=== PATIENT | male | born 1970 | race Caucasian/White ===

== ENCOUNTER 2020-03-12 16:21 | Inpatient (IN) | payer OTHER, SELFPAY ==
[2020-03-14 02:54] VITALS: BMI 10.1
--- NOTE | 2020-03-15 | US_ITS ---
EXAMINATION: NONINVASIVE ASSESSMENT OF THE ARTERIES OF BOTH LOWER EXTREMITIES WITH PVR EXAM AND BILATERAL LOWER EXTREMITY DUPLEX Nathan Byrd MD CLINICAL INFORMATION: Nonhealing ulcer TECHNIQUE: Ankle pulse volume recordings, ankle pressure measurements and ankle brachial indices were obtained of the lower extremity arterial system bilaterally in addition to duplex Doppler techniques with wave form analysis and measurement of velocities in the common femoral, profunda femoral, superficial femoral, popliteal and tibial arteries. The study was performed only at rest. COMPARISON: None FINDINGS: AT REST: Right Le. The right ankle-brachial index is: 0.98 * >0.97-1.25 = normal - no significant arterial disease * 0.75-0.96 = mild peripheral arterial disease * 0.5-0.74 = moderate peripheral arterial disease * <0.50 = severe peripheral arterial disease 2. Right ankle pressure: normal. 3. Right ankle PVR waveform: normal. 4. Right direct duplex Doppler findings: Velocities in cm/sec and phasicity as well as the presence of plaque are reported below. Minimal plaque is present. Normal triphasic flow noted throughout with the exception of the tibial vessels that demonstrate biphasic flow. Common Femoral: 90 Profunda Femoris: 68 Proximal SFA: 95 Mid SFA: 86 Distal SFA: 73 Popliteal: 119 Tibial: 20 Left Le. The left ankle-brachial index is: 1.10 * >0.97-1.25 = normal - no significant arterial disease * 0.75-0.96 = mild peripheral arterial disease * 0.5-0.74 = moderate peripheral arterial disease * <0.50 = severe peripheral arterial disease 2. Left ankle pressure: normal. 3. Left ankle PVR waveform: normal. 4. Left direct duplex Doppler findings: Velocities in cm/sec and phasicity as well as the presence of plaque are reported below. Minimal plaque is present. Normal triphasic flow noted throughout with the exception of the tibial vessels that demonstrate biphasic flow. Common Femoral: 119 Profunda Femoris: 72 Proximal SFA: 80 Mid SFA: 106 Distal SFA: 81 Popliteal: 65 Tibial: 30 IMPRESSION: There is no evidence of any hemodynamically significant lower extremity arterial disease by pressure, waveform or duplex Doppler criteria at rest.
[2020-03-15 04:00] VITALS: BP 140/76; PULSE 67; RESP 18; TEMP 36.7; O2SAT 98
[2020-03-15] MEDS: Heparin Sodium,Porcine 5,000 UNIT/ML VIAL 5000 UNIT SUBCUT (06:10)
[2020-03-15] MEDS: Doxycycline Hyclate 100 MG in 0.9 % Sodium Chloride 250 ML 250 MG IV ×2 (06:10→17:27)
[2020-03-15 07:35] LABS: Glucose, Whole Blood 85 mg/dL (60-115)
[2020-03-15 08:00] VITALS: BP 118/73; PULSE 81; RESP 18; TEMP 36.6; O2SAT 98
--- NOTE | 2020-03-15 09:15 | MHC.CM.PN ---
CM received call from Lauri at [facility] who is willing to accept patient. Manually faxed referral since they don't have full capability in [employer]. . CM will continue to follow patient for discharge needs.
--- NOTE | 2020-03-15 11:02 | P.CONNP_ITS ---
History of Present Illness Reason for Consult Consult date: 03/15/20 Reason for consult: CKD Chief Complaint Chief complaint: Osteomyelitis History of Present Illness Narrative: Raheem is 49/M had ESRD due to diabetic nephropathy. He received a LURD from in January 2017. He has done well with stable creat of 1.5 mg/dl. He has no arthralgias, rash or fevers. BP is well controlled on lisinopril 10mg QD and amlodipine 5mg QD. immunospuression , he is on MMF 180mg 3 tabs BID, and tacro 3-3. Admitted with foot ulcers Cr was 1.58 and has decreased to 1.2 with hydration Review of Systems Review of Systems Yes all other systems are reviewed and are negative Constitutional: Denies chills Reports Normal hearing present Cardiovascular: Denies chest pain at rest and Denies dyspnea Respiratory: Denies dyspnea Gastrointestinal: Denies nausea Reports Normal hearing present [facility] Social History Social History (Updated 03/15/20 @ 10:57 by Roverto Nowak MD) Smoking Status: Never smoker Currently Displaying Signs/Symptoms of Drug Intoxication Withdrawal: No Advance Directives: No Advance Directives Information Provided: No Do you have thoughts of harming others: None Do you have a plan to hurt others: No Plan Meds Allergies Allergy/AdvReac Type Severity Reaction Status Date / Time No Known Allergies* Allergy Uncoded 03/12/20 12:15 Home Medications Medication Instructions Recorded Confirmed Type amlodipine [Norvasc] 5 mg PO DAILY 03/14/20 03/14/20 History aspirin [Aspirin Low Dose] 81 mg PO DAILY 03/14/20 03/14/20 History calcifediol [Rayaldee] 30 mcg PO BEDTIME 03/14/20 03/14/20 History clotrimazole-betamethasone 1 applic TOPICAL BID 03/14/20 03/14/20 History insulin aspart U-100 [Novolog See Protocol SUBCUT TID 03/14/20 03/14/20 History Flexpen U-100 Insulin] insulin glargine [Lantus Solostar 5 unit SUBCUT DAILY@1200 03/14/20 03/14/20 History U-100 Insulin] insulin glargine [Lantus Solostar 28 unit SUBCUT DAILY@1800 03/14/20 03/14/20 History U-100 Insulin] lisinopril 20 mg PO DAILY 03/14/20 03/14/20 History mycophenolate sodium 540 mg PO BID 03/14/20 03/14/20 History tacrolimus [Prograf] 4 mg PO BID 03/14/20 03/14/20 History Physical Exam Vital Signs and I&O: Vital Signs Temp 97.9 F 03/15/20 08:00 Pulse 81 03/15/20 08:00 Resp 18 03/15/20 08:00 BP 118/73 03/15/20 08:00 Pulse Ox 98 03/15/20 08:00 Intake & Output 03/14/20 03/15/20 03/15/20 18:59 06:59 18:59 Intake Total 240 / 240 490 / 490 Balance 240 / 240 490 / 490 Intake: Intake, Oral Amount 240 / 240 240 / 240 Intake, IV Amount 250 / 250 Doxycycline Hyclate 100 mg In 0 250 / 250 .9 % Sodium Chloride 250 ml @ 250 mls/hr IV Q12H [facility] Rx#: [id number] Other: Breakfast % Eaten 100% Urine Bathroom Body Mass Index 10.1 Const General: cooperative Orientation/consciousness: oriented to person HENMT Head: Yes normal to inspection Chest Chest palpation & inspection: normal inspection of the chest Resp Effort & Inspection: normal respiratory effort Cardio Jugular venous distension: no JVD Heart sounds: no murmurs GI Inspection: Yes normal to inspection Auscultation: normal bowel sounds Neuro General: oriented to person Cranial nerves: Yes Normal hearing present Motor exam (neuro): no asterixis Results Lab Results Result Diagrams: 03/16/20 05:14 03/16/20 05:14 Lab results: Chemistry 03/12/20 03/13/20 03/14/20 13:19 05:29 05:28 Sodium 137 137 136 Potassium 4.7 4.3 4.2 BUN 20 H 18 H 21 H Creatinine 1.58 H 1.37 1.24 Calcium 8.4 8.8 Hematology 03/12/20 03/13/20 03/14/20 13:19 05:29 05:28 WBC 7.9 7.9 8.1 Hgb 13.3 L 13.5 L 13.7 L Plt Count 233 217 230 Urinalysis 03/12/20 22:58 Urine Color YELLOW Urine Appearance CLEAR Urine pH 6.0 Ur Specific [place] 1.025 Urine Protein TRACE Urine Glucose (UA) NEG Urine Ketones NEG Urine Blood NEG Urine Nitrite NEG Assessment and Plan (1) ESRD (end stage renal disease): Status: Inactive (2) Osteomyelitis: Status: Acute On antibiotics pe rID (3) Kidney transplant recipient: Problem details: Cr close to baseline Status: Chronic Tacro level ordered Avoid nephrotoxins (4) Diabetes 1.5, managed as type 2: Status: Acute (5) HTN (hypertension): Status: Acute BP acceptable No [facility]
[2020-03-15] MEDS: lisinopriL 20 MG TABLET PO (11:04)
[2020-03-15] MEDS: amLODIPine Besylate 5 MG TABLET PO (11:04)
[2020-03-15] MEDS: Tacrolimus 1 MG CAPSULE 4 MG PO ×2 (11:05→23:10)
[2020-03-15] MEDS: Aspirin Enteric Coated 81 MG TABLET.DR PO (11:05)
[2020-03-15] MEDS: 0.9 % Sodium Chloride Flush 3 ML SYRINGE 2 ML IVFLUSH ×3 (11:06→16:31)
[2020-03-15] MEDS: Mycophenolate Sodium 180 MG TABLET.DR 540 MG PO ×2 (11:13→23:00)
[2020-03-15 11:19] LABS: Glucose, Whole Blood 126 mg/dL (60-115)
[2020-03-15 12:00] VITALS: BP 105/70; PULSE 79; RESP 18; TEMP 36.6; O2SAT 98
[2020-03-15] MEDS: Insulin Glargine,Hum.rec.anlog 100 UNIT/ML 10 ML VIAL SUBCUT (12:24)
--- NOTE | 2020-03-15 13:56 | HO.PM.IMPN ---
Subjective Subjective Date of Service: 03/15/20 Interval History: patient admitted for bilateral toe ulceration patient noted worsening of left big toe swelling patient and family concern about continued use of antibiotic and awaiting for nephrology evaluation, patient denies foot pain denies any fever chills no decrease in says stations no other acute issues overnight. Review of Systems Review of systems General patient denies fever chills CVS no chest pain, no palpitation Gastrointestinal no abdominal pain, no nausea vomiting Physical Exam Vital Signs and I&O and Narrative: Vital Signs and I&O: Vital Signs Temp 97.8 F 03/15/20 12:00 Pulse 79 03/15/20 12:00 Resp 18 03/15/20 12:00 BP 105/70 03/15/20 12:00 Pulse Ox 98 03/15/20 12:00 Intake & Output 03/14/20 03/15/20 03/15/20 18:59 06:59 18:59 Intake Total 240 / 240 490 / 490 Balance 240 / 240 490 / 490 Intake: Intake, Oral Ray unt 240 / 240 240 / 240 Intake, IV Amoun t 250 / 250 Doxycycline Hy clate 100 mg In 0 250 / 250 .9 % Sodium Ch loride 250 ml @ 250 mls/hr IV Q12H [facility] Rx#: [id number] Other: Breakfast % Eate n 100% Lunch % Eaten 100% Urine Bathroom Body Mass Index 10.1 Constitutional Awake and Alert, No apparent distress Neck Normal inspection, Supple Cardiovascular RRR, S1 S2 Respiratory Lungs clear, Normal lung expansion Gastrointestinal Normal bowel sounds, Non tender Left extremities Left big toe swollen , no worsening swelling no fluctuation, no open ulcers, dry skin and scabs Skin Warm/Dry, No rash Neurological Alert & oriented x3, No focal deficit Objective Data Current Medications Generic Name Dose Route Start Last Admin Trade Name Freq PRN Reason Stop Dose Admin Acetaminophen 650 mg 03/15/20 00:00 Acetaminophen 325 Mg Tablet PO Q6H PRN FEVER/PAIN,MILD (SCALE 1-3) Amlodipine Besylate 5 mg 03/15/20 09:00 03/15/20 11:04 Amlodipine Besylate 5 Mg Tablet PO 5 mg DAILY VERNA Administration Protocol Aspirin 81 mg 03/15/20 09:00 03/15/20 11:05 Aspirin Enteric Coated 81 Mg Tablet. PO 81 mg DAILY VERNA Administration Heparin Sodium (Porcine) 5,000 unit 03/15/20 01:00 03/15/20 06:10 Heparin Sodium,Porcine 5,000 Unit/Ml Vial SUBCUT 5,000 unit Q12H [facility] Administration Doxycycline Hyclate 100 mg/ 250 mls @ 250 mls/hr 03/15/20 06:00 03/15/20 07:56 Sodium Chloride IV Infused Q12H [facility] Infusion Cefepime HCl 1 gm/ Sodium 50 mls @ 100 mls/hr 03/15/20 14:00 Chloride IV Q24H [facility] Insulin Glargine 5 unit 03/15/20 12:00 03/15/20 12:24 Insulin Glargine,Hum.Rec.Anlog 100 Unit/Ml 10 Ml Vial SUBCUT 5 unit DAILY@1200 [facility] Administration Insulin Glargine 28 unit 03/15/20 18:00 Insulin Glargine,Hum.Rec.Anlog 100 Unit/Ml 10 Ml Vial SUBCUT DAILY@1800 [facility] Insulin Human Lispro 0 unit 03/15/20 08:00 03/15/20 12:24 Insulin Lispro 100 Unit/Ml 3 Ml Vial SUBCUT Not Given QIDACHS [facility] Protocol Lisinopril 20 mg 03/15/20 09:00 03/15/20 11:04 Lisinopril 20 Mg Tablet PO 20 mg DAILY [facility] Administration Mycophenolate Sodium 540 mg 03/15/20 09:00 03/15/20 11:13 Mycophenolate Sodium 180 Mg Tablet. PO 540 mg BID [facility] Administration Patient Own 1 each 03/15/20 21:00 Medication ( PO Calcifediol 30 Mcg) BEDTIME [facility] Ondansetron HCl 4 mg 03/15/20 00:00 Ondansetron Hcl 4 Mg/2 Ml Vial IVPUSH Q8H PRN Nausea and Vomiting Senna 17.2 mg 03/15/20 00:00 Sennosides 8.6 Mg Tablet PO DAILY PRN Constipation Sodium Chloride 2 ml 03/15/20 00:00 03/15/20 11:06 0.9 % Sodium Chloride Flush 3 Ml Syringe IVFLUSH 2 ml QSHIFT [facility] Administration Tacrolimus 4 mg 03/15/20 09:00 03/15/20 11:05 Tacrolimus 1 Mg Capsule PO 4 mg BID [facility] Administration Labs CBC & Chem 7: 03/14/20 05:28 03/14/20 05:28 Labs: Laboratory Results - last 24 hr 03/12/20 03/12/20 03/12/20 13:19 13:19 14:00 MCV 90.6 MCH 29.8 MCHC 32.9 RDW Coeff of Gabriel 12.6 Plt Count 233 MPV 11.8 Immature Gran % (Auto) 3.2 H Neut % (Auto) 66.8 Lymph % (Auto) 14.7 L [place] % (Auto) 13.8 H Eos % (Auto) 1.1 Baso % (Auto) 0.4 Abs Immat Gran (auto) 0.25 H Absolute Lymphs (auto) 1.2 Absolute Monos (auto) 1.1 Absolute Eos (auto) 0.1 Absolute Basos (auto) 0.0 Absolute Nucleated RBC 0.000 Nucleated RBC % (auto) 0.0 Absolute Neutrophils 5.3 Bicarbonate 26 Anion Gap 11 L Estimated Creat Clear 65.0 Est GFR (Non-Af Amer) 47 POC Glucose Random Glucose 221 H Fasting Glucose Lactic Acid 0.9 Calcium Total Bilirubin 0.6 Direct Bilirubin 0.2 AST 12 ALT 13 Alkaline Phosphatase 107 Total Protein 7.3 Albumin 3.9 Lipase 49 Urine Color Urine Appearance Urine pH Ur Specific [place] Urine Protein Urine Glucose (UA) Urine Ketones Urine Blood Urine Nitrite Urine WBC (Auto) Nasal Screen MRSA (PCR) Nasal S. aureus Screen Nasal MRSA/S.aureus Interp Tacrolimus 03/12/20 03/12/20 03/12/20 17:37 20:57 21:17 MCV MCH MCHC RDW Coeff of Gabriel Plt Count MPV Immature Gran % (Auto) Neut % (Auto) Lymph % (Auto) Addison % (Auto) Eos % (Auto) Baso % (Auto) Abs Immat Gran (auto) Absolute Lymphs (auto) Absolute Monos (auto) Absolute Eos (auto) Absolute Basos (auto) Absolute Nucleated RBC Nucleated RBC % (auto) Absolute Neutrophils Bicarbonate Anion Gap Estimated Creat Clear Est GFR (Non-Af Amer) POC Glucose 150 H 171 H Random Glucose Fasting Glucose Lactic Acid Calcium Total Bilirubin Direct Bilirubin AST ALT Alkaline Phosphatase Total Protein Albumin Lipase Urine Color Urine Appearance Urine pH Ur Specific [place] Urine Protein Urine Glucose (UA) Urine Ketones Urine Blood Urine Nitrite Urine WBC (Auto) Nasal Screen MRSA (PCR) NEGATIVE Nasal S. aureus Screen POSITIVE Nasal MRSA/S.aureus Interp SEE NOTE Tacrolimus 03/12/20 03/13/20 03/13/20 22:58 05:29 05:29 MCV 90.3 MCH 29.2 MCHC 32.4 RDW Coeff of Gabriel 12.7 Plt Count 217 MPV 11.9 Immature Gran % (Auto) 2.5 H Neut % (Auto) 59.6 Lymph % (Auto) 19.5 L [place]ison % (Auto) 16.0 H Eos % (Auto) 2.0 Baso % (Auto) 0.4 Abs Immat Gran (auto) 0.20 H Absolute Lymphs (auto) 1.5 Absolute Monos (auto) 1.3 H Absolute Eos (auto) 0.2 Absolute Basos (auto) 0.0 Absolute Nucleated RBC 0.000 Nucleated RBC % (auto) 0.0 Absolute Neutrophils 4.7 Bicarbonate 24 Anion Gap 11 L Estimated Creat Clear 74.2 Est GFR (Non-Af Amer) 55 POC Glucose Random Glucose Fasting Glucose 127 H Lactic Acid Calcium 8.4 Total Bilirubin Direct Bilirubin AST ALT Alkaline Phosphatase Total Protein Albumin Lipase Urine Color YELLOW Urine Appearance CLEAR Urine pH 6.0 Ur Specific [place] 1.025 Urine Protein TRACE Urine Glucose (UA) NEG Urine Ketones NEG Urine Blood NEG Urine Nitrite NEG Urine WBC (Auto) NEG Nasal Screen MRSA (PCR) Nasal S. aureus Screen Nasal MRSA/S.aureus Interp Tacrolimus 03/13/20 03/13/20 03/13/20 07:57 11:37 16:47 MCV MCH MCHC RDW Coeff of Gabriel Plt Count MPV Immature Gran % (Auto) Neut % (Auto) Lymph % (Auto) [place] % (Auto) Eos % (Auto) Baso % (Auto) Abs Immat Gran (auto) Absolute Lymphs (auto) Absolute Monos (auto) Absolute Eos (auto) Absolute Basos (auto) Absolute Nucleated RBC Nucleated RBC % (auto) Absolute Neutrophils Bicarbonate Anion Gap Estimated Creat Clear Est GFR (Non-Af Amer) POC Glucose 114 133 H 133 H Random Glucose Fasting Glucose Lactic Acid Calcium Total Bilirubin Direct Bilirubin AST ALT Alkaline Phosphatase Total Protein Albumin Lipase Urine Color Urine Appearance Urine pH Ur Specific [place] Urine Protein Urine Glucose (UA) Urine Ketones Urine Blood Urine Nitrite Urine WBC (Auto) Nasal Screen MRSA (PCR) Nasal S. aureus Screen Nasal MRSA/S.aureus Interp Tacrolimus 03/13/20 03/14/20 03/14/20 21:32 05:28 05:28 MCV 89.5 MCH 29.3 MCHC 32.7 RDW Coeff of Gabriel 12.6 Plt Count 230 MPV 12.4 Immature Gran % (Auto) 2.7 H Neut % (Auto) 59.4 Lymph % (Auto) 21.2 [place] % (Auto) 14.3 H Eos % (Auto) 2.0 Baso % (Auto) 0.4 Abs Immat Gran (auto) 0.22 H Absolute Lymphs (auto) 1.7 Absolute Monos (auto) 1.2 Absolute Eos (auto) 0.2 Absolute Basos (auto) 0.0 Absolute Nucleated RBC 0.000 Nucleated RBC % (auto) 0.0 Absolute Neutrophils 4.8 Bicarbonate 23 Anion Gap 11 L Estimated Creat Clear 82.0 Est GFR (Non-Af Amer) > 60 POC Glucose 184 H Random Glucose 110 D Fasting Glucose Lactic Acid Calcium 8.8 Total Bilirubin Direct Bilirubin AST ALT Alkaline Phosphatase Total Protein Albumin Lipase Urine Color Urine Appearance Urine pH Ur Specific [place] Urine Protein Urine Glucose (UA) Urine Ketones Urine Blood Urine Nitrite Urine WBC (Auto) Nasal Screen MRSA (PCR) Nasal S. aureus Screen Nasal MRSA/S.aureus Interp Tacrolimus 03/14/20 03/14/20 03/14/20 07:15 11:17 16:29 MCV MCH MCHC RDW Coeff of Gabriel Plt Count MPV Immature Gran % (Auto) Neut % (Auto) Lymph % (Auto) [place] % (Auto) Eos % (Auto) Baso % (Auto) Abs Immat Gran (auto) Absolute Lymphs (auto) Absolute Monos (auto) Absolute Eos (auto) Absolute Basos (auto) Absolute Nucleated RBC Nucleated RBC % (auto) Absolute Neutrophils Bicarbonate Anion Gap Estimated Creat Clear Est GFR (Non-Af Amer) POC Glucose 118 H 161 H 146 H Random Glucose Fasting Glucose Lactic Acid Calcium Total Bilirubin Direct Bilirubin AST ALT Alkaline Phosphatase Total Protein Albumin Lipase Urine Color Urine Appearance Urine pH Ur Specific [place] Urine Protein Urine Glucose (UA) Urine Ketones Urine Blood Urine Nitrite Urine WBC (Auto) Nasal Screen MRSA (PCR) Nasal S. aureus Screen Nasal MRSA/S.aureus Interp Tacrolimus 03/14/20 03/15/20 03/15/20 21:20 06:00 07:32 MCV MCH MCHC RDW Coeff of Gabriel Plt Count MPV Immature Gran % (Auto) Neut % (Auto) Lymph % (Auto) [place] % (Auto) Eos % (Auto) Baso % (Auto) Abs Immat Gran (auto) Absolute Lymphs (auto) Absolute Monos (auto) Absolute Eos (auto) Absolute Basos (auto) Absolute Nucleated RBC Nucleated RBC % (auto) Absolute Neutrophils Bicarbonate Anion Gap Estimated Creat Clear Est GFR (Non-Af Amer) POC Glucose 127 H 85 Random Glucose Fasting Glucose Lactic Acid Calcium Total Bilirubin Direct Bilirubin AST ALT Alkaline Phosphatase Total Protein Albumin Lipase Urine Color Urine Appearance Urine pH Ur Specific [place] Urine Protein Urine Glucose (UA) Urine Ketones Urine Blood Urine Nitrite Urine WBC (Auto) Nasal Screen MRSA (PCR) Nasal S. aureus Screen Nasal MRSA/S.aureus Interp Tacrolimus Not Rcvd 03/15/20 11:16 MCV MCH MCHC RDW Coeff of Gabriel Plt Count MPV Immature Gran % (Auto) Neut % (Auto) Lymph % (Auto) [place] % (Auto) Eos % (Auto) Baso % (Auto) Abs Immat Gran (auto) Absolute Lymphs (auto) Absolute Monos (auto) Absolute Eos (auto) Absolute Basos (auto) Absolute Nucleated RBC Nucleated RBC % (auto) Absolute Neutrophils Bicarbonate Anion Gap Estimated Creat Clear Est GFR (Non-Af Amer) POC Glucose 126 H Random Glucose Fasting Glucose Lactic Acid Calcium Total Bilirubin Direct Bilirubin AST ALT Alkaline Phosphatase Total Protein Albumin Lipase Urine Color Urine Appearance Urine pH Ur Specific [place] Urine Protein Urine Glucose (UA) Urine Ketones Urine Blood Urine Nitrite Urine WBC (Auto) Nasal Screen MRSA (PCR) Nasal S. aureus Screen Nasal MRSA/S.aureus Interp Tacrolimus
--- NOTE | 2020-03-15 14:18 | PM.EVENT ---
Event Note Event Note: full consult dictated noninvasive arterial testing ordered
[2020-03-15] MEDS: cefEPime HCl 1 GM in 0.9 % Sodium Chloride 50 ML IV (15:31)
[2020-03-15 15:48] VITALS: BP 130/80; PULSE 78; RESP 18; TEMP 36.5; O2SAT 99
[2020-03-15 16:25] LABS: Glucose, Whole Blood 128 mg/dL (60-115)
[2020-03-15 18:51] VITALS: BP 131/83; PULSE 85; RESP 18; TEMP 36.9; O2SAT 100
[2020-03-15 20:07] LABS: Glucose, Whole Blood 100 mg/dL (60-115)
[2020-03-15 21:30] LABS: Glucose, Whole Blood 165 mg/dL (60-115)
[2020-03-16] VITALS (9 sets, daily range): BP systolic 105–157; BP diastolic 56–80; PULSE 72–102; RESP 16–20; TEMP 36.6–37.4; O2SAT 97–100
--- NOTE | 2020-03-16 | IR_ITS ---
PROCEDURE: FLUOROSCOPY AND ULTRASOUND-GUIDED LIRIANO PLACEMENT CLINICAL INFORMATION: Osteomyelitis of the foot. COMPARISON: None TECHNIQUE: Following explaining ultrasound fluoroscopy-guided tunneled right jugular access and placement procedure, benefits and risk a written consent was obtained from the patient. All elements of maximal sterile barrier technique followed including use of cap, mask, sterile gown, sterile gloves, a sterile full body drape and hand hygiene. Also followed skin preparation with 2% chlorhexidine for cutaneous antisepsis, and sterile ultrasound preparation with sterile gel and probe cover when applicable. 1% lidocaine was injected in the right neck where a marker was placed under preliminary ultrasound imaging. A single wall needle was advanced under sterile ultrasound guidance and right jugular vein was punctured. After obtaining venous return a thin guidewire was advanced through the needle under fluoroscopy and needle withdrawn. A 3-Burkinan dilator was placed over the guidewire and anchored to the drape. Approximately 1 gauze length from the right neck incision in the right anterior chest wall 1% lidocaine was injected. A tract from the right anterior chest wall to the right neck was anesthetized with 1% lidocaine. Through a small skin incision a tunneler connected to the catheter was inserted from anterior chest skin incision and advanced to the right neck incision. The tunneler and the catheter was pulled out through the neck incision. The small 0.125 wire was removed and a 0.315 J-wire was inserted under fluoroscopy passed the heart into the IVC and the 3-Burkinan dilator was removed. An 8.5 Burkinan dilator sheath was inserted and the dilator and the guidewire were withdrawn. The catheter was sized and inserted through the peel-away sheath. As the peel-away sheath was removed the catheter was advanced and held in place. The sheath was completely removed and the catheter position was confirmed with fluoroscopy in the SVC. 3-0 absorbable sutures were placed along the right neck and along the right chest wall around the catheter to achieve small bleeding. Sterile dressing applied at the right anterior chest wall and the right neck position. IV conscious sedation was given during exam. Patient tolerated the procedure extremely well. FINDINGS: Preliminary ultrasound imaging of the right jugular vein is patent. Successful ultrasound and fluoroscopy-guided placement of 24 cm long 5-Burkinan single lumen Liriano catheter. Under fluoroscopy the catheter tip is in mid SVC. The catheter is ready for use. IMPRESSION: Successful ultrasound and fluoroscopy-guided placement of 24 cm long 5-Burkinan Liriano catheter. The catheter is ready for use.
--- NOTE | 2020-03-16 | IR_ITS ---
PROCEDURE: FLUOROSCOPY AND ULTRASOUND-GUIDED LIRIANO PLACEMENT CLINICAL INFORMATION: Osteomyelitis of the foot. COMPARISON: None TECHNIQUE: Following explaining ultrasound fluoroscopy-guided tunneled right jugular access and placement procedure, benefits and risk a written consent was obtained from the patient. All elements of maximal sterile barrier technique followed including use of cap, mask, sterile gown, sterile gloves, a sterile full body drape and hand hygiene. Also followed skin preparation with 2% chlorhexidine for cutaneous antisepsis, and sterile ultrasound preparation with sterile gel and probe cover when applicable. 1% lidocaine was injected in the right neck where a marker was placed under preliminary ultrasound imaging. A single wall needle was advanced under sterile ultrasound guidance and right jugular vein was punctured. After obtaining venous return a thin guidewire was advanced through the needle under fluoroscopy and needle withdrawn. A 3-Mongolian dilator was placed over the guidewire and anchored to the drape. Approximately 1 gauze length from the right neck incision in the right anterior chest wall 1% lidocaine was injected. A tract from the right anterior chest wall to the right neck was anesthetized with 1% lidocaine. Through a small skin incision a tunneler connected to the catheter was inserted from anterior chest skin incision and advanced to the right neck incision. The tunneler and the catheter was pulled out through the neck incision. The small 0.125 wire was removed and a 0.315 J-wire was inserted under fluoroscopy passed the heart into the IVC and the 3-Mongolian dilator was removed. An 8.5 Mongolian dilator sheath was inserted and the dilator and the guidewire were withdrawn. The catheter was sized and inserted through the peel-away sheath. As the peel-away sheath was removed the catheter was advanced and held in place. The sheath was completely removed and the catheter position was confirmed with fluoroscopy in the SVC. 3-0 absorbable sutures were placed along the right neck and along the right chest wall around the catheter to achieve small bleeding. Sterile dressing applied at the right anterior chest wall and the right neck position. IV conscious sedation was given during exam. Patient tolerated the procedure extremely well. FINDINGS: Preliminary ultrasound imaging of the right jugular vein is patent. Successful ultrasound and fluoroscopy-guided placement of 24 cm long 5-Mongolian single lumen Liriano catheter. Under fluoroscopy the catheter tip is in mid SVC. The catheter is ready for use. IMPRESSION: Successful ultrasound and fluoroscopy-guided placement of 24 cm long 5-Mongolian Liriano catheter. The catheter is ready for use.
--- NOTE | 2020-03-16 01:17 | CONS_ITS ---
DATE OF SERVICE: 03/15/2020 REASON FOR CONSULTATION: Nonhealing left great toe ulceration. HISTORY OF PRESENT ILLNESS: This is a 50-year-old gentleman with a longstanding history of diabetes for nearly 15 years in addition to a kidney transplant. He has had this nonhealing left great toe ulcer for what he reports 3 to 4 weeks. He noted this while he was moving. He was seen by local radiology transporter and subsequently sent over for evaluation. He now presents to us for vascular evaluation. PAST MEDICAL HISTORY: Includes hypertension, hyperlipidemia, long-standing diabetes, chronic kidney disease, diabetic neuropathy, and heart failure. PAST SURGICAL HISTORY: Includes renal transplant from live donor which was his in addition to prior AV fistulas. MEDICATIONS: Medication list was reviewed per nursing MAR. ALLERGIES: HE HAS NO KNOWN DRUG ALLERGIES. SOCIAL HISTORY: Lives with his . Nonsmoker, nondrinker, but morbidly obese in the past. 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 FAMILY HISTORY: No history of advanced coronary artery disease or peripheral vascular disease. REVIEW OF SYSTEMS: A 13-point review was performed. At the current time, denies any headache, dizziness, nausea, vomiting, diarrhea, or shortness of breath. He denies any significant pain in that left lower extremity. Rest of 13-point review was essentially negative. PHYSICAL EXAMINATION: VITAL SIGNS: Afebrile. Vitals stable. HEAD AND NECK: Demonstrates no bruits. CHEST: Moving air bilaterally. CARDIAC: Positive S1, S2. ABDOMEN: Soft. EXTREMITIES: Upper extremities have good radial and ulnar pulses. Lower extremities, the right side has a palpable DP. Left side, it is a questionable faint left dorsalis pedis pulse. SKIN: Ulcer noted on the left great toe. On the medial aspect, there appears to be a dry eschar, more so on the plantar tip. There is an opening that penetrates all the way to bone. LABORATORY DATA: Last white count is 7.9. Plain film x-ray, dated 03/12/2020, consistent with osteomyelitis. IMPRESSION: Diabetic foot ulcer with underlying osteomyelitis. There is a concern of some peripheral vascular disease. At the current time, would recommend noninvasive arterial testing. It is a small ulcer on the great toe. I do believe that he would benefit from long-term IV antibiotics and conservative care as any intervention may harm the renal transplant. Would be cautious with that as well. We will follow up with noninvasive testing. Thank you for allowing us to assist in this patient's care. If there are questions or concerns, please do not hesitate to contact us. MD CHRIS Iqbal/ANITA / [phone]
[2020-03-16] MEDS: Doxycycline Hyclate 100 MG in 0.9 % Sodium Chloride 250 ML 250 MG IV ×2 (05:19→17:20)
[2020-03-16 06:32] LABS: MANUAL DIFF FLAG NO
[2020-03-16 06:58] LABS: Anion Gap 11 (12-20); Blood Urea Nitrogen 21 mg/dL (9-16); Calcium 8.7 mg/dL (8.4-10.2); Carbon Dioxide 23 mmol/L (22-29); Chloride 106 mmol/L (96-108); Estimated Glomerular Filt Rate 56; Glucose Random 100 mg/dL (60-115); Potassium 4.4 mmol/l (3.3-5.1); Sodium 136 mmol/L (135-145)
[2020-03-16 07:06] LABS: INTERNATIONAL NORM RATIO 1.2 (0.9-1.1)
[2020-03-16 07:09] LABS: Basophils Percent Auto 0.5 % (0-2); Eosinophils Absolute Auto 0.1 X10*3/uL (0.0-0.4); Eosinophils Percent Auto 1.6 % (0-4); Hematocrit 40.3 % (42-52); Hemoglobin 13.1 g/dl (14.0-18.0); Imm Gran Pct Auto 2.3 % (0.0-0.4); Lymphocytes Absolute Auto 1.6 X10*3/uL (1.2-4.9); Mean Corpuscular HGB Conc 32.5 g/dl (31.0-36.0); Mean Corpuscular Hemoglobin 29.2 pg (27.0-33.0); Mean Corpuscular Volume 89.8 fL (80-98); Mean Platelet Volume 12.2 fL (9.4-12.4); Monocytes Absolute Auto 1.3 X10*3/uL (0.1-1.2); Monocytes Percent Auto 14.5 % (2-11); Neutrophils Absolute Auto 5.4 X10*3/uL (2.0-8.3); Neutrophils Percent Auto 62.1 % (45-73); Platelet Count 261 X10*3/uL (160-400); Red Blood Count 4.49 X10*6/uL (4.60-5.80); Red Cell Distribution Width 12.4 % (11.0-16.0); White Blood Count 8.7 X10*3/uL (4.8-10.8)
[2020-03-16 07:33] LABS: Glucose, Whole Blood 118 mg/dL (60-115)
[2020-03-16] MEDS: 0.9 % Sodium Chloride Flush 3 ML SYRINGE 2 ML IVFLUSH ×3 (07:33→17:19)
[2020-03-16 08:02] LABS: Prothrombin Time 13.8 SEC (10.8-13.0)
[2020-03-16] MEDS: amLODIPine Besylate 5 MG TABLET PO (08:39)
[2020-03-16] MEDS: Mycophenolate Sodium 180 MG TABLET.DR 540 MG PO ×2 (08:39→21:20)
[2020-03-16] MEDS: lisinopriL 20 MG TABLET PO (08:40)
[2020-03-16] MEDS: Tacrolimus 1 MG CAPSULE 4 MG PO ×2 (08:40→21:18)
[2020-03-16 10:01] LABS: Tacrolimus Prograf 6.1 mcg/L
--- NOTE | 2020-03-16 10:51 | PM.PNNEP ---
Subjective Subjective Interval history: patient admitted for bilateral toe ulceration patient noted worsening of left big toe swelling patient and family concern about continued use of antibiotic and awaiting for nephrology evaluation, patient denies foot pain denies any fever chills no decrease in says stations no other acute issues overnight. Physical Exam Vital Signs and I&O and Narrative: Vital Signs and I&O: Vital Signs Temp 98.1 F 03/16/20 03:41 Pulse 73 03/16/20 08:40 Resp 16 03/16/20 03:41 BP 123/56 L 03/16/20 08:40 Pulse Ox 100 03/16/20 03:41 Intake & Output 03/15/20 03/16/20 03/16/20 18:59 06:59 18:59 Intake Total 1270 / 2000 730 / 2000 Output Total 900 / 900 Balance 1270 / 1100 -170 / 1100 Urine Output (Aver age ml/kg/hr) 2.42 2.42 Intake: Intake, Oral Ray unt 720 / 1200 480 / 1200 Intake, IV Amoun t 550 / 800 250 / 800 Doxycycline Hy clate 100 mg In 0 500 / 750 250 / 750 .9 % Sodium Ch loride 250 ml @ 250 mls/hr IV Q12H [facility] Rx#: [id number] cefEPime HCl 1 gm In 0.9 % 50 / 50 Sodium Chlorid e 50 ml @ 100 mls /hr IV Q24H [facility] Rx#:[id number] Output: Output, Urine Am ount 900 / 900 Other: NPO Yes Breakfast % Eate n 100% Lunch % Eaten 100% Dinner % Eaten 100% Urine Bathroom Bathroom Urine Color Yellow Body Mass Index 10.1 Constitutional Awake and Alert, No apparent distress Neck Normal inspection, Supple Cardiovascular RRR, S1 S2 Respiratory Lungs clear, Normal lung expansion Gastrointestinal Normal bowel sounds, Non tender Left extremities Left big toe swollen , no worsening swelling no fluctuation, no open ulcers, dry skin and scabs Skin Warm/Dry, No rash Neurological Alert & oriented x3, No focal deficit Assessment & Plan Assessment and plan (1) Osteomyelitis: Status: Acute Assessment and Plan: On IV Antibiiotics per ID (2) Diabetes 1.5, managed as type 2: Status: Acute Assessment and Plan: Goal A1C < 7% (3) HTN (hypertension): Status: Acute Assessment and Plan: BP acceptable. (4) Kidney transplant recipient: Problem details: Cr close to baseline Status: Chronic Assessment and Plan: Await [place] levels No changes today
[2020-03-16 11:39] LABS: Glucose, Whole Blood 107 mg/dL (60-115)
--- NOTE | 2020-03-16 11:50 | P.PNGS_ITS ---
Subjective Subjective Patient reports: no new complaints and feels better Interval history: patient seen and examined. No events overnight. Has undergone noninvasive arterial testing. Continues to have this nonhealing left great toe ulcer. Physical Exam Vital Signs and I&O and Narrative: Vital Signs and I&O: Vital Signs Temp 98 F 03/16/20 11:35 Pulse 86 03/16/20 11:35 Resp 18 03/16/20 11:35 BP 157/80 H 03/16/20 11:35 Pulse Ox 99 03/16/20 11:35 Intake & Output 03/15/20 03/16/20 03/16/20 18:59 06:59 18:59 Intake Total 1270 / 2000 730 / 2000 Output Total 900 / 900 Balance 1270 / 1100 -170 / 1100 Urine Output (Aver age ml/kg/hr) 2.42 2.42 Intake: Intake, Oral [place] unt 720 / 1200 480 / 1200 Intake, IV Amoun t 550 / 800 250 / 800 Doxycycline Hy clate 100 mg In 0 500 / 750 250 / 750 .9 % Sodium Ch loride 250 ml @ 250 mls/hr IV Q12H [facility] Rx#: [id number] cefEPime HCl 1 gm In 0.9 % 50 / 50 Sodium Chlorid e 50 ml @ 100 mls /hr IV Q24H [facility] Rx#:[id number] Output: Output, Urine Am ount 900 / 900 Other: NPO Yes Breakfast % Eate n 100% Lunch % Eaten 100% Dinner % Eaten 100% Urine Bathroom Bathroom Urine Color Yellow Body Mass Index 10.1 Const: General: cooperative, healthy appearing and comfortable Neck: Carotids: no bruits Chest: Chest palpation & inspection: normal inspection of the chest and normal palpation of entire chest wall Resp: Effort & Inspection: normal respiratory effort and able to speak in complete sentences Cardio: Rate: regular rate Heart sounds: S1 normal heart sound present and S2 normal heart sound present Skin: Wounds: wounds noted ( Left great toe penetrating to bone) Progress Note: A&P Assessment and plan (1) Osteomyelitis: Status: Acute Assessment and Plan: patient with nonhealing left great toe ulcer. Noninvasive testing demonstrates NOY on the right of 0.98 and on the left of 1.1. Patient will require long-term IV antibiotics for osteomyelitis. Patient will need to be referred to [facility] for hyperbaric oxygen therapy to assist in healing. Patient will be scheduled for visit with wound care center - Who I reached out to. He will follow up with us on an as-needed basis. Thank you for allowing us to assist in his care. Fall Risk Details Current Medications: Current Medications Generic Name Dose Route Start Last Admin Trade Name Freq PRN Reason Stop Dose Admin Acetaminophen 650 mg 03/15/20 00:00 Acetaminophen 325 Mg Tablet PO Q6H PRN FEVER/PAIN,MILD (SCALE 1-3) Amlodipine Besylate 5 mg 03/15/20 09:00 03/16/20 08:39 Amlodipine Besylate 5 Mg Tablet PO 5 mg DAILY [facility] Administration Protocol Doxycycline Hyclate 100 mg/ 250 mls @ 250 mls/hr 03/15/20 06:00 03/16/20 06:40 Sodium Chloride IV Infused Q12H [facility] Infusion Cefepime HCl 1 gm/ Sodium 50 mls @ 100 mls/hr 03/15/20 14:00 03/15/20 16:01 Chloride IV Infused Q24H [facility] Infusion Insulin Glargine 5 unit 03/15/20 12:00 03/15/20 12:24 Insulin Glargine,Hum.Rec.Anlog 100 Unit/Ml 10 Ml Vial SUBCUT 5 unit DAILY@1200 [facility] Administration Insulin Glargine 28 unit 03/15/20 18:00 03/15/20 17:31 Insulin Glargine,Hum.Rec.Anlog 100 Unit/Ml 10 Ml Vial SUBCUT Not Given DAILY@1800 [facility] Insulin Human Lispro 0 unit 03/15/20 08:00 03/16/20 07:36 Insulin Lispro 100 Unit/Ml 3 Ml Vial SUBCUT Not Given QIDACHS [facility] Protocol Lisinopril 20 mg 03/15/20 09:00 03/16/20 08:40 Lisinopril 20 Mg Tablet PO 20 mg DAILY [facility] Administration Mycophenolate Sodium 540 mg 03/15/20 09:00 03/16/20 08:39 Mycophenolate Sodium 180 Mg Tablet. PO 540 mg BID [facility] Administration Patient Own 1 each 03/15/20 21:00 Medication ( PO Calcifediol 30 Mcg) BEDTIME [facility] Ondansetron HCl 4 mg 03/15/20 00:00 Ondansetron Hcl 4 Mg/2 Ml Vial IVPUSH Q8H PRN Nausea and Vomiting Senna 17.2 mg 03/15/20 00:00 Sennosides 8.6 Mg Tablet PO DAILY PRN Constipation Sodium Chloride 2 ml 03/15/20 00:00 03/16/20 07:33 0.9 % Sodium Chloride Flush 3 Ml Syringe IVFLUSH 2 ml QSHIFT [facility] Administration Tacrolimus 4 mg 03/15/20 09:00 03/16/20 08:40 Tacrolimus 1 Mg Capsule PO 4 mg BID [facility] Administration Time Spent With Patient Time: Total time spent is greater than 50% in coordination of care (as documented) at patient's floor/unit and/or counseling patient: Time with patient: 15 - 24 minutes
[2020-03-16] MEDS: Insulin Glargine,Hum.rec.anlog 100 UNIT/ML 10 ML VIAL SUBCUT (12:37)
[2020-03-16] MEDS: cefEPime HCl 1 GM in 0.9 % Sodium Chloride 50 ML IV (14:17)
--- NOTE | 2020-03-16 15:10 | P.PNIM_ITS ---
Subjective Subjective Date of Service: 03/16/20 Interval History: patient admitted for bilateral to ulceration, patient denies any fever chills no toe discomfort today, no drainage from ulcer, no acute issues overnight. Review of Systems [employer]ACHINE [employer]PER[employer] no headache, no dizziness CVS no chest pain, no palpitation gastrointestinal no nausea, no vomiting, no diarrhea skin denies rash Physical Exam Vital Signs and I&O and Narrative: Vital Signs and I&O: Vital Signs Temp 98 F 03/16/20 11:35 Pulse 77 03/16/20 13:22 Resp 19 03/16/20 13:22 BP 107/59 L 03/16/20 13:22 Pulse Ox 97 03/16/20 13:22 Intake & Output 03/15/20 03/16/20 03/16/20 18:59 06:59 18:59 Intake Total 1270 / 2000 730 / 2000 530 / 530 Output Total 900 / 900 Balance 1270 / 1100 -170 / 1100 530 / 530 Urine Output (Aver age ml/kg/hr) 2.42 2.42 Intake: Intake, Oral Ray unt 720 / 1200 480 / 1200 480 / 480 Intake, IV Amoun t 550 / 800 250 / 800 50 / 50 Doxycycline Hy clate 100 mg In 0 500 / 750 250 / 750 .9 % Sodium Ch loride 250 ml @ 250 mls/hr IV Q12H [facility] Rx#: [id number] cefEPime HCl 1 gm In 0.9 % 50 / 50 50 / 50 Sodium Chlorid e 50 ml @ 100 mls /hr IV Q24H [facility] Rx#:[id number] Output: Output, Urine Am ount 900 / 900 Other: NPO Yes Breakfast % Eate n 100% Lunch % Eaten 100% 100% Dinner % Eaten 100% Urine Bathroom Bathroom Urine Color Yellow Body Mass Index 10.1 Constitutional Awake and Alert, No apparent distress Neck Normal inspection, Supple Cardiovascular RRR, S1 S2 Respiratory Lungs clear, Normal lung expansion Gastrointestinal Normal bowel sounds, Non tender Left extremities Left big toe swollen , no worsening swelling no fluctuation, no open ulcers, dry skin and scabs Skin Warm/Dry, No rash Neurological Alert & oriented x3, No focal deficit Objective Data Current Medications Generic Name Dose Route Start Last Admin Trade Name Freq PRN Reason Stop Dose Admin Acetaminophen 650 mg 03/15/20 00:00 Acetaminophen 325 Mg Tablet PO Q6H PRN FEVER/PAIN,MILD (SCALE 1-3) Amlodipine Besylate 5 mg 03/15/20 09:00 03/16/20 08:39 Amlodipine Besylate 5 Mg Tablet PO 5 mg DAILY [facility] Administration Protocol Doxycycline Hyclate 100 mg/ 250 mls @ 250 mls/hr 03/15/20 06:00 03/16/20 06:40 Sodium Chloride IV Infused Q12H [facility] Infusion Cefepime HCl 1 gm/ Sodium 50 mls @ 100 mls/hr 03/15/20 14:00 03/16/20 15:06 Chloride IV Infused Q24H [facility] Infusion Insulin Glargine 5 unit 03/15/20 12:00 03/16/20 12:37 Insulin Glargine,Hum.Rec.Anlog 100 Unit/Ml 10 Ml Vial SUBCUT 5 unit DAILY@1200 [facility] Administration Insulin Glargine 28 unit 03/15/20 18:00 03/15/20 17:31 Insulin Glargine,Hum.Rec.Anlog 100 Unit/Ml 10 Ml Vial SUBCUT Not Given DAILY@1800 [facility] Insulin Human Lispro 0 unit 03/15/20 08:00 03/16/20 12:32 Insulin Lispro 100 Unit/Ml 3 Ml Vial SUBCUT Not Given QIDACHS [facility] Protocol Lisinopril 20 mg 03/15/20 09:00 03/16/20 08:40 Lisinopril 20 Mg Tablet PO 20 mg DAILY [facility] Administration Mycophenolate Sodium 540 mg 03/15/20 09:00 03/16/20 08:39 Mycophenolate Sodium 180 Mg Tablet. PO 540 mg BID [facility] Administration Patient Own 1 each 03/15/20 21:00 Medication ( PO Calcifediol 30 Mcg) BEDTIME [facility] Ondansetron HCl 4 mg 03/15/20 00:00 Ondansetron Hcl 4 Mg/2 Ml Vial IVPUSH Q8H PRN Nausea and Vomiting Senna 17.2 mg 03/15/20 00:00 Sennosides 8.6 Mg Tablet PO DAILY PRN Constipation Sodium Chloride 2 ml 03/15/20 00:00 03/16/20 07:33 0.9 % Sodium Chloride Flush 3 Ml Syringe IVFLUSH 2 ml QSHIFT [facility] Administration Tacrolimus 4 mg 03/15/20 09:00 03/16/20 08:40 Tacrolimus 1 Mg Capsule PO 4 mg BID [facility] Administration Labs CBC & Chem 7: 03/16/20 05:14 03/16/20 05:14 Labs: Laboratory Results - last 24 hr 03/15/20 03/15/20 03/15/20 05:20 16:20 20:02 MCV MCH MCHC RDW Plt Count MPV Immature Gran % (Auto) Neut % (Auto) Lymph % (Auto) [place] % (Auto) Eos % (Auto) Baso % (Auto) Neut # (Auto) Lymph # (Auto) [place] # (Auto) Eos # (Auto) Baso # (Auto) Abs Immat Gran (auto) Absolute Nucleated RBC Nucleated RBC % (auto) PT INR Anion Gap Estim Creat Clear Calc Estimated GFR POC Glucose 128 H 100 Random Glucose Calcium Tacrolimus 6.1 03/15/20 03/16/20 03/16/20 21:06 05:14 05:14 MCV 89.8 MCH 29.2 MCHC 32.5 RDW 12.4 Plt Count 261 MPV 12.2 Immature Gran % (Auto) 2.3 H Neut % (Auto) 62.1 Lymph % (Auto) 19.0 L [place] % (Auto) 14.5 H Eos % (Auto) 1.6 Baso % (Auto) 0.5 Neut # (Auto) 5.4 Lymph # (Auto) 1.6 [place] # (Auto) 1.3 H Eos # (Auto) 0.1 Baso # (Auto) 0.0 Abs Immat Gran (auto) 0.20 H Absolute Nucleated RBC 0.000 Nucleated RBC % (auto) 0.0 PT 13.8 H INR 1.2 H Anion Gap Estim Creat Clear Calc Estimated GFR POC Glucose 165 H Random Glucose Calcium Tacrolimus 03/16/20 03/16/20 03/16/20 05:14 07:22 11:32 MCV MCH MCHC RDW Plt Count MPV Immature Gran % (Auto) Neut % (Auto) Lymph % (Auto) [place] % (Auto) Eos % (Auto) Baso % (Auto) Neut # (Auto) Lymph # (Auto) [place] # (Auto) Eos # (Auto) Baso # (Auto) Abs Immat Gran (auto) Absolute Nucleated RBC Nucleated RBC % (auto) PT INR Anion Gap 11 L Estim Creat Clear Calc 29.0 Estimated GFR 56 POC Glucose 118 H 107 Random Glucose 100 Calcium 8.7 Tacrolimus Assessment and Plan (1) Osteomyelitis: Status: Acute (2) Diabetes 1.5, managed as type 2: Status: Acute (3) HTN (hypertension): Status: Acute (4) Kidney transplant recipient: Problem details: Cr close to baseline Status: Chronic Assessment and Plan: 50 years old male with PMH of diabetes, HTN, kidney transplant among others who presented to the hospital complaining of left big toe pain, swelling and wound. Osteomyelitis of the left big toe No fever, chills , no change in patient's left big toe examination,patient Seen by Dr. Verde due to chronic minimal changes he did not recommend debridement or amputation he recommend to proceed with antibiotic, case discussed with Dr. Soto she recommend 6 weeks of IV ertapenem but due to renal transplant case discussed with Dr. Mock he recommend use antibiotics as per ID recommendation since kidney function has improved therefore placed Alston catheter, patient also evaluated by Dr. Marrero he obtain an ultrasound that shows good flow to foot therefore will discharge patient home on IV ertapenem to finish a total 6 weeks course of antibiotic arrangements are being made by social media executive for safe discharge tomorrow Will continue IV doxycycline and cefepime while in-house CKD/renal transplant Continue mycophenolate and tacrolimus Monitor BMP Avoid nephrotoxic medications Diabetes. Blood sugar stable, continue insulin Sliding scale,ADA diet Continue long acting insulin. Hypertension BP stable, Continue home medications. DVT prophylaxis Heparin
[2020-03-16 17:02] LABS: Glucose, Whole Blood 161 mg/dL (60-115)
[2020-03-16] MEDS: Insulin Glargine,Hum.rec.anlog 100 UNIT/ML 10 ML VIAL 28 UNIT SUBCUT (17:21)
[2020-03-16] MEDS: Insulin Lispro 100 UNIT/ML 3 ML VIAL SUBCUT ×2 (17:28→21:25)
[2020-03-16 20:22] LABS: Glucose, Whole Blood 161 mg/dL (60-115)
[2020-03-17 00:10] VITALS: BP 126/71; PULSE 83; RESP 16; TEMP 37.8; O2SAT 98
[2020-03-17 03:55] VITALS: BP 134/72; PULSE 76; RESP 16; TEMP 36.8; O2SAT 97
[2020-03-17] MEDS: Doxycycline Hyclate 100 MG in 0.9 % Sodium Chloride 250 ML 250 MG IV (05:55)
[2020-03-17 07:47] VITALS: BP 150/78; PULSE 68; RESP 16; TEMP 36.9; O2SAT 99
[2020-03-17] MEDS: 0.9 % Sodium Chloride Flush 3 ML SYRINGE 2 ML IVFLUSH ×2 (07:57)
[2020-03-17 07:58] VITALS: BP 150/78; PULSE 68
[2020-03-17] MEDS: amLODIPine Besylate 5 MG TABLET PO (07:58)
[2020-03-17] MEDS: Mycophenolate Sodium 180 MG TABLET.DR 540 MG PO (07:58)
[2020-03-17] MEDS: lisinopriL 20 MG TABLET PO (07:58)
[2020-03-17] MEDS: Tacrolimus 1 MG CAPSULE 4 MG PO (07:59)
[2020-03-17 08:13] LABS: Glucose, Whole Blood 95 mg/dL (60-115)
--- NOTE | 2020-03-17 09:16 | MHC.CM.PN ---
Arrangements initiated Thursday for pt to go home today on IV antibiotics. Per CM notes, pt was set up with [facility] and [facility]. This morning, CM attempted to contact [facility]. Call sent to and as of yet, not return call received. CM contacted [facility] and they have accepted referral and are able to initiate service tomorrow morning. CM currently awaiting response from [facility] to confirm delivery of meds today.
[2020-03-17] MEDS: Insulin Glargine,Hum.rec.anlog 100 UNIT/ML 10 ML VIAL SUBCUT (11:55)
--- NOTE | 2020-03-17 11:56 | PM.PNNEP ---
Subjective Subjective Interval history: seen and examined doing well no complaints denies nausea, vomiting, diarrhea Physical Exam Vital Signs and I&O and Narrative: Vital Signs and I&O: Vital Signs Temp 98.5 F 03/17/20 07:47 Pulse 68 03/17/20 07:58 Resp 16 03/17/20 07:47 BP 150/78 H 03/17/20 07:58 Pulse Ox 99 03/17/20 07:47 Intake & Output 03/16/20 03/17/20 03/17/20 18:59 06:59 18:59 Intake Total 780 / 1330 550 / 1330 Output Total 3 / 3 Balance 780 / 1327 547 / 1327 Urine Output (Aver age ml/kg/hr) 0.01 Intake: Intake, Oral [place] unt 480 / 780 300 / 780 Intake, IV Amoun t 300 / 550 250 / 550 Doxycycline Hy clate 100 mg In 0 250 / 500 250 / 500 .9 % Sodium Ch loride 250 ml @ 250 mls/hr IV Q12H [facility] Rx#: [id number] cefEPime HCl 1 gm In 0.9 % 50 / 50 Sodium Chlorid e 50 ml @ 100 mls /hr IV Q24H [facility] Rx#:[id number] Output: Output, Urine Am ount Other: NPO Yes Lunch % Eaten 100% Dinner % Eaten 75% Number of Unmeas ured Voids 2 Urine Bathroom Urine Color Yellow Body Mass Index 10.1 Const: General: comfortable and no acute distress Orientation/consciousness: oriented to person, oriented to place and oriented to time HENMT: Head: Yes normocephalic and Yes atraumatic Eyes: General: appearance normal, both eyes and all related structures Neck: Neck: Yes supple Resp: Auscultation: clear to auscultation bilaterally Cardio: Heart sounds: S1 normal heart sound present and S2 normal heart sound present Neuro: General: oriented to person, oriented to place and oriented to time Psych: Appearance: grossly normal Assessment & Plan Assessment and plan (1) CKD (chronic kidney disease) stage 3, GFR 30-59 ml/min: Status: Acute (2) Kidney transplant recipient: Problem details: Cr close to baseline Status: Chronic (3) HTN (hypertension): Status: Acute (4) Osteomyelitis: Status: Acute Assessment and Plan: stable kidney function known ESRD due to diabetic nephropathy LURD in January 2017 BP well controlled REC continue ACEi MMF 180mg 3 tabs BID tacrolimus 3 mg bid follow kidney function and electrolytes will arrange for follow up with transplant clinic Time Spent With Patient Time: Total time spent is greater than 50% in coordination of care (as documented) at patient's floor/unit and/or counseling patient:
[2020-03-17] MEDS: Ertapenem Sodium 1 GM in 0.9 % Sodium Chloride 50 ML IV (11:57)
[2020-03-17 12:00] VITALS: BP 133/70; PULSE 75; RESP 16; TEMP 36.9; O2SAT 99
--- NOTE | 2020-03-17 12:36 | CONS_ITS ---
DATE OF SERVICE: 03/15/2020 HISTORY OF PRESENT ILLNESS: I was called to see this patient to assist in the management of renal insufficiency. Raheem is well known to us. He is a 50-year-old man with a history of ESRD, status post living unrelated renal transplantation back in January 2017. He comes in because of foot ulcer. He is currently on antibiotics. At the time of admission, serum creatinine was 1.58, with hydration, creatinine has decreased to 1.2. His baseline creatinine is somewhere around 1.3 mg/dL. Raheem has history of ESRD due to diabetic nephropathy and he underwent renal transplantation in January 2017. 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 Currently, he is on immunosuppression with mycophenolate and tacrolimus. PAST MEDICAL HISTORY: Ongoing medical problems include history of ESRD on dialysis, diabetes mellitus, hypertension, secondary hyperparathyroidism, diabetic foot ulcer, history of hypocalcemia, and orthostatic hypotension. MEDICATIONS: At time of admission include aspirin, insulin, lisinopril 20 mg, metformin, mycophenolate 180 mg 3 tablets twice a day, calciferol once a day, tacrolimus 1 mg capsule 3 capsules twice a day. ALLERGIES: NO KNOWN DRUG ALLERGIES HAVE BEEN DOCUMENTED. REVIEW OF SYSTEMS: No headache, nausea, or vomiting. No abdominal pain, diarrhea, or constipation. He has foot ulcers. No fever. No rash. PHYSICAL EXAMINATION: GENERAL: Raheem is a middle-aged man who is comfortable, not in any distress. VITAL SIGNS: Blood pressure was reviewed. No hypotensive episodes. NECK: Supple. No JVD. Mucosa is moist. LUNGS: Air entry equal. No rales. HEART: S1 and S2 heard. No gallop or rub. ABDOMEN: Soft and nontender. EXTREMITIES: No dependent edema. No rash. No clubbing. LABORATORY DATA: All the labs were reviewed. IMPRESSION: Middle-aged man with diabetes mellitus and end-stage renal disease, status post living unrelated kidney transplant about 3 years ago. He has been admitted with diabetic foot ulcers. At the time of admission, Raheem had acute kidney injury superimposed on chronic kidney disease. Acute kidney injury was due to hypoperfusion, which seems to have resolved. At this point, renal function is at baseline. We will avoid nephrotoxic agents. We will continue to monitor renal function closely. I will check the tacrolimus levels and adjust the dose accordingly. As for the antibiotics, since his creatinine has dropped down to 1.2, we can keep him on ertapenem as per ID. I would avoid using PICC line in this patient. We would prefer a Alston catheter, if he needs long-term antibiotics. I have discussed with Dr. Arvizu and will be happy to follow the patient along with the team. Roverto Nowak MD BPA/MODL / [phone] MTDD
--- NOTE | 2020-03-17 13:15 | MHC.CM.PN ---
PT WILL DISCHARGE HOME TODAY. [facility] WILL DELIVER PTS MEDS AND SUPPLIES TODAY BETWEEN 1500 AND 1600 HOURS. PT CONFIRMS THE ADDRESS ON FILE FOR HIM IS INCORRECT AND HE NOW LIVES AT [address] [place] [address] DR SHELBY ESCOBAR. UPDATE PASSED ONTO [facility]. A VISITING NURSE FROM [facility] WILL SEE PT TOMORROW FOR HIS FIRST HOME DOSE OF IV ANTIBIOTICS. DISCHARGE PLAN REVIEWED WITH BOTH PT AND HIS WHO WAS AT BEDSIDE. BOTH REPORT UNDERSTANDING AND AGREEMENT
[2020-03-17 13:59] LABS: Glucose, Whole Blood 117 mg/dL (60-115)
--- NOTE | 2020-03-17 15:39 | PM.DS ---
DS: Providers Provider Date of admission: 03/12/20 16:21 Primary care physician: Lianne Manuel MD Consults: 03/14/20 03:04 Consult to Infectious Diseases Routine Consulting Provider: Rhiannon Soto Reason for consultation: Osteo left great toe, other wound to right great toe Has provider been notified: Yes 03/14/20 03:06 Consult to General Surgery Routine Consulting Provider: Jennifer Piper Reason for consultation: bilateral great toe wounds, may need debridement Has provider been notified: Yes 03/14/20 12:14 Consult to Nephrology Routine Consulting Provider: Roverto Nowak Reason for consultation: PROLONG ABX WITH RENAL TRANSPLANT HISTORY Has provider been notified: Yes 03/15/20 10:29 Consult to Vascular Surgery Routine Consulting Provider: Bart Marrero Reason for consultation: poor circulation left leg with toe osteo Has provider been notified: No DS: Diagnosis Discharge Diagnosis (1) CKD (chronic kidney disease) stage 3, GFR 30-59 ml/min: Status: Acute (2) Kidney transplant recipient: Status: Chronic Problem details: Cr close to baseline (3) HTN (hypertension): Status: Acute (4) Osteomyelitis: Status: Acute DS: Summary Hospital Course Hospital Course: 50-year-old gentleman with past medical history of chronic kidney disease stage 3 is status post renal transplant, history of hypertension, diabetes was brought into [facility] due to worsening left toe ulcer going on for several weeks being followed by retail marketing specialist who referred him to the emergency room patient recently finished a course of Augmentin patient had no fever chills nausea vomiting or wound drainage. patient was admitted to [facility] with a diagnosis of left great toe infection, and x-ray of the left foot was consistent with osteomyelitis of the distal phalangeal tuft there was a concern for secondary pathological Communited fracture of the distal phalanx patient was seen in consultation by infectious disease Dr. Kassandra agudelo she recommended 6 weeks of IV ertapenem patient was seen in consultation by Dr. Nowak from Nephrology he agreed for IV antibiotic and felt that patient kidney function is at baseline and he can not tolerate antibiotics therefore a Alston catheter has been placed patient was also evaluated by Dr. Marrero from vascular surgery and he felt that antibiotic would be a good choice for treatment at the present time , a duplex Doppler study of the left lower extremity showed no evidence of any hemodynamically significant lower extremity arterial disease, and he recommend to have outpatient follow-up with him, patient is now being discharged home on 6 weeks of IV antibiotic eye Alston has been placed patient has been recommended to apply dry gauze dressing to left foot and to use offloading boot left foot and to have outpatient follow-up at wound clinic for possible hyperbaric oxygen therapy. Time Spent with Patient Time attestation: Total time spent providing and/or coordinating discharge services: Physical Exam Vital Signs and I&O and Narrative: Vital Signs and I&O: Vital Signs Temp 98.4 F 03/17/20 12:00 Pulse 75 03/17/20 12:00 Resp 16 03/17/20 12:00 BP 133/70 03/17/20 12:00 Pulse Ox 99 03/17/20 12:00 Intake & Output 03/16/20 03/17/20 03/17/20 18:59 06:59 18:59 Intake Total 780 / 1330 550 / 1330 Output Total 3 / 3 Balance 780 / 1327 547 / 1327 Urine Output (Aver age ml/kg/hr) 0.01 0.01 Intake: Intake, Oral Ray unt 480 / 780 300 / 780 Intake, IV Amoun t 300 / 550 250 / 550 Doxycycline Hy clate 100 mg In 0 250 / 500 250 / 500 .9 % Sodium Ch loride 250 ml @ 250 mls/hr IV Q12H [facility] Rx#: [id number] cefEPime HCl 1 gm In 0.9 % 50 / 50 Sodium Chlorid e 50 ml @ 100 mls /hr IV Q24H [facility] Rx#:[id number] Output: Output, Urine Am ount 3 / Other: NPO Yes Lunch % Eaten 100% 100% Dinner % Eaten 75% Number of Incont inent Voids 1 Number of Unmeas ured Voids 2 Number of Incont inent Bowel 1 Movements Urine Bathroom incont Urine Color Yellow Yellow Stool incont Stool Color Brown Stool Consistenc y Semi Formed Body Mass Index 10.1 Constitutional Awake and Alert, No apparent distress Neck Normal inspection, Supple Cardiovascular RRR, S1 S2 Respiratory Lungs clear, Normal lung expansion Gastrointestinal Normal bowel sounds, Non tender Left extremities Left big toe swollen , no worsening swelling no fluctuation, Noted to have small opening and some bloody drainage at site of distal dry scab, dry skin Skin Warm/Dry, No rash Neurological Alert & oriented x3, No focal deficit DS: Data Data Completed and Pending Labs on day of discharge: Labs from last 24 hours 03/17/20 03/17/20 03/16/20 11:23 07:45 20:17 POC Glucose 117 H 95 161 H 03/16/20 16:44 POC Glucose 161 H Discharge Plan Discharge Patient Disposition: Home Health Service Referrals: [facility] [Other] (A NURSE WILL VISIT YOU ON 03/18 TO ADMINISTER YOUR FIRST HOME DOSE OF IV ANTIBIOTIC ) [facility] [Other] (YOUR MEDS AND SUPPLIES WILL BE DELIVERED TODAY BETWEEN 3 AND 4 PM ) Lianne Manuel MD [Primary Care Provider] - Discharge Medications: New ertapenem 1 gram recon soln 1 g IV DAILY Qty: 1 RF: 0 Continued lisinopril 20 mg Tablet 20 mg PO DAILY RF: 0 amlodipine [Norvasc] 5 mg Tablet 5 mg PO DAILY RF: 0 aspirin [Aspirin Low Dose] 81 mg Tablet,Delayed Release (Dr/Ec) 81 mg PO DAILY RF: 0 clotrimazole-betamethasone 1-0.05 % Cream 1 applic TOPICAL BID RF: 0 tacrolimus [Prograf] 1 mg Capsule 4 mg PO BID RF: 0 insulin aspart U-100 [Novolog Flexpen U-100 Insulin] 100 unit/mL (3 mL) Insulin Pen See Protocol unit SUBCUT TID RF: 0 mycophenolate sodium 180 mg Tablet,Delayed Release (Dr/Ec) 540 mg PO BID RF: 0 Lantus Solostar U-100 Insulin 100 unit/mL (3 mL) Insulin Pen 5 unit SUBCUT DAILY@1200 RF: 0 Lantus Solostar U-100 Insulin 100 unit/mL (3 mL) Insulin Pen 28 unit SUBCUT DAILY@1800 RF: 0 Rayaldee 30 mcg Capsule,Extended Release 24 Hr 30 mcg PO BEDTIME RF: 0 Discharge Orders: Discharge Order (Routine); Ordered 03/17/20 Ordered By: Oswaldo Arvizu Diet: diabetic diet Activity on Discharge: boot Discharge Date/Time: 03/17/20 14:00 Print Language: Luxembourger Visit Report Forms: Patient Portal Discharge page Care Plan Goals: As per dischargae plan Health Concerns: as per discharge plan Plan of Treatment: close outpatient follow-up with PCP continue antibiotic as prescribed through April 22 follow labs Q weekly and outpatient follow-up with primary care physician and wound clinic
--- NOTE | 2020-03-17 15:50 | P.F2F_ITS ---
Service Date Service Date: 03/17/20 Reasons for Services overseeing care: Oswaldo Arvizu MD Homebound: Leaving the home is medically contraindicated at this time without the asist of a device and/or another person due th the listed conditions above and below. Certification: Based on the above findings, I certify that this patient is confined to the home and needs intermittent nursing home care, physical therapy and/or speech therapy, or continues to need occupational therapy. The patient is under my care, and I have initiated the establishment of the plan of care. The patient will be followed by a physician who will periodically review the plan of care. 50-year-old gentleman with left big toe ulcer/osteomyelitis will need IV ertapenem home infusion and close monitoring of wound.
== END 2020-03-17 14:00 | disposition home health service (06) | DRG 638 ==
LOC: HO.IMC 03-15 06:04 → HO.S3 03-15 06:54 → HO.IMC 03-15 09:22
PROVIDERS: Internal Medicine Hypertension Specialist; Admitting Provider Student in an Organized Health Care Education/Training Program; Emergency Provider Nurse Practitioner Primary Care; PCP Internal Medicine; Visit Provider Hospitalist
DX: E11.69 Type 2 diabetes mellitus with other specified complication (principal); Z94.0 Kidney transplant status; M86.9 Osteomyelitis, unspecified; L97.526 Non-pressure chronic ulcer of other part of left foot with bone involvement without evidence of necrosis; E11.22 Type 2 diabetes mellitus with diabetic chronic kidney disease; E11.621 Type 2 diabetes mellitus with foot ulcer; L97.519 Non-pressure chronic ulcer of other part of right foot with unspecified severity; B95.1 Streptococcus, group B, as the cause of diseases classified elsewhere; E11.42 Type 2 diabetes mellitus with diabetic polyneuropathy; N18.30 Chronic kidney disease, stage 3 unspecified; I12.9 Hypertensive chronic kidney disease with stage 1 through stage 4 chronic kidney disease, or unspecified chronic kidney disease; Z79.4 Long term (current) use of insulin; Z79.82 Long term (current) use of aspirin; Z79.899 Other long term (current) drug therapy
CPT/HCPCS: 36415; 36558; 73660; 76942; 77001; 80048; 80051; 80076; 80197; 81003; 82565; 82947; 83605; 83690; 84520; 85025; 85610; 87040; 87070; 87205; 87640; 87641; 93923; 93925; 96365; 99285; J0692; J1335

== ENCOUNTER 2020-03-19 15:55 | Outpatient (REF) | payer OTHER, SELFPAY ==
[2020-03-19 15:59] LABS: MANUAL DIFF FLAG NO
[2020-03-19 16:05] LABS: Basophils Percent Auto 0.4 % (0-2); Eosinophils Absolute Auto 0.1 X10*3/uL (0.0-0.4); Eosinophils Percent Auto 1.1 % (0-4); Hematocrit 42.3 % (42-52); Hemoglobin 13.5 g/dl (14.0-18.0); Imm Gran Abs Auto 0.16 X10*3/uL (0.00-0.03); Lymphocytes Absolute Auto 1.8 X10*3/uL (1.2-4.9); Lymphocytes Percent Auto 21.6 % (20-40); Mean Corpuscular HGB Conc 31.9 g/dl (31.0-36.0); Mean Corpuscular Hemoglobin 28.8 pg (27.0-33.0); Mean Corpuscular Volume 90.4 fL (80-98); Monocytes Absolute Auto 1.1 X10*3/uL (0.1-1.2); Neutrophils Percent Auto 60.9 % (45-73); Platelet Count 275 X10*3/uL (160-400); Red Blood Count 4.68 X10*6/uL (4.60-5.80); Red Cell Distribution Width 12.7 % (11.0-16.0); White Blood Count 8.2 X10*3/uL (4.8-10.8)
[2020-03-19 16:36] LABS: Alanine Aminotransferase 31 U/L (0-40); Albumin Level 4.1 g/dL (3.5-5.0); Alkaline Phosphatase 108 U/L (39-117); Anion Gap 14 (12-20); Aspartate Amino Transferase 31 U/L (5-37); Bilirubin Direct 0.2 mg/dL (0.0-0.5); Bilirubin Total 0.5 mg/dL (0.0-1.0); Blood Urea Nitrogen 22 mg/dL (9-16); Calcium 9.1 mg/dL (8.4-10.2); Carbon Dioxide 24 mmol/L (22-29); Chloride 105 mmol/L (96-108); Estimated Glomerular Filt Rate 54; Glucose Random 83 mg/dL (60-115); Potassium 4.1 mmol/l (3.3-5.1); Sodium 139 mmol/L (135-145); Total Protein 7.9 g/dL (6.5-8.0)
== END 2020-03-19 15:56 | disposition home or self-care (01) ==
LOC: HO.LNP 15:55
PROVIDERS: Referring Provider Internal Medicine; Visit Provider Internal Medicine
DX: M86.9 Osteomyelitis, unspecified (principal); E08.52 Diabetes mellitus due to underlying condition with diabetic peripheral angiopathy with gangrene
CPT/HCPCS: 36415; 80048; 80076; 85025

== ENCOUNTER 2020-03-20 08:00 | Outpatient (RCR) | payer OTHER, SELFPAY | END 2020-04-12 12:04 | disposition home or self-care (01) | LOC: HO.WCC 08:00 | PROVIDERS: PCP Internal Medicine; Visit Provider Physician Assistant Surgical | DX: E11.621 Type 2 diabetes mellitus with foot ulcer (principal); E11.51 Type 2 diabetes mellitus with diabetic peripheral angiopathy without gangrene; L97.522 Non-pressure chronic ulcer of other part of left foot with fat layer exposed; E11.69 Type 2 diabetes mellitus with other specified complication; M86.172 Other acute osteomyelitis, left ankle and foot; E11.319 Type 2 diabetes mellitus with unspecified diabetic retinopathy without macular edema; H35.60 Retinal hemorrhage, unspecified eye; E11.40 Type 2 diabetes mellitus with diabetic neuropathy, unspecified; M25.511 Pain in right shoulder; I10 Essential (primary) hypertension; Z79.4 Long term (current) use of insulin; Z79.2 Long term (current) use of antibiotics | CPT/HCPCS: 11042; 11043; 99213 ==

== ENCOUNTER 2020-03-26 13:08 | Outpatient (REF) | payer OTHER, SELFPAY ==
[2020-03-26 13:12] LABS: MANUAL DIFF FLAG NO
[2020-03-26 13:20] LABS: Basophils Percent Auto 0.3 % (0-2); Eosinophils Absolute Auto 0.1 X10*3/uL (0.0-0.4); Eosinophils Percent Auto 1.3 % (0-4); Hematocrit 41.8 % (42-52); Hemoglobin 13.8 g/dl (14.0-18.0); Imm Gran Abs Auto 0.16 X10*3/uL (0.00-0.03); Imm Gran Pct Auto 1.7 % (0.0-0.4); Lymphocytes Absolute Auto 1.7 X10*3/uL (1.2-4.9); Lymphocytes Percent Auto 17.8 % (20-40); Mean Corpuscular Hemoglobin 29.5 pg (27.0-33.0); Mean Corpuscular Volume 89.3 fL (80-98); Mean Platelet Volume 11.6 fL (9.4-12.4); Monocytes Absolute Auto 1.1 X10*3/uL (0.1-1.2); Monocytes Percent Auto 11.2 % (2-11); Neutrophils Absolute Auto 6.5 X10*3/uL (2.0-8.3); Neutrophils Percent Auto 67.7 % (45-73); Platelet Count 297 X10*3/uL (160-400); Red Blood Count 4.68 X10*6/uL (4.60-5.80); Red Cell Distribution Width 12.5 % (11.0-16.0); White Blood Count 9.5 X10*3/uL (4.8-10.8)
[2020-03-26 13:39] LABS: Alanine Aminotransferase 19 U/L (0-40); Albumin Level 4.1 g/dL (3.5-5.0); Alkaline Phosphatase 126 U/L (39-117); Anion Gap 12 (12-20); Aspartate Amino Transferase 16 U/L (5-37); Bilirubin Direct 0.2 mg/dL (0.0-0.5); Bilirubin Total 0.7 mg/dL (0.0-1.0); Blood Urea Nitrogen 15 mg/dL (9-16); Calcium 8.7 mg/dL (8.4-10.2); Carbon Dioxide 24 mmol/L (22-29); Chloride 106 mmol/L (96-108); Estimated Glomerular Filt Rate 57; Glucose Random 120 mg/dL (60-115); Potassium 4.7 mmol/l (3.3-5.1); Sodium 137 mmol/L (135-145)
== END 2020-03-26 13:09 | disposition home or self-care (01) ==
LOC: HO.LNP 13:08
PROVIDERS: Referring Provider Internal Medicine; Visit Provider Internal Medicine Hypertension Specialist
DX: M86.9 Osteomyelitis, unspecified (principal)
CPT/HCPCS: 36415; 80048; 80076; 85025

== ENCOUNTER 2020-03-28 10:00 | Outpatient (REF) | payer OTHER, SELFPAY ==
--- NOTE | 2020-03-28 10:02 | XR_ITS ---
EXAMINATION: XR SHOULDER, RIGHT: 3 VIEWS CLINICAL INFORMATION: Pain COMPARISON: None FINDINGS: No acute fracture or dislocation. There is degenerative subchondral sclerosis along the glenoid and humeral head. Small marginal osteophytes along the inferior glenohumeral joint and acromioclavicular joint. Soft tissues unremarkable. IMPRESSION: No acute fracture or dislocation. Degenerative changes of the glenohumeral and acromioclavicular joints as described.
[2020-03-28 12:33] LABS: C Reactive Protein 7.43 mg/dL (< or = 0.50)
[2020-03-28 12:43] LABS: Estimated Average Glucose 183 mg/dL
[2020-03-28 13:07] LABS: Erythrocyte Sedimentation Rate 69 MM/HR (0-15)
== END 2020-03-28 10:01 | disposition home or self-care (01) ==
LOC: HO.XRAY 10:00
PROVIDERS: PCP Internal Medicine; Referring Provider Internal Medicine; Visit Provider Orthopaedic Surgery
DX: M25.511 Pain in right shoulder (principal); S46.001A Unspecified injury of muscle(s) and tendon(s) of the rotator cuff of right shoulder, initial encounter
CPT/HCPCS: 36415; 73030; 83036; 85652; 86140; 99204

== ENCOUNTER 2020-04-02 14:27 | Outpatient (REF) | payer OTHER, SELFPAY ==
[2020-04-02 14:34] LABS: MANUAL DIFF FLAG NO
[2020-04-02 14:38] LABS: Basophils Percent Auto 0.4 % (0-2); Eosinophils Absolute Auto 0.2 X10*3/uL (0.0-0.4); Eosinophils Percent Auto 2.1 % (0-4); Hematocrit 39.5 % (42-52); Hemoglobin 12.9 g/dl (14.0-18.0); Imm Gran Abs Auto 0.14 X10*3/uL (0.00-0.03); Imm Gran Pct Auto 1.8 % (0.0-0.4); Lymphocytes Absolute Auto 1.6 X10*3/uL (1.2-4.9); Lymphocytes Percent Auto 20.6 % (20-40); Mean Corpuscular HGB Conc 32.7 g/dl (31.0-36.0); Mean Corpuscular Hemoglobin 29.3 pg (27.0-33.0); Mean Corpuscular Volume 89.6 fL (80-98); Mean Platelet Volume 12.3 fL (9.4-12.4); Monocytes Percent Auto 13.3 % (2-11); Neutrophils Absolute Auto 4.8 X10*3/uL (2.0-8.3); Neutrophils Percent Auto 61.8 % (45-73); Platelet Count 317 X10*3/uL (160-400); Red Blood Count 4.41 X10*6/uL (4.60-5.80); Red Cell Distribution Width 12.3 % (11.0-16.0); White Blood Count 7.7 X10*3/uL (4.8-10.8)
[2020-04-02 15:29] LABS: Alanine Aminotransferase 9 U/L (0-40); Albumin Level 3.9 g/dL (3.5-5.0); Alkaline Phosphatase 123 U/L (39-117); Anion Gap 15 (12-20); Aspartate Amino Transferase 14 U/L (5-37); Bilirubin Direct 0.2 mg/dL (0.0-0.5); Bilirubin Total 0.4 mg/dL (0.0-1.0); Blood Urea Nitrogen 15 mg/dL (9-16); Calcium 8.9 mg/dL (8.4-10.2); Carbon Dioxide 24 mmol/L (22-29); Chloride 104 mmol/L (96-108); Estimated Glomerular Filt Rate 58; Glucose Random 107 mg/dL (60-115); Potassium 4.5 mmol/l (3.3-5.1); Sodium 138 mmol/L (135-145); Total Protein 7.9 g/dL (6.5-8.0)
== END 2020-04-02 14:28 | disposition home or self-care (01) ==
LOC: HO.LNP 14:27
PROVIDERS: PCP Internal Medicine; Referring Provider Internal Medicine Hypertension Specialist; Visit Provider Internal Medicine Nephrology
DX: M86.9 Osteomyelitis, unspecified (principal)
CPT/HCPCS: 36415; 80048; 80076; 85025

== ENCOUNTER 2020-04-09 14:34 | Outpatient (REF) | payer OTHER, SELFPAY ==
[2020-04-09 14:41] LABS: MANUAL DIFF FLAG NO
[2020-04-09 14:50] LABS: Basophils Percent Auto 0.3 % (0-2); Eosinophils Absolute Auto 0.2 X10*3/uL (0.0-0.4); Eosinophils Percent Auto 2.3 % (0-4); Hematocrit 40.3 % (42-52); Hemoglobin 12.9 g/dl (14.0-18.0); Imm Gran Abs Auto 0.21 X10*3/uL (0.00-0.03); Imm Gran Pct Auto 3.2 % (0.0-0.4); Lymphocytes Absolute Auto 1.3 X10*3/uL (1.2-4.9); Lymphocytes Percent Auto 19.1 % (20-40); Mean Corpuscular Hemoglobin 28.9 pg (27.0-33.0); Mean Corpuscular Volume 90.2 fL (80-98); Mean Platelet Volume 12.1 fL (9.4-12.4); Monocytes Absolute Auto 0.6 X10*3/uL (0.1-1.2); Monocytes Percent Auto 9.3 % (2-11); Neutrophils Absolute Auto 4.4 X10*3/uL (2.0-8.3); Neutrophils Percent Auto 65.8 % (45-73); Platelet Count 261 X10*3/uL (160-400); Red Blood Count 4.47 X10*6/uL (4.60-5.80); Red Cell Distribution Width 12.6 % (11.0-16.0); White Blood Count 6.7 X10*3/uL (4.8-10.8)
[2020-04-09 15:34] LABS: Alanine Aminotransferase 20 U/L (0-40); Albumin Level 3.9 g/dL (3.5-5.0); Alkaline Phosphatase 159 U/L (39-117); Anion Gap 14 (12-20); Aspartate Amino Transferase 16 U/L (5-37); Bilirubin Direct < 0.2 mg/dL (0.0-0.5); Bilirubin Total 0.4 mg/dL (0.0-1.0); Blood Urea Nitrogen 17 mg/dL (9-16); Calcium 8.2 mg/dL (8.4-10.2); Carbon Dioxide 22 mmol/L (22-29); Chloride 106 mmol/L (96-108); Estimated Glomerular Filt Rate 56; Glucose Random 245 mg/dL (60-115); Potassium 4.6 mmol/l (3.3-5.1); Sodium 137 mmol/L (135-145); Total Protein 7.7 g/dL (6.5-8.0)
== END 2020-04-09 14:35 | disposition home or self-care (01) ==
LOC: HO.LNP 14:34
PROVIDERS: PCP Internal Medicine; Referring Provider Internal Medicine Hypertension Specialist; Visit Provider Hospitalist
DX: I12.9 Hypertensive chronic kidney disease with stage 1 through stage 4 chronic kidney disease, or unspecified chronic kidney disease (principal); N18.30 Chronic kidney disease, stage 3 unspecified; M86.9 Osteomyelitis, unspecified; E13.9 Other specified diabetes mellitus without complications; Z94.0 Kidney transplant status
CPT/HCPCS: 36415; 80048; 80076; 85025

== ENCOUNTER → 2020-04-11 15:35 | Outpatient (BNVA) | payer OTHER, SELFPAY | PROVIDERS: Visit Provider Internal Medicine | DX: M86.9 Osteomyelitis, unspecified (principal); N18.30 Chronic kidney disease, stage 3 unspecified | CPT/HCPCS: 99212 ==

== ENCOUNTER 2020-04-25 13:41 | Outpatient (REF) | payer OTHER, SELFPAY | END 2020-04-25 13:42 | disposition home or self-care (01) | LOC: HO.RADIR 13:41 | PROVIDERS: PCP Internal Medicine; Visit Provider Internal Medicine | DX: M86.9 Osteomyelitis, unspecified (principal); Z53.8 Procedure and treatment not carried out for other reasons ==

== ENCOUNTER → 2020-05-09 09:57 | Outpatient (BNVA) | payer OTHER, SELFPAY | PROVIDERS: PCP Internal Medicine; Visit Provider Internal Medicine | DX: E11.621 Type 2 diabetes mellitus with foot ulcer (principal); E11.22 Type 2 diabetes mellitus with diabetic chronic kidney disease; E11.69 Type 2 diabetes mellitus with other specified complication; N18.6 End stage renal disease; M86.172 Other acute osteomyelitis, left ankle and foot; L97.429 Non-pressure chronic ulcer of left heel and midfoot with unspecified severity; Z99.2 Dependence on renal dialysis; Z79.4 Long term (current) use of insulin | CPT/HCPCS: 99212 ==

== ENCOUNTER 2020-05-18 09:17 | Outpatient (REF) | payer OTHER, SELFPAY ==
[2020-05-18 11:41] LABS: Cholesterol 175 mg/dL; HDL Cholesterol 25 mg/dL; LDL Cholesterol Calculated 118 mg/dl; Triglycerides 162 mg/dL
== END 2020-05-18 09:18 | disposition home or self-care (01) ==
LOC: HO.HMGCLDS 09:17
PROVIDERS: PCP Internal Medicine; Visit Provider Internal Medicine
DX: Z00.01 Encounter for general adult medical examination with abnormal findings (principal); I10 Essential (primary) hypertension; E78.2 Mixed hyperlipidemia; I73.9 Peripheral vascular disease, unspecified
CPT/HCPCS: 80061

== ENCOUNTER → 2020-06-05 11:37 | Outpatient (BNVA) | payer OTHER, SELFPAY | PROVIDERS: PCP Internal Medicine; Visit Provider Nurse Practitioner Gerontology | DX: Z13.89 Encounter for screening for other disorder (principal) | CPT/HCPCS: Q3014 ==

== ENCOUNTER 2020-10-05 02:32 | Emergency (ER) | payer OTHER, SELFPAY ==
[2020-10-05 02:43] VITALS: BP 81/46; PULSE 78; PULSE 81; RESP 15; TEMP 37; O2SAT 99; BMI 22.3
--- NOTE | 2020-10-05 03:20 | PC.NURSE ---
Bladder scan performed. Reading was >999 ml.
--- NOTE | 2020-10-05 03:21 | PC.NURSE ---
This nurse inserted 16 Fr merritt catheter.
--- NOTE | 2020-10-05 03:36 | ED.GENADULT ---
HPI - General Adult General Chief complaint: General Medical Stated complaint: pain on urination Time Seen by Provider: 10/05/20 02:44 Source: patient Mode of arrival: EMS History of Present Illness HPI narrative: 50-year-old male who presents via EMS with acute urinary retention this started last night. Patient denies that this is been associated with any fever, chills, nausea, vomiting, or diarrhea. Patient states that he recently finished chemotherapy on Thursday for testicular cancer. Related Data Home Medications Medication Instructions Recorded Confirmed Rayaldee 30 mcg PO BEDTIME 03/14/20 06/05/20 amlodipine [Norvasc] 5 mg PO DAILY 03/14/20 06/05/20 aspirin [Aspirin Low Dose] 81 mg PO DAILY 03/14/20 06/05/20 lisinopril 20 mg PO DAILY 03/14/20 06/05/20 tacrolimus [Prograf] 4 mg PO BID 03/14/20 06/05/20 mycophenolate sodium 180 mg 540 mg PO BID 05/18/20 06/05/20 tablet,delayed release pen needle, diabetic 31 gauge x #50 ea 06/05/20 06/05/2008/28 Previous Rx's Medication Instructions Recorded doxycycline hyclate 100 mg capsule 100 mg PO BID 30 Days #60 cap 04/11/20 pioglitazone 15 mg tablet 15 mg PO DAILY #90 tab 05/31/20 gabapentin 100 mg capsule 200 mg PO BID PRN 7 Days #28 cap 06/05/20 insulin aspart U-100 100 unit/mL 4 - 6 unit SUBCUT TID 30 Days #15 06/05/20 (3 mL) subcutaneous pen ml insulin glargine 100 unit/mL (3 30 unit SUBCUT DAILY #15 ml 06/05/20 mL) subcutaneous pen rosuvastatin 10 mg tablet 10 mg PO DAILY #30 tab 06/05/20 tizanidine 4 mg tablet 4 mg PO BEDTIME PRN #14 tab 06/06/20 Allergies Allergy/AdvReac Type Severity Reaction Status Date / Time No Known Allergies Allergy Verified 05/18/20 09:15 Review of Systems Review of Systems: Pertinent positives and negatives as stated in HPI 10 point review of systems is otherwise negative. 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 Sister No problems noted. Sister No problems noted. Social History Social History Alcohol intake: never Smoking Status: Never smoker Advance Directives: No Current occupational status: unemployed Current occupation: disability - kidney transplant. Left side dominant Physical Exam Vital Signs: Vital Signs: Last Vital Signs Temp 98.6 F 10/05/20 04:48 Pulse 72 10/05/20 04:48 Resp 15 10/05/20 04:48 BP 105/61 10/05/20 04:48 Pulse Ox 99 10/05/20 04:48 Body Mass Index 22.3 VITAL SIGNS: Reviewed. GENERAL: Cachectic, chronically ill, significant distress. HEAD: Normocephalic/atraumatic EYES: PERRLA, EOMI OROPHARYNX: no oral lesions noted, posterior pharynx clear NECK: Supple, no adenopathy LUNGS: Normal breath sounds. No adventitious sounds or accessory muscle use. SpO2<99> CARDIOVASCULAR: Regular rate and rhythm without noted murmurs ABDOMEN: Soft, significant tenderness to palpation over suprapubic area with noted firmness, non-distended with bowel sounds. NEUROLOGIC: Alert and oriented x 4. Course Course Course Narrative: This is a 50-year-old male with history and clinical presentation consistent with urinary retention. Bailey catheter was placed after bladder scan confirms greater than 999 mL with good return of clear yellow urine and on re-evaluation patient states feeling much better. Initial labs were obtained in on comparison with prior from [facility] they are grossly unchanged and patient states that he will be following up with his primary care provider/oncologist today. In addition, patient was provided with a referral to Urology for further evaluation of his acute urinary retention. Otherwise review of all investigations there are no acute findings from noted chronically stable. Medical Decision Making Lab Data Result diagrams: 10/05/20 03:48 10/05/20 03:48 Labs: Lab Results 10/05/20 10/05/20 10/05/20 Range/Units 03:48 03:48 03:48 WBC (4.8-10.8) X10*3/uL RBC 2.21 L D (4.60-5.80) X10*6/uL Hgb 6.6 L* D (14.0-18.0) g/dl Hct 20.2 L* D (42-52) % MCV 91.4 (80-98) fL MCH 29.9 (27.0-33.0) pg MCHC 32.7 (31.0-36.0) g/dl RDW 18.2 H (11.0-16.0) % Plt Count 101 L D (160-400) X10*3/uL MPV 11.0 (9.4-12.4) fL Immature Gran % (Auto) Cancelled Neut % (Auto) Cancelled Lymph % (Auto) Cancelled [place] % (Auto) Cancelled Eos % (Auto) Cancelled Baso % (Auto) Cancelled Lymph # (Auto) Cancelled [place] # (Auto) Cancelled Eos # (Auto) Cancelled Baso # (Auto) Cancelled Abs Immat Gran (auto) Cancelled Absolute Neuts (auto) Cancelled Absolute Nucleated RBC 0.000 (0.0-0.012) X10*3/uL Nucleated RBC % (auto) 0.0 (0.0-0.2) /100WBC Neutrophils % (Manual) 95 H (45-73) % Band Neutrophils % 3 (3-5) % Lymphocytes % (Manual) 2 L (20-40) % Abs Neuts (Manual) 27.5 H (2.2-7.9) X10*3/uL Lymphocytes # (Manual) 0.6 (0.6-4.8) X10*3/uL Hypersegmented Neuts PRESENT Toxic Vacuolation PRESENT Dohle Bodies PRESENT Platelet Estimate DECREASED (NORMAL) Plt Morphology Comment NORMAL RBC Morphology NOTED Hypochromasia 1+ (5-14) /OIF Acanthocytes (Spur) 1+ (0-2) /OIF Smear Path Review SEE NOTE VBG pH (7.32-7.43) VBG pCO2 mmHg VBG pO2 mmHg VBG HCO3 (22-26) mmol/L VBG O2 Saturation % VBG Base Excess mmol/L Sodium 135 (135-145) mmol/L Potassium 3.4 (3.3-5.1) mmol/L Chloride 102 (96-108) mmol/L Carbon Dioxide 23 (22-29) mmol/L Anion Gap 13 (12-20) BUN 11 (9-16) mg/dL Creatinine 0.94 (0.5-1.4) mg/dL Estim Creat Clear Calc 92.0 Estimated GFR > 60 Random Glucose 124 H D (60-115) mg/dL Lactic Acid 0.9 (0.5-2.0) mmol/L Calcium 7.5 L D (8.4-10.2) mg/dL Magnesium (1.6-2.6) mg/dL Total Bilirubin 0.4 (0.0-1.0) mg/dL AST 16 (5-37) U/L ALT 24 (0-40) U/L Alkaline Phosphatase 147 H (39-117) U/L Total Protein 5.3 L D (6.5-8.0) g/dL Albumin 3.1 L D (3.5-5.0) g/dL Lipase 40 (8-78) U/L Urine Color Urine Appearance Urine pH (5.0-8.0) Ur Specific Worth (1.005-1.025) Urine Protein (NEG-TRACE) MG/DL Urine Glucose (UA) (NEG) MG/DL Urine Ketones (NEG) MG/DL Urine Blood (NEG) Urine Nitrite (NEG) Ur Leukocyte Esterase (NEG) Acetone, Qual Negative (Negative) 10/05/20 10/05/20 10/05/20 Range/Units 03:48 03:51 04:56 WBC (4.8-10.8) X10*3/uL RBC (4.60-5.80) X10*6/uL Hgb (14.0-18.0) g/dl Hct (42-52) % MCV (80-98) fL MCH (27.0-33.0) pg MCHC (31.0-36.0) g/dl RDW (11.0-16.0) % Plt Count (160-400) X10*3/uL MPV (9.4-12.4) fL Immature Gran % (Auto) Neut % (Auto) Lymph % (Auto) [place] % (Auto) Eos % (Auto) Baso % (Auto) Lymph # (Auto) [place] # (Auto) Eos # (Auto) Baso # (Auto) Abs Immat Gran (auto) Absolute Neuts (auto) Absolute Nucleated RBC (0.0-0.012) X10*3/uL Nucleated RBC % (auto) (0.0-0.2) /100WBC Neutrophils % (Manual) (45-73) % Band Neutrophils % (3-5) % Lymphocytes % (Manual) (20-40) % Abs Neuts (Manual) (2.2-7.9) X10*3/uL Lymphocytes # (Manual) (0.6-4.8) X10*3/uL Hypersegmented Neuts Toxic Vacuolation Dohle Bodies Platelet Estimate (NORMAL) Plt Morphology Comment RBC Morphology Hypochromasia /OIF Acanthocytes (Spur) /OIF Smear Path Review VBG pH 7.47 H (7.32-7.43) VBG pCO2 34 mmHg VBG pO2 65 mmHg VBG HCO3 25 (22-26) mmol/L VBG O2 Saturation 93.0 % VBG Base Excess 1.8 mmol/L Sodium (135-145) mmol/L Potassium (3.3-5.1) mmol/L Chloride (96-108) mmol/L Carbon Dioxide (22-29) mmol/L Anion Gap (12-20) BUN (9-16) mg/dL Creatinine (0.5-1.4) mg/dL Estim Creat Clear Calc Estimated GFR Random Glucose (60-115) mg/dL Lactic Acid (0.5-2.0) mmol/L Calcium (8.4-10.2) mg/dL Magnesium 1.4 L* (1.6-2.6) mg/dL Total Bilirubin (0.0-1.0) mg/dL AST (5-37) U/L ALT (0-40) U/L Alkaline Phosphatase (39-117) U/L Total Protein (6.5-8.0) g/dL Albumin (3.5-5.0) g/dL Lipase (8-78) U/L Urine Color STRAW Urine Appearance CLEAR Urine pH 5.5 (5.0-8.0) Ur Specific Worth 1.015 (1.005-1.025) Urine Protein TRACE (NEG-TRACE) MG/DL Urine Glucose (UA) 100 H (NEG) MG/DL Urine Ketones NEG (NEG) MG/DL Urine Blood NEG (NEG) Urine Nitrite NEG (NEG) Ur Leukocyte Esterase NEG (NEG) Acetone, Qual (Negative) Discharge Plan Discharge Clinical Impression: Acute urinary retention Patient Disposition: Home, Self-Care Instructions: Bailey Catheter Placement and Care (ED) Additional Instructions: 1. Resume all home medications as prescribed. 2. You will need to leave this Bailey catheter in place until you are evaluated by urology. You have been provided with a referral as listed below. 3. You must follow-up with your oncologist this morning for re-evaluation and further assessment. You have acknowledged understanding of this plan. Do not hesitate to return to the emergency department should you experience any acute worsening of your symptoms. Prescriptions: No Action pioglitazone 15 mg tablet 15 mg PO DAILY Qty: 90 RF: 1 tizanidine 4 mg tablet 4 mg PO BEDTIME PRN (Reason: muscle spasticity) Qty: 14 RF: 0 lisinopril 20 mg Tablet 20 mg PO DAILY RF: 0 amlodipine [Norvasc] 5 mg Tablet 5 mg PO DAILY RF: 0 aspirin [Aspirin Low Dose] 81 mg Tablet,Delayed Release (Dr/Ec) 81 mg PO DAILY RF: 0 tacrolimus [Prograf] 1 mg Capsule 4 mg PO BID RF: 0 Rayaldee 30 mcg Capsule,Extended Release 24 Hr 30 mcg PO BEDTIME RF: 0 mycophenolate sodium 180 mg tablet,delayed release (DR/EC) 540 mg PO BID RF: 0 gabapentin 100 mg capsule 200 mg PO BID PRN (Reason: neuropathic pain) 7 Days Qty: 28 RF: 0 (DME) pen needle, diabetic 31 gauge x 3/16 needle See Rx Instructions ea subcut .MEDSUPPLY Qty: 50 RF: 0 rosuvastatin 10 mg tablet 10 mg PO DAILY Qty: 30 RF: 6 insulin aspart U-100 [Novolog Flexpen U-100 Insulin] 100 unit/mL (3 mL) insulin pen 4 - 6 unit subcut TID 30 Days Qty: 15 RF: 3 Lantus Solostar U-100 Insulin 100 unit/mL (3 mL) insulin pen 30 unit SUBCUT DAILY Qty: 15 RF: 3 doxycycline hyclate 100 mg capsule 100 mg PO BID 30 Days Qty: 60 RF: 1 Referrals: Christian Cast MD [Physician] - 2 days (Evaluation and further outpatient management of acute urinary tension in patient with history of testicular cancer being followed at [facility].) Lianne Manuel MD [Primary Care Provider] - 2 days Interventions: ED Discharge Assessment Last Done: 10/05/20 06:59 Discharge Date/Time: 10/05/20 07:12
[2020-10-05 03:55] LABS: PLT CLUMP 1
[2020-10-05 03:56] LABS: Mean Corpuscular HGB Conc 32.7 g/dl (31.0-36.0); Mean Corpuscular Hemoglobin 29.9 pg (27.0-33.0); Mean Corpuscular Volume 91.4 fL (80-98); Platelet Count 101 X10*3/uL (160-400); Red Blood Count 2.21 X10*6/uL (4.60-5.80); Red Cell Distribution Width 18.2 % (11.0-16.0)
[2020-10-05 03:59] LABS: Hematocrit 20.2 % (42-52); Hemoglobin 6.6 g/dl (14.0-18.0)
[2020-10-05 04:00] LABS: Venous Blood Gas Refer to POC result
[2020-10-05 04:02] LABS: VBG Base Excess 1.8 mmol/L; VBG HCO3 25 mmol/L (22-26); VBG pCO2 34 mmHg; VBG pH 7.47 (7.32-7.43); VBG pO2 65 mmHg
[2020-10-05 04:09] LABS: Lactic Acid 0.9 mmol/L (0.5-2.0)
[2020-10-05 04:14] LABS: Acetone, serum QL Negative (Negative)
[2020-10-05 04:23] LABS: Alanine Aminotransferase 24 U/L (0-40); Albumin Level 3.1 g/dL (3.5-5.0); Alkaline Phosphatase 147 U/L (39-117); Anion Gap 13 (12-20); Aspartate Amino Transferase 16 U/L (5-37); Bilirubin Total 0.4 mg/dL (0.0-1.0); Blood Urea Nitrogen 11 mg/dL (9-16); Calcium 7.5 mg/dL (8.4-10.2); Carbon Dioxide 23 mmol/L (22-29); Chloride 102 mmol/L (96-108); Estimated Glomerular Filt Rate > 60; Glucose Random 124 mg/dL (60-115); Lipase 40 U/L (8-78); Potassium 3.4 mmol/L (3.3-5.1); Sodium 135 mmol/L (135-145); Total Protein 5.3 g/dL (6.5-8.0)
[2020-10-05 04:27] LABS: Magnesium 1.4 mg/dL (1.6-2.6)
[2020-10-05 04:35] LABS: Band Neutrophils Percent 3 % (3-5); Dohle Bodies PRESENT; Hypersegmented Neutrophils PRESENT; Hypochromasia 1+ (5-14) /OIF; Lymphocytes Absolute Manual 0.6 X10*3/uL (0.6-4.8); Lymphocytes Percent Manual 2 % (20-40); Neutrophils Absolute Manual 27.5 X10*3/uL (2.2-7.9); Neutrophils Percent Manual 95 % (45-73); Toxic Vacuolation PRESENT
[2020-10-05 04:36] LABS: Acanthocytes 1+ (0-2) /OIF; Platelet Estimate DECREASED (NORMAL); Platelet Morphology Comment NORMAL; RBC Morphology NOTED
[2020-10-05 04:48] VITALS: BP 105/61; PULSE 72; RESP 15; TEMP 37; O2SAT 99
[2020-10-05 05:04] LABS: Glucose Urine UA 100 MG/DL (NEG); Leukocyte Esterase Urine NEG (NEG); Nitrite Urine NEG (NEG); PH 5.5 (5.0-8.0); Specific Gravity - Urine 1.015 (1.005-1.025); Urine Blood NEG (NEG); Urine Ketones NEG (NEG); Urine Protein TRACE MG/DL (NEG-TRACE)
[2020-10-05 05:08] LABS: Appearance Urine CLEAR; Color Urine STRAW
[2020-10-05] MEDS: Magnesium Sulfate/D5W 1 GM/100 ML PIGGYBACK IV (05:30)
--- NOTE | 2020-10-05 06:05 | PC.NURSE ---
PT was being considered for admission due to abnormal labs. PT adamant that he did not want to be admitted and he only came here to be catheterized. PT stated that his labs have been abnormal throughout his chemotherapy treatment which was completed on Thursday. Provider said they are good with letting him go home as long as he follows up with his PCP later today. PT agrees to make appointment with PCP later today. PT will be given referral to urologist upon discharge.
== END 2020-10-05 07:12 | disposition home or self-care (01) ==
PROVIDERS: Emergency Provider Student in an Organized Health Care Education/Training Program; PCP Internal Medicine
DX: R33.9 Retention of urine, unspecified (principal); C62.90 Malignant neoplasm of unspecified testis, unspecified whether descended or undescended; E11.22 Type 2 diabetes mellitus with diabetic chronic kidney disease; I12.0 Hypertensive chronic kidney disease with stage 5 chronic kidney disease or end stage renal disease; N18.6 End stage renal disease; Z99.2 Dependence on renal dialysis; E78.5 Hyperlipidemia, unspecified; Z79.82 Long term (current) use of aspirin; Z79.899 Other long term (current) drug therapy; Z79.02 Long term (current) use of antithrombotics/antiplatelets; Z79.4 Long term (current) use of insulin
CPT/HCPCS: 36415; 51702; 51798; 80053; 81003; 82009; 83605; 83690; 83735; 85007; 85027; 85060; 96365; 99284; J3475

== ENCOUNTER → 2020-10-12 08:16 | Outpatient (BNVA) | payer OTHER, SELFPAY | PROVIDERS: PCP Internal Medicine; Visit Provider Urology | DX: C62.90 Malignant neoplasm of unspecified testis, unspecified whether descended or undescended (principal); R33.9 Retention of urine, unspecified | CPT/HCPCS: 51700; 99202 ==

== ENCOUNTER → 2020-11-09 09:12 | Outpatient (BNVA) | payer OTHER, SELFPAY | PROVIDERS: PCP Internal Medicine; Visit Provider Urology | DX: R33.9 Retention of urine, unspecified (principal); C62.90 Malignant neoplasm of unspecified testis, unspecified whether descended or undescended | CPT/HCPCS: 51798; 99212 ==

== ENCOUNTER → 2020-12-13 14:05 | Outpatient (BNVA) | payer OTHER, SELFPAY | PROVIDERS: PCP Internal Medicine; Visit Provider Nurse Practitioner Gerontology | DX: E11.21 Type 2 diabetes mellitus with diabetic nephropathy (principal); E11.22 Type 2 diabetes mellitus with diabetic chronic kidney disease; N18.30 Chronic kidney disease, stage 3 unspecified; I15.0 Renovascular hypertension; E78.00 Pure hypercholesterolemia, unspecified; E04.2 Nontoxic multinodular goiter; Z79.4 Long term (current) use of insulin | CPT/HCPCS: Q3014 ==

== ENCOUNTER 2020-12-27 10:33 | Outpatient (REF) | payer OTHER, SELFPAY ==
--- NOTE | ~2020-12-27 | US_ITS ---
EXAMINATION: US SCROTUM CLINICAL INFORMATION: Hydrocele unspecified. COMPARISON: None. TECHNIQUE: A sonogram of the scrotum was performed assessing enrique-scale appearance and color Doppler flow. Spectral Doppler analysis of the arterial and venous flow were performed in the testes bilaterally. FINDINGS: RIGHT: Right testicle measures 2.7 x 1.7 x 2.3 cm, volume 5.5 mL. Within the midportion of the right testicle, there is a heterogeneous, ovoid lesion measuring 0.9 x 0.7 x 0.9 cm. Spectral Doppler analysis of the arterial and venous flow is normal in the right testis. Right epididymal head is normal in size. No right hydrocele is seen. Minimal right-sided varicocele. Right epididymal Doppler flow is normal. LEFT: Left testicle measures 3.4 x 1.9 x 2.6 cm, volume 8.8 mL. Within the lateral aspect of the left testicle, there is a heterogeneous soft tissue lesion measuring 0.4 x 0.4 x 0.5 cm. Spectral Doppler analysis of the arterial and venous flow is normal in the left testis. Left epididymal head is normal in size. Simple left epididymal head cyst measuring 0.7 cm. No left hydrocele is seen. Minimal left-sided varicocele. Left epididymal Doppler flow is normal. US/US scrotum IMPRESSION: 1. Right testicular parenchymal ovoid lesion measuring 0.9 cm. Left testicular parenchyma ovoid lesion measuring 0.5 cm. Comparison with prior imaging is recommended to help further evaluate. 2. Minimal right and left-sided varicocele. 3. Simple left epididymal head cysts.
== END 2020-12-27 10:34 | disposition home or self-care (01) ==
LOC: HO.HMGCX 10:33
PROVIDERS: PCP Internal Medicine; Visit Provider Urology
DX: C62.90 Malignant neoplasm of unspecified testis, unspecified whether descended or undescended (principal); N43.3 Hydrocele, unspecified
CPT/HCPCS: 76870

== ENCOUNTER → 2021-01-22 14:55 | Outpatient (BNVA) | payer OTHER, SELFPAY | PROVIDERS: PCP Internal Medicine; Visit Provider Urology | CPT/HCPCS: Q3014 ==

== ENCOUNTER → 2021-05-17 08:55 | Outpatient (BNVA) | payer OTHER, SELFPAY | PROVIDERS: PCP Internal Medicine; Visit Provider Urology | DX: C62.90 Malignant neoplasm of unspecified testis, unspecified whether descended or undescended (principal) | CPT/HCPCS: 51798; 99212 ==

== ENCOUNTER 2021-06-05 08:20 | Outpatient (REF) | payer OTHER, SELFPAY ==
--- NOTE | ~2021-06-05 | US_ITS ---
EXAMINATION: US SCROTUM CLINICAL INFORMATION: Testicular seminoma. COMPARISON: Scrotal ultrasound 12/27/2020 TECHNIQUE: A sonogram of the scrotum was performed assessing enrique-scale appearance and color Doppler flow. Spectral Doppler analysis of the arterial and venous flow were performed in the testes bilaterally. FINDINGS: RIGHT: Right testicle measures 2.93 x 1.22 x 1.97 cm, volume 3.68 mL. There is a hypoechoic area in the superior right testicle. This has irregular margins and question focal punctate calcifications. This measures 9 x 8 x 8 mm and does not appear appreciably changed from December 2020 exam. There are small calcifications suggestive of microlithiasis. Spectral Doppler analysis of the arterial and venous flow is normal in the right testis. Right epididymal head is normal in size. Right epididymal Doppler flow is normal. There is a small right hydrocele. There is a small right varicocele. LEFT: Left testicle measures 3.52 x 1.62 x 2.74 cm, volume 8.18 mL. There is a 6 x 3 x 6 mm hypoechoic lesion in the inferior left testicle. This is not appreciably changed from previous exam December 2020. There are small calcifications suggestive of microlithiasis. Spectral Doppler analysis of the arterial and venous flow is normal in the left testis. The left epididymis is normal in size. There is a 6 x 5 x 6 mm left epididymal head cyst. Left epididymal Doppler flow is normal. There is a small left air is seen. There is no left hydrocele. US/US scrotum IMPRESSION: Stable bilateral testicular lesions from December 2020 ultrasound again suspicious for neoplasm.
== END 2021-06-05 08:21 | disposition home or self-care (01) ==
LOC: HO.HMGCX 08:20
PROVIDERS: PCP Internal Medicine; Visit Provider Urology
DX: C62.90 Malignant neoplasm of unspecified testis, unspecified whether descended or undescended (principal)
CPT/HCPCS: 76870

== ENCOUNTER → 2021-06-12 08:54 | Outpatient (BNVA) | payer OTHER, SELFPAY | PROVIDERS: PCP Internal Medicine; Visit Provider Registered Nurse Diabetes Educator ==

== ENCOUNTER → 2021-06-17 11:21 | Outpatient (BNVA) | payer OTHER, SELFPAY | PROVIDERS: PCP Internal Medicine; Visit Provider Registered Nurse Diabetes Educator | CPT/HCPCS: Q3014 ==

== ENCOUNTER → 2021-06-26 08:35 | Outpatient (BNVA) | payer OTHER, SELFPAY | PROVIDERS: PCP Internal Medicine; Visit Provider Urology | DX: C62.92 Malignant neoplasm of left testis, unspecified whether descended or undescended (principal); C62.91 Malignant neoplasm of right testis, unspecified whether descended or undescended | CPT/HCPCS: Q3014 ==

== ENCOUNTER → 2021-07-17 08:38 | Outpatient (BNVA) | payer OTHER, SELFPAY | PROVIDERS: Visit Provider Nurse Practitioner Gerontology | DX: E11.21 Type 2 diabetes mellitus with diabetic nephropathy (principal); E11.22 Type 2 diabetes mellitus with diabetic chronic kidney disease; I15.0 Renovascular hypertension; N18.30 Chronic kidney disease, stage 3 unspecified; E78.00 Pure hypercholesterolemia, unspecified; Z79.4 Long term (current) use of insulin | CPT/HCPCS: 82947; 99212 ==

== ENCOUNTER 2021-09-17 08:51 | Outpatient (RCR) | payer OTHER, SELFPAY ==
--- NOTE | ~2021-09-17 | XR_ITS ---
EXAMINATION: XR FOOT, LEFT CLINICAL INFORMATION: Rule out osteomyelitis COMPARISON: Left toe x-rays 03/12/2020 TECHNIQUE: AP, lateral, and oblique views of the left foot. FINDINGS: Bones of the midfoot are well aligned. No tarsal, metatarsal or phalangeal fracture. Mild degenerative changes of scattered IP joints, most predominantly involving the first toe. Small posterior and plantar calcaneal enthesophytes. There is no focal soft tissue swelling of the foot. No radiopaque foreign body. No gross cortical abnormalities to suggest osteomyelitis. Vascular calcifications are noted. XR/XR foot LT 2V IMPRESSION: No radiographic evidence to suggest osteomyelitis.
--- NOTE | ~2021-09-17 | XR_ITS ---
EXAMINATION: XR TOES, LEFT CLINICAL INFORMATION: Nonhealing wound; history of osteomyelitis. COMPARISON: Radiographs dated 10/25/2021. TECHNIQUE: Frontal, lateral and oblique views of the left toes were obtained. FINDINGS: There are now comminuted fractures of pathologic bone involving the base of the great toe distal phalanx and the neck of the proximal phalanx. There is underlying bony erosive change again seen, consistent with the provided history of osteomyelitis. There is generalized soft tissue swelling. No soft tissue gas is seen. No foreign body is seen. XR/XR toe LT min 2V IMPRESSION: Findings are again consistent with osteomyelitis. There are now comminuted fractures involving the great toe distal phalanx and the neck of the proximal phalanx, consistent with fractures of pathologic (osteomyelitic) bone. No soft tissue gas or foreign body is seen.
[2021-09-30 14:04] LABS: MANUAL DIFF FLAG NO
[2021-09-30 14:08] LABS: Basophils Percent Auto 0.3 % (0-2); Eosinophils Absolute Auto 0.1 X10*3/uL (0.0-0.4); Eosinophils Percent Auto 1.2 % (0-4); Hematocrit 39.9 % (42.0-52.0); Hemoglobin 12.9 g/dl (14.0-18.0); Imm Gran Abs Auto 0.06 X10*3/uL (0.00-0.03); Lymphocytes Absolute Auto 1.4 X10*3/uL (1.2-4.9); Lymphocytes Percent Auto 23.3 % (20-40); Mean Corpuscular HGB Conc 32.3 g/dl (31.0-36.0); Mean Corpuscular Volume 86.6 fL (80.0-98.0); Mean Platelet Volume 11.2 fL (9.4-12.4); Monocytes Absolute Auto 0.7 X10*3/uL (0.1-1.2); Monocytes Percent Auto 12.2 % (2-11); Neutrophils Absolute Auto 3.8 x10*3/uL (2.0-8.3); Platelet Count 151 X10*3/uL (160-400); Red Blood Count 4.61 X10*6/uL (4.60-5.80); Red Cell Distribution Width 13.8 % (11.0-16.0); White Blood Count 6.1 X10*3/uL (4.8-10.8)
[2021-09-30 14:22] LABS: Estimated Average Glucose 194 mg/dL; Hemoglobin A1c % 8.4 %
[2021-09-30 14:36] LABS: Anion Gap 13 (12-20); Blood Urea Nitrogen 16 mg/dL (9-16); C Reactive Protein 1.29 mg/dL (< or = 0.50); Calcium 9.4 mg/dL (8.4-10.2); Carbon Dioxide 25 mmol/L (22-29); Chloride 105 mmol/L (96-108); Estimated Glomerular Filt Rate 41; Glucose Random 257 mg/dL (60-115); Potassium 4.1 mmol/L (3.3-5.1); Sodium 139 mmol/L (135-145)
[2021-09-30 14:50] LABS: Erythrocyte Sedimentation Rate 25 MM/HR (0-15)
== END 2022-02-07 08:53 | disposition home or self-care (01) ==
LOC: HO.WCC 08:51
PROVIDERS: Surgery; Visit Provider Physician Assistant
DX: E11.621 Type 2 diabetes mellitus with foot ulcer (principal); L97.526 Non-pressure chronic ulcer of other part of left foot with bone involvement without evidence of necrosis; E11.69 Type 2 diabetes mellitus with other specified complication; M86.072 Acute hematogenous osteomyelitis, left ankle and foot; E11.51 Type 2 diabetes mellitus with diabetic peripheral angiopathy without gangrene; Z94.0 Kidney transplant status; D84.81 Immunodeficiency due to conditions classified elsewhere; Z79.2 Long term (current) use of antibiotics
CPT/HCPCS: 11042; 11043; 15275; 36415; 73620; 73660; 80048; 83036; 84134; 85025; 85652; 86140; 99212; Q4101

== ENCOUNTER 2021-10-25 14:10 | Emergency (ER) | payer OTHER, SELFPAY ==
--- NOTE | ~2021-10-25 | XR_ITS ---
EXAMINATION: XR TOES, LEFT CLINICAL INFORMATION: Nonhealing wound in the first digit. COMPARISON: 09/30/2021 left foot radiographs. TECHNIQUE: 3 views of the left toes were obtained. FINDINGS: Erosive changes are seen along the margins of the distal phalanx of the first digit, most pronounced in the plantar aspect. Mild lucency is seen along the distal/lateral aspect of the proximal phalanx. The remainder the digits are intact. The tarsal bones are normally aligned. Mild soft tissue swelling in the first digit. Moderate to severe small vessel arteriosclerosis. XR/XR toe LT min 2V IMPRESSION: Significant erosive changes in the distal phalanx of the first digit as well as minimal erosive changes in the distal/lateral aspect of the adjacent proximal phalanx concerning for osteomyelitis
[2021-10-25 14:14] VITALS: BP 128/83; PULSE 110; RESP 18; TEMP 37.3; O2SAT 98; BMI 29.5
[2021-10-25 14:58] LABS: Basophils Percent Auto 0.4 % (0-2); Eosinophils Absolute Auto 0.1 X10*3/uL (0.0-0.4); Hematocrit 37.3 % (42.0-52.0); Hemoglobin 11.9 g/dl (14.0-18.0); Imm Gran Abs Auto 0.14 X10*3/uL (0.00-0.03); Imm Gran Pct Auto 1.4 % (0.0-0.4); Lymphocytes Absolute Auto 1.7 X10*3/uL (1.2-4.9); Lymphocytes Percent Auto 17.2 % (20-40); MANUAL DIFF FLAG NO; Mean Corpuscular HGB Conc 31.9 g/dl (31.0-36.0); Mean Corpuscular Volume 84.8 fL (80.0-98.0); Mean Platelet Volume 9.9 fL (9.4-12.4); Monocytes Absolute Auto 1.3 X10*3/uL (0.1-1.2); Monocytes Percent Auto 13.1 % (2-11); Neutrophils Absolute Auto 6.5 x10*3/uL (2.0-8.3); Neutrophils Percent Auto 66.9 % (45-73); Platelet Count 307 X10*3/uL (160-400); Red Cell Distribution Width 13.1 % (11.0-16.0); White Blood Count 9.7 X10*3/uL (4.8-10.8)
[2021-10-25 15:03] LABS: Anion Gap 14 (12-20); Blood Urea Nitrogen 15 mg/dL (9-16); Calcium 9.3 mg/dL (8.4-10.2); Carbon Dioxide 25 mmol/L (22-29); Chloride 104 mmol/L (96-108); Creatinine Clr Calc Pharmacy 52.8; Estimated Glomerular Filt Rate 39; Glucose Random 132 mg/dL (60-115); Potassium 4.1 mmol/L (3.3-5.1); Sodium 139 mmol/L (135-145)
[2021-10-25 15:04] LABS: INTERNATIONAL NORM RATIO 1.5 (0.9-1.1); Prothrombin Time 17.5 SEC (9.9-13.0)
[2021-10-25 15:07] LABS: Lactic Acid 1.6 mmol/L (0.5-2.0)
== END 2021-10-25 22:58 | disposition left against medical advice (07) ==
PROVIDERS: Emergency Provider Emergency Medicine; PCP Internal Medicine
DX: L08.9 Local infection of the skin and subcutaneous tissue, unspecified (principal); S91.102D Unspecified open wound of left great toe without damage to nail, subsequent encounter; X58.XXXD Exposure to other specified factors, subsequent encounter
CPT/HCPCS: 36415; 73660; 80048; 83605; 85025; 85610; 87040; 99283

== ENCOUNTER 2021-10-26 06:24 | Inpatient (IN) | payer OTHER, SELFPAY ==
--- NOTE | ~2021-10-26 | IR_ITS ---
PROCEDURE: IR INSERTION OF TUNNEL CATHETER CLINICAL INFORMATION: Osteomyelitis in need for outpatient antibiotic therapy. Patient is previous dialysis patient. COMPARISON: 03/16/2020 TECHNIQUE: Placement of 5-Turkish single lumen Pro-Line catheter from a left internal jugular vein approach. All elements of maximal sterile barrier technique followed including use of cap, mask, sterile gown, sterile gloves, a sterile full body drape and hand hygiene. Also followed skin preparation with 2% chlorhexidine for cutaneous antisepsis, and sterile ultrasound preparation with sterile gel and probe cover when applicable. FINDINGS: Informed consent was obtained from the patient prior to the procedure. During this process, the procedure and potential alternatives were explained, along with the intended outcome and benefits. The risks of the procedure, as well as the risk of not doing the procedure, were discussed. The patient was given the opportunity to ask questions regarding the procedure and appeared competent to make medical decisions. A signed consent form which documents this discussion was placed in the medical record. Ultrasound of the neck was performed which demonstrated occlusion of the right internal jugular vein with some venous collaterals seen centrally medial to the right carotid artery. The left internal jugular vein is seen to be patent. Using sterile technique and ultrasound guidance, the right internal jugular vein was punctured and a guidewire directed to the right atrium. A 5-Turkish sheath was then placed over the guidewire. Attention was then turned to creating a tunnel track about the anterior left chest wall. The 5-Turkish catheter was then pulled through the tunnel track and trimmed to 28.5 cm in length. Over the guidewire a 5-Turkish peel-away sheath was placed and through the peel-away sheath, the Pro-Line catheter was advanced with its tip lying at the cavoatrial junction. The catheter aspirated and flushed freely and was flushed with heparin lock solution. The internal jugular puncture site was closed with tissue adhesive. Antiseptic disc was placed at the catheter exit site. FLUOROSCOPY TIME: 2.4 minutes DAP: 333 cGy-cm2 IR/IR cvc insert central tunnel IMPRESSION: Placement of left internal jugular Pro-Line catheter as described. Right internal jugular vein occlusion.
[2021-10-26 06:32] VITALS: BP 123/72; PULSE 112; RESP 18; TEMP 37.2; O2SAT 96; BMI 29.5
--- NOTE | 2021-10-26 06:35 | PC.NURSE ---
Pt refused labs in triage, he would like to wait for his IV to be placed for labs to be drawn.
--- NOTE | 2021-10-26 07:32 | ED.GENADULT ---
HPI - General Adult General Chief complaint: Extremity Injury, Lower Stated complaint: Toe infected Time Seen by Provider: 10/26/21 07:27 Source: patient Mode of arrival: ambulatory Limitations: no limitations History of Present Illness HPI narrative: 51 years old male came in for evaluation of left great toe infection. Patient has an old injury to the left toe, followed by his transplant registered nurse, patient has been on antibiotic for the great toe, increase swelling and redness over the great toe patient was advised to come to the hospital for further evaluation, had x-ray of the toe done yesterday which is concerning acute osteomyelitis. patient was taking Keflex oral antibiotic course as an outpatient. Patient is diabetic, status post kidney transplant. Related Data Home Medications Medication Instructions Recorded Confirmed amlodipine 5 mg tablet (Norvasc) 5 mg PO DAILY 03/14/20 10/26/21 aspirin 81 mg tablet,delayed 81 mg PO DAILY 03/14/20 10/26/21 release (Aspirin Low Dose) calcifediol 30 mcg capsule,24 30 mcg PO BEDTIME 03/14/20 10/26/21 hr,extended release (Rayaldee) lisinopril 20 mg tablet 20 mg PO DAILY 03/14/20 10/26/21 mycophenolate sodium 180 mg 540 mg PO BID 05/18/20 10/26/21 tablet,delayed release pen needle, diabetic 31 gauge x #50 ea 06/05/20 12/13/2008/28 apixaban 5 mg tablet 5 mg PO BID 10/12/20 10/26/21 metoprolol succinate 25 mg 25 mg PO DAILY 01/22/21 10/26/21 tablet,extended release 24 hr lancets 28 gauge (FreeStyle #100 ea 06/26/21 Lancets) everolimus (immunosuppressive) 1.5 mg PO BEDTIME 10/26/21 10/26/21 0.75 mg tablet insulin aspart U-100 100 unit/mL See Rx Instructions .ROUTE .COMPLEX 10/26/21 10/26/21 (3 mL) subcutaneous pen (Novolog Flexpen U-100 Insulin aspart) insulin glargine 100 unit/mL (3 18 unit SUBCUT DAILY 10/26/21 10/26/21 mL) subcutaneous pen (Lantus Solostar U-100 Insulin) Previous Rx's Medication Instructions Recorded 16 inch grab bar #1 ea 10/15/20 bed assist handle #1 ea 10/15/20 transport wheelchair #1 ea 10/15/20 walker (Ultra-Light Rollator) #1 ea 10/15/20 rosuvastatin 10 mg tablet 10 mg PO DAILY #30 tab 12/13/20 Allergies Allergy/AdvReac Type Severity Reaction Status Date / Time No Known Allergies Allergy Verified 07/17/21 09:44 Review of Systems Review of Systems: All other systems are reviewed and are negative Constitutional: Reports as per HPI and Reports no additional constitutional complaints Eyes: Reports as per HPI and Reports no additional eye complaints Reports system reviewed and no additional complaints, except as documented Cardiovascular: Reports as per HPI and Reports no additional cardiovascular complaints Respiratory: Reports as per HPI and Reports no additional respiratory complaints Gastrointestinal: Reports as per HPI and Reports no additional gastrointestinal complaints Genitourinary: Reports no additional female genitourinary complaints Musculoskeletal: Reports no additional musculoskeletal complaints Skin/Breast: Reports system reviewed and no additional complaints, except as docu Psychiatric: Reports no additional psychiatric complaints Endocrine: Reports no additional endocrine complaints Hematologic/Lymphatic: Reports no additional hematologic/lymphatic complaints Allergic/Immunologic: Reports no additional allergic/immunologic complaints Reports system reviewed and no additional complaints, except as documented and Reports Abnormal speech present [facility] Past Medical History Medical History 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 chronic kidney disease Bleeding internal hemorrhoids Carpal tunnel syndrome on left Chronic right shoulder pain Diabetes mellitus with diabetic nephropathy, with long-term current use of insulin Diabetes mellitus with foot ulcer End-stage renal disease on hemodialysis Hyperlipidemia Mixed dyslipidemia Multinodular goiter Osteomyelitis of left foot Paresthesia and pain of extremity Peripheral vascular disease Refused pneumococcal vaccination Secondary hyperparathyroidism of renal origin Seminoma Testicular 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 Sister No problems noted. Sister No problems noted. Social History Social History Household Members: Spouse and Children Alcohol intake: never Patient Tobacco Use Status: Never used Tobacco Advance Directives: No Current occupational status: unemployed Current occupation: disability - kidney transplant. Left side dominant Physical Exam ED Vital Signs: Vital Signs - 24 hr 10/26/21 06:32 10/26/21 10:38 Temperature 98.9 F 99.4 F Pulse Rate 112 H 80 Respiratory Rate 18 18 Blood Pressure 123/72 111/59 L Pulse Oximetry 96 98 BMI result Body Mass Index 29.5 vital signs have been reviewed as appeared to be correct. Blood pressure normal. Heart rate normal. Respiration rate normal. Temperature normal. Oxygen saturation normal. Appearance: Alert. Oriented X3. No acute distress. Head: Normal external exam. Normocephalic. Atraumatic. No Teixeira signs noted. No raccoon eyes noted Eyes: PERRLA. EOMI. Conjunctiva and sclera normal. Eyelids normal. ENT: TM's Normal. Pharynx normal. Uvula midline. Moist mucous membranes. No trismus noted. No drooling noted. No muffled voice noted. Neck: Normal inspection. Neck supple. FROM. No adenopathy. Thyroid Normal. No meningeal signs. No neck mass noted. CVS: Normal heart rate and rhythm. Heart sound normal. No murmurs noted. Pulses normal throughout. Respiratory: No respiratory distress. Painless inspiration. Breath sounds normal. No wheezes/rales/rhonchi noted. Chest nontender. No accessory muscle usage noted or decreased air movement noted. Abdomen: Soft and nontender. Bowel sounds normal in all 4 quadrants. No distention noted. No organomegaly noted. No visible injury noted. Back: No CVA tenderness. Full range of motion noted. Skin: Skin warm and dry. Normal skin color. Normal skin turgor. No rashes/lesions/lacerations noted. Extremities: Left great toe exam: Swelling of the entire toe, redness, hotness, small ulcerative lesion at the sole of great toe, no fluctuation or discharge. Neuro: Oriented X 3. Cranial nerve exam: II-XII are grossly intact No motor deficit. No sensory deficit. Reflexes normal. Course Course Course Narrative: Assessment and plan. 51-year-old diabetic male came in with left great toe worsening infection x-ray is showing early osteomyelitis patient failed oral antibiotic. patient do not meet sepsis criteria, no septic shock, no severe sepsis. Admit for further IV antibiotic . Medical Decision Making Lab Data Lab results reviewed: Yes I reviewed the patient's lab results. Result diagrams: 10/26/21 08:23 10/26/21 09:04 Labs: Lab Results 10/26/21 10/26/21 10/26/21 Range/Units 08:23 08:23 09:04 WBC 9.4 (4.8-10.8) X10*3/uL RBC 4.10 L (4.60-5.80) X10*6/uL Hgb 11.1 L (14.0-18.0) g/dl Hct 34.4 L (42.0-52.0) % MCV 83.9 (80.0-98.0) fL MCH 27.1 (27.0-33.0) pg MCHC 32.3 (31.0-36.0) g/dl RDW 13.2 (11.0-16.0) % Plt Count 299 (160-400) X10*3/uL MPV 10.2 (9.4-12.4) fL Immature Gran % (Auto) 1.8 H (0.0-0.4) % Neut % (Auto) 70.5 (45-73) % Lymph % (Auto) 15.1 L (20-40) % Smyth % (Auto) 11.2 H (2-11) % Eos % (Auto) 1.1 (0-4) % Baso % (Auto) 0.3 (0-2) % Lymph # (Auto) 1.4 (1.2-4.9) X10*3/uL Smyth # (Auto) 1.1 (0.1-1.2) X10*3/uL Eos # (Auto) 0.1 (0.0-0.4) X10*3/uL Baso # (Auto) 0.0 (0.0-0.2) X10*3/uL Abs Immat Gran (auto) 0.17 H (0.00-0.03) X10*3/uL Absolute Neuts (auto) 6.6 (2.0-8.3) x10*3/uL Absolute Nucleated RBC 0.000 (0.0-0.012) X10*3/uL Nucleated RBC % (auto) 0.0 (0.0-0.2) /100WBC Sodium 140 (135-145) mmol/L Potassium 4.5 (3.3-5.1) mmol/L Chloride 106 (96-108) mmol/L Carbon Dioxide 25 (22-29) mmol/L Anion Gap 14 (12-20) BUN 16 (9-16) mg/dL Creatinine 1.82 H (0.5-1.4) mg/dL Estim Creat Clear Calc 54.0 Estimated GFR 40 Random Glucose 228 H D (60-115) mg/dL Lactic Acid 1.0 (0.5-2.0) mmol/L Calcium 8.8 (8.4-10.2) mg/dL Total Bilirubin 0.3 (0.0-1.0) mg/dL AST 23 D (5-37) U/L ALT 28 (0-40) U/L Alkaline Phosphatase 68 D (39-117) U/L Total Protein 6.6 D (6.5-8.0) g/dL Albumin 3.5 (3.5-5.0) g/dL COVID-19 (CARLIN) (Negative) COVID-19 Clin Com 10/26/21 Range/Units 11:56 WBC (4.8-10.8) X10*3/uL RBC (4.60-5.80) X10*6/uL Hgb (14.0-18.0) g/dl Hct (42.0-52.0) % MCV (80.0-98.0) fL MCH (27.0-33.0) pg MCHC (31.0-36.0) g/dl RDW (11.0-16.0) % Plt Count (160-400) X10*3/uL MPV (9.4-12.4) fL Immature Gran % (Auto) (0.0-0.4) % Neut % (Auto) (45-73) % Lymph % (Auto) (20-40) % Smyth % (Auto) (2-11) % Eos % (Auto) (0-4) % Baso % (Auto) (0-2) % Lymph # (Auto) (1.2-4.9) X10*3/uL Smyth # (Auto) (0.1-1.2) X10*3/uL Eos # (Auto) (0.0-0.4) X10*3/uL Baso # (Auto) (0.0-0.2) X10*3/uL Abs Immat Gran (auto) (0.00-0.03) X10*3/uL Absolute Neuts (auto) (2.0-8.3) x10*3/uL Absolute Nucleated RBC (0.0-0.012) X10*3/uL Nucleated RBC % (auto) (0.0-0.2) /100WBC Sodium (135-145) mmol/L Potassium (3.3-5.1) mmol/L Chloride (96-108) mmol/L Carbon Dioxide (22-29) mmol/L Anion Gap (12-20) BUN (9-16) mg/dL Creatinine (0.5-1.4) mg/dL Estim Creat Clear Calc Estimated GFR Random Glucose (60-115) mg/dL Lactic Acid (0.5-2.0) mmol/L Calcium (8.4-10.2) mg/dL Total Bilirubin (0.0-1.0) mg/dL AST (5-37) U/L ALT (0-40) U/L Alkaline Phosphatase (39-117) U/L Total Protein (6.5-8.0) g/dL Albumin (3.5-5.0) g/dL COVID-19 (CARLIN) Negative (Negative) COVID-19 Clin Com See Note Imaging Data Left foot x-ray: Attestation: I personally reviewed and interpreted this imaging study as follows: Radiologist's impression: Significant erosive changes in the distal phalanx of the first digit as well as minimal erosive changes in the distal/lateral aspect of the adjacent proximal phalanx concerning for osteomyelitis. Discharge Plan Discharge Clinical Impression: Osteomyelitis of great toe of left foot, Cellulitis of great toe, left Patient Disposition: Admitted As Inpatient
[2021-10-26 08:35] LABS: MANUAL DIFF FLAG NO
[2021-10-26 08:38] LABS: Basophils Percent Auto 0.3 % (0-2); Eosinophils Absolute Auto 0.1 X10*3/uL (0.0-0.4); Eosinophils Percent Auto 1.1 % (0-4); Hematocrit 34.4 % (42.0-52.0); Hemoglobin 11.1 g/dl (14.0-18.0); Imm Gran Abs Auto 0.17 X10*3/uL (0.00-0.03); Imm Gran Pct Auto 1.8 % (0.0-0.4); Lymphocytes Absolute Auto 1.4 X10*3/uL (1.2-4.9); Lymphocytes Percent Auto 15.1 % (20-40); Mean Corpuscular HGB Conc 32.3 g/dl (31.0-36.0); Mean Corpuscular Hemoglobin 27.1 pg (27.0-33.0); Mean Corpuscular Volume 83.9 fL (80.0-98.0); Mean Platelet Volume 10.2 fL (9.4-12.4); Monocytes Absolute Auto 1.1 X10*3/uL (0.1-1.2); Monocytes Percent Auto 11.2 % (2-11); Neutrophils Absolute Auto 6.6 x10*3/uL (2.0-8.3); Neutrophils Percent Auto 70.5 % (45-73); Platelet Count 299 X10*3/uL (160-400); Red Cell Distribution Width 13.2 % (11.0-16.0); White Blood Count 9.4 X10*3/uL (4.8-10.8)
[2021-10-26] MEDS: Piperacillin Sodium/Tazobactam 3.375 GM in 0.9 % Sodium Chloride 50 ML IV ×3 (09:09→22:29)
[2021-10-26] MEDS: 0.9 % Sodium Chloride 1,000 ML 999 ML IV (09:11)
[2021-10-26 09:37] LABS: Alanine Aminotransferase 28 U/L (0-40); Albumin Level 3.5 g/dL (3.5-5.0); Alkaline Phosphatase 68 U/L (39-117); Anion Gap 14 (12-20); Aspartate Amino Transferase 23 U/L (5-37); Bilirubin Total 0.3 mg/dL (0.0-1.0); Blood Urea Nitrogen 16 mg/dL (9-16); Calcium 8.8 mg/dL (8.4-10.2); Carbon Dioxide 25 mmol/L (22-29); Chloride 106 mmol/L (96-108); Estimated Glomerular Filt Rate 40; Glucose Random 228 mg/dL (60-115); Potassium 4.5 mmol/L (3.3-5.1); Sodium 140 mmol/L (135-145); Total Protein 6.6 g/dL (6.5-8.0)
[2021-10-26] MEDS: vancomycin HCL 1,000 MG in 0.9 % Sodium Chloride 250 ML 270 MG IV (09:52)
[2021-10-26 10:38] VITALS: BP 111/59; PULSE 80; RESP 18; TEMP 37.4; O2SAT 98
[2021-10-26 12:20] LABS: COVID-19 Test Negative (Negative); IDNOW Serial# 55D5AD1C
--- NOTE | 2021-10-26 12:50 | P.HPHOSP_ITS ---
History of Present Illness Date of Service: 10/26/21 Chief Complaint: Left big toe 51 year old male with multiple medica issues as listed belowincluding history of left big toe osteomyltis that has been treated IV antibitocs in the past and most recently has been on PO by a outpatient program coordinator but doesn't think it is getting better. Left AMA yesterday from ED after xray of the foot was done. 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 chronic kidney disease Bleeding internal hemorrhoids Carpal tunnel syndrome on left Chronic right shoulder pain Diabetes mellitus with diabetic nephropathy, with long-term current use of insulin Diabetes mellitus with foot ulcer End-stage renal disease on hemodialysis Hyperlipidemia Mixed dyslipidemia Multinodular goiter Osteomyelitis of left foot Paresthesia and pain of extremity Peripheral vascular disease Refused pneumococcal vaccination Secondary hyperparathyroidism of renal origin Seminoma Testicular cancer Type 2 diabetes mellitus with chronic kidney disease Type 2 diabetes mellitus with hyperglycemia, with long-term current use of insulin Vaccination refused by patient Family History Father Unknown family medical history Mother Diabetes mellitus HTN (hypertension) CVD (cardiovascular disease) History of CVA (cerebrovascular accident) Stroke Sister Diabetes mellitus Daughter No problems noted. Sister No problems noted. Sister No problems noted. Surgical History History of kidney transplant Social History Household Members: Spouse and Children Alcohol intake: never Patient Tobacco Use Status: Never used Tobacco Advance Directives: No Current occupational status: unemployed Current occupation: disability - kidney transplant. Left side dominant Meds Allergies Allergy/AdvReac Type Severity Reaction Status Date / Time No Known Allergies Allergy Verified 07/17/21 09:44 Active Medications: Current Medications Pharmacy Consult (Consult Rx Vancomycin Dosing) 1 each MISCELLANE DAILY PRN PRN Reason: Consult order Pharmacy Consult (Consult Rx Perform Med Rec) 1 each MISCELLANE ONCE PRN PRN Reason: Consult order Home Medications Medication Instructions Recorded Confirmed Last Taken Type amlodipine 5 mg tablet (Norvasc) 5 mg PO DAILY 03/14/20 10/26/21 10/26/21 History aspirin 81 mg tablet,delayed 81 mg PO DAILY 03/14/20 10/26/21 10/26/21 History release (Aspirin Low Dose) calcifediol 30 mcg capsule,24 30 mcg PO BEDTIME 03/14/20 10/26/21 10/26/21 History hr,extended release (Rayaldee) lisinopril 20 mg tablet 20 mg PO DAILY 03/14/20 10/26/21 10/26/21 History mycophenolate sodium 180 mg 540 mg PO BID 05/18/20 10/26/21 10/26/21 History tablet,delayed release pen needle, diabetic 31 gauge x #50 ea 06/05/20 12/13/20 Unknown History 3/16 apixaban 5 mg tablet 5 mg PO BID 10/12/20 10/26/21 10/26/21 History metoprolol succinate 25 mg 25 mg PO DAILY 01/22/21 10/26/21 10/26/21 History tablet,extended release 24 hr lancets 28 gauge (FreeStyle #100 ea 06/26/21 Unknown History Lancets) everolimus (immunosuppressive) 1.5 mg PO BEDTIME 10/26/21 10/26/21 10/26/21 History 0.75 mg tablet insulin aspart U-100 100 unit/mL See Rx Instructions .ROUTE .COMPLEX 10/26/21 10/26/21 10/26/21 History (3 mL) subcutaneous pen (Novolog Flexpen U-100 Insulin aspart) insulin glargine 100 unit/mL (3 18 unit SUBCUT DAILY 10/26/21 10/26/21 10/26/21 History mL) subcutaneous pen (Lantus Solostar U-100 Insulin) Physical Exam Vital Signs and Narrative: Vital Signs: Last Vital Signs Temp 99.4 F 10/26/21 10:38 Pulse 80 05/14/22 10:38 Resp 18 10/26/21 10:38 BP 111/59 L 10/26/21 10:38 Pulse Ox 98 10/26/21 10:38 BMI result Body Mass Index 29.5 Const: Other: Constitutional: Alert, in no distress Mental Status: Oriented to person, place and time. Eyes: Pupils are equal, round and reactive to light. Ear, Nose and Throat: Oropharynx clear, mucous membranes moist. Ears and nose without eformities. Trachea midline. Respiratory: Clear to auscultation. No wheezing, rales or rhonchi. Cardiovascular: S1 S2 regular. No murmurs, rubs or gallops. Gastrointestinal: Abdomen soft, non-tender, non-distended. Normal bowel sounds.? Neurologic: Cranial nerves II-XII grossly intact. No focal neurological deficits. Moves all extremities spontaneously.? Skin: No rashes or lesions.? Musculoskeletal: No cyanosis or clubbing. Psychiatric: Normal mood and affect? Results Labs CBC and Chem 7: 10/26/21 08:23 10/26/21 09:04 Labs: Laboratory Results - last 24 hr 10/26/21 10/26/21 10/26/21 08:23 08:23 09:04 MCV 83.9 MCH 27.1 MCHC 32.3 RDW 13.2 Plt Count 299 MPV 10.2 Immature Gran % (Auto) 1.8 H Neut % (Auto) 70.5 Lymph % (Auto) 15.1 L Cowley % (Auto) 11.2 H Eos % (Auto) 1.1 Baso % (Auto) 0.3 Lymph # (Auto) 1.4 Cowley # (Auto) 1.1 Eos # (Auto) 0.1 Baso # (Auto) 0.0 Abs Immat Gran (auto) 0.17 H Absolute Neuts (auto) 6.6 Absolute Nucleated RBC 0.000 Nucleated RBC % (auto) 0.0 Anion Gap 14 Estim Creat Clear Calc 54.0 Estimated GFR 40 Random Glucose 228 H D Lactic Acid 1.0 Calcium 8.8 Total Bilirubin 0.3 AST 23 D ALT 28 Alkaline Phosphatase 68 D Total Protein 6.6 D Albumin 3.5 COVID-19 (CARLIN) COVID-19 Clin Com 10/26/21 11:56 MCV MCH MCHC RDW Plt Count MPV Immature Gran % (Auto) Neut % (Auto) Lymph % (Auto) Cowley % (Auto) Eos % (Auto) Baso % (Auto) Lymph # (Auto) Cowley # (Auto) Eos # (Auto) Baso # (Auto) Abs Immat Gran (auto) Absolute Neuts (auto) Absolute Nucleated RBC Nucleated RBC % (auto) Anion Gap Estim Creat Clear Calc Estimated GFR Random Glucose Lactic Acid Calcium Total Bilirubin AST ALT Alkaline Phosphatase Total Protein Albumin COVID-19 (CARLIN) Negative COVID-19 Clin Com See Note Assessment and Plan (1) Osteomyelitis of great toe of left foot: Status: Acute Plan 51 years old male with PMH of diabetes, history of left big toe osteomylitis, HTN, kidney transplant among others who presented to the hospital complaining of left big toe pain, swelling and wound. Osteomyelitis of the left big toe, this recurrent. IV Zosyn, PO Doxy. ID consult, perhaps needs amputation, surgery consult CKD/renal transplant, Cr is slightly worse than past baseline Continue mycophenolate and tacrolimus Monitor BMP Avoid nephrotoxic medications renal consult Diabetes. Blood sugar? stable, continue insulin Sliding scale,ADA diet Continue long acting insulin. Hypertension BP stable, Continue home medications. DVT prophylaxis Heparin Quality Stroke Does the patient have a stroke diagnosis?: No VTE Prior VTE?: No VTE Risk Level:: Medical - moderate - high VTE Device Contraindication: Treatment Not Tolerated VTE Drug Contraindication: N/A - Med Ordered
--- NOTE | 2021-10-26 13:58 | PHA.MEDREC ---
Pharmacy Consult ? Medication Reconciliation Pharmacy has completed the medication reconciliation.
[2021-10-26 16:18] VITALS: BP 122/58; PULSE 68; RESP 16; TEMP 36.5; O2SAT 100
[2021-10-26] MEDS: Apixaban 5 MG TABLET PO (22:36)
[2021-10-27] MEDS: Piperacillin Sodium/Tazobactam 3.375 GM in 0.9 % Sodium Chloride 50 ML IV ×4 (03:55→20:35)
[2021-10-27 04:07] VITALS: BP 121/64; PULSE 84; RESP 18; TEMP 36.8; O2SAT 96
[2021-10-27 07:32] VITALS: BP 104/57; PULSE 83; RESP 15; TEMP 37.1; O2SAT 98
[2021-10-27] MEDS: Insulin Glargine,Hum.rec.anlog 100 UNIT/ML 10 ML VIAL 18 UNIT SUBCUT (08:59)
[2021-10-27] MEDS: amLODIPine Besylate 5 MG TABLET PO (09:00)
[2021-10-27] MEDS: Metoprolol Succinate ER 25 MG TAB.ER.24H PO (09:00)
[2021-10-27] MEDS: Atorvastatin Calcium 40 MG TABLET PO (09:00)
[2021-10-27] MEDS: Apixaban 5 MG TABLET PO ×2 (09:00→20:35)
[2021-10-27] MEDS: 0.9 % Sodium Chloride Flush 3 ML SYRINGE IVFLUSH (09:01)
[2021-10-27 09:05] VITALS: BP 110/65; PULSE 79
--- NOTE | 2021-10-27 10:42 | PC.NURSE ---
taking over care of patient at this time. pt is ambulatory independently with steady gait but reports pain in left toe/foot. aware of plan of care, denied having any questions at this time. aox4 resp even and unlabored, skin pwd aside from wound on left foot. wound at this time is wrapped.
[2021-10-27 10:45] VITALS: BP 116/60; PULSE 74; RESP 18; TEMP 36.6; O2SAT 99
--- NOTE | 2021-10-27 11:08 | P.PNIM_ITS ---
Subjective Subjective Date of Service: 10/28/21 Review of Systems Follow-up on osteomyelitis of the left big toe no fever or chills, no pain, Physical Exam Vital Signs: Vital Signs: Last Vital Signs Temp 97.9 F 10/27/21 10:45 Pulse 74 10/27/21 10:45 Resp 18 10/27/21 10:45 BP 116/60 10/27/21 10:45 Pulse Ox 99 10/27/21 10:45 BMI result Body Mass Index 29.5 Const: Other: General: AO X 3, no acute distress Resp: CTA bilateral CVS: S1,S2,RRR GI: +BS, NT, no distention Skin: No rash Neuro: motor grossly intact Psych: appropriate affect Objective Data Active Medications Acetaminophen (Acetaminophen 325 Mg Tablet) 650 mg PO Q6H PRN PRN Reason: Pain, Mild (Pain Scale 1-3) Amlodipine Besylate (Amlodipine Besylate 5 Mg Tablet) 5 mg PO DAILY [facility]; Protocol Last Admin: 10/27/21 09:00 Dose: 5 mg Documented by: MUKESH Apixaban (Apixaban 5 Mg Tablet) 5 mg PO BID [facility] Last Admin: 10/27/21 09:00 Dose: 5 mg Documented by: MUKESH Aspirin (Aspirin Enteric Coated 81 Mg Tablet.Dr) 81 mg PO DAILY [facility] Last Admin: 10/27/21 09:09 Dose: Not Given Documented by: MUKESH Non-Admin Reason: Patient no longer takes; OK to hold per Atorvastatin Calcium (Atorvastatin Calcium 40 Mg Tablet) 40 mg PO DAILY [facility] Last Admin: 10/27/21 09:00 Dose: 40 mg Documented by: MUKESH Piperacillin Sod/Tazobactam (Sod 3.375 gm/ Sodium Chloride) 50 mls @ 100 mls/hr IV Q6H [facility] Last Infusion: 10/27/21 09:51 Dose: 0 mls/hr Documented by: MUKESH Insulin Glargine (Insulin Glargine,Hum.Rec.Anlog 100 Unit/Ml 10 Ml Vial) 18 unit SUBCUT DAILY [facility] Last Admin: 10/27/21 08:59 Dose: 18 unit Documented by: MUKESH Lisinopril (Lisinopril 20 Mg Tablet) 20 mg PO DAILY [facility]; Protocol Last Admin: 10/27/21 09:09 Dose: Not Given Documented by: MUKESH Non-Admin Reason: Patient no longer takes; OK to hold per Melatonin (Melatonin 3 Mg Tablet) 6 mg PO BEDTIME PRN PRN Reason: Insomnia Metoprolol Succinate (Metoprolol Succinate Er 25 Mg Tab.Er.24h) 25 mg PO DAILY [facility]; Protocol Last Admin: 10/27/21 09:00 Dose: 25 mg Documented by: MUKESH Non-Formulary Medication (Calcifediol [Rayaldee]) 30 mcg PO BEDTIME [facility] Non-Formulary Medication (Everolimus (Immunosuppressive)) 1.5 mg PO BEDTIME [facility] Non-Formulary Medication (Mycophenolate Sodium) 540 mg PO BID [facility] Oxycodone HCl (Oxycodone Hcl Immed Release 5 Mg Tablet) 5 mg PO Q6H PRN PRN Reason: Pain, Severe (Pain Scale 7-10) Pharmacy Consult (Consult Rx Vancomycin Dosing) 1 each MISCELLANE DAILY PRN PRN Reason: Consult order Pharmacy Consult (Consult Rx Perform Med Rec) 1 each MISCELLANE ONCE PRN PRN Reason: Consult order Sodium Chloride (0.9 % Sodium Chloride Flush 3 Ml Syringe) 3 ml IVFLUSH QSHIFT [facility] Last Admin: 10/27/21 09:01 Dose: 3 ml Documented by: MUKESH Labs CBC & Chem 7: 10/26/21 08:23 10/26/21 09:04 Labs: Laboratory Results - last 24 hr 10/26/21 11:56 COVID-19 ([facility]) Negative COVID-19 Clin Com See Note Microbiology Microbiology Results: Microbiology 10/26/21 08:23 Blood Culture - Preliminary Blood - Venous No growth after 24 hours. 10/26/21 08:23 Blood Culture - Preliminary Blood - Venous No growth after 24 hours. Assessment and Plan (1) Osteomyelitis of great toe of left foot: Status: Acute Plan 51 years old male with PMH of diabetes, history of left big toe osteomylitis, HTN, kidney transplant among others who presented to the hospital complaining of left big toe pain, swelling and wound. Osteomyelitis of the left big toe, this recurrent. IV Zosyn, PO Doxy. ID consult, perhaps needs amputation, surgery consult CKD/renal transplant, Cr is slightly worse than past baseline Continue mycophenolate and tacrolimus Monitor BMP Avoid nephrotoxic medications renal consult Diabetes. Blood sugar? stable, continue insulin Sliding scale,ADA diet Continue long acting insulin. Hypertension BP stable, Continue home medications. DVT prophylaxis Heparin Need for inpatient: IV antibiotics for osteomyelitis, waiting for culture to determine outpatient antibiotics and evaluation by specialist for proper antibiotics. Quality Stroke Does the patient have a stroke diagnosis?: No VTE Prior VTE?: No VTE Risk Level:: Medical - moderate - high VTE Device Contraindication: Treatment Not Tolerated VTE Drug Contraindication: N/A - Med Ordered
--- NOTE | 2021-10-27 12:27 | P.CONNP_ITS ---
History of Present Illness Reason for Consult Consult date: 10/27/21 Reason for consult: Renal Transplant Chief Complaint Chief complaint: Osteomylitis of Big Toe History of Present Illness Narrative: The patient is a 51 yo male with past medical history of ESRD d/t diabetic nephropathy s/p renal trasnplant via [facility] from his in 2017 maintained now on everolimus, history of hypertension, AF, primary testicular seminoma, c. diff, and type 1 diabetes who presented to [facility] on 10/26 for evaluation of left great toe infection. 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 Patient h as been taking Keflex oral antibiotic course as an outpatient. Despite abx, he had increase swelling and redness over the great toe patient was advised to come to the hospital for further evaluation. Imaging performed was concerning for acute osteomyelitis. At time of presentation, his BUN/Cr noted to be 16/1.86 mg/dL. His BL S-Cr appears to be 1.6-1.8 mg/dL He denies hematuria/dysuria. No noted urinary retention. ROS otherwise negative. Review of Systems Review of Systems Yes all other systems are reviewed and are negative PMF Past Medical History Medical History 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 chronic kidney disease Bleeding internal hemorrhoids Carpal tunnel syndrome on left Chronic right shoulder pain Diabetes mellitus with diabetic nephropathy, with long-term current use of insulin Diabetes mellitus with foot ulcer End-stage renal disease on hemodialysis Hyperlipidemia Mixed dyslipidemia Multinodular goiter Osteomyelitis of left foot Paresthesia and pain of extremity Peripheral vascular disease Refused pneumococcal vaccination Secondary hyperparathyroidism of renal origin 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 Sister No problems noted. Sister No problems noted. Surgical History Surgical History History of kidney transplant Social History Social History Household Members: Spouse and Children Alcohol intake: never Patient Tobacco Use Status: Never used Tobacco Advance Directives: No Current occupational status: unemployed Current occupation: disability - kidney transplant. Left side dominant Meds Allergies Allergy/AdvReac Type Severity Reaction Status Date / Time No Known Allergies Allergy Verified 07/17/21 09:44 Active Medications: Current Medications Acetaminophen (Acetaminophen 325 Mg Tablet) 650 mg PO Q6H PRN PRN Reason: Pain, Mild (Pain Scale 1-3) Amlodipine Besylate (Amlodipine Besylate 5 Mg Tablet) 5 mg PO DAILY [facility]; Protocol Last Admin: 10/27/21 09:00 Dose: 5 mg Documented by: Apixaban (Apixaban 5 Mg Tablet) 5 mg PO BID [facility] Last Admin: 10/27/21 09:00 Dose: 5 mg Documented by: Aspirin (Aspirin Enteric Coated 81 Mg Tablet.) 81 mg PO DAILY [facility] Last Admin: 10/27/21 09:09 Dose: Not Given Documented by: Atorvastatin Calcium (Atorvastatin Calcium 40 Mg Tablet) 40 mg PO DAILY [facility] Last Admin: 10/27/21 09:00 Dose: 40 mg Documented by: Piperacillin Sod/Tazobactam (Sod 3.375 gm/ Sodium Chloride) 50 mls @ 100 mls/hr IV Q6H [facility] Last Infusion: 10/27/21 09:51 Dose: Infused Documented by: Insulin Glargine (Insulin Glargine,Hum.Rec.Anlog 100 Unit/Ml 10 Ml Vial) 18 uni t SUBCUT DAILY [facility] Last Admin: 10/27/21 08:59 Dose: 18 unit Documented by: Lisinopril (Lisinopril 20 Mg Tablet) 20 mg PO DAILY [facility]; Protocol Last Admin: 10/27/21 09:09 Dose: Not Given Documented by: Melatonin (Melatonin 3 Mg Tablet) 6 mg PO BEDTIME PRN PRN Reason: Insomnia Metoprolol Succinate (Metoprolol Succinate Er 25 Mg Tab.Er.24h) 25 mg PO DAILY [facility]; Protocol Last Admin: 10/27/21 09:00 Dose: 25 mg Documented by: Non-Formulary Medication (Calcifediol [Rayaldee]) 30 mcg PO BEDTIME [facility] Non-Formulary Medication (Everolimus (Immunosuppressive)) 1.5 mg PO BEDTIME [facility] Non-Formulary Medication (Mycophenolate Sodium) 540 mg PO BID [facility] Oxycodone HCl (Oxycodone Hcl Immed Release 5 Mg Tablet) 5 mg PO Q6H PRN PRN Reason: Pain, Severe (Pain Scale 7-10) Pharmacy Consult (Consult Rx Vancomycin Dosing) 1 each MISCELLANE DAILY PRN PRN Reason: Consult order Pharmacy Consult (Consult Rx Perform Med Rec) 1 each MISCELLANE ONCE PRN PRN Reason: Consult order Sodium Chloride (0.9 % Sodium Chloride Flush 3 Ml Syringe) 3 ml IVFLUSH QSHIFT [facility] Last Admin: 10/27/21 09:01 Dose: 3 ml Documented by: Home Medications Medication Instructions Recorded Confirmed Last Taken Type amlodipine 5 mg tablet (Norvasc) 5 mg PO DAILY 03/14/20 10/26/21 10/26/21 History aspirin 81 mg tablet,delayed 81 mg PO DAILY 03/14/20 10/26/21 10/26/21 History release (Aspirin Low Dose) calcifediol 30 mcg capsule,24 30 mcg PO BEDTIME 03/14/20 10/26/21 10/26/21 History hr,extended release (Rayaldee) lisinopril 20 mg tablet 20 mg PO DAILY 03/14/20 10/26/21 10/26/21 History mycophenolate sodium 180 mg 540 mg PO BID 05/18/20 10/26/21 10/26/21 History tablet,delayed release pen needle, diabetic 31 gauge x #50 ea 06/05/20 12/13/20 Unknown History 3/16 apixaban 5 mg tablet 5 mg PO BID 10/12/20 10/26/21 10/26/21 History metoprolol succinate 25 mg 25 mg PO DAILY 01/22/21 10/26/21 10/26/21 History tablet,extended release 24 hr lancets 28 gauge (FreeStyle #100 ea 06/26/21 Unknown History Lancets) everolimus (immunosuppressive) 1.5 mg PO BEDTIME 10/26/21 10/26/21 10/26/21 History 0.75 mg tablet insulin aspart U-100 100 unit/mL See Rx Instructions .ROUTE .COMPLEX 10/26/2110/26/21 History (3 mL) subcutaneous pen (Novolog Flexpen U-100 Insulin aspart) insulin glargine 100 unit/mL (3 18 unit SUBCUT DAILY 10/26/21 10/26/21 10/26/21 History mL) subcutaneous pen (Lantus Solostar U-100 Insulin) Physical Exam Vital Signs: Last Vital Signs Temp 97.9 F 10/27/21 10:45 Pulse 74 10/27/21 10:45 Resp 18 10/27/21 10:45 BP 116/60 10/27/21 10:45 Pulse Ox 99 10/27/21 10:45 BMI result Body Mass Index 29.5 Const General: cooperative and no acute distress Orientation/consciousness: patient oriented x3 HEENT Head: Yes normocephalic and Yes atraumatic Neck Neck: Yes no JVD Resp Auscultation: clear to auscultation bilaterally Cardio Jugular venous distension: no JVD Rate: regular rate Rhythm: regular rhythm Heart sounds: S1 normal heart sound present and S2 normal heart sound present GI Auscultation: normal bowel sounds Neuro General: patient oriented x3 Extrem General: Yes no clubbing, cyanosis or edema Results Lab Results Result Diagrams: 10/26/21 08:23 10/26/21 09:04 Lab results: Chemistry 10/26/21 09:04 Sodium 140 Potassium 4.5 Carbon Dioxide 25 BUN 16 Creatinine 1.82 H Calcium 8.8 Hematology 10/26/21 08:23 WBC 9.4 Hgb 11.1 L Plt Count 299 Assessment and Plan (1) Kidney transplant recipient: Status: Chronic The patient is a 51 yo male with past medical history of ESRD d/t diabetic nephropathy s/p renal trasnplant via [facility] from his in 2017 maintained now on everolimus, history of hypertension, AF, primary testicular seminoma, c. diff, and type 1 diabetes who presented to [facility] on 10/26 for evaluation of left great toe infection. 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 Patient has been taking Keflex oral antibiotic course as an outpatient. Despite abx, he had increase swelling and redness over the great toe patient was advised to come to the hospital for further evaluation. Imaging performed was concerning for acute osteomyelitis. At time of presentation, his BUN/Cr noted to be 16/1.86 mg/dL. His BL S-Cr appears to be 1.6-1.8 mg/dL He denies hematuria/dysuria. No noted urinary retention. ROS otherwise negative. Assessment and Plan: The patient is a 51 yo male with past medical history of ESRD d/t diabetic nephropathy s/p renal trasnplant via [facility] from his in 2016 maintained now o n everolimus, history of hypertension, AF, primary testicular seminoma, c. diff, and type 1 diabetes who presented to [facility] on 10/26 for evaluation of left great toe infection. His renal function appears to be stable at this time. If further worsening of S-Cr, please performed renal US of tx kidney. He is currently on Everolimus, and MMF. Please verify everolimus dose/frequency with patient/pharmacy. Everolimus level in the morning. ok to continue acei. Hold if S-Cr increases further. He has noted anemia for which we can add iron panel however HOLLI is not necessary follow kidney function and electrolytes will arrange for follow up with transplant clinic (2) HTN (hypertension): Qualifiers: Hypertension type: renovascular hypertension Qualified Code(s): I15.0 - Renovascular hypertension Status: Acute (3) Secondary hyperparathyroidism of renal origin: Status: Acute Procedures Date of Service Date of Service: 10/27/21
--- NOTE | 2021-10-27 13:00 | MHC.CM.PN ---
met with pt who lives with his and children pt is independent and does not expect to need servceis when dcd he i vax x 2 and has own ride home
[2021-10-28] VITALS (7 sets, daily range): BP systolic 89–140; BP diastolic 50–72; PULSE 75–88; RESP 17–18; TEMP 35.8–37.2; O2SAT 97–99
[2021-10-28] MEDS: 0.9 % Sodium Chloride Flush 3 ML SYRINGE IVFLUSH ×4 (00:06→23:45)
[2021-10-28] MEDS: Piperacillin Sodium/Tazobactam 3.375 GM in 0.9 % Sodium Chloride 50 ML IV ×4 (04:25→21:39)
--- NOTE | 2021-10-28 05:10 | PC.NURSE ---
Patient resting - no distress - receiving antibiotics. Denies pain. Dr Marrero consult put in for morning per MD order from days.
[2021-10-28] MEDS: amLODIPine Besylate 5 MG TABLET PO (09:09)
[2021-10-28] MEDS: Metoprolol Succinate ER 25 MG TAB.ER.24H PO (09:10)
[2021-10-28] MEDS: Mycophenolate Sodium 180 MG TABLET.DR 540 MG PO ×2 (09:10→21:39)
[2021-10-28] MEDS: Apixaban 5 MG TABLET PO ×2 (09:10→21:38)
[2021-10-28] MEDS: Aspirin Enteric Coated 81 MG TABLET.DR PO (09:10)
[2021-10-28] MEDS: Atorvastatin Calcium 40 MG TABLET PO (09:10)
[2021-10-28] MEDS: lisinopriL 20 MG TABLET PO (09:10)
[2021-10-28] MEDS: Insulin Glargine,Hum.rec.anlog 100 UNIT/ML 10 ML VIAL 18 UNIT SUBCUT (09:29)
--- NOTE | 2021-10-28 10:19 | PM.CNGS ---
History of Present Illness Consult details Consult date: 10/28/21 Reason for consult: wound care Narrative: Complex 51-year-old gentleman presents for evaluation regarding nonhealing left great toe ulcer. He reports that [facility] with their care. He subsequently went to a lieutenant firefighter and was then referred to an outpatient vascular center. He reports he underwent endovascular intervention. He had a follow-up with his lieutenant firefighter and subsequently requested that he come to the hospital for further care as he was concerned about the depth of this nonhealing left great toe ulcer. He now presents to us for vascular evaluation. Review of Systems Review of Systems: Yes all other systems are reviewed and are negative Constitutional: Constitutional: Reports no additional constitutional complaints ENT: Reports Normal hearing present Cardiovascular: Cardiovascular: Denies chest pain, Denies chest pain at rest, Denies chest pain with activity and Denies pedal edema Respiratory: Respiratory: Denies cough Gastrointestinal: Gastrointestinal: Denies abdominal pain Musculoskeletal: Musculoskeletal: Denies abnormal gait, Denies muscle cramps and Denies radiating pain into limb Integumentary/Breasts: Skin/Breast: Denies skin ulcer and Denies wounds Neurologic: Reports Normal hearing present and Denies abnormal gait Psychiatric: Psychiatric: Reports no additional psychiatric complaints PMFSH Past Medical History Medical History 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 chronic kidney disease Bleeding internal hemorrhoids Carpal tunnel syndrome on left Chronic right shoulder pain Diabetes mellitus with diabetic nephropathy, with long-term current use of insulin Diabetes mellitus with foot ulcer End-stage renal disease on hemodialysis Hyperlipidemia Mixed dyslipidemia Multinodular goiter Osteomyelitis of left foot Paresthesia and pain of extremity Peripheral vascular disease Refused pneumococcal vaccination Secondary hyperparathyroidism of renal origin 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 Sister No problems noted. Sister No problems noted. Surgical History Surgical History History of kidney transplant Social History Social History Household Members: Spouse and Children Alcohol intake: never Patient Tobacco Use Status: Never used Tobacco Advance Directives: No service: No Current occupational status: unemployed Current occupation: disability - kidney transplant. Left side dominant Meds Allergies Allergy/AdvReac Type Severity Reaction Status Date / Time No Known Allergies Allergy Verified 07/17/21 09:44 Active Medications: Current Medications Acetaminophen (Acetaminophen 325 Mg Tablet) 650 mg PO Q6H PRN PRN Reason: Pain, Mild (Pain Scale 1-3) Amlodipine Besylate (Amlodipine Besylate 5 Mg Tablet) 5 mg PO DAILY [facility]; Protocol Last Admin: 10/28/21 09:09 Dose: 5 mg Documented by: Apixaban (Apixaban 5 Mg Tablet) 5 mg PO BID [facility] Last Admin: 10/28/21 09:10 Dose: 5 mg Documented by: Aspirin (Aspirin Enteric Coated 81 Mg Tablet.) 81 mg PO DAILY [facility] Last Admin: 10/28/21 09:10 Dose: 81 mg Documented by: Atorvastatin Calcium (Atorvastatin Calcium 40 Mg Tablet) 40 mg PO DAILY [facility] Last Admin: 10/28/21 09:10 Dose: 40 mg Documented by: Piperacillin Sod/Tazobactam (Sod 3.375 gm/ Sodium Chloride) 50 mls @ 100 mls/hr IV Q6H [facility] Last Admin: 10/28/21 09:09 Dose: 100 mls/hr Documented by: Insulin Glargine (Insulin Glargine,Hum.Rec.Anlog 100 Unit/Ml 10 Ml Vial) 18 unit SUBCUT DAILY [facility] Last Admin: 10/28/21 09:29 Dose: 18 unit Documented by: Lisinopril (Lisinopril 20 Mg Tablet) 20 mg PO DAILY [facility]; Protocol Last Admin: 10/28/21 09:10 Dose: 20 mg Documented by: Melatonin (Melatonin 3 Mg Tablet) 6 mg PO BEDTIME PRN PRN Reason: Insomnia Metoprolol Succinate (Metoprolol Succinate Er 25 Mg Tab.Er.24h) 25 mg PO DAILY [facility]; Protocol Last Admin: 10/28/21 09:10 Dose: 25 mg Documented by: Mycophenolate Sodium (Mycophenolate Sodium 180 Mg Tablet.) 540 mg PO BID [facility] Last Admin: 10/28/21 09:10 Dose: 540 mg Documented by: Non-Formulary Medication (Calcifediol [Rayaldee]) 30 mcg PO BEDTIME [facility] Non-Formulary Medication (Everolimus (Immunosuppressive)) 1.5 mg PO BEDTIME [facility] Oxycodone HCl (Oxycodone Hcl Immed Release 5 Mg Tablet) 5 mg PO Q6H PRN PRN Reason: Pain, Severe (Pain Scale 7-10) Pharmacy Consult (Consult Rx Vancomycin Dosing) 1 each MISCELLANE DAILY PRN PRN Reason: Consult order Pharmacy Consult (Consult Rx Perform Med Rec) 1 each MISCELLANE ONCE PRN PRN Reason: Consult order Sodium Chloride (0.9 % Sodium Chloride Flush 3 Ml Syringe) 3 ml IVFLUSH QSHIFT [facility] Last Admin: 10/28/21 09:08 Dose: 3 ml Documented by: Home Medications Medication Instructions Recorded Confirmed Last Taken Type amlodipine 5 mg tablet (Norvasc) 5 mg PO DAILY 03/14/20 10/26/21 10/26/21 History aspirin 81 mg tablet,delayed 81 mg PO DAILY 03/14/20 10/26/21 10/26/21 History release (Aspirin Low Dose) calcifediol 30 mcg capsule,24 30 mcg PO BEDTIME 03/14/20 10/26/21 10/26/21 History hr,extended release (Rayaldee) lisinopril 20 mg tablet 20 mg PO DAILY 03/14/20 10/26/21 10/26/21 History mycophenolate sodium 180 mg 540 mg PO BID 05/18/20 10/26/21 10/26/21 History tablet,delayed release pen needle, diabetic 31 gauge x #50 ea 06/05/20 12/13/20 Unknown History 08/28 apixaban 5 mg tablet 5 mg PO BID 10/12/20 10/26/21 10/26/21 History metoprolol succinate 25 mg 25 mg PO DAILY 01/22/21 10/26/21 10/26/21 History tablet,extended release 24 hr lancets 28 gauge (FreeStyle #100 ea 06/26/21 Unknown History Lancets) everolimus (immunosuppressive) 1.5 mg PO BEDTIME 10/26/21 10/26/21 10/26/21 History 0.75 mg tablet insulin aspart U-100 100 unit/mL See Rx Instructions .ROUTE .COMPLEX 10/26/21 10/26/21 10/26/21 History (3 mL) subcutaneous pen (Novolog Flexpen U-100 Insulin aspart) insulin glargine 100 unit/mL (3 18 unit SUBCUT DAILY 10/26/21 10/26/21 10/26/21 History mL) subcutaneous pen (Lantus Solostar U-100 Insulin) Physical Exam Vital Signs: Vital Signs: Last Vital Signs Temp 96.4 F L 10/28/21 08:45 Pulse 78 10/28/21 08:45 Resp 18 10/28/21 00:00 BP 121/61 10/28/21 08:45 Pulse Ox 98 10/28/21 08:45 BMI result Body Mass Index 29.5 Const: General: cooperative, healthy appearing and comfortable Orientation/consciousness: oriented to person, oriented to place and oriented to time HEENT: Head: Yes normal to inspection Neck: Neck: Yes normal visual inspection Carotids: no bruits Chest: Chest palpation & inspection: normal inspection of the chest Resp: Effort & Inspection: normal respiratory effort and able to speak in complete sentences Auscultation: clear to auscultation bilaterally, no crackles, no rales, no rhonchi and no wheezes Cardio: Rate: regular rate Rhythm: regular rhythm Heart sounds: S1 normal heart sound present and S2 normal heart sound present Bruits: no carotid bruits Peripheral pulses: dorsalis pedis present (Bilateral DP signals) GI: Inspection: Yes normal to inspection Skin: Other: Left great toe deformity with ulcer unclear depth Wounds: wounds noted Hair: normal Neuro: General: oriented to person, oriented to place and oriented to time Cranial nerves: Yes CN's II-XII intact bilaterally and Yes Normal hearing present Cognition (Neuro): normal cognition Motor exam (neuro): 5/5 motor strength present throughout Extrem: Other: venous exam: No significant superficial varicosities or spider telangiectasias, minimal edema General: No clubbing, No cyanosis and No edema Psych: Appearance: grossly normal Mental Status: mental status grossly normal Speech and movement: Normal speech and movement present Results Labs Result diagrams: 10/26/21 08:23 10/26/21 09:04 Labs: All other labs normal. Assessment and Plan (1) PAD (peripheral artery disease): Status: Acute Plan In short this is a very complex 51-year-old gentleman with a nonhealing left great toe ulcer. At the current time it seems fairly small. 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 Would attempt conservative measures including antibiotics. He has already been set up for outpatient vascular care with an interventional radiologist who performed an intervention around 08/26 of this year, of which we have no procedural notes. will follow up with us on an as-needed basis. Thank you for allowing us to assist in his care. If there are any questions or concerns please do not hesitate to contact us. Procedures Date of Service Date of Service: 10/28/21
--- NOTE | 2021-10-28 10:51 | HO.PM.IMPN ---
Subjective Subjective Date of Service: 10/28/21 Review of Systems Follow-up on osteomyelitis of the left big toe no fever or chills, no pain, Physical Exam Vital Signs: Vital Signs: Last Vital Signs Temp 96.4 F L 10/28/21 08:45 Pulse 78 10/28/21 08:45 Resp 18 10/28/21 00:00 BP 121/61 10/28/21 08:45 Pulse Ox 98 10/28/21 08:45 BMI result Body Mass Index 29.5 Const: Other: General: AO X 3, no acute distress Resp: CTA bilateral CVS: S1,S2,RRR GI: +BS, NT, no distention Skin: No rash, toe finding unchaged Neuro: motor grossly intact Psych: appropriate affect Objective Data Active Medications Acetaminophen (Acetaminophen 325 Mg Tablet) 650 mg PO Q6H PRN PRN Reason: Pain, Mild (Pain Scale 1-3) Amlodipine Besylate (Amlodipine Besylate 5 Mg Tablet) 5 mg PO DAILY [facility]; Protocol Last Admin: 10/28/21 09:09 Dose: 5 mg Documented by: ALEIDA Apixaban (Apixaban 5 Mg Tablet) 5 mg PO BID [facility] Last Admin: 10/28/21 09:10 Dose: 5 mg Documented by: ALEIDA Aspirin (Aspirin Enteric Coated 81 Mg Tablet.) 81 mg PO DAILY [facility] Last Admin: 10/28/21 09:10 Dose: 81 mg Documented by: ALEIDA Atorvastatin Calcium (Atorvastatin Calcium 40 Mg Tablet) 40 mg PO DAILY [facility] Last Admin: 10/28/21 09:10 Dose: 40 mg Documented by: ALEIDA Piperacillin Sod/Tazobactam (Sod 3.375 gm/ Sodium Chloride) 50 mls @ 100 mls/hr IV Q6H [facility] Last Admin: 10/28/21 09:09 Dose: 100 mls/hr Documented by: ALEIDA Insulin Glargine (Insulin Glargine,Hum.Rec.Anlog 100 Unit/Ml 10 Ml Vial) 18 unit SUBCUT DAILY [facility] Last Admin: 10/28/21 09:29 Dose: 18 unit Documented by: ALEIDA Lisinopril (Lisinopril 20 Mg Tablet) 20 mg PO DAILY [facility]; Protocol Last Admin: 10/28/21 09:10 Dose: 20 mg Documented by: ALEIDA Melatonin (Melatonin 3 Mg Tablet) 6 mg PO BEDTIME PRN PRN Reason: Insomnia Metoprolol Succinate (Metoprolol Succinate Er 25 Mg Tab.Er.24h) 25 mg PO DAILY [facility]; Protocol Last Admin: 10/28/21 09:10 Dose: 25 mg Documented by: ALEIDA Mycophenolate Sodium (Mycophenolate Sodium 180 Mg Tablet.) 540 mg PO BID [facility] Last Admin: 10/28/21 09:10 Dose: 540 mg Documented by: ALEIDA Non-Formulary Medication (Calcifediol [Rayaldee]) 30 mcg PO BEDTIME [facility] Non-Formulary Medication (Everolimus (Immunosuppressive)) 1.5 mg PO BEDTIME [facility] Oxycodone HCl (Oxycodone Hcl Immed Release 5 Mg Tablet) 5 mg PO Q6H PRN PRN Reason: Pain, Severe (Pain Scale 7-10) Pharmacy Consult (Consult Rx Vancomycin Dosing) 1 each MISCELLANE DAILY PRN PRN Reason: Consult order Pharmacy Consult (Consult Rx Perform Med Rec) 1 each MISCELLANE ONCE PRN PRN Reason: Consult order Sodium Chloride (0.9 % Sodium Chloride Flush 3 Ml Syringe) 3 ml IVFLUSH QSHIFT [facility] Last Admin: 10/28/21 09:08 Dose: 3 ml Documented by: ALEIDA Labs CBC & Chem 7: 10/26/21 08:23 10/26/21 09:04 Microbiology Microbiology Results: Microbiology 10/26/21 08:23 Blood Culture - Preliminary Blood - Venous No growth after 48 hours. 10/26/21 08:23 Blood Culture - Preliminary Blood - Venous No growth after 48 hours. Assessment and Plan (1) Osteomyelitis of great toe of left foot: Status: Acute Plan 51 years old male with PMH of diabetes, history of left big toe osteomylitis, HTN, kidney transplant among others who presented to the hospital complaining of left big toe pain, swelling and wound. Osteomyelitis of the left big toe, this recurrent. IV Zosyn, PO Doxy. ID consult pending for choice of Abx for discharge. Seen by Dr. Marrero, he does not want surgery at this time. CKD/renal transplant, Cr is slightly worse than past baseline Continue mycophenolate and tacrolimus Monitor BMP Avoid nephrotoxic medications renal consult Diabetes. Blood sugar? stable, continue insulin Sliding scale,ADA diet Continue long acting insulin. Hypertension BP stable, Continue home medications. DVT prophylaxis Heparin Need for inpatient: IV antibiotics for osteomyelitis, waiting for culture to determine outpatient antibiotics and evaluation by specialist for proper antibiotics...Probably need PICC line and DC with IV Abx Quality Stroke Does the patient have a stroke diagnosis?: No VTE Prior VTE?: No VTE Risk Level:: Medical - moderate - high VTE Device Contraindication: Treatment Not Tolerated VTE Drug Contraindication: N/A - Med Ordered
--- NOTE | 2021-10-28 11:34 | PM.PNNEP ---
Subjective Subjective Date of Service: 10/28/21 Interval history: Events noted. All recent data reviewed. D/W Medicine Attending Physical Exam Vital Signs: Vital Signs: Last Vital Signs Temp 96.4 F L 10/28/21 08:45 Pulse 78 10/28/21 08:45 Resp 18 10/28/21 00:00 BP 121/61 10/28/21 08:45 Pulse Ox 98 10/28/21 08:45 BMI result Body Mass Index 29.5 Const: General: comfortable Orientation/consciousness: patient oriented x3 Eyes: EOM: EOMs intact bilaterally Neck: Neck: Yes supple Resp: Auscultation: diminished lung sounds Cardio: Rate: regular rate GI: Other: No tenderness of his transplant Neuro: General: patient oriented x3 and moves all extremities Objective Data Labs CBC & Chem 7: 10/26/21 08:23 10/26/21 09:04 Microbiology Microbiology Results: Microbiology 10/26/21 08:23 Blood - Venous Blood Culture - Preliminary No growth after 48 hours. 10/26/21 08:23 Blood - Venous Blood Culture - Preliminary No growth after 48 hours. Procedures Date of Service Date of Service: 10/28/21 Assessment & Plan Assessment and plan (1) Renal transplant recipient: Status: Acute Assessment and Plan: Serum creatinine close to baseline C/W current immunosuppression ( No change in dosage) Needs Alston catheter for antibiotics( NO PICC) C/W rest of current management Time Spent With Patient Time: Total time spent is greater than 50% in coordination of care (as documented) at patient's floor/unit and/or counseling patient: Progress Note: Quality Stroke Does the patient have a stroke diagnosis?: No
--- NOTE | 2021-10-28 16:13 | W.PM.IDCN ---
History of Present Illness Data of Consult Service Date: 10/28/21 Requesting physician: Johnny Ferreira Primary Care Provider: MD TALI Kramer Reason for consult: left great toe osteomyelitis He presents with worsening open areas with drainage from left great toe,plantar aspect. He has had wound about three months and has visited Wound Care. He has been on Keflex with no improvement and Podiatry told him to come in. Review of Systems Review of Systems: Yes all other systems are reviewed and are negative [facility] Past Medical History Medical History 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 chronic kidney disease Bleeding internal hemorrhoids Carpal tunnel syndrome on left Chronic right shoulder pain Diabetes mellitus with diabetic nephropathy, with long-term current use of insulin Diabetes mellitus with foot ulcer End-stage renal disease on hemodialysis Hyperlipidemia Mixed dyslipidemia Multinodular goiter Osteomyelitis of left foot Paresthesia and pain of extremity Peripheral vascular disease Refused pneumococcal vaccination Secondary hyperparathyroidism of renal origin 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 Sister No problems noted. Sister No problems noted. Family history: reviewed and not pertinent Surgical History Surgical History History of kidney transplant Social History Social History Household Members: Spouse Housing: House Do you presently have visiting nurse or other home services: No Alcohol intake: never Patient Tobacco Use Status: Never used Tobacco service: No Current occupational status: unemployed Current occupation: disability - kidney transplant. Left side dominant Meds Allergies Allergy/AdvReac Type Severity Reaction Status Date / Time No Known Allergies Allergy Verified 07/17/21 09:44 Active Medications: Current Medications Acetaminophen (Acetaminophen 325 Mg Tablet) 650 mg PO Q6H PRN PRN Reason: Pain, Mild (Pain Scale 1-3) Amlodipine Besylate (Amlodipine Besylate 5 Mg Tablet) 5 mg PO BEDTIME [facility]; Protocol Apixaban (Apixaban 5 Mg Tablet) 5 mg PO BID [facility] Last Admin: 10/28/21 09:10 Dose: 5 mg Documented by: Aspirin (Aspirin Enteric Coated 81 Mg Tablet.) 81 mg PO DAILY [facility] Last Admin: 10/28/21 09:10 Dose: 81 mg Documented by: Atorvastatin Calcium (Atorvastatin Calcium 40 Mg Tablet) 40 mg PO BEDTIME [facility] Piperacillin Sod/Tazobactam (Sod 3.375 gm/ Sodium Chloride) 50 mls @ 100 mls/hr IV Q6H [facility] Last Admin: 10/28/21 15:51 Dose: 100 mls/hr Documented by: Insulin Glargine (Insulin Glargine,Hum.Rec.Anlog 100 Unit/Ml 10 Ml Vial) 18 unit SUBCUT DAILY [facility] Last Admin: 10/28/21 09:29 Dose: 18 unit Documented by: Lisinopril (Lisinopril 20 Mg Tablet) 20 mg PO DAILY [facility]; Protocol Last Admin: 10/28/21 09:10 Dose: 20 mg Documented by: Melatonin (Melatonin 3 Mg Tablet) 6 mg PO BEDTIME PRN PRN Reason: Insomnia Metoprolol Succinate (Metoprolol Succinate Er 25 Mg Tab.Er.24h) 25 mg PO DAILY [facility]; Protocol Last Admin: 10/28/21 09:10 Dose: 25 mg Documented by: Mycophenolate Sodium (Mycophenolate Sodium 180 Mg Tablet.) 540 mg PO BID [facility] Last Admin: 10/28/21 09:10 Dose: 540 mg Documented by: Non-Formulary Medication (Calcifediol [Rayaldee]) 30 mcg PO BEDTIME [facility] Non-Formulary Medication (Everolimus (Immunosuppressive)) 1.5 mg PO BEDTIME [facility] Oxycodone HCl (Oxycodone Hcl Immed Release 5 Mg Tablet) 5 mg PO Q6H PRN PRN Reason: Pain, Severe (Pain Scale 7-10) Pharmacy Consult (Consult Rx Vancomycin Dosing) 1 each MISCELLANE DAILY PRN PRN Reason: Consult order Pharmacy Consult (Consult Rx Perform Med Rec) 1 each MISCELLANE ONCE PRN PRN Reason: Consult order Sodium Chloride (0.9 % Sodium Chloride Flush 3 Ml Syringe) 3 ml IVFLUSH QSHIFT [facility] Last Admin: 10/28/21 15:52 Dose: 3 ml Documented by: Home Medications Medication Instructions Recorded Confirmed Last Taken Type amlodipine 5 mg tablet (Norvasc) 5 mg PO DAILY 03/14/20 10/26/21 10/26/21 History aspirin 81 mg tablet,delayed 81 mg PO DAILY 03/14/20 10/26/21 10/26/21 History release (Aspirin Low Dose) calcifediol 30 mcg capsule,24 30 mcg PO BEDTIME 03/14/20 10/26/21 10/26/21 History hr,extended release (Rayaldee) lisinopril 20 mg tablet 20 mg PO DAILY 03/14/20 10/26/21 10/26/21 History mycophenolate sodium 180 mg 540 mg PO BID 05/18/20 10/26/21 10/26/21 History tablet,delayed release pen needle, diabetic 31 gauge x #50 ea 06/05/20 12/13/20 Unknown History 3/16 apixaban 5 mg tablet 5 mg PO BID 10/12/20 10/26/21 10/26/21 History metoprolol succinate 25 mg 25 mg PO DAILY 01/22/21 10/26/21 10/26/21 History tablet,extended release 24 hr lancets 28 gauge (FreeStyle #100 ea 06/26/21 Unknown History Lancets) everolimus (immunosuppressive) 1.5 mg PO BEDTIME 10/26/21 10/26/21 10/26/21 History 0.75 mg tablet insulin aspart U-100 100 unit/mL See Rx Instructions .ROUTE .COMPLEX 10/26/21 10/26/21 10/26/21 History (3 mL) subcutaneous pen (Novolog Flexpen U-100 Insulin aspart) insulin glargine 100 unit/mL (3 18 unit SUBCUT DAILY 10/26/21 10/26/21 10/26/21 History mL) subcutaneous pen (Lantus Solostar U-100 Insulin) Physical Exam Vital Signs: Vital Signs: Last Vital Signs Temp 99.0 F 10/28/21 16:00 Pulse 87 10/28/21 16:00 Resp 18 10/28/21 16:00 BP 93/50 L 10/28/21 16:00 Pulse Ox 97 10/28/21 16:00 BMI result Body Mass Index 29.5 Const: General: cooperative HEENT: Head: Yes normal to inspection Mouth: Normal oral and palatal mucosa present Resp: Effort & Inspection: normal respiratory effort Cardio: Rate: regular rate Rhythm: regular rhythm GI: Palpation (GI): Soft to palpation and nontender Skin: General skin exam: no rashes or lesions noted Neuro: Other: feet neuropathy Extrem: Other: two pinpoint holes plantar surface of great toe,left Results Labs CBC & Chem 7: 10/26/21 08:23 10/26/21 09:04 Microbiology Microbiology Results: Microbiology 10/26/21 08:23 Blood - Venous Blood Culture - Preliminary No growth after 48 hours. 10/26/21 08:23 Blood - Venous Blood Culture - Preliminary No growth after 48 hours. Assessment and Plan (1) Osteomyelitis of great toe of left foot: Status: Acute He has unknown organism so far in foot Osteomyelitis left great toe. Possible staph or strep or unusual organisms in renal transplant. (2) Renal transplant recipient: Status: Acute Plan Would continue Zosyn and consider Ertapenem and Daptomycin for six week outpatient.
--- NOTE | 2021-10-28 16:33 | PC.NURSE ---
P patient states he does not take Lisinopril and Metroprolol,does not take Aspirin also,no sliding scale ordered for patient ,Lantus patient takes at hs,dose was given this am,patient uses his own glucometer to check his sugar ,will not permit staff to use hospital equipment I dr. He notified of the above E will monitor
[2021-10-28] MEDS: Insulin Lispro 100 UNIT/ML 3 ML VIAL SUBCUT (21:39)
[2021-10-29] MEDS: Piperacillin Sodium/Tazobactam 3.375 GM in 0.9 % Sodium Chloride 50 ML IV ×4 (03:25→22:25)
[2021-10-29 05:18] LABS: Anion Gap 12 (12-20); Blood Urea Nitrogen 16 mg/dL (9-16); Calcium 8.9 mg/dL (8.4-10.2); Carbon Dioxide 26 mmol/L (22-29); Chloride 106 mmol/L (96-108); Creatinine Clr Calc Pharmacy 50.1; Estimated Glomerular Filt Rate 36; Glucose Random 128 mg/dL (60-115); Potassium 4.1 mmol/L (3.3-5.1); Sodium 140 mmol/L (135-145)
[2021-10-29 07:11] VITALS: BP 135/86; PULSE 80; RESP 18; TEMP 36.6; O2SAT 100
[2021-10-29] MEDS: Apixaban 5 MG TABLET PO (09:05)
[2021-10-29] MEDS: Mycophenolate Sodium 180 MG TABLET.DR 540 MG PO ×2 (09:05→22:17)
[2021-10-29] MEDS: 0.9 % Sodium Chloride Flush 3 ML SYRINGE IVFLUSH ×3 (09:06→22:28)
[2021-10-29] MEDS: Insulin Lispro 100 UNIT/ML 3 ML VIAL SUBCUT ×2 (09:06→17:58)
--- NOTE | 2021-10-29 10:55 | PM.PNNEP ---
Subjective Subjective Date of Service: 10/29/21 Interval history: Events noted. All recent data reviewed. D/W Medicine Attending Physical Exam Vital Signs: Vital Signs: Last Vital Signs Temp 97.8 F 10/29/21 07:11 Pulse 80 10/29/21 07:11 Resp 18 10/29/21 07:11 BP 135/86 10/29/21 07:11 Pulse Ox 100 10/29/21 07:11 BMI result Body Mass Index 29.5 Const: General: comfortable Orientation/consciousness: patient oriented x3 Eyes: EOM: EOMs intact bilaterally Resp: Auscultation: diminished lung sounds Cardio: Rate: regular rate GI: Palpation (GI): Soft to palpation Neuro: General: patient oriented x3 and moves all extremities Objective Data Labs CBC & Chem 7: 10/26/21 08:23 10/29/21 04:30 Labs: Laboratory Results - last 24 hr 10/29/21 04:30 Sodium 140 Potassium 4.1 Chloride 106 Carbon Dioxide 26 Anion Gap 12 BUN 16 Creatinine 1.96 H Estim Creat Clear Calc 50.1 Estimated GFR 36 Random Glucose 128 H D Calcium 8.9 Microbiology Microbiology Results: Microbiology 10/26/21 08:23 Blood - Venous Blood Culture - Preliminary No growth after 48 hours. 10/26/21 08:23 Blood - Venous Blood Culture - Preliminary No growth after 48 hours. Procedures Date of Service Date of Service: 10/29/21 Assessment & Plan Assessment and plan (1) Renal transplant recipient: Status: Acute Assessment and Plan: Serum creatinine close to baseline C/W current immunosuppression ( No change in dosage) Needs Alston catheter for antibiotics( NO PICC) C/W rest of current management Time Spent With Patient Time: Total time spent is greater than 50% in coordination of care (as documented) at patient's floor/unit and/or counseling patient: Progress Note: Quality Stroke Does the patient have a stroke diagnosis?: No
--- NOTE | 2021-10-29 13:53 | MHC.CM.PN ---
[facility] IN HOUSE AND WILL DO REFRESHER TEACH W/PT FOR IV ABX.
--- NOTE | 2021-10-29 15:35 | P.PNIM_ITS ---
Subjective Subjective Date of Service: 10/29/21 Interval History: Follow-up on osteomyelitis of the left big toe Review of Systems Denies any chest pain or shortness of breath or abdominal pain or fever chills. Physical Exam Vital Signs: Vital Signs: Last Vital Signs Temp 97.8 F 10/29/21 07:11 Pulse 80 10/29/21 07:11 Resp 18 10/29/21 07:11 BP 135/86 10/29/21 07:11 Pulse Ox 100 10/29/21 07:11 BMI result Body Mass Index 29.5 General: AO X 3, no acute distress Resp:? CTA bilateral CVS: S1,S2,RRR GI: +BS, NT, no distention Skin: No rash, toe finding unchaged Neuro:? motor grossly intact Psych: appropriate affect Objective Data Active Medications Acetaminophen (Acetaminophen 325 Mg Tablet) 650 mg PO Q6H PRN PRN Reason: Pain, Mild (Pain Scale 1-3) Amlodipine Besylate (Amlodipine Besylate 5 Mg Tablet) 5 mg PO BEDTIME [facility]; Protocol Apixaban (Apixaban 5 Mg Tablet) 5 mg PO BID [facility] Last Admin: 10/29/21 09:05 Dose: 5 mg Documented by: ABRAHAM Atorvastatin Calcium (Atorvastatin Calcium 40 Mg Tablet) 40 mg PO BEDTIME [facility] Piperacillin Sod/Tazobactam (Sod 3.375 gm/ Sodium Chloride) 50 mls @ 100 mls/hr IV Q6H [facility] Last Infusion: 10/29/21 09:40 Dose: 0 mls/hr Documented by: ABRAHAM Insulin Glargine (Insulin Glargine,Hum.Rec.Anlog 100 Unit/Ml 10 Ml Vial) 18 unit SUBCUT BEDTIME [facility] Insulin Human Lispro (Insulin Lispro 100 Unit/Ml 3 Ml Vial) 0 unit SUBCUT QIDACHS [facility]; Protocol Last Admin: 10/29/21 12:22 Dose: Not Given Documented by: ABRAHAM Non-Admin Reason: POC 113 PER PT Melatonin (Melatonin 3 Mg Tablet) 6 mg PO BEDTIME PRN PRN Reason: Insomnia Mycophenolate Sodium (Mycophenolate Sodium 180 Mg Tablet.) 540 mg PO BID [facility] Last Admin: 10/29/21 09:05 Dose: 540 mg Documented by: ABRAHAM Patient Own Medication (Rayaldee 30 Mcg) 1 each PO BEDTIME [facility] Last Admin: 10/28/21 22:49 Dose: 1 each Documented by: MAGNO Patient Own Medication ( Everolimus 0.75 Mg) 2 each PO BID [facility] Last Admin: 10/29/21 09:04 Dose: 2 each Documented by: ABRAHAM Oxycodone HCl (Oxycodone Hcl Immed Release 5 Mg Tablet) 5 mg PO Q6H PRN PRN Reason: Pain, Severe (Pain Scale 7-10) Pharmacy Consult (Consult Rx Vancomycin Dosing) 1 each MISCELLANE DAILY PRN PRN Reason: Consult order Pharmacy Consult (Consult Rx Perform Med Rec) 1 each MISCELLANE ONCE PRN PRN Reason: Consult order Sodium Chloride (0.9 % Sodium Chloride Flush 3 Ml Syringe) 3 ml IVFLUSH QSHIFT [facility] Last Admin: 10/29/21 09:06 Dose: 3 ml Documented by: ABRAHAM Labs CBC & Chem 7: 10/26/21 08:23 10/29/21 04:30 Labs: Laboratory Results - last 24 hr 10/29/21 04:30 Anion Gap 12 Estim Creat Clear Calc 50.1 Estimated GFR 36 Random Glucose 128 H D Calcium 8.9 Assessment and Plan (1) Osteomyelitis of great toe of left foot: Status: Acute Plan 51 years old male with PMH of diabetes, history of left big toe osteomylitis,? HTN, kidney transplant among others who presented to the hospital complaining of left big toe pain, swelling and wound. Osteomyelitis of the left big toe, this recurrent. IV Zosyn, PO Doxy. ID consult -recomended 6 weeks iv antibiotics Seen by Dr. Marrero, he does not want surgery at this time. blood culture neg @48 hr npo past midnight gentle hydration when npo. possible CKD3/renal transplant, Cr is slightly worse than past baseline Continue mycophenolate and tacrolimus Monitor BMP: renal function near baseline. Avoid nephrotoxic medications renal consult Diabetes.fs 160-200 Blood sugar? stable, continue insulin Sliding scale,ADA diet Continue long acting insulin. Hypertension BP stable, Continue home medications. DVT prophylaxis hold eliquis until leach catheter placed. Need for inpatient:? IV antibiotics for osteomyelitis, waiting for culture to determine outpatient antibiotics and evaluation by specialist for proper antibiotics...Probably need leach line .Abx above is d/w with patient and his family. Quality Stroke Does the patient have a stroke diagnosis?: No VTE Prior VTE?: No VTE Risk Level:: Medical - moderate - high VTE Device Contraindication: Treatment Not Tolerated VTE Drug Contraindication: N/A - Med Ordered
[2021-10-29 15:45] VITALS: BP 125/69; PULSE 64; RESP 18; TEMP 36.4; O2SAT 99
[2021-10-29 16:00] VITALS: BP 125/69; PULSE 70; RESP 18; TEMP 36.6
[2021-10-29] MEDS: Insulin Glargine,Hum.rec.anlog 100 UNIT/ML 10 ML VIAL 18 UNIT SUBCUT (22:16)
[2021-10-29] MEDS: Atorvastatin Calcium 40 MG TABLET PO (22:16)
[2021-10-29 23:10] VITALS: BP 130/64; PULSE 71; RESP 16; TEMP 36.9; O2SAT 99
[2021-10-30] MEDS: Piperacillin Sodium/Tazobactam 3.375 GM in 0.9 % Sodium Chloride 50 ML IV ×4 (03:37→21:23)
[2021-10-30 08:00] VITALS: BP 137/75; PULSE 77; RESP 18; TEMP 36.8; O2SAT 100
[2021-10-30] MEDS: Mycophenolate Sodium 180 MG TABLET.DR 540 MG PO ×2 (08:09→21:00)
--- NOTE | 2021-10-30 08:33 | HO.PM.IMPN ---
Subjective Subjective Date of Service: 10/30/21 Interval History: Follow-up on osteomyelitis of the left big toe Review of Systems Denies any new complaint, Denies any fever or chills or cough or phlegm Physical Exam Vital Signs: Vital Signs: Last Vital Signs Temp 98.2 F 10/30/21 08:00 Pulse 77 10/30/21 08:00 Resp 18 10/30/21 08:00 BP 137/75 10/30/21 08:00 Pulse Ox 100 10/30/21 08:00 BMI result Body Mass Index 29.5 General: AO X 3, no acute distress Resp:? CTA bilateral CVS: S1,S2,RRR GI: +BS, NT, no distention Skin: No rash, toe finding unchaged Neuro:? motor grossly intact Psych: appropriate affect Objective Data Active Medications Acetaminophen (Acetaminophen 325 Mg Tablet) 650 mg PO Q6H PRN PRN Reason: Pain, Mild (Pain Scale 1-3) Amlodipine Besylate (Amlodipine Besylate 5 Mg Tablet) 5 mg PO BEDTIME [facility]; Protocol Last Admin: 10/29/21 22:36 Dose: Not Given Documented by: BIMAL Non-Admin Reason: Patient Refused Apixaban (Apixaban 5 Mg Tablet) 5 mg PO BID [facility] Last Admin: 10/29/21 09:05 Dose: 5 mg Documented by: ABRAHAM Atorvastatin Calcium (Atorvastatin Calcium 40 Mg Tablet) 40 mg PO BEDTIME [facility] Last Admin: 10/29/21 22:16 Dose: 40 mg Documented by: BIMAL Piperacillin Sod/Tazobactam (Sod 3.375 gm/ Sodium Chloride) 50 mls @ 100 mls/hr IV Q6H [facility] Last Admin: 10/30/21 08:16 Dose: 100 mls/hr Documented by: HALEY Lactated Ringer's (Lr) 1,000 mls @ 80 mls/hr IVCONT .[id number] [facility] Stop: 10/30/21 08:59 Insulin Glargine (Insulin Glargine,Hum.Rec.Anlog 100 Unit/Ml 10 Ml Vial) 18 unit SUBCUT BEDTIME [facility] Last Admin: 10/29/21 22:16 Dose: 18 unit Documented by: BIMAL Insulin Human Lispro (Insulin Lispro 100 Unit/Ml 3 Ml Vial) 0 unit SUBCUT QIDACHS [facility]; Protocol Last Admin: 10/29/21 22:30 Dose: Not Given Documented by: BIMAL Non-Admin Reason: Patient Refused Melatonin (Melatonin 3 Mg Tablet) 6 mg PO BEDTIME PRN PRN Reason: Insomnia Mycophenolate Sodium (Mycophenolate Sodium 180 Mg Tablet.) 540 mg PO BID [facility] Last Admin: 10/30/21 08:09 Dose: 540 mg Documented by: HALEY Patient Own Medication (Rayaldee 30 Mcg) 1 each PO BEDTIME [facility] Last Admin: 10/29/21 22:18 Dose: 1 each Documented by: BIMAL Patient Own Medication ( Everolimus 0.75 Mg) 2 each PO BID [facility] Last Admin: 10/30/21 08:11 Dose: 2 each Documented by: HALEY Oxycodone HCl (Oxycodone Hcl Immed Release 5 Mg Tablet) 5 mg PO Q6H PRN PRN Reason: Pain, Severe (Pain Scale 7-10) Pharmacy Consult (Consult Rx Vancomycin Dosing) 1 each MISCELLANE DAILY PRN PRN Reason: Consult order Pharmacy Consult (Consult Rx Perform Med Rec) 1 each MISCELLANE ONCE PRN PRN Reason: Consult order Sodium Chloride (0.9 % Sodium Chloride Flush 3 Ml Syringe) 3 ml IVFLUSH QSHIFT [facility] Last Admin: 10/29/21 22:28 Dose: 3 ml Documented by: BIMAL Labs CBC & Chem 7: 10/26/21 08:23 10/29/21 04:30 Assessment and Plan (1) Osteomyelitis of great toe of left foot: Status: Acute Plan 51 years old male with PMH of diabetes, history of left big toe osteomylitis,? HTN, kidney transplant among others who presented to the hospital complaining of left big toe pain, swelling and wound. Osteomyelitis of the left big toe, this recurrent. IV Zosyn, PO Doxy. ID consult -recomended 6 weeks iv antibiotics Seen by Dr. Marrero, he does not want surgery at this time. blood culture neg @48 hr npo past midnight gentle hydration when npo. possible CKD3/renal transplant, Cr is slightly worse than past baseline Continue mycophenolate and tacrolimus Monitor BMP: renal function near baseline. Avoid nephrotoxic medications renal consult Diabetes.fs 120-200 Blood sugar? stable, continue insulin Sliding scale,ADA diet Continue long acting insulin. Hypertension BP stable, Continue home medications. DVT prophylaxis hold eliquis until leach catheter placed. Need for inpatient:? IV antibiotics for osteomyelitis, waiting for culture to determine outpatient antibiotics and evaluation by specialist for proper antibiotics...Probably need leach? line .Abx above is d/w with patient and his family. Quality Stroke Does the patient have a stroke diagnosis?: No VTE Prior VTE?: No VTE Risk Level:: Medical - moderate - high VTE Device Contraindication: Treatment Not Tolerated VTE Drug Contraindication: N/A - Med Ordered
--- NOTE | 2021-10-30 11:47 | PM.PNNEP ---
Subjective Subjective Date of Service: 10/30/21 Interval history: Events noted. All recent data reviewed Physical Exam Vital Signs: Vital Signs: Last Vital Signs Temp 98.2 F 10/30/21 08:00 Pulse 77 10/30/21 08:00 Resp 18 10/30/21 08:00 BP 137/75 10/30/21 08:00 Pulse Ox 100 10/30/21 08:00 BMI result Body Mass Index 29.5 Const: General: comfortable Orientation/consciousness: patient oriented x3 Eyes: EOM: EOMs intact bilaterally Neck: Neck: Yes supple Resp: Auscultation: diminished lung sounds Cardio: Rate: regular rate GI: Palpation (GI): Soft to palpation Neuro: General: patient oriented x3 and moves all extremities Objective Data Labs CBC & Chem 7: 10/26/21 08:23 10/29/21 04:30 Microbiology Microbiology Results: Microbiology 10/26/21 08:23 Blood - Venous Blood Culture - Preliminary No growth after 48 hours. 10/26/21 08:23 Blood - Venous Blood Culture - Preliminary No growth after 48 hours. Procedures Date of Service Date of Service: 10/30/21 Assessment & Plan Assessment and plan (1) Renal transplant recipient: Status: Acute Assessment and Plan: Serum creatinine close to baseline C/W current immunosuppression ( No change in dosage) Needs Alston catheter for antibiotics( NO PICC) C/W rest of current management Time Spent With Patient Time: Total time spent is greater than 50% in coordination of care (as documented) at patient's floor/unit and/or counseling patient: Progress Note: Quality Stroke Does the patient have a stroke diagnosis?: No
[2021-10-30] MEDS: Insulin Lispro 100 UNIT/ML 3 ML VIAL SUBCUT ×2 (12:37→16:45)
--- NOTE | 2021-10-30 12:41 | MHC.CM.PN ---
HOME THURSDAY PATIENT IS AWARE OF PLAN
--- NOTE | 2021-10-30 15:00 | PC.NURSE ---
Attempted to restart iv 2x in left arm with no success. PIV in left wrist is leaking and patient shouting in pain when flushed.
[2021-10-30 15:03] VITALS: BP 152/86; PULSE 98; RESP 18; TEMP 37.1; O2SAT 100
[2021-10-30] MEDS: 0.9 % Sodium Chloride Flush 3 ML SYRINGE IVFLUSH (16:37)
[2021-10-30] MEDS: Insulin Glargine,Hum.rec.anlog 100 UNIT/ML 10 ML VIAL 18 UNIT SUBCUT (20:57)
[2021-10-30] MEDS: amLODIPine Besylate 5 MG TABLET PO (20:59)
[2021-10-30] MEDS: Atorvastatin Calcium 40 MG TABLET PO (20:59)
[2021-10-30 23:41] VITALS: BP 140/57; PULSE 80; RESP 16; TEMP 36.8; O2SAT 99
[2021-10-31] MEDS: Piperacillin Sodium/Tazobactam 3.375 GM in 0.9 % Sodium Chloride 50 ML IV ×2 (02:23→09:15)
[2021-10-31] MEDS: 0.9 % Sodium Chloride Flush 3 ML SYRINGE IVFLUSH ×2 (02:23→09:14)
[2021-10-31 07:00] LABS: INTERNATIONAL NORM RATIO 1.3 (0.9-1.1); Prothrombin Time 14.5 SEC (9.9-13.0)
[2021-10-31 07:16] VITALS: BP 160/78; PULSE 75; RESP 18; TEMP 36.5; O2SAT 98
[2021-10-31 07:22] LABS: Anion Gap 9 (12-20); Blood Urea Nitrogen 13 mg/dL (9-16); Calcium 9.1 mg/dL (8.4-10.2); Carbon Dioxide 31 mmol/L (22-29); Chloride 106 mmol/L (96-108); Creatinine Clr Calc Pharmacy 56.2; Estimated Glomerular Filt Rate 41; Glucose Random 162 mg/dL (60-115); Potassium 4.3 mmol/L (3.3-5.1); Sodium 142 mmol/L (135-145)
[2021-10-31 08:44] LABS: Alanine Aminotransferase 28 U/L (0-40); Albumin Level 3.5 g/dL (3.5-5.0); Alkaline Phosphatase 65 U/L (39-117); Aspartate Amino Transferase 20 U/L (5-37); Bilirubin Direct 0.2 mg/dL (0.0-0.5); Bilirubin Total 0.3 mg/dL (0.0-1.0); Total Protein 6.5 g/dL (6.5-8.0)
[2021-10-31] MEDS: Mycophenolate Sodium 180 MG TABLET.DR 540 MG PO (09:14)
[2021-10-31] MEDS: Metoprolol Succinate ER 25 MG TAB.ER.24H PO (09:30)
--- NOTE | 2021-10-31 10:32 | PM.PNNEP ---
Subjective Subjective Date of Service: 10/31/21 Interval history: Events noted. All recent data reviewed Physical Exam Vital Signs: Vital Signs: Last Vital Signs Temp 97.7 F 10/31/21 07:16 Pulse 75 10/31/21 07:16 Resp 18 10/31/21 07:16 BP 160/78 H 10/31/21 07:16 Pulse Ox 98 10/31/21 07:16 BMI result Body Mass Index 29.5 Const: General: comfortable Orientation/consciousness: patient oriented x3 Eyes: EOM: EOMs intact bilaterally Neck: Neck: Yes supple Resp: Auscultation: diminished lung sounds Cardio: Rate: regular rate GI: Palpation (GI): Soft to palpation Neuro: General: patient oriented x3 and moves all extremities Objective Data Labs CBC & Chem 7: 10/26/21 08:23 10/31/21 06:03 Labs: Laboratory Results - last 24 hr 10/31/21 10/31/21 06:03 06:03 PT 14.5 H INR 1.3 H Sodium 142 Potassium 4.3 Chloride 106 Carbon Dioxide 31 H Anion Gap 9 L BUN 13 Creatinine 1.75 H Estim Creat Clear Calc 56.2 Estimated GFR 41 Random Glucose 162 H Calcium 9.1 Total Bilirubin 0.3 Direct Bilirubin 0.2 AST 20 ALT 28 Alkaline Phosphatase 65 Total Creatine Kinase 28 L Total Protein 6.5 Albumin 3.5 Microbiology Microbiology Results: Microbiology 10/26/21 08:23 Blood - Venous Blood Culture - Final No growth after 5 days. 10/26/21 08:23 Blood - Venous Blood Culture - Preliminary No growth after 48 hours. Procedures Date of Service Date of Service: 10/31/21 Assessment & Plan Assessment and plan (1) Renal transplant recipient: Status: Acute Assessment and Plan: Serum creatinine close to baseline C/W current immunosuppression ( No change in dosage) Needs Alston catheter for antibiotics( NO PICC) C/W rest of current management Time Spent With Patient Time: Total time spent is greater than 50% in coordination of care (as documented) at patient's floor/unit and/or counseling patient: Progress Note: Quality Stroke Does the patient have a stroke diagnosis?: No
--- NOTE | 2021-10-31 11:45 | W.MHC.F2F ---
Service Date Service Date: 10/31/21 Encounter Date of encounter: 10/31/21 Reasons for Services Signs and symptoms assessed: CKD, diabetes, osteomyelitis Reason for intermediate: diabetic teaching, medication management, medication treatment and teach disease management MD Overseeing Care: Lianne Manuel Homebound: Leaving the home is medically contraindicated at this time without the asist of a device and/or another person due th the listed conditions above and below. Reason homebound: weakness related to hospital stay Homebound supporting statement: Patient is generalized weak post hospitalization stay, also has multiple comorbidities including diabetes, CKD, osteomyelitis, needs help with lab draws as well as with appointments. Certification: Based on the above findings, I certify that this patient is confined to the home and needs intermittent intermediate care, physical therapy and/or speech therapy, or continues to need occupational therapy. The patient is under my care, and I have initiated the establishment of the plan of care. The patient will be followed by a physician who will periodically review the plan of care.
--- NOTE | 2021-10-31 11:47 | PM.DS ---
DS: Providers Provider Date of Service: 10/31/21 Date of admission: 10/26/21 13:29 Primary care physician: Lianne Manuel MD Consults: 10/26/21 14:02 Consult to Nephrology Routine Consulting Provider: Daryl Benavides Reason for consultation: anshu, ckd 10/26/21 22:39 Consult to Infectious Diseases Routine Consulting Provider: Rhiannon Soto Reason for consultation: osteo Has provider been notified: No 10/27/21 11:10 Consult to Vascular Surgery Routine Consulting Provider: Bart Marrero Reason for consultation: Recurrent osteomyelitis of the toe assess for amputation Has provider been notified: No DS: Diagnosis Discharge Diagnosis (1) Renal transplant recipient: Status: Acute DS: Summary Hospital Course Hospital Course: 51 year old male with multiple medica issues as listed belowincluding history of left big toe osteomyltis that has been treated IV antibitocs in the past? and most recently has been on PO? by a superintendent transportation but doesn't think it is getting better. Left AMA yesterday from ED after xray of the foot was done. Xray show bony destruction and c/w ostomyltis and is therefore been admitted for IV Abx, no fever, WBC normal Xray reportt from 10/25 Significant erosive changes in the distal phalanx of the first digit as well as minimal erosive changes in the distal/lateral aspect of the adjacent proximal phalanx concerning for osteomyelitis. Hospital course: Patient was admitted with osteomyelitis of left big toe-started on IV antibiotics, blood cultures negative. Seen by infectious disease and vascular Dr. Marrero: No surgical intervention at present, subsequently seen by infectious disease and recommended 6 week of IV daptomycin. Patient is to follow-up weekly CBC, BMP, LFT, ESR, CRP, CPK. hold statin until on iv antibiotics. Patient has chronic kidney disease : Follow-up BMP and nephrology recommended to hold off lisinopril due to fluctuating creatinine levels. Further use of lisinopril as per Nephro out patiently after repeating BMP. Nephro recommended Alston catheter for long-term antibiotics. Above management discussed with the patient in detail length-he understand in agreement with the plan. Further management outpatient as per PCP and Nephrology. Time Spent with Patient Time attestation: Total time spent providing and/or coordinating discharge services: Discharge coordination time: Greater than 30 minutes Quality: Safe Use of Opioids Does Pt have an Active Cancer Diagnosis on the Problem List?: No Quality: Stroke Does the patient have a stroke diagnosis?: No Physical Exam Vital Signs: Vital Signs: Last Vital Signs Temp 97.7 F 10/31/21 07:16 Pulse 75 10/31/21 07:16 Resp 18 10/31/21 07:16 BP 160/78 H 10/31/21 07:16 Pulse Ox 98 10/31/21 07:16 BMI result Body Mass Index 29.5 General: AO X 3, no acute distress Resp: fair air enetry, no rales or wheezing CVS: S1,S2,RRR GI: +BS, NT, no distention Skin: No rash, toe finding unchaged-no discharge or flacutation. Neuro:? motor grossly intact Psych: appropriate affect DS: Data Data Completed and Pending Completed studies during hospitalization [Text1]: Procedures Insertion of Infusion Device into Superior Vena Cava, Percutaneous Approach (03/12/20) Insertion of Tunneled Vascular Access Device into Chest Subcutaneous Tissue and Fascia, Percutaneous Approach (03/12/20) Ultrasonography of Superior Vena Cava, Guidance (03/12/20) Labs on day of discharge: Laboratory Results - last 24 hr 10/31/21 10/31/21 06:03 06:03 PT 14.5 H INR 1.3 H Sodium 142 Potassium 4.3 Chloride 106 Carbon Dioxide 31 H Anion Gap 9 L BUN 13 Creatinine 1.75 H Estim Creat Clear Calc 56.2 Estimated GFR 41 Random Glucose 162 H Calcium 9.1 Total Bilirubin 0.3 Direct Bilirubin 0.2 AST 20 ALT 28 Alkaline Phosphatase 65 Total Creatine Kinase 28 L Total Protein 6.5 Albumin 3.5 Additional Comments Additional comments: XR/XR toe LT min 2V IMPRESSION: Significant erosive changes in the distal phalanx of the first digit as well as minimal erosive changes in the distal/lateral aspect of the adjacent proximal phalanx concerning for osteomyelitis Discharge Plan Discharge Patient Disposition: Home Health Service Discharge Diagnosis: osteomylitis Referrals: Lianne Manuel MD [Primary Care Provider] - 1 Week Discharge Medications: New daptomycin 500 mg recon soln 544 mg IV Q24H Qty: 40 0RF Rx Instructions: administer over 30 mins Continued (DME) Ultra-Light Rollator Misc See Rx Instructions .ROUTE .MEDSUPPLY Qty: 1 0RF Rx Instructions: As directed (DME) 16 inch grab bar See Rx Instructions .Route .MEDSUPPLY Qty: 1 0RF Rx Instructions: As directed (DME) transport wheelchair See Rx Instructions .Route .MEDSUPPLY Qty: 1 0RF Rx Instructions: As directed (DME) bed assist handle See Rx Instructions .Route .MEDSUPPLY Qty: 1 0RF Rx Instructions: As directed amlodipine [Norvasc] 5 mg Tablet 5 mg PO DAILY 0RF aspirin [Aspirin Low Dose] 81 mg Tablet,Delayed Release (Dr/Ec) 81 mg PO DAILY 0RF Rayaldee 30 mcg Capsule,Extended Release 24 Hr 30 mcg PO BEDTIME 0RF mycophenolate sodium 180 mg tablet,delayed release (DR/EC) 540 mg PO BID 0RF everolimus (immunosuppressive) 0.75 mg tablet 1.5 mg PO BID 0RF insulin aspart U-100 [Novolog Flexpen U-100 Insulin] 100 unit/mL (3 mL) insulin pen See Rx Instructions .ROUTE .COMPLEX 0RF Rx Instructions: SLIDING SCLAE Lantus Solostar U-100 Insulin 100 unit/mL (3 mL) insulin pen 18 unit SUBCUT DAILY 0RF (DME) pen needle, diabetic 31 gauge x 3/16 needle See Rx Instructions ea subcut .MEDSUPPLY Qty: 50 0RF Rx Instructions: As directed metoprolol succinate 25 mg tablet extended release 24 hr 25 mg PO DAILY 0RF Eliquis 5 mg tablet 5 mg PO BID 0RF (DME) lancets [FreeStyle Lancets] 28 gauge misc See Rx Instructions ea topical TID Qty: 100 0RF Rx Instructions: As directed Held lisinopril 20 mg Tablet 20 mg PO DAILY 0RF Hold Instructions: Resume on 11/12/21. hold until seen by nephrology and repeat bmp. rosuvastatin 10 mg tablet 10 mg PO DAILY Qty: 30 6RF Hold Instructions: Resume on 12/10/21. Discharge Orders: Discharge Order (Routine); Ordered 10/31/21 Ordered By: Saud Del Cid Diet: advance to usual diet Activity on Discharge: As tolerated Stand Alone Forms: Patient Portal Discharge page Care Plan Goals: Patient was admitted with osteomyelitis of left big toe-started on IV antibiotics, blood cultures negative. Seen by infectious disease and vascular Dr. Marrero: No surgical intervention at present, subsequently seen by infectious disease and recommended 6 week of IV daptomycin( end date 12/10/21). Patient is to follow-up weekly CBC, BMP, LFT, ESR, CRP, CPK. Hold statin until patient is on daptomycin, follow lipid profile out patiently with PCP. Patient has chronic kidney disease : Follow-up BMP and nephrology recommended to hold off lisinopril due to fluctuating creatinine levels. Further use of lisinopril as per Nephro out patiently after repeating BMP. Nephro recommended Alston catheter for long-term antibiotics. Health Concerns: As above. Plan of Treatment: As above. Assessment: As above.
--- NOTE | 2021-10-31 12:00 | MHC.CM.PN ---
Addendum entered by Tete Hardwick RN 10/31/21 14:47: PER [facility] DELIVERY WILL BE BETWEEN 2-3PM AND THEY WILL COORDINATE W/[facility] FOR SOC TO BE AFTER MED IS DELIVERED, [facility] AND [facility] UPDATED ON NEW DAPTO DOSE OF 700MG Q24HRS W/END DATE OF 12/10/21. Original Note: PT TO BE MEDICALLY CLEARED FOR D/C ONE [facility] CATH PLACED AND FIRST DOSE OF DAPTO GIVEN, ABX ORDERS FAXED TO [facility] FAMILY FOR TRANSPORT. PT OFF UNIT FOR [facility] PLACEMENT AT THIS TIME.
[2021-10-31] MEDS: Lidocaine HCl 1 % MPF 5 ML VIAL SUBCUT (12:25)
[2021-10-31 12:45] VITALS: BP 144/82; PULSE 75; RESP 16; TEMP 36.9; O2SAT 99
[2021-10-31 12:59] VITALS: BP 138/73; PULSE 72; RESP 16; O2SAT 99
[2021-10-31] MEDS: DAPTOmycin 700 MG in 0.9 % Sodium Chloride 50 ML 105.11 MG IV (14:57)
== END 2021-10-31 15:53 | disposition home health service (06) | DRG 638 ==
LOC: HO.ED 08:51 → HO.EDOVER 13:52 → HO.S3 10-28 13:30
PROVIDERS: Radiology Diagnostic Radiology; Admitting Provider Internal Medicine; Emergency Provider Emergency Medicine; PCP Internal Medicine; Visit Provider Internal Medicine
PROC: 02HV33Z Insertion of Infusion Device into Superior Vena Cava, Percutaneous Approach (ICD-10-PCS; principal; 2021-10-31 10:30)
DX: E11.69 Type 2 diabetes mellitus with other specified complication (principal); M86.172 Other acute osteomyelitis, left ankle and foot; Z94.0 Kidney transplant status; D84.821 Immunodeficiency due to drugs; I12.9 Hypertensive chronic kidney disease with stage 1 through stage 4 chronic kidney disease, or unspecified chronic kidney disease; E11.51 Type 2 diabetes mellitus with diabetic peripheral angiopathy without gangrene; N18.4 Chronic kidney disease, stage 4 (severe); E11.40 Type 2 diabetes mellitus with diabetic neuropathy, unspecified; E11.22 Type 2 diabetes mellitus with diabetic chronic kidney disease; Z20.822 Contact with and (suspected) exposure to COVID-19; Z79.4 Long term (current) use of insulin; Z79.01 Long term (current) use of anticoagulants; Z79.82 Long term (current) use of aspirin; Z79.899 Other long term (current) drug therapy
CPT/HCPCS: 36415; 36558; 80048; 80053; 80076; 82550; 83605; 85025; 85610; 87040; 87635; 96365; 96375; 99152; 99153; 99285; C1751; C1769; J0878; J1642; J2543; J3370

== ENCOUNTER 2021-11-12 11:57 | Emergency (ER) | payer OTHER, SELFPAY ==
[2021-11-12 12:51] VITALS: BP 132/71; PULSE 80; RESP 18; TEMP 37; O2SAT 99; BMI 27.8
--- NOTE | 2021-11-12 16:23 | ED.GENADULT ---
HPI - General Adult General Chief complaint: General Medical <Courtney Linda NP - Last Filed: 11/12/21 18:19> Stated complaint: clogged pump chest <Courtney Linda NP - Last Filed: 11/12/21 18:19> Time Seen by Provider: 11/12/21 12:07 <Courtney Linda NP - Last Filed: 11/12/21 18:19> Source: patient <Courtney Linda NP - Last Filed: 11/12/21 18:19> Mode of arrival: ambulatory <Courtney Linda NP - Last Filed: 11/12/21 18:19> Limitations: no limitations <Courtney Linda NP - Last Filed: 11/12/21 18:19> History of Present Illness HPI narrative: 51yo male with history of left great toe osteomyelitis on IV antibiotics (daptomycin-last dose yesterday 10AM) here with clogged leach catheter. Of note, patient has extensive medical history including but not limited to renal transplant, DM, HLD, testicular cancer s/p chemotherapy. Patient gives himself antibiotics. Called [facility] today and they were unable to flush it so they sent him here. <Courtney Linda NP - Last Filed: 11/12/21 18:19> Related Data Home medications: Home Medications Medication Instructions Recorded Confirmed amlodipine 5 mg tablet (Norvasc) 5 mg PO DAILY 03/14/20 10/26/21 aspirin 81 mg tablet,delayed 81 mg PO DAILY 03/14/20 10/26/21 release (Aspirin Low Dose) calcifediol 30 mcg capsule,24 30 mcg PO BEDTIME 03/14/20 10/26/21 hr,extended release (Rayaldee) lisinopril 20 mg tablet 20 mg PO DAILY 03/14/20 10/26/21 mycophenolate sodium 180 mg 540 mg PO BID 05/18/20 10/26/21 tablet,delayed release pen needle, diabetic 31 gauge x #50 ea 06/05/20 12/13/20/ apixaban 5 mg tablet 5 mg PO BID 10/12/20 10/26/21 metoprolol succinate 25 mg 25 mg PO DAILY 01/22/21 10/26/21 tablet,extended release 24 hr lancets 28 gauge (FreeStyle #100 ea 06/26/21 Lancets) everolimus (immunosuppressive) 1.5 mg PO BID 10/26/21 10/28/21 0.75 mg tablet insulin aspart U-100 100 unit/mL See Rx Instructions .ROUTE .COMPLEX 10/26/21 10/26/21 (3 mL) subcutaneous pen (Novolog Flexpen U-100 Insulin aspart) insulin glargine 100 unit/mL (3 18 unit SUBCUT DAILY 10/26/21 10/26/21 mL) subcutaneous pen (Lantus Solostar U-100 Insulin) Previous Rx's Medication Instructions Recorded 16 inch grab bar #1 ea 10/15/20 bed assist handle #1 ea 10/15/20 transport wheelchair #1 ea 10/15/20 walker (Ultra-Light Rollator) #1 ea 10/15/20 rosuvastatin 10 mg tablet 10 mg PO DAILY #30 tab 12/13/20 daptomycin 500 mg intravenous 700 mg IV Q24H #40 ea 10/31/21 solution (Cubicin) <Courtney Linda NP - Last Filed: 11/12/21 18:19> Allergies/adverse reactions: Allergies Allergy/AdvReac Type Severity Reaction Status Date / Time No Known Allergies Allergy Verified 11/12/21 12:51 <Courtney Linda NP - Last Filed: 11/12/21 18:19> Review of Systems Constitutional: Constitutional: Denies fever(s) <Courtney Linda NP - Last Filed: 11/12/21 18:19> Eyes: Eyes: Denies eye discharge <Courtney Linda NP - Last Filed: 11/12/21 18:19> ENT: Denies nasal discharge and Denies sore throat <Courtney Linda NP - Last Filed: 11/12/21 18:19> Cardiovascular: Cardiovascular: Denies chest pain, Denies leg edema and Denies dyspnea <Courtney Linda NP - Last Filed: 11/12/21 18:19> Respiratory: Respiratory: Denies cough and Denies dyspnea <Courtney Linda NP - Last Filed: 11/12/21 18:19> Gastrointestinal: Gastrointestinal: Denies abdominal pain, Denies diarrhea and Denies vomiting <Courtney Linda NP - Last Filed: 11/12/21 18:19> Genitourinary: Genitourinary: Denies flank pain <Courtney Linda NP - Last Filed: 11/12/21 18:19> Musculoskeletal: Musculoskeletal: Denies arthralgias <Courtney Linda NP - Last Filed: 11/12/21 18:19> Integumentary/Breasts: Skin/Breast: Denies rash <Courtney Linda NP - Last Filed: 11/12/21 18:19> Neurologic: Denies behavioral changes <Courtney Linda NP - Last Filed: 11/12/21 18:19> Psychiatric: Psychiatric: Denies behavioral changes <Courtney Linda NP - Last Filed: 11/12/21 18:19> PMFSH Past Medical History Attestation statement: The following information was validated with the patient. <Courtney Linda NP - Last Filed: 11/12/21 18:19> Source: old records reviewed and nursing notes reviewed <Courtney Linda NP - Last Filed: 11/12/21 18:19> Medical History: Medical History 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 chronic kidney disease Bleeding internal hemorrhoids Carpal tunnel syndrome on left Chronic right shoulder pain Diabetes mellitus with diabetic nephropathy, with long-term current use of insulin Diabetes mellitus with foot ulcer End-stage renal disease on hemodialysis Hyperlipidemia Mixed dyslipidemia Multinodular goiter Osteomyelitis of left foot Paresthesia and pain of extremity Peripheral vascular disease Refused pneumococcal vaccination Secondary hyperparathyroidism of renal origin Seminoma Testicular cancer Type 2 diabetes mellitus with chronic kidney disease Type 2 diabetes mellitus with hyperglycemia, with long-term current use of insulin Vaccination refused by patient <Courtney Linda NP - Last Filed: 11/12/21 18:19> Surgical History: Surgical History History of kidney transplant <Courtney Linda NP - Last Filed: 11/12/21 18:19> Family History Family History: Family History Father Unknown family medical history Mother Diabetes mellitus HTN (hypertension) CVD (cardiovascular disease) History of CVA (cerebrovascular accident) Stroke Sister Diabetes mellitus Daughter No problems noted. Sister No problems noted. Sister No problems noted. <Courtney Linda NP - Last Filed: 11/12/21 18:19> Social History Social History: Social History Household Members: Spouse Housing: House Do you presently have visiting nurse or other home services: No Alcohol intake: never Patient Tobacco Use Status: Never used Tobacco Advance Directives: Yes Advance Directives Information Provided: No Advance Directives on File: No service: No Current occupational status: unemployed Current occupation: disability - kidney transplant. Left side dominant <Courtney Linda NP - Last Filed: 11/12/21 18:19> Physical Exam ED Vital Signs: Vital Signs - 24 hr 11/12/21 12:51 Temperature 98.6 F Pulse Rate 80 Respiratory Rate 18 Blood Pressure 132/71 Pulse Oximetry 99 BMI result Body Mass Index 27.8 <Courtney Linda NP - Last Filed: 11/12/21 18:19> Vital Signs - 24 hr 11/12/21 12:51 Temperature 98.6 F Pulse Rate 80 Respiratory Rate 18 Blood Pressure 132/71 Pulse Oximetry 99 BMI result Body Mass Index 27.8 <JAYLEN Johnson - Last Filed: 11/12/21 19:03> Const General: cooperative, healthy appearing, comfortable and no acute distress <Courtney Linda NP - Last Filed: 11/12/21 18:19> Orientation/consciousness: patient oriented x3 <Courtney Linda NP - Last Filed: 11/12/21 18:19> Limitations: no limitations <Courtney Linda NP - Last Filed: 11/12/21 18:19> HENMT Head: Yes normal to inspection <Courtney Linda NP - Last Filed: 11/12/21 18:19> Ears: hearing grossly normal bilaterally <Courtney Linda NP - Last Filed: 11/12/21 18:19> Eyes General: appearance normal, both eyes and all related structures <Courtney Linda NP - Last Filed: 11/12/21 18:19> Pupils: Equal, round and reactive pupils present <Courtney Linda NP - Last Filed: 11/12/21 18:19> Neck Neck: Yes normal visual inspection <Courtney Linda NP - Last Filed: 11/12/21 18:19> Chest Other: Leach left chest wall <Courtney Linda NP - Last Filed: 11/12/21 18:19> Resp Effort & Inspection: normal respiratory effort <Courtney Linda NP - Last Filed: 11/12/21 18:19> Skin General skin exam: no rashes or lesions noted <Courtney Linda NP - Last Filed: 11/12/21 18:19> Neuro General: patient oriented x3 and moves all extremities <Courtney Linda NP - Last Filed: 11/12/21 18:19> Cranial nerves: Yes Equal, round and reactive pupils present <Courtney Linda NP - Last Filed: 11/12/21 18:19> Cognition (Neuro): normal cognition <Courtney Linda NP - Last Filed: 11/12/21 18:19> Gait exam (Neuro): Normal gait present <Courtney Linda NP - Last Filed: 11/12/21 18:19> Course Course Course Narrative: 51yo male here with clogged leach catheter. Nursing to instill cath flow. <Courtney Linda NP - Last Filed: 11/12/21 18:19> Reevaluation(s) Reevaluation #1: Patient cath mildred instilled by nursing at 1800. Plan to attempt blood return in 30 minutes. In no success continue to instill for 90 min then re-assess. Sign out to [facility] pending disposition. Offered dose of daptomycin through peripheral IV while in ER as patient last dose was yesterday at 10am. Patient and family declined at this time. <Courtney Linda NP - Last Filed: 11/12/21 18:19> Time: 18:15 <Courtney Linda NP - Last Filed: 11/12/21 18:19> Reevaluation #2: 7 mL of blood successfully drawn back from line. Patient is still refusing dose of antibiotics in the emergency department, reports will give himself at home. Worrisome signs and symptoms and strict return precautions discussed <JAYLEN Johnson - Last Filed: 11/12/21 19:03> Time: 19:02 <JAYLEN Johnson - Last Filed: 11/12/21 19:03> Medical Decision Making Medical Records Medical records reviewed: Yes I reviewed the patient's medical records. <Courtney Linda NP - Last Filed: 11/12/21 18:19> Lab Data Lab results reviewed: Yes I reviewed the patient's lab results. <Courtney Linda NP - Last Filed: 11/12/21 18:19> Discharge Plan Discharge Clinical Impression: Complication, blocked central line <Courtney Linda NP - Last Filed: 11/12/21 18:19> Patient Disposition: Home, Self-Care <Courtney Linda NP - Last Filed: 11/12/21 18:19> Instructions: Implanted Venous Access Port (DC) <Courtney Linda NP - Last Filed: 11/12/21 18:19> Additional Instructions: Continue your antibiotics If line gets clogged again return to the emergency department <Courtney Linda NP - Last Filed: 11/12/21 18:19> Prescriptions: No Action (DME) Ultra-Light Rollator Misc See Rx Instructions .ROUTE .MEDSUPPLY Qty: 1 0RF Rx Instructions: As directed (DME) 16 inch grab bar See Rx Instructions .Route .MEDSUPPLY Qty: 1 0RF Rx Instructions: As directed (DME) transport wheelchair See Rx Instructions .Route .MEDSUPPLY Qty: 1 0RF Rx Instructions: As directed (DME) bed assist handle See Rx Instructions .Route .MEDSUPPLY Qty: 1 0RF Rx Instructions: As directed lisinopril 20 mg Tablet 20 mg PO DAILY 0RF Hold Instructions: Resume on 11/12/21. hold until seen by nephrology and repeat bmp. amlodipine [Norvasc] 5 mg Tablet 5 mg PO DAILY 0RF aspirin [Aspirin Low Dose] 81 mg Tablet,Delayed Release (Dr/Ec) 81 mg PO DAILY 0RF Rayaldee 30 mcg Capsule,Extended Release 24 Hr 30 mcg PO BEDTIME 0RF mycophenolate sodium 180 mg tablet,delayed release (DR/EC) 540 mg PO BID 0RF everolimus (immunosuppressive) 0.75 mg tablet 1.5 mg PO BID 0RF insulin aspart U-100 [Novolog Flexpen U-100 Insulin] 100 unit/mL (3 mL) insulin pen See Rx Instructions .ROUTE .COMPLEX 0RF Rx Instructions: SLIDING SCLAE Lantus Solostar U-100 Insulin 100 unit/mL (3 mL) insulin pen 18 unit SUBCUT DAILY 0RF daptomycin [Cubicin] 500 mg recon soln 700 mg IV Q24H Qty: 40 0RF Rx Instructions: administer over 30 mins (DME) pen needle, diabetic 31 gauge x 3/16 needle See Rx Instructions ea subcut .MEDSUPPLY Qty: 50 0RF Rx Instructions: As directed metoprolol succinate 25 mg tablet extended release 24 hr 25 mg PO DAILY 0RF apixaban 5 mg tablet 5 mg PO BID 0RF rosuvastatin 10 mg tablet 10 mg PO DAILY Qty: 30 6RF Hold Instructions: Resume on 12/10/21. (DME) lancets [FreeStyle Lancets] 28 gauge misc See Rx Instructions ea topical TID Qty: 100 0RF Rx Instructions: As directed <Courtney Linda NP - Last Filed: 11/12/21 18:19> Referrals: Rhiannon Soto MD [Physician] - Lianne Manuel MD [Primary Care Provider] - <Courtney Linda NP - Last Filed: 11/12/21 18:19>
[2021-11-12] MEDS: Alteplase Cath Clear 2 MG VIAL INTRACATH (18:01)
== END 2021-11-12 20:27 | disposition home or self-care (01) ==
PROVIDERS: Emergency Provider Emergency Medicine; PCP Internal Medicine
DX: T82.594A Other mechanical complication of infusion catheter, initial encounter (principal); Y80.1 Therapeutic (nonsurgical) and rehabilitative physical medicine devices associated with adverse incidents; Y92.9 Unspecified place or not applicable; E11.22 Type 2 diabetes mellitus with diabetic chronic kidney disease; I12.0 Hypertensive chronic kidney disease with stage 5 chronic kidney disease or end stage renal disease; N18.6 End stage renal disease; Z99.2 Dependence on renal dialysis; D63.1 Anemia in chronic kidney disease; Z79.2 Long term (current) use of antibiotics; Z79.01 Long term (current) use of anticoagulants; Z79.02 Long term (current) use of antithrombotics/antiplatelets; Z79.82 Long term (current) use of aspirin
CPT/HCPCS: 96374; 99284; J2997

== ENCOUNTER 2021-11-18 13:20 | Outpatient (REF) | payer OTHER, SELFPAY ==
[2021-11-18 13:27] LABS: MANUAL DIFF FLAG NO
[2021-11-18 13:33] LABS: Basophils Percent Auto 0.3 % (0-2); Eosinophils Absolute Auto 0.1 X10*3/uL (0.0-0.4); Eosinophils Percent Auto 1.3 % (0-4); Hematocrit 32.5 % (42.0-52.0); Hemoglobin 9.9 g/dl (14.0-18.0); Imm Gran Abs Auto 0.09 X10*3/uL (0.00-0.03); Imm Gran Pct Auto 1.3 % (0.0-0.4); Lymphocytes Absolute Auto 1.2 X10*3/uL (1.2-4.9); Lymphocytes Percent Auto 18.3 % (20-40); Mean Corpuscular HGB Conc 30.5 g/dl (31.0-36.0); Mean Corpuscular Hemoglobin 25.4 pg (27.0-33.0); Mean Corpuscular Volume 83.3 fL (80.0-98.0); Mean Platelet Volume 10.9 fL (9.4-12.4); Monocytes Absolute Auto 0.8 X10*3/uL (0.1-1.2); Monocytes Percent Auto 12.1 % (2-11); Neutrophils Absolute Auto 4.5 x10*3/uL (2.0-8.3); Neutrophils Percent Auto 66.7 % (45-73); Platelet Count 273 X10*3/uL (160-400); Red Cell Distribution Width 14.5 % (11.0-16.0); White Blood Count 6.7 X10*3/uL (4.8-10.8)
[2021-11-18 14:16] LABS: Erythrocyte Sedimentation Rate 97 MM/HR (0-15)
[2021-11-18 14:22] LABS: Alanine Aminotransferase 11 U/L (0-40); Albumin Level 3.7 g/dL (3.5-5.0); Alkaline Phosphatase 75 U/L (39-117); Anion Gap 16 (12-20); Aspartate Amino Transferase 15 U/L (5-37); Bilirubin Direct 0.2 mg/dL (0.0-0.5); Bilirubin Total 0.5 mg/dL (0.0-1.0); Blood Urea Nitrogen 15 mg/dL (9-16); C Reactive Protein 6.17 mg/dL (< or = 0.50); Calcium 8.8 mg/dL (8.4-10.2); Carbon Dioxide 25 mmol/L (22-29); Chloride 104 mmol/L (96-108); Estimated Glomerular Filt Rate 40; Glucose Random 147 mg/dL (60-115); Potassium 3.8 mmol/L (3.3-5.1); Sodium 141 mmol/L (135-145); Total Protein 6.8 g/dL (6.5-8.0)
== END 2021-11-18 13:21 | disposition home or self-care (01) ==
LOC: HO.LNP 13:20
PROVIDERS: Visit Provider Internal Medicine
DX: M86.9 Osteomyelitis, unspecified (principal)
CPT/HCPCS: 80048; 80076; 82550; 85025; 85652; 86140

== ENCOUNTER 2021-11-25 14:37 | Outpatient (REF) | payer OTHER, SELFPAY ==
[2021-11-25 14:43] LABS: MANUAL DIFF FLAG NO
[2021-11-25 14:54] LABS: Basophils Percent Auto 0.4 % (0-2); Eosinophils Absolute Auto 0.1 X10*3/uL (0.0-0.4); Eosinophils Percent Auto 1.2 % (0-4); Hematocrit 33.7 % (42.0-52.0); Hemoglobin 10.1 g/dl (14.0-18.0); Imm Gran Abs Auto 0.07 X10*3/uL (0.00-0.03); Imm Gran Pct Auto 1.2 % (0.0-0.4); Lymphocytes Absolute Auto 1.3 X10*3/uL (1.2-4.9); Lymphocytes Percent Auto 22.6 % (20-40); Mean Corpuscular Hemoglobin 24.9 pg (27.0-33.0); Mean Platelet Volume 10.6 fL (9.4-12.4); Monocytes Absolute Auto 0.6 X10*3/uL (0.1-1.2); Monocytes Percent Auto 9.8 % (2-11); Neutrophils Absolute Auto 3.7 x10*3/uL (2.0-8.3); Neutrophils Percent Auto 64.8 % (45-73); Platelet Count 288 X10*3/uL (160-400); Red Blood Count 4.06 X10*6/uL (4.60-5.80); Red Cell Distribution Width 14.8 % (11.0-16.0); White Blood Count 5.7 X10*3/uL (4.8-10.8)
[2021-11-25 15:42] LABS: Erythrocyte Sedimentation Rate 91 MM/HR (0-15)
[2021-11-25 15:44] LABS: Alanine Aminotransferase 12 U/L (0-40); Albumin Level 3.7 g/dL (3.5-5.0); Alkaline Phosphatase 80 U/L (39-117); Anion Gap 15 (12-20); Aspartate Amino Transferase 13 U/L (5-37); Bilirubin Direct < 0.2 mg/dL (0.0-0.5); Bilirubin Total 0.4 mg/dL (0.0-1.0); Blood Urea Nitrogen 16 mg/dL (9-16); C Reactive Protein 4.28 mg/dL (< or = 0.50); Calcium 8.8 mg/dL (8.4-10.2); Carbon Dioxide 24 mmol/L (22-29); Chloride 103 mmol/L (96-108); Estimated Glomerular Filt Rate 42; Glucose Random 271 mg/dL (60-115); Sodium 138 mmol/L (135-145); Total Protein 6.7 g/dL (6.5-8.0)
== END 2021-11-25 14:38 | disposition home or self-care (01) ==
LOC: HO.LNP 14:37
PROVIDERS: Visit Provider Internal Medicine
DX: M86.9 Osteomyelitis, unspecified (principal)
CPT/HCPCS: 80048; 80076; 82550; 85025; 85652; 86140

== ENCOUNTER → 2021-11-29 14:23 | Outpatient (BNVA) | payer OTHER, SELFPAY | PROVIDERS: PCP Internal Medicine; Visit Provider Urology | DX: C62.90 Malignant neoplasm of unspecified testis, unspecified whether descended or undescended (principal) | CPT/HCPCS: Q3014 ==

== ENCOUNTER → 2021-12-17 11:33 | Outpatient (BNVA) | payer OTHER, SELFPAY | PROVIDERS: PCP Internal Medicine; Visit Provider Internal Medicine | DX: M86.9 Osteomyelitis, unspecified (principal) | CPT/HCPCS: 99212 ==

== ENCOUNTER 2021-12-20 10:04 | Outpatient (REF) | payer OTHER, SELFPAY ==
--- NOTE | ~2021-12-20 | IR_ITS ---
EXAMINATION: REMOVAL OF PROLINE LIRIANO CATHETER CLINICAL INFORMATION: Antibiotic treatment is over and tunnel catheter is not needed. COMPARISON: None TECHNIQUE: Following explaining the procedure of removal of catheter the patient was placed supine on the IR table and area cleaned in a sterile fashion at the incision site of Liriano catheter. 1% lidocaine was injected for numbing the site. Using blunt tweezers and forceps were introduced through the skin incision subcutaneously and the cuff was from the underlying skin. Gently the catheter was pulled out. Complete hemostasis achieved at puncture site. 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 Patient tolerated procedure extremely well. Successful removal of tunneled Liriano catheter under 1% local lidocaine. The entire length of the catheter was measured postprocedure and matched the pre-insertion measurements.
== END 2021-12-20 10:05 | disposition home or self-care (01) ==
LOC: HO.RADIR 10:04
PROVIDERS: PCP Internal Medicine; Visit Provider Internal Medicine
DX: Z45.2 Encounter for adjustment and management of vascular access device (principal); M86.9 Osteomyelitis, unspecified
CPT/HCPCS: 36589

== ENCOUNTER 2022-02-24 10:59 | Outpatient (RCR) | payer OTHER, SELFPAY | END 2022-07-22 16:00 | disposition home or self-care (01) | LOC: HO.WCC 10:59 | PROVIDERS: Visit Provider Physician Assistant | DX: E11.621 Type 2 diabetes mellitus with foot ulcer (principal); L97.512 Non-pressure chronic ulcer of other part of right foot with fat layer exposed; E11.40 Type 2 diabetes mellitus with diabetic neuropathy, unspecified; I10 Essential (primary) hypertension; Z94.0 Kidney transplant status; Z92.3 Personal history of irradiation | CPT/HCPCS: 11042; 15275; 29445; 99212; Q4187 ==

== ENCOUNTER 2022-08-25 12:35 | Outpatient (RCR) | payer OTHER, SELFPAY ==
--- NOTE | ~2022-08-25 | XR_ITS ---
EXAMINATION: XR FOOT, RIGHT CLINICAL INFORMATION: Nonhealing wound. Osteomyelitis. COMPARISON: Right toe radiographs dated 03/12/2020. TECHNIQUE: AP, lateral, and oblique views of the right foot. FINDINGS: Soft tissue defect along the plantar aspect of the 1st metatarsophalangeal joint. No radiopaque foreign body. No adjacent osseous erosion or periosteal reaction. No abnormal soft tissue calcification. No acute fracture or dislocation. Chronic deformity at the base of the 3rd and 4th proximal phalanges, likely representing sequela of remote trauma. No concerning lytic or blastic osseous lesion. Plantar and dorsal calcaneal spurs. Circumferential subcutaneous edema. Dystrophic calcifications. XR/XR foot RT min 3V IMPRESSION: Soft tissue defect along the plantar aspect of the 1st metatarsophalangeal joint. No adjacent osseous abnormality to suggest acute osteomyelitis. Early osteomyelitis may be occult on plain radiographs and if there is clinical concern, bone scan or MRI without and with contrast could help further evaluate.
[2022-09-17 08:30] LABS: MANUAL DIFF FLAG NO
[2022-09-17 08:41] LABS: Basophils Absolute Auto 0.1 X10*3/uL (0.0-0.2); Basophils Percent Auto 0.7 % (0-2); Eosinophils Absolute Auto 0.1 X10*3/uL (0.0-0.4); Eosinophils Percent Auto 1.5 % (0-4); Hematocrit 43.1 % (42.0-52.0); Hemoglobin 13.7 g/dl (14.0-18.0); Imm Gran Abs Auto 0.16 X10*3/uL (0.00-0.03); Imm Gran Pct Auto 2.1 % (0.0-0.4); Lymphocytes Absolute Auto 1.5 X10*3/uL (1.2-4.9); Lymphocytes Percent Auto 19.3 % (20-40); Mean Corpuscular HGB Conc 31.8 g/dl (31.0-36.0); Mean Corpuscular Hemoglobin 28.1 pg (27.0-33.0); Mean Corpuscular Volume 88.5 fL (80.0-98.0); Mean Platelet Volume 10.8 fL (9.4-12.4); Monocytes Absolute Auto 0.9 X10*3/uL (0.1-1.2); Monocytes Percent Auto 12.2 % (2-11); Neutrophils Absolute Auto 4.9 x10*3/uL (2.0-8.3); Neutrophils Percent Auto 64.2 % (45-73); Platelet Count 185 X10*3/uL (160-400); Red Blood Count 4.87 X10*6/uL (4.60-5.80); Red Cell Distribution Width 16.6 % (11.0-16.0); White Blood Count 7.6 X10*3/uL (4.8-10.8)
[2022-09-17 08:57] LABS: Anion Gap 17 (12-20); Blood Urea Nitrogen 17 mg/dL (9-16); C Reactive Protein 1.15 mg/dL (< or = 0.50); Calcium 9.2 mg/dL (8.4-10.2); Carbon Dioxide 25 mmol/L (22-29); Chloride 104 mmol/L (96-108); Estimated Glomerular Filt Rate 37; Glucose Random 198 mg/dL (60-115); Potassium 4.6 mmol/L (3.3-5.1); Sodium 141 mmol/L (135-145)
[2022-09-17 09:01] LABS: Estimated Average Glucose 183 mg/dL
[2022-09-17 09:23] LABS: Erythrocyte Sedimentation Rate 23 MM/HR (0-15)
== END 2022-11-21 14:12 | disposition home or self-care (01) ==
LOC: HO.WCC 12:35
PROVIDERS: PCP Family Medicine; Visit Provider Physician Assistant
DX: E11.621 Type 2 diabetes mellitus with foot ulcer (principal); L97.512 Non-pressure chronic ulcer of other part of right foot with fat layer exposed; T81.31XD Disruption of external operation (surgical) wound, not elsewhere classified, subsequent encounter; E11.40 Type 2 diabetes mellitus with diabetic neuropathy, unspecified; Z94.0 Kidney transplant status; Z89.421 Acquired absence of other right toe(s); Z92.3 Personal history of irradiation; Z86.19 Personal history of other infectious and parasitic diseases
CPT/HCPCS: 11042; 36415; 73630; 80048; 83036; 84134; 85025; 85652; 86140; 87070; 87073; 87077; 87147; 87186; 87205; 99212

== ENCOUNTER 2022-09-26 11:24 | Outpatient (REF) | payer OTHER, SELFPAY ==
[2022-09-26 14:24] LABS: Appearance Urine Turbid; Color Urine Yellow; Glucose Urine UA >=1000 mg/dL (Negative); Leukocyte Esterase Urine Negative (Negative); Nitrite Urine Negative (Negative); PH 5.5 (5.0-9.0); Specific Gravity - Urine 1.025 (1.005-1.025); UMIC TRIGGER UA YES; Urine Blood Small (1+) (Negative); Urine Ketones Trace mg/dL (Negative); Urine Protein 300 (3+) mg/dL (Neg-Trace)
[2022-09-26 14:28] LABS: Alanine Aminotransferase 11 U/L (0-40); Alkaline Phosphatase 87 U/L (39-117); Anion Gap 15 (12-20); Aspartate Amino Transferase 12 U/L (5-37); Blood Urea Nitrogen 21 mg/dL (9-16); Carbon Dioxide 24 mmol/L (22-29); Chloride 99 mmol/L (96-108); Cholesterol 108 mg/dL; Estimated Glomerular Filt Rate 27; Glucose Fasting 304 mg/dL (60-99); HDL Cholesterol 23 mg/dL; LDL Cholesterol Calculated 67 mg/dl; Potassium 4.3 mmol/L (3.3-5.1); Sodium 134 mmol/L (135-145); Total Protein 6.9 g/dL (6.5-8.0); Triglycerides 94 mg/dL
[2022-09-26 14:47] LABS: TSH reflex Free T4 2.88 uIU/mL (0.32-4.0)
[2022-09-26 14:53] LABS: Bacteria Urine None Seen (None Seen); Granular Casts Urine Present; RBC Urine 0-2 /HPF (0-2); WBC Urine 0-5 /HPF (0-5)
[2022-09-26 15:47] LABS: Creatinine Urine 278.33 mg/dL; Microalbum/Creatinine Ratio Ur 92.3 ug/mg cr
== END 2022-09-26 11:25 | disposition home or self-care (01) ==
LOC: HO.WFDLDS 11:24
PROVIDERS: Visit Provider Family Medicine
DX: Z00.00 Encounter for general adult medical examination without abnormal findings (principal); Z12.5 Encounter for screening for malignant neoplasm of prostate; I10 Essential (primary) hypertension
CPT/HCPCS: 36415; 80053; 80061; 81001; 82043; 84153; 84443

== ENCOUNTER 2022-10-06 11:00 | Inpatient (IN) | payer OTHER, SELFPAY ==
--- NOTE | ~2022-10-06 | XR_ITS ---
EXAMINATION: XR FOOT, RIGHT CLINICAL INFORMATION: Rule out osteomyelitis. COMPARISON: Radiograph of the right foot for 11/01/2022. TECHNIQUE: AP, lateral, and oblique views of the right foot. FINDINGS: Redemonstration of soft tissue defect along the plantar surface of the forefoot, best seen on the lateral view. New erosions in the distal third metatarsal and base of the third proximal phalanx. Possible additional erosions in the medial surfaces of the distal fourth metatarsal and proximal fourth phalanx. Findings are suspicious for osteomyelitis. No acute fracture or subluxation. Calcaneal spurs. Scattered atherosclerotic disease. XR/XR foot RT min 3V IMPRESSION: New erosions in the distal third metatarsal and base of the third proximal phalanx with possible additional erosions in the medial surfaces of the distal fourth metatarsal and proximal fourth phalanx. Findings are suspicious for osteomyelitis.
--- NOTE | ~2022-10-06 | US_ITS ---
EXAMINATION: US LOWER EXTREMITY DUPLEX, BILATERAL CLINICAL INFORMATION: Dusky fourth toe TECHNIQUE: Real-time ultrasound and Doppler techniques (integrating B-mode 2-D vascular images, Doppler spectral analysis and color flow Doppler imaging) were utilized to interrogate the lower extremities. COMPARISON: Arterial duplex 03/15/2020 FINDINGS: RIGHT LEG: Common femoral artery: 122 cm/s, Triphasic Profunda femoris artery: 140 cm/s, Triphasic Superficial femoral artery (proximal): 93 cm/s, biphasic Superficial femoral artery (mid): 119 cm/s, biphasic Superficial femoral artery (distal): 82 cm/s, biphasic Popliteal artery: 144 cm/s, biphasic Posterior tibial artery: Occluded. Peroneal artery: 35 cm/s, monophasic US/US arterial duplex LE RT IMPRESSION: 1. Atherosclerotic disease of the SFA without hemodynamically significant stenosis. 2. Occluded posterior tibial artery.
--- NOTE | ~2022-10-06 | IR_ITS ---
PROCEDURE: IR INSERTION OF TUNNEL CATHETER CLINICAL INFORMATION: Foot infection. Long-term IV antibiotic requirement. Patient has history of renal transplant. COMPARISON: None available. TECHNIQUE: Procedure and risks and benefits including bleeding, infection and pneumothorax were discussed with the patient and informed consent was obtained. All elements of maximal sterile barrier technique followed including use of cap, mask, sterile gown, sterile gloves, a sterile full body drape and hand hygiene. Also followed skin preparation with 2% chlorhexidine for cutaneous antisepsis, and sterile ultrasound preparation with sterile gel and probe cover when applicable. Initially, the right neck was prepped and draped in the usual sterile fashion. The skin and soft tissues were anesthetized with 1% lidocaine plain. Ultrasound of the right neck demonstrated occluded right internal jugular vein. Using ultrasound guidance and a 5-Malagasy micropuncture system, access to a collateral vein in the right lateral neck was obtained. Using fluoroscopic guidance and an .018 wire, central venous access from this location could not be obtained. Subsequently, the left neck was prepped and draped in the usual sterile fashion. The skin and soft tissues were anesthetized with 1% lidocaine plain. The left internal jugular vein in the neck appeared to be patent. Using ultrasound guidance and a 5-Malagasy micropuncture system, left internal jugular vein access was obtained. Using an .018 wire, attempt at central mediastinal access was made but was unsuccessful. Wire coursed superficially over the neck to the right side of the neck. Central mediastinal venous access could not be obtained. Subsequently, again using a 5-Malagasy micropuncture system, access to a collateral vessel in the left lateral neck was obtained. Over an .018 wire, a 5-Malagasy dilator was exchanged for a 5-Malagasy Glidecath. Using an .035 Glidewire, central venous access to the right atrium was obtained. The left upper anterior chest was anesthetized with 1% lidocaine plain. A small incision was made. A subcutaneous tunnel from the chest to the neck incision was anesthetized with 1% lidocaine plain. Using a tunneler, a 5-Malagasy Proline catheter was tunneled from the chest to the neck incision. A 5-Malagasy Glidecath was exchanged for a 6-Malagasy peel-away sheath. Catheter was fed through the peel-away sheath. Catheter length is 20 cm. Catheter tip is in the distal left innominate vein/proximal SVC. It was difficult to aspirate blood from the catheter. The catheter flushed easily and was instilled with 5 mL heparin 100 unit per mL solution. Intravenous contrast venogram was not performed due to patient's history of renal transplant. Real-time ultrasound guidance was used to document vein patency and for needle entry. A formal ultrasound picture was recorded. Fluoroscopy time: 10.3 minutes. DAP: 1350 cGy-cm2. FINDINGS: The right internal jugular vein is occluded. Central mediastinal access from a collateral vessel in the right neck could not be obtained. The left internal jugular vein is patent in the neck, however, central mediastinal access could not be obtained. Wire across the neck to the right side in collateral vessels and could not be advanced centrally into the chest. Central mediastinal access was obtained from a collateral vessel in the left lateral neck that communicates with the left innominate vein. IV contrast was not administered due to patient's history of renal transplant and recent angiogram. IR/IR cvc insert central tunnel IMPRESSION: Left 5-Malagasy Proline catheter placement. The catheter is in a collateral vessel in the left lateral neck with tip of catheter in the distal left innominate vein/proximal SVC. Occluded right internal jugular vein. Central venous access from the left internal jugular vein could not be obtained.
[2022-10-06 12:07] VITALS: BP 102/65; PULSE 85; RESP 18; TEMP 36.3; O2SAT 100; BMI 29.5
--- NOTE | 2022-10-06 12:07 | ED_ITS ---
HPI - General Adult General Chief complaint: Extremity Injury, Lower Stated complaint: l foot infection Time Seen by Provider: 10/06/22 17:16 Related Data Home Medications Medication Instructions Recorded Confirmed calcifediol 30 mcg capsule,24 30 mcg PO BEDTIME 03/14/20 10/06/22 hr,extended release (Rayaldee) mycophenolate sodium 180 mg 540 mg PO BID 05/18/20 10/06/22 tablet,delayed release pen needle, diabetic 31 gauge x #50 ea 06/05/20 12/13/2008/28 apixaban 5 mg tablet 5 mg PO BID 10/12/20 10/06/22 lancets 28 gauge (FreeStyle #100 ea 06/26/21 Lancets) insulin aspart U-100 100 unit/mL 8 unit subcut TIDAC 10/26/21 10/06/22 (3 mL) subcutaneous pen (Novolog FlexPen U-100 Insulin aspart) insulin glargine 100 unit/mL (3 21 unit subcut BEDTIME 10/26/21 10/06/22 mL) subcutaneous pen (Lantus Solostar U-100 Insulin) mirtazapine 7.5 mg tablet 7.5 mg PO BEDTIME 09/26/22 10/06/22 cefuroxime axetil 250 mg tablet 250 mg PO DAILY 10/06/22 10/06/22 doxycycline monohydrate 100 mg 100 mg PO BID 10/06/22 10/06/22 capsule rosuvastatin 10 mg tablet 10 mg PO BEDTIME 10/06/22 10/06/22 tacrolimus 1 mg capsule, 4 mg PO BID 10/06/22 10/06/22 immediate-release Previous Rx's Medication Instructions Recorded 16 inch grab bar #1 ea 10/15/20 bed assist handle #1 ea 10/15/20 transport wheelchair #1 ea 10/15/20 walker (Ultra-Light Rollator misc) #1 ea 10/15/20 Allergies Allergy/AdvReac Type Severity Reaction Status Date / Time No Known Allergies Allergy Verified 10/06/22 12:11 [facility] Past Medical History Medical History 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 chronic kidney disease Bleeding internal hemorrhoids Carpal tunnel syndrome on left Chronic right shoulder pain Diabetes mellitus with diabetic nephropathy, with long-term current use of insulin Diabetes mellitus with foot ulcer End-stage renal disease on hemodialysis Hyperlipidemia Mixed dyslipidemia Multinodular goiter Osteomyelitis of left foot Paresthesia and pain of extremity Peripheral vascular disease Refused pneumococcal vaccination Secondary hyperparathyroidism of renal origin Seminoma Testicular 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 Sister No problems noted. Sister No problems noted. Social History Social History Household Members: Spouse Housing: House Do you presently have visiting nurse or other home services: No Alcohol intake: never Patient Tobacco Use Status: Never used Tobacco Smoked in Last 30 Days: No e-Cigarette/Vaping Use: Never Used Use of substances other than those prescribed or required for medical reasons: No Advance Directives: No Advance Directives Information Provided: No service: No Current occupational status: unemployed Current occupation: disability - kidney transplant. Left side dominant Physical Exam ED Vital Signs: Vital Signs - 24 hr 10/06/22 12:07 10/06/22 17:32 Temperature 97.3 F 98.3 F Pulse Rate 85 63 Respiratory Rate 18 16 Blood Pressure 102/65 131/68 Pulse Oximetry 100 98 Oxygen Delivery Method Room Air Room Air BMI result Body Mass Index 29.5 Course Course Course Narrative: RME: 52-year-old male with past medical history of diabetes, ESRD s/p kidney transplant, HLD, PVD, sent in by wound clinic for suspected osteo to right 4th toe x few days. Patient recently finished course of doxycycline and Ceftin without relief Right 4th toe purple with wound to medial aspect. No malodor. Pulses intact Labs, lactic/blood cultures, x-ray, IV vancomycin and Zosyn ordered Full HPI, ROS and PE to be performed by primary ED provider. Medications Administered Generic Name Dose Route Start Last Admin Trade Name Freq PRN Reason Stop Dose Admin Non-Formulary Medication 30 mcg 10/06/22 21:00 10/06/22 20:26 Calcifediol [Rayaldee] PO 30 mcg BEDTIME VERNA Administration Tacrolimus 4 mg 10/06/22 21:00 10/06/22 20:26 Tacrolimus 1 Mg Capsule PO 4 mg BID VERNA Administration Discontinued Medications Generic Name Dose Route Start Last Admin Trade Name Freq PRN Reason Stop Dose Admin Piperacillin Sod/Tazobactam 50 mls @ 100 mls/hr 10/06/22 12:12 10/06/22 18:51 Sod 3.375 gm/ Sodium Chloride IV 10/06/22 12:41 Infused ONCE ONE Infusion Medical Decision Making Lab Data 10/06/22 19:56 10/06/22 12:30 Labs: Lab Results 10/06/22 10/06/22 10/06/22 Range/Units 12:30 12:30 12:30 WBC 10.5 (4.8-10.8) X10*3/uL RBC 4.57 L (4.60-5.80) X10*6/uL Hgb 13.0 L (14.0-18.0) g/dl Hct 40.5 L (42.0-52.0) % MCV 88.6 (80.0-98.0) fL MCH 28.4 (27.0-33.0) pg MCHC 32.1 (31.0-36.0) g/dl RDW 15.4 (11.0-16.0) % Plt Count 338 D (160-400) X10*3/uL MPV 11.6 (9.4-12.4) fL Immature Gran % (Auto) Cancelled Neut % (Auto) Cancelled Lymph % (Auto) Cancelled [place] % (Auto) Cancelled Eos % (Auto) Cancelled Baso % (Auto) Cancelled Lymph # (Auto) Cancelled [place] # (Auto) Cancelled Eos # (Auto) Cancelled Baso # (Auto) Cancelled Abs Immat Gran (auto) Cancelled Absolute Neuts (auto) Cancelled Absolute Nucleated RBC 0.000 (0.0-0.012) X10*3/uL Nucleated RBC % (auto) 0.0 (0.0-0.2) /100WBC Neutrophils % (Manual) 62 (45-73) % Band Neutrophils % 2 L (3-5) % Lymphocytes % (Manual) 15 L (20-40) % Atypical Lymphs % (Man) 1 (0-6) % Monocytes % (Manual) 13 H (2-11) % Eosinophils % (Manual) 2 (0-4) % Metamyelocytes % 2 % Myelocytes % 3 % Abs Neuts (Manual) 6.7 (2.0-8.3) X10*3/uL Lymphocytes # (Manual) 1.6 (1.2-4.9) X10*3/uL Atyp Lymphs # (Manual) 0.1 x10*3/uL Monocytes # (Manual) 1.4 H (0.1-1.2) X10*3/uL Eosinophils # (Manual) 0.2 (0.0-0.4) X10*3/uL Metamyelocytes # 0.2 X10*3/uL Myelocytes # 0.3 X10*/uL Platelet Estimate NORMAL (NORMAL) Plt Morphology Comment NORMAL RBC Morphology NOTED Braxton Cells 1+ (0-2) /OIF PT 21.8 H (10.0-13.1) SEC INR 1.9 H (0.9-1.1) Sodium 141 (135-145) mmol/L Potassium 4.0 (3.3-5.1) mmol/L Chloride 104 (96-108) mmol/L Carbon Dioxide 26 (22-29) mmol/L Anion Gap 15 (12-20) BUN 17 H (9-16) mg/dL Creatinine 2.29 H (0.5-1.4) mg/dL Estim Creat Clear Calc 42.4 Estimated GFR 30 Random Glucose 212 H (60-115) mg/dL Lactic Acid (0.5-2.0) mmol/L Lactic Acid F/U @ 2Hr (0.5-2.0) mmol/L Calcium 9.4 (8.4-10.2) mg/dL Total Bilirubin 0.4 (0.0-1.0) mg/dL Direct Bilirubin 0.2 (0.0-0.5) mg/dL AST 18 (5-37) U/L ALT 26 (0-40) U/L Alkaline Phosphatase 73 (39-117) U/L B-Natriuretic Peptide (<100) pg/mL Total Protein 6.6 (6.5-8.0) g/dL Albumin 3.7 (3.5-5.0) g/dL 10/06/22 10/06/22 10/06/22 Range/Units 12:30 12:30 15:31 WBC (4.8-10.8) X10*3/uL RBC (4.60-5.80) X10*6/uL Hgb (14.0-18.0) g/dl Hct (42.0-52.0) % MCV (80.0-98.0) fL MCH (27.0-33.0) pg MCHC (31.0-36.0) g/dl RDW (11.0-16.0) % Plt Count (160-400) X10*3/uL MPV (9.4-12.4) fL Immature Gran % (Auto) Neut % (Auto) Lymph % (Auto) Florence % (Auto) Eos % (Auto) Baso % (Auto) Lymph # (Auto) [place] # (Auto) Eos # (Auto) Baso # (Auto) Abs Immat Gran (auto) Absolute Neuts (auto) Absolute Nucleated RBC (0.0-0.012) X10*3/uL Nucleated RBC % (auto) (0.0-0.2) /100WBC Neutrophils % (Manual) (45-73) % Band Neutrophils % (3-5) % Lymphocytes % (Manual) (20-40) % Atypical Lymphs % (Man) (0-6) % Monocytes % (Manual) (2-11) % Eosinophils % (Manual) (0-4) % Metamyelocytes % % Myelocytes % % Abs Neuts (Manual) (2.0-8.3) X10*3/uL Lymphocytes # (Manual) (1.2-4.9) X10*3/uL Atyp Lymphs # (Manual) x10*3/uL Monocytes # (Manual) (0.1-1.2) X10*3/uL Eosinophils # (Manual) (0.0-0.4) X10*3/uL Metamyelocytes # X10*3/uL Myelocytes # X10*/uL Platelet Estimate (NORMAL) Plt Morphology Comment RBC Morphology Braxton Cells /OIF PT (10.0-13.1) SEC INR (0.9-1.1) Sodium (135-145) mmol/L Potassium (3.3-5.1) mmol/L Chloride (96-108) mmol/L Carbon Dioxide (22-29) mmol/L Anion Gap (12-20) BUN (9-16) mg/dL Creatinine (0.5-1.4) mg/dL Estim Creat Clear Calc Estimated GFR Random Glucose (60-115) mg/dL Lactic Acid 2.3 H* (0.5-2.0) mmol/L Lactic Acid F/U @ 2Hr 1.3 (0.5-2.0) mmol/L Calcium (8.4-10.2) mg/dL Total Bilirubin (0.0-1.0) mg/dL Direct Bilirubin (0.0-0.5) mg/dL AST (5-37) U/L ALT (0-40) U/L Alkaline Phosphatase (39-117) U/L B-Natriuretic Peptide 43 (<100) pg/mL Total Protein (6.5-8.0) g/dL Albumin (3.5-5.0) g/dL Discharge Plan Discharge Clinical Impression: Osteomyelitis Patient Disposition: Admitted As Inpatient
[2022-10-06 12:44] LABS: Hematocrit 40.5 % (42.0-52.0); Mean Corpuscular HGB Conc 32.1 g/dl (31.0-36.0); Mean Corpuscular Hemoglobin 28.4 pg (27.0-33.0); Mean Corpuscular Volume 88.6 fL (80.0-98.0); Mean Platelet Volume 11.6 fL (9.4-12.4); Platelet Count 338 X10*3/uL (160-400); Red Blood Count 4.57 X10*6/uL (4.60-5.80); Red Cell Distribution Width 15.4 % (11.0-16.0); White Blood Count 10.5 X10*3/uL (4.8-10.8)
[2022-10-06 12:45] LABS: INTERNATIONAL NORM RATIO 1.9 (0.9-1.1); Prothrombin Time 21.8 SEC (10.0-13.1)
[2022-10-06 12:55] LABS: Alanine Aminotransferase 26 U/L (0-40); Albumin Level 3.7 g/dL (3.5-5.0); Alkaline Phosphatase 73 U/L (39-117); Anion Gap 15 (12-20); Aspartate Amino Transferase 18 U/L (5-37); Bilirubin Direct 0.2 mg/dL (0.0-0.5); Bilirubin Total 0.4 mg/dL (0.0-1.0); Blood Urea Nitrogen 17 mg/dL (9-16); Calcium 9.4 mg/dL (8.4-10.2); Carbon Dioxide 26 mmol/L (22-29); Chloride 104 mmol/L (96-108); Creatinine Clr Calc Pharmacy 42.4; Estimated Glomerular Filt Rate 30; Glucose Random 212 mg/dL (60-115); Sodium 141 mmol/L (135-145); Total Protein 6.6 g/dL (6.5-8.0)
[2022-10-06 12:58] LABS: Lactic Acid 2.3 mmol/L (0.5-2.0)
[2022-10-06 13:38] LABS: B Type Natriuretic Peptide 43 pg/mL (<100)
[2022-10-06 14:04] LABS: Atypical Lymph Absolute Manual 0.1 x10*3/uL; Atypical Lymphs Percent Manual 1 % (0-6); Band Neutrophils Percent 2 % (3-5); Eosinophils Absolute Manual 0.2 X10*3/uL (0.0-0.4); Eosinophils Percent Manual 2 % (0-4); Lymphocytes Absolute Manual 1.6 X10*3/uL (1.2-4.9); Lymphocytes Percent Manual 15 % (20-40); Metamyelocytes Absolute 0.2 X10*3/uL; Metamyelocytes Percent 2 %; Monocytes Absolute Manual 1.4 X10*3/uL (0.1-1.2); Monocytes Percent Manual 13 % (2-11); Myelocytes Absolute 0.3 X10*/uL; Myelocytes Percent 3 %; Neutrophils Absolute Manual 6.7 X10*3/uL (2.0-8.3); Neutrophils Percent Manual 62 % (45-73)
[2022-10-06 14:06] LABS: Burr Cells 1+ (0-2) /OIF; Platelet Estimate NORMAL (NORMAL); Platelet Morphology Comment NORMAL; RBC Morphology NOTED
[2022-10-06 14:35] LABS: Reflex Lactate? Lactic Acid Added
[2022-10-06 15:47] LABS: ~Lactic Acid-LAB USE ONLY 1.3 mmol/L (0.5-2.0)
[2022-10-06 17:32] VITALS: BP 131/68; PULSE 63; RESP 16; TEMP 36.8; O2SAT 98
--- NOTE | 2022-10-06 17:52 | PHA.MEDREC ---
Pharmacy Consult ? Medication Reconciliation Pharmacy has completed the medication reconciliation. Patient is off all HTN meds including valsartan, norvasc, and metoprolol. He is no longer on everolimus and back on tacrolimus plus cellcept for his s/p kidney transplant. Patient also takes Rayalee which his gave to me. He has 2 days of doxy and 5 days of cefuroxime left Siddharth
[2022-10-06] MEDS: Piperacillin Sodium/Tazobactam 3.375 GM in 0.9 % Sodium Chloride 50 ML IV (17:55)
--- NOTE | 2022-10-06 18:09 | ED.LOWEXIN ---
HPI - Extremity Injury (Lower) General Chief Complaint: Extremity Injury, Lower Stated Complaint: l foot infection Time Seen by Provider: 10/06/22 17:16 History of Present Illness HPI Narrative: Patient is a 52-year-old male with a long history of diabetes. Status post kidney transplant 4 years prior. On immunosuppressant therapy. Positive going to the wound clinic for an infection to the right distal foot. Was started on doxycycline and cefuroxime approximately 1 week ago. Patient claims compliance of medication. Was seen at wound care again. Seems like the wound has gotten worse. Sent in for further evaluation. No fever no chills no systemic complaints. Patient is from home. No cough no congestion upper respiratory symptoms. No diaphoresis. Related Data Home Medications Medication Instructions Recorded Confirmed calcifediol 30 mcg capsule,24 30 mcg PO BEDTIME 03/14/20 10/06/22 hr,extended release (Rayaldee) mycophenolate sodium 180 mg 540 mg PO BID 05/18/20 10/06/22 tablet,delayed release pen needle, diabetic 31 gauge x #50 ea 06/05/20 12/13/2008/28 apixaban 5 mg tablet 5 mg PO BID 10/12/20 10/06/22 lancets 28 gauge (FreeStyle #100 ea 06/26/21 Lancets) insulin aspart U-100 100 unit/mL 8 unit subcut TIDAC 10/26/21 10/06/22 (3 mL) subcutaneous pen (Novolog FlexPen U-100 Insulin aspart) insulin glargine 100 unit/mL (3 21 unit subcut BEDTIME 10/26/21 10/06/22 mL) subcutaneous pen (Lantus Solostar U-100 Insulin) mirtazapine 7.5 mg tablet 7.5 mg PO BEDTIME 09/26/22 10/06/22 cefuroxime axetil 250 mg tablet 250 mg PO DAILY 10/06/22 10/06/22 doxycycline monohydrate 100 mg 100 mg PO BID 10/06/22 10/06/22 capsule rosuvastatin 10 mg tablet 10 mg PO BEDTIME 10/06/22 10/06/22 tacrolimus 1 mg capsule, 4 mg PO BID 10/06/22 10/06/22 immediate-release Previous Rx's Medication Instructions Recorded 16 inch grab bar #1 ea 10/15/20 bed assist handle #1 ea 10/15/20 transport wheelchair #1 ea 10/15/20 walker (Ultra-Light Rollator misc) #1 ea 10/15/20 Allergies Allergy/AdvReac Type Severity Reaction Status Date / Time No Known Allergies Allergy Verified 10/06/22 12:11 Review of Systems Review of Systems: Positive pain and discharge from the right foot Yes all other systems are reviewed and are negative [facility] Past Medical History Attestation statement: The following information was validated with the patient. 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 Sister No problems noted. Sister No problems noted. Social History Social History Household Members: Spouse Housing: House Do you presently have visiting nurse or other home services: No Alcohol intake: never Patient Tobacco Use Status: Never used Tobacco Smoked in Last 30 Days: No e-Cigarette/Vaping Use: Never Used Use of substances other than those prescribed or required for medical reasons: No Advance Directives: No Advance Directives Information Provided: No service: No Current occupational status: unemployed Current occupation: disability - kidney transplant. Left side dominant Physical Exam Vital Signs: Vital Signs: Last Vital Signs Temp 98.3 F 10/06/22 17:32 Pulse 63 10/06/22 17:32 Resp 16 10/06/22 17:32 BP 131/68 10/06/22 17:32 Pulse Ox 98 10/06/22 17:32 O2 Del Method Room Air 10/06/22 17:32 BMI result Body Mass Index 29.5 Appearance: Alert. Oriented X3. No acute distress. Eyes: Pupils equal, round and reactive to light. ENT: Pharynx normal. Neck: Normal inspection. Neck supple. No lymph nodes noted. No crepitus CVS: Normal heart rate and rhythm. Pulses normal. Normal S1 and S2 Respiratory: No respiratory distress. Breath sounds normal. No Wheezing. No rales Abdomen: Soft and nontender. No rigidity. No distention. good BS x4 Skin: Skin warm and dry. Normal skin color. Normal skin turgor. Extremities: Examination of the left foot showed diminished pulses at dorsalis pedis. Warm to touch at the distal foot swollen. Sensation is off in the 3rd 4th and 5th toe. The 4th toe appeared black. There is positive discharge noted. For capillary refill noted. Neuro: Oriented X 3. No motor deficit. No sensory deficit. Moving all extermities. No slurred speech Medications Administered Discontinued Medications Generic Name Dose Route Start Last Admin Trade Name Freq PRN Reason Stop Dose Admin Piperacillin Sod/Tazobactam 50 mls @ 100 mls/hr 10/06/22 12:12 10/06/22 17:55 Sod 3.375 gm/ Sodium Chloride IV 10/06/22 12:41 100 mls/hr ONCE ONE Administration Medical Decision Making Medical Decision Making [facility] Narrative: Patient has no systemic fever failed outpatient treatment with oral antibiotics. Wound seems to be worse with Wound Center. Cultures were obtained. Patient will be started on vancomycin and cefepime. He has a history of being immunocompromised as he has a history of kidney transplant. His case is also complicated by long history of diabetes. Patient's lactate minimally elevated at 2.3. A sepsis alert was called. 30 cc/kilos of IV fluid being infused. Patient's creatinine is 2.29 today this is approximately baseline. He did not have any coughing congestion upper respiratory symptoms. No signs of upper respiratory symptoms. Patient's case discussed with hospitalist team. Patient's lactate initially was elevated repeat lactate was actually normal. No evidence for sepsis. Differential Diagnosis Differential Diagnoses: The differential diagnosis associated with the presentation includes Osteomyelitis, cellulitis, respiratory infection, UTI Admission/Observation Consideration of admission/observation: Escalation of care including admission/observation considered Consult Healthcare Provider Management of the patient was discussed with: Hospitalist Lab Data MDM Lab Attestation statement: I reviewed the patient's lab results. 10/06/22 12:30 10/06/22 12:30 Labs: Lab Results 10/06/22 10/06/22 10/06/22 Range/Units 12:30 12:30 12:30 WBC 10.5 (4.8-10.8) X10*3/uL RBC 4.57 L (4.60-5.80) X10*6/uL Hgb 13.0 L (14.0-18.0) g/dl Hct 40.5 L (42.0-52.0) % MCV 88.6 (80.0-98.0) fL MCH 28.4 (27.0-33.0) pg MCHC 32.1 (31.0-36.0) g/dl RDW 15.4 (11.0-16.0) % Plt Count 338 D (160-400) X10*3/uL MPV 11.6 (9.4-12.4) fL Immature Gran % (Auto) Cancelled Neut % (Auto) Cancelled Lymph % (Auto) Cancelled Sebastian % (Auto) Cancelled Eos % (Auto) Cancelled Baso % (Auto) Cancelled Lymph # (Auto) Cancelled Sebastian # (Auto) Cancelled Eos # (Auto) Cancelled Baso # (Auto) Cancelled Abs Immat Gran (auto) Cancelled Absolute Neuts (auto) Cancelled Absolute Nucleated RBC 0.000 (0.0-0.012) X10*3/uL Nucleated RBC % (auto) 0.0 (0.0-0.2) /100WBC Neutrophils % (Manual) 62 (45-73) % Band Neutrophils % 2 L (3-5) % Lymphocytes % (Manual) 15 L (20-40) % Atypical Lymphs % (Man) 1 (0-6) % Monocytes % (Manual) 13 H (2-11) % Eosinophils % (Manual) 2 (0-4) % Metamyelocytes % 2 % Myelocytes % 3 % Abs Neuts (Manual) 6.7 (2.0-8.3) X10*3/uL Lymphocytes # (Manual) 1.6 (1.2-4.9) X10*3/uL Atyp Lymphs # (Manual) 0.1 x10*3/uL Monocytes # (Manual) 1.4 H (0.1-1.2) X10*3/uL Eosinophils # (Manual) 0.2 (0.0-0.4) X10*3/uL Metamyelocytes # 0.2 X10*3/uL Myelocytes # 0.3 X10*/uL Platelet Estimate NORMAL (NORMAL) Plt Morphology Comment NORMAL RBC Morphology NOTED Whitsett Cells 1+ (0-2) /OIF PT 21.8 H (10.0-13.1) SEC INR 1.9 H (0.9-1.1) Sodium 141 (135-145) mmol/L Potassium 4.0 (3.3-5.1) mmol/L Chloride 104 (96-108) mmol/L Carbon Dioxide 26 (22-29) mmol/L Anion Gap 15 (12-20) BUN 17 H (9-16) mg/dL Creatinine 2.29 H (0.5-1.4) mg/dL Estim Creat Clear Calc 42.4 Estimated GFR 30 Random Glucose 212 H (60-115) mg/dL Lactic Acid (0.5-2.0) mmol/L Lactic Acid F/U @ 2Hr (0.5-2.0) mmol/L Calcium 9.4 (8.4-10.2) mg/dL Total Bilirubin 0.4 (0.0-1.0) mg/dL Direct Bilirubin 0.2 (0.0-0.5) mg/dL AST 18 (5-37) U/L ALT 26 (0-40) U/L Alkaline Phosphatase 73 (39-117) U/L B-Natriuretic Peptide (<100) pg/mL Total Protein 6.6 (6.5-8.0) g/dL Albumin 3.7 (3.5-5.0) g/dL 10/06/22 10/06/22 10/06/22 Range/Units 12:30 12:30 15:31 WBC (4.8-10.8) X10*3/uL RBC (4.60-5.80) X10*6/uL Hgb (14.0-18.0) g/dl Hct (42.0-52.0) % MCV (80.0-98.0) fL MCH (27.0-33.0) pg MCHC (31.0-36.0) g/dl RDW (11.0-16.0) % Plt Count (160-400) X10*3/uL MPV (9.4-12.4) fL Immature Gran % (Auto) Neut % (Auto) Lymph % (Auto) Sebastian % (Auto) Eos % (Auto) Baso % (Auto) Lymph # (Auto) Sebastian # (Auto) Eos # (Auto) Baso # (Auto) Abs Immat Gran (auto) Absolute Neuts (auto) Absolute Nucleated RBC (0.0-0.012) X10*3/uL Nucleated RBC % (auto) (0.0-0.2) /100WBC Neutrophils % (Manual) (45-73) % Band Neutrophils % (3-5) % Lymphocytes % (Manual) (20-40) % Atypical Lymphs % (Man) (0-6) % Monocytes % (Manual) (2-11) % Eosinophils % (Manual) (0-4) % Metamyelocytes % % Myelocytes % % Abs Neuts (Manual) (2.0-8.3) X10*3/uL Lymphocytes # (Manual) (1.2-4.9) X10*3/uL Atyp Lymphs # (Manual) x10*3/uL Monocytes # (Manual) (0.1-1.2) X10*3/uL Eosinophils # (Manual) (0.0-0.4) X10*3/uL Metamyelocytes # X10*3/uL Myelocytes # X10*/uL Platelet Estimate (NORMAL) Plt Morphology Comment RBC Morphology Whitsett Cells /OIF PT (10.0-13.1) SEC INR (0.9-1.1) Sodium (135-145) mmol/L Potassium (3.3-5.1) mmol/L Chloride (96-108) mmol/L Carbon Dioxide (22-29) mmol/L Anion Gap (12-20) BUN (9-16) mg/dL Creatinine (0.5-1.4) mg/dL Estim Creat Clear Calc Estimated GFR Random Glucose (60-115) mg/dL Lactic Acid 2.3 H* (0.5-2.0) mmol/L Lactic Acid F/U @ 2Hr 1.3 (0.5-2.0) mmol/L Calcium (8.4-10.2) mg/dL Total Bilirubin (0.0-1.0) mg/dL Direct Bilirubin (0.0-0.5) mg/dL AST (5-37) U/L ALT (0-40) U/L Alkaline Phosphatase (39-117) U/L B-Natriuretic Peptide 43 (<100) pg/mL Total Protein (6.5-8.0) g/dL Albumin (3.5-5.0) g/dL Radiology Impression Discussion of test interpretation with radiology: I have reviewed the radiologist's reading. Radiologist Impression: X-ray of the foot consistent with having osteomyelitis Independent Historian Clinical information obtained from an independent historian. History obtained from or confirmed by: Spouse Additional history was obtained from patient's spouse External Record Review External record reviewed: Inpatient record Chronic Conditions Patient?s care impacted by: Diabetes and Hypertension Peripheral vascular disease. Chronic wound Discharge Plan Discharge Clinical Impression: Osteomyelitis Patient Disposition: Admitted As Inpatient
--- NOTE | 2022-10-06 18:48 | P.HPHOSP_ITS ---
History of Present Illness Date of Service: 10/06/22 Attending physician on admission: Rodrigo Iraheta Chief Complaint: foot infection 52-year-old male with history of testicular cancer stage III completed chemo 10/2020, insulin-dependent type 1 diabetes, paroxysmal atrial fibrillation a nticoagulated with Eliquis, CKD stage 4 s/p left-sided renal transplant on immunosuppressive therapy, peripheral vascular disease, hyperlipidemia, history of osteomyelitis of the left foot, anemia of chronic disease, secondary hyperparathyroidism presents to the ED from wound care clinic where he has been following for chronic right foot ulcer. He reports he has had a wound on the plantar surface of the right foot for several months for which she has been following with wound care but about 3-4 days ago developed dusky discoloration with wound of the right 4th toe which is new. He was started on cefuroxime and doxycycline by the Wound Clinic but symptoms continued to worsen and he was advi sed to present to the ED for further evaluation. He denies any fevers, chills. On arrival, vital signs stable. No leukocytosis. Renal function baseline, electrolyte levels normal. Initial lactic acid 2.3, follow-up 1.3. X-ray of the right foot showing new bony erosions in the distal 3rd metatarsal and base of the 3rd proximal phalanx with possible additional erosions in the medial surfaces of the distal 4th metatarsal and proximal 4th phalanx concerning for osteomyelitis. While in the ED, treated with IV Zosyn. Review of Systems Review of Systems: General: No fevers, malaise, unintentional weight loss HEENT: No blurred vision, diplopia. No sore throat, nasal congestion, rhinorrhea, sinus pain, ear pain Cardiovascular: No chest pain, palpitations, or leg edema Respiratory: No shortness of breath, wheezing, cough GI: No abdominal pain, nausea, vomiting, diarrhea, constipation, melena, he matochezia : No dysuria, hematuria, increased urinary frequency, decreased urinary output MSK: No myalgia, back pain Neuro: No headaches, weakness, paresthesias Skin: No rashes or lesions. +wound plantar surface right foot, + wound right 4th toe PMFSH Medical History 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 chronic kidney disease Bleeding internal hemorrhoids Carpal tunnel syndrome on left Chronic right shoulder pain Diabetes mellitus with diabetic nephropathy, with long-term current use of insulin Diabetes mellitus with foot ulcer End-stage renal disease on hemodialysis Hyperlipidemia Mixed dyslipidemia Multinodular goiter Osteomyelitis of left foot Paresthesia and pain of extremity Peripheral vascular disease Refused pneumococcal vaccination Secondary hyperparathyroidism of renal origin Seminoma Testicular cancer Type 2 diabetes mellitus with chronic kidney disease Type 2 diabetes mellitus with hyperglycemia, with long-term current use of ins ulin Vaccination refused by patient Family History Father Unknown family medical history Mother Diabetes mellitus HTN (hypertension) CVD (cardiovascular disease) History of CVA (cerebrovascular accident) Stroke Sister Diabetes mellitus Daughter No problems noted. Sister No problems noted. Sister No problems noted. Surgical History History of kidney transplant Social History Household Members: Spouse, Family and Children Housing: House Do you presently have visiting nurse or other home services: No Alcohol intake: never Patient Tobacco Use Status: Never used Tobacco Smoked in Last 30 Days: No e-Cigarette/Vaping Use: Never Used Use of substances other than those prescribed or required for medical reasons: No Currently Displaying Signs/Symptoms of Drug Intoxication Withdrawal: No Any prior treatment program specific to substance use: No Have you been hit, kicked, punched, or otherwise hurt by someone within the past year? If so, by whom?: No Do you feel safe in your current relationship?: No Is there a partner from a previous relationship who is making you feel unsafe now?: No Are you made to feel afraid or neglected: No Spiritual Healthcare Practices: N/A [facility]: [facility] Cultural Healthcare Practices: N/A Advance Directives: No Advance Directives Information Provided: No Do you have thoughts of harming others: None Do you have a plan to hurt others: No Plan Recently lost weight without trying: No Eating poorly because of decreased appetite: No Nutrition Risks: No Nutritional Risk Poor oral hygiene: No service: No Current occupational status: disabled Current occupation: disability - kidney transplant. Left side dominant Meds Allergies Allergy/AdvReac Type Severity Reaction Status Date / Time No Known Allergies Allergy Verified 10/06/22 12:11 Active Medications: Current Medications Sodium Chloride (Ns) 2,721.54 mls @ 2,721.54 mls/hr 30 ml/kg infuse over 1 hr (2721.54 ml) IV .Q1H STA Stop: 10/06/22 19:07 Pharmacy Consult (Consult Rx Vancomycin Dosing) 1 each MISCELLANE DAILY PRN PRN Reason: Consult order Pharmacy Consult (Consult Rx Perform Med Rec) 1 each MISCELLANE ONCE PRN PRN Reason: Consult order Home Medications Medication Instructions Recorded Confirmed Last Taken Type calcifediol 30 mcg capsule,24 30 mcg PO BEDTIME 03/14/20 10/06/22 10/05/22 History hr,extended release (Rayaldee) mycophenolate sodium 180 mg 540 mg PO BID 05/18/20 10/06/22 10/06/22 History tablet,delayed release pen needle, diabetic 31 gauge x #50 ea 06/05/20 12/13/20 Unknown History 16 apixaban 5 mg tablet 5 mg PO BID 10/12/20 10/06/22 10/06/22 History lancets 28 gauge (FreeStyle #100 ea 06/26/21 Unknown History Lancets) insulin aspart U-100 100 unit/mL 8 unit subcut TIDAC 10/26/21 10/06/22 10/06/22 History (3 mL) subcutaneous pen (Novolog FlexPen U-100 Insulin aspart) insulin glargine 100 unit/mL (3 21 unit subcut BEDTIME 10/26/21 10/06/22 10/05/22 History mL) subcutaneous pen (Lantus Solostar U-100 Insulin) mirtazapine 7.5 mg tablet 7.5 mg PO BEDTIME 09/26/22 10/06/22 10/05/22 History cefuroxime axetil 250 mg tablet 250 mg PO DAILY 10/06/22 10/06/22 Unknown History doxycycline monohydrate 100 mg 100 mg PO BID 10/06/22 10/06/22 Unknown History capsule rosuvastatin 10 mg tablet 10 mg PO BEDTIME 10/06/22 10/06/22 10/05/22 History tacrolimus 1 mg capsule, 4 mg PO BID 10/06/22 10/06/22 10/06/22 History immediate-release Physical Exam Vital Signs and Narrative: Vital Signs: Last Vital Signs Temp 98.3 F 10/06/22 17:32 Pulse 63 10/06/22 17:32 Resp 16 10/06/22 17:32 BP 131/68 10/06/22 17:32 Pulse Ox 98 10/06/22 17:32 O2 Del Method Room Air 10/06/22 17:32 BMI result Body Mass Index 29.5 Constitutional - Awake and Alert, No apparent distress Eyes - PERRLA, EOMI Cardiovascular - S1S2, RRR, nonplapable right pedal pulse complicated by 1+ edema but foot is warm Respiratory - Normal lung expansion, Normal respiratory effort, No respiratory distress, CTA bilaterally Gastrointestinal - NT / ND; +BS; No rebound or guarding Extremities - no calf tenderness bilaterally Skin - Warm/Dry. 1.5cm x 1.5cm shallow ulceration plantar surface right foot at the head of the 3rd metatarsal. Dusky discoloration right 4th toe with superficial ulceration medial aspect 4th toe with scant purulent drainage Neurological - Alert & oriented x3, CN II-XII in tact, 5/5 strength BUE and BLE Psychological - Appropriate affect Results Labs 10/06/22 12:30 10/06/22 12:30 Labs: Laboratory Results - last 24 hr 10/06/22 10/06/22 10/06/22 12:30 12:30 12:30 MCV 88.6 MCH 28.4 MCHC 32.1 RDW 15.4 Plt Count 338 D MPV 11.6 Immature Gran % (Auto) Cancelled Neut % (Auto) Cancelled Lymph % (Auto) Cancelled Kimball % (Auto) Cancelled Eos % (Auto) Cancelled Baso % (Auto) Cancelled Lymph # (Auto) Cancelled Kimball # (Auto) Cancelled Eos # (Auto) Cancelled Baso # (Auto) Cancelled Abs Immat Gran (auto) Cancelled Absolute Neuts (auto) Cancelled Absolute Nucleated RBC 0.000 Nucleated RBC % (auto) 0.0 Neutrophils % (Manual) 62 Band Neutrophils % 2 L Lymphocytes % (Manual) 15 L Atypical Lymphs % (Man) 1 Monocytes % (Manual) 13 H Eosinophils % (Manual) 2 Metamyelocytes % 2 Myelocytes % 3 Abs Neuts (Manual) 6.7 Lymphocytes # (Manual) 1.6 Atyp Lymphs # (Manual) 0.1 Monocytes # (Manual) 1.4 H Eosinophils # (Manual) 0.2 Metamyelocytes # 0.2 Myelocytes # 0.3 Platelet Estimate NORMAL Plt Morphology Comment NORMAL RBC Morphology NOTED Braxton Cells 1+ (0-2) PT 21.8 H INR 1.9 H Anion Gap 15 Estim Creat Clear Calc 42.4 Estimated GFR 30 Random Glucose 212 H Lactic Acid Lactic Acid F/U @ 2Hr Calcium 9.4 Total Bilirubin 0.4 Direct Bilirubin 0.2 AST 18 ALT 26 Alkaline Phosphatase 73 B-Natriuretic Peptide Total Protein 6.6 Albumin 3.7 10/06/22 10/06/22 10/06/22 12:30 12:30 15:31 MCV MCH MCHC RDW Plt Count MPV Immature Gran % (Auto) Neut % (Auto) Lymph % (Auto) Kimball % (Auto) Eos % (Auto) Baso % (Auto) Lymph # (Auto) Kimball # (Auto) Eos # (Auto) Baso # (Auto) Abs Immat Gran (auto) Absolute Neuts (auto) Absolute Nucleated RBC Nucleated RBC % (auto) Neutrophils % (Manual) Band Neutrophils % Lymphocytes % (Manual) Atypical Lymphs % (Man) Monocytes % (Manual) Eosinophils % (Manual) Metamyelocytes % Myelocytes % Abs Neuts (Manual) Lymphocytes # (Manual) Atyp Lymphs # (Manual) Monocytes # (Manual) Eosinophils # (Manual) Metamyelocytes # Myelocytes # Platelet Estimate Plt Morphology Comment RBC Morphology Braxton Cells PT INR Anion Gap Estim Creat Clear Calc Estimated GFR Random Glucose Lactic Acid 2.3 H* Lactic Acid F/U @ 2Hr 1.3 Calcium Total Bilirubin Direct Bilirubin AST ALT Alkaline Phosphatase B-Natriuretic Peptide 43 Total Protein Albumin Imaging Radiologist's Impressions: Impressions Foot X-Ray 10/06/22 12:50 IMPRESSION: New erosions in the distal third metatarsal and base of the third proximal phalanx with possible additional erosions in the medial surfaces of the distal fourth metatarsal and proximal fourth phalanx. Findings are suspicious for osteomyelitis. Assessment and Plan (1) Osteomyelitis: Status: Acute (2) Wound of right foot: Status: Acute Plan 52-year-old male with history of testicular cancer stage III completed chemo 10/2020, insulin-dependent type 1 diabetes, paroxysmal atrial fibrillation anticoagulated with Eliquis, CKD stage 4 s/p left-sided renal transplant on immunosuppressive therapy, peripheral vascular disease, hyperlipidemia, history of osteomyelitis of the left foot, anemia of chronic disease, secondary hyperparathyroidism admitted for acute osteomyelitis of the right 3rd and 4th toes. #Acute osteomyelitis Right 3rd-4th toes -XRay showing new bony erosions 3rd proximal phalanx and medial surfaces of the distal 4th metatarsal and proximal 4th phalanx -No leukocytosis or SIRS criteria. No sepsis -IV cefepime and vanco -arterial duplex RLE -appreciate vascular surgery and Infectious Disease input -hold Eliquis in case of surgical procedure #PAD -dusky discoloration right 4th toe- arterial duplex ordered -appreciate vascular surgery input -hold Eliquis as above #acute stage I ulceration 4th right toe and chronic a stage II ulcer - related to uncontrolled type 2 diabetes and PAD -Follows with wound care center -Wound care consult # insulin-dependent type 1 diabetes with hyperglycemia -hemoglobin A1c pending -dose adjusted basal insulin -Humalog on sliding scale -diabetic diet -POC glucose # CKD stage 4 S/p left renal transplant -Continue mycophenolate and tacrolimus -appreciate renal input -renal function baseline # paroxysmal atrial fibrillation -hold Eliquis as above, resume as appropriate. Therapeutic Lovenox initiated -not on rate control medication # HLD -continue statin # secondary hyperparathyroidism -continue rayaldee # anemia of chronic disease -H/H baseline, above transfusion threshold DVT prophylaxis-therapeutic Lovenox Full code Patient requires inpatient stay of at least 2 midnights for management of acute osteomyelitis of the right foot requiring IV antibiotics and expert consultation with possible amputation Time Spent With Patient Time: Total time managing care of this patient today ____ minutes. Quality Stroke Does the patient have a stroke diagnosis?: No VTE Prior VTE?: No VTE Risk Level:: Medical - moderate - high VTE Device Contraindication: Treatment Not Indicated VTE Drug Contraindication: N/A - Med Ordered
[2022-10-06 20:04] VITALS: BP 141/69; PULSE 64; RESP 17; TEMP 36.3; O2SAT 96
[2022-10-06 20:07] LABS: Hematocrit 42.8 % (42.0-52.0); Hemoglobin 13.4 g/dl (14.0-18.0); Mean Corpuscular HGB Conc 31.3 g/dl (31.0-36.0); Mean Corpuscular Hemoglobin 27.7 pg (27.0-33.0); Mean Corpuscular Volume 88.6 fL (80.0-98.0); Mean Platelet Volume 11.6 fL (9.4-12.4); Platelet Count 265 X10*3/uL (160-400); Red Blood Count 4.83 X10*6/uL (4.60-5.80); Red Cell Distribution Width 15.5 % (11.0-16.0); White Blood Count 9.4 X10*3/uL (4.8-10.8)
[2022-10-06 20:13] LABS: INTERNATIONAL NORM RATIO 1.6 (0.9-1.1); Prothrombin Time 18.3 SEC (10.0-13.1)
[2022-10-06 20:16] LABS: Partial Thromboplastin Time 37.3 SEC (26.0-36.4)
--- NOTE | 2022-10-06 20:20 | MHC.EDTECH ---
pt used his own bloodsugar machine which gave a reading of 270
[2022-10-06] MEDS: Tacrolimus 1 MG CAPSULE 4 MG PO (20:26)
[2022-10-06] MEDS: 0.9 % Sodium Chloride 2,721.54 ML 2721.54 ML IV (20:33)
[2022-10-06] MEDS: Mirtazapine 7.5 MG TABLET PO (20:44)
[2022-10-06] MEDS: Enoxaparin Sodium 100 MG/ML SYRINGE 90 MG SUBCUT (20:44)
[2022-10-06] MEDS: Atorvastatin Calcium 40 MG TABLET PO (20:44)
[2022-10-06] MEDS: cefEPime HCl 1 GM in 0.9 % Sodium Chloride 50 ML IV (20:45)
[2022-10-06] MEDS: Insulin Glargine,Hum.rec.anlog 100 UNIT/ML 10 ML VIAL 17 UNIT SUBCUT (20:45)
[2022-10-06] MEDS: Insulin Lispro 100 UNIT/ML 3 ML VIAL SUBCUT (20:55)
[2022-10-06] MEDS: vancomycin/NS 2,000 MG/500 ML PLAST..BAG 250 MG IV (21:38)
--- NOTE | 2022-10-06 22:26 | PC.NURSE ---
pt assessed, tolerating iv fluids, denies any pain at this time
[2022-10-06] MEDS: 0.9 % Sodium Chloride Flush 3 ML SYRINGE IVFLUSH (23:49)
[2022-10-07] VITALS: BP 152/86; PULSE 80; RESP 20; TEMP 37.3; O2SAT 99
[2022-10-07 03:03] VITALS: BP 128/68; PULSE 60; RESP 20; TEMP 36.4; O2SAT 97
[2022-10-07 06:15] LABS: Hematocrit 35.7 % (42.0-52.0); Hemoglobin 11.3 g/dl (14.0-18.0); Mean Corpuscular HGB Conc 31.7 g/dl (31.0-36.0); Mean Corpuscular Hemoglobin 27.8 pg (27.0-33.0); Mean Corpuscular Volume 87.7 fL (80.0-98.0); Mean Platelet Volume 11.3 fL (9.4-12.4); Platelet Count 295 X10*3/uL (160-400); Red Blood Count 4.07 X10*6/uL (4.60-5.80); Red Cell Distribution Width 15.4 % (11.0-16.0); White Blood Count 7.6 X10*3/uL (4.8-10.8)
[2022-10-07 06:24] LABS: Anion Gap 13 (12-20); Blood Urea Nitrogen 15 mg/dL (9-16); Calcium 8.1 mg/dL (8.4-10.2); Carbon Dioxide 23 mmol/L (22-29); Chloride 110 mmol/L (96-108); Creatinine Clr Calc Pharmacy 49.8; Estimated Glomerular Filt Rate 36; Glucose Random 207 mg/dL (60-115); Potassium 3.8 mmol/L (3.3-5.1); Sodium 142 mmol/L (135-145)
[2022-10-07 07:22] LABS: Band Neutrophils Percent 4 % (3-5); Lymphocytes Absolute Manual 1.7 X10*3/uL (1.2-4.9); Lymphocytes Percent Manual 22 % (20-40); Metamyelocytes Absolute 0.3 X10*3/uL; Metamyelocytes Percent 4 %; Monocytes Absolute Manual 0.5 X10*3/uL (0.1-1.2); Monocytes Percent Manual 6 % (2-11); Myelocytes Absolute 0.1 X10*/uL; Myelocytes Percent 1 %; Neutrophils Absolute Manual 5.1 X10*3/uL (2.0-8.3); Neutrophils Percent Manual 63 % (45-73)
[2022-10-07 07:23] LABS: Large Platelet PRESENT; Platelet Estimate NORMAL (NORMAL); Platelet Morphology Comment NOTED
[2022-10-07 07:24] LABS: Burr Cells 2+ (3-5) /OIF; RBC Morphology NOTED
[2022-10-07 07:44] VITALS: BP 121/72; PULSE 72; RESP 18; TEMP 36.2; O2SAT 97
[2022-10-07] MEDS: Tacrolimus 1 MG CAPSULE 4 MG PO ×2 (08:23→20:35)
[2022-10-07] MEDS: Insulin Lispro 100 UNIT/ML 3 ML VIAL SUBCUT ×4 (08:23→22:24)
[2022-10-07] MEDS: Enoxaparin Sodium 100 MG/ML SYRINGE 90 MG SUBCUT (08:23)
[2022-10-07] MEDS: cefEPime HCl 1 GM in 0.9 % Sodium Chloride 50 ML IV ×2 (08:23→20:45)
--- NOTE | 2022-10-07 10:30 | MHC.CM.PN ---
CM met with Patient at bedside and addressed IMM with him, providing him with the original and a copy has been placed on the chart. Patient lives in a house with his /HCP and his 15 year old Daughter and he attends the [facility]. Per MD, in [place]OUN[place], Patient is likely to need LT IVABT and referrals have been made to [facility] and [facility]. CM has initiated and will follow for dc planning. Patient is a Renal transplant and has no HD. Patient has received Covid/Pfizer vax x4 and his PCP is Dr. Geovanni Pink.
[2022-10-07 11:12] VITALS: BP 110/64; PULSE 66; RESP 17; TEMP 36.7; O2SAT 98
--- NOTE | 2022-10-07 12:10 | P.CONNP_ITS ---
History of Present Illness Reason for Consult Consult date: 10/07/22 Chief Complaint Chief complaint: osteomyelitis, RIGHT LEG,PAD History of Present Illness Narrative: 52-year-old male with renal transplant presented to the ER from wound care clinic where he has been following for chronic right foot ulcer.? He reports he has had a wound on the plantar surface of the right foot for several months for which she has been following with wound care but about 3-4 days ago developed dusky discoloration with wound of the right 4th toe which is new.? He was started on cefuroxime and doxycycline by the Wound Clinic but symptoms continued to worsen and he was advised to present to the ED for further evaluation.? He denies any fevers, chills. X-ray of the right foot showing new bony erosions in the distal 3rd metatarsal and base of the 3rd proximal phalanx with possible additional erosions in the medial surfaces of the distal 4th metatarsal and proximal 4th phalanx concerning for osteomyelitis.? While in the ED, treated with IV Zosyn and was admitted for further management. Nephrology has been consulted to assist in his clinical care during his current hospital stay Review of Systems Review of Systems Yes all other systems are reviewed and are negative PMFSH Past Medical History Medical History 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 chronic kidney disease Bleeding internal hemorrhoids Carpal tunnel syndrome on left Chronic right shoulder pain Diabetes mellitus with diabetic nephropathy, with long-term current use of insulin Diabetes mellitus with foot ulcer End-stage renal disease on hemodialysis Hyperlipidemia Mixed dyslipidemia Multinodular goiter Osteomyelitis of left foot Paresthesia and pain of extremity Peripheral vascular disease Refused pneumococcal vaccination Secondary hyperparathyroidism of renal origin 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 Sister No problems noted. Sister No problems noted. Surgical History Surgical History History of kidney transplant Social History Social History Household Members: Spouse, Family and Children Housing: House Do you presently have visiting nurse or other home services: No Alcohol intake: never Patient Tobacco Use Status: Never used Tobacco Smoked in Last 30 Days: No e-Cigarette/Vaping Use: Never Used Use of substances other than those prescribed or required for medical reasons: No Currently Displaying Signs/Symptoms of Drug Intoxication Withdrawal: No Any prior treatment program specific to substance use: No Have you been hit, kicked, punched, or otherwise hurt by someone within the past year? If so, by whom?: No Do you feel safe in your current relationship?: No Is there a partner from a previous relationship who is making you feel unsafe now?: No Are you made to feel afraid or neglected: No Spiritual Healthcare Practices: N/A Judaism Healthcare Practices: Rastafari Cultural Healthcare Practices: N/A Advance Directives: No Advance Directives Information Provided: No Do you have thoughts of harming others: None Do you have a plan to hurt others: No Plan Recently lost weight without trying: No Eating poorly because of decreased appetite: No Nutrition Risks: No Nutritional Risk Poor oral hygiene: No service: No Current occupational status: disabled Current occupation: disability - kidney transplant. Left side dominant Meds Allergies Allergy/AdvReac Type Severity Reaction Status Date / Time No Known Allergies Allergy Verified 10/06/22 12:11 Active Medications: Current Medications Acetaminophen (Acetaminophen 325 Mg Tablet) 650 mg PO Q6H PRN PRN Reason: Pain, Mild (Pain Scale 1-3) Atorvastatin Calcium (Atorvastatin Calcium 40 Mg Tablet) 40 mg PO BEDTIME [facility] Last Admin: 10/06/22 20:44 Dose: 40 mg Docusate Sodium (Docusate Sodium 100 Mg Capsule) 100 mg PO DAILY PRN PRN Reason: Constipation Enoxaparin Sodium (Enoxaparin Sodium 100 Mg/Ml Syringe) 90 mg 1 mg/kg (90 mg) SUBCUT Q12H [facility] Last Admin: 10/07/22 08:23 Dose: 90 mg Glucose (Glucose Gel 15 Gm Gel..Gram.) 15 gm PO Q15M PRN; Protocol PRN Reason: per Hypoglycemia Standing Ord. Dextrose (D10) 250 mls @ 750 mls/hr IV Q15M PRN; Protocol PRN Reason: per Hypoglycemia Standing Ord. Cefepime HCl 1 gm/ Sodium (Chloride) 50 mls @ 100 mls/hr IV Q12H [facility] Last Infusion: 10/07/22 09:05 Dose: Infused Vancomycin HCl 1,000 mg/ (Sodium Chloride) 270 mls @ 270 mls/hr IV Q24H [facility] Insulin Glargine (Insulin Glargine,Hum.Rec.Anlog 100 Unit/Ml 10 Ml Vial) 17 unit SUBCUT BEDTIME [facility] Last Admin: 10/06/22 20:45 Dose: 17 unit Insulin Human Lispro (Insulin Lispro 100 Unit/Ml 3 Ml Vial) 0 unit SUBCUT QIDACHS [facility]; Protocol Last Admin: 10/07/22 11:57 Dose: 4 unit Mirtazapine (Mirtazapine 7.5 Mg Tablet) 7.5 mg PO BEDTIME [facility] Last Admin: 10/06/22 20:44 Dose: 7.5 mg Non-Formulary Medication (Calcifediol [Rayaldee]) 30 mcg PO BEDTIME [facility] Last Admin: 10/06/22 20:26 Dose: 30 mcg Patient Own ( Mycophenolate Sodium [address]) 540 mg PO BID [facility] Last Admin: 10/07/22 08:22 Dose: 540 mg Ondansetron HCl (Ondansetron Hcl 4 Mg/2 Ml Vial) 4 mg IVPUSH Q8H PRN PRN Reason: Nausea and Vomiting Pharmacy Consult (Consult Rx Vancomycin Dosing) 1 each MISCELLANE DAILY PRN PRN Reason: Consult order Pharmacy Consult (Consult Rx Perform Med Rec) 1 each MISCELLANE ONCE PRN PRN Reason: Consult order Pharmacy Consult (Consult Rx Vancomycin Dosing) 1 each MISCELLANE DAILY PRN PRN Reason: Consult order Sodium Chloride (0.9 % Sodium Chloride Flush 3 Ml Syringe) 3 ml IVFLUSH QSHIFT [facility] Last Admin: 10/07/22 07:32 Dose: Not Given Tacrolimus (Tacrolimus 1 Mg Capsule) 4 mg PO BID [facility] Last Admin: 10/07/22 08:23 Dose: 4 mg Home Medications Medication Instructions Recorded Confirmed Last Taken Type calcifediol 30 mcg capsule,24 30 mcg PO BEDTIME 03/14/20 10/06/22 10/05/22 History hr,extended release (Rayaldee) mycophenolate sodium 180 mg 540 mg PO BID 05/18/20 10/06/22 10/06/22 History tablet,delayed release pen needle, diabetic 31 gauge x #50 ea 06/05/20 12/13/20 Unknown History /16 apixaban 5 mg tablet 5 mg PO BID 10/12/20 10/06/22 10/06/22 History lancets 28 gauge (FreeStyle #100 ea 06/26/21 Unknown History Lancets) insulin aspart U-100 100 unit/mL 8 unit subcut TIDAC 10/26/21 10/06/22 10/06/22 History (3 mL) subcutaneous pen (Novolog FlexPen U-100 Insulin aspart) insulin glargine 100 unit/mL (3 21 unit subcut BEDTIME 10/26/21 10/06/22 10/05/22 History mL) subcutaneous pen (Lantus Solostar U-100 Insulin) mirtazapine 7.5 mg tablet 7.5 mg PO BEDTIME 09/26/22 10/06/22 10/05/22 History cefuroxime axetil 250 mg tablet 250 mg PO DAILY 10/06/22 10/06/22 Unknown History doxycycline monohydrate 100 mg 100 mg PO BID 10/06/22 10/06/22 Unknown History capsule rosuvastatin 10 mg tablet 10 mg PO BEDTIME 10/06/22 10/06/22 10/05/22 History tacrolimus 1 mg capsule, 4 mg PO BID 10/06/22 10/06/22 10/06/22 History immediate-release Physical Exam Vital Signs: Last Vital Signs Temp 98.0 F 10/07/22 11:12 Pulse 66 10/07/22 11:12 Resp 17 10/07/22 11:12 BP 110/64 10/07/22 11:12 Pulse Ox 98 10/07/22 11:12 O2 Del Method Room Air 10/07/22 11:12 BMI result Body Mass Index 29.5 Const General: no acute distress Orientation/consciousness: patient oriented x3 Eyes EOM: EOMs intact bilaterally Neck Neck: Yes supple Resp Auscultation: diminished lung sounds Cardio Rate: regular rate GI Other: No tenderness over renal transplant Palpation (GI): Soft to palpation Neuro General: patient oriented x3 and moves all extremities Results Lab Results 10/07/22 05:43 10/07/22 05:43 Lab results: Chemistry 10/06/22 10/07/22 12:30 05:43 Sodium 141 142 Potassium 4.0 3.8 Carbon Dioxide 26 23 BUN 17 H 15 Creatinine 2.29 H 1.95 H Calcium 9.4 8.1 L D Hematology 10/06/22 10/06/22 10/07/22 12:30 19:56 05:43 WBC 10.5 9.4 7.6 Hgb 13.0 L 13.4 L 11.3 L Plt Count 338 D 265 295 Assessment and Plan (1) Acute kidney injury superimposed on CKD: Status: Acute Time Spent With Patient Time: GIA on CKD in a renal transplant due to tubular injury Serum creatinine better; No NSAID's/ACEI/ARB Good hydration. C/W current dose of tacrolimus C/W rest of current supportive management Labs AM; Shall closely follow up Procedures Date of Service Date of Service: 10/07/22
--- NOTE | 2022-10-07 12:39 | P.PNIM_ITS ---
Subjective Subjective Date of Service: 10/07/22 Interval History: Seen and evaluated this morning feels comfortable overall Denies any fever or chills No overnight events reported Review of Systems Review of Systems: Yes all other systems are reviewed and are negative Physical Exam Vital Signs: Vital Signs: Last Vital Signs Temp 98.0 F 10/07/22 11:12 Pulse 66 10/07/22 11:12 Resp 17 10/07/22 11:12 BP 110/64 10/07/22 11:12 Pulse Ox 98 10/07/22 11:12 O2 Del Method Room Air 10/07/22 11:12 BMI result Body Mass Index 29.5 Const: Other: Constitutional : Awake, interactive, not in distress Neck : Normal inspection, Supple Cardiovascular : RRR, no JVP, no lower extremity edema Respiratory : good bilateral air entry, no crackles, wheezes or rhonchi Gastrointestinal: soft, lax, Normal bowel sounds, Non tender Skin : Warm, Dry, Rt foot moran ulcer at 4th metatarsal base covered with dressing with mild edema and no significant tenderness Neurological : Alert & oriented x3, No focal deficit Objective Data Active Medications Acetaminophen (Acetaminophen 325 Mg Tablet) 650 mg PO Q6H PRN PRN Reason: Pain, Mild (Pain Scale 1-3) Atorvastatin Calcium (Atorvastatin Calcium 40 Mg Tablet) 40 mg PO BEDTIME [facility] Last Admin: 10/06/22 20:44 Dose: 40 mg Documented By: MARA Docusate Sodium (Docusate Sodium 100 Mg Capsule) 100 mg PO DAILY PRN PRN Reason: Constipation Enoxaparin Sodium (Enoxaparin Sodium 100 Mg/Ml Syringe) 90 mg 1 mg/kg (90 mg) SUBCUT Q12H [facility] Last Admin: 10/07/22 08:23 Dose: 90 mg Documented By: FARIHA Glucose (Glucose Gel 15 Gm Gel..Gram.) 15 gm PO Q15M PRN; Protocol PRN Reason: per Hypoglycemia Standing Ord. Dextrose (D10) 250 mls @ 750 mls/hr IV Q15M PRN; Protocol PRN Reason: per Hypoglycemia Standing Ord. Cefepime HCl 1 gm/ Sodium (Chloride) 50 mls @ 100 mls/hr IV Q12H [facility] Last Infusion: 10/07/22 09:05 Dose: 0 mls/hr Documented By: HO.N-SOFFA Vancomycin HCl 1,000 mg/ (Sodium Chloride) 270 mls @ 270 mls/hr IV Q24H [facility] Insulin Glargine (Insulin Glargine,Hum.Rec.Anlog 100 Unit/Ml 10 Ml Vial) 17 unit SUBCUT BEDTIME [facility] Last Admin: 10/06/22 20:45 Dose: 17 unit Documented By: MARA Insulin Human Lispro (Insulin Lispro 100 Unit/Ml 3 Ml Vial) 0 unit SUBCUT QIDACHS [facility]; Protocol Last Admin: 10/07/22 11:57 Dose: 4 unit Documented By: FARIHA Mirtazapine (Mirtazapine 7.5 Mg Tablet) 7.5 mg PO BEDTIME [facility] Last Admin: 10/06/22 20:44 Dose: 7.5 mg Documented By: MARA Non-Formulary Medication (Calcifediol [Rayaldee]) 30 mcg PO BEDTIME [facility] Last Admin: 10/06/22 20:26 Dose: 30 mcg Documented By: MARA Patient Own ( Mycophenolate Sodium [address]) 540 mg PO BID [facility] Last Admin: 10/07/22 08:22 Dose: 540 mg Documented By: FARIHA Ondansetron HCl (Ondansetron Hcl 4 Mg/2 Ml Vial) 4 mg IVPUSH Q8H PRN PRN Reason: Nausea and Vomiting Pharmacy Consult (Consult Rx Vancomycin Dosing) 1 each MISCELLANE DAILY PRN PRN Reason: Consult order Pharmacy Consult (Consult Rx Perform Med Rec) 1 each MISCELLANE ONCE PRN PRN Reason: Consult order Pharmacy Consult (Consult Rx Vancomycin Dosing) 1 each MISCELLANE DAILY PRN PRN Reason: Consult order Sodium Chloride (0.9 % Sodium Chloride Flush 3 Ml Syringe) 3 ml IVFLUSH QSHIFT [facility] Last Admin: 10/07/22 07:32 Dose: Not Given Documented By: FARIHA Non-Admin Reason: See Note Tacrolimus (Tacrolimus 1 Mg Capsule) 4 mg PO BID [facility] Last Admin: 10/07/22 08:23 Dose: 4 mg Documented By: FARIHA Labs 10/07/22 05:43 10/07/22 05:43 Labs: Laboratory Results - last 24 hr 10/06/22 10/06/22 10/06/22 12:30 12:30 12:30 MCV 88.6 MCH 28.4 MCHC 32.1 RDW 15.4 Plt Count 338 D MPV 11.6 Immature Gran % (Auto) Cancelled Neut % (Auto) Cancelled Lymph % (Auto) Cancelled [place] % (Auto) Cancelled Eos % (Auto) Cancelled Baso % (Auto) Cancelled Lymph # (Auto) Cancelled [place] # (Auto) Cancelled Eos # (Auto) Cancelled Baso # (Auto) Cancelled Abs Immat Gran (auto) Cancelled Absolute Neuts (auto) Cancelled Absolute Nucleated RBC 0.000 Nucleated RBC % (auto) 0.0 Neutrophils % (Manual) 62 Band Neutrophils % 2 L Lymphocytes % (Manual) 15 L Atypical Lymphs % (Man) 1 Monocytes % (Manual) 13 H Eosinophils % (Manual) 2 Metamyelocytes % 2 Myelocytes % 3 Abs Neuts (Manual) 6.7 Lymphocytes # (Manual) 1.6 Atyp Lymphs # (Manual) 0.1 Monocytes # (Manual) 1.4 H Eosinophils # (Manual) 0.2 Metamyelocytes # 0.2 Myelocytes # 0.3 Platelet Estimate NORMAL Large Platelets Plt Morphology Comment NORMAL RBC Morphology NOTED [place] Cells 1+ (0-2) PT 21.8 H INR 1.9 H APTT Anion Gap 15 Estim Creat Clear Calc 42.4 Estimated GFR 30 Random Glucose 212 H Lactic Acid Lactic Acid F/U @ 2Hr Calcium 9.4 Total Bilirubin 0.4 Direct Bilirubin 0.2 AST 18 ALT 26 Alkaline Phosphatase 73 B-Natriuretic Peptide Total Protein 6.6 Albumin 3.7 10/06/22 10/06/22 10/06/22 12:30 12:30 15:31 MCV MCH MCHC RDW Plt Count MPV Immature Gran % (Auto) Neut % (Auto) Lymph % (Auto) [place] % (Auto) Eos % (Auto) Baso % (Auto) Lymph # (Auto) [place] # (Auto) Eos # (Auto) Baso # (Auto) Abs Immat Gran (auto) Absolute Neuts (auto) Absolute Nucleated RBC Nucleated RBC % (auto) Neutrophils % (Manual) Band Neutrophils % Lymphocytes % (Manual) Atypical Lymphs % (Man) Monocytes % (Manual) Eosinophils % (Manual) Metamyelocytes % Myelocytes % Abs Neuts (Manual) Lymphocytes # (Manual) Atyp Lymphs # (Manual) Monocytes # (Manual) Eosinophils # (Manual) Metamyelocytes # Myelocytes # Platelet Estimate Large Platelets Plt Morphology Comment RBC Morphology [place] Cells PT INR APTT Anion Gap Estim Creat Clear Calc Estimated GFR Random Glucose Lactic Acid 2.3 H* Lactic Acid F/U @ 2Hr 1.3 Calcium Total Bilirubin Direct Bilirubin AST ALT Alkaline Phosphatase B-Natriuretic Peptide 43 Total Protein Albumin 10/06/22 10/06/22 10/07/22 19:56 19:56 05:43 MCV 88.6 87.7 MCH 27.7 27.8 MCHC 31.3 31.7 RDW 15.5 15.4 Plt Count 265 295 MPV 11.6 11.3 Immature Gran % (Auto) Cancelled Neut % (Auto) Cancelled Lymph % (Auto) Cancelled [place] % (Auto) Cancelled Eos % (Auto) Cancelled Baso % (Auto) Cancelled Lymph # (Auto) Cancelled [place] # (Auto) Cancelled Eos # (Auto) Cancelled Baso # (Auto) Cancelled Abs Immat Gran (auto) Cancelled Absolute Neuts (auto) Cancelled Absolute Nucleated RBC 0.000 0.000 Nucleated RBC % (auto) 0.0 0.0 Neutrophils % (Manual) 63 Band Neutrophils % 4 Lymphocytes % (Manual) 22 Atypical Lymphs % (Man) Monocytes % (Manual) 6 Eosinophils % (Manual) Metamyelocytes % 4 Myelocytes % 1 Abs Neuts (Manual) 5.1 Lymphocytes # (Manual) 1.7 Atyp Lymphs # (Manual) Monocytes # (Manual) 0.5 Eosinophils # (Manual) Metamyelocytes # 0.3 Myelocytes # 0.1 Platelet Estimate NORMAL Large Platelets PRESENT Plt Morphology Comment NOTED RBC Morphology NOTED [place] Cells 2+ (3-5) PT 18.3 H INR 1.6 H APTT 37.3 H Anion Gap Estim Creat Clear Calc Estimated GFR Random Glucose Lactic Acid Lactic Acid F/U @ 2Hr Calcium Total Bilirubin Direct Bilirubin AST ALT Alkaline Phosphatase B-Natriuretic Peptide Total Protein Albumin 10/07/22 05:43 MCV MCH MCHC RDW Plt Count MPV Immature Gran % (Auto) Neut % (Auto) Lymph % (Auto) [place] % (Auto) Eos % (Auto) Baso % (Auto) Lymph # (Auto) [place] # (Auto) Eos # (Auto) Baso # (Auto) Abs Immat Gran (auto) Absolute Neuts (auto) Absolute Nucleated RBC Nucleated RBC % (auto) Neutrophils % (Manual) Band Neutrophils % Lymphocytes % (Manual) Atypical Lymphs % (Man) Monocytes % (Manual) Eosinophils % (Manual) Metamyelocytes % Myelocytes % Abs Neuts (Manual) Lymphocytes # (Manual) Atyp Lymphs # (Manual) Monocytes # (Manual) Eosinophils # (Manual) Metamyelocytes # Myelocytes # Platelet Estimate Large Platelets Plt Morphology Comment RBC Morphology [place] Cells PT INR APTT Anion Gap 13 Estim Creat Clear Calc 49.8 Estimated GFR 36 Random Glucose 207 H Lactic Acid Lactic Acid F/U @ 2Hr Calcium 8.1 L D Total Bilirubin Direct Bilirubin AST ALT Alkaline Phosphatase B-Natriuretic Peptide Total Protein Albumin Assessment and Plan (1) Osteomyelitis: Status: Acute (2) Wound of right foot: Status: Acute Plan 52-year-old male with history of testicular cancer stage III completed chemo 10/2020, insulin-dependent type 1 diabetes, paroxysmal atrial fibrillation anticoagulated with Eliquis, CKD stage 4 s/p left-sided renal transplant on immunosuppressive therapy, peripheral vascular disease, hyperlipidemia, history of osteomyelitis of the left foot, anemia of chronic disease, secondary hyperparathyroidism admitted for acute osteomyelitis of the right 3rd and 4th toes. #Acute osteomyelitis Right 3rd-4th toes XRay showing new bony erosions 3rd proximal phalanx and medial surfaces of the distal 4th metatarsal and proximal 4th phalanx Continue IV cefepime and vanco arterial duplex RLE, ?Atherosclerotic disease of the SFA without hemodynamically significant stenosis. Occluded posterior tibial artery. vascular surgery to do Angiogram tomorrow pending Infectious Disease hold Eliquis in case of surgical procedure, on Lovenox full dose #PAD dusky discoloration right 4th toe arterial duplex ordered vascular surgery following #acute stage I ulceration 4th right toe and chronic a stage II ulcer related to uncontrolled type 2 diabetes and PAD Follows with wound care center # insulin-dependent type 1 diabetes with hyperglycemia hemoglobin A1c pending dose adjusted basal insulin Humalog on sliding scale diabetic diet POC glucose # CKD stage 4 S/p left renal transplant Continue mycophenolate and tacrolimus appreciate renal input renal function baseline # paroxysmal atrial fibrillation hold Eliquis as above, resume as appropriate. Therapeutic Lovenox initiated not on rate control medication # HLD continue statin # secondary hyperparathyroidism continue rayaldee # anemia of chronic disease H/H baseline, above transfusion threshold DVT prophylaxis- Lovenox Full code Patient requires inpatient stay overnight for management of acute osteomyelitis of the right foot requiring IV antibiotics and expert consultation with possible surgical intervention Time Spent With Patient Time: Total time managing care of this patient today ____ minutes. Quality Stroke Does the patient have a stroke diagnosis?: No VTE Prior VTE?: No VTE Risk Level:: Medical - moderate - high VTE Device Contraindication: Treatment Not Indicated VTE Drug Contraindication: N/A - Med Ordered
[2022-10-07 13:12] LABS: Estimated Average Glucose 206 mg/dL; Hemoglobin A1c % 8.8 %
--- NOTE | 2022-10-07 14:04 | PM.CNGS ---
History of Present Illness Consult details Consult date: 10/07/22 Reason for consult: wound care Narrative: Very complex 52-year-old gentleman presents for a full evaluation regarding nonhealing ulcer of the right 4th toe. He actually had a plantar foot ulceration that had been progressing for some time. He has been [facility] by [facility] for the last several months. Of note he has had prior left lower extremity intervention by a interventional radiologist. Unfortunately there was no follow-up for this. He now presents for vascular evaluation regarding his right lower extremity. Of note he has been a diabetic at a young age since his 30s. Review of Systems Review of Systems: Yes all other systems are reviewed and are negative Constitutional: Constitutional: Reports no additional constitutional complaints ENT: Reports Normal hearing present Cardiovascular: Cardiovascular: Denies chest pain, Denies chest pain at rest, Denies chest pain with activity and Denies pedal edema Respiratory: Respiratory: Denies cough Gastrointestinal: Gastrointestinal: Denies abdominal pain Musculoskeletal: Musculoskeletal: Denies abnormal gait, Denies muscle cramps and Denies radiating pain into limb Integumentary/Breasts: Skin/Breast: Denies skin ulcer and Denies wounds Neurologic: Reports Normal hearing present and Denies abnormal gait Psychiatric: Psychiatric: Reports no additional psychiatric complaints PMFSH Past Medical History Medical History 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 chronic kidney disease Bleeding internal hemorrhoids Carpal tunnel syndrome on left Chronic right shoulder pain Diabetes mellitus with diabetic nephropathy, with long-term current use of insulin Diabetes mellitus with foot ulcer End-stage renal disease on hemodialysis Hyperlipidemia Mixed dyslipidemia Multinodular goiter Osteomyelitis of left foot Paresthesia and pain of extremity Peripheral vascular disease Refused pneumococcal vaccination Secondary hyperparathyroidism of renal origin 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 Sister No problems noted. Sister No problems noted. Surgical History Surgical History History of kidney transplant Social History Social History Household Members: Spouse, Family and Children Housing: House Do you presently have visiting nurse or other home services: No Alcohol intake: never Patient Tobacco Use Status: Never used Tobacco Smoked in Last 30 Days: No e-Cigarette/Vaping Use: Never Used Use of substances other than those prescribed or required for medical reasons: No Currently Displaying Signs/Symptoms of Drug Intoxication Withdrawal: No Any prior treatment program specific to substance use: No Have you been hit, kicked, punched, or otherwise hurt by someone within the past year? If so, by whom?: No Do you feel safe in your current relationship?: No Is there a partner from a previous relationship who is making you feel unsafe now?: No Are you made to feel afraid or neglected: No Spiritual Healthcare Practices: N/A Christian Healthcare Practices: Orthodoxy Cultural Healthcare Practices: N/A Advance Directives: No Advance Directives Information Provided: No Do you have thoughts of harming others: None Do you have a plan to hurt others: No Plan Recently lost weight without trying: No Eating poorly because of decreased appetite: No Nutrition Risks: No Nutritional Risk Poor oral hygiene: No service: No Current occupational status: disabled Current occupation: disability - kidney transplant. Left side dominant Meds Allergies Allergy/AdvReac Type Severity Reaction Status Date / Time No Known Allergies Allergy Verified 10/06/22 12:11 Active Medications: Current Medications Acetaminophen (Acetaminophen 325 Mg Tablet) 650 mg PO Q6H PRN PRN Reason: Pain, Mild (Pain Scale 1-3) Atorvastatin Calcium (Atorvastatin Calcium 40 Mg Tablet) 40 mg PO BEDTIME [facility] Last Admin: 10/06/22 20:44 Dose: 40 mg Docusate Sodium (Docusate Sodium 100 Mg Capsule) 100 mg PO DAILY PRN PRN Reason: Constipation Enoxaparin Sodium (Enoxaparin Sodium 100 Mg/Ml Syringe) 90 mg 1 mg/kg (90 mg) SUBCUT Q12H [facility] Last Admin: 10/07/22 08:23 Dose: 90 mg Glucose (Glucose Gel 15 Gm Gel..Gram.) 15 gm PO Q15M PRN; Protocol PRN Reason: per Hypoglycemia Standing Ord. Dextrose (D10) 250 mls @ 750 mls/hr IV Q15M PRN; Protocol PRN Reason: per Hypoglycemia Standing Ord. Cefepime HCl 1 gm/ Sodium (Chloride) 50 mls @ 100 mls/hr IV Q12H [facility] Last Infusion: 10/07/22 09:05 Dose: Infused Vancomycin HCl 1,000 mg/ (Sodium Chloride) 270 mls @ 270 mls/hr IV Q24H [facility] Insulin Glargine (Insulin Glargine,Hum.Rec.Anlog 100 Unit/Ml 10 Ml Vial) 17 unit SUBCUT BEDTIME [facility] Last Admin: 10/06/22 20:45 Dose: 17 unit Insulin Human Lispro (Insulin Lispro 100 Unit/Ml 3 Ml Vial) 0 unit SUBCUT QIDACHS [facility]; Protocol Last Admin: 10/07/22 11:57 Dose: 4 unit Mirtazapine (Mirtazapine 7.5 Mg Tablet) 7.5 mg PO BEDTIME [facility] Last Admin: 10/06/22 20:44 Dose: 7.5 mg Non-Formulary Medication (Calcifediol [Rayaldee]) 30 mcg PO BEDTIME [facility] Last Admin: 10/06/22 20:26 Dose: 30 mcg Patient Own ( Mycophenolate Sodium [address]) 540 mg PO BID [facility] Last Admin: 10/07/22 08:22 Dose: 540 mg Ondansetron HCl (Ondansetron Hcl 4 Mg/2 Ml Vial) 4 mg IVPUSH Q8H PRN PRN Reason: Nausea and Vomiting Pharmacy Consult (Consult Rx Vancomycin Dosing) 1 each MISCELLANE DAILY PRN PRN Reason: Consult order Pharmacy Consult (Consult Rx Perform Med Rec) 1 each MISCELLANE ONCE PRN PRN Reason: Consult order Pharmacy Consult (Consult Rx Vancomycin Dosing) 1 each MISCELLANE DAILY PRN PRN Reason: Consult order Sodium Chloride (0.9 % Sodium Chloride Flush 3 Ml Syringe) 3 ml IVFLUSH QSHIFT [facility] Last Admin: 10/07/22 07:32 Dose: Not Given Tacrolimus (Tacrolimus 1 Mg Capsule) 4 mg PO BID [facility] Last Admin: 10/07/22 08:23 Dose: 4 mg Home Medications Medication Instructions Recorded Confirmed Last Taken Type calcifediol 30 mcg capsule,24 30 mcg PO BEDTIME 03/14/20 10/06/22 10/05/22 History hr,extended release (Rayaldee) mycophenolate sodium 180 mg 540 mg PO BID 05/18/20 10/06/22 10/06/22 History tablet,delayed release pen needle, diabetic 31 gauge x #50 ea 06/05/20 12/13/20 Unknown History 3/16 apixaban 5 mg tablet 5 mg PO BID 10/12/20 10/06/22 10/06/22 History lancets 28 gauge (FreeStyle #100 ea 06/26/21 Unknown History Lancets) insulin aspart U-100 100 unit/mL 8 unit subcut TIDAC 10/26/21 10/06/22 10/06/22 History (3 mL) subcutaneous pen (Novolog FlexPen U-100 Insulin aspart) insulin glargine 100 unit/mL (3 21 unit subcut BEDTIME 10/26/21 10/06/22 10/05/22 History mL) subcutaneous pen (Lantus Solostar U-100 Insulin) mirtazapine 7.5 mg tablet 7.5 mg PO BEDTIME 09/26/22 10/06/22 10/05/22 History cefuroxime axetil 250 mg tablet 250 mg PO DAILY 10/06/22 10/06/22 Unknown History doxycycline monohydrate 100 mg 100 mg PO BID 10/06/22 10/06/22 Unknown History capsule rosuvastatin 10 mg tablet 10 mg PO BEDTIME 10/06/22 10/06/22 10/05/22 History tacrolimus 1 mg capsule, 4 mg PO BID 10/06/22 10/06/22 10/06/22 History immediate-release Physical Exam Vital Signs: Vital Signs: Last Vital Signs Temp 98.0 F 10/07/22 11:12 Pulse 66 10/07/22 11:12 Resp 17 10/07/22 11:12 BP 110/64 10/07/22 11:12 Pulse Ox 98 10/07/22 11:12 O2 Del Method Room Air 10/07/22 11:12 BMI result Body Mass Index 29.5 Const: General: cooperative, healthy appearing and comfortable Orientation/consciousness: oriented to person, oriented to place and oriented to time HEENT: Head: Yes normal to inspection Neck: Neck: Yes normal visual inspection Carotids: no bruits Chest: Chest palpation & inspection: normal inspection of the chest Resp: Effort & Inspection: normal respiratory effort and able to speak in complete sentences Auscultation: clear to auscultation bilaterally, no crackles, no rales, no rhonchi and no wheezes Cardio: Other: Bilateral DP signal Rate: regular rate Rhythm: regular rhythm Heart sounds: S1 normal heart sound present and S2 normal heart sound present Bruits: no carotid bruits GI: Inspection: Yes normal to inspection Skin: Other: Necrotic right 4th toe, ulcer on plantar aspect Wounds: no wounds Hair: normal Neuro: General: oriented to person, oriented to place and oriented to time Cranial nerves: Yes CN's II-XII intact bilaterally and Yes Normal hearing present Cognition (Neuro): normal cognition Motor exam (neuro): 5/5 motor strength present throughout Extrem: Other: venous exam: No significant superficial varicosities or spider telangiectasias, minimal edema General: No clubbing, No cyanosis and No edema Psych: Appearance: grossly normal Mental Status: mental status grossly normal Speech and movement: Normal speech and movement present Results Labs 10/07/22 05:43 10/07/22 05:43 Labs: Abnormal lab results 10/06/22 10/06/22 10/06/22 Range/Units 12:30 19:56 19:56 RBC (4.60-5.80) X10*6/uL Hgb 13.4 L (14.0-18.0) g/dl Hct (42.0-52.0) % Band Neutrophils % 2 L (3-5) % Lymphocytes % (Manual) 15 L (20-40) % Monocytes % (Manual) 13 H (2-11) % Monocytes # (Manual) 1.4 H (0.1-1.2) X10*3/uL PT 18.3 H (10.0-13.1) SEC INR 1.6 H (0.9-1.1) APTT 37.3 H (26.0-36.4) SEC Chloride (96-108) mmol/L Creatinine (0.5-1.4) mg/dL Random Glucose (60-115) mg/dL Calcium (8.4-10.2) mg/dL 10/07/22 10/07/22 Range/Units 05:43 05:43 RBC 4.07 L (4.60-5.80) X10*6/uL Hgb 11.3 L (14.0-18.0) g/dl Hct 35.7 L (42.0-52.0) % Band Neutrophils % (3-5) % Lymphocytes % (Manual) (20-40) % Monocytes % (Manual) (2-11) % Monocytes # (Manual) (0.1-1.2) X10*3/uL PT (10.0-13.1) SEC INR (0.9-1.1) APTT (26.0-36.4) SEC Chloride 110 H (96-108) mmol/L Creatinine 1.95 H (0.5-1.4) mg/dL Random Glucose 207 H (60-115) mg/dL Calcium 8.1 L D (8.4-10.2) mg/dL Short CBC 10/06/22 10/07/22 Range/Units 19:56 05:43 WBC 9.4 7.6 (4.8-10.8) X10*3/uL Hgb 13.4 L 11.3 L (14.0-18.0) g/dl Hct 42.8 35.7 L (42.0-52.0) % Plt Count 265 295 (160-400) X10*3/uL [facility] 10/07/22 05:43 Sodium 142 Potassium 3.8 Chloride 110 H Carbon Dioxide 23 BUN 15 Creatinine 1.95 H Calcium 8.1 L D All other labs normal. Assessment and Plan (1) PAD (peripheral artery disease): Status: Acute Plan Patient notes nonhealing right foot ulcer. I have discussed the pathophysiology of peripheral vascular disease with the patient. I have also discussed risk factor modification. I have reviewed the patient's arterial testing which reveals below knee disease on the right leg. the patient would benefit from a right leg endovascular peripheral angiogram with possible angioplasty, stent, and/or atherectomy. This has been discussed in detail with the patient along with risks, benefits, and complications. This includes but is not limited to bleeding, infection, heart attack, need for emergent surgical repair, limb ischemia, blood vessel damage, bleeding, puncture, kidney injury, bruising, allergic reaction, and skin reaction. The patient demonstrates a clear understanding. We will schedule for the next appropriate time. Thank you for allowing us to assist in this patient's care. Time Spent With Patient Time: Total time managing care of this patient today ____ minutes. Procedures Date of Service Date of Service: 10/07/22
[2022-10-07 14:18] VITALS: BP 146/74; PULSE 65; RESP 19; TEMP 36.8; O2SAT 61
--- NOTE | 2022-10-07 14:49 | P.CNID_ITS ---
History of Present Illness Data of Consult Service Date: 10/07/22 Requesting physician: Rodrigo Iraheta Primary Care Provider: Geovanni Pink MD HPI Reason for consult: diabetic foot infection He presents with purple right fourth toe. He also has right wound plantar aspect with drainage for last three to four months at least. He has PAD and diabetes. He has XR shows right fourth and fifth metatarsal erosive changes. He also has CKD stage 4 and is post transplant on immunosuppressives. [facility] and has deep culture on 09/29 serratia marcescans and Group B strep. I had seen him 10/2021 for left great toe infection. He received six weeks Daptomycin. Review of Systems Review of Systems: Yes all other systems are reviewed and are negative PMFSH Past Medical History Medical History 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 chronic kidney disease Bleeding internal hemorrhoids Carpal tunnel syndrome on left Chronic right shoulder pain Diabetes mellitus with diabetic nephropathy, with long-term current use of insulin Diabetes mellitus with foot ulcer End-stage renal disease on hemodialysis Hyperlipidemia Mixed dyslipidemia Multinodular goiter Osteomyelitis of left foot Paresthesia and pain of extremity Peripheral vascular disease Refused pneumococcal vaccination Secondary hyperparathyroidism of renal origin 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 Sister No problems noted. Sister No problems noted. Family history: reviewed and not pertinent Surgical History Surgical History History of kidney transplant Social History Social History Household Members: Spouse, Family and Children Housing: House Do you presently have visiting nurse or other home services: No Alcohol intake: never Patient Tobacco Use Status: Never used Tobacco Smoked in Last 30 Days: No e-Cigarette/Vaping Use: Never Used Use of substances other than those prescribed or required for medical reasons: No Currently Displaying Signs/Symptoms of Drug Intoxication Withdrawal: No Any prior treatment program specific to substance use: No Have you been hit, kicked, punched, or otherwise hurt by someone within the past year? If so, by whom?: No Do you feel safe in your current relationship?: No Is there a partner from a previous relationship who is making you feel unsafe now?: No Are you made to feel afraid or neglected: No Spiritual Healthcare Practices: N/A Taoism Healthcare Practices: Taoist Cultural Healthcare Practices: N/A Advance Directives: No Advance Directives Information Provided: No Do you have thoughts of harming others: None Do you have a plan to hurt others: No Plan Recently lost weight without trying: No Eating poorly because of decreased appetite: No Nutrition Risks: No Nutritional Risk Poor oral hygiene: No service: No Current occupational status: disabled Current occupation: disability - kidney transplant. Left side dominant Meds Allergies Allergy/AdvReac Type Severity Reaction Status Date / Time No Known Allergies Allergy Verified 10/06/22 12:11 Active Medications: Current Medications Acetaminophen (Acetaminophen 325 Mg Tablet) 650 mg PO Q6H PRN PRN Reason: Pain, Mild (Pain Scale 1-3) Atorvastatin Calcium (Atorvastatin Calcium 40 Mg Tablet) 40 mg PO BEDTIME [facility] Last Admin: 10/06/22 20:44 Dose: 40 mg Docusate Sodium (Docusate Sodium 100 Mg Capsule) 100 mg PO DAILY PRN PRN Reason: Constipation Enoxaparin Sodium (Enoxaparin Sodium 100 Mg/Ml Syringe) 90 mg 1 mg/kg (90 mg) SUBCUT Q12H [facility] Last Admin: 10/07/22 08:23 Dose: 90 mg Glucose (Glucose Gel 15 Gm Gel..Gram.) 15 gm PO Q15M PRN; Protocol PRN Reason: per Hypoglycemia Standing Ord. Dextrose (D10) 250 mls @ 750 mls/hr IV Q15M PRN; Protocol PRN Reason: per Hypoglycemia Standing Ord. Cefepime HCl 1 gm/ Sodium (Chloride) 50 mls @ 100 mls/hr IV Q12H [facility] Last Infusion: 10/07/22 09:05 Dose: Infused Vancomycin HCl 1,000 mg/ (Sodium Chloride) 270 mls @ 270 mls/hr IV Q24H [facility] Sodium Chloride (Ns) 1,000 mls @ 100 mls/hr IVCONT .Q10H [facility] Insulin Glargine (Insulin Glargine,Hum.Rec.Anlog 100 Unit/Ml 10 Ml Vial) 17 unit SUBCUT BEDTIME [facility] Last Admin: 10/06/22 20:45 Dose: 17 unit Insulin Human Lispro (Insulin Lispro 100 Unit/Ml 3 Ml Vial) 0 unit SUBCUT QIDACHS [facility]; Protocol Last Admin: 10/07/22 11:57 Dose: 4 unit Mirtazapine (Mirtazapine 7.5 Mg Tablet) 7.5 mg PO BEDTIME [facility] Last Admin: 10/06/22 20:44 Dose: 7.5 mg Non-Formulary Medication (Calcifediol [Rayaldee]) 30 mcg PO BEDTIME [facility] Last Admin: 10/06/22 20:26 Dose: 30 mcg Patient Own ( Mycophenolate Sodium [address]) 540 mg PO BID [facility] Last Admin: 10/07/22 08:22 Dose: 540 mg Ondansetron HCl (Ondansetron Hcl 4 Mg/2 Ml Vial) 4 mg IVPUSH Q8H PRN PRN Reason: Nausea and Vomiting Pharmacy Consult (Consult Rx Vancomycin Dosing) 1 each MISCELLANE DAILY PRN PRN Reason: Consult order Pharmacy Consult (Consult Rx Perform Med Rec) 1 each MISCELLANE ONCE PRN PRN Reason: Consult order Pharmacy Consult (Consult Rx Vancomycin Dosing) 1 each MISCELLANE DAILY PRN PRN Reason: Consult order Sodium Chloride (0.9 % Sodium Chloride Flush 3 Ml Syringe) 3 ml IVFLUSH QSHIFT [facility] Last Admin: 10/07/22 14:24 Dose: Not Given Tacrolimus (Tacrolimus 1 Mg Capsule) 4 mg PO BID [facility] Last Admin: 10/07/22 08:23 Dose: 4 mg Home Medications Medication Instructions Recorded Confirmed Last Taken Type calcifediol 30 mcg capsule,24 30 mcg PO BEDTIME 03/14/20 10/06/22 10/05/22 History hr,extended release (Rayaldee) mycophenolate sodium 180 mg 540 mg PO BID 05/18/20 10/06/22 10/06/22 History tablet,delayed release pen needle, diabetic 31 gauge x #50 ea 06/05/20 12/13/20 Unknown History 16 apixaban 5 mg tablet 5 mg PO BID 10/12/20 10/06/22 10/06/22 History lancets 28 gauge (FreeStyle #100 ea 06/26/21 Unknown History Lancets) insulin aspart U-100 100 unit/mL 8 unit subcut TIDAC 10/26/21 10/06/22 10/06/22 History (3 mL) subcutaneous pen (Novolog FlexPen U-100 Insulin aspart) insulin glargine 100 unit/mL (3 21 unit subcut BEDTIME 10/26/21 10/06/22 10/05/22 History mL) subcutaneous pen (Lantus Solostar U-100 Insulin) mirtazapine 7.5 mg tablet 7.5 mg PO BEDTIME 09/26/22 10/06/22 10/05/22 History cefuroxime axetil 250 mg tablet 250 mg PO DAILY 10/06/22 10/06/22 Unknown History doxycycline monohydrate 100 mg 100 mg PO BID 10/06/22 10/06/22 Unknown History capsule rosuvastatin 10 mg tablet 10 mg PO BEDTIME 10/06/22 10/06/22 10/05/22 History tacrolimus 1 mg capsule, 4 mg PO BID 10/06/22 10/06/22 10/06/22 History immediate-release Physical Exam Vital Signs: Vital Signs: Last Vital Signs Temp 98.0 F 10/07/22 11:12 Pulse 66 10/07/22 11:12 Resp 17 10/07/22 11:12 BP 110/64 10/07/22 11:12 Pulse Ox 98 10/07/22 11:12 O2 Del Method Room Air 10/07/22 11:12 BMI result Body Mass Index 29.5 Const: General: cooperative HEENT: Head: Yes normal to inspection Face and sinus: Yes normal facial exam Mouth: Normal oral and palatal mucosa present Teeth and gingiva: dentition normal Eyes: General: appearance normal, both eyes and all related structures Pupils: Equal, round and reactive pupils present Resp: Effort & Inspection: normal respiratory effort Cardio: Rate: regular rate Rhythm: regular rhythm GI: Palpation (GI): Soft to palpation and nontender : General: Yes no CVA tenderness Back/Spine/Pelvis: Back: no CVA tenderness Skin: General skin exam: no rashes or lesions noted Neuro: General: moves all extremities Cranial nerves: Yes Equal, round and reactive pupils present Extrem: Other: right fourth toe purple open area dorsum per picture Psych: Appearance: grossly normal Results Labs 10/07/22 05:43 10/07/22 05:43 Labs: Short CBC 10/06/22 10/07/22 Range/Units 19:56 05:43 WBC 9.4 7.6 (4.8-10.8) X10*3/uL Hgb 13.4 L 11.3 L (14.0-18.0) g/dl Hct 42.8 35.7 L (42.0-52.0) % Plt Count 265 295 (160-400) X10*3/uL BMP 10/07/22 05:43 Sodium 142 Potassium 3.8 Chloride 110 H Carbon Dioxide 23 BUN 15 Creatinine 1.95 H Calcium 8.1 L D Microbiology Microbiology Results: Microbiology 10/06/22 12:30 Blood - Venous Blood Culture - Preliminary No growth after 24 hours. Assessment and Plan (1) Osteomyelitis: Status: Acute (2) Wound of right foot: Status: Acute He has likely OM of right foot with serratia and Group B strep He has PAD and ischemia possible as well Plan Vascular eval and even if toe removed would need antibiotics for infection m etatarsals. Use Ertapenem cover Group B strep and Serratia. Can switch to Merem now and stop Vancomycin Time Spent With Patient Time: Total time managing care of this patient today ____ minutes.
[2022-10-07 19:05] VITALS: BP 138/73; PULSE 70; RESP 20; TEMP 36.7; O2SAT 97
[2022-10-07 19:46] LABS: Glucose, Whole Blood 217 mg/dL (60-115)
[2022-10-07 19:59] LABS: INTERNATIONAL NORM RATIO 1.5 (0.9-1.1); Prothrombin Time 17.6 SEC (10.0-13.1)
[2022-10-07] MEDS: Mirtazapine 7.5 MG TABLET PO (20:34)
[2022-10-07] MEDS: Atorvastatin Calcium 40 MG TABLET PO (20:34)
[2022-10-07] MEDS: 0.9 % Sodium Chloride Flush 3 ML SYRINGE IVFLUSH (20:41)
[2022-10-07] MEDS: Insulin Glargine,Hum.rec.anlog 100 UNIT/ML 10 ML VIAL 17 UNIT SUBCUT (22:20)
[2022-10-07 22:22] LABS: Glucose, Whole Blood 241 mg/dL (60-115)
[2022-10-08] VITALS (11 sets, daily range): BP systolic 131–152; BP diastolic 70–80; PULSE 53–64; RESP 16–18; TEMP 36.3–37.3; O2SAT 95–98
[2022-10-08] MEDS: 0.9 % Sodium Chloride 1,000 ML 100 ML IVCONT (05:14)
[2022-10-08 07:35] LABS: Glucose, Whole Blood 146 mg/dL (60-115)
--- NOTE | 2022-10-08 09:07 | P.OP_ITS ---
Operative Note Operative Note Date of Service: 10/08/22 Narrative: Angiogram report from [facility] Preoperative diagnosis: Atherosclerosis of right lower extremity with nonhealing ulcer Postoperative diagnosis: Same Procedure: 1. Ultrasound-guided left common femoral access 2. Aortogram with right lower extremity runoff Surgeon:Bart Marrero M.D., FACS, RPVI Clinical Education Manager:None Anesthesia: Local with moderate conscious sedation. Total intraservice moderate sedation time was 25 minutes. I monitored the patient's level of consciousness and physiologic status continuously throughout the procedure. Specimens:none Drains:none Estimated blood loss: Less than 10 ml Implant: None Indications: Complex 52-year-old diabetic gentleman with renal transplant presents with nonhealing right foot 4th toe ulcer. On noninvasive testing he was there was concern of below knee disease. He now presents for endovascular intervention. The patient has signed the informed consent after reviewing risks, complications, benefits, and alternatives previously discussed with the patient. The patient was given the opportunity to ask any additional questions or voice any concerns. All questions were answered to the patient's satisfaction. Procedure in detail: Patient was brought to the angiography suite prior to which a time-out was called for patient identification and site verification. Bilateral groins were prepped and draped in the standard surgical fashion. Under ultrasound guidance left common femoral was punctured with micro puncture needle and wire. Subsequently a precision 4 [place] sheath was then placed. Bentson wire was advanced to the level of the aorta. 4 [place] Flush catheter was brought up and parked at the level of the renal arteries. Aortogram was then undertaken. Catheter was brought down to the level of the iliac bifurcation. Iliacs were subsequently imaged. Catheter was then brought in up and over to the right side SFA. Runoff study was then undertaken. No intervention was indicated. Catheter wire sheath were removed. Direct pressure was held for 10 minutes. Patient tolerated the procedure well. Returned to recovery with stable vitals. Interpretation of films: 1. Ultrasound demonstrates appropriate femoral puncture. Image of which was saved. 2. Aortogram demonstrates appropriate caliber aorta. Minimal disease. Appropriate take-off of the renals. 3. Iliac images demonstrate no significant disease. Surgical clips noted near the right iliac. 4. Right Leg Common femoral artery: No significant disease Profundus Femoris: No significant disease Superficial femoral artery: No significant disease Popliteal artery (p1,p2,p3): Normal caliber no significant disease Anterior tibial artery: High takeoff behind the knee but supplies all the way down to the foot Peroneal artery: Dominant runoff all the way down to the foot Posterior tibial artery: Occludes but reconstitutes near the ankle Dorsalis pedis/plantar arch: Present diminutive nearly complete Conclusion: 1. Successful diagnostic angiogram no intervention indicated 2. Anticoagulation status: No change This note is constructed using voice recognition software. While every effort has been made to ensure accuracy, operations executive errors may have been included. Thank you for allowing me to participate in the care of your patient. Yours sincerely, Bart Marrero MD, FACS, R.P.V.I.
--- NOTE | 2022-10-08 12:15 | PM.PNNEP ---
Subjective Subjective Date of Service: 10/08/22 Interval history: Events noted. All recent data reviewed Physical Exam Vital Signs: Vital Signs: Last Vital Signs Temp 97.4 F 10/08/22 12:08 Pulse 64 10/08/22 12:08 Resp 18 10/08/22 12:08 BP 150/80 H 10/08/22 12:08 Pulse Ox 98 10/08/22 12:08 O2 Del Method Room Air 10/08/22 12:08 O2 Flow Rate 99 10/07/22 14:18 BMI result Body Mass Index 29.5 Const: General: no acute distress Orientation/consciousness: patient oriented x3 Eyes: EOM: EOMs intact bilaterally Neck: Neck: Yes supple Resp: Auscultation: diminished lung sounds Cardio: Rate: regular rate GI: Palpation (GI): Soft to palpation Neuro: General: patient oriented x3 and moves all extremities Objective Data Labs 10/07/22 05:43 10/07/22 05:43 Labs: Laboratory Results - last 24 hr 10/07/22 10/07/22 10/07/22 05:43 19:41 19:42 PT 17.6 H INR 1.5 H POC Glucose 217 H Estimat Average Glucose 206 Hemoglobin A1c % 8.8 10/07/22 10/08/22 22:18 07:30 PT INR POC Glucose 241 H 146 H Estimat Average Glucose Hemoglobin A1c % Microbiology Microbiology Results: Microbiology 10/06/22 15:31 Blood - Venous Blood Culture - Preliminary No growth after 24 hours. 10/06/22 12:30 Blood - Venous Blood Culture - Preliminary No growth after 24 hours. Procedures Date of Service Date of Service: 10/08/22 Assessment & Plan Assessment and plan (1) Acute kidney injury superimposed on CKD: Status: Acute Assessment and Plan: GIA on CKD in a renal transplant due to tubular injury Serum creatinine better; No labs yet today; No NSAID's/ACEI/ARB Good hydration. C/W current dose of tacrolimus C/W rest of current supportive management Labs AM; Shall closely follow up Progress Note: Quality Stroke Does the patient have a stroke diagnosis?: No
[2022-10-08] MEDS: 0.9 % Sodium Chloride Flush 3 ML SYRINGE IVFLUSH ×2 (13:01→20:46)
[2022-10-08] MEDS: cefEPime HCl 1 GM in 0.9 % Sodium Chloride 50 ML IV (13:01)
[2022-10-08] MEDS: Enoxaparin Sodium 100 MG/ML SYRINGE 90 MG SUBCUT ×2 (13:02→20:50)
[2022-10-08] MEDS: Tacrolimus 1 MG CAPSULE 4 MG PO ×2 (13:03→20:42)
[2022-10-08 13:07] LABS: Hematocrit 37.1 % (42.0-52.0); Hemoglobin 11.7 g/dl (14.0-18.0); Mean Corpuscular HGB Conc 31.5 g/dl (31.0-36.0); Mean Corpuscular Hemoglobin 28.2 pg (27.0-33.0); Mean Corpuscular Volume 89.4 fL (80.0-98.0); Mean Platelet Volume 10.7 fL (9.4-12.4); Platelet Count 299 X10*3/uL (160-400); Red Blood Count 4.15 X10*6/uL (4.60-5.80); Red Cell Distribution Width 15.5 % (11.0-16.0); White Blood Count 7.3 X10*3/uL (4.8-10.8)
[2022-10-08 13:31] LABS: Anion Gap 13 (12-20); Blood Urea Nitrogen 10 mg/dL (9-16); Calcium 8.2 mg/dL (8.4-10.2); Carbon Dioxide 26 mmol/L (22-29); Chloride 107 mmol/L (96-108); Creatinine Clr Calc Pharmacy 54.9; Estimated Glomerular Filt Rate 41; Glucose Random 188 mg/dL (60-115); Potassium 4.2 mmol/L (3.3-5.1); Sodium 142 mmol/L (135-145)
--- NOTE | 2022-10-08 14:29 | HO.PM.IMPN ---
Subjective Subjective Date of Service: 10/08/22 Interval History: no complaints Physical Exam Vital Signs: Vital Signs: Last Vital Signs Temp 97.4 F 10/08/22 12:08 Pulse 64 10/08/22 12:08 Resp 18 10/08/22 12:08 BP 150/80 H 10/08/22 12:08 Pulse Ox 98 10/08/22 12:08 O2 Del Method Room Air 10/08/22 12:08 O2 Flow Rate 99 10/07/22 14:18 BMI result Body Mass Index 29.5 Const: General: no acute distress Orientation/consciousness: patient oriented x3 Eyes: EOM: EOMs intact bilaterally Neck: Neck: Yes supple Resp: Auscultation: diminished lung sounds Cardio: Rate: regular rate GI: Palpation (GI): Soft to palpation Neuro: General: patient oriented x3 and moves all extremities Objective Data Active Medications Acetaminophen (Acetaminophen 325 Mg Tablet) 650 mg PO Q6H PRN PRN Reason: Pain, Mild (Pain Scale 1-3) Atorvastatin Calcium (Atorvastatin Calcium 40 Mg Tablet) 40 mg PO BEDTIME [facility] Last Admin: 10/07/22 20:34 Dose: 40 mg Documented By: EWA Docusate Sodium (Docusate Sodium 100 Mg Capsule) 100 mg PO DAILY PRN PRN Reason: Constipation Enoxaparin Sodium (Enoxaparin Sodium 100 Mg/Ml Syringe) 90 mg 1 mg/kg (90 mg) SUBCUT Q12H [facility] Last Admin: 10/08/22 13:02 Dose: 90 mg Documented By: JANA Glucose (Glucose Gel 15 Gm Gel..Gram.) 15 gm PO Q15M PRN; Protocol PRN Reason: per Hypoglycemia Standing Ord. Dextrose (D10) 250 mls @ 750 mls/hr IV Q15M PRN; Protocol PRN Reason: per Hypoglycemia Standing Ord. Cefepime HCl 1 gm/ Sodium (Chloride) 50 mls @ 100 mls/hr IV Q12H [facility] Last Infusion: 10/08/22 13:53 Dose: 0 mls/hr Documented By: JANA Sodium Chloride (Ns) 1,000 mls @ 100 mls/hr IVCONT .Q10H [facility] Last Infusion: 10/08/22 13:04 Dose: 100 mls/hr Documented By: JANA Insulin Glargine (Insulin Glargine,Hum.Rec.Anlog 100 Unit/Ml 10 Ml Vial) 17 unit SUBCUT BEDTIME [facility] Last Admin: 10/07/22 22:20 Dose: 17 unit Documented By: EWA Insulin Human Lispro (Insulin Lispro 100 Unit/Ml 3 Ml Vial) 0 unit SUBCUT QIDACHS [facility]; Protocol Last Admin: 10/08/22 12:46 Dose: Not Given Documented By: JANA Non-Admin Reason: No Insulin Coverage Mirtazapine (Mirtazapine 7.5 Mg Tablet) 7.5 mg PO BEDTIME [facility] Last Admin: 10/07/22 20:34 Dose: 7.5 mg Documented By: EWA Morphine Sulfate (Morphine Sulfate 4 Mg/Ml Cartridge) 4 mg IVPUSH Q2H PRN; Protocol PRN Reason: Pain, Severe (Pain Scale 7-10) Non-Formulary Medication (Calcifediol [Rayaldee]) 30 mcg PO BEDTIME [facility] Last Admin: 10/07/22 22:26 Dose: 30 mcg Documented By: EWA Patient Own ( Mycophenolate Sodium [address]) 540 mg PO BID [facility] Last Admin: 10/08/22 13:03 Dose: 540 mg Documented By: JANA Comments: pt was in the OR Ondansetron HCl (Ondansetron Hcl 4 Mg/2 Ml Vial) 4 mg IVPUSH Q8H PRN PRN Reason: Nausea and Vomiting Oxycodone HCl (Oxycodone Hcl Immed Release 5 Mg Tablet) 5 mg PO Q4H PRN PRN Reason: Pain, Moderate (Pain Scale 4-6 Pharmacy Consult (Consult Rx Vancomycin Dosing) 1 each MISCELLANE DAILY PRN PRN Reason: Consult order Pharmacy Consult (Consult Rx Perform Med Rec) 1 each MISCELLANE ONCE PRN PRN Reason: Consult order Pharmacy Consult (Consult Rx Vancomycin Dosing) 1 each MISCELLANE DAILY PRN PRN Reason: Consult order Sodium Chloride (0.9 % Sodium Chloride Flush 3 Ml Syringe) 3 ml IVFLUSH QSHIFT [facility] Last Admin: 10/08/22 13:01 Dose: 3 ml Documented By: JANA Tacrolimus (Tacrolimus 1 Mg Capsule) 4 mg PO BID [facility] Last Admin: 10/08/22 13:03 Dose: 4 mg Documented By: JANA Comments: pt was in the OR Labs 10/08/22 13:01 10/08/22 13:01 Labs: Laboratory Results - last 24 hr 10/07/22 10/07/22 10/07/22 19:41 19:42 22:18 MCV MCH MCHC RDW Plt Count MPV Absolute Nucleated RBC Nucleated RBC % (auto) PT 17.6 H INR 1.5 H Anion Gap Estim Creat Clear Calc Estimated GFR POC Glucose 217 H 241 H Random Glucose Calcium 10/08/22 10/08/22 10/08/22 07:30 13:01 13:01 MCV 89.4 MCH 28.2 MCHC 31.5 RDW 15.5 Plt Count 299 MPV 10.7 Absolute Nucleated RBC 0.000 Nucleated RBC % (auto) 0.0 PT INR Anion Gap 13 Estim Creat Clear Calc 54.9 Estimated GFR 41 POC Glucose 146 H Random Glucose 188 H Calcium 8.2 L Microbiology Microbiology Results: Microbiology 10/06/22 15:31 Blood Culture - Preliminary Blood - Venous No growth after 24 hours. 10/06/22 12:30 Blood Culture - Preliminary Blood - Venous No growth after 24 hours. Assessment and Plan (1) Osteomyelitis: Status: Acute (2) Wound of right foot: Status: Acute Plan 52-year-old male with history of testicular cancer stage III completed chemo 10/2020, insulin-dependent type 1 diabetes, paroxysmal atrial fibrillation anticoagulated with Eliquis, CKD stage 4 s/p left-sided renal transplant on immunosuppressive therapy, peripheral vascular disease, hyperlipidemia, history of osteomyelitis of the left foot, anemia of chronic disease, secondary hyperparathyroidism admitted for acute osteomyelitis of the right 3rd and 4th toes. acute osteomyelitis Right 3rd-4th toes XRay showing new bony erosions 3rd proximal phalanx and medial surfaces of the distal 4th metatarsal and proximal 4th phalanx Continue IV cefepime and vanco arterial duplex RLE, ?Atherosclerotic disease of the SFA without hemodynamically significant stenosis. Occluded posterior tibial artery. s/p angio 10/08/22 - PVD with right posterior tibial artery occulusion but with reconstitution, no intervention hold Eliquis in case of surgical procedure, on Lovenox full dose acute stage I ulceration 4th right toe and chronic a stage II ulcer related to uncontrolled type 2 diabetes and PAD Follows with wound care center insulin-dependent type 1 diabetes with hyperglycemia hemoglobin A1c pending dose adjusted basal insulin Humalog on sliding scale diabetic diet POC glucose CKD stage 4 S/p left renal transplant Continue mycophenolate and tacrolimus appreciate renal input renal function baseline monitor closely post angio paroxysmal atrial fibrillation hold Eliquis as above, resume as appropriate. Therapeutic Lovenox initiated not on rate control medication HLD continue statin secondary hyperparathyroidism continue rayaldee anemia of chronic disease H/H baseline, above transfusion threshold DVT prophylaxis- Lovenox Full code reason for continued hospitalization:iv abx, close monitoring renal function post contrast Time Spent With Patient Time: Total time managing care of this patient today ____ minutes. Quality Stroke Does the patient have a stroke diagnosis?: No VTE Prior VTE?: No VTE Risk Level:: Medical - moderate - high VTE Device Contraindication: Treatment Not Indicated VTE Drug Contraindication: N/A - Med Ordered
[2022-10-08] MEDS: Atorvastatin Calcium 40 MG TABLET PO (20:42)
[2022-10-08] MEDS: Mirtazapine 7.5 MG TABLET PO (20:42)
[2022-10-08 20:44] LABS: Vancomycin Trough 6.1 mcg/mL (10.0-20.0)
[2022-10-08] MEDS: Mycophenolate Sodium 180 MG TABLET.DR 540 MG PO (20:48)
[2022-10-08] MEDS: Insulin Lispro 100 UNIT/ML 3 ML VIAL SUBCUT (20:49)
[2022-10-08] MEDS: Insulin Glargine,Hum.rec.anlog 100 UNIT/ML 10 ML VIAL 17 UNIT SUBCUT (20:49)
[2022-10-09] MEDS: 0.9 % Sodium Chloride 1,000 ML 100 ML IVCONT ×2 (03:47→14:20)
[2022-10-09 06:56] LABS: Hematocrit 38.3 % (42.0-52.0); Hemoglobin 12.2 g/dl (14.0-18.0); Mean Corpuscular HGB Conc 31.9 g/dl (31.0-36.0); Mean Corpuscular Hemoglobin 28.2 pg (27.0-33.0); Mean Corpuscular Volume 88.7 fL (80.0-98.0); Platelet Count 291 X10*3/uL (160-400); Red Blood Count 4.32 X10*6/uL (4.60-5.80); Red Cell Distribution Width 15.6 % (11.0-16.0); White Blood Count 7.2 X10*3/uL (4.8-10.8)
[2022-10-09 07:15] LABS: Anion Gap 12 (12-20); Blood Urea Nitrogen 11 mg/dL (9-16); Calcium 8.3 mg/dL (8.4-10.2); Carbon Dioxide 25 mmol/L (22-29); Chloride 108 mmol/L (96-108); Creatinine Clr Calc Pharmacy 62.7; Estimated Glomerular Filt Rate 48; Glucose Fasting 123 mg/dL (60-99); Sodium 141 mmol/L (135-145)
[2022-10-09 07:30] VITALS: BP 133/72; PULSE 64; RESP 18; TEMP 36.9; O2SAT 96
[2022-10-09] MEDS: Enoxaparin Sodium 100 MG/ML SYRINGE 90 MG SUBCUT ×2 (09:49→20:27)
[2022-10-09] MEDS: Mycophenolate Sodium 180 MG TABLET.DR 540 MG PO ×2 (09:49→20:26)
[2022-10-09] MEDS: 0.9 % Sodium Chloride Flush 3 ML SYRINGE IVFLUSH ×2 (09:50→16:16)
[2022-10-09] MEDS: Tacrolimus 1 MG CAPSULE 4 MG PO ×2 (09:58→20:28)
--- NOTE | 2022-10-09 10:23 | HO.PM.IMPN ---
Subjective Subjective Date of Service: 10/09/22 Interval History: no complaints Physical Exam Vital Signs: Vital Signs: Last Vital Signs Temp 98.4 F 10/09/22 07:30 Pulse 64 10/09/22 07:30 Resp 18 10/09/22 07:30 BP 133/72 10/09/22 07:30 Pulse Ox 96 10/09/22 07:30 O2 Del Method Room Air 10/09/22 07:30 O2 Flow Rate 99 10/07/22 14:18 BMI result Body Mass Index 29.5 Const: General: no acute distress Orientation/consciousness: patient oriented x3 Eyes: EOM: EOMs intact bilaterally Neck: Neck: Yes supple Resp: Auscultation: diminished lung sounds Cardio: Rate: regular rate GI: Palpation (GI): Soft to palpation Neuro: General: patient oriented x3 and moves all extremities Objective Data Active Medications Acetaminophen (Acetaminophen 325 Mg Tablet) 650 mg PO Q6H PRN PRN Reason: Pain, Mild (Pain Scale 1-3) Atorvastatin Calcium (Atorvastatin Calcium 40 Mg Tablet) 40 mg PO BEDTIME [facility] Last Admin: 10/08/22 20:42 Dose: 40 mg Documented By: EWA Docusate Sodium (Docusate Sodium 100 Mg Capsule) 100 mg PO DAILY PRN PRN Reason: Constipation Enoxaparin Sodium (Enoxaparin Sodium 100 Mg/Ml Syringe) 90 mg 1 mg/kg (90 mg) SUBCUT Q12H [facility] Last Admin: 10/09/22 09:49 Dose: 90 mg Documented By: SARA Glucose (Glucose Gel 15 Gm Gel..Gram.) 15 gm PO Q15M PRN; Protocol PRN Reason: per Hypoglycemia Standing Ord. Dextrose (D10) 250 mls @ 750 mls/hr IV Q15M PRN; Protocol PRN Reason: per Hypoglycemia Standing Ord. Sodium Chloride (Ns) 1,000 mls @ 100 mls/hr IVCONT .Q10H [facility] Last Admin: 10/09/22 03:47 Dose: 100 mls/hr Documented By: EWA Meropenem 500 mg/ Sodium (Chloride) 50 mls @ 100 mls/hr IV Q8H [facility] Last Infusion: 10/09/22 10:03 Dose: 0 mls/hr Documented By: SARA Insulin Glargine (Insulin Glargine,Hum.Rec.Anlog 100 Unit/Ml 10 Ml Vial) 17 unit SUBCUT BEDTIME [facility] Last Admin: 10/08/22 20:49 Dose: 17 unit Documented By: EWA Insulin Human Lispro (Insulin Lispro 100 Unit/Ml 3 Ml Vial) 0 unit SUBCUT QIDACHS [facility]; Protocol Last Admin: 10/09/22 09:39 Dose: Not Given Documented By: SARA Non-Admin Reason: No Insulin Coverage Mirtazapine (Mirtazapine 7.5 Mg Tablet) 7.5 mg PO BEDTIME [facility] Last Admin: 10/08/22 20:42 Dose: 7.5 mg Documented By: EWA Morphine Sulfate (Morphine Sulfate 4 Mg/Ml Cartridge) 4 mg IVPUSH Q2H PRN; Protocol PRN Reason: Pain, Severe (Pain Scale 7-10) Mycophenolate Sodium (Mycophenolate Sodium 180 Mg Tablet.Dr) 540 mg PO BID [facility] Last Admin: 10/09/22 09:49 Dose: 540 mg Documented By: SARA Non-Formulary Medication (Calcifediol [Rayaldee]) 30 mcg PO BEDTIME [facility] Last Admin: 10/08/22 20:45 Dose: 30 mcg Documented By: EWA Ondansetron HCl (Ondansetron Hcl 4 Mg/2 Ml Vial) 4 mg IVPUSH Q8H PRN PRN Reason: Nausea and Vomiting Oxycodone HCl (Oxycodone Hcl Immed Release 5 Mg Tablet) 5 mg PO Q4H PRN PRN Reason: Pain, Moderate (Pain Scale 4-6 Pharmacy Consult (Consult Rx Perform Med Rec) 1 each MISCELLANE ONCE PRN PRN Reason: Consult order Sodium Chloride (0.9 % Sodium Chloride Flush 3 Ml Syringe) 3 ml IVFLUSH QSHIFT [facility] Last Admin: 10/09/22 09:50 Dose: 3 ml Documented By: SARA Tacrolimus (Tacrolimus 1 Mg Capsule) 4 mg PO BID [facility] Last Admin: 10/09/22 09:58 Dose: 4 mg Documented By: SARA Labs 10/09/22 06:29 10/09/22 06:29 Labs: Laboratory Results - last 24 hr 10/08/22 10/08/22 10/08/22 13:01 13:01 20:08 MCV 89.4 MCH 28.2 MCHC 31.5 RDW 15.5 Plt Count 299 MPV 10.7 Absolute Nucleated RBC 0.000 Nucleated RBC % (auto) 0.0 Anion Gap 13 Estim Creat Clear Calc 54.9 Estimated GFR 41 Random Glucose 188 H Fasting Glucose Calcium 8.2 L Vancomycin Trough 6.1 L 10/09/22 10/09/22 06:29 06:29 MCV 88.7 MCH 28.2 MCHC 31.9 RDW 15.6 Plt Count 291 MPV 11.0 Absolute Nucleated RBC 0.000 Nucleated RBC % (auto) 0.0 Anion Gap 12 Estim Creat Clear Calc 62.7 Estimated GFR 48 Random Glucose Fasting Glucose 123 H Calcium 8.3 L Vancomycin Trough Microbiology Microbiology Results: Microbiology 10/06/22 15:31 Blood Culture - Preliminary Blood - Venous No growth after 48 hours. 10/06/22 12:30 Blood Culture - Preliminary Blood - Venous No growth after 48 hours. Assessment and Plan (1) Osteomyelitis: Status: Acute (2) Wound of right foot: Status: Acute Plan 52-year-old male with history of testicular cancer stage III completed chemo 10/2020, insulin-dependent type 1 diabetes, paroxysmal atrial fibrillation anticoagulated with Eliquis, CKD stage 4 s/p left-sided renal transplant on immunosuppressive therapy, peripheral vascular disease, hyperlipidemia, history of osteomyelitis of the left foot, anemia of chronic disease, secondary hyperparathyroidism admitted for acute osteomyelitis of the right 3rd and 4th toes. acute osteomyelitis Right 3rd-4th toes XRay showing new bony erosions 3rd proximal phalanx and medial surfaces of the distal 4th metatarsal and proximal 4th phalanx Continue IV cefepime and vanco arterial duplex RLE, ?Atherosclerotic disease of the SFA without hemodynamically significant stenosis. Occluded posterior tibial artery. s/p angio 10/08/22 - PVD with right posterior tibial artery occulusion but with reconstitution, no intervention hold Eliquis in case of surgical procedure, on Lovenox full dose ?eventual amp acute stage I ulceration 4th right toe and chronic a stage II ulcer related to uncontrolled type 2 diabetes and PAD Follows with wound care center insulin-dependent type 1 diabetes with hyperglycemia hemoglobin A1c pending dose adjusted basal insulin Humalog on sliding scale diabetic diet POC glucose CKD stage 4 S/p left renal transplant Continue mycophenolate and tacrolimus appreciate renal input renal function baseline monitor closely post angio paroxysmal atrial fibrillation hold Eliquis as above, resume as appropriate. Therapeutic Lovenox initiated not on rate control medication HLD continue statin secondary hyperparathyroidism continue rayaldee anemia of chronic disease H/H baseline, above transfusion threshold DVT prophylaxis- Lovenox Full code reason for continued hospitalization:iv abx, close monitoring renal function post contrast Time Spent With Patient Time: Total time managing care of this patient today ____ minutes. Quality Stroke Does the patient have a stroke diagnosis?: No VTE Prior VTE?: No VTE Risk Level:: Medical - moderate - high VTE Device Contraindication: Treatment Not Indicated VTE Drug Contraindication: N/A - Med Ordered
--- NOTE | 2022-10-09 10:43 | PM.PNNEP ---
Subjective Subjective Date of Service: 10/09/22 Interval history: Denies any new complaints; All recent data reviewed Physical Exam Vital Signs: Vital Signs: Last Vital Signs Temp 98.4 F 10/09/22 07:30 Pulse 64 10/09/22 07:30 Resp 18 10/09/22 07:30 BP 133/72 10/09/22 07:30 Pulse Ox 96 10/09/22 07:30 O2 Del Method Room Air 10/09/22 07:30 O2 Flow Rate 99 10/07/22 14:18 BMI result Body Mass Index 29.5 Const: General: comfortable Orientation/consciousness: patient oriented x3 Eyes: EOM: EOMs intact bilaterally Neck: Neck: Yes supple Resp: Auscultation: diminished lung sounds Cardio: Rate: regular rate GI: Palpation (GI): Soft to palpation Skin: General skin exam: no rashes or lesions noted Neuro: General: patient oriented x3 and moves all extremities Objective Data Labs 10/09/22 06:29 10/09/22 06:29 Labs: Laboratory Results - last 24 hr 10/08/22 10/08/22 10/08/22 13:01 13:01 20:08 WBC 7.3 RBC 4.15 L Hgb 11.7 L Hct 37.1 L MCV 89.4 MCH 28.2 MCHC 31.5 RDW 15.5 Plt Count 299 MPV 10.7 Absolute Nucleated RBC 0.000 Nucleated RBC % (auto) 0.0 Sodium 142 Potassium 4.2 Chloride 107 Carbon Dioxide 26 Anion Gap 13 BUN 10 Creatinine 1.77 H Estim Creat Clear Calc 54.9 Estimated GFR 41 Random Glucose 188 H Fasting Glucose Calcium 8.2 L Vancomycin Trough 6.1 L 10/09/22 10/09/22 06:29 06:29 WBC 7.2 RBC 4.32 L Hgb 12.2 L Hct 38.3 L MCV 88.7 MCH 28.2 MCHC 31.9 RDW 15.6 Plt Count 291 MPV 11.0 Absolute Nucleated RBC 0.000 Nucleated RBC % (auto) 0.0 Sodium 141 Potassium 4.0 Chloride 108 Carbon Dioxide 25 Anion Gap 12 BUN 11 Creatinine 1.55 H Estim Creat Clear Calc 62.7 Estimated GFR 48 Random Glucose Fasting Glucose 123 H Calcium 8.3 L Vancomycin Trough Microbiology Microbiology Results: Microbiology 10/06/22 15:31 Blood - Venous Blood Culture - Preliminary No growth after 48 hours. 10/06/22 12:30 Blood - Venous Blood Culture - Preliminary No growth after 48 hours. Procedures Date of Service Date of Service: 10/09/22 Assessment & Plan Assessment and plan (1) Acute kidney injury superimposed on CKD: Status: Acute Assessment and Plan: GIA on CKD in a renal transplant due to tubular injury Serum creatinine better & close to baseline now No NSAID's/ACEI/ARB Good hydration. C/W current dose of tacrolimus C/W rest of current supportive management Labs AM; Shall closely follow up Progress Note: Quality Stroke Does the patient have a stroke diagnosis?: No
--- NOTE | 2022-10-09 14:01 | HO.VASCPN ---
Subjective Subjective Date of Service: 10/09/22 Patient reports: no new complaints and feels better Interval history: Pleasant 52-year-old gentleman postop day 1 status post diagnostic angiogram. Appears to be doing relatively well. No interval issues since angiogram. Has nonhealing right great 4th toe ulcer. Now for routine follow-up. Physical Exam Vital Signs: Vital Signs: Last Vital Signs Temp 98.4 F 10/09/22 07:30 Pulse 64 10/09/22 07:30 Resp 18 10/09/22 07:30 BP 133/72 10/09/22 07:30 Pulse Ox 96 10/09/22 07:30 O2 Del Method Room Air 10/09/22 07:30 O2 Flow Rate 99 10/07/22 14:18 BMI result Body Mass Index 29.5 Const: General: cooperative, healthy appearing and comfortable Orientation/consciousness: oriented to person, oriented to place and oriented to time HEENT: Head: Yes normal to inspection Neck: Neck: Yes normal visual inspection Carotids: no bruits Chest: Chest palpation & inspection: normal inspection of the chest Resp: Effort & Inspection: normal respiratory effort and able to speak in complete sentences Auscultation: clear to auscultation bilaterally, no crackles, no rales, no rhonchi and no wheezes Cardio: Rate: regular rate Rhythm: regular rhythm Heart sounds: S1 normal heart sound present and S2 normal heart sound present Bruits: no carotid bruits Peripheral pulses: Peripheral pulses 2+ throughout GI: Inspection: Yes normal to inspection Skin: Other: Right 4th toe ulcer Wounds: no wounds Hair: normal Neuro: General: oriented to person, oriented to place and oriented to time Cranial nerves: Yes CN's II-XII intact bilaterally and Yes Normal hearing present Cognition (Neuro): normal cognition Motor exam (neuro): 5/5 motor strength present throughout Extrem: Other: venous exam: No significant superficial varicosities or spider telangiectasias, minimal edema General: No clubbing, No cyanosis and No edema Psych: Appearance: grossly normal Mental Status: mental status grossly normal Speech and movement: Normal speech and movement present Progress Note: A&P Assessment and plan (1) Wound of right foot: Status: Acute Assessment and Plan: In short patient has nonhealing right 4th toe ulcer. Arterial supply appears to be within normal limits. This appears to be more diabetic in origin. Will reassess the wound tomorrow. Should it be nonhealing will plan for amputation on Thursday. Thank you for allowing us to assist in his care. If there are any questions or concerns please do not hesitate to contact us. Time Spent With Patient Time: Total time managing care of this patient today ____ minutes. Procedures Date of Service Date of Service: 10/09/22 Quality Stroke Does the patient have a stroke diagnosis?: No VTE Prior VTE?: No VTE Risk Level:: Medical - moderate - high VTE Device Contraindication: Treatment Not Indicated VTE Drug Contraindication: N/A - Med Ordered
[2022-10-09 15:10] VITALS: BP 155/76; PULSE 65; RESP 20; TEMP 37.2; O2SAT 98
[2022-10-09 19:50] VITALS: BP 123/70; PULSE 73; RESP 18; TEMP 37.1; O2SAT 98
[2022-10-09] MEDS: Mirtazapine 7.5 MG TABLET PO (20:26)
[2022-10-09] MEDS: Atorvastatin Calcium 40 MG TABLET PO (20:27)
[2022-10-09] MEDS: Insulin Lispro 100 UNIT/ML 3 ML VIAL SUBCUT (20:28)
[2022-10-09] MEDS: Insulin Glargine,Hum.rec.anlog 100 UNIT/ML 10 ML VIAL 17 UNIT SUBCUT (20:29)
[2022-10-10 04:00] VITALS: BP 141/80; PULSE 71; RESP 18; TEMP 36.7; O2SAT 96
[2022-10-10 05:12] LABS: Hematocrit 38.8 % (42.0-52.0); Hemoglobin 12.3 g/dl (14.0-18.0); Mean Corpuscular HGB Conc 31.7 g/dl (31.0-36.0); Mean Corpuscular Hemoglobin 28.3 pg (27.0-33.0); Mean Corpuscular Volume 89.2 fL (80.0-98.0); Platelet Count 279 X10*3/uL (160-400); Red Blood Count 4.35 X10*6/uL (4.60-5.80); Red Cell Distribution Width 15.5 % (11.0-16.0); White Blood Count 7.3 X10*3/uL (4.8-10.8)
[2022-10-10 05:29] LABS: Anion Gap 10 (12-20); Blood Urea Nitrogen 12 mg/dL (9-16); Calcium 8.3 mg/dL (8.4-10.2); Carbon Dioxide 26 mmol/L (22-29); Chloride 108 mmol/L (96-108); Creatinine Clr Calc Pharmacy 60.4; Estimated Glomerular Filt Rate 45; Glucose Fasting 121 mg/dL (60-99); Potassium 3.8 mmol/L (3.3-5.1); Sodium 140 mmol/L (135-145)
[2022-10-10] MEDS: 0.9 % Sodium Chloride 1,000 ML 100 ML IVCONT (05:43)
[2022-10-10 08:00] VITALS: BP 118/76; PULSE 78; RESP 20; TEMP 36.3; O2SAT 98
[2022-10-10] MEDS: Enoxaparin Sodium 100 MG/ML SYRINGE 90 MG SUBCUT ×2 (08:54→20:46)
[2022-10-10] MEDS: Mycophenolate Sodium 180 MG TABLET.DR 540 MG PO ×2 (08:55→20:45)
[2022-10-10] MEDS: Tacrolimus 1 MG CAPSULE 4 MG PO ×2 (08:55→20:45)
[2022-10-10] MEDS: 0.9 % Sodium Chloride Flush 3 ML SYRINGE IVFLUSH ×2 (08:56→16:04)
--- NOTE | 2022-10-10 09:09 | PM.PNNEP ---
Subjective Subjective Date of Service: 10/11/22 Interval history: Denies any new complaints; All recent data reviewed Physical Exam Vital Signs: Vital Signs: Last Vital Signs Temp 97.3 F 10/10/22 08:00 Pulse 78 10/10/22 08:00 Resp 20 10/10/22 08:00 BP 118/76 10/10/22 08:00 Pulse Ox 98 10/10/22 08:00 O2 Del Method Room Air 10/10/22 08:00 O2 Flow Rate 99 10/07/22 14:18 BMI result Body Mass Index 29.5 Const: Other: Constitutional : Awake, interactive, not in distress Neck : Normal inspection, Supple Cardiovascular : RRR, no JVP, no lower extremity edema Respiratory : good bilateral air entry, no crackles, wheezes or rhonchi Gastrointestinal: soft, lax, Normal bowel sounds, Non tender Skin : Warm, Dry, Rt foot moran ulcer at 4th metatarsal base covered with dressing with mild edema and no significant tenderness Neurological : Alert & oriented x3, No focal deficit Objective Data Labs 10/10/22 04:49 10/10/22 04:49 Labs: Laboratory Results - last 24 hr 10/10/22 10/10/22 04:49 04:49 WBC 7.3 RBC 4.35 L Hgb 12.3 L Hct 38.8 L MCV 89.2 MCH 28.3 MCHC 31.7 RDW 15.5 Plt Count 279 MPV 11.0 Absolute Nucleated RBC 0.000 Nucleated RBC % (auto) 0.0 Sodium 140 Potassium 3.8 Chloride 108 Carbon Dioxide 26 Anion Gap 10 L BUN 12 Creatinine 1.61 H Estim Creat Clear Calc 60.4 Estimated GFR 45 Fasting Glucose 121 H Calcium 8.3 L Microbiology Microbiology Results: Microbiology 10/06/22 15:31 Blood - Venous Blood Culture - Preliminary No growth after 48 hours. 10/06/22 12:30 Blood - Venous Blood Culture - Preliminary No growth after 48 hours. Procedures Date of Service Date of Service: 10/10/22 Assessment & Plan Assessment and plan (1) Acute kidney injury superimposed on CKD: Status: Acute Assessment and Plan: GIA on CKD in a renal transplant due to tubular injury Serum creatinine better & close to baseline now No NSAID's/ACEI/ARB Good hydration. C/W current dose of tacrolimus C/W rest of current supportive management Shall closely follow up Time Spent With Patient Time: Total time managing care of this patient today ____ minutes. Progress Note: Quality Stroke Does the patient have a stroke diagnosis?: No
--- NOTE | 2022-10-10 09:26 | P.PNIM_ITS ---
Subjective Subjective Date of Service: 10/10/22 Interval History: no complaints Physical Exam Vital Signs: Vital Signs: Last Vital Signs Temp 97.3 F 10/10/22 08:00 Pulse 78 10/10/22 08:00 Resp 20 10/10/22 08:00 BP 118/76 10/10/22 08:00 Pulse Ox 98 10/10/22 08:00 O2 Del Method Room Air 10/10/22 08:00 O2 Flow Rate 99 10/07/22 14:18 BMI result Body Mass Index 29.5 Objective Data Active Medications Acetaminophen (Acetaminophen 325 Mg Tablet) 650 mg PO Q6H PRN PRN Reason: Pain, Mild (Pain Scale 1-3) Atorvastatin Calcium (Atorvastatin Calcium 40 Mg Tablet) 40 mg PO BEDTIME [facility] Last Admin: 10/09/22 20:27 Dose: 40 mg Documented By: MARGARET Docusate Sodium (Docusate Sodium 100 Mg Capsule) 100 mg PO DAILY PRN PRN Reason: Constipation Enoxaparin Sodium (Enoxaparin Sodium 100 Mg/Ml Syringe) 90 mg 1 mg/kg (90 mg) SUBCUT Q12H [facility] Last Admin: 10/10/22 08:54 Dose: 90 mg Documented By: SARA Glucose (Glucose Gel 15 Gm Gel..Gram.) 15 gm PO Q15M PRN; Protocol PRN Reason: per Hypoglycemia Standing Ord. Dextrose (D10) 250 mls @ 750 mls/hr IV Q15M PRN; Protocol PRN Reason: per Hypoglycemia Standing Ord. Meropenem 500 mg/ Sodium (Chloride) 50 mls @ 100 mls/hr IV Q8H [facility] Last Infusion: 10/10/22 06:18 Dose: 0 mls/hr Documented By: MARGARET Insulin Glargine (Insulin Glargine,Hum.Rec.Anlog 100 Unit/Ml 10 Ml Vial) 17 unit SUBCUT BEDTIME [facility] Last Admin: 10/09/22 20:29 Dose: 17 unit Documented By: MARGARET Insulin Human Lispro (Insulin Lispro 100 Unit/Ml 3 Ml Vial) 0 unit SUBCUT QIDACHS [facility]; Protocol Last Admin: 10/10/22 08:54 Dose: Not Given Documented By: SARA Non-Admin Reason: No Insulin Coverage Mirtazapine (Mirtazapine 7.5 Mg Tablet) 7.5 mg PO BEDTIME [facility] Last Admin: 10/09/22 20:26 Dose: 7.5 mg Documented By: MARGARET Morphine Sulfate (Morphine Sulfate 4 Mg/Ml Cartridge) 4 mg IVPUSH Q2H PRN; Protocol PRN Reason: Pain, Severe (Pain Scale 7-10) Mycophenolate Sodium (Mycophenolate Sodium 180 Mg Tablet.) 540 mg PO BID [facility] Last Admin: 10/10/22 08:55 Dose: 540 mg Documented By: SARA Non-Formulary Medication (Calcifediol [Rayaldee]) 30 mcg PO BEDTIME [facility] Last Admin: 10/09/22 20:27 Dose: 30 mcg Documented By: MARGARET Ondansetron HCl (Ondansetron Hcl 4 Mg/2 Ml Vial) 4 mg IVPUSH Q8H PRN PRN Reason: Nausea and Vomiting Oxycodone HCl (Oxycodone Hcl Immed Release 5 Mg Tablet) 5 mg PO Q4H PRN PRN Reason: Pain, Moderate (Pain Scale 4-6 Pharmacy Consult (Consult Rx Perform Med Rec) 1 each MISCELLANE ONCE PRN PRN Reason: Consult order Sodium Chloride (0.9 % Sodium Chloride Flush 3 Ml Syringe) 3 ml IVFLUSH QSHIFT [facility] Last Admin: 10/10/22 08:56 Dose: 3 ml Documented By: SARA Tacrolimus (Tacrolimus 1 Mg Capsule) 4 mg PO BID [facility] Last Admin: 10/10/22 08:55 Dose: 4 mg Documented By: SARA Labs 10/10/22 04:49 10/10/22 04:49 Labs: Laboratory Results - last 24 hr 10/10/22 10/10/22 04:49 04:49 MCV 89.2 MCH 28.3 MCHC 31.7 RDW 15.5 Plt Count 279 MPV 11.0 Absolute Nucleated RBC 0.000 Nucleated RBC % (auto) 0.0 Anion Gap 10 L Estim Creat Clear Calc 60.4 Estimated GFR 45 Fasting Glucose 121 H Calcium 8.3 L Assessment and Plan (1) Osteomyelitis: Status: Acute (2) Wound of right foot: Status: Acute Plan 52-year-old male with history of testicular cancer stage III completed chemo 10/2020, insulin-dependent type 1 diabetes, paroxysmal atrial fibrillation anticoagulated with Eliquis, CKD stage 4 s/p left-sided renal transplant on immu nosuppressive therapy, peripheral vascular disease, hyperlipidemia, history of osteomyelitis of the left foot, anemia of chronic disease, secondary hyperparathyroidism admitted for acute osteomyelitis of the right 3rd and 4th toes. acute osteomyelitis Right 3rd-4th toes XRay showing new bony erosions 3rd proximal phalanx and medial surfaces of the distal 4th metatarsal and proximal 4th phalanx Continue IV cefepime and vanco arterial duplex RLE, ?Atherosclerotic disease of the SFA without hemodynamically significant stenosis. Occluded posterior tibial artery. s/p angio 10/08/22 - PVD with right posterior tibial artery occulusion but with reconstitution, no intervention hold Eliquis in case of surgical procedure, on Lovenox full dose plan for amp on 10/13/22 acute stage I ulceration 4th right toe and chronic a stage II ulcer related to uncontrolled type 2 diabetes and PAD Follows with wound care center insulin-dependent type 1 diabetes with hyperglycemia hemoglobin A1c pending dose adjusted basal insulin Humalog on sliding scale diabetic diet POC glucose CKD stage 4 S/p left renal transplant Continue mycophenolate and tacrolimus appreciate renal input renal function baseline monitor closely post angio paroxysmal atrial fibrillation hold Eliquis as above, resume as appropriate. Therapeutic Lovenox initiated not on rate control medication HLD continue statin secondary hyperparathyroidism continue rayaldee anemia of chronic disease H/H baseline, above transfusion threshold DVT prophylaxis- Lovenox Full code reason for continued hospitalization:iv abx, close monitoring renal function post contrast Time Spent With Patient Time: Total time managing care of this patient today ____ minutes. Quality Stroke Does the patient have a stroke diagnosis?: No VTE Prior VTE?: No VTE Risk Level:: Medical - moderate - high VTE Device Contraindication: Treatment Not Indicated VTE Drug Contraindication: N/A - Med Ordered
--- NOTE | 2022-10-10 10:26 | MHC.CM.PN ---
Per ROUNDS discussion, Patient will have an amputation on Thursday and will likely still require LT IVABT at home on dc. CM will continue to follow.
--- NOTE | 2022-10-10 10:31 | P.PNVS_ITS ---
Subjective Subjective Date of Service: 10/10/22 Patient reports: no new complaints and feels better Interval history: Very pleasant 52-year-old gentleman with nonhealing right 4th toe ulcer. Has had no interval events overnight. Resting comfortably. Now for routine follow- up and wound check. Physical Exam Vital Signs: Vital Signs: Last Vital Signs Temp 97.3 F 10/10/22 08:00 Pulse 78 10/10/22 08:00 Resp 20 10/10/22 08:00 BP 118/76 10/10/22 08:00 Pulse Ox 98 10/10/22 08:00 O2 Del Method Room Air 10/10/22 08:00 O2 Flow Rate 99 10/07/22 14:18 BMI result Body Mass Index 29.5 Const: General: cooperative, healthy appearing and no acute distress [place] ation/consciousness: oriented to person, oriented to place and oriented to time HEENT: Head: Yes normal to inspection Neck: Carotids: no bruits Chest: Chest palpation & inspection: normal inspection of the chest Resp: Effort & Inspection: normal respiratory effort and able to speak in complete sentences Auscultation: clear to auscultation bilaterally Cardio: Rate: regular rate Heart sounds: S1 normal heart sound present and S2 normal heart sound present GI: Inspection: Yes normal to inspection Skin: Other: Right 4th toe necrotic dry gangrene General skin exam: no rashes or lesions noted Wounds: no wounds Neuro: General: oriented to person, oriented to place, oriented to time and CN's II-XI intact bilaterally Extrem: General: Yes normal to inspection, Yes full ROM and Yes no clubbing, cyanosis or edema Psych: Appearance: grossly normal and well kempt Speech and movement: Symone l speech and movement present Affect: normal affect Progress Note: A&P Assessment and plan (1) Diabetic ulcer of right foot: Status: Acute Assessment and Plan: In short patient has a nonhealing right 4th toe ulcer. Angiogram demonstrated reasonable blood flow. The patient will require right 4th toe amputation. Risks benefits complications were discussed in detail with the patient. He demonstrated a clear understanding and would like to proceed. We will schedule for Thursday. Thank you for allowing us to assist in his care. If there are any questions or concerns please do not hesitate to contact us Time Spent With Patient Time: Total time managing care of this patient today ____ minutes. Procedures Date of Service Date of Service: 10/10/22 Quality Stroke Does the patient have a stroke diagnosis?: No VTE Prior VTE?: No VTE Risk Level:: Medical - moderate - high VTE Device Contraindication: Treatment Not Indicated VTE Drug Contraindication: N/A - Med Ordered
[2022-10-10 15:28] VITALS: BP 141/76; PULSE 73; RESP 17; TEMP 36.4; O2SAT 100
[2022-10-10] MEDS: Insulin Lispro 100 UNIT/ML 3 ML VIAL SUBCUT (16:22)
[2022-10-10 19:31] VITALS: BP 149/82; PULSE 78; RESP 18; TEMP 36.9; O2SAT 100
[2022-10-10] MEDS: Insulin Glargine,Hum.rec.anlog 100 UNIT/ML 10 ML VIAL 17 UNIT SUBCUT (20:45)
[2022-10-10] MEDS: Mirtazapine 7.5 MG TABLET PO (20:45)
[2022-10-10] MEDS: Atorvastatin Calcium 40 MG TABLET PO (20:46)
[2022-10-11] MEDS: 0.9 % Sodium Chloride Flush 3 ML SYRINGE IVFLUSH ×4 (01:03→21:06)
[2022-10-11 03:36] VITALS: BP 120/64; PULSE 71; RESP 20; TEMP 36.2; O2SAT 96
[2022-10-11 07:45] VITALS: BP 140/77; PULSE 69; RESP 20; TEMP 36.2; O2SAT 95
--- NOTE | 2022-10-11 08:24 | PC.NURSE ---
pt manages his own insulin pump. pt reported his blood sugar at 0730 is 125. per [facility], no coverage needed.
[2022-10-11] MEDS: Enoxaparin Sodium 100 MG/ML SYRINGE 90 MG SUBCUT (09:09)
[2022-10-11] MEDS: Mycophenolate Sodium 180 MG TABLET.DR 540 MG PO ×2 (09:10→20:57)
--- NOTE | 2022-10-11 09:26 | P.PNIM_ITS ---
Subjective Subjective Date of Service: 10/11/22 Interval History: no complaints Physical Exam Vital Signs: Vital Signs: Last Vital Signs Temp 97.2 F 10/11/22 07:45 Pulse 69 10/11/22 07:45 Resp 20 10/11/22 07:45 BP 140/77 H 10/11/22 07:45 Pulse Ox 95 10/11/22 07:45 O2 Del Method Room Air 10/11/22 07:45 O2 Flow Rate 99 10/07/22 14:18 BMI result Body Mass Index 29.5 Const: General: cooperative, healthy appearing and no acute distress Orientation/consciousness: oriented to person, oriented to place and oriented to time HEENT: Head: Yes normal to inspection Neck: Carotids: no bruits Chest: Chest palpation & inspection: normal inspection of the chest Resp: Effort & Inspection: normal respiratory effort and able to speak in complete sentences Auscultation: clear to auscultation bilaterally Cardio: Rate: regular rate Heart sounds: S1 normal heart sound present and S2 normal heart sound present GI: Inspection: Yes normal to inspection Skin: Other: Right 4th toe necrotic dry gangrene General skin exam: no rashes or lesions noted Wounds: no wounds Neuro: General: oriented to person, oriented to place, oriented to time and CN's II-XI intact bilaterally Extrem: General: Yes normal to inspection, Yes full ROM and Yes no clubbing, cyanosis or edema Psych: Appearance: grossly normal and well kempt Speech and movement: Normal speech and movement present Affect: normal affect Objective Data Active Medications Acetaminophen (Acetaminophen 325 Mg Tablet) 650 mg PO Q6H PRN PRN Reason: Pain, Mild (Pain Scale 1-3) Atorvastatin Calcium (Atorvastatin Calcium 40 Mg Tablet) 40 mg PO BEDTIME COUNT [facility]CLUDES [facility] Last Admin: 10/10/22 20:46 Dose: 40 mg Documented By: SARA Docusate Sodium (Docusate Sodium 100 Mg Capsule) 100 mg PO DAILY PRN PRN Reason: Constipation Enoxaparin Sodium (Enoxaparin Sodium 100 Mg/Ml Syringe) 90 mg 1 mg/kg (90 mg) SUBCUT Q12H COUNT [facility]CLUDES [facility] Last Admin: 10/11/22 09:09 Dose: 90 mg Documented By: LASHAWN Glucose (Glucose Gel 15 Gm Gel..Gram.) 15 gm PO Q15M PRN; Protocol PRN Reason: per Hypoglycemia Standing Ord. Dextrose (D10) 250 mls @ 750 mls/hr IV Q15M PRN; Protocol PRN Reason: per Hypoglycemia Standing Ord. Meropenem 500 mg/ Sodium (Chloride) 50 mls @ 100 mls/hr IV Q8H COUNT [facility]CLUDES [facility] Last Infusion: 10/11/22 06:33 Dose: 0 mls/hr Documented By: LINUS Insulin Glargine (Insulin Glargine,Hum.Rec.Anlog 100 Unit/Ml 10 Ml Vial) 17 unit SUBCUT BEDTIME COUNT [facility]CLUDES [facility] Last Admin: 10/10/22 20:45 Dose: 17 unit Documented By: SARA Insulin Human Lispro (Insulin Lispro 100 Unit/Ml 3 Ml Vial) 0 unit SUBCUT QIDACHS COUNT INCLUDES [facility]; Protocol Last Admin: 10/11/22 08:25 Dose: Not Given Documented By: LASHAWN Non-Admin Reason: No Insulin Coverage Comments: pt reported POC 125 Mirtazapine (Mirtazapine 7.5 Mg Tablet) 7.5 mg PO BEDTIME COUNT [facility]CLUDES [facility] Last Admin: 10/10/22 20:45 Dose: 7.5 mg Documented By: SARA Morphine Sulfate (Morphine Sulfate 4 Mg/Ml Cartridge) 4 mg IVPUSH Q2H PRN; Protocol PRN Reason: Pain, Severe (Pain Scale 7-10) Mycophenolate Sodium (Mycophenolate Sodium 180 Mg Tablet.Dr) 540 mg PO BID COUNT [facility]CLUDES [facility] Last Admin: 10/11/22 09:10 Dose: 540 mg Documented By: LASHAWN Non-Formulary Medication (Calcifediol [Rayaldee]) 30 mcg PO BEDTIME COUNT [facility]CLUDES [facility] Last Admin: 10/10/22 20:45 Dose: 30 mcg Documented By: SARA Ondansetron HCl (Ondansetron Hcl 4 Mg/2 Ml Vial) 4 mg IVPUSH Q8H PRN PRN Reason: Nausea and Vomiting Oxycodone HCl (Oxycodone Hcl Immed Release 5 Mg Tablet) 5 mg PO Q4H PRN PRN Reason: Pain, Moderate (Pain Scale 4-6 Pharmacy Consult (Consult Rx Perform Med Rec) 1 each MISCELLANE ONCE PRN PRN Reason: Consult order Sodium Chloride (0.9 % Sodium Chloride Flush 3 Ml Syringe) 3 ml IVFLUSH QSHIFT COUNT INCLUDES [facility] Last Admin: 10/11/22 09:08 Dose: 3 ml Documented By: LASHAWN Tacrolimus (Tacrolimus 1 Mg Capsule) 3 mg PO BID COUNT INCLUDES [facility] Labs 10/10/22 04:49 10/10/22 04:49 Assessment and Plan (1) Osteomyelitis: Status: Acute (2) Wound of right foot: Status: Acute Plan 52-year-old male with history of testicular cancer stage III completed chemo 10/2020, insulin-dependent type 1 diabetes, paroxysmal atrial fibrillation anticoagulated with Eliquis, CKD stage 4 s/p left-sided renal transplant on immunosuppressive therapy, peripheral vascular disease, hyperlipidemia, history of osteomyelitis of the left foot, anemia of chronic disease, secondary hyperparathyroidism admitted for acute osteomyelitis of the right 3rd and 4th toes. acute osteomyelitis Right 3rd-4th toes XRay showing new bony erosions 3rd proximal phalanx and medial surfaces of the distal 4th metatarsal and proximal 4th phalanx Continue IV cefepime and vanco arterial duplex RLE, ?Atherosclerotic disease of the SFA without hemodynamically significant stenosis. Occluded posterior tibial artery. s/p angio 10/08/22 - PVD with right posterior tibial artery occulusion but with reconstitution, no intervention hold Eliquis in case of surgical procedure, on Lovenox full dose plan for amp on 10/13/22 acute stage I ulceration 4th right toe and chronic a stage II ulcer related to uncontrolled type 2 diabetes and PAD Follows with wound care center insulin-dependent type 1 diabetes with hyperglycemia hemoglobin A1c pending dose adjusted basal insulin Humalog on sliding scale diabetic diet POC glucose CKD stage 4 S/p left renal transplant Continue mycophenolate and tacrolimus appreciate renal input renal function baseline monitor closely post angio paroxysmal atrial fibrillation hold Eliquis as above, resume as appropriate. Therapeutic Lovenox initiated not on rate control medication HLD continue statin secondary hyperparathyroidism continue rayaldee anemia of chronic disease H/H baseline, above transfusion threshold DVT prophylaxis- Lovenox Full code reason for continued hospitalization:iv abx, close monitoring renal function post contrast Time Spent With Patient Time: Total time managing care of this patient today ____ minutes. Quality Stroke Does the patient have a stroke diagnosis?: No VTE Prior VTE?: No VTE Risk Level:: Medical - moderate - high VTE Device Contraindication: Treatment Not Indicated VTE Drug Contraindication: N/A - Med Ordered
[2022-10-11] MEDS: Tacrolimus 1 MG CAPSULE 3 MG PO ×2 (11:38→20:52)
[2022-10-11] MEDS: Insulin Lispro 100 UNIT/ML 3 ML VIAL SUBCUT ×2 (12:22→21:04)
--- NOTE | 2022-10-11 13:17 | PM.PNNEP ---
Subjective Subjective Date of Service: 10/11/22 Interval history: no complaints Physical Exam Vital Signs: Vital Signs: Last Vital Signs Temp 97.2 F 10/11/22 07:45 Pulse 69 10/11/22 07:45 Resp 20 10/11/22 07:45 BP 140/77 H 10/11/22 07:45 Pulse Ox 95 10/11/22 07:45 O2 Del Method Room Air 10/11/22 07:45 O2 Flow Rate 99 10/07/22 14:18 BMI result Body Mass Index 29.5 Const: Other: Constitutional : Awake, interactive, not in distress Neck : Normal inspection, Supple Cardiovascular : RRR, no JVP, no lower extremity edema Respiratory : good bilateral air entry, no crackles, wheezes or rhonchi Gastrointestinal: soft, lax, Normal bowel sounds, Non tender Skin : Warm, Dry, Rt foot moran ulcer at 4th metatarsal base covered with dressing with mild edema and no significant tenderness Neurological : Alert & oriented x3, No focal deficit Objective Data Labs 10/10/22 04:49 10/10/22 04:49 Microbiology Microbiology Results: Microbiology 10/06/22 15:31 Blood - Venous Blood Culture - Preliminary No growth after 48 hours. 10/06/22 12:30 Blood - Venous Blood Culture - Preliminary No growth after 48 hours. Procedures Date of Service Date of Service: 10/11/22 Assessment & Plan Assessment and plan (1) Acute kidney injury superimposed on CKD: Status: Acute Assessment and Plan: GIA on CKD in a renal transplant due to tubular injury Serum creatinine better & close to baseline now No NSAID's/ACEI/ARB Good hydration. C/W current dose of tacrolimus C/W rest of current supportive management Shall closely follow up Time Spent With Patient Time: Total time managing care of this patient today ____ minutes. Progress Note: Quality Stroke Does the patient have a stroke diagnosis?: No
[2022-10-11 15:23] VITALS: BP 135/70; PULSE 67; RESP 17; TEMP 37.5; O2SAT 98
[2022-10-11 19:27] VITALS: BP 149/79; PULSE 77; RESP 17; TEMP 36.7; O2SAT 99
[2022-10-11] MEDS: Mirtazapine 7.5 MG TABLET PO (20:55)
[2022-10-11] MEDS: Atorvastatin Calcium 40 MG TABLET PO (20:57)
[2022-10-11] MEDS: Insulin Glargine,Hum.rec.anlog 100 UNIT/ML 10 ML VIAL 17 UNIT SUBCUT (21:03)
[2022-10-12 00:44] VITALS: PULSE 77; RESP 16; TEMP 36.6; O2SAT 96
[2022-10-12 04:00] VITALS: BP 120/75; PULSE 65; RESP 16; TEMP 36.4; O2SAT 94
[2022-10-12 08:00] VITALS: BP 112/55; PULSE 62; RESP 18; TEMP 36.7; O2SAT 96
--- NOTE | 2022-10-12 08:53 | HO.PM.IMPN ---
Subjective Subjective Date of Service: 10/12/22 Physical Exam Vital Signs: Vital Signs: Last Vital Signs Temp 98.1 F 10/12/22 08:00 Pulse 62 10/12/22 08:00 Resp 18 10/12/22 08:00 BP 112/55 L 10/12/22 08:00 Pulse Ox 96 10/12/22 08:00 O2 Del Method Room Air 10/12/22 08:00 O2 Flow Rate 99 10/07/22 14:18 BMI result Body Mass Index 29.5 Objective Data Active Medications Acetaminophen (Acetaminophen 325 Mg Tablet) 650 mg PO Q6H PRN PRN Reason: Pain, Mild (Pain Scale 1-3) Atorvastatin Calcium (Atorvastatin Calcium 40 Mg Tablet) 40 mg PO BEDTIME [facility] Last Admin: 10/11/22 20:57 Dose: 40 mg Documented By: SELENA Docusate Sodium (Docusate Sodium 100 Mg Capsule) 100 mg PO DAILY PRN PRN Reason: Constipation Enoxaparin Sodium (Enoxaparin Sodium 100 Mg/Ml Syringe) 90 mg 1 mg/kg (90 mg) SUBCUT Q12H [facility] Last Admin: 10/11/22 21:03 Dose: Not Given Documented By: SELENA Non-Admin Reason: held Glucose (Glucose Gel 15 Gm Gel..Gram.) 15 gm PO Q15M PRN; Protocol PRN Reason: per Hypoglycemia Standing Ord. Dextrose (D10) 250 mls @ 750 mls/hr IV Q15M PRN; Protocol PRN Reason: per Hypoglycemia Standing Ord. Meropenem 500 mg/ Sodium (Chloride) 50 mls @ 100 mls/hr IV Q8H [facility] Last Infusion: 10/12/22 06:29 Dose: 0 mls/hr Documented By: SELENA Insulin Glargine (Insulin Glargine,Hum.Rec.Anlog 100 Unit/Ml 10 Ml Vial) 17 unit SUBCUT BEDTIME [facility] Last Admin: 10/11/22 21:03 Dose: 17 unit Documented By: SELENA Insulin Human Lispro (Insulin Lispro 100 Unit/Ml 3 Ml Vial) 0 unit SUBCUT QIDACHS [facility]; Protocol Last Admin: 10/12/22 08:32 Dose: Not Given Documented By: LASHAWN Non-Admin Reason: No Insulin Coverage Comments: pt own machine-93 Mirtazapine (Mirtazapine 7.5 Mg Tablet) 7.5 mg PO BEDTIME [facility] Last Admin: 10/11/22 20:55 Dose: 7.5 mg Documented By: SELENA Morphine Sulfate (Morphine Sulfate 4 Mg/Ml Cartridge) 4 mg IVPUSH Q2H PRN; Protocol PRN Reason: Pain, Severe (Pain Scale 7-10) Mycophenolate Sodium (Mycophenolate Sodium 180 Mg Tablet.Dr) 540 mg PO BID [facility] Last Admin: 10/11/22 20:57 Dose: 540 mg Documented By: SELENA Non-Formulary Medication (Calcifediol [Rayaldee]) 30 mcg PO BEDTIME [facility] Last Admin: 10/11/22 21:02 Dose: 30 mcg Documented By: SELENA Ondansetron HCl (Ondansetron Hcl 4 Mg/2 Ml Vial) 4 mg IVPUSH Q8H PRN PRN Reason: Nausea and Vomiting Oxycodone HCl (Oxycodone Hcl Immed Release 5 Mg Tablet) 5 mg PO Q4H PRN PRN Reason: Pain, Moderate (Pain Scale 4-6 Pharmacy Consult (Consult Rx Perform Med Rec) 1 each MISCELLANE ONCE PRN PRN Reason: Consult order Sodium Chloride (0.9 % Sodium Chloride Flush 3 Ml Syringe) 3 ml IVFLUSH QSHIFT [facility] Last Admin: 10/11/22 21:06 Dose: 3 ml Documented By: SELENA Tacrolimus (Tacrolimus 1 Mg Capsule) 3 mg PO BID [facility] Last Admin: 10/11/22 20:52 Dose: 3 mg Documented By: SELENA Labs 10/10/22 04:49 10/10/22 04:49 Microbiology Microbiology Results: Microbiology 10/06/22 15:31 Blood Culture - Final Blood - Venous No growth after 5 days. 10/06/22 12:30 Blood Culture - Final Blood - Venous No growth after 5 days. Assessment and Plan Time Spent With Patient Time: Total time managing care of this patient today ____ minutes. Quality Stroke Does the patient have a stroke diagnosis?: No VTE Prior VTE?: No VTE Risk Level:: Medical - moderate - high VTE Device Contraindication: Treatment Not Indicated VTE Drug Contraindication: N/A - Med Ordered
[2022-10-12] MEDS: Tacrolimus 1 MG CAPSULE 3 MG PO ×2 (09:13→20:45)
[2022-10-12] MEDS: Mycophenolate Sodium 180 MG TABLET.DR 540 MG PO ×2 (09:13→20:45)
[2022-10-12] MEDS: Enoxaparin Sodium 100 MG/ML SYRINGE 90 MG SUBCUT (09:13)
[2022-10-12] MEDS: 0.9 % Sodium Chloride Flush 3 ML SYRINGE IVFLUSH ×2 (09:14→14:40)
--- NOTE | 2022-10-12 13:08 | PM.PNNEP ---
Subjective Subjective Date of Service: 10/12/22 Interval history: Events noted no complaints Physical Exam Vital Signs: Vital Signs: Last Vital Signs Temp 98.1 F 10/12/22 08:00 Pulse 62 10/12/22 08:00 Resp 18 10/12/22 08:00 BP 112/55 L 10/12/22 08:00 Pulse Ox 96 10/12/22 08:00 O2 Del Method Room Air 10/12/22 08:00 O2 Flow Rate 99 10/07/22 14:18 BMI result Body Mass Index 29.5 Const: Other: Constitutional : Awake, interactive, not in distress Neck : Normal inspection, Supple Cardiovascular : RRR, no JVP, no lower extremity edema Respiratory : good bilateral air entry, no crackles, wheezes or rhonchi Gastrointestinal: soft, lax, Normal bowel sounds, Non tender Skin : Warm, Dry, Rt foot moran ulcer at 4th metatarsal base covered with dressing with mild edema and no significant tenderness Neurological : Alert & oriented x3, No focal deficit General: comfortable and no acute distress Orientation/consciousness: patient oriented x3 Eyes: EOM: EOMs intact bilaterally Neck: Neck: Yes supple Resp: Auscultation: diminished lung sounds Cardio: Rate: regular rate GI: Other: No tenderness over renal transplant Palpation (GI): Soft to palpation Skin: General skin exam: no rashes or lesions noted Neuro: General: patient oriented x3 Objective Data Labs 10/10/22 04:49 10/10/22 04:49 Microbiology Microbiology Results: Microbiology 10/06/22 15:31 Blood - Venous Blood Culture - Final No growth after 5 days. 10/06/22 12:30 Blood - Venous Blood Culture - Final No growth after 5 days. Procedures Date of Service Date of Service: 10/12/22 Assessment & Plan Assessment and plan (1) Acute kidney injury superimposed on CKD: Status: Acute Assessment and Plan: GIA on CKD in a renal transplant due to tubular injury Serum creatinine better & close to baseline now No NSAID's/ACEI/ARB Good hydration. C/W current dose of tacrolimus C/W rest of current supportive management Shall closely follow up Time Spent With Patient Time: Total time managing care of this patient today ____ minutes. Progress Note: Quality Stroke Does the patient have a stroke diagnosis?: No
[2022-10-12 15:16] VITALS: BP 135/85; PULSE 70; RESP 18; TEMP 36.7; O2SAT 100
[2022-10-12 19:20] VITALS: BP 137/77; PULSE 100; RESP 17; TEMP 36.8; O2SAT 97
[2022-10-12] MEDS: Insulin Lispro 100 UNIT/ML 3 ML VIAL SUBCUT (20:41)
[2022-10-12] MEDS: Insulin Glargine,Hum.rec.anlog 100 UNIT/ML 10 ML VIAL 17 UNIT SUBCUT (20:42)
[2022-10-12] MEDS: Atorvastatin Calcium 40 MG TABLET PO (20:45)
[2022-10-12] MEDS: Mirtazapine 7.5 MG TABLET PO (20:45)
[2022-10-13] VITALS (7 sets, daily range): BP systolic 105–149; BP diastolic 60–82; PULSE 65–75; RESP 14–20; TEMP 35.9–37.2; O2SAT 94–100
[2022-10-13] MEDS: 0.9 % Sodium Chloride Flush 3 ML SYRINGE IVFLUSH ×4 (01:20→22:58)
[2022-10-13 07:10] LABS: Hematocrit 39.8 % (42.0-52.0); Hemoglobin 12.8 g/dl (14.0-18.0); Mean Corpuscular HGB Conc 32.2 g/dl (31.0-36.0); Mean Corpuscular Hemoglobin 28.6 pg (27.0-33.0); Mean Platelet Volume 10.8 fL (9.4-12.4); Platelet Count 242 X10*3/uL (160-400); Red Blood Count 4.47 X10*6/uL (4.60-5.80); Red Cell Distribution Width 15.8 % (11.0-16.0); White Blood Count 8.8 X10*3/uL (4.8-10.8)
[2022-10-13 07:12] LABS: Anion Gap 12 (12-20); Blood Urea Nitrogen 16 mg/dL (9-16); Calcium 8.6 mg/dL (8.4-10.2); Carbon Dioxide 24 mmol/L (22-29); Chloride 106 mmol/L (96-108); Creatinine Clr Calc Pharmacy 65.2; Estimated Glomerular Filt Rate 50; Glucose Fasting 115 mg/dL (60-99); Sodium 138 mmol/L (135-145)
[2022-10-13] MEDS: Mycophenolate Sodium 180 MG TABLET.DR 540 MG PO ×2 (09:20→19:55)
[2022-10-13] MEDS: Tacrolimus 1 MG CAPSULE 3 MG PO ×2 (09:21→20:01)
--- NOTE | 2022-10-13 09:43 | HO.PM.IMPN ---
Subjective Subjective Date of Service: 10/13/22 Physical Exam Vital Signs: Vital Signs: Last Vital Signs Temp 97.1 F 10/13/22 07:24 Pulse 74 10/13/22 07:24 Resp 20 10/13/22 07:24 BP 134/78 10/13/22 07:24 Pulse Ox 95 10/13/22 07:24 O2 Del Method Room Air 10/13/22 07:24 O2 Flow Rate 99 10/07/22 14:18 BMI result Body Mass Index 29.5 Const: Other: Constitutional : Awake, interactive, not in distress Neck : Normal inspection, Supple Cardiovascular : RRR, no JVP, no lower extremity edema Respiratory : good bilateral air entry, no crackles, wheezes or rhonchi Gastrointestinal: soft, lax, Normal bowel sounds, Non tender Skin : Warm, Dry, Rt foot moran ulcer at 4th metatarsal base covered with dressing with mild edema and no significant tenderness Neurological : Alert & oriented x3, No focal deficit General: comfortable and no acute distress Orientation/consciousness: patient oriented x3 Eyes: EOM: EOMs intact bilaterally Neck: Neck: Yes supple Resp: Auscultation: diminished lung sounds Cardio: Rate: regular rate GI: Other: No tenderness over renal transplant Palpation (GI): Soft to palpation Skin: General skin exam: no rashes or lesions noted Neuro: General: patient oriented x3 Objective Data Active Medications Acetaminophen (Acetaminophen 325 Mg Tablet) 650 mg PO Q6H PRN PRN Reason: Pain, Mild (Pain Scale 1-3) Atorvastatin Calcium (Atorvastatin Calcium 40 Mg Tablet) 40 mg PO BEDTIME [facility] Last Admin: 10/12/22 20:45 Dose: 40 mg Documented By: ANIL Docusate Sodium (Docusate Sodium 100 Mg Capsule) 100 mg PO DAILY PRN PRN Reason: Constipation Enoxaparin Sodium (Enoxaparin Sodium 100 Mg/Ml Syringe) 90 mg 1 mg/kg (90 mg) SUBCUT Q12H [facility] Last Admin: 10/12/22 09:13 Dose: 90 mg Documented By: LASHAWN Glucose (Glucose Gel 15 Gm Gel..Gram.) 15 gm PO Q15M PRN; Protocol PRN Reason: per Hypoglycemia Standing Ord. Dextrose (D10) 250 mls @ 750 mls/hr IV Q15M PRN; Protocol PRN Reason: per Hypoglycemia Standing Ord. Meropenem 500 mg/ Sodium (Chloride) 50 mls @ 100 mls/hr IV Q8H [facility] Last Infusion: 10/13/22 07:14 Dose: 0 mls/hr Documented By: BOBBY Dextrose/Sodium Chloride (D51/2ns) 1,000 mls @ 80 mls/hr IVCONT .[id number] [facility] Insulin Glargine (Insulin Glargine,Hum.Rec.Anlog 100 Unit/Ml 10 Ml Vial) 17 unit SUBCUT BEDTIME [facility] Last Admin: 10/12/22 20:42 Dose: 17 unit Documented By: ANIL Insulin Human Lispro (Insulin Lispro 100 Unit/Ml 3 Ml Vial) 0 unit SUBCUT QIDACHS [facility]; Protocol Last Admin: 10/12/22 20:41 Dose: 1 unit Documented By: ANIL Mirtazapine (Mirtazapine 7.5 Mg Tablet) 7.5 mg PO BEDTIME [facility] Last Admin: 10/12/22 20:45 Dose: 7.5 mg Documented By: ANIL Morphine Sulfate (Morphine Sulfate 4 Mg/Ml Cartridge) 4 mg IVPUSH Q2H PRN; Protocol PRN Reason: Pain, Severe (Pain Scale 7-10) Mycophenolate Sodium (Mycophenolate Sodium 180 Mg Tablet.) 540 mg PO BID [facility] Last Admin: 10/13/22 09:20 Dose: 540 mg Documented By: CHRIS Non-Formulary Medication (Calcifediol [Rayaldee]) 30 mcg PO BEDTIME [facility] Last Admin: 10/12/22 20:43 Dose: 30 mcg Documented By: ANIL Ondansetron HCl (Ondansetron Hcl 4 Mg/2 Ml Vial) 4 mg IVPUSH Q8H PRN PRN Reason: Nausea and Vomiting Oxycodone HCl (Oxycodone Hcl Immed Release 5 Mg Tablet) 5 mg PO Q4H PRN PRN Reason: Pain, Moderate (Pain Scale 4-6 Pharmacy Consult (Consult Rx Perform Med Rec) 1 each MISCELLANE ONCE PRN PRN Reason: Consult order Sodium Chloride (0.9 % Sodium Chloride Flush 3 Ml Syringe) 3 ml IVFLUSH QSHIFT [facility] Last Admin: 10/13/22 09:29 Dose: 3 ml Documented By: CHRIS Tacrolimus (Tacrolimus 1 Mg Capsule) 3 mg PO BID [facility] Last Admin: 10/13/22 09:21 Dose: 3 mg Documented By: CHRIS Labs 10/13/22 06:34 10/13/22 06:34 Labs: Laboratory Results - last 24 hr 10/13/22 10/13/22 06:34 06:34 MCV 89.0 MCH 28.6 MCHC 32.2 RDW 15.8 Plt Count 242 MPV 10.8 Absolute Nucleated RBC 0.000 Nucleated RBC % (auto) 0.0 Anion Gap 12 Estim Creat Clear Calc 65.2 Estimated GFR 50 Fasting Glucose 115 H Calcium 8.6 Assessment and Plan (1) Osteomyelitis: Status: Acute (2) Wound of right foot: Status: Acute Plan 52-year-old male with history of testicular cancer stage III completed chemo 10/2020, insulin-dependent type 1 diabetes, paroxysmal atrial fibrillation anticoagulated with Eliquis, CKD stage 4 s/p left-sided renal transplant on immunosuppressive therapy, peripheral vascular disease, hyperlipidemia, history of osteomyelitis of the left foot, anemia of chronic disease, secondary hyperparathyroidism admitted for acute osteomyelitis of the right 3rd and 4th toes. acute osteomyelitis Right 3rd-4th toes XRay showing new bony erosions 3rd proximal phalanx and medial surfaces of the distal 4th metatarsal and proximal 4th phalanx Continue IV cefepime and vanco arterial duplex RLE, ?Atherosclerotic disease of the SFA without hemodynamically significant stenosis. Occluded posterior tibial artery. s/p angio 10/08/22 - PVD with right posterior tibial artery occulusion but with reconstitution, no intervention hold Eliquis in case of surgical procedure, on Lovenox full dose plan for amp today on 10/13/22 acute stage I ulceration 4th right toe and chronic a stage II ulcer related to uncontrolled type 2 diabetes and PAD Follows with wound care center insulin-dependent type 1 diabetes with hyperglycemia hemoglobin A1c pending dose adjusted basal insulin Humalog on sliding scale diabetic diet POC glucose CKD stage 4 S/p left renal transplant Continue mycophenolate and tacrolimus appreciate renal input renal function baseline monitor closely post angio paroxysmal atrial fibrillation hold Eliquis as above, resume as appropriate. Therapeutic Lovenox initiated not on rate control medication HLD continue statin secondary hyperparathyroidism continue rayaldee anemia of chronic disease H/H baseline, above transfusion threshold DVT prophylaxis- Lovenox Full code reason for continued hospitalization:iv abx, close monitoring renal function post contrast Time Spent With Patient Time: Total time managing care of this patient today ____ minutes. Quality Stroke Does the patient have a stroke diagnosis?: No VTE Prior VTE?: No VTE Risk Level:: Medical - moderate - high VTE Device Contraindication: Treatment Not Indicated VTE Drug Contraindication: N/A - Med Ordered
[2022-10-13] MEDS: Dextrose 5 % and 0.45 % NaCl 1,000 ML 80 ML IVCONT (09:52)
--- NOTE | 2022-10-13 10:21 | MHC.CM.PN ---
Per ROUNDS discussion, Patient is having surgery today and is not yet medically cleared for dc. Home with VNA & HI for LT IVABT remains the goal and CM will continue to follow.
--- NOTE | 2022-10-13 10:38 | PM.PNNEP ---
Subjective Subjective Date of Service: 10/14/22 <Roverto Nowak MD - Last Filed: 10/14/22 10:56> 10/13/22 <Maribel Doty MD - Last Filed: 10/13/22 13:18> Interval history: Events noted no complaints <Roverto Nowak MD - Last Filed: 10/14/22 10:56> Physical Exam Vital Signs: Vital Signs: Last Vital Signs Temp 97.1 F 10/13/22 07:24 Pulse 74 10/13/22 07:24 Resp 20 10/13/22 07:24 BP 134/78 10/13/22 07:24 Pulse Ox 95 10/13/22 07:24 O2 Del Method Room Air 10/13/22 07:24 O2 Flow Rate 99 10/07/22 14:18 BMI result Body Mass Index 29.5 <Roverto Nowak MD - Last Filed: 10/14/22 10:56> Const: Other: Constitutional : Awake, interactive, not in distress Neck : Normal inspection, Supple Cardiovascular : RRR, no JVP, no lower extremity edema Respiratory : good bilateral air entry, no crackles, wheezes or rhonchi Gastrointestinal: soft, lax, Normal bowel sounds, Non tender Skin : Warm, Dry, Rt foot moran ulcer at 4th metatarsal base covered with dressing with mild edema and no significant tenderness Neurological : Alert & oriented x3, No focal deficit <Roverto Nowak MD - Last Filed: 10/14/22 10:56> Objective Data Labs CBC & Chem 7: 10/13/22 06:34 10/13/22 06:34 <Roverto Nowak MD - Last Filed: 10/14/22 10:56> Labs: Laboratory Results - last 24 hr 10/13/22 10/13/22 06:34 06:34 WBC 8.8 RBC 4.47 L Hgb 12.8 L Hct 39.8 L MCV 89.0 MCH 28.6 MCHC 32.2 RDW 15.8 Plt Count 242 MPV 10.8 Absolute Nucleated RBC 0.000 Nucleated RBC % (auto) 0.0 Sodium 138 Potassium 4.0 Chloride 106 Carbon Dioxide 24 Anion Gap 12 BUN 16 Creatinine 1.49 H Estim Creat Clear Calc 65.2 Estimated GFR 50 Fasting Glucose 115 H Calcium 8.6 <Roverto Nowak MD - Last Filed: 10/14/22 10:56> Microbiology Microbiology Results: Microbiology 10/06/22 15:31 Blood - Venous Blood Culture - Final No growth after 5 days. 10/06/22 12:30 Blood - Venous Blood Culture - Final No growth after 5 days. <Roverto Nowak MD - Last Filed: 10/14/22 10:56> Procedures Date of Service Date of Service: 10/13/22 <Roverto Nowak MD - Last Filed: 10/14/22 10:56> Assessment & Plan Assessment and plan (1) Acute kidney injury superimposed on CKD: Status: Acute <Roverto Nowak MD - Last Filed: 10/14/22 10:56> Assessment and Plan: GIA on CKD in a renal transplant due to tubular injury Serum creatinine better & close to baseline now No NSAID's/ACEI/ARB Keep I > O . C/W current dose of tacrolimus Levels ordered for tomorrow. C/W rest of current supportive management To OR today Shall closely follow up <Roverto Nowak MD - Last Filed: 10/14/22 10:56> Time Spent With Patient Time: Total time managing care of this patient today ____ minutes. <Roverto Nowak MD - Last Filed: 10/14/22 10:56> Progress Note: Quality Stroke Does the patient have a stroke diagnosis?: No <Roverto Nowak MD - Last Filed: 10/14/22 10:56>
[2022-10-13 12:25] LABS: Glucose, Whole Blood 134 mg/dL (60-115)
--- NOTE | 2022-10-13 12:46 | MHC.SHP ---
Pre-Procedural Eval Section A Date of Service: 10/13/22 The patient is an INPATIENT: Yes Changes since office visit: Yes Patient answered all questions The History & Physical has been completed within 30 days and I have reviewed it.: Yes Section B Chief Complaint: osteomyelitis, RIGHT LEG,PAD Allergies: Allergies Allergy/AdvReac Type Severity Reaction Status Date / Time No Known Allergies Allergy Verified 10/06/22 12:11 Plan I have reviewed the history and physical and performed a pertinent physical examination on my patient. No changes have occurred unless specified. Time Spent With Patient Time: Total time managing care of this patient today ____ minutes.
--- NOTE | 2022-10-13 13:18 | P.CONAN_ITS ---
[facility] Active Problems Active Problems: All Active Problems (Updated 10/10/22 @ 10:33 by Bart Marrero MD) Diabetic ulcer of right foot (Acute) Acute kidney injury superimposed on CKD (Acute) Osteomyelitis (Acute) Wound of right foot (Acute) Groin pain (Acute) Laboratory exam ordered as part of routine general medical examination (Acute) Osteomyelitis of great toe of left foot (Acute) Renal transplant recipient (Acute) PAD (peripheral artery disease) (Acute) Cellulitis of great toe, left (Acute) Chronic right shoulder pain (Acute) Multinodular goiter (Acute) Urinary retention with incomplete bladder emptying (Acute) Testicular cancer (Acute) Bleeding internal hemorrhoids (Acute) Seminoma (Acute) Paresthesia and pain of extremity (Acute) Shingles rash (Acute) Tenosynovitis of right wrist (Acute) Type 2 diabetes mellitus with hyperglycemia, with long-term current use of insulin (Acute) Type 2 diabetes mellitus with chronic kidney disease (Acute) HTN (hypertension) (Acute) Hyperlipidemia (Acute) Vaccination refused by patient (Acute) Refused pneumococcal vaccination (Acute) Anemia in stage 4 chronic kidney disease (Acute) Annual visit for general adult medical examination with abnormal findings (Acute) Secondary hyperparathyroidism of renal origin (Acute) Mixed dyslipidemia (Acute) Peripheral vascular disease (Acute) Diabetes mellitus with diabetic nephropathy, with long-term current use of insulin (Acute) Osteomyelitis of left foot (Acute) Diabetes mellitus with foot ulcer (Acute) End-stage renal disease on hemodialysis (Acute) Injury of tendon of right rotator cuff (Acute) Kidney transplant recipient (Chronic) Past Medical History Medical History 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 chronic kidney disease Bleeding internal hemorrhoids Carpal tunnel syndrome on left Chronic right shoulder pain Diabetes mellitus with diabetic nephropathy, with long-term current use of insulin Diabetes mellitus with foot ulcer End-stage renal disease on hemodialysis Hyperlipidemia Mixed dyslipidemia Multinodular goiter Osteomyelitis of left foot Paresthesia and pain of extremity Peripheral vascular disease Refused pneumococcal vaccination Secondary hyperparathyroidism of renal origin 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 Sister No problems noted. Sister No problems noted. Family history of problems with anesthesia: No Surgical History Surgical History History of kidney transplant History of Problems with Anesthesia: No Social History Social History Household Members: Spouse, Family and Children Housing: House Do you presently have visiting nurse or other home services: No Alcohol intake: never Patient Tobacco Use Status: Never used Tobacco Smoked in Last 30 Days: No e-Cigarette/Vaping Use: Never Used Use of substances other than those prescribed or required for medical reasons: No Currently Displaying Signs/Symptoms of Drug Intoxication Withdrawal: No Any prior treatment program specific to substance use: No Have you been hit, kicked, punched, or otherwise hurt by someone within the past year? If so, by whom?: No Do you feel safe in your current relationship?: No Is there a partner from a previous relationship who is making you feel unsafe now?: No Are you made to feel afraid or neglected: No Spiritual Healthcare Practices: N/A Confucianism Healthcare Practices: Zoroastrian Cultural Healthcare Practices: N/A Are you DNR?: No Advance Directives: No Advance Directives Information Provided: No Do you have thoughts of harming others: None Do you have a plan to hurt others: No Plan Recently lost weight without trying: No Eating poorly because of decreased appetite: No Nutrition Risks: No Nutritional Risk Poor oral hygiene: No service: No Current occupational status: disabled Current occupation: disability - kidney transplant. Left side dominant Meds Allergies Allergy/AdvReac Type Severity Reaction Status Date / Time No Known Allergies Allergy Verified 10/06/22 12:11 Active Medications: Current Medications Acetaminophen (Acetaminophen 325 Mg Tablet) 650 mg PO Q6H PRN PRN Reason: Pain, Mild (Pain Scale 1-3) Atorvastatin Calcium (Atorvastatin Calcium 40 Mg Tablet) 40 mg PO BEDTIME VERNA Last Admin: 10/12/22 20:45 Dose: 40 mg Docusate Sodium (Docusate Sodium 100 Mg Capsule) 100 mg PO DAILY PRN PRN Reason: Constipation Enoxaparin Sodium (Enoxaparin Sodium 100 Mg/Ml Syringe) 90 mg 1 mg/kg (90 mg) SUBCUT Q12H [facility] Last Admin: 10/12/22 09:13 Dose: 90 mg Glucose (Glucose Gel 15 Gm Gel..Gram.) 15 gm PO Q15M PRN; Protocol PRN Reason: per Hypoglycemia Standing Ord. Dextrose (D10) 250 mls @ 750 mls/hr IV Q15M PRN; Protocol PRN Reason: per Hypoglycemia Standing Ord. Meropenem 500 mg/ Sodium (Chloride) 50 mls @ 100 mls/hr IV Q8H [facility] Last Infusion: 10/13/22 07:14 Dose: Infused Dextrose/Sodium Chloride (D51/2ns) 1,000 mls @ 80 mls/hr IVCONT .[id number] [facility] Last Admin: 10/13/22 09:52 Dose: 80 mls/hr Insulin Glargine (Insulin Glargine,Hum.Rec.Anlog 100 Unit/Ml 10 Ml Vial) 17 unit SUBCUT BEDTIME [facility] Last Admin: 10/12/22 20:42 Dose: 17 unit Insulin Human Lispro (Insulin Lispro 100 Unit/Ml 3 Ml Vial) 0 unit SUBCUT QI DACHS [facility]; Protocol Last Admin: 10/13/22 12:01 Dose: Not Given Mirtazapine (Mirtazapine 7.5 Mg Tablet) 7.5 mg PO BEDTIME [facility] Last Admin: 10/12/22 20:45 Dose: 7.5 mg Morphine Sulfate (Morphine Sulfate 4 Mg/Ml Cartridge) 4 mg IVPUSH Q2H PRN; Protocol PRN Reason: Pain, Severe (Pain Scale 7-10) Mycophenolate Sodium (Mycophenolate Sodium 180 Mg Tablet.Dr) 540 mg PO BID [facility] Last Admin: 10/13/22 09:20 Dose: 540 mg Non-Formulary Medication (Calcifediol [Rayaldee]) 30 mcg PO BEDTIME [facility] Last Admin: 10/12/22 20:43 Dose: 30 mcg Ondansetron HCl (Ondansetron Hcl 4 Mg/2 Ml Vial) 4 mg IVPUSH Q8H PRN PRN Reason: Nausea and Vomiting Oxycodone HCl (Oxycodone Hcl Immed Release 5 Mg Tablet) 5 mg PO Q4H PRN PRN Reason: Pain, Moderate (Pain Scale 4-6 Pharmacy Consult (Consult Rx Perform Med Rec) 1 each MISCELLANE ONCE PRN PRN Reason: Consult order Sodium Chloride (0.9 % Sodium Chloride Flush 3 Ml Syringe) 3 ml IVFLUSH QSHIFT [facility] Last Admin: 10/13/22 09:29 Dose: 3 ml Tacrolimus (Tacrolimus 1 Mg Capsule) 3 mg PO BID [facility] Last Admin: 10/13/22 09:21 Dose: 3 mg Home Medications Medication Instructions Recorded Confirmed Last Taken Type calcifediol 30 mcg capsule,24 30 mcg PO BEDTIME 03/14/20 10/06/22 10/05/22 History hr,extended release (Rayaldee) mycophenolate sodium 180 mg 540 mg PO BID 05/18/20 10/06/22 10/06/22 History tablet,delayed release pen needle, diabetic 31 gauge x #50 ea 06/05/20 12/13/20 Unknown History 3/16 apixaban 5 mg tablet 5 mg PO BID 10/12/20 10/06/22 10/06/22 History lancets 28 gauge (FreeStyle #100 ea 06/26/21 Unknown History Lancets) insulin aspart U-100 100 unit/mL 8 unit subcut TIDAC 10/26/21 10/06/22 10/06/22 History (3 mL) subcutaneous pen (Novolog FlexPen U-100 Insulin aspart) insulin glargine 100 unit/mL (3 21 unit subcut BEDTIME 10/26/21 10/06/22 10/05/22 History mL) subcutaneous pen (Lantus Solostar U-100 Insulin) mirtazapine 7.5 mg tablet 7.5 mg PO BEDTIME 09/26/22 10/06/22 10/05/22 History cefuroxime axetil 250 mg tablet 250 mg PO DAILY 10/06/22 10/06/22 Unknown History doxycycline monohydrate 100 mg 100 mg PO BID 10/06/22 10/06/22 Unknown History capsule rosuvastatin 10 mg tablet 10 mg PO BEDTIME 10/06/22 10/06/22 10/05/22 History tacrolimus 1 mg capsule, 4 mg PO BID 10/06/22 10/06/22 10/06/22 History immediate-release Exam Exam Date and Time: October 13, 2022 1318 Height,Weight and Vital Signs: Height 5 ft 9 in Weight 90.718 kg Last Vital Signs Temp 97.3 F 10/13/22 12:23 Pulse 73 10/13/22 12:23 Resp 20 10/13/22 12:23 BP 133/82 10/13/22 12:23 Pulse Ox 99 10/13/22 12:23 O2 Del Method Room Air 10/13/22 12:23 O2 Flow Rate 99 10/07/22 14:18 Pertinent Lab Results Pertinent Lab Results: Laboratory Tests 10/06/22 10/06/22 10/06/22 12:30 12:30 12:30 WBC 10.5 RBC 4.57 L Hgb 13.0 L Hct 40.5 L MCV 88.6 MCH 28.4 MCHC 32.1 RDW 15.4 Plt Count 338 D MPV 11.6 Immature Gran % (Auto) Cancelled Neut % (Auto) Cancelled Lymph % (Auto) Cancelled [place] % (Auto) Cancelled Eos % (Auto) Cancelled Baso % (Auto) Cancelled Lymph # (Auto) Cancelled [place] # (Auto) Cancelled Eos # (Auto) Cancelled Baso # (Auto) Cancelled Abs Immat Gran (auto) Cancelled Absolute Neuts (auto) Cancelled Absolute Nucleated RBC 0.000 Nucleated RBC % (auto) 0.0 Neutrophils % (Manual) 62 Band Neutrophils % 2 L Lymphocytes % (Manual) 15 L Atypical Lymphs % (Man) 1 Monocytes % (Manual) 13 H Eosinophils % (Manual) 2 Metamyelocytes % 2 Myelocytes % 3 Abs Neuts (Manual) 6.7 Lymphocytes # (Manual) 1.6 Atyp Lymphs # (Manual) 0.1 Monocytes # (Manual) 1.4 H Eosinophils # (Manual) 0.2 Metamyelocytes # 0.2 Myelocytes # 0.3 Platelet Estimate NORMAL Large Platelets Plt Morphology Comment NORMAL RBC Morphology NOTED Braxton Cells 1+ (0-2) PT 21.8 H INR 1.9 H APTT Sodium 141 Potassium 4.0 Chloride 104 Carbon Dioxide 26 Anion Gap 15 BUN 17 H Creatinine 2.29 H Estim Creat Clear Calc 42.4 Estimated GFR 30 POC Glucose Random Glucose 212 H Fasting Glucose Estimat Average Glucose Hemoglobin A1c % Lactic Acid Lactic Acid F/U @ 2Hr Calcium 9.4 Total Bilirubin 0.4 Direct Bilirubin 0.2 AST 18 ALT 26 Alkaline Phosphatase 73 B-Natriuretic Peptide Total Protein 6.6 Albumin 3.7 Vancomycin Trough 10/06/22 10/06/22 10/06/22 12:30 12:30 15:31 WBC RBC Hgb Hct MCV MCH MCHC RDW Plt Count MPV Immature Gran % (Auto) Neut % (Auto) Lymph % (Auto) [place] % (Auto) Eos % (Auto) Baso % (Auto) Lymph # (Auto) [place] # (Auto) Eos # (Auto) Baso # (Auto) Abs Immat Gran (auto) Absolute Neuts (auto) Absolute Nucleated RBC Nucleated RBC % (auto) Neutrophils % (Manual) Band Neutrophils % Lymphocytes % (Manual) Atypical Lymphs % (Man) Monocytes % (Manual) Eosinophils % (Manual) Metamyelocytes % Myelocytes % Abs Neuts (Manual) Lymphocytes # (Manual) Atyp Lymphs # (Manual) Monocytes # (Manual) Eosinophils # (Manual) Metamyelocytes # Myelocytes # Platelet Estimate Large Platelets Plt Morphology Comment RBC Morphology Bee Cells PT INR APTT Sodium Potassium Chloride Carbon Dioxide Anion Gap BUN Creatinine Estim Creat Clear Calc Estimated GFR POC Glucose Random Glucose Fasting Glucose Estimat Average Glucose Hemoglobin A1c % Lactic Acid 2.3 H* Lactic Acid F/U @ 2Hr 1.3 Calcium Total Bilirubin Direct Bilirubin AST ALT Alkaline Phosphatase B-Natriuretic Peptide 43 Total Protein Albumin Vancomycin Trough 10/06/22 10/06/22 10/07/22 19:56 19:56 05:43 WBC 9.4 7.6 RBC 4.83 4.07 L Hgb 13.4 L 11.3 L Hct 42.8 35.7 L MCV 88.6 87.7 MCH 27.7 27.8 MCHC 31.3 31.7 RDW 15.5 15.4 Plt Count 265 295 MPV 11.6 11.3 Immature Gran % (Auto) Cancelled Neut % (Auto) Cancelled Lymph % (Auto) Cancelled Hettinger % (Auto) Cancelled Eos % (Auto) Cancelled Baso % (Auto) Cancelled Lymph # (Auto) Cancelled [place]ting[place] # (Auto) Cancelled Eos # (Auto) Cancelled Baso # (Auto) Cancelled Abs Immat Gran (auto) Cancelled Absolute Neuts (auto) Cancelled Absolute Nucleated RBC 0.000 0.000 Nucleated RBC % (auto) 0.0 0.0 Neutrophils % (Manual) 63 Band Neutrophils % 4 Lymphocytes % (Manual) 22 Atypical Lymphs % (Man) Monocytes % (Manual) 6 Eosinophils % (Manual) Metamyelocytes % 4 Myelocytes % 1 Abs Neuts (Manual) 5.1 Lymphocytes # (Manual) 1.7 Atyp Lymphs # (Manual) Monocytes # (Manual) 0.5 Eosinophils # (Manual) Metamyelocytes # 0.3 Myelocytes # 0.1 Platelet Estimate NORMAL Large Platelets PRESENT Plt Morphology Comment NOTED RBC Morphology NOTED Bee Cells 2+ (3-5) PT 18.3 H INR 1.6 H APTT 37.3 H Sodium Potassium Chloride Carbon Dioxide Anion Gap BUN Creatinine Estim Creat Clear Calc Estimated GFR POC Glucose Random Glucose Fasting Glucose Estimat Average Glucose Hemoglobin A1c % Lactic Acid Lactic Acid F/U @ 2Hr Calcium Total Bilirubin Direct Bilirubin AST ALT Alkaline Phosphatase B-Natriuretic Peptide Total Protein Albumin Vancomycin Trough 10/07/22 10/07/22 10/07/22 05:43 05:43 19:41 WBC RBC Hgb Hct MCV MCH MCHC RDW Plt Count MPV Immature Gran % (Auto) Neut % (Auto) Lymph % (Auto) [place] % (Auto) Eos % (Auto) Baso % (Auto) Lymph # (Auto) [place] # (Auto) Eos # (Auto) Baso # (Auto) Abs Immat Gran (auto) Absolute Neuts (auto) Absolute Nucleated RBC Nucleated RBC % (auto) Neutrophils % (Manual) Band Neutrophils % Lymphocytes % (Manual) Atypical Lymphs % (Man) Monocytes % (Manual) Eosinophils % (Manual) Metamyelocytes % Myelocytes % Abs Neuts (Manual) Lymphocytes # (Manual) Atyp Lymphs # (Manual) Monocytes # (Manual) Eosinophils # (Manual) Metamyelocytes # Myelocytes # Platelet Estimate Large Platelets Plt Morphology Comment RBC Morphology Braxton Cells PT 17.6 H INR 1.5 H APTT Sodium 142 Potassium 3.8 Chloride 110 H Carbon Dioxide 23 Anion Gap 13 BUN 15 Creatinine 1.95 H Estim Creat Clear Calc 49.8 Estimated GFR 36 POC Glucose Random Glucose 207 H Fasting Glucose Estimat Average Glucose 206 Hemoglobin A1c % 8.8 Lactic Acid Lactic Acid F/U @ 2Hr Calcium 8.1 L D Total Bilirubin Direct Bilirubin AST ALT Alkaline Phosphatase B-Natriuretic Peptide Total Protein Albumin Vancomycin Trough 10/07/22 10/07/22 10/08/22 19:42 22:18 07:30 WBC RBC Hgb Hct MCV MCH MCHC RDW Plt Count MPV Immature Gran % (Auto) Neut % (Auto) Lymph % (Auto) [place]er % (Auto) Eos % (Auto) Baso % (Auto) Lymph # (Auto) [place]er # (Auto) Eos # (Auto) Baso # (Auto) Abs Immat Gran (auto) Absolute Neuts (auto) Absolute Nucleated RBC Nucleated RBC % (auto) Neutrophils % (Manual) Band Neutrophils % Lymphocytes % (Manual) Atypical Lymphs % (Man) Monocytes % (Manual) Eosinophils % (Manual) Metamyelocytes % Myelocytes % Abs Neuts (Manual) Lymphocytes # (Manual) Atyp Lymphs # (Manual) Monocytes # (Manual) Eosinophils # (Manual) Metamyelocytes # Myelocytes # Platelet Estimate Large Platelets Plt Morphology Comment RBC Morphology Braxton Cells PT INR APTT Sodium Potassium Chloride Carbon Dioxide Anion Gap BUN Creatinine Estim Creat Clear Calc Estimated GFR POC Glucose 217 H 241 H 146 H Random Glucose Fasting Glucose Estimat Average Glucose Hemoglobin A1c % Lactic Acid Lactic Acid F/U @ 2Hr Calcium Total Bilirubin Direct Bilirubin AST ALT Alkaline Phosphatase B-Natriuretic Peptide Total Protein Albumin Vancomycin Trough 10/08/22 10/08/22 10/08/22 13:01 13:01 20:08 WBC 7.3 RBC 4.15 L Hgb 11.7 L Hct 37.1 L MCV 89.4 MCH 28.2 MCHC 31.5 RDW 15.5 Plt Count 299 MPV 10.7 Immature Gran % (Auto) Neut % (Auto) Lymph % (Auto) [place]er % (Auto) Eos % (Auto) Baso % (Auto) Lymph # (Auto) [place]tinger # (Auto) Eos # (Auto) Baso # (Auto) Abs Immat Gran (auto) Absolute Neuts (auto) Absolute Nucleated RBC 0.000 Nucleated RBC % (auto) 0.0 Neutrophils % (Manual) Band Neutrophils % Lymphocytes % (Manual) Atypical Lymphs % (Man) Monocytes % (Manual) Eosinophils % (Manual) Metamyelocytes % Myelocytes % Abs Neuts (Manual) Lymphocytes # (Manual) Atyp Lymphs # (Manual) Monocytes # (Manual) Eosinophils # (Manual) Metamyelocytes # Myelocytes # Platelet Estimate Large Platelets Plt Morphology Comment RBC Morphology Bee Cells PT INR APTT Sodium 142 Potassium 4.2 Chloride 107 Carbon Dioxide 26 Anion Gap 13 BUN 10 Creatinine 1.77 H Estim Creat Clear Calc 54.9 Estimated GFR 41 POC Glucose Random Glucose 188 H Fasting Glucose Estimat Average Glucose Hemoglobin A1c % Lactic Acid Lactic Acid F/U @ 2Hr Calcium 8.2 L Total Bilirubin Direct Bilirubin AST ALT Alkaline Phosphatase B-Natriuretic Peptide Total Protein Albumin Vancomycin Trough 6.1 L 10/09/22 10/09/22 10/10/22 06:29 06:29 04:49 WBC 7.2 7.3 RBC 4.32 L 4.35 L Hgb 12.2 L 12.3 L Hct 38.3 L 38.8 L MCV 88.7 89.2 MCH 28.2 28.3 MCHC 31.9 31.7 RDW 15.6 15.5 Plt Count 291 279 MPV 11.0 11.0 Immature Gran % (Auto) Neut % (Auto) Lymph % (Auto) [place]er % (Auto) Eos % (Auto) Baso % (Auto) Lymph # (Auto) [place]tinger # (Auto) Eos # (Auto) Baso # (Auto) Abs Immat Gran (auto) Absolute Neuts (auto) Absolute Nucleated RBC 0.000 0.000 Nucleated RBC % (auto) 0.0 0.0 Neutrophils % (Manual) Band Neutrophils % Lymphocytes % (Manual) Atypical Lymphs % (Man) Monocytes % (Manual) Eosinophils % (Manual) Metamyelocytes % Myelocytes % Abs Neuts (Manual) Lymphocytes # (Manual) Atyp Lymphs # (Manual) Monocytes # (Manual) Eosinophils # (Manual) Metamyelocytes # Myelocytes # Platelet Estimate Large Platelets Plt Morphology Comment RBC Morphology Braxton Cells PT INR APTT Sodium 141 Potassium 4.0 Chloride 108 Carbon Dioxide 25 Anion Gap 12 BUN 11 Creatinine 1.55 H Estim Creat Clear Calc 62.7 Estimated GFR 48 POC Glucose Random Glucose Fasting Glucose 123 H Estimat Average Glucose Hemoglobin A1c % Lactic Acid Lactic Acid F/U @ 2Hr Calcium 8.3 L Total Bilirubin Direct Bilirubin AST ALT Alkaline Phosphatase B-Natriuretic Peptide Total Protein Albumin Vancomycin Trough 10/10/22 10/13/22 05 04:49 06:34 06:34 WBC 8.8 RBC 4.47 L Hgb 12.8 L Hct 39.8 L MCV 89.0 MCH 28.6 MCHC 32.2 RDW 15.8 Plt Count 242 MPV 10.8 Immature Gran % (Auto) Neut % (Auto) Lymph % (Auto) [place] % (Auto) Eos % (Auto) Baso % (Auto) Lymph # (Auto) [place]tinger # (Auto) Eos # (Auto) Baso # (Auto) Abs Immat Gran (auto) Absolute Neuts (auto) Absolute Nucleated RBC 0.000 Nucleated RBC % (auto) 0.0 Neutrophils % (Manual) Band Neutrophils % Lymphocytes % (Manual) Atypical Lymphs % (Man) Monocytes % (Manual) Eosinophils % (Manual) Metamyelocytes % Myelocytes % Abs Neuts (Manual) Lymphocytes # (Manual) Atyp Lymphs # (Manual) Monocytes # (Manual) Eosinophils # (Manual) Metamyelocytes # Myelocytes # Platelet Estimate Large Platelets Plt Morphology Comment RBC Morphology Bee Cells PT INR APTT Sodium 140 138 Potassium 3.8 4.0 Chloride 108 106 Carbon Dioxide 26 24 Anion Gap 10 L 12 BUN 12 16 Creatinine 1.61 H 1.49 H Estim Creat Clear Calc 60.4 65.2 Estimated GFR 45 50 POC Glucose Random Glucose Fasting Glucose 121 H 115 H Estimat Average Glucose Hemoglobin A1c % Lactic Acid Lactic Acid F/U @ 2Hr Calcium 8.3 L 8.6 Total Bilirubin Direct Bilirubin AST ALT Alkaline Phosphatase B-Natriuretic Peptide Total Protein Albumin Vancomycin Trough 10/13/22 12:22 WBC RBC Hgb Hct MCV MCH MCHC RDW Plt Count MPV Immature Gran % (Auto) Neut % (Auto) Lymph % (Auto) Hettinger % (Auto) Eos % (Auto) Baso % (Auto) Lymph # (Auto) [place]tinger # (Auto) Eos # (Auto) Baso # (Auto) Abs Immat Gran (auto) Absolute Neuts (auto) Absolute Nucleated RBC Nucleated RBC % (auto) Neutrophils % (Manual) Band Neutrophils % Lymphocytes % (Manual) Atypical Lymphs % (Man) Monocytes % (Manual) Eosinophils % (Manual) Metamyelocytes % Myelocytes % Abs Neuts (Manual) Lymphocytes # (Manual) Atyp Lymphs # (Manual) Monocytes # (Manual) Eosinophils # (Manual) Metamyelocytes # Myelocytes # Platelet Estimate Large Platelets Plt Morphology Comment RBC Morphology Bee Cells PT INR APTT Sodium Potassium Chloride Carbon Dioxide Anion Gap BUN Creatinine Estim Creat Clear Calc Estimated GFR POC Glucose 134 H Random Glucose Fasting Glucose Estimat Average Glucose Hemoglobin A1c % Lactic Acid Lactic Acid F/U @ 2Hr Calcium Total Bilirubin Direct Bilirubin AST ALT Alkaline Phosphatase B-Natriuretic Peptide Total Protein Albumin Vancomycin Trough Airway Mallampati Class: II TM Dist: >3cm Neck ROM: Full Heart: rrr Lungs: cta Assessment and Plan Assessment Anesthesia Assessment: Anesthesia Plan Discussed and Chart Reviewed Final Anesthetic Review Family History of Problems with Anesthesia: No History of Problems with Anesthesia: No NPO: Yes ASA Class: III Final Preanesthetic Review: No Changes in Pt Med Stat, Meds/Allgs Chart Reviewed and Consent Obtained/Reviewed Patient Risk: Intermediate Procedure Risk: Intermediate Anesthetic Plan Anesthetic Plan: MAC: Disposition: Standard PACU
--- NOTE | 2022-10-13 14:24 | W.PM.OPN ---
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 Dental Ceramist Assistant: None Anesthesia: General Specimens: 1 Drains: None Estimated blood loss: Minimal Indications: 52-year-old gentleman with history of diabetes nonhealing 4th toe ulcer presents for amputation. Now presents for amputation. The case was discussed with the patient's as well before proceeding. The patient has signed the informed consent after reviewing risks, complications, benefits, and alternatives previously discussed with the patient. The patient was given the opportunity to ask any additional questions or voice any concerns. All questions were answered to the patient's satisfaction. Procedure in detail: Patient was brought to the operating room prior to which a time-out was called for patient identification site verification. Right foot was prepped and draped in standard surgical fashion. [place] incision over the 4th toe on the right side was undertaken. This was brought all the way down to the metatarsal head. The toe was removed in its entirety. Once this was undertaken the distal portion of bone was sent off as specimen. We then thoroughly irrigated out the wound bed. Electrocautery was used for hemostasis. Deep layer was reapproximated using 2 0 poly Sorb. Superficial layer with a 2 0 nylon in a mattress fashion. Xeroform and a sterile dressing were applied. At the end the case sponge instrument counts were correct. Patient tolerated the procedure well. Returned to recovery with stable vitals. This note is constructed using voice recognition software. While every effort has been made to ensure accuracy, workforce development assistant errors may have been included. Thank you for allowing me to participate in the care of your patient. Yours sincerely, Bart Marrero MD, FACS, R.P.V.I.
[2022-10-13 15:57] LABS: Glucose, Whole Blood 155 mg/dL (60-115)
[2022-10-13] MEDS: Insulin Lispro 100 UNIT/ML 3 ML VIAL SUBCUT ×2 (16:16→19:56)
[2022-10-13] MEDS: Atorvastatin Calcium 40 MG TABLET PO (19:54)
[2022-10-13] MEDS: Mirtazapine 7.5 MG TABLET PO (19:54)
[2022-10-13] MEDS: Enoxaparin Sodium 100 MG/ML SYRINGE 90 MG SUBCUT (19:54)
[2022-10-13] MEDS: Insulin Glargine,Hum.rec.anlog 100 UNIT/ML 10 ML VIAL 17 UNIT SUBCUT (19:56)
--- NOTE | 2022-10-13 20:25 | PC.NURSE ---
Pt manages his insulin pump, reported BS 193, 2 units of insulin lispro admin.
[2022-10-14] VITALS (7 sets, daily range): BP systolic 115–141; BP diastolic 63–74; PULSE 77–92; RESP 16–20; TEMP 36.4–37.7; O2SAT 94–98
[2022-10-14] MEDS: Insulin Lispro 100 UNIT/ML 3 ML VIAL SUBCUT ×4 (08:14→21:23)
[2022-10-14] MEDS: Enoxaparin Sodium 100 MG/ML SYRINGE 90 MG SUBCUT (08:18)
[2022-10-14] MEDS: 0.9 % Sodium Chloride Flush 3 ML SYRINGE IVFLUSH ×3 (08:20→23:12)
[2022-10-14 08:33] LABS: Hematocrit 44.6 % (42.0-52.0); Hemoglobin 13.8 g/dl (14.0-18.0); Mean Corpuscular HGB Conc 30.9 g/dl (31.0-36.0); Mean Corpuscular Hemoglobin 27.9 pg (27.0-33.0); Mean Corpuscular Volume 90.1 fL (80.0-98.0); Mean Platelet Volume 10.7 fL (9.4-12.4); Platelet Count 244 X10*3/uL (160-400); Red Blood Count 4.95 X10*6/uL (4.60-5.80)
[2022-10-14 08:50] LABS: Blood Urea Nitrogen 14 mg/dL (9-16); Creatinine Clr Calc Pharmacy 61.9; Estimated Glomerular Filt Rate 47; Glucose Fasting 127 mg/dL (60-99)
[2022-10-14 09:07] LABS: Anion Gap 13 (12-20); Carbon Dioxide 27 mmol/L (22-29); Chloride 104 mmol/L (96-108); Sodium 139 mmol/L (135-145)
--- NOTE | 2022-10-14 09:12 | P.PNIM_ITS ---
Subjective Subjective Date of Service: 10/14/22 Interval History: nausea Physical Exam Vital Signs: Vital Signs: Last Vital Signs Temp 97.8 F 10/14/22 07:22 Pulse 83 10/14/22 07:22 Resp 20 10/14/22 07:22 BP 141/72 H 10/14/22 07:22 Pulse Ox 96 10/14/22 07:22 O2 Del Method Room Air 10/14/22 07:22 O2 Flow Rate 99 10/07/22 14:18 BMI result Body Mass Index 29.5 General: AO X 3, no acute distress Resp: CTA bilateral, no accessory muscles used CVS: S1,S2,RRR GI: soft, non tender, non distended Neuro: motor grossly intact, alert Psych: appropriate affect, appropriate insight Objective Data Active Medications Acetaminophen (Acetaminophen 325 Mg Tablet) 650 mg PO Q6H PRN PRN Reason: Pain, Mild (Pain Scale 1-3) Atorvastatin Calcium (Atorvastatin Calcium 40 Mg Tablet) 40 mg PO BEDTIME [facility] Last Admin: 10/13/22 19:54 Dose: 40 mg Documented By: LAKEISHA Docusate Sodium (Docusate Sodium 100 Mg Capsule) 100 mg PO DAILY PRN PRN Reason: Constipation Enoxaparin Sodium (Enoxaparin Sodium 100 Mg/Ml Syringe) 90 mg 1 mg/kg (90 mg) SUBCUT Q12H [facility] Last Admin: 10/14/22 08:18 Dose: 90 mg Documented By: BOY Glucose (Glucose Gel 15 Gm Gel..Gram.) 15 gm PO Q15M PRN; Protocol PRN Reason: per Hypoglycemia Standing Ord. Dextrose (D10) 250 mls @ 750 mls/hr IV Q15M PRN; Protocol PRN Reason: per Hypoglycemia Standing Ord. Meropenem 500 mg/ Sodium (Chloride) 50 mls @ 100 mls/hr IV Q8H [facility] Last Infusion: 10/14/22 07:11 Dose: 0 mls/hr Documented By: LAKEISHA Insulin Glargine (Insulin Glargine,Hum.Rec.Anlog 100 Unit/Ml 10 Ml Vial) 17 unit SUBCUT BEDTIME [facility] Last Admin: 10/13/22 19:56 Dose: 17 unit Documented By: LAKEISHA Insulin Human Lispro (Insulin Lispro 100 Unit/Ml 3 Ml Vial) 0 unit SUBCUT QIDACHS [facility]; Protocol Last Admin: 10/14/22 08:14 Dose: 2 unit Documented By: BOY Comments: blood sugar 159 per pt's meter Mirtazapine (Mirtazapine 7.5 Mg Tablet) 7.5 mg PO BEDTIME [facility] Last Admin: 10/13/22 19:54 Dose: 7.5 mg Documented By: LAKEISHA Morphine Sulfate (Morphine Sulfate 4 Mg/Ml Cartridge) 4 mg IVPUSH Q2H PRN; Protocol PRN Reason: Pain, Severe (Pain Scale 7-10) Mycophenolate Sodium (Mycophenolate Sodium 180 Mg Tablet.) 540 mg PO BID [facility] Last Admin: 10/13/22 19:55 Dose: 540 mg Documented By: LAKEISHA Non-Formulary Medication (Calcifediol [Rayaldee]) 30 mcg PO BEDTIME [facility] Last Admin: 10/13/22 19:58 Dose: 30 mcg Documented By: LAKEISHA Ondansetron HCl (Ondansetron Hcl 4 Mg/2 Ml Vial) 4 mg IVPUSH Q8H PRN PRN Reason: Nausea and Vomiting Oxycodone HCl (Oxycodone Hcl Immed Release 5 Mg Tablet) 5 mg PO Q4H PRN PRN Reason: Pain, Moderate (Pain Scale 4-6 Pharmacy Consult (Consult Rx Perform Med Rec) 1 each MISCELLANE ONCE PRN PRN Reason: Consult order Sodium Chloride (0.9 % Sodium Chloride Flush 3 Ml Syringe) 3 ml IVFLUSH QSHIFT [facility] Last Admin: 10/14/22 08:20 Dose: 3 ml Documented By: BOY Tacrolimus (Tacrolimus 1 Mg Capsule) 3 mg PO BID [facility] Last Admin: 10/13/22 20:01 Dose: 3 mg Documented By: LAKEISHA Labs 10/14/22 08:05 10/14/22 08:05 Labs: Laboratory Results - last 24 hr 10/13/22 10/13/22 10/14/22 12:22 15:48 08:05 MCV 90.1 MCH 27.9 MCHC 30.9 L RDW 16.0 Plt Count 244 MPV 10.7 Absolute Nucleated RBC 0.000 Nucleated RBC % (auto) 0.0 Anion Gap Estim Creat Clear Calc Estimated GFR POC Glucose 134 H 155 H Fasting Glucose Calcium 10/14/22 08:05 MCV MCH MCHC RDW Plt Count MPV Absolute Nucleated RBC Nucleated RBC % (auto) Anion Gap 13 Estim Creat Clear Calc 61.9 Estimated GFR 47 POC Glucose Fasting Glucose 127 H Calcium 9.0 Microbiology Microbiology Results: Microbiology 10/13/22 Unknown Gram Stain - Final Bone Assessment and Plan (1) Osteomyelitis: Status: Acute (2) Wound of right foot: Status: Acute Plan 52-year-old male with history of testicular cancer stage III completed chemo 10/2020, insulin-dependent type 1 diabetes, paroxysmal atrial fibrillation anticoagulated with Eliquis, CKD stage 4 s/p left-sided renal transplant on immunosuppressive therapy, peripheral vascular disease, hyperlipidemia, history of osteomyelitis of the left foot, anemia of chronic disease, secondary hyperparathyroidism admitted for acute osteomyelitis of the right 3rd and 4th toes. acute osteomyelitis Right 3rd-4th toes XRay showing new bony erosions 3rd proximal phalanx and medial surfaces of the distal 4th metatarsal and proximal 4th phalanx Continue IV merem arterial duplex RLE, ?Atherosclerotic disease of the SFA without hemodynamically significant stenosis. Occluded posterior tibial artery. s/p angio 10/08/22 - PVD with right posterior tibial artery occulusion but with reconstitution, no intervention on Lovenox full dose s/p Right 4th toe amputation 10/13/22 still with residual OM, plan for leach 10/14/22 and 6 weeks iv ertapenem (end november 16, 2022), plans to do abx at home acute stage I ulceration 4th right toe and chronic a stage II ulcer related to uncontrolled type 2 diabetes and PAD Follows with wound care center insulin-dependent type 1 diabetes with hyperglycemia hemoglobin A1c 8.8 dose adjusted basal insulin Humalog on sliding scale diabetic diet POC glucose CKD stage 4 S/p left renal transplant Continue mycophenolate and tacrolimus appreciate renal input renal function baseline paroxysmal atrial fibrillation resume eliquis after leach not on rate control medication HLD continue statin secondary hyperparathyroidism continue rayaldee anemia of chronic disease H/H baseline, above transfusion threshold DVT prophylaxis- Lovenox (on hold for leach) Full code reason for continued hospitalization:iv abx, setting up for home abx Time Spent With Patient Time: Total time managing care of this patient today ____ minutes. Quality Stroke Does the patient have a stroke diagnosis?: No VTE Prior VTE?: No VTE Risk Level:: Medical - moderate - high VTE Device Contraindication: Treatment Not Indicated VTE Drug Contraindication: N/A - Med Ordered
[2022-10-14] MEDS: Tacrolimus 1 MG CAPSULE 3 MG PO ×2 (09:23→21:22)
[2022-10-14] MEDS: Mycophenolate Sodium 180 MG TABLET.DR 540 MG PO ×2 (09:23→21:22)
--- NOTE | 2022-10-14 10:56 | PM.PNNEP ---
Subjective Subjective Date of Service: 10/15/22 Interval history: nausea Physical Exam Vital Signs: Vital Signs: Last Vital Signs Temp 98.7 F 10/14/22 10:49 Pulse 78 10/14/22 10:49 Resp 20 10/14/22 10:49 BP 126/69 10/14/22 10:49 Pulse Ox 94 10/14/22 10:49 O2 Del Method Room Air 10/14/22 10:49 O2 Flow Rate 99 10/07/22 14:18 BMI result Body Mass Index 29.5 Const: Other: Constitutional : Awake, interactive, not in distress Neck : Normal inspection, Supple Cardiovascular : RRR, no JVP, no lower extremity edema Respiratory : good bilateral air entry, no crackles, wheezes or rhonchi Gastrointestinal: soft, lax, Normal bowel sounds, Non tender Skin : Warm, Dry, Rt foot moran ulcer at 4th metatarsal base covered with dressing with mild edema and no significant tenderness Neurological : Alert & oriented x3, No focal deficit Objective Data Labs 10/14/22 08:05 10/14/22 08:05 Labs: Laboratory Results - last 24 hr 10/13/22 10/13/22 10/14/22 12:22 15:48 08:05 WBC 11.0 H RBC 4.95 Hgb 13.8 L Hct 44.6 MCV 90.1 MCH 27.9 MCHC 30.9 L RDW 16.0 Plt Count 244 MPV 10.7 Absolute Nucleated RBC 0.000 Nucleated RBC % (auto) 0.0 Sodium Potassium Chloride Carbon Dioxide Anion Gap BUN Creatinine Estim Creat Clear Calc Estimated GFR POC Glucose 134 H 155 H Fasting Glucose Calcium 10/14/22 08:05 WBC RBC Hgb Hct MCV MCH MCHC RDW Plt Count MPV Absolute Nucleated RBC Nucleated RBC % (auto) Sodium 139 Potassium 5.0 D Chloride 104 Carbon Dioxide 27 Anion Gap 13 BUN 14 Creatinine 1.57 H Estim Creat Clear Calc 61.9 Estimated GFR 47 POC Glucose Fasting Glucose 127 H Calcium 9.0 Microbiology Microbiology Results: Microbiology 10/13/22 Unknown Bone Gram Stain - Final 10/13/22 Unknown Bone Routine Culture - Preliminary Culture in progress. 10/13/22 Unknown Bone Anaerobic Culture - Preliminary Culture in progress. 10/06/22 15:31 Blood - Venous Blood Culture - Final No growth after 5 days. 10/06/22 12:30 Blood - Venous Blood Culture - Final No growth after 5 days. Procedures Date of Service Date of Service: 10/14/22 Assessment & Plan Assessment and plan (1) Acute kidney injury superimposed on CKD: Status: Acute Assessment and Plan: GIA on CKD in a renal transplant due to tubular injury Serum creatinine better & close to baseline now No NSAID's/ACEI/ARB Keep I > O . C/W current dose of tacrolimus K is 5.0 Keep on low K diet C/W rest of current supportive management Await Gamaliel Shall closely follow up Time Spent With Patient Time: Total time managing care of this patient today ____ minutes. Progress Note: Quality Stroke Does the patient have a stroke diagnosis?: No
--- NOTE | 2022-10-14 11:43 | MHC.CLN ---
DIET CHANGED TO REGULAR PER MD AND NURSE NOTED RENAL RECOMMENDATIONS FOR LOW K+ DIET LIBERALIZED DIET APPROVED PER MD
--- NOTE | 2022-10-14 13:44 | HO.VASCPN ---
Subjective Subjective Date of Service: 10/14/22 Patient reports: no new complaints and feels better Interval history: Patient doing extremely well status post right 4th toe amp. Denies any significant pain. Reports he is feeling much better. Patient's family is at bedside no events overnight. Now for follow-up. Physical Exam Vital Signs: Vital Signs: Last Vital Signs Temp 98.7 F 10/14/22 10:49 Pulse 78 10/14/22 10:49 Resp 20 10/14/22 10:49 BP 126/69 10/14/22 10:49 Pulse Ox 94 10/14/22 10:49 O2 Del Method Room Air 10/14/22 10:49 O2 Flow Rate 99 10/07/22 14:18 BMI result Body Mass Index 29.5 Const: General: cooperative, healthy appearing and no acute distress Orientation/consciousness: oriented to person, oriented to place and oriented to time HEENT: Head: Yes normal to inspection Neck: Carotids: no bruits Chest: Chest palpation & inspection: normal inspection of the chest Resp: Effort & Inspection: normal respiratory effort and able to speak in complete sentences Auscultation: clear to auscultation bilaterally Cardio: Rate: regular rate Heart sounds: S1 normal heart sound present and S2 normal heart sound present GI: Inspection: Yes normal to inspection Skin: Other: Right foot dressing clean dry and intact General skin exam: no rashes or lesions noted Wounds: amputation site Neuro: General: oriented to person, oriented to place, oriented to time and CN's II-XI intact bilaterally Extrem: General: Yes normal to inspection, Yes full ROM and Yes no clubbing, cyanosis or edema Psych: Appearance: grossly normal and well kempt Speech and movement: Normal speech and movement present Affect: normal affect Progress Note: A&P Assessment and plan (1) Diabetic ulcer of right foot: Status: Acute Plan Doing well status post amputation. Will plan for dressing change tomorrow. Bone culture was taken. Patient is scheduled for Alston catheter for tomorrow. Will follow up with patient tomorrow. Thank you for allowing us to assist in his care. Time Spent With Patient Time: Total time managing care of this patient today ____ minutes. Procedures Date of Service Date of Service: 10/14/22 Quality Stroke Does the patient have a stroke diagnosis?: No VTE Prior VTE?: No VTE Risk Level:: Medical - moderate - high VTE Device Contraindication: Treatment Not Indicated VTE Drug Contraindication: N/A - Med Ordered
--- NOTE | 2022-10-14 13:59 | HO.POSTANES ---
Post Anesthesia Evaluation Post Anesthesia Evaluation Vital Signs: Vital Signs Temp Pulse Resp BP Pulse Ox O2 Del Method 10/14/22 10:49 98.7 F 78 20 126/69 94 Room Air 10/14/22 07:22 97.8 F 83 20 141/72 H 96 Room Air 10/14/22 04:00 99.8 F 79 16 131/63 95 Room Air Anesthesia: Monitored Mental Status: Awake Pain Control: Satisfactory Nausea/Vomiting: None Hydration: Adequate Anesthesia-Related Issues: No Anes. Related Issues
--- NOTE | 2022-10-14 15:16 | PC.NURSE ---
Pt has been repeatedly educated on the process of npo after midnight for a procedure that may not take place until the afternoon the following day. It was explained that the hospitalist have no control over OR scheduling. Also explained that what he sees in the pt portal may not be in real time. Pt remains upset at the length of time he can not eat.
[2022-10-14] MEDS: Lidocaine HCl 1%/Epi 1:100,000 10 ML VIAL INFILTRATI (18:12)
[2022-10-14] MEDS: Lidocaine HCl 1 % MPF 30 ML VIAL 20 ML SUBCUT (18:17)
[2022-10-14] MEDS: Mirtazapine 7.5 MG TABLET PO (21:22)
[2022-10-14] MEDS: Atorvastatin Calcium 40 MG TABLET PO (21:22)
[2022-10-14] MEDS: Insulin Glargine,Hum.rec.anlog 100 UNIT/ML 10 ML VIAL 17 UNIT SUBCUT (21:23)
[2022-10-15 03:30] VITALS: BP 120/57; PULSE 76; RESP 20; TEMP 36.8; O2SAT 95
[2022-10-15 07:40] VITALS: BP 160/86; PULSE 73; RESP 20; TEMP 36.4; O2SAT 95
[2022-10-15] MEDS: Mycophenolate Sodium 180 MG TABLET.DR 540 MG PO (08:33)
[2022-10-15] MEDS: Tacrolimus 1 MG CAPSULE 3 MG PO (08:33)
[2022-10-15] MEDS: 0.9 % Sodium Chloride Flush 3 ML SYRINGE IVFLUSH (08:36)
--- NOTE | 2022-10-15 09:00 | MHC.CM.PN ---
EMR REVIEWED, PLAN FOR TUNNEL CATH PLACEMENT THIS AFTERNOON, ANTIC PT WILL D/C BY TOMORROW W/NEW [facility] AND [facility] FOR 6WKS OF IV ERTAPENEM, CM WILL CONT TO FOLLOW D/C NEEDS.
[2022-10-15 09:39] LABS: Tacrolimus Prograf 7.1 NG/ML ((5-20))
--- NOTE | 2022-10-15 10:14 | P.PNNP_ITS ---
Subjective Subjective Date of Service: 10/25/22 Interval history: nausea Physical Exam Vital Signs: Vital Signs: Last Vital Signs Temp 97.5 F 10/15/22 07:40 Pulse 73 10/15/22 07:40 Resp 20 10/15/22 07:40 BP 160/86 H 10/15/22 07:40 Pulse Ox 95 10/15/22 07:40 O2 Del Method Room Air 10/15/22 07:40 O2 Flow Rate 99 10/07/22 14:18 BMI result Body Mass Index 29.5 Const: Other: Constitutional : Awake, interactive, not in distress Neck : Normal inspection, Supple Cardiovascular : RRR, no JVP, no lower extremity edema Respiratory : good bilateral air entry, no crackles, wheezes or rhonchi Gastrointestinal: soft, lax, Normal bowel sounds, Non tender Skin : Warm, Dry, Rt foot moran ulcer at 4th metatarsal base covered with dressing with mild edema and no significant tenderness Neurological : Alert & oriented x3, No focal deficit General: comfortable and no acute distress Orientation/consciousness: patient oriented x3 Limitations: No language barrier HEENT: Head: Yes normal to inspection Face and sinus: Yes normal facial exam Mouth: Normal oral and palatal mucosa present Teeth and gingiva: dentition normal Eyes: General: appearance normal, both eyes and all related structures P upils: Equal, round and reactive pupils present EOM: EOMs intact bilaterally Neck: Neck: Yes supple Carotids: no bruits Chest: Chest palpation & inspection: normal inspection of the chest Resp: Effort & Inspection: normal respiratory effort and able to speak in complete sentences Auscultation: diminished lung sounds Cardio: Other: Bilateral DP signal Rate: regular rate Rhythm: regular rhythm Heart sounds: S1 normal heart sound present and S2 normal heart sound present Bruits: no carotid bruits Peripheral pulses: Peripheral pulses 2+ throughout GI: Other: No tenderness over renal transplant Inspection: Yes normal to inspection Palpation (GI): Soft to palpation : General: Yes no CVA tenderness Back/Spine/Pelvis: Back: no CVA tenderness Skin: Other: Right foot dressing clean dry and intact General skin exam: no rashes or lesions noted Wounds: no wounds and amputation site Hair: normal Neuro: General: patient oriented x3 Cranial nerves: Yes CN's II-XII intact bilaterally, Yes Equal, round and reactive pupils present and Yes Normal hearing present Cognition (Neuro): normal cognition Motor exam (neuro): 5/5 motor strength present throughout Extrem: Other: venous exam: No significant superficial varicosities or spider telangiectasias, minimal edema General: Yes normal to inspection, Yes full ROM, Yes no clubbing, cyanosis or edema, No clubbing, No cyanosis and No edema Objective Data Labs 10/14/22 08:05 10/14/22 08:05 Labs: Laboratory Results - last 24 hr 10/14/22 08:05 Tacrolimus 7.1 Microbiology Microbiology Results: Microbiology 10/13/22 Unknown Bone Gram Stain - Final 10/13/22 Unknown Bone Routine Culture - Preliminary Culture in progress. 10/13/22 Unknown Bone Anaerobic Culture - Preliminary Culture in progress. 10/06/22 15:31 Blood - Venous Blood Culture - Final No growth after 5 days. 10/06/22 12:30 Blood - Venous Blood Culture - Final No growth after 5 days. Procedures Date of Service Date of Service: 10/15/22 Assessment & Plan Assessment and plan (1) Acute kidney injury superimposed on CKD: Status: Resolved Assessment and Plan: GIA on CKD in a renal transplant due to tubular injury Serum creatinine better & close to baseline now No NSAID's/ACEI/ARB Keep I > O . C/W current dose of tacrolimus K is 5.0 Keep on low K diet tacro level 7.1 C/W rest of current supportive management s/p Alston Significant vascular disease per ( probably from previous catheter insertions) Shall closely follow up Time Spent With Patient Time: Total time managing care of this patient today ____ minutes. Progress Note: Quality Stroke Does the patient have a stroke diagnosis?: No
--- NOTE | 2022-10-15 11:04 | HO.VASCPN ---
Subjective Subjective Date of Service: 10/15/22 Patient reports: no new complaints and feels better Interval history: Patient doing well status post right 4th toe amputation. No events overnight. Pain well controlled. Now for postoperative follow-up and dressing change. Physical Exam Vital Signs: Vital Signs: Last Vital Signs Temp 97.5 F 10/15/22 07:40 Pulse 73 10/15/22 07:40 Resp 20 10/15/22 07:40 BP 160/86 H 10/15/22 07:40 Pulse Ox 95 10/15/22 07:40 O2 Del Method Room Air 10/15/22 07:40 O2 Flow Rate 99 10/07/22 14:18 BMI result Body Mass Index 29.5 Const: General: cooperative, healthy appearing and no acute distress Orientation/consciousness: oriented to person, oriented to place and oriented to time HEENT: Head: Yes normal to inspection Neck: Carotids: no bruits Chest: Chest palpation & inspection: normal inspection of the chest Resp: Effort & Inspection: normal respiratory effort and able to speak in complete sentences Auscultation: clear to auscultation bilaterally Cardio: Rate: regular rate Heart sounds: S1 normal heart sound present and S2 normal heart sound present GI: Inspection: Yes normal to inspection Skin: Other: Amputation incision site closed and healing well. Flap well take. He does have this plantar ulceration which is approximately 2 cm in diameter excellent granulation base. Overall wound appears clean. General skin exam: no rashes or lesions noted Wounds: no wounds Neuro: General: oriented to person, oriented to place, oriented to time and CN's II-XI intact bilaterally Extrem: General: Yes normal to inspection, Yes full ROM and Yes no clubbing, cyanosis or edema Psych: Appearance: grossly normal and well kempt Speech and movement: Normal speech and movement present Affect: normal affect Progress Note: A&P Assessment and plan (1) Diabetic ulcer of right foot: Status: Acute Assessment and Plan: In short patient is doing extremely well status post toe amputation. Awaiting bone culture. Would treat as osteomyelitis and will require long-term IV antibiotics. Wound care instructions written. Stable from my perspective for discharge. He can see me as an outpatient in approximately 2 weeks time for suture and staple removal. Thank you for allowing me to participate in his care. If there are any questions or concerns please do not hesitate to contact us. Time Spent With Patient Time: Total time managing care of this patient today ____ minutes. Procedures Date of Service Date of Service: 10/15/22 Quality Stroke Does the patient have a stroke diagnosis?: No VTE Prior VTE?: No VTE Risk Level:: Medical - moderate - high VTE Device Contraindication: Treatment Not Indicated VTE Drug Contraindication: N/A - Med Ordered
[2022-10-15 11:16] VITALS: BP 118/64; PULSE 84; RESP 20; TEMP 36.7; O2SAT 96
[2022-10-15] MEDS: Ertapenem Sodium 1 GM in 0.9 % Sodium Chloride 50 ML IV (11:57)
[2022-10-15] MEDS: Insulin Lispro 100 UNIT/ML 3 ML VIAL SUBCUT (11:58)
--- NOTE | 2022-10-15 11:59 | P.F2F_ITS ---
Service Date Service Date: 10/15/22 Encounter Date of encounter: 10/15/22 Reasons for Services Signs and symptoms assessed: Osteomyelitis post amputation Reason for custodial: wound care (xeroform to amputation, alginate to plantar foot opening, 4x4 and Kerlix wrap to be 3 times a week. ) and medication management Homebound: Leaving the home is medically contraindicated at this time without the asist of a device and/or another person due th the listed conditions above and below. Reason homebound: weakness related to hospital stay Homebound supporting statement: Needs Certification: Based on the above findings, I certify that this patient is confined to the home and needs intermittent custodial care, physical therapy and/or speech therapy, or continues to need occupational therapy. The patient is under my care, and I have initiated the establishment of the plan of care. The patient will be followed by a physician who will periodically review the plan of care. Time Spent With Patient Time: Total time managing care of this patient today ____ minutes.
--- NOTE | 2022-10-15 12:01 | P.DS_ITS ---
DS: Providers Provider Date of Service: 10/15/22 Date of admission: 10/06/22 19:37 Primary care physician: Geovanni Pink MD Consults: 10/06/22 19:37 Consult to Infectious Diseases Routine Consulting Provider: [facility] Infectious Disease Reason for consultation: osteomyelitis Consult to Nephrology Routine Consulting Provider: Paulo Tellez Reason for consultation: CKD stage 4, s/p left renal transplant Consult to Vascular Surgery Routine Consulting Provider: [facility] Vascular Services Reason for consultation: PAD, osteomyelitis DS: Diagnosis Discharge Diagnosis (1) Diabetic ulcer of right foot: Status: Acute (2) Acute kidney injury superimposed on CKD: Status: Acute (3) Osteomyelitis: Status: Acute DS: Summary Hospital Course Hospital Course: Admission note HPI 52-year-old male with history of testicular cancer stage III completed chemo 10/2020, insulin-dependent type 1 diabetes, paroxysmal atrial fibrillation anticoagulated with Eliquis, CKD stage 4 s/p left-sided renal transplant on immunosuppressive therapy, peripheral vascular disease, hyperlipidemia, history of osteomyelitis of the left foot, anemia of chronic disease, secondary hyperparathyroidism presents to the ED from wound care clinic where he has been following for chronic right foot ulcer.? He reports he has had a wound on the plantar surface of the right foot for several months for which she has been following with wound care but about 3-4 days ago developed dusky discoloration with wound of the right 4th toe which is new.? He was started on cefuroxime and doxycycline by the Wound Clinic but symptoms continued to worsen and he was advised to present to the ED for further evaluation.? He denies any fevers, chills. On arrival, vital signs stable.? No leukocytosis.? Renal function baseline, electrolyte levels normal.? Initial lactic acid 2.3, follow-up 1.3.? X-ray of the right foot showing new bony erosions in the distal 3rd metatarsal and base of the 3rd proximal phalanx with possible additional erosions in the medial surfaces of the distal 4th metatarsal and proximal 4th phalanx concerning for osteomyelitis.? While in the ED, treated with IV Zosyn. Hospital course The patient was admitted for treatment of acute osteomyelitis Right 3rd-4th metatarsals as XRay showing new bony erosions 3rd proximal phalanx and medial surfaces of the distal 4th metatarsal and proximal 4th phalanx. Started on broad spectrum antibitoics. changed to Meropenem based on ID recommendations with a plan for 6 weeks of IV Ertapenem. Arterial duplex RLE, ?Atherosclerotic disease of the SFA without hemodynamically significant stenosis. Occluded posterior tibial artery. s/p angio 10/08/22 - PVD with right posterior tibial artery occulusion but with reconstitution, no intervention done inpatient as he was followed by vascular surgeon who did s/p Right 4th toe amputation 10/13/22 with residual OM, leach placed 10/14/22 and 6 weeks iv ertapenem (end november 16, 2022), plans to do abx at home with [facility] following. acute stage I ulceration 4th right toe and chronic a stage II ulcer related to uncontrolled type 2 diabetes and PAD. Follows with wound care center noted to have GIA on top of?CKD stage 4 S/p left renal transplant which improved back to baseline Cr of 1.6 during hospital stay. followed by nephrology team who recommended to continue mycophenolate and tacrolimus. To follow with dr Marrero in 2 weeks for wound check IV Ertapenem for 6 weeks total Time Spent with Patient Time attestation: Total time managing care of this patient today ____ minutes. Discharge coordination time: Greater than 30 minutes Quality: Safe Use of Opioids Does Pt have an Active Cancer Diagnosis on the Problem List?: No Quality: Stroke Does the patient have a stroke diagnosis?: No Physical Exam Vital Signs: Vital Signs: Last Vital Signs Temp 98.0 F 10/15/22 11:16 Pulse 84 10/15/22 11:16 Resp 20 10/15/22 11:16 BP 118/64 10/15/22 11:16 Pulse Ox 96 10/15/22 11:16 O2 Del Method Room Air 10/15/22 11:16 O2 Flow Rate 99 10/07/22 14:18 BMI result Body Mass Index 29.5 Const: Other: Constitutional : Awake, interactive, not in distress Neck : Normal inspection, Supple Cardiovascular : RRR, no JVP, no lower extremity edema Respiratory : good bilateral air entry, no crackles, wheezes or rhonchi Gastrointestinal: soft, lax, Normal bowel sounds, Non tender Skin : Warm, Dry, Rt foot surgery area covered with dressing with no surrounding erythema or drainage Neurological : Alert & oriented x3, No focal deficit DS: Data Data Completed and Pending Completed studies during hospitalization [Text1]: Procedures Insertion of Infusion Device into Superior Vena Cava, Percutaneous Approach (10/26/21) Insertion of Tunneled Vascular Access Device into Chest Subcutaneous Tissue and Fascia, Percutaneous Approach (03/12/20) Ultrasonography of Superior Vena Cava, Guidance (10/26/21) Pending studies at discharge: Pending at discharge 10/13/22 14:06 Surgical [PTH] Routine Labs on day of discharge: Laboratory Results - last 24 hr 10/14/22 08:05 Tacrolimus 7.1 Preliminary micro results at discharge 10/13/22 Unknown Routine Culture - Preliminary Bone Culture in progress. Anaerobic Culture - Preliminary Culture in progress. Imaging XR : Radiologist's impression: ITS Impressions Foot X-Ray 10/06/22 12:50 IMPRESSION: New erosions in the distal third metatarsal and base of the third proximal phalanx with possible additional erosions in the medial surfaces of the distal fourth metatarsal and proximal fourth phalanx. Findings are suspicious for osteomyelitis. Duplex Scan Lower Extremity Artery 10/06/22 20:20 IMPRESSION: 1. Atherosclerotic disease of the SFA without hemodynamically significant stenosis. 2. Occluded posterior tibial artery. Discharge Plan Discharge Anticipated Discharge Date/Time: 10/15/22 11:49 Patient Disposition: Home Health Service Discharge Diagnosis: Osteomyelitis right foot [facility]errals: [facility] [Other] - 1 Day ([facility] WILL DELIVER YOUR IV ANTIBIOTICS, THEY ALSO PROVIDE OVER THE PHONE NURSING SUPPORT IF NEEDED. ) [facility] [Outside] - 1 Day (long term for wound care and IV antibiotics, a nurse will call to set up first visit. ) Geovanni Pink MD [Primary Care Provider] - 1 Week Discharge Medications: Continued (DME) Ultra-Light Rollator Misc See Rx Instructions .ROUTE .MEDSUPPLY Qty: 1 0RF Rx Instructions: As directed (DME) 16 inch grab bar See Rx Instructions .Route .MEDSUPPLY Qty: 1 0RF Rx Instructions: As directed (DME) transport wheelchair See Rx Instructions .Route .MEDSUPPLY Qty: 1 0RF Rx Instructions: As directed (DME) bed assist handle See Rx Instructions .Route .MEDSUPPLY Qty: 1 0RF Rx Instructions: As directed Rayaldee 30 mcg Capsule,Extended Release 24 Hr 30 mcg PO BEDTIME mycophenolate sodium 180 mg tablet,delayed release (DR/EC) 540 mg PO BID insulin aspart U-100 [Novolog FlexPen U-100 Insulin] 100 unit/mL (3 mL) insulin pen 8 unit subcut TIDAC insulin glargine [Lantus Solostar U-100 Insulin] 100 unit/mL (3 mL) insulin pen 21 unit SUBCUT BEDTIME tacrolimus 1 mg capsule 4 mg PO BID rosuvastatin 10 mg tablet 10 mg PO BEDTIME mirtazapine 7.5 mg tablet 7.5 mg PO BEDTIME (DME) pen needle, diabetic 31 gauge x 3/16 needle See Rx Instructions subcut .MEDSUPPLY Qty: 50 Rx Instructions: As directed apixaban 5 mg tablet 5 mg PO BID (DME) lancets [FreeStyle Lancets] 28 gauge misc See Rx Instructions topical TID Qty: 100 Rx Instructions: As directed Discontinued cefuroxime axetil 250 mg tablet 250 mg PO DAILY doxycycline monohydrate 100 mg capsule 100 mg PO BID Discharge Orders: Discharge Order (Routine); Ordered 10/15/22 Ordered By: Rodrigo Iraheta Diet: Advance to usual diet Activity on Discharge: As tolerated Stand Alone Forms: Patient Portal Discharge page Activity Restrictions/Additional Instructions: Wound care upon discharge: xeroform to amputation, alginate to plantar foot opening, 4x4 and Kerlix wrap to be 3 times a week. Please call Dr. Marrero at [phone] for 2 week follow up for suture and staple removal Care Plan Goals: Read below Health Concerns: Read below Plan of Treatment: Read below Assessment: You were admitted for treatment of right foot ulcer and bone infection evaluated by vascular surgeon who did amputation of 4th infected metatarsal bone. seen by infectious disease specialist who recommended IV antibiotics for total of 6 weeks. Follow up with dr Marrero in 2 weeks for wound check monitor blood sugars at home Continue antibiotics as prescribed Discharge Date/Time: 10/15/22 14:36
== END 2022-10-15 14:36 | disposition home health service (06) | DRG 255 ==
LOC: HO.ED 18:17 → HO.EDOVER 20:04 → HO.IMC 20:19
PROVIDERS: Internal Medicine; Internal Medicine Hypertension Specialist; Physician Assistant; Radiology Diagnostic Radiology; Surgery Vascular Surgery; Admitting Provider Physician Assistant; Emergency Provider Emergency Medicine Emergency Medical Services; PCP Family Medicine; Visit Provider Student in an Organized Health Care Education/Training Program
PROC: B41DZZZ Fluoroscopy of Aorta and Bilateral Lower Extremity Arteries (ICD-10-PCS; principal; 2022-10-08 07:30)
PROC: 0Y6V0Z0 Detachment at Right 4th Toe, Complete, Open Approach (ICD-10-PCS; principal; 2022-10-13 12:10)
DX: E10.52 Type 1 diabetes mellitus with diabetic peripheral angiopathy with gangrene (principal); N17.0 Acute kidney failure with tubular necrosis; I70.261 Atherosclerosis of native arteries of extremities with gangrene, right leg; T86.12 Kidney transplant failure; D84.821 Immunodeficiency due to drugs; M86.171 Other acute osteomyelitis, right ankle and foot; N25.81 Secondary hyperparathyroidism of renal origin; L97.519 Non-pressure chronic ulcer of other part of right foot with unspecified severity; E10.65 Type 1 diabetes mellitus with hyperglycemia; D63.1 Anemia in chronic kidney disease; E78.2 Mixed hyperlipidemia; Z85.47 Personal history of malignant neoplasm of testis; E10.69 Type 1 diabetes mellitus with other specified complication; Z92.21 Personal history of antineoplastic chemotherapy; Z79.01 Long term (current) use of anticoagulants; Z79.621 Long term (current) use of calcineurin inhibitor; Z79.899 Other long term (current) drug therapy
CPT/HCPCS: 36415; 36558; 73630; 75630; 76937; 80048; 80076; 80197; 80202; 82947; 83036; 83605; 83880; 85007; 85025; 85027; 85610; 85730; 87040; 87070; 87073; 87077; 87186; 87205; 88305; 88311; 93926; 99152; 99153; 99285; C1751; C1769; C1887; J0692; J1335; J1642; J1650; J2185; J2543; J2795; J3010; J3370

== ENCOUNTER → 2022-10-20 11:14 | Outpatient (BNVA) | payer OTHER, SELFPAY | PROVIDERS: PCP Family Medicine; Visit Provider Internal Medicine | DX: M86.9 Osteomyelitis, unspecified (principal) | CPT/HCPCS: 99212 ==

== ENCOUNTER 2022-10-22 15:26 | Outpatient (REF) | payer OTHER, SELFPAY ==
[2022-10-22 15:33] LABS: MANUAL DIFF FLAG NO
[2022-10-22 15:42] LABS: Basophils Percent Auto 0.7 % (0-2); Eosinophils Absolute Auto 0.1 X10*3/uL (0.0-0.4); Eosinophils Percent Auto 2.3 % (0-4); Hematocrit 41.1 % (42.0-52.0); Hemoglobin 12.8 g/dl (14.0-18.0); Imm Gran Abs Auto 0.22 X10*3/uL (0.00-0.03); Imm Gran Pct Auto 3.6 % (0.0-0.4); Lymphocytes Absolute Auto 1.3 X10*3/uL (1.2-4.9); Lymphocytes Percent Auto 20.6 % (20-40); Mean Corpuscular HGB Conc 31.1 g/dl (31.0-36.0); Mean Corpuscular Hemoglobin 28.6 pg (27.0-33.0); Mean Corpuscular Volume 91.9 fL (80.0-98.0); Mean Platelet Volume 11.5 fL (9.4-12.4); Monocytes Absolute Auto 0.7 X10*3/uL (0.1-1.2); Monocytes Percent Auto 11.8 % (2-11); Neutrophils Absolute Auto 3.7 x10*3/uL (2.0-8.3); Platelet Count 188 X10*3/uL (160-400); Red Blood Count 4.47 X10*6/uL (4.60-5.80); Red Cell Distribution Width 16.8 % (11.0-16.0); White Blood Count 6.1 X10*3/uL (4.8-10.8)
[2022-10-22 16:52] LABS: Blood Urea Nitrogen 17 mg/dL (9-16); Estimated Glomerular Filt Rate 42
== END 2022-10-22 15:27 | disposition home or self-care (01) ==
LOC: HO.HVNA 15:26
PROVIDERS: Visit Provider Internal Medicine
DX: E11.621 Type 2 diabetes mellitus with foot ulcer (principal)
CPT/HCPCS: 36415; 82565; 84520; 85025

== ENCOUNTER → 2022-10-28 08:47 | Outpatient (BNVA) | payer OTHER, SELFPAY | PROVIDERS: PCP Family Medicine; Visit Provider Surgery Vascular Surgery | DX: I73.9 Peripheral vascular disease, unspecified (principal) | CPT/HCPCS: 99212 ==

== ENCOUNTER 2022-10-29 10:44 | Outpatient (REF) | payer OTHER, SELFPAY ==
[2022-10-29 10:46] LABS: MANUAL DIFF FLAG NO
[2022-10-29 10:53] LABS: Basophils Percent Auto 0.5 % (0-2); Eosinophils Absolute Auto 0.2 X10*3/uL (0.0-0.4); Eosinophils Percent Auto 2.9 % (0-4); Hematocrit 41.8 % (42.0-52.0); Hemoglobin 13.5 g/dl (14.0-18.0); Imm Gran Abs Auto 0.11 X10*3/uL (0.00-0.03); Lymphocytes Absolute Auto 1.5 X10*3/uL (1.2-4.9); Lymphocytes Percent Auto 26.6 % (20-40); Mean Corpuscular HGB Conc 32.3 g/dl (31.0-36.0); Mean Corpuscular Hemoglobin 29.3 pg (27.0-33.0); Mean Corpuscular Volume 90.9 fL (80.0-98.0); Mean Platelet Volume 11.6 fL (9.4-12.4); Monocytes Absolute Auto 0.7 X10*3/uL (0.1-1.2); Monocytes Percent Auto 13.1 % (2-11); Neutrophils Percent Auto 54.9 % (45-73); Platelet Count 201 X10*3/uL (160-400); Red Cell Distribution Width 16.4 % (11.0-16.0); White Blood Count 5.5 X10*3/uL (4.8-10.8)
[2022-10-29 11:59] LABS: Blood Urea Nitrogen 18 mg/dL (9-16); Estimated Glomerular Filt Rate 41
== END 2022-10-29 10:45 | disposition home or self-care (01) ==
LOC: HO.HVNA 10:44
PROVIDERS: Visit Provider Internal Medicine
DX: E11.621 Type 2 diabetes mellitus with foot ulcer (principal); L97.518 Non-pressure chronic ulcer of other part of right foot with other specified severity
CPT/HCPCS: 36415; 82565; 84520; 85025

== ENCOUNTER 2022-11-05 11:42 | Outpatient (REF) | payer OTHER, SELFPAY ==
[2022-11-05 11:55] LABS: MANUAL DIFF FLAG NO
[2022-11-05 11:58] LABS: Basophils Percent Auto 0.7 % (0-2); Eosinophils Absolute Auto 0.2 X10*3/uL (0.0-0.4); Eosinophils Percent Auto 2.5 % (0-4); Hematocrit 45.3 % (42.0-52.0); Hemoglobin 14.2 g/dl (14.0-18.0); Imm Gran Pct Auto 3.3 % (0.0-0.4); Lymphocytes Absolute Auto 1.4 X10*3/uL (1.2-4.9); Mean Corpuscular HGB Conc 31.3 g/dl (31.0-36.0); Mean Corpuscular Hemoglobin 28.5 pg (27.0-33.0); Mean Platelet Volume 11.5 fL (9.4-12.4); Monocytes Absolute Auto 0.7 X10*3/uL (0.1-1.2); Neutrophils Absolute Auto 3.6 x10*3/uL (2.0-8.3); Neutrophils Percent Auto 58.5 % (45-73); Platelet Count 184 X10*3/uL (160-400); Red Blood Count 4.98 X10*6/uL (4.60-5.80); Red Cell Distribution Width 16.3 % (11.0-16.0); White Blood Count 6.1 X10*3/uL (4.8-10.8)
[2022-11-05 13:36] LABS: Blood Urea Nitrogen 20 mg/dL (9-16); Estimated Glomerular Filt Rate 44
== END 2022-11-05 11:43 | disposition home or self-care (01) ==
LOC: HO.HVNA 11:42
PROVIDERS: Visit Provider Internal Medicine
DX: E11.621 Type 2 diabetes mellitus with foot ulcer (principal); M86.171 Other acute osteomyelitis, right ankle and foot
CPT/HCPCS: 36415; 82565; 84520; 85025

== ENCOUNTER → 2022-11-07 11:26 | Outpatient (BNVA) | payer OTHER, SELFPAY | PROVIDERS: PCP Family Medicine; Visit Provider Internal Medicine | DX: M86.9 Osteomyelitis, unspecified (principal) | CPT/HCPCS: 99212 ==

== ENCOUNTER → 2022-11-11 09:51 | Outpatient (BNVA) | payer OTHER, SELFPAY | PROVIDERS: PCP Family Medicine; Visit Provider Surgery Vascular Surgery | DX: Z47.81 Encounter for orthopedic aftercare following surgical amputation (principal); Z89.421 Acquired absence of other right toe(s) | CPT/HCPCS: 99212 ==

== ENCOUNTER 2022-11-12 11:16 | Outpatient (REF) | payer OTHER, SELFPAY ==
[2022-11-12 11:20] LABS: MANUAL DIFF FLAG NO
[2022-11-12 11:38] LABS: Basophils Percent Auto 0.6 % (0-2); Eosinophils Absolute Auto 0.1 X10*3/uL (0.0-0.4); Eosinophils Percent Auto 1.9 % (0-4); Hematocrit 43.6 % (42.0-52.0); Imm Gran Abs Auto 0.07 X10*3/uL (0.00-0.03); Imm Gran Pct Auto 1.5 % (0.0-0.4); Lymphocytes Absolute Auto 1.2 X10*3/uL (1.2-4.9); Lymphocytes Percent Auto 24.9 % (20-40); Mean Corpuscular HGB Conc 32.1 g/dl (31.0-36.0); Mean Corpuscular Hemoglobin 29.8 pg (27.0-33.0); Mean Corpuscular Volume 92.8 fL (80.0-98.0); Mean Platelet Volume 11.8 fL (9.4-12.4); Monocytes Absolute Auto 0.6 X10*3/uL (0.1-1.2); Monocytes Percent Auto 12.4 % (2-11); Neutrophils Absolute Auto 2.8 x10*3/uL (2.0-8.3); Neutrophils Percent Auto 58.7 % (45-73); Platelet Count 166 X10*3/uL (160-400); Red Cell Distribution Width 15.4 % (11.0-16.0); White Blood Count 4.8 X10*3/uL (4.8-10.8)
[2022-11-12 12:01] LABS: Blood Urea Nitrogen 17 mg/dL (9-16); Estimated Glomerular Filt Rate 43
== END 2022-11-12 11:17 | disposition home or self-care (01) ==
LOC: HO.HVNA 11:16
PROVIDERS: Visit Provider Internal Medicine
DX: M86.171 Other acute osteomyelitis, right ankle and foot (principal); E11.621 Type 2 diabetes mellitus with foot ulcer
CPT/HCPCS: 36415; 82565; 84520; 85025

== ENCOUNTER 2022-11-25 10:25 | Outpatient (REF) | payer OTHER, SELFPAY ==
--- NOTE | ~2022-11-25 | IR_ITS ---
EXAMINATION: Removal of Tunnelled catheter CLINICAL INFORMATION: Osteomyelitis with long-term IV antibiotic requirement. No longer needed. COMPARISON: Placement exam 10/14/2022 TECHNIQUE/FINDINGS: The existing left neck 5 Kinyarwanda tunneled proline catheter was removed. Manual pressure was applied to achieve hemostasis. Catheter tip was not sent for culture. IR/IR cvc remove any age IMPRESSION: Left neck 5 Kinyarwanda proline catheter removal
== END 2022-11-25 10:26 | disposition home or self-care (01) ==
LOC: HO.RADIR 10:25
PROVIDERS: Visit Provider Internal Medicine
DX: Z13.89 Encounter for screening for other disorder (principal)

== ENCOUNTER 2022-12-04 16:09 | Outpatient (REF) | payer OTHER, SELFPAY | END 2022-12-04 16:10 | disposition home or self-care (01) | LOC: HO.LNP 16:09 | PROVIDERS: Visit Provider Podiatrist | DX: L97.522 Non-pressure chronic ulcer of other part of left foot with fat layer exposed (principal) | CPT/HCPCS: 87070; 87205 ==

== ENCOUNTER 2022-12-09 | Outpatient (RCR) | payer OTHER, SELFPAY | END 2023-01-19 16:00 | disposition home or self-care (01) | LOC: HO.WCC | PROVIDERS: PCP Family Medicine; Visit Provider Physician Assistant | DX: E11.621 Type 2 diabetes mellitus with foot ulcer (principal); E11.51 Type 2 diabetes mellitus with diabetic peripheral angiopathy without gangrene; L97.522 Non-pressure chronic ulcer of other part of left foot with fat layer exposed; S90.811D Abrasion, right foot, subsequent encounter; E11.610 Type 2 diabetes mellitus with diabetic neuropathic arthropathy; E11.40 Type 2 diabetes mellitus with diabetic neuropathy, unspecified; I12.9 Hypertensive chronic kidney disease with stage 1 through stage 4 chronic kidney disease, or unspecified chronic kidney disease; I25.2 Old myocardial infarction; N18.9 Chronic kidney disease, unspecified; Z94.0 Kidney transplant status; Z92.3 Personal history of irradiation; Z92.21 Personal history of antineoplastic chemotherapy | CPT/HCPCS: 11042 ==

== ENCOUNTER 2022-12-17 08:19 | Outpatient (REF) | payer OTHER, SELFPAY | END 2022-12-17 08:20 | disposition home or self-care (01) | LOC: HO.US 08:19 | PROVIDERS: PCP Family Medicine; Visit Provider Surgery Vascular Surgery | DX: I73.9 Peripheral vascular disease, unspecified (principal) | CPT/HCPCS: 93923; 93925 ==

== ENCOUNTER 2023-01-13 15:00 | Outpatient (AMB) | payer OTHER, SELFPAY ==
--- NOTE | 2023-01-13 15:07 | A.OFFVIS_ITS ---
Intake Intake Visit Reasons: follow up s/p arterial US 12/17/22 Intake Note: Patient is here for a follow up s/p arterial US 12/17/22, patient is still going to wound care every 2 weeks for left toe ulcer. [employer] Consultant Required: Yes [employer] Consultant Name: Pao Singleton VANESAJose Manuel Allergies No Known Allergies Allergy (Verified 01/13/23 15:10) HPI follow up s/p arterial US 12/17/22 HPI Details Very pleasant 52-year-old gentleman presents for lower extremity arterial follow-up. He has done well with his prior right 4th toe amputation. He [facility] to follow [facility]. He had some nonhealing ulcers on the dorsum of the foot secondary to poorly fitting shoes. He is being seen by a adrián rossi regarding this. He now presents for routine follow-up. [facility] Medical History 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 chronic kidney disease Bleeding internal hemorrhoids Carpal tunnel syndrome on left Chronic right shoulder pain Diabetes mellitus with diabetic nephropathy, with long-term current use of insulin Diabetes mellitus with foot ulcer Diabetic ulcer of right foot End-stage renal disease on hemodialysis Hyperlipidemia Mixed dyslipidemia Multinodular goiter Osteomyelitis Osteomyelitis of left foot PAD (peripheral artery disease) Paresthesia and pain of extremity Peripheral vascular disease Refused pneumococcal vaccination S/P angiogram of extremity (10/08/22) Secondary hyperparathyroidism of renal origin Seminoma Testicular cancer Type 2 diabetes mellitus with chronic kidney disease Type 2 diabetes mellitus with hyperglycemia, with long-term current use of insulin Vaccination refused by patient Wound of right foot Surgical History Amputated toe of right foot (10/13/22) History of kidney transplant Family History Father Unknown family medical history Mother Diabetes mellitus HTN (hypertension) CVD (cardiovascular disease) History of CVA (cerebrovascular accident) Stroke Sister Diabetes mellitus Daughter No problems noted. Sister No problems noted. Sister No problems noted. Social History Household Members: Spouse, Family and Children Housing: House Do you presently have visiting nurse or other home services: No Alcohol intake: never Patient Tobacco Use Status: Never used Tobacco e-Cigarette/Vaping Use: Never Used service: No Current occupational status: disabled Current occupation: disability - kidney transplant. Left side dominant Review of Systems Const All systems reviewed & are unremarkable except as noted in HPI and below Reports no additional complaints ENT Reports Normal hearing present Card Denies chest pain, Denies chest pain at rest, Denies chest pain with activity and Denies pedal edema Resp Denies cough GI Denies abdominal pain Musc Denies abnormal gait, Denies muscle cramps and Denies radiating pain into limb Skin/Breast Denies skin ulcer and Denies wounds Neuro Reports Normal hearing present and Denies abnormal gait Psych Reports no additional complaints Physical Exam Const General: cooperative, healthy appearing and comfortable Orientation/consciousness: oriented to person, oriented to place and oriented to time HEENT Head: Yes normal to inspection Neck Neck: Yes normal visual inspection Carotids: no bruits Chest Chest palpation & inspection: normal inspection of the chest Resp Effort & Inspection: normal respiratory effort and able to speak in complete sentences Auscultation: clear to auscultation bilaterally, no crackles, no rales, no rhonchi and no wheezes Cardio Other: Bilateral DP signals Rate: regular rate Rhythm: regular rhythm Heart sounds: S1 normal heart sound present and S2 normal heart sound present Bruits: no carotid bruits GI Inspection: Yes normal to inspection Skin Other: Bilateral dorsum of the feet small punctate ulcers Wounds: no wounds Hair: normal Neuro General: oriented to person, oriented to place and oriented to time Cranial nerves: Yes CN's II-XII intact bilaterally and Yes Normal hearing present Cognition (Neuro): normal cognition Motor exam (neuro): 5/5 motor strength present throughout Extrem Other: venous exam: No significant superficial varicosities or spider telangiectasias, minimal edema General: No clubbing, No cyanosis and No edema Psych Appearance: grossly normal Mental Status: mental status grossly normal Speech and movement: Normal speech and movement present Results Reviewed Results Reviewed: Noninvasive arterial testing dated 12/17/2022 demonstrates NOY on the right of 1.24 and on the left of 1.3 on direct ultrasound no significant stenosis noted. Written report and images were reviewed. Assessment & Plan Assessment & Plan (1) Peripheral vascular disease: Comment: 10/08/2022 - diagnostic angiogram 10/13/2022 - right 4th toe amputation Code(s): I73.9 - Peripheral vascular disease, unspecified Plan: In short patient has stable claudication. Amputation and wounds appear to be healing well I did review the pathophysiology of peripheral vascular disease with the patient. In addition we did discuss routine conservative measures including a healthy diet and the importance of exercise and ambulation. We did discuss risk factor modification. The patient will continue to to follow-up with surveillance follow-up in approximately 6 months. Thank you for allowing us to participate in this patient's care. If there are any questions or concerns please do not hesitate to contact us. 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
== END 2023-01-13 15:34 | disposition home or self-care (01) ==
PROVIDERS: PCP Family Medicine; Visit Provider Surgery Vascular Surgery
DX: I73.9 Peripheral vascular disease, unspecified (principal); Z89.421 Acquired absence of other right toe(s)
CPT/HCPCS: 99213

== ENCOUNTER → 2023-01-13 15:00 | Outpatient (BNVA) | payer OTHER, SELFPAY | PROVIDERS: PCP Family Medicine; Visit Provider Surgery Vascular Surgery ==

== ENCOUNTER 2023-01-15 22:17 | Inpatient (IN) | payer OTHER, SELFPAY ==
--- NOTE | ~2023-01-15 | CT_ITS ---
EXAMINATION: CT foot LT wo IV con CLINICAL INFORMATION: Reason for Exam ?osteomyelitis COMPARISON: Radiographs dated 09/01/2022 TECHNIQUE: Multidetector CT imaging of the left foot was performed without the use of intravenous contrast. Coronal and sagittal reformats created on an independent workstation were reviewed. This CT examination was performed using dose optimization techniques as appropriate, variously including the following: *Automated exposure control *Adjustment of mA and/or kV according to patient size (this includes techniques or standardized protocols for targeted exams where dose is matched to indication/reason for exam; i.e. extremities or head) *Use of iterative reconstruction technique DLP: 163 mGy-cm FINDINGS: As seen on prior x-rays, soft tissue swelling about the third phalanx with erosive changes involving the third distal phalanx with cortical destruction. No significant intramedullary lucency, however. Chronic fragmentation of the distal aspect of the first proximal phalanx with well-corticated ossific densities represented sequela of previous osteomyelitis. No acute fracture or dislocation. CT/CT foot LT wo IV con IMPRESSION: * Cortical erosion/destructive change involving the third distal phalanx without intramedullary lucency. These findings represent sequela of osteomyelitis, activity which is unknown on the basis of CT. Recommend MRI foot without with contrast for further evaluation. * Chronic fragmentation of the distal aspect of the first proximal phalanx with well-corticated ossific densities represent sequela of previous osteomyelitis. * No acute fracture or dislocation.
--- NOTE | ~2023-01-15 | XR_ITS ---
EXAMINATION: XR FOOT, LEFT CLINICAL INFORMATION: Sections COMPARISON: 01/17/2022 TECHNIQUE: AP, lateral, and oblique views of the left foot. FINDINGS: Chronic destructive changes and associated remodeling of the great toe phalanges in keeping with sequela of prior osteomyelitis is seen in January 2022. There is soft tissue swelling about the third phalanx. There is subtle lucency of the third distal phalangeal tuft, which could represent osteomyelitis. Vascular calcifications. XR/XR foot LT min 3V IMPRESSION: * Subtle lucency of the third distal phalangeal tuft could represent osteomyelitis. MRI without and with contrast could confirm. * Chronic destructive changes and associated remodeling of the great toe phalanges in keeping with sequela of prior osteomyelitis.
--- NOTE | ~2023-01-15 | IR_ITS ---
PROCEDURE: IR INSERTION OF PICC CLINICAL INFORMATION: Bacteremia COMPARISON: None available. TECHNIQUE: Procedure and risks and benefits including bleeding, infection and blood clot were discussed with the patient and informed consent was obtained. All elements of maximal sterile barrier technique followed including use of cap, mask, sterile gown, sterile gloves, a sterile full body drape and hand hygiene. Also followed skin preparation with 2% chlorhexidine for cutaneous antisepsis, and sterile ultrasound preparation with sterile gel and probe cover when applicable. The right arm was prepped and draped in the usual sterile fashion. The skin and soft tissues were anesthetized with 1% lidocaine plain. Using ultrasound guidance, right basilic vein access was obtained. Over an 018 wire and through a peel-away sheath, a 4 [place] single lumen PICC line was positioned. Catheter tip is in the SVC. Catheter length is 31 cm. Real-time ultrasound guidance was used to document vein patency and for needle entry. A formal ultrasound picture was recorded. Fluoroscopy time 0.2 minutes. DAP 30 CG Y per centimeter squared. 1 saved fluoroscopic image. FINDINGS: There is a right upper extremity 4 [place] single-lumen PICC line with tip projecting over the SVC. IR/IR cvc insert peripheral IMPRESSION: Right upper extremity PICC line placement.
--- NOTE | ~2023-01-15 | MR_ITS ---
EXAMINATION: MRI FOOT WITHOUT AND WITH CONTRAST, LEFT CLINICAL INFORMATION: Evaluate for osteomyelitis. COMPARISON: Same-day CT TECHNIQUE: MRI without and with intravenous administration of 9 mL of Gadavist is performed on the left forefoot. FINDINGS: There is a soft tissue ulceration at the distal aspect of the 3rd toe with edema and enhancement of the surrounding subcutaneous fat extending to the base of the talus compatible with cellulitis. No abscess. As demonstrated on the CT, there is erosion at the tuft of the 3rd distal phalanx is diffusely low in T1 signal intensity with mild edema and enhancement compatible with osteomyelitis. There is a chronic deformity of the distal aspect of the 1st proximal phalanx. Diffuse edema and mild fatty atrophy of the intrinsic muscles of the foot. The flexor hallucis longus tendon is likely torn distally and retracted, thickened along the plantar aspect of the foot, with the great toe held in dorsiflexion. MR/MR foot LT wo/w con IMPRESSION: Soft tissue ulceration at the distal aspect of the 3rd toe with underlying osteomyelitis of the 3rd distal phalanx. No abscess.
--- NOTE | ~2023-01-15 | IR_ITS ---
PROCEDURE: IR INSERTION OF PICC CLINICAL INFORMATION: Bacteremia COMPARISON: None available. TECHNIQUE: Procedure and risks and benefits including bleeding, infection and blood clot were discussed with the patient and informed consent was obtained. All elements of maximal sterile barrier technique followed including use of cap, mask, sterile gown, sterile gloves, a sterile full body drape and hand hygiene. Also followed skin preparation with 2% chlorhexidine for cutaneous antisepsis, and sterile ultrasound preparation with sterile gel and probe cover when applicable. The right arm was prepped and draped in the usual sterile fashion. The skin and soft tissues were anesthetized with 1% lidocaine plain. Using ultrasound guidance, right basilic vein access was obtained. Over an 018 wire and through a peel-away sheath, a 4 [place]er single lumen PICC line was positioned. Catheter tip is in the SVC. Catheter length is 31 cm. Real-time ultrasound guidance was used to document vein patency and for needle entry. A formal ultrasound picture was recorded. Fluoroscopy time 0.2 minutes. DAP 30 CG Y per centimeter squared. 1 saved fluoroscopic image. FINDINGS: There is a right upper extremity 4 [place]er single-lumen PICC line with tip projecting over the SVC. IR/IR us guide venous access IMPRESSION: Right upper extremity PICC line placement.
[2023-01-15 22:41] VITALS: BP 137/79; PULSE 91; RESP 18; TEMP 37.8; O2SAT 97; BMI 29.2
[2023-01-15 23:15] LABS: MANUAL DIFF FLAG NO
[2023-01-15 23:17] LABS: Basophils Percent Auto 0.2 % (0-2); Eosinophils Absolute Auto 0.1 X10*3/uL (0.0-0.4); Eosinophils Percent Auto 1.4 % (0-4); Hematocrit 44.4 % (42.0-52.0); Hemoglobin 14.5 g/dl (14.0-18.0); Imm Gran Abs Auto 0.09 X10*3/uL (0.00-0.03); Lymphocytes Absolute Auto 1.7 X10*3/uL (1.2-4.9); Lymphocytes Percent Auto 17.9 % (20-40); Mean Corpuscular HGB Conc 32.7 g/dl (31.0-36.0); Mean Corpuscular Hemoglobin 29.6 pg (27.0-33.0); Mean Corpuscular Volume 90.6 fL (80.0-98.0); Mean Platelet Volume 11.4 fL (9.4-12.4); Monocytes Absolute Auto 1.3 X10*3/uL (0.1-1.2); Monocytes Percent Auto 13.9 % (2-11); Neutrophils Absolute Auto 6.1 x10*3/uL (2.0-8.3); Neutrophils Percent Auto 65.6 % (45-73); Platelet Count 168 X10*3/uL (160-400); Red Cell Distribution Width 13.3 % (11.0-16.0); White Blood Count 9.3 X10*3/uL (4.8-10.8)
[2023-01-15 23:31] LABS: Alanine Aminotransferase 8 U/L (0-40); Albumin Level 4.3 g/dL (3.5-5.0); Alkaline Phosphatase 91 U/L (39-117); Anion Gap 17 (12-20); Aspartate Amino Transferase 10 U/L (5-37); Bilirubin Total 0.4 mg/dL (0.0-1.0); Blood Urea Nitrogen 20 mg/dL (9-16); Calcium 9.7 mg/dL (8.4-10.2); Carbon Dioxide 22 mmol/L (22-29); Chloride 103 mmol/L (96-108); Creatinine Clr Calc Pharmacy 56.3; Estimated Glomerular Filt Rate 42; Glucose Random 178 mg/dL (60-115); Sodium 138 mmol/L (135-145); Total Protein 7.8 g/dL (6.5-8.0)
[2023-01-15 23:34] LABS: Lactic Acid 1.1 mmol/L (0.5-2.0)
[2023-01-16] VITALS (8 sets, daily range): BP systolic 104–146; BP diastolic 59–74; PULSE 65–98; RESP 16–18; TEMP 36–37.7; O2SAT 96–99
--- NOTE | 2023-01-16 01:51 | MHC.EDTECH ---
Hourly rounds completed,vitals were done by RN,Patient is resting comfortably at this time and call melgar within reach.
--- NOTE | 2023-01-16 02:05 | ED.GENADULT ---
HPI - General Adult General Chief complaint: Wound/Laceration Stated complaint: Left foot toe infection?feels hot Time Seen by Provider: 01/16/23 02:03 Source: patient and family Mode of arrival: ambulatory Limitations: no limitations History of Present Illness HPI narrative: A 52-year-old male history of diabetes and peripheral neuropathy, s/p right 4th toe amputation by Dr. Marrero patient presented today with left 3rd toe unhealing ulcer and infection, patient feels subjective fever no chills, drainage from the toe. Related Data Home Medications Medication Instructions Recorded Confirmed calcifediol 30 mcg capsule,24 30 mcg PO BEDTIME 03/14/20 11/26/22 hr,extended release (Rayaldee) mycophenolate sodium 180 mg 540 mg PO BID 05/18/20 11/26/22 tablet,delayed release pen needle, diabetic 31 gauge x #50 ea 06/05/20 11/26/2208/28 apixaban 5 mg tablet 5 mg PO BID 10/12/20 11/26/22 lancets 28 gauge (FreeStyle #100 ea 06/26/21 11/26/22 Lancets) insulin aspart U-100 100 unit/mL 8 unit subcut TIDAC 10/26/21 11/26/22 (3 mL) subcutaneous pen (Novolog FlexPen U-100 Insulin aspart) insulin glargine 100 unit/mL (3 21 unit subcut BEDTIME 10/26/21 11/26/22 mL) subcutaneous pen (Lantus Solostar U-100 Insulin) mirtazapine 7.5 mg tablet 7.5 mg PO BEDTIME 09/26/22 11/26/22 rosuvastatin 10 mg tablet 10 mg PO BEDTIME 10/06/22 11/26/22 tacrolimus 1 mg capsule, 4 mg PO BID 10/06/22 11/26/22 immediate-release ertapenem 1 gram intravenous 1 g IV DAILY 10/20/22 11/26/22 solution amlodipine 5 mg tablet 5 mg PO DAILY 10/28/22 11/26/22 everolimus (immunosuppressive) 0 mg PO 10/28/22 11/26/22 0.75 mg tablet valsartan 40 mg tablet 40 mg PO DAILY 10/28/22 11/26/22 Previous Rx's Medication Instructions Recorded 16 inch grab bar #1 ea 10/15/20 bed assist handle #1 ea 10/15/20 transport wheelchair #1 ea 10/15/20 walker (Ultra-Light Rollator misc) #1 ea 10/15/20 Allergies Allergy/AdvReac Type Severity Reaction Status Date / Time No Known Allergies Allergy Verified 01/15/23 22:40 Review of Systems Review of Systems: All other systems are reviewed and are negative Constitutional: Reports as per HPI and Reports no additional constitutional complaints Eyes: Reports as per HPI and Reports no additional eye complaints Reports system reviewed and no additional complaints, except as documented Cardiovascular: Reports as per HPI and Reports no additional cardiovascular complaints Respiratory: Reports as per HPI and Reports no additional respiratory complaints Gastrointestinal: Reports as per HPI and Reports no additional gastrointestinal complaints Genitourinary: Reports no additional female genitourinary complaints Musculoskeletal: Reports no additional musculoskeletal complaints Skin/Breast: Reports system reviewed and no additional complaints, except as docu Psychiatric: Reports no additional psychiatric complaints Endocrine: Reports no additional endocrine complaints Hematologic/Lymphatic: Reports no additional hematologic/lymphatic complaints Allergic/Immunologic: Reports no additional allergic/immunologic complaints Reports system reviewed and no additional complaints, except as documented and Reports Abnormal speech present [facility] Past Medical History Medical History 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 chronic kidney disease Bleeding internal hemorrhoids Carpal tunnel syndrome on left Chronic right shoulder pain Diabetes mellitus with diabetic nephropathy, with long-term current use of insulin Diabetes mellitus with foot ulcer Diabetic ulcer of right foot End-stage renal disease on hemodialysis Hyperlipidemia Mixed dyslipidemia Multinodular goiter Osteomyelitis Osteomyelitis of left foot PAD (peripheral artery disease) Paresthesia and pain of extremity Peripheral vascular disease Refused pneumococcal vaccination S/P angiogram of extremity (10/08/22) Secondary hyperparathyroidism of renal origin [place]inoma Testicular cancer Type 2 diabetes mellitus with chronic kidney disease Type 2 diabetes mellitus with hyperglycemia, with long-term current use of insulin Vaccination refused by patient Wound of right foot Surgical History Amputated toe of right foot (10/13/22) History of kidney transplant Family History Family History Father Unknown family medical history Mother Diabetes mellitus HTN (hypertension) CVD (cardiovascular disease) History of CVA (cerebrovascular accident) Stroke Sister Diabetes mellitus Daughter No problems noted. Sister No problems noted. Sister No problems noted. Social History Social History Household Members: Spouse, Family and Children Housing: House Do you presently have visiting nurse or other home services: No Alcohol intake: never Patient Tobacco Use Status: Never used Tobacco e-Cigarette/Vaping Use: Never Used Advance Directives: No Advance Directives Information Provided: Yes service: No Current occupational status: disabled Current occupation: disability - kidney transplant. Left side dominant Physical Exam ED Vital Signs: Vital Signs - 24 hr 01/15/23 22:41 01/16/23 01:12 Temperature 100.1 F 99.9 F Pulse Rate 91 98 Respiratory Rate 18 17 Blood Pressure 137/79 146/74 H Pulse Oximetry 97 97 Oxygen Delivery Method Room Air Room Air BMI result Body Mass Index 29.2 Vital signs have been reviewed as appeared to be correct. Blood pressure normal. Heart rate normal. Respiration rate normal. Temperature normal. Oxygen saturation normal. Appearance: Alert. Oriented X3. No acute distress. Head: Normal external exam. Normocephalic. Atraumatic. No Teixeira signs noted. No raccoon eyes noted Eyes: PERRLA. EOMI. Conjunctiva and sclera normal. Eyelids normal. ENT: TM's Normal. Pharynx normal. Uvula midline. Moist mucous membranes. No trismus noted. No drooling noted. No muffled voice noted. Neck: Normal inspection. Neck supple. FROM. No adenopathy. Thyroid Normal. No meningeal signs. No neck mass noted. CVS: Normal heart rate and rhythm. Heart sound normal. No murmurs noted. Pulses normal throughout. Respiratory: No respiratory distress. Painless inspiration. Breath sounds normal. No wheezes/rales/rhonchi noted. Chest nontender. No accessory muscle usage noted or decreased air movement noted. Abdomen: Soft and nontender. Bowel sounds normal in all 4 quadrants. No distention noted. No organomegaly noted. No visible injury noted. Back: No CVA tenderness. Full range of motion noted. Skin: Skin warm and dry. Normal skin color. Normal skin turgor. No rashes/lesions/lacerations noted. Extremities: Left foot: Left 3rd toe with dorsal ulcerative lesion, redness, no discharge. Neuro: Oriented X 3. Cranial nerve exam: II-XII are grossly intact No motor deficit. No sensory deficit. Reflexes normal. Course Course Course Narrative: 52-year-old diabetic came in with diabetic foot and osteomyelitis of the left 3rd toe will start the patient on IV antibiotics. Medical Decision Making Differential Diagnosis Differential Diagnoses: The differential diagnosis associated with the presentation includes (Osteomyelitis of the left 3rd toe, sepsis, electrolyte abnormality, severe anemia.) Admission/Observation Consideration of admission/observation: Escalation of care including admission/observation considered Consult Healthcare Provider Management of the patient was discussed with: Hospitalist (Dr. Young) Lab Data MDM Lab Attestation statement: I reviewed the patient's lab results. 01/15/23 23:10 01/15/23 23:09 Labs: Lab Results 01/15/23 01/15/23 01/15/23 Range/Units 23:08 23:09 23:10 WBC 9.3 (4.8-10.8) X10*3/uL RBC 4.90 (4.60-5.80) X10*6/uL Hgb 14.5 (14.0-18.0) g/dl Hct 44.4 (42.0-52.0) % MCV 90.6 (80.0-98.0) fL MCH 29.6 (27.0-33.0) pg MCHC 32.7 (31.0-36.0) g/dl RDW 13.3 (11.0-16.0) % Plt Count 168 (160-400) X10*3/uL MPV 11.4 (9.4-12.4) fL Immature Gran % (Auto) 1.0 H (0.0-0.4) % Neut % (Auto) 65.6 (45-73) % Lymph % (Auto) 17.9 L (20-40) % [place] % (Auto) 13.9 H (2-11) % Eos % (Auto) 1.4 (0-4) % Baso % (Auto) 0.2 (0-2) % Lymph # (Auto) 1.7 (1.2-4.9) X10*3/uL [place] # (Auto) 1.3 H (0.1-1.2) X10*3/uL Eos # (Auto) 0.1 (0.0-0.4) X10*3/uL Baso # (Auto) 0.0 (0.0-0.2) X10*3/uL Abs Immat Gran (auto) 0.09 H (0.00-0.03) X10*3/uL Absolute Neuts (auto) 6.1 (2.0-8.3) x10*3/uL Absolute Nucleated RBC 0.000 (0.0-0.012) X10*3/uL Nucleated RBC % (auto) 0.0 (0.0-0.2) /100WBC Sodium 138 (135-145) mmol/L Potassium 4.0 (3.3-5.1) mmol/L Chloride 103 (96-108) mmol/L Carbon Dioxide 22 (22-29) mmol/L Anion Gap 17 (12-20) BUN 20 H (9-16) mg/dL Creatinine 1.72 H (0.5-1.4) mg/dL Estim Creat Clear Calc 56.3 Estimated GFR 42 Random Glucose 178 H (60-115) mg/dL Lactic Acid 1.1 (0.5-2.0) mmol/L Calcium 9.7 D (8.4-10.2) mg/dL Total Bilirubin 0.4 (0.0-1.0) mg/dL AST 10 (5-37) U/L ALT 8 (0-40) U/L Alkaline Phosphatase 91 (39-117) U/L Total Protein 7.8 (6.5-8.0) g/dL Albumin 4.3 (3.5-5.0) g/dL Independent Interpretation I performed an independent interpretation of an: Plain X-Ray (Left foot x-ray: Questionable bone 3rd distal phalangeal tuft osteomyelitis) Radiology Impression Discussion of test interpretation with radiology: I have reviewed the radiologist's reading. Chronic Conditions Patient?s care impacted by: Diabetes Discharge Plan Discharge Clinical Impression: Osteomyelitis of left foot Patient Disposition: Admitted As Inpatient
--- NOTE | 2023-01-16 02:21 | PM.IMHP ---
History of Present Illness Date of Service: 01/16/23 Chief Complaint: Toe infection This is a 52-year-old male with pertinent history of peripheral arterial disease status post right foot toe amputation, essential hypertension, mixed hyperlipidemia, chronic kidney disease status post renal transplant on immunosuppressive therapy, insulin-dependent type 1 diabetes mellitus, history of testicular cancer stage III who presents to the emergency department for evaluation of toe infection. Patient states he has had nonhealing wound of the left toe that has been ongoing for a while. Presents today as he has been having fevers and purulent drainage from the toe. He denies nausea, vomiting. No chest discomfort, palpitations, shortness of breath, abdominal pain, changes in urinary or bowel habits In the emergency department, imaging concerning for osteomyelitis. Review of Systems Constitutional: Constitutional: Reports fever(s) Cardiovascular: Cardiovascular: Reports no additional cardiovascular complaints Respiratory: Respiratory: Reports no additional respiratory complaints Gastrointestinal: Gastrointestinal: Reports no additional gastrointestinal complaints Genitourinary: Genitourinary: Reports no additional male genitourinary complaints [facility] Medical History 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 chronic kidney disease Bleeding internal hemorrhoids Carpal tunnel syndrome on left Chronic right shoulder pain Diabetes mellitus with diabetic nephropathy, with long-term current use of insulin Diabetes mellitus with foot ulcer Diabetic ulcer of right foot End-stage renal disease on hemodialysis Hyperlipidemia Mixed dyslipidemia Multinodular goiter Osteomyelitis Osteomyelitis of left foot PAD (peripheral artery disease) Paresthesia and pain of extremity Peripheral vascular disease Refused pneumococcal vaccination S/P angiogram of extremity (10/08/22) Secondary hyperparathyroidism of renal origin [place] Testicular cancer Type 2 diabetes mellitus with chronic kidney disease Type 2 diabetes mellitus with hyperglycemia, with long-term current use of insulin Vaccination refused by patient Wound of right foot Family History Father Unknown family medical history Mother Diabetes mellitus HTN (hypertension) CVD (cardiovascular disease) History of CVA (cerebrovascular accident) Stroke Sister Diabetes mellitus Daughter No problems noted. Sister No problems noted. Sister No problems noted. Surgical History Amputated toe of right foot (10/13/22) History of kidney transplant Social History Household Members: Spouse, Family and Children Housing: House Do you presently have visiting nurse or other home services: No Alcohol intake: never Patient Tobacco Use Status: Never used Tobacco e-Cigarette/Vaping Use: Never Used Advance Directives: No Advance Directives Information Provided: Yes service: No Current occupational status: disabled Current occupation: disability - kidney transplant. Left side dominant Meds Allergies Allergy/AdvReac Type Severity Reaction Status Date / Time No Known Allergies Allergy Verified 01/15/23 22:40 Active Medications: Current Medications Piperacillin Sod/Tazobactam (Sod 3.375 gm/ Sodium Chloride) 50 mls @ 100 mls/hr IV ONCE ONE Stop: 01/16/23 02:32 Home Medications Medication Instructions Recorded Confirmed Last Taken Type calcifediol 30 mcg capsule,24 30 mcg PO BEDTIME 03/14/20 01/16/23 10/05/22 History hr,extended release (Rayaldee) mycophenolate sodium 180 mg 540 mg PO BID 05/18/20 01/16/23 10/06/22 History tablet,delayed release pen needle, diabetic 31 gauge x #50 ea 06/05/20 11/26/22 Unknown History 3/16 apixaban 5 mg tablet 5 mg PO BID 10/12/20 01/16/23 10/06/22 History lancets 28 gauge (FreeStyle #100 ea 06/26/21 11/26/22 Unknown History Lancets) insulin aspart U-100 100 unit/mL 8 unit subcut TIDAC 10/26/21 01/16/23 10/06/22 History (3 mL) subcutaneous pen (Novolog FlexPen U-100 Insulin aspart) insulin glargine 100 unit/mL (3 21 unit subcut BEDTIME 10/26/21 01/16/23 10/05/22 History mL) subcutaneous pen (Lantus Solostar U-100 Insulin) mirtazapine 7.5 mg tablet 7.5 mg PO BEDTIME 09/26/22 01/16/23 10/05/22 History rosuvastatin 10 mg tablet 10 mg PO BEDTIME 10/06/22 01/16/23 10/05/22 History tacrolimus 1 mg capsule, 4 mg PO BID 10/06/22 01/16/23 10/06/22 History immediate-release amlodipine 5 mg tablet 5 mg PO DAILY 10/28/22 01/16/23 Unknown History everolimus (immunosuppressive) 0.75 mg PO BID 10/28/22 01/16/23 Unknown History 0.75 mg tablet valsartan 40 mg tablet 40 mg PO DAILY 10/28/22 01/16/23 Unknown History Physical Exam Vital Signs and Narrative: Vital Signs: Last Vital Signs Temp 99.9 F 01/16/23 01:12 Pulse 98 01/16/23 01:12 Resp 17 01/16/23 01:12 BP 146/74 H 01/16/23 01:12 Pulse Ox 97 01/16/23 01:12 O2 Del Method Room Air 01/16/23 01:12 BMI result Body Mass Index 29.2 Middle-aged male lying in bed in no distress Neck supple, no JVD Irregularly irregular, S1-S2 heard Regular breath sounds bilaterally, no wheezing or crackles appreciated Abdomen soft nontender, no guarding, no rigidity Patient is awake, alert and oriented to self, place, time and person ; no focal motor deficit Extremity: Right toe amputation seen, left 3rd toe with nonhealing wound draining serosanguineous fluid Psych: Normal mood Results Labs 01/15/23 23:10 01/15/23 23:09 Labs: Laboratory Results - last 24 hr 01/15/23 01/15/23 01/15/23 23:08 23:09 23:10 MCV 90.6 MCH 29.6 MCHC 32.7 RDW 13.3 Plt Count 168 MPV 11.4 Immature Gran % (Auto) 1.0 H Neut % (Auto) 65.6 Lymph % (Auto) 17.9 L [place] % (Auto) 13.9 H Eos % (Auto) 1.4 Baso % (Auto) 0.2 Lymph # (Auto) 1.7 [place] # (Auto) 1.3 H Eos # (Auto) 0.1 Baso # (Auto) 0.0 Abs Immat Gran (auto) 0.09 H Absolute Neuts (auto) 6.1 Absolute Nucleated RBC 0.000 Nucleated RBC % (auto) 0.0 Anion Gap 17 Estim Creat Clear Calc 56.3 Estimated GFR 42 Random Glucose 178 H Lactic Acid 1.1 Calcium 9.7 D Total Bilirubin 0.4 AST 10 ALT 8 Alkaline Phosphatase 91 Total Protein 7.8 Albumin 4.3 Imaging Radiologist's Impressions: Impressions Foot X-Ray 01/15/23 23:03 IMPRESSION: * Subtle lucency of the third distal phalangeal tuft could represent osteomyelitis. MRI without and with contrast could confirm. * Chronic destructive changes and associated remodeling of the great toe phalanges in keeping with sequela of prior osteomyelitis. Assessment and Plan (1) Cellulitis: Status: Acute Plan This is a 52-year-old male with pertinent history of peripheral arterial disease status post right foot toe amputation, essential hypertension, mixed hyperlipidemia, chronic kidney disease status post renal transplant on immunosuppressive therapy, insulin-dependent type 1 diabetes mellitus, history of testicular cancer stage III who presents to the emergency department for evaluation of toe infection #. Nonhealing diabetic wound of left 3rd toe with cellulitis. Imaging concerning for osteomyelitis. Will admit patient and initiate empiric IV antibiotics. Obtaining CT scan. Consulted Infectious Disease and General surgery, appreciate assistance. #. CKD stage 4 status post left renal transplant. Continue mycophenolate and everolimus. Creatinine at baseline. Appreciate Nephrology input #. Paroxysmal atrial fibrillation. On Eliquis. Rate controlled in the ER #. Mixed hyperlipidemia. On statin #. Secondary hyperparathyroidism due to kidney disease. Continue calcifediol #. Insulin-dependent diabetes mellitus type 1. Continue home basal regimen. Initiating Accu-Cheks sliding scale insulin Med rec pending DVT prophylaxis: Eliquis Full code Admit as inpatient and will require two night minimum hospital stay for IV antibiotics Time Spent With Patient Time: Total time managing care of this patient today ____ minutes. Quality Stroke Does the patient have a stroke diagnosis?: No VTE Prior VTE?: No VTE Risk Level:: Medical - moderate - high VTE Device Contraindication: Treatment Not Indicated VTE Drug Contraindication: N/A - Med Ordered
[2023-01-16] MEDS: Piperacillin Sodium/Tazobactam 3.375 GM in 0.9 % Sodium Chloride 50 ML IV (02:31)
--- NOTE | 2023-01-16 02:46 | MHC.EDTECH ---
Belongings list completed and placed in chart.
[2023-01-16 03:00] LABS: MANUAL DIFF FLAG NO
[2023-01-16 03:06] LABS: Basophils Percent Auto 0.3 % (0-2); Eosinophils Absolute Auto 0.1 X10*3/uL (0.0-0.4); Eosinophils Percent Auto 0.7 % (0-4); Hematocrit 45.2 % (42.0-52.0); Hemoglobin 14.8 g/dl (14.0-18.0); Imm Gran Pct Auto 0.9 % (0.0-0.4); Lymphocytes Absolute Auto 1.5 X10*3/uL (1.2-4.9); Lymphocytes Percent Auto 13.4 % (20-40); Mean Corpuscular HGB Conc 32.7 g/dl (31.0-36.0); Mean Corpuscular Hemoglobin 29.2 pg (27.0-33.0); Mean Corpuscular Volume 89.3 fL (80.0-98.0); Mean Platelet Volume 11.6 fL (9.4-12.4); Monocytes Absolute Auto 1.4 X10*3/uL (0.1-1.2); Monocytes Percent Auto 12.5 % (2-11); Neutrophils Absolute Auto 7.9 x10*3/uL (2.0-8.3); Neutrophils Percent Auto 72.2 % (45-73); Platelet Count 173 X10*3/uL (160-400); Red Blood Count 5.06 X10*6/uL (4.60-5.80); Red Cell Distribution Width 13.3 % (11.0-16.0); White Blood Count 10.9 X10*3/uL (4.8-10.8)
[2023-01-16 03:12] LABS: Anion Gap 16 (12-20); Blood Urea Nitrogen 20 mg/dL (9-16); Calcium 9.8 mg/dL (8.4-10.2); Carbon Dioxide 22 mmol/L (22-29); Chloride 104 mmol/L (96-108); Creatinine Clr Calc Pharmacy 55.6; Estimated Glomerular Filt Rate 42; Glucose Random 156 mg/dL (60-115); Sodium 138 mmol/L (135-145)
[2023-01-16] MEDS: vancomycin/NS 2,000 MG/500 ML PLAST..BAG 250 MG IV (03:23)
[2023-01-16] MEDS: cefEPime HCl 2 GM in 0.9 % Sodium Chloride 50 ML IV ×2 (06:04→17:52)
--- NOTE | 2023-01-16 06:37 | MHC.EDTECH ---
Hourly rounds completed,patient was placed on the telesales advisor and vitals were taken. Patient is resting comfortably at this time and call melgar within reach
[2023-01-16 07:22] LABS: Glucose, Whole Blood 181 mg/dL (60-115)
--- NOTE | 2023-01-16 07:46 | P.CONGS_ITS ---
History of Present Illness Consult details Consult date: 01/16/23 Requesting physician: Shine Young Narrative: 52-year-old male patient with history of diabetes, renal failure status post kidney transplant peripheral vascular disease status post right 4th toe amputation presenting with a persistent infection involving the tip of the left Third toe. He reports that the ulcer has been present for approximately 3 weeks. Had previous infections at this location and was [facility]. Skin was initially healed over the wound but then subsequently reopened. He reports feeling chills but denies a fever. He is admitted for IV antibiotics. Foot x-ray revealed subtle lucency of the 3rd distal phalanx which could represent osteomyelitis. Chronic changes were noted in the left great toe as well consistent with prior episodes of osteomyelitis. CT of the left foot revealed cortical erosion/ destructive change involving the 3rd distal phalanx without intramedullary lucency. These findings represent sequela of osteomyelitis activity. Chronic fragmentation of the distal aspect of the 1st proximal phalanx with well corticated ossific densities representing sequela of previous osteomyelitis. No acute fracture or dislocation. Review of Systems Review of Systems: Yes all other systems are reviewed and are negative Constitutional: Constitutional: Reports chills, Denies fever(s), Denies he adache(s), Denies poor appetite and Denies weakness ENT: Denies headache(s) Cardiovascular: Cardiovascular: Denies chest pain, Denies irregular heart rhythm, Denies palpitations and Denies dyspnea Respiratory: Respiratory: Denies cough, Denies excessive phlegm production and Denies dyspnea Gastrointestinal: Gastrointestinal: Denies abdominal pain, Denies bloating, Denies change in bowel habits, Denies constipation, Denies heartburn, Denies diarrhea, Denies nausea and Denies vomiting Genitourinary: Genitourinary: Denies difficulty urinating and Denies urinary frequency Musculoskeletal: Musculoskeletal: Reports as per HPI, Denies back pain and Denies muscle weakness Integumentary/Breasts: Skin/Breast: Denies changing lesions and Denies unusual bruising Neurologic: Denies headache(s), Denies paresthesias and Denies weakness Psychiatric: Psychiatric: Denies anxiety and Denies depression Endocrine: Endocrine: Denies palpitations Hematologic/Lymphatic: Hematologic/Lymphatic: Denies lymphadenopathy PMFSH Past Medical History Medical History 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 chronic kidney disease Bleeding internal hemorrhoids Carpal tunnel syndrome on left Chronic right shoulder pain Diabetes mellitus with diabetic nephropathy, with long-term current use of insulin Diabetes mellitus with foot ulcer Diabetic ulcer of right foot End-stage renal disease on hemodialysis Hyperlipidemia Mixed dyslipidemia Multinodular goiter Osteomyelitis Osteomyelitis of left foot PAD (peripheral artery disease) Paresthesia and pain of extremity Peripheral vascular disease Refused pneumococcal vaccination S/P angiogram of extremity (10/08/22) Secondary hyperparathyroidism of renal origin Seminoma Testicular cancer Type 2 diabetes mellitus with chronic kidney disease Type 2 diabetes mellitus with hyperglycemia, with long-term current use of insulin Vaccination refused by patient Wound of right foot Family History Family History Father Unknown family medical history Mother Diabetes mellitus HTN (hypertension) CVD (cardiovascular disease) History of CVA (cerebrovascular accident) Stroke Sister Diabetes mellitus Daughter No problems noted. Sister No problems noted. Sister No problems noted. Surgical History Surgical History Amputated toe of right foot (10/13/22) History of kidney transplant Social History Social History Household Members: Spouse, Family and Children Housing: House Do you presently have visiting nurse or other home services: No Alcohol intake: never Patient Tobacco Use Status: Never used Tobacco e-Cigarette/Vaping Use: Never Used Advance Directives: No Advance Directives Information Provided: Yes service: No Current occupational status: disabled Current occupation: disability - kidney transplant. Left side dominant Meds Allergies Allergy/AdvReac Type Severity Reaction Status Date / Time No Known Allergies Allergy Verified 01/15/23 22:40 Active Medications: Current Medications Acetaminophen (Acetaminophen 325 Mg Tablet) 650 mg PO Q6H PRN PRN Reason: Pain, Mild (Pain Scale 1-3) Dextrose (Dextrose 50 % 25 Gm/50 Ml Syringe) 25 gm IVPUSH Q15M PRN; Protocol PRN Reason: per Hypoglycemia Standing Ord. Glucose (Glucose Gel 15 Gm Gel..Gram.) 15 gm PO Q15M PRN; Protocol PRN Reason: per Hypoglycemia Standing Ord. Cefepime HCl 2 gm/ Sodium (Chloride) 50 mls @ 100 mls/hr IV Q12H [facility] Last Admin: 01/16/23 06:04 Dose: 100 mls/hr Vancomycin HCl 1,500 mg/ (Sodium Chloride) 500 mls @ 333.333 mls/hr IV Q24H [facility] Insulin Human Lispro (Insulin Lispro 100 Unit/Ml 3 Ml Vial) 0 unit SUBCUT QIDACHS [facility]; Protocol Melatonin (Melatonin 3 Mg Tablet) 6 mg PO BEDTIME PRN PRN Reason: Insomnia Ondansetron HCl (Ondansetron Hcl 4 Mg/2 Ml Vial) 4 mg IVPUSH Q8H PRN PRN Reason: Nausea and Vomiting Pharmacy Consult (Consult Rx Vancomycin Dosing) 1 each MISCELLANE DAILY PRN PRN Reason: Consult order Pharmacy Consult (Consult Rx Perform Med Rec) 1 each MISCELLANE ONCE PRN PRN Reason: Consult order Sodium Chloride (0.9 % Sodium Chloride Flush 3 Ml Syringe) 3 ml IVFLUSH QSHIFT [facility] Home Medications Medication Instructions Recorded Confirmed Last Taken Type calcifediol 30 mcg capsule,24 30 mcg PO BEDTIME 03/14/20 01/16/23 10/05/22 History hr,extended release (Rayaldee) mycophenolate sodium 180 mg 540 mg PO BID 05/18/20 01/16/23 10/06/22 History tablet,delayed release pen needle, diabetic 31 gauge x #50 ea 06/05/20 11/26/22 Unknown History / apixaban 5 mg tablet 5 mg PO BID 10/12/20 01/16/23 10/06/22 History lancets 28 gauge (FreeStyle #100 ea 06/26/21 11/26/22 Unknown History Lancets) insulin aspart U-100 100 unit/mL 8 unit subcut TIDAC 10/26/21 01/16/23 10/06/22 History (3 mL) subcutaneous pen (Novolog FlexPen U-100 Insulin aspart) insulin glargine 100 unit/mL (3 21 unit subcut BEDTIME 10/26/21 01/16/23 10/05/22 History mL) subcutaneous pen (Lantus Solostar U-100 Insulin) mirtazapine 7.5 mg tablet 7.5 mg PO BEDTIME 09/26/22 01/16/23 10/05/22 History rosuvastatin 10 mg tablet 10 mg PO BEDTIME 10/06/22 01/16/23 10/05/22 History tacrolimus 1 mg capsule, 4 mg PO BID 10/06/22 01/16/23 10/06/22 History immediate-release amlodipine 5 mg tablet 5 mg PO DAILY 10/28/22 01/16/23 Unknown History everolimus (immunosuppressive) 0.75 mg PO BID 10/28/22 01/16/23 Unknown History 0.75 mg tablet valsartan 40 mg tablet 40 mg PO DAILY 10/28/22 01/16/23 Unknown History Physical Exam Vital Signs: Vital Signs: Last Vital Signs Temp 98.5 F 01/16/23 07:16 Pulse 78 01/16/23 07:16 Resp 18 01/16/23 07:16 BP 126/69 01/16/23 07:16 Pulse Ox 96 01/16/23 07:16 O2 Del Method Room Air 01/16/23 07:16 BMI result Body Mass Index 29.2 Const: General: cooperative and no acute distress Nutritional Appearance: well nourished Orientation/consciousness: patient oriented x3 Limitations: no limitations HEENT: Head: Yes normocephalic and Yes atraumatic Ears: hearing grossly normal bilaterally Resp: Effort & Inspection: normal respiratory effort, no audible wheezes, no cough and no respiratory distress Cardio: Jugular venous distension: no JVD GI: Inspection: Yes normal to inspection Skin: Other: Warm, dry, no rash Neuro: General: patient oriented x3 Extrem: Other: Right foot status post 4th toe amputation, wound well healed without evidence of ulceration or erythema. Callus noted on the plantar surface below the 4th metatarsal. No open wound is identified. Left foot with an open wound on the distal tip of the 3rd toe. Ulcer measured approximately 1 cm in diameter and 0.5 cm deep. There is minimal granulation noted at the base. Wounds were covered with silver alginate. Minimal tenderness is elicited with palpation of the ventral distal 3rd metatarsal head. No fluctuance or erythema appreciated. Chronic Charcot deformity identified bilaterally. General: Yes no clubbing, cyanosis or edema Results Labs 01/16/23 02:54 01/16/23 02:54 Labs: Abnormal lab results 01/15/23 01/15/23 01/16/23 Range/Units 23:09 23:10 02:54 WBC 10.9 H (4.8-10.8) X10*3/uL Immature Gran % (Auto) 1.0 H 0.9 H (0.0-0.4) % Lymph % (Auto) 17.9 L 13.4 L (20-40) % [place] % (Auto) 13.9 H 12.5 H (2-11) % [place] # (Auto) 1.3 H 1.4 H (0.1-1.2) X10*3/uL Abs Immat Gran (auto) 0.09 H 0.10 H (0.00-0.03) X10*3/uL BUN 20 H (9-16) mg/dL Creatinine 1.72 H (0.5-1.4) mg/dL POC Glucose (60-115) mg/dL Random Glucose 178 H (60-115) mg/dL 01/16/23 01/16/23 Range/Units 02:54 07:15 WBC (4.8-10.8) X10*3/uL Immature Gran % (Auto) (0.0-0.4) % Lymph % (Auto) (20-40) % [place] % (Auto) (2-11) % [place] # (Auto) (0.1-1.2) X10*3/uL Abs Immat Gran (auto) (0.00-0.03) X10*3/uL BUN 20 H (9-16) mg/dL Creatinine 1.74 H (0.5-1.4) mg/dL POC Glucose 181 H (60-115) mg/dL Random Glucose 156 H (60-115) mg/dL Short CBC 01/15/23 01/16/23 Range/Units 23:10 02:54 WBC 9.3 10.9 H (4.8-10.8) X10*3/uL Hgb 14.5 14.8 (14.0-18.0) g/dl Hct 44.4 45.2 (42.0-52.0) % Plt Count 168 173 (160-400) X10*3/uL BMP 01/15/23 01/16/23 23:09 02:54 Sodium 138 138 Potassium 4.0 4.0 Chloride 103 104 Carbon Dioxide 22 22 BUN 20 H 20 H Creatinine 1.72 H 1.74 H Calcium 9.7 D 9.8 Liver Function 08/03/23 Range/Units 23:09 Total Bilirubin 0.4 (0.0-1.0) mg/dL AST 10 (5-37) U/L ALT 8 (0-40) U/L Alkaline Phosphatase 91 (39-117) U/L Albumin 4.3 (3.5-5.0) g/dL All other labs normal. Assessment and Plan (1) Osteomyelitis of left foot: Status: Acute (2) Diabetes mellitus with foot ulcer: Qualifiers: Diabetes mellitus type: type 2 Diabetes mellitus [employer] insulin use: with chcf use Qualified Code(s): E11.621 - Type 2 diabetes mellitus with foot ulcer; L97.509 - Non-pressure chronic ulcer of other part of unspecified foot with unspecified severity; Z79.4 - penitentiary (current) use of insulin Status: Acute Plan Left foot 3rd toe osteomyelitis at the distal phalanx with an open wound. This may be a minimal to IV antibiotics and local wound care. If this is not successful, amputation of the 3rd toe may be necessary. I will follow along during his hospitalization. Time Spent With Patient Time: Total time managing care of this patient today ____ minutes. Procedures Date of Service Date of Service: 01/16/23
--- NOTE | 2023-01-16 08:30 | PC.NURSE ---
pt axox4, vss, respirations even and unlabored, skin wpd. am poc 181; no insulin coverage d/t pt refusing bfast. pt sleeping in stretcher; gen surgery to bedside. mri form completed and faxed. awaiting mri; denies questions/concerns at this time. call melgar within reach.
[2023-01-16 09:10] LABS: C Reactive Protein 5.17 mg/dL (< or = 0.50)
--- NOTE | 2023-01-16 09:24 | PHA.MEDREC ---
Pharmacy Consult ? Medication Reconciliation Pharmacy has completed the medication reconciliation. Confirmed with patient that he is on tacrolimus instead of everolimus. Updated med rec done by nursing.
--- NOTE | 2023-01-16 09:58 | PC.NURSE ---
called pharmacy about pt unverified meds.
[2023-01-16] MEDS: 0.9 % Sodium Chloride Flush 3 ML SYRINGE IVFLUSH ×2 (10:52→16:30)
[2023-01-16] MEDS: amLODIPine Besylate 5 MG TABLET PO (10:52)
[2023-01-16] MEDS: Apixaban 5 MG TABLET PO ×2 (10:52→20:50)
[2023-01-16] MEDS: Valsartan 40 MG TABLET PO (11:20)
[2023-01-16] MEDS: Tacrolimus 1 MG CAPSULE 4 MG PO ×2 (11:21→20:50)
[2023-01-16 12:37] LABS: Glucose, Whole Blood 126 mg/dL (60-115)
--- NOTE | 2023-01-16 12:57 | PC.NURSE ---
Pt disconnected from monitor to be brought to MRI, Glucose sensor removed and placed into personal belonging bag. all belongings sent with pt to MRI as he is going to be returning to overflow post MRI
--- NOTE | 2023-01-16 13:38 | P.EN_ITS ---
Event Note Date of Service: 01/16/23 Event Note: Day hospitalist update S fever resolving drainage from tip of L 3rd toe O Temp Pulse Resp BP Pulse Ox O2 Del Method 98.5 F 78 18 116/66 96 Room Air 01/16/23 07:16 01/16/23 07:16 01/16/23 07:16 01/16/23 10:54 01/16/23 07:16 01/16/23 07:16 Gen: in no acute distress HEENT: sclera anicteric, moist mucus membranes Neck: supple Lungs: clear to auscultation bilaterally Heart: regular rate and rhythm, no murmurs Abd: soft, non-tender, non-distended Ext: no edema. R foot s/p 4th toe amputation. L foot with ulcer on tip of 3rd toe with some clear drainage Skin: warm/well-perfused Neuro: alert and oriented x3, no focal findings Psych: appropriate affect Impressions Foot X-Ray 01/15/23 23:03 IMPRESSION: * Subtle lucency of the third distal phalangeal tuft could represent osteomyelitis. MRI without and with contrast could confirm. * Chronic destructive changes and associated remodeling of the great toe phalanges in keeping with sequela of prior osteomyelitis. Foot CT 01/16/23 05:35 IMPRESSION: * Cortical erosion/destructive change involving the third distal phalanx without intramedullary lucency. These findings represent sequela of osteomyelitis, activity which is unknown on the basis of CT. Recommend MRI foot without with contrast for further evaluation. * Chronic fragmentation of the distal aspect of the first proximal phalanx with well-corticated ossific densities represent sequela of previous osteomyelitis. * No acute fracture or dislocation. A/P d1 52yo M with PAD s/p R 4th toe amputation, CKD4 s/p renal transplant, DM1, hx stage 3 testicular CA, HTN, HLD admitted for infection of L 3rd toe with concern of osteomyelitis nonhealing DM ulcer of L 3rd toe with possible osteomyelitis - vanco + cefepime d1, follow BCx, MRI + ID consult pending, Gen Surg following CKD4 renal transplant - continue MMF + tacrolimus - SCr at baseline - continue calcifediol HTN - continue amlodipine + valsartan paroxysmal AF - continue apixaban HLD - continue statin mood disorder - continue mirtazapine DM1 -A1c 7, 11/26/22 - basal-bolus insulin VTE ppx - apixaban dispo - TBD In my clinical judgment, the patient requires continued inpatient h ospitalization for the following reasons: IV ABX, possible amputation Time Spent With Patient Time: Total time managing care of this patient today ____ minutes.
--- NOTE | 2023-01-16 14:07 | PC.NURSE ---
Patient transferred from ED to overflow. Alert and oriented. Denies pain or discomfort. Left 3rd toe red, swollen, and warm. No drainage to open area on back of toe. States hx of infections in toes. No BP`s/ IV`s on right side. Resting comfortably at this time.
--- NOTE | 2023-01-16 15:24 | PC.NURSE ---
report called to accepting unit, transport notified
--- NOTE | 2023-01-16 16:01 | P.CNID_ITS ---
History of Present Illness Data of Consult Service Date: 01/16/23 Requesting physician: Noel Castro Primary Care Provider: MD TALI Zavala Reason for consult: recurrent toe infection He is here for left third toe infection concern. There is OM of distal part of toe on MRI. He has just finished in November six weeks IV Ertapenem for infection around area of right fourth toe. Infection was Group B strep and serratia. He has had right fourth toe removal 10/2022. Review of Systems Review of Systems: Yes all other systems are reviewed and are negative [facility] [place] Past Medical History Medical History (Updated 01/16/23 @ 16:07 by Rhiannon Soto MD) 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 chronic kidney disease Bleeding internal hemorrhoids Carpal tunnel syndrome on left Chronic right shoulder pain Diabetes mellitus with diabetic nephropathy, with long-term current use of insulin Diabetes mellitus with foot ulcer Diabetic ulcer of right foot End-stage renal disease on hemodialysis Hyperlipidemia Mixed dyslipidemia Multinodular goiter Osteomyelitis Osteomyelitis of left foot Osteomyelitis of third toe of left foot PAD (peripheral artery disease) Paresthesia and pain of extremity Peripheral vascular disease Refused pneumococcal vaccination S/P angiogram of extremity (10/08/22) Secondary hyperparathyroidism of renal origin Seminoma Testicular cancer Type 2 diabetes mellitus with chronic kidney disease Type 2 diabetes mellitus with hyperglycemia, with long-term current use of insulin Vaccination refused by patient Wound of right foot Family History Family History Father Unknown family medical history Mother Diabetes mellitus HTN (hypertension) CVD (cardiovascular disease) History of CVA (cerebrovascular accident) Stroke Sister Diabetes mellitus Daughter No problems noted. Sister No problems noted. Sister No problems noted. Family history: reviewed and not pertinent Surgical History Surgical History Amputated toe of right foot (10/13/22) History of kidney transplant Social History Social History Household Members: Spouse and Children Housing: House Do you presently have visiting nurse or other home services: No Alcohol intake: never Patient Tobacco Use Status: Never used Tobacco e-Cigarette/Vaping Use: Never Used Advance Directives Date on File: 01/16/23 service: No Current occupational status: disabled Current occupation: disability - kidney transplant. Left side dominant Meds Allergies Allergy/AdvReac Type Severity Reaction Status Date / Time No Known Allergies Allergy Verified 01/15/23 22:40 Active Medications: Current Medications Acetaminophen (Acetaminophen 325 Mg Tablet) 650 mg PO Q6H PRN PRN Reason: Pain, Mild (Pain Scale 1-3) Amlodipine Besylate (Amlodipine Besylate 5 Mg Tablet) 5 mg PO DAILY [facility]; Protocol Last Admin: 01/16/23 10:52 Dose: 5 mg Apixaban (Apixaban 5 Mg Tablet) 5 mg PO BID [facility] Last Admin: 01/16/23 10:52 Dose: 5 mg Atorvastatin Calcium (Atorvastatin Calcium 40 Mg Tablet) 40 mg PO BEDTIME [facility] Dextrose (Dextrose 50 % 25 Gm/50 Ml Syringe) 25 gm IVPUSH Q15M PRN; Protocol PRN Reason: per Hypoglycemia Standing Ord. Glucose (Glucose Gel 15 Gm Gel..Gram.) 15 gm PO Q15M PRN; Protocol PRN Reason: per Hypoglycemia Standing Ord. Cefepime HCl 2 gm/ Sodium (Chloride) 50 mls @ 100 mls/hr IV Q12H [facility] Last Infusion: 01/16/23 07:59 Dose: Infused Vancomycin HCl 1,500 mg/ (Sodium Chloride) 500 mls @ 333.333 mls/hr IV Q24H [facility] Insulin Glargine (Insulin Glargine,Hum.Rec.Anlog 100 Unit/Ml 10 Ml Vial) 21 unit SUBCUT BEDTIME [facility] Insulin Human Lispro (Insulin Lispro 100 Unit/Ml 3 Ml Vial) 0 unit SUBCUT QIDACHS [facility]; Protocol Last Admin: 01/16/23 13:14 Dose: Not Given Melatonin (Melatonin 3 Mg Tablet) 6 mg PO BEDTIME PRN PRN Reason: Insomnia Mirtazapine (Mirtazapine 7.5 Mg Tablet) 7.5 mg PO BEDTIME [facility] Mycophenolate Sodium (Mycophenolate Sodium 180 Mg Tablet.) 540 mg PO BID [facility] Non-Formulary Medication (Calcifediol [Rayaldee]) 30 mcg PO BEDTIME [facility] Ondansetron HCl (Ondansetron Hcl 4 Mg/2 Ml Vial) 4 mg IVPUSH Q8H PRN PRN Reason: Nausea and Vomiting Pharmacy Consult (Consult Rx Vancomycin Dosing) 1 each MISCELLANE DAILY PRN PRN Reason: Consult order Pharmacy Consult (Consult Rx Perform Med Rec) 1 each MISCELLANE ONCE PRN PRN Reason: Consult order Sodium Chloride (0.9 % Sodium Chloride Flush 3 Ml Syringe) 3 ml IVFLUSH QSHIFT [facility] Last Admin: 01/16/23 10:52 Dose: 3 ml Tacrolimus (Tacrolimus 1 Mg Capsule) 4 mg PO BID [facility] Last Admin: 01/16/23 11:21 Dose: 4 mg Valsartan (Valsartan 40 Mg Tablet) 40 mg PO DAILY [facility]; Protocol Last Admin: 01/16/23 11:20 Dose: 40 mg Home Medications Medication Instructions Recorded Confirmed Last Taken Type calcifediol 30 mcg capsule,24 30 mcg PO BEDTIME 03/14/20 01/16/23 10/05/22 History hr,extended release (Rayaldee) mycophenolate sodium 180 mg 540 mg PO BID 05/18/20 01/16/23 10/06/22 History tablet,delayed release pen needle, diabetic 31 gauge x #50 ea 06/05/20 11/26/22 Unknown History 08/28 apixaban 5 mg tablet 5 mg PO BID 10/12/20 01/16/23 10/06/22 History lancets 28 gauge (FreeStyle #100 ea 06/26/21 11/26/22 Unknown History Lancets) insulin aspart U-100 100 unit/mL 8 unit subcut TIDAC 10/26/21 01/16/23 10/06/22 History (3 mL) subcutaneous pen (Novolog FlexPen U-100 Insulin aspart) insulin glargine 100 unit/mL (3 21 unit subcut BEDTIME 10/26/21 01/16/23 10/05/22 History mL) subcutaneous pen (Lantus Solostar U-100 Insulin) mirtazapine 7.5 mg tablet 7.5 mg PO BEDTIME 09/26/22 01/16/23 10/05/22 History rosuvastatin 10 mg tablet 10 mg PO BEDTIME 10/06/22 01/16/23 10/05/22 History tacrolimus 1 mg capsule, 4 mg PO BID 10/06/22 01/16/23 10/06/22 History immediate-release amlodipine 5 mg tablet 5 mg PO DAILY 10/28/22 01/16/23 Unknown History valsartan 40 mg tablet 40 mg PO DAILY 10/28/22 01/16/23 Unknown History Physical Exam Vital Signs: Vital Signs: Last Vital Signs Temp 98.6 F 01/16/23 15:44 Pulse 76 01/16/23 15:44 Resp 16 01/16/23 15:44 BP 126/68 01/16/23 15:44 Pulse Ox 98 01/16/23 15:44 O2 Del Method Room Air 01/16/23 15:44 BMI result Body Mass Index 29.2 Extrem: Other: neuropathy and swelling left third toe Results Labs 01/16/23 02:54 01/16/23 02:54 Labs: Short CBC 01/15/23 01/16/23 Range/Units 23:10 02:54 WBC 9.3 10.9 H (4.8-10.8) X10*3/uL Hgb 14.5 14.8 (14.0-18.0) g/dl Hct 44.4 45.2 (42.0-52.0) % Plt Count 168 173 (160-400) X10*3/uL BMP 01/15/23 01/16/23 23:09 02:54 Sodium 138 138 Potassium 4.0 4.0 Chloride 103 104 Carbon Dioxide 22 22 BUN 20 H 20 H Creatinine 1.72 H 1.74 H Calcium 9.7 D 9.8 Liver Function 01/15/23 Range/Units 23:09 Total Bilirubin 0.4 (0.0-1.0) mg/dL AST 10 (5-37) U/L ALT 8 (0-40) U/L Alkaline Phosphatase 91 (39-117) U/L Albumin 4.3 (3.5-5.0) g/dL Assessment and Plan (1) Osteomyelitis of third toe of left foot: Status: Acute He has ongoing OM of feet. He just finished six weeks of IV antibiotics weeks ago. Plan IV antibiotics while here and no residential IV antibiotics at this episode since he just finished them. Removal per Vascular of affected bone. Time Spent With Patient Time: Total time managing care of this patient today ____ minutes.
--- NOTE | 2023-01-16 16:09 | PM.CNNEP ---
History of Present Illness Reason for Consult Consult date: 01/16/23 Chief Complaint Chief complaint: Toe infection History of Present Illness Narrative: Mr. Raheem Castro is a 52-year-old gentleman with past medical history of ESRD s/p DDKT 10/22/2016 with bL Cr 1.6-1.7mg/dL who presents for left third toe infection with OM on MRI. He has just finished in November six weeks IV Ertapenem for infection around area of right fourth toe. He has had right fourth toe removal 10/2022. Review of Systems Review of Systems All other systems are reviewed and are negative Constitutional: Reports as per HPI and Reports no additional constitutional complaints Eyes: Reports as per HPI and Reports no additional eye complaints Reports system reviewed and no additional complaints, except as documented Cardiovascular: Reports as per HPI and Reports no additional cardiovascular complaints Respiratory: Reports as per HPI and Reports no additional respiratory complaints Gastrointestinal: Reports as per HPI and Reports no additional gastrointestinal complaints Genitourinary: Reports no additional female genitourinary complaints Musculoskeletal: Reports no additional musculoskeletal complaints Skin/Breast: Reports system reviewed and no additional complaints, except as docu Psychiatric: Reports no additional psychiatric complaints Endocrine: Reports no additional endocrine complaints Hematologic/Lymphatic: Reports no additional hematologic/lymphatic complaints Allergic/Immunologic: Reports no additional allergic/immunologic complaints Reports system reviewed and no additional complaints, except as documented and Reports Abnormal speech present [facility] Past Medical History Medical History (Updated 01/16/23 @ 16:07 by Rhiannon Soto MD) 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 chronic kidney disease Bleeding internal hemorrhoids Carpal tunnel syndrome on left Chronic right shoulder pain Diabetes mellitus with diabetic nephropathy, with long-term current use of insulin Diabetes mellitus with foot ulcer Diabetic ulcer of right foot End-stage renal disease on hemodialysis Hyperlipidemia Mixed dyslipidemia Multinodular goiter Osteomyelitis Osteomyelitis of left foot Osteomyelitis of third toe of left foot PAD (peripheral artery disease) Paresthesia and pain of extremity Peripheral vascular disease Refused pneumococcal vaccination S/P angiogram of extremity (10/08/22) Secondary hyperparathyroidism of renal origin Seminoma Testicular cancer Type 2 diabetes mellitus with chronic kidney disease Type 2 diabetes mellitus with hyperglycemia, with long-term current use of insulin Vaccination refused by patient Wound of right foot Family History Family History Father Unknown family medical history Mother Diabetes mellitus HTN (hypertension) CVD (cardiovascular disease) History of CVA (cerebrovascular accident) Stroke Sister Diabetes mellitus Daughter No problems noted. Sister No problems noted. Sister No problems noted. Family history: reviewed and not pertinent Surgical History Surgical History Amputated toe of right foot (10/13/22) History of kidney transplant Social History Social History Household Members: Spouse and Children Housing: House Do you presently have visiting nurse or other home services: No Alcohol intake: never Patient Tobacco Use Status: Never used Tobacco e-Cigarette/Vaping Use: Never Used Advance Directives Date on File: 01/16/23 service: No Current occupational status: disabled Current occupation: disability - kidney transplant. Left side dominant Meds Allergies Allergy/AdvReac Type Severity Reaction Status Date / Time No Known Allergies Allergy Verified 01/15/23 22:40 Active Medications: Current Medications Acetaminophen (Acetaminophen 325 Mg Tablet) 650 mg PO Q6H PRN PRN Reason: Pain, Mild (Pain Scale 1-3) Amlodipine Besylate (Amlodipine Besylate 5 Mg Tablet) 5 mg PO DAILY [facility]; Protocol Last Admin: 01/16/23 10:52 Dose: 5 mg Apixaban (Apixaban 5 Mg Tablet) 5 mg PO BID [facility] Last Admin: 01/16/23 10:52 Dose: 5 mg Atorvastatin Calcium (Atorvastatin Calcium 40 Mg Tablet) 40 mg PO BEDTIME [facility] Dextrose (Dextrose 50 % 25 Gm/50 Ml Syringe) 25 gm IVPUSH Q15M PRN; Protocol PRN Reason: per Hypoglycemia Standing Ord. Glucose (Glucose Gel 15 Gm Gel..Gram.) 15 gm PO Q15M PRN; Protocol PRN Reason: per Hypoglycemia Standing Ord. Cefepime HCl 2 gm/ Sodium (Chloride) 50 mls @ 100 mls/hr IV Q12H [facility] Last Infusion: 01/16/23 07:59 Dose: Infused Vancomycin HCl 1,500 mg/ (Sodium Chloride) 500 mls @ 333.333 mls/hr IV Q24H [facility] Insulin Glargine (Insulin Glargine,Hum.Rec.Anlog 100 Unit/Ml 10 Ml Vial) 21 unit SUBCUT BEDTIME [facility] Insulin Human Lispro (Insulin Lispro 100 Unit/Ml 3 Ml Vial) 0 unit SUBCUT QIDACHS [facility]; Protocol Last Admin: 01/16/23 13:14 Dose: Not Given Melatonin (Melatonin 3 Mg Tablet) 6 mg PO BEDTIME PRN PRN Reason: Insomnia Mirtazapine (Mirtazapine 7.5 Mg Tablet) 7.5 mg PO BEDTIME [facility] Mycophenolate Sodium (Mycophenolate Sodium 180 Mg Tablet.) 540 mg PO BID [facility] Non-Formulary Medication (Calcifediol [Rayaldee]) 30 mcg PO BEDTIME [facility] Ondansetron HCl (Ondansetron Hcl 4 Mg/2 Ml Vial) 4 mg IVPUSH Q8H PRN PRN Reason: Nausea and Vomiting Pharmacy Consult (Consult Rx Vancomycin Dosing) 1 each MISCELLANE DAILY PRN PRN Reason: Consult order Pharmacy Consult (Consult Rx Perform Med Rec) 1 each MISCELLANE ONCE PRN PRN Reason: Consult order Sodium Chloride (0.9 % Sodium Chloride Flush 3 Ml Syringe) 3 ml IVFLUSH QSHIFT [facility] Last Admin: 01/16/23 10:52 Dose: 3 ml Tacrolimus (Tacrolimus 1 Mg Capsule) 4 mg PO BID [facility] Last Admin: 01/16/23 11:21 Dose: 4 mg Valsartan (Valsartan 40 Mg Tablet) 40 mg PO DAILY [facility]; Protocol Last Admin: 01/16/23 11:20 Dose: 40 mg Home Medications Medication Instructions Recorded Confirmed Last Taken Type calcifediol 30 mcg capsule,24 30 mcg PO BEDTIME 03/14/20 01/16/23 10/05/22 History hr,extended release (Rayaldee) mycophenolate sodium 180 mg 540 mg PO BID 05/18/20 01/16/23 10/06/22 History tablet,delayed release pen needle, diabetic 31 gauge x #50 ea 06/05/20 11/26/22 Unknown History 16 apixaban 5 mg tablet 5 mg PO BID 10/12/20 01/16/23 10/06/22 History lancets 28 gauge (FreeStyle #100 ea 06/26/21 11/26/22 Unknown History Lancets) insulin aspart U-100 100 unit/mL 8 unit subcut TIDAC 10/26/21 01/16/23 10/06/22 History (3 mL) subcutaneous pen (Novolog FlexPen U-100 Insulin aspart) insulin glargine 100 unit/mL (3 21 unit subcut BEDTIME 10/26/21 01/16/23 10/05/22 History mL) subcutaneous pen (Lantus Solostar U-100 Insulin) mirtazapine 7.5 mg tablet 7.5 mg PO BEDTIME 09/26/22 01/16/23 10/05/22 History rosuvastatin 10 mg tablet 10 mg PO BEDTIME 10/06/22 01/16/23 10/05/22 History tacrolimus 1 mg capsule, 4 mg PO BID 10/06/22 01/16/23 10/06/22 History immediate-release amlodipine 5 mg tablet 5 mg PO DAILY 10/28/22 01/16/23 Unknown History valsartan 40 mg tablet 40 mg PO DAILY 10/28/22 01/16/23 Unknown History Physical Exam Vital Signs: Last Vital Signs Temp 98.6 F 01/16/23 15:44 Pulse 76 01/16/23 15:44 Resp 16 01/16/23 15:44 BP 126/68 01/16/23 15:44 Pulse Ox 98 01/16/23 15:44 O2 Del Method Room Air 01/16/23 15:44 BMI result Body Mass Index 29.2 Const Orientation/consciousness: patient oriented x3 Resp Effort & Inspection: normal respiratory effort, no audible wheezes, no cough and no respiratory distress Cardio Jugular venous distension: no JVD Neuro General: patient oriented x3 Extrem General: Yes no clubbing, cyanosis or edema Results Lab Results 01/16/23 02:54 01/16/23 02:54 Lab results: Chemistry 01/15/23 01/16/23 23:09 02:54 Sodium 138 138 Potassium 4.0 4.0 Carbon Dioxide 22 22 BUN 20 H 20 H Creatinine 1.72 H 1.74 H Calcium 9.7 D 9.8 Hematology 01/15/23 01/16/23 23:10 02:54 WBC 9.3 10.9 H Hgb 14.5 14.8 Plt Count 168 173 Assessment and Plan (1) Osteomyelitis of third toe of left foot: Status: Acute He has ongoing OM of feet. He just finished six weeks of IV antibiotics weeks ago. (2) Renal transplant recipient: Status: Acute Plan Mr. Raheem Castro is a 52-year-old gentleman with past medical history of ESRD s/p DDKT 10/22/2016 with bL Cr 1.6-1.7mg/dL who presents for left third toe infection with OM on MRI. He has just finished in November six weeks IV Ertapenem for infection around area of right fourth toe. He has had right fourth toe removal 10/2022. 1. ESRD s/p DDKT CKD of allograft with BL Cr 1.6-1.7mg/dL immunosuppressed with Tac 4mg BID and Myfortic 540 BID PLan: - c/w Tac 4mg dosed 7aM and 7PM - check Tac trough at 7AM before AM dose - c/w Myfortic 540mg BID - Abx per ID - Surgical management of OM likely needed Time Spent With Patient Time: Total time managing care of this patient today ____ minutes. Procedures Date of Service Date of Service: 01/16/23
[2023-01-16 16:18] LABS: Glucose, Whole Blood 135 mg/dL (60-115)
[2023-01-16 20:04] LABS: Glucose, Whole Blood 241 mg/dL (60-115)
[2023-01-16] MEDS: Atorvastatin Calcium 40 MG TABLET PO (20:50)
[2023-01-16] MEDS: Mirtazapine 7.5 MG TABLET PO (20:50)
[2023-01-16] MEDS: Mycophenolate Sodium 180 MG TABLET.DR 540 MG PO (20:50)
[2023-01-16] MEDS: Insulin Lispro 100 UNIT/ML 3 ML VIAL SUBCUT (20:51)
[2023-01-16] MEDS: Insulin Glargine,Hum.rec.anlog 100 UNIT/ML 10 ML VIAL 21 UNIT SUBCUT (20:52)
[2023-01-17] MEDS: vancomycin HCL 1,500 MG in 0.9 % Sodium Chloride 500 ML 333.33 MG IV (03:11)
[2023-01-17 03:29] VITALS: BP 121/64; PULSE 79; RESP 16; TEMP 37.2; O2SAT 94
[2023-01-17] MEDS: cefEPime HCl 2 GM in 0.9 % Sodium Chloride 50 ML IV ×2 (05:57→17:12)
[2023-01-17 07:53] VITALS: BP 133/77; PULSE 80; RESP 15; TEMP 36.8; O2SAT 96
[2023-01-17] MEDS: Insulin Lispro 100 UNIT/ML 3 ML VIAL SUBCUT ×3 (08:15→21:46)
[2023-01-17] MEDS: Mycophenolate Sodium 180 MG TABLET.DR 540 MG PO ×2 (08:16→21:45)
[2023-01-17] MEDS: Apixaban 5 MG TABLET PO (08:16)
[2023-01-17] MEDS: Tacrolimus 1 MG CAPSULE 4 MG PO ×2 (08:16→21:45)
[2023-01-17] MEDS: amLODIPine Besylate 5 MG TABLET PO (08:16)
[2023-01-17] MEDS: Valsartan 40 MG TABLET PO (08:16)
[2023-01-17] MEDS: 0.9 % Sodium Chloride Flush 3 ML SYRINGE IVFLUSH ×2 (08:19→15:12)
[2023-01-17 08:56] LABS: Hematocrit 45.3 % (42.0-52.0); Hemoglobin 14.7 g/dl (14.0-18.0); Mean Corpuscular HGB Conc 32.5 g/dl (31.0-36.0); Mean Corpuscular Hemoglobin 29.6 pg (27.0-33.0); Mean Corpuscular Volume 91.3 fL (80.0-98.0); Mean Platelet Volume 11.1 fL (9.4-12.4); Platelet Count 162 X10*3/uL (160-400); Red Blood Count 4.96 X10*6/uL (4.60-5.80); Red Cell Distribution Width 13.5 % (11.0-16.0); White Blood Count 8.5 X10*3/uL (4.8-10.8)
[2023-01-17 09:13] LABS: Anion Gap 14 (12-20); Blood Urea Nitrogen 19 mg/dL (9-16); Calcium 9.5 mg/dL (8.4-10.2); Carbon Dioxide 22 mmol/L (22-29); Chloride 107 mmol/L (96-108); Creatinine Clr Calc Pharmacy 53.8; Estimated Glomerular Filt Rate 40; Glucose Random 147 mg/dL (60-115); Potassium 4.1 mmol/L (3.3-5.1); Sodium 139 mmol/L (135-145)
[2023-01-17 09:48] LABS: Erythrocyte Sedimentation Rate 38 MM/HR (0-15)
--- NOTE | 2023-01-17 09:53 | HO.PM.IMPN ---
Subjective Subjective Date of Service: 01/17/23 Interval History: no fever wishes to proceed with amputation Review of Systems Review of Systems: Yes all other systems are reviewed and are negative Physical Exam Vital Signs: Vital Signs: Last Vital Signs Temp 98.3 F 01/17/23 07:53 Pulse 80 01/17/23 07:53 Resp 15 01/17/23 07:53 BP 133/77 01/17/23 07:53 Pulse Ox 96 01/17/23 07:53 O2 Del Method Room Air 01/17/23 07:53 BMI result Body Mass Index 29.2 Gen: in no acute distress HEENT: sclera anicteric, moist mucus membranes Neck: supple Lungs: clear to auscultation bilaterally Heart: regular rate and rhythm, no murmurs Abd: soft, non-tender, non-distended Ext: no edema.? R foot s/p 4th toe amputation.? L foot with ulcer on tip of darkened and swollen 3rd toe with some clear drainage Skin: warm/well-perfused Neuro: alert and oriented x3, no focal findings Psych: appropriate affect Objective Data Active Medications Acetaminophen (Acetaminophen 325 Mg Tablet) 650 mg PO Q6H PRN PRN Reason: Pain, Mild (Pain Scale 1-3) Amlodipine Besylate (Amlodipine Besylate 5 Mg Tablet) 5 mg PO DAILY [facility]; Protocol Last Admin: 01/17/23 08:16 Dose: 5 mg Documented By: CUATE Apixaban (Apixaban 5 Mg Tablet) 5 mg PO BID [facility] Last Admin: 01/17/23 08:16 Dose: 5 mg Documented By: CUATE Atorvastatin Calcium (Atorvastatin Calcium 40 Mg Tablet) 40 mg PO BEDTIME [facility] Last Admin: 01/16/23 20:50 Dose: 40 mg Documented By: MOOSE Dextrose (Dextrose 50 % 25 Gm/50 Ml Syringe) 25 gm IVPUSH Q15M PRN; Protocol PRN Reason: per Hypoglycemia Standing Ord. Glucose (Glucose Gel 15 Gm Gel..Gram.) 15 gm PO Q15M PRN; Protocol PRN Reason: per Hypoglycemia Standing Ord. Cefepime HCl 2 gm/ Sodium (Chloride) 50 mls @ 100 mls/hr IV Q12H [facility] Last Infusion: 01/17/23 06:23 Dose: 0 mls/hr Documented By: HO.MATTHEP Vancomycin HCl 1,500 mg/ (Sodium Chloride) 500 mls @ 333.333 mls/hr IV Q24H [facility] Last Infusion: 01/17/23 04:48 Dose: 0 mls/hr Documented By: MOOSE Insulin Glargine (Insulin Glargine,Hum.Rec.Anlog 100 Unit/Ml 10 Ml Vial) 21 unit SUBCUT BEDTIME [facility] Last Admin: 01/16/23 20:52 Dose: 21 unit Documented By: MOOSE Insulin Human Lispro (Insulin Lispro 100 Unit/Ml 3 Ml Vial) 0 unit SUBCUT QIDACHS [facility]; Protocol Last Admin: 01/17/23 08:15 Dose: 2 unit Documented By: CUATE Melatonin (Melatonin 3 Mg Tablet) 6 mg PO BEDTIME PRN PRN Reason: Insomnia Mirtazapine (Mirtazapine 7.5 Mg Tablet) 7.5 mg PO BEDTIME [facility] Last Admin: 01/16/23 20:50 Dose: 7.5 mg Documented By: MOOSE Mycophenolate Sodium (Mycophenolate Sodium 180 Mg Tablet.) 540 mg PO BID [facility] Last Admin: 01/17/23 08:16 Dose: 540 mg Documented By: CUATE Non-Formulary Medication (Calcifediol [Rayaldee]) 30 mcg PO BEDTIME [facility] Ondansetron HCl (Ondansetron Hcl 4 Mg/2 Ml Vial) 4 mg IVPUSH Q8H PRN PRN Reason: Nausea and Vomiting Pharmacy Consult (Consult Rx Vancomycin Dosing) 1 each MISCELLANE DAILY PRN PRN Reason: Consult order Pharmacy Consult (Consult Rx Perform Med Rec) 1 each MISCELLANE ONCE PRN PRN Reason: Consult order Sodium Chloride (0.9 % Sodium Chloride Flush 3 Ml Syringe) 3 ml IVFLUSH QSHIFT [facility] Last Admin: 01/17/23 08:19 Dose: 3 ml Documented By: CUATE Tacrolimus (Tacrolimus 1 Mg Capsule) 4 mg PO BID [facility] Last Admin: 01/17/23 08:16 Dose: 4 mg Documented By: CUATE Valsartan (Valsartan 40 Mg Tablet) 40 mg PO DAILY [facility]; Protocol Last Admin: 01/17/23 08:16 Dose: 40 mg Documented By: CUATE Labs 01/17/23 08:35 01/17/23 08:35 Labs: Laboratory Results - last 24 hr 01/16/23 01/16/23 01/16/23 12:33 16:14 20:00 MCV MCH MCHC RDW Plt Count MPV Absolute Nucleated RBC Nucleated RBC % (auto) ESR Anion Gap Estim Creat Clear Calc Estimated GFR POC Glucose 126 H 135 H 241 H Random Glucose Calcium 01/17/23 01/17/23 01/17/23 08:35 08:35 08:35 MCV 91.3 MCH 29.6 MCHC 32.5 RDW 13.5 Plt Count 162 MPV 11.1 Absolute Nucleated RBC 0.000 Nucleated RBC % (auto) 0.0 ESR 38 H Anion Gap 14 Estim Creat Clear Calc 53.8 Estimated GFR 40 POC Glucose Random Glucose 147 H Calcium 9.5 ITS Impressions Foot X-Ray 01/15/23 23:03 IMPRESSION: * Subtle lucency of the third distal phalangeal tuft could represent osteomyelitis. MRI without and with contrast could confirm. * Chronic destructive changes and associated remodeling of the great toe phalanges in keeping with sequela of prior osteomyelitis. Foot CT 01/16/23 05:35 IMPRESSION: * Cortical erosion/destructive change involving the third distal phalanx without intramedullary lucency. These findings represent sequela of osteomyelitis, activity which is unknown on the basis of CT. Recommend MRI foot without with contrast for further evaluation. * Chronic fragmentation of the distal aspect of the first proximal phalanx with well-corticated ossific densities represent sequela of previous osteomyelitis. * No acute fracture or dislocation. Foot MRI 01/16/23 13:49 IMPRESSION: Soft tissue ulceration at the distal aspect of the 3rd toe with underlying osteomyelitis of the 3rd distal phalanx. No abscess. Microbiology Microbiology Results: Microbiology 01/16/23 02:54 Blood Culture - Preliminary Blood - Venous No growth after 24 hours. 01/15/23 23:09 Blood Culture - Preliminary Blood - Venous Prelim: GPC Gram Stain only Assessment and Plan (1) Osteomyelitis: Status: Inactive (2) Wound of right foot: Status: Inactive Plan d1 52yo M with PAD s/p R 4th toe amputation, CKD4 s/p renal transplant, DM1, hx stage 3 testicular CA, HTN, HLD admitted for infection of L 3rd toe and found to have osteomyelitis nonhealing DM ulcer of L 3rd toe with osteomyelitis GPC bacteremia - vanco + cefepime d2, follow BCx - ID consulted, recommend against long-term IV ABX to cure toe as he just had a 6-week course though if truly bactermic may require another course - Gen Surg consulted, plan amputation of toe on 01/19/23 CKD4 renal transplant - continue MMF + tacrolimus, level pending - SCr at baseline - continue calcifediol HTN - continue amlodipine + valsartan paroxysmal AF - continue apixaban HLD - continue statin mood disorder - continue mirtazapine DM1 - A1c 7, 11/26/22 - basal-bolus insulin VTE ppx - apixaban dispo - anticipate eventual home with VNA In my clinical judgment, the patient requires continued inpatient hospitalization for the following reasons: IV ABX, bacteremia, amputation Time Spent With Patient Time: Total time managing care of this patient today __45__ minutes. Quality Stroke Does the patient have a stroke diagnosis?: No VTE Prior VTE?: No VTE Risk Level:: Medical - moderate - high VTE Device Contraindication: Treatment Not Indicated VTE Drug Contraindication: N/A - Med Ordered
--- NOTE | 2023-01-17 10:21 | P.PNGS_ITS ---
Subjective Subjective Date of Service: 01/17/23 Interval history: reports some pain in his left foot, denies any new symptoms. He reports today he would like to undergo amputation of the tip of the left 3rd toe. Physical Exam Vital Signs: Vital Signs: Last Vital Signs Temp 98.3 F 01/17/23 07:53 Pulse 80 01/17/23 07:53 Resp 15 01/17/23 07:53 BP 133/77 01/17/23 07:53 Pulse Ox 96 01/17/23 07:53 O2 Del Method Room Air 01/17/23 07:53 BMI result Body Mass Index 29.2 Const: General: no acute distress Nutritional Appearance: well nourished Orientation/consciousness: patient oriented x3 Limitations: no limitations Resp: Effort & Inspection: normal respiratory effort, no audible wheezes, no cough and no respiratory distress Skin: General skin exam: no rashes or lesions noted Neuro: General: patient oriented x3 Extrem: Other: Dressings changed to left foot. Callus noted over tip of left 3rd toe and small amount of purulence discharge from the D IP medial surface; clean dressings applied. Objective Data Active Medications Acetaminophen (Acetaminophen 325 Mg Tablet) 650 mg PO Q6H PRN PRN Reason: Pain, Mild (Pain Scale 1-3) Amlodipine Besylate (Amlodipine Besylate 5 Mg Tablet) 5 mg PO DAILY [facility]; Protocol Last Admin: 01/17/23 08:16 Dose: 5 mg Documented By: CUATE Apixaban (Apixaban 5 Mg Tablet) 5 mg PO BID [facility] Last Admin: 01/17/23 08:16 Dose: 5 mg Documented By: CUATE Atorvastatin Calcium (Atorvastatin Calcium 40 Mg Tablet) 40 mg PO BEDTIME [facility] Last Admin: 01/16/23 20:50 Dose: 40 mg Documented By: MOOSE Dextrose (Dextrose 50 % 25 Gm/50 Ml Syringe) 25 gm IVPUSH Q15M PRN; Protocol PRN Reason: per Hypoglycemia Standing Ord. Glucose (Glucose Gel 15 Gm Gel..Gram.) 15 gm PO Q15M PRN; Protocol PRN Reason: per Hypoglycemia Standing Ord. Cefepime HCl 2 gm/ Sodium (Chloride) 50 mls @ 100 mls/hr IV Q12H [facility] Last Infusion: 01/17/23 06:23 Dose: 0 mls/hr Documented By: MOOSE Vancomycin HCl 1,500 mg/ (Sodium Chloride) 500 mls @ 333.333 mls/hr IV Q24H [facility] Last Infusion: 01/17/23 04:48 Dose: 0 mls/hr Documented By: MOOSE Insulin Glargine (Insulin Glargine,Hum.Rec.Anlog 100 Unit/Ml 10 Ml Vial) 21 unit SUBCUT BEDTIME [facility] Last Admin: 01/16/23 20:52 Dose: 21 unit Documented By: MOOSE Insulin Human Lispro (Insulin Lispro 100 Unit/Ml 3 Ml Vial) 0 unit SUBCUT QIDACHS [facility]; Protocol Last Admin: 01/17/23 08:15 Dose: 2 unit Documented By: CUTAE Melatonin (Melatonin 3 Mg Tablet) 6 mg PO BEDTIME PRN PRN Reason: Insomnia Mirtazapine (Mirtazapine 7.5 Mg Tablet) 7.5 mg PO BEDTIME [facility] Last Admin: 01/16/23 20:50 Dose: 7.5 mg Documented By: MOOSE Mycophenolate Sodium (Mycophenolate Sodium 180 Mg Tablet.Dr) 540 mg PO BID [facility] Last Admin: 01/17/23 08:16 Dose: 540 mg Documented By: CUATE Non-Formulary Medication (Calcifediol [Rayaldee]) 30 mcg PO BEDTIME [facility] Ondansetron HCl (Ondansetron Hcl 4 Mg/2 Ml Vial) 4 mg IVPUSH Q8H PRN PRN Reason: Nausea and Vomiting Pharmacy Consult (Consult Rx Vancomycin Dosing) 1 each MISCELLANE DAILY PRN PRN Reason: Consult order Pharmacy Consult (Consult Rx Perform Med Rec) 1 each MISCELLANE ONCE PRN PRN Reason: Consult order Sodium Chloride (0.9 % Sodium Chloride Flush 3 Ml Syringe) 3 ml IVFLUSH QSHIFT [facility] Last Admin: 01/17/23 08:19 Dose: 3 ml Documented By: CUATE Tacrolimus (Tacrolimus 1 Mg Capsule) 4 mg PO BID [facility] Last Admin: 01/17/23 08:16 Dose: 4 mg Documented By: UCATE Valsartan (Valsartan 40 Mg Tablet) 40 mg PO DAILY [facility]; Protocol Last Admin: 01/17/23 08:16 Dose: 40 mg Documented By: CUATE Labs 01/17/23 08:35 01/17/23 08:35 Labs: Laboratory Results - last 24 hr 01/16/23 01/16/23 01/16/23 12:33 16:14 20:00 MCV MCH MCHC RDW Plt Count MPV Absolute Nucleated RBC Nucleated RBC % (auto) ESR Anion Gap Estim Creat Clear Calc Estimated GFR POC Glucose 126 H 135 H 241 H Random Glucose Calcium 01/17/23 01/17/23 01/17/23 08:35 08:35 08:35 MCV 91.3 MCH 29.6 MCHC 32.5 RDW 13.5 Plt Count 162 MPV 11.1 Absolute Nucleated RBC 0.000 Nucleated RBC % (auto) 0.0 ESR 38 H Anion Gap 14 Estim Creat Clear Calc 53.8 Estimated GFR 40 POC Glucose Random Glucose 147 H Calcium 9.5 Microbiology Microbiology Results: Microbiology 01/16/23 02:54 Blood Culture - Preliminary Blood - Venous No growth after 24 hours. 01/15/23 23:09 Blood Culture - Preliminary Blood - Venous Prelim: GPC Gram Stain only Procedures Date of Service Date of Service: 01/17/23 Progress Note: A&P Assessment and plan (1) Osteomyelitis of third toe of left foot: Status: Acute Plan 52-year-old male patient presenting with osteomyelitis of the left 3rd toe distal phalanx. Patient has requested amputation which should expedite healing. After discussion of the procedure, risks, and alternatives, he consents to the amputation of the left 3rd toe distal phalanx. He will be added onto the operative schedule for Thursday. Time Spent With Patient Time: Total time managing care of this patient today ____ minutes. Quality Stroke Does the patient have a stroke diagnosis?: No VTE Prior VTE?: No VTE Risk Level:: Medical - moderate - high VTE Device Contraindication: Treatment Not Indicated VTE Drug Contraindication: N/A - Med Ordered
--- NOTE | 2023-01-17 14:49 | PM.PNNEP ---
Subjective Subjective Date of Service: 01/17/23 Interval history: awaiting amputaiton Tac level pending Physical Exam Vital Signs: Vital Signs: Last Vital Signs Temp 98.3 F 01/17/23 07:53 Pulse 80 01/17/23 07:53 Resp 15 01/17/23 07:53 BP 133/77 01/17/23 07:53 Pulse Ox 96 01/17/23 07:53 O2 Del Method Room Air 01/17/23 07:53 BMI result Body Mass Index 29.2 Const: Orientation/consciousness: patient oriented x3 Resp: Effort & Inspection: normal respiratory effort, no audible wheezes, no cough and no respiratory distress Cardio: Jugular venous distension: no JVD Neuro: General: patient oriented x3 Extrem: General: Yes no clubbing, cyanosis or edema Objective Data Labs 01/17/23 08:35 01/17/23 08:35 Labs: Laboratory Results - last 24 hr 01/16/23 01/16/23 01/17/23 16:14 20:00 08:35 WBC RBC Hgb Hct MCV MCH MCHC RDW Plt Count MPV Absolute Nucleated RBC Nucleated RBC % (auto) ESR Sodium 139 Potassium 4.1 Chloride 107 Carbon Dioxide 22 Anion Gap 14 BUN 19 H Creatinine 1.80 H Estim Creat Clear Calc 53.8 Estimated GFR 40 POC Glucose 135 H 241 H Random Glucose 147 H Calcium 9.5 01/17/23 01/17/23 08:35 08:35 WBC 8.5 RBC 4.96 Hgb 14.7 Hct 45.3 MCV 91.3 MCH 29.6 MCHC 32.5 RDW 13.5 Plt Count 162 MPV 11.1 Absolute Nucleated RBC 0.000 Nucleated RBC % (auto) 0.0 ESR 38 H Sodium Potassium Chloride Carbon Dioxide Anion Gap BUN Creatinine Estim Creat Clear Calc Estimated GFR POC Glucose Random Glucose Calcium Microbiology Microbiology Results: Microbiology 01/15/23 23:09 Blood - Venous Blood Culture - Preliminary Staphylococcus aureus 01/16/23 02:54 Blood - Venous Blood Culture - Preliminary No growth after 24 hours. Procedures Date of Service Date of Service: 01/17/23 Assessment & Plan Assessment and plan (1) Osteomyelitis of third toe of left foot: Status: Acute (2) Renal transplant recipient: Status: Acute Plan Mr. Raheem Castro is a 52-year-old gentleman with past medical history of ESRD s/p DDKT 10/22/2016 with bL Cr 1.6-1.7mg/dL who presents for left third toe infection with OM on MRI. He has just finished in November six weeks IV Ertapenem for infection around area of right fourth toe. He has had right fourth toe removal 10/2022. 1. ESRD s/p DDKT CKD of allograft with BL Cr 1.6-1.7mg/dL immunosuppressed with Tac 4mg BID and Myfortic 540 BID PLan: - c/w Tac 4mg dosed 7aM and 7PM - check Tac trough at 7AM before AM dose (Goal 6-8) - c/w Myfortic 540mg BID - Abx per ID. Monitor vanco trough. - IVF today especially if NPO Time Spent With Patient Time: Total time managing care of this patient today ____ minutes. Progress Note: Quality Stroke Does the patient have a stroke diagnosis?: No
[2023-01-17] MEDS: Lactated Ringers 1,000 ML 125 ML IVCONT (15:06)
[2023-01-17 15:53] VITALS: BP 117/72; PULSE 72; RESP 20; TEMP 36.1; O2SAT 98
--- NOTE | 2023-01-17 16:02 | MHC.CM.PN ---
PT REPORTS HE LIVES AT HOME WITH HIS AND DAUGHTER HE SAYS HE IS INDEPENDENT WITH CARE HE HAS A CANE HE USES PRN HE IS ACTIVE WITH [facility] HE HAS A HCP ON FILE PCP: [facility] IMM DELIVERED DCP TBD: HOME VS HOME WITH SERVICES VIA FAMILY TRANSPORT
[2023-01-17 19:50] VITALS: BP 133/65; PULSE 57; RESP 20; TEMP 36; O2SAT 97
[2023-01-17] MEDS: Atorvastatin Calcium 40 MG TABLET PO (21:45)
[2023-01-17] MEDS: Mirtazapine 7.5 MG TABLET PO (21:46)
[2023-01-17] MEDS: Insulin Glargine,Hum.rec.anlog 100 UNIT/ML 10 ML VIAL 21 UNIT SUBCUT (21:46)
[2023-01-18 01:18] LABS: Vancomycin Random 14.8 mcg/mL (15-20)
[2023-01-18 01:56] VITALS: BP 110/63; PULSE 68; RESP 18; TEMP 36.8; O2SAT 95
[2023-01-18] MEDS: vancomycin HCL 1,500 MG in 0.9 % Sodium Chloride 500 ML 333.33 MG IV (03:16)
[2023-01-18 05:54] LABS: Creatinine Clr Calc Pharmacy 57.9; Estimated Glomerular Filt Rate 44
[2023-01-18] MEDS: cefEPime HCl 2 GM in 0.9 % Sodium Chloride 50 ML IV (05:59)
--- NOTE | 2023-01-18 06:16 | HE.PHANOTE ---
re ashish continue current dose. SCR tending down. Suspected auc 550, trough 16.4. Next level due 01/20 @0100 Siddharth
[2023-01-18 07:48] VITALS: BP 119/70; PULSE 76; RESP 18; TEMP 36.2; O2SAT 93
[2023-01-18] MEDS: Mycophenolate Sodium 180 MG TABLET.DR 540 MG PO ×2 (07:57→20:21)
[2023-01-18] MEDS: Valsartan 40 MG TABLET PO (07:57)
[2023-01-18] MEDS: amLODIPine Besylate 5 MG TABLET PO (07:57)
[2023-01-18] MEDS: Tacrolimus 1 MG CAPSULE 4 MG PO ×2 (07:58→20:21)
[2023-01-18] MEDS: 0.9 % Sodium Chloride Flush 3 ML SYRINGE IVFLUSH (08:00)
--- NOTE | 2023-01-18 11:02 | HO.PM.IMPN ---
Subjective Subjective Date of Service: 01/18/23 Interval History: BCx from 01/15 positive for MSSA, BCx from 01/16 also growing GPCs in clusters No fever Awaiting amputation of toe tomorrow Pain controlled Review of Systems Review of Systems: Yes all other systems are reviewed and are negative Physical Exam Vital Signs: Vital Signs: Last Vital Signs Temp 97.1 F 01/18/23 07:48 Pulse 76 01/18/23 07:48 Resp 18 01/18/23 07:48 BP 119/70 01/18/23 07:48 Pulse Ox 93 01/18/23 07:48 O2 Del Method Room Air 01/18/23 07:48 BMI result Body Mass Index 29.2 Gen: in no acute distress HEENT: sclera anicteric, moist mucus membranes Neck: supple Lungs: clear to auscultation bilaterally Heart: regular rate and rhythm, no murmurs Abd: soft, non-tender, non-distended Ext: no edema.? R foot s/p 4th toe amputation.? L foot with ulcer on tip of darkened and swollen 3rd toe with some clear drainage Skin: warm/well-perfused Neuro: alert and oriented x3, no focal findings Psych: appropriate affect Objective Data Active Medications Acetaminophen (Acetaminophen 325 Mg Tablet) 650 mg PO Q6H PRN PRN Reason: Pain, Mild (Pain Scale 1-3) Amlodipine Besylate (Amlodipine Besylate 5 Mg Tablet) 5 mg PO DAILY [facility]; Protocol Last Admin: 01/18/23 07:57 Dose: 5 mg Documented By: CUATE Apixaban (Apixaban 5 Mg Tablet) 5 mg PO BID [facility] Last Admin: 01/17/23 22:30 Dose: Not Given Documented By: MOOSE Non-Admin Reason: Physician Held Med Atorvastatin Calcium (Atorvastatin Calcium 40 Mg Tablet) 40 mg PO BEDTIME [facility] Last Admin: 01/17/23 21:45 Dose: 40 mg Documented By: MOOSE Dextrose (Dextrose 50 % 25 Gm/50 Ml Syringe) 25 gm IVPUSH Q15M PRN; Protocol PRN Reason: per Hypoglycemia Standing Ord. Glucose (Glucose Gel 15 Gm Gel..Gram.) 15 gm PO Q15M PRN; Protocol PRN Reason: per Hypoglycemia Standing Ord. Cefepime HCl 2 gm/ Sodium (Chloride) 50 mls @ 100 mls/hr IV Q12H [facility] Last Infusion: 01/18/23 06:36 Dose: 0 mls/hr Documented By: MOOSE Vancomycin HCl 1,500 mg/ (Sodium Chloride) 500 mls @ 333.333 mls/hr IV Q24H [facility] Last Infusion: 01/18/23 04:57 Dose: 0 mls/hr Documented By: MOOSE Insulin Glargine (Insulin Glargine,Hum.Rec.Anlog 100 Unit/Ml 10 Ml Vial) 21 unit SUBCUT BEDTIME [facility] Last Admin: 01/17/23 21:46 Dose: 21 unit Documented By: MOOSE Insulin Human Lispro (Insulin Lispro 100 Unit/Ml 3 Ml Vial) 0 unit SUBCUT QIDACHS [facility]; Protocol Last Admin: 01/18/23 07:53 Dose: Not Given Documented By: CUATE Non-Admin Reason: No Insulin Coverage Melatonin (Melatonin 3 Mg Tablet) 6 mg PO BEDTIME PRN PRN Reason: Insomnia Mirtazapine (Mirtazapine 7.5 Mg Tablet) 7.5 mg PO BEDTIME [facility] Last Admin: 01/17/23 21:46 Dose: 7.5 mg Documented By: MOOSE Mycophenolate Sodium (Mycophenolate Sodium 180 Mg Tablet.) 540 mg PO BID [facility] Last Admin: 01/18/23 07:57 Dose: 540 mg Documented By: CUATE Non-Formulary Medication (Calcifediol [Rayaldee]) 30 mcg PO BEDTIME [facility] Ondansetron HCl (Ondansetron Hcl 4 Mg/2 Ml Vial) 4 mg IVPUSH Q8H PRN PRN Reason: Nausea and Vomiting Pharmacy Consult (Consult Rx Vancomycin Dosing) 1 each MISCELLANE DAILY PRN PRN Reason: Consult order Pharmacy Consult (Consult Rx Perform Med Rec) 1 each MISCELLANE ONCE PRN PRN Reason: Consult order Sodium Chloride (0.9 % Sodium Chloride Flush 3 Ml Syringe) 3 ml IVFLUSH QSHIFT [facility] Last Admin: 01/18/23 08:00 Dose: 3 ml Documented By: CUATE Tacrolimus (Tacrolimus 1 Mg Capsule) 4 mg PO BID [facility] Last Admin: 01/18/23 07:58 Dose: 4 mg Documented By: CUATE Valsartan (Valsartan 40 Mg Tablet) 40 mg PO DAILY [facility]; Protocol Last Admin: 01/18/23 07:57 Dose: 40 mg Documented By: CUATE Labs 01/17/23 08:35 01/18/23 05:10 Labs: Laboratory Results - last 24 hr 01/18/23 01/18/23 00:47 05:10 Estim Creat Clear Calc 57.9 Estimated GFR 44 Random Vancomycin 14.8 L Microbiology Microbiology Results: Microbiology 01/16/23 02:54 Blood Culture - Preliminary Blood - Venous Prelim: GPC Gram Stain only 01/15/23 23:09 Blood Culture - Final Blood - Venous Staphylococcus aureus Assessment and Plan (1) Osteomyelitis: Status: Inactive (2) Wound of right foot: Status: Inactive Plan d3 52yo M with PAD s/p R 4th toe amputation, CKD4 s/p renal transplant, DM1, hx stage 3 testicular CA, HTN, HLD admitted for infection of L 3rd toe and found to have osteomyelitis nonhealing DM ulcer of L 3rd toe with osteomyelitis MSSA bacteremia - vanco + cefepime d3 - draw surveillance BCx 01/[address]ICC 01/21 - check TTE then discuss ABX duration with ID - Gen Surg consulted, plan amputation of toe on 01/19/23 CKD4 renal transplant - continue MMF + tacrolimus, level pending - SCr at baseline - continue calcifediol HTN - continue amlodipine + valsartan paroxysmal AF - hold apixaban until postop HLD - continue statin mood disorder - continue mirtazapine DM1 - A1c 7, 11/26/22 - basal-bolus insulin VTE ppx - apixaban [held for surgery], SCDs dispo - anticipate eventual home with VNA In my clinical judgment, the patient requires continued inpatient hospitalization for the following reasons: IV ABX, bacteremia, amputation Time Spent With Patient Time: Total time managing care of this patient today ___45 minutes. Quality Stroke Does the patient have a stroke diagnosis?: No VTE Prior VTE?: No VTE Risk Level:: Medical - moderate - high VTE Device Contraindication: Treatment Not Indicated VTE Drug Contraindication: N/A - Med Ordered
[2023-01-18] MEDS: Insulin Lispro 100 UNIT/ML 3 ML VIAL SUBCUT ×3 (11:46→20:28)
--- NOTE | 2023-01-18 12:06 | PM.PNNEP ---
Subjective Subjective Date of Service: 01/18/23 Interval history: BCx from 01/15 positive for MSSA, BCx from 01/16 also growing GPCs in clusters No fever Awaiting amputation of toe tomorrow Pain controlled Physical Exam Vital Signs: Vital Signs: Last Vital Signs Temp 97.1 F 01/18/23 07:48 Pulse 76 01/18/23 07:48 Resp 18 01/18/23 07:48 BP 119/70 01/18/23 07:48 Pulse Ox 93 01/18/23 07:48 O2 Del Method Room Air 01/18/23 07:48 BMI result Body Mass Index 29.2 Const: Orientation/consciousness: patient oriented x3 Resp: Effort & Inspection: normal respiratory effort, no audible wheezes, no cough and no respiratory distress Cardio: Jugular venous distension: no JVD Neuro: General: patient oriented x3 Extrem: General: Yes no clubbing, cyanosis or edema Objective Data Labs 01/17/23 08:35 01/18/23 05:10 Labs: Laboratory Results - last 24 hr 01/18/23 01/18/23 00:47 05:10 Creatinine 1.67 H Estim Creat Clear Calc 57.9 Estimated GFR 44 Random Vancomycin 14.8 L Microbiology Microbiology Results: Microbiology 01/16/23 02:54 Blood - Venous Blood Culture - Preliminary Prelim: GPC Gram Stain only 01/15/23 23:09 Blood - Venous Blood Culture - Final Staphylococcus aureus Procedures Date of Service Date of Service: 01/18/23 Assessment & Plan Assessment and plan (1) Osteomyelitis of third toe of left foot: Status: Acute (2) Renal transplant recipient: Status: Acute Plan Mr. Raheem Castro is a 52-year-old gentleman with past medical history of ESRD s/p DDKT 10/22/2016 with bL Cr 1.6-1.7mg/dL who presents for left third toe infection with OM on MRI. He has just finished in November six weeks IV Ertapenem for infection around area of right fourth toe. He has had right fourth toe removal 10/2022. 1. ESRD s/p DDKT CKD of allograft with BL Cr 1.6-1.7mg/dL immunosuppressed with Tac 4mg BID and Myfortic 540 BID Cr better to 1.6mg/dL with IVF support PLan: - c/w Tac 4mg dosed 7aM and 7PM - check Tac trough at 7AM before AM dose (Goal 6-8) - c/w Myfortic 540mg BID - Abx per ID. Monitor vanco trough. - IVF today especially if NPO Time Spent With Patient Time: Total time managing care of this patient today ____ minutes. Progress Note: Quality Stroke Does the patient have a stroke diagnosis?: No
[2023-01-18 12:44] LABS: Tacrolimus Prograf 8.7 NG/ML ((5-20))
[2023-01-18] MEDS: ceFAZolin Sodium/Dextrose,Iso 2 GM/50 ML PIGGYBACK IV ×2 (13:30→20:19)
[2023-01-18 13:52] LABS: Tacrolimus Prograf 8.3 NG/ML ((5-20))
[2023-01-18] MEDS: Lactated Ringers 1,000 ML 125 ML IVCONT ×2 (14:04→21:29)
[2023-01-18 16:00] VITALS: BP 117/67; PULSE 67; RESP 17; TEMP 36.1; O2SAT 96
[2023-01-18 20:00] VITALS: BP 145/72; PULSE 79; RESP 18; TEMP 36.3; O2SAT 96
[2023-01-18] MEDS: Atorvastatin Calcium 40 MG TABLET PO (20:21)
[2023-01-18] MEDS: Mirtazapine 7.5 MG TABLET PO (20:21)
[2023-01-19] VITALS (12 sets, daily range): BP systolic 85–144; BP diastolic 35–79; PULSE 65–88; RESP 16–20; TEMP 36–37.2; O2SAT 93–98
[2023-01-19] MEDS: ceFAZolin Sodium/Dextrose,Iso 2 GM/50 ML PIGGYBACK IV ×3 (03:22→20:01)
[2023-01-19] MEDS: Lactated Ringers 1,000 ML 125 ML IVCONT (05:37)
[2023-01-19 06:13] LABS: Anion Gap 15 (12-20); Blood Urea Nitrogen 12 mg/dL (9-16); Calcium 8.8 mg/dL (8.4-10.2); Carbon Dioxide 20 mmol/L (22-29); Chloride 107 mmol/L (96-108); Creatinine Clr Calc Pharmacy 71.7; Estimated Glomerular Filt Rate 56; Glucose Random 108 mg/dL (60-115); Sodium 138 mmol/L (135-145)
--- NOTE | 2023-01-19 07:00 | CA_ITS ---
Transthoracic Echocardiogram Patient (Last, First, Middle): Raheem Castro, Gender: Male Date of : 1970 Age: 52 Procedure Date: 01/19/2023 Procedure Type: Transthoracic Echocardiogram Location: S3E Height: 175.26 cm Weight: 89.81 kg BSA: 2.06 m2 Heart Rate: bpm BP: 129 / 75 mmHg Dental Receptionist: ZAIDA Referring MD: Noel Castro MD Symptoms: MSSA bacteraemia, r/o IE Study Quality: Adequate with contrast Conclusions: - Normal left ventricular size and systolic function. There is mildly increased left ventricular wall thickness. The visually estimated ejection fraction is between 60-65%. - E/E prime ratio is between 8 and 15 consistent with indeterminate filling pressures. - Normal right ventricular cavity size and systolic function. - There is mild calcification of the aortic valve. - There is mild dilatation of the ascending aorta measuring 3.60 cm. Findings Procedure Information Contrast agent, definity, is being given per protocol without apparent complications. Left Ventricle Normal left ventricular size and systolic function. There is mildly increased left ventricular wall thickness. The visually estimated ejection fraction is between 60-65%. There is no evidence of regional wall motion abnormalities. Abnormal diastolic function is noted. Spectral Doppler is indicative of an impaired relaxation filling pattern. E/E prime ratio is between 8 and 15 consistent with indeterminate filling pressures. Right Ventricle Normal right ventricular cavity size and systolic function. Atria The left atrium is normal in size. The right atrium is normal in size. Aortic Valve There is a normal trileaflet aortic valve. There is mild calcification of the aortic valve. There is no aortic valve stenosis. There is mild aortic valve regurgitation. Mitral Valve Normal mitral valve structure and function. There is trace mitral valve regurgitation. There is no mitral valve stenosis. Pulmonic Valve The pulmonic valve is likely normal. Tricuspid Valve Normal tricuspid valve structure. Normal right atrial pressure. There is no evidence of pulmonary hypertension. Great Vessels There is mild dilatation of the ascending aorta measuring 3.60 cm. The visualized portions of the pulmonary artery and branches are normal. Venous The inferior vena cava is normal in size and collapses greater than 50% with inspiration. Pericardium/Pleural There is no evidence of pericardial effusion. Prior Study Comparison No prior study available for comparison. Measurements 2D Linear Measurements IVSd: 1.29 0.6-0.9/0.6-1.0 cm LVIDd: 4.38 3.9-5.3/4.2-5.9 cm LVIDd Index: 2.13 2.4-3.2/2.2-3.1 cm/m2 LVIDs: 2.87 2.0-3.6 cm LVPWd: 1.29 0.7-1.1 cm LA Diam: 3.70 2.7-3.8/3.0-4.0 cm LAIDs Index: 1.80 1.5-2.3 cm/m2 LV Mass: 263.25 67-162/88-224 g LV Mass Index: 127.79 43-95/49-115 g/m2 LVOT Diam: 2.20 3.0+(-)1.3 cm 2D Systolic Function EF 4C: 66.90 >55% EF 2C: 56.80 >55% EF BiP: 61.80 >55% Mitral Valve MV Pk E: 0.99 MV PK A: 1.12 MV Decel Time: 225.00 E/A: 0.90 E'Lateral: 6.85 E'Medial: 7.18 E/E' Med: 13.80 E/E' Lat: 14.50 PHT: 66.00 MVA PHT: 3.33 Decel Dod[place]idge: 4.42 Aortic Valve AoV Pk Noah: 1.27 AoV Mn Noah: 0.93 AoV VTI: 0.27 AoV Pk Grad: 6.00 Aov Mn Grad: 4.00 MADELINE Cont.VTI: 3.55 LVOT LVOT Pk Noah: 0.88 LVOT Mn Noah: 0.65 LVOT VTI: 0.25 LVOT Pk Grad: 3.00 LVOT Mn Grad: 2.00 LVOT Diam: 2.20 LVOT Area: 3.80 Diastolic Function MV Pk E: 0.99 MV Pk A: 1.12 E/A: 0.90 E'Medial: 7.18 E/E' Med: 13.80 E' Laterial: 6.85 E/E' Lat: 14.50 Right Ventricle TAPSE (mm): 23.10 TVS' Noah: 13.50 Tricuspid Valve TR Pk Noah: 2.17 TR Pk Grad: 19.00 RA Press: 3.00 RVSP: 22.00 Great Vessels Aorta Sinus of Valsalva: 3.60 2.0-3.5 cm Ao Asc: 3.60 2.1-3.4 cm Pulmonary Valve PV Pk Noah: 0.71 Peak PV Grad: 2.00 Updated in Other Vendor System with Status of Final Phi Valladares MD electronically signed on 01/19/2023 9:08:56 PM with status of Final
--- NOTE | 2023-01-19 08:20 | PC.NURSE ---
MD Matthew Russell use of personal glucometer. Pt refuses finger sticks.
--- NOTE | 2023-01-19 09:20 | HO.ANESPROP2 ---
HPI - Anesthesia Eval Consult details Narrative: Toe amp PMFSH Active Problems Active Problems: All Active Problems (Updated 10/28/22 @ 09:14 by EFREN Olsen) Osteomyelitis of third toe of left foot (Acute) Cellulitis (Acute) Low HDL (under 40) (Acute) Screening for prostate cancer (Acute) Screening for colon cancer (Acute) Adult general medical exam (Acute) Groin pain (Acute) Laboratory exam ordered as part of routine general medical examination (Acute) Osteomyelitis of great toe of left foot (Acute) Renal transplant recipient (Acute) Cellulitis of great toe, left (Acute) Chronic right shoulder pain (Acute) Multinodular goiter (Acute) Urinary retention with incomplete bladder emptying (Acute) Testicular cancer (Acute) Bleeding internal hemorrhoids (Acute) Seminoma (Acute) Paresthesia and pain of extremity (Acute) Shingles rash (Acute) Tenosynovitis of right wrist (Acute) Type 2 diabetes mellitus with hyperglycemia, with long-term current use of insulin (Acute) Type 2 diabetes mellitus with chronic kidney disease (Acute) HTN (hypertension) (Acute) Hyperlipidemia (Acute) Vaccination refused by patient (Acute) Refused pneumococcal vaccination (Acute) Anemia in stage 4 chronic kidney disease (Acute) Annual visit for general adult medical examination with abnormal findings (Acute) Secondary hyperparathyroidism of renal origin (Acute) Mixed dyslipidemia (Acute) Peripheral vascular disease (Acute) Diabetes mellitus with diabetic nephropathy, with long-term current use of insulin (Acute) Osteomyelitis of left foot (Acute) Diabetes mellitus with foot ulcer (Acute) End-stage renal disease on hemodialysis (Acute) Injury of tendon of right rotator cuff (Acute) Kidney transplant recipient (Chronic) Past Medical History Medical History (Updated 01/16/23 @ 16:07 by Rhiannon Soto MD) 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 chronic kidney disease Bleeding internal hemorrhoids Carpal tunnel syndrome on left Chronic right shoulder pain Diabetes mellitus with diabetic nephropathy, with long-term current use of insulin Diabetes mellitus with foot ulcer Diabetic ulcer of right foot End-stage renal disease on hemodialysis Hyperlipidemia Mixed dyslipidemia Multinodular goiter Osteomyelitis Osteomyelitis of left foot Osteomyelitis of third toe of left foot PAD (peripheral artery disease) Paresthesia and pain of extremity Peripheral vascular disease Refused pneumococcal vaccination S/P angiogram of extremity (10/08/22) Secondary hyperparathyroidism of renal origin Seminoma Testicular cancer Type 2 diabetes mellitus with chronic kidney disease Type 2 diabetes mellitus with hyperglycemia, with long-term current use of insulin Vaccination refused by patient Wound of right foot Family History Family History Father Unknown family medical history Mother Diabetes mellitus HTN (hypertension) CVD (cardiovascular disease) History of CVA (cerebrovascular accident) Stroke Sister Diabetes mellitus Daughter No problems noted. Sister No problems noted. Sister No problems noted. Family history of problems with anesthesia: No Surgical History Surgical History Amputated toe of right foot (10/13/22) History of kidney transplant History of Problems with Anesthesia: No Social History Social History Household Members: Spouse and Children Housing: House Do you presently have visiting nurse or other home services: No Alcohol intake: never Patient Tobacco Use Status: Never used Tobacco e-Cigarette/Vaping Use: Never Used Advance Directives Date on File: 01/16/23 service: No Current occupational status: disabled Current occupation: disability - kidney transplant. Left side dominant Meds Allergies Allergy/AdvReac Type Severity Reaction Status Date / Time No Known Allergies Allergy Verified 01/15/23 22:40 Active Medications: Current Medications Acetaminophen (Acetaminophen 325 Mg Tablet) 650 mg PO Q6H PRN PRN Reason: Pain, Mild (Pain Scale 1-3) Amlodipine Besylate (Amlodipine Besylate 5 Mg Tablet) 5 mg PO DAILY [facility]; Protocol Last Admin: 01/18/23 07:57 Dose: 5 mg Apixaban (Apixaban 5 Mg Tablet) 5 mg PO BID [facility] Last Admin: 01/17/23 22:30 Dose: Not Given Atorvastatin Calcium (Atorvastatin Calcium 40 Mg Tablet) 40 mg PO BEDTIME [facility] Last Admin: 01/18/23 20:21 Dose: 40 mg Dextrose (Dextrose 50 % 25 Gm/50 Ml Syringe) 25 gm IVPUSH Q15M PRN; Protocol PRN Reason: per Hypoglycemia Standing Ord. Glucose (Glucose Gel 15 Gm Gel..Gram.) 15 gm PO Q15M PRN; Protocol PRN Reason: per Hypoglycemia Standing Ord. Cefazolin Sodium/Dextrose (Ancef) 2 gm in 50 mls @ 100 mls/hr IV Q8H [facility] Last Infusion: 01/19/23 03:57 Dose: Infused Lactated Ringer's (Lr) 1,000 mls @ 125 mls/hr IVCONT .Q8H [facility] Last Admin: 01/19/23 05:37 Dose: 125 mls/hr Insulin Glargine (Insulin Glargine,Hum.Rec.Anlog 100 Unit/Ml 10 Ml Vial) 21 unit SUBCUT BEDTIME [facility] Last Admin: 01/18/23 20:30 Dose: Not Given Insulin Human Lispro (Insulin Lispro 100 Unit/Ml 3 Ml Vial) 0 unit SUBCUT QIDACHS [facility]; Protocol Last Admin: 01/19/23 08:28 Dose: Not Given Melatonin (Melatonin 3 Mg Tablet) 6 mg PO BEDTIME PRN PRN Reason: Insomnia Mirtazapine (Mirtazapine 7.5 Mg Tablet) 7.5 mg PO BEDTIME [facility] Last Admin: 01/18/23 20:21 Dose: 7.5 mg Mycophenolate Sodium (Mycophenolate Sodium 180 Mg Tablet.) 540 mg PO BID [facility] Last Admin: 01/18/23 20:21 Dose: 540 mg Non-Formulary Medication (Calcifediol [Rayaldee]) 30 mcg PO BEDTIME [facility] Ondansetron HCl (Ondansetron Hcl 4 Mg/2 Ml Vial) 4 mg IVPUSH Q8H PRN PRN Reason: Nausea and Vomiting Pharmacy Consult (Consult Rx Perform Med Rec) 1 each MISCELLANE ONCE PRN PRN Reason: Consult order Sodium Chloride (0.9 % Sodium Chloride Flush 3 Ml Syringe) 3 ml IVFLUSH QSHIFT [facility] Last Admin: 01/19/23 08:28 Dose: Not Given Tacrolimus (Tacrolimus 1 Mg Capsule) 4 mg PO BID [facility] Last Admin: 01/18/23 20:21 Dose: 4 mg Valsartan (Valsartan 40 Mg Tablet) 40 mg PO DAILY [facility]; Protocol Last Admin: 01/18/23 07:57 Dose: 40 mg Home Medications Medication Instructions Recorded Confirmed Last Taken Type calcifediol 30 mcg capsule,24 30 mcg PO BEDTIME 03/14/20 01/16/23 10/05/22 History hr,extended release (Rayaldee) mycophenolate sodium 180 mg 540 mg PO BID 05/18/20 01/16/23 10/06/22 History tablet,delayed release pen needle, diabetic 31 gauge x #50 ea 06/05/20 11/26/22 Unknown History 08/28 apixaban 5 mg tablet 5 mg PO BID 10/12/20 01/16/23 10/06/22 History lancets 28 gauge (FreeStyle #100 ea 06/26/21 11/26/22 Unknown History Lancets) insulin aspart U-100 100 unit/mL 8 unit subcut TIDAC 10/26/21 01/16/23 10/06/22 History (3 mL) subcutaneous pen (Novolog FlexPen U-100 Insulin aspart) insulin glargine 100 unit/mL (3 21 unit subcut BEDTIME 10/26/21 01/16/23 10/05/22 History mL) subcutaneous pen (Lantus Solostar U-100 Insulin) mirtazapine 7.5 mg tablet 7.5 mg PO BEDTIME 09/26/22 01/16/23 10/05/22 History rosuvastatin 10 mg tablet 10 mg PO BEDTIME 10/06/22 01/16/23 10/05/22 History tacrolimus 1 mg capsule, 4 mg PO BID 10/06/22 01/16/23 10/06/22 History immediate-release amlodipine 5 mg tablet 5 mg PO DAILY 10/28/22 01/16/23 Unknown History valsartan 40 mg tablet 40 mg PO DAILY 10/28/22 01/16/23 Unknown History Exam Exam Date and Time: January 19, 2023 0920 Height,Weight and Vital Signs: Height 5 ft 9 in Weight 89.811 kg Last Vital Signs Temp 97.4 F 01/19/23 08:50 Pulse 81 01/19/23 08:50 Resp 16 01/19/23 08:50 BP 119/71 01/19/23 08:50 Pulse Ox 98 01/19/23 08:50 O2 Del Method Room Air 01/19/23 08:50 Pertinent Lab Results Pertinent Lab Results: Laboratory Tests 01/15/23 01/15/23 01/15/23 23:08 23:09 23:10 WBC 9.3 RBC 4.90 Hgb 14.5 Hct 44.4 MCV 90.6 MCH 29.6 MCHC 32.7 RDW 13.3 Plt Count 168 MPV 11.4 Immature Gran % (Auto) 1.0 H Neut % (Auto) 65.6 Lymph % (Auto) 17.9 L Elliott % (Auto) 13.9 H Eos % (Auto) 1.4 Baso % (Auto) 0.2 Lymph # (Auto) 1.7 Elliott # (Auto) 1.3 H Eos # (Auto) 0.1 Baso # (Auto) 0.0 Abs Immat Gran (auto) 0.09 H Absolute Neuts (auto) 6.1 Absolute Nucleated RBC 0.000 Nucleated RBC % (auto) 0.0 ESR Sodium 138 Potassium 4.0 Chloride 103 Carbon Dioxide 22 Anion Gap 17 BUN 20 H Creatinine 1.72 H Estim Creat Clear Calc 56.3 Estimated GFR 42 POC Glucose Random Glucose 178 H Lactic Acid 1.1 Calcium 9.7 D Total Bilirubin 0.4 AST 10 ALT 8 Alkaline Phosphatase 91 C-Reactive Protein Total Protein 7.8 Albumin 4.3 Random Vancomycin Tacrolimus 01/16/23 01/16/23 01/16/23 02:54 02:54 07:15 WBC 10.9 H RBC 5.06 Hgb 14.8 Hct 45.2 MCV 89.3 MCH 29.2 MCHC 32.7 RDW 13.3 Plt Count 173 MPV 11.6 Immature Gran % (Auto) 0.9 H Neut % (Auto) 72.2 Lymph % (Auto) 13.4 L Elliott % (Auto) 12.5 H Eos % (Auto) 0.7 Baso % (Auto) 0.3 Lymph # (Auto) 1.5 Elliott # (Auto) 1.4 H Eos # (Auto) 0.1 Baso # (Auto) 0.0 Abs Immat Gran (auto) 0.10 H Absolute Neuts (auto) 7.9 Absolute Nucleated RBC 0.000 Nucleated RBC % (auto) 0.0 ESR Sodium 138 Potassium 4.0 Chloride 104 Carbon Dioxide 22 Anion Gap 16 BUN 20 H Creatinine 1.74 H Estim Creat Clear Calc 55.6 Estimated GFR 42 POC Glucose 181 H Random Glucose 156 H Lactic Acid Calcium 9.8 Total Bilirubin AST ALT Alkaline Phosphatase C-Reactive Protein 5.17 H Total Protein Albumin Random Vancomycin Tacrolimus 01/16/23 01/16/23 01/16/23 12:33 16:14 20:00 WBC RBC Hgb Hct MCV MCH MCHC RDW Plt Count MPV Immature Gran % (Auto) Neut % (Auto) Lymph % (Auto) Elliott % (Auto) Eos % (Auto) Baso % (Auto) Lymph # (Auto) Elliott # (Auto) Eos # (Auto) Baso # (Auto) Abs Immat Gran (auto) Absolute Neuts (auto) Absolute Nucleated RBC Nucleated RBC % (auto) ESR Sodium Potassium Chloride Carbon Dioxide Anion Gap BUN Creatinine Estim Creat Clear Calc Estimated GFR POC Glucose 126 H 135 H 241 H Random Glucose Lactic Acid Calcium Total Bilirubin AST ALT Alkaline Phosphatase C-Reactive Protein Total Protein Albumin Random Vancomycin Tacrolimus 01/17/23 01/17/23 01/17/23 08:35 08:35 08:35 WBC 8.5 RBC 4.96 Hgb 14.7 Hct 45.3 MCV 91.3 MCH 29.6 MCHC 32.5 RDW 13.5 Plt Count 162 MPV 11.1 Immature Gran % (Auto) Neut % (Auto) Lymph % (Auto) Elliott % (Auto) Eos % (Auto) Baso % (Auto) Lymph # (Auto) Elliott # (Auto) Eos # (Auto) Baso # (Auto) Abs Immat Gran (auto) Absolute Neuts (auto) Absolute Nucleated RBC 0.000 Nucleated RBC % (auto) 0.0 ESR 38 H Sodium 139 Potassium 4.1 Chloride 107 Carbon Dioxide 22 Anion Gap 14 BUN 19 H Creatinine 1.80 H Estim Creat Clear Calc 53.8 Estimated GFR 40 POC Glucose Random Glucose 147 H Lactic Acid Calcium 9.5 Total Bilirubin AST ALT Alkaline Phosphatase C-Reactive Protein Total Protein Albumin Random Vancomycin Tacrolimus 01/17/23 01/18/23 01/18/23 08:35 00:47 05:10 WBC RBC Hgb Hct MCV MCH MCHC RDW Plt Count MPV Immature Gran % (Auto) Neut % (Auto) Lymph % (Auto) Elliott % (Auto) Eos % (Auto) Baso % (Auto) Lymph # (Auto) Elliott # (Auto) Eos # (Auto) Baso # (Auto) Abs Immat Gran (auto) Absolute Neuts (auto) Absolute Nucleated RBC Nucleated RBC % (auto) ESR Sodium Potassium Chloride Carbon Dioxide Anion Gap BUN Creatinine 1.67 H Estim Creat Clear Calc 57.9 Estimated GFR 44 POC Glucose Random Glucose Lactic Acid Calcium Total Bilirubin AST ALT Alkaline Phosphatase C-Reactive Protein Total Protein Albumin Random Vancomycin 14.8 L Tacrolimus 8.7 01/18/23 01/19/23 05:10 05:34 WBC RBC Hgb Hct MCV MCH MCHC RDW Plt Count MPV Immature Gran % (Auto) Neut % (Auto) Lymph % (Auto) Elliott % (Auto) Eos % (Auto) Baso % (Auto) Lymph # (Auto) Elliott # (Auto) Eos # (Auto) Baso # (Auto) Abs Immat Gran (auto) Absolute Neuts (auto) Absolute Nucleated RBC Nucleated RBC % (auto) ESR Sodium 138 Potassium 4.0 Chloride 107 Carbon Dioxide 20 L Anion Gap 15 BUN 12 Creatinine 1.35 Estim Creat Clear Calc 71.7 Estimated GFR 56 POC Glucose Random Glucose 108 Lactic Acid Calcium 8.8 D Total Bilirubin AST ALT Alkaline Phosphatase C-Reactive Protein Total Protein Albumin Random Vancomycin Tacrolimus 8.3 Airway Mallampati Class: II TM Dist: >3cm Neck ROM: Limited Heart: rrr Lungs: cta Assessment and Plan Assessment Anesthesia Assessment: Anesthesia Plan Discussed and Chart Reviewed Final Anesthetic Review Family History of Problems with Anesthesia: No History of Problems with Anesthesia: No NPO: Yes ASA Class: IV Final Preanesthetic Review: No Changes in Pt Med Stat, Meds/Allgs Chart Reviewed, Consent Obtained/Reviewed and Anes Risks/Benef Reviewed Patient Risk: High Procedure Risk: Low Anesthetic Plan Anesthetic Plan: MAC: and Agree w/ Assess. and Plan Disposition: Standard PACU
--- NOTE | 2023-01-19 10:30 | P.OP_ITS ---
Operative Note Operative Note Date of Service: 01/19/23 Narrative: Preoperative diagnosis:Osteomyelitis, left third toe Postoperative diagnosis: same Procedure: Amputation left 3rd Toe Surgeon: Joseph Verde MD [employer] Operator: Vonda Neely PA-C Anesthesia: MAC plus local Indications for procedure: 52-year-old male patient with history of diabetes and prior history of toe amputations now presenting with osteomyelitis involving the left 3rd toe tip. He presents today for amputation of the tip of theleft 3rd toe Operative findings: evidence of osteomyelitis involving the left 3rd toe Specimen: left 3rd toe Estimated blood loss: less than 2 mL Complications: none Procedure details: patient was brought to the OR placed in a supine position. After administering light sedation the patient's left foot was prepped with Betadine and draped in a sterile fashion. A surgical time-out was called and consent confirmed. Patient has been receiving around the clock antibiotics. Venodyne boots were placed on the right foot. incision was then made in a fishmouth type fashion around the 3rd toe preserving the proximal phalanx but removing the distal and middle phalanx. Incision was carried out through subcutaneous tissue down to bone. Dissection was continued up to the mid 2nd phalanx. A bone cutter was then used to divide the bone at this level. Hemostasis was assured using electrocautery. Wounds were then irrigated with saline solution. Skin edges were then reapproximated using interrupted 3-0 Polysorb sutures. Skin was then closed using interrupted 3-0 nylon sutures. Sterile dressings including fluff gauze and Kerlix were then applied. The patient tolerated the procedure well. Sponge, instrument, and needle counts reported as correct. The patient was transferred to PACU in stable condition.
[2023-01-19] MEDS: Mycophenolate Sodium 180 MG TABLET.DR 540 MG PO ×2 (11:25→21:11)
[2023-01-19] MEDS: Valsartan 40 MG TABLET PO (11:25)
[2023-01-19] MEDS: amLODIPine Besylate 5 MG TABLET PO (11:25)
[2023-01-19] MEDS: Tacrolimus 1 MG CAPSULE 4 MG PO ×2 (11:26→21:21)
[2023-01-19] MEDS: Insulin Lispro 100 UNIT/ML 3 ML VIAL SUBCUT ×3 (12:06→21:09)
--- NOTE | 2023-01-19 13:44 | HO.PM.IMPN ---
Subjective Subjective Date of Service: 01/19/23 Interval History: patient underwent left 3rd toe amputation this morning return from OR resting comfortably offers no acute complaints of nausea, no vomiting, no abdominal pain, no fevers, no chills. Review of Systems All other system reviewed and negative. Physical Exam Vital Signs: Vital Signs: Last Vital Signs Temp 96.8 F 01/19/23 11:24 Pulse 88 01/19/23 11:24 Resp 16 01/19/23 11:24 BP 135/73 01/19/23 11:24 Pulse Ox 97 01/19/23 11:24 O2 Del Method Room Air 01/19/23 11:24 BMI result Body Mass Index 29.2 Const: Other: Gen: in no acute distress HEENT: sclera anicteric, moist mucus membranes Neck: supple Lungs: clear to auscultation bilaterally Heart: regular rate and rhythm, no murmurs Abd: soft, non-tender, non-distended Ext: no edema.? R foot s/p 4th toe amputation.? L foot dressing in place after 3rd toe amputation. Skin: warm/well-perfused Neuro: alert and oriented x3, no focal findings. Psych: appropriate affect Objective Data Active Medications Acetaminophen (Acetaminophen 325 Mg Tablet) 650 mg PO Q6H PRN PRN Reason: Pain, Mild (Pain Scale 1-3) Amlodipine Besylate (Amlodipine Besylate 5 Mg Tablet) 5 mg PO DAILY [facility]; Protocol Last Admin: 01/19/23 11:25 Dose: 5 mg Documented By: CUATE Apixaban (Apixaban 5 Mg Tablet) 5 mg PO BID [facility] Last Admin: 01/17/23 22:30 Dose: Not Given Documented By: MOOSE Non-Admin Reason: Physician Held Med Atorvastatin Calcium (Atorvastatin Calcium 40 Mg Tablet) 40 mg PO BEDTIME [facility] Last Admin: 01/18/23 20:21 Dose: 40 mg Documented By: AUSTIN Dextrose (Dextrose 50 % 25 Gm/50 Ml Syringe) 25 gm IVPUSH Q15M PRN; Protocol PRN Reason: per Hypoglycemia Standing Ord. Glucose (Glucose Gel 15 Gm Gel..Gram.) 15 gm PO Q15M PRN; Protocol PRN Reason: per Hypoglycemia Standing Ord. Hydromorphone HCl (Hydromorphone Hcl 0.5 Mg/0.5 Ml Syringe) 0.5 mg IVPUSH Q3H PRN; Protocol PRN Reason: Pain, Severe (Pain Scale 7-10) Cefazolin Sodium/Dextrose (Ancef) 2 gm in 50 mls @ 100 mls/hr IV Q8H [facility] Last Infusion: 01/19/23 12:10 Dose: 0 mls/hr Documented By: CUATE Lactated Ringer's (Lr) 1,000 mls @ 125 mls/hr IVCONT .Q8H [facility] Last Admin: 01/19/23 05:37 Dose: 125 mls/hr Documented By: MELECIO Insulin Glargine (Insulin Glargine,Hum.Rec.Anlog 100 Unit/Ml 10 Ml Vial) 21 unit SUBCUT BEDTIME [facility] Last Admin: 01/18/23 20:30 Dose: Not Given Documented By: [place]IN Non-Admin Reason: pt will be NPO at midnight. Insulin Human Lispro (Insulin Lispro 100 Unit/Ml 3 Ml Vial) 0 unit SUBCUT QIDACHS [facility]; Protocol Last Admin: 01/19/23 12:06 Dose: 2 unit Documented By: CUATE Comments: POC 195 per Pt home glucometer Melatonin (Melatonin 3 Mg Tablet) 6 mg PO BEDTIME PRN PRN Reason: Insomnia Mirtazapine (Mirtazapine 7.5 Mg Tablet) 7.5 mg PO BEDTIME [facility] Last Admin: 01/18/23 20:21 Dose: 7.5 mg Documented By: A[place] Mycophenolate Sodium (Mycophenolate Sodium 180 Mg Tablet.) 540 mg PO BID [facility] Last Admin: 01/19/23 11:25 Dose: 540 mg Documented By: CUATE Non-Formulary Medication (Calcifediol [Rayaldee]) 30 mcg PO BEDTIME [facility] Ondansetron HCl (Ondansetron Hcl 4 Mg/2 Ml Vial) 4 mg IVPUSH Q8H PRN PRN Reason: Nausea and Vomiting Oxycodone HCl (Oxycodone Hcl Immed Release 5 Mg Tablet) 5 mg PO Q6H PRN PRN Reason: Pain, Moderate(Pain Scale 4-6) Pharmacy Consult (Consult Rx Perform Med Rec) 1 each MISCELLANE ONCE PRN PRN Reason: Consult order Sodium Chloride (0.9 % Sodium Chloride Flush 3 Ml Syringe) 3 ml IVFLUSH QSHIFT [facility] Last Admin: 01/19/23 08:28 Dose: Not Given Documented By: CUATE Non-Admin Reason: IV Running Tacrolimus (Tacrolimus 1 Mg Capsule) 4 mg PO BID [facility] Last Admin: 01/19/23 11:26 Dose: 4 mg Documented By: CUATE Valsartan (Valsartan 40 Mg Tablet) 40 mg PO DAILY [facility]; Protocol Last Admin: 01/19/23 11:25 Dose: 40 mg Documented By: CUATE Labs 01/17/23 08:35 01/19/23 05:34 Labs: Laboratory Results - last 24 hr 01/18/23 01/19/23 05:10 05:34 Anion Gap 15 Estim Creat Clear Calc 71.7 Estimated GFR 56 Random Glucose 108 Calcium 8.8 D Tacrolimus 8.3 Microbiology Microbiology Results: Microbiology 01/16/23 02:54 Blood Culture - Final Blood - Venous Staphylococcus aureus 01/15/23 23:09 Blood Culture - Final Blood - Venous Staphylococcus aureus Assessment and Plan (1) Osteomyelitis: Status: Inactive (2) Wound of right foot: Status: Inactive Plan 52yo M with PAD s/p R 4th toe amputation, CKD4 s/p renal transplant, DM1, hx stage 3 testicular CA, HTN, HLD, admitted for infection of L 3rd toe and found to have osteomyelitis nonhealing DM ulcer of L 3rd toe with osteomyelitis MSSA bacteremia - on IV cefazolin d2, status post vanco + cefepime x 3d - will follow BCx 01/[address] PICC 01/21 - TTE ordered, id recommend 4 weeks of IV cefazolin after 1st negative blood culture - underwent left 3rd toe amputation this morning by Dr. Allen, continue dressing changes as per General surgery CKD4 renal transplant - continue MMF + tacrolimus, level pending - SCr at baseline, DC IV fluids - continue calcifediol HTN - continue amlodipine + valsartan paroxysmal AF - hold apixaban until postop HLD - continue statin mood disorder - continue mirtazapine DM1 - A1c 7, 11/26/22, stable blood sugars 108 - continue basal-bolus insulin VTE ppx - apixaban [held for surgery], SCDs, will resume apixaban as per surgery recommendation. dispo - anticipate eventual home with [facility]NA In my clinical judgment, the patient requires continued inpatient hospitalization for the following reasons: IV ABX, bacteremia. Time Spent With Patient Time: Total time managing care of this patient today ____ minutes. Quality Stroke Does the patient have a stroke diagnosis?: No VTE Prior VTE?: No VTE Risk Level:: Medical - moderate - high VTE Device Contraindication: Treatment Not Indicated VTE Drug Contraindication: N/A - Med Ordered
--- NOTE | 2023-01-19 15:15 | MHC.CM.PN ---
[facility] REVIEWED AND PER MD ROUNDS WILL HAVE LEFT [address] RD TOE AMP TODAY. MAY NEED LT IV ABT, CM WILL CONTINUE TO FOLLOW FOR PLAN. REFERRAL PLACED TO [facility] FOR [facility].
[2023-01-19] MEDS: 0.9 % Sodium Chloride Flush 3 ML SYRINGE IVFLUSH (20:02)
[2023-01-19] MEDS: Mirtazapine 7.5 MG TABLET PO (21:11)
[2023-01-19] MEDS: Atorvastatin Calcium 40 MG TABLET PO (21:12)
[2023-01-20] MEDS: ceFAZolin Sodium/Dextrose,Iso 2 GM/50 ML PIGGYBACK IV ×3 (03:09→19:27)
[2023-01-20 03:37] VITALS: BP 117/68; PULSE 73; RESP 18; TEMP 36.6; O2SAT 96
[2023-01-20 06:18] LABS: Anion Gap 13 (12-20); Blood Urea Nitrogen 13 mg/dL (9-16); Carbon Dioxide 24 mmol/L (22-29); Chloride 107 mmol/L (96-108); Creatinine Clr Calc Pharmacy 61.6; Estimated Glomerular Filt Rate 47; Glucose Random 121 mg/dL (60-115); Potassium 3.8 mmol/L (3.3-5.1); Sodium 140 mmol/L (135-145)
[2023-01-20 07:17] VITALS: BP 112/62; PULSE 72; RESP 16; TEMP 36.3; O2SAT 94
--- NOTE | 2023-01-20 08:37 | PM.PNGS ---
Subjective Subjective Date of Service: 01/20/23 Interval history: patient denies any foot pain at this time. No new concerns. Physical Exam Vital Signs: Vital Signs: Last Vital Signs Temp 97.4 F 01/20/23 07:17 Pulse 72 01/20/23 07:17 Resp 16 01/20/23 07:17 BP 112/62 01/20/23 07:17 Pulse Ox 94 01/20/23 07:17 O2 Del Method Room Air 01/20/23 07:17 BMI result Body Mass Index 29.2 Const: General: no acute distress Nutritional Appearance: well nourished Orientation/consciousness: patient oriented x3 Limitations: no limitations Resp: Effort & Inspection: normal respiratory effort Skin: General skin exam: no rashes or lesions noted Neuro: General: patient oriented x3 Extrem: Other: Dressings changed to the left foot. Third toe incision is clean, dry, and intact. And intact. Wounds dressed with fluff gauze followed by Kerlix. Patient tolerated dressing change well. Objective Data Active Medications Acetaminophen (Acetaminophen 325 Mg Tablet) 650 mg PO Q6H PRN PRN Reason: Pain, Mild (Pain Scale 1-3) Amlodipine Besylate (Amlodipine Besylate 5 Mg Tablet) 5 mg PO DAILY [facility]; Protocol Last Admin: 01/19/23 11:25 Dose: 5 mg Documented By: CUATE Apixaban (Apixaban 5 Mg Tablet) 5 mg PO BID [facility] Last Admin: 01/17/23 22:30 Dose: Not Given Documented By: MOOSE Non-Admin Reason: Physician Held Med Atorvastatin Calcium (Atorvastatin Calcium 40 Mg Tablet) 40 mg PO BEDTIME [facility] Last Admin: 01/19/23 21:12 Dose: 40 mg Documented By: MARKELL Dextrose (Dextrose 50 % 25 Gm/50 Ml Syringe) 25 gm IVPUSH Q15M PRN; Protocol PRN Reason: per Hypoglycemia Standing Ord. Glucose (Glucose Gel 15 Gm Gel..Gram.) 15 gm PO Q15M PRN; Protocol PRN Reason: per Hypoglycemia Standing Ord. Hydromorphone HCl (Hydromorphone Hcl 0.5 Mg/0.5 Ml Syringe) 0.5 mg IVPUSH Q3H PRN; Protocol PRN Reason: Pain, Severe (Pain Scale 7-10) Cefazolin Sodium/Dextrose (Ancef) 2 gm in 50 mls @ 100 mls/hr IV Q8H [facility] Last Infusion: 01/20/23 03:43 Dose: 0 mls/hr Documented By: MARKELL Insulin Glargine (Insulin Glargine,Hum.Rec.Anlog 100 Unit/Ml 10 Ml Vial) 21 unit SUBCUT BEDTIME [facility] Last Admin: 01/19/23 21:20 Dose: Not Given Documented By: MARKELL Non-Admin Reason: Patient Refused Insulin Human Lispro (Insulin Lispro 100 Unit/Ml 3 Ml Vial) 0 unit SUBCUT QIDACHS [facility]; Protocol Last Admin: 01/20/23 07:06 Dose: Not Given Documented By: QUIQUE Non-Admin Reason: No Insulin Coverage Comments: self tested blood glucose was 142 Melatonin (Melatonin 3 Mg Tablet) 6 mg PO BEDTIME PRN PRN Reason: Insomnia Mirtazapine (Mirtazapine 7.5 Mg Tablet) 7.5 mg PO BEDTIME [facility] Last Admin: 01/19/23 21:11 Dose: 7.5 mg Documented By: MARKELL Mycophenolate Sodium (Mycophenolate Sodium 180 Mg Tablet.) 540 mg PO BID [facility] Last Admin: 01/19/23 21:11 Dose: 540 mg Documented By: MARKELL Non-Formulary Medication (Calcifediol [Rayaldee]) 30 mcg PO BEDTIME [facility] Ondansetron HCl (Ondansetron Hcl 4 Mg/2 Ml Vial) 4 mg IVPUSH Q8H PRN PRN Reason: Nausea and Vomiting Oxycodone HCl (Oxycodone Hcl Immed Release 5 Mg Tablet) 5 mg PO Q6H PRN PRN Reason: Pain, Moderate(Pain Scale 4-6) Pharmacy Consult (Consult Rx Perform Med Rec) 1 each MISCELLANE ONCE PRN PRN Reason: Consult order Sodium Chloride (0.9 % Sodium Chloride Flush 3 Ml Syringe) 3 ml IVFLUSH QSHIFT [facility] Last Admin: 01/19/23 20:02 Dose: 3 ml Documented By: MARKELL Tacrolimus (Tacrolimus 1 Mg Capsule) 4 mg PO BID [facility] Last Admin: 01/19/23 21:21 Dose: 4 mg Documented By: MARKELL Valsartan (Valsartan 40 Mg Tablet) 40 mg PO DAILY [facility]; Protocol Last Admin: 01/19/23 11:25 Dose: 40 mg Documented By: CUATE Labs 01/17/23 08:35 01/20/23 05:35 Labs: Laboratory Results - last 24 hr 01/20/23 05:35 Anion Gap 13 Estim Creat Clear Calc 61.6 Estimated GFR 47 Random Glucose 121 H Calcium 9.0 Microbiology Microbiology Results: Microbiology 01/19/23 05:33 Blood Culture - Preliminary Blood - Venous No growth after 24 hours. 01/19/23 05:34 Blood Culture - Preliminary Blood - Venous No growth after 24 hours. 01/16/23 02:54 Blood Culture - Final Blood - Venous Staphylococcus aureus 01/15/23 23:09 Blood Culture - Final Blood - Venous Staphylococcus aureus Procedures Date of Service Date of Service: 01/20/23 Progress Note: A&P Assessment and plan (1) Osteomyelitis of third toe of left foot: Status: Acute Plan Pod 1 following amputation of the left 3rd toe. He tolerated procedure well the wounds are healing nicely. He should continue with daily dressing changes to the left foot including fluffed gauze, and Kerlix. He should avoid ambulation as much as possible. Recommended keeping his legs elevated as much as possible as well. He should follow up in the office in 1 week for wound examination if discharged. Time Spent With Patient Time: Total time managing care of this patient today ____ minutes. Quality Stroke Does the patient have a stroke diagnosis?: No VTE Prior VTE?: No VTE Risk Level:: Medical - moderate - high VTE Device Contraindication: Treatment Not Indicated VTE Drug Contraindication: N/A - Med Ordered
--- NOTE | 2023-01-20 09:17 | HO.POSTANES ---
Post Anesthesia Evaluation Post Anesthesia Evaluation Date of Service: 01/20/23 Vital Signs: Vital Signs Temp Pulse Resp BP Pulse Ox O2 Del Method 01/20/23 07:17 97.4 F 72 16 112/62 94 Room Air 01/20/23 03:37 97.9 F 73 18 117/68 96 Room Air 01/19/23 23:18 98 F 76 18 144/79 H 98 Room Air Anesthesia: Monitored Mental Status: Awake Pain Control: Satisfactory Nausea/Vomiting: None Hydration: Adequate Anesthesia-Related Issues: No Anes. Related Issues
[2023-01-20] MEDS: Apixaban 5 MG TABLET PO ×2 (09:20→21:08)
[2023-01-20] MEDS: Tacrolimus 1 MG CAPSULE 4 MG PO ×2 (09:20→21:08)
[2023-01-20] MEDS: Valsartan 40 MG TABLET PO (09:21)
[2023-01-20] MEDS: amLODIPine Besylate 5 MG TABLET PO (09:21)
[2023-01-20] MEDS: Mycophenolate Sodium 180 MG TABLET.DR 540 MG PO ×2 (09:21→21:08)
[2023-01-20] MEDS: 0.9 % Sodium Chloride Flush 3 ML SYRINGE IVFLUSH ×2 (09:21→19:26)
--- NOTE | 2023-01-20 10:19 | PM.PNNEP ---
Subjective Subjective Date of Service: 01/21/23 Interval history: patient underwent left 3rd toe amputation Physical Exam Vital Signs: Vital Signs: Last Vital Signs Temp 97.4 F 01/20/23 07:17 Pulse 72 01/20/23 07:17 Resp 16 01/20/23 07:17 BP 112/62 01/20/23 07:17 Pulse Ox 94 01/20/23 07:17 O2 Del Method Room Air 01/20/23 07:17 BMI result Body Mass Index 29.2 Const: Orientation/consciousness: patient oriented x3 Resp: Effort & Inspection: normal respiratory effort, no audible wheezes, no cough and no respiratory distress Cardio: Jugular venous distension: no JVD Neuro: General: patient oriented x3 Extrem: General: Yes no clubbing, cyanosis or edema Objective Data Labs 01/17/23 08:35 01/20/23 05:35 Labs: Laboratory Results - last 24 hr 01/20/23 05:35 Sodium 140 Potassium 3.8 Chloride 107 Carbon Dioxide 24 Anion Gap 13 BUN 13 Creatinine 1.57 H Estim Creat Clear Calc 61.6 Estimated GFR 47 Random Glucose 121 H Calcium 9.0 Microbiology Microbiology Results: Microbiology 01/19/23 05:33 Blood - Venous Blood Culture - Preliminary No growth after 24 hours. 01/19/23 05:34 Blood - Venous Blood Culture - Preliminary No growth after 24 hours. 01/16/23 02:54 Blood - Venous Blood Culture - Final Staphylococcus aureus 01/15/23 23:09 Blood - Venous Blood Culture - Final Staphylococcus aureus Procedures Date of Service Date of Service: 01/21/23 Assessment & Plan Assessment and plan (1) Osteomyelitis of third toe of left foot: Status: Acute (2) Renal transplant recipient: Status: Acute Plan 52-year-old man with ESRD s/p DDKT 10/22/2016 with bL Cr 1.6-1.7mg/dL who presents for left third toe infection with OM on MRI. He has just finished in November six weeks IV Ertapenem for infection around area of right fourth toe. He has had right fourth toe removal 10/2022. 1. ESRD s/p DDKT CKD of allograft with BL Cr 1.6-1.7mg/dL immunosuppressed with Tac 4mg BID and Myfortic 540 BID Cr better to 1.6mg/dL with IVF support PLan: - c/w Tac 4mg dosed 7aM and 7PM - check Tac as needed (Goal 6-8) - c/w Myfortic 540mg BID - Abx per ID. Monitor vanco trough. -Keep I > O Time Spent With Patient Time: Total time managing care of this patient today ____ minutes. Progress Note: Quality Stroke Does the patient have a stroke diagnosis?: No
[2023-01-20 12:08] LABS: Tacrolimus Prograf 8.9 NG/ML ((5-20))
[2023-01-20] MEDS: Insulin Lispro 100 UNIT/ML 3 ML VIAL SUBCUT ×2 (12:15→16:56)
--- NOTE | 2023-01-20 13:26 | P.PNIM_ITS ---
Subjective Subjective Date of Service: 01/20/23 Interval History: being followed for MSSA bacteremia, status post amputation left 3rd toe, denies pain, no fevers, no chills, dressing change by General surgery this morning, no acute issues overnight tolerating diet with no nausea no vomiting, no abdominal pain. Review of Systems All other system reviewed and negative. Physical Exam Vital Signs: Vital Signs: Last Vital Signs Temp 97.4 F 01/20/23 07:17 Pulse 72 01/20/23 07:17 Resp 16 01/20/23 07:17 BP 112/62 01/20/23 07:17 Pulse Ox 94 01/20/23 07:17 O2 Del Method Room Air 01/20/23 07:17 BMI result Body Mass Index 29.2 Const: Other: Gen: in no acute distress HEENT: sclera anicteric, moist mucus membranes Neck: supple Lungs: clear to auscultation bilaterally Heart: regular rate and rhythm, no murmurs Abd: soft, non-tender, non-distended Ext: no edema.? R foot s/p 4th toe amputation.? L foot? dressing in place after 3rd toe amputation. Skin: warm/well-perfused Neuro: alert and oriented x3, no focal findings. Psych: appropriate affect Objective Data Active Medications Acetaminophen (Acetaminophen 325 Mg Tablet) 650 mg PO Q6H PRN PRN Reason: Pain, Mild (Pain Scale 1-3) Amlodipine Besylate (Amlodipine Besylate 5 Mg Tablet) 5 mg PO DAILY [facility]; Protocol Last Admin: 01/20/23 09:21 Dose: 5 mg Documented By: QUIQUE Apixaban (Apixaban 5 Mg Tablet) 5 mg PO BID [facility] Last Admin: 01/20/23 09:20 Dose: 5 mg Documented By: QUIQUE Atorvastatin Calcium (Atorvastatin Calcium 40 Mg Tablet) 40 mg PO BEDTIME [facility] Last Admin: 01/19/23 21:12 Dose: 40 mg Documented By: MARKELL Dextrose (Dextrose 50 % 25 Gm/50 Ml Syringe) 25 gm IVPUSH Q15M PRN; Protocol PRN Reason: per Hypoglycemia Standing Ord. Glucose (Glucose Gel 15 Gm Gel..Gram.) 15 gm PO Q15M PRN; Protocol PRN Reason: per Hypoglycemia Standing Ord. Hydromorphone HCl (Hydromorphone Hcl 0.5 Mg/0.5 Ml Syringe) 0.5 mg IVPUSH Q3H PRN; Protocol PRN Reason: Pain, Severe (Pain Scale 7-10) Cefazolin Sodium/Dextrose (Ancef) 2 gm in 50 mls @ 100 mls/hr IV Q8H [facility] Last Infusion: 01/20/23 12:50 Dose: 0 mls/hr Documented By: QUIQUE Insulin Glargine (Insulin Glargine,Hum.Rec.Anlog 100 Unit/Ml 10 Ml Vial) 21 unit SUBCUT BEDTIME [facility] Last Admin: 01/19/23 21:20 Dose: Not Given Documented By: MARKELL Non-Admin Reason: Patient Refused Insulin Human Lispro (Insulin Lispro 100 Unit/Ml 3 Ml Vial) 0 unit SUBCUT QIDACHS [facility]; Protocol Last Admin: 01/20/23 12:15 Dose: 2 unit Documented By: QUIQUE Comments: 191 Melatonin (Melatonin 3 Mg Tablet) 6 mg PO BEDTIME PRN PRN Reason: Insomnia Mirtazapine (Mirtazapine 7.5 Mg Tablet) 7.5 mg PO BEDTIME [facility] Last Admin: 01/19/23 21:11 Dose: 7.5 mg Documented By: MARKELL Mycophenolate Sodium (Mycophenolate Sodium 180 Mg Tablet.) 540 mg PO BID [facility] Last Admin: 01/20/23 09:21 Dose: 540 mg Documented By: QUIQUE Non-Formulary Medication (Calcifediol [Rayaldee]) 30 mcg PO BEDTIME [facility] Ondansetron HCl (Ondansetron Hcl 4 Mg/2 Ml Vial) 4 mg IVPUSH Q8H PRN PRN Reason: Nausea and Vomiting Oxycodone HCl (Oxycodone Hcl Immed Release 5 Mg Tablet) 5 mg PO Q6H PRN PRN Reason: Pain, Moderate(Pain Scale 4-6) Pharmacy Consult (Consult Rx Perform Med Rec) 1 each MISCELLANE ONCE PRN PRN Reason: Consult order Sodium Chloride (0.9 % Sodium Chloride Flush 3 Ml Syringe) 3 ml IVFLUSH QSHIFT [facility] Last Admin: 01/20/23 09:21 Dose: 3 ml Documented By: QUIQUE Tacrolimus (Tacrolimus 1 Mg Capsule) 4 mg PO BID [facility] Last Admin: 01/20/23 09:20 Dose: 4 mg Documented By: QUIQUE Valsartan (Valsartan 40 Mg Tablet) 40 mg PO DAILY [facility]; Protocol Last Admin: 01/20/23 09:21 Dose: 40 mg Documented By: QUIQUE Labs 01/17/23 08:35 01/20/23 05:35 Labs: Laboratory Results - last 24 hr 01/19/23 01/20/23 05:34 05:35 Anion Gap 13 Estim Creat Clear Calc 61.6 Estimated GFR 47 Random Glucose 121 H Calcium 9.0 Tacrolimus 8.9 Microbiology Microbiology Results: Microbiology 01/19/23 05:33 Blood Culture - Preliminary Blood - Venous No growth after 24 hours. 01/19/23 05:34 Blood Culture - Preliminary Blood - Venous No growth after 24 hours. 01/16/23 02:54 Blood Culture - Final Blood - Venous Staphylococcus aureus Assessment and Plan (1) Osteomyelitis: Status: Inactive (2) Wound of right foot: Status: Inactive Plan 52yo M with PAD s/p R 4th toe amputation, CKD4 s/p renal transplant, DM1, hx stage 3 testicular CA, HTN, HLD, admitted for infection of L 3rd toe and found to have osteomyelitis nonhealing DM ulcer of L 3rd toe with osteomyelitis MSSA bacteremia - on IV cefazolin d3, status post vanco + cefepime x 3d - will follow BCx 01/[address] alston 01/21 - TTE showed no regional wall motion abnormalities, abnormal diastolic function, EF 60-65% no valvular disease, id recommend 4 weeks of IV cefazolin after 1st negative blood culture - underwent left 3rd toe amputation 01/[address] Allen, continue dressing changes as per General surgery CKD4 renal transplant - continue MMF + tacrolimus,level 8.9 within therapeutic range - SCr at baseline - continue calcifediol HTN - stable BP, continue amlodipine + valsartan paroxysmal AF - resume Eliquis HLD - continue statin mood disorder - continue mirtazapine DM1 - A1c 7, 11/26/22, stable blood sugars 108 - continue basal-bolus insulin VTE ppx - apixaban dispo - anticipate eventual home with VNA In my clinical judgment, the patient requires continued inpatient hospitalization for the following reasons: IV ABX, bacteremia, waiting for repeat blood culture report and Alston catheter placement. Time Spent With Patient Time: Total time managing care of this patient today ____ minutes. Quality Stroke Does the patient have a stroke diagnosis?: No VTE Prior VTE?: No VTE Risk Level:: Medical - moderate - high VTE Device Contraindication: Treatment Not Indicated VTE Drug Contraindication: N/A - Med Ordered
[2023-01-20 15:35] VITALS: BP 112/68; PULSE 74; RESP 18; TEMP 36.2; O2SAT 93
[2023-01-20 19:19] VITALS: BP 130/64; PULSE 82; RESP 18; TEMP 36.5; O2SAT 97
[2023-01-20] MEDS: Insulin Glargine,Hum.rec.anlog 100 UNIT/ML 10 ML VIAL 21 UNIT SUBCUT (21:07)
[2023-01-20] MEDS: Mirtazapine 7.5 MG TABLET PO (21:08)
[2023-01-20] MEDS: Atorvastatin Calcium 40 MG TABLET PO (21:08)
[2023-01-21] MEDS: ceFAZolin Sodium/Dextrose,Iso 2 GM/50 ML PIGGYBACK IV ×3 (03:09→19:17)
[2023-01-21 03:51] VITALS: BP 125/69; PULSE 71; RESP 18; TEMP 36.4; O2SAT 98
--- NOTE | 2023-01-21 07:22 | P.CDIM_ITS ---
PROVIDER RESPONSE TEXT: To clarify, the appropriate diagnosis supported by the clinical indicators: Acute on chronic QUERY TEXT: PHYSICIAN'S DOCUMENTATION REQUEST Date of Query: 01/20/2023 10:02 AM EDT Patient Name: Raheem Castro Admit Date: 01/16/2023 Dear Oswaldo Arvizu, A review of the medical record indicates additional documentation may be needed. Please review below and update the documentation accordingly. Clinical Indicators: Per Hospitalist Progress Note 01/19/23: nonhealing DM ulcer of L 3rd toe with osteomyelitis Clarify which of the following accurately represents the acuity of the Osteomyelitis. Possible options might include: Acute Acute on chronic Compensated Chronic stable condition Remission Other (explain)Clinically unable to determine (explain)Thank you, Chiara Roman RN Use of terms such as suspected, likely, concern for, or probable (associated with a specific diagnosi s that is being evaluated, monitored, or treated as if it exists) are acceptable and can be coded in the inpatient se tting, when documented at the time of discharge. Please use your independent medical judgment in providing your response. THIS QUERY IS PART OF THE PERMANENT MEDICAL RECORD
[2023-01-21] MEDS: Insulin Lispro 100 UNIT/ML 3 ML VIAL SUBCUT ×4 (08:04→20:17)
[2023-01-21] MEDS: 0.9 % Sodium Chloride Flush 3 ML SYRINGE IVFLUSH ×2 (08:04→20:23)
[2023-01-21] MEDS: Mycophenolate Sodium 180 MG TABLET.DR 540 MG PO ×2 (08:04→20:16)
[2023-01-21] MEDS: Tacrolimus 1 MG CAPSULE 4 MG PO ×2 (08:04→20:16)
[2023-01-21] MEDS: Apixaban 5 MG TABLET PO (08:05)
[2023-01-21] MEDS: amLODIPine Besylate 5 MG TABLET PO (08:05)
[2023-01-21] MEDS: Valsartan 40 MG TABLET PO (08:05)
--- NOTE | 2023-01-21 10:26 | PM.PNNEP ---
Subjective Subjective Date of Service: 01/22/23 Interval history: Events noted PO intake is adequate Physical Exam Vital Signs: Vital Signs: Last Vital Signs Temp 97.6 F 01/21/23 03:51 Pulse 71 01/21/23 03:51 Resp 18 01/21/23 03:51 BP 125/69 01/21/23 03:51 Pulse Ox 98 01/21/23 03:51 O2 Del Method Room Air 01/21/23 03:51 BMI result Body Mass Index 29.2 Const: Orientation/consciousness: patient oriented x3 Resp: Effort & Inspection: normal respiratory effort, no audible wheezes, no cough and no respiratory distress Cardio: Jugular venous distension: no JVD Neuro: General: patient oriented x3 Extrem: General: Yes no clubbing, cyanosis or edema Objective Data Labs 01/17/23 08:35 01/20/23 05:35 Labs: Laboratory Results - last 24 hr 01/19/23 05:34 Tacrolimus 8.9 Microbiology Microbiology Results: Microbiology 01/19/23 05:33 Blood - Venous Blood Culture - Preliminary No growth after 48 hours. 01/19/23 05:34 Blood - Venous Blood Culture - Preliminary No growth after 48 hours. 01/16/23 02:54 Blood - Venous Blood Culture - Final Staphylococcus aureus 01/15/23 23:09 Blood - Venous Blood Culture - Final Staphylococcus aureus Procedures Date of Service Date of Service: 01/22/23 Assessment & Plan Assessment and plan (1) Osteomyelitis of third toe of left foot: Status: Acute (2) Renal transplant recipient: Status: Acute Plan 52-year-old man with ESRD s/p DDKT 10/22/2016 with bL Cr 1.6-1.7mg/dL who presents for left third toe infection with OM on MRI. He has just finished in November six weeks IV Ertapenem for infection around area of right fourth toe. He has had right fourth toe removal 10/2022. 1. ESRD s/p DDKT CKD of allograft with BL Cr 1.6-1.7mg/dL immunosuppressed with Tac 4mg BID and Myfortic 540 BID Cr better REchceck tomorrow PLan: - c/w Tac 4mg dosed 7aM and 7PM - check Tac as needed (Goal 6-8) - c/w Myfortic 540mg BID - Abx per ID. Monitor vanco trough. -Keep I > O Time Spent With Patient Time: Total time managing care of this patient today ____ minutes. Progress Note: Quality Stroke Does the patient have a stroke diagnosis?: No
--- NOTE | 2023-01-21 10:57 | P.PNIM_ITS ---
Subjective Subjective Date of Service: 01/21/23 Interval History: Being followed for left 3rd toe osteomyelitis status post amputation and MSSA bacteremia. Denies pain, no nausea, no vomiting, no abdominal pain, no fevers, no chills being followed by General surgery for dressing change. Review of Systems All other system reviewed and negative Physical Exam Vital Signs: Vital Signs: Last Vital Signs Temp 97.6 F 01/21/23 03:51 Pulse 71 01/21/23 03:51 Resp 18 01/21/23 03:51 BP 125/69 01/21/23 03:51 Pulse Ox 98 01/21/23 03:51 O2 Del Method Room Air 01/21/23 03:51 BMI result Body Mass Index 29.2 Const: Other: Gen: Awake alert, resting comfortably, in no acute distress HEENT: sclera anicteric, moist mucus membranes Neck: supple Lungs: clear to auscultation bilaterally Heart: regular rate and rhythm, no murmurs Abd: soft, non-tender, non-distended Ext: no edema.? R foot s/p 4th toe amputation.? L foot? dressing in place after 3rd toe amputation. Skin: warm/well-perfused Neuro: alert and oriented x3, no focal findings. Psych: appropriate affect Objective Data Active Medications Acetaminophen (Acetaminophen 325 Mg Tablet) 650 mg PO Q6H PRN PRN Reason: Pain, Mild (Pain Scale 1-3) Amlodipine Besylate (Amlodipine Besylate 5 Mg Tablet) 5 mg PO DAILY [facility]; Protocol Last Admin: 01/21/23 08:05 Dose: 5 mg Documented By: QUIQUE Apixaban (Apixaban 5 Mg Tablet) 5 mg PO BID [facility] Last Admin: 01/21/23 08:05 Dose: 5 mg Documented By: QUIQUE Atorvastatin Calcium (Atorvastatin Calcium 40 Mg Tablet) 40 mg PO BEDTIME [facility] Last Admin: 01/20/23 21:08 Dose: 40 mg Documented By: MARKELL Dextrose (Dextrose 50 % 25 Gm/50 Ml Syringe) 25 gm IVPUSH Q15M PRN; Protocol PRN Reason: per Hypoglycemia Standing Ord. Glucose (Glucose Gel 15 Gm Gel..Gram.) 15 gm PO Q15M PRN; Protocol PRN Reason: per Hypoglycemia Standing Ord. Hydromorphone HCl (Hydromorphone Hcl 0.5 Mg/0.5 Ml Syringe) 0.5 mg IVPUSH Q3H PRN; Protocol PRN Reason: Pain, Severe (Pain Scale 7-10) Cefazolin Sodium/Dextrose (Ancef) 2 gm in 50 mls @ 100 mls/hr IV Q8H [facility] Last Infusion: 01/21/23 03:48 Dose: 0 mls/hr Documented By: CASTILJose Manuel Insulin Glargine (Insulin Glargine,Hum.Rec.Anlog 100 Unit/Ml 10 Ml Vial) 21 unit SUBCUT BEDTIME [facility] Last Admin: 01/20/23 21:07 Dose: 21 unit Documented By: MARKELL Insulin Human Lispro (Insulin Lispro 100 Unit/Ml 3 Ml Vial) 0 unit SUBCUT QIDACHS [facility]; Protocol Last Admin: 01/21/23 08:04 Dose: 2 unit Documented By: QUIQUE Comments: poc 169 Melatonin (Melatonin 3 Mg Tablet) 6 mg PO BEDTIME PRN PRN Reason: Insomnia Mirtazapine (Mirtazapine 7.5 Mg Tablet) 7.5 mg PO BEDTIME [facility] Last Admin: 01/20/23 21:08 Dose: 7.5 mg Documented By: MARKELL Mycophenolate Sodium (Mycophenolate Sodium 180 Mg Tablet.) 540 mg PO BID [facility] Last Admin: 01/21/23 08:04 Dose: 540 mg Documented By: QUIQUE Non-Formulary Medication (Calcifediol [Rayaldee]) 30 mcg PO BEDTIME [facility] Ondansetron HCl (Ondansetron Hcl 4 Mg/2 Ml Vial) 4 mg IVPUSH Q8H PRN PRN Reason: Nausea and Vomiting Oxycodone HCl (Oxycodone Hcl Immed Release 5 Mg Tablet) 5 mg PO Q6H PRN PRN Reason: Pain, Moderate(Pain Scale 4-6) Pharmacy Consult (Consult Rx Perform Med Rec) 1 each MISCELLANE ONCE PRN PRN Reason: Consult order Sodium Chloride (0.9 % Sodium Chloride Flush 3 Ml Syringe) 3 ml IVFLUSH QSHIFT [facility] Last Admin: 01/21/23 08:04 Dose: 3 ml Documented By: QUIQUE Tacrolimus (Tacrolimus 1 Mg Capsule) 4 mg PO BID [facility] Last Admin: 01/21/23 08:04 Dose: 4 mg Documented By: QUIQUE Valsartan (Valsartan 40 Mg Tablet) 40 mg PO DAILY [facility]; Protocol Last Admin: 01/21/23 08:05 Dose: 40 mg Documented By: QUIQUE Labs 01/17/23 08:35 01/20/23 05:35 Labs: Laboratory Results - last 24 hr 01/19/23 05:34 Tacrolimus 8.9 Microbiology Microbiology Results: Microbiology 01/19/23 05:33 Blood Culture - Preliminary Blood - Venous No growth after 48 hours. 01/19/23 05:34 Blood Culture - Preliminary Blood - Venous No growth after 48 hours. Assessment and Plan (1) Osteomyelitis: Status: Inactive (2) Wound of right foot: Status: Inactive Plan 52yo M with PAD s/p R 4th toe amputation, CKD4 s/p renal transplant, DM1, hx stage 3 testicular CA, HTN, HLD, admitted for infection of L 3rd toe and found to have osteomyelitis nonhealing DM ulcer of L 3rd toe with osteomyelitis MSSA bacteremia - on IV cefazolin d4, status post vanco + cefepime x 3d - BCx 01/19 negative times 48 hours, alston cath ordered but since patient on Eliquis procedure will be done on Thursday - TTE showed no regional wall motion abnormalities, abnormal diastolic funct ion, EF 60-65% no valvular disease, id recommend 4 weeks of IV cefazolin after 1st negative blood culture - good pain control DC IV Dilaudid continue as needed oxycodone - underwent left 3rd toe amputation 01/[address] Allen, continue dressing changes as per General surgery CKD4 renal transplant - continue MMF + tacrolimus,level 8.9 within therapeutic range - SCr at baseline, continue calcifediol -being followed by Nephrology 2 HTN - stable BP, continue amlodipine + valsartan paroxysmal AF - hold Eliquis for Alston catheter placement HLD - continue statin mood disorder - continue mirtazapine DM1 - A1c 7, 11/26/22, stable blood sugars 108 - continue basal-and bolus insulin VTE ppx - apixaban on hold will place on compression boots dispo - anticipate eventual home with VNA In my clinical judgment, the patient requires continued inpatient hospitalization for the following reasons: IV ABX, bacteremia, waiting for repeat blood culture report and Alston catheter placement. Time Spent With Patient Time: Total time managing care of this patient today ____ minutes. Quality Stroke Does the patient have a stroke diagnosis?: No VTE Prior VTE?: No VTE Risk Level:: Medical - moderate - high VTE Device Contraindication: Treatment Not Indicated VTE Drug Contraindication: N/A - Med Ordered
[2023-01-21 15:05] VITALS: BP 118/58; PULSE 82; RESP 18; TEMP 36.3; O2SAT 97
--- NOTE | 2023-01-21 15:09 | MHC.CM.PN ---
Per MD rounds Alston insertion is planned for Thursday. Khai is on hold for the procedure. DP Home with IV ABX. Family will transport home.
[2023-01-21 19:24] VITALS: BP 136/70; PULSE 74; RESP 16; TEMP 36.8; O2SAT 98
[2023-01-21] MEDS: Atorvastatin Calcium 40 MG TABLET PO (20:15)
[2023-01-21] MEDS: Mirtazapine 7.5 MG TABLET PO (20:16)
[2023-01-21 22:51] VITALS: BP 112/57; RESP 16; TEMP 35.6
--- NOTE | 2023-01-21 23:36 | P.PNID_ITS ---
Subjective Subjective Date of Service: 01/21/23 Critical Care Time (minutes): 15 Comment: he has MSSA bacteremia Objective Data Labs 01/17/23 08:35 01/20/23 05:35 Microbiology Microbiology Results: Microbiology 01/19/23 05:33 Blood - Venous Blood Culture - Preliminary No growth after 48 hours. 01/19/23 05:34 Blood - Venous Blood Culture - Preliminary No growth after 48 hours. 01/16/23 02:54 Blood - Venous Blood Culture - Final Staphylococcus aureus 01/15/23 23:09 Blood - Venous Blood Culture - Final Staphylococcus aureus Physical Exam Vital Signs: Vital Signs: Last Vital Signs Temp 98.3 F 01/21/23 19:24 Pulse 74 01/21/23 19:24 Resp 16 01/21/23 19:24 BP 136/70 01/21/23 19:24 Pulse Ox 98 01/21/23 19:24 O2 Del Method Room Air 01/21/23 19:24 BMI result Body Mass Index 29.2 Const: General: cooperative Resp: Effort & Inspection: normal respiratory effort Cardio: Rate: regular rate Rhythm: regular rhythm GI: Inspection: Yes normal to inspection Extrem: Other: wound foot no change Assessment and Plan Assessment and plan (1) MSSA bacteremia: Problem details: MSSA bacteremia Affected bone removed foot [facility] Follow up echo. Done Kefzol 03/02 six weeks in case residual osteomyelitis. Status: Acute Time Spent With Patient Time: Total time managing care of this patient today ____ minutes.
[2023-01-22 01:41] VITALS: BP 112/57; PULSE 83; RESP 18; TEMP 36.2; O2SAT 96
[2023-01-22] MEDS: ceFAZolin Sodium/Dextrose,Iso 2 GM/50 ML PIGGYBACK IV ×3 (02:47→18:16)
[2023-01-22 03:52] VITALS: BP 122/64; PULSE 69; RESP 19; TEMP 36.2; O2SAT 94
[2023-01-22] MEDS: 0.9 % Sodium Chloride Flush 3 ML SYRINGE IVFLUSH ×3 (07:21→21:55)
[2023-01-22] MEDS: Insulin Lispro 100 UNIT/ML 3 ML VIAL SUBCUT ×4 (07:21→22:07)
[2023-01-22 07:28] VITALS: BP 109/70; PULSE 71; RESP 18; TEMP 36.7; O2SAT 95
[2023-01-22] MEDS: Tacrolimus 1 MG CAPSULE 4 MG PO ×2 (08:02→21:54)
[2023-01-22] MEDS: amLODIPine Besylate 5 MG TABLET PO (08:02)
[2023-01-22] MEDS: Mycophenolate Sodium 180 MG TABLET.DR 540 MG PO ×2 (08:02→21:54)
[2023-01-22] MEDS: Valsartan 40 MG TABLET PO (08:02)
--- NOTE | 2023-01-22 09:02 | P.PNGS_ITS ---
Subjective Subjective Date of Service: 01/22/23 Interval history: No new complaints, awaiting PICC line placement Physical Exam Vital Signs: Vital Signs: Last Vital Signs Temp 98.0 F 01/22/23 07:28 Pulse 71 01/22/23 07:28 Resp 18 01/22/23 07:28 BP 109/70 01/22/23 07:28 Pulse Ox 95 01/22/23 07:28 O2 Del Method Room Air 01/22/23 07:28 BMI result Body Mass Index 29.2 Const: General: cooperative Resp: Effort & Inspection: normal respiratory effort Cardio: Rate: regular rate Rhythm: regular rhythm GI: Inspection: Yes normal to inspection Extrem: Other: dressings changed to left foot. Incisions are clean and intact, no erythema discharge noted. Healing nicely. Objective Data Active Medications Acetaminophen (Acetaminophen 325 Mg Tablet) 650 mg PO Q6H PRN PRN Reason: Pain, Mild (Pain Scale 1-3) Amlodipine Besylate (Amlodipine Besylate 5 Mg Tablet) 5 mg PO DAILY [facility]; Protocol Last Admin: 01/22/23 08:02 Dose: 5 mg Documented By: JOSH Atorvastatin Calcium (Atorvastatin Calcium 40 Mg Tablet) 40 mg PO BEDTIME [facility] Last Admin: 01/21/23 20:15 Dose: 40 mg Documented By: GASTON Dextrose (Dextrose 50 % 25 Gm/50 Ml Syringe) 25 gm IVPUSH Q15M PRN; Protocol PRN Reason: per Hypoglycemia Standing Ord. Glucose (Glucose Gel 15 Gm Gel..Gram.) 15 gm PO Q15M PRN; Protocol PRN Reason: per Hypoglycemia Standing Ord. Cefazolin Sodium/Dextrose (Ancef) 2 gm in 50 mls @ 100 mls/hr IV Q8H [facility] Last Infusion: 01/22/23 03:30 Dose: 0 mls/hr Documented By: GASTON Insulin Glargine (Insulin Glargine,Hum.Rec.Anlog 100 Unit/Ml 10 Ml Vial) 21 unit SUBCUT BEDTIME [facility] Last Admin: 01/21/23 20:23 Dose: Not Given Documented By: GASTON Non-Admin Reason: Patient Refused Insulin Human Lispro (Insulin Lispro 100 Unit/Ml 3 Ml Vial) 0 unit SUBCUT QIDACHS [facility]; Protocol Last Admin: 01/22/23 07:21 Dose: 2 unit Documented By: JOSH Melatonin (Melatonin 3 Mg Tablet) 6 mg PO BEDTIME PRN PRN Reason: Insomnia Mirtazapine (Mirtazapine 7.5 Mg Tablet) 7.5 mg PO BEDTIME [facility] Last Admin: 01/21/23 20:16 Dose: 7.5 mg Documented By: GASTON Mycophenolate Sodium (Mycophenolate Sodium 180 Mg Tablet.) 540 mg PO BID [facility] Last Admin: 01/22/23 08:02 Dose: 540 mg Documented By: JOSH Non-Formulary Medication (Calcifediol [Rayaldee]) 30 mcg PO BEDTIME [facility] Ondansetron HCl (Ondansetron Hcl 4 Mg/2 Ml Vial) 4 mg IVPUSH Q8H PRN PRN Reason: Nausea and Vomiting Oxycodone HCl (Oxycodone Hcl Immed Release 5 Mg Tablet) 5 mg PO Q6H PRN PRN Reason: Pain, Moderate(Pain Scale 4-6) Pharmacy Consult (Consult Rx Perform Med Rec) 1 each MISCELLANE ONCE PRN PRN Reason: Consult order Sodium Chloride (0.9 % Sodium Chloride Flush 3 Ml Syringe) 3 ml IVFLUSH QSHIFT [facility] Last Admin: 01/22/23 07:21 Dose: 3 ml Documented By: JOSH Tacrolimus (Tacrolimus 1 Mg Capsule) 4 mg PO BID [facility] Last Admin: 01/22/23 08:02 Dose: 4 mg Documented By: JOSH Valsartan (Valsartan 40 Mg Tablet) 40 mg PO DAILY [facility]; Protocol Last Admin: 01/22/23 08:02 Dose: 40 mg Documented By: JOSH Labs 01/17/23 08:35 01/20/23 05:35 Microbiology Microbiology Results: Microbiology 01/19/23 05:33 Blood Culture - Preliminary Blood - Venous No growth after 48 hours. 01/19/23 05:34 Blood Culture - Preliminary Blood - Venous No growth after 48 hours. Procedures Date of Service Date of Service: 01/22/23 Progress Note: A&P Assessment and plan (1) Osteomyelitis of third toe of left foot: Status: Acute Plan S/p amputation of the left 3rd toe. He tolerated procedure well the wounds are healing nicely. Continue daily dressing changes with dry sterile dressings. He should avoid ambulation as much as possible. Recommended keeping his legs elevated as much as possible as well. He should follow up in the office in 1 week for wound examination if discharged. Time Spent With Patient Time: Total time managing care of this patient today ____ minutes. Quality Stroke Does the patient have a stroke diagnosis?: No VTE Prior VTE?: No VTE Risk Level:: Medical - moderate - high VTE Device Contraindication: Treatment Not Indicated VTE Drug Contraindication: N/A - Med Ordered
--- NOTE | 2023-01-22 10:48 | PM.PNNEP ---
Subjective Subjective Date of Service: 01/22/23 Interval history: Events noted. Doing well from a renal standpoint Physical Exam Vital Signs: Vital Signs: Last Vital Signs Temp 98.0 F 01/22/23 07:28 Pulse 71 01/22/23 07:28 Resp 18 01/22/23 07:28 BP 109/70 01/22/23 07:28 Pulse Ox 95 01/22/23 07:28 O2 Del Method Room Air 01/22/23 07:28 BMI result Body Mass Index 29.2 Const: Orientation/consciousness: patient oriented x3 Resp: Effort & Inspection: normal respiratory effort, no audible wheezes, no cough and no respiratory distress Cardio: Jugular venous distension: no JVD Neuro: General: patient oriented x3 Extrem: General: Yes no clubbing, cyanosis or edema Objective Data Labs 01/17/23 08:35 01/20/23 05:35 Microbiology Microbiology Results: Microbiology 01/19/23 05:33 Blood - Venous Blood Culture - Preliminary No growth after 48 hours. 01/19/23 05:34 Blood - Venous Blood Culture - Preliminary No growth after 48 hours. 01/16/23 02:54 Blood - Venous Blood Culture - Final Staphylococcus aureus 01/15/23 23:09 Blood - Venous Blood Culture - Final Staphylococcus aureus Procedures Date of Service Date of Service: 01/22/23 Assessment & Plan Assessment and plan (1) Osteomyelitis of third toe of left foot: Status: Acute (2) Renal transplant recipient: Status: Acute Plan 52-year-old man with ESRD s/p DDKT 10/22/2016 with bL Cr 1.6-1.7mg/dL who presents for left third toe infection with OM on MRI. He has just finished in November six weeks IV Ertapenem for infection around area of right fourth toe. He has had right fourth toe removal 10/2022. 1. ESRD s/p DDKT CKD of allograft with BL Cr 1.6-1.7mg/dL immunosuppressed with Tac 4mg BID and Myfortic 540 BID Cr better REchceck tomorrow PLan: - c/w Tac 4mg dosed 7aM and 7PM - check Tac as needed (Goal 6-8) - c/w Myfortic 540mg BID - Abx per ID. Monitor vanco trough. -Keep I > O Time Spent With Patient Time: Total time managing care of this patient today ____ minutes. Progress Note: Quality Stroke Does the patient have a stroke diagnosis?: No
[2023-01-22 11:00] VITALS: BP 131/65; PULSE 61; RESP 15; TEMP 36.4; O2SAT 95
--- NOTE | 2023-01-22 12:07 | P.PNIM_ITS ---
Subjective Subjective Date of Service: 01/22/23 Interval History: Being followed for left 3rd toe osteomyelitis status post amputation and MSSA bacteremia, denies fever, no chills, no headache, no lightheadedness or dizziness, good pain control no other acute issues overnight tolerating diet no nausea no vomiting no abdominal pain. Review of Systems All other system reviewed and negative. Physical Exam Vital Signs: Vital Signs: Last Vital Signs Temp 97.5 F 01/22/23 11:00 Pulse 61 01/22/23 11:00 Resp 15 01/22/23 11:00 BP 131/65 01/22/23 11:00 Pulse Ox 95 01/22/23 11:00 O2 Del Method Room Air 01/22/23 11:00 BMI result Body Mass Index 29.2 Const: Other: Gen:? Awake alert, resting comfortably, in no acute distress HEENT: sclera anicteric, moist mucus membranes Neck: supple Lungs: clear to auscultation bilaterally Heart: regular rate and rhythm, no murmurs Abd: soft, non-tender, non-distended Ext: no edema.? R foot s/p 4th toe amputation.? L foot? dressing in place after 3rd toe amputation, no drainage. Skin: warm/well-perfused Neuro: alert and oriented x3, no focal findings. Psych: appropriate affect Objective Data Active Medications Acetaminophen (Acetaminophen 325 Mg Tablet) 650 mg PO Q6H PRN PRN Reason: Pain, Mild (Pain Scale 1-3) Amlodipine Besylate (Amlodipine Besylate 5 Mg Tablet) 5 mg PO DAILY [facility]; Protocol Last Admin: 01/22/23 08:02 Dose: 5 mg Documented By: JOSH Atorvastatin Calcium (Atorvastatin Calcium 40 Mg Tablet) 40 mg PO BEDTIME [facility] Last Admin: 01/21/23 20:15 Dose: 40 mg Documented By: GASTON Dextrose (Dextrose 50 % 25 Gm/50 Ml Syringe) 25 gm IVPUSH Q15M PRN; Protocol PRN Reason: per Hypoglycemia Standing Ord. Glucose (Glucose Gel 15 Gm Gel..Gram.) 15 gm PO Q15M PRN; Protocol PRN Reason: per Hypoglycemia Standing Ord. Cefazolin Sodium/Dextrose (Ancef) 2 gm in 50 mls @ 100 mls/hr IV Q8H [facility] Last Infusion: 01/22/23 11:13 Dose: 0 mls/hr Documented By: JOSH Insulin Glargine (Insulin Glargine,Hum.Rec.Anlog 100 Unit/Ml 10 Ml Vial) 21 unit SUBCUT BEDTIME [facility] Last Admin: 01/21/23 20:23 Dose: Not Given Documented By: GASTON Non-Admin Reason: Patient Refused Insulin Human Lispro (Insulin Lispro 100 Unit/Ml 3 Ml Vial) 0 unit SUBCUT QIDACHS [facility]; Protocol Last Admin: 01/22/23 11:20 Dose: 4 unit Documented By: JOSH Melatonin (Melatonin 3 Mg Tablet) 6 mg PO BEDTIME PRN PRN Reason: Insomnia Mirtazapine (Mirtazapine 7.5 Mg Tablet) 7.5 mg PO BEDTIME [facility] Last Admin: 01/21/23 20:16 Dose: 7.5 mg Documented By: GASTON Mycophenolate Sodium (Mycophenolate Sodium 180 Mg Tablet.Dr) 540 mg PO BID [facility] Last Admin: 01/22/23 08:02 Dose: 540 mg Documented By: JOSH Non-Formulary Medication (Calcifediol [Rayaldee]) 30 mcg PO BEDTIME [facility] Ondansetron HCl (Ondansetron Hcl 4 Mg/2 Ml Vial) 4 mg IVPUSH Q8H PRN PRN Reason: Nausea and Vomiting Oxycodone HCl (Oxycodone Hcl Immed Release 5 Mg Tablet) 5 mg PO Q6H PRN PRN Reason: Pain, Moderate(Pain Scale 4-6) Pharmacy Consult (Consult Rx Perform Med Rec) 1 each MISCELLANE ONCE PRN PRN Reason: Consult order Sodium Chloride (0.9 % Sodium Chloride Flush 3 Ml Syringe) 3 ml IVFLUSH QSHIFT [facility] Last Admin: 01/22/23 07:21 Dose: 3 ml Documented By: JOSH Tacrolimus (Tacrolimus 1 Mg Capsule) 4 mg PO BID [facility] Last Admin: 01/22/23 08:02 Dose: 4 mg Documented By: JOSH Valsartan (Valsartan 40 Mg Tablet) 40 mg PO DAILY [facility]; Protocol Last Admin: 01/22/23 08:02 Dose: 40 mg Documented By: JOSH Labs 01/17/23 08:35 01/20/23 05:35 Assessment and Plan (1) Osteomyelitis: Status: Inactive (2) Wound of right foot: Status: Inactive Plan 52yo M with PAD s/p R 4th toe amputation, CKD4 s/p renal transplant, DM1, hx stage 3 testicular CA, HTN, HLD, admitted for infection of L 3rd toe and found to have osteomyelitis nonhealing DM ulcer of L 3rd toe with osteomyelitis and MSSA bacteremia - on IV cefazolin , status post vanco + cefepime x 3d - BCx 01/19 negative times 48 hours, alston cath will be placed at a.m. Eliquis held for 48 hours 12/19 , NPO after midnight - TTE showed no regional wall motion abnormalities, abnormal diastolic function, EF 60-65% no valvular disease, id recommend 4 weeks of IV cefazolin after 1st negative blood culture 01/21 end date 02/18 - good pain control DC IV Dilaudid continue as needed oxycodone - underwent left 3rd toe amputation 01/[address] Allen, continue dressing changes as per General surgery CKD4 renal transplant - continue MMF + tacrolimus,level 8.9 within therapeutic range - SCr at baseline, continue calcifediol -being followed by Nephrology , check labs at a.m. HTN - stable BP, continue amlodipine + valsartan paroxysmal AF - hold Eliquis for Alston catheter placement, resume after procedure HLD - continue statin mood disorder - continue mirtazapine DM1 - A1c 7, 11/26/22, stable blood sugars 108 - continue basal-and bolus insulin VTE ppx - apixaban on hold, on compression boots dispo - anticipate eventual home with [facility]NA In my clinical judgment, the patient requires continued inpatient hospitalization for the following reasons: IV ABX, bacteremia, waiting for Alston catheter placement. Time Spent With Patient Time: Total time managing care of this patient today ____ minutes. Quality Stroke Does the patient have a stroke diagnosis?: No VTE Prior VTE?: No VTE Risk Level:: Medical - moderate - high VTE Device Contraindication: Treatment Not Indicated VTE Drug Contraindication: N/A - Med Ordered
[2023-01-22 15:00] VITALS: BP 138/68; PULSE 90; RESP 20; TEMP 36.8; O2SAT 97
[2023-01-22 19:48] VITALS: BP 136/85; PULSE 91; RESP 20; TEMP 36.1; O2SAT 99
[2023-01-22] MEDS: Mirtazapine 7.5 MG TABLET PO (21:54)
[2023-01-22] MEDS: Atorvastatin Calcium 40 MG TABLET PO (21:54)
[2023-01-22] MEDS: Insulin Glargine,Hum.rec.anlog 100 UNIT/ML 10 ML VIAL 21 UNIT SUBCUT (22:07)
[2023-01-23] MEDS: ceFAZolin Sodium/Dextrose,Iso 2 GM/50 ML PIGGYBACK IV ×3 (02:25→23:41)
[2023-01-23 03:39] VITALS: BP 120/63; PULSE 69; RESP 17; TEMP 36.5; O2SAT 96
[2023-01-23 07:57] VITALS: BP 130/72; PULSE 68; RESP 15; TEMP 36.9; O2SAT 94
[2023-01-23] MEDS: 0.9 % Sodium Chloride Flush 3 ML SYRINGE IVFLUSH ×3 (08:01→19:56)
[2023-01-23] MEDS: Mycophenolate Sodium 180 MG TABLET.DR 540 MG PO ×2 (08:01→20:00)
[2023-01-23] MEDS: Tacrolimus 1 MG CAPSULE 4 MG PO ×2 (08:02→19:59)
[2023-01-23] MEDS: Valsartan 40 MG TABLET PO (08:02)
[2023-01-23] MEDS: amLODIPine Besylate 5 MG TABLET PO (08:02)
[2023-01-23 12:24] LABS: INTERNATIONAL NORM RATIO 1.3 (0.9-1.1); Prothrombin Time 15.5 SEC (11.1-13.3)
[2023-01-23 12:27] LABS: Partial Thromboplastin Time 36.7 SEC (26.0-36.4)
--- NOTE | 2023-01-23 12:51 | MHC.CM.PN ---
Addendum entered by Kiarra Billingsley 01/23/23 16:37: Procedure to insert Alston was not successful. The plan is PICC line Thursday. [facility] and [facility] have been notified of the delay in discharge. DP Thursday home for infusion patient will arrange transportation. Original Note: Patient with MSSA Bacteremia and Osteo is receiving his Alston now. [facility] and [facility] have been notified of possible discharge today. Flush orders have been sent to [facility]. Kefzol 2GM Q8H is ordered, 6 weeks duration. End date will be 03/02/23. Transport home will be arranged by the patient.
--- NOTE | 2023-01-23 13:18 | PC.NURSE ---
Addendum entered by Elena Dietz RN 01/23/23 13:31: dexcom reader brought to [facility], POC 158. Dr. Collins and Dr. Haney aware. Original Note: patient in preop waiting for leach placement. procedure delayed waiting for PT INR lab results. patient becoming frustrated and angry of delay, stating he is diabetic and wants to eat and not wait any longer. IR RN contacted. patient also states has headache and knows his sugar is low, refusing new POC to be done. [employer] to Sunny Razo RN on unit and informed patient has dexcom reader. Dr. Haney also notified. Dr. Collins and Celeste Clark RN at bedside with patient. Juilenne Medina, applied research director aware of situation.
[2023-01-23 14:42] VITALS: BP 141/78; PULSE 80; RESP 18; TEMP 36.1; O2SAT 98
--- NOTE | 2023-01-23 17:22 | PM.PNNEP ---
Subjective Subjective Date of Service: 01/23/23 Interval history: Immunosuppressed pt with renal allograft now s/p toe amputation for osteo and associated MSSA bacteremia. Will need 4-6 week antibiotics per ID. Creat up slightly. On tacro and MMf Physical Exam Vital Signs: Vital Signs: Last Vital Signs Temp 96.9 F 01/23/23 14:42 Pulse 80 01/23/23 14:42 Resp 18 01/23/23 14:42 BP 141/78 H 01/23/23 14:42 Pulse Ox 98 01/23/23 14:42 O2 Del Method Room Air 01/23/23 14:42 BMI result Body Mass Index 29.2 Const: Other: Gen:? Awake alert, resting comfortably, in no acute distress HEENT: sclera anicteric, moist mucus membranes Neck: supple Lungs: clear to auscultation bilaterally Heart: regular rate and rhythm, no murmurs Abd: soft, non-tender, non-distended Ext: no edema.? R foot s/p 4th toe amputation.? L foot? dressing in place after 3rd toe amputation, no drainage. Skin: warm/well-perfused Neuro: alert and oriented x3, no focal findings. Psych: appropriate affect General: cooperative and no acute distress Nutritional Appearance: well nourished Orientation/consciousness: patient oriented x3 Limitations: no limitations HEENT: Head: Yes normocephalic and Yes atraumatic Ears: hearing grossly normal bilaterally Resp: Effort & Inspection: normal respiratory effort, no audible wheezes, no cough and no respiratory distress Cardio: Jugular venous distension: no JVD Rate: regular rate Rhythm: regular rhythm GI: Inspection: Yes normal to inspection Skin: Other: Warm, dry, no rash General skin exam: no rashes or lesions noted Neuro: General: patient oriented x3 Extrem: Other: dressings changed to left foot. Incisions are clean and intact, no erythema discharge noted. Healing nicely. General: Yes no clubbing, cyanosis or edema Objective Data Labs 01/17/23 08:35 01/20/23 05:35 Labs: Laboratory Results - last 24 hr 01/23/23 01/23/23 12:13 12:13 PT 15.5 H INR 1.3 H APTT 36.7 H Microbiology Microbiology Results: Microbiology 01/19/23 05:33 Blood - Venous Blood Culture - Preliminary No growth after 48 hours. 01/19/23 05:34 Blood - Venous Blood Culture - Preliminary No growth after 48 hours. 01/16/23 02:54 Blood - Venous Blood Culture - Final Staphylococcus aureus 01/15/23 23:09 Blood - Venous Blood Culture - Final Staphylococcus aureus Procedures Date of Service Date of Service: 01/23/23 Assessment & Plan Assessment and plan (1) Acute kidney injury: Status: Acute Assessment and Plan: Could be due to mild septic ATN, nonoliguric Would recheck tacro level in am to ensure not too high check bladder scan to rule out any outflow issues, urinary retention given prior hx of same (2) MSSA bacteremia: Status: Acute Assessment and Plan: n this setting, we could consider holding MMf a week or so; i will review his PRA and prior history first (3) Urinary retention with incomplete bladder emptying: Status: Acute (4) Type 2 diabetes mellitus with hyperglycemia, with long-term current use of insulin: Status: Acute (5) Kidney transplant recipient: Status: Chronic Plan Check tacrolimus level trough in am Bladder scan Time Spent With Patient Time: Total time managing care of this patient today ____ minutes. Progress Note: Quality Stroke Does the patient have a stroke diagnosis?: No
--- NOTE | 2023-01-23 17:31 | HO.PM.IMPN ---
Subjective Subjective Date of Service: 01/23/23 Interval History: No acute issues overnight. IR attempted Alston however due to past instrumentation could not done secondary to blockages Review of Systems Denies chest pain Denies shortness of breath Denies nausea vomiting diarrhea Denies fever chills Physical Exam Vital Signs: Vital Signs: Last Vital Signs Temp 96.9 F 01/23/23 14:42 Pulse 80 01/23/23 14:42 Resp 18 01/23/23 14:42 BP 141/78 H 01/23/23 14:42 Pulse Ox 98 01/23/23 14:42 O2 Del Method Room Air 01/23/23 14:42 BMI result Body Mass Index 29.2 Const: Other: Awake alert no acute distress Resp: Other: Clear to auscultation bilaterally no rales rhonchi or wheezes Cardio: Other: No S4; positive S1-S2; no S3 murmurs rubs or gallops GI: Other: Soft nontender nondistended normoactive bowel sounds Extrem: Other: No edema bilaterally Objective Data Active Medications Acetaminophen (Acetaminophen 325 Mg Tablet) 650 mg PO Q6H PRN PRN Reason: Pain, Mild (Pain Scale 1-3) Amlodipine Besylate (Amlodipine Besylate 5 Mg Tablet) 5 mg PO DAILY [facility]; Protocol Last Admin: 01/23/23 08:02 Dose: 5 mg Documented By: JOSH Atorvastatin Calcium (Atorvastatin Calcium 40 Mg Tablet) 40 mg PO BEDTIME [facility] Last Admin: 01/22/23 21:54 Dose: 40 mg Documented By: A[place]IN Dextrose (Dextrose 50 % 25 Gm/50 Ml Syringe) 25 gm IVPUSH Q15M PRN; Protocol PRN Reason: per Hypoglycemia Standing Ord. Glucose (Glucose Gel 15 Gm Gel..Gram.) 15 gm PO Q15M PRN; Protocol PRN Reason: per Hypoglycemia Standing Ord. Cefazolin Sodium/Dextrose (Ancef) 2 gm in 50 mls @ 100 mls/hr IV Q8H [facility] Last Infusion: 01/23/23 16:03 Dose: 0 mls/hr Documented By: JOSH Insulin Glargine (Insulin Glargine,Hum.Rec.Anlog 100 Unit/Ml 10 Ml Vial) 21 unit SUBCUT BEDTIME [facility] Last Admin: 01/22/23 22:07 Dose: 21 unit Documented By: A[place]IN Comments: pt's blood sugar is 229 Insulin Human Lispro (Insulin Lispro 100 Unit/Ml 3 Ml Vial) 0 unit SUBCUT QIDACHS [facility]; Protocol Last Admin: 01/23/23 16:01 Dose: Not Given Documented By: JOSH Non-Admin Reason: No Insulin Coverage Melatonin (Melatonin 3 Mg Tablet) 6 mg PO BEDTIME PRN PRN Reason: Insomnia Mirtazapine (Mirtazapine 7.5 Mg Tablet) 7.5 mg PO BEDTIME [facility] Last Admin: 01/22/23 21:54 Dose: 7.5 mg Documented By: [place] Mycophenolate Sodium (Mycophenolate Sodium 180 Mg Tablet.) 540 mg PO BID [facility] Last Admin: 01/23/23 08:01 Dose: 540 mg Documented By: JOSH Non-Formulary Medication (Calcifediol [Rayaldee]) 30 mcg PO BEDTIME [facility] Ondansetron HCl (Ondansetron Hcl 4 Mg/2 Ml Vial) 4 mg IVPUSH Q8H PRN PRN Reason: Nausea and Vomiting Oxycodone HCl (Oxycodone Hcl Immed Release 5 Mg Tablet) 5 mg PO Q6H PRN PRN Reason: Pain, Moderate(Pain Scale 4-6) Pharmacy Consult (Consult Rx Perform Med Rec) 1 each MISCELLANE ONCE PRN PRN Reason: Consult order Sodium Chloride (0.9 % Sodium Chloride Flush 3 Ml Syringe) 3 ml IVFLUSH QSHIFT [facility] Last Admin: 01/23/23 16:01 Dose: 3 ml Documented By: JOSH Tacrolimus (Tacrolimus 1 Mg Capsule) 4 mg PO BID [facility] Last Admin: 01/23/23 08:02 Dose: 4 mg Documented By: JOSH Valsartan (Valsartan 40 Mg Tablet) 40 mg PO DAILY [facility]; Protocol Last Admin: 01/23/23 08:02 Dose: 40 mg Documented By: JOSH Labs 01/17/23 08:35 01/20/23 05:35 Labs: Laboratory Results - last 24 hr 01/23/23 01/23/23 12:13 12:13 PT 15.5 H INR 1.3 H APTT 36.7 H Assessment and Plan (1) MSSA bacteremia: Status: Acute (2) Type 2 diabetes mellitus with hyperglycemia, with long-term current use of insulin: Status: Acute (3) Renal transplant recipient: Status: Acute Plan 52yo M with PAD s/p R 4th toe amputation, CKD4 s/p renal transplant, DM1, hx stage 3 testicular CA, HTN, HLD, admitted for infection of L 3rd toe and found to have osteomyelitis; blood cultures ultimately grew out MSSA 1.MSSA bacteremia -IR attempted Alston; unable to proceed secondary to blockages -discussed with Renal; okay to use right upper extremity for PICC line -discussed with IR; will place 01/26 -will need 4 weeks of Ancef -for vanco/cefepime (3); Ancef (2) 2.DM ulcer of L 3rd toe with osteomyelitis -underwent 3rd toe amputation 8 7 without issue -antibiotics as above 3.CKD4 -creatinine at baseline -appreciate renal recommendations -follow renals/divalents 4.HTN -acceptable control on current therapies -adjust as indicated 5.Paroxysmal AF - hold Eliquis for PICC on 01/26 -resume when complete 6.DM1 - acceptable control on current therapies -lispro correctional scale -okay for regular diet (patient adamant that will not stay if he continues diabetic diet. . . Needs PICC therefore will titrate therapies to regular diet) Full code Boots dispo - anticipate eventual home with [facility]NA In my clinical judgment, the patient requires continued inpatient hospitalization for the following reasons: IV ABX, bacteremia, awaiting PICC Time Spent With Patient Time: Total time managing care of this patient today ____ minutes. Quality Stroke Does the patient have a stroke diagnosis?: No VTE Prior VTE?: No VTE Risk Level:: Medical - moderate - high VTE Device Contraindication: Treatment Not Indicated VTE Drug Contraindication: N/A - Med Ordered
[2023-01-23] MEDS: Atorvastatin Calcium 40 MG TABLET PO (19:59)
[2023-01-23] MEDS: Mirtazapine 7.5 MG TABLET PO (19:59)
[2023-01-23 20:00] VITALS: BP 136/72; PULSE 68; RESP 18; TEMP 36.3; O2SAT 98
[2023-01-23] MEDS: Insulin Lispro 100 UNIT/ML 3 ML VIAL SUBCUT (21:21)
[2023-01-23] MEDS: Insulin Glargine,Hum.rec.anlog 100 UNIT/ML 10 ML VIAL 21 UNIT SUBCUT (21:22)
[2023-01-24 03:23] VITALS: BP 127/65; PULSE 71; RESP 18; TEMP 35.9; O2SAT 97
[2023-01-24 05:31] LABS: MANUAL DIFF FLAG NO
[2023-01-24 05:37] LABS: Basophils Absolute Auto 0.1 X10*3/uL (0.0-0.2); Basophils Percent Auto 0.6 % (0-2); Eosinophils Absolute Auto 0.2 X10*3/uL (0.0-0.4); Eosinophils Percent Auto 2.3 % (0-4); Hematocrit 46.5 % (42.0-52.0); Hemoglobin 15.1 g/dl (14.0-18.0); Imm Gran Abs Auto 0.23 X10*3/uL (0.00-0.03); Imm Gran Pct Auto 2.8 % (0.0-0.4); Lymphocytes Absolute Auto 1.6 X10*3/uL (1.2-4.9); Lymphocytes Percent Auto 19.3 % (20-40); Mean Corpuscular HGB Conc 32.5 g/dl (31.0-36.0); Mean Corpuscular Hemoglobin 29.7 pg (27.0-33.0); Mean Corpuscular Volume 91.4 fL (80.0-98.0); Monocytes Percent Auto 11.9 % (2-11); Neutrophils Absolute Auto 5.2 x10*3/uL (2.0-8.3); Neutrophils Percent Auto 63.1 % (45-73); Platelet Count 228 X10*3/uL (160-400); Red Blood Count 5.09 X10*6/uL (4.60-5.80); Red Cell Distribution Width 12.9 % (11.0-16.0); White Blood Count 8.2 X10*3/uL (4.8-10.8)
[2023-01-24 05:53] LABS: Alanine Aminotransferase < 5 U/L (0-40); Albumin Level 3.9 g/dL (3.5-5.0); Alkaline Phosphatase 88 U/L (39-117); Anion Gap 13 (12-20); Aspartate Amino Transferase 10 U/L (5-37); Bilirubin Total 0.3 mg/dL (0.0-1.0); Blood Urea Nitrogen 19 mg/dL (9-16); Calcium 9.5 mg/dL (8.4-10.2); Carbon Dioxide 23 mmol/L (22-29); Chloride 107 mmol/L (96-108); Creatinine Clr Calc Pharmacy 68.1; Estimated Glomerular Filt Rate 53; Glucose Fasting 127 mg/dL (60-99); Potassium 4.2 mmol/L (3.3-5.1); Sodium 139 mmol/L (135-145); Total Protein 7.3 g/dL (6.5-8.0)
[2023-01-24 07:55] VITALS: BP 130/75; PULSE 74; RESP 18; TEMP 36.3; O2SAT 97
[2023-01-24] MEDS: 0.9 % Sodium Chloride Flush 3 ML SYRINGE IVFLUSH ×3 (07:57→20:51)
[2023-01-24] MEDS: Insulin Lispro 100 UNIT/ML 3 ML VIAL SUBCUT ×3 (07:57→20:51)
[2023-01-24] MEDS: Mycophenolate Sodium 180 MG TABLET.DR 540 MG PO ×2 (07:58→20:50)
[2023-01-24] MEDS: ceFAZolin Sodium/Dextrose,Iso 2 GM/50 ML PIGGYBACK IV ×3 (07:58→23:39)
[2023-01-24] MEDS: Valsartan 40 MG TABLET PO (07:58)
[2023-01-24] MEDS: oxyCODONE HCl Immed Release 5 MG TABLET PO ×3 (07:59→20:50)
[2023-01-24] MEDS: Tacrolimus 1 MG CAPSULE 4 MG PO ×2 (07:59→20:49)
[2023-01-24] MEDS: amLODIPine Besylate 5 MG TABLET PO (07:59)
--- NOTE | 2023-01-24 14:06 | P.PNIM_ITS ---
Subjective Subjective Date of Service: 01/24/23 Interval History: Doing well postoperatively. Pain control adequate Review of Systems Denies chest pain Denies shortness of breath Denies nausea vomiting diarrhea Denies fever chills Physical Exam Vital Signs: Vital Signs: Last Vital Signs Temp 97.3 F 01/24/23 07:55 Pulse 74 01/24/23 07:55 Resp 18 01/24/23 07:55 BP 130/75 01/24/23 07:55 Pulse Ox 97 01/24/23 07:55 O2 Del Method Room Air 01/24/23 07:55 BMI result Body Mass Index 29.2 Const: Other: Awake alert no acute distress Resp: Other: Clear to auscultation bilaterally no rales rhonchi or wheezes Cardio: Other: No S4; positive S1-S2; no S3 murmurs rubs or gallops GI: Other: Soft nontender nondistended normoactive bowel sounds Extrem: Other: No edema bilaterally Objective Data Active Medications Acetaminophen (Acetaminophen 325 Mg Tablet) 650 mg PO Q6H PRN PRN Reason: Pain, Mild (Pain Scale 1-3) Amlodipine Besylate (Amlodipine Besylate 5 Mg Tablet) 5 mg PO DAILY VERNA; Protocol Last Admin: 01/24/23 07:59 Dose: 5 mg Documented By: CAMPOS Atorvastatin Calcium (Atorvastatin Calcium 40 Mg Tablet) 40 mg PO BEDTIME [facility]NA Last Admin: 01/23/23 19:59 Dose: 40 mg Documented By: KAL Dextrose (Dextrose 50 % 25 Gm/50 Ml Syringe) 25 gm IVPUSH Q15M PRN; Protocol PRN Reason: per Hypoglycemia Standing Ord. Glucose (Glucose Gel 15 Gm Gel..Gram.) 15 gm PO Q15M PRN; Protocol PRN Reason: per Hypoglycemia Standing Ord. Cefazolin Sodium/Dextrose (Ancef) 2 gm in 50 mls @ 100 mls/hr IV Q8H [facility] Last Infusion: 01/24/23 08:43 Dose: 0 mls/hr Documented By: CAMPOS Insulin Glargine (Insulin Glargine,Hum.Rec.Anlog 100 Unit/Ml 10 Ml Vial) 21 unit SUBCUT BEDTIME [facility] Last Admin: 01/23/23 21:22 Dose: 21 unit Documented By: KAL Insulin Human Lispro (Insulin Lispro 100 Unit/Ml 3 Ml Vial) 0 unit SUBCUT QIDACHS [facility]; Protocol Last Admin: 01/24/23 11:57 Dose: 2 unit Documented By: CAMPOS Comments: MD Haney Ok'd to use patients own glucometer Melatonin (Melatonin 3 Mg Tablet) 6 mg PO BEDTIME PRN PRN Reason: Insomnia Mirtazapine (Mirtazapine 7.5 Mg Tablet) 7.5 mg PO BEDTIME [facility] Last Admin: 01/23/23 19:59 Dose: 7.5 mg Documented By: KAL Mycophenolate Sodium (Mycophenolate Sodium 180 Mg Tablet.) 540 mg PO BID [facility] Last Admin: 01/24/23 07:58 Dose: 540 mg Documented By: CAMPOS Non-Formulary Medication (Calcifediol [Rayaldee]) 30 mcg PO BEDTIME [facility] Ondansetron HCl (Ondansetron Hcl 4 Mg/2 Ml Vial) 4 mg IVPUSH Q8H PRN PRN Reason: Nausea and Vomiting Pharmacy Consult (Consult Rx Perform Med Rec) 1 each MISCELLANE ONCE PRN PRN Reason: Consult order Sodium Chloride (0.9 % Sodium Chloride Flush 3 Ml Syringe) 3 ml IVFLUSH QSHIFT [facility] Last Admin: 01/24/23 07:57 Dose: 3 ml Documented By: CAMPOS Tacrolimus (Tacrolimus 1 Mg Capsule) 4 mg PO BID [facility] Last Admin: 01/24/23 07:59 Dose: 4 mg Documented By: CAMPOS Valsartan (Valsartan 40 Mg Tablet) 40 mg PO DAILY [facility]; Protocol Last Admin: 01/24/23 07:58 Dose: 40 mg Documented By: CAMPOS Labs 01/24/23 05:25 01/24/23 05:25 Labs: Laboratory Results - last 24 hr 01/24/23 01/24/23 01/24/23 05:25 05:25 05:25 MCV 91.4 MCH 29.7 MCHC 32.5 RDW 12.9 Plt Count 228 D MPV 11.0 Immature Gran % (Auto) 2.8 H Neut % (Auto) 63.1 Lymph % (Auto) 19.3 L [place] % (Auto) 11.9 H Eos % (Auto) 2.3 Baso % (Auto) 0.6 Lymph # (Auto) 1.6 [place] # (Auto) 1.0 Eos # (Auto) 0.2 Baso # (Auto) 0.1 Abs Immat Gran (auto) 0.23 H Absolute Neuts (auto) 5.2 Absolute Nucleated RBC 0.000 Nucleated RBC % (auto) 0.0 Anion Gap 13 Estim Creat Clear Calc 68.1 Estimated GFR 53 Fasting Glucose 127 H Calcium 9.5 Total Bilirubin 0.3 AST 10 ALT < 5 Alkaline Phosphatase 88 Total Protein 7.3 Albumin 3.9 Tacrolimus 11.0 Microbiology Microbiology Results: Microbiology 01/19/23 05:33 Blood Culture - Final Blood - Venous No growth after 5 days. 01/19/23 05:34 Blood Culture - Final Blood - Venous No growth after 5 days. Assessment and Plan (1) MSSA bacteremia: Status: Acute (2) Type 2 diabetes mellitus with hyperglycemia, with long-term current use of insulin: Status: Acute (3) Renal transplant recipient: Status: Acute Plan 52yo M with PAD s/p R 4th toe amputation, CKD4 s/p renal transplant, DM1, hx stage 3 testicular CA, HTN, HLD, admitted for infection of L 3rd toe and found to have osteomyelitis; blood cultures ultimately grew out MSSA 1.MSSA bacteremia -discussed with IR; PICC will be placed 01/26 -will need 4 weeks of Ancef -for vanco/cefepime (3); Ancef (3) 2.DM ulcer of L 3rd toe with osteomyelitis -underwent 3rd toe amputation 8 7 without issue -antibiotics as above 3.CKD4 -creatinine at baseline -appreciate renal recommendations -follow renals/divalents 4.HTN -acceptable control on current therapies -adjust as indicated 5.Paroxysmal AF - hold Eliquis for PICC on 01/26 -resume when complete 6.DM1 - acceptable control on current therapies (on regular diet) -lispro correctional scale -okay for regular diet (patient adamant that will not stay if he continues diabetic diet. . . Needs PICC therefore will titrate therapies to regular diet) Full code Boots dispo - anticipate eventual home with VNA In my clinical judgment, the patient requires continued inpatient hospitalization for the following reasons: IV ABX, bacteremia, awaiting PICC Time Spent With Patient Time: Total time managing care of this patient today ____ minutes. Quality Stroke Does the patient have a stroke diagnosis?: No VTE Prior VTE?: No VTE Risk Level:: Medical - moderate - high VTE Device Contraindication: Treatment Not Indicated VTE Drug Contraindication: N/A - Med Ordered
--- NOTE | 2023-01-24 14:19 | PC.NURSE ---
MD Haney aware pt is refusing POC glucose finger stick checks from staff and instead using own glucometer sensor from home. Pt states the finger sticks cause his neuropathy to worsen. Spoke with about adding a MD to RN order for ok to use pts own blood sugar sensor .
--- NOTE | 2023-01-24 15:01 | P.PNNP_ITS ---
Subjective Subjective Date of Service: 01/24/23 Interval history: Doing well Creat down today [place] 11 which is a bit high For PICC on Thursday Physical Exam Vital Signs: Vital Signs: Last Vital Signs Temp 97.3 F 01/24/23 07:55 Pulse 74 01/24/23 07:55 Resp 18 01/24/23 07:55 BP 130/75 01/24/23 07:55 Pulse Ox 97 01/24/23 07:55 O2 Del Method Room Air 01/24/23 07:55 BMI result Body Mass Index 29.2 Const: Other: Awake alert no acute distress General: cooperative and no acute distress Nutritional Appearance: well nourished Orientation/consciousness: patient oriented x3 Limitations: no limitations HEENT: Head: Yes normocephalic and Yes atraumatic Ears: hearing grossly normal bilaterally Resp: Other: Clear to auscultation bilaterally no rales rhonchi or wheezes Effort & Inspection: normal respiratory effort, no audible wheezes, no cough and no respiratory distress Cardio: Other: No S4; positive S1-S2; no S3 murmurs rubs or gallops Jugular venous distension: no JVD Rate: regular rate Rhythm: regular rhythm GI: Other: Soft nontender nondistended normoactive bowel sounds Inspection: Yes normal to inspection Skin: Other: Warm, dry, no rash General skin exam: no rashes or lesions noted Neuro: General: patient oriented x3 Extrem: Other: No edema bilaterally General: Yes no clubbing, cyanosis or edema Objective Data Labs 01/24/23 05:25 01/24/23 05:25 Labs: Laboratory Results - last 24 hr 01/24/23 01/24/23 01/24/23 05:25 05:25 05:25 WBC 8.2 RBC 5.09 Hgb 15.1 Hct 46.5 MCV 91.4 MCH 29.7 MCHC 32.5 RDW 12.9 Plt Count 228 D MPV 11.0 Immature Gran % (Auto) 2.8 H Neut % (Auto) 63.1 Lymph % (Auto) 19.3 L [place] % (Auto) 11.9 H Eos % (Auto) 2.3 Baso % (Auto) 0.6 Lymph # (Auto) 1.6 [place] # (Auto) 1.0 Eos # (Auto) 0.2 Baso # (Auto) 0.1 Abs Immat Gran (auto) 0.23 H Absolute Neuts (auto) 5.2 Absolute Nucleated RBC 0.000 Nucleated RBC % (auto) 0.0 Sodium 139 Potassium 4.2 Chloride 107 Carbon Dioxide 23 Anion Gap 13 BUN 19 H Creatinine 1.42 H Estim Creat Clear Calc 68.1 Estimated GFR 53 Fasting Glucose 127 H Calcium 9.5 Total Bilirubin 0.3 AST 10 ALT < 5 Alkaline Phosphatase 88 Total Protein 7.3 Albumin 3.9 Tacrolimus 11.0 Microbiology Microbiology Results: Microbiology 01/19/23 05:33 Blood - Venous Blood Culture - Final No growth after 5 days. 01/19/23 05:34 Blood - Venous Blood Culture - Final No growth after 5 days. 01/16/23 02:54 Blood - Venous Blood Culture - Final Staphylococcus aureus 01/15/23 23:09 Blood - Venous Blood Culture - Final Staphylococcus aureus Procedures Date of Service Date of Service: 01/24/23 Assessment & Plan Assessment and plan (1) Acute kidney injury: Status: Acute Assessment and Plan: tac level a bit high: let's reduce dose to 3 mg bid check bladder scans (2) Kidney transplant recipient: Status: Chronic Assessment and Plan: On dual antirejection therapy now with osteomyelitis and high tacro level: r educe tacro dose to 3 mg bid (3) Osteomyelitis of great toe of left foot: Status: Acute Assessment and Plan: Needs PICC due to clotted central veins and unable to place port or leach Time Spent With Patient Time: Total time managing care of this patient today ____ minutes. Progress Note: Quality Stroke Does the patient have a stroke diagnosis?: No
[2023-01-24 16:00] VITALS: BP 134/65; PULSE 80; RESP 18; TEMP 35.8; O2SAT 100
[2023-01-24 19:48] VITALS: BP 123/66; PULSE 80; RESP 18; TEMP 36.4; O2SAT 97
[2023-01-24] MEDS: Atorvastatin Calcium 40 MG TABLET PO (20:50)
[2023-01-24] MEDS: Mirtazapine 7.5 MG TABLET PO (20:50)
[2023-01-24] MEDS: Insulin Glargine,Hum.rec.anlog 100 UNIT/ML 10 ML VIAL 21 UNIT SUBCUT (20:52)
[2023-01-24 21:58] VITALS: RESP 18
[2023-01-25 04:00] VITALS: BP 116/62; PULSE 73; RESP 18; TEMP 36.3; O2SAT 96
[2023-01-25 08:00] VITALS: BP 121/69; PULSE 75; RESP 18; TEMP 36.4; O2SAT 96
[2023-01-25] MEDS: Mycophenolate Sodium 180 MG TABLET.DR 540 MG PO ×2 (08:40→20:21)
[2023-01-25] MEDS: amLODIPine Besylate 5 MG TABLET PO (08:40)
[2023-01-25] MEDS: Valsartan 40 MG TABLET PO (08:40)
[2023-01-25] MEDS: ceFAZolin Sodium/Dextrose,Iso 2 GM/50 ML PIGGYBACK IV ×3 (08:41→23:22)
[2023-01-25] MEDS: oxyCODONE HCl Immed Release 5 MG TABLET PO ×2 (08:48→16:40)
[2023-01-25] MEDS: Tacrolimus 1 MG CAPSULE 4 MG PO ×2 (09:31→20:23)
[2023-01-25] MEDS: Insulin Lispro 100 UNIT/ML 3 ML VIAL SUBCUT ×3 (11:57→20:23)
--- NOTE | 2023-01-25 13:40 | HO.PM.IMPN ---
Subjective Subjective Date of Service: 01/25/23 Interval History: Doing well overall. No acute issues. Waiting for PICC line Review of Systems Denies chest pain Denies shortness of breath Denies nausea vomiting diarrhea Denies fever chills Physical Exam Vital Signs: Vital Signs: Last Vital Signs Temp 97.6 F 01/25/23 08:00 Pulse 75 01/25/23 08:00 Resp 18 01/25/23 08:00 BP 121/69 01/25/23 08:00 Pulse Ox 96 01/25/23 08:00 O2 Del Method Room Air 01/25/23 08:00 BMI result Body Mass Index 29.2 Const: Other: Awake alert no acute distress Resp: Other: Clear to auscultation bilaterally no rales rhonchi or wheezes Cardio: Other: No S4; positive S1-S2; no S3 murmurs rubs or gallops GI: Other: Soft nontender nondistended normoactive bowel sounds Extrem: Other: No edema bilaterally Objective Data Active Medications Acetaminophen (Acetaminophen 325 Mg Tablet) 650 mg PO Q6H PRN PRN Reason: Pain, Mild (Pain Scale 1-3) Amlodipine Besylate (Amlodipine Besylate 5 Mg Tablet) 5 mg PO DAILY [facility]; Protocol Last Admin: 01/25/23 08:40 Dose: 5 mg Documented By: CAMPOS Atorvastatin Calcium (Atorvastatin Calcium 40 Mg Tablet) 40 mg PO BEDTIME [facility] Last Admin: 01/24/23 20:50 Dose: 40 mg Documented By: KAL Dextrose (Dextrose 50 % 25 Gm/50 Ml Syringe) 25 gm IVPUSH Q15M PRN; Protocol PRN Reason: per Hypoglycemia Standing Ord. Glucose (Glucose Gel 15 Gm Gel..Gram.) 15 gm PO Q15M PRN; Protocol PRN Reason: per Hypoglycemia Standing Ord. Cefazolin Sodium/Dextrose (Ancef) 2 gm in 50 mls @ 100 mls/hr IV Q8H [facility] Last Infusion: 01/25/23 09:38 Dose: 0 mls/hr Documented By: CAMPOS Insulin Glargine (Insulin Glargine,Hum.Rec.Anlog 100 Unit/Ml 10 Ml Vial) 21 unit SUBCUT BEDTIME [facility] Last Admin: 01/24/23 20:52 Dose: 21 unit Documented By: KAL Insulin Human Lispro (Insulin Lispro 100 Unit/Ml 3 Ml Vial) 0 unit SUBCUT QIDACHS [facility]; Protocol Last Admin: 01/25/23 11:57 Dose: 2 unit Documented By: CAMPOS Melatonin (Melatonin 3 Mg Tablet) 6 mg PO BEDTIME PRN PRN Reason: Insomnia Mirtazapine (Mirtazapine 7.5 Mg Tablet) 7.5 mg PO BEDTIME [facility] Last Admin: 01/24/23 20:50 Dose: 7.5 mg Documented By: KAL Mycophenolate Sodium (Mycophenolate Sodium 180 Mg Tablet.) 540 mg PO BID [facility] Last Admin: 01/25/23 08:40 Dose: 540 mg Documented By: CAMPOS Pt Own (Calcifediol [Rayaldee] 30 Mcg Capsule,Extended Release 24 Hr) 30 mcg PO BEDTIME [facility] Last Admin: 01/24/23 22:38 Dose: 30 mcg Documented By: KAL Ondansetron HCl (Ondansetron Hcl 4 Mg/2 Ml Vial) 4 mg IVPUSH Q8H PRN PRN Reason: Nausea and Vomiting Oxycodone HCl (Oxycodone Hcl Immed Release 5 Mg Tablet) 5 mg PO Q4H PRN PRN Reason: Pain, Moderate(Pain Scale 4-6) Last Admin: 01/25/23 08:48 Dose: 5 mg Documented By: CAMPOS Pharmacy Consult (Consult Rx Perform Med Rec) 1 each MISCELLANE ONCE PRN PRN Reason: Consult order Sodium Chloride (0.9 % Sodium Chloride Flush 3 Ml Syringe) 3 ml IVFLUSH QSHIFT [facility] Last Admin: 01/25/23 08:50 Dose: Not Given Documented By: CAMPOS Non-Admin Reason: IV Running Tacrolimus (Tacrolimus 1 Mg Capsule) 4 mg PO BID [facility] Last Admin: 01/25/23 09:31 Dose: 4 mg Documented By: CAMPOS Valsartan (Valsartan 40 Mg Tablet) 40 mg PO DAILY [facility]; Protocol Last Admin: 01/25/23 08:40 Dose: 40 mg Documented By: CAMPOS Labs 01/24/23 05:25 01/24/23 05:25 Labs: Laboratory Results - last 24 hr 01/24/23 05:25 Tacrolimus 11.0 Assessment and Plan (1) MSSA bacteremia: Status: Acute (2) Type 2 diabetes mellitus with hyperglycemia, with long-term current use of insulin: Status: Acute Plan 52yo M with PAD s/p R 4th toe amputation, CKD4 s/p renal transplant, DM1, hx stage 3 testicular CA, HTN, HLD, admitted for infection of L 3rd toe and found to have osteomyelitis; blood cultures ultimately grew out MSSA 1.MSSA bacteremia -discussed with IR; PICC will be placed 01/26 -will need 4 weeks of Ancef -for vanco/cefepime (3); Ancef (4) 2.DM ulcer of L 3rd toe with osteomyelitis -underwent 3rd toe amputation 8 7 without issue -antibiotics as above 3.CKD4 -creatinine at baseline -appreciate renal recommendations -follow renals/divalents 4.HTN -acceptable control on current therapies -adjust as indicated 5.Paroxysmal AF - hold Eliquis for PICC on 01/26 -resume when complete 6.DM1 - acceptable control on current therapies (on regular diet) -lispro correctional scale Full code Boots dispo - anticipate eventual home with VNA In my clinical judgment, the patient requires continued inpatient hospitalization for the following reasons: IV ABX, bacteremia, awaiting PICC Time Spent With Patient Time: Total time managing care of this patient today ____ minutes. Quality Stroke Does the patient have a stroke diagnosis?: No VTE Prior VTE?: No VTE Risk Level:: Medical - moderate - high VTE Device Contraindication: Treatment Not Indicated VTE Drug Contraindication: N/A - Med Ordered
[2023-01-25 15:42] VITALS: BP 119/66; PULSE 75; RESP 20; TEMP 36.6; O2SAT 95
[2023-01-25 16:05] LABS: Basophils Percent Auto 0.5 % (0-2); Eosinophils Absolute Auto 0.2 X10*3/uL (0.0-0.4); Eosinophils Percent Auto 1.9 % (0-4); Hematocrit 47.4 % (42.0-52.0); Hemoglobin 15.1 g/dl (14.0-18.0); Imm Gran Abs Auto 0.21 X10*3/uL (0.00-0.03); Imm Gran Pct Auto 2.6 % (0.0-0.4); Lymphocytes Absolute Auto 1.9 X10*3/uL (1.2-4.9); Lymphocytes Percent Auto 23.1 % (20-40); MANUAL DIFF FLAG NO; Mean Corpuscular HGB Conc 31.9 g/dl (31.0-36.0); Mean Corpuscular Hemoglobin 29.6 pg (27.0-33.0); Mean Corpuscular Volume 92.9 fL (80.0-98.0); Mean Platelet Volume 11.2 fL (9.4-12.4); Monocytes Percent Auto 12.1 % (2-11); Neutrophils Absolute Auto 4.9 x10*3/uL (2.0-8.3); Neutrophils Percent Auto 59.8 % (45-73); Platelet Count 240 X10*3/uL (160-400); White Blood Count 8.1 X10*3/uL (4.8-10.8)
[2023-01-25] MEDS: 0.9 % Sodium Chloride Flush 3 ML SYRINGE IVFLUSH ×2 (16:39→20:01)
[2023-01-25 16:41] LABS: Alanine Aminotransferase < 5 U/L (0-40); Alkaline Phosphatase 100 U/L (39-117); Anion Gap 14 (12-20); Aspartate Amino Transferase 10 U/L (5-37); Bilirubin Total 0.3 mg/dL (0.0-1.0); Blood Urea Nitrogen 25 mg/dL (9-16); Calcium 9.6 mg/dL (8.4-10.2); Carbon Dioxide 25 mmol/L (22-29); Chloride 105 mmol/L (96-108); Creatinine Clr Calc Pharmacy 54.7; Estimated Glomerular Filt Rate 41; Glucose Fasting 183 mg/dL (60-99); Potassium 4.5 mmol/L (3.3-5.1); Sodium 139 mmol/L (135-145); Total Protein 7.6 g/dL (6.5-8.0)
[2023-01-25 19:38] VITALS: BP 120/66; PULSE 73; RESP 18; TEMP 36.2; O2SAT 96
[2023-01-25] MEDS: Atorvastatin Calcium 40 MG TABLET PO (20:22)
[2023-01-25] MEDS: Insulin Glargine,Hum.rec.anlog 100 UNIT/ML 10 ML VIAL 21 UNIT SUBCUT (20:23)
[2023-01-25] MEDS: Mirtazapine 7.5 MG TABLET PO (20:23)
[2023-01-26 00:57] VITALS: BP 118/71; PULSE 77; RESP 18; TEMP 36.9; O2SAT 95
[2023-01-26 07:17] VITALS: BP 119/73; PULSE 78; RESP 16; TEMP 36.7; O2SAT 93
[2023-01-26 08:01] LABS: MANUAL DIFF FLAG NO
[2023-01-26] MEDS: Mycophenolate Sodium 180 MG TABLET.DR 540 MG PO ×2 (08:01→21:57)
[2023-01-26] MEDS: 0.9 % Sodium Chloride Flush 3 ML SYRINGE IVFLUSH ×3 (08:01→22:00)
[2023-01-26] MEDS: amLODIPine Besylate 5 MG TABLET PO (08:01)
[2023-01-26] MEDS: Valsartan 40 MG TABLET PO (08:01)
[2023-01-26 08:12] LABS: Basophils Percent Auto 0.5 % (0-2); Eosinophils Absolute Auto 0.1 X10*3/uL (0.0-0.4); Eosinophils Percent Auto 1.6 % (0-4); Hematocrit 45.3 % (42.0-52.0); Hemoglobin 14.8 g/dl (14.0-18.0); Imm Gran Abs Auto 0.21 X10*3/uL (0.00-0.03); Imm Gran Pct Auto 2.4 % (0.0-0.4); Lymphocytes Absolute Auto 1.7 X10*3/uL (1.2-4.9); Mean Corpuscular HGB Conc 32.7 g/dl (31.0-36.0); Mean Corpuscular Hemoglobin 29.6 pg (27.0-33.0); Mean Corpuscular Volume 90.6 fL (80.0-98.0); Mean Platelet Volume 11.3 fL (9.4-12.4); Monocytes Percent Auto 11.8 % (2-11); Neutrophils Absolute Auto 5.5 x10*3/uL (2.0-8.3); Neutrophils Percent Auto 63.7 % (45-73); Platelet Count 230 X10*3/uL (160-400); White Blood Count 8.7 X10*3/uL (4.8-10.8)
[2023-01-26] MEDS: ceFAZolin Sodium/Dextrose,Iso 2 GM/50 ML PIGGYBACK IV ×3 (08:20→23:56)
--- NOTE | 2023-01-26 09:15 | PC.NURSE ---
per phlebotomy, pt refusing all blood draws, Dr. Haney made aware
--- NOTE | 2023-01-26 09:36 | P.PNNP_ITS ---
Subjective Subjective Date of Service: 01/26/23 Interval history: Doing well overall. No acute issues. Waiting for PICC line Physical Exam Vital Signs: Vital Signs: Last Vital Signs Temp 98.1 F 01/26/23 07:17 Pulse 78 01/26/23 07:17 Resp 16 01/26/23 07:17 BP 119/73 01/26/23 07:17 Pulse Ox 93 01/26/23 07:17 O2 Del Method Room Air 01/26/23 07:17 BMI result Body Mass Index 29.2 Const: General: no acute distress Orientation/consciousness: patient oriented x3 Eyes: EOM: EOMs intact bilaterally Neck: Neck: Yes supple Resp: Auscultation: diminished lung sounds Cardio: Rate: regular rate GI: Palpation (GI): Soft to palpation Neuro: General: patient oriented x3 and moves all extremities Objective Data Labs 01/26/23 07:42 01/25/23 15:32 Labs: Laboratory Results - last 24 hr 01/25/23 01/25/23 01/26/23 15:32 15:32 07:42 WBC 8.1 8.7 RBC 5.10 5.00 Hgb 15.1 14.8 Hct 47.4 45.3 MCV 92.9 90.6 MCH 29.6 29.6 MCHC 31.9 32.7 RDW 13.0 13.0 Plt Count 240 230 MPV 11.2 11.3 Immature Gran % (Auto) 2.6 H 2.4 H Neut % (Auto) 59.8 63.7 Lymph % (Auto) 23.1 20.0 [place] % (Auto) 12.1 H 11.8 H Eos % (Auto) 1.9 1.6 Baso % (Auto) 0.5 0.5 Lymph # (Auto) 1.9 1.7 [place] # (Auto) 1.0 1.0 Eos # (Auto) 0.2 0.1 Baso # (Auto) 0.0 0.0 Abs Immat Gran (auto) 0.21 H 0.21 H Absolute Neuts (auto) 4.9 5.5 Absolute Nucleated RBC 0.000 0.000 Nucleated RBC % (auto) 0.0 0.0 Sodium 139 Potassium 4.5 Chloride 105 Carbon Dioxide 25 Anion Gap 14 BUN 25 H Creatinine 1.77 H Estim Creat Clear Calc 54.7 Estimated GFR 41 Fasting Glucose 183 H Calcium 9.6 Total Bilirubin 0.3 AST 10 ALT < 5 Alkaline Phosphatase 100 Total Protein 7.6 Albumin 4.0 Microbiology Microbiology Results: Microbiology 01/19/23 05:33 Blood - Venous Blood Culture - Final No growth after 5 days. 01/19/23 05:34 Blood - Venous Blood Culture - Final No growth after 5 days. 01/16/23 02:54 Blood - Venous Blood Culture - Final Staphylococcus aureus 01/15/23 23:09 Blood - Venous Blood Culture - Final Staphylococcus aureus Procedures Date of Service Date of Service: 01/26/23 Assessment & Plan Assessment and plan (1) Acute kidney injury: Status: Acute Assessment and Plan: Had GIA in a renal transplant Labs from AM awaited Tacrolimus levels had been a bit high Needs to reduce Tacrolimus dose to 3 mg bid OK to have PICC line; C/W rest of current management Progress Note: Quality Stroke Does the patient have a stroke diagnosis?: No
[2023-01-26 10:02] LABS: Alanine Aminotransferase < 5 U/L (0-40); Albumin Level 3.9 g/dL (3.5-5.0); Alkaline Phosphatase 90 U/L (39-117); Anion Gap 13 (12-20); Aspartate Amino Transferase 12 U/L (5-37); Bilirubin Total 0.4 mg/dL (0.0-1.0); Blood Urea Nitrogen 23 mg/dL (9-16); Calcium 9.7 mg/dL (8.4-10.2); Carbon Dioxide 23 mmol/L (22-29); Chloride 106 mmol/L (96-108); Creatinine Clr Calc Pharmacy 54.7; Estimated Glomerular Filt Rate 41; Glucose Fasting 129 mg/dL (60-99); Potassium 4.2 mmol/L (3.3-5.1); Sodium 138 mmol/L (135-145); Total Protein 7.3 g/dL (6.5-8.0)
[2023-01-26] MEDS: Tacrolimus 1 MG CAPSULE 4 MG PO ×2 (11:50→21:59)
--- NOTE | 2023-01-26 11:50 | PC.NURSE ---
01/26/2023 1100 Midline attempted on right basilic vein, unable to wire. There are no other options. Dr. Haney informed.
[2023-01-26] MEDS: Insulin Lispro 100 UNIT/ML 3 ML VIAL SUBCUT ×2 (12:02→22:00)
--- NOTE | 2023-01-26 12:25 | P.PNIM_ITS ---
Subjective Subjective Date of Service: 01/26/23 Interval History: No acute issues overnight. Remains tolerant of antibiotic therapy. Midline attempted however not achieved. Discussed with Dr. Mensah. Will attempt PICC line today Review of Systems Denies chest pain Denies shortness of breath Denies nausea vomiting diarrhea Denies fever chills Physical Exam Vital Signs: Vital Signs: Last Vital Signs Temp 98.1 F 01/26/23 07:17 Pulse 78 01/26/23 07:17 Resp 16 01/26/23 07:17 BP 119/73 01/26/23 07:17 Pulse Ox 93 01/26/23 07:17 O2 Del Method Room Air 01/26/23 07:17 BMI result Body Mass Index 29.2 Const: Other: Awake alert no acute distress Resp: Other: Clear to auscultation bilaterally no rales rhonchi or wheezes Cardio: Other: No S4; positive S1-S2; no S3 murmurs rubs or gallops GI: Other: Soft nontender nondistended normoactive bowel sounds Extrem: Other: No edema bilaterally Objective Data Active Medications Acetaminophen (Acetaminophen 325 Mg Tablet) 650 mg PO Q6H PRN PRN Reason: Pain, Mild (Pain Scale 1-3) Amlodipine Besylate (Amlodipine Besylate 5 Mg Tablet) 5 mg PO DAILY [facility]; Protocol Last Admin: 01/26/23 08:01 Dose: 5 mg Documented By: JESUS Atorvastatin Calcium (Atorvastatin Calcium 40 Mg Tablet) 40 mg PO BEDTIME [facility] Last Admin: 01/25/23 20:22 Dose: 40 mg Documented By: KIRSTIN Dextrose (Dextrose 50 % 25 Gm/50 Ml Syringe) 25 gm IVPUSH Q15M PRN; Protocol PRN Reason: per Hypoglycemia Standing Ord. Glucose (Glucose Gel 15 Gm Gel..Gram.) 15 gm PO Q15M PRN; Protocol PRN Reason: per Hypoglycemia Standing Ord. Cefazolin Sodium/Dextrose (Ancef) 2 gm in 50 mls @ 100 mls/hr IV Q8H [facility] Last Infusion: 01/26/23 08:54 Dose: 0 mls/hr Documented By: JESUS Insulin Glargine (Insulin Glargine,Hum.Rec.Anlog 100 Unit/Ml 10 Ml Vial) 21 unit SUBCUT BEDTIME [facility] Last Admin: 01/25/23 20:23 Dose: 21 unit Documented By: KIRSTIN Insulin Human Lispro (Insulin Lispro 100 Unit/Ml 3 Ml Vial) 0 unit SUBCUT QIDACHS [facility]; Protocol Last Admin: 01/26/23 12:02 Dose: 1 unit Documented By: JESUS Melatonin (Melatonin 3 Mg Tablet) 6 mg PO BEDTIME PRN PRN Reason: Insomnia Mirtazapine (Mirtazapine 7.5 Mg Tablet) 7.5 mg PO BEDTIME [facility] Last Admin: 01/25/23 20:23 Dose: 7.5 mg Documented By: KIRSTIN Mycophenolate Sodium (Mycophenolate Sodium 180 Mg Tablet.) 540 mg PO BID [facility] Last Admin: 01/26/23 08:01 Dose: 540 mg Documented By: JESUS Pt Own (Calcifediol [Rayaldee] 30 Mcg Capsule,Extended Release 24 Hr) 30 mcg PO BEDTIME [facility] Last Admin: 01/25/23 23:22 Dose: 30 mcg Documented By: KIRSTIN Ondansetron HCl (Ondansetron Hcl 4 Mg/2 Ml Vial) 4 mg IVPUSH Q8H PRN PRN Reason: Nausea and Vomiting Oxycodone HCl (Oxycodone Hcl Immed Release 5 Mg Tablet) 5 mg PO Q4H PRN PRN Reason: Pain, Moderate(Pain Scale 4-6) Last Admin: 01/25/23 08:48 Dose: 5 mg Documented By: CAMPOS Pharmacy Consult (Consult Rx Perform Med Rec) 1 each MISCELLANE ONCE PRN PRN Reason: Consult order Sodium Chloride (0.9 % Sodium Chloride Flush 3 Ml Syringe) 3 ml IVFLUSH QSHIFT [facility] Last Admin: 01/26/23 08:01 Dose: 3 ml Documented By: JESUS Tacrolimus (Tacrolimus 1 Mg Capsule) 4 mg PO BID [facility] Last Admin: 01/26/23 11:50 Dose: 4 mg Documented By: JESUS Valsartan (Valsartan 40 Mg Tablet) 40 mg PO DAILY [facility]; Protocol Last Admin: 01/26/23 08:01 Dose: 40 mg Documented By: JESUS Labs 01/26/23 07:42 01/26/23 07:42 Labs: Laboratory Results - last 24 hr 01/25/23 01/25/23 01/26/23 15:32 15:32 07:42 MCV 92.9 90.6 MCH 29.6 29.6 MCHC 31.9 32.7 RDW 13.0 13.0 Plt Count 240 230 MPV 11.2 11.3 Immature Gran % (Auto) 2.6 H 2.4 H Neut % (Auto) 59.8 63.7 Lymph % (Auto) 23.1 20.0 [place] % (Auto) 12.1 H 11.8 H Eos % (Auto) 1.9 1.6 Baso % (Auto) 0.5 0.5 Lymph # (Auto) 1.9 1.7 [place] # (Auto) 1.0 1.0 Eos # (Auto) 0.2 0.1 Baso # (Auto) 0.0 0.0 Abs Immat Gran (auto) 0.21 H 0.21 H Absolute Neuts (auto) 4.9 5.5 Absolute Nucleated RBC 0.000 0.000 Nucleated RBC % (auto) 0.0 0.0 Anion Gap 14 Estim Creat Clear Calc 54.7 Estimated GFR 41 Fasting Glucose 183 H Calcium 9.6 Total Bilirubin 0.3 AST 10 ALT < 5 Alkaline Phosphatase 100 Total Protein 7.6 Albumin 4.0 01/26/23 07:42 MCV MCH MCHC RDW Plt Count MPV Immature Gran % (Auto) Neut % (Auto) Lymph % (Auto) [place] % (Auto) Eos % (Auto) Baso % (Auto) Lymph # (Auto) [place] # (Auto) Eos # (Auto) Baso # (Auto) Abs Immat Gran (auto) Absolute Neuts (auto) Absolute Nucleated RBC Nucleated RBC % (auto) Anion Gap 13 Estim Creat Clear Calc 54.7 Estimated GFR 41 Fasting Glucose 129 H Calcium 9.7 Total Bilirubin 0.4 AST 12 ALT < 5 Alkaline Phosphatase 90 Total Protein 7.3 Albumin 3.9 Assessment and Plan (1) MSSA bacteremia: Status: Acute (2) Acute kidney injury: Status: Acute Plan 52yo M with PAD s/p R 4th toe amputation, CKD4 s/p renal transplant, DM1, hx stage 3 testicular CA, HTN, HLD, admitted for infection of L 3rd toe and found to have osteomyelitis; blood cultures ultimately grew out MSSA 1.MSSA bacteremia -discussed with IR; PICC will be placed 01/26 -will need 4 weeks of Ancef -for vanco/cefepime (3); Ancef (5) 2.DM ulcer of L 3rd toe with osteomyelitis -underwent 3rd toe amputation 8 7 without issue -antibiotics as above 3.CKD4 -creatinine at baseline -appreciate renal recommendations -follow renals/divalents 4.HTN -acceptable control on current therapies -adjust as indicated 5.Paroxysmal AF - hold Eliquis for PICC on 01/26 -resume when complete 6.DM1 - acceptable control on current therapies (on regular diet) -lispro correctional scale Full code Boots dispo - anticipate eventual home with VNA In my clinical judgment, the patient requires continued inpatient hospitalization for the following reasons: IV ABX, bacteremia, awaiting PICC Time Spent With Patient Time: Total time managing care of this patient today ____ minutes. Quality Stroke Does the patient have a stroke diagnosis?: No VTE Prior VTE?: No VTE Risk Level:: Medical - moderate - high VTE Device Contraindication: Treatment Not Indicated VTE Drug Contraindication: N/A - Med Ordered
--- NOTE | 2023-01-26 16:00 | MHC.CM.PN ---
per rounds picc not placed yet
[2023-01-26 17:14] VITALS: BP 134/85; PULSE 82; RESP 18; TEMP 36.8; O2SAT 98
[2023-01-26 20:00] VITALS: BP 142/71; PULSE 93; RESP 16; TEMP 36.5; O2SAT 98
[2023-01-26] MEDS: Atorvastatin Calcium 40 MG TABLET PO (21:58)
[2023-01-26] MEDS: Insulin Glargine,Hum.rec.anlog 100 UNIT/ML 10 ML VIAL 21 UNIT SUBCUT (21:59)
[2023-01-27 04:00] VITALS: BP 141/75; PULSE 83; RESP 16; TEMP 36.5; O2SAT 95
[2023-01-27 07:39] VITALS: BP 129/75; PULSE 73; RESP 15; TEMP 36.2; O2SAT 94
[2023-01-27] MEDS: Valsartan 40 MG TABLET PO (09:10)
[2023-01-27] MEDS: amLODIPine Besylate 5 MG TABLET PO (09:11)
[2023-01-27] MEDS: Tacrolimus 1 MG CAPSULE 4 MG PO (09:11)
[2023-01-27] MEDS: 0.9 % Sodium Chloride Flush 3 ML SYRINGE IVFLUSH (09:11)
[2023-01-27] MEDS: Mycophenolate Sodium 180 MG TABLET.DR 540 MG PO (09:11)
--- NOTE | 2023-01-27 09:11 | P.PNIM_ITS ---
Subjective Subjective Date of Service: 01/27/23 Interval History: No new issues, had PICC yesterday Physical Exam Vital Signs: Vital Signs: Last Vital Signs Temp 97.2 F 01/27/23 07:39 Pulse 73 01/27/23 07:39 Resp 15 01/27/23 07:39 BP 129/75 01/27/23 07:39 Pulse Ox 94 01/27/23 07:39 O2 Del Method Room Air 01/27/23 07:39 BMI result Body Mass Index 29.2 Const: Other: General: AO X 3, no acute distress Resp: CTA bilateral CVS: S1,S2,RRR, chronic venous stasis changes of both lower legs GI: +BS, NT, no distention Skin: No rash Neuro: motor grossly intact Psych: appropriate affect Objective Data Active Medications Acetaminophen (Acetaminophen 325 Mg Tablet) 650 mg PO Q6H PRN PRN Reason: Pain, Mild (Pain Scale 1-3) Amlodipine Besylate (Amlodipine Besylate 5 Mg Tablet) 5 mg PO DAILY [facility]; Protocol Last Admin: 01/26/23 08:01 Dose: 5 mg Documented By: JESUS Atorvastatin Calcium (Atorvastatin Calcium 40 Mg Tablet) 40 mg PO BEDTIME [facility] Last Admin: 01/26/23 21:58 Dose: 40 mg Documented By: KADI Dextrose (Dextrose 50 % 25 Gm/50 Ml Syringe) 25 gm IVPUSH Q15M PRN; Protocol PRN Reason: per Hypoglycemia Standing Ord. Glucose (Glucose Gel 15 Gm Gel..Gram.) 15 gm PO Q15M PRN; Protocol PRN Reason: per Hypoglycemia Standing Ord. Cefazolin Sodium/Dextrose (Ancef) 2 gm in 50 mls @ 100 mls/hr IV Q8H [facility] Last Infusion: 01/27/23 00:30 Dose: 0 mls/hr Documented By: KADI Insulin Glargine (Insulin Glargine,Hum.Rec.Anlog 100 Unit/Ml 10 Ml Vial) 21 unit SUBCUT BEDTIME [facility] Last Admin: 01/26/23 21:59 Dose: 21 unit Documented By: KADI Insulin Human Lispro (Insulin Lispro 100 Unit/Ml 3 Ml Vial) 0 unit SUBCUT [facility]; Protocol Last Admin: 01/27/23 08:31 Dose: Not Given Documented By: JESUS Non-Admin Reason: No Insulin Coverage Melatonin (Melatonin 3 Mg Tablet) 6 mg PO BEDTIME PRN PRN Reason: Insomnia Mirtazapine (Mirtazapine 7.5 Mg Tablet) 7.5 mg PO BEDTIME [facility] Last Admin: 01/26/23 22:06 Dose: Not Given Documented By: KADI Non-Admin Reason: pt refused doesn't take this medication Mycophenolate Sodium (Mycophenolate Sodium 180 Mg Tablet.) 540 mg PO BID [facility] Last Admin: 01/26/23 21:57 Dose: 540 mg Documented By: KADI Pt Own (Calcifediol [Rayaldee] 30 Mcg Capsule,Extended Release 24 Hr) 30 mcg PO BEDTIME [facility] Last Admin: 01/26/23 21:56 Dose: 30 mcg Documented By: KADI Ondansetron HCl (Ondansetron Hcl 4 Mg/2 Ml Vial) 4 mg IVPUSH Q8H PRN PRN Reason: Nausea and Vomiting Oxycodone HCl (Oxycodone Hcl Immed Release 5 Mg Tablet) 5 mg PO Q4H PRN PRN Reason: Pain, Moderate(Pain Scale 4-6) Last Admin: 01/25/23 08:48 Dose: 5 mg Documented By: CAMPOS Pharmacy Consult (Consult Rx Perform Med Rec) 1 each MISCELLANE ONCE PRN PRN Reason: Consult order Sodium Chloride (0.9 % Sodium Chloride Flush 3 Ml Syringe) 3 ml IVFLUSH QSHIFT [facility] Last Admin: 01/26/23 22:00 Dose: 3 ml Documented By: KADI Tacrolimus (Tacrolimus 1 Mg Capsule) 4 mg PO BID [facility] Last Admin: 01/26/23 21:59 Dose: 4 mg Documented By: KADI Valsartan (Valsartan 40 Mg Tablet) 40 mg PO DAILY [facility]; Protocol Last Admin: 01/26/23 08:01 Dose: 40 mg Documented By: JESUS Labs 01/26/23 07:42 01/26/23 07:42 Labs: Laboratory Results - last 24 hr 01/26/23 07:42 Anion Gap 13 Estim Creat Clear Calc 54.7 Estimated GFR 41 Fasting Glucose 129 H Calcium 9.7 Total Bilirubin 0.4 AST 12 ALT < 5 Alkaline Phosphatase 90 Total Protein 7.3 Albumin 3.9 Assessment and Plan (1) MSSA bacteremia: Status: Acute (2) Acute kidney injury: Status: Acute (3) Osteomyelitis of third toe of left foot: Status: Acute Plan 52yo M with PAD s/p R 4th toe amputation, CKD4 s/p renal transplant, DM1, hx stage 3 testicular CA, HTN, HLD, admitted for infection of L 3rd toe and found to have osteomyelitis; blood cultures ultimately grew out MSSA 1.MSSA bacteremia, to complete 4 weeks of Ancef (D6), PICC done 01/26 -discussed with IR; PICC will be placed 01/26 -completed Vanco x 3 days 2.DM ulcer of L 3rd toe with osteomyelitis -underwent 3rd toe amputation 01/19 without issue -antibiotics as above 3.CKD4 -creatinine at baseline -appreciate renal recommendations 4.HTN--controlled on present meds 5.Paroxysmal AF, rate controlled, restart eliquis today 6.DM1 - acceptable control on current therapies (on regular diet) -lispro correctional scale Full code Boots dispo - anticipate eventual home with VNA today if able to be arranged In my clinical judgment, the patient requires continued inpatient hospitalization for the following reasons: IV ABX, bacteremia, awaiting PICC Time Spent With Patient Time: Total time managing care of this patient today ____ minutes. Quality Stroke Does the patient have a stroke diagnosis?: No VTE Prior VTE?: No VTE Risk Level:: Medical - moderate - high VTE Device Contraindication: Treatment Not Indicated VTE Drug Contraindication: N/A - Med Ordered
[2023-01-27] MEDS: ceFAZolin Sodium/Dextrose,Iso 2 GM/50 ML PIGGYBACK IV (09:25)
[2023-01-27] MEDS: Apixaban 5 MG TABLET PO (09:25)
--- NOTE | 2023-01-27 11:55 | MHC.CM.PN ---
IMM 01/27/23 Patient is discharged to home with [facility] and [facility]. He ming be home to infuse his 4pm dose. [facility] delivery 2pm. [facility] will start services tomorrow. The patient is competent to manage home infusion until [facility]NA SOC. Pts will provide transport home.
--- NOTE | 2023-01-27 12:17 | PM.PNNEP ---
Subjective Subjective Date of Service: 01/27/23 Interval history: No new issues, had PICC yesterday Physical Exam Vital Signs: Vital Signs: Last Vital Signs Temp 97.2 F 01/27/23 07:39 Pulse 73 01/27/23 07:39 Resp 15 01/27/23 07:39 BP 129/75 01/27/23 07:39 Pulse Ox 94 01/27/23 07:39 O2 Del Method Room Air 01/27/23 07:39 BMI result Body Mass Index 29.2 Const: General: no acute distress Orientation/consciousness: patient oriented x3 Eyes: EOM: EOMs intact bilaterally Resp: Auscultation: diminished lung sounds Cardio: Rate: regular rate GI: Palpation (GI): Soft to palpation Neuro: General: patient oriented x3 Objective Data Labs 01/26/23 07:42 01/26/23 07:42 Microbiology Microbiology Results: Microbiology 01/19/23 05:33 Blood - Venous Blood Culture - Final No growth after 5 days. 01/19/23 05:34 Blood - Venous Blood Culture - Final No growth after 5 days. 01/16/23 02:54 Blood - Venous Blood Culture - Final Staphylococcus aureus 01/15/23 23:09 Blood - Venous Blood Culture - Final Staphylococcus aureus Procedures Date of Service Date of Service: 01/27/23 Assessment & Plan Assessment and plan (1) Acute kidney injury: Status: Acute Assessment and Plan: Had GIA in a renal transplant Tacrolimus levels had been a bit high Needs to reduce Tacrolimus dose to 3 mg bid Had PICC line; C/W rest of current management Progress Note: Quality Stroke Does the patient have a stroke diagnosis?: No
--- NOTE | 2023-01-27 12:24 | P.DS_ITS ---
DS: Providers Provider Date of Service: 01/27/23 Date of admission: 01/16/23 02:19 Primary care physician: Geovanni Pink MD Consults: 01/16/23 05:25 Consult to General Surgery Routine Consulting Provider: [facility] [facility] Reason for consultation: non healing toe wound Consult to Infectious Diseases Routine Consulting Provider: [facility] [place] Infectious Disease Reason for consultation: ?osteomyelitis 01/16/23 05:30 Consult to Nephrology Routine Consulting Provider: Melvin Nicole Reason for consultation: kidney transplant DS: Diagnosis Discharge Diagnosis (1) Acute kidney injury: Status: Resolved DS: Summary Hospital Course Hospital Course: Date of Service: 01/16/23 Chief Complaint: Toe infection This is a 52-year-old male with pertinent history of peripheral arterial disease status post right foot toe amputation, essential hypertension, mixed hyperlipidemia, chronic kidney disease status post renal transplant on immunosuppressive therapy, insulin-dependent type 1 diabetes mellitus, history of testicular cancer stage III who presents to the emergency department for evaluation of toe infection.? Patient states he has had nonhealing wound of the left toe that has been ongoing for a while.? Presents today as he has been having fevers and purulent drainage from the toe.? He denies nausea, vomiting.? No chest discomfort, palpitations, shortness of breath, abdominal pain, changes in urinary or bowel habits In the emergency department, imaging concerning for osteomyelitis. [facility]: He presented with an infected as detailed above and found to have osteomylitis Left 3rd toe and had amputation left 3rd Toe on 01/[address] Verde. He was further found to have MSSA bacteremia, he has been seen by infectious disease Dr. Soto and recommended for IV Abx for total of 6 weeks with Cefazolin and will complete therapy on 02/18 via a PICC line inserted on 01/26. Echocardiogram showed no vegetations. other issues: 3.CKD4 s/p renal transplant -creatinine at baseline -appreciate renal recommendations - Tacrolimus level is high and therefore dose is being reduced to 3 4.HTN--controlled on present meds 5.Paroxysmal AF, rate controlled, to continue Eliquis 6.DM--to resume prior regimen Time Spent with Patient Time attestation: Total time managing care of this patient today ____ minutes. Discharge coordination time: Greater than 30 minutes Quality: Safe Use of Opioids Does Pt have an Active Cancer Diagnosis on the Problem List?: No Quality: Stroke Does the patient have a stroke diagnosis?: No Physical Exam Vital Signs: Vital Signs: Last Vital Signs Temp 97.2 F 01/27/23 07:39 Pulse 73 01/27/23 07:39 Resp 15 01/27/23 07:39 BP 129/75 01/27/23 07:39 Pulse Ox 94 01/27/23 07:39 O2 Del Method Room Air 01/27/23 07:39 BMI result Body Mass Index 29.2 DS: Data Data Completed and Pending Completed studies during hospitalization [Text1]: Pending at discharge 01/19/23 10:13 Surgical [PTH] Routine Procedures Detachment at Right 4th Toe, Complete, Open Approach (10/06/22) Fluoroscopy of Aorta and Bilateral Lower Extremity Arteries (10/06/22) Insertion of Infusion Device into Superior Vena Cava, Percutaneous Approach (10/06/22) Insertion of Tunneled Vascular Access Device into Chest Subcutaneous Tissue and Fascia, Percutaneous Approach (10/06/22) Ultrasonography of Superior Vena Cava, Guidance (10/06/22) Discharge Plan Discharge Anticipated Discharge Date/Time: 01/27/23 12:07 Patient Disposition: Home Health Service Discharge Diagnosis: MSSA bacteremia, Osteomylitis Referrals: Geovanni Pink MD [Primary Care Provider] - 1 Week Discharge Medications: New cefazolin in 0.9% sod chloride 2 gram/100 mL solution 100 ml IV Q8H 22 Days Qty: 6600 0RF Continued (DME) Ultra-Light Rollator Misc See Rx Instructions .ROUTE .MEDSUPPLY Qty: 1 0RF Rx Instructions: As directed (DME) 16 inch grab bar See Rx Instructions .Route .MEDSUPPLY Qty: 1 0RF Rx Instructions: As directed (DME) transport wheelchair See Rx Instructions .Route .MEDSUPPLY Qty: 1 0RF Rx Instructions: As directed (DME) bed assist handle See Rx Instructions .Route .MEDSUPPLY Qty: 1 0RF Rx Instructions: As directed Rayaldee 30 mcg Capsule,Extended Release 24 Hr 30 mcg PO BEDTIME mycophenolate sodium 180 mg tablet,delayed release (DR/EC) 540 mg PO BID insulin aspart U-100 [Novolog FlexPen U-100 Insulin] 100 unit/mL (3 mL) insulin pen 8 unit subcut TIDAC insulin glargine [Lantus Solostar U-100 Insulin] 100 unit/mL (3 mL) insulin pen 21 unit SUBCUT BEDTIME rosuvastatin 10 mg tablet 10 mg PO BEDTIME mirtazapine 7.5 mg tablet 7.5 mg PO BEDTIME (DME) pen needle, diabetic 31 gauge x 3/16 needle See Rx Instructions subcut .MEDSUPPLY Qty: 50 Rx Instructions: As directed apixaban 5 mg tablet 5 mg PO BID (DME) lancets [FreeStyle Lancets] 28 gauge misc See Rx Instructions topical TID Qty: 100 Rx Instructions: As directed amlodipine 5 mg tablet 5 mg PO DAILY valsartan 40 mg tablet 40 mg PO DAILY Changed tacrolimus 1 mg capsule 3 mg PO BID Qty: 60 0RF Discharge Orders: Discharge Order (Routine); Ordered 01/27/23 Ordered By: Johnny He Diet: Diabetic diet Activity on Discharge: As tolerated Stand Alone Forms: Patient Portal Discharge page Care Plan Goals: recocvery from bacteremia and osteomylitis Health Concerns: End-stage renal disease status post transplant continue home medication Plan of Treatment: MSSA bacteremia take cefazolin 2gm q 8H end date 02/18/23 Status post amputation of left 3rd toe keep leg elevated as much as possible Continue daily dry sterile dressing Follow-up with Dr. Verde in 1 week Tacrolimus level has been reduced to 3 mg twice daily from 4 mg twice daily Outpatient follow-up with primary care physician Outpatient follow-up with Dr. Verde in 1 week Outpatient follow-up with Nephrology as previously planned Assessment: As above Discharge Date/Time: 01/27/23 13:11
== END 2023-01-27 13:11 | disposition home health service (06) | DRG 617 ==
LOC: HO.ED 01-16 02:16 → HO.EDOVER 01-16 02:31 → HO.S3 01-16 15:04
PROVIDERS: Family Medicine; Hospitalist; Internal Medicine Nephrology; Radiology Diagnostic Radiology; Surgery; Admitting Provider Student in an Organized Health Care Education/Training Program; Emergency Provider Emergency Medicine; PCP Family Medicine; Visit Provider Internal Medicine
PROC: 0Y6U0Z2 Detachment at Left 3rd Toe, Mid, Open Approach (ICD-10-PCS; principal; 2023-01-19 10:20)
DX: E10.69 Type 1 diabetes mellitus with other specified complication (principal); D84.821 Immunodeficiency due to drugs; T86.12 Kidney transplant failure; M86.172 Other acute osteomyelitis, left ankle and foot; M86.672 Other chronic osteomyelitis, left ankle and foot; R33.9 Retention of urine, unspecified; E10.42 Type 1 diabetes mellitus with diabetic polyneuropathy; E78.2 Mixed hyperlipidemia; I48.0 Paroxysmal atrial fibrillation; I12.9 Hypertensive chronic kidney disease with stage 1 through stage 4 chronic kidney disease, or unspecified chronic kidney disease; N17.9 Acute kidney failure, unspecified; E10.610 Type 1 diabetes mellitus with diabetic neuropathic arthropathy; E10.621 Type 1 diabetes mellitus with foot ulcer; L97.529 Non-pressure chronic ulcer of other part of left foot with unspecified severity; N25.81 Secondary hyperparathyroidism of renal origin; N18.4 Chronic kidney disease, stage 4 (severe); E10.22 Type 1 diabetes mellitus with diabetic chronic kidney disease; Z85.47 Personal history of malignant neoplasm of testis; Z79.01 Long term (current) use of anticoagulants; Z79.621 Long term (current) use of calcineurin inhibitor; Z79.899 Other long term (current) drug therapy
CPT/HCPCS: 36415; 36573; 73630; 73700; 73720; 76937; 80048; 80053; 80197; 80202; 82565; 82947; 83605; 85025; 85027; 85610; 85652; 85730; 86140; 87040; 87077; 87147; 87186; 87205; 88305; 88311; 93306; 99285; A9585; C1751; J0690; J0692; J2543; J3370; J3371; Q9957

== ENCOUNTER 2023-01-16 02:19 | Outpatient (BNV) | payer OTHER, SELFPAY | END 2023-01-19 07:00 | PROVIDERS: Admitting Provider Student in an Organized Health Care Education/Training Program; Emergency Provider Emergency Medicine; PCP Family Medicine; Visit Provider Internal Medicine Cardiovascular Disease | DX: I71.21 Aneurysm of the ascending aorta, without rupture (principal) | CPT/HCPCS: 93306 ==

== ENCOUNTER 2023-01-16 02:19 | Outpatient (BNV) | payer OTHER, SELFPAY | END 2023-01-26 15:30 | PROVIDERS: Admitting Provider Student in an Organized Health Care Education/Training Program; Emergency Provider Emergency Medicine; PCP Family Medicine; Visit Provider Radiology Diagnostic Radiology | DX: R78.81 Bacteremia (principal) | CPT/HCPCS: 36573 ==

== ENCOUNTER → 2023-01-16 02:19 | Outpatient (BNV) | payer OTHER, SELFPAY | PROVIDERS: Admitting Provider Student in an Organized Health Care Education/Training Program; Emergency Provider Emergency Medicine; PCP Family Medicine; Visit Provider Student in an Organized Health Care Education/Training Program | DX: N17.9 Acute kidney failure, unspecified (principal) | CPT/HCPCS: 99222; 99232; 99233; 99239; 99499 ==

== ENCOUNTER → 2023-01-16 02:19 | Outpatient (BNV) | payer OTHER, SELFPAY | PROVIDERS: Admitting Provider Student in an Organized Health Care Education/Training Program; Emergency Provider Emergency Medicine; PCP Family Medicine; Visit Provider Internal Medicine | DX: M86.9 Osteomyelitis, unspecified (principal) | CPT/HCPCS: 99222; 99232 ==

== ENCOUNTER → 2023-01-16 02:19 | Outpatient (BNV) | payer OTHER, SELFPAY | PROVIDERS: Admitting Provider Student in an Organized Health Care Education/Training Program; Emergency Provider Emergency Medicine; PCP Family Medicine; Visit Provider Surgery | DX: M86.8X7 Other osteomyelitis, ankle and foot (principal); Z89.422 Acquired absence of other left toe(s) | CPT/HCPCS: 28825; 99223; 99232 ==

== ENCOUNTER 2023-02-03 10:29 | Outpatient (AMB) | payer OTHER, SELFPAY ==
--- NOTE | 2023-02-03 10:28 | A.OFFVIS_ITS ---
Intake Vital Signs 02/03/23 10:39 Height 5 ft 9 in Weight 199 lb 6 oz BMI 29.4 BP 152/78 H Blood Pressure Location Lt brachial Position Sitting Pulse 81 Intake Visit Reasons: S/P 3rd toe amputation Intake Note: Patient is seen in office for post op assessment post 3rd toe amputation. Patient c/o: has [facility]NA nurse coming in weekly to check the dressing, currently wound is clear for draining per pt Criminal Court Judge Required: No Accompanied by: Self / Same As Patient Allergies No Known Allergies Allergy (Verified 02/03/23 10:39) Medication List - Last Reconciled 02/03/23 by Joseph Verde MD [16 inch grab bar As directed] amlodipine 5 mg PO DAILY apixaban 5 mg PO BID [bed assist handle As directed] calcifediol ER (Rayaldee) 30 mcg PO BEDTIME cefazolin in 0.9% sod chloride 2 gram/100 mL 100 mL IV Q8H 22 days insulin aspart U-100 (Novolog FlexPen U-100 Insulin aspart) 8 units subcut TIDAC insulin glargine (Lantus Solostar U-100 Insulin) 21 units subcut BEDTIME lancets (FreeStyle Lancets) As directed mirtazapine 7.5 mg PO BEDTIME mycophenolate sodium 540 mg PO BID pen needle, diabetic As directed rosuvastatin 10 mg PO BEDTIME tacrolimus 3 mg (3 x 1 mg) PO BID [transport wheelchair As directed] valsartan 40 mg PO DAILY walker (Ultra-Light Rollator misc) As directed HPI HPI Comments History of Present Illness Details 52-year-old male patient returning following recent hospitalization for osteomyelitis of the left 3rd toe. He is now status post partial amputation of the left 3rd toe 01/19/2023. He tolerated the procedure well is currently undergoing IV antibiotic treatments on a daily basis via PICC line. He noted some black discoloration of the toe is concerned about the need for a further amputation. He returns today for wound check. [facility] Medical History (Updated 01/23/23 @ 17:24 by Kathleen Peck MD) 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 chronic kidney disease Bleeding internal hemorrhoids Carpal tunnel syndrome on left Chronic right shoulder pain Diabetes mellitus with diabetic nephropathy, with long-term current use of insulin Diabetes mellitus with foot ulcer Diabetic ulcer of right foot End-stage renal disease on hemodialysis Hyperlipidemia Mixed dyslipidemia MSSA bacteremia Multinodular goiter Osteomyelitis Osteomyelitis of left foot Osteomyelitis of third toe of left foot PAD (peripheral artery disease) Paresthesia and pain of extremity Peripheral vascular disease Refused pneumococcal vaccination S/P angiogram of extremity (10/08/22) Secondary hyperparathyroidism of renal origin Seminoma Testicular cancer Type 2 diabetes mellitus with chronic kidney disease Type 2 diabetes mellitus with hyperglycemia, with long-term current use of insulin Vaccination refused by patient Wound of right foot Surgical History (Updated 02/02/23 @ 10:24 by EFREN Khan) Amputated toe of right foot (10/13/22) History of amputation (01/19/23) History of kidney transplant Family History Father Unknown family medical history Mother Diabetes mellitus HTN (hypertension) CVD (cardiovascular disease) History of CVA (cerebrovascular accident) Stroke Sister Diabetes mellitus Daughter No problems noted. Sister No problems noted. Sister No problems noted. Social History Household Members: Spouse and Children Housing: House Do you presently have visiting nurse or other home services: No Alcohol intake: never Patient Tobacco Use Status: Never used Tobacco e-Cigarette/Vaping Use: Never Used Advance Directives Date on File: 01/16/23 service: No Current occupational status: disabled Current occupation: disability - kidney transplant. Left side dominant Physical Exam Const General: no acute distress Nutritional Appearance: well nourished Orientation/consciousness: patient oriented x3 Limitations: no limitations Neuro General: patient oriented x3 Extrem Other: Left 3rd toe with crust surrounding the sutures. Sutures removed in the incision found to be well healed. The exudate was able to be removed along with the sutures. No evidence of underlying infection appreciated. Dry sterile dressings were applied. Assessment & Plan Assessment & Plan (1) Osteomyelitis of third toe of left foot: Code(s): M86.9 - Osteomyelitis, unspecified Plan 52-year-old male patient status post amputation of the left 3rd toe. His wounds are healing nicely. Sutures removed dry sterile dressings applied. He should continue to apply a protective dressing and return approximately 1 month for wound check. Medications: Discontinued rosuvastatin 10 mg PO DAILY 30 tabs 6RF E11.65 - Type 2 diabetes mellitus with hyperglycemia, Z79.4 - penitentiary (current) use of insulin Coding Level of Care Code Global (66449) Diagnoses Osteomyelitis of third toe of left foot M86.9
[2023-02-03 10:39] VITALS: BP 152/78; PULSE 81; BMI 29.4
== END 2023-02-03 10:51 | disposition home or self-care (01) ==
LOC: HO.HGS 10:29
PROVIDERS: PCP Family Medicine; Visit Provider Surgery
DX: M86.9 Osteomyelitis, unspecified (principal)
CPT/HCPCS: 99024

== ENCOUNTER → 2023-02-03 10:29 | Outpatient (BNVA) | payer OTHER, SELFPAY | PROVIDERS: PCP Family Medicine; Visit Provider Surgery ==

== ENCOUNTER 2023-02-03 14:44 | Outpatient (REF) | payer OTHER, SELFPAY ==
[2023-02-03 14:49] LABS: MANUAL DIFF FLAG NO
[2023-02-03 14:55] LABS: Basophils Percent Auto 0.6 % (0-2); Eosinophils Absolute Auto 0.2 X10*3/uL (0.0-0.4); Eosinophils Percent Auto 2.2 % (0-4); Hematocrit 41.8 % (42.0-52.0); Hemoglobin 13.5 g/dl (14.0-18.0); Imm Gran Abs Auto 0.18 X10*3/uL (0.00-0.03); Imm Gran Pct Auto 2.7 % (0.0-0.4); Lymphocytes Absolute Auto 1.6 X10*3/uL (1.2-4.9); Lymphocytes Percent Auto 23.5 % (20-40); Mean Corpuscular HGB Conc 32.3 g/dl (31.0-36.0); Mean Corpuscular Hemoglobin 29.8 pg (27.0-33.0); Mean Corpuscular Volume 92.3 fL (80.0-98.0); Mean Platelet Volume 11.7 fL (9.4-12.4); Monocytes Absolute Auto 0.8 X10*3/uL (0.1-1.2); Monocytes Percent Auto 11.4 % (2-11); Neutrophils Percent Auto 59.6 % (45-73); Platelet Count 198 X10*3/uL (160-400); Red Blood Count 4.53 X10*6/uL (4.60-5.80); Red Cell Distribution Width 13.2 % (11.0-16.0); White Blood Count 6.7 X10*3/uL (4.8-10.8)
[2023-02-03 16:00] LABS: Blood Urea Nitrogen 17 mg/dL (9-16); Estimated Glomerular Filt Rate 49
== END 2023-02-03 14:45 | disposition home or self-care (01) ==
LOC: HO.HVNA 14:44
PROVIDERS: Visit Provider Internal Medicine
DX: M86.9 Osteomyelitis, unspecified (principal)
CPT/HCPCS: 36415; 82565; 84520; 85025

== ENCOUNTER 2023-02-10 10:48 | Outpatient (REF) | payer OTHER, SELFPAY ==
[2023-02-10 10:53] LABS: MANUAL DIFF FLAG NO
[2023-02-10 10:59] LABS: Basophils Absolute Auto 0.1 X10*3/uL (0.0-0.2); Basophils Percent Auto 0.7 % (0-2); Eosinophils Absolute Auto 0.2 X10*3/uL (0.0-0.4); Eosinophils Percent Auto 2.3 % (0-4); Hematocrit 46.4 % (42.0-52.0); Hemoglobin 14.6 g/dl (14.0-18.0); Imm Gran Abs Auto 0.08 X10*3/uL (0.00-0.03); Imm Gran Pct Auto 1.2 % (0.0-0.4); Lymphocytes Absolute Auto 1.7 X10*3/uL (1.2-4.9); Mean Corpuscular HGB Conc 31.5 g/dl (31.0-36.0); Mean Corpuscular Volume 92.2 fL (80.0-98.0); Mean Platelet Volume 12.2 fL (9.4-12.4); Monocytes Absolute Auto 0.9 X10*3/uL (0.1-1.2); Monocytes Percent Auto 12.7 % (2-11); Neutrophils Absolute Auto 4.1 x10*3/uL (2.0-8.3); Neutrophils Percent Auto 59.1 % (45-73); Platelet Count 155 X10*3/uL (160-400); Red Blood Count 5.03 X10*6/uL (4.60-5.80); Red Cell Distribution Width 13.4 % (11.0-16.0); White Blood Count 6.9 X10*3/uL (4.8-10.8)
[2023-02-10 11:33] LABS: Blood Urea Nitrogen 19 mg/dL (9-16); Estimated Glomerular Filt Rate 41
== END 2023-02-10 10:49 | disposition home or self-care (01) ==
LOC: HO.HVNA 10:48
PROVIDERS: Visit Provider Internal Medicine
DX: M86.172 Other acute osteomyelitis, left ankle and foot (principal)
CPT/HCPCS: 36415; 82565; 84520; 85025

== ENCOUNTER 2023-02-11 15:18 | Outpatient (AMB) | payer OTHER, SELFPAY ==
[2023-02-11 15:31] VITALS: BP 122/80; PULSE 76; O2SAT 99; BMI 29.6
--- NOTE | 2023-02-11 15:31 | MHC.PC.OV ---
Vital Signs 02/11/23 15:31 Height 5 ft 9 in Weight 200 lb 4 oz BMI 29.6 BP 122/80 Blood Pressure Location Lt brachial Position Sitting Pulse 76 Pulse Source Pulse Oximeter Pulse Oximetry (%) 99 Oxygen Delivery Method Room Air Intake Visit Reasons: [facility] [place] - cellulitis and osteomyelitis Intake Note: Patient is here for HDF at [facility] for cellulitis and osteomylelitis. Patient would like to discuss colonoscopy. Patient is also requesting cream for his foot Olivamine cream. Accompanied by: Daughter Allergies No Known Allergies Allergy (Verified 02/11/23 15:33) Tobacco use date assessed: 02/11/23 Dental Screening Dental Screen Date: 02/11/23 Did you have a dental visit in the last 12 months?: Yes Did you have a dental problem in the last 6 months where you did not have access to dental care?: No Was dental information given to patient?: Patient has dentist HPI [facility] 01/27/23 - cellulitis and osteomyelitis HPI Details 52 y/o male presents to f/u [facility] 01/27/23 visit for cellulitis and osteomyelitis. He had presented with fevers and purulent drainage from the toe. Imaging concerning for osteomyelitis. Also had MSSA bacteremia and prescribed cefazolin end date 02/18/23. Recomennded to keep leg elevated as much as possible and f/u with Dr. Verde in a week. [facility] Medical History (Updated 02/11/23 @ 15:59 by Shukri Robertson) 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 chronic kidney disease Bleeding internal hemorrhoids Carpal tunnel syndrome on left Chronic right shoulder pain Diabetes mellitus with diabetic nephropathy, with long-term current use of insulin Diabetes mellitus with foot ulcer Diabetic ulcer of right foot End-stage renal disease on hemodialysis Hyperlipidemia Mixed dyslipidemia MSSA bacteremia Multinodular goiter Osteomyelitis Osteomyelitis of left foot Osteomyelitis of third toe of left foot PAD (peripheral artery disease) Paresthesia and pain of extremity Peripheral vascular disease Refused pneumococcal vaccination S/P angiogram of extremity (10/08/22) Secondary hyperparathyroidism of renal origin Seminoma Testicular cancer Type 2 diabetes mellitus with chronic kidney disease Type 2 diabetes mellitus with hyperglycemia, with long-term current use of insulin Vaccination refused by patient Wound of right foot Surgical History Amputated toe of right foot (10/13/22) History of amputation (01/19/23) History of kidney transplant Kidney transplant recipient Family History Father Unknown family medical history Mother Diabetes mellitus HTN (hypertension) CVD (cardiovascular disease) History of CVA (cerebrovascular accident) Stroke Sister Diabetes mellitus Daughter No problems noted. Sister No problems noted. Sister No problems noted. Social History Household Members: Spouse and Children Housing: House Do you presently have visiting nurse or other home services: No Alcohol intake: never Patient Tobacco Use Status: Never used Tobacco e-Cigarette/Vaping Use: Never Used Advance Directives Date on File: 01/16/23 service: No Current occupational status: disabled Current occupation: disability - kidney transplant. Left side dominant Cognitive needs: No Hearing needs: No Vision needs: No Questionnaire Thrive Questionnaire Date Thrive assessed: 01/17/23 Review of Systems Const Denies chills, Denies fatigue, Denies fever(s), Denies headache(s) and Denies weakness ENT Denies dizziness and Denies headache(s) Card Denies dyspnea Resp Denies cough, Denies dyspnea, Denies wheezing and Denies other (shortness of breath) Musc Denies numbness and Denies tingling Neuro Denies dizziness, Denies headache(s), Denies numbness, Denies tingling and Denies weakness Psych Denies anxiety and Denies depression Endo Denies fatigue Aller/Immun Denies wheezing Physical exam (Primary Care) Vital Signs: Last Vital Signs Pulse 76 02/11/23 15:31 BP 122/80 02/11/23 15:31 Pulse Ox 99 02/11/23 15:31 Oxygen Delivery Method Room Air 02/11/23 15:31 BMI result Body Mass Index 29.6 Tobacco/Smoking Status: Tobacco use Status Tobacco use date assessed 02/11/23 02/11/23 15:42 Patient Tobacco Use Status Never used Tobacco 02/11/23 15:42 e-Cigarette/Vaping Use Never Used 02/11/23 15:42 Thrive Assessment: Date of Thrive Assessment Date Thrive assessed 01/17/23 02/11/23 15:42 Const General: well developed; No acute distress Nutritional Appearance: well nourished Orientation/consciousness: patient oriented x3 HENMT Head: Yes normocephalic and Yes atraumatic Eyes General: appearance normal, both eyes and all related structures Pupils: Equal, round and reactive pupils present EOM: EOMs intact bilaterally Resp Effort & Inspection: normal respiratory effort Neuro General: patient oriented x3 and gait normal Cranial nerves: Yes Equal, round and reactive pupils present Psych Affect: normal affect Assessment and Plan Assessment & Plan (1) MSSA bacteremia: Comment: MSSA bacteremia Affected bone removed foot [facility] Follow up echo. Done Kefzol 03/02 six weeks in case residual osteomyelitis. Code(s): R78.81 - Bacteremia; B95.61 - Methicillin susceptible Staphylococcus aureus infection as the cause of diseases classified elsewhere Plan: Continue cefazolin through 02/18/2023 and follow-up with Infectious Disease as recommended (2) Osteomyelitis: Code(s): M86.9 - Osteomyelitis, unspecified Plan: As above (3) Dry skin: Code(s): L85.3 - Xerosis cutis Plan: Dry and cracking skin which may have been an initial causative factor in cellulitis/osteomyelitis. He can use Lubriderm or Eucerin Hydrate well Use humidified air Avoid feet and directly on his feet While he is sleeping (4) Screening for colon cancer: Code(s): Z12.11 - Encounter for screening for malignant neoplasm of colon Plan: Cologuard test her Orders: Referrals Cologuard Test Z12.11 - Encounter for screening for malignant neoplasm of colon, Z12.12 - Encounter for screening for malignant neoplasm of rectum Medications: New emollient combination no.71 (Lubriderm Advanced Therapy lotion) 1 ea topical BID-QID 473 mL 2RF 30 days Discontinued rosuvastatin 10 mg PO DAILY 30 tabs 6RF E11.65 - Type 2 diabetes mellitus with hyperglycemia, Z79.4 - alf (current) use of insulin Coding Level of Care Code Est Pt Level 3 (03746) Diagnoses MSSA bacteremia R78.81; B95.61 Osteomyelitis M86.9 Dry skin L85.3 Screening for colon cancer Z12.11
== END 2023-02-11 16:09 | disposition home or self-care (01) ==
PROVIDERS: PCP Family Medicine; Visit Provider Family Medicine
DX: R78.81 Bacteremia (principal); B95.61 Methicillin susceptible Staphylococcus aureus infection as the cause of diseases classified elsewhere; M86.9 Osteomyelitis, unspecified; L85.3 Xerosis cutis; Z12.11 Encounter for screening for malignant neoplasm of colon
CPT/HCPCS: 99213

== ENCOUNTER 2023-02-17 10:16 | Outpatient (REF) | payer OTHER, SELFPAY ==
[2023-02-17 10:27] LABS: MANUAL DIFF FLAG NO
[2023-02-17 10:30] LABS: Basophils Percent Auto 0.4 % (0-2); Eosinophils Absolute Auto 0.1 X10*3/uL (0.0-0.4); Hematocrit 45.5 % (42.0-52.0); Hemoglobin 14.5 g/dl (14.0-18.0); Imm Gran Abs Auto 0.08 X10*3/uL (0.00-0.03); Imm Gran Pct Auto 1.2 % (0.0-0.4); Lymphocytes Absolute Auto 1.6 X10*3/uL (1.2-4.9); Lymphocytes Percent Auto 23.1 % (20-40); Mean Corpuscular HGB Conc 31.9 g/dl (31.0-36.0); Mean Platelet Volume 12.7 fL (9.4-12.4); Monocytes Absolute Auto 0.8 X10*3/uL (0.1-1.2); Monocytes Percent Auto 10.9 % (2-11); Neutrophils Absolute Auto 4.3 x10*3/uL (2.0-8.3); Neutrophils Percent Auto 62.4 % (45-73); Platelet Count 128 X10*3/uL (160-400); Red Blood Count 4.84 X10*6/uL (4.60-5.80); Red Cell Distribution Width 13.7 % (11.0-16.0); White Blood Count 6.9 X10*3/uL (4.8-10.8)
[2023-02-17 11:24] LABS: Blood Urea Nitrogen 22 mg/dL (9-16); Estimated Glomerular Filt Rate 44
== END 2023-02-17 10:17 | disposition home or self-care (01) ==
LOC: HO.HVNA 10:16
PROVIDERS: Visit Provider Internal Medicine
DX: M86.172 Other acute osteomyelitis, left ankle and foot (principal)
CPT/HCPCS: 36415; 82565; 84520; 85025

== ENCOUNTER 2023-02-20 08:07 | Outpatient (AMB) | payer OTHER, SELFPAY ==
[2023-02-20 08:14] VITALS: BP 102/62; PULSE 89; RESP 14; TEMP 37.2; O2SAT 98; BMI 29.2
--- NOTE | 2023-02-20 08:14 | A.OFFPC_ITS ---
Vital Signs 02/20/23 08:14 Height 5 ft 9 in Weight 198 lb BMI 29.2 BP 102/62 Blood Pressure Location Lt brachial Position Sitting Respiration 14 Pulse 89 Pulse Source Pulse Oximeter Temp 98.9 F Temp Source Oral Pulse Oximetry (%) 98 Oxygen Delivery Method Room Air Intake Visit Reasons: f/u diabetes Intake Note: Patient is here to follow up with his diabetic care. Patient reports he has no questions or concerns at this time. Development Scientist Required: No Development Scientist Name: Patient declined night time nanny Accompanied by: Self / Same As Patient Allergies No Known Allergies Allergy (Verified 02/20/23 08:20) Tobacco use date assessed: 02/11/23 Dental Screening Dental Screen Date: 02/20/23 Did you have a dental visit in the last 12 months?: Yes Did you have a dental problem in the last 6 months where you did not have access to dental care?: No Was dental information given to patient?: Patient has dentist HPI f/u diabetes HPI Details 52 y/o male presents to f/u diabetes. A1c today 02/20/2023 7.2%. He is on insulin aspart 8 units, insulin glargine 26 units. Pt had a recent infection. He reports the lowest blood sugar he has gotten is 80. Pt notes he does not have an police magistrate. [facility] Medical History MSSA bacteremia Osteomyelitis of third toe of left foot S/P angiogram of extremity (10/08/22) Diabetic ulcer of right foot Osteomyelitis Wound of right foot PAD (peripheral artery disease) Chronic right shoulder pain Multinodular goiter Testicular cancer Bleeding internal hemorrhoids Seminoma Paresthesia and pain of extremity Type 2 diabetes mellitus with hyperglycemia, with long-term current use of insulin Type 2 diabetes mellitus with chronic kidney disease Hyperlipidemia Vaccination refused by patient Refused pneumococcal vaccination Anemia in stage 4 chronic kidney disease Acute proliferative glomerulonephritis Secondary hyperparathyroidism of renal origin Mixed dyslipidemia Peripheral vascular disease Carpal tunnel syndrome on left Diabetes mellitus with diabetic nephropathy, with long-term current use of insulin Osteomyelitis of left foot Diabetes mellitus with foot ulcer End-stage renal disease on hemodialysis Surgical History History of amputation (01/19/23) Amputated toe of right foot (10/13/22) History of kidney transplant Kidney transplant recipient Family History Father Unknown family medical history Mother Diabetes mellitus HTN (hypertension) CVD (cardiovascular disease) History of CVA (cerebrovascular accident) Stroke Sister Diabetes mellitus Daughter No problems noted. Sister No problems noted. Sister No problems noted. Social History Household Members: Spouse and Children Housing: House Do you presently have visiting nurse or other home services: No Alcohol intake: never Patient Tobacco Use Status: Never used Tobacco e-Cigarette/Vaping Use: Never Used Advance Directives Date on File: 01/16/23 service: No Current occupational status: disabled Current occupation: disability - kidney transplant. Left side dominant Cognitive needs: No Hearing needs: No Vision needs: No Questionnaire Thrive Questionnaire Date Thrive assessed: 01/17/23 Review of Systems Const Denies chills, Denies fatigue, Denies fever(s), Denies headache(s) and Denies weakness ENT Denies dizziness and Denies headache(s) Card Denies chest pain, Denies lightheadedness, Denies dyspnea and Denies other (Palpitations) Resp Denies cough, Denies dyspnea, Denies wheezing and Denies other ( shortness of breath) Musc Denies numbness and Denies tingling Neuro Denies dizziness, Denies headache(s), Denies numbness, Denies tingling, Denies paresthesias and Denies weakness Psych Denies anxiety and Denies depression Endo Denies fatigue Aller/Immun Denies wheezing Physical exam (Primary Care) Vital Signs: Last Vital Signs Temp 98.9 F 02/20/23 08:14 Pulse 89 02/20/23 08:14 Resp 14 02/20/23 08:14 BP 102/62 02/20/23 08:14 Pulse Ox 98 02/20/23 08:14 Oxygen Delivery Method Room Air 02/20/23 08:14 BMI result Body Mass Index 29.2 Tobacco/Smoking Status: Tobacco use Status Tobacco use date assessed 02/11/23 02/20/23 08:22 Patient Tobacco Use Status Never used Tobacco 02/20/23 08:22 e-Cigarette/Vaping Use Never Used 02/20/23 08:22 Thrive Assessment: Date of Thrive Assessment Date Thrive assessed 01/17/23 02/20/23 08:22 Const General: no acute distress and well developed Nutritional Appearance: well nourished Orientation/consciousness: patient oriented x3 HENOK Head: Yes normocephalic and Yes atraumatic Eyes General: appearance normal, both eyes and all related structures Pupils: Equal, round and reactive pupils present EOM: EOMs intact bilaterally Resp Effort & Inspection: normal respiratory effort Auscultation: clear to auscultation bilaterally Cardio Rate: regular rate Rhythm: regular rhythm Heart sounds: S1 normal heart sound present, S2 normal heart sound present, no gallops, no murmurs and no rubs Neuro General: patient oriented x3 and gait normal Cranial nerves: Yes Equal, round and reactive pupils present Psych Affect: normal affect Results AMB Hemoglobin A1c AMB Hemoglobin A1c 7.2 % Last Edit by Alix Lees on 02/20/23 08:2 3 Results Reviewed Results Reviewed: Laboratory Last Values Hgb A1c (Clinic) 7.2 % (4.0-6.0) H 02/20/23 08:23 Assessment and Plan Assessment & Plan (1) Type 2 diabetes mellitus with chronic kidney disease: Code(s): E11.22 - Type 2 diabetes mellitus with diabetic chronic kidney disease Qualifiers: Chronic kidney disease stage: stage 3 (moderate) Chronic kidney disease stage 3 subtype: unspecified whether 3a or 3b Diabetes mellitus termite control service representative insulin use: with jail use Qualified Code(s): E11.22 - Type 2 diabetes mellitus with diabetic chronic kidney disease; N18.30 - Chronic kidney disease, stage 3 unspecified; Z79.4 - prison (current) use of insulin Plan: A1c has risen to 7.2% from 7.0%. Goal is less than 7.0%. Patient had recent infection; osteomyelitis and hospital stay. No changes to current regimen though I recommended he take his basal insulin in the evenings Will follow-up again in 3 months. If A1c is the same or higher, will increase insulin regimen. Medications: New alcohol swabs (Alcohol Prep Pads) 1 pad topical QID 400 ea 3RF 90 days E11.21 - Type 2 diabetes mellitus with diabetic nephropathy, Z79.4 - buttermilk drier operator (current) use of insulin Coding Level of Care Code Est Pt Level 3 (03580) Diagnoses Type 2 diabetes mellitus with stage 3 chronic kidney disease, with long-term current use of insulin, unspecified whether stage 3a or 3b CKD E11.22; N18.30; Z79.4 Chronic kidney disease stage: stage 3 (moderate) Chronic kidney disease stage 3 subtype: unspecified whether 3a or 3b Diabetes mellitus termite control service representative insulin use: with termite control service representative use
== END 2023-02-20 08:49 | disposition home or self-care (01) ==
PROVIDERS: PCP Family Medicine; Visit Provider Family Medicine
DX: E11.22 Type 2 diabetes mellitus with diabetic chronic kidney disease (principal); N18.30 Chronic kidney disease, stage 3 unspecified; Z79.4 Long term (current) use of insulin
CPT/HCPCS: 99213

== ENCOUNTER 2023-02-24 11:27 | Outpatient (REF) | payer OTHER, SELFPAY ==
[2023-02-24 12:02] LABS: MANUAL DIFF FLAG NO
[2023-02-24 12:30] LABS: Basophils Percent Auto 0.5 % (0-2); Eosinophils Absolute Auto 0.1 X10*3/uL (0.0-0.4); Eosinophils Percent Auto 1.8 % (0-4); Hematocrit 46.5 % (42.0-52.0); Hemoglobin 14.9 g/dl (14.0-18.0); Imm Gran Abs Auto 0.08 X10*3/uL (0.00-0.03); Imm Gran Pct Auto 1.3 % (0.0-0.4); Lymphocytes Absolute Auto 1.5 X10*3/uL (1.2-4.9); Lymphocytes Percent Auto 24.2 % (20-40); Mean Corpuscular Hemoglobin 29.8 pg (27.0-33.0); Mean Platelet Volume 12.5 fL (9.4-12.4); Monocytes Absolute Auto 0.7 X10*3/uL (0.1-1.2); Monocytes Percent Auto 11.7 % (2-11); Neutrophils Absolute Auto 3.6 x10*3/uL (2.0-8.3); Neutrophils Percent Auto 60.5 % (45-73); Platelet Count 142 X10*3/uL (160-400); Red Cell Distribution Width 13.9 % (11.0-16.0)
[2023-02-24 13:23] LABS: Blood Urea Nitrogen 14 mg/dL (9-16); Estimated Glomerular Filt Rate 51
== END 2023-02-24 11:28 | disposition home or self-care (01) ==
LOC: HO.HVNA 11:27
PROVIDERS: Visit Provider Internal Medicine
DX: M86.172 Other acute osteomyelitis, left ankle and foot (principal)
CPT/HCPCS: 36415; 82565; 84520; 85025

== ENCOUNTER 2023-02-27 14:17 | Outpatient (AMB) | payer OTHER, SELFPAY ==
[2023-02-27 14:37] VITALS: BP 124/84; PULSE 89; O2SAT 99; BMI 29.7
--- NOTE | 2023-02-27 14:37 | A.OFFVIS_ITS ---
Intake Vital Signs 02/27/23 14:37 Height 5 ft 9 in Weight 201 lb BMI 29.7 BP 124/84 Blood Pressure Location Lt brachial Position Sitting Pulse 89 Pulse Source Pulse Oximeter Pulse Oximetry (%) 99 Intake Visit Reasons: F/U,Hospital Visit,Cefazolin 2 gm. end date 03/02 Allergies No Known Allergies Allergy (Verified 03/06/23 09:04) HPI F/U,Hospital Visit,Cefazolin 2 gm. end date 03/02 HPI Details He says he is feeling improved. He had six weeks treatment given. [facility] Medical History MSSA bacteremia Osteomyelitis of third toe of left foot S/P angiogram of extremity (10/08/22) Diabetic ulcer of right foot Osteomyelitis Wound of right foot PAD (peripheral artery disease) Chronic right shoulder pain Multinodular goiter Testicular cancer Bleeding internal hemorrhoids Seminoma Paresthesia and pain of extremity Type 2 diabetes mellitus with hyperglycemia, with long-term current use of insulin Type 2 diabetes mellitus with chronic kidney disease Hyperlipidemia Vaccination refused by patient Refused pneumococcal vaccination Anemia in stage 4 chronic kidney disease Acute proliferative glomerulonephritis Secondary hyperparathyroidism of renal origin Mixed dyslipidemia Peripheral vascular disease Carpal tunnel syndrome on left Diabetes mellitus with diabetic nephropathy, with long-term current use of insulin Osteomyelitis of left foot Diabetes mellitus with foot ulcer End-stage renal disease on hemodialysis Surgical History History of amputation (01/19/23) Amputated toe of right foot (10/13/22) History of kidney transplant Kidney transplant recipient Family History Father Unknown family medical history Mother Diabetes mellitus HTN (hypertension) CVD (cardiovascular disease) History of CVA (cerebrovascular accident) Stroke Sister Diabetes mellitus Daughter No problems noted. Sister No problems noted. Sister No problems noted. Social History Household Members: Spouse and Children Housing: House Do you presently have visiting nurse or other home services: No Alcohol intake: never Patient Tobacco Use Status: Never used Tobacco e-Cigarette/Vaping Use: Never Used Advance Directives Date on File: 01/16/23 service: No Current occupational status: disabled Current occupation: disability - kidney transplant. Left side dominant Cognitive needs: No Hearing needs: No Vision needs: No Review of Systems Const All systems reviewed & are unremarkable except as noted in HPI and below Physical Exam Vital Signs: Last Vital Signs Pulse 89 02/27/23 14:37 BP 124/84 02/27/23 14:37 Pulse Ox 99 02/27/23 14:37 BMI result Body Mass Index 29.7 Const General: cooperative Orientation/consciousness: patient oriented x3 HEENT Head: Yes normal to inspection Mouth: Normal oral and palatal mucosa present Eyes General: appearance normal, both eyes and all related structures Pupils: Equal, round and reactive pupils present Resp Effort & Inspection: normal respiratory effort Cardio Rate: regular rate Rhythm: regular rhythm GI Palpation (GI): Soft to palpation and nontender General: Yes no CVA tenderness Back/Spine/Pelvis Back: no CVA tenderness Skin General skin exam: no rashes or lesions noted Neuro General: patient oriented x3 Cranial nerves: Yes CN's II-XII intact bilaterally and Yes Equal, round and reactive pupils present Extrem Other: some improvement foot General: Yes normal to inspection Psych Appearance: grossly normal Assessment & Plan Assessment & Plan (1) Osteomyelitis: Comment: He has finished six weeks therapy. Code(s): M86.9 - Osteomyelitis, unspecified Plan: Pull PICC line. Followup as needed. (2) MSSA bacteremia: Comment: MSSA bacteremia Affected bone removed foot sourc Follow up echo. Done Kefzol 03/02 six weeks in case residual osteomyelitis. Code(s): R78.81 - Bacteremia; B95.61 - Methicillin susceptible Staphylococcus aureus infection as the cause of diseases classified elsewhere Orders: Orders IR cvc remove any age 0903/03/23 M86.9 - Osteomyelitis, unspecified Coding Level of Care Code Est Pt Level 3 (60940) Diagnoses Osteomyelitis M86.9 MSSA bacteremia R78.81; B95.61
== END 2023-02-27 16:01 | disposition home or self-care (01) ==
LOC: HO.HID 14:17
PROVIDERS: PCP Family Medicine; Visit Provider Internal Medicine
DX: M86.9 Osteomyelitis, unspecified (principal); R78.81 Bacteremia; B95.61 Methicillin susceptible Staphylococcus aureus infection as the cause of diseases classified elsewhere
CPT/HCPCS: 99213

== ENCOUNTER → 2023-02-27 14:17 | Outpatient (BNVA) | payer OTHER, SELFPAY | PROVIDERS: PCP Family Medicine; Visit Provider Internal Medicine | DX: M86.9 Osteomyelitis, unspecified (principal); R78.81 Bacteremia; B95.61 Methicillin susceptible Staphylococcus aureus infection as the cause of diseases classified elsewhere | CPT/HCPCS: 99212 ==

== ENCOUNTER 2023-03-06 08:32 | Outpatient (AMB) | payer OTHER, SELFPAY ==
--- NOTE | 2023-03-06 09:01 | A.OFFVIS_ITS ---
Intake Vital Signs 03/06/23 09:04 Height 5 ft 9 in Weight 200 lb 2.876 oz BMI 29.6 BP 122/82 Blood Pressure Location Lt brachial Position Sitting Intake Visit Reasons: 1 mth follow up 3rd toe amputation Intake Note: Patient is seen in office for one month follow up visit, post 3rd toe amputation. 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: No Accompanied by: Self / Same As Patient Allergies No Known Allergies Allergy (Verified 03/06/23 09:04) Medication List - Last Reconciled 03/06/23 by Joseph Verde MD [16 inch grab bar As directed] alcohol swabs (Alcohol Prep Pads) 1 pad topical QID 90 days amlodipine 5 mg PO DAILY apixaban 5 mg PO BID [bed assist handle As directed] calcifediol ER (Rayaldee) 30 mcg PO BEDTIME cefazolin in 0.9% sod chloride 2 gram/100 mL 100 mL IV Q8H 22 days emollient combination no.71 (Lubriderm Advanced Therapy lotion) 1 ea topical BID-QID 30 days insulin aspart U-100 (Novolog FlexPen U-100 Insulin aspart) 8 units subcut TIDAC insulin glargine (Lantus Solostar U-100 Insulin) 26 units subcut BEDTIME lancets (FreeStyle Lancets) As directed mirtazapine 7.5 mg PO BEDTIME mycophenolate sodium 540 mg PO BID pen needle, diabetic As directed rosuvastatin 10 mg PO BEDTIME tacrolimus 3 mg (3 x 1 mg) PO BID [transport wheelchair As directed] valsartan 40 mg PO DAILY walker (Ultra-Light Rollator misc) As directed HPI HPI Comments History of Present Illness Details 52-year-old male patient returning [facility] recent hospitalization for osteomyelitis of the left 3rd toe. He is status post partial amputation of the left 3rd toe 01/19/2023. He tolerated the procedure well and underwent IV antibiotic treatments on a daily basis via PICC line which he has now completed. He feels well and denies any foot symptoms. He is awaiting surgery on the great toe for bunion. He denies any new foot problems. [facility] Medical History MSSA bacteremia Osteomyelitis of third toe of left foot S/P angiogram of extremity (10/08/22) Diabetic ulcer of right foot Osteomyelitis Wound of right foot PAD (peripheral artery disease) Chronic right shoulder pain Multinodular goiter Testicular cancer Bleeding internal hemorrhoids Seminoma Paresthesia and pain of extremity Type 2 diabetes mellitus with hyperglycemia, with long-term current use of insulin Type 2 diabetes mellitus with chronic kidney disease Hyperlipidemia Vaccination refused by patient Refused pneumococcal vaccination Anemia in stage 4 chronic kidney disease Acute proliferative glomerulonephritis Secondary hyperparathyroidism of renal origin Mixed dyslipidemia Peripheral vascular disease Carpal tunnel syndrome on left Diabetes mellitus with diabetic nephropathy, with long-term current use of insulin Osteomyelitis of left foot Diabetes mellitus with foot ulcer End-stage renal disease on hemodialysis Surgical History History of amputation (01/19/23) Amputated toe of right foot (10/13/22) History of kidney transplant Kidney transplant recipient Family History Father Unknown family medical history Mother Diabetes mellitus HTN (hypertension) CVD (cardiovascular disease) History of CVA (cerebrovascular accident) Stroke Sister Diabetes mellitus Daughter No problems noted. Sister No problems noted. Sister No problems noted. Social History Household Members: Spouse and Children Housing: House Do you presently have visiting nurse or other home services: No Alcohol intake: never Patient Tobacco Use Status: Never used Tobacco e-Cigarette/Vaping Use: Never Used Advance Directives Date on File: 01/16/23 service: No Current occupational status: disabled Current occupation: disability - kidney transplant. Left side dominant Cognitive needs: No Hearing needs: No Vision needs: No Physical Exam Const General: no acute distress Nutritional Appearance: well nourished Orientation/consciousness: patient oriented x3 Limitations: no limitations Neuro General: patient oriented x3 Extrem Other: Left 3rd toe wounds are completely healed with no evidence of wound separation or erythema. No new foot wounds are identified. Assessment & Plan Assessment & Plan (1) Osteomyelitis: Code(s): M86.9 - Osteomyelitis, unspecified Plan 52-year-old male patient with a nonhealing wound of the left 3rd toe due to osteomyelitis status post partial amputation approximately 1 month ago (01/19/2023). He tolerated the procedure well and his wounds are now well healed. He should follow up as needed. He will continue follow-up with his substance addiction coordinator for nail care. Coding Level of Care Code Global (17605) Diagnoses Osteomyelitis M86.9
[2023-03-06 09:04] VITALS: BP 122/82; BMI 29.6
== END 2023-03-06 09:04 | disposition home or self-care (01) ==
PROVIDERS: PCP Family Medicine; Visit Provider Surgery
DX: M86.9 Osteomyelitis, unspecified (principal)
CPT/HCPCS: 99024

== ENCOUNTER → 2023-03-06 08:32 | Outpatient (BNVA) | payer OTHER, SELFPAY | PROVIDERS: PCP Family Medicine; Visit Provider Surgery ==

== ENCOUNTER 2023-04-20 | Outpatient (RCR) | payer OTHER, SELFPAY | END 2023-09-21 11:50 | disposition home or self-care (01) | LOC: HO.WCC | PROVIDERS: PCP Family Medicine; Visit Provider Physician Assistant | DX: E11.621 Type 2 diabetes mellitus with foot ulcer (principal); L97.512 Non-pressure chronic ulcer of other part of right foot with fat layer exposed; E11.40 Type 2 diabetes mellitus with diabetic neuropathy, unspecified; I25.2 Old myocardial infarction; Z94.0 Kidney transplant status; Z86.73 Personal history of transient ischemic attack (TIA), and cerebral infarction without residual deficits; Z92.3 Personal history of irradiation; Z92.21 Personal history of antineoplastic chemotherapy | CPT/HCPCS: 11042; 97597; 99212 ==

== ENCOUNTER 2023-04-30 12:50 | Outpatient (AMB) | payer OTHER, SELFPAY ==
[2023-04-30 13:01] VITALS: BP 118/70; PULSE 77; RESP 13; TEMP 36.8; O2SAT 99; BMI 31.0
--- NOTE | 2023-04-30 13:01 | A.OFFPC_ITS ---
Vital Signs 04/30/23 13:01 Height 5 ft 9 in Weight 210 lb 2 oz BMI 31.0 BP 118/70 Blood Pressure Location Rt brachial Position Sitting Respiration 13 Pulse 77 Pulse Source Pulse Oximeter Temp 98.2 F Temp Source Temporal Artery Scan Pulse Oximetry (%) 99 Oxygen Delivery Method Room Air Intake Visit Reasons: 05/06 Right Foot Ulceration Surgery Intake Note: Patient states that he needs an order put in for diabetic shoe sent over Ajay blanchard. 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 Procedure: R foot ulceration surgery Date: 05/06/23 Surgeon: CLARENCE Surgeon Anesthesia: General Cardiac Hx: None Pulmonary Hx: None Prior Surgical complications: None Prior Anesthesia Complications: None Coag Issues: None Functional Reading: Able to walk 3 city blocks. Can do flight of stairs without getting winded. [facility] Medical History MSSA bacteremia Osteomyelitis of third toe of left foot S/P angiogram of extremity (10/08/22) Diabetic ulcer of right foot Osteomyelitis Wound of right foot PAD (peripheral artery disease) Chronic right shoulder pain Multinodular goiter Testicular cancer Bleeding internal hemorrhoids [place]in[place] Paresthesia and pain of extremity Type 2 diabetes mellitus with hyperglycemia, with long-term current use of insulin Type 2 diabetes mellitus with chronic kidney disease Hyperlipidemia Vaccination refused by patient Refused pneumococcal vaccination Anemia in stage 4 chronic kidney disease Acute proliferative glomerulonephritis Secondary hyperparathyroidism of renal origin Mixed dyslipidemia Peripheral vascular disease Carpal tunnel syndrome on left Diabetes mellitus with diabetic nephropathy, with long-term current use of insulin Osteomyelitis of left foot Diabetes mellitus with foot ulcer End-stage renal disease on hemodialysis Surgical History History of amputation (01/19/23) Amputated toe of right foot (10/13/22) History of kidney transplant Kidney transplant recipient Family History Father Unknown family medical history Mother Diabetes mellitus HTN (hypertension) CVD (cardiovascular disease) History of CVA (cerebrovascular accident) Stroke Sister Diabetes mellitus Daughter No problems noted. Sister No problems noted. Sister No problems noted. Social History Household Members: Spouse and Children Housing: House Do you presently have visiting nurse or other home services: No Alcohol intake: never Patient Tobacco Use Status: Never used Tobacco e-Cigarette/Vaping Use: Never Used Advance Directives Date on File: 01/16/23 service: No Current occupational status: disabled Current occupation: disability - kidney transplant. Left side dominant Cognitive needs: No Hearing needs: No Vision needs: No Questionnaire Thrive Questionnaire Date Thrive assessed: 01/17/23 Review of Systems Const Denies chills, Denies fatigue, Denies fever(s), Denies headache(s) and Denies weakness ENT Denies dizziness and Denies headache(s) Card Denies chest pain, Denies lightheadedness, Denies dyspnea and Denies other (Palpitations) Resp Denies cough, Denies dyspnea, Denies wheezing and Denies other ( shortness of breath) Musc Denies numbness and Denies tingling Neuro Denies dizziness, Denies headache(s), Denies numbness, Denies tingling, Denies paresthesias and Denies weakness Psych Denies anxiety and Denies depression Endo Denies fatigue Aller/Immun Denies wheezing Physical exam (Primary Care) Vital Signs: Last Vital Signs Temp 98.2 F 04/30/23 13:01 Pulse 77 04/30/23 13:01 Resp 13 04/30/23 13:01 BP 118/70 04/30/23 13:01 Pulse Ox 99 04/30/23 13:01 Oxygen Delivery Method Room Air 04/30/23 13:01 BMI result Body Mass Index 31.0 Tobacco/Smoking Status: Tobacco use Status Tobacco use date assessed 02/11/23 04/30/23 13:03 Patient Tobacco Use Status Never used Tobacco 04/30/23 13:03 e-Cigarette/Vaping Use Never Used 04/30/23 13:03 Thrive Assessment: Date of Thrive Assessment Date Thrive assessed 01/17/23 04/30/23 13:03 Const General: no acute distress and well developed Nutritional Appearance: well nourished Orientation/consciousness: patient oriented x3 [facility] Head: Yes normocephalic and Yes atraumatic Eyes General: appearance normal, both eyes and all related structures Pupils: Equal, round and reactive pupils present EOM: EOMs intact bilaterally Resp Effort & Inspection: normal respiratory effort Auscultation: clear to auscultation bilaterally Cardio Rate: regular rate Rhythm: regular rhythm Heart sounds: S1 normal heart sound present, S2 normal heart sound present, no gallops, no murmurs and no rubs Neuro General: patient oriented x3 and gait normal Cranial nerves: Yes Equal, round and reactive pupils present Psych Affect: normal affect Assessment and Plan Assessment & Plan (1) Pre-operative clearance: Code(s): Z01.818 - Encounter for other preprocedural examination Plan: 53-year-old?patient?with?a?history?of?diabetes?with?diabetic?nephropathy?and?sta ge?4?chronic?kidney ?disease?as?well?as?renal?transplant?and?peripheral?vascular?disease?with?right? foot?osteomyelitis, presents?for?preoperative?clearance?prior?to?right?foot?surgery?for?vascular?ulc ers?and?osteomyelitis. No?history?of?coronary?artery?disease?though?patient?does?have?some?significant? risk?factors. Cardiac?exam?today?was?within?normal?limits EKG: ?Normal?sinus?rhythm?with?mild?left?axis?deviation.?? No?hypertrophy,?no?ST-T-wave?changes No?history?of?pulmonary?disease?and?pulmonary?exam?is?normal?today. No?history?of?surgical?or?anesthesia?complications. No?bleeding/clotting?disorders Good?functional?reserve Intermediate?risk?patient?for?low?intermediate?risk?procedure. Currently optimized. no?contraindications?to?proceeding?with?proposed?procedure He?will?hold?apixaban?prior?to?surgery Orders: Orders AMB EKG-In Office 04/30/23 Z01.818 - Encounter for other preprocedural exam ination Complete Blood Count Auto Diff Today M86.9 - Osteomyelitis, unspecified, Z00.00 - Encounter for general adult medical examination without abnormal findings Basic Metabolic Panel Today M86.9 - Osteomyelitis, unspecified, Z00.00 - Encounter for general adult medical examination without abnormal findings Coding Level of Care Code Est Pt Level 3 (32964) Diagnoses Pre-operative clearance Z01.818
== END 2023-04-30 14:20 | disposition home or self-care (01) ==
PROVIDERS: PCP Family Medicine; Visit Provider Family Medicine
DX: Z01.818 Encounter for other preprocedural examination (principal)
CPT/HCPCS: 99213

== ENCOUNTER 2023-05-01 09:27 | Outpatient (REF) | payer OTHER, SELFPAY ==
[2023-05-01 11:24] LABS: MANUAL DIFF FLAG NO
[2023-05-01 11:25] LABS: Basophils Percent Auto 0.4 % (0-2); Eosinophils Absolute Auto 0.1 X10*3/uL (0.0-0.4); Eosinophils Percent Auto 1.1 % (0-4); Hematocrit 44.5 % (42.0-52.0); Hemoglobin 14.4 g/dl (14.0-18.0); Imm Gran Abs Auto 0.13 X10*3/uL (0.00-0.03); Imm Gran Pct Auto 1.4 % (0.0-0.4); Lymphocytes Absolute Auto 1.7 X10*3/uL (1.2-4.9); Lymphocytes Percent Auto 18.2 % (20-40); Mean Corpuscular HGB Conc 32.4 g/dl (31.0-36.0); Mean Corpuscular Hemoglobin 29.6 pg (27.0-33.0); Mean Corpuscular Volume 91.4 fL (80.0-98.0); Mean Platelet Volume 11.7 fL (9.4-12.4); Monocytes Absolute Auto 1.1 X10*3/uL (0.1-1.2); Monocytes Percent Auto 12.4 % (2-11); Neutrophils Absolute Auto 6.1 x10*3/uL (2.0-8.3); Neutrophils Percent Auto 66.5 % (45-73); Platelet Count 193 X10*3/uL (160-400); Red Blood Count 4.87 X10*6/uL (4.60-5.80); Red Cell Distribution Width 12.9 % (11.0-16.0); White Blood Count 9.1 X10*3/uL (4.8-10.8)
[2023-05-01 11:58] LABS: Anion Gap 10 (12-20); Blood Urea Nitrogen 15 mg/dL (9-16); Calcium 9.1 mg/dL (8.4-10.2); Carbon Dioxide 29 mmol/L (22-29); Chloride 103 mmol/L (96-108); Estimated Glomerular Filt Rate 50; Glucose Random 195 mg/dL (60-115); Potassium 3.8 mmol/L (3.3-5.1); Sodium 138 mmol/L (135-145)
== END 2023-05-01 09:28 | disposition home or self-care (01) ==
LOC: HO.WFDLDS 09:27
PROVIDERS: Visit Provider Family Medicine
DX: Z00.00 Encounter for general adult medical examination without abnormal findings (principal); M86.9 Osteomyelitis, unspecified
CPT/HCPCS: 36415; 80048; 85025

== ENCOUNTER 2023-07-13 07:46 | Outpatient (REF) | payer OTHER, SELFPAY ==
--- NOTE | ~2023-07-13 | US_ITS ---
EXAMINATION: Noninvasive assessment of the bilateral lower extremities with ARTERIAL DUPLEX and ANKLE BRACHIAL INDICES (ABIs). CLINICAL INFORMATION: Peripheral vascular disease TECHNIQUE: Duplex Doppler techniques with waveform analysis and measurement of velocities in the bilateral common femoral, profunda femoris, superficial femoral, popliteal and tibial arteries were performed. Additionally, ankle pulse volume recordings, ankle pressure measurements and ankle brachial indices were obtained of the lower extremity arterial system bilaterally. The study was performed only at rest. COMPARISON: 12/17/2022 FINDINGS: DIRECT DUPLEX DOPPLER FINDINGS: RIGHT LEG: Common femoral artery: 117 cm/s, phasicity: Triphasic Profunda femoris artery: 142 cm/s, phasicity: Triphasic Superficial femoral artery (proximal): 107 cm/s, phasicity: Triphasic Superficial femoral artery (mid): 116 cm/s, phasicity: Triphasic Superficial femoral artery (distal): 86.4 cm/s, phasicity: Biphasic Popliteal artery: 117 cm/s, phasicity: Triphasic Posterior tibial artery: 30.9 cm/s, phasicity: Monophasic Peroneal artery: Not visualized Anterior tibial artery: 66.8 cm/s, phasicity: Monophasic Dorsalis pedis artery: 40.5 cm/s, phasicity:Monophasic LEFT LEG: Common femoral artery: 120 cm/s, phasicity: Triphasic Profunda femoris artery: 113 cm/s, phasicity: Triphasic Superficial femoral artery (proximal): 110 cm/s, phasicity: Triphasic Superficial femoral artery (mid): 116 cm/s, phasicity: Triphasic Superficial femoral artery (distal): 99.8 cm/s, phasicity: Triphasic. Mild calcified plaque Popliteal artery: 77.8 cm/s, phasicity: Triphasic Posterior tibial artery: 29.5 cm/s, phasicity: Monophasic Peroneal artery: 84.4 cm/s, phasicity: Monophasic Anterior tibial artery: 90.3 cm/s, phasicity: Monophasic Dorsalis pedis artery: 24.8 cm/s, phasicity: Monophasic ANKLE-BRACHIAL INDEX: Right: 1.22?, previously 1.24 Left: 1.31, previously 1.3 ANKLE PRESSURES: Right: PT 113, DP 153 Left: PT?133, DP?164 ANKLE PVR WAVEFORMS: Right: Abnormal Left: Abnormal US/US arterial duplex LE BI IMPRESSION: Right leg: Normal ankle brachial index however there are dampened monophasic waveforms throughout the below-knee runoff vessels consistent with small vessel disease likely related to diabetes mellitus. Ankle-brachial index may be falsely elevated due to noncompressible vessels Left leg:Normal ankle brachial index however there are dampened monophasic waveforms throughout the below-knee runoff vessels consistent with small vessel disease likely related to diabetes mellitus. Ankle-brachial index may be falsely elevated due to noncompressible vessels NOY Reference: - >1.4 = calcified vessels - 0.9 - 1.4 = normal - no significant arterial disease - 0.7 - 0.89 = mild peripheral arterial disease - 0.51 - 0.69 = moderate peripheral arterial disease - ? 0.50 = severe peripheral arterial disease - < .30 = critical arterial disease
== END 2023-07-13 07:47 | disposition home or self-care (01) ==
LOC: HO.US 07:46
PROVIDERS: PCP Family Medicine; Visit Provider Surgery Vascular Surgery
DX: I73.9 Peripheral vascular disease, unspecified (principal)
CPT/HCPCS: 93923; 93925

== ENCOUNTER 2023-08-04 22:57 | Inpatient (IN) | payer OTHER, SELFPAY ==
--- NOTE | ~2023-08-04 | IR_ITS ---
CLINICAL HISTORY: IV antibiotics. End-stage renal disease status post transplant. Occluded neck veins bilaterally. PROCEDURES: 1. Real-time ultrasound guided access into the right subclavian vein after documentation of selective vessel patency, and permanent imaging storing in the patient records. 2. Placement of a 5 Fr, 28 cm tunneled, single power injectable Alston CLINICIAN: Geoff Lucas PA-C MEDICATIONS: -Lidocaine 1% 10 ml, SQ. -Additional details, please see nursing flowsheet. Complications: None. Estimated blood loss: <5 ml Specimens: None. Contrast: None. Fluoroscopy time: 1.6 min PROCEDURE NOTE: The procedure, risks, benefits, and alternatives were carefully explained to the patient and written informed consent was obtained. The patient was placed supine on the fluoroscopy table. A timeout was performed. Preliminary ultrasound imaging demonstrated no usable cervical veins. The right chest was prepped and draped in usual sterile fashion. Local anesthesia was administered to the right chest access site with lidocaine. Under ultrasound guidance, the right subclavian vein was accessed with a 5 fr micropuncture set. A permanent ultrasound picture was saved. A peel-away sheath was advanced over the wire. The catheter was measured and cut to length. Next, subcutaneous lidocaine was administered to the chest. Using blunt dissection, a subcutaneous tunnel was created that connects from the upper chest to the venotomy site. The catheter was pulled through the tunnel. The catheter was advanced through the sheath, which was subsequent peeled away. The catheter was tested, flushed, and sutured to the skin with its tip in the cavoatrial junction. The venotomy site was closed with surgical glue. A dry sterile dressing was applied to the chest and the venotomy site. A permanent chest fluoroscopic image was saved demonstrating the catheter tip in the cavoatrial junction. The patient was stable after the procedure was transferred back to the floor. IR/IR cvc insert central tunnel IMPRESSION: Placement of a tunneled single lumen Alston catheter PLAN: -The catheter may be used immediately. This procedure was performed by Geoff Lucas PA-C, and supervised by Dr. Lord
--- NOTE | ~2023-08-04 | XR_ITS ---
EXAMINATION: XR FOOT, RIGHT CLINICAL INFORMATION: Open wound big toe, fever. COMPARISON: Radiograph right foot 10/06/2022. TECHNIQUE: AP, lateral, and oblique views of the right foot. FINDINGS: Redemonstration of erosive changes in the distal third metatarsal and base of the third proximal phalanx, decreased compared to 10/06/2022. New erosive changes and cortical disruption along the tuft of the distal phalanx of the first toe with surrounding soft tissue swelling and ulceration. Postsurgical changes from amputation at the level of the fourth MTP joint. Moderate calcaneal spurring. Diffuse soft tissue swelling. Scattered vascular calcifications. XR/XR foot RT min 3V IMPRESSION: 1. New erosive changes and cortical disruption along the tuft of the distal phalanx of the first toe with surrounding soft tissue swelling and ulceration. Findings are most consistent with osteomyelitis. 2. Decreased erosive changes in the distal third metatarsal and base of the third proximal phalanx.
[2023-08-04 23:32] VITALS: BP 143/89; PULSE 89; RESP 18; TEMP 37.3; O2SAT 100; BMI 32.1
[2023-08-04 23:45] LABS: Basophils Percent Auto 0.3 % (0-2); Eosinophils Absolute Auto 0.1 X10*3/uL (0.0-0.4); Hematocrit 45.1 % (42.0-52.0); Hemoglobin 14.8 g/dl (14.0-18.0); Imm Gran Abs Auto 0.07 X10*3/uL (0.00-0.03); Imm Gran Pct Auto 0.7 % (0.0-0.4); Lymphocytes Absolute Auto 2.3 X10*3/uL (1.2-4.9); Lymphocytes Percent Auto 23.9 % (20-40); MANUAL DIFF FLAG NO; Mean Corpuscular HGB Conc 32.8 g/dl (31.0-36.0); Mean Corpuscular Volume 88.3 fL (80.0-98.0); Monocytes Absolute Auto 1.1 X10*3/uL (0.1-1.2); Monocytes Percent Auto 11.6 % (2-11); Neutrophils Absolute Auto 6.1 x10*3/uL (2.0-8.3); Neutrophils Percent Auto 62.5 % (45-73); Platelet Count 214 X10*3/uL (160-400); Red Blood Count 5.11 X10*6/uL (4.60-5.80); Red Cell Distribution Width 12.6 % (11.0-16.0); White Blood Count 9.8 X10*3/uL (4.8-10.8)
[2023-08-05] LABS: Alanine Aminotransferase 10 U/L (0-40); Alkaline Phosphatase 128 U/L (39-117); Anion Gap 16 (12-20); Aspartate Amino Transferase 18 U/L (5-37); Bilirubin Total 0.3 mg/dL (0.0-1.0); Blood Urea Nitrogen 19 mg/dL (9-16); Carbon Dioxide 18 mmol/L (22-29); Chloride 108 mmol/L (96-108); Creatinine Clr Calc Pharmacy 57.4; Estimated Glomerular Filt Rate 41; Glucose Random 95 mg/dL (60-115); Potassium 3.7 mmol/L (3.3-5.1); Sodium 138 mmol/L (135-145)
--- NOTE | 2023-08-05 01:52 | ED_ITS ---
HPI - Skin/Abscess/Foreign Bdy General Chief complaint: Skin/Abscess/Foreign Body Stated complaint: rt big toe ulcer Time Seen by Provider: 08/05/23 00:50 Source: patient Mode of arrival: ambulatory Limitations: no limitations History of Present Illness HPI narrative: Patient comes to the emergency room complaining of an ulceration to his great toe on the right foot. Patient states that he has been having a chronic wound for several months, used to go to the wound clinic. However, over the last few days he noticed that there was an ulcer on the tip of his great toe. Patient states that today he had a fever 100.6 at home, his made him come to the emergency room. Patient states that he has had osteomyelitis in the past and has had toe amputations on the left foot. Related Data Home Medications ?Medication ?Instructions ?Recorded ?Confirmed calcifediol 30 mcg capsule,24 30 mcg PO BEDTIME 03/14/20 11/04/23 hr,extended release (Rayaldee) pen needle, diabetic 31 gauge x #50 ea 06/05/20 11/04/2308/28 apixaban 5 mg tablet 5 mg PO BID 10/12/20 11/04/23 lancets 28 gauge (FreeStyle #100 ea 06/26/21 11/04/23 Lancets) everolimus (immunosuppressive) 1 2 mg PO BID 08/05/23 11/04/23 mg tablet mycophenolate sodium 180 mg 540 mg PO BID 08/05/23 11/04/23 tablet,delayed release rosuvastatin 10 mg tablet 10 mg PO BEDTIME 08/05/23 11/04/23 Previous Rx's ?Medication ?Instructions ?Recorded mirtazapine 7.5 mg tablet 7.5 mg PO BEDTIME #30 tabs 09/23/23 diabetic supplies, miscellan. #1 ea 09/25/23 insulin glargine 100 unit/mL (3 20 unit (0.2 mL) subcut BEDTIME 30 10/09/23 mL) subcutaneous pen (Lantus days #6 mL Solostar U-100 Insulin) dapagliflozin propanediol 5 mg 5 mg PO QAM 90 days #90 tabs 11/13/23 tablet (Farxiga) insulin aspart U-100 100 unit/mL 5 unit (0.05 mL) subcut TIDAC 30 06/27/24 (3 mL) subcutaneous pen (Novolog days #6 mL FlexPen U-100 Insulin aspart) cephalexin 500 mg capsule 500 mg PO Q8H #15 caps 12/28/23 Allergies Allergy/AdvReac Type Severity Reaction Status Date / Time No Known Allergies Allergy Verified 12/28/23 09:00 Review of Systems 2 Review of Systems: Constitutional : No Weight loss, No Fever, No Chills, No Night Sweats, No Fatigue, No Malaise ENT/Mouth : No Hearing loss, No Ear Pain, No Nasal Congestion, No Sinus Pain, No Hoarseness, No sore throat, No Rhinorrhea, No Swallowing Difficulty Eyes: No Eye Pain, No Swelling, No Redness, No Foreign Body, No Discharge, No Vision Changes Cardiovascular : No Chest Pain, No SOB, No Dyspnea on Exertion, No Orthopnea, No Edema, No Palpitations Respiratory : No Cough, No Sputum, No Wheezing, No Smoke Exposure, No Dyspnea Gastrointestinal : No Nausea, No Vomiting, No Diarrhea, No Constipation, No abdominal Pain, No Hematochezia, No Melena Genitourinary : no irregular bleeding, No Dysuria, No Urinary Frequency, No Hematuria, No Urinary Incontinence, No Urgency, No Flank Pain, No Urinary Flow Changes, No Hesitancy Musculoskeletal : No joint pain, No Myalgias, No Joint Swelling Skin : You foot ulcer right great toe Neuro : No Weakness, No Numbness, No Paresthesias, No Loss of Consciousness, No Dizziness, No Headache Psych : No Anxiety/Panic, No Depression, No SI/HI/AH/VH, No Social Issues, Heme/Lymph: No Bruising, No Bleeding,No Lymphadenopathy Endocrine : No Polyuria, No Polydipsia, No Temperature Intolerance [facility] Past Medical History Medical History (Updated 12/28/23 @ 09:25 by Meaghan Lara PA-C) HTN (hypertension) PAD (peripheral artery disease) CKD (chronic kidney disease) stage 3, GFR 30-59 ml/min MSSA bacteremia Osteomyelitis of third toe of left foot S/P angiogram of extremity (10/08/22) Diabetic ulcer of right foot Osteomyelitis Wound of right foot Chronic right shoulder pain Multinodular goiter Testicular cancer Bleeding internal hemorrhoids Seminoma Paresthesia and pain of extremity Type 2 diabetes mellitus with hyperglycemia, with long-term current use of insulin Type 2 diabetes mellitus with chronic kidney disease Hyperlipidemia Vaccination refused by patient Refused pneumococcal vaccination Anemia in stage 4 chronic kidney disease Acute proliferative glomerulonephritis Secondary hyperparathyroidism of renal origin Mixed dyslipidemia Peripheral vascular disease Carpal tunnel syndrome on left Diabetes mellitus with diabetic nephropathy, with long-term current use of insulin Osteomyelitis of left foot Diabetes mellitus with foot ulcer End-stage renal disease on hemodialysis Surgical History Renal transplant recipient History of amputation (01/19/23) Amputated toe of right foot (10/13/22) History of kidney transplant Kidney transplant recipient Family History Family History Father Unknown family medical history Mother Diabetes mellitus HTN (hypertension) CVD (cardiovascular disease) History of CVA (cerebrovascular accident) Stroke Sister Diabetes mellitus Daughter No problems noted. Sister No problems noted. Sister No problems noted. Social History Social History Household Members: Family Housing: House Do you presently have visiting nurse or other home services: No Alcohol intake: never Patient Tobacco Use Status: Never used Tobacco e-Cigarette/Vaping Use: Never Used Advance Directives Date on File: 01/16/23 service: No Current occupational status: disabled Current occupation: disability - kidney transplant. Left side dominant Cognitive needs: No Hearing needs: No Vision needs: No Physical Exam 2 Vital Signs: Vital Signs: Last Vital Signs Temp 97.1 F 08/11/23 07:28 Pulse 62 08/11/23 07:28 Resp 18 08/11/23 07:28 BP 148/67 H 08/11/23 07:28 Pulse Ox 100 08/11/23 07:28 O2 Del Method Room Air 08/11/23 07:28 BMI result Body Mass Index 32.1 Const: Other: Appearance: Alert. Oriented X3. No acute distress. Eyes: Pupils equal, round and reactive to light. ENT: Pharynx normal. Neck: Normal inspection. Neck supple. No lymph nodes noted. No crepitus CVS: Normal heart rate and rhythm. Pulses normal. Normal S1 and S2 Respiratory: No respiratory distress. Breath sounds normal. No Wheezing. No rales Abdomen: Soft and nontender. No rigidity. No distention. Skin: Skin warm and dry. Normal skin color. Normal skin turgor. Patient has an ulcer with a 2 mm x 2 mm foramen at the tip of the toe. Extremities: No lower extremity edema. No Lacerations. No Rash Neuro: Oriented X 3. No motor deficit. No sensory deficit. Moving all extremities. No slurred speech. CN 2 through 12 grossly intact Psych: calm, cooperative, normal affect Medications Administered Discontinued Medications Generic Name Dose Route Start Last Admin Trade Name Freq PRN Reason Stop Dose Admin Amlodipine Besylate 5 mg 08/05/23 09:00 08/11/23 08:34 Amlodipine Besylate 5 Mg Tablet PO 5 mg DAILY VERNA Administration Protocol Apixaban 5 mg 08/05/23 09:00 08/09/23 10:41 Apixaban 5 Mg Tablet PO Not Given BID VERNA Apixaban 5 mg 08/11/23 09:00 08/11/23 08:38 Apixaban 5 Mg Tablet PO Not Given BID VERNA Atorvastatin Calcium 40 mg 08/05/23 21:00 08/10/23 19:47 Atorvastatin Calcium 40 Mg Tablet PO 40 mg BEDTIME VERNA Administration Sodium Chloride 1,000 mls @ 999 mls/hr 08/05/23 01:50 08/05/23 04:26 Ns IVCONT 08/05/23 02:50 Infused .Q1H1M ONE Infusion Vancomycin HCl 2,000 mg in 500 mls @ 250 mls/hr 08/05/23 01:50 08/05/23 04:41 Vancomycin/Ns IV 08/05/23 03:49 Infused ONCE ONE Infusion Piperacillin Sod/Tazobactam 50 mls @ 100 mls/hr 08/05/23 06:30 08/05/23 13:38 Sod 2.25 gm/ Sodium Chloride IV Not Given Q6H VERNA Piperacillin Sod/Tazobactam 50 mls @ 100 mls/hr 08/05/23 06:45 08/11/23 13:00 Sod 3.375 gm/ Sodium Chloride IV Infused Q6H VERNA Infusion Vancomycin HCl 1,500 mg/ 500 mls @ 333.333 mls/hr 08/06/23 07:00 08/09/23 06:32 Sodium Chloride IV Infused Q24H VERNA Infusion Vancomycin HCl 1,250 mg/ 250 mls @ 166.667 mls/hr 08/09/23 08:00 08/10/23 09:20 Sodium Chloride IV Not Given Q24H VERNA Vancomycin HCl 750 mg/ Sodium 265 mls @ 265 mls/hr 08/10/23 09:30 08/11/23 09:45 Chloride IV Infused Q12H VERNA Infusion Daptomycin 650 mg/ Sodium 63 mls @ 100 mls/hr 08/11/23 12:30 08/11/23 15:11 Chloride IV 08/11/23 13:07 Infused ONCE ONE Infusion Insulin Glargine 8 unit 08/05/23 21:00 08/10/23 19:51 Insulin Glargine,Hum.Rec.Anlog 100 Unit/Ml 10 Ml Vial SUBCUT 8 unit BEDTIME VERNA Administration Insulin Human Lispro 4 unit 08/05/23 07:30 08/11/23 10:40 Insulin Lispro 100 Unit/Ml 3 Ml Vial SUBCUT Not Given TIDAC [facility] Insulin Human Lispro 0 unit 08/05/23 07:30 08/11/23 10:40 Insulin Lispro 100 Unit/Ml 3 Ml Vial SUBCUT Not Given QIDACHS [facility] Protocol Loperamide HCl 2 mg 08/07/23 14:56 08/09/23 23:19 Loperamide Hcl 2 Mg Capsule PO 2 mg Q6H PRN Administration Diarrhea Pt Own (Everolimus 1 2 mg 08/05/23 09:00 08/11/23 08:34 Mg Tablet) PO 2 mg BID VERNA Administration Pt Own ( 540 mg 08/05/23 09:00 08/11/23 08:34 Mycophenolate Sodium PO 540 mg 180 Mg Tablet, BID VERNA Administration Delayed Release (Dr/ Ec)) Sodium Chloride 3 ml 08/05/23 08:00 08/11/23 08:34 0.9 % Sodium Chloride Flush 3 Ml Syringe IVFLUSH 3 ml QSHIFT VERNA Administration Medical Decision Making Medical Decision Making MDM Narrative: -my interpretation of x-ray: Likely osteomyelitis on the tip of the 5th toe -patient started on IV antibiotics, vancomycin and Zosyn -my interpretation of labs: White blood cell count normal. Chemistry: Creatinine 1.74 at baseline -lactic acid and blood cultures are pending. Patient's vitals are normal, no fever. Sepsis is not suspecte -I discussed the patient with our hospitalist Dr. Ness, patient being admitted Differential Diagnosis Differential Diagnoses: The differential diagnosis associated with the presentation includes (Tinnitus, abscess, osteomyelitis) Admission/Observation Consideration of admission/observation: Escalation of care including admission/observation considered Consult Healthcare Provider Management of the patient was discussed with: Hospitalist Lab Data MDM Lab Attestation statement: I reviewed the patient's lab results. 08/10/23 08:24 08/11/23 05:55 Labs: Lab Results 08/04/23 08/05/23 Range/Units 23:40 02:20 WBC 9.8 (4.8-10.8) X10*3/uL RBC 5.11 (4.60-5.80) X10*6/uL Hgb 14.8 (14.0-18.0) g/dl Hct 45.1 (42.0-52.0) % MCV 88.3 (80.0-98.0) fL MCH 29.0 (27.0-33.0) pg MCHC 32.8 (31.0-36.0) g/dl RDW 12.6 (11.0-16.0) % Plt Count 214 (160-400) X10*3/uL MPV 11.0 (9.4-12.4) fL Immature Gran % (Auto) 0.7 H (0.0-0.4) % Neut % (Auto) 62.5 (45-73) % Lymph % (Auto) 23.9 (20-40) % [place] % (Auto) 11.6 H (2-11) % Eos % (Auto) 1.0 (0-4) % Baso % (Auto) 0.3 (0-2) % Lymph # (Auto) 2.3 (1.2-4.9) X10*3/uL [place] # (Auto) 1.1 (0.1-1.2) X10*3/uL Eos # (Auto) 0.1 (0.0-0.4) X10*3/uL Baso # (Auto) 0.0 (0.0-0.2) X10*3/uL Abs Immat Gran (auto) 0.07 H (0.00-0.03) X10*3/uL Absolute Neuts (auto) 6.1 (2.0-8.3) x10*3/uL Absolute Nucleated RBC 0.000 (0.0-0.012) X10*3/uL Nucleated RBC % (auto) 0.0 (0.0-0.2) /100WBC Sodium 138 (135-145) mmol/L Potassium 3.7 (3.3-5.1) mmol/L Chloride 108 (96-108) mmol/L Carbon Dioxide 18 L (22-29) mmol/L Anion Gap 16 (12-20) BUN 19 H (9-16) mg/dL Creatinine 1.74 H (0.5-1.4) mg/dL Estim Creat Clear Calc 57.4 Estimated GFR 41 Random Glucose 95 (60-115) mg/dL Lactic Acid 0.8 (0.5-2.0) mmol/L Calcium 9.0 (8.4-10.2) mg/dL Total Bilirubin 0.3 (0.0-1.0) mg/dL AST 18 (5-37) U/L ALT 10 (0-40) U/L Alkaline Phosphatase 128 H (39-117) U/L C-Reactive Protein 2.37 H (< or = 0.50) mg/dL Total Protein 8.0 (6.5-8.0) g/dL Albumin 4.0 (3.5-5.0) g/dL Independent Interpretation I performed an independent interpretation of an: Plain X-Ray Radiology Impression Discussion of test interpretation with radiology: I have reviewed the radiologist's reading. Radiologist Impression: FINDINGS: Redemonstration of erosive changes in the distal third metatarsal and base of the third proximal phalanx, decreased compared to 10/06/2022. New erosive changes and cortical disruption along the tuft of the distal phalanx of the first toe with surrounding soft tissue swelling and ulceration. Postsurgical changes from amputation at the level of the fourth MTP joint. Moderate calcaneal spurring. Diffuse soft tissue swelling. Scattered vascular calcifications. XR/XR foot RT min 3V IMPRESSION: 1. New erosive changes and cortical disruption along the tuft of the distal phalanx of the first toe with surrounding soft tissue swelling and ulceration. Findings are most consistent with osteomyelitis. 2. Decreased erosive changes in the distal third metatarsal and base of the third proximal phalanx. Critical Care Time Critical Care Time Critical Care Time: Yes Total Critical Care Time: 60 Attestation: I have personally provided critical care time. Time includes review of lab data, radiology results, discussion with consultants, and monitoring for potential decompensation. Intervention performed as documented. Discharge Plan Discharge Clinical Impression: Osteomyelitis Qualifiers: Osteomyelitis type: other acute Osteomyelitis location: foot Laterality: right Qualified Code(s): M86.171 - Other acute osteomyelitis, right ankle and foot Patient Disposition: Admitted As Inpatient Interventions: Admission Worksheet (ED) Last Done: 08/05/23 08:05 Discharge Date/Time: 08/05/23 09:08
[2023-08-05 02:25] VITALS: BP 124/75; PULSE 71; RESP 18; TEMP 37.3; O2SAT 97
[2023-08-05] MEDS: 0.9 % Sodium Chloride 1,000 ML 999 ML IVCONT (02:28)
[2023-08-05] MEDS: vancomycin/NS 2,000 MG/500 ML PLAST..BAG 250 MG IV (02:29)
--- NOTE | 2023-08-05 02:36 | PC.NURSE ---
Dressing placed on great toe per request
[2023-08-05 02:38] LABS: Lactic Acid 0.8 mmol/L (0.5-2.0)
[2023-08-05 03:35] LABS: C Reactive Protein 2.37 mg/dL (< or = 0.50)
[2023-08-05 03:36] VITALS: BP 148/73; PULSE 80; RESP 18; O2SAT 99
--- NOTE | 2023-08-05 05:47 | PC.NURSE ---
[place] out to hospitalist. While RN reviewing the chart, it doesn't appear that the pt received the zosyn abx as intended. Per the MAR and Orders pt has only received vanco. Hospitalist made aware and RN pending new orders or advice on forward motion management
--- NOTE | 2023-08-05 06:09 | P.HPHOSP_ITS ---
History of Present Illness Date of Service: 08/05/23 Attending physician on admission: Emily Duarte Chief Complaint: Right first toe wound Raheem Castro years old man with past medical history significant for type 2 diabetes mellitus on insulin, chronic kidney disease s/p renal transplant on antirejection medications, essential hypertension and hyperlipidemia presents to the emergency department complaining of right 1st toe chronic wound that has been getting worse. He has not noted discharges from the 1. He reported fever of 100.6 at home. He has been getting care at wound clinic. He denied any chills, nausea, vomiting, dizziness or palpitations. He denied any cardiopulmonary, gastrointestinal or genitourinary symptoms. In the ED, he was found to have normal vital signs. Blood workup showed no leukocytosis. Renal function is around baseline. There are no significant electrolyte imbalances. CRP is elevated. Right foot x-ray showed new erosive changes and cortical disruption along the tuft of the distal phalanx of the 1st toe with surrounding soft tissue swelling and ulcerations -consistent with osteomyelitis. ED tx: NS 1 L bolus, vancomycin 2 g IV. Review of Systems 2 Review of Systems: All 12 systems were reviewed and normal except as noted in HPI. [facility] Medical History MSSA bacteremia Osteomyelitis of third toe of left foot S/P angiogram of extremity (10/08/22) Diabetic ulcer of right foot Osteomyelitis Wound of right foot PAD (peripheral artery disease) Chronic right shoulder pain Multinodular goiter Testicular cancer Bleeding internal hemorrhoids Seminoma Paresthesia and pain of extremity Type 2 diabetes mellitus with hyperglycemia, with long-term current use of insulin Type 2 diabetes mellitus with chronic kidney disease Hyperlipidemia Vaccination refused by patient Refused pneumococcal vaccination Anemia in stage 4 chronic kidney disease Acute proliferative glomerulonephritis Secondary hyperparathyroidism of renal origin Mixed dyslipidemia Peripheral vascular disease Carpal tunnel syndrome on left Diabetes mellitus with diabetic nephropathy, with long-term current use of insulin Osteomyelitis of left foot Diabetes mellitus with foot ulcer End-stage renal disease on hemodialysis Family History Father Unknown family medical history Mother Diabetes mellitus HTN (hypertension) CVD (cardiovascular disease) History of CVA (cerebrovascular accident) Stroke Sister Diabetes mellitus Daughter No problems noted. Sister No problems noted. Sister No problems noted. Surgical History History of amputation (01/19/23) Amputated toe of right foot (10/13/22) History of kidney transplant Kidney transplant recipient Social History Household Members: Spouse and Children Housing: House Do you presently have visiting nurse or other home services: No Alcohol intake: never Patient Tobacco Use Status: Never used Tobacco e-Cigarette/Vaping Use: Never Used Advance Directives: Yes Advance Directives on File: Yes Advance Directives Date on File: 01/16/23 service: No Current occupational status: disabled Current occupation: disability - kidney transplant. Left side dominant Cognitive needs: No Hearing needs: No Vision needs: No Meds Allergies Allergy/AdvReac Type Severity Reaction Status Date / Time No Known Allergies Allergy Verified 04/30/23 13:10 Active Medications: Current Medications Acetaminophen (Acetaminophen 325 Mg Tablet) 650 mg PO Q6H PRN PRN Reason: Pain, Mild (Pain Scale 1-3) Amlodipine Besylate (Amlodipine Besylate 5 Mg Tablet) 5 mg PO DAILY [facility]; Protocol Apixaban (Apixaban 5 Mg Tablet) 5 mg PO BID [facility] Atorvastatin Calcium (Atorvastatin Calcium 40 Mg Tablet) 40 mg PO BEDTIME [facility] Insulin Glargine (Insulin Glargine,Hum.Rec.Anlog 100 Unit/Ml 10 Ml Vial) 8 unit SUBCUT BEDTIME [facility] Insulin Human Lispro (Insulin Lispro 100 Unit/Ml 3 Ml Vial) 4 unit SUBCUT TIDAC [facility] Non-Formulary Medication (Everolimus (Immunosuppressive)) 1 mg PO BID [facility] Non-Formulary Medication (Mycophenolate Sodium) 540 mg PO BID [facility] Pharmacy Consult (Consult Rx Vancomycin Dosing) 1 each MISCELLANE DAILY PRN PRN Reason: Consult order Pharmacy Consult (Consult Rx Vancomycin Dosing) 1 each MISCELLANE DAILY PRN PRN Reason: Consult order Sodium Chloride (0.9 % Sodium Chloride Flush 3 Ml Syringe) 3 ml IVFLUSH QSHIFT [facility] Home Medications Medication Instructions Recorded Confirmed Last Taken Type calcifediol 30 mcg capsule,24 30 mcg PO BEDTIME 03/14/20 03/06/23 10/05/22 History hr,extended release (Rayaldee) mycophenolate sodium 180 mg 540 mg PO BID 1203/06/23 10/06/22 History tablet,delayed release pen needle, diabetic 31 gauge x #50 ea 06/05/20 03/06/23 Unknown History 3/16 apixaban 5 mg tablet 5 mg PO BID 10/12/20 08/05/23 10/06/22 History lancets 28 gauge (FreeStyle #100 ea 06/26/21 03/06/23 Unknown History Lancets) insulin aspart U-100 100 unit/mL 4 unit subcut TIDAC 10/26/21 08/05/23 10/06/22 History (3 mL) subcutaneous pen (Novolog FlexPen U-100 Insulin aspart) mirtazapine 7.5 mg tablet 7.5 mg PO BEDTIME 09/26/22 03/06/23 10/05/22 History rosuvastatin 10 mg tablet 10 mg PO BEDTIME 10/06/22 03/06/23 10/05/22 History amlodipine 5 mg tablet 5 mg PO DAILY 10/28/22 08/05/23 Unknown History valsartan 40 mg tablet 40 mg PO DAILY 10/28/22 03/06/23 Unknown History insulin glargine 100 unit/mL (3 8 unit subcut BEDTIME 02/20/23 08/05/23 1 Day Ago History mL) subcutaneous pen (Lantus ~08/04/23 Solostar U-100 Insulin) everolimus (immunosuppressive) 1 1 mg PO BID 08/05/23 08/05/23 Unknown History mg tablet mycophenolate sodium 180 mg 540 mg PO BID 08/05/23 08/05/23 Unknown History tablet,delayed release rosuvastatin 10 mg tablet 10 mg PO BEDTIME 08/05/23 08/05/23 Unknown History Physical Exam 2 Vital Signs and Narrative: Vital Signs: Last Vital Signs Temp 99.2 F 08/05/23 02:25 Pulse 80 08/05/23 03:36 Resp 18 08/05/23 03:36 BP 148/73 H 08/05/23 03:36 Pulse Ox 99 08/05/23 03:36 O2 Del Method Room Air 08/05/23 03:36 BMI result Body Mass Index 32.1 Constitutional - Awake and Alert, No apparent distress Eyes - PERRLA, EOMI Cardiovascular - S1S2, RRR, No edema Respiratory - Normal lung expansion, Normal respiratory effort, No respiratory distress, CTA bilaterally Gastrointestinal - NT / ND; +BS; No rebound or guarding Extremities - no calf tenderness bilaterally. Right 1st toe: Ulcer (tip) with no necrotic tissue or significant discharges. Musculoskeletal - Normal inspection, normal ROM Skin - Warm/Dry Neurological - Alert & oriented x3. Normal speech. Normal behavior. Psychological - Appropriate affect Results Labs 08/04/23 23:40 08/04/23 23:40 Labs: Laboratory Results - last 24 hr 08/04/23 08/05/23 23:40 02:20 MCV 88.3 MCH 29.0 MCHC 32.8 RDW 12.6 Plt Count 214 MPV 11.0 Immature Gran % (Auto) 0.7 H Neut % (Auto) 62.5 Lymph % (Auto) 23.9 [place] % (Auto) 11.6 H Eos % (Auto) 1.0 Baso % (Auto) 0.3 Lymph # (Auto) 2.3 [place] # (Auto) 1.1 Eos # (Auto) 0.1 Baso # (Auto) 0.0 Abs Immat Gran (auto) 0.07 H Absolute Neuts (auto) 6.1 Absolute Nucleated RBC 0.000 Nucleated RBC % (auto) 0.0 Anion Gap 16 Estim Creat Clear Calc 57.4 Estimated GFR 41 Random Glucose 95 Lactic Acid 0.8 Calcium 9.0 Total Bilirubin 0.3 AST 18 ALT 10 Alkaline Phosphatase 128 H C-Reactive Protein 2.37 H Total Protein 8.0 Albumin 4.0 Imaging Radiologist's Impressions: Impressions Foot X-Ray 08/04/23 23:44 IMPRESSION: 1. New erosive changes and cortical disruption along the tuft of the distal phalanx of the first toe with surrounding soft tissue swelling and ulceration. Findings are most consistent with osteomyelitis. 2. Decreased erosive changes in the distal third metatarsal and base of the third proximal phalanx. Assessment and Plan (1) Osteomyelitis: Qualifiers: Osteomyelitis type: other acute Osteomyelitis location: foot L aterality: right Qualified Code(s): M86.171 - Other acute osteomyelitis, right ankle and foot Status: Acute (2) HTN (hypertension): Qualifiers: Hypertension type: renovascular hypertension Qualified Code(s): I15.0 - Renovascular hypertension Status: Acute (3) Hyperlipidemia: Qualifiers: Hyperlipidemia type: pure hypercholesterolemia Qualified Code(s): E 78.00 - Pure hypercholesterolemia, unspecified Status: Acute (4) CKD (chronic kidney disease) stage 3, GFR 30-59 ml/min: Qualifiers: Chronic kidney disease stage 3 subtype: stage 3b (GFR 30-44) Qualified Code(s): N18.32 - Chronic kidney disease, stage 3b Status: Acute Plan Raheem Zamoraez years old man admitted with: * Right 1st distal phalax osteomyelitis associated with cellulitis. Admit to hospitalist service. Continue empiric IV antibiotic therapy with vancomycin and Zosyn. Blood cultures obtained -will follow results. Wound care. * Chronic kidney disease, stage 3B s/p renal transplant. Renal function stable. Continue everolimus and mycophenolate. * Type 2 diabetes mellitus. Continue treatment with Lantus, insulin lispro with meals and insulin sliding scale. Diabetic diet. * Essential hypertension. Continue amlodipine. * Atrial fibrillation. Continue Eliquis. * Hyperlipidemia. Continue statin. DVT prophylaxis: On Eliquis Code status: Full Patient will need hospitalization for at least 2 midnights for osteomyelitis treatment with IV antibiotics and wound care evaluation. Quality Stroke Does the patient have a stroke diagnosis?: No VTE Prior VTE?: No VTE Risk Level:: Medical - moderate - high VTE Device Contraindication: Treatment Not Indicated VTE Drug Contraindication: Treatment Not Indicated
[2023-08-05 08:10] LABS: Creatinine Clr Calc Pharmacy 59.5; Estimated Glomerular Filt Rate 43
[2023-08-05] MEDS: Piperacillin Sodium/Tazobactam 3.375 GM in 0.9 % Sodium Chloride 50 ML IV ×3 (08:13→18:17)
--- NOTE | 2023-08-05 08:44 | PHA.PROG ---
Admission Date/Time: August 05, 2023 03:17 Indication: Weight in k.5 kg Adjusted body weight in K.82 Serum Creatinine - Last 168 Hours 08/04/23 08/05/23 23:40 07:37 Creatinine 1.74 H 1.68 H Estimated CrCl and GFR - Last 168 Hours 08/04/23 08/05/23 23:40 07:37 Estim Creat Clear Calc 57.4 59.5 Estimated GFR 41 43 Vancomycin Loading Dose: 2,000 mg Current Vancomycin Dosing Regimen: 1,500mg Q24H Vancomycin Monitoring using AUC goal of 400 - 600 range with trough as surrogate marker: 499 Date and Time for next Vancomycin Level to be drawn: 08/07 at 05:00 Pharmacist Comments on Vancomycin Plan: Vancomycin dosing will take advantage of [employer] as a clinical decision support tool that uses Bayesian modeling to calculate individual patient's pharmacokinetic parameters and forecast the patient's drug concentration time course with the target goal AUC 24 range of 400 - 600 mg/L/hr.
[2023-08-05] MEDS: Apixaban 5 MG TABLET PO ×2 (09:14→20:46)
[2023-08-05] MEDS: amLODIPine Besylate 5 MG TABLET PO (09:14)
--- NOTE | 2023-08-05 09:24 | PHA.MEDREC ---
Pharmacy Consult ? Medication Reconciliation Pharmacy has completed the medication reconciliation. Spoke to patient and confirmed medication list. Patient no longer takes tacrolimus (replaced by everolimus), and injects 20 units of lantus at bedtime.
[2023-08-05 10:14] VITALS: BP 144/79; PULSE 79; RESP 17; TEMP 37.1; O2SAT 97
[2023-08-05] MEDS: Insulin Lispro 100 UNIT/ML 3 ML VIAL SUBCUT ×5 (11:33→20:48)
--- NOTE | 2023-08-05 11:35 | MHC.CM.PN ---
IMM delivered. Patient is from home w/ and 17 year old dtr. Independent at baseline, uses cane PRN. PCP: Geovanni Pink MD HCP: Roxana - on file and verified Current patient of wound clinic. Last admitted 02/04 for toe amp. DC'd home w/ [facility] and [facility] for IV abx. Now admitted w/ osteo, pending vascular consult. DP: Goal is home self care, can transport. Dispo TBD by hospital course/vascular consult. CM will continue to follow.
--- NOTE | 2023-08-05 12:07 | P.CONGS_ITS ---
History of Present Illness Consult details Consult date: 08/05/23 Reason for consult: wound care Narrative: Pleasant 53-year-old gentleman well known to me for prior history of peripheral vascular disease and nonhealing ulcer. Has had prior left-sided toe amp and now his right great toe has a nonhealing ulcer. Has been present for some time it had become increasingly painful and large. Now presents for vascular evaluation Review of Systems 2 Review of Systems: Yes all other systems are reviewed and are negative Constitutional: Constitutional: Reports no additional constitutional complaints ENT: Reports Normal hearing present Cardiovascular: Cardiovascular: Denies chest pain, Denies chest pain at rest, Denies chest pain with activity and Denies pedal edema Respiratory: Respiratory: Denies cough Gastrointestinal: Gastrointestinal: Denies abdominal pain Musculoskeletal: Musculoskeletal: Denies abnormal gait, Denies muscle cramps and Denies radiating pain into limb Integumentary/Breasts: Skin/Breast: Denies skin ulcer and Denies wounds Neurologic: Reports Normal hearing present and Denies abnormal gait Psychiatric: Psychiatric: Reports no additional psychiatric complaints PMFSH Past Medical History Medical History MSSA bacteremia Osteomyelitis of third toe of left foot S/P angiogram of extremity (10/08/22) Diabetic ulcer of right foot Osteomyelitis Wound of right foot PAD (peripheral artery disease) Chronic right shoulder pain Multinodular goiter Testicular cancer Bleeding internal hemorrhoids Seminoma Paresthesia and pain of extremity Type 2 diabetes mellitus with hyperglycemia, with long-term current use of insulin Type 2 diabetes mellitus with chronic kidney disease Hyperlipidemia Vaccination refused by patient Refused pneumococcal vaccination Anemia in stage 4 chronic kidney disease Acute proliferative glomerulonephritis Secondary hyperparathyroidism of renal origin Mixed dyslipidemia Peripheral vascular disease Carpal tunnel syndrome on left Diabetes mellitus with diabetic nephropathy, with long-term current use of insulin Osteomyelitis of left foot Diabetes mellitus with foot ulcer End-stage renal disease on hemodialysis Family History Family History Father Unknown family medical history Mother Diabetes mellitus HTN (hypertension) CVD (cardiovascular disease) History of CVA (cerebrovascular accident) Stroke Sister Diabetes mellitus Daughter No problems noted. Sister No problems noted. Sister No problems noted. Surgical History Surgical History History of amputation (01/19/23) Amputated toe of right foot (10/13/22) History of kidney transplant Kidney transplant recipient Social History Social History Household Members: Family Housing: House Do you presently have visiting nurse or other home services: No Alcohol intake: never Patient Tobacco Use Status: Never used Tobacco e-Cigarette/Vaping Use: Never Used Advance Directives Date on File: 01/16/23 service: No Current occupational status: disabled Current occupation: disability - kidney transplant. Left side dominant Cognitive needs: No Hearing needs: No Vision needs: No Meds Allergies Allergy/AdvReac Type Severity Reaction Status Date / Time No Known Allergies Allergy Verified 04/30/23 13:10 Active Medications: Current Medications Acetaminophen (Acetaminophen 325 Mg Tablet) 650 mg PO Q6H PRN PRN Reason: Pain, Mild (Pain Scale 1-3) Amlodipine Besylate (Amlodipine Besylate 5 Mg Tablet) 5 mg PO DAILY [facility]; Protocol Last Admin: 08/05/23 09:14 Dose: 5 mg Apixaban (Apixaban 5 Mg Tablet) 5 mg PO BID [facility] Last Admin: 08/05/23 09:14 Dose: 5 mg Atorvastatin Calcium (Atorvastatin Calcium 40 Mg Tablet) 40 mg PO BEDTIME [facility] Dextrose (Dextrose 50 % 25 Gm/50 Ml Syringe) 25 gm IVPUSH Q15M PRN; Protocol PRN Reason: per Hypoglycemia Standing Ord. Glucose (Glucose Gel 15 Gm Gel..Gram.) 15 gm PO Q15M PRN; Protocol PRN Reason: per Hypoglycemia Standing Ord. Piperacillin Sod/Tazobactam (Sod 3.375 gm/ Sodium Chloride) 50 mls @ 100 mls/hr IV Q6H [facility] Last Infusion: 08/05/23 08:56 Dose: Infused Vancomycin HCl 1,500 mg/ (Sodium Chloride) 500 mls @ 333.333 mls/hr IV Q24H [facility] Insulin Glargine (Insulin Glargine,Hum.Rec.Anlog 100 Unit/Ml 10 Ml Vial) 8 unit SUBCUT BEDTIME [facility] Insulin Human Lispro (Insulin Lispro 100 Unit/Ml 3 Ml Vial) 4 unit SUBCUT TIDAC [facility] Last Admin: 08/05/23 11:33 Dose: 4 unit Insulin Human Lispro (Insulin Lispro 100 Unit/Ml 3 Ml Vial) 0 unit SUBCUT QIDACHS [facility]; Protocol Last Admin: 08/05/23 11:33 Dose: 8 unit Pt Own (Everolimus 1 (Mg Tablet)) 2 mg PO BID [facility] Last Admin: 08/05/23 10:57 Dose: Not Given Pt Own ( Mycophenolate Sodium 180 Mg Tablet, Delayed Release (Dr/Ec)) 540 mg PO BID [facility] Pharmacy Consult (Consult Rx Vancomycin Dosing) 1 each MISCELLANE DAILY PRN PRN Reason: Consult order Sodium Chloride (0.9 % Sodium Chloride Flush 3 Ml Syringe) 3 ml IVFLUSH QSHIFT [facility] Last Admin: 08/05/23 09:06 Dose: Not Given Home Medications Medication Instructions Recorded Confirmed Last Taken Type calcifediol 30 mcg capsule,24 30 mcg PO BEDTIME 03/14/20 08/05/23 08/04/23 History hr,extended release (Rayaldee) pen needle, diabetic 31 gauge x #50 ea 06/05/20 03/06/23 Unknown History 08/28 apixaban 5 mg tablet 5 mg PO BID 10/12/20 08/05/23 08/04/23 History lancets 28 gauge (FreeStyle #100 ea 06/26/21 03/06/23 Unknown History Lancets) insulin aspart U-100 100 unit/mL 4 unit subcut TIDAC 10/26/21 08/05/23 08/04/23 History (3 mL) subcutaneous pen (Novolog FlexPen U-100 Insulin aspart) amlodipine 5 mg tablet 5 mg PO DAILY 10/28/22 08/05/23 08/04/23 History valsartan 40 mg tablet 40 mg PO DAILY 10/28/22 08/05/23 08/04/23 History insulin glargine 100 unit/mL (3 20 unit subcut BEDTIME 02/20/23 08/05/23 08/04/23 History mL) subcutaneous pen (Lantus Solostar U-100 Insulin) everolimus (immunosuppressive) 1 2 mg PO BID 08/05/23 08/05/23 08/04/23 History mg tablet mycophenolate sodium 180 mg 540 mg PO BID 08/05/23 08/05/23 08/04/23 History tablet,delayed release rosuvastatin 10 mg tablet 10 mg PO BEDTIME 08/05/23 08/05/23 08/04/23 History Physical Exam 2 Vital Signs: Vital Signs: Last Vital Signs Temp 98.8 F 08/05/23 10:14 Pulse 79 08/05/23 10:14 Resp 17 08/05/23 10:14 BP 144/79 H 08/05/23 10:14 Pulse Ox 97 08/05/23 10:14 O2 Del Method Room Air 08/05/23 10:14 BMI result Body Mass Index 32.1 Const: General: cooperative, healthy appearing and comfortable O rientation/consciousness: oriented to person, oriented to place and oriented to time HEENT: Head: Yes normal to inspection Neck: Neck: Yes normal visual inspection Carotids: no bruits Chest: Chest palpation & inspection: normal inspection of the chest Resp: Effort & Inspection: normal respiratory effort and able to speak in complete sentences Auscultation: clear to auscultation bilaterally, no crackles, no rales, no rhonchi and no wheezes Cardio: Rate: regular rate Rhythm: regular rhythm Heart sounds: S1 normal heart sound present and S2 normal heart sound present Bruits: no carotid bruits Peripheral pulses: Peripheral pulses 2+ throughout GI: Inspection: Yes normal to inspection Skin: Other: Right great toe ulcer with appearance of bone exposure. Wounds: no wounds Hair: normal Neuro: General: oriented to person, oriented to place and oriented to time Cranial nerves: Yes CN's II-XII intact bilaterally and Yes Normal hearing present Cognition (Neuro): normal cognition Motor exam (neuro): 5/5 motor strength present throughout Extrem: Other: venous exam: No significant superficial varicosities or spider telangiectasias, minimal edema General: No clubbing, No cyanosis and No edema Psych: Appearance: grossly normal Mental Status: mental status grossly normal Speech and movement: Normal speech and movement present Results Labs 08/04/23 23:40 08/05/23 07:37 Labs: Abnormal lab results 08/04/23 08/05/23 Range/Units 23:40 07:37 Immature Gran % (Auto) 0.7 H (0.0-0.4) % [place] % (Auto) 11.6 H (2-11) % Abs Immat Gran (auto) 0.07 H (0.00-0.03) X10*3/uL Carbon Dioxide 18 L (22-29) mmol/L BUN 19 H (9-16) mg/dL Creatinine 1.74 H 1.68 H (0.5-1.4) mg/dL Alkaline Phosphatase 128 H (39-117) U/L C-Reactive Protein 2.37 H (< or = 0.50) mg/dL Short CBC 08/04/23 Range/Units 23:40 WBC 9.8 (4.8-10.8) X10*3/uL Hgb 14.8 (14.0-18.0) g/dl Hct 45.1 (42.0-52.0) % Plt Count 214 (160-400) X10*3/uL BMP 08/04/23 08/05/23 23:40 07:37 Sodium 138 Potassium 3.7 Chloride 108 Carbon Dioxide 18 L BUN 19 H Creatinine 1.74 H 1.68 H Calcium 9.0 Liver Function 08/04/23 Range/Units 23:40 Total Bilirubin 0.3 (0.0-1.0) mg/dL AST 18 (5-37) U/L ALT 10 (0-40) U/L Alkaline Phosphatase 128 H (39-117) U/L Albumin 4.0 (3.5-5.0) g/dL All other labs normal. Assessment and Plan (1) Osteomyelitis: Qualifiers: Laterality: right Osteomyelitis location: foot Osteomyelitis type: o ther acute Qualified Code(s): M86.171 - Other acute osteomyelitis, right ankle and foot Status: Acute Plan In short patient has nonhealing right great toe ulcer. Concern here is underlying osteomyelitis. I did review his previous arterial testing which does appear to be within normal limits. I will take a closer look at the wound tomorrow. At the current time would continue antibiotics. We will follow with you. Thank you for allowing us to assist in his care. Procedures Date of Service Date of Service: 08/05/23
--- NOTE | 2023-08-05 13:22 | PM.EVENT ---
Event Note Date of Service: 08/05/23 Event Note: Chart reviewed patient examined. Agree with history and physical and plan as outlined. Discussed with vascular surgery; patient well known to them. We will continue IV antibiotics and vascular were workup from a flow. standpoint. X-ray quite definitive for osteomyelitis; no need for MRI at this time. Blood cultures pending. Time Spent With Patient Time: Total time managing care of this patient today ____ minutes.
[2023-08-05 15:38] VITALS: BP 155/80; PULSE 83; RESP 18; TEMP 36.4; O2SAT 99
[2023-08-05 16:25] VITALS: BP 154/80
[2023-08-05] MEDS: 0.9 % Sodium Chloride Flush 3 ML SYRINGE IVFLUSH ×2 (16:37→20:51)
[2023-08-05 19:48] VITALS: BP 140/71; PULSE 79; RESP 18; TEMP 36.7; O2SAT 98
[2023-08-05] MEDS: Atorvastatin Calcium 40 MG TABLET PO (20:46)
[2023-08-05] MEDS: Insulin Glargine,Hum.rec.anlog 100 UNIT/ML 10 ML VIAL 8 UNIT SUBCUT (20:47)
--- NOTE | 2023-08-06 | ECG_ITS ---
Test Reason : chest burning Blood Pressure : / mmHG Vent. Rate : 085 BPM Atrial Rate : 085 BPM P-R Int : 132 ms QRS Dur : 076 ms QT Int : 378 ms P-R-T Axes : 036 -32 009 degrees QTc Int : 449 ms Sinus rhythm with Premature atrial complexes Left axis deviation Abnormal ECG No previous ECGs available Referred By: Francis Haney Electronically Signed By:MARGARET LAFLEUR MD
[2023-08-06] MEDS: Piperacillin Sodium/Tazobactam 3.375 GM in 0.9 % Sodium Chloride 50 ML IV ×4 (01:25→18:52)
[2023-08-06 03:28] VITALS: BP 120/69; PULSE 80; RESP 18; TEMP 36.2; O2SAT 100
[2023-08-06 06:49] LABS: MANUAL DIFF FLAG NO
[2023-08-06] MEDS: vancomycin HCL 1,500 MG in 0.9 % Sodium Chloride 500 ML 333.33 MG IV (06:50)
--- NOTE | 2023-08-06 07:00 | CA_ITS ---
Transthoracic Echocardiogram Patient (Last, First, Middle): Raheem Castro, Gender: Male Date of : 1970 Age: 53 Procedure Date: 08/06/2023 Procedure Type: Transthoracic Echocardiogram Location: S3E Height: 175. cm Weight: 98.43 kg BSA: 2.14 m2 Heart Rate: 72 bpm BP: 149 / 72 mmHg Heat Regulator: ZAIDA Referring MD: Francis Haney DO Egg Breaking Machine Operator: Juanjo Mackey MD Symptoms: vasculopath w/chest pain Study Quality: Adequate/w Contrast ECG Rhythm: Sinus rhythm with Premature atrial complexes Conclusions: - 1. Normal LV ejection fraction of 60 65% with mild LVH with impaired relaxation filling pattern 2. Trace aortic regurgitation 3. Mildly dilated ascending aorta at 3.8 cm 4. No gross pericardial effusion Findings Procedure Information Contrast agent, definity, is being given per protocol without apparent complications. Left Ventricle Normal left ventricular size and systolic function. There is mildly increased left ventricular wall thickness. The visually estimated ejection fraction is between 60-65%. Spectral Doppler is indicative of an impaired relaxation filling pattern. E/E prime ratio is between 8 and 15 consistent with indeterminate filling pressures. Right Ventricle Normal right ventricular cavity size and systolic function. Atria The left atrium is likely dilated. Interatrial shunt cannot be excluded. The right atrium is normal in size. Aortic Valve There is mild calcification of the aortic valve. There is no aortic valve stenosis. There is trace (trivial) aortic valve regurgitation. Mitral Valve Normal mitral valve structure and function. There is trace mitral valve regurgitation. There is no mitral valve stenosis. Pulmonic Valve The pulmonic valve was not well visualized. Tricuspid Valve Likely normal tricuspid valve structure and function. Tricuspid regurgitation envelope is inadequate for calculation of right ventricular systolic pressure. Normal right atrial pressure. Great Vessels The pulmonary artery was not well visualized. There is mild dilatation of the ascending aorta measuring 3.80 cm. Venous The inferior vena cava is normal in size and collapses greater than 50% with inspiration. Pericardium/Pleural There is no evidence of pericardial effusion. Prior Study Comparison No significant change compared to prior study dated: 01/19/2023. Measurements 2D Linear Measurements IVSd: 1.35 0.6-0.9/0.6-1.0 cm LVIDd: 3.80 3.9-5.3/4.2-5.9 cm LVIDd Index: 1.78 2.4-3.2/2.2-3.1 cm/m2 LVIDs: 2.70 2.0-3.6 cm LVPWd: 1.37 0.7-1.1 cm LA Diam: 3.90 2.7-3.8/3.0-4.0 cm LAIDs Index: 1.82 1.5-2.3 cm/m2 LV Mass: 231.19 67-162/88-224 g LV Mass Index: 108.03 43-95/49-115 g/m2 LVOT Diam: 2.30 3.0+(-)1.3 cm 2D Systolic Function EF 4C: 68.50 >55% EF 2C: 55.20 >55% EF BiP: 62.50 >55% Mitral Valve MV Pk E: 0.81 MV PK A: 1.01 MV Decel Time: 349.00 E/A: 0.80 E'Lateral: 7.72 E'Medial: 5.66 E/E' Med: 14.30 E/E' Lat: 10.50 PHT: 102.00 MVA PHT: 2.16 Decel [place]: 2.32 Aortic Valve AoV Pk Noha: 1.44 AoV Mn Noah: 1.00 AoV VTI: 0.31 AoV Pk Grad: 8.00 Aov Mn Grad: 5.00 MADELINE Cont.VTI: 3.39 LVOT LVOT Pk Noah: 1.07 LVOT Mn Noah: 0.76 LVOT VTI: 0.25 LVOT Pk Grad: 5.00 LVOT Mn Grad: 3.00 LVOT Diam: 2.30 LVOT Area: 4.15 Diastolic Function MV Pk E: 0.81 MV Pk A: 1.01 E/A: 0.80 E'Medial: 5.66 E/E' Med: 14.30 E' Laterial: 7.72 E/E' Lat: 10.50 Right Ventricle TAPSE (mm): 27.00 TVS' Noah: 14.80 Tricuspid Valve TR Pk Noah: 2.21 TR Pk Grad: 20.00 Great Vessels Aorta Sinus of Valsalva: 3.70 2.0-3.5 cm Ao Asc: 3.80 2.1-3.4 cm Pulmonary Valve PV Pk Noah: 0.80 Peak PV Grad: 3.00 Updated in Other Vendor System with Status of Final Juanjo Mackey MD electronically signed on 08/06/2023 3:35:50 PM with status of Final
[2023-08-06 07:06] LABS: Basophils Percent Auto 0.6 % (0-2); Eosinophils Absolute Auto 0.1 X10*3/uL (0.0-0.4); Eosinophils Percent Auto 1.4 % (0-4); Hematocrit 43.7 % (42.0-52.0); Hemoglobin 14.3 g/dl (14.0-18.0); Imm Gran Abs Auto 0.09 X10*3/uL (0.00-0.03); Imm Gran Pct Auto 1.4 % (0.0-0.4); Lymphocytes Absolute Auto 1.8 X10*3/uL (1.2-4.9); Lymphocytes Percent Auto 29.2 % (20-40); Mean Corpuscular HGB Conc 32.7 g/dl (31.0-36.0); Mean Corpuscular Hemoglobin 29.2 pg (27.0-33.0); Mean Corpuscular Volume 89.2 fL (80.0-98.0); Mean Platelet Volume 11.8 fL (9.4-12.4); Monocytes Absolute Auto 0.8 X10*3/uL (0.1-1.2); Monocytes Percent Auto 12.7 % (2-11); Neutrophils Absolute Auto 3.4 x10*3/uL (2.0-8.3); Neutrophils Percent Auto 54.7 % (45-73); Platelet Count 170 X10*3/uL (160-400); Red Cell Distribution Width 12.9 % (11.0-16.0); White Blood Count 6.3 X10*3/uL (4.8-10.8)
[2023-08-06 07:22] VITALS: BP 149/72; PULSE 76; RESP 18; TEMP 36.3; O2SAT 99
[2023-08-06 07:39] LABS: Alanine Aminotransferase 8 U/L (0-40); Albumin Level 3.8 g/dL (3.5-5.0); Alkaline Phosphatase 110 U/L (39-117); Anion Gap 13 (12-20); Aspartate Amino Transferase 12 U/L (5-37); Bilirubin Total 0.5 mg/dL (0.0-1.0); Blood Urea Nitrogen 14 mg/dL (9-16); Calcium 8.8 mg/dL (8.4-10.2); Carbon Dioxide 23 mmol/L (22-29); Chloride 109 mmol/L (96-108); Creatinine Clr Calc Pharmacy 64.5; Estimated Glomerular Filt Rate 47; Glucose Fasting 146 mg/dL (60-99); Potassium 3.6 mmol/L (3.3-5.1); Sodium 141 mmol/L (135-145); Total Protein 7.4 g/dL (6.5-8.0)
[2023-08-06] MEDS: Insulin Lispro 100 UNIT/ML 3 ML VIAL SUBCUT ×7 (08:14→21:57)
[2023-08-06] MEDS: Apixaban 5 MG TABLET PO ×2 (08:15→19:47)
[2023-08-06] MEDS: amLODIPine Besylate 5 MG TABLET PO (08:16)
[2023-08-06] MEDS: 0.9 % Sodium Chloride Flush 3 ML SYRINGE IVFLUSH ×2 (08:28→16:51)
--- NOTE | 2023-08-06 15:14 | HO.PM.IMPN ---
Subjective Subjective Date of Service: 08/06/23 Interval History: No acute issues overnight. Complains about diet Review of Systems Denies recurrent chest pain Denies shortness of breath Denies fever chills Denies nausea vomiting diarrhea Physical Exam Vital Signs: Vital Signs: Last Vital Signs Temp 97.3 F 08/06/23 07:22 Pulse 76 08/06/23 07:22 Resp 18 08/06/23 07:22 BP 149/72 H 08/06/23 07:22 Pulse Ox 99 08/06/23 07:22 O2 Del Method Room Air 08/06/23 07:22 BMI result Body Mass Index 32.1 Const: Other: Awake alert no acute distress Resp: Other: Clear to auscultation bilaterally no rales rhonchi or wheezes Cardio: Other: No S4; positive S1-S2; no S3 murmurs rubs or gallops GI: Other: Soft nontender nondistended normoactive bowel sounds Extrem: Other: No edema bilaterally Objective Data Active Medications Acetaminophen (Acetaminophen 325 Mg Tablet) 650 mg PO Q6H PRN PRN Reason: Pain, Mild (Pain Scale 1-3) Amlodipine Besylate (Amlodipine Besylate 5 Mg Tablet) 5 mg PO DAILY [facility]; Protocol Last Admin: 08/06/23 08:16 Dose: 5 mg Documented By: MINERVA Apixaban (Apixaban 5 Mg Tablet) 5 mg PO BID [facility] Last Admin: 08/06/23 08:15 Dose: 5 mg Documented By: MINERVA Atorvastatin Calcium (Atorvastatin Calcium 40 Mg Tablet) 40 mg PO BEDTIME [facility] Last Admin: 08/05/23 20:46 Dose: 40 mg Documented By: GASTON Dextrose (Dextrose 50 % 25 Gm/50 Ml Syringe) 25 gm IVPUSH Q15M PRN; Protocol PRN Reason: per Hypoglycemia Standing Ord. Glucose (Glucose Gel 15 Gm Gel..Gram.) 15 gm PO Q15M PRN; Protocol PRN Reason: per Hypoglycemia Standing Ord. Piperacillin Sod/Tazobactam (Sod 3.375 gm/ Sodium Chloride) 50 mls @ 100 mls/hr IV Q6H [facility] Last Infusion: 08/06/23 12:49 Dose: Infused Documented By: MINERVA Vancomycin HCl 1,500 mg/ (Sodium Chloride) 500 mls @ 333.333 mls/hr IV Q24H [facility] Last Infusion: 08/06/23 08:30 Dose: Infused Documented By: MINREVA Insulin Glargine (Insulin Glargine,Hum.Rec.Anlog 100 Unit/Ml 10 Ml Vial) 8 unit SUBCUT BEDTIME [facility] Last Admin: 08/05/23 20:47 Dose: 8 unit Documented By: GASTON Insulin Human Lispro (Insulin Lispro 100 Unit/Ml 3 Ml Vial) 4 unit SUBCUT TIDAC [facility] Last Admin: 08/06/23 12:07 Dose: 4 unit Documented By: MINERVA Insulin Human Lispro (Insulin Lispro 100 Unit/Ml 3 Ml Vial) 0 unit SUBCUT QIDACHS [facility]; Protocol Last Admin: 08/06/23 12:07 Dose: 4 unit Documented By: MINERVA Comments: pt. check own sugar, POC 212 Pt Own (Everolimus 1 (Mg Tablet)) 2 mg PO BID [facility] Last Admin: 08/06/23 08:17 Dose: 2 mg Documented By: MINERVA Pt Own ( Mycophenolate Sodium 180 Mg Tablet, Delayed Release (Dr/Ec)) 540 mg PO BID [facility] Last Admin: 08/06/23 08:17 Dose: 540 mg Documented By: MINERVA Pharmacy Consult (Consult Rx Vancomycin Dosing) 1 each MISCELLANE DAILY PRN PRN Reason: Consult order Sodium Chloride (0.9 % Sodium Chloride Flush 3 Ml Syringe) 3 ml IVFLUSH QSHIFT [facility] Last Admin: 08/06/23 08:28 Dose: 3 ml Documented By: MINERVA Labs 08/06/23 05:43 08/06/23 05:43 Labs: Laboratory Results - last 24 hr 08/06/23 05:43 MCV 89.2 MCH 29.2 MCHC 32.7 RDW 12.9 Plt Count 170 MPV 11.8 Immature Gran % (Auto) 1.4 H Neut % (Auto) 54.7 Lymph % (Auto) 29.2 [place] % (Auto) 12.7 H Eos % (Auto) 1.4 Baso % (Auto) 0.6 Lymph # (Auto) 1.8 [place] # (Auto) 0.8 Eos # (Auto) 0.1 Baso # (Auto) 0.0 Abs Immat Gran (auto) 0.09 H Absolute Neuts (auto) 3.4 Absolute Nucleated RBC 0.000 Nucleated RBC % (auto) 0.0 Anion Gap 13 Estim Creat Clear Calc 64.5 Estimated GFR 47 Fasting Glucose 146 H Calcium 8.8 Total Bilirubin 0.5 AST 12 ALT 8 Alkaline Phosphatase 110 Total Protein 7.4 Albumin 3.8 Microbiology Microbiology Results: Microbiology 08/05/23 02:20 Blood Culture - Preliminary Blood - Venous No growth after 24 hours. 08/05/23 02:01 Blood Culture - Preliminary Blood - Venous No growth after 24 hours. Assessment and Plan (1) Osteomyelitis: Status: Acute (2) CKD (chronic kidney disease) stage 3, GFR 30-59 ml/min: Status: Acute Plan 53-year-old male known vasculopath falls outpatient with vascular surgery comes in with chronic right 1st distal phalanx wound that is not improving. Has had outpatient workup. X-ray consistent with osteomyelitis 1. Osteomyelitis right 1st toe distal aspect -vancomycin/Zosyn (2) -blood cultures negative x 24h -vascular to review outpatient workup and decide treatment plan 2.CKD S/P renal transplant -everolimus/mycophenolate. -follow renals/divalents 3.DM II -acceptable control on current therapies -lispro correctional scale -adjust as indicated 4.Chronic atrial fibrillation -rate control acceptable -continue Deloresis Khai Full code Patient will require ongoing hospitalization for IV antibiotics to treat osteomyelitis as well as specialty treatment from vascular surgery Quality Stroke Does the patient have a stroke diagnosis?: No VTE Prior VTE?: No VTE Risk Level:: Medical - moderate - high VTE Device Contraindication: Treatment Not Indicated VTE Drug Contraindication: Treatment Not Indicated
[2023-08-06 15:26] VITALS: BP 145/76; PULSE 78; RESP 18; TEMP 36.5; O2SAT 98
--- NOTE | 2023-08-06 17:09 | HO.VASCPN ---
Subjective Subjective Date of Service: 08/06/23 Patient reports: no new complaints and feels better Interval history: Patient seen and examined. No significant events overnight. Reports that he has nonhealing great toe ulcer. Has had noninvasive testing just a few weeks prior. Now for follow-up. Physical Exam Vital Signs: Vital Signs: Last Vital Signs Temp 97.7 F 08/06/23 15:26 Pulse 78 08/06/23 15:26 Resp 18 08/06/23 15:26 BP 145/76 H 08/06/23 15:26 Pulse Ox 98 08/06/23 15:26 O2 Del Method Room Air 08/06/23 15:26 BMI result Body Mass Index 32.1 Const: General: cooperative, healthy appearing and no acute distress Orientation/consciousness: oriented to person, oriented to place and oriented to time HEENT: Head: Yes normal to inspection Neck: Carotids: no bruits Chest: Chest palpation & inspection: normal inspection of the chest Resp: Effort & Inspection: normal respiratory effort and able to speak in complete sentences Auscultation: clear to auscultation bilaterally Cardio: Rate: regular rate Heart sounds: S1 normal heart sound present and S2 normal heart sound present GI: Inspection: Yes normal to inspection Skin: Other: Right great toe ulcer General skin exam: no rashes or lesions noted Wounds: no wounds Neuro: General: oriented to person, oriented to place, oriented to time and CN's II-XI intact bilaterally Extrem: General: Yes normal to inspection, Yes full ROM and Yes no clubbing, cyanosis or edema Psych: Appearance: grossly normal and well kempt Speech and movement: Normal speech and movement present Affect: normal affect Progress Note: A&P Assessment and plan (1) Peripheral vascular disease: Status: Acute Assessment and Plan: In short patient has nonhealing right great toe. Will require angiogram. Will discuss with patient tomorrow. Will possibly schedule for Thursday. Thank you for allowing us to assist in his care. If there are any questions or concerns please do not hesitate to contact us. Time Spent With Patient Time: Total time managing care of this patient today ____ minutes. Procedures Date of Service Date of Service: 08/06/23 Quality Stroke Does the patient have a stroke diagnosis?: No VTE Prior VTE?: No VTE Risk Level:: Medical - moderate - high VTE Device Contraindication: Treatment Not Indicated VTE Drug Contraindication: Treatment Not Indicated
[2023-08-06 19:12] VITALS: BP 129/74; PULSE 72; RESP 18; TEMP 36.8; O2SAT 97
[2023-08-06] MEDS: Atorvastatin Calcium 40 MG TABLET PO (19:47)
[2023-08-06] MEDS: Insulin Glargine,Hum.rec.anlog 100 UNIT/ML 10 ML VIAL 8 UNIT SUBCUT (21:58)
[2023-08-07] MEDS: Piperacillin Sodium/Tazobactam 3.375 GM in 0.9 % Sodium Chloride 50 ML IV ×4 (00:34→18:21)
[2023-08-07 03:32] VITALS: BP 137/74; PULSE 83; RESP 18; TEMP 36.1; O2SAT 97
[2023-08-07 06:02] LABS: MANUAL DIFF FLAG NO
[2023-08-07 06:07] LABS: Basophils Percent Auto 0.5 % (0-2); Eosinophils Absolute Auto 0.1 X10*3/uL (0.0-0.4); Hemoglobin 14.8 g/dl (14.0-18.0); Imm Gran Abs Auto 0.06 X10*3/uL (0.00-0.03); Lymphocytes Percent Auto 32.6 % (20-40); Mean Corpuscular HGB Conc 32.9 g/dl (31.0-36.0); Mean Corpuscular Hemoglobin 29.1 pg (27.0-33.0); Mean Corpuscular Volume 88.6 fL (80.0-98.0); Mean Platelet Volume 11.6 fL (9.4-12.4); Monocytes Absolute Auto 0.7 X10*3/uL (0.1-1.2); Monocytes Percent Auto 12.2 % (2-11); Neutrophils Absolute Auto 3.1 x10*3/uL (2.0-8.3); Neutrophils Percent Auto 51.7 % (45-73); Platelet Count 184 X10*3/uL (160-400); Red Blood Count 5.08 X10*6/uL (4.60-5.80); Red Cell Distribution Width 12.8 % (11.0-16.0)
[2023-08-07 06:16] LABS: Vancomycin Random 11.1 mcg/mL (15-20)
[2023-08-07 06:19] LABS: Alanine Aminotransferase 8 U/L (0-40); Albumin Level 3.8 g/dL (3.5-5.0); Alkaline Phosphatase 104 U/L (39-117); Anion Gap 13 (12-20); Aspartate Amino Transferase 12 U/L (5-37); Bilirubin Total 0.3 mg/dL (0.0-1.0); Blood Urea Nitrogen 14 mg/dL (9-16); Calcium 9.3 mg/dL (8.4-10.2); Carbon Dioxide 23 mmol/L (22-29); Chloride 109 mmol/L (96-108); Creatinine Clr Calc Pharmacy 58.1; Estimated Glomerular Filt Rate 42; Glucose Fasting 126 mg/dL (60-99); Potassium 3.4 mmol/L (3.3-5.1); Sodium 142 mmol/L (135-145); Total Protein 7.4 g/dL (6.5-8.0)
--- NOTE | 2023-08-07 06:48 | HE.PHANOTE ---
RE: VANCO DOSING Random came back as 11.1 mg/L but dose is kept at 1500 mg q24h due to patient's renal worsening (1.72 vs 1.55 yesterday) and trough came back higher than expected (11.1 vs predicted 10.4). Next random is scheduled for 08/08/22 @0500.
[2023-08-07] MEDS: vancomycin HCL 1,500 MG in 0.9 % Sodium Chloride 500 ML 333.3 MG IV (07:15)
[2023-08-07] MEDS: 0.9 % Sodium Chloride Flush 3 ML SYRINGE IVFLUSH ×2 (07:17→18:23)
[2023-08-07 07:19] VITALS: BP 137/76; PULSE 78; RESP 18; TEMP 36.2; O2SAT 97
[2023-08-07] MEDS: amLODIPine Besylate 5 MG TABLET PO (07:23)
[2023-08-07] MEDS: Insulin Lispro 100 UNIT/ML 3 ML VIAL SUBCUT ×7 (07:23→20:44)
[2023-08-07] MEDS: Apixaban 5 MG TABLET PO ×2 (07:23→20:45)
--- NOTE | 2023-08-07 09:50 | HO.VASCPN ---
Subjective Subjective Date of Service: 08/07/23 Patient reports: no new complaints and feels better Interval history: Very pleasant 53-year-old gentleman presents for follow-up regarding nonhealing great toe ulcer. Reports that he is doing fairly well. Overall pain discomfort have improved since his visit. He now presents for follow-up. Of note he has had prior endovascular intervention by Dr. Soliman Physical Exam Vital Signs: Vital Signs: Last Vital Signs Temp 97.2 F 08/07/23 07:19 Pulse 78 08/07/23 07:19 Resp 18 08/07/23 07:19 BP 137/76 08/07/23 07:19 Pulse Ox 97 08/07/23 07:19 O2 Del Method Room Air 08/07/23 07:19 BMI result Body Mass Index 32.1 Const: General: cooperative, healthy appearing and no acute distress Orientation/consciousness: oriented to person, oriented to place and oriented to time HEENT: Head: Yes normal to inspection Neck: Carotids: no bruits Chest: Chest palpation & inspection: normal inspection of the chest Resp: Effort & Inspection: normal respiratory effort and able to speak in complete sentences Auscultation: clear to auscultation bilaterally Cardio: Rate: regular rate Heart sounds: S1 normal heart sound present and S2 normal heart sound present GI: Inspection: Yes normal to inspection Skin: Other: Right great toe nonhealing ulcer General skin exam: no rashes or lesions noted Wounds: no wounds Neuro: General: oriented to person, oriented to place, oriented to time and CN's II-XI intact bilaterally Extrem: General: Yes normal to inspection, Yes full ROM and Yes no clubbing, cyanosis or edema Psych: Appearance: grossly normal and well kempt Speech and movement: Normal speech and movement present Affect: normal affect Progress Note: A&P Assessment and plan (1) Peripheral vascular disease: Status: Acute Assessment and Plan: In short patient has nonhealing right great toe ulcer. I did review his arterial testing from 07/13/2023 where the below-knee vessels become monophasic. I have discussed the pathophysiology of peripheral vascular disease with the patient. I have also discussed risk factor modification. the patient would benefit from a right leg endovascular peripheral angiogram with possible angioplasty, stent, and/or atherectomy. This has been discussed in detail with the patient along with risks, benefits, and complications. This includes but is not limited to bleeding, infection, heart attack, need for emergent surgical repair, limb ischemia, blood vessel damage, bleeding, puncture, kidney injury, bruising, allergic reaction, and skin reaction. The patient demonstrates a clear understanding. We will schedule for the next appropriate time. Thank you for allowing us to assist in this patient's care. Time Spent With Patient Time: Total time managing care of this patient today ____ minutes. Procedures Date of Service Date of Service: 08/07/23 Quality Stroke Does the patient have a stroke diagnosis?: No VTE Prior VTE?: No VTE Risk Level:: Medical - moderate - high VTE Device Contraindication: Treatment Not Indicated VTE Drug Contraindication: Treatment Not Indicated
[2023-08-07 09:53] VITALS: BP 125/67; PULSE 77; RESP 18; TEMP 36.6; O2SAT 95
--- NOTE | 2023-08-07 13:51 | MHC.CM.PN ---
Per MD rounds no discharge today. Patient is scheduled for an Angio Thursday08/10/23. DP Home, if LT IV ABX Patient has used [facility] and [facility] for home infusion in the past.
--- NOTE | 2023-08-07 14:12 | HO.PM.IMPN ---
Subjective Subjective Date of Service: 08/07/23 Interval History: No acute issues overnight. Pain control adequate Review of Systems Denies recurrent chest pain Denies shortness of breath Denies fever chills Denies nausea vomiting diarrhea Physical Exam Vital Signs: Vital Signs: Last Vital Signs Temp 97.8 F 08/07/23 09:53 Pulse 77 08/07/23 09:53 Resp 18 08/07/23 09:53 BP 125/67 08/07/23 09:53 Pulse Ox 95 08/07/23 09:53 O2 Del Method Room Air 08/07/23 09:53 BMI result Body Mass Index 32.1 Const: Other: Awake alert no acute distress Resp: Other: Clear to auscultation bilaterally no rales rhonchi or wheezes Cardio: Other: No S4; positive S1-S2; no S3 murmurs rubs or gallops GI: Other: Soft nontender nondistended normoactive bowel sounds Extrem: Other: No edema bilaterally Objective Data Active Medications Acetaminophen (Acetaminophen 325 Mg Tablet) 650 mg PO Q6H PRN PRN Reason: Pain, Mild (Pain Scale 1-3) Amlodipine Besylate (Amlodipine Besylate 5 Mg Tablet) 5 mg PO DAILY [facility]; Protocol Last Admin: 08/07/23 07:23 Dose: 5 mg Documented By: KYLEIGH Apixaban (Apixaban 5 Mg Tablet) 5 mg PO BID [facility] Last Admin: 08/07/23 07:23 Dose: 5 mg Documented By: KYLEIGH Atorvastatin Calcium (Atorvastatin Calcium 40 Mg Tablet) 40 mg PO BEDTIME [facility] Last Admin: 08/06/23 19:47 Dose: 40 mg Documented By: MINERVA Dextrose (Dextrose 50 % 25 Gm/50 Ml Syringe) 25 gm IVPUSH Q15M PRN; Protocol PRN Reason: per Hypoglycemia Standing Ord. Glucose (Glucose Gel 15 Gm Gel..Gram.) 15 gm PO Q15M PRN; Protocol PRN Reason: per Hypoglycemia Standing Ord. Piperacillin Sod/Tazobactam (Sod 3.375 gm/ Sodium Chloride) 50 mls @ 100 mls/hr IV Q6H [facility] Last Infusion: 08/07/23 12:43 Dose: Infused Documented By: KYLEIGH Vancomycin HCl 1,500 mg/ (Sodium Chloride) 500 mls @ 333.333 mls/hr IV Q24H [facility] Last Infusion: 08/07/23 08:56 Dose: Infused Documented By: KYLEIGH Insulin Glargine (Insulin Glargine,Hum.Rec.Anlog 100 Unit/Ml 10 Ml Vial) 8 unit SUBCUT BEDTIME [facility] Last Admin: 08/06/23 21:58 Dose: 8 unit Documented By: MINERVA Insulin Human Lispro (Insulin Lispro 100 Unit/Ml 3 Ml Vial) 4 unit SUBCUT TIDAC [facility] Last Admin: 08/07/23 11:54 Dose: 4 unit Documented By: KYLEIGH Insulin Human Lispro (Insulin Lispro 100 Unit/Ml 3 Ml Vial) 0 unit SUBCUT QIDACHS [facility]; Protocol Last Admin: 08/07/23 11:54 Dose: 2 unit Documented By: KYLEIGH Pt Own (Everolimus 1 (Mg Tablet)) 2 mg PO BID [facility] Last Admin: 08/07/23 07:24 Dose: 2 mg Documented By: KYLEIGH Pt Own ( Mycophenolate Sodium 180 Mg Tablet, Delayed Release (Dr/Ec)) 540 mg PO BID [facility] Last Admin: 08/07/23 07:24 Dose: 540 mg Documented By: KYLEIGH Pharmacy Consult (Consult Rx Vancomycin Dosing) 1 each MISCELLANE DAILY PRN PRN Reason: Consult order Sodium Chloride (0.9 % Sodium Chloride Flush 3 Ml Syringe) 3 ml IVFLUSH QSHIFT [facility] Last Admin: 08/07/23 07:17 Dose: 3 ml Documented By: KYLEIGH Labs 08/07/23 05:31 08/07/23 06:00 Labs: Laboratory Results - last 24 hr 08/07/23 08/07/23 05:31 06:00 MCV 88.6 MCH 29.1 MCHC 32.9 RDW 12.8 Plt Count 184 MPV 11.6 Immature Gran % (Auto) 1.0 H Neut % (Auto) 51.7 Lymph % (Auto) 32.6 [place] % (Auto) 12.2 H Eos % (Auto) 2.0 Baso % (Auto) 0.5 Lymph # (Auto) 2.0 [place] # (Auto) 0.7 Eos # (Auto) 0.1 Baso # (Auto) 0.0 Abs Immat Gran (auto) 0.06 H Absolute Neuts (auto) 3.1 Absolute Nucleated RBC 0.000 Nucleated RBC % (auto) 0.0 Anion Gap 13 Estim Creat Clear Calc 58.1 Estimated GFR 42 Fasting Glucose 126 H Calcium 9.3 Total Bilirubin 0.3 AST 12 ALT 8 Alkaline Phosphatase 104 Total Protein 7.4 Albumin 3.8 Random Vancomycin 11.1 L Microbiology Microbiology Results: Microbiology 08/05/23 02:20 Blood Culture - Preliminary Blood - Venous No growth after 48 hours. 08/05/23 02:01 Blood Culture - Preliminary Blood - Venous No growth after 48 hours. Assessment and Plan (1) Osteomyelitis: Status: Acute (2) CKD (chronic kidney disease) stage 3, GFR 30-59 ml/min: Status: Acute Plan 53-year-old male known vasculopath falls outpatient with vascular surgery comes in with chronic right 1st distal phalanx wound that is not improving. Has had outpatient workup. X-ray consistent with osteomyelitis 1. Osteomyelitis right 1st toe distal aspect -vancomycin/Zosyn (3) -blood cultures negative x 48h -vascular to book imaging study 226 2.CKD S/P renal transplant -everolimus/mycophenolate. -hold ARB morning of procedure -appreciate nephrology input -follow renals/divalents 3.DM II -acceptable control on current therapies -lispro correctional scale -adjust as indicated 4.Chronic atrial fibrillation -rate control acceptable -continue Khai Ridley Full code Patient will require ongoing hospitalization for IV antibiotics to treat osteomyelitis as well as specialty treatment from vascular surgery Quality Stroke Does the patient have a stroke diagnosis?: No VTE Prior VTE?: No VTE Risk Level:: Medical - moderate - high VTE Device Contraindication: Treatment Not Indicated VTE Drug Contraindication: Treatment Not Indicated
[2023-08-07 15:02] VITALS: BP 119/68; PULSE 91; RESP 18; TEMP 36.3; O2SAT 97
[2023-08-07 19:29] VITALS: BP 130/65; PULSE 78; RESP 20; TEMP 36.9; O2SAT 96
--- NOTE | 2023-08-07 19:48 | PM.CNNEP ---
History of Present Illness Reason for Consult Consult date: 08/07/23 Reason for consult: Patient & requesting transfer of his renal care to [facility] Chief Complaint Chief complaint: Right First Toe Osteomyelitis History of Present Illness Narrative: Patient & requesting transfer of his renal care to [facility], [facility] Raheem Zamoraez years old man with type 2 diabetes mellitus on insulin, chronic kidney disease s/p living donor renal transplant from presented to the emergency department complaining of right 1st toe chronic wound that has been getting worse with subjective fever of 100.6 at home. He had been getting care at wound clinic. He denied any chills, nausea, vomiting, dizziness or palpitations. He denied any cardiopulmonary, gastrointestinal or genitourinary symptoms. In the ED, he was found to have normal vital signs. Blood workup showed no leukocytosis. Renal function is around baseline. There are no significant electrolyte imbalances. CRP is elevated. Right foot x-ray showed new erosive changes and cortical disruption along the tuft of the distal phalanx of the 1st toe with surrounding soft tissue swelling and ulcerations -consistent with osteomyelitis. He was admitted for further management. He is going to undergo angiogram on Thursday. Nephrology has been consulted to assist in his clinical care during his current hospital stay Review of Systems Review of Systems Yes all other systems are reviewed and are negative PMFSH Past Medical History Medical History MSSA bacteremia Osteomyelitis of third toe of left foot S/P angiogram of extremity (10/08/22) Diabetic ulcer of right foot Osteomyelitis Wound of right foot PAD (peripheral artery disease) Chronic right shoulder pain Multinodular goiter Testicular cancer Bleeding internal hemorrhoids Seminoma Paresthesia and pain of extremity Type 2 diabetes mellitus with hyperglycemia, with long-term current use of insulin Type 2 diabetes mellitus with chronic kidney disease Hyperlipidemia Vaccination refused by patient Refused pneumococcal vaccination Anemia in stage 4 chronic kidney disease Acute proliferative glomerulonephritis Secondary hyperparathyroidism of renal origin Mixed dyslipidemia Peripheral vascular disease Carpal tunnel syndrome on left Diabetes mellitus with diabetic nephropathy, with long-term current use of insulin Osteomyelitis of left foot Diabetes mellitus with foot ulcer End-stage renal disease on hemodialysis Family History Family History Father Unknown family medical history Mother Diabetes mellitus HTN (hypertension) CVD (cardiovascular disease) History of CVA (cerebrovascular accident) Stroke Sister Diabetes mellitus Daughter No problems noted. Sister No problems noted. Sister No problems noted. Surgical History Surgical History History of amputation (01/19/23) Amputated toe of right foot (10/13/22) History of kidney transplant Kidney transplant recipient Social History Social History Household Members: Family Housing: House Do you presently have visiting nurse or other home services: No Alcohol intake: never Patient Tobacco Use Status: Never used Tobacco e-Cigarette/Vaping Use: Never Used Advance Directives Date on File: 01/16/23 service: No Current occupational status: disabled Current occupation: disability - kidney transplant. Left side dominant Cognitive needs: No Hearing needs: No Vision needs: No Meds Allergies Allergy/AdvReac Type Severity Reaction Status Date / Time No Known Allergies Allergy Verified 04/30/23 13:10 Active Medications: Current Medications Acetaminophen (Acetaminophen 325 Mg Tablet) 650 mg PO Q6H PRN PRN Reason: Pain, Mild (Pain Scale 1-3) Amlodipine Besylate (Amlodipine Besylate 5 Mg Tablet) 5 mg PO DAILY [facility]; Protocol Last Admin: 08/07/23 07:23 Dose: 5 mg Apixaban (Apixaban 5 Mg Tablet) 5 mg PO BID [facility] Last Admin: 08/07/23 07:23 Dose: 5 mg Atorvastatin Calcium (Atorvastatin Calcium 40 Mg Tablet) 40 mg PO BEDTIME [facility] Last Admin: 08/06/23 19:47 Dose: 40 mg Dextrose (Dextrose 50 % 25 Gm/50 Ml Syringe) 25 gm IVPUSH Q15M PRN; Protocol PRN Reason: per Hypoglycemia Standing Ord. Glucose (Glucose Gel 15 Gm Gel..Gram.) 15 gm PO Q15M PRN; Protocol PRN Reason: per Hypoglycemia Standing Ord. Piperacillin Sod/Tazobactam (Sod 3.375 gm/ Sodium Chloride) 50 mls @ 100 mls/hr IV Q6H [facility] Last Admin: 08/07/23 18:21 Dose: 100 mls/hr Vancomycin HCl 1,500 mg/ (Sodium Chloride) 500 mls @ 333.333 mls/hr IV Q24H [facility] Last Infusion: 02/23/24 08:56 Dose: Infused Insulin Glargine (Insulin Glargine,Hum.Rec.Anlog 100 Unit/Ml 10 Ml Vial) 8 unit SUBCUT BEDTIME [facility] Last Admin: 08/06/23 21:58 Dose: 8 unit Insulin Human Lispro (Insulin Lispro 100 Unit/Ml 3 Ml Vial) 4 unit SUBCUT TIDAC [facility] Last Admin: 08/07/23 18:21 Dose: 4 unit Insulin Human Lispro (Insulin Lispro 100 Unit/Ml 3 Ml Vial) 0 unit SUBCUT QIDACHS [facility]; Protocol Last Admin: 08/07/23 18:22 Dose: 8 unit Loperamide HCl (Loperamide Hcl 2 Mg Capsule) 2 mg PO Q6H PRN PRN Reason: Diarrhea Pt Own (Everolimus 1 (Mg Tablet)) 2 mg PO BID [facility] Last Admin: 08/07/23 07:24 Dose: 2 mg Pt Own ( Mycophenolate Sodium 180 Mg Tablet, Delayed Release (Dr/Ec)) 540 mg PO BID [facility] Last Admin: 08/07/23 07:24 Dose: 540 mg Pharmacy Consult (Consult Rx Vancomycin Dosing) 1 each MISCELLANE DAILY PRN PRN Reason: Consult order Sodium Chloride (0.9 % Sodium Chloride Flush 3 Ml Syringe) 3 ml IVFLUSH QSHIFT [facility] Last Admin: 08/07/23 18:23 Dose: 3 ml Home Medications Medication Instructions Recorded Confirmed Last Taken Type calcifediol 30 mcg capsule,24 30 mcg PO BEDTIME 03/14/20 08/05/23 08/04/23 History hr,extended release (Rayaldee) pen needle, diabetic 31 gauge x #50 ea 06/05/20 03/06/23 Unknown History 08/28 apixaban 5 mg tablet 5 mg PO BID 10/12/20 08/05/23 08/04/23 History lancets 28 gauge (FreeStyle #100 ea 06/26/21 03/06/23 Unknown History Lancets) insulin aspart U-100 100 unit/mL 4 unit subcut TIDAC 10/26/21 08/05/23 08/04/23 History (3 mL) subcutaneous pen (Novolog FlexPen U-100 Insulin aspart) amlodipine 5 mg tablet 5 mg PO DAILY 10/28/22 08/05/23 08/04/23 History valsartan 40 mg tablet 40 mg PO DAILY 10/28/22 08/05/23 08/04/23 History insulin glargine 100 unit/mL (3 20 unit subcut BEDTIME 02/20/23 08/05/23 08/04/23 History mL) subcutaneous pen (Lantus Solostar U-100 Insulin) everolimus (immunosuppressive) 1 2 mg PO BID 08/05/23 08/05/23 08/04/23 History mg tablet mycophenolate sodium 180 mg 540 mg PO BID 08/05/23 08/05/23 08/04/23 History tablet,delayed release rosuvastatin 10 mg tablet 10 mg PO BEDTIME 08/05/23 08/05/23 08/04/23 History Physical Exam Vital Signs: Last Vital Signs Temp 98.4 F 08/07/23 19:29 Pulse 78 08/07/23 19:29 Resp 20 08/07/23 19:29 BP 130/65 08/07/23 19:29 Pulse Ox 96 08/07/23 19:29 O2 Del Method Room Air 08/07/23 19:29 BMI result Body Mass Index 32.1 Const General: comfortable and no acute distress Orientation/consciousness: patient oriented x3 HEENT Head: Yes normocephalic Mouth: Normal oral and palatal mucosa present Eyes EOM: EOMs intact bilaterally Neck Neck: Yes supple Resp Auscultation: clear to auscultation bilaterally Cardio Jugular venous distension: no JVD Rate: regular rate GI Palpation (GI): Soft to palpation Auscultation: normal bowel sounds General: Yes no CVA tenderness Back/Spine/Pelvis Back: no CVA tenderness Skin General skin exam: no rashes or lesions noted Neuro General: patient oriented x3 and moves all extremities Results Lab Results 08/07/23 05:31 08/07/23 06:00 Lab results: Chemistry 08/04/23 08/05/23 08/06/23 23:40 07:37 05:43 Sodium 138 141 Potassium 3.7 3.6 Carbon Dioxide 18 L 23 BUN 19 H 14 Creatinine 1.74 H 1.68 H 1.55 H Calcium 9.0 8.8 08/07/23 06:00 Sodium 142 Potassium 3.4 Carbon Dioxide 23 BUN 14 Creatinine 1.72 H Calcium 9.3 Hematology 08/04/23 08/06/23 08/07/23 23:40 05:43 05:31 WBC 9.8 6.3 6.0 Hgb 14.8 14.3 14.8 Plt Count 214 170 184 Assessment and Plan (1) CKD (chronic kidney disease) stage 3, GFR 30-59 ml/min: Qualifiers: Chronic kidney disease stage 3 subtype: stage 3b (GFR 30-44) Qualified Code(s): N18.32 - Chronic kidney disease, stage 3b Status: Acute (2) Renal transplant recipient: Status: Acute Plan Transplant renal function at baseline Monitor Vancomycin levels C/W current dose of Everolimus & MMF C/W IV hydration; Needs better BS control @ home No ACEI/ARB/Diuretics on the day of angiogram Pre & post angiogram IV fluids C/W rest of current management (Patient & requesting transfer of his renal care to [facility]) Procedures Date of Service Date of Service: 08/07/23
[2023-08-07] MEDS: Insulin Glargine,Hum.rec.anlog 100 UNIT/ML 10 ML VIAL 8 UNIT SUBCUT (20:45)
[2023-08-07] MEDS: Atorvastatin Calcium 40 MG TABLET PO (20:45)
--- NOTE | 2023-08-07 22:36 | PC.NURSE ---
Patient has glucose monitor - per device glucose at 2100 was 270 - insulin administered per MD's order
[2023-08-08] MEDS: Piperacillin Sodium/Tazobactam 3.375 GM in 0.9 % Sodium Chloride 50 ML IV ×5 (00:54→23:45)
[2023-08-08] MEDS: 0.9 % Sodium Chloride Flush 3 ML SYRINGE IVFLUSH ×4 (00:57→20:27)
[2023-08-08 04:00] VITALS: BP 128/67; PULSE 64; RESP 16; TEMP 36.7; O2SAT 95
[2023-08-08 06:24] LABS: MANUAL DIFF FLAG NO
[2023-08-08 06:29] LABS: Basophils Percent Auto 0.3 % (0-2); Eosinophils Absolute Auto 0.1 X10*3/uL (0.0-0.4); Hemoglobin 14.4 g/dl (14.0-18.0); Imm Gran Abs Auto 0.06 X10*3/uL (0.00-0.03); Lymphocytes Absolute Auto 2.3 X10*3/uL (1.2-4.9); Lymphocytes Percent Auto 36.7 % (20-40); Mean Corpuscular HGB Conc 32.7 g/dl (31.0-36.0); Mean Corpuscular Hemoglobin 28.9 pg (27.0-33.0); Mean Corpuscular Volume 88.4 fL (80.0-98.0); Mean Platelet Volume 11.3 fL (9.4-12.4); Monocytes Absolute Auto 0.8 X10*3/uL (0.1-1.2); Monocytes Percent Auto 13.7 % (2-11); Neutrophils Absolute Auto 2.8 x10*3/uL (2.0-8.3); Neutrophils Percent Auto 46.3 % (45-73); Platelet Count 192 X10*3/uL (160-400); Red Blood Count 4.98 X10*6/uL (4.60-5.80); Red Cell Distribution Width 12.8 % (11.0-16.0); White Blood Count 6.1 X10*3/uL (4.8-10.8)
[2023-08-08 06:44] LABS: Vancomycin Random 13.5 mcg/mL (15-20)
[2023-08-08 06:48] LABS: Alanine Aminotransferase 8 U/L (0-40); Albumin Level 3.7 g/dL (3.5-5.0); Alkaline Phosphatase 107 U/L (39-117); Anion Gap 14 (12-20); Aspartate Amino Transferase 14 U/L (5-37); Bilirubin Total 0.2 mg/dL (0.0-1.0); Blood Urea Nitrogen 15 mg/dL (9-16); Calcium 9.1 mg/dL (8.4-10.2); Carbon Dioxide 26 mmol/L (22-29); Chloride 106 mmol/L (96-108); Creatinine Clr Calc Pharmacy 54.3; Estimated Glomerular Filt Rate 39; Glucose Fasting 154 mg/dL (60-99); Potassium 3.5 mmol/L (3.3-5.1); Sodium 142 mmol/L (135-145); Total Protein 7.1 g/dL (6.5-8.0)
[2023-08-08 07:26] VITALS: BP 118/70; PULSE 64; RESP 16; TEMP 36.1; O2SAT 95
[2023-08-08] MEDS: Insulin Lispro 100 UNIT/ML 3 ML VIAL SUBCUT ×7 (07:50→20:26)
[2023-08-08] MEDS: vancomycin HCL 1,500 MG in 0.9 % Sodium Chloride 500 ML 333 MG IV (07:52)
[2023-08-08] MEDS: Apixaban 5 MG TABLET PO ×2 (09:48→20:25)
[2023-08-08] MEDS: amLODIPine Besylate 5 MG TABLET PO (09:48)
[2023-08-08] MEDS: Loperamide HCl 2 MG CAPSULE PO ×2 (11:21→18:27)
[2023-08-08 11:45] VITALS: BP 122/75; PULSE 76; RESP 18; TEMP 36.5; O2SAT 97
--- NOTE | 2023-08-08 13:36 | P.PNIM_ITS ---
Subjective Subjective Date of Service: 08/08/23 Interval History: No acute issues overnight. Voices no complaints related to osteomyelitis Review of Systems Denies recurrent chest pain Denies shortness of breath Denies fever chills Denies nausea vomiting diarrhea Physical Exam 2 Vital Signs: Vital Signs: Last Vital Signs Temp 97.7 F 08/08/23 11:45 Pulse 76 08/08/23 11:45 Resp 18 08/08/23 11:45 BP 122/75 08/08/23 11:45 Pulse Ox 97 08/08/23 11:45 O2 Del Method Room Air 08/08/23 11:45 BMI result Body Mass Index 32.1 Const: Other: Awake alert no acute distress Resp: Other: Clear to auscultation bilaterally no rales rhonchi or wheezes Cardio: Other: No S4; positive S1-S2; no S3 murmurs rubs or gallops GI: Other: Soft nontender nondistended normoactive bowel sounds Extrem: Other: No edema bilaterally Objective Data Active Medications Acetaminophen (Acetaminophen 325 Mg Tablet) 650 mg PO Q6H PRN PRN Reason: Pain, Mild (Pain Scale 1-3) Amlodipine Besylate (Amlodipine Besylate 5 Mg Tablet) 5 mg PO DAILY [facility]; Protocol Last Admin: 08/08/23 09:48 Dose: 5 mg Documented By: DEVIKA Apixaban (Apixaban 5 Mg Tablet) 5 mg PO BID [facility] Last Admin: 08/08/23 09:48 Dose: 5 mg Documented By: DEVIKA Atorvastatin Calcium (Atorvastatin Calcium 40 Mg Tablet) 40 mg PO BEDTIME [facility] Last Admin: 08/07/23 20:45 Dose: 40 mg Documented By: HANH Dextrose (Dextrose 50 % 25 Gm/50 Ml Syringe) 25 gm IVPUSH Q15M PRN; Protocol PRN Reason: per Hypoglycemia Standing Ord. Glucose (Glucose Gel 15 Gm Gel..Gram.) 15 gm PO Q15M PRN; Protocol PRN Reason: per Hypoglycemia Standing Ord. Piperacillin Sod/Tazobactam (Sod 3.375 gm/ Sodium Chloride) 50 mls @ 100 mls/hr IV Q6H [facility] Last Admin: 08/08/23 12:47 Dose: 100 mls/hr Documented By: DEVIKA Vancomycin HCl 1,500 mg/ (Sodium Chloride) 500 mls @ 333.333 mls/hr IV Q24H [facility] Last Infusion: 08/08/23 09:53 Dose: Infused Documented By: DEVIKA Insulin Glargine (Insulin Glargine,Hum.Rec.Anlog 100 Unit/Ml 10 Ml Vial) 8 unit SUBCUT BEDTIME [facility] Last Admin: 08/07/23 20:45 Dose: 8 unit Documented By: HANH Insulin Human Lispro (Insulin Lispro 100 Unit/Ml 3 Ml Vial) 4 unit SUBCUT TIDAC [facility] Last Admin: 08/08/23 11:57 Dose: 4 unit Documented By: DEVIKA Insulin Human Lispro (Insulin Lispro 100 Unit/Ml 3 Ml Vial) 0 unit SUBCUT QIDACHS [facility]; Protocol Last Admin: 08/08/23 11:58 Dose: 2 unit Documented By: DEVIKA Loperamide HCl (Loperamide Hcl 2 Mg Capsule) 2 mg PO Q6H PRN PRN Reason: Diarrhea Last Admin: 08/08/23 11:21 Dose: 2 mg Documented By: DEVIKA Pt Own (Everolimus 1 (Mg Tablet)) 2 mg PO BID [facility] Last Admin: 08/08/23 09:49 Dose: 2 mg Documented By: DEVIKA Pt Own ( Mycophenolate Sodium 180 Mg Tablet, Delayed Release (Dr/Ec)) 540 mg PO BID [facility] Last Admin: 08/08/23 09:48 Dose: 540 mg Documented By: DEVIKA Pharmacy Consult (Consult Rx Vancomycin Dosing) 1 each MISCELLANE DAILY PRN PRN Reason: Consult order Sodium Chloride (0.9 % Sodium Chloride Flush 3 Ml Syringe) 3 ml IVFLUSH QSHIFT [facility] Last Admin: 08/08/23 09:48 Dose: 3 ml Documented By: DEVIKA Labs 08/08/23 05:44 08/08/23 05:44 Labs: Laboratory Results - last 24 hr 08/08/23 05:44 MCV 88.4 MCH 28.9 MCHC 32.7 RDW 12.8 Plt Count 192 MPV 11.3 Immature Gran % (Auto) 1.0 H Neut % (Auto) 46.3 Lymph % (Auto) 36.7 [place] % (Auto) 13.7 H Eos % (Auto) 2.0 Baso % (Auto) 0.3 Lymph # (Auto) 2.3 [place] # (Auto) 0.8 Eos # (Auto) 0.1 Baso # (Auto) 0.0 Abs Immat Gran (auto) 0.06 H Absolute Neuts (auto) 2.8 Absolute Nucleated RBC 0.000 Nucleated RBC % (auto) 0.0 Anion Gap 14 Estim Creat Clear Calc 54.3 Estimated GFR 39 Fasting Glucose 154 H Calcium 9.1 Total Bilirubin 0.2 AST 14 ALT 8 Alkaline Phosphatase 107 Total Protein 7.1 Albumin 3.7 Random Vancomycin 13.5 L Assessment and Plan (1) Osteomyelitis: Status: Acute (2) CKD (chronic kidney disease) stage 3, GFR 30-59 ml/min: Status: Acute Plan 53-year-old male known vasculopath falls outpatient with vascular surgery comes in with chronic right 1st distal phalanx wound that is not improving. Has had outpatient workup. X-ray consistent with osteomyelitis 1. Osteomyelitis right 1st toe distal aspect -vancomycin/Zosyn (4) -blood cultures negative x 48h -vascular to book imaging study 08/10 -further treatments based on forthcoming data 2.CKD S/P renal transplant -everolimus/mycophenolate. -hold ARB morning of procedure -appreciate nephrology input -follow renals/divalents 3.DM II -acceptable control on current therapies -lispro correctional scale -adjust as indicated 4.Chronic atrial fibrillation -rate control acceptable -continue Khai Ridley Full code Patient will require ongoing hospitalization for IV antibiotics to treat osteomyelitis as well as specialty treatment from vascular surgery Quality Stroke Does the patient have a stroke diagnosis?: No VTE Prior VTE?: No VTE Risk Level:: Medical - moderate - high VTE Device Contraindication: Treatment Not Indicated VTE Drug Contraindication: Treatment Not Indicated
[2023-08-08 15:13] VITALS: BP 146/69; PULSE 79; RESP 18; TEMP 36.7; O2SAT 96
[2023-08-08 20:00] VITALS: BP 131/61; PULSE 75; RESP 16; TEMP 36.1; O2SAT 99
[2023-08-08] MEDS: Atorvastatin Calcium 40 MG TABLET PO (20:25)
[2023-08-08] MEDS: Insulin Glargine,Hum.rec.anlog 100 UNIT/ML 10 ML VIAL 8 UNIT SUBCUT (20:27)
--- NOTE | 2023-08-08 20:31 | PC.NURSE ---
pt's blood sugar was 271 on his device, 6 units of lispro given and 8 units of lantus given.
[2023-08-09 03:35] VITALS: BP 137/69; PULSE 71; RESP 16; TEMP 36.6; O2SAT 96
[2023-08-09] MEDS: Piperacillin Sodium/Tazobactam 3.375 GM in 0.9 % Sodium Chloride 50 ML IV ×4 (05:46→23:55)
[2023-08-09 05:56] LABS: Vancomycin Random 16.6 mcg/mL (15-20)
[2023-08-09 05:57] LABS: Creatinine Clr Calc Pharmacy 55.5; Estimated Glomerular Filt Rate 40
[2023-08-09] MEDS: vancomycin HCL 1,500 MG in 0.9 % Sodium Chloride 500 ML 333 MG IV (06:24)
[2023-08-09 07:36] VITALS: BP 154/83; PULSE 68; RESP 16; TEMP 36.6; O2SAT 96
[2023-08-09] MEDS: vancomycin HCL 1,250 MG in 0.9 % Sodium Chloride 250 ML 166.67 MG IV (07:52)
[2023-08-09] MEDS: Insulin Lispro 100 UNIT/ML 3 ML VIAL SUBCUT ×5 (07:52→20:11)
[2023-08-09] MEDS: amLODIPine Besylate 5 MG TABLET PO (08:24)
[2023-08-09] MEDS: 0.9 % Sodium Chloride Flush 3 ML SYRINGE IVFLUSH ×2 (08:26→17:15)
--- NOTE | 2023-08-09 09:58 | HE.PHANOTE ---
RE: Vanco Trough 08/09 - 16.6, changed dose to 1250 Q24H predicted AUC 529, predicted trough 15.3. Nurse hung 1500mg bag of 1500mg on 08/09 for 2-3 minutes before dose was changed, stopped and replaced with 1250mg bag. next trough 08/10 0600.
--- NOTE | 2023-08-09 11:30 | PC.NURSE ---
Addendum entered by Jud Bustamante RN 08/09/23 17:39: 4 units of lispro given with dinner per orders. Pt tolerated well. Addendum entered by Jud Bustamante RN 08/09/23 16:32: 1632 pt reports blood sugar to be 146 (per Pts device). Addendum entered by Jud Bustamante RN 08/09/23 13:34: Noon blood sugar (per pts device) 217. 8 units of lispro given total, per orders + sliding scale coverage. Original Note: Pt has order for blood sugar via personal device, AM sugar 136, 4units lispro given per orders.
--- NOTE | 2023-08-09 12:52 | HO.PM.IMPN ---
Subjective Subjective Date of Service: 08/09/23 Interval History: Remains tolerant of therapies. For vascular intervention in a.m. Review of Systems Denies recurrent chest pain Denies shortness of breath Denies fever chills Denies nausea vomiting diarrhea Physical Exam Vital Signs: Vital Signs: Last Vital Signs Temp 97.8 F 08/09/23 07:36 Pulse 68 08/09/23 07:36 Resp 16 08/09/23 07:36 BP 154/83 H 08/09/23 07:36 Pulse Ox 96 08/09/23 07:36 O2 Del Method Room Air 08/09/23 07:36 BMI result Body Mass Index 32.1 Const: Other: Awake alert no acute distress Resp: Other: Clear to auscultation bilaterally no rales rhonchi or wheezes Cardio: Other: No S4; positive S1-S2; no S3 murmurs rubs or gallops GI: Other: Soft nontender nondistended normoactive bowel sounds Extrem: Other: No edema bilaterally Objective Data Active Medications Acetaminophen (Acetaminophen 325 Mg Tablet) 650 mg PO Q6H PRN PRN Reason: Pain, Mild (Pain Scale 1-3) Amlodipine Besylate (Amlodipine Besylate 5 Mg Tablet) 5 mg PO DAILY [facility]; Protocol Last Admin: 08/09/23 08:24 Dose: 5 mg Documented By: CAMPOS Apixaban (Apixaban 5 Mg Tablet) 5 mg PO BID [facility] Last Admin: 08/09/23 10:41 Dose: Not Given Documented By: CAMPOS Non-Admin Reason: Patient Refused Atorvastatin Calcium (Atorvastatin Calcium 40 Mg Tablet) 40 mg PO BEDTIME [facility] Last Admin: 08/08/23 20:25 Dose: 40 mg Documented By: AUSTIN Dextrose (Dextrose 50 % 25 Gm/50 Ml Syringe) 25 gm IVPUSH Q15M PRN; Protocol PRN Reason: per Hypoglycemia Standing Ord. Glucose (Glucose Gel 15 Gm Gel..Gram.) 15 gm PO Q15M PRN; Protocol PRN Reason: per Hypoglycemia Standing Ord. Piperacillin Sod/Tazobactam (Sod 3.375 gm/ Sodium Chloride) 50 mls @ 100 mls/hr IV Q6H [facility] Last Admin: 08/09/23 12:20 Dose: 100 mls/hr Documented By: CAMPOS Vancomycin HCl 1,250 mg/ (Sodium Chloride) 250 mls @ 166.667 mls/hr IV Q24H [facility] Last Infusion: 08/09/23 09:22 Dose: Infused Documented By: CAMPOS Insulin Glargine (Insulin Glargine,Hum.Rec.Anlog 100 Unit/Ml 10 Ml Vial) 8 unit SUBCUT BEDTIME [facility] Last Admin: 08/08/23 20:27 Dose: 8 unit Documented By: AUSTIN Insulin Human Lispro (Insulin Lispro 100 Unit/Ml 3 Ml Vial) 4 unit SUBCUT TIDAC [facility] Last Admin: 08/09/23 12:15 Dose: 4 unit Documented By: CAMPOS Insulin Human Lispro (Insulin Lispro 100 Unit/Ml 3 Ml Vial) 0 unit SUBCUT QIDACHS [facility]; Protocol Last Admin: 08/09/23 12:15 Dose: 4 unit Documented By: CAMPOS Loperamide HCl (Loperamide Hcl 2 Mg Capsule) 2 mg PO Q6H PRN PRN Reason: Diarrhea Last Admin: 08/08/23 18:27 Dose: 2 mg Documented By: DEVIKA Pt Own (Everolimus 1 (Mg Tablet)) 2 mg PO BID [facility] Last Admin: 08/09/23 08:24 Dose: 2 mg Documented By: CAMPOS Pt Own ( Mycophenolate Sodium 180 Mg Tablet, Delayed Release (Dr/Ec)) 540 mg PO BID [facility] Last Admin: 08/09/23 08:25 Dose: 540 mg Documented By: CAMPOS Pharmacy Consult (Consult Rx Vancomycin Dosing) 1 each MISCELLANE DAILY PRN PRN Reason: Consult order Sodium Chloride (0.9 % Sodium Chloride Flush 3 Ml Syringe) 3 ml IVFLUSH QSHIFT [facility] Last Admin: 08/09/23 08:26 Dose: 3 ml Documented By: CAMPOS Labs 08/08/23 05:44 08/09/23 05:07 Labs: Laboratory Results - last 24 hr 08/09/23 05:07 Hold Purple Top SEE NOTE Estim Creat Clear Calc 55.5 Estimated GFR 40 Random Vancomycin 16.6 Assessment and Plan (1) Osteomyelitis: Status: Acute (2) CKD (chronic kidney disease) stage 3, GFR 30-59 ml/min: Status: Acute Plan 53-year-old male known vasculopath falls outpatient with vascular surgery comes in with chronic right 1st distal phalanx wound that is not improving. Has had outpatient workup. X-ray consistent with osteomyelitis 1. Osteomyelitis right 1st toe distal aspect -vancomycin/Zosyn (5) -blood cultures negative x 48h... PICC line in a.m. -vascular intervention in a.m. -Eliquis held/NPO 2.CKD S/P renal transplant -everolimus/mycophenolate. -hold ARB morning of procedure -appreciate nephrology input -follow renals/divalents 3.DM II -acceptable control on current therapies -lispro correctional scale -adjust as indicated 4.Chronic atrial fibrillation -rate control acceptable -continue Eliquis Eliquis Full code Patient will require ongoing hospitalization for IV antibiotics to treat osteomyelitis as well as specialty treatment from vascular surgery Quality Stroke Does the patient have a stroke diagnosis?: No VTE Prior VTE?: No VTE Risk Level:: Medical - moderate - high VTE Device Contraindication: Treatment Not Indicated VTE Drug Contraindication: Treatment Not Indicated
[2023-08-09 15:16] VITALS: BP 172/83; PULSE 65; RESP 16; TEMP 36.5; O2SAT 94
--- NOTE | 2023-08-09 17:40 | HO.SKINPHOTO ---
Location: Right Great toe Category: DM ulcer Wound cleansed with NS, pat dried, alginate applied, then gauze wrap. Pt tolerated well denies pain.
[2023-08-09 18:00] VITALS: BP 137/65
[2023-08-09 19:52] VITALS: BP 161/77; PULSE 66; RESP 18; TEMP 36.4; O2SAT 97
[2023-08-09] MEDS: Atorvastatin Calcium 40 MG TABLET PO (20:10)
[2023-08-09] MEDS: Insulin Glargine,Hum.rec.anlog 100 UNIT/ML 10 ML VIAL 8 UNIT SUBCUT (20:11)
--- NOTE | 2023-08-09 22:42 | PC.NURSE ---
At 20:00, pt's sugar was 272 on pt's own device. 6 units of Humalog was given based on sliding scale and 8 units of Lantus per MAR.
[2023-08-09] MEDS: Loperamide HCl 2 MG CAPSULE PO (23:19)
[2023-08-10] VITALS (9 sets, daily range): BP systolic 129–160; BP diastolic 61–78; PULSE 60–80; RESP 16–18; TEMP 36.3–37.3; O2SAT 94–97
[2023-08-10] MEDS: Piperacillin Sodium/Tazobactam 3.375 GM in 0.9 % Sodium Chloride 50 ML IV ×3 (06:03→17:46)
[2023-08-10 08:41] LABS: MANUAL DIFF FLAG NO
--- NOTE | 2023-08-10 08:45 | P.PNIM_ITS ---
Subjective Subjective Date of Service: 08/10/23 Review of Systems Follow up osteomyelitis doing well, no pain ambulating in room Physical Exam 2 Vital Signs: Vital Signs: Last Vital Signs Temp 97.6 F 08/10/23 07:38 Pulse 80 08/10/23 07:38 Resp 18 08/10/23 07:38 BP 147/70 H 08/10/23 07:38 Pulse Ox 96 08/10/23 07:38 O2 Del Method Room Air 08/10/23 07:38 BMI result Body Mass Index 32.1 Appearing in no acute distress lung sounds are clear to auscultation heart regular rate rhythm, clear S1, S2 positive bowel sounds, abdomen is soft, nontender neuro patient is alert x3, no focal deficits Objective Data Active Medications Acetaminophen (Acetaminophen 325 Mg Tablet) 650 mg PO Q6H PRN PRN Reason: Pain, Mild (Pain Scale 1-3) Amlodipine Besylate (Amlodipine Besylate 5 Mg Tablet) 5 mg PO DAILY [facility]; Protocol Last Admin: 08/09/23 08:24 Dose: 5 mg Documented By: CAMPOS Atorvastatin Calcium (Atorvastatin Calcium 40 Mg Tablet) 40 mg PO BEDTIME [facility] Last Admin: 08/09/23 20:10 Dose: 40 mg Documented By: KADI Dextrose (Dextrose 50 % 25 Gm/50 Ml Syringe) 25 gm IVPUSH Q15M PRN; Protocol PRN Reason: per Hypoglycemia Standing Ord. Glucose (Glucose Gel 15 Gm Gel..Gram.) 15 gm PO Q15M PRN; Protocol PRN Reason: per Hypoglycemia Standing Ord. Piperacillin Sod/Tazobactam (Sod 3.375 gm/ Sodium Chloride) 50 mls @ 100 mls/hr IV Q6H [facility] Last Infusion: 08/10/23 06:34 Dose: Infused Documented By: KADI Vancomycin HCl 1,250 mg/ (Sodium Chloride) 250 mls @ 166.667 mls/hr IV Q24H [facility] Last Infusion: 08/09/23 09:22 Dose: Infused Documented By: CAMPOS Insulin Glargine (Insulin Glargine,Hum.Rec.Anlog 100 Unit/Ml 10 Ml Vial) 8 unit SUBCUT BEDTIME [facility] Last Admin: 08/09/23 20:11 Dose: 8 unit Documented By: KADI Insulin Human Lispro (Insulin Lispro 100 Unit/Ml 3 Ml Vial) 4 unit SUBCUT TIDAC [facility] Last Admin: 08/10/23 07:39 Dose: Not Given Documented By: CUATE Non-Admin Reason: NPO Insulin Human Lispro (Insulin Lispro 100 Unit/Ml 3 Ml Vial) 0 unit SUBCUT QIDACHS [facility]; Protocol Last Admin: 08/10/23 07:39 Dose: Not Given Documented By: CUATE Non-Admin Reason: NPO Loperamide HCl (Loperamide Hcl 2 Mg Capsule) 2 mg PO Q6H PRN PRN Reason: Diarrhea Last Admin: 08/09/23 23:19 Dose: 2 mg Documented By: KADI Pt Own (Everolimus 1 (Mg Tablet)) 2 mg PO BID [facility] Last Admin: 08/09/23 20:09 Dose: 2 mg Documented By: KADI Pt Own ( Mycophenolate Sodium 180 Mg Tablet, Delayed Release (Dr/Ec)) 540 mg PO BID [facility] Last Admin: 08/09/23 20:08 Dose: 540 mg Documented By: KADI Pharmacy Consult (Consult Rx Vancomycin Dosing) 1 each MISCELLANE DAILY PRN PRN Reason: Consult order Sodium Chloride (0.9 % Sodium Chloride Flush 3 Ml Syringe) 3 ml IVFLUSH QSHIFT [facility] Last Admin: 08/10/23 00:00 Dose: Not Given Documented By: KADI Non-Admin Reason: Previously Administered Labs 08/10/23 08:24 08/10/23 08:24 Microbiology Microbiology Results: Microbiology 08/05/23 02:20 Blood Culture - Final Blood - Venous No growth after 5 days. 08/05/23 02:01 Blood Culture - Final Blood - Venous No growth after 5 days. Assessment and Plan (1) Osteomyelitis: Status: Acute (2) CKD (chronic kidney disease) stage 3, GFR 30-59 ml/min: Status: Acute Plan 53-year-old male known vasculopath falls outpatient with vascular surgery comes in with chronic right 1st distal phalanx wound that is not improving. Has had outpatient workup. X-ray consistent with osteomyelitis Osteomyelitis right 1st toe distal aspect continue vancomycin/Zosyn blood cultures negative x 48h Alston catheter ordered vascular intervention in a.m. as per Dr. Elida hill/ROMEOO ID following >6 weeks abx CKD 4 S/P renal transplant everolimus/mycophenolate. hold ARB morning of procedure nephrology following DM II acceptable control on current therapies lispro correctional scale adjust as indicated Chronic atrial fibrillation rate control acceptable continue Eliquis DVT prophylaxis with Eliquis, on hold for vascular procedure Attending Dr. Corcoran Full code Patient will require ongoing hospitalization for IV antibiotics to treat osteomyelitis as well as specialty treatment from vascular surgery Quality Stroke Does the patient have a stroke diagnosis?: No VTE Prior VTE?: No VTE Risk Level:: Medical - moderate - high VTE Device Contraindication: Treatment Not Indicated VTE Drug Contraindication: Treatment Not Indicated
[2023-08-10 08:48] LABS: Basophils Percent Auto 0.2 % (0-2); Eosinophils Absolute Auto 0.1 X10*3/uL (0.0-0.4); Eosinophils Percent Auto 2.2 % (0-4); Hemoglobin 14.7 g/dl (14.0-18.0); Imm Gran Abs Auto 0.03 X10*3/uL (0.00-0.03); Imm Gran Pct Auto 0.5 % (0.0-0.4); Lymphocytes Absolute Auto 1.6 X10*3/uL (1.2-4.9); Lymphocytes Percent Auto 26.1 % (20-40); Mean Corpuscular Hemoglobin 28.2 pg (27.0-33.0); Mean Corpuscular Volume 88.1 fL (80.0-98.0); Monocytes Absolute Auto 0.6 X10*3/uL (0.1-1.2); Monocytes Percent Auto 10.7 % (2-11); Neutrophils Absolute Auto 3.6 x10*3/uL (2.0-8.3); Neutrophils Percent Auto 60.3 % (45-73); Platelet Count 183 X10*3/uL (160-400); Red Blood Count 5.22 X10*6/uL (4.60-5.80); Red Cell Distribution Width 12.9 % (11.0-16.0)
[2023-08-10 09:01] LABS: Vancomycin Random 7.2 mcg/mL (15-20)
[2023-08-10 09:03] LABS: Alanine Aminotransferase 7 U/L (0-40); Albumin Level 3.9 g/dL (3.5-5.0); Alkaline Phosphatase 99 U/L (39-117); Anion Gap 10 (12-20); Aspartate Amino Transferase 12 U/L (5-37); Bilirubin Total 0.3 mg/dL (0.0-1.0); Blood Urea Nitrogen 15 mg/dL (9-16); Calcium 9.1 mg/dL (8.4-10.2); Carbon Dioxide 26 mmol/L (22-29); Chloride 109 mmol/L (96-108); Creatinine Clr Calc Pharmacy 52.9; Estimated Glomerular Filt Rate 38; Glucose Fasting 130 mg/dL (60-99); Potassium 3.6 mmol/L (3.3-5.1); Sodium 141 mmol/L (135-145); Total Protein 7.4 g/dL (6.5-8.0)
--- NOTE | 2023-08-10 09:23 | HE.PHANOTE ---
RE: VANCO DOSING Patient refused labs (due at 0600) at first so lab wasn't draw until around 0900. Random came back as 7.2, can't figure out the reason for it being so low. Dose is change to 750 mg q12h (q12h so we can monitor more closely). Next random is scheduled for 08/10/23 @1900 so we can see if level is actually going up or not.
[2023-08-10] MEDS: amLODIPine Besylate 5 MG TABLET PO (09:27)
[2023-08-10] MEDS: vancomycin HCL 750 MG in 0.9 % Sodium Chloride 250 ML 265 MG IV ×2 (09:28→21:32)
--- NOTE | 2023-08-10 14:20 | MHC.CM.PN ---
per rounds not dc ready at this time plan remains home
--- NOTE | 2023-08-10 15:40 | P.OP_ITS ---
Operative Note Operative Note Date of Service: 08/10/23 Narrative: Angiogram report from [facility] Preoperative diagnosis: Atherosclerosis of right lower extremity with nonhealing ulcer Postoperative diagnosis: Same Procedure: 1. Ultrasound-guided left common femoral access 2. Aortogram with right lower extremity runoff Surgeon:Bart Marrero M.D., FACS, RPVI Software Implementation Specialist:None Anesthesia: Local with moderate conscious sedation. Total intraservice moderate sedation time was 25 minutes. I monitored the patient's level of consciousness and physiologic status continuously throughout the procedure. Specimens:none Drains:none Estimated blood loss: Less than 10 ml Implant: None Indications: Very pleasant 53-year-old gentleman has a nonhealing right great toe ulcer. He had noninvasive testing dated 07/13/2023 which demonstrated right below-knee vessel disease where it became monophasic. Now presents for endovascular intervention The patient has signed the informed consent after reviewing risks, complications, benefits, and alternatives previously discussed with the patient. The patient was given the opportunity to ask any additional questions or voice any concerns. All questions were answered to the patient's satisfaction. Procedure in detail: Patient was brought to the angiography suite prior to which a time-out was called for patient identification and site verification. Bilateral groins were prepped and draped in the standard surgical fashion. Under ultrasound guidance left common femoral was punctured with micro puncture needle and wire. Subsequently a precision 4 Chilean sheath was then placed. Bentson wire was advanced to the level of the aorta. 4 [place]an Flush catheter was brought up and parked at the level of the renal arteries. Aortogram was then undertaken. Catheter was brought down to the level of the iliac bifurc ation. Iliacs were subsequently imaged. Catheter was then brought in up and over to the right side SFA. Runoff study was then undertaken. There was no intervention indicated. Catheter wire sheath was removed. 10 minutes direct pressure was held. Patient tolerated the procedure well. Interpretation of films: 1. Ultrasound demonstrates appropriate femoral puncture. Image of which was saved. 2. Aortogram demonstrates appropriate caliber aorta. Minimal disease. Appropriate take-off of the renals. 3. Iliac images demonstrate no significant disease 4. Right Leg Common femoral artery: No significant disease Profundus Femoris: No significant disease Superficial femoral artery: No significant disease Popliteal artery (p1,p2,p3): No significant disease Anterior tibial artery: Good runoff to the foot Peroneal artery: Good runoff to the Posterior tibial artery: Multiple stenotic areas but does reconstitute towards the ankle Dorsalis pedis/plantar arch: Incomplete but present and does have enough flow to supply the great toe Conclusion: 1. Successful diagnostic angiogram. No intervention indicated. 2. Anticoagulation status: No change This note is constructed using voice recognition software. While every effort has been made to ensure accuracy, technical communicator errors may have been included. Thank you for allowing me to participate in the care of your patient. Yours sincerely, Bart Marrero MD, FACS, R.P.V.I.
[2023-08-10 19:39] LABS: Vancomycin Random 9.6 mcg/mL (15-20)
[2023-08-10] MEDS: Atorvastatin Calcium 40 MG TABLET PO (19:47)
[2023-08-10] MEDS: Insulin Glargine,Hum.rec.anlog 100 UNIT/ML 10 ML VIAL 8 UNIT SUBCUT (19:51)
[2023-08-10] MEDS: Insulin Lispro 100 UNIT/ML 3 ML VIAL SUBCUT (19:52)
[2023-08-10] MEDS: 0.9 % Sodium Chloride Flush 3 ML SYRINGE IVFLUSH (23:49)
[2023-08-11] MEDS: Piperacillin Sodium/Tazobactam 3.375 GM in 0.9 % Sodium Chloride 50 ML IV ×3 (00:34→12:28)
[2023-08-11 04:00] VITALS: BP 143/73; PULSE 68; RESP 16; TEMP 36; O2SAT 96
[2023-08-11 06:29] LABS: Creatinine Clr Calc Pharmacy 57.8; Estimated Glomerular Filt Rate 42
[2023-08-11 07:28] VITALS: BP 148/67; PULSE 62; RESP 18; TEMP 36.2; O2SAT 100
[2023-08-11] MEDS: 0.9 % Sodium Chloride Flush 3 ML SYRINGE IVFLUSH (08:34)
[2023-08-11] MEDS: amLODIPine Besylate 5 MG TABLET PO (08:34)
[2023-08-11] MEDS: vancomycin HCL 750 MG in 0.9 % Sodium Chloride 250 ML 265 MG IV (08:40)
--- NOTE | 2023-08-11 10:42 | PC.NURSE ---
Pt upset that he can't eat. Attempting to educate patient about NPO and surgeries, unable to comprehend and continues to talk over this newswriter. Unable to educate patient at this time. customer service specialist GSR in to take patients lunch order. Pt continues to swear and curse at staff.
--- NOTE | 2023-08-11 10:53 | P.DS_ITS ---
DS: Providers Provider Date of Service: 08/11/23 Date of admission: 08/05/23 03:17 Primary care physician: Geovanni Pink MD Consults: 08/05/23 06:28 Consult to Wound Care Routine Reason for consultation: right first toe ulcer Has provider been notified: Yes 08/05/23 09:49 Consult to Vascular Surgery [place]ine [place] [facility] [place] [facility] Reason for consultation[place] Osteo Has provider been notified: Yes 08/09/23 12:55 Consult to Infectious Diseases Routine [place]ing [place] [facility] [place] Reason for consultation: Osteomyelitis Has provider been notified: Yes DS: Diagnosis Discharge Diagnosis (1) Osteomyelitis: Status: Acute (2) CKD (chronic kidney disease) stage 3, GFR 30-59 ml/min: Status: Acute DS: Summary Hospital Course Hospital Course: History and physical as per admitting provider. Raheem Castro years old man with past medical history significant for type 2 diabetes mellitus on insulin, chronic kidney disease s/p renal transplant on antirejection medications, essential hypertension and hyperlipidemia presents to the emergency department complaining of right 1st toe chronic wound that has been getting worse. He has not noted discharges from the 1. He reported fever of 100.6 at home. He has been getting care at wound clinic. He denied any chills, nausea, vomiting, dizziness or palpitations. He denied any cardiopulmonary, gastrointestinal or genitourinary symptoms. In the ED, he was found to have normal vital signs. Blood workup showed no leukocytosis. Renal function is around baseline. There are no significant electrolyte imbalances. CRP is elevated. Right foot x-ray showed new erosive changes and cortical disruption along the tuft of the distal phalanx of the 1st toe with surrounding soft tissue swelling and ulcerations - consistent with osteomyelitis. ED tx: NS 1 L bolus, vancomycin 2 g IV. 53-year-old man admitted with osteomyelitis of right 1st toe. Started on IV vancomycin and Zosyn. Blood cultures negative after 48 hours. Alston catheter placed due to history of renal transplantation and CKD. Eliquis was held for this and vascular intervention. Had angiogram of the right lower extremity due to nonhealing ulcer on 08/10/2023 with findings of successful diagnostic angiogram with no intervention indicated. Plan is for patient to be discharged home with 6 weeks of IV Daptomycin. Patient reported that he has a history of osteomyelitis in the past and has had IV antibiotics at home and will likely require minimal teaching but will be able to administer it himself. CKD stage 4 with renal transplantation. Continue home medications Diabetes mellitus type 2. Continue insulin and Lantus Chronic atrial fibrillation Continue Eliquis Hypertension. Continue amlodipine, valsartan Time Attestation Discharge coordination time: Greater than 30 minutes Quality: Safe Use of Opioids Does Pt have an Active Cancer Diagnosis on the Problem List?: No Quality: Stroke Does the patient have a stroke diagnosis?: No Physical Exam Vital Signs: Vital Signs: Last Vital Signs Temp 97.1 F 08/11/23 07:28 Pulse 62 08/11/23 07:28 Resp 18 08/11/23 07:28 BP 148/67 H 08/11/23 07:28 Pulse Ox 100 08/11/23 07:28 O2 Del Method Room Air 08/11/23 07:28 BMI result Body Mass Index 32.1 Appearing in no acute distress head is normocephalic atraumatic eyes pupils are PERRLA sclera is anicteric mouth throat mucous membranes are intact and moist neck is supple no lymphadenopathy, no JVD noted lung sounds are clear to auscultation heart regular rate rhythm, clear S1, S2 positive bowel sounds, abdomen is soft, nontender neuro patient is alert x3, no focal deficits DS: Data Data Completed and Pending Completed studies during hospitalization [Text1]: Procedures Detachment at Left 3rd Toe, Mid, Open Approach (01/16/23) Detachment at Right 4th Toe, Complete, Open Approach (10/06/22) Fluoroscopy of Aorta and Bilateral Lower Extremity Arteries (10/06/22) Insertion of Infusion Device into Superior Vena Cava, Percutaneous Approach (01/16/23) Insertion of Tunneled Vascular Access Device into Chest Subcutaneous Tissue and Fascia, Percutaneous Approach (10/06/22) Ultrasonography of Superior Vena Cava, Guidance (01/16/23) Labs on day of discharge: Laboratory Results - last 24 hr 08/10/23 08/11/23 19:16 05:55 Hold Purple Top SEE NOTE Creatinine 1.73 H Estim Creat Clear Calc 57.8 Estimated GFR 42 Random Vancomycin 9.6 L Discharge Plan Discharge Anticipated Discharge Date/Time: 08/11/23 07:34 Patient Disposition: Home Health Service Discharge Diagnosis: Osteomyelitis Referrals: Geovanni Pink MD [Primary Care Provider] - 1 Week Discharge Medications: New daptomycin 500 mg recon soln 788 mg IV Q24H 42 Days Rx Instructions: administer over 30 mins Continued (DME) Ultra-Light Rollator Misc See Rx Instructions .ROUTE .MEDSUPPLY Qty: 1 0RF Rx Instructions: As directed (DME) 16 inch grab bar See Rx Instructions .Route .MEDSUPPLY Qty: 1 0RF Rx Instructions: As directed (DME) transport wheelchair See Rx Instructions .Route .MEDSUPPLY Qty: 1 0RF Rx Instructions: As directed (DME) bed assist handle See Rx Instructions .Route .MEDSUPPLY Qty: 1 0RF Rx Instructions: As directed Rayaldee 30 mcg Capsule,Extended Release 24 Hr 30 mcg PO BEDTIME insulin aspart U-100 [Novolog FlexPen U-100 Insulin] 100 unit/mL (3 mL) insulin pen 4 unit subcut TIDAC everolimus (immunosuppressive) 1 mg tablet 2 mg PO BID mycophenolate sodium 180 mg tablet,delayed release (DR/EC) 540 mg PO BID rosuvastatin 10 mg tablet 10 mg PO BEDTIME insulin glargine [Lantus Solostar U-100 Insulin] 100 unit/mL (3 mL) insulin pen 20 unit SUBCUT BEDTIME (DME) pen needle, diabetic 31 gauge x 3/16 needle See Rx Instructions subcut .MEDSUPPLY Qty: 50 Rx Instructions: As directed apixaban 5 mg tablet 5 mg PO BID (DME) lancets [FreeStyle Lancets] 28 gauge misc See Rx Instructions topical TID Qty: 100 Rx Instructions: As directed amlodipine 5 mg tablet 5 mg PO DAILY valsartan 40 mg tablet 40 mg PO DAILY Discharge Orders: Discharge Order (Routine); Ordered 08/11/23 Ordered By: Sasha Chahal Diet: Advance to usual diet Activity on Discharge: As tolerated Stand Alone Forms: Patient Portal Discharge page Other Ambulatory Orders: Basic Metabolic Panel (Routine) Timeframe: 3 Days Facility: [facility] - Location: Laboratory Ordered By: Sasha Chahal Complete Blood Count no Diff (Routine) Timeframe: 3 Days Facility: [facility] - Location: Laboratory Ordered By: Sasha Chahal Care Plan Goals: IV Daptomycin for 6 weeks via Alston catheter, last dose 09/01/2023 Health Concerns: Osteomyelitis Plan of Treatment: Follow-up with primary care provider as needed Take all medications as prescribed Assessment: See discharge summary
--- NOTE | 2023-08-11 12:21 | PM.EVENT ---
Event Note Date of Service: 08/11/23 Event Note: Procedure Note Right subclavian Alston catheter Indications: ESRD s/p transplant, iv antibiotics. Occluded neck veins Right subclavian 28 cm single lumen Alston placed. Tip at cavoatrial junction. Ok for use. Geoff [place] Interventional Radiology Time Spent With Patient Time: Total time managing care of this patient today ____ minutes.
--- NOTE | 2023-08-11 12:23 | MHC.CM.PN ---
Addendum entered by Kecia Bonilla RN 08/11/23 14:35: Patient has own ride home. [facility] and [facility] aware of dc. IMM was delivered. Original Note: EMR reviewed. Patient is medically cleared for dc home w/ [facility] and [facility] to complete IV abx. Patient will have leach cath in place and receive one dose of dapto prior to dc. [facility] will provide teach prior to dc. RN aware.
--- NOTE | 2023-08-11 12:35 | W.MHC.F2F ---
Service Date Service Date: 08/11/23 Encounter Date of encounter: 08/11/23 Reasons for Services Signs and symptoms assessed: Osteomyelitis Reason for [facility]: CV/CP assess and/or care, administration of IV, SQ, or IM injection and other (Lab monitoring) Homebound: Leaving the home is medically contraindicated at this time without the asist of a device and/or another person due th the listed conditions above and below. Reason homebound: weakness related to hospital stay Certification: Based on the above findings, I certify that this patient is confined to the home and needs intermittent [facility] care, physical therapy and/or speech therapy, or continues to need occupational therapy. The patient is under my care, and I have initiated the establishment of the plan of care. The patient will be followed by a physician who will periodically review the plan of care. Time Spent With Patient Time: Total time managing care of this patient today ____ minutes.
--- NOTE | 2023-08-11 13:11 | P.PNNP_ITS ---
Subjective Subjective Date of Service: 08/11/23 Interval history: Seen this AM. S/P angiogram yesterday. No new complaints Physical Exam 2 Vital Signs: Vital Signs: Last Vital Signs Temp 97.1 F 08/11/23 07:28 Pulse 62 08/11/23 07:28 Resp 18 08/11/23 07:28 BP 148/67 H 08/11/23 07:28 Pulse Ox 100 08/11/23 07:28 O2 Del Method Room Air 08/11/23 07:28 BMI result Body Mass Index 32.1 Const: General: comfortable and no acute distress O rientation/consciousness: patient oriented x3 HEENT: Head: Yes normocephalic Mouth: Normal oral and palatal mucosa present Eyes: EOM: EOMs intact bilaterally Neck: Neck: Yes supple Resp: Auscultation: clear to auscultation bilaterally Cardio: Jugular venous distension: no JVD Rate: regular rate GI: Palpation (GI): Soft to palpation Auscultation: normal bowel sounds : General: Yes no CVA tenderness Back/Spine/Pelvis: Back: no CVA tenderness Skin: General skin exam: no rashes or lesions noted Neuro: General: patient oriented x3 and moves all extremities Extrem: General: Yes no pedal edema Objective Data Labs 08/10/23 08:24 08/11/23 05:55 Labs: Laboratory Results - last 24 hr 08/10/23 08/11/23 19:16 05:55 Hold Purple Top SEE NOTE Creatinine 1.73 H Estim Creat Clear Calc 57.8 Estimated GFR 42 Random Vancomycin 9.6 L Microbiology Microbiology Results: Microbiology 08/05/23 02:20 Blood - Venous Blood Culture - Final No growth after 5 days. 08/05/23 02:01 Blood - Venous Blood Culture - Final No growth after 5 days. Procedures Date of Service Date of Service: 08/11/23 Assessment & Plan Assessment and plan (1) CKD (chronic kidney disease) stage 3, GFR 30-59 ml/min: Status: Acute (2) Renal transplant recipient: Status: Acute Plan Transplant renal function at baseline C/W current dose of Everolimus & MMF Needs better BS control @ home C/W rest of current management Shall arrange outpt F/U with me in 1 month when D/Kei Progress Note: Quality Stroke Does the patient have a stroke diagnosis?: No
--- NOTE | 2023-08-11 14:00 | HO.WOUND ---
Wound Consult: Initial 53yr old M? admitted to [facility] [place] on 08/05/23 - See progress notes and H&P for detailed history.? Wound consult placed for Right Chronic Great Toe Wound. ? Patient agreeable to assessment and photo documentation.? Patient follows with out patient wound clinic and is aware he should return to the clinic for follow up and care. Missed last fridays appointment due to inpatient admission - he reports he understands he should call for next available appointment. Right Great Toe Right Great Toe Etiology: ?Diabetic Wound?Present on Admission Measurements: 1cm x 0.8cm x 0.2cm Wound Bed: Full thickness tissue loss - moist yellow adherent slough Drainage / Odor: Serosang drainage Edges: ?Callused and dry Deanne wound: ?Thick dry calloused tissue - thickened nail noted - No Induration, Fluctuance or Warmth noted Pain: Denies reports neuropathy Goals of Treatment: ? Continue follow up with Outpt wound Clinic and Dr. Marrero - Topical treatment consider Iodosorb due to chronic nature of wound - product not available inpatient. Will treat with Betadine and Hydrofiber AG. Recommendations: 1. Right Great Toe - Cleanse with Betadine allow to dry. Cover wound bed with cut to size Hydrofiber cover with dry gauze / wrap. Change every other day.
[2023-08-11] MEDS: DAPTOmycin 650 MG in 0.9 % Sodium Chloride 50 ML 100 MG IV (14:19)
--- NOTE | 2023-08-11 14:54 | P.CNID_ITS ---
History of Present Illness Data of Consult Service Date: 08/11/23 Requesting physician: Sasha Chahal Primary Care Provider: Geovanni Pink MD HPI Reason for consult: right great infection He presents with nonheaing wound right great toe on 08/05. He has seen wound clinic and has ulcer tip osteomyelitis, There is no organism. I had seen him earlier and had MSSA bacteremia in 2022. He has temperature 100.6 and ESR 92 on admission. Review of Systems 2 Review of Systems: Yes all other systems are reviewed and are negative [facility] Past Medical History Medical History MSSA bacteremia Osteomyelitis of third toe of left foot S/P angiogram of extremity (10/08/22) Diabetic ulcer of right foot Osteomyelitis Wound of right foot PAD (peripheral artery disease) Chronic right shoulder pain Multinodular goiter Testicular cancer Bleeding internal hemorrhoids Seminoma Paresthesia and pain of extremity Type 2 diabetes mellitus with hyperglycemia, with long-term current use of insulin Type 2 diabetes mellitus with chronic kidney disease Hyperlipidemia Vaccination refused by patient Refused pneumococcal vaccination Anemia in stage 4 chronic kidney disease Acute proliferative glomerulonephritis Secondary hyperparathyroidism of renal origin Mixed dyslipidemia Peripheral vascular disease Carpal tunnel syndrome on left Diabetes mellitus with diabetic nephropathy, with long-term current use of insulin Osteomyelitis of left foot Diabetes mellitus with foot ulcer End-stage renal disease on hemodialysis Family History Family History Father Unknown family medical history Mother Diabetes mellitus HTN (hypertension) CVD (cardiovascular disease) History of CVA (cerebrovascular accident) Stroke Sister Diabetes mellitus Daughter No problems noted. Sister No problems noted. Sister No problems noted. Surgical History Surgical History History of amputation (01/19/23) Amputated toe of right foot (10/13/22) History of kidney transplant Kidney transplant recipient Social History Social History Household Members: Family Housing: House Do you presently have visiting nurse or other home services: No Alcohol intake: never Patient Tobacco Use Status: Never used Tobacco e-Cigarette/Vaping Use: Never Used Advance Directives Date on File: 01/16/23 service: No Current occupational status: disabled Current occupation: disability - kidney transplant. Left side dominant Cognitive needs: No Hearing needs: No Vision needs: No Meds Allergies Allergy/AdvReac Type Severity Reaction Status Date / Time No Known Allergies Allergy Verified 04/30/23 13:10 Active Medications: Current Medications Acetaminophen (Acetaminophen 325 Mg Tablet) 650 mg PO Q6H PRN PRN Reason: Pain, Mild (Pain Scale 1-3) Amlodipine Besylate (Amlodipine Besylate 5 Mg Tablet) 5 mg PO DAILY [facility]; Protocol Last Admin: 08/11/23 08:34 Dose: 5 mg Apixaban (Apixaban 5 Mg Tablet) 5 mg PO BID [facility] Last Admin: 08/11/23 08:38 Dose: Not Given Atorvastatin Calcium (Atorvastatin Calcium 40 Mg Tablet) 40 mg PO BEDTIME [facility] Last Admin: 08/10/23 19:47 Dose: 40 mg Dextrose (Dextrose 50 % 25 Gm/50 Ml Syringe) 25 gm IVPUSH Q15M PRN; Protocol PRN Reason: per Hypoglycemia Standing Ord. Glucose (Glucose Gel 15 Gm Gel..Gram.) 15 gm PO Q15M PRN; Protocol PRN Reason: per Hypoglycemia Standing Ord. Piperacillin Sod/Tazobactam (Sod 3.375 gm/ Sodium Chloride) 50 mls @ 100 mls/hr IV Q6H [facility] Last Infusion: 08/11/23 13:00 Dose: Infused Insulin Glargine (Insulin Glargine,Hum.Rec.Anlog 100 Unit/Ml 10 Ml Vial) 8 unit SUBCUT BEDTIME [facility] Last Admin: 08/10/23 19:51 Dose: 8 unit Insulin Human Lispro (Insulin Lispro 100 Unit/Ml 3 Ml Vial) 4 unit SUBCUT TIDAC [facility] Last Admin: 08/11/23 10:40 Dose: Not Given Insulin Human Lispro (Insulin Lispro 100 Unit/Ml 3 Ml Vial) 0 unit SUBCUT QIDACHS [facility]; Protocol Last Admin: 08/11/23 10:40 Dose: Not Given Loperamide HCl (Loperamide Hcl 2 Mg Capsule) 2 mg PO Q6H PRN PRN Reason: Diarrhea Last Admin: 08/09/23 23:19 Dose: 2 mg Pt Own (Everolimus 1 (Mg Tablet)) 2 mg PO BID [facility] Last Admin: 08/11/23 08:34 Dose: 2 mg Pt Own ( Mycophenolate Sodium 180 Mg Tablet, Delayed Release (Dr/Ec)) 540 mg PO BID [facility] Last Admin: 08/11/23 08:34 Dose: 540 mg Pharmacy Consult (Consult Rx Vancomycin Dosing) 1 each MISCELLANE DAILY PRN PRN Reason: Consult order Sodium Chloride (0.9 % Sodium Chloride Flush 3 Ml Syringe) 3 ml IVFLUSH QSHIFT [facility] Last Admin: 08/11/23 08:34 Dose: 3 ml Home Medications Medication Instructions Recorded Confirmed Last Taken Type calcifediol 30 mcg capsule,24 30 mcg PO BEDTIME 03/14/20 08/05/23 08/04/23 History hr,extended release (Rayaldee) pen needle, diabetic 31 gauge x #50 ea 06/05/20 03/06/23 Unknown History 08/28 apixaban 5 mg tablet 5 mg PO BID 10/12/20 08/05/23 08/04/23 History lancets 28 gauge (FreeStyle #100 ea 06/26/21 03/06/23 Unknown History Lancets) insulin aspart U-100 100 unit/mL 4 unit subcut TIDAC 10/26/21 08/05/23 08/04/23 History (3 mL) subcutaneous pen (Novolog FlexPen U-100 Insulin aspart) amlodipine 5 mg tablet 5 mg PO DAILY 10/28/22 08/05/23 08/04/23 History valsartan 40 mg tablet 40 mg PO DAILY 10/28/22 08/05/23 08/04/23 History insulin glargine 100 unit/mL (3 20 unit subcut BEDTIME 02/20/23 08/05/23 08/04/23 History mL) subcutaneous pen (Lantus Solostar U-100 Insulin) everolimus (immunosuppressive) 1 2 mg PO BID 08/05/23 08/05/23 08/04/23 History mg tablet mycophenolate sodium 180 mg 540 mg PO BID 08/05/23 08/05/23 08/04/23 History tablet,delayed release rosuvastatin 10 mg tablet 10 mg PO BEDTIME 08/05/23 08/05/23 08/04/23 History Physical Exam 2 Vital Signs: Vital Signs: Last Vital Signs Temp 97.1 F 08/11/23 07:28 Pulse 62 08/11/23 07:28 Resp 18 08/11/23 07:28 BP 148/67 H 08/11/23 07:28 Pulse Ox 100 08/11/23 07:28 O2 Del Method Room Air 08/11/23 07:28 BMI result Body Mass Index 32.1 Const: General: cooperative HEENT: Head: Yes normal to inspection Face and sinus: Yes normal facial exam Mouth: Normal oral and palatal mucosa present Teeth and gingiva: d entition normal Eyes: General: appearance normal, both eyes and all related structures P upils: Equal, round and reactive pupils present Resp: Effort & Inspection: normal respiratory effort Cardio: Rate: regular rate Rhythm: regular rhythm GI: Palpation (GI): Soft to palpation and nontender : General: Yes no CVA tenderness Back/Spine/Pelvis: Back: no CVA tenderness Skin: General skin exam: no rashes or lesions noted Neuro: General: moves all extremities Cranial nerves: Yes Equal, round and reactive pupils present Extrem: Other: tip right foot nonhealing ulcer Psych: Appearance: grossly normal Results Labs 08/10/23 08:24 08/11/23 05:55 Labs: BMP 08/11/23 05:55 Creatinine 1.73 H Microbiology Microbiology Results: Microbiology 08/05/23 02:20 Blood - Venous Blood Culture - Final No growth after 5 days. 08/05/23 02:01 Blood - Venous Blood Culture - Final No growth after 5 days. Assessment and Plan (1) Osteomyelitis: Qualifiers: Laterality: right Osteomyelitis location: foot Osteomyelitis type: o ther acute Qualified Code(s): M86.171 - Other acute osteomyelitis, right ankle and foot Status: Acute OM right great toe Six weeks IV Daptomycin with weekly Ck and creatinine. See in office.
== END 2023-08-11 15:15 | disposition home health service (06) | DRG 300 ==
LOC: HO.ED 08-05 01:57 → HO.EDOVER 08-05 03:22 → HO.S3 08-05 07:41
PROVIDERS: Hospitalist; Physician Assistant Surgical; Surgery Vascular Surgery; Admitting Provider Internal Medicine; Emergency Provider Emergency Medicine; PCP Family Medicine; Visit Provider Nurse Practitioner Acute Care
PROC: B40D1ZZ Plain Radiography of Aorta and Bilateral Lower Extremity Arteries using Low Osmolar Contrast (ICD-10-PCS; principal; 2023-08-10 12:30)
DX: E11.51 Type 2 diabetes mellitus with diabetic peripheral angiopathy without gangrene (principal); I48.20 Chronic atrial fibrillation, unspecified; M86.171 Other acute osteomyelitis, right ankle and foot; Z94.0 Kidney transplant status; E11.69 Type 2 diabetes mellitus with other specified complication; I12.9 Hypertensive chronic kidney disease with stage 1 through stage 4 chronic kidney disease, or unspecified chronic kidney disease; L03.031 Cellulitis of right toe; I70.235 Atherosclerosis of native arteries of right leg with ulceration of other part of foot; L97.519 Non-pressure chronic ulcer of other part of right foot with unspecified severity; N18.32 Chronic kidney disease, stage 3b; E11.22 Type 2 diabetes mellitus with diabetic chronic kidney disease; Z79.4 Long term (current) use of insulin; Z79.01 Long term (current) use of anticoagulants; Z79.69 Long term (current) use of other immunomodulators and immunosuppressants; Z79.899 Other long term (current) drug therapy
CPT/HCPCS: 36247; 36415; 36558; 73630; 75630; 76937; 80053; 80202; 82565; 83605; 85025; 86140; 87040; 93005; 93306; 99152; 99153; 99285; A4364; C1725; C1751; C1769; C1887; J0878; J2543; J3370; J3371; Q9957

== ENCOUNTER 2023-08-05 03:17 | Outpatient (BNV) | payer OTHER, SELFPAY | END 2023-08-06 07:00 | PROVIDERS: Admitting Provider Internal Medicine; Emergency Provider Emergency Medicine; PCP Family Medicine; Visit Provider Internal Medicine Cardiovascular Disease | DX: R07.9 Chest pain, unspecified (principal); R94.31 Abnormal electrocardiogram [ECG] [EKG] | CPT/HCPCS: 93010; 93306 ==

== ENCOUNTER 2023-08-05 03:17 | Outpatient (BNV) | payer OTHER, SELFPAY | END 2023-08-11 11:00 | PROVIDERS: Admitting Provider Internal Medicine; Emergency Provider Emergency Medicine; PCP Family Medicine; Visit Provider Physician Assistant Surgical | DX: N18.9 Chronic kidney disease, unspecified (principal) | CPT/HCPCS: 36558; 76937; 77001 ==

== ENCOUNTER → 2023-08-05 03:17 | Outpatient (BNV) | payer OTHER, SELFPAY | PROVIDERS: Admitting Provider Internal Medicine; Emergency Provider Emergency Medicine; PCP Family Medicine; Visit Provider Internal Medicine | DX: M86.171 Other acute osteomyelitis, right ankle and foot (principal); E11.22 Type 2 diabetes mellitus with diabetic chronic kidney disease; N18.32 Chronic kidney disease, stage 3b; Z94.0 Kidney transplant status | CPT/HCPCS: 99223; 99232; 99233; 99238; 99499; G0180 ==

== ENCOUNTER → 2023-08-05 03:17 | Outpatient (BNV) | payer OTHER, SELFPAY | PROVIDERS: Admitting Provider Internal Medicine; Emergency Provider Emergency Medicine; PCP Family Medicine; Visit Provider Surgery Vascular Surgery | DX: I70.238 Atherosclerosis of native arteries of right leg with ulceration of other part of lower leg (principal) | CPT/HCPCS: 36247; 75625; 75710; 76937; 99152; 99222; 99232 ==

== ENCOUNTER → 2023-08-05 03:17 | Outpatient (BNV) | payer OTHER, SELFPAY | PROVIDERS: Admitting Provider Internal Medicine; Emergency Provider Emergency Medicine; PCP Family Medicine; Visit Provider Internal Medicine | DX: M86.171 Other acute osteomyelitis, right ankle and foot (principal) | CPT/HCPCS: 99222 ==

== ENCOUNTER → 2023-08-05 03:17 | Outpatient (BNV) | payer OTHER, SELFPAY | PROVIDERS: Admitting Provider Internal Medicine; Emergency Provider Emergency Medicine; PCP Family Medicine; Visit Provider Internal Medicine Nephrology | DX: E11.22 Type 2 diabetes mellitus with diabetic chronic kidney disease (principal); N18.32 Chronic kidney disease, stage 3b; Z94.0 Kidney transplant status | CPT/HCPCS: 99223; 99232 ==

== ENCOUNTER 2023-08-18 11:51 | Outpatient (REF) | payer OTHER, SELFPAY ==
[2023-08-18 11:55] LABS: MANUAL DIFF FLAG NO
[2023-08-18 12:02] LABS: Basophils Percent Auto 0.5 % (0-2); Eosinophils Absolute Auto 0.1 X10*3/uL (0.0-0.4); Eosinophils Percent Auto 1.7 % (0-4); Hematocrit 43.3 % (42.0-52.0); Hemoglobin 14.1 g/dl (14.0-18.0); Imm Gran Abs Auto 0.06 X10*3/uL (0.00-0.03); Imm Gran Pct Auto 0.9 % (0.0-0.4); Lymphocytes Absolute Auto 1.9 X10*3/uL (1.2-4.9); Lymphocytes Percent Auto 29.7 % (20-40); Mean Corpuscular HGB Conc 32.6 g/dl (31.0-36.0); Mean Corpuscular Hemoglobin 28.5 pg (27.0-33.0); Mean Corpuscular Volume 87.5 fL (80.0-98.0); Mean Platelet Volume 12.1 fL (9.4-12.4); Monocytes Absolute Auto 0.7 X10*3/uL (0.1-1.2); Monocytes Percent Auto 11.2 % (2-11); Neutrophils Absolute Auto 3.6 x10*3/uL (2.0-8.3); Platelet Count 152 X10*3/uL (160-400); Red Blood Count 4.95 X10*6/uL (4.60-5.80); White Blood Count 6.5 X10*3/uL (4.8-10.8)
[2023-08-18 12:37] LABS: Alanine Aminotransferase 16 U/L (0-40); Alkaline Phosphatase 123 U/L (39-117); Anion Gap 12 (12-20); Aspartate Amino Transferase 24 U/L (5-37); Bilirubin Total 0.4 mg/dL (0.0-1.0); Blood Urea Nitrogen 14 mg/dL (9-16); Calcium 9.1 mg/dL (8.4-10.2); Carbon Dioxide 25 mmol/L (22-29); Chloride 105 mmol/L (96-108); Estimated Glomerular Filt Rate 38; Glucose Random 236 mg/dL (60-115); Potassium 3.4 mmol/L (3.3-5.1); Sodium 139 mmol/L (135-145); Total Protein 7.6 g/dL (6.5-8.0)
== END 2023-08-18 11:52 | disposition home or self-care (01) ==
LOC: HO.HVNA 11:51
PROVIDERS: Visit Provider Family Medicine
DX: M86.171 Other acute osteomyelitis, right ankle and foot (principal)
CPT/HCPCS: 36415; 80053; 85025

== ENCOUNTER 2023-08-25 11:48 | Outpatient (REF) | payer OTHER, SELFPAY ==
[2023-08-25 11:52] LABS: MANUAL DIFF FLAG NO
[2023-08-25 11:56] LABS: Basophils Percent Auto 0.4 % (0-2); Eosinophils Absolute Auto 0.1 X10*3/uL (0.0-0.4); Eosinophils Percent Auto 1.9 % (0-4); Hemoglobin 14.6 g/dl (14.0-18.0); Imm Gran Abs Auto 0.07 X10*3/uL (0.00-0.03); Imm Gran Pct Auto 1.2 % (0.0-0.4); Lymphocytes Absolute Auto 1.5 X10*3/uL (1.2-4.9); Lymphocytes Percent Auto 26.9 % (20-40); Mean Corpuscular HGB Conc 32.4 g/dl (31.0-36.0); Mean Corpuscular Hemoglobin 28.1 pg (27.0-33.0); Mean Corpuscular Volume 86.7 fL (80.0-98.0); Mean Platelet Volume 11.7 fL (9.4-12.4); Monocytes Absolute Auto 0.7 X10*3/uL (0.1-1.2); Monocytes Percent Auto 12.4 % (2-11); Neutrophils Absolute Auto 3.2 x10*3/uL (2.0-8.3); Neutrophils Percent Auto 57.2 % (45-73); Platelet Count 190 X10*3/uL (160-400); Red Blood Count 5.19 X10*6/uL (4.60-5.80); Red Cell Distribution Width 13.1 % (11.0-16.0); White Blood Count 5.7 X10*3/uL (4.8-10.8)
[2023-08-25 12:44] LABS: Alanine Aminotransferase 16 U/L (0-40); Albumin Level 4.1 g/dL (3.5-5.0); Alkaline Phosphatase 134 U/L (39-117); Anion Gap 11 (12-20); Aspartate Amino Transferase 20 U/L (5-37); Bilirubin Total 0.4 mg/dL (0.0-1.0); Blood Urea Nitrogen 15 mg/dL (9-16); Calcium 9.5 mg/dL (8.4-10.2); Carbon Dioxide 27 mmol/L (22-29); Chloride 106 mmol/L (96-108); Estimated Glomerular Filt Rate 40; Glucose Random 242 mg/dL (60-115); Potassium 3.6 mmol/L (3.3-5.1); Sodium 140 mmol/L (135-145)
== END 2023-08-25 11:49 | disposition home or self-care (01) ==
LOC: HO.HVNA 11:48
PROVIDERS: Visit Provider Family Medicine
DX: B99.9 Unspecified infectious disease (principal)
CPT/HCPCS: 36415; 80053; 85025

== ENCOUNTER 2023-08-31 13:02 | Outpatient (AMB) | payer OTHER, SELFPAY ==
--- NOTE | 2023-08-31 13:03 | A.OFFVIS_ITS ---
Intake Vital Signs 3 08/31/23 13:18 Weight 159 lb Pulse 80 Pulse Source Pulse Oximeter Temp 98.5 F Temp Source Oral Pulse Oximetry (%) 100 Intake Visit Reasons: hospital f/u daptomycin picc Allergies No Known Allergies Allergy (Verified 09/03/23 10:04) HPI hospital f/u daptomycin picc 2 HPI0 Details I has seen him in hospital. He finished IV antibiotics on 08/31. He is doing well but has amputation appointment on 09/15. [facility] Medical History PAD (peripheral artery disease) CKD (chronic kidney disease) stage 3, GFR 30-59 ml/min HTN (hypertension) MSSA bacteremia Osteomyelitis of third toe of left foot S/P angiogram of extremity (10/08/22) Diabetic ulcer of right foot Osteomyelitis Wound of right foot Chronic right shoulder pain Multinodular goiter Testicular cancer Bleeding internal hemorrhoids Seminoma Paresthesia and pain of extremity Type 2 diabetes mellitus with hyperglycemia, with long-term current use of insulin Type 2 diabetes mellitus with chronic kidney disease Hyperlipidemia Vaccination refused by patient Refused pneumococcal vaccination Anemia in stage 4 chronic kidney disease Acute proliferative glomerulonephritis Secondary hyperparathyroidism of renal origin Mixed dyslipidemia Peripheral vascular disease Carpal tunnel syndrome on left Diabetes mellitus with diabetic nephropathy, with long-term current use of insulin Osteomyelitis of left foot Diabetes mellitus with foot ulcer End-stage renal disease on hemodialysis Surgical History Renal transplant recipient History of amputation (01/19/23) Amputated toe of right foot (10/13/22) History of kidney transplant Kidney transplant recipient Family History Father Unknown family medical history Mother Diabetes mellitus HTN (hypertension) CVD (cardiovascular disease) History of CVA (cerebrovascular accident) Stroke Sister Diabetes mellitus Daughter No problems noted. Sister No problems noted. Sister No problems noted. Social History Household Members: Family Housing: House Do you presently have visiting nurse or other home services: No Alcohol intake: never Patient Tobacco Use Status: Never used Tobacco e-Cigarette/Vaping Use: Never Used Advance Directives Date on File: 01/16/23 service: No Current occupational status: disabled Current occupation: disability - kidney transplant. Left side dominant Cognitive needs: No Hearing needs: No Vision needs: No Review of Systems Const All systems reviewed & are unremarkable except as noted in HPI and below Physical Exam Vital Signs: Last Vital Signs Temp 98.5 F 08/31/23 13:18 Pulse 80 08/31/23 13:18 Pulse Ox 100 08/31/23 13:18 Const Other: General: cooperative Orientation/consciousness: patient oriented x3 HEENT Head: Yes normal to inspection Mouth: Normal oral and palatal mucosa present Eyes General: appearance normal, both eyes and all related structures Pupils: Equal, round and reactive pupils present Resp Effort & Inspection: normal respiratory effort Cardio Rate: regular rate Rhythm: regular rhythm GI Palpation (GI): Soft to palpation and nontender General: Yes no CVA tenderness Back/Spine/Pelvis Back: no CVA tenderness Skin General skin exam: no rashes or lesions noted Neuro General: patient oriented x3 Cranial nerves: Yes CN's II-XII intact bilaterally and Yes Equal, round and reactive pupils present Extrem Other: still ulcerated area per picture Psych Appearance: grossly normal Assessment & Plan Assessment & Plan (1) Osteomyelitis: Comment: He has finished antibiotics Code(s): M86.9 - Osteomyelitis, unspecified Qualifiers: Laterality: right Osteomyelitis location: foot Osteomyelitis type: o ther acute Qualified Code(s): M86.171 - Other acute osteomyelitis, right ankle and foot Plan: See if needed. No further medication or visit as getting definitive amputation. Coding Level of Care Code Est Pt Level 3 (41216) Diagnoses Other acute osteomyelitis of right foot M86.171 Laterality: right Osteomyelitis location: foot Osteomyelitis type: other acute
[2023-08-31 13:18] VITALS: PULSE 80; TEMP 36.9; O2SAT 100
== END 2023-08-31 13:49 | disposition home or self-care (01) ==
LOC: HO.HID 13:02
PROVIDERS: PCP Family Medicine; Visit Provider Internal Medicine
DX: M86.171 Other acute osteomyelitis, right ankle and foot (principal)
CPT/HCPCS: 99213

== ENCOUNTER → 2023-08-31 13:02 | Outpatient (BNVA) | payer OTHER, SELFPAY | PROVIDERS: PCP Family Medicine; Visit Provider Internal Medicine | DX: M86.171 Other acute osteomyelitis, right ankle and foot (principal) | CPT/HCPCS: 99212 ==

== ENCOUNTER 2023-09-01 12:37 | Outpatient (REF) | payer OTHER, SELFPAY ==
[2023-09-01 12:41] LABS: MANUAL DIFF FLAG NO
[2023-09-01 12:53] LABS: Basophils Percent Auto 0.5 % (0-2); Eosinophils Absolute Auto 0.1 X10*3/uL (0.0-0.4); Eosinophils Percent Auto 2.1 % (0-4); Hematocrit 41.9 % (42.0-52.0); Hemoglobin 13.6 g/dl (14.0-18.0); Imm Gran Abs Auto 0.06 X10*3/uL (0.00-0.03); Imm Gran Pct Auto 1.4 % (0.0-0.4); Lymphocytes Absolute Auto 1.4 X10*3/uL (1.2-4.9); Lymphocytes Percent Auto 32.2 % (20-40); Mean Corpuscular HGB Conc 32.5 g/dl (31.0-36.0); Mean Corpuscular Hemoglobin 27.9 pg (27.0-33.0); Mean Corpuscular Volume 85.9 fL (80.0-98.0); Mean Platelet Volume 11.6 fL (9.4-12.4); Monocytes Absolute Auto 0.5 X10*3/uL (0.1-1.2); Monocytes Percent Auto 11.7 % (2-11); Neutrophils Absolute Auto 2.3 x10*3/uL (2.0-8.3); Neutrophils Percent Auto 52.1 % (45-73); Platelet Count 218 X10*3/uL (160-400); Red Blood Count 4.88 X10*6/uL (4.60-5.80); Red Cell Distribution Width 13.3 % (11.0-16.0); White Blood Count 4.4 X10*3/uL (4.8-10.8)
[2023-09-01 14:18] LABS: Alanine Aminotransferase 19 U/L (0-40); Albumin Level 3.9 g/dL (3.5-5.0); Alkaline Phosphatase 120 U/L (39-117); Anion Gap 15 (12-20); Aspartate Amino Transferase 23 U/L (5-37); Bilirubin Total 0.2 mg/dL (0.0-1.0); Blood Urea Nitrogen 15 mg/dL (9-16); Calcium 9.2 mg/dL (8.4-10.2); Carbon Dioxide 23 mmol/L (22-29); Chloride 106 mmol/L (96-108); Estimated Glomerular Filt Rate 45; Glucose Random 200 mg/dL (60-115); Potassium 3.2 mmol/L (3.3-5.1); Sodium 141 mmol/L (135-145); Total Protein 7.6 g/dL (6.5-8.0)
== END 2023-09-01 12:38 | disposition home or self-care (01) ==
LOC: HO.HVNA 12:37
PROVIDERS: Visit Provider Family Medicine
DX: M86.171 Other acute osteomyelitis, right ankle and foot (principal)
CPT/HCPCS: 36415; 80053; 82550; 85025

== ENCOUNTER 2023-09-03 09:58 | Outpatient (AMB) | payer OTHER, SELFPAY ==
--- NOTE | 2023-09-03 10:01 | MHC.OFFVIS ---
Intake Intake Visit Reasons: follow up Right Angio 08/10/2023 Intake Note: Patient presents for follow up s/p 08/10 angio. Patient does not have any pain , swelling or redness. Accompanied by: Self / Same As Patient Allergies No Known Allergies Allergy (Verified 09/03/23 10:04) HPI follow up Right Angio 08/10/2023 HPI Details Very pleasant 53-year-old gentleman presents for follow-up regarding nonhealing right great toe ulcer. He would undergone diagnostic angiogram which demonstrated appropriate runoff. He now presents for routine follow-up. He actually has scheduled orthopedic surgery the beginning of next month. [facility] Medical History (Updated 09/03/23 @ 10:26 by Bart Marrero MD) PAD (peripheral artery disease) CKD (chronic kidney disease) stage 3, GFR 30-59 ml/min HTN (hypertension) MSSA bacteremia Osteomyelitis of third toe of left foot S/P angiogram of extremity (10/08/22) Diabetic ulcer of right foot Osteomyelitis Wound of right foot Chronic right shoulder pain Multinodular goiter Testicular cancer Bleeding internal hemorrhoids Seminoma Paresthesia and pain of extremity Type 2 diabetes mellitus with hyperglycemia, with long-term current use of insulin Type 2 diabetes mellitus with chronic kidney disease Hyperlipidemia Vaccination refused by patient Refused pneumococcal vaccination Anemia in stage 4 chronic kidney disease Acute proliferative glomerulonephritis Secondary hyperparathyroidism of renal origin Mixed dyslipidemia Peripheral vascular disease Carpal tunnel syndrome on left Diabetes mellitus with diabetic nephropathy, with long-term current use of insulin Osteomyelitis of left foot Diabetes mellitus with foot ulcer End-stage renal disease on hemodialysis Surgical History Renal transplant recipient History of amputation (01/19/23) Amputated toe of right foot (10/13/22) History of kidney transplant Kidney transplant recipient Family History Father Unknown family medical history Mother Diabetes mellitus HTN (hypertension) CVD (cardiovascular disease) History of CVA (cerebrovascular accident) Stroke Sister Diabetes mellitus Daughter No problems noted. Sister No problems noted. Sister No problems noted. Social History Household Members: Family Housing: House Do you presently have visiting nurse or other home services: No Alcohol intake: never Patient Tobacco Use Status: Never used Tobacco e-Cigarette/Vaping Use: Never Used Advance Directives Date on File: 01/16/23 service: No Current occupational status: disabled Current occupation: disability - kidney transplant. Left side dominant Cognitive needs: No Hearing needs: No Vision needs: No Review of Systems Const All systems reviewed & are unremarkable except as noted in HPI and below Reports no additional complaints ENT Reports Normal hearing present Card Denies chest pain, Denies chest pain at rest, Denies chest pain with activity and Denies pedal edema Resp Denies cough GI Denies abdominal pain Musc Denies abnormal gait, Denies muscle cramps and Denies radiating pain into limb Skin/Breast Denies skin ulcer and Denies wounds Neuro Reports Normal hearing present and Denies abnormal gait Psych Reports no additional complaints Physical Exam Const General: cooperative, healthy appearing and comfortable Orientation/consciousness: oriented to person, oriented to place and oriented to time HEENT Head: Yes normal to inspection Neck Neck: Yes normal visual inspection Carotids: no bruits Chest Chest palpation & inspection: normal inspection of the chest Resp Effort & Inspection: normal respiratory effort and able to speak in complete sentences Auscultation: clear to auscultation bilaterally, no crackles, no rales, no rhonchi and no wheezes Cardio Rate: regular rate Rhythm: regular rhythm Heart sounds: S1 normal heart sound present and S2 normal heart sound present Bruits: no carotid bruits Peripheral pulses: Peripheral pulses 2+ throughout GI Inspection: Yes normal to inspection Skin Other: Right great toe nonhealing ulcer Wounds: no wounds Hair: normal Neuro General: oriented to person, oriented to place and oriented to time Cranial nerves: Yes CN's II-XII intact bilaterally and Yes Normal hearing present Cognition (Neuro): normal cognition Motor exam (neuro): 5/5 motor strength present throughout Extrem Other: venous exam: No significant superficial varicosities or spider telangiectasias, minimal edema General: No clubbing, No cyanosis and No edema Psych Appearance: grossly normal Mental Status: mental status grossly normal Speech and movement: Normal speech and movement present Assessment & Plan Assessment & Plan (1) PAD (peripheral artery disease): Comment: 08/10/2023 - diagnostic angiogram Code(s): I73.9 - Peripheral vascular disease, unspecified Plan: In short patient has nonhealing great toe ulcer. He is stable from a vascular standpoint to undergo amputation. I do think it will heal well. He will follow up with us in approximately 3 months time with noninvasive arterial testing. Thank you for allowing us to assist in his care. If there are any questions or concerns please do not hesitate to contact us. Orders: Orders US arterial duplex LE BI 3 Months I73.9 - Peripheral vascular disease, unspecified Coding Level of Care Code Est Pt Level 4 (26106) Diagnoses PAD (peripheral artery disease) I73.9
== END 2023-09-03 10:29 | disposition home or self-care (01) ==
PROVIDERS: PCP Family Medicine; Visit Provider Surgery Vascular Surgery
DX: I73.9 Peripheral vascular disease, unspecified (principal)
CPT/HCPCS: 99213

== ENCOUNTER → 2023-09-03 09:58 | Outpatient (BNVA) | payer OTHER, SELFPAY | PROVIDERS: PCP Family Medicine; Visit Provider Surgery Vascular Surgery | DX: I73.9 Peripheral vascular disease, unspecified (principal); L97.519 Non-pressure chronic ulcer of other part of right foot with unspecified severity | CPT/HCPCS: 99212 ==

== ENCOUNTER 2023-09-08 11:27 | Outpatient (REF) | payer OTHER, SELFPAY ==
[2023-09-08 11:31] LABS: MANUAL DIFF FLAG NO
[2023-09-08 11:48] LABS: Basophils Percent Auto 0.4 % (0-2); Eosinophils Absolute Auto 0.1 X10*3/uL (0.0-0.4); Eosinophils Percent Auto 1.6 % (0-4); Hematocrit 41.8 % (42.0-52.0); Imm Gran Pct Auto 1.8 % (0.0-0.4); Lymphocytes Absolute Auto 1.4 X10*3/uL (1.2-4.9); Lymphocytes Percent Auto 24.4 % (20-40); Mean Corpuscular HGB Conc 31.1 g/dl (31.0-36.0); Mean Corpuscular Hemoglobin 27.3 pg (27.0-33.0); Mean Corpuscular Volume 87.6 fL (80.0-98.0); Mean Platelet Volume 11.6 fL (9.4-12.4); Monocytes Absolute Auto 0.6 X10*3/uL (0.1-1.2); Monocytes Percent Auto 10.4 % (2-11); Neutrophils Absolute Auto 3.4 x10*3/uL (2.0-8.3); Neutrophils Percent Auto 61.4 % (45-73); Platelet Count 209 X10*3/uL (160-400); Red Blood Count 4.77 X10*6/uL (4.60-5.80); Red Cell Distribution Width 13.5 % (11.0-16.0); White Blood Count 5.6 X10*3/uL (4.8-10.8)
[2023-09-08 13:22] LABS: Alanine Aminotransferase 24 U/L (0-40); Albumin Level 3.9 g/dL (3.5-5.0); Alkaline Phosphatase 125 U/L (39-117); Anion Gap 16 (12-20); Aspartate Amino Transferase 28 U/L (5-37); Blood Urea Nitrogen 13 mg/dL (9-16); Calcium 8.5 mg/dL (8.4-10.2); Carbon Dioxide 23 mmol/L (22-29); Chloride 105 mmol/L (96-108); Estimated Glomerular Filt Rate 44; Glucose Random 245 mg/dL (60-115); Potassium 3.2 mmol/L (3.3-5.1); Sodium 141 mmol/L (135-145); Total Protein 7.4 g/dL (6.5-8.0)
[2023-09-08 13:35] LABS: Bilirubin Total 0.4 mg/dL (0.0-1.0)
== END 2023-09-08 11:28 | disposition home or self-care (01) ==
LOC: HO.HVNA 11:27
PROVIDERS: Visit Provider Family Medicine
DX: M86.171 Other acute osteomyelitis, right ankle and foot (principal)
CPT/HCPCS: 36415; 80053; 82550; 85025

== ENCOUNTER 2023-09-11 09:46 | Outpatient (AMB) | payer OTHER, SELFPAY ==
--- NOTE | 2023-09-11 10:18 | HO.NEPHOV ---
Vital Signs 09/11/23 10:19 Height 5 ft 9 in Weight 216 lb 4 oz BMI 31.9 BP 130/70 Blood Pressure Location Lt brachial Position Sitting Pulse 63 Pulse Source Pulse Oximeter Pulse Oximetry (%) 99 Oxygen Delivery Method Room Air Intake Visit Reasons: Continuing care from [facility]/ Confirmed Real Estate Inspector Required: No Accompanied by: Self / Same As Patient Allergies No Known Allergies Allergy (Verified 09/25/23 09:28) HPI Comments Details: Raheem Castro is 53 years with type 2 diabetes mellitus on insulin, chronic kidney disease s/p living donor renal transplant from who also has H/O treated seminoma post transplant. He had been getting wound issues and was getting care at wound clinic and with vascular surgery. He denied any chills, nausea, vomiting, dizziness or palpitations. He denied any cardiopulmonary, gastrointestinal or genitourinary symptoms. Renal function is around baseline. Recently his right foot x-ray showed new erosive changes and cortical disruption along the tuft of the distal phalanx of the 1st toe with surrounding soft tissue swelling and ulcerations -consistent with osteomyelitis and is on Daptomycin. His blood sugar is improving. He feels well. There were no new other active complaints at the time of this office visit. ON LICENSE OF [facility] Medical History (Updated 09/09/23 @ 16:45 by Rhiannon Soto MD) PAD (peripheral artery disease) CKD (chronic kidney disease) stage 3, GFR 30-59 ml/min HTN (hypertension) MSSA bacteremia Osteomyelitis of third toe of left foot S/P angiogram of extremity (10/08/22) Diabetic ulcer of right foot Osteomyelitis Wound of right foot Chronic right shoulder pain Multinodular goiter Testicular cancer Bleeding internal hemorrhoids Seminoma Paresthesia and pain of extremity Type 2 diabetes mellitus with hyperglycemia, with long-term current use of insulin Type 2 diabetes mellitus with chronic kidney disease Hyperlipidemia Vaccination refused by patient Refused pneumococcal vaccination Anemia in stage 4 chronic kidney disease Acute proliferative glomerulonephritis Secondary hyperparathyroidism of renal origin Mixed dyslipidemia Peripheral vascular disease Carpal tunnel syndrome on left Diabetes mellitus with diabetic nephropathy, with long-term current use of insulin Osteomyelitis of left foot Diabetes mellitus with foot ulcer End-stage renal disease on hemodialysis Surgical History (Updated 09/11/23 @ 10:32 by Paulo Tellez MD) Renal transplant recipient History of amputation (01/19/23) Amputated toe of right foot (10/13/22) History of kidney transplant Kidney transplant recipient Family History Father Unknown family medical history Mother Diabetes mellitus HTN (hypertension) CVD (cardiovascular disease) History of CVA (cerebrovascular accident) Stroke Sister Diabetes mellitus Daughter No problems noted. Sister No problems noted. Sister No problems noted. Social History Household Members: Family Housing: House Do you presently have visiting nurse or other home services: No Alcohol intake: never Patient Tobacco Use Status: Never used Tobacco e-Cigarette/Vaping Use: Never Used Advance Directives Date on File: 01/16/23 service: No Current occupational status: disabled Current occupation: disability - kidney transplant. Left side dominant Cognitive needs: No Hearing needs: No Vision needs: No Physical Exam Vital Signs: Last Vital Signs Pulse 63 09/11/23 10:19 BP 130/70 09/11/23 10:19 Pulse Ox 99 09/11/23 10:19 Oxygen Delivery Method Room Air 09/11/23 10:19 BMI result Body Mass Index 31.9 Const General: comfortable and no acute distress Orientation/consciousness: patient oriented x3 HEENT Head: Yes normocephalic Mouth: Normal oral and palatal mucosa present Eyes EOM: EOMs intact bilaterally Neck Neck: Yes supple Resp Auscultation: clear to auscultation bilaterally Cardio Jugular venous distension: no JVD Rate: regular rate GI Palpation (GI): Soft to palpation Auscultation: normal bowel sounds General: Yes no CVA tenderness Back/Spine/Pelvis Back: no CVA tenderness Skin General skin exam: no rashes or lesions noted Neuro General: patient oriented x3 and moves all extremities Results Reviewed Nephrology Results: Hgb 12.7 g/dl (14.0-18.0) L 09/15/23 WBC 5.7 X10*3/uL (4.8-10.8) 09/15/23 Plt Count 185 X10*3/uL (160-400) 09/15/23 Sodium 139 mmol/L (135-145) 09/15/23 Potassium 3.2 mmol/L (3.3-5.1) L 09/15/23 Chloride 105 mmol/L (96-108) 09/15/23 Carbon Dioxide 24 mmol/L (22-29) 09/15/23 BUN 14 mg/dL (9-16) 09/15/23 Creatinine 1.78 mg/dL (0.5-1.4) H 09/15/23 Calcium 8.9 mg/dL (8.4-10.2) 09/15/23 Assessment & Plan Assessment & Plan (1) Renal transplant recipient: Code(s): Z94.0 - Kidney transplant status Category: Surgical Plan Transplant renal function at baseline C/W current dose of Everolimus & MMF Needs better BS control @ home No NSAID's and good hydration Needs to continue with Oncology follow up Will be a candidate for ACEI/ SGLT 2 i C/W rest of current management for now Needs annual dermatology visit Will do a 24 hour urine collection in the subsequent visits All questions answered; F/U given Orders: Orders Creatinine 09/11/23 Z94.0 - Kidney transplant status Blood Urea Nitrogen 09/11/23 Z94.0 - Kidney transplant status Calcium 09/11/23 Z94.0 - Kidney transplant status Aspartate Amino Transferase 09/11/23 Z94.0 - Kidney transplant status Parathyroid Hormone Intact 09/11/23 Z94.0 - Kidney transplant status Vitamin D 25-OH Total 09/11/23 Z94.0 - Kidney transplant status Complete Blood Count Auto Diff 09/11/23 Z94.0 - Kidney transplant status Electrolytes 09/11/23 Z94.0 - Kidney transplant status Phosphorus 09/11/23 Z94.0 - Kidney transplant status Alanine Aminotransferase 09/11/23 Z94.0 - Kidney transplant status Other Ref Test - Misc 09/11/23 Z94.0 - Kidney transplant status
[2023-09-11 10:19] VITALS: BP 130/70; PULSE 63; O2SAT 99; BMI 31.9
== END 2023-09-11 10:38 | disposition home or self-care (01) ==
PROVIDERS: PCP Family Medicine; Visit Provider Internal Medicine Nephrology
DX: Z94.0 Kidney transplant status (principal)
CPT/HCPCS: 99214

== ENCOUNTER → 2023-09-11 09:46 | Outpatient (BNVA) | payer OTHER, SELFPAY | PROVIDERS: PCP Family Medicine; Visit Provider Internal Medicine Nephrology | DX: Z94.0 Kidney transplant status (principal) | CPT/HCPCS: 99212 ==

== ENCOUNTER 2023-09-15 12:01 | Outpatient (REF) | payer OTHER, SELFPAY ==
[2023-09-15 12:06] LABS: MANUAL DIFF FLAG NO
[2023-09-15 12:15] LABS: Basophils Percent Auto 0.4 % (0-2); Eosinophils Absolute Auto 0.1 X10*3/uL (0.0-0.4); Eosinophils Percent Auto 1.4 % (0-4); Hemoglobin 12.7 g/dl (14.0-18.0); Imm Gran Abs Auto 0.06 X10*3/uL (0.00-0.03); Imm Gran Pct Auto 1.1 % (0.0-0.4); Lymphocytes Absolute Auto 1.5 X10*3/uL (1.2-4.9); Lymphocytes Percent Auto 25.8 % (20-40); Mean Corpuscular HGB Conc 31.8 g/dl (31.0-36.0); Mean Corpuscular Hemoglobin 27.4 pg (27.0-33.0); Mean Corpuscular Volume 86.2 fL (80.0-98.0); Mean Platelet Volume 11.9 fL (9.4-12.4); Monocytes Absolute Auto 0.5 X10*3/uL (0.1-1.2); Monocytes Percent Auto 9.5 % (2-11); Neutrophils Absolute Auto 3.5 x10*3/uL (2.0-8.3); Neutrophils Percent Auto 61.8 % (45-73); Platelet Count 185 X10*3/uL (160-400); Red Blood Count 4.64 X10*6/uL (4.60-5.80); White Blood Count 5.7 X10*3/uL (4.8-10.8)
[2023-09-15 12:56] LABS: Alanine Aminotransferase 17 U/L (0-40); Albumin Level 3.9 g/dL (3.5-5.0); Alkaline Phosphatase 133 U/L (39-117); Anion Gap 13 (12-20); Aspartate Amino Transferase 19 U/L (5-37); Bilirubin Total 0.4 mg/dL (0.0-1.0); Blood Urea Nitrogen 14 mg/dL (9-16); Calcium 8.9 mg/dL (8.4-10.2); Carbon Dioxide 24 mmol/L (22-29); Chloride 105 mmol/L (96-108); Estimated Glomerular Filt Rate 40; Glucose Random 298 mg/dL (60-115); Potassium 3.2 mmol/L (3.3-5.1); Sodium 139 mmol/L (135-145); Total Protein 7.7 g/dL (6.5-8.0)
== END 2023-09-15 12:02 | disposition home or self-care (01) ==
LOC: HO.HVNA 12:01
PROVIDERS: Visit Provider Internal Medicine
DX: M86.9 Osteomyelitis, unspecified (principal)
CPT/HCPCS: 36415; 80053; 82550; 85025

== ENCOUNTER 2023-09-16 13:27 | Outpatient (REF) | payer OTHER, SELFPAY | END 2023-09-16 13:28 | disposition home or self-care (01) | LOC: HO.RADIR 13:27 | PROVIDERS: PCP Family Medicine; Visit Provider Internal Medicine | DX: Z13.89 Encounter for screening for other disorder (principal) ==

== ENCOUNTER 2023-09-25 08:39 | Outpatient (AMB) | payer OTHER, SELFPAY ==
--- NOTE | 2023-09-25 08:54 | A.OFFPC_ITS ---
Vital Signs 09/25/23 09:02 Height 5 ft 9 in Weight 217 lb 4 oz BMI 32.1 BP 126/80 Blood Pressure Location Lt brachial Position Sitting Respiration 14 Pulse 76 Pulse Source Pulse Oximeter Temp 98 F Temp Source Oral Pulse Oximetry (%) 96 Oxygen Delivery Method Room Air Intake Visit Reasons: partial toe amputation, Dr. Diaz Intake Note: Clearance for toe amputation 10/14/23. Had cardiology clearance at [facility] yesterday. Also [facility] Telemarketing Sales Representative Required: No Allergies No Known Allergies Allergy (Verified 09/25/23 09:28) Medication List - Last Reconciled 09/25/23 by Breanna Sheriff, [facility]- apixaban 5 mg PO BID calcifediol ER (Rayaldee) 30 mcg PO BEDTIME everolimus (immunosuppressive) 2 mg PO BID insulin aspart U-100 (Novolog FlexPen U-100 Insulin aspart) 4 units subcut TIDAC insulin glargine (Lantus Solostar U-100 Insulin) 20 units subcut BEDTIME lancets (FreeStyle Lancets) As directed mirtazapine 7.5 mg PO BEDTIME mycophenolate sodium 540 mg PO BID pen needle, diabetic As directed rosuvastatin 10 mg PO BEDTIME Tobacco use date assessed: 02/11/23 Dental Screening Dental Screen Date: 09/25/23 Did you have a dental visit in the last 12 months?: No Did you have a dental problem in the last 6 months where you did not have access to dental care?: No Was dental information given to patient?: Patient has dentist HPI HPI Comments History of Present Illness Details 53-year-old male diabetes, peripheral ne uropathy proliferative glomerular nephritis, CKD 5, secondary hyperparathyroidism of renal origin anemia of chronic disease, hyperlipidemia, peripheral arterial disease, testicular cancer (2020) 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 Marrero S/P angiogram of extremity (10/08/22) Kidney transplant 2017 Status post fistulotomy 2020 Special[facility] Cardiology Endocrinology Nephrology Hematology and Oncology Vascular Urology Here today for preoperative clearance. Surgery Type: Right great toe amputation Anesthesia Type: General Surgeon: Dr Diaz Date: 10/14/2023 Any past surgical procedures: several see above Any complications from anesthesia or in post-op period:none; post op infections ASA or NSAID Use: Denies Current smoker: Denies Alcohol use:Denies Drug use: Denies METs: > 4 climb flight of stairs, golf, walk, yardwork Medical history: Asthma Denies COPD Denies Obesity BMI 32.1 Diabetes Yes, unsure last A1c, reports good, managed by Endo Labs done 09/15/23. Cleared by [facility] yesterday. Nicky castro completed today New RX for DM shoes printed for him today to fill at [facility] in [place], [place] Education Aspirin and NSAIDS should be discontinued one week before surgery to prevent excessive bleeding. If you are a smoker, there is increase risk of post surgical complications. Cessation is encouraged. Follow up with surgeon and all recommendations pre and post operatively. [facility] Medical History (Updated 09/09/23 @ 16:45 by Rhiannon Soto MD) PAD (peripheral artery disease) CKD (chronic kidney disease) stage 3, GFR 30-59 ml/min HTN (hypertension) MSSA bacteremia Osteomyelitis of third toe of left foot S/P angiogram of extremity (10/08/22) Diabetic ulcer of right foot Osteomyelitis Wound of right foot Chronic right shoulder pain Multinodular goiter Testicular cancer Bleeding internal hemorrhoids Seminoma Paresthesia and pain of extremity Type 2 diabetes mellitus with hyperglycemia, with long-term current use of insulin Type 2 diabetes mellitus with chronic kidney disease Hyperlipidemia Vaccination refused by patient Refused pneumococcal vaccination Anemia in stage 4 chronic kidney disease Acute proliferative glomerulonephritis Secondary hyperparathyroidism of renal origin Mixed dyslipidemia Peripheral vascular disease Carpal tunnel syndrome on left Diabetes mellitus with diabetic nephropathy, with long-term current use of insulin Osteomyelitis of left foot Diabetes mellitus with foot ulcer End-stage renal disease on hemodialysis Surgical History (Updated 09/11/23 @ 10:32 by Paulo Tellez MD) Renal transplant recipient History of amputation (01/19/23) Amputated toe of right foot (10/13/22) History of kidney transplant Kidney transplant recipient Family History Father Unknown family medical history Mother Diabetes mellitus HTN (hypertension) CVD (cardiovascular disease) History of CVA (cerebrovascular accident) Stroke Sister Diabetes mellitus Daughter No problems noted. Sister No problems noted. Sister No problems noted. Social History Household Members: Family Housing: House Do you presently have visiting nurse or other home services: No Alcohol intake: never Patient Tobacco Use Status: Never used Tobacco e-Cigarette/Vaping Use: Never Used Advance Directives Date on File: 01/16/23 service: No Current occupational status: disabled Current occupation: disability - kidney transplant. Left side dominant Cognitive needs: No Hearing needs: No Vision needs: No Questionnaire Thrive Questionnaire Date Thrive assessed: 08/05/23 AUDIT C Alcohol Use Questionnaire (AUDIT-C) 1. How often do you have a drink containing alcohol?: Never 3. How often do you have six or more drinks on one occasion?: Never Total Score: 0 Review of Systems Const All systems reviewed & are unremarkable except as noted in HPI and below Physical exam (Primary Care) Vital Signs: Last Vital Signs Temp 98 F 09/25/23 09:02 Pulse 76 09/25/23 09:02 Resp 14 09/25/23 09:02 BP 126/80 09/25/23 09:02 Pulse Ox 96 09/25/23 09:02 Oxygen Delivery Method Room Air 09/25/23 09:02 BMI result Body Mass Index 32.1 Tobacco/Smoking Status: Tobacco use Status Tobacco use date assessed 02/11/23 09/25/23 09:02 Patient Tobacco Use Status Never used Tobacco 09/25/23 09:02 e-Cigarette/Vaping Use Never Used 09/25/23 09:02 Thrive Assessment: Date of Thrive Assessment Date Thrive assessed 08/05/23 09/25/23 09:02 Const Other: awake alert oriented PERRLA 1/6 systolic murmur, RRR LS CTAB Assessment and Plan Assessment & Plan (1) Pre-operative clearance: Code(s): Z01.818 - Encounter for other preprocedural examination (2) Diabetes mellitus with diabetic nephropathy, with long-term current use of insulin: Code(s): E11.21 - Type 2 diabetes mellitus with diabetic nephropathy; Z79.4 - direct support specialist (current) use of insulin Qualifiers: Diabetes mellitus type: type 2 Qualified Code(s): E11.21 - Type 2 diabetes mellitus with diabetic nephropathy; Z79.4 - prison (current) use of insulin Plan Total time spent caring for the patient today was Total time spent caring for the patient today was 45 minutes. This includes time spent before the visit reviewing the chart, time spent during the visit, and time spent after the visit on documentation minutes. This includes time spent before the visit reviewing the chart, time spent during the visit, and time spent after the visit on documentation This note is constructed using voice recognition software. While every effort has been made to ensure accuracy in director employee communications, still errors may have been included Sometimes, these errors may affect the content or meaning of the given sentence . Medically Cleared for surgery 10/14/[address] Diaz. See Cards consult 09/24/23 for Cards clearance. Medications: New diabetic supplies, miscellan. DIABETIC SHOES 1 ea 1RF E11.21 - Type 2 diabetes mellitus with diabetic nephropathy, Z79.4 - prison (current) use of insulin Patient Instructions: FU with PCP after surgery, sooner PRN Coding Level of Care Code Est Pt Level 5 (34734) Diagnoses Pre-operative clearance Z01.818 Type 2 diabetes mellitus with diabetic nephropathy, with long-term current use of insulin E11.21; Z79.4 Diabetes mellitus type: type 2
[2023-09-25 09:02] VITALS: BP 126/80; PULSE 76; RESP 14; TEMP 36.6; O2SAT 96; BMI 32.1
== END 2023-09-25 09:46 | disposition home or self-care (01) ==
PROVIDERS: PCP Family Medicine; Visit Provider Nurse Practitioner Family
DX: Z01.818 Encounter for other preprocedural examination (principal); E11.21 Type 2 diabetes mellitus with diabetic nephropathy; Z79.4 Long term (current) use of insulin
CPT/HCPCS: 99215

== ENCOUNTER 2023-10-30 19:34 | Emergency (ER) | payer OTHER, SELFPAY ==
--- NOTE | ~2023-10-30 | XR_ITS ---
EXAMINATION: XR ANKLE, LEFT CLINICAL INFORMATION: Pain swelling COMPARISON: None available. TECHNIQUE: AP, lateral, and mortise views of the left ankle. FINDINGS: Oblique radiolucent line suggesting probably incomplete nondisplaced hairline fracture through the distal fibula. There is soft tissue swelling around medial malleolus. There is soft tissue swelling anterior to the ankle. There is posterior and inferior calcaneal spurs. There are vascular calcification. Soft tissue calcification posterior to the ankle also observed uncertain etiology. XR/XR ankle LT min 3V IMPRESSION: 1. Probably incomplete nondisplaced hairline fracture through the distal fibula. 2. Soft tissue swelling medial and anterior to the ankle. 3. Soft tissue calcification posterior to the ankle also observed uncertain etiology. 4. Posterior and inferior calcaneal spurs.
[2023-10-30 19:36] VITALS: BP 150/75; PULSE 104; RESP 18; TEMP 36.1; O2SAT 98; BMI 35.4
--- NOTE | 2023-10-30 19:41 | ED.GENADULT ---
HPI - General Adult General Chief complaint: Extremity Injury, Lower Stated complaint: L ankle swollen/ burning sensation Time Seen by Provider: 10/30/23 23:37 Source: patient, RN notes reviewed and old records reviewed Mode of arrival: ambulatory Limitations: no limitations History of Present Illness HPI narrative: 53-year-old male past medical history significant for insulin-dependent diabetes, chronic kidney disease status post renal transplant recipient, testicular cancer, peripheral artery disease presents for evaluation of left ankle pain. Patient reports that for last 2 days he has had swelling in the left ankle. He reports redness and warmth to the touch. He states this started after he was working in the car He denies any falls or twisting injury His pain is 7/10 Patient reports a significant history of infection to the area as he has limited sensation Related Data Home Medications ?Medication ?Instructions ?Recorded ?Confirmed calcifediol 30 mcg capsule,24 30 mcg PO BEDTIME 03/14/20 09/25/23 hr,extended release (Rayaldee) pen needle, diabetic 31 gauge x #50 ea 06/05/20 09/25/23/ apixaban 5 mg tablet 5 mg PO BID 10/12/20 09/25/23 lancets 28 gauge (FreeStyle #100 ea 06/26/21 09/25/23 Lancets) everolimus (immunosuppressive) 1 2 mg PO BID 08/05/23 09/25/23 mg tablet mycophenolate sodium 180 mg 540 mg PO BID 08/05/23 09/25/23 tablet,delayed release rosuvastatin 10 mg tablet 10 mg PO BEDTIME 08/05/23 09/25/23 Previous Rx's ?Medication ?Instructions ?Recorded mirtazapine 7.5 mg tablet 7.5 mg PO BEDTIME #30 tabs 09/23/23 diabetic supplies, miscellan. #1 ea 09/25/23 insulin aspart U-100 100 unit/mL 4 unit (0.04 mL) subcut TIDAC 30 10/09/23 (3 mL) subcutaneous pen (Novolog days #6 mL FlexPen U-100 Insulin aspart) insulin glargine 100 unit/mL (3 20 unit (0.2 mL) subcut BEDTIME 30 10/09/23 mL) subcutaneous pen (Lantus days #6 mL Solostar U-100 Insulin) cefuroxime axetil 500 mg tablet 500 mg PO Q12H #13 tabs 10/31/23 Allergies Allergy/AdvReac Type Severity Reaction Status Date / Time No Known Allergies Allergy Verified 10/30/23 19:39 Review of Systems Constitutional: Constitutional: Denies body ache(s), Denies chills and Denies fever(s) Eyes: Eyes: Denies blurry vision ENT: Denies sore throat Cardiovascular: Cardiovascular: Denies chest pain and Denies dyspnea Respiratory: Respiratory: Denies cough and Denies dyspnea Gastrointestinal: Gastrointestinal: Denies abdominal pain Musculoskeletal: Musculoskeletal: Reports arthralgias, Reports joint swelling and Reports limited range of motion Integumentary/Breasts: Skin/Breast: Reports erythema and Reports skin pain PMFSH Past Medical History Medical History (Updated 10/31/23 @ 00:02 by Geoff Santillan) PAD (peripheral artery disease) CKD (chronic kidney disease) stage 3, GFR 30-59 ml/min HTN (hypertension) MSSA bacteremia Osteomyelitis of third toe of left foot S/P angiogram of extremity (10/08/22) Diabetic ulcer of right foot Osteomyelitis Wound of right foot Chronic right shoulder pain Multinodular goiter Testicular cancer Bleeding internal hemorrhoids Seminoma Paresthesia and pain of extremity Type 2 diabetes mellitus with hyperglycemia, with long-term current use of insulin Type 2 diabetes mellitus with chronic kidney disease Hyperlipidemia Vaccination refused by patient Refused pneumococcal vaccination Anemia in stage 4 chronic kidney disease Acute proliferative glomerulonephritis Secondary hyperparathyroidism of renal origin Mixed dyslipidemia Peripheral vascular disease Carpal tunnel syndrome on left Diabetes mellitus with diabetic nephropathy, with long-term current use of insulin Osteomyelitis of left foot Diabetes mellitus with foot ulcer End-stage renal disease on hemodialysis Surgical History (Updated 09/11/23 @ 10:32 by Paulo Tellez MD) Renal transplant recipient History of amputation (01/19/23) Amputated toe of right foot (10/13/22) History of kidney transplant Kidney transplant recipient Family History Family History Father Unknown family medical history Mother Diabetes mellitus HTN (hypertension) CVD (cardiovascular disease) History of CVA (cerebrovascular accident) Stroke Sister Diabetes mellitus Daughter No problems noted. Sister No problems noted. Sister No problems noted. Social History Social History Household Members: Family Housing: House Do you presently have visiting nurse or other home services: No Alcohol intake: never Patient Tobacco Use Status: Never used Tobacco e-Cigarette/Vaping Use: Never Used Advance Directives: Yes Advance Directives on File: Yes Advance Directives Date on File: 01/16/23 Do you have a plan to hurt others: No Plan service: No Current occupational status: disabled Current occupation: disability - kidney transplant. Left side dominant Cognitive needs: No Hearing needs: No Vision needs: No Physical Exam ED Vital Signs: Vital Signs - 24 hr 10/30/23 19:36 10/31/23 00:40 Temperature 97 F 97 F Pulse Rate 104 H 104 H Respiratory Rate 18 18 Blood Pressure 150/75 H 150/75 H Pulse Oximetry 98 98 Oxygen Delivery Method Room Air Room Air BMI result Body Mass Index 35.4 Const General: healthy appearing, comfortable, no acute distress, alert and awake Nutritional Appearance: well nourished Orientation/consciousness: patient oriented x3 HENMT Head: Yes normocephalic and Yes atraumatic Eyes Eyelids: Yes eyelids normal Conjunctivae: conjunctivae normal Sclerae: sclerae normal Corneas: corneas normal Pupils: Equal, round and reactive pupils present EOM: EOMs intact bilaterally Neck Neck: Yes full ROM Resp Effort & Inspection: normal respiratory effort, able to speak in complete sentences and not labored Cardio Rate: regular rate Rhythm: regular rhythm Skin General skin exam: elasticity normal Neuro General: patient oriented x3 Cranial nerves: Yes Equal, round and reactive pupils present and Yes Bilaterally intact EOM present Cognition (Neuro): normal cognition Extrem Other: Amputation of the left 2nd toe and partial amputation of the left 3rd toe. Patient has edema to the left ankle over the anterior surface. He is more tender over the anterior tibia with faint erythema. No open wounds. There is no significant tenderness over the left lateral malleolus or distal fibula Course Course Course Narrative: This is an RME done by JAYLEN Mahmood: Additional HPI, ROS, PE not included below will be deferred to primary provider. 53 year old m hx of no vaccinations, pad, renal transplant, osteo, dm, hld, htn presents w/ 2 days of atraumatic L ankle pain area is red hot swollen and it hurts when he moves his l ankle. No fevers or chills. Appearance: Alert.? Oriented X3.? No acute cardiopulmonary distress distress.? Head: Normocephalic, atraumatic, no step-offs or deformities ENT: Pharynx normal.??External ears normal, TMs normal bilaterally and EAC's normal. No pain with manipulation of external ears bilaterally. No mastoid tenderness. Neck: Normal inspection.? Neck supple.? Respiratory: No respiratory distress.? Abdomen: Soft and nontender.? Skin: ? Normal skin color. Extremities: 5/5 strength to bilateral upper and lower extremities + 2 pitting edema b/l. Painful rom to L ankle normal rom to r ankle. slight errythema to l ankle region and warmth. Neuro: Oriented X 3.? No motor deficit.? No sensory deficit. Medications Administered Discontinued Medications Generic Name Dose Route Start Last Admin Trade Name Freq PRN Reason Stop Dose Admin Cefuroxime Axetil 500 mg 10/30/23 23:47 10/31/23 00:40 Cefuroxime Axetil 500 Mg Tablet PO 10/30/23 23:48 500 mg ONCE ONE Administration Medical Decision Making Medical Decision Making [facility] Narrative: Given the patient's significant medical history of osteomyelitis, cellulitis, peripheral artery disease and diabetes as well as his exam findings of tenderness over the distal tibia with faint erythema and edema, the atraumatic nature of his pain I feel that cellulitis is a possible cause of the pain. X-ray shows a possible distal fibula fracture however he has no tenderness over this area. We will place the patient in a stirrup splint and he will follow up with Orthopedics. However given that the area will be covered and splinted I think it is important to treat the patient with antibiotics any ways given his significant history of infections and the fact that he will not be able to evaluate for worsening redness or swelling Differential Diagnosis Differential Diagnoses: The differential diagnosis associated with the presentation includes Cellulitis Gout Ankle fracture Ankle sprain Contusion Lab Data [facility] Lab Attestation statement: I reviewed the patient's lab results. No leukocytosis. The patient does have a mild anemia with a hemoglobin 12.8 and hematocrit of 40.1. This is normocytic. He is consistent with his recent labs from August of this year. Platelet count of 142 1000. No significant electrolyte abnormalities. The patient does have chronic kidney disease with a renal transplant. His BUN of 17 and creatinine of 1.91 is just above his baseline 10/30/23 20:27 10/30/23 20:27 Labs: Lab Results 10/30/23 Range/Units 20:27 WBC 7.2 (4.8-10.8) X10*3/uL RBC 4.71 (4.60-5.80) X10*6/uL Hgb 12.8 L (14.0-18.0) g/dl Hct 40.1 L (42.0-52.0) % MCV 85.1 (80.0-98.0) fL MCH 27.2 (27.0-33.0) pg MCHC 31.9 (31.0-36.0) g/dl RDW 16.1 H (11.0-16.0) % Plt Count 142 L (160-400) X10*3/uL MPV 11.9 (9.4-12.4) fL Immature Gran % (Auto) 0.6 H (0.0-0.4) % Neut % (Auto) 71.5 (45-73) % Lymph % (Auto) 15.2 L (20-40) % Vigo % (Auto) 12.0 H (2-11) % Eos % (Auto) 0.6 (0-4) % Baso % (Auto) 0.1 (0-2) % Lymph # (Auto) 1.1 L (1.2-4.9) X10*3/uL Vigo # (Auto) 0.9 (0.1-1.2) X10*3/uL Eos # (Auto) 0.0 (0.0-0.4) X10*3/uL Baso # (Auto) 0.0 (0.0-0.2) X10*3/uL Abs Immat Gran (auto) 0.04 H (0.00-0.03) X10*3/uL Absolute Neuts (auto) 5.1 (2.0-8.3) x10*3/uL Absolute Nucleated RBC 0.000 (0.0-0.012) X10*3/uL Nucleated RBC % (auto) 0.0 (0.0-0.2) /100WBC ESR 40 H (0-15) MM/HR PT 13.6 H (11.1-13.3) SEC INR 1.1 (0.9-1.1) Sodium 142 (135-145) mmol/L Potassium 3.9 D (3.3-5.1) mmol/L Chloride 104 (96-108) mmol/L Carbon Dioxide 26 (22-29) mmol/L Anion Gap 16 (12-20) BUN 17 H (9-16) mg/dL Creatinine 1.91 H (0.5-1.4) mg/dL Estim Creat Clear Calc 49.9 Estimated GFR 37 Random Glucose 176 H (60-115) mg/dL Calcium 9.0 (8.4-10.2) mg/dL Magnesium 2.1 (1.6-2.6) mg/dL Total Bilirubin 0.4 (0.0-1.0) mg/dL AST 19 (5-37) U/L ALT 14 (0-40) U/L Alkaline Phosphatase 104 (39-117) U/L C-Reactive Protein 2.92 H (< or = 0.50) mg/dL Total Protein 7.8 (6.5-8.0) g/dL Albumin 4.1 (3.5-5.0) g/dL Independent Interpretation I performed an independent interpretation of an: Plain X-Ray (No obvious displaced fracture of the left ankle) Radiology Impression Discussion of test interpretation with radiology: I have reviewed the radiologist's reading. Radiologist Impression: XR/XR ankle LT min 3V IMPRESSION: 1. Probably incomplete nondisplaced hairline fracture through the distal fibula. 2. Soft tissue swelling medial and anterior to the ankle. 3. Soft tissue calcification posterior to the ankle also observed uncertain etiology. 4. Posterior and inferior calcaneal spurs. Discharge Plan Discharge Clinical Impression: Acute left ankle pain Patient Disposition: Home, Self-Care Instructions: Ankle Fracture (ED) Additional Instructions: Your x-ray shows a possible nondisplaced fracture of the distal fibula which is the outside of your ankle. Keep the splint in place until you follow-up with orthopedics Call tomorrow to make an appointment Use crutches for ambulation so that you do not walk on the foot/ankle Take the antibiotics as directed Follow-up with your primary doctor Prescriptions: New cefuroxime axetil 500 mg tablet 500 mg PO Q12H Qty: 13 0RF No Action mirtazapine 7.5 mg tablet 7.5 mg PO BEDTIME Qty: 30 6RF insulin aspart U-100 [Novolog FlexPen U-100 Insulin] 100 unit/mL (3 mL) insulin pen 4 unit subcut TIDAC 30 Days Qty: 6 4RF insulin glargine [Lantus Solostar U-100 Insulin] 100 unit/mL (3 mL) insulin pen 20 unit SUBCUT BEDTIME 30 Days Qty: 6 4RF Rayaldee 30 mcg Capsule,Extended Release 24 Hr 30 mcg PO BEDTIME everolimus (immunosuppressive) 1 mg tablet 2 mg PO BID mycophenolate sodium 180 mg tablet,delayed release (DR/EC) 540 mg PO BID rosuvastatin 10 mg tablet 10 mg PO BEDTIME (DME) diabetic supplies, miscellan. Misc See Rx Instructions .Route Qty: 1 1RF Rx Instructions: DIABETIC SHOES (DME) pen needle, diabetic 31 gauge x 3/16 needle See Rx Instructions subcut .MEDSUPPLY Qty: 50 Rx Instructions: As directed apixaban 5 mg tablet 5 mg PO BID (DME) lancets [FreeStyle Lancets] 28 gauge misc See Rx Instructions topical TID Qty: 100 Rx Instructions: As directed Referrals: Ramy Hernandez MD [Physician] - (left fibula fracture) Interventions: ED Discharge Assessment Last Done: 10/31/23 00:40 Print Language: Maltese
[2023-10-30 20:33] LABS: MANUAL DIFF FLAG NO
[2023-10-30 20:34] LABS: Basophils Percent Auto 0.1 % (0-2); Eosinophils Percent Auto 0.6 % (0-4); Hematocrit 40.1 % (42.0-52.0); Hemoglobin 12.8 g/dl (14.0-18.0); Imm Gran Abs Auto 0.04 X10*3/uL (0.00-0.03); Imm Gran Pct Auto 0.6 % (0.0-0.4); Lymphocytes Absolute Auto 1.1 X10*3/uL (1.2-4.9); Lymphocytes Percent Auto 15.2 % (20-40); Mean Corpuscular HGB Conc 31.9 g/dl (31.0-36.0); Mean Corpuscular Hemoglobin 27.2 pg (27.0-33.0); Mean Corpuscular Volume 85.1 fL (80.0-98.0); Mean Platelet Volume 11.9 fL (9.4-12.4); Monocytes Absolute Auto 0.9 X10*3/uL (0.1-1.2); Neutrophils Absolute Auto 5.1 x10*3/uL (2.0-8.3); Neutrophils Percent Auto 71.5 % (45-73); Platelet Count 142 X10*3/uL (160-400); Red Blood Count 4.71 X10*6/uL (4.60-5.80); Red Cell Distribution Width 16.1 % (11.0-16.0); White Blood Count 7.2 X10*3/uL (4.8-10.8)
[2023-10-30 20:40] LABS: INTERNATIONAL NORM RATIO 1.1 (0.9-1.1); Prothrombin Time 13.6 SEC (11.1-13.3)
[2023-10-30 21:09] LABS: Alanine Aminotransferase 14 U/L (0-40); Albumin Level 4.1 g/dL (3.5-5.0); Alkaline Phosphatase 104 U/L (39-117); Anion Gap 16 (12-20); Aspartate Amino Transferase 19 U/L (5-37); Bilirubin Total 0.4 mg/dL (0.0-1.0); Blood Urea Nitrogen 17 mg/dL (9-16); C Reactive Protein 2.92 mg/dL (< or = 0.50); Carbon Dioxide 26 mmol/L (22-29); Chloride 104 mmol/L (96-108); Creatinine Clr Calc Pharmacy 49.9; Estimated Glomerular Filt Rate 37; Glucose Random 176 mg/dL (60-115); Magnesium 2.1 mg/dL (1.6-2.6); Potassium 3.9 mmol/L (3.3-5.1); Sodium 142 mmol/L (135-145); Total Protein 7.8 g/dL (6.5-8.0)
[2023-10-30 21:24] LABS: Erythrocyte Sedimentation Rate 40 MM/HR (0-15)
[2023-10-31 00:40] VITALS: BP 150/75; PULSE 104; RESP 18; TEMP 36.1; O2SAT 98
[2023-10-31] MEDS: cefuroxime axetiL 500 MG TABLET PO (00:40)
== END 2023-10-31 01:06 | disposition home or self-care (01) ==
PROVIDERS: Physician Assistant; Emergency Provider Internal Medicine; PCP Family Medicine
DX: M25.572 Pain in left ankle and joints of left foot (principal); E11.22 Type 2 diabetes mellitus with diabetic chronic kidney disease; N18.9 Chronic kidney disease, unspecified; Z94.0 Kidney transplant status; Z79.4 Long term (current) use of insulin
CPT/HCPCS: 36415; 73610; 80053; 83735; 85025; 85610; 85652; 86140; 99282; 99283

== ENCOUNTER 2023-11-04 11:30 | Outpatient (AMB) | payer OTHER, SELFPAY ==
--- NOTE | 2023-11-04 11:56 | MHC.PC.OV ---
Vital Signs 11/04/23 11:57 Height 5 ft 6 in Weight 118 lb 2 oz BMI 19.1 BP 118/70 Blood Pressure Location Lt brachial Position Sitting Pulse 80 Pulse Source Pulse Oximeter Pulse Oximetry (%) 98 Intake Visit Reasons: Diabetes F/U Intake Note: Patient is here to follow up on diabetes, also for a week, he has been complaining of left foot swelling, and feeling of hotness. Allergies No Known Allergies Allergy (Verified 11/04/23 11:59) Medication List - Last Reconciled 11/04/23 by Geovanni Pink MD apixaban 5 mg PO BID calcifediol ER (Rayaldee) 30 mcg PO BEDTIME cefuroxime axetil 500 mg PO Q12H diabetic supplies, [employer]. DIABETIC SHOES everolimus (immunosuppressive) 2 mg PO BID insulin aspart U-100 (Novolog FlexPen U-100 Insulin aspart) 4 units (0.04 mL) subcut TIDAC 30 days insulin glargine (Lantus Solostar U-100 Insulin) 20 units (0.2 mL) subcut BEDTIME 30 days lancets (FreeStyle Lancets) As directed mirtazapine 7.5 mg PO BEDTIME mycophenolate sodium 540 mg PO BID pen needle, diabetic As directed rosuvastatin 10 mg PO BEDTIME Tobacco use date assessed: 11/04/23 Dental Screening Dental Screen Date: 09/25/23 HPI Diabetes F/U HPI Details 53 y/o male presents to f/u diabetes. A1c today 11/04/23 7.4%. He is on Novolog 4 units, Lantus 20 units. Pt reports morning blood sugars in the 140s. Pt has complaints of L foot swelling and pain. [facility] Medical History (Updated 11/04/23 @ 12:32 by Shukri Robertson) PAD (peripheral artery disease) CKD (chronic kidney disease) stage 3, GFR 30-59 ml/min HTN (hypertension) MSSA bacteremia Osteomyelitis of third toe of left foot S/P angiogram of extremity (10/08/22) Diabetic ulcer of right foot Osteomyelitis Wound of right foot Chronic right shoulder pain Multinodular goiter Testicular cancer Bleeding internal hemorrhoids Seminoma Paresthesia and pain of extremity Type 2 diabetes mellitus with hyperglycemia, with long-term current use of insulin Type 2 diabetes mellitus with chronic kidney disease Hyperlipidemia Vaccination refused by patient Refused pneumococcal vaccination Anemia in stage 4 chronic kidney disease Acute proliferative glomerulonephritis Secondary hyperparathyroidism of renal origin Mixed dyslipidemia Peripheral vascular disease Carpal tunnel syndrome on left Diabetes mellitus with diabetic nephropathy, with long-term current use of insulin Osteomyelitis of left foot Diabetes mellitus with foot ulcer End-stage renal disease on hemodialysis Surgical History (Updated 09/11/23 @ 10:32 by Paulo Tellez MD) Renal transplant recipient History of amputation (01/19/23) Amputated toe of right foot (10/13/22) History of kidney transplant Kidney transplant recipient Family History Father Unknown family medical history Mother Diabetes mellitus HTN (hypertension) CVD (cardiovascular disease) History of CVA (cerebrovascular accident) Stroke Sister Diabetes mellitus Daughter No problems noted. Sister No problems noted. Sister No problems noted. Social History Household Members: Family Housing: House Do you presently have visiting nurse or other home services: No Alcohol intake: never Patient Tobacco Use Status: Never used Tobacco e-Cigarette/Vaping Use: Never Used Advance Directives Date on File: 01/16/23 service: No Current occupational status: disabled Current occupation: disability - kidney transplant. Left side dominant Cognitive needs: No Hearing needs: No Vision needs: No Questionnaire Thrive Questionnaire Date Thrive assessed: 08/05/23 Review of Systems Const Denies chills, Denies fatigue, Denies fever(s), Denies headache(s) and Denies weakness ENT Denies dizziness and Denies headache(s) Card Denies dyspnea Resp Denies cough, Denies dyspnea, Denies wheezing and Denies other (shortness of breath) Musc Details: L foot pain/swelling Denies numbness and Denies tingling Neuro Denies dizziness, Denies headache(s), Denies numbness, Denies tingling and Denies weakness Psych Denies anxiety and Denies depression Endo Denies fatigue Aller/Immun Denies wheezing Physical exam (Primary Care) Vital Signs: Last Vital Signs Pulse 80 11/04/23 11:57 BP 118/70 11/04/23 11:57 Pulse Ox 98 11/04/23 11:57 BMI result Body Mass Index 19.1 Tobacco/Smoking Status: Tobacco use Status Tobacco use date assessed 11/04/23 11/04/23 12:00 Patient Tobacco Use Status Never used Tobacco 11/04/23 12:00 e-Cigarette/Vaping Use Never Used 11/04/23 12:00 Thrive Assessment: Date of Thrive Assessment Date Thrive assessed 08/05/23 11/04/23 12:00 Const General: well developed; No acute distress Nutritional Appearance: well nourished Orientation/consciousness: patient oriented x3 HENMT Head: Yes normocephalic and Yes atraumatic Eyes General: appearance normal, both eyes and all related structures Pupils: Equal, round and reactive pupils present EOM: EOMs intact bilaterally Resp Effort & Inspection: normal respiratory effort Neuro General: patient oriented x3 and gait normal Cranial nerves: Yes Equal, round and reactive pupils present Psych Affect: normal affect Assessment and Plan Assessment & Plan (1) Diabetes mellitus with diabetic nephropathy, with long-term current use of insulin: Code(s): E11.21 - Type 2 diabetes mellitus with diabetic nephropathy; Z79.4 - skilled nursing (current) use of insulin Qualifiers: Diabetes mellitus type: type 2 Qualified Code(s): E11.21 - Type 2 diabetes mellitus with diabetic nephropathy; Z79.4 - predatory animal exterminator (current) use of insulin Plan: A1c?7.4%.??Goal?is?less?than?7.0% He?has?morning?blood?sugars?around?140.??He?says?his?daytime?blood?sugars?climb?higher?when?he?takes?his?medications?and?foods. He?will?increase?his?prandial?insulins?slightly; 5?units?prior?to?each?meal.??Continue?basal?insulin?as?prescribed We?discussed?starting?Farxiga?which?would?help?control?his?blood?sugars?and?also?be?renal?protective. He?would?like?to?think?about?this.??He?will?research?this?and?let?me?know.??We?will?follow-up?in?1?month?to?discuss?again.?? (2) Left foot pain: Code(s): M79.672 - Pain in left foot Plan: FYI?that?patient?has?left?ankle?pain?and?saw?Podiatry.??He?has?an?upcoming?appointment?and?I?recommended?he?follow-up?with?the?turret punch operator. He?will?finish?antibiotic?which?was?prescribed I?advised?he?elevate?his?foot?and?follow?the?turret punch operator?recommendations. Coding Level of Care Code Est Pt Level 3 (22867) Diagnoses Type 2 diabetes mellitus with diabetic nephropathy, with long-term current use of insulin E11.21; Z79.4 Diabetes mellitus type: type 2 Left foot pain M79.672
[2023-11-04 11:57] VITALS: BP 118/70; PULSE 80; O2SAT 98; BMI 19.1
== END 2023-11-04 16:52 | disposition home or self-care (01) ==
PROVIDERS: PCP Family Medicine; Visit Provider Family Medicine
DX: E11.21 Type 2 diabetes mellitus with diabetic nephropathy (principal); Z79.4 Long term (current) use of insulin; M79.672 Pain in left foot
CPT/HCPCS: 99213

== ENCOUNTER 2023-11-30 07:29 | Outpatient (REF) | payer OTHER, SELFPAY ==
[2023-11-30 07:51] LABS: MANUAL DIFF FLAG NO
[2023-11-30 08:05] LABS: Basophils Percent Auto 0.3 % (0-2); Eosinophils Absolute Auto 0.1 X10*3/uL (0.0-0.4); Eosinophils Percent Auto 1.7 % (0-4); Hematocrit 42.1 % (42.0-52.0); Hemoglobin 13.2 g/dl (14.0-18.0); Imm Gran Abs Auto 0.07 X10*3/uL (0.00-0.03); Imm Gran Pct Auto 1.2 % (0.0-0.4); Lymphocytes Absolute Auto 1.6 X10*3/uL (1.2-4.9); Lymphocytes Percent Auto 27.5 % (20-40); Mean Corpuscular HGB Conc 31.4 g/dl (31.0-36.0); Mean Corpuscular Hemoglobin 26.3 pg (27.0-33.0); Mean Corpuscular Volume 83.9 fL (80.0-98.0); Mean Platelet Volume 12.2 fL (9.4-12.4); Monocytes Absolute Auto 0.8 X10*3/uL (0.1-1.2); Monocytes Percent Auto 13.8 % (2-11); Neutrophils Absolute Auto 3.2 x10*3/uL (2.0-8.3); Neutrophils Percent Auto 55.5 % (45-73); Platelet Count 164 X10*3/uL (160-400); Red Blood Count 5.02 X10*6/uL (4.60-5.80); Red Cell Distribution Width 16.5 % (11.0-16.0); White Blood Count 5.8 X10*3/uL (4.8-10.8)
[2023-11-30 08:35] LABS: Alanine Aminotransferase 14 U/L (0-40); Anion Gap 14 (12-20); Aspartate Amino Transferase 18 U/L (5-37); Blood Urea Nitrogen 19 mg/dL (9-16); Calcium 9.1 mg/dL (8.4-10.2); Carbon Dioxide 24 mmol/L (22-29); Chloride 110 mmol/L (96-108); Estimated Glomerular Filt Rate 36; Phosphorus 2.8 mg/dL (2.7-4.5); Potassium 3.9 mmol/L (3.3-5.1); Sodium 144 mmol/L (135-145)
[2023-11-30 08:37] LABS: Parathyroid Hormone Intact 248.4 pg/mL (8.7-77.1)
[2023-11-30 08:51] LABS: Vitamin D 25-OH Total 57.1 ng/mL (>30)
== END 2023-11-30 07:30 | disposition home or self-care (01) ==
LOC: HO.LAB 07:29
PROVIDERS: PCP Family Medicine; Visit Provider Internal Medicine Nephrology
DX: Z94.0 Kidney transplant status (principal)
CPT/HCPCS: 36415; 80051; 80169; 82306; 82310; 82565; 83970; 84100; 84450; 84460; 84520; 85025

== ENCOUNTER 2023-12-07 07:38 | Outpatient (REF) | payer OTHER, SELFPAY ==
--- NOTE | ~2023-12-07 | US_ITS ---
EXAMINATION: NONINVASIVE ASSESSMENT OF THE ARTERIES OF BOTH LOWER EXTREMITIES INCLUDING PVR EXAM AND BILATERAL LOWER EXTREMITY DUPLEX CLINICAL INFORMATION: peripheral vascular disease COMPARISON: Arterial duplex and ABIs July 13, 2023 TECHNIQUE: Ankle pulse volume recordings, ankle pressure measurements and ankle brachial indices were obtained of the lower extremity arterial system bilaterally in addition to duplex Doppler techniques with wave form analysis and measurement of velocities in the common femoral, profunda femoral, superficial femoral, popliteal, tibial and peroneal arteries. The study was performed only at rest. FINDINGS: RIGHT LEG 1. Right Ankle-Brachial Index: 0.96 (higher of the DP/PT) >0.97-1.25 = normal - no significant arterial disease 0.75-0.96 = mild peripheral arterial disease 0.5-0.74 = moderate peripheral arterial disease <0.50 = severe peripheral arterial disease <0.30 = critical arterial disease 2. Segmental Pressures (mmHg): Brachial: 118 Ankle: PT 113, DP 93 3. PVR Waveforms: Ankle: Normal 4. Direct Duplex: Common femoral artery: 117 cm/s, Multiphasic Profunda femoris artery: 127.8 cm/s, Multiphasic Superficial femoral artery (proximal): 77.5 cm/s, Multiphasic Superficial femoral artery (mid): 77.5 cm/s, Multiphasic Superficial femoral artery (distal): 69.6 cm/s, Multiphasic Popliteal artery: 101.4 cm/s, Multiphasic Posterior tibial artery: 40.8 cm/s, Multiphasic LEFT LE. Left Ankle-Brachial Index: 1.14 (higher of the DP/PT) >0.97-1.25 = normal - no significant arterial disease 0.75-0.96 = mild peripheral arterial disease 0.5-0.74 = moderate peripheral arterial disease <0.50 = severe peripheral arterial disease <0.30 = critical arterial disease 2. Segmental Pressures: Brachial: 112 Ankle: PT 90, DP 135 3. PVR Waveforms: Ankle: Normal 4. Direct Duplex: Common femoral artery: 126 cm/s, Multiphasic Profunda femoris artery: 119 cm/s, Multiphasic Superficial femoral artery (proximal): 89.8 cm/s, Multiphasic Superficial femoral artery (mid): 148.7 cm/s, Multiphasic Superficial femoral artery (distal): 97.1 cm/s, Multiphasic Popliteal artery: 82.4 cm/s, Multiphasic Posterior tibial artery: 41.4 cm/s, Multiphasic US/US arterial duplex LE BI IMPRESSION: 1. Right ankle brachial index of 0.96, consistent with mild peripheral vascular disease. 2. Atherosclerotic plaque in the left mid SFA resulting in elevated velocity of 148.7 cm/s, consistent with a mild stenosis. 3. Normal left ankle-brachial index of 1.14.
== END 2023-12-07 07:39 | disposition home or self-care (01) ==
LOC: HO.US 07:38
PROVIDERS: PCP Family Medicine; Visit Provider Surgery Vascular Surgery
DX: I73.9 Peripheral vascular disease, unspecified (principal)
CPT/HCPCS: 93923; 93925

== ENCOUNTER 2023-12-09 09:49 | Outpatient (AMB) | payer OTHER, SELFPAY ==
--- NOTE | 2023-12-09 09:46 | HO.NEPHOV ---
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 He had been getting wound issues and was getting care at wound clinic and with vascular surgery & had right big toe removed . He denied any chills, nausea, vomiting, dizziness or palpitations. He denied any cardiopulmonary, gastrointestinal or genitourinary symptoms. Renal function is around baseline. His blood sugar is improving. He feels well. There were no new other active complaints at the time of this office visit. [facility] Medical History (Updated 12/09/23 @ 09:48 by Paulo Tellez MD) HTN (hypertension) PAD (peripheral artery disease) CKD (chronic kidney disease) stage 3, GFR 30-59 ml/min MSSA bacteremia Osteomyelitis of third toe of left foot S/P angiogram of extremity (10/08/22) Diabetic ulcer of right foot Osteomyelitis Wound of right foot Chronic right shoulder pain Multinodular goiter Testicular cancer Bleeding internal hemorrhoids Seminoma Paresthesia and pain of extremity Type 2 diabetes mellitus with hyperglycemia, with long-term current use of insulin Type 2 diabetes mellitus with chronic kidney disease Hyperlipidemia Vaccination refused by patient Refused pneumococcal vaccination Anemia in stage 4 chronic kidney disease Acute proliferative glomerulonephritis Secondary hyperparathyroidism of renal origin Mixed dyslipidemia Peripheral vascular disease Carpal tunnel syndrome on left Diabetes mellitus with diabetic nephropathy, with long-term current use of insulin Osteomyelitis of left foot Diabetes mellitus with foot ulcer End-stage renal disease on hemodialysis Surgical History (Updated 09/11/23 @ 10:32 by Paulo Tellez MD) Renal transplant recipient History of amputation (01/19/23) Amputated toe of right foot (10/13/22) History of kidney transplant Kidney transplant recipient Family History Father Unknown family medical history Mother Diabetes mellitus HTN (hypertension) CVD (cardiovascular disease) History of CVA (cerebrovascular accident) Stroke Sister Diabetes mellitus Daughter No problems noted. Sister No problems noted. Sister No problems noted. Social History Household Members: Family Housing: House Do you presently have visiting nurse or other home services: No Alcohol intake: never Patient Tobacco Use Status: Never used Tobacco e-Cigarette/Vaping Use: Never Used Advance Directives Date on File: 01/16/23 service: No Current occupational status: disabled Current occupation: disability - kidney transplant. Left side dominant Cognitive needs: No Hearing needs: No Vision needs: No Physical Exam Const General: comfortable and no acute distress Orientation/consciousness: patient oriented x3 HEENT Head: Yes normocephalic Mouth: Normal oral and palatal mucosa present Eyes EOM: EOMs intact bilaterally Neck Neck: Yes supple Resp Auscultation: clear to auscultation bilaterally Cardio Jugular venous distension: no JVD Rate: regular rate GI Palpation (GI): Soft to palpation Auscultation: normal bowel sounds General: Yes no CVA tenderness Back/Spine/Pelvis Back: no CVA tenderness Skin General skin exam: no rashes or lesions noted Neuro General: patient oriented x3 and moves all extremities Results Reviewed Nephrology Results: Hgb 13.2 g/dl (14.0-18.0) L 11/30/23 WBC 5.8 X10*3/uL (4.8-10.8) 11/30/23 Plt Count 164 X10*3/uL (160-400) 11/30/23 Sodium 144 mmol/L (135-145) 11/30/23 Potassium 3.9 mmol/L (3.3-5.1) 11/30/23 Chloride 110 mmol/L (96-108) H 11/30/23 Carbon Dioxide 24 mmol/L (22-29) 11/30/23 BUN 19 mg/dL (9-16) H 11/30/23 Creatinine 1.95 mg/dL (0.5-1.4) H 11/30/23 Calcium 9.1 mg/dL (8.4-10.2) 11/30/23 Phosphorus 2.8 mg/dL (2.7-4.5) 11/30/23 PTH Intact 248.4 pg/mL (8.7-77.1) H 11/30/23 Assessment & Plan Assessment & Plan (1) Secondary hyperparathyroidism of renal origin: Code(s): N25.81 - Secondary hyperparathyroidism of renal origin Category: Medical (2) Renal transplant recipient: Code(s): Z94.0 - Kidney transplant status Category: Surgical (3) HTN (hypertension): Code(s): I10 - Essential (primary) hypertension Category: Medical Qualifiers: Hypertension type: renovascular hypertension Qualified Code(s): I15.0 - Renovascular hypertension Plan Transplant renal function at baseline C/W current dose of MMF Reduced her Everolimus to 2 mg AM and 1 mg PM Needs better BS control @ home No NSAID's and good hydration Needs to continue with Oncology follow up Already on SGLT 2 i; Will need sensipar @ next visit C/W rest of current management for now Needs annual dermatology visit Will do a 24 hour urine collection in the subsequent visits All questions answered; F/U given Orders: Orders Creatinine Today Z94.0 - Kidney transplant status Blood Urea Nitrogen Today Z94.0 - Kidney transplant status Electrolytes Today Z94.0 - Kidney transplant status Other Ref Test - Misc Today Z94.0 - Kidney transplant status Complete Blood Count Auto Diff Today Z94.0 - Kidney transplant status Coding Level of Care Code Est Pt Level 4 (40461) Diagnoses Secondary hyperparathyroidism of renal origin N25.81 Renal transplant recipient Z94.0 Renovascular hypertension I15.0 Hypertension type: renovascular hypertension
[2023-12-09 10:17] VITALS: BP 114/70; PULSE 76; O2SAT 97; BMI 34.9
== END 2023-12-09 10:51 | disposition home or self-care (01) ==
PROVIDERS: PCP Family Medicine; Visit Provider Internal Medicine Nephrology
DX: N25.81 Secondary hyperparathyroidism of renal origin (principal); Z94.0 Kidney transplant status; I15.0 Renovascular hypertension
CPT/HCPCS: 99214

== ENCOUNTER → 2023-12-09 09:49 | Outpatient (BNVA) | payer OTHER, SELFPAY | PROVIDERS: PCP Family Medicine; Visit Provider Internal Medicine Nephrology | DX: I15.0 Renovascular hypertension (principal); N25.81 Secondary hyperparathyroidism of renal origin; Z94.0 Kidney transplant status | CPT/HCPCS: 99212 ==

== ENCOUNTER 2023-12-28 08:33 | Outpatient (AMB) | payer OTHER, SELFPAY ==
[2023-12-28 08:47] VITALS: BP 136/78; PULSE 85; O2SAT 99; BMI 34.3
--- NOTE | 2023-12-28 08:47 | AM.OFFWIN_ITS ---
Intake Vital Signs 12/28/23 08:47 Height 5 ft 6 in Weight 212 lb 6 oz BMI 34.3 BP 136/78 Blood Pressure Location Lt brachial Position Sitting Pulse 85 Pulse Source Pulse Oximeter Pulse Oximetry (%) 99 Oxygen Delivery Method Room Air Intake Visit Reasons: EP Fever/?infection Intake Note: Pt is here today for possible infection . Pt states he had a fever Thursday. 2M ago pt states he had cellulites in Lt leg and thinks its come back. Patient Tobacco Use Status: Never used Tobacco Allergies No Known Allergies Allergy (Verified 12/28/23 09:00) Do you need a note to return to daycare/school/sports/work: No HPI HPI Comments History of Present Illness Details Patient is a 53-year-old male with significant past medical history complaining of left lower leg rash pain and swelling. He states he has had cellulitis in the past and this is exactly how it felt. He also states he had a fever last Thursday of 103 degrees F but it resolved on its own. He states he has swelling in his left groin as well. And the last time he had a cellulitis, he notes that he had swelling in his left groin. He also notes that his left great toe was rubbing on his shoe yesterday so he wrapped it with gauze and is here today in postop shoes (on both feet). He states he has had several toe amputations on the left side. And he states he had surgery on the left great toe but does not want to take the bandage off at this time. [facility] Medical History (Updated 12/28/23 @ 09:25 by Meaghan Lara PA-C) HTN (hypertension) PAD (peripheral artery disease) CKD (chronic kidney disease) stage 3, GFR 30-59 ml/min MSSA bacteremia Osteomyelitis of third toe of left foot S/P angiogram of extremity (10/08/22) Diabetic ulcer of right foot Osteomyelitis Wound of right foot Chronic right shoulder pain Multinodular goiter Testicular cancer Bleeding internal hemorrhoids Seminoma Paresthesia and pain of extremity Type 2 diabetes mellitus with hyperglycemia, with long-term current use of insulin Type 2 diabetes mellitus with chronic kidney disease Hyperlipidemia Vaccination refused by patient Refused pneumococcal vaccination Anemia in stage 4 chronic kidney disease Acute proliferative glomerulonephritis Secondary hyperparathyroidism of renal origin Mixed dyslipidemia Peripheral vascular disease Carpal tunnel syndrome on left Diabetes mellitus with diabetic nephropathy, with long-term current use of insulin Osteomyelitis of left foot Diabetes mellitus with foot ulcer End-stage renal disease on hemodialysis Surgical History Renal transplant recipient History of amputation (01/19/23) Amputated toe of right foot (10/13/22) History of kidney transplant Kidney transplant recipient Family History Father Unknown family medical history Mother Diabetes mellitus HTN (hypertension) CVD (cardiovascular disease) History of CVA (cerebrovascular accident) Stroke Sister Diabetes mellitus Daughter No problems noted. Sister No problems noted. Sister No problems noted. Social History Household Members: Family Housing: House Do you presently have visiting nurse or other home services: No Alcohol intake: never Patient Tobacco Use Status: Never used Tobacco e-Cigarette/Vaping Use: Never Used Advance Directives Date on File: 01/16/23 service: No Current occupational status: disabled Current occupation: disability - kidney transplant. Left side dominant Cognitive needs: No Hearing needs: No Vision needs: No Review of Systems Const All systems reviewed & are unremarkable except as noted in HPI and below Physical Exam Vital Signs: Last Vital Signs Pulse 85 12/28/23 08:47 BP 136/78 12/28/23 08:47 Pulse Ox 99 12/28/23 08:47 Oxygen Delivery Method Room Air 12/28/23 08:47 BMI result Body Mass Index 34.3 Const General: cooperative, healthy appearing, comfortable, no acute distress and well developed Orientation/consciousness: patient oriented x3 Limitations: no limitations HEENT Head: Yes normal to inspection Eyes General: appearance normal, both eyes and all related structures Neck Neck: Yes normal visual inspection and Yes full ROM Resp Effort & Inspection: normal respiratory effort and able to speak in complete sentences Skin Other: Left anterior ankle, skin is darkened with slight induration, slight swelling, warmth noted, no ecchymosis, no petechiae. Neuro General: patient oriented x3 Extrem General: Yes normal to inspection Assessment & Plan Assessment & Plan (1) Cellulitis: Code(s): L03.90 - Cellulitis, unspecified Qualifiers: Site of cellulitis of extremity: lower extremity Laterality: left Site of cellulitis: extremity Qualified Code(s): L03.116 - Cellulitis of left lower limb Plan: Sent dose adjusted Keflex to pharmacy. Educated patient on the swelling in his left groin likely being lymph node swelling from the infection, educated him on following up with his primary care doctor if the swelling does not resolve after the infection is cleared. Also educated patient on proper wound care for his great toe. If no resolution in symptoms of the ankle, he should follow up with his primary care doctor. Plan see above Medications: New cephalexin 500 mg PO Q8H 15 caps 0RF Coding Level of Care Code Est Pt Level 3 (97793) Diagnoses Cellulitis of left lower extremity L03.116 Site of cellulitis of extremity: lower extremity Laterality: left Site of cellulitis: extremity
== END 2023-12-28 09:27 | disposition home or self-care (01) ==
PROVIDERS: PCP Family Medicine; Visit Provider Physician Assistant
DX: L03.116 Cellulitis of left lower limb (principal)
CPT/HCPCS: 99213

== ENCOUNTER 2024-01-14 09:13 | Outpatient (AMB) | payer OTHER, SELFPAY ==
--- NOTE | 2024-01-14 09:17 | MHC.OFFVIS ---
Intake Visit Reasons: 3m follow up s/p Arterial US 12/07/23 Intake Note: Patient presents for arterial US follow up. He states his left leg falls asleep anytime he tries to get out of bed or when he is sitting. No pain , random leg cramping. Allergies No Known Allergies Allergy (Verified 01/14/24 09:18) HPI HPI 3m follow up s/p Arterial US 12/07/23: Details: Very pleasant 53-year-old gentleman presents for follow-up regarding peripheral vascular status. He has been a diabetic since the age of 34. He had undergone noninvasive testing by us. Of note he has undergone left great toe amputation and right great toe surgery as well by foot and ankle surgery. He reports he is doing extremely well. He now presents for routine follow-up. [facility] Medical History HTN (hypertension) PAD (peripheral artery disease) CKD (chronic kidney disease) stage 3, GFR 30-59 ml/min MSSA bacteremia Osteomyelitis of third toe of left foot S/P angiogram of extremity (10/08/22) Diabetic ulcer of right foot Osteomyelitis Wound of right foot Chronic right shoulder pain Multinodular goiter Testicular cancer Bleeding internal hemorrhoids Seminoma Paresthesia and pain of extremity Type 2 diabetes mellitus with hyperglycemia, with long-term current use of insulin Type 2 diabetes mellitus with chronic kidney disease Hyperlipidemia Vaccination refused by patient Refused pneumococcal vaccination Anemia in stage 4 chronic kidney disease Acute proliferative glomerulonephritis Secondary hyperparathyroidism of renal origin Mixed dyslipidemia Peripheral vascular disease Carpal tunnel syndrome on left Diabetes mellitus with diabetic nephropathy, with long-term current use of insulin Osteomyelitis of left foot Diabetes mellitus with foot ulcer End-stage renal disease on hemodialysis Surgical History Renal transplant recipient History of amputation (01/19/23) Amputated toe of right foot (10/13/22) History of kidney transplant Kidney transplant recipient Family History Father Unknown family medical history Mother Diabetes mellitus HTN (hypertension) CVD (cardiovascular disease) History of CVA (cerebrovascular accident) Stroke Sister Diabetes mellitus Daughter No problems noted. Sister No problems noted. Sister No problems noted. Social History Household Members: Family Housing: House Do you presently have visiting nurse or other home services: No Alcohol intake: never Patient Tobacco Use Status: Never used Tobacco e-Cigarette/Vaping Use: Never Used Advance Directives Date on File: 01/16/23 service: No Current occupational status: disabled Current occupation: disability - kidney transplant. Left side dominant Cognitive needs: No Hearing needs: No Vision needs: No Review of Systems Const All systems reviewed & are unremarkable except as noted in HPI and below Reports no additional complaints ENT Reports Normal hearing present Card Denies chest pain, Denies chest pain at rest, Denies chest pain with activity and Denies pedal edema Resp Denies cough GI Denies abdominal pain Musc Denies abnormal gait, Denies muscle cramps and Denies radiating pain into limb Skin/Breast Denies skin ulcer and Denies wounds Neuro Reports Normal hearing present and Denies abnormal gait Psych Reports no additional complaints Physical Exam Const General: cooperative, healthy appearing and comfortable Orientation/consciousness: oriented to person, oriented to place and oriented to time HEENT Head: Yes normal to inspection Neck Neck: Yes normal visual inspection Carotids: no bruits Chest Chest palpation & inspection: normal inspection of the chest Resp Effort & Inspection: normal respiratory effort and able to speak in complete sentences Auscultation: clear to auscultation bilaterally, no crackles, no rales, no rhonchi and no wheezes Cardio Rate: regular rate Rhythm: regular rhythm Heart sounds: S1 normal heart sound present and S2 normal heart sound present Bruits: no carotid bruits Peripheral pulses: Peripheral pulses 2+ throughout GI Inspection: Yes normal to inspection Skin Other: Amp site healed Wounds: amputation site Hair: normal Neuro General: oriented to person, oriented to place and oriented to time Cranial nerves: Yes CN's II-XII intact bilaterally and Yes Normal hearing present Cognition (Neuro): normal cognition Motor exam (neuro): 5/5 motor strength present throughout Extrem Other: venous exam: No significant superficial varicosities or spider telangiectasias, minimal edema General: No clubbing, No cyanosis and No edema Psych Appearance: grossly normal Mental Status: mental status grossly normal Speech and movement: Normal speech and movement present Results Reviewed Results Reviewed: Noninvasive arterial testing demonstrates NOY on the right of 0.96 and on the left of 1.14 with good waveforms. Written report and images were reviewed of testing dated 12/07/2023 Assessment & Plan Assessment & Plan (1) PAD (peripheral artery disease): Comment: 08/10/2023 - diagnostic angiogram Code(s): I73.9 - Peripheral vascular disease, unspecified Category: Medical Plan: In short patient has stable peripheral vascular disease. His amputation site has gone on to heal and he is doing well with all other foot surgery. We did discuss routine risk factor modification and the importance of diabetes control. We will schedule him for annual vascular surveillance follow-up. Thank you for allowing us to assist in his care. If there are any questions or concerns please do not hesitate to contact us. Orders: Orders US arterial duplex LE BI 1 Year I73.9 - Peripheral vascular disease, unspecified Coding Level of Care Code Est Pt Level 4 (54550) Diagnoses PAD (peripheral artery disease) I73.9
== END 2024-01-14 09:42 | disposition home or self-care (01) ==
PROVIDERS: PCP Family Medicine; Visit Provider Surgery Vascular Surgery
DX: I73.9 Peripheral vascular disease, unspecified (principal)
CPT/HCPCS: 99214

== ENCOUNTER → 2024-01-14 09:13 | Outpatient (BNVA) | payer OTHER, SELFPAY | PROVIDERS: PCP Family Medicine; Visit Provider Surgery Vascular Surgery | DX: I73.9 Peripheral vascular disease, unspecified (principal) | CPT/HCPCS: 99212 ==

== ENCOUNTER 2024-01-30 07:40 | Outpatient (REF) | payer OTHER, SELFPAY ==
[2024-01-30 08:01] LABS: MANUAL DIFF FLAG NO
[2024-01-30 08:11] LABS: Basophils Percent Auto 0.4 % (0-2); Eosinophils Absolute Auto 0.1 X10*3/uL (0.0-0.4); Eosinophils Percent Auto 1.6 % (0-4); Hematocrit 43.6 % (42.0-52.0); Hemoglobin 13.8 g/dl (14.0-18.0); Imm Gran Abs Auto 0.07 X10*3/uL (0.00-0.03); Lymphocytes Absolute Auto 1.9 X10*3/uL (1.2-4.9); Lymphocytes Percent Auto 25.5 % (20-40); Mean Corpuscular HGB Conc 31.7 g/dl (31.0-36.0); Mean Corpuscular Hemoglobin 26.6 pg (27.0-33.0); Mean Corpuscular Volume 84.2 fL (80.0-98.0); Mean Platelet Volume 11.6 fL (9.4-12.4); Monocytes Absolute Auto 0.8 X10*3/uL (0.1-1.2); Monocytes Percent Auto 10.6 % (2-11); Neutrophils Absolute Auto 4.5 x10*3/uL (2.0-8.3); Neutrophils Percent Auto 60.9 % (45-73); Platelet Count 160 X10*3/uL (160-400); Red Blood Count 5.18 X10*6/uL (4.60-5.80); Red Cell Distribution Width 16.4 % (11.0-16.0); White Blood Count 7.3 X10*3/uL (4.8-10.8)
[2024-01-30 08:45] LABS: Anion Gap 17 (12-20); Blood Urea Nitrogen 14 mg/dL (9-16); Carbon Dioxide 20 mmol/L (22-29); Chloride 109 mmol/L (96-108); Estimated Glomerular Filt Rate 40; Potassium 3.2 mmol/L (3.3-5.1); Sodium 143 mmol/L (135-145)
== END 2024-01-30 07:41 | disposition home or self-care (01) ==
LOC: HO.LAB 07:40
PROVIDERS: PCP Family Medicine; Visit Provider Internal Medicine Nephrology
DX: Z94.0 Kidney transplant status (principal)
CPT/HCPCS: 80051; 80169; 82565; 84520; 85025

== ENCOUNTER 2024-02-01 14:22 | Outpatient (AMB) | payer OTHER, SELFPAY ==
[2024-02-01 14:30] VITALS: BP 104/60; PULSE 87; O2SAT 96; BMI 34.0
--- NOTE | 2024-02-01 14:30 | HO.NEPHOV_ITS ---
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 He had wound issues and was getting care at wound clinic and with vascular surgery & had right big toe removed . He is going to have hammer toe fixed on Sep by Dr Aydee Diaz in [facility]. He denied any chills, nausea, vomiting, dizziness or palpitations. He denied any cardiopulmonary, gastrointestinal or genitourinary symptoms. Renal function is around baseline. His blood sugar is improving. There were no new other active complaints at the time of this office visit. [facility] Medical History HTN (hypertension) PAD (peripheral artery disease) CKD (chronic kidney disease) stage 3, GFR 30-59 ml/min MSSA bacteremia Osteomyelitis of third toe of left foot S/P angiogram of extremity (10/08/22) Diabetic ulcer of right foot Osteomyelitis Wound of right foot Chronic right shoulder pain Multinodular goiter Testicular cancer Bleeding internal hemorrhoids Seminoma Paresthesia and pain of extremity Type 2 diabetes mellitus with hyperglycemia, with long-term current use of insulin Type 2 diabetes mellitus with chronic kidney disease Hyperlipidemia Vaccination refused by patient Refused pneumococcal vaccination Anemia in stage 4 chronic kidney disease Acute proliferative glomerulonephritis Secondary hyperparathyroidism of renal origin Mixed dyslipidemia Peripheral vascular disease Carpal tunnel syndrome on left Diabetes mellitus with diabetic nephropathy, with long-term current use of insulin Osteomyelitis of left foot Diabetes mellitus with foot ulcer End-stage renal disease on hemodialysis Surgical History Renal transplant recipient History of amputation (01/19/23) Amputated toe of right foot (10/13/22) History of kidney transplant Kidney transplant recipient Family History Father Unknown family medical history Mother Diabetes mellitus HTN (hypertension) CVD (cardiovascular disease) History of CVA (cerebrovascular accident) Stroke Sister Diabetes mellitus Daughter No problems noted. Sister No problems noted. Sister No problems noted. Social History Household Members: Family Housing: House Do you presently have visiting nurse or other home services: No Alcohol intake: never Patient Tobacco Use Status: Never used Tobacco e-Cigarette/Vaping Use: Never Used Advance Directives Date on File: 01/16/23 service: No Current occupational status: disabled Current occupation: disability - kidney transplant. Left side dominant Cognitive needs: No Hearing needs: No Vision needs: No Physical Exam Vital Signs: Last Vital Signs Pulse 87 02/01/24 14:30 BP 104/60 02/01/24 14:30 Pulse Ox 96 02/01/24 14:30 Oxygen Delivery Method Room Air 02/01/24 14:30 BMI result Body Mass Index 34.0 Const General: comfortable and no acute distress Orientation/consciousness: patient oriented x3 HEENT Head: Yes normocephalic Mouth: Normal oral and palatal mucosa present Eyes EOM: EOMs intact bilaterally Neck Neck: Yes supple Resp Auscultation: clear to auscultation bilaterally Cardio Jugular venous distension: no JVD Rate: regular rate GI Palpation (GI): Soft to palpation Auscultation: normal bowel sounds General: Yes no CVA tenderness Back/Spine/Pelvis Back: no CVA tenderness Skin General skin exam: no rashes or lesions noted Neuro General: patient oriented x3 and moves all extremities Results Reviewed Nephrology Results: Hgb 13.8 g/dl (14.0-18.0) L 01/30/24 WBC 7.3 X10*3/uL (4.8-10.8) 01/30/24 Plt Count 160 X10*3/uL (160-400) 01/30/24 Sodium 143 mmol/L (135-145) 01/30/24 Potassium 3.2 mmol/L (3.3-5.1) L 01/30/24 Chloride 109 mmol/L (96-108) H 01/30/24 Carbon Dioxide 20 mmol/L (22-29) L 01/30/24 BUN 14 mg/dL (9-16) 01/30/24 Creatinine 1.78 mg/dL (0.5-1.4) H 01/30/24 Calcium 9.1 mg/dL (8.4-10.2) 11/30/23 Phosphorus 2.8 mg/dL (2.7-4.5) 11/30/23 PTH Intact 248.4 pg/mL (8.7-77.1) H 11/30/23 Assessment & Plan Assessment & Plan (1) Renal transplant recipient: Code(s): Z94.0 - Kidney transplant status Category: Surgical (2) HTN (hypertension): Code(s): I10 - Essential (primary) hypertension Category: Medical Qualifiers: Hypertension type: renovascular hypertension Qualified Code(s): I15.0 - Renovascular hypertension Plan Transplant renal function at baseline C/W current dose of MMF Reduced her Everolimus to 2 mg AM and 1 mg PM Needs better BS control @ home No NSAID's and good hydration Needs to continue with Oncology follow up Already on SGLT 2 i; May need to increase Rayaldee @ next visit C/W rest of current management for now Needs annual dermatology visit No renal reservations to have Hammer toe surgery All questions answered; F/U given Orders: Orders Other Ref Test - Misc 2 Months I15.0 - Renovascular hypertension, Z94.0 - Kidney transplant status Creatinine 2 Months I15.0 - Renovascular hypertension, Z94.0 - Kidney transplant status Blood Urea Nitrogen 2 Months I15.0 - Renovascular hypertension, Z94.0 - Kidney transplant status Electrolytes 2 Months I15.0 - Renovascular hypertension, Z94.0 - Kidney transplant status Calcium 2 Months I15.0 - Renovascular hypertension, Z94.0 - Kidney transplant status Complete Blood Count Auto Diff 2 Months I15.0 - Renovascular hypertension, Z94.0 - Kidney transplant status Alanine Aminotransferase 2 Months I15.0 - Renovascular hypertension, Z94.0 - Kidney transplant status Aspartate Amino Transferase 2 Months I15.0 - Renovascular hypertension, Z94.0 - Kidney transplant status Medications: Refilled apixaban 5 mg PO BID 90 days 180 tabs 4RF calcifediol ER (Rayaldee) 30 mcg PO BEDTIME 90 days 90 caps 4RF mycophenolate sodium 540 mg (3 x 180 mg) PO BID 90 days 540 tabs 4RF Coding Level of Care Code Est Pt Level 4 (21987) Diagnoses Renal transplant recipient Z94.0 Renovascular hypertension I15.0 Hypertension type: renovascular hypertension
== END 2024-02-01 14:54 | disposition home or self-care (01) ==
LOC: HO.HKA 14:22
PROVIDERS: PCP Family Medicine; Visit Provider Internal Medicine Nephrology
DX: E11.29 Type 2 diabetes mellitus with other diabetic kidney complication (principal); I15.0 Renovascular hypertension; N18.9 Chronic kidney disease, unspecified; Z94.0 Kidney transplant status
CPT/HCPCS: 99214

== ENCOUNTER → 2024-02-01 14:22 | Outpatient (BNVA) | payer OTHER, SELFPAY | PROVIDERS: PCP Family Medicine; Visit Provider Internal Medicine Nephrology | DX: E11.22 Type 2 diabetes mellitus with diabetic chronic kidney disease (principal); N18.9 Chronic kidney disease, unspecified; I15.0 Renovascular hypertension; Z94.0 Kidney transplant status; Z79.4 Long term (current) use of insulin | CPT/HCPCS: 99212 ==

== ENCOUNTER 2024-03-23 10:02 | Outpatient (REF) | payer OTHER, SELFPAY ==
[2024-03-23 10:37] LABS: MANUAL DIFF FLAG NO
[2024-03-23 11:22] LABS: Basophils Percent Auto 0.4 % (0-2); Eosinophils Absolute Auto 0.1 X10*3/uL (0.0-0.4); Eosinophils Percent Auto 1.3 % (0-4); Hematocrit 48.1 % (42.0-52.0); Hemoglobin 14.9 g/dl (14.0-18.0); Imm Gran Abs Auto 0.09 X10*3/uL (0.00-0.03); Imm Gran Pct Auto 1.2 % (0.0-0.4); Mean Corpuscular Hemoglobin 26.6 pg (27.0-33.0); Mean Corpuscular Volume 85.9 fL (80.0-98.0); Mean Platelet Volume 11.5 fL (9.4-12.4); Monocytes Absolute Auto 0.9 X10*3/uL (0.1-1.2); Monocytes Percent Auto 12.2 % (2-11); Neutrophils Absolute Auto 4.4 x10*3/uL (2.0-8.3); Neutrophils Percent Auto 57.9 % (45-73); Platelet Count 171 X10*3/uL (160-400); White Blood Count 7.5 X10*3/uL (4.8-10.8)
[2024-03-23 11:33] LABS: Alanine Aminotransferase 18 U/L (0-40); Anion Gap 11 (12-20); Aspartate Amino Transferase 18 U/L (5-37); Blood Urea Nitrogen 19 mg/dL (9-16); Calcium 9.4 mg/dL (8.4-10.2); Carbon Dioxide 28 mmol/L (22-29); Chloride 109 mmol/L (96-108); Estimated Glomerular Filt Rate 46; Potassium 3.6 mmol/L (3.3-5.1); Sodium 144 mmol/L (135-145)
== END 2024-03-23 10:03 | disposition home or self-care (01) ==
LOC: HO.LAB 10:02
PROVIDERS: PCP Family Medicine; Visit Provider Internal Medicine Nephrology
DX: Z94.0 Kidney transplant status (principal); I15.0 Renovascular hypertension
CPT/HCPCS: 36415; 80051; 80169; 82310; 82565; 84450; 84460; 84520; 85025

== ENCOUNTER 2024-04-01 11:14 | Outpatient (AMB) | payer OTHER, SELFPAY ==
[2024-04-01 11:41] VITALS: BP 102/60; PULSE 92; O2SAT 97; BMI 34.0
--- NOTE | 2024-04-01 11:41 | HO.NEPHOV ---
Vital Signs 04/01/24 11:41 Height 5 ft 6 in Weight 210 lb 6 oz BMI 34.0 BP 102/60 Blood Pressure Location Rt brachial Position Sitting Pulse 92 Pulse Source Pulse Oximeter Pulse Oximetry (%) 97 Oxygen Delivery Method Room Air Intake Visit Reasons: Hypertension- Conf Payroll Administrative Assistant Required: No Accompanied by: Sister Allergies No Known Allergies Allergy (Verified 04/01/24 11:44) HPI Comments Details: Raheem Castro is 53 years with type 2 diabetes mellitus on insulin, chronic kidney disease s/p living donor renal transplant from who also has H/O treated seminoma post transplant. He had his hammer toe fixed on Sep by Dr Aydee Diaz in [facility]. He denied any chills, nausea, vomiting, dizziness or palpitations. He denied any cardiopulmonary, gastrointestinal or genitourinary symptoms. Renal function is around baseline. His blood sugar is stable. There were no new other active complaints at the time of this office visit [facility] Medical History HTN (hypertension) PAD (peripheral artery disease) CKD (chronic kidney disease) stage 3, GFR 30-59 ml/min MSSA bacteremia Osteomyelitis of third toe of left foot S/P angiogram of extremity (10/08/22) Diabetic ulcer of right foot Osteomyelitis Wound of right foot Chronic right shoulder pain Multinodular goiter Testicular cancer Bleeding internal hemorrhoids Seminoma Paresthesia and pain of extremity Type 2 diabetes mellitus with hyperglycemia, with long-term current use of insulin Type 2 diabetes mellitus with chronic kidney disease Hyperlipidemia Vaccination refused by patient Refused pneumococcal vaccination Anemia in stage 4 chronic kidney disease Acute proliferative glomerulonephritis Secondary hyperparathyroidism of renal origin Mixed dyslipidemia Peripheral vascular disease Carpal tunnel syndrome on left Diabetes mellitus with diabetic nephropathy, with long-term current use of insulin Osteomyelitis of left foot Diabetes mellitus with foot ulcer End-stage renal disease on hemodialysis Surgical History Renal transplant recipient History of amputation (01/19/23) Amputated toe of right foot (10/13/22) History of kidney transplant Kidney transplant recipient Family History Father Unknown family medical history Mother Diabetes mellitus HTN (hypertension) CVD (cardiovascular disease) History of CVA (cerebrovascular accident) Stroke Sister Diabetes mellitus Daughter No problems noted. Sister No problems noted. Sister No problems noted. Social History Household Members: Family Housing: House Do you presently have visiting nurse or other home services: No Alcohol intake: never Patient Tobacco Use Status: Never used Tobacco e-Cigarette/Vaping Use: Never Used Advance Directives Date on File: 01/16/23 service: No Current occupational status: disabled Current occupation: disability - kidney transplant. Left side dominant Cognitive needs: No Hearing needs: No Vision needs: No Review of Systems Const All systems reviewed & are unremarkable except as noted in HPI and below Physical Exam Vital Signs: Last Vital Signs Pulse 92 04/01/24 11:41 BP 102/60 04/01/24 11:41 Pulse Ox 97 04/01/24 11:41 Oxygen Delivery Method Room Air 04/01/24 11:41 BMI result Body Mass Index 34.0 Const General: comfortable and no acute distress Orientation/consciousness: patient oriented x3 HEENT Head: Yes normocephalic Mouth: Normal oral and palatal mucosa present Eyes EOM: EOMs intact bilaterally Neck Neck: Yes supple Resp Auscultation: clear to auscultation bilaterally Cardio Jugular venous distension: no JVD Rate: regular rate GI Palpation (GI): Soft to palpation Auscultation: normal bowel sounds General: Yes no CVA tenderness Back/Spine/Pelvis Back: no CVA tenderness Skin General skin exam: no rashes or lesions noted Neuro General: patient oriented x3 and moves all extremities Results Reviewed Nephrology Results: Hgb 14.9 g/dl (14.0-18.0) 03/23/24 WBC 7.5 X10*3/uL (4.8-10.8) 03/23/24 Plt Count 171 X10*3/uL (160-400) 03/23/24 Sodium 144 mmol/L (135-145) 03/23/24 Potassium 3.6 mmol/L (3.3-5.1) 03/23/24 Chloride 109 mmol/L (96-108) H 03/23/24 Carbon Dioxide 28 mmol/L (22-29) 03/23/24 BUN 19 mg/dL (9-16) H 03/23/24 Creatinine 1.59 mg/dL (0.5-1.4) H 03/23/24 Calcium 9.4 mg/dL (8.4-10.2) 03/23/24 Phosphorus 2.8 mg/dL (2.7-4.5) 11/30/23 PTH Intact 248.4 pg/mL (8.7-77.1) H 11/30/23 Assessment & Plan Assessment & Plan (1) HTN (hypertension): Code(s): I10 - Essential (primary) hypertension Category: Medical Qualifiers: Hypertension type: renovascular hypertension Qualified Code(s): I15.0 - Renovascular hypertension (2) Secondary hyperparathyroidism of renal origin: Code(s): N25.81 - Secondary hyperparathyroidism of renal origin Category: Medical (3) Type 2 diabetes mellitus with chronic kidney disease: Code(s): E11.22 - Type 2 diabetes mellitus with diabetic chronic kidney disease Category: Medical Qualifiers: Diabetes mellitus terminal supervisor insulin use: with terminal supervisor use Chronic kidney disease stage: stage 3 (moderate) Chronic kidney disease stage 3 subtype: unspecified whether 3a or 3b Qualified Code(s): E11. - Type 2 diabetes mellitus with diabetic chronic kidney disease; N18.30 - Chronic kidney disease, stage 3 unspecified; Z79.4 - truck terminal manager (current) use of insulin (4) Renal transplant recipient: Code(s): Z94.0 - Kidney transplant status Category: Surgical Plan Transplant renal function at baseline C/W current dose of MMF Reduced Everolimus to 2 mg AM and 1 mg PM Needs better BS control @ home No NSAID's and good hydration Already on SGLT 2 i; May need to increase Rayaldee @ next visit C/W rest of current management for now Needs annual dermatology visit All questions answered; F/U given Orders: Orders Complete Blood Count Auto Diff 3 Months E11. - Type 2 diabetes mellitus with diabetic chronic kidney disease, I15.0 - Renovascular hypertension, N18.30 - Chronic kidney disease, stage 3 unspecified, Z79.4 - intermediate (current) use of insulin, Z94.0 - Kidney transplant status Creatinine 3 Months E11.22 - Type 2 diabetes mellitus with diabetic chronic kidney disease, I15.0 - Renovascular hypertension, N18.30 - Chronic kidney disease, stage 3 unspecified, Z79.4 - intermediate (current) use of insulin, Z94.0 - Kidney transplant status Blood Urea Nitrogen 3 Months E11.22 - Type 2 diabetes mellitus with diabetic chronic kidney disease, I15.0 - Renovascular hypertension, N18.30 - Chronic kidney disease, stage 3 unspecified, Z79.4 - intermediate (current) use of insulin, Z94.0 - Kidney transplant status Other Ref Test - Misc 3 Months E11.22 - Type 2 diabetes mellitus with diabetic chronic kidney disease, I15.0 - Renovascular hypertension, N18.30 - Chronic kidney disease, stage 3 unspecified, Z79.4 - truck terminal manager (current) use of insulin, Z94.0 - Kidney transplant status Electrolytes 3 Months E11.22 - Type 2 diabetes mellitus with diabetic chronic kidney disease, I15.0 - Renovascular hypertension, N18.30 - Chronic kidney disease, stage 3 unspecified, Z79.4 - truck terminal manager (current) use of insulin, Z94.0 - Kidney transplant status Calcium 3 Months E11.22 - Type 2 diabetes mellitus with diabetic chronic kidney disease, I15.0 - Renovascular hypertension, N18.30 - Chronic kidney disease, stage 3 unspecified, Z79.4 - intermediate (current) use of insulin, Z94.0 - Kidney transplant status Phosphorus 3 Months E11. - Type 2 diabetes mellitus with diabetic chronic kidney disease, I15.0 - Renovascular hypertension, N18.30 - Chronic kidney disease, stage 3 unspecified, Z79.4 - truck terminal manager (current) use of insulin, Z94.0 - Kidney transplant status Magnesium 3 Months E11.22 - Type 2 diabetes mellitus with diabetic chronic kidney disease, I15.0 - Renovascular hypertension, N18.30 - Chronic kidney disease, stage 3 unspecified, Z79.4 - truck terminal manager (current) use of insulin, Z94.0 - Kidney transplant status Coding Level of Care Code Est Pt Level 4 (62969) Diagnoses Renovascular hypertension I15.0 Hypertension type: renovascular hypertension Secondary hyperparathyroidism of renal origin N25.81 Type 2 diabetes mellitus with stage 3 chronic kidney disease, with long-term current use of insulin, unspecified whether stage 3a or 3b CKD E11.22; N18.30; Z79.4 Diabetes mellitus fpc insulin use: with fpc use Chronic kidney disease stage: stage 3 (moderate) Chronic kidney disease stage 3 subtype: unspecified whether 3a or 3b Renal transplant recipient Z94.0
== END 2024-04-01 11:59 | disposition home or self-care (01) ==
PROVIDERS: PCP Family Medicine; Visit Provider Internal Medicine Nephrology
DX: I15.0 Renovascular hypertension (principal); N25.81 Secondary hyperparathyroidism of renal origin; E11.22 Type 2 diabetes mellitus with diabetic chronic kidney disease; N18.30 Chronic kidney disease, stage 3 unspecified; Z79.4 Long term (current) use of insulin; Z94.0 Kidney transplant status
CPT/HCPCS: 99214

== ENCOUNTER → 2024-04-01 11:14 | Outpatient (BNVA) | payer OTHER, SELFPAY | PROVIDERS: PCP Family Medicine; Visit Provider Internal Medicine Nephrology | DX: E11.22 Type 2 diabetes mellitus with diabetic chronic kidney disease (principal); N25.81 Secondary hyperparathyroidism of renal origin; I15.0 Renovascular hypertension; N18.30 Chronic kidney disease, stage 3 unspecified; Z79.4 Long term (current) use of insulin; Z94.0 Kidney transplant status | CPT/HCPCS: 99212 ==

== ENCOUNTER 2024-06-24 08:09 | Outpatient (AMB) | payer OTHER, SELFPAY ==
--- OUTSIDE RECORDS SUMMARY | 2024-06-24 08:11 | XMS_ITS ---
Author Organization [facility] Garfield Carmichaelley Address [address] [facility] [place] [address] Care Team Providers Care Pellet Machine Operator Name Role Phone Geovanni Pink MD Primary Care Provider Mary Canela Unavailable [phone] Allergies No Known Allergies REASON FOR VISIT Last PCP visit 08/2023, At Risk Footcare, Possible Infection Medications Medication SIG (Take, Route, Frequency, Duration) Notes Start Date End Date Status Cephalexin 500 MG 1 capsule Orally Twi ce a day for 7 days 04/17/2023 Not-Taking Amoxicillin-Pot Clavulanate 875 875-125 MG one tab Orally every 12 hrs for 10 day(s) 12/04/2022 Not-Taking Mycophenolic Acid 3 tabs Twice day Not-Taking Doxycycline Monohydrate 100 MG 1 capsule Orally Twice a day for 14 days 14 adys Not-Taking Cipro 500 MG 1 tablet Orally ever y 12 hrs for 7 days 04/16/2023 Not-Taking Extra Depth Orthopedic Shoes (1 Pair) with Customized Heat Molded Multidensity Innersoles (3 Pair) as directed Dx: IDDM/Polyneuropathy (E10.42), Hammertoe Foot Deformity (M20.41,M20.42), Preulcerative Skin Lesion(s) (L85.1) Not-Taking Extra Depth Diabetic Shoes with 3 Pair Custom heat-molded multi-density innersoles for 1 year Dx: Not-Taking Aspir-81 once a day Active Extra Depth Orthopedic Shoes (1 Pair) with Customized Heat Molded Multidensity Innersoles (3 Pair) as directed Dx: NIDDM/Polyneuropathy (E11.42), Hammertoe Foot Deformity (M20.41,M20.42), Preulcerative Skin Lesion(s) (L85.1 12/15/2023 Active Antibiotic Chest Not-Takin g amLODIPine Besylate Once a day Active Lantus Active Losartan Potassium 28 untis Once a day Active Rayaldee 30 MCG 1 capsule at bedtime Orally Once a day for 30 day(s) Active Tacrolimus 4tabs Twice a day A ctive metFORMIN HCl Active Social History Tobacco Use: Social History Observation Description Date Details (start date - stop date) Never Smoker NA - NA Tobacco Use/Smoking Question Answer Notes Are you a: nonsmoker Additional Findings: Tobacco Non-User Aggressive non-smoker Alcohol Screen Question Answer Notes Did you have a drink containing alcohol in the p ast year? No Points 0 Interpretation Negative Tobacco use other than smoking: Question Answer Notes Are you an other tobacco user? No Vital Signs Height 5ft 9in in 04/14/2024 Weight 210 lbs 04/14/2024 BMI 31.01 kg/m2 04/14/2024 Encounters Encounter Location Date Provider Diagnosis [facility] [address] 04/14/2024 Mary Rea Type 2 diabetes mellitus with diabetic polyneuropathy E11.42 ; Contracture of toe of left foot M20.5X2 ; Tinea unguium B35.1 and Abscess of toe, left L02.612 Assessments Encounter Date Diagnosis (ICD Code) Assessment Notes Treatment Notes Treatment Clinical Notes Section Notes 04/14/2024 Type 2 diabetes mellitus with diabetic polyneuropathy (ICD-10 - E11.42) 04/14/2024 Contracture of toe of left foot (ICD-10 - M20.5X2) 04/14/2024 Tinea unguium (ICD-10 - B35.1) 04/14/2024 Abscess of toe, left (ICD-10 - L02.612) Patient Educated with: WOUND CARE INSTRUCTIONS. pdf (WOUND CARE INSTRUCTIONS. pdf) Plan Of Treatment Treatment Notes Assessment Notes Abscess of toe, left Patient Educated wi th: WOUND CARE INSTRUCTIONS.pdf (WOUND CARE INSTRUCTIONS.pdf) Next Appt Details Follow Up: 3 Weeks, Reason: Provider Name:Mary vaughan, 07/15/2024 09:00:00 AM, [address] [place], [address], Procedure Notes * Category Sub-Category Detail Notes I&D nail abscess Location TA Procedure Performed incision a nd drainage of Single Abscess with use of sterile nail nipper/316 blade. Approximately ( 0.5 ) cc purulent fluid material was drained. The infected devitalized soft tissue was curettaged to healthy bleeding bed. Any affected nail portion was removed to the eponychium . Any evidence of granuloma was also removed at this time. No underlying bone was visualized. There was minimal bleeding as hemostasis was achieved through the temporary use of either a digital tournaquet or the aforementioned local with epinephrine. An application of sterile Bacitracin dressing was performed. Local wound care instructions were discussed and dispensed. Recommended Tylenol or Motrin for pain/discomfort (83770) , DIABETES: Pt was advised as to the risk of delayed or nonhealing due to diabetes. Pt is to call the office with any questions, concerns, or complications Type Single, Abscess Anesthesia was deferred - NEURO ALAN: patient has medically documented neuropathic condition affecting sensation Keratoma Treatment Parring or Cutting o f Benign Hyperkeratotic Lesion(s) (-57) More than 4 Lesions - The Benign hyperkeratotic lesions, as described above were pared, and/or cut utilizing a sterile 15 blade, tissue nippers, and/or dremel - 28806 Debride Nails 1-5 Procedure: Performance of this nail treatment by a nonprofessional would put this patients foot and overall health at risk. Therefore, nail debridement was performed extensively to reduce/remove overall nail length, girth, thickness, subungual debris, and necrotic tissue, by manual and/or electrical means through the use of a nail nipper and/or dremel-type stand grinder, to a more viable healthy nail plate or bed tissue 1-5. Silver nitrate used for any petechial bleeding as necessary. Definitive antifungal treatment options have been reviewed and discussed with the patient. The patient chooses, no pharmaceutical tx - 69086 Progress Notes * Raheem CASTRODOB:1970 ( 54 yo M)Acc No.[id number]:04/14/2024 Progress Note Patient:?Raheem Castro Provider:?Mary Rea DPM :1970???Age:54 Y???Sex:Male Romeo e:04/14/2024 Address: [address], [id number] Pcp:Geovanni Pink MD Subjective: * Chief Complaints: * ???Last PCP visit t R isk FootcarePossible Infection * HPI: ???At Risk footcare:?Pt States Last PCP Visit:?Date?08/25/2023 ? Pt had right foot hammertoe surgery by [facility] about 2 weeks ago. ???Toe pain:?Nature:?contracture.?Location:?Great toe , Left foot.?Duration:?several months.?Onset/Cause:?gradual; after surgery for infected bone left foot from [facility].? * ROS:?General/Constitutional:?Nausea?denies.?Vomiting?denies.?Hunger Thirst?denies.?Loss appetite?denies.?Chills?denies.?Fatigue?denies.?Fever?denies.?Night Sweats?denies.?Unexplained weight loss?denies.?Unexplained weight gain?denies.?HEENTM:?Dentures?denies.?Dizziness?denies.?Glasses/contacts?admits.?Retinopathy?de nies.?Blurred/double vision?denies.?TMJ?denies.?Discharge/drainage?denies.?Implants?denies.?Sore throat?denies.?Dental implants?denies.?Hard of hearing ?denies.?Difficulty chewing/swallowing/speaking?denies.?Nose bleeds?denies.?Sore mouth?denies.?Respiratory:?On Oxygen?denies.?Pneumonia/pleurisy?denies.?Bronchitis?denies.?Emphysema?denies.?C oughing?denies.?Cough blood?denies.?Shortness of breath?denies.?Wheezing?denies.?Cardiovascular:?Pacemaker?denies.?MVP?denies.?WPW?denies.?CHF?denies.?Heart attack?denies.?Septal defect?denies.?Rapid beat?denies.?Chest pain ?denies.?Atrial Fib.?denies.?Murmur/Palpitations?denies.?Gastrointestinal:?Hemorrhoids?denies.?Stomach/Abdominal pain?denies.?Dark blood stool?denies.?Irritable bowel ?denies.?Constipation?denies.?Diarrhea?denies.?Hematology:?Swelling?denies.?Clots?denies.?Varicose Veins?denies.?Bruising?denies.?Bleeding problem?denies.?Genitourinary:?Blood urine?denies.?Frequent/Painfu/urination/bladder control?denies.?Kidney stones?denies.?Infection (UTI)?denies.?Nephropathy?denies.?sex trans dis (STD)?denies.?Prostate?denies.?Musculoskeletal:?Hammertoes?admits.?Bunions?denies.?Back Pain?denies.?Muscle Cramps/ Resting?denies.?Muscle cramps / walking?denies.?Generalized aches and pains?denies.?Weakness?denies.?Integ.:?Montelongo?denies.?Scars?denies.?Corns/calluses?denies.?Ingrown nails?denies.?Painful nails?denies.?Open Sores?admits.?Rashes?denies.?Neurologic:?Difficulty sleeping?denies.?Brain disorder?denies.?Numbness?denies.?Balance trouble?denies.?Confusion?denies.?Fainting/blackouts?denies.?Tingling?denies.?Tr emors?denies.? * Medical History:? * Surgical History:?kidney tra nsplant 10/2016L leg surgery 09/09/21amputation, toe mputation , toe 04/2023Toe amputation 10/14/23ammertoe, right foot 02/2024 * Hospitalization/Major Diagno stic Procedure:?[facility] - Cut of piece of toe [facility]- Cut of piece of toe 04/2023[facility]- fever- Infection in bone of toe 08/08 * Family History:?Mother: dece ased, diagnosed with Diabetic - NIDDM.?Father: .? * Social History:?Tobacco Use:?Tobacco Use/Smoking?Are you a:?nonsmoker ?Additional Findings: Tobacco Non-User?Aggressive non-smoker ?Tobacco use other than smoking?Are you an other tobacco user??No ???Drugs/Alcohol:?Drugs?Have you used drugs other than those for medical reasons in the past 12 months??No ?Alcohol Screen?Did you have a drink containing alcohol in the past year??No ?Points?0 ?Interpretation?Negative ???Miscellaneous:?Caffeine: yes, frequency: Very Occassionally soda. ?Children: yes, 1. ?Exercise: yes, occasional, walking. ?Marital status: . 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 * Medications:?TakingmetFORMIN HCl amLODIPine Besylate Once a dayLantus Losartan Potassium 28 untis Once a dayRayaldee 30 MCG Capsule Extended Release 1 capsule at bedtime Orally Once a dayTacrolimus 4tabs Twice a dayAspir-81 once a dayExtra Depth Orthopedic Shoes (1 Pair) with Customized Heat Molded Multidensity Innersoles (3 Pair) as directed Dx: NIDDM/Polyneuropathy (E11.42), Hammertoe Foot Deformity (M20.41,M20.42), Preulcerative Skin Lesion(s) (L85.1Taking metFORMIN HCl Taking amLODIPine Besylate Once a dayTaking Lantus Taking Losartan Potassium 28 untis Once a dayTaking Rayaldee 30 MCG Capsule Extended Release 1 capsule at bedtime Orally Once a dayTaking Tacrolimus 4tabs Twice a dayTaking Aspir-81 once a dayTaking Extra Depth Orthopedic Shoes (1 Pair) with Customized Heat Molded Multidensity Innersoles (3 Pair) as directed Dx: NIDDM/Polyneuropathy (E11.42), Hammertoe Foot Deformity (M20.41,M20.42), Preulcerative Skin Lesion(s) (L85.1Not-Taking/PRNAntibiotic , Notes: ChestExtra Depth Orthopedic Shoes (1 Pair) with Customized Heat Molded Multidensity Innersoles (3 Pair) as directed Dx: IDDM/Polyneuropathy (E10.42), Hammertoe Foot Deformity (M20.41,M20.42), Preulcerative Skin Lesion(s) (L85.1)Extra Depth Diabetic Shoes with 3 Pair Custom heat-molded multi-density innersoles for 1 year Dx:Cipro 500 MG Tablet 1 tablet Orally every 12 hrsCephalexin 500 MG Capsule 1 capsule Orally Twice a dayAmoxicillin-Pot Clavulanate 875 875-125 MG Tablet one tab Orally every 12 hrsMycophenolic Acid 3 tabs Twice dayDoxycycline Monohydrate 100 MG Capsule 1 capsule Orally Twice a day, Notes: 14 adysMedication List reviewed and reconciled with the patientNot-Taking/PRN Antibiotic , Notes: ChestNot-Taking/PRN Extra Depth Orthopedic Shoes (1 Pair) with Customized Heat Molded Multidensity Innersoles (3 Pair) as directed Dx: IDDM/Polyneuropathy (E10.42), Hammertoe Foot Deformity (M20.41,M20.42), Preulcerative Skin Lesion(s) (L85.1)Not-Taking/PRN Extra Depth Diabetic Shoes with 3 Pair Custom heat-molded multi-density innersoles for 1 year Dx:Not-Taking/PRN Cipro 500 MG Tablet 1 tablet Orally every 12 hrsNot-Taking/PRN Cephalexin 500 MG Capsule 1 capsule Orally Twice a dayNot-Taking/PRN Amoxicillin-Pot Clavulanate 875 875-125 MG Tablet one tab Orally every 12 hrsNot-Taking/PRN Mycophenolic Acid 3 tabs Twice dayNot-Taking/PRN Doxycycline Monohydrate 100 MG Capsule 1 capsule Orally Twice a day, Notes: 14 adysMedication List reviewed and reconciled with the patient * Allergies:?N.K.D.A.yes[Aller gies Verified] Objective: * Vitals:?Ht: 5ft 9in, Wt:210, BMI:31.01, Shoe size: 11, BS: 143, Ht-cm: 175.26 cm, Wt-k.25 kg. * ???Past Orders: ???Lab:HEMOGLOBIN A1C (GLYCO HEMOGLOBIN) (Order Date - 09/01/2023) (Collection Date - 09/01/2023) ? Value Reference Range ?TOTAL HEMOGLOBIN (HGBA1C) 7.3 * Examination: ???Ophthalmology Referral: ?DIABETES EYE EXAM?Neurological: ?SENSORY:?Neurological exam demonstrates, reduced light touch sensation, reduced sharp/dull discrimination , reduced vibration sensation, in a stocking fashion, B/L, 5.07 monofilament test performed at plantar aspects of 5 varied sites per foot shows sensation, reduced, B/L.?Nails: ?NAILS are:?Elongated, overgrown, dystrophic, lytic, greater than 3mm thick, discolored and friable with crumbly malodorous subungual debris , with dull to no pain on palpation due to neuropathy , TA , T3 , T4.?Dermatologic: ?SKIN FINDINGS:?Skin exam reveals Keratotic lesion(s) located at , TA , T3 , T4; surgical bandage right foot.?Orthopedic: ?MUSCLE STRENGTH:?5/5 all groups in a symmetrical fashion, B/L.?BUNION:?dorsal contraction 1st MPJ left incompletely reducible.?General Examination: ?GENERAL APPEARANCE:?Reveals a pleasant, alert, well nourished, well- developed, well hydrated individual, who demonstrates proper attention to hygiene/body habitus, and is in no acute distress, Pt serves as own historian for office visit today , Denies fever, chills, malaise, lymphadenopathy.?ORIENTED:?person, place, and time.?Abscess/infected nail: ?INSPECTION?Reveals inflammation, malodor, localized cellulitis, and purulent abscess with pre-operative size of approximately ( 4) mm square without exposed bone distal nail fold TA.? Assessment: * Assessment: 1.?Type 2 diabetes mellitus with diabetic polyneuropathy - E11.42?2.?Contracture of toe of left foot - M20.5X2 (Primary)?3.?Tinea unguium - B35.1?4.?Abscess of toe, left - L02.612? Plan: * Treatment: * Procedures:?Debride Nails 1-5:?Procedure:?Performance of this nail treatment by a nonprofessional would put this patients foot and overall health at risk. Therefore, nail debridement was performed extensively to reduce/remove overall nail length, girth, thickness, subungual debris, and necrotic tissue, by manual and/or electrical means through the use of a nail nipper and/or dremel-type stand grinder, to a more viable healthy nail plate or bed tissue 1-5. Silver nitrate used for any petechial bleeding as necessary. Definitive antifungal treatment options have been reviewed and discussed with the patient. The patient chooses, no pharmaceutical tx - 39086.?I&D nail abscess:?Type?Single, Abscess.?Anesthesia?was deferred - NEUROPATHY: patient has medically documented neuropathic condition affecting sensation.?Location?TA.?Procedure?Performed incision and drainage of Single Abscess with use of sterile nail nipper/316 blade. Approximately ( 0.5 ) cc purulent fluid material was drained. The infected devitalized soft tissue was curettaged to healthy bleeding bed. Any affected nail portion was removed to the eponychium . Any evidence of granuloma was also removed at this time. No underlying bone was visualized. There was minimal bleeding as hemostasis was achieved through the temporary use of either a digital tournaquet or the aforementioned local with epinephrine. An application of sterile Bacitracin dressing was performed. Local wound care instructions were discussed and dispensed. Recommended Tylenol or Motrin for pain/discomfort (94138) , DIABETES: Pt was advised as to the risk of delayed or nonhealing due to diabetes. Pt is to call the office with any questions, concerns, or complications.?Keratoma Treatment:?Parring or Cutting of Benign Hyperkeratotic Lesion(s)?(-57) More than 4 Lesions - The Benign hyperkeratotic lesions, as described above were pared, and/or cut utilizing a sterile 15 blade, tissue nippers, and/or dremel - 90384.? * Procedure Codes:?44863 DRAIN AGE OF SKIN ABSCESS, Modifiers: XS 77610 DEBRIDE NAIL, 1-5, Modifiers: XS 11492 TRIM SKIN LESIONS, OVER 4, Modifiers: XS * Preventive Medicine:? ??Counseling:?Discussion:?-14: Office or other outpatient visit for the evaluation and management of an established patient, which required a medically appropriate history and/or examination and MODERATE level of DECISION MAKING for: 1 OR MORE CHRONIC PROBLEM(S) THATS WORSENING, 2 STABLE CHRONIC PROBLEMS, A NEWLY DIAGNOSED PROBLEM WITH UNCERTAIN PROGNOSIS, AN ACUTE COMPLICATED INJURY WITH MULTIPLE TREATMENT OPTIONS, OR AN ACUTE PROBLEM WITH ACCOMPANYING SYSTEMIC SYMPTOMS, THAT POSE(S) A MODERATE RISK OF MORBIDITY. THIS CONDITION MAY ALSO INCLUDE RX DRUG MANAGEMENT, OR A DECISON FOR MINOR SURGERY. The visit on the day of the encounter encompassed interpreting the data and educating the patient as to the nature of their condition, treatment options available according to their individual PMH, meds, allergies, and overall health/living conditions, as well as any potential risks or complications that may occur from a failure to adhere to, and participate in, the recommended course of therapy. The discussion included a complete verbal, and/or written explanation of the examination results, any x-rays taken, the proposed diagnosis, and outline of the treatment plan. A schedule for future care needs was also explained. The patient verbalized an understanding of the instructions at this time and agreed to be an active participant in their treatment. If the patient should think of any questions or concerns after the visit, I have encouraged the patient to call the office.?Consult:?The patient was counseled on the diagnosis, treatment options, and the need for a, Orthopedic Consult for discussion of contracture left 1st MPJ.?Shoe Gear Counseling:?The patient and I reviewed the types of shoes they should be wearing. My recommendation included obtaining a well-fitted shoe with a good supportive, non-foldable nor twistable sole, plenty of toe/room for the forefoot, and proper arch support. Based on todays examination, I recommended the patient look for new shoes, by having their feet professionally measured. We discussed that generally the best time of the day for a shoe fitting is the afternoon. Different shoes types and brands to best match the patients occupation and vocation were discussed. Specific brand selection will be up to the patient, their individual foot condition/deformities, and fit. The patient and I reviewed the standard new shoe break in period by wearing them for a few hours a day while checking for redness or sores as wear time is increased. The patient verbally confirmed to understanding the information discussed.? * Follow Up:?3 Weeks * Images: * Sign off status: Completed true * Provider:?Mary Rea DPM Date:? Generated for Deedee huerta/Mike/Mirianitting on:?06/24/2024 08:11 AM EST History and Physical Notes * HPI (History of Present Illness) Category Sub-Category Detail Notes Category Not es Toe pain Nature: contracture Location: Great toe , Left alice t Duration: several months Onset/Cause: gradual; after surge ry for infected bone left foot from [facility] At Risk footcare Pt States Last PCP Visit: Date: 08/25/2023 Pt had right foot hammertoe surgery by [facility] about 2 weeks ago Examination Category Sub-Category Detail Notes Category Not es Neurological SENSORY: Neurological exa m demonstrates, reduced light touch sensation, reduced sharp/dull discrimination , reduced vibration sensation, in a stocking fashion, B/L, 5.07 monofilament test performed at plantar aspects of 5 varied sites per foot shows sensation, reduced, B/L Dermatologic SKIN FINDINGS: Skin exam reveal s Keratotic lesion(s) located at , TA , T3 , T4; surgical bandage right foot Orthopedic BUNION: dorsal contracti on 1st MPJ left incompletely reducible MUSCLE STRENGTH: 5/5 all groups in a symmetrical fashion, B/L General Examination GENERAL APPEARANCE: Reveals a pleasant, alert, well nourished, well-developed, well hydrated individual, who demonstrates proper attention to hygiene/body habitus, and is in no acute distress, Pt serves as own historian for office visit today , Denies fever, chills, malaise, lymphadenopathy ORIENTED: person, place, and t jose enrique Ophthalmology Referral DIABETES EYE EXAM Procedure Perform ed:: Yes Diabetic Retinopathy Screening:: Yes Findings of Diabetic Eye Exam:: retinopa thy Nails NAILS are: Elongated, overg rown, dystrophic, lytic, greater than 3mm thick, discolored and friable with crumbly malodorous subungual debris , with dull to no pain on palpation due to neuropathy , TA , T3 , T4 Abscess/infected nail INSPECTION Reveals in flammation, malodor, localized cellulitis, and purulent abscess with pre-operative size of approximately ( 4) mm square without exposed bone distal nail fold TA
--- OUTSIDE RECORDS SUMMARY | 2024-06-24 08:11 | XMS_ITS ---
Author Organization [facility] Address [address] [place] [address] Care Team Providers Care Incubator Machine Operator Name Role Phone Geovanni Pink MD Primary Care Provider Mary Canela [phone] Encounters Encounter Location Date Provider Diagnosis [address] [address] 03/08/2024 Mary Rea Plan Of Treatment Next Appt Details Provider Name:Mary vaughan, 07/15/2024 09:00:00 AM, [address] [place], [address], Progress Notes * Raheem CASTRODOB:1970 ( 54 yo M)Acc No.[id number]:03/08/2024 Progress Note Patient:?GRZEGORZ Raheem Provider:?Mary Rea DPM :1970???Age:53 Y???Sex:Male Romeo e:03/08/2024 Address:[address] [place] [address], [id number] Pcp:Geovanni Pink MD Subjective: * Chief Complaints: * ??? * Medical History:? Objective: * Vitals:? Assessment: Plan: * Treatment: * Images: * The named appointment provid er may or may not be the originator of this progress note, and it is not deemed complete until electronically signed by the appointment provider. Sign off status: Pending * Provider:?Mary Rea DPM Date:? Generated for Deedee huerta/Mike/Ric on:?06/24/2024 08:11 AM EST
--- OUTSIDE RECORDS SUMMARY | 2024-06-24 08:12 | XMS_ITS | Patient Health Record ---
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 Name Role Phone Geovanni Pink MD Primary Care Provider Mary Canela Unavailable [phone] Rajesh Oreilly Unavailable [phone] Allergies No Known Allergies Results Component Value Reference Range Notes HEMOGLOBIN A1C (GLYCOHEMOGLO BIN) Reviewed date:09/15/2023 09:16:35 AM Interpretation: Performing Lab: Notes/Report: TOTAL HEMOGLOBIN (HGBA1C) 7.3 Reason For Referral No Information Medications Medication SIG (Take, Route, Frequency, Duration) Notes Start Date End Date Status Rayaldee 30 MCG 1 capsule at bedtime Orally Once a day for 30 day(s) Active Doxycycline Monohydrate 100 MG 1 capsule Orally Twice a day for 14 days 14 adys Not-Taking Losartan Potassium 28 untis Once a day Active Mycophenolic Acid 3 tabs Twice day Not-Taking Aspir-81 once a day Active Tacrolimus 4tabs Twice a day A ctive metFORMIN HCl Active Cipro 500 MG 1 tablet Orally ever y 12 hrs for 7 days 04/16/2023 Not-Taking Extra Depth Diabetic Shoes with 3 Pair Custom heat-molded multi-density innersoles for 1 year Dx: Not-Taking Lantus Active Amoxicillin-Pot Clavulanate 875 875-125 MG one tab Orally every 12 hrs for 10 day(s) 12/04/2022 Not-Taking amLODIPine Besylate Once a day Active Cephalexin 500 MG 1 capsule Orally Twi ce a day for 7 days 04/17/2023 Not-Taking Extra Depth Orthopedic Shoes (1 Pair) with Customized Heat Molded Multidensity Innersoles (3 Pair) as directed Dx: IDDM/Polyneuropathy (E10.42), Hammertoe Foot Deformity (M20.41,M20.42), Preulcerative Skin Lesion(s) (L85.1) Not-Taking Antibiotic Chest Not-Takin g Extra Depth Orthopedic Shoes (1 Pair) with Customized Heat Molded Multidensity Innersoles (3 Pair) as directed Dx: NIDDM/Polyneuropathy (E11.42), Hammertoe Foot Deformity (M20.41,M20.42), Preulcerative Skin Lesion(s) (L85.1 12/15/2023 Active Immunizations Vaccine Route Administration Date Status Comme nts Influenza Unknown 2020 Refused Influenza Unknown 09/15/2023 Refused Social History Tobacco Use: Social History Observation [...] Are you an other tobacco user? No Problems Problem Type SNOMED Code ICD Code Onset Dates Problem Status W/U Status Risk Notes Problem Acquired hammer toe of right foot (7767513662245750) Other hammer toe(s) (acquired), right foot (M20.41) Active confirmed Problem Acquired hammer toe of left foot (6088022218594022) Other hammer toe(s) (acquired), left foot (M20.42) Active confirmed Problem Non-pressure chronic ulcer of other part of right foot with fat layer exposed (L97.512) Active confirmed Problem Chronic ulcer of foot (642791282) Non-pressure chronic ulcer of other part of left foot with fat layer exposed (L97.522) Active confirmed Problem Acquired hammer toe of right foot (3383916919016234) Other hammer toe(s) (acquired), right foot (M20.41) Active confirmed Problem Acquired hammer toe of left foot (5140169806703706) Other hammer toe(s) (acquired), left foot (M20.42) Active confirmed Problem Polyneuropathy due to type 2 diabetes mellitus (924135063) Type 2 diabetes mellitus with diabetic polyneuropathy (E11.42) Active confirmed Problem Polyneuropathy due to diabetes mellitus type I (442091086) Type 1 diabetes mellitus with diabetic polyneuropathy (E10.42) Active confirmed Problem 939055510 Hammer toe of right foot (M20.41) Active confirmed Problem 363007118 Hammer toe of left foot (M20.42) Active confirmed Problem 5963683760007575 Osteomyelitis o f foot, left, acute (M86.172) Active confirmed Problem 12928717 Non-pressure ulcer of left lower extremity with fat layer exposed (L97.922) Active confirmed Problem 64083160690492078 Atherosclerosi s of artery of both lower extremities (I70.203) Active confirmed Problem Neuropathic ulce r of right foot with fat layer exposed (L97.512) Active confirmed Response to treatment Problem 5896270789823215 Acute hematogenous osteomyelitis of left foot (M86.072) Active confirmed Problem Skin ulcer of to e of left foot with fat layer exposed (L97.522) Active confirmed Response to treatment, Nonapplica ble Problem 15405463108960270 Neuropathic ul cer of left foot, limited to breakdown of skin (L97.521) Active confirmed Vital Signs Blood pressure diastolic 63 mm Hg 05/04/2024 Height 5ft9in in 05/04/2024 Blood pressure systolic 163 mm Hg 05/04/2024 Weight 210 lbs 05/04/2024 BMI 31.01 kg/m2 05/04/2024 Procedures Procedure Date Ordered Date Performed Result Body Sit e 02156-UZIXIVL SKIN/TISSUE 02/11/2024 N/A Encounters Encounter Location Date Provider Diagnosis [facility] [address] 07/08/2023 Mary Rea Neuropathic ulcer of right foot with fat layer exposed L97.512 ; Other hammer toe(s) (acquired), right foot M20.41 ; Type 1 diabetes mellitus with diabetic polyneuropathy E10.42 ; Tinea unguium B35.1 and Atherosclerosis of artery of both lower extremities I70.203 [facility] [address] 09/15/2023 Mary Rea Other hammer toe(s) (acquired), right foot M20.41 ; Acute osteomyelitis of toe, right M86.171 ; Neuropathic ulcer of right foot with fat layer exposed L97.512 ; Type 1 diabetes mellitus with diabetic polyneuropathy E10.42 ; Tinea unguium B35.1 and Atherosclerosis of artery of both lower extremities I70.[address] [address] 12/15/2023 Mary Rea Type 1 diabetes mellitus with diabetic polyneuropathy E10.42 ; Other hammer toe(s) (acquired), right foot M20.41 ; Tinea unguium B35.1 ; Atherosclerosis of artery of both lower extremities I70.203 ; Other hammer toe(s) (acquired), left foot M20.42 and Ingrown nail L60.[address] [address] 02/11/2024 Rajesh Oreilly Skin ulcer of toe of left foot with fat layer exposed L97.522 and Type 1 diabetes mellitus with diabetic polyneuropathy E10.[address] [address] 04/14/2024 Mary Rea Type 2 diabetes mellitus with diabetic polyneuropathy E11.42 ; Contracture of toe of left foot M20.5X2 ; Tinea unguium B35.1 and Abscess of toe, left L02.[address] [address] 05/04/2024 Mary Rea Type 2 diabetes mellitus with diabetic polyneuropathy E11.42 ; Contracture of toe of left foot M20.5X2 ; Tinea unguium B35.1 and Neuropathic ulcer of left foot, limited to breakdown of skin L97.[address] [address] 11/24/2023 Mary Rea [address] [address] 11/27/2023 Mary Rea [address] [address] 02/11/2024 [facility] [address] [place] [address] 03/07/2024 Mary Rea Assessments Encounter Date Diagnosis (ICD Code) Assessment Notes Treatment Notes Treatment Clinical Notes Section Notes 07/08/2023 Other hammer toe(s) (acquired), right foot (ICD-10 - M20.41) 07/08/2023 Neuropathic ulcer of right foot with fat layer exposed (ICD-10 - L97.512) Response to treatment Patient Educated with: WOUND CARE INSTRUCTIONS. pdf (WOUND CARE INSTRUCTIONS. pdf) 09/15/2023 Other hammer toe(s) (acquired), right foot (ICD-10 - M20.41) 09/15/2023 Acute osteomyelitis of toe, right (ICD-10 - M86.171) 12/15/2023 Other hammer toe(s) (acquired), right foot (ICD-10 - M20.41) Patient Educated with: DIABETIC FOOT CARE INSTRUCTIONS. pdf (DIABETIC FOOT CARE INSTRUCTIONS. pdf) 12/15/2023 Type 1 diabetes mellitus with diabetic polyneuropathy (ICD-10 - E10.42) 02/11/2024 Type 1 diabetes mellitus with diabetic polyneuropathy (ICD-10 - E10.42) 02/11/2024 Skin ulcer of toe of left foot with fat layer exposed (ICD-10 - L97.522) Response to treatment,Clementine pplicable Patient Educated with: WOUND CARE INSTRUCTIONS. pdf (WOUND CARE INSTRUCTIONS. pdf) 04/14/2024 Type 2 diabetes mellitus with diabetic polyneuropathy (ICD-10 - E11.42) 04/14/2024 Contracture of toe of left foot (ICD-10 - M20.5X2) 05/04/2024 Type 2 diabetes mellitus with diabetic polyneuropathy (ICD-10 - E11.42) 05/04/2024 Contracture of toe of left foot (ICD-10 - M20.5X2) 05/04/2024 Tinea unguium (ICD-10 - B35.1) 04/14/2024 Tinea unguium (ICD-10 - B35.1) 09/15/2023 Neuropathic ulcer of right foot with fat layer exposed (ICD-10 - L97.512) Response to treatment Patient Educated with: WOUND CARE INSTRUCTIONS. pdf (WOUND CARE INSTRUCTIONS. pdf) 12/15/2023 Tinea unguium (ICD-10 - B35.1) 07/08/2023 Type 1 diabetes mellitus with diabetic polyneuropathy (ICD-10 - E10.42) 09/15/2023 Type 1 diabetes mellitus with diabetic polyneuropathy (ICD-10 - E10.42) 07/08/2023 Tinea unguium (ICD-10 - B35.1) 04/14/2024 Abscess of toe, left (ICD-10 - L02.612) Patient Educated with: WOUND CARE INSTRUCTIONS. pdf (WOUND CARE INSTRUCTIONS. pdf) 05/04/2024 Neuropathic ulcer of left foot, limited to breakdown of skin (ICD-10 - L97.521) 12/15/2023 Atherosclerosis of artery of both lower extremities (ICD-10 - I70.203) 09/15/2023 Tinea unguium (ICD-10 - B35.1) 12/15/2023 Other hammer toe(s) (acquired), left foot (ICD-10 - M20.42) 07/08/2023 Atherosclerosis of artery of both lower extremities (ICD-10 - I70.203) 09/15/2023 Atherosclerosis of artery of both lower extremities (ICD-10 - I70.203) 12/15/2023 Ingrown nail (ICD-10 - L60.0) 12/15/2023 Other 02/11/2024 Other 05/04/2024 Other Plan Of Treatment Pending Test Test Name Order Date X ray : Foot, left 3V 2020 X ray : Foot, left 3V 08/16/2021 X ray : Foot, left 3V 12/11/2022 X ray : Foot, left 3V 02/11/2024 18095-UQBMUNX NAIL, 6 OR MORE 09/16/2021 32346-VXSAZOS SKIN/TISSUE 10/25/2021 98585-QCEMXWG SKIN/TISSUE 12/04/2022 44090-WQTRCCA SKIN/TISSUE 12/11/2022 27646-OBEULOR SKIN/TISSUE 09/16/2021 92540-BBTXEMY SKIN/TISSUE 2020 08836-RDFILGS SKIN/TISSUE 02/11/2024 10223-CWJJ SKIN LESIONS, OVER 4 11/28/19 42028-LFHB SKIN LESIONS, OVER 4 09/17/19 22 35185-VMEPQIZF OF HEMATOMA/FLUID 023 Next Appt Details Provider Name:Mary Vaughan Chauncey vaughan, 07/15/2024 09:00:00 AM, [address] [place], [address], Insurance Providers Payer Name Payer Address Payer Phone Subscriber Number Group Number Insured Name Patient Relationship to Insured Coverage Start Date Coverage End Date [facility] [employer] Claims [address] [place] [id number] Raheem Castro Self - patient is the insured Medical (General) History Medical History History ICD Code Kidney disease type II diabetes Surgical History Surgery Date(Month/Year) kidney transplant 10/2016 L leg surgery 09/09/21 amputation, toe 01/2023 amputation , toe 04/2023 Toe amputation 10/14/23 hammertoe, right foot 02/2024 Hospital[place] History Reason Date(Month/[place] [facility] [place]- [place] bone of toe [facility]- [place] piece of toe [place]2023 [facility] [place]23
--- NOTE | 2024-06-24 08:29 | MHC.PC.OV ---
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 Prior A1c 11/04/23 7.4%. A1c today 06/24/24 is 7.3%. Nephrology had recommended farxiga and pt notes he continues to take this. Continues to f/u with nephrology for secondary hyperparathyroidism of renal origin. Eye exam 03/31/24. R eye show proliferative diabetic retinopathy R eye, no pathology L eye. Blood pressure today 142/79, 67p. He is on amlodipine 5mg daily. HPI Comments History of Present Illness Details Documentation assistance for Geovanni Pink MD, was provided by Shukri Robertson,? Compliance Representative Dealer on 06/24/2024 at 8:58 AM EST. I, Dr. Pink, have read, observed, and verified documentation. ?? [facility] Medical History HTN (hypertension) PAD (peripheral artery disease) CKD (chronic kidney disease) stage 3, GFR 30-59 ml/min MSSA bacteremia Osteomyelitis of third toe of left foot S/P angiogram of extremity (10/08/22) Diabetic ulcer of right foot Osteomyelitis Wound of right foot Chronic right shoulder pain Multinodular goiter Testicular cancer Bleeding internal hemorrhoids Seminoma Paresthesia and pain of extremity Type 2 diabetes mellitus with hyperglycemia, with long-term current use of insulin Type 2 diabetes mellitus with chronic kidney disease Hyperlipidemia Vaccination refused by patient Refused pneumococcal vaccination Anemia in stage 4 chronic kidney disease Acute proliferative glomerulonephritis Secondary hyperparathyroidism of renal origin Mixed dyslipidemia Peripheral vascular disease Carpal tunnel syndrome on left Diabetes mellitus with diabetic nephropathy, with long-term current use of insulin Osteomyelitis of left foot Diabetes mellitus with foot ulcer End-stage renal disease on hemodialysis Surgical History Renal transplant recipient History of amputation (01/19/23) Amputated toe of right foot (10/13/22) History of kidney transplant Kidney transplant recipient Family History Father Unknown family medical history Mother Diabetes mellitus HTN (hypertension) CVD (cardiovascular disease) History of CVA (cerebrovascular accident) Stroke Sister Diabetes mellitus Daughter No problems noted. Sister No problems noted. Sister No problems noted. Social History Household Members: Family Housing: House Do you presently have visiting nurse or other home services: No Alcohol intake: never Patient Tobacco Use Status: Never used Tobacco e-Cigarette/Vaping Use: Never Used Advance Directives Date on File: 01/16/23 service: No Current occupational status: disabled Current occupation: disability - kidney transplant. Left side dominant Cognitive needs: No Hearing needs: No Vision needs: No Questionnaire PHQ-9 Over the last 2 weeks, how often have you been bothered by any of the following problems? 1. Little interest or pleasure in doing things: not at all 2. Feeling down, depressed, or hopeless: not at all 3. Trouble falling or staying asleep, or sleeping too much: not at all 4. Feeling tired or having little energy: not at all 5. Poor appetite or overeating: not at all 6. Feeling bad about yourself - or that you are a failure or have let yourself or your family down: not at all 7. Trouble concentrating on things, such as reading the newspaper or watching television: not at all 8. Moving or speaking so slowly that other people could have noticed. Or the opposite - being so fidgety or restless that you have been moving around a lot more than usual: not at all 9. Thoughts that you would be better off or of hurting yourself in some way: not at all Total score: 0 43034 - PHQ-9 Billing: Yes Source: Developed by Drs. Joey Day, Martine Olea, Felipe Robles and colleagues, with an educational marium from [employer]. Thrive Questionnaire Date Thrive assessed: 06/24/24 I am a: Patient What is your living situation today?: I have a steady place to live Within the past 12 months, did the food you bought not last and you didn't have the money to get more?: I choose not to answer this question Within the past 12 months, did you worry whether your food would run out before you got money to buy more?: I choose not to answer this question Do you have trouble paying for medicines?: No Do you have trouble getting transportation to medical appointments?: No Do you have trouble paying your heating and electricity bill?: No Do you have trouble taking care of your child, family member or friend?: No Do you have trouble with day-to-day activities such as bathing, preparing meals, shopping, managing finances, etc.?: No Are you currently unemployed and looking for a job?: Yes Are you interested in more education?: No Please select the resources that you would like help with: None Currently or been in a relationship where the following occur: No concerns reported THRIVE Score: 0 AUDIT C Alcohol Use Questionnaire (AUDIT-C) 1. How often do you have a drink containing alcohol?: Never Total Score: 0 BRIANNA-7 AMB Questionnaire BRIANNA-7 Date BRIANNA - 7 assessed: 06/24/24 Feeling nervous, anxious, or on edge: 0 = Not at all Not being able to stop or control worryin = Not at all Worrying too much about different things: 0 = Not at all Trouble relaxin = Not at all Being so restless that it is hard to sit still: 0 = Not at all Becoming easily annoyed or irritable: 0 = Not at all Feeling afraid as if something awful might happen: 0 = Not at all Total BRIANNA-7 score (0-4 normal; 5-9 mild; 10-14 moderate; 15-21 severe): 0 Source: Developed by Drs. Joey Day, Martine Olea, Felipe Robles and colleagues, with an educational marium from [employer]. BRIANNA-7 Assessment Billing BRIANNA-7 Assessment Tool: BRIANNA-7 Assessment 35596 Review of Systems Const Denies chills, Denies fatigue, Denies fever(s), Denies headache(s) and Denies weakness ENT Denies dizziness and Denies headache(s) Card Denies dyspnea Resp Denies cough, Denies dyspnea, Denies wheezing and Denies other (shortness of breath) Musc Denies numbness and Denies tingling Neuro Denies dizziness, Denies headache(s), Denies numbness, Denies tingling and Denies weakness Psych Denies anxiety and Denies depression Endo Denies fatigue Aller/Immun Denies wheezing Physical exam (Primary Care) Vital Signs: Last Vital Signs Temp 97.8 F 06/24/24 08:31 Pulse 67 06/24/24 08:31 Resp 14 06/24/24 08:31 BP 142/79 H 06/24/24 08:31 Pulse Ox 100 06/24/24 08:31 Oxygen Delivery Method Room Air 06/24/24 08:31 BMI result Body Mass Index 34.7 Tobacco/Smoking Status: Tobacco use Status Tobacco use date assessed 11/04/23 06/24/24 08:34 Patient Tobacco Use Status Never used Tobacco 06/24/24 08:34 e-Cigarette/Vaping Use Never Used 06/24/24 08:34 PHQ-9: PHQ-9 Score PHQ-9: Total score 0 06/24/24 08:57 Thrive Assessment: Date of Thrive Assessment Date Thrive assessed 06/24/24 06/24/24 08:34 Currently or been in a relationship where the following occur: No concerns reported Const General: well developed; No acute distress Nutritional Appearance: well nourished Orientation/consciousness: patient oriented x3 HENMT Head: Yes normocephalic and Yes atraumatic Eyes General: appearance normal, both eyes and all related structures Pupils: Equal, round and reactive pupils present EOM: EOMs intact bilaterally Resp Effort & Inspection: normal respiratory effort Neuro General: patient oriented x3 and gait normal Cranial nerves: Yes Equal, round and reactive pupils present Psych Affect: normal affect Results AMB Hemoglobin A1c AMB Hemoglobin A1c 7.3 % Last Edit by Donell Crocker CMA on 06/24/24 09:02 Coding Level of Care Code Est Pt Level 3 (37076) Diagnoses Renovascular hypertension I15.0 Hypertension type: renovascular hypertension Type 2 diabetes mellitus with diabetic nephropathy, with long-term current use of insulin E11.21; Z79.4 Diabetes mellitus type: type 2 Additional Codes BRIANNA-7 Assessment Billing - BRIANNA-7 Assessment Tool: BRIANNA-7 Assessment 24757 ([id number]) PHQ-9 - 61865 - PHQ-9 Billing: Yes ([id number]) Assessment & Plan Assessment & Plan (1) HTN (hypertension): Code(s): I10 - Essential (primary) hypertension Category: Medical Qualifiers: Hypertension type: renovascular hypertension Qualified Code(s): I15.0 - Renovascular hypertension Plan: Blood?pressure?is?high?today.??Goal?is?less?than?140/90 Blood?pressures?are?generally?well?controlled?lately. Will?have?him?return?next?week?for?a?nurse?visit?to?recheck?blood?pressure.??If?still?elevated,?we?can?increase?his?amlodipine. For?now,?medication?for?blood?pressure (2) Diabetes mellitus with diabetic nephropathy, with long-term current use of insulin: Code(s): E11.21 - Type 2 diabetes mellitus with diabetic nephropathy; Z79.4 - [facility] (current) use of insulin Category: Medical Qualifiers: Diabetes mellitus type: type 2 Qualified Code(s): E11.21 - Type 2 diabetes mellitus with diabetic nephropathy; Z79.4 - intermediate designer (current) use of insulin Plan: A1c?7.3%,?down?from?7.4%?at?my?last?visit. ?Goal?is?less?than?7.0%. He?is?taking?basal?and?prandial?insulins?as?prescribed.??His?NovoLog?was?increased?slightly?at?last?visit. 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 I?am?increasing?Farxiga?from?5?mg?daily?to?10?mg?daily?today Recent?eye?exam?shows?proliferative?diabetic?retinopathy?in?left?eye.??No?diabetic?retinopathy?right?eye Discussed?tight?blood?sugar?control. Orders: Orders AMB Hemoglobin A1c Today Z13.9 - Encounter for screening, unspecified Medications: New alcohol swabs (Alcohol Prep Pads) 1 pad topical .4 times a day 90 days 400 ea 2RF E11.21 - Type 2 diabetes mellitus with diabetic nephropathy, Z79.4 - [facility] (current) use of insulin Changed From dapagliflozin propanediol (Farxiga) 5 mg PO QAM 90 days 90 tabs 2RF To dapagliflozin propanediol 10 mg PO QAM 90 days 90 tabs 2RF Refilled insulin aspart U-100 (Novolog FlexPen U-100 Insulin aspart) 5 units (0.05 mL) subcut TIDAC 30 days 6 mL 4RF
[2024-06-24 08:31] VITALS: BP 142/79; PULSE 67; RESP 14; TEMP 36.6; O2SAT 100; BMI 34.7
== END 2024-06-24 09:13 | disposition home or self-care (01) ==
PROVIDERS: PCP Family Medicine; Visit Provider Family Medicine
DX: I10 Essential (primary) hypertension (principal); E11.21 Type 2 diabetes mellitus with diabetic nephropathy; Z79.4 Long term (current) use of insulin

== ENCOUNTER → 2024-06-24 08:09 | Outpatient (BNVA) | payer OTHER, SELFPAY | PROVIDERS: PCP Family Medicine; Visit Provider Family Medicine | DX: I15.0 Renovascular hypertension (principal); E11.21 Type 2 diabetes mellitus with diabetic nephropathy; Z79.4 Long term (current) use of insulin | CPT/HCPCS: 83036; 96127; 99212 ==

== ENCOUNTER 2024-07-14 07:22 | Outpatient (REF) | payer OTHER, SELFPAY ==
[2024-07-14 07:41] LABS: MANUAL DIFF FLAG NO
[2024-07-14 07:52] LABS: Basophils Percent Auto 0.4 % (0-2); Eosinophils Absolute Auto 0.1 X10*3/uL (0.0-0.4); Eosinophils Percent Auto 1.4 % (0-4); Hematocrit 49.4 % (42.0-52.0); Hemoglobin 15.8 g/dl (14.0-18.0); Imm Gran Abs Auto 0.09 X10*3/uL (0.00-0.03); Imm Gran Pct Auto 1.2 % (0.0-0.4); Lymphocytes Absolute Auto 2.2 X10*3/uL (1.2-4.9); Lymphocytes Percent Auto 28.7 % (20-40); Mean Corpuscular Hemoglobin 27.7 pg (27.0-33.0); Mean Corpuscular Volume 86.7 fL (80.0-98.0); Mean Platelet Volume 11.2 fL (9.4-12.4); Monocytes Absolute Auto 0.8 X10*3/uL (0.1-1.2); Monocytes Percent Auto 10.5 % (2-11); Neutrophils Absolute Auto 4.4 x10*3/uL (2.0-8.3); Neutrophils Percent Auto 57.8 % (45-73); Platelet Count 189 X10*3/uL (160-400); Red Cell Distribution Width 15.2 % (11.0-16.0); White Blood Count 7.7 X10*3/uL (4.8-10.8)
[2024-07-14 08:06] LABS: Anion Gap 12 (12-20); Blood Urea Nitrogen 14 mg/dL (9-16); Calcium 9.2 mg/dL (8.4-10.2); Carbon Dioxide 23 mmol/L (22-29); Chloride 110 mmol/L (96-108); Estimated Glomerular Filt Rate 45; Magnesium 2.2 mg/dL (1.6-2.6); Phosphorus 2.7 mg/dL (2.7-4.5); Potassium 3.5 mmol/L (3.3-5.1); Sodium 141 mmol/L (135-145)
--- OUTSIDE RECORDS SUMMARY | 2024-07-14 10:32 | XMS_ITS | Patient Health Record ---
Author Organization [facility] Address [address] [facility] [place] [address] Care Team Providers Care Utility Repairer Name Role Phone Geovanni Pink MD Primary Care Provider Mary Canela Unavailable [phone] Rajesh Oreilly Unavailable [phone] Allergies No Known Allergies Results Component Value [...] Problem Acquired hammer toe of right foot (8776845559989870) Other hammer toe(s) (acquired), right foot (M20.41) Active confirmed Problem Acquired hammer toe of left foot (9626087553498728) Other hammer toe(s) (acquired), left foot (M20.42) Active confirmed Problem Non-pressure chronic ulcer of other part of right foot with fat layer exposed (L97.512) Active confirmed Problem Chronic ulcer of foot (201135162) Non-pressure chronic ulcer of other part of left foot with fat layer exposed (L97.522) Active confirmed Problem Acquired hammer toe of right foot (2665248404911276) Other hammer toe(s) (acquired), right foot (M20.41) Active confirmed Problem Acquired hammer toe of left foot (7121035021801606) Other hammer toe(s) (acquired), left foot (M20.42) Active confirmed Problem Polyneuropathy due to type 2 diabetes mellitus (784885690) Type 2 diabetes mellitus with diabetic polyneuropathy (E11.42) Active confirmed Problem Polyneuropathy due to diabetes mellitus type I (850173983) Type 1 diabetes mellitus with diabetic polyneuropathy (E10.42) Active confirmed Problem 963202821 Hammer toe of right foot (M20.41) Active confirmed Problem 037409217 Hammer toe of left foot (M20.42) Active confirmed Problem 1584143069483358 Osteomyelitis o f foot, left, acute (M86.172) Active confirmed Problem 84449257 Non-pressure ulcer of left lower extremity with fat layer exposed (L97.922) Active confirmed Problem 31077990653067285 Atherosclerosi s of artery of both lower extremities (I70.203) Active confirmed Problem Neuropathic ulce r of right foot with fat layer exposed (L97.512) Active confirmed Response to treatment Problem 5806714518920952 Acute hematogenous osteomyelitis of left foot (M86.072) Active confirmed Problem Skin ulcer of to e of left foot with fat layer exposed (L97.522) Active confirmed Response to treatment, Nonapplica ble Problem 60955833669230146 Neuropathic ul cer of left foot, limited to breakdown of skin (L97.521) Active confirmed Vital Signs Blood pressure diastolic 63 mm Hg 05/04/2024 Height 5ft9in in 05/04/2024 Blood pressure systolic 163 mm Hg 05/04/2024 Weight 210 lbs 05/04/2024 BMI 31.01 kg/m2 05/04/2024 Procedures Procedure Date Ordered Date Performed Result Body Sit e 43858-XAZBUHO SKIN/TISSUE 02/11/2024 N/A Encounters Encounter Location Date Provider Diagnosis [facility] [address] 09/15/2023 Mary Rea Other hammer toe(s) (acquired), right foot M20.41 ; Acute osteomyelitis of toe, right M86.171 ; Neuropathic ulcer of right foot with fat layer exposed L97.512 ; Type 1 diabetes mellitus with diabetic polyneuropathy E10.42 ; Tinea unguium B35.1 and Atherosclerosis of artery of both lower extremities I70.203 [facility] [address] [address] 12/15/2023 Mary Rea Type 1 diabetes mellitus with diabetic polyneuropathy E10.42 ; Other hammer toe(s) (acquired), right foot M20.41 ; Tinea unguium B35.1 ; Atherosclerosis of artery of both lower extremities I70.203 ; Other hammer toe(s) (acquired), left foot M20.42 and Ingrown nail L60.0 [place] [address] [address] 02/11/2024 Rajesh Oreilly Skin ulcer of toe of left foot with fat layer exposed L97.522 and Type 1 diabetes mellitus with diabetic polyneuropathy E10.[address] [address] 04/14/2024 Mary Rea Type 2 diabetes mellitus with diabetic polyneuropathy E11.42 ; Contracture of toe of left foot M20.5X2 ; Tinea unguium B35.1 and Abscess of toe, left L02.[address] [address] 05/04/2024 Mary Rea Type 2 diabetes mellitus with diabetic polyneuropathy E11.42 ; Contracture of toe of left foot M20.5X2 ; Tinea unguium B35.1 and Neuropathic ulcer of left foot, limited to breakdown of skin L97.[address] [address] 11/24/2023 Mary Rea [address] [address] 11/27/2023 Mary Rea [address] [address] 02/11/2024 Mary Rea [address] [address] 03/07/2024 Mary Rea Assessments Encounter Date Diagnosis (ICD Code) Assessment Notes Treatment Notes Treatment Clinical Notes Section Notes 09/15/2023 Other hammer toe(s) (acquired), right foot [...] pdf) 12/15/2023 Tinea unguium (ICD-10 - B35.1) 09/15/2023 Type 1 diabetes mellitus with diabetic polyneuropathy (ICD-10 - E10.42) 04/14/2024 Abscess of toe, left (ICD-10 - L02.612) Patient Educated with: WOUND CARE INSTRUCTIONS. pdf (WOUND CARE INSTRUCTIONS. pdf) 05/04/2024 Neuropathic ulcer of left foot, limited to breakdown of skin (ICD-10 - L97.521) 12/15/2023 Atherosclerosis of artery of both lower extremities (ICD-10 - I70.203) 09/15/2023 Tinea unguium (ICD-10 - B35.1) 12/15/2023 Other hammer toe(s) (acquired), left foot (ICD-10 - M20.42) 09/15/2023 Atherosclerosis of artery of both lower extremities (ICD-10 - I70.203) 12/15/2023 Ingrown nail (ICD-10 - L60.0) 12/15/2023 Other 02/11/2024 Other 05/04/2024 Other Plan Of Treatment Pending Test Test Name Order Date X ray : Foot, left 3V 2020 X ray : Foot, left 3V 08/16/2021 X ray : Foot, left 3V 12/11/2022 X ray : Foot, left 3V 02/11/2024 76184-TOKZJHQ NAIL, 6 OR MORE 09/16/2021 73751-PHGNGBH SKIN/TISSUE 10/25/2021 98165-TESZVMC SKIN/TISSUE 12/04/2022 70856-TGCEWFR SKIN/TISSUE 12/11/2022 12427-PNTMRVN SKIN/TISSUE 09/16/2021 37983-OFIHBKK SKIN/TISSUE 2020 14567-TYLUGST SKIN/TISSUE 02/11/2024 93601-KADU SKIN LESIONS, OVER 4 11/28/19 23 97192-PLDR SKIN LESIONS, OVER 4 09/17/19 22 17923-NVLETJOH OF HEMATOMA/FLUID 023 Next Appt Details Provider Name:Mary vaughan, 07/15/2024 09:00:00 AM, [address] [place] [address], [phone], Insurance Providers Payer Name Payer Address Payer Phone Subscriber Number Group Number Insured Name Patient Relationship to Insured Coverage Start Date Coverage End Date [facility] [employer] Claims [address] [place] [id number] Raheem Castro Self - patient is the insured Medical (General) History Medical History History ICD Code Kidney disease type II diabetes Surgical History Surgery Date(Month/Year) kidney transplant 10/2016 L leg surgery 09/09/21 amputation, toe 01/2023 amputation , toe 04/2023 Toe amputation 10/14/23 hammertoe, right foot 02/2024 Hospitalization History Reason Date(Month/Year) C- fever- Infection in bone of toe [facility]- Cut of piece of toe 04/2023 [facility] - Cut of piece of toe 01/2023
--- OUTSIDE RECORDS SUMMARY | 2024-07-14 10:32 | XMS_ITS | Clinical Summary ---
Author Organization Patient Business Ser [facility] Address [address] [place] [address] Care Team Providers Care Analytics Developer Name Role Phone Lianne Manuel MD Primary Care Provider Social History Tobacco Use Types Packs/Day Years Used Date Smoking Tobacco: Never Assessed Sex and Gender Information Value Date Recorded Sex Assigned at Not on file Gender Identity Not on file Sexual Orientation Not on file Last Filed Vital Signs Vital Sign Reading Time Taken Comments Blood Pressure - - Pulse - - Temperature - - Respiratory Rate - - Oxygen Saturation - - Inhaled Oxygen Concentration - - Weight 88.5 kg (195 lb) 02/10/2022 4:16 PM EDT Height 175.3 cm (5' 9 ) 02/10/2022 4:16 PM EDT Body Mass Index 28.8 02/10/2022 4:16 PM EDT Plan of Treatment Health Maintenance Due Date Last Done Comments COVID-19 Vaccine (#1) 1976 Pneumococcal Vaccine: Pediat rics (0 to 5 Years) and At-Risk Patients (6 to 64 Years) (1 of 2 - PCV) 1977 DTaP,Tdap,and Td Vaccines (1 - Tdap) 1990 Hepatitis B Vaccines (1 of 3 - 19+ 3-dose series) 1990 Zoster Vaccines (1 of 2) 1990 Cholesterol Screening (Lipid Panel) 02/26/2022 Colorectal Cancer Screening: Colonoscopy 02/26/2022 Depression Screening 02/26/2022 HIV Screening 02/26/2022 Hepatitis C Screening 02/26/2022 Social Influencers of Health Screening 02/26/2022 Influenza Vaccine (#1) 2024 HIB Vaccines Aged Out No longer eligi ble based on patient's age to complete this topic HPV Vaccines Aged Out No longer eligi ble based on patient's age to complete this topic Hepatitis A Vaccines Aged Out No long er eligible based on patient's age to complete this topic IPV Vaccines Aged Out No longer eligi ble based on patient's age to complete this topic MMR Vaccines Aged Out No longer eligi ble based on patient's age to complete this topic Meningococcal ACWY Vaccine Aged Out N o longer eligible based on patient's age to complete this topic RSV Immunization Patients Un tammi 20 months Aged Out No longer eligible b ased on patient's age to complete this topic Varicella Vaccines Aged Out No longer eligible based on patient's age to complete this topic Care Teams Analytics Developer Relationship Specialty Start Date End Date Lianne Manuel MD [address] [place] [address] PCP - General Internal Medicine 01/30/22
--- OUTSIDE RECORDS SUMMARY | 2024-07-14 10:32 | XMS_ITS | Clinical Summary ---
Author Organization [facility] Address [address] [facility] [address] [place] [address] Phone Care Team Providers Care Bronze Chaser Name Role Phone Geovanni Pink MD Primary Care Provider [phone] Allergies No known active allergies Medications amLODIPine (NORVASC) 5 MG tablet Take 5 mg by mouth 1 (one) time each day Active Dapagliflozin Propanediol (Farxiga) 10 MG tablet Take 1 tablet by mouth 1 (one) time each day 90 tablet 11 2 Active mirtazapine (REMERON) 7.5 MG tablet Take 1 tablet (7.5 mg total) by mouth every night 90 tablet 3 3 Active Additional Information Patient not taking.Reported on 05/25/2023 LORazepam (ATIVAN) 0.5 MG tablet Take 0.5 mg by mouth every 6 (six) hours if needed for anxiety Active NovoLOG FLEXPEN 100 UNIT/ML injectionIndicat ions:Type 2 diabetes mellitus with diabetic chronic kidney disease (HCC) Inject 6-8 Units under the skin in the morning and 6-8 Units at noon and 6-8 Units in the evening. Inject before meals. 7.2 mL 5 3 Active mycophenolate (MYFORTIC) 180 MG EC tabletIndication s:Kidney replaced by transplant TAKE 3 TABLETS (540 MG TOTAL) BY MOUTH IN THE MORNING AND 3 TABLETS (540 MG TOTAL) IN THE EVENING 360 tablet 11 3 Active Rayaldee 30 MCG capsule controlled-relea se TAKE ONE CAPSULE BY MOUTH ONCE DAILY 90 capsule 11 3 Active Eliquis 5 MG tabletIndication s:Other penitentiary current drug therapy Take 1 tablet (5 mg total) by mouth in the morning and 1 tablet (5 mg total) in the evening. 180 tablet 3 3 Active cephalexin (KEFLEX) 500 MG capsule 3 Active ciprofloxacin (CIPRO) 500 MG tablet TAKE 1 TABLET BY MOUTH EVERY 12 HOURS FOR 7 DAYS 3 Active doxycycline (VIBRA-TABS) 100 MG tablet Take 100 mg by mouth in the morning and 100 mg in the evening. 3 Active Everolimus 1 MG tabletIndication s:Kidney transplant status Take 2 mg by mouth in the morning and 2 mg in the evening. Swallow whole with a glass of water. Do not take any tablet that is broken or crushed.. 360 tablet 3 4 08/03/19 25 Active Everolimus 1 MG tabletIndication s:Kidney transplant status Take 2 mg by mouth in the morning and 2 mg in the evening. Swallow whole with a glass of water. Do not take any tablet that is broken or crushed.. 120 tablet 4 07/28/19 25 Active B-D UF III MINI PEN NEEDLES 31G X 5 MM miscIndications: Type 2 diabetes mellitus with diabetic chronic kidney disease (HCC) USE ONE FOUR TIMES A DAY 120 each 4 Active Lantus 100 UNIT/ML injectionIndicat ions:Type 2 diabetes mellitus with diabetic chronic kidney disease (HCC) Inject 26 Units under the skin every night 7.8 mL 11 4 09/01/19 25 Active rosuvastatin (CRESTOR) 10 MG tabletIndication s:Hyperlipidemia , not otherwise specified Take 1 tablet (10 mg total) by mouth 1 (one) time each day 90 tablet 3 4 09/14/19 25 Active Active Problems Problem Noted Date Diagnosed Date Osteoporosis 05/25/2023 Open wounds involving multiple regions of lower limb(s) 10/19/2022 Type 2 diabetes mellitus wit h diabetic chronic kidney disease 12/18/2021 Polyneuropathy due to type 2 diabetes mellitus 0 11/20/2021 Acute nontraumatic kidney injury 10/30/2020 Essential hypertension 10/30/2020 Hyperkalemia 10/30/2020 Kidney replaced by transplant 10/30/2020 Orthostatic hypotension 10/30/2020 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 Immunosuppressed 10/30/2020 Proteinuria 10/30/2020 Resolved Problems Problem Noted Date Diagnosed Date Resolved Date Acquired hammer toe of left foot 11/20/2021 12/11/2021 Acute osteomyelitis of ankle and/or foot 11/20/2021 12/11/2021 Atherosclerosis of chinik ar teries of the extremities 11/20/2021 12/11/2021 Non-pressure chronic ulcer o f left lower leg with fat layer exposed 11/20/2021 12/11/2021 Type 1 diabetes mellitus 06/13/202101/2023 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 2 Paresthesia 06/13/2021 12/11/2021 Leukocytosis 06/13/2021 12/11/2021 Herpes zoster 06/13/2021 12/11/2021 Asthenia 06/13/2021 12/11/2021 Chronic kidney disease due to hypertension 10/30/2020 09/24/2022 Active immunization 10/30/2020 12/12/19 Acute proliferative glomerulonephritis 10/30/2020 12/11/2021 Dependence on renal dialysis 10/30/2020 07/11/2022 Edema 10/30/2020 12/11/2021 End stage renal failure on dialysis 10/30/2020 07/11/2022 Hemorrhage due to any device , implant AND/OR graft 10/30/2020 12/11/2021 History of immunosuppressive therapy 10/30/2020 12/11/2021 Hyperparathyroidism due to r enal insufficiency 10/30/2020 12/11/2021 Hypertensive heart and renal disease with (congestive) heart failure 10/30/2020 12/11/2021 Hypocalcemia 10/30/2020 12/11/2021 Kidney transplant rejection 10/30/2020 08/20/2022 Long-term (current) use of other medications 08/20/2022 Nephrotic syndrome 10/30/2020 Transplant follow-up 10/30/2020 023 Renal disorder due to type 1 diabetes mellitus 10/30/2020 08/20/2022 Immunizations Name Administration Dates Next Due Hepatitis B 11/15/2018, 8,03/25/2018,2016,04/15/2016,03/13/2016 Influenza Split High Dose Preservative Free IM 04/03/2016 Influenza, Unspecified 02/29/2016 Pfizer SARS-COV-2 09/20/2020,08/25/2020 Family History Medical History Relation Comments Diabetes Father Diabetes Mother Heart disease Mother Hypertension Mother Stroke Mother Relation Status Comments Father Mother Social History Tobacco Use Types Packs/Day Years Used Date Smoking Tobacco: Never Smokeless Tobacco: Never Tobacco Cessation:Counseling Given: No Alcohol Use Standard Drinks/Week Comments No 0 (1 standard drink = 0.6 oz pur e alcohol) Sex and Gender Information Value Date Recorded Sex Assigned at Not on file Legal Sex Male 4:43 PM EST Gender Identity Not on file Sexual Orientation Not on file Last Filed Vital Signs Vital Sign Reading Time Taken Comments Blood Pressure 120/70 07/07/2023 11:35 AM EST Pulse 78 07/07/2023 11:35 AM EST Temperature - - Respiratory Rate 22 10/01/2022 2:03 PM EDT Oxygen Saturation 99% 07/07/2023 11:35 AM EST Inhaled Oxygen Concentration - - Weight 96.6 kg (213 lb) 07/07/2023 11:35 AM EST Height 175.3 cm (5' 9 ) 02/04/2023 11:38 AM EDT Body Mass Index 31.45 02/04/2023 11:38 AM EDT Plan of Treatment Health Maintenance Due Date Last Done Comments Pneumococcal Vaccine: Pediat rics (0 to 5 Years) and At-Risk Patients (6 to 64 Years) (1 of 2 - PCV) 1977 Hepatitis B Vaccine (1 of 3 - 19+ 3-dose series) 1990 11/15/2018, 04/22/2018, 03/25/2018, Additional history exists Diabetes: Ophthalmology Exam 07/15/2020 Diabetes: Pedal Pulse Checked 07/15/2020 Diabetes: Sensory Foot Exam 07/15/2020 Diabetes: Visual Foot Exam 07/15/2020 Colonoscopy (Post-Transplant Patient) 08/08/2020 Diabetes: Hemoglobin A1C 12/21/2023 024, 07/21/2023, 08/18/2022, Additional history exists Influenza Vaccine (#1) 2024 04/03/2016, 2015 Procedures Procedure Name Priority Date/Time Associated Diagnosis Comments HEMOGLOBIN A1C Routine 09/21/2023 1:00 PM EDT from Last 3 Months or Most Recently Relevant to Health Maintenance Results * (ABNORMAL) Hemoglobin A1c (09/21/2023 1:00 PM EDT) Hemoglobin A1C 8.7(H) 4.8 - 5.6 % [facility] Comment: ? Prediabetes: 5.7 - 6.4 ? Diabetes: >6.4 ? Glycemic control for adults with diabetes: <7.0 09/21/2023 1:00 PM EDT 09/21/2023 Narrative [facility] - 09/24/2023 5:06 PM EDT Performed at: ??01 - [facility] [address] ??[id number] Chiller Operator: Debora Brian MD, Phone: ??[phone] us Skyler Banda MD LAB BLOOD ORDERABLES Final Resu lt [facility] from Last 3 Months or Most Recently Relevant to Health Maintenance [place] [address] [address] ([id number]) [place] [id number] [facility] [place] [id number] Care Teams Bronze Chaser Relationship Specialty Start Date End Date Geovanni Pink MD [address] [place] [id number] PCP - General Family Medicine 04/23/23
--- OUTSIDE RECORDS SUMMARY | 2024-07-14 10:33 | XMS_ITS ---
Author Organization [facility] Address [address] [facility] [place] [address] Care Team Providers Care Charge Weigher Name Role Phone Geovanni Pink MD Primary Care Provider Mary Canela Unavailable [phone] Allergies No Known Allergies REASON FOR VISIT At Risk Footcare, Possible Infection Medications Medication SIG (Take, Route, Frequency, Duration) Notes Start Date End Date Status Doxycycline Monohydrate 100 MG 1 capsule Orally Twice a day for 14 days 14 adys Not-Taking Mycophenolic Acid 3 tabs Twice day Not-Taking Cipro 500 MG 1 tablet Orally ever y 12 hrs for 7 days 04/16/2023 Not-Taking Amoxicillin-Pot Clavulanate 875 875-125 MG one tab Orally every 12 hrs for 10 day(s) 12/04/2022 Not-Taking Cephalexin 500 MG 1 capsule Orally Twi ce a day for 7 days 04/17/2023 Not-Taking Aspir-81 once a day Active Extra Depth Diabetic Shoes with 3 Pair Custom heat-molded multi-density innersoles for 1 year Dx: Not-Taking Extra Depth Orthopedic Shoes (1 Pair) with Customized Heat Molded Multidensity Innersoles (3 Pair) as directed Dx: IDDM/Polyneuropathy (E10.42), Hammertoe Foot Deformity (M20.41,M20.42), Preulcerative Skin Lesion(s) (L85.1) Not-Taking Antibiotic Chest Not-Takin g Extra Depth Orthopedic Shoes (1 Pair) with Customized Heat Molded Multidensity Innersoles (3 Pair) as directed Dx: NIDDM/Polyneuropathy (E11.42), Hammertoe Foot Deformity (M20.41,M20.42), Preulcerative Skin Lesion(s) (L85.1 12/15/2023 Active Rayaldee 30 MCG 1 capsule at bedtime Orally Once a day for 30 day(s) Active Losartan Potassium 28 untis Once a day Active Tacrolimus 4tabs Twice a day A ctive Lantus Active amLODIPine Besylate Once a day Active metFORMIN HCl Active Social History Tobacco Use: Social History Observation Description Date Details (start date - stop date) Never Smoker NA - NA Tobacco Use/Smoking Question Answer Notes Are you a: nonsmoker Additional Findings: Tobacco Non-User Aggressive non-smoker Tobacco use other than smoking: Question Answer Notes Are you an other tobacco user? No Problems Problem Type SNOMED Code ICD Code Onset Dates Problem Status W/U Status Risk Notes Problem [id number] Neuropathic ulcer of left foot, limited to breakdown of skin (L97.521) Active confirmed Vital Signs Height 5ft9in in 05/04/2024 Weight 210 lbs 05/04/2024 BMI 31.01 kg/m2 05/04/2024 Blood pressure systolic 163 mm Hg 05/04/20 24 Blood pressure diastolic 63 mm Hg 024 Encounters Encounter Location Date Provider Diagnosis [facility] [address] [address] 05/04/2024 Mary Rea Type 2 diabetes mellitus with diabetic polyneuropathy E11.42 ; Contracture of toe of left foot M20.5X2 ; Tinea unguium B35.1 and Neuropathic ulcer of left foot, limited to breakdown of skin L97.521 Assessments Encounter Date Diagnosis (ICD Code) Assessment Notes Treatment Notes Treatment Clinical Notes Section Notes 05/04/2024 Type 2 diabetes mellitus with diabetic polyneuropathy (ICD-10 - E11.42) 05/04/2024 Contracture of toe of left foot (ICD-10 - M20.5X2) 05/04/2024 Tinea unguium (ICD-10 - B35.1) 05/04/2024 Neuropathic ulcer of left foot, limited to breakdown of skin (ICD-10 - L97.521) 05/04/2024 Other Plan Of Treatment Next Appt Details Follow Up: 2 Months, Reason: Provider Name:Mary vaughan, 07/15/2024 09:00:00 AM, [address] [place], [address], Progress Notes * Raheem CASTRODOB:1970 ( 54 yo M)Acc No.[id number]:05/04/2024 Progress Notes Patient:?Raheem CASTRO Provider:?Mary Rea DPJose Manuel :1970???Age:54 Y???Sex:Male Romeo e:05/04/2024 Address:[address] [place] [address], [facility] Pcp:Geovanni Pink MD Subjective: * Chief Complaints: * ???At Risk FootcarePossible Infection * HPI: ???At Risk footcare:?Pt States Last PCP Visit:?Date?08/25/2023 ?Pt had right foot hammertoe surgery by FREDRICK. ???Toe pain:?Nature:?contracture.?Location:?Great toe , Left foot.?Duration:?several months.?Onset/Cause:?gradual; after surgery for infected bone left foot from FREDRICK.?Course:?improved.?Treatments:?medication ( abx oint ?).? * ROS:?General/Constitutional:?Nausea?denies.?Vomiting?denies.?Hunger Thirst?denies.?Loss appetite?denies.?Chills?denies.?Fatigue?denies.?Fever?denies.?Night Sweats?denies.?Unexplained weight loss?denies.?Unexplained [...] toe [facility]- Cut of piece [facility] toe [facility]- fever- Infection in bone of toe 08/08 * Family History:?Mother: dece ased, diagnosed with Diabetic - NIDDM.?Father: .? * Social History:?Tobacco Use:?Tobacco Use/Smoking?Are you a:?nonsmoker ?Additional Findings: Tobacco Non-User?Aggressive non-smoker ?Tobacco use other than smoking?Are you an other tobacco user??No * Medications:?TakingmetFORMIN HCl amLODIPine Besylate Once a day Lantus Losartan Potassium 28 untis Once a day Rayaldee 30 MCG Capsule Extended Release 1 capsule at bedtime Orally Once a day Tacrolimus 4tabs Twice a day Aspir-81 once a day Extra Depth Orthopedic Shoes (1 Pair) with Customized Heat Molded Multidensity Innersoles (3 Pair) as directed Dx: NIDDM/Polyneuropathy (E11.42), Hammertoe Foot Deformity (M20.41,M20.42), Preulcerative Skin Lesion(s) (L85.1 Taking metFORMIN HCl Taking amLODIPine Besylate Once a day Taking Lantus Taking Losartan Potassium 28 untis Once a day Taking Rayaldee 30 MCG Capsule Extended Release 1 capsule at bedtime Orally Once a day Taking Tacrolimus 4tabs Twice a day Taking Aspir-81 once a day Taking Extra Depth Orthopedic Shoes (1 Pair) with Customized Heat Molded Multidensity Innersoles (3 Pair) as directed Dx: NIDDM/Polyneuropathy (E11.42), Hammertoe Foot Deformity (M20.41,M20.42), Preulcerative Skin Lesion(s) (L85.1 Not-Taking/PRNAntibiotic , Notes to Pharmacist: ChestExtra Depth Orthopedic Shoes (1 Pair) with Customized Heat Molded Multidensity Innersoles (3 Pair) as directed Dx: IDDM/Polyneuropathy (E10.42), Hammertoe Foot Deformity (M20.41,M20.42), Preulcerative Skin Lesion(s) (L85.1) Extra Depth Diabetic Shoes with 3 Pair Custom heat-molded multi-density innersoles for 1 year Dx: Cipro 500 MG Tablet 1 tablet Orally every 12 hrs Cephalexin 500 MG Capsule 1 capsule Orally Twice a day Amoxicillin-Pot Clavulanate 875 875-125 MG Tablet one tab Orally every 12 hrs Mycophenolic Acid 3 tabs Twice day Doxycycline Monohydrate 100 MG Capsule 1 capsule Orally Twice a day , Notes to Pharmacist: 14 adysMedication List reviewed and reconciled with the patientNot-Taking/PRN Antibiotic , Notes to Pharmacist: ChestNot-Taking/PRN Extra Depth Orthopedic Shoes (1 Pair) with Customized Heat Molded Multidensity Innersoles (3 Pair) as directed Dx: IDDM/Polyneuropathy (E10.42), Hammertoe Foot Deformity (M20.41,M20.42), Preulcerative Skin Lesion(s) (L85.1) Not-Taking/PRN Extra Depth Diabetic Shoes with 3 Pair Custom heat-molded multi-density innersoles for 1 year Dx: Not-Taking/PRN Cipro 500 MG Tablet 1 tablet Orally every 12 hrs Not-Taking/PRN Cephalexin 500 MG Capsule 1 capsule Orally Twice a day Not-Taking/PRN Amoxicillin-Pot Clavulanate 875 875-125 MG Tablet one tab Orally every 12 hrs Not-Taking/PRN Mycophenolic Acid 3 tabs Twice day Not-Taking/PRN Doxycycline Monohydrate 100 MG Capsule 1 capsule Orally Twice a day , Notes to Pharmacist: 14 adysMedication List reviewed and reconciled with the patient * Allergies:?N.K.D.A.yes[Aller gies Verified] Objective: * Vitals:?Ht: 5ft9in, Wt:210, BMI:31.01, Shoe size: 11, BP:163/63mm Hg, BS: 140, Ht-cm: 175.26 cm, Wt-k.25 kg. * ???Past Orders: ???Lab:HEMOGLOBIN A1C (GLYCO HEMOGLOBIN) (Order Date - 09/01/2023) (Collection Date & Time - 09/01/2023) ? Value Reference Range ?TOTAL [...] pain on palpation due to neuropathy , , T8, T9.?Dermatologic: ?SKIN FINDINGS:?Skin exam reveals Keratotic lesion(s) located at , TA , T3 , T4, T6, SUB MTH (s), 2, Right; dry stable eschar distal TA, no drainage, no signs of infection.?Orthopedic: ?MUSCLE STRENGTH:?5/5 all groups in a symmetrical fashion, B/L.?BUNION:?dorsal contraction 1st MPJ left incompletely reducible.?General Examination: ?GENERAL APPEARANCE:?Reveals a pleasant, alert, well nourished, well- developed, well hydrated individual, who demonstrates proper attention to hygiene/body habitus, and is in no acute distress, Pt serves as own historian for office visit today , Denies fever, chills, malaise, lymphadenopathy.?ORIENTED:?person, place, and time.? Assessment: * Assessment: 1.?Type 2 diabetes mellitus with diabetic polyneuropathy - E11.42???2.?Contracture of toe of left foot - M20.5X2 (Primary)???3.?Tinea unguium - B35.1???4.?Neuropathic ulcer of left foot, limited to breakdown of skin - L97.521??? Plan: * Treatment: * Procedure Codes:? * Preventive Medicine:? ??Counseling:?Discussion:?-13: Office or other outpatient visit for the evaluation and management of an established patient, which required a medically appropriate history and/or examination and LOW level of DECISION MAKING for: 1 STABLE ACUTE UNCOMPLICATED PROBLEM, 2 OR MORE MINOR PROBLEMS, OR 1 STABLE CHRONIC PROBLEM, THAT POSE(S) A LOW RISK FOR MORBIDITY/MORTALITY. The visit on the day of the [...] Consult for discussion of contracture left 1st MPJ-pt states he is going to follow up with Ortho.?Shoe Gear Counseling:?The patient and I reviewed the [...] patient verbally confirmed to understanding the information discussed.?Ulcer:?A detailed plan of care was reviewed with the patient. We emphasized the fact that the patient takes on an active participating role in the treatment process and emphasized to them that they are an included, valued, and important member of the wound healing team in order to reach an expedient successful outcome. The patient agreed to follow their medically recommended diet while increasing their protein intake if safely able to do so, maintain proper bodily hydaration, abide by weight-bearing restrictions at all times, quit all current smoking habits if any, and diligently follow any/all dressing change instructions. It was clearly made known to the patient that if they fail to do their part, they will likely extend their course of treatment as well as possibly increase their risk of adverse events including amputation. The patient was instructed on importance of proper wound care consisting of pressure reduction, and proper maintainance of a moist wound environment. The patient is to cleanse the wound with warm soapy water/peroxide/saline, or betadine BID based on product availability. The patient is to apply ( Neosporin, Polysporin, or Triple, ) Antibiotic to the wound and cover with a DSD as directed. The patient was instructed to change dressings according to orders, or PRN saturation, leaks. The patient was instructed to monitor and report any signs or symptoms of infection or any untoward reactions. Precautions Taken: Offloading/Pressure reduction via rest/ limited activity to essential to daily life only, cane/ crutches/ walker/ knee scooter/ wheel chair, shoe modification, accommodative padding, sharp debridement, and take/apply medication as directed. THE GOALS of wound debridement to remove devitilized tissue, decrease risk for infection, promote wound healing and prevent further complication were discussed/reviewed. Debridement frequency as indicated.? * Follow Up:?2 Months * Images: * Sign off status: Completed true * Provider:?Mary Rea DPM Date:? Generated for Deedee huerta/Mike/Ric on:?07/14/2024 10:32 AM EST History and Physical Notes * HPI (History of Present Illness) Category Sub-Category Detail Notes Category Not es Toe pain Nature: contracture Location: Great toe , Left alice t Duration: several months Onset/Cause: gradual; after surge ry for infected bone left foot from FREDRICK Course: improved Treatments: medication ( abx oin t ) At Risk footcare Pt States Last PCP Visit: Date: 08/25/2023 Pt had right foot hammertoe surgery by FREDRICK Examination Category Sub-Category Detail Notes Category Not es Neurological SENSORY: Neurological exa m demonstrates, reduced light touch sensation, reduced sharp/dull discrimination , reduced vibration sensation, in a stocking fashion, B/L, 5.07 monofilament test performed at plantar aspects of 5 varied sites per foot shows sensation, reduced, B/L Dermatologic SKIN FINDINGS: Skin exam reveal s Keratotic lesion(s) located at , TA , T3 , T4, T6, SUB MTH (s), 2, Right; dry stable eschar distal TA, no drainage, no signs of infection Orthopedic BUNION: dorsal contracti on 1st MPJ [...] pain on palpation due to neuropathy , , T8, T9
--- OUTSIDE RECORDS SUMMARY | 2024-07-14 10:33 | XMS_ITS ---
Author Name [facility] Organization Unknown Problems Problem Status Onset Date Problem Type Date of Resoluti on Source Complication of transplanted kidney, unspecified complication active [facility]
--- OUTSIDE RECORDS SUMMARY | 2024-07-14 10:33 | XMS_ITS ---
Author Organization [facility] Address [address] [facility] [place] [address] Care Team Providers Care Clinic Business Manager Name Role Phone Geovanni Pink MD Primary Care Provider Mary Canela Unavailable [phone] Allergies No Known Allergies REASON FOR VISIT [...] 04/14/2024 Encounters Encounter Location Date Provider Diagnosis [facility] [address] 04/14/2024 Mary Rea Type 2 diabetes mellitus [...] Provider Name:Mary vaughan, 07/15/2024 09:00:00 AM, [address] [place], [address], Procedure Notes * Category Sub-Category Detail Notes [...] dispensed. Recommended Tylenol or Motrin for pain/discomfort (74829) , DIABETES: Pt was advised as to [...] 15 blade, tissue nippers, and/or dremel - 77436 Debride Nails 1-5 Procedure: Performance of this nail treatment by a nonprofessional would put this patients foot and overall health at risk. Therefore, nail debridement was performed extensively to reduce/remove overall nail length, girth, thickness, subungual debris, and necrotic tissue, by manual and/or electrical means through the use of a nail nipper and/or dremel-type tankage grinder, to a more viable healthy nail plate or bed tissue 1-5. Silver nitrate used for any petechial bleeding as necessary. Definitive antifungal treatment options have been reviewed and discussed with the patient. The patient chooses, no pharmaceutical tx - [address] Progress Notes * Raheem CASTRODOB:1970 ( 54 yo M)Acc No.[id number]:04/14/2024 Progress Note Patient:?Raheem Castro Provider:?Mary Rea DPM :1970???Age:54 Y???Sex:Male Romeo e:04/14/2024 Address: [address], [place] Pcp:Geovanni Pink MD Subjective: * Chief Complaints: [...] yes, occasional, walking. ?Marital status: . 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 * Medications:?TakingmetFORMIN HCl amLODIPine Besylate [...] use of a nail nipper and/or dremel-type tankage grinder, to a more viable healthy nail plate or bed tissue 1-5. Silver nitrate used for any petechial bleeding as necessary. Definitive antifungal treatment options have been reviewed and discussed with the patient. The patient chooses, no pharmaceutical tx - 51393.?I&D nail abscess:?Type?Single, Abscess.?Anesthesia?was deferred - NEUROPATHY: patient [...] dispensed. Recommended Tylenol or Motrin for pain/discomfort (67731) , DIABETES: Pt was advised as to the risk of delayed or nonhealing due to diabetes. Pt is to call the office with any questions, concerns, or complications.?Keratoma Treatment:?Parring or Cutting of Benign Hyperkeratotic Lesion(s)?(-57) More than 4 Lesions - The Benign hyperkeratotic lesions, as described above were pared, and/or cut utilizing a sterile 15 blade, tissue nippers, and/or dremel - 31655.? * Procedure Codes:?12163 DRAIN AGE OF SKIN ABSCESS, Modifiers: XS 61489 DEBRIDE NAIL, 1-5, Modifiers: XS 27644 TRIM SKIN LESIONS, OVER 4, Modifiers: XS [...] Rea DPM Date:? Generated for Deedee huerta/Mike/Mirianitting on:?07/14/2024 10:32 AM EST History and Physical [...]
--- OUTSIDE RECORDS SUMMARY | 2024-07-14 10:33 | XMS_ITS ---
Author Organization [facility] Address [address] [place] [address] Care Team Providers Care Lining Cementer Name Role Phone Geovanni Pink MD Primary Care Provider Mary Canela [phone] Encounters Encounter Location Date Provider Diagnosis [address] [address] 03/08/2024 Mary Rea Plan Of Treatment Next Appt Details Provider Name:Mary vaughan, 07/15/2024 09:00:00 AM, [address] [place], [address], Progress Notes * Raheem CASTRODOB:1970 ( 54 yo M)Acc No.[id number]:03/08/2024 Progress Note Patient:?GRZEGORZ Raheem Provider:?Mary Rea DPM :1970???Age:53 Y???Sex:Male Romeo e:03/08/2024 Address:[address] [place] [address], [place] Pcp:Geovanni Pink MD Subjective: * Chief Complaints: [...]
--- OUTSIDE RECORDS SUMMARY | 2024-07-14 10:33 | XMS_ITS | Clinical Summary ---
Author Organization [facility] Address [address] [place] [address] Care Team Providers Care Gang Hemstitching Machine Operator Name Role Phone Lianne Manuel MD Primary Care Provider Social History Tobacco Use Types Packs/Day Years Used Date Smoking Tobacco: Never Assessed Sex and Gender Information Value Date Recorded Sex Assigned at Not on file Gender Identity Not on file Sexual Orientation Not on file Plan of Treatment Health Maintenance Due Date Last Done Comments Hepatitis C Virus Screening 1970 Pneumococcal Vaccine: Pediat manan (0-5 Years) and At-Risk Patients (6 to 49 Years) (1 of 2 - PCV) 1977 HIV Screening 1984 DTaP/Tdap/Td Vaccines (1 - Tdap) 1990 Pneumococcal Vaccines 50+ (1 of 2 - PCV) 1990 Hepatitis B Vaccines (1 of 3 - Risk Dialysis 4-dose series) 1991 Colonoscopy 2016 Zoster (Shingles) Vaccine (1 of 2) 2021 Influenza Vaccine 01/14/2024 02/29/2016, 02/29/2016 COVID-19 Vaccine ( season) 02/14/202401/2021, 08/25/2020 Care Teams Gang Hemstitching Machine Operator Relationship Specialty Start Date End Date Lianne Manuel MD [address] [place], [place] [id number] PCP - General Internal Medicine 07/10/22
[2024-07-17 05:34] LABS: Everolimus 5.8 ng/mL (see note)
== END 2024-07-14 07:23 | disposition home or self-care (01) ==
LOC: HO.LAB 07:22
PROVIDERS: PCP Family Medicine; Visit Provider Internal Medicine Nephrology
DX: I15.0 Renovascular hypertension (principal); Z94.0 Kidney transplant status; E11.22 Type 2 diabetes mellitus with diabetic chronic kidney disease; N18.30 Chronic kidney disease, stage 3 unspecified; Z79.4 Long term (current) use of insulin
CPT/HCPCS: 36415; 80051; 80169; 82310; 82565; 83735; 84100; 84520; 85025

== ENCOUNTER 2024-07-20 09:36 | Outpatient (AMB) | payer OTHER, SELFPAY ==
--- NOTE | 2024-07-20 10:07 | HO.NEPHOV_ITS ---
Vital Signs 07/20/24 10:09 Height 5 ft 6 in Weight 216 lb 6 oz BMI 34.9 BP 150/74 H Blood Pressure Location Lt brachial Position Sitting Pulse 54 Pulse Source Pulse Oximeter Pulse Oximetry (%) 98 Oxygen Delivery Method Room Air Intake Visit Reasons: 3mon follow up-Conf Director Cardiology Required: No Accompanied by: Self / Same As Patient Allergies No Known Allergies Allergy (Verified 07/20/24 10:08) HPI Comments Details: Raheem Castro is 54 years with type 2 diabetes mellitus on insulin, chronic kidney disease s/p living donor renal transplant from who also has H/O treated seminoma post transplant. He had his hammer toe fixed on Sep by Dr Aydee Diaz in [facility]. He denied any chills, nausea, vomiting, dizziness or palpitations. He denied any cardiopulmonary, gastrointestinal or genitourinary symptoms. Renal function is around baseline. His blood sugar is stable. There were no new other active complaints at the time of this office visit [facility] Medical History HTN (hypertension) PAD (peripheral artery disease) CKD (chronic kidney disease) stage 3, GFR 30-59 ml/min MSSA bacteremia Osteomyelitis of third toe of left foot S/P angiogram of extremity (10/08/22) Diabetic ulcer of right foot Osteomyelitis Wound of right foot Chronic right shoulder pain Multinodular goiter Testicular cancer Bleeding internal hemorrhoids Seminoma Paresthesia and pain of extremity Type 2 diabetes mellitus with hyperglycemia, with long-term current use of insulin Type 2 diabetes mellitus with chronic kidney disease Hyperlipidemia Vaccination refused by patient Refused pneumococcal vaccination Anemia in stage 4 chronic kidney disease Acute proliferative glomerulonephritis Secondary hyperparathyroidism of renal origin Mixed dyslipidemia Peripheral vascular disease Carpal tunnel syndrome on left Diabetes mellitus with diabetic nephropathy, with long-term current use of insulin Osteomyelitis of left foot Diabetes mellitus with foot ulcer End-stage renal disease on hemodialysis Surgical History Renal transplant recipient History of amputation (01/19/23) Amputated toe of right foot (10/13/22) History of kidney transplant Kidney transplant recipient Family History Father Unknown family medical history Mother Diabetes mellitus HTN (hypertension) CVD (cardiovascular disease) History of CVA (cerebrovascular accident) Stroke Sister Diabetes mellitus Daughter No problems noted. Sister No problems noted. Sister No problems noted. Social History Household Members: Family Housing: House Do you presently have visiting nurse or other home services: No Alcohol intake: never Patient Tobacco Use Status: Never used Tobacco e-Cigarette/Vaping Use: Never Used Advance Directives Date on File: 01/16/23 service: No Current occupational status: disabled Current occupation: disability - kidney transplant. Left side dominant Cognitive needs: No Hearing needs: No Vision needs: No Review of Systems Const All systems reviewed & are unremarkable except as noted in HPI and below Physical Exam Vital Signs: Last Vital Signs Pulse 54 07/20/24 10:09 BP 150/74 H 07/20/24 10:09 Pulse Ox 98 07/20/24 10:09 Oxygen Delivery Method Room Air 07/20/24 10:09 BMI result Body Mass Index 34.9 Const General: comfortable and no acute distress Orientation/consciousness: patient oriented x3 HEENT Head: Yes normocephalic Mouth: Normal oral and palatal mucosa present Eyes EOM: EOMs intact bilaterally Neck Neck: Yes supple Resp Auscultation: clear to auscultation bilaterally Cardio Jugular venous distension: no JVD Rate: regular rate GI Palpation (GI): Soft to palpation Auscultation: normal bowel sounds General: Yes no CVA tenderness Back/Spine/Pelvis Back: no CVA tenderness Skin General skin exam: no rashes or lesions noted Neuro General: patient oriented x3 and moves all extremities Extrem General: Yes no pedal edema Results Reviewed Nephrology Results: Hgb 15.8 g/dl (14.0-18.0) 07/14/24 WBC 7.7 X10*3/uL (4.8-10.8) 07/14/24 Plt Count 189 X10*3/uL (160-400) 07/14/24 Sodium 141 mmol/L (135-145) 07/14/24 Potassium 3.5 mmol/L (3.3-5.1) 07/14/24 Chloride 110 mmol/L (96-108) H 07/14/24 Carbon Dioxide 23 mmol/L (22-29) 07/14/24 BUN 14 mg/dL (9-16) 07/14/24 Creatinine 1.62 mg/dL (0.5-1.4) H 07/14/24 Calcium 9.2 mg/dL (8.4-10.2) 07/14/24 Phosphorus 2.7 mg/dL (2.7-4.5) 07/14/24 Assessment & Plan Assessment & Plan (1) HTN (hypertension): Code(s): I10 - Essential (primary) hypertension Category: Medical Qualifiers: Hypertension type: renovascular hypertension Qualified Code(s): I15.0 - Renovascular hypertension (2) Renal transplant recipient: Code(s): Z94.0 - Kidney transplant status Category: Surgical Plan Transplant renal function at baseline C/W current dose of MMF C/W Everolimus to 1 mg AM and 2 mg PM Needs better BS control @ home No NSAID's and good hydration Already on SGLT 2 i; May need to increase Rayaldee @ next visit C/W rest of current management for now Needs annual dermatology visit All questions answered; F/U given Orders: Orders Other Ref Test - Misc 3 Months Z94.0 - Kidney transplant status Aspartate Amino Transferase 3 Months Z94.0 - Kidney transplant status Alanine Aminotransferase 3 Months Z94.0 - Kidney transplant status Protein Creatinine Ratio, Ur 3 Months Z94.0 - Kidney transplant status Creatinine 3 Months Z94.0 - Kidney transplant status Blood Urea Nitrogen 3 Months Z94.0 - Kidney transplant status Electrolytes 3 Months Z94.0 - Kidney transplant status Calcium 3 Months Z94.0 - Kidney transplant status Phosphorus 3 Months Z94.0 - Kidney transplant status Magnesium 3 Months Z94.0 - Kidney transplant status Complete Blood Count Auto Diff 3 Months Z94.0 - Kidney transplant status Vitamin D 25-OH Total 3 Months Z94.0 - Kidney transplant status Parathyroid Hormone Intact 3 Months Z94.0 - Kidney transplant status Coding Level of Care Code Est Pt Level 4 (70833) Diagnoses Renovascular hypertension I15.0 Hypertension type: renovascular hypertension Renal transplant recipient Z94.0
[2024-07-20 10:09] VITALS: BP 150/74; PULSE 54; O2SAT 98; BMI 34.9
--- OUTSIDE RECORDS SUMMARY | 2024-07-20 10:09 | XMS_ITS | Clinical Summary ---
Author Organization [facility] Address [address] [facility] [address] [place] [address] Phone Care Team Providers Care Hand Driller Name Role Phone Geovanni Pink MD Primary Care Provider [phone]- [phone] Allergies No known active allergies Medications amLODIPine [...] 3 Active Eliquis 5 MG tabletIndication s:Other residential current drug therapy Take 1 tablet (5 [...] ankle and/or foot 11/20/2021 12/11/2021 Atherosclerosis of [place] ter[place] of the extremities 11/20/2021 12/11/2021 [...] PM EDT Performed at: ??01 - [facility] [address] ??[id number] Lending Manager: Debora Brian MD, Phone: ??[phone] us Skyler Banda MD LAB BLOOD ORDERABLES Final Resu lt [facility] from Last 3 Months or Most Recently Relevant to Health Maintenance [place] [address] [address] [place] [address] ([id number]) J[place] FARIA [id number] [facility] [place] F[place] [id number] Care Teams Hand Driller Relationship Specialty Start Date End Date Geovanni Pink MD [address] [place] [id number] PCP - General Family Medicine 04/23/23
--- OUTSIDE RECORDS SUMMARY | 2024-07-20 10:09 | XMS_ITS | Clinical Summary ---
Author Organization [facility] Address [address] [place] [address] Care Team Providers Care Electrical Continuity Tester Name Role Phone Lianne Manuel MD Primary [...] Vaccine ( season) 02/14/202401/2021, 08/25/2020 Care Teams Electrical Continuity Tester Relationship Specialty Start Date End Date Lianne Manuel MD [address] [place], [place] [id number] PCP - General Internal Medicine 07/10/22
--- OUTSIDE RECORDS SUMMARY | 2024-07-20 10:09 | XMS_ITS | Clinical Summary ---
Author Organization Patient Business Ser [facility] Address [address] [place] [address] Care Team Providers Care Bellman Name Role Phone Lianne Manuel MD Primary [...] age to complete this topic Care Teams Bellman Relationship Specialty Start Date End Date Lianne Maunel MD [address] [place] [address] PCP - General Internal Medicine 01/30/22
== END 2024-07-20 10:27 | disposition home or self-care (01) ==
PROVIDERS: PCP Family Medicine; Visit Provider Internal Medicine Nephrology
DX: I15.0 Renovascular hypertension (principal); Z94.0 Kidney transplant status
CPT/HCPCS: 99214

== ENCOUNTER → 2024-07-20 09:36 | Outpatient (BNVA) | payer OTHER, SELFPAY | PROVIDERS: PCP Family Medicine; Visit Provider Internal Medicine Nephrology | DX: I15.0 Renovascular hypertension (principal); Z94.0 Kidney transplant status | CPT/HCPCS: 99212; 99395 ==

== ENCOUNTER 2024-09-27 08:25 | Outpatient (AMB) | payer OTHER, SELFPAY ==
--- OUTSIDE RECORDS SUMMARY | 2024-09-27 08:32 | XMS_ITS | Clinical Summary ---
Author Organization Patient Business Ser [facility] Address [address] [place] [address] Care Team Providers Care Mud Mixer Operator Name Role Phone Lianne Manuel MD Primary Care Provider Social History Tobacco Use Types Packs/Day Years Used Date Smoking Tobacco: Never Assessed Sex and Gender Information Value Date Recorded Sex Assigned at Not on file Legal Sex Male 11:08 AM EDT Gender Identity Not on file Sexual Orientation [...] Last Done Comments COVID-19 Vaccine (#1) 1976 DTaP,Tdap,and Td Vaccines (1 - Tdap) 1990 Hepatitis B Vaccines (1 of 3 - 19+ 3-dose series) 1990 Pneumococcal Vaccine: 50+ Ye ars (1 of 2 - PCV) 1990 Pneumococcal Vaccine: Pediat rics (0 to 5 Years) and At-Risk Patients (6 to 64 Years) (1 of 2 - PCV) 1990 Zoster Vaccines (1 of 2) 1990 Cholesterol Screening (Lipid Panel) 02/26/2022 Colorectal Cancer Screening: Colonoscopy 02/26/2022 Depression Screening 02/26/2022 HIV Screening 02/26/2022 Hepatitis C Screening 02/26/2022 Social Influencers of Health Screening 02/26/2022 Influenza Vaccine (Season Ended) 2025 HIB Vaccines Aged Out No longer eligi [...] patient's age to complete this topic Meningococcal B Vaccine Aged Out No l onger eligible based on patient's age to complete this topic RSV Immunization Patients Un tammi 20 months Aged Out No longer eligible b ased on patient's age to complete this topic Varicella Vaccines Aged Out No longer eligible based on patient's age to complete this topic Care Teams Mud Mixer Operator Relationship Specialty Start Date End Date Lianne Maneul MD [address] [place] [address] PCP - General Internal Medicine 01/30/22
--- OUTSIDE RECORDS SUMMARY | 2024-09-27 08:32 | XMS_ITS | Clinical Summary ---
Author Organization [facility] Address [address] [facility] [address] [place] [address] Phone Care Team Providers Care Checkman Name Role Phone Geovanni Pink MD Primary Care Provider [phone]- [phone] Allergies No known active allergies Medications amLODIPine [...] 3 Active Eliquis 5 MG tabletIndication s:Other snf current drug therapy Take 1 tablet (5 [...] 100 mg in the evening. 3 Active B-D UF III MINI PEN NEEDLES 31G X 5 MM miscIndications: Type 2 diabetes mellitus with diabetic chronic kidney disease (HCC) USE ONE FOUR TIMES A DAY 120 each 11 4 Active Lantus 100 UNIT/ML injectionIndicat ions:Type 2 diabetes mellitus with diabetic chronic kidney disease (HCC) Inject 26 Units under the skin every night 7.8 mL 11 4 Active rosuvastatin (CRESTOR) 10 MG tabletIndication s:Hyperlipidemia , not otherwise specified Take 1 tablet (10 mg total) by mouth 1 (one) time each day 90 tablet 3 4 Active Active Problems Problem Noted Date Diagnosed [...] ankle and/or foot 11/20/2021 12/11/2021 Atherosclerosis of [place] ar teries of the extremities 11/20/2021 12/11/2021 Non-pressure chronic ulcer o f left lower leg with fat layer exposed 11/20/2021 12/11/2021 Type 1 diabetes mellitus 06/13/202101/2023 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 2 Paresthesia 06/13/2021 12/11/2021 Leukocytosis 06/13/2021 12/11/2021 Herpes zoster 06/13/2021 12/11/2021 Asthenia 06/13/2021 12/11/2021 Chronic kidney disease due to hypertension 10/30/2020 09/24/2022 Active immunization 10/30/2020 12/12/19 22 Acute proliferative glomerulonephritis 10/30/2020 12/11/2021 Dependence on [...] type 1 diabetes mellitus 10/30/2020 08/20/2022 Immunizations Immunization Administration Dates Next Due Hepatitis B 11/15/2018, [...] Maintenance Due Date Last Done Comments Hepatitis B Vaccine (1 of 3 - 19+ 3-dose series) 1990 11/15/2018, 04/22/2018, 03/25/2018, Additional history exists Pneumococcal Vaccine: 50+ Ye ars (1 of 2 - PCV) 1990 Diabetes: Ophthalmology Exam 07/15/2020 Diabetes: Pedal Pulse Checked 07/15/2020 Diabetes: Sensory Foot Exam 07/15/2020 Diabetes: Visual Foot Exam 07/15/2020 Colonoscopy (Post-Transplant Patient) 08/08/2020 Diabetes: Hemoglobin A1C 12/21/2023 024, 07/21/2023, 08/18/2022, Additional history exists Influenza Vaccine (Season Ended) 2025 04/03/20 16, 02/29/2016 Procedures Procedure Name Priority Date/Time Associated Diagnosis [...] PM EDT Performed at: ??01 - [facility] [address] ??[id number] Mechanical Specialist: Debora Brian MD, Phone: ??[phone] us Skyler Banda MD LAB BLOOD ORDERABLES Final Resu lt [facility] from Last 3 Months or Most Recently Relevant to Health Maintenance Insurance [facility] ([id number]) [facility] Care Teams Checkman Relationship Specialty Start Date End Date Geovanni Pink MD [address] [place] [id number] PCP - General Family Medicine 04/23/23
--- OUTSIDE RECORDS SUMMARY | 2024-09-27 08:32 | XMS_ITS | Patient Health Record ---
Author Organization [facility] Address [address] [facility] [place] [address] Care Team Providers Care Hand Candy Molder Name Role Phone Geovanni Pink MD Primary Care Provider Mary Canela Unavailable [phone] Rajesh Oreilly Unavailable [phone] Allergies No Known Allergies Results Component Value Reference Range Notes HEMOGLOBIN A1C (GLYCOHEMOGLO BIN) Reviewed date:07/15/2024 08:54:03 AM Interpretation: Performing Lab: Notes/Report: HEMOGLOBIN A1C % (HH) 7.3 Reason For Referral No Information Medications Medication SIG (Take, Route, Frequency, Duration) Notes Start Date End Date Status Extra Depth Orthopedic Shoes (1 Pair) with Customized Heat Molded Multidensity Innersoles (3 Pair) as directed Dx: NIDDM/Polyneuropathy (E11.42), Hammertoe Foot Deformity (M20.41,M20.42), Preulcerative Skin Lesion(s) (L85.1 12/15/2023 Active Ammonium Lactate 12 % 1 application Externally to affected areas of dry skin to feet except for between the toes Twice a day for 30 days Active Tacrolimus 4tabs Twice a day A ctive Aspir-81 once a day Active Losartan Potassium 28 untis Once a day Active Mycophenolic Acid 3 tabs Twice day Not-Taking Rayaldee 30 MCG 1 capsule at bedtime Orally Once a day for 30 day(s) Active Doxycycline Monohydrate 100 MG 1 capsule Orally Twice a day for 14 days 14 adys Not-Taking amLODIPine Besylate Once a day Active Cephalexin 500 MG 1 capsule Orally Twi ce a day for 7 days 04/17/2023 Not-Taking Lantus Active Amoxicillin-Pot Clavulanate 875 875-125 MG one tab Orally every 12 hrs for 10 day(s) 12/04/2022 Not-Taking Extra Depth Diabetic Shoes with 3 Pair Custom heat-molded multi-density innersoles for 1 year Dx: Not-Taking metFORMIN HCl Active Cipro 500 MG 1 tablet Orally ever y 12 hrs for 7 days 04/16/2023 Not-Taking Antibiotic Chest Not-Takin g Extra Depth Orthopedic Shoes (1 Pair) with Customized Heat Molded Multidensity Innersoles (3 Pair) as directed Dx: IDDM/Polyneuropathy (E10.42), Hammertoe Foot Deformity (M20.41,M20.42), Preulcerative Skin Lesion(s) (L85.1) Not-Taking Immunizations Vaccine Route Administration Date Status Comme [...] Problem Acquired hammer toe of right foot (4071772798721283) Other hammer toe(s) (acquired), right foot (M20.41) Active confirmed Problem Acquired hammer toe of left foot (6853547081231803) Other hammer toe(s) (acquired), left foot (M20.42) Active confirmed Problem Non-pressure chronic ulcer of other part of right foot with fat layer exposed (L97.512) Active confirmed Problem Chronic ulcer of foot (256257032) Non-pressure chronic ulcer of other part of left foot with fat layer exposed (L97.522) Active confirmed Problem Acquired hammer toe of right foot (9648496404701102) Other hammer toe(s) (acquired), right foot (M20.41) Active confirmed Problem Acquired hammer toe of left foot (3016996616083676) Other hammer toe(s) (acquired), left foot (M20.42) Active confirmed Problem Polyneuropathy due to type 2 diabetes mellitus (091409510) Type 2 diabetes mellitus with diabetic polyneuropathy (E11.42) Active confirmed Problem Polyneuropathy due to diabetes mellitus type I (063581518) Type 1 diabetes mellitus with diabetic polyneuropathy (E10.42) Active confirmed Problem 660244460 Hammer toe of right foot (M20.41) Active confirmed Problem 794012331 Hammer toe of left foot (M20.42) Active confirmed Problem 0143389119125435 Osteomyelitis o f foot, left, acute (M86.172) Active confirmed Problem 31871317 Non-pressure ulcer of left lower extremity with fat layer exposed (L97.922) Active confirmed Problem 79067834032005077 Atherosclerosi s of artery of both lower extremities (I70.203) Active confirmed Problem Neuropathic ulce r of right foot with fat layer exposed (L97.512) Active confirmed Response to treatment Problem 2231405435086207 Acute hematogenous osteomyelitis of left foot (M86.072) Active confirmed Problem Skin ulcer of to e of left foot with fat layer exposed (L97.522) Active confirmed Response to treatment, Nonapplica ble Problem 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) Active confirmed Response to treatment Problem 37348562690295300 Neuropathic ul cer of left foot, limited to breakdown of skin (L97.521) Active confirmed Vital Signs Blood pressure diastolic 62 mm Hg 08/26/2024 Height 5ft9in in 08/26/2024 Blood pressure systolic 135 mm Hg 08/26/2024 Weight 215 lbs 08/26/2024 BMI 31.75 kg/m2 08/26/2024 Procedures Procedure Date Ordered Date Performed Result Body Sit e 68167-VIQAALG SKIN/TISSUE 02/11/2024 N/A Encounters Encounter Location Date Provider Diagnosis [facility] [address] [place] [address] 12/15/2023 Mary Rea Type 1 diabetes mellitus with diabetic polyneuropathy E10.42 ; Other hammer toe(s) (acquired), right foot M20.41 ; Tinea unguium B35.1 ; Atherosclerosis of artery of both lower extremities I70.203 ; Other hammer toe(s) (acquired), left foot M20.42 and Ingrown nail L60.0 [facility] [address] [address] 02/11/2024 Rajesh Randolphunier Skin ulcer of toe of left foot with fat layer exposed L97.522 and Type 1 diabetes mellitus with diabetic polyneuropathy E10.[address] [address] 04/14/2024 Mary Rea Type 2 diabetes mellitus with diabetic polyneuropathy E11.42 ; Contracture of toe of left foot M20.5X2 ; Tinea unguium B35.1 and Abscess of toe, left L02.[address] [address] 05/04/2024 Mary Rea Type 2 diabetes mellitus with diabetic polyneuropathy E11.42 ; Contracture of toe of left foot M20.5X2 ; Tinea unguium B35.1 and Neuropathic ulcer of left foot, limited to breakdown of skin L97.[address] [address] 07/15/2024 Mary Rea Type 2 diabetes mellitus with diabetic polyneuropathy E11.42 ; Contracture of toe of left foot M20.5X2 and Tinea unguium B35.[address] [address] 08/26/2024 Mary Rea Neurotrophic ulcer o f left foot limited to breakdown of skin L97.521 ; Xerosis of skin L85.3 and Type 2 diabetes mellitus with diabetic polyneuropathy E11.[address] [address] 11/24/2023 Mary Rea [address] [address] 11/27/2023 Mary Rea [address] [address] 02/11/2024 Mary Rea [address] [address] 03/07/2024 Mary Rea Assessments Encounter Date Diagnosis (ICD Code) Assessment Notes Treatment Notes Treatment Clinical Notes Section Notes 12/15/2023 Other hammer toe(s) (acquired), right foot [...] toe of left foot (ICD-10 - M20.5X2) 07/15/2024 Type 2 diabetes mellitus with diabetic polyneuropathy (ICD-10 - E11.42) 07/15/2024 Contracture of toe of left foot (ICD-10 - M20.5X2) 08/26/2024 Neurotrophic ulcer of left foot limited to breakdown of skin (ICD-10 - L97.521) Response to treatment Patient Educated with: WOUND CARE INSTRUCTIONS. pdf (WOUND CARE INSTRUCTIONS. pdf) 08/26/2024 Xerosis of skin (ICD-10 - L85.3) 07/15/2024 Tinea unguium (ICD-10 - B35.1) 05/04/2024 Tinea unguium (ICD-10 - B35.1) 04/14/2024 Tinea unguium (ICD-10 - B35.1) 12/15/2023 Tinea unguium (ICD-10 - B35.1) 04/14/2024 Abscess of toe, left (ICD-10 - L02.612) Patient Educated with: WOUND CARE INSTRUCTIONS. pdf (WOUND CARE INSTRUCTIONS. pdf) 05/04/2024 Neuropathic ulcer of left foot, limited to breakdown of skin (ICD-10 - L97.521) 12/15/2023 Atherosclerosis of artery of both lower extremities (ICD-10 - I70.203) 08/26/2024 Type 2 diabetes mellitus with diabetic polyneuropathy (ICD-10 - E11.42) 12/15/2023 Other hammer toe(s) (acquired), left foot (ICD-10 - M20.42) 12/15/2023 Ingrown nail (ICD-10 - L60.0) 12/15/2023 Other 02/11/2024 Other 05/04/2024 Other Plan Of Treatment Pending Test Test Name Order Date X ray : Foot, left 3V 2020 X ray : Foot, left 3V 08/16/2021 X ray : Foot, left 3V 12/11/2022 X ray : Foot, left 3V 02/11/2024 01556-JBEKYZA NAIL, 6 OR MORE 09/16/2021 12336-TOTMLWM SKIN/TISSUE 10/25/2021 12405-GHWIEOU SKIN/TISSUE 12/04/2022 83508-MRUSCKA SKIN/TISSUE 12/11/2022 20429-NJFXJGM SKIN/TISSUE 09/16/2021 55490-JGIKFOU SKIN/TISSUE 2020 95979-AYTIIFX SKIN/TISSUE 02/11/2024 02609-TSDC SKIN LESIONS, OVER 4 11/28/19 23 69088-OQRW SKIN LESIONS, OVER 4 09/17/19 22 69482-DWPJLLJS OF HEMATOMA/FLUID 023 Next Appt Details Provider Name:Mary vauhgan, 10/12/2024 09:15:00 AM, [address] [facility], [place], [address], Insurance Providers Payer Name Payer Address Payer Phone Subscriber Number Group Number Insured Name Patient Relationship to Insured Coverage Start Date Coverage End Date [facility] [employer] Claims [address] [place] [id number] Raheem Castro Self - patient is the insured Medical (General) History Medical History History ICD Code Kidney disease type II diabetes Surgical History Surgery Date(Month/Year) kidney transplant 10/2016 L leg surgery 09/09/21 amputation, toe 01/2023 amputation , toe 04/2023 Toe amputation 10/14/23 hammertoe, right foot 02/2024 Hospitalization History Reason Date(Month/Year) [facility]- fever- Infection in bone of toe [facility]- Cut of piece of toe 04/2023 [facility] - Cut of piece of toe 01/2023
--- OUTSIDE RECORDS SUMMARY | 2024-09-27 08:32 | XMS_ITS ---
[facility] Address [address] [place] [address] Care Team Providers Care Gis Consultant Name Role Phone Geovanni Pink MD Primary Care Provider Mary Canela Unavailable [phone] Allergies No Known Allergies REASON FOR VISIT Open sore, Skin problem(s) Medications Medication SIG (Take, Route, Frequency, Duration) Notes Start Date End Date Status Tacrolimus 4tabs Twice a day A ctive Losartan Potassium 28 untis Once a day Active Rayaldee 30 MCG 1 capsule at bedtime Orally Once a day for 30 day(s) Active amLODIPine Besylate Once a day Active Lantus Active Ammonium Lactate 12 % 1 application Externally to affected areas of dry skin to feet except for between the toes Twice a day for 30 days Active Mycophenolic Acid 3 tabs Twice day Not-Taking Doxycycline Monohydrate 100 MG 1 capsule Orally Twice a day for 14 days 14 adys Not-Taking Amoxicillin-Pot Clavulanate 875 875-125 MG one tab Orally every 12 hrs for 10 day(s) 12/04/2022 Not-Taking metFORMIN HCl Active Cephalexin 500 MG 1 capsule Orally Twi ce a day for 7 days 04/17/2023 Not-Taking Extra Depth Diabetic Shoes with 3 Pair Custom heat-molded multi-density innersoles for 1 year Dx: Not-Taking Cipro 500 MG 1 tablet Orally ever y 12 hrs for 7 days 04/16/2023 Not-Taking Antibiotic Chest Not-Takin g Extra Depth Orthopedic Shoes (1 Pair) with Customized Heat Molded Multidensity Innersoles (3 Pair) as directed Dx: IDDM/Polyneuropathy (E10.42), Hammertoe Foot Deformity (M20.41,M20.42), Preulcerative Skin Lesion(s) (L85.1) Not-Taking Extra Depth Orthopedic Shoes (1 Pair) with Customized Heat Molded Multidensity Innersoles (3 Pair) as directed Dx: NIDDM/Polyneuropathy (E11.42), Hammertoe Foot Deformity (M20.41,M20.42), Preulcerative Skin Lesion(s) (L85.1 12/15/2023 Active Aspir-81 once a day Active Social History Tobacco Use: Social History [...] Problem Status W/U Status Risk Notes Problem 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) Active confirmed Response to treatment Vital Signs Height 5ft9in in 08/26/2024 Weight 215 lbs 08/26/2024 BMI 31.75 kg/m2 08/26/2024 Blood pressure systolic 135 mm Hg 08/27/19 25 Blood pressure diastolic 62 mm Hg 025 Encounters Encounter Location Date Provider Diagnosis [facility] [address] [place] [address] 08/26/2024 Mary Chaunceyclement Neurotrophic ulcer o f left foot limited to breakdown of skin L97.521 ; Xerosis of skin L85.3 and Type 2 diabetes mellitus with diabetic polyneuropathy E11.42 Assessments Encounter Date Diagnosis (ICD Code) Assessment Notes Treatment Notes Treatment Clinical Notes Section Notes 08/26/2024 Neurotrophic ulcer of left foot limited to breakdown of skin (ICD-10 - L97.521) Response to treatment Patient Educated with: WOUND CARE INSTRUCTIONS. pdf (WOUND CARE INSTRUCTIONS. pdf) 08/26/2024 Xerosis of skin (ICD-10 - L85.3) 08/26/2024 Type 2 diabetes mellitus with diabetic polyneuropathy (ICD-10 - E11.42) Plan Of Treatment Medication Medication Name Sig Start Date Stop Date Notes Ammonium Lactate 12 % 1 application Exte rnally to affected areas of dry skin to feet except for between the toes Twice a day for 30 days Treatment Notes Assessment Notes Neurotrophic ulcer of left f oot limited to breakdown of skin Patient Educated with: WOUND CARE INSTRUCTIONS.pdf (WOUND CARE INSTRUCTIONS.pdf) Next Appt Details Follow Up: 3 Weeks, Reason: Provider Name:Mary vaughan, 10/12/2024 09:15:00 AM, [address] [place] [address], [id number], Procedure Notes * Category Sub-Category Detail Notes Debride skin< 25 sq cm Open wound NEUROPATH Y: Physician of record performed open wound selective debridement of first 25 sq cm or less, of devitilized necrotic/nonviable soft tissue, fibrin, and exudate extending from the epidermis through the dermis, utilizing sharp dissection with sterile 15 blade, and/or tissue nippers. Hemostasis was controlled through direct pressure. Sterile antibiotic dressing applied, ANESTHESIA was not required due to presence of NEUROPATHY. Post debridement measurements: 5mm x 2mm x 2mm. Character of the wound post debridement is stable (52499), The patient was instructed on importance of proper wound care consisting of pressure reduction, maintainance of moist wound environment, and regular debridement of devitilized tissue, The patient is to cleanse the wound with warm soapy water/peroxide/saline or betadine BID based on product availability, The patient is to apply Medihoney to the wound and cover with a DSD, The patient was instructed to change dressings according to orders or PRN saturation, leaks, The patient was instructed to monitor and report any signs or symptoms of infection or any untoward reactions, The patient is to cont the local wound care as directed Progress Notes * Raheem CASTRODOB:1970 ( 54 yo M)Acc No.[id number]:08/26/2024 Progress Note Patient:?Raheem CASTRO Provider:?Mary Rea DPM :1970???Age:54 Y???Sex:Male Romeo e:08/26/2024 Address:[address] [place] [address], [facility] Pcp:Geovanni Pink MD Subjective: * Chief Complaints: * ???Open soreSkin problem(s) * HPI: ???Skin problems:?Nature:?dryness , scaling.?Location:?B/L .?Duration:?several days.?Course:?worse.? * ROS:?General/Constitutional:?Nausea?denies.?Vomiting?denies.?Hunger Thirst?denies.?Loss appetite?denies.?Chills?denies.?Fatigue?denies.?Fever?denies.?Night Sweats?denies.?Unexplained weight loss?denies.?Unexplained weight gain?denies.?HEENTM:?Dentures?denies.?Dizziness?denies.?Glasses/contacts?admits.?Retinopathy?den ies.?Blurred/double vision?denies.?TMJ?denies.?Discharge/drainage?denies.?Implants?denies.?Sore throat?denies.?Dental implants?denies.?Hard of hearing ?denies.?Difficulty chewing/swallowing/speaking?denies.?Nose bleeds?denies.?Sore mouth?denies.?Respiratory:?On O xygen?denies.?Pneumonia/pleurisy?denies.?Bronchitis?denies.?Emphysema?denies.?Co ughing?denies.?Cough blood?denies.?Shortness of breath?denies.?Wheezing?denies.?Cardiovascular:?Pacemaker?denies.?MVP?denies.?WPW?denies.?CHF?denies.?Heart attack?denies.?Septal defect?denies.?Rapid beat?denies.?Chest pain ?denies.?Atrial Fib.?denies.?Murmur/Palpitations?denies.?Gastrointestinal:?Hemorrhoids?denies.?Stomach/Abdominal pain?denies.?Dark blood stool?denies.?Irritable bowel ?denies.?Constipation?denies.?Diarrhea?denies.?Hematology:?Swelling?denies.?Clots?denies.?Varicose Veins?denies.?Bruising?denies.?Bleeding problem?denies.?Genitourinary:?Blood urine?denies.?Frequent/Painfu/urination/bladder control?denies.?Kidney stones?denies.?Infection (UTI)?denies.?Nephropathy?denies.?sex trans dis (STD)?denies.?Prostate?denies.?Musculoskeletal:?Hammertoes?admits.?Bunions?denies.?Back Pain?denies.?Muscle Cramps/ Resting?denies.?Muscle cramps / walking?denies.?Generalized aches and pains?denies.?Weakness?denies.?Integ.:?Montelongo?denies.?Scars?denies.?Corns/calluses?denies.?Ingrown nails?denies.?Painful nails?denies.?Open Sores?admits.?Rashes?denies.?Neurologic:?Difficulty sleeping?denies.?Brain disorder?denies.?Numbness?denies.?Balance t rouble?denies.?Confusion?denies.?Fainting/blackouts?denies.?Tingling?denies.?Silvino mors?denies.? * Medical History:? * Surgical History:?kidney tra [...] than smoking?Are you an other tobacco user??No ???Miscellaneous:?Caffeine: yes, frequency: Very Occassionally soda. ?Children: yes, 1. ?Exercise: yes, occasional, walking. ?Marital status: . 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 * Medications:?TakingmetFORMIN HCl amLODIPine Besylate [...] Allergies:?N.K.D.A.yes[Aller gies Verified] Objective: * Vitals:?Ht: 5ft9in, Wt:215, BMI:31.75, Shoe size: 11, BP:135/62mm Hg, BS: 143, Ht-cm: 175.26 cm, Wt-k.52 kg. * ???Past Orders: ???Lab:HEMOGLOBIN A1C (GLYCO HEMOGLOBIN) (Order Date - 04/15/2024) (Collection Date & Time - 04/15/2024 08:53 AM) ? Value Reference Range ?HEMOGLOBIN A1C % (HH) 7.3 * Examination: ???Ophthalmology Referral: ?DIABETES EYE EXAM?Procedure Performed:?Yes ?Date of Exam Performed?02/14/2024 ?Findings of Diabetic Eye Exam:?retinopathy?Dermatologic: ?SKIN FINDINGS:?Skin shows sign(s) of, dryness, scaling, in a stocking fashion,? B/L with fissure(s) present, left forefoot.?ULCER:?LOCATION, plantar 1st interspace?LEFT, SIZE, 5mm X 2mm X 2mm, BASE, granular, RIM, hyperkeratotic, UNDERMINING, absent, TRACKING, Full thickness breakdown of skin, DRAINAGE, serosanguineous, mild, NECROTIC TISSUE, loosely-adherent, yellow slough, MALODOR, absent, CALOR, absent, ERYTHEMA, absent.?Neurological: ?SENSORY:?Neurological exam demonstrates, reduced light touch sensation, reduced sharp/dull discrimination , reduced vibration sensation, in a stocking fashion, B/L, 5.07 monofilament test performed at plantar aspects of 5 varied sites per foot shows sensation, reduced, B/L.?Orthopedic: ?MUSCLE STRENGTH:?5/5 all groups in a symmetrical fashion, B/L.?BUNION:?dorsal contraction 1st MPJ left incompletely reducible to push up.?General Examination: ?GENERAL APPEARANCE:?Reveals a pleasant, alert, well nourished, well- developed, well hydrated individual, who demonstrates proper attention to hygiene/body habitus, and is in no acute distress, Pt serves as own historian for office visit today.?ORIENTED:?person, place, and time.?FOOT EXAM:?Lower Extremity Neurological Exam performed:?Yes ?Visual exam of foot performed:?Yes ?Date?08/26/2024??? Assessment: * Assessment: 1.?Neurotrophic ulcer of lef t foot limited to breakdown of skin - L97.521 (Primary)???Notes :Response to treatment???2.?Xerosis of skin - L85.3???Specify :Acute problem, Uncomplicated (3),Rx Management (4)???3.?Type 2 diabetes mellitus with diabetic polyneuropathy - E11.42??? Plan: * Treatment: 2.?Xerosis of skin? Start Ammonium Lactate Cream, 12 %, 1 application, Externally to affected areas of dry skin to feet except for between the toes, Twice a day, 30 days, 280, Refills 3.?? * Procedures:?Debride skin< 25 sq cm:?Open wound?NEUROPATHY: Physician of record performed open wound selective debridement of first 25 sq cm or less, of devitilized necrotic/nonviable soft tissue, fibrin, and exudate extending from the epidermis through the dermis, utilizing sharp dissection with sterile 15 blade, and/or tissue nippers. Hemostasis was controlled through direct pressure. Sterile antibiotic dressing applied, ANESTHESIA was not required due to presence of NEUROPATHY. Post debridement measurements: 5mm x 2mm x 2mm. Character of the wound post debridement is stable (41618), The patient was instructed on importance of proper wound care consisting of pressure reduction, maintainance of moist wound environment, and regular debridement of devitilized tissue, The patient is to cleanse the wound with warm soapy water/peroxide/saline or betadine BID based on product availability, The patient is to apply Medihoney to the wound and cover with a DSD, The patient was instructed to change dressings according to orders or PRN saturation, leaks, The patient was instructed to monitor and report any signs or symptoms of infection or any untoward reactions, The patient is to cont the local wound care as directed.? * Procedure Codes:?29586 ACTIV E WOUND CARE/20 CM OR <, Modifiers: XS * Preventive Medicine:? ??Counseling:?Discussion:?-13: Office or other [...] have encouraged the patient to call the office.?Ulcer:?A detailed plan of care was reviewed with [...] availability. The patient is to apply ( ____ ) Antibiotic to the wound and cover [...] further complication were discussed/reviewed. Debridement frequency as indicated.?Xerosis:?The patient was counseled on the diagnosis, potential etiologies, and treatment options for their skin condition. We discussed the risks and benefits of each option from performing no treatment, to utilizing OTC topical skin creams/ointments, to utilizing prescription topical creams/ointments, to utilizing customized compounded topical medications and use of nocturnal occlusion with any/all previously detailed therapies. We discussed the advantages and disadvantages of each possible treatment and importance for adherence to all the recommended therapies for optimum success and avoid potential complications such as open sore/infection/possible hospitalization. We discussed the potential effectiveness of each topical preparation as well as each ones possible side effects and/or patient medication interactions. Patient questions re: use, dosage, successful outcomes, and application consistency were reviewed and the patient verbalized that all answers were clearly understood. The patient has decided to apply Rx skin creams to their feet save the interspaces while paying special attention to the heels. Such was sent to their pharmacy at the time of visit.? ??Screening/Special Tests:?Fall Risk?Screening:?No falls in the past year ?FALLS: Screening for Future Fall Risk?Have you had any falls with injury in the past year??No * Follow Up:?3 Weeks * Images: * Sign off status: Completed true * Provider:?Mary Rea DPM Date:? Generated for Deedee huerta/Mike/Ric on:?09/27/2024 08:32 AM EDT History and Physical Notes * HPI (History of Present Illness) Category Sub-Category Detail Notes Category Not es Skin problems Nature: dryness , scaling Location: B/L Duration: several days Course: worse Examination Category Sub-Category Detail Notes Category Not es Neurological SENSORY: Neurological exa m demonstrates, reduced light touch sensation, reduced sharp/dull discrimination , reduced vibration sensation, in a stocking fashion, B/L, 5.07 monofilament test performed at plantar aspects of 5 varied sites per foot shows sensation, reduced, B/L Dermatologic SKIN FINDINGS: Skin shows sign( s) of, dryness, scaling, in a stocking fashion, B/L with fissure(s) present, left forefoot ULCER: LOCATION, plantar 1s t interspace LEFT, SIZE, 5mm X 2mm X 2mm, BASE, granular, RIM, hyperkeratotic, UNDERMINING, absent, TRACKING, Full thickness breakdown of skin, DRAINAGE, serosanguineous, mild, NECROTIC TISSUE, loosely-adherent, yellow slough, MALODOR, absent, CALOR, absent, ERYTHEMA, absent Orthopedic BUNION: dorsal contracti on 1st MPJ left incompletely reducible to push up MUSCLE STRENGTH: 5/5 all groups in a symmetrical fashion, B/L General Examination GENERAL APPEARANCE: Reveals a pleasant, alert, well nourished, well-developed, well hydrated individual, who demonstrates proper attention to hygiene/body habitus, and is in no acute distress, Pt serves as own historian for office visit today FOOT EXAM: Lower Extremity Neurological Exa m performed:: Yes Visual exam of foot performed:: Yes Date: 08/26/2024 ORIENTED: person, place, and t jose enrique Ophthalmology Referral DIABETES EYE EXAM Procedure Perform ed:: Yes ?Date of Exam Performed: 02/14/2024 Findings of Diabetic Eye Exam:: retinopa thy
--- OUTSIDE RECORDS SUMMARY | 2024-09-27 08:32 | XMS_ITS ---
Author Organization [facility] Address [address] [facility] [place] [address] Care Team Providers Care Bag Checker Name Role Phone Geovanni Pink MD Primary Care Provider Mary Canela Unavailable [phone] Allergies No Known Allergies REASON FOR VISIT [...] Problem Status W/U Status Risk Notes Problem [id number] Neuropathic ulcer of left foot, limited to breakdown of skin (L97.521) Active confirmed Vital Signs Height 5ft9in in 05/04/2024 Weight 210 lbs 05/04/2024 BMI 31.01 kg/m2 05/04/2024 Blood pressure systolic 163 mm Hg 05/04/20 24 Blood pressure diastolic 63 mm Hg 024 Encounters Encounter Location Date Provider Diagnosis [facility] [address] [address] 05/04/2024 Mary Rea Type 2 diabetes mellitus [...] Up: 2 Months, Reason: Provider Name:Mary vaughan, 10/12/2024 09:15:00 AM, [address] [place], [address], Progress Notes * Raheem CASTRODOB:1970 ( 54 yo M)Acc No.[id number]:05/04/2024 Progress Notes Patient:?Raheem CASTRO Provider:?Mary Rea DPJose Manuel :1970???Age:54 Y???Sex:Male Romeo e:05/04/2024 Address:[address] [place] [address], [facility] Pcp:Geovanni Pink MD Subjective: * Chief Complaints: [...] toe [facility]- Cut of piece [facility]- fever- Infection in bone of toe 08/08 [...] Tablet 1 tablet Orally every 12 hrs Not- Taking/PRN Cephalexin 500 MG Capsule 1 capsule Orally [...] Examination: ???Ophthalmology Referral: ?DIABETES EYE EXAM?Procedure Performed:?Yes ?Diabetic Retinopathy Screening:?Yes ?Findings of Diabetic Eye Exam:?retinopathy?Neurological: ?SENSORY:?Neurological exam demonstrates, reduced light touch sensation, [...]
--- OUTSIDE RECORDS SUMMARY | 2024-09-27 08:32 | XMS_ITS | Clinical Summary ---
Author Organization [facility] Address [address] [place] [address] Care Team Providers Care Castings Drafter Name Role Phone Lianne Manuel MD Primary [...] Vaccine ( season) 02/14/202401/2021, 08/25/2020 Care Teams Castings Drafter Relationship Specialty Start Date End Date Lianne Manuel MD [address] [place], [place] [id number] PCP - General Internal Medicine 07/10/22
--- OUTSIDE RECORDS SUMMARY | 2024-09-27 08:32 | XMS_ITS ---
Author Organization [facility] Address [address] [place] [address] Care Team Providers Care Dry Wall Applicator Name Role Phone Geovanni Pink MD Primary Care Provider Mary Canela Unavailable [phone] Allergies No Known Allergies REASON FOR VISIT At Risk Footcare, Toe Issue Medications Medication SIG (Take, Route, Frequency, Duration) Notes Start Date End Date Status Antibiotic Chest Not-Takin g Extra Depth Orthopedic Shoes (1 Pair) with Customized Heat Molded Multidensity Innersoles (3 Pair) as directed Dx: NIDDM/Polyneuropathy (E11.42), Hammertoe Foot Deformity (M20.41,M20.42), Preulcerative Skin Lesion(s) (L85.1 12/15/2023 Active Cipro 500 MG 1 tablet Orally ever y 12 hrs for 7 days 04/16/2023 Not-Taking Extra Depth Diabetic Shoes with 3 Pair Custom heat-molded multi-density innersoles for 1 year Dx: Not-Taking Extra Depth Orthopedic Shoes (1 Pair) with Customized Heat Molded Multidensity Innersoles (3 Pair) as directed Dx: IDDM/Polyneuropathy (E10.42), Hammertoe Foot Deformity (M20.41,M20.42), Preulcerative Skin Lesion(s) (L85.1) Not-Taking Aspir-81 once a day Active Tacrolimus 4tabs Twice a day A ctive Rayaldee 30 MCG 1 capsule at bedtime Orally Once a day for 30 day(s) Active Losartan Potassium 28 untis Once a day Active Lantus Active Doxycycline Monohydrate 100 MG 1 capsule Orally Twice a day for 14 days 14 adys Not-Taking Mycophenolic Acid 3 tabs Twice day Not-Taking Amoxicillin-Pot Clavulanate 875 875-125 MG one tab Orally every 12 hrs for 10 day(s) 12/04/2022 Not-Taking amLODIPine Besylate Once a day Active metFORMIN HCl Active Cephalexin 500 MG 1 capsule Orally Twi ce a day for 7 days 04/17/2023 Not-Taking Social History Tobacco Use: Social History Observation Description Date Details (start date - stop date) Never Smoker NA - NA Tobacco Use/Smoking Question Answer Notes Are you a: nonsmoker Additional Findings: Tobacco Non-User Aggressive non-smoker Tobacco use other than smoking: Question Answer Notes Are you an other tobacco user? No Vital Signs Height 5ft9in in 07/15/2024 Weight 208 lbs 07/15/2024 BMI 30.71 kg/m2 07/15/2024 Blood pressure systolic 135 mm Hg 07/15/19 25 Blood pressure diastolic 60 mm Hg 025 Encounters Encounter Location Date Provider Diagnosis [facility] [address] [address] 07/15/2024 Mary Rea Type 2 diabetes mellitus with diabetic polyneuropathy E11.42 ; Contracture of toe of left foot M20.5X2 and Tinea unguium B35.1 Assessments Encounter Date Diagnosis (ICD Code) Assessment Notes Treatment Notes Treatment Clinical Notes Section Notes 07/15/2024 Type 2 diabetes mellitus with diabetic polyneuropathy (ICD-10 - E11.42) 07/15/2024 Contracture of toe of left foot (ICD-10 - M20.5X2) 07/15/2024 Tinea unguium (ICD-10 - B35.1) Plan Of Treatment Next Appt Details Follow Up: 2 Months, Reason: Provider Name:Mary vaughan, 10/12/2024 09:15:00 AM, [address] [place] [address], [phone], Procedure Notes * Category Sub-Category Detail Notes Debride Nail 6-10 Nail debridement Due to the cl inical pathology outlined in the exam findings, performance of this nail treatment is medically necessary as its management by an unskilled/untrained nonprofessional would put this patients foot and overall health at risk. Therefore, debridement to affected nail(s), as described in exam ( TA, T2, T3, T4, T8, T9 ), was performed exclusively by the physician of record to reduce/remove overall nail length, girth, thickness, subungual debris, and necrotic tissue, by manual and/or electrical means through the use of a nail nipper and/or dremel-type metal grinder, to a more viable healthy nail plate or bed tissue 6-10 nails in total. Silver nitrate was used for any petechial bleeding as necessary. Definitive antifungal treatment options, both pharmaceutical and surgical, have been reviewed and discussed with the patient. The patient solely prefers the use of intermittent/as needed professional debridement services for their nail condition and understands the need for additional periodic treatments to maintain effectiveness in symptomatic relief - 59021 Keratoma Treatment Parring or Cutting o f Benign Hyperkeratotic Lesion(s) (-57) More than 4 Lesions - Due to the at risk nature of the patients medical condition as documented in the exam findings, performance of this keratoderma treatment is medically necessary as its management by an unskilled/untrained nonprofessional would put this patients foot and overall health at risk. Therefore, the benign hyperkeratotic lesions, ( 8 ) in total, locations as stated and described in the exam ( TA , T3 , T4, T6, SUB MTH (s), 1, 2, B/L ), were pared, and/or cut utilizing a sterile 15 blade, tissue nippers, and/or power dremel instrumentation by the physician of record - 95299 Progress Notes * Raheem CASTRODOB:1970 ( 54 yo M)Acc No.[id number]:07/15/2024 Progress Note Patient:?CASTRO Raheem Provider:?Mary Rea DPM :1970???Age:54 Y???Sex:Male Romeo e:07/15/2024 Address:[address] [place], [place] [id number] Pcp:Geovanni Pink MD Subjective: * Chief Complaints: * ???At Risk FootcareToe Issue * HPI: ???At Risk footcare:?Pt States Last PCP Visit:?Date?08/25/2023 ?Pt had right foot hammertoe surgery by NEOPt had right foot hammertoe surgery by [facility]. ???Toe pain:?Nature:?contracture.?Location:?Great toe , Left foot.?Duration:?several months.?Onset/Cause:?gradual; after surgery for infected bone left foot from [facility].?Course:?improved.?Treatments:?medication ( abx oint ?), surgical shoe, awaiting DM shoes.? * ROS:?General/Constitutional:?Nausea?denies.?Vomiting?denies.?Hunger Thirst?denies.?Loss appetite?denies.?Chills?denies.?Fatigue?denies.?Fever?denies.?Night Sweats?denies.?Unexplained weight loss?denies.?Unexplained [...] toe [facility]- Cut of piece of toe 04/2023[facility] [place] fever- Infection in bone of toe 08/08 * Family History:?Mother: dece ased, diagnosed with Diabetic - NIDDM.?Father: .? * Social History:?Tobacco Use:?Tobacco Use/Smoking?Are you a:?nonsmoker ?Additional Findings: Tobacco Non-User?Aggressive non-smoker ?Tobacco use other than smoking?Are you an other tobacco user??No ???Miscellaneous:?Caffeine: yes, frequency: Very Occassionally soda. ?Children: yes, 1. ?Exercise: yes, occasional, walking. ?Marital status: . 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 * Medications:?TakingmetFORMIN HCl amLODIPine Besylate [...] Allergies:?N.K.D.A.yes[Aller gies Verified] Objective: * Vitals:?Ht: 5ft9in, Wt:208, BMI:30.71, Shoe size: 11, BP:135/60mm Hg, BS: 145, Ht-cm: 175.26 cm, Wt-k.35 kg. * ???Past Orders: ???Lab:HEMOGLOBIN A1C (GLYCO HEMOGLOBIN) (Order Date - 04/15/2024) (Collection Date & Time - 04/15/2024 08:53 AM) ? Value Reference Range ?HEMOGLOBIN A1C % (HH) 7.3 * Examination: ???Ophthalmology Referral: ?DIABETES EYE EXAM?Procedure Performed:?Yes ?Date of Exam Performed?05/15/2024 ?Findings of Diabetic Eye Exam:?retinopathy?Neurological: ?SENSORY:?Neurological exam [...] pain on palpation due to neuropathy , TA, T2, T3, T4, T8, T9.?Dermatologic: ?SKIN FINDINGS:?Skin exam reveals Keratotic lesion(s) located at , TA , T3 , T4, T6, SUB MTH (s), 1,?2, B/L ; no signs of infection TA.?Orthopedic: ?MUSCLE STRENGTH:?5/5 all groups in a symmetrical fashion, B/L.?BUNION:?dorsal contraction 1st MPJ left incompletely reducible to push up.?General Examination: ?GENERAL APPEARANCE:?Reveals a pleasant, alert, well nourished, well- developed, well hydrated individual, who demonstrates proper attention to hygiene/body habitus, and is in no acute distress, Pt serves as own historian for office visit today , Denies fever, chills, malaise, lymphadenopathy.?ORIENTED:?person, place, and time.?FOOT EXAM:?Lower Extremity Neurological Exam performed:?Yes ?Visual exam of foot performed:?Yes ?Date?07/15/2024??? Assessment: * Assessment: 1.?Type 2 diabetes mellitus with diabetic polyneuropathy - E11.42???2.?Contracture of toe of left foot - M20.5X2 (Primary)???Specify :Acute problem, Complicated w/ Multiple Tx Options(4)???3.?Tinea unguium - B35.1??? Plan: * Treatment: * Procedures:?Debride Nail 6-10:?Nail debridement?Due to the clinical pathology outlined in the exam findings, performance of this nail treatment is medically necessary as its management by an unskilled/untrained nonprofessional would put this patients foot and overall health at risk. Therefore, debridement to affected nail(s), as described in exam (?TA,?T2,?T3,?T4,?T8,?T9?), was performed exclusively by the physician of record to reduce/remove overall nail length, girth, thickness, subungual debris, and necrotic tissue, by manual and/or electrical means through the use of a nail nipper and/or dremel-type metal grinder, to a more viable healthy nail plate or bed tissue 6-10 nails in total. Silver nitrate was used for any petechial bleeding as necessary. Definitive antifungal treatment options, both pharmaceutical and surgical, have been reviewed and discussed with the patient. The patient solely prefers the use of intermittent/as needed professional debridement services for their nail condition and understands the need for additional periodic treatments to maintain effectiveness in symptomatic relief - 01025.?Keratoma Treatment:?Parring or Cutting of Benign Hyperkeratotic Lesion(s)?(-57) More than 4 Lesions - Due to the at risk nature of the patients medical condition as documented in the exam findings, performance of this keratoderma treatment is medically necessary as its management by an unskilled/untrained nonprofessional would put this patients foot and overall health at risk. Therefore, the benign hyperkeratotic lesions, ( 8 ) in total, locations as stated and described in the exam (?TA?,?T3?,?T4,?T6,?SUB MTH (s), 1,?2,?B/L?), were pared, and/or cut utilizing a sterile 15 blade, tissue nippers, and/or power dremel instrumentation by the physician of record - 76947.? * Procedure Codes:?19589 TRIM SKIN LESIONS, OVER 4, Modifiers: XS 63709 DEBRIDE NAIL, 6 OR MORE, Modifiers: XS * Preventive Medicine:? ??Counseling:?Discussion:?-14: Office [...] have encouraged the patient to call the office.?Digital Surgery:?EXTENSOR: Digital surgery to relocate the subluxed/dislocated MPJ with release/relocation of soft tissue was discussed with the patient. Because the deformity was flexible enough in nature, I recommended an EXTENSOR TENOTOMY AND CAPSULOTOMY FOR T A : Minimal Incision digital procedure consisting of Extensor Tendon/Joint Release was discussed with the patient, including the risks of the procedure (described below) vs not having the procedure (persistent pain, deformity, risk for skin ulceration/infection, loss of toe). We discussed the potential procedure complications including, but not limited to: pain, swelling, bleeding, scarring, numbness, infection, delayed/non healing, floppy/unstable/shorthened toe, recurrence, failure of the procedure, overcorrection leading to plantarflexed/downward positioned toe, recurrence, need for further surgery, as well as the possibility for loss of the toe itself. We discussed the use of local anesthesia, and the usual post-op course for healing. No guarentees were given. The patient verbally indicated a full understanding of the above conversation, and any other of their questions were answered to their satisfaction. The patient would like to think about surgery. Informed pt about possiblility of over correction leading to hammertoe and then risk of ulcer or amputation.?Shoe Gear Counseling:?Patient to obtain shoes hopefully soon, pt to monitor toe when be begins wearing his DMshoes for ulceration or bilstering.? * Follow Up:?2 Months * Images: * Sign off status: Completed true * Provider:?Mary Rea DPM Date:? Generated for Deedee huerta/Mike/Mirianitting on:?09/27/2024 08:32 AM EDT History and Physical Notes * HPI (History of Present Illness) Category Sub-Category Detail Notes Category Not es Toe pain Nature: contracture Location: Great toe , Left alice t Duration: several months Onset/Cause: gradual; after surge ry for infected bone left foot from [facility] Course: improved Treatments: medication ( abx oin t ), surgical shoe, awaiting DM shoes At Risk footcare Pt States Last PCP Visit: Date: 08/25/2023 Pt had right foot hammertoe surgery by FRED[facility]ICK Pt had right foot hammertoe surgery by [...] T3 , T4, T6, SUB MTH (s), 1, 2, B/L ; no signs of infection TA Orthopedic BUNION: dorsal contracti on 1st MPJ [...] today , Denies fever, chills, malaise, lymphadenopathy FOOT EXAM: Lower Extremity Neurological Exa m performed:: Yes Visual exam of foot performed:: Yes Date: 07/15/2024 ORIENTED: person, place, and t jose enrique Ophthalmology Referral DIABETES EYE EXAM Procedure Perform ed:: Yes ?Date of Exam Performed: 05/15/2024 Findings of Diabetic Eye Exam:: retinopa thy Nails NAILS are: Elongated, overg rown, dystrophic, lytic, greater than 3mm thick, discolored and friable with crumbly malodorous subungual debris , with dull to no pain on palpation due to neuropathy , TA, T2, T3, T4, T8, T9
--- NOTE | 2024-09-27 08:51 | A.OFFPC_ITS ---
Vital Signs 09/27/24 08:54 Height 5 ft 6 in Weight 216 lb 4 oz BMI 34.9 BP 130/70 Blood Pressure Location Lt brachial Position Sitting Respiration 12 Pulse 78 Pulse Source Pulse Oximeter Temp 98.4 F Temp Source Oral Pulse Oximetry (%) 96 Oxygen Delivery Method Room Air Intake Visit Reasons: f/u diabetes, HTN Intake Note: patient is scheduled for htn and dm follow up Aviation Ordnance Officer Required: No Allergies No Known Allergies Allergy (Verified 09/27/24 08:51) Medication List - Last Reconciled 09/27/24 by Geovanni Pink MD alcohol swabs (Alcohol Prep Pads) 1 pad topical .4 times a day 90 days amlodipine 5 mg PO DAILY apixaban 5 mg PO BID 90 days calcifediol ER (Rayaldee) 30 mcg PO BEDTIME 90 days dapagliflozin propanediol 10 mg PO QAM 90 days diabetic supplies, miscellan. DIABETIC SHOES everolimus (immunosuppressive) 2 mg (2 x 1 mg) PO BID 90 days insulin aspart U-100 (Novolog FlexPen U-100 Insulin aspart) 5 units (0.05 mL) subcut TIDAC 30 days insulin glargine (Lantus Solostar U-100 Insulin) 20 units (0.2 mL) subcut BEDTIME 30 days lancets (FreeStyle Lancets) As directed mirtazapine 7.5 mg PO BEDTIME mycophenolate sodium 540 mg (3 x 180 mg) PO BID 90 days pen needle, diabetic USE ONE FOUR TIMES A DAY NS rosuvastatin 10 mg PO BEDTIME Tobacco use date assessed: 11/04/23 Dental Screening Dental Screen Date: 09/25/23 HPI f/u diabetes, HTN HPI Details 54 y/o male presents to f/u diabetes, HT N. Blood pressure today 130/70, 78p. He is on amlodipine 5mg. A1c today 6.5%, improved from prior. [facility] Medical History HTN (hypertension) PAD (peripheral artery disease) CKD (chronic kidney disease) stage 3, GFR 30-59 ml/min MSSA bacteremia Osteomyelitis of third toe of left foot S/P angiogram of extremity (10/08/22) Diabetic ulcer of right foot Osteomyelitis Wound of right foot Chronic right shoulder pain Multinodular goiter Testicular cancer Bleeding internal hemorrhoids Seminoma Paresthesia and pain of extremity Type 2 diabetes mellitus with hyperglycemia, with long-term current use of insulin Type 2 diabetes mellitus with chronic kidney disease Hyperlipidemia Vaccination refused by patient Refused pneumococcal vaccination Anemia in stage 4 chronic kidney disease Acute proliferative glomerulonephritis Secondary hyperparathyroidism of renal origin Mixed dyslipidemia Peripheral vascular disease Carpal tunnel syndrome on left Diabetes mellitus with diabetic nephropathy, with long-term current use of insulin Osteomyelitis of left foot Diabetes mellitus with foot ulcer End-stage renal disease on hemodialysis Surgical History Renal transplant recipient History of amputation (01/19/23) Amputated toe of right foot (10/13/22) History of kidney transplant Kidney transplant recipient Family History Father Unknown family medical history Mother Diabetes mellitus HTN (hypertension) CVD (cardiovascular disease) History of CVA (cerebrovascular accident) Stroke Sister Diabetes mellitus Daughter No problems noted. Sister No problems noted. Sister No problems noted. Social History Household Members: Family Housing: House Do you presently have visiting nurse or other home services: No Alcohol intake: never Patient Tobacco Use Status: Never used Tobacco e-Cigarette/Vaping Use: Never Used Advance Directives Date on File: 01/16/23 service: No Current occupational status: disabled Current occupation: disability - kidney transplant. Left side dominant Cognitive needs: No Hearing needs: No Vision needs: No Questionnaire Thrive Questionnaire Date Thrive assessed: 06/24/24 BRIANNA-7 AMB Questionnaire BRIANNA-7 Date BRIANNA - 7 assessed: 06/24/24 Source: Developed by Drs. Joey Day, Martine Olea, Felipe Robles and colleagues, with an educational marium from [employer]. Review of Systems Const Denies chills, Denies fatigue, Denies fever(s), Denies headache(s) and Denies weakness ENT Denies dizziness and Denies headache(s) Card Denies dyspnea Resp Denies cough, Denies dyspnea, Denies wheezing and Denies other (shortness of breath) Musc Denies numbness and Denies tingling Neuro Denies dizziness, Denies headache(s), Denies numbness, Denies tingling and Denies weakness Psych Denies anxiety and Denies depression Endo Denies fatigue Aller/Immun Denies wheezing Physical exam (Primary Care) Vital Signs: Last Vital Signs Temp 98.4 F 09/27/24 08:54 Pulse 78 09/27/24 08:54 Resp 12 09/27/24 08:54 BP 130/70 09/27/24 08:54 Pulse Ox 96 09/27/24 08:54 Oxygen Delivery Method Room Air 09/27/24 08:54 BMI result Body Mass Index 34.9 Tobacco/Smoking Status: Tobacco use Status Tobacco use date assessed 11/04/23 09/27/24 08:55 Patient Tobacco Use Status Never used Tobacco 09/27/24 08:55 e-Cigarette/Vaping Use Never Used 09/27/24 08:55 Thrive Assessment: Date of Thrive Assessment Date Thrive assessed 06/24/24 09/27/24 08:55 Const General: well developed; No acute distress Nutritional Appearance: well nourished Orientation/consciousness: patient oriented x3 HENMT Head: Yes normocephalic and Yes atraumatic Eyes General: appearance normal, both eyes and all related structures Pupils: Equal, round and reactive pupils present EOM: EOMs intact bilaterally Resp Effort & Inspection: normal respiratory effort Neuro General: patient oriented x3 and gait normal Cranial nerves: Yes Equal, round and reactive pupils present Psych Affect: normal affect Coding Level of Care Code Est Pt Level 3 (20223) Diagnoses Type 2 diabetes mellitus with diabetic nephropathy, with long-term current use of insulin E11.21; Z79.4 Diabetes mellitus type: type 2 Renovascular hypertension I15.0 Hypertension type: renovascular hypertension Assessment & Plan Assessment & Plan (1) Diabetes mellitus with diabetic nephropathy, with long-term current use of insulin: Code(s): E11.21 - Type 2 diabetes mellitus with diabetic nephropathy; Z79.4 - intermediate (current) use of insulin Category: Medical Qualifiers: Diabetes mellitus type: type 2 Qualified Code(s): E11.21 - Type 2 diabetes mellitus with diabetic nephropathy; Z79.4 - intermediate school teacher (current) use of insulin Plan: A1c?6.5%?down?from?7.3%?after?increasing?Farxiga. Goal?is?less?than?7.0% We?also?discussed a?titer?blood?sugar?control?with?goal?around?6.5%?due?to?diabetic?retinopathy. Continue?current?medication?regimen Continue?diabetic?diet (2) HTN (hypertension): Code(s): I10 - Essential (primary) hypertension Category: Medical Qualifiers: Hypertension type: renovascular hypertension Qualified Code(s): I15.0 - Renovascular hypertension Plan: Blood?pressure?has?been?running?too?high. Will?increase?amlodipine from?5?mg?daily?to?10?mg?daily Medications: New qnjexzvlnjn-zuxp-R-C-E-aloe 3-30 % (Gold Carey Ultimate Diabetics' Foot) 1 appl topical BID 30 days 96 grams 3RF Changed From amlodipine 5 mg PO DAILY 90 tabs 4RF To amlodipine 10 mg PO DAILY 90 days 90 tabs 4RF
[2024-09-27 08:54] VITALS: BP 130/70; PULSE 78; RESP 12; TEMP 36.9; O2SAT 96; BMI 34.9
== END 2024-09-27 09:17 | disposition home or self-care (01) ==
LOC: HO.HMCFM 08:25
PROVIDERS: PCP Family Medicine; Visit Provider Family Medicine
DX: E11.21 Type 2 diabetes mellitus with diabetic nephropathy (principal); Z79.4 Long term (current) use of insulin; I15.0 Renovascular hypertension

== ENCOUNTER → 2024-09-27 08:25 | Outpatient (BNVA) | payer OTHER, SELFPAY | PROVIDERS: PCP Family Medicine; Visit Provider Family Medicine | DX: E11.21 Type 2 diabetes mellitus with diabetic nephropathy (principal); I15.0 Renovascular hypertension; Z79.4 Long term (current) use of insulin | CPT/HCPCS: 83036; 99212 ==

== ENCOUNTER 2024-10-13 07:17 | Outpatient (REF) | payer OTHER, SELFPAY ==
--- OUTSIDE RECORDS SUMMARY | 2024-10-13 07:20 | XMS_ITS | Clinical Summary ---
Author Organization Patient Business Ser [facility] Address [address] [place] [address] Care Team Providers Care Jewel Staker Name Role Phone Lianne Manuel MD Primary [...] age to complete this topic Care Teams Jewel Staker Relationship Specialty Start Date End Date Lianne Manuel MD [address] [place] [address] PCP - General Internal Medicine 01/30/22
--- OUTSIDE RECORDS SUMMARY | 2024-10-13 07:20 | XMS_ITS | Clinical Summary ---
Author Organization [facility] Address [address] [place] [address] Phone Care Team Providers Care Waste Water Operator Name Role Phone Geovanni Pink MD Primary Care Provider [phone] Allergies No known active allergies Medications amLODIPine [...] ankle and/or foot 11/20/2021 12/11/2021 Atherosclerosis of sitka ar teries of the extremities 11/20/2021 12/11/2021 [...] PM EDT Performed at: ??01 - [facility] [address] ??[id number] Facility Maintenance Worker: Debora Brian MD, Phone: ??[phone] us Skyler Banda MD LAB BLOOD ORDERABLES Final Resu lt [facility] from Last 3 Months or Most Recently Relevant to Health Maintenance Insurance [facility] ([id number]) [facility] Care Teams Waste Water Operator Relationship Specialty Start Date End Date Geovanni Pink MD [address] [place] [id number] PCP - General Family Medicine 04/23/23
--- OUTSIDE RECORDS SUMMARY | 2024-10-13 07:20 | XMS_ITS | Patient Health Record ---
Author Organization [facility] Address [address] [place] [address] Care Team Providers Care Emergency Management Coordinator Name Role Phone Geovanni Pink MD Primary Care Provider Mary Canela Unavailable [phone] Rajesh Oreilly Unavailable [phone] Allergies No Known Allergies Results Component Value Reference Range Notes HEMOGLOBIN A1C (GLYCOHEMOGLO BIN) Reviewed date:10/12/2024 09:18:31 AM Interpretation: Performing Lab: Notes/Report: HEMOGLOBIN A1C % (HH) 6.3 HEMOGLOBIN A1C (GLYCOHEMOGLO BIN) Reviewed date:07/15/2024 08:54:03 AM Interpretation: Performing Lab: Notes/Report: HEMOGLOBIN A1C % (HH) 7.3 Reason For Referral No Information Medications Medication SIG (Take, Route, Frequency, Duration) Notes Start Date End Date Status metFORMIN HCl Active Extra Depth Diabetic Shoes with 3 Pair Custom heat-molded multi-density innersoles for 1 year Dx: Not-Taking Extra Depth Orthopedic Shoes (1 Pair) with Customized Heat Molded Multidensity Innersoles (3 Pair) as directed Dx: IDDM/Polyneuropathy (E10.42), Hammertoe Foot Deformity (M20.41,M20.42), Preulcerative Skin Lesion(s) (L85.1) Not-Taking Rayaldee 30 MCG 1 capsule at bedtime Orally Once a day for 30 day(s) Active Mycophenolic Acid 3 tabs Twice day Not-Taking Losartan Potassium 28 untis Once a day Active Amoxicillin-Pot Clavulanate 875 875-125 MG one tab Orally every 12 hrs for 10 day(s) 12/04/2022 Not-Taking Lantus Active Cephalexin 500 MG 1 capsule Orally Twi ce a day for 7 days 04/17/2023 Not-Taking amLODIPine Besylate Once a day Active Cipro 500 MG 1 tablet Orally ever y 12 hrs for 7 days 04/16/2023 Not-Taking Ammonium Lactate 12 % 1 application Externally to affected areas of dry skin to feet except for between the toes Twice a day for 30 days Active Extra Depth Orthopedic Shoes (1 Pair) with Customized Heat Molded Multidensity Innersoles (3 Pair) as directed Dx: NIDDM/Polyneuropathy (E11.42), Hammertoe Foot Deformity (M20.41,M20.42), Preulcerative Skin Lesion(s) (L85.1 12/15/2023 Active Aspir-81 once a day Active Tacrolimus 4tabs Twice a day A ctive Doxycycline Monohydrate 100 MG 1 capsule Orally Twice a day for 14 days 14 adys Not-Taking Antibiotic Chest Not-Takin g Immunizations Vaccine Route Administration Date Status Comme [...] Problem Acquired hammer toe of right foot (0966815051658716) Other hammer toe(s) (acquired), right foot (M20.41) Active confirmed Problem Acquired hammer toe of left foot (3668668169330786) Other hammer toe(s) (acquired), left foot (M20.42) Active confirmed Problem Non-pressure chronic ulcer of other part of right foot with fat layer exposed (L97.512) Active confirmed Problem Chronic ulcer of foot (566040314) Non-pressure chronic ulcer of other part of left foot with fat layer exposed (L97.522) Active confirmed Problem Acquired hammer toe of right foot (5917649207870027) Other hammer toe(s) (acquired), right foot (M20.41) Active confirmed Problem Acquired hammer toe of left foot (9978881894233268) Other hammer toe(s) (acquired), left foot (M20.42) Active confirmed Problem Polyneuropathy due to type 2 diabetes mellitus (388470895) Type 2 diabetes mellitus with diabetic polyneuropathy (E11.42) Active confirmed Problem Polyneuropathy due to diabetes mellitus type I (121429311) Type 1 diabetes mellitus with diabetic polyneuropathy (E10.42) Active confirmed Problem 699942150 Hammer toe of right foot (M20.41) Active confirmed Problem 274768939 Hammer toe of left foot (M20.42) Active confirmed Problem 3514025342428909 Osteomyelitis o f foot, left, acute (M86.172) Active confirmed Problem 41168031 Non-pressure ulcer of left lower extremity with fat layer exposed (L97.922) Active confirmed Problem 31080427426076156 Atherosclerosi s of artery of both lower extremities (I70.203) Active confirmed Problem Neuropathic ulce r of right foot with fat layer exposed (L97.512) Active confirmed Response to treatment Problem 3793544355062579 Acute hematogenous osteomyelitis of left foot (M86.072) Active confirmed Problem Skin ulcer of to e of left foot with fat layer exposed (L97.522) Active confirmed Response to treatment, Nonapplica ble Problem 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) Active confirmed Response to treatment Problem 61453367707297581 Neuropathic ul cer of left foot, limited to breakdown of skin (L97.521) Active confirmed Vital Signs Blood pressure diastolic 60 mm Hg 10/12/2024 Height 5ft9in in 10/12/2024 Blood pressure systolic 135 mm Hg 10/12/2024 Weight 210 lbs 10/12/2024 BMI 31.01 kg/m2 10/12/2024 Procedures Procedure Date Ordered Date Performed Result Body Sit e 66129-PVPFOQE SKIN/TISSUE 02/11/2024 N/A Encounters Encounter Location Date Provider Diagnosis [facility] [address] [place] [address] 12/15/2023 Mary Rea Type 1 diabetes mellitus with diabetic polyneuropathy E10.42 ; Other hammer toe(s) (acquired), right foot M20.41 ; Tinea unguium B35.1 ; Atherosclerosis of artery of both lower extremities I70.203 ; Other hammer toe(s) (acquired), left foot M20.42 and Ingrown nail L60.0 [facility] [address] [place] [address] 02/11/2024 Rajesh Oreilly Skin ulcer of toe of left foot with fat layer exposed L97.522 and Type 1 diabetes mellitus with diabetic polyneuropathy E10.[address] [address] 04/14/2024 Mary Rea Type 2 diabetes mellitus with diabetic polyneuropathy E11.42 ; Contracture of toe of left foot M20.5X2 ; Tinea unguium B35.1 and Abscess of toe, left L02.[address] [address] 05/04/2024 Mary Rea Type 2 diabetes mellitus with diabetic polyneuropathy E11.42 ; Contracture of toe of left foot M20.5X2 ; Tinea unguium B35.1 and Neuropathic ulcer of left foot, limited to breakdown of skin L97.[address] [address] 07/15/2024 Mary Rea Type 2 diabetes mellitus with diabetic polyneuropathy E11.42 ; Contracture of toe of left foot M20.5X2 and Tinea unguium B35.[address] [address] 08/26/2024 Mary Rea Neurotrophic ulcer o f left foot limited to breakdown of skin L97.521 ; Xerosis of skin L85.3 and Type 2 diabetes mellitus with diabetic polyneuropathy E11.[address] [address] 10/12/2024 Mary Rea Type 1 diabetes mellitus with diabetic polyneuropathy E10.42 ; Atherosclerosis of artery of both lower extremities I70.203 ; Tinea unguium B35.1 and Neurotrophic ulcer of left foot limited to breakdown of skin L97.521 [facility] [address] [place] [address] 11/24/2023 Mary Rea [facility] [place] [address] [place] [address] 11/27/2023 Mary Rea [facility] [address] [place] [address] 02/11/2024 Mary Rea [facility] [address] [place] [address] 03/07/2024 Mary Rea Assessments Encounter Date Diagnosis [...] CARE INSTRUCTIONS. pdf (WOUND CARE INSTRUCTIONS. pdf) 10/12/2024 Type 1 diabetes mellitus with diabetic polyneuropathy (ICD-10 - E10.42) 10/12/2024 Atherosclerosis of artery of both lower extremities (ICD-10 - I70.203) 10/12/2024 Tinea unguium (ICD-10 - B35.1) 08/26/2024 Xerosis of skin (ICD-10 - L85.3) [...] mellitus with diabetic polyneuropathy (ICD-10 - E11.42) 10/12/2024 Neurotrophic ulcer of left foot limited to breakdown of skin (ICD-10 - L97.521) 12/15/2023 Other hammer toe(s) (acquired), left foot (ICD-10 - M20.42) 12/15/2023 Ingrown nail (ICD-10 - L60.0) 12/15/2023 Other 02/11/2024 Other 05/04/2024 Other Plan Of Treatment Pending Test Test Name Order Date X ray : Foot, left 3V 2020 X ray : Foot, left 3V 08/16/2021 X ray : Foot, left 3V 12/11/2022 X ray : Foot, left 3V 02/11/2024 00333-BFQLVIQ NAIL, 6 OR MORE 09/16/2021 28594-KQBZBAV SKIN/TISSUE 10/25/2021 75372-VKKWKSU SKIN/TISSUE 12/04/2022 94348-AZOLBWE SKIN/TISSUE 12/11/2022 41180-LZQKBUN SKIN/TISSUE 09/16/2021 84326-UCSZXSB SKIN/TISSUE 2020 85208-VBFQZOE SKIN/TISSUE 02/11/2024 21894-BDNH SKIN LESIONS, OVER 4 11/28/19 76281-XDPH SKIN LESIONS, OVER 4 09/17/19 22 42461-OOQGMRBM OF HEMATOMA/FLUID 023 Next Appt Details Provider Name:Mary vaughan, 12/30/2024 09:00:00 AM, [address] [place], [address], Insurance Providers Payer Name Payer Address Payer Phone Subscriber Number Group Number Insured Name Patient Relationship to Insured Coverage Start Date Coverage End Date [facility] Claims [address] [place] [id number] Raheem Castro Self - patient is the insured Medical (General) History Medical History History ICD Code Kidney disease type II diabetes Surgical History Surgery Date(Month/Year) kidney transplant 10/2016 L leg surgery 09/09/21 amputation, toe 01/2023 amputation , toe 04/2023 Toe amputation 10/14/23 hammertoe, right foot 02/2024 Hospitalization History Reason Date(Month/Year) [facility]- fever- Infection in bone of toe [facility]- Cut of piece of toe 04/2023 [facility] [place] - Cut of piece of toe 01/2023
--- OUTSIDE RECORDS SUMMARY | 2024-10-13 07:20 | XMS_ITS ---
Author Organization [facility] Address [address] [facility] [place] [facility] [place] [address] Care Team Providers Care Physician Office Assistant Name Role Phone Geovanni Pink MD Primary Care Provider Mary Canela Unavailable [phone] Allergies No Known Allergies REASON FOR VISIT [...] 025 Encounters Encounter Location Date Provider Diagnosis [facility] [place] [address] [place] [address] 08/26/2024 Mary Chaunceyclement Neurotrophic ulcer o f [...] Up: 3 Weeks, Reason: Provider Name:Mary vaughan, 12/30/2024 09:00:00 AM, [address] [place] [address], [address], Procedure Notes * Category Sub-Category Detail Notes [...] of the wound post debridement is stable (33000), The patient was instructed on importance of [...] * Raheem CASTRODOB:1970 ( 54 yo M)Acc No.[id number]:08/26/2024 Progress Note Patient:?Raheem CASTRO Provider:?Mary Rea DPM :1970???Age:54 Y???Sex:Male Romeo e:08/26/2024 Address:[address] [place] [address], [facility] Pcp:Geovanni Pink MD Subjective: * Chief Complaints: [...] yes, occasional, walking. ?Marital status: . 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 * Medications:?TakingmetFORMIN HCl amLODIPine Besylate [...] of the wound post debridement is stable (22470), The patient was instructed on importance of [...] local wound care as directed.? * Procedure Codes:?31582 ACTIV E WOUND CARE/20 CM OR <, [...] Rea DPM Date:? Generated for Deedee huerta/Mike/Ric on:?10/13/2024 07:20 AM EDT History and Physical Notes * [...]
--- OUTSIDE RECORDS SUMMARY | 2024-10-13 07:20 | XMS_ITS | Clinical Summary ---
Author Organization [facility] Address [address] [place] [address] Care Team Providers Care Powder Carrier Name Role Phone Lianne Manuel MD Primary Care Provider Social History Tobacco Use Types Packs/Day Years Used Date Smoking Tobacco: Never Assessed Sex and Gender Information Value Date Recorded Sex Assigned at Not on file Legal Sex Male 3:02 PM EDT Gender Identity Not on file Sexual Orientation Not on file Plan of Treatment Health Maintenance Due Date Last Done Comments Hepatitis C Virus Screening 1970 HIV Screening 1984 DTaP/Tdap/Td Vaccines (1 - Tdap) 1990 Pneumococcal Vaccines 50+ (1 of 2 - PCV) 1990 Hepatitis B Vaccines (1 of 3 - Risk Dialysis 4-dose series) 1991 Colonoscopy 2016 Zoster (Shingles) Vaccine (1 of 2) 2021 Influenza Vaccine 01/14/2024 02/29/2016, 02/29/2016 COVID-19 Vaccine ( season) 02/14/202401/2021, 08/25/2020 Insurance MISC MGD MEDICARE OUT OF NETWORK [place] [id number] * Guarantor: [employer] DE[employer] Account Type Relation to Patient Date of Phone Billing Address Client/Submitter Employer Care Teams Powder Carrier Relationship Specialty Start Date End Date Lianne Manuel MD [address] [place] [address] PCP - General Internal Medicine 07/10/22
--- OUTSIDE RECORDS SUMMARY | 2024-10-13 07:20 | XMS_ITS ---
Author Organization [facility] Address [address] [place] [address] Care Team Providers Care Child Protection Specialist Name Role Phone Geovanni Pink MD Primary Care Provider Mary Canela Unavailable [phone] Allergies No Known Allergies REASON FOR VISIT [...] 025 Encounters Encounter Location Date Provider Diagnosis [facility] [address] [address] 07/15/2024 Mary Rea Type 2 diabetes mellitus [...] Up: 2 Months, Reason: Provider Name:Mary vaughan, 12/30/2024 09:00:00 AM, [address] [place] [address], [phone], Procedure Notes * Category Sub-Category Detail Notes [...] use of a nail nipper and/or dremel-type level vial inside grinder, to a more viable healthy nail [...] to maintain effectiveness in symptomatic relief - 75739 Keratoma Treatment Parring or Cutting o f [...] instrumentation by the physician of record - 49679 Progress Notes * Raheem CASTRODOB:1970 ( 54 yo M)Acc No.[id number]:07/15/2024 Progress Note Patient:?CASTRO Raheem Provider:?Mary Rea DPM :1970???Age:54 Y???Sex:Male Romeo e:07/15/2024 Address:[address] [place], [place] [id number] Pcp:Geovanni Pink MD Subjective: * Chief Complaints: [...] toe [facility]- [facility] fever- Infection in bone of toe 08/08 * Family History:?Mother: dece ased, diagnosed with Diabetic - NIDDM.?Father: .? * Social History:?Tobacco Use:?Tobacco Use/Smoking?Are you a:?nonsmoker ?Additional Findings: Tobacco Non-User?Aggressive non-smoker ?Tobacco use other than smoking?Are you an other tobacco user??No ???Miscellaneous:?Caffeine: yes, frequency: Very Occassionally soda. ?Children: yes, 1. ?Exercise: yes, occasional, walking. ?Marital status: . 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 * Medications:?TakingmetFORMIN HCl amLODIPine Besylate [...] use of a nail nipper and/or dremel-type level vial inside grinder, to a more viable healthy nail [...] to maintain effectiveness in symptomatic relief - 45613.?Keratoma Treatment:?Parring or Cutting of Benign Hyperkeratotic Lesion(s)?(-57) [...] instrumentation by the physician of record - 84079.? * Procedure Codes:?07215 TRIM SKIN LESIONS, OVER 4, Modifiers: XS 43593 DEBRIDE NAIL, 6 OR MORE, Modifiers: XS [...] Rea DPM Date:? Generated for Deedee huerta/Mike/Mirianitting on:?10/13/2024 07:20 AM EDT History and Physical [...]
--- OUTSIDE RECORDS SUMMARY | 2024-10-13 07:21 | XMS_ITS ---
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 Name Role Phone Geovanni Pink MD Primary Care Provider Mary Canela Unavailable [phone] Allergies No Known Allergies REASON FOR VISIT At Risk Footcare, Open sore Medications Medication SIG (Take, Route, Frequency, Duration) Notes Start Date End Date Status Rayaldee 30 MCG 1 capsule at bedtime Orally Once a day for 30 day(s) Active Losartan Potassium 28 untis Once a day Active Extra Depth Orthopedic Shoes (1 Pair) with Customized Heat Molded Multidensity Innersoles (3 Pair) as directed Dx: NIDDM/Polyneuropathy (E11.42), Hammertoe Foot Deformity (M20.41,M20.42), Preulcerative Skin Lesion(s) (L85.1 12/15/2023 Active Aspir-81 once a day Active Tacrolimus 4tabs Twice a day A ctive metFORMIN HCl Active Mycophenolic Acid 3 tabs Twice day Not-Taking Lantus Active amLODIPine Besylate Once a day Active Doxycycline Monohydrate 100 MG 1 capsule Orally Twice a day for 14 days 14 adys Not-Taking Extra Depth Diabetic Shoes with 3 Pair Custom heat-molded multi-density innersoles for 1 year Dx: Not-Taking Extra Depth Orthopedic Shoes (1 Pair) with Customized Heat Molded Multidensity Innersoles (3 Pair) as directed Dx: IDDM/Polyneuropathy (E10.42), Hammertoe Foot Deformity (M20.41,M20.42), Preulcerative Skin Lesion(s) (L85.1) Not-Taking Amoxicillin-Pot Clavulanate 875 875-125 MG one tab Orally every 12 hrs for 10 day(s) 12/04/2022 Not-Taking Cephalexin 500 MG 1 capsule Orally Twi ce a day for 7 days 04/17/2023 Not-Taking Cipro 500 MG 1 tablet Orally ever y 12 hrs for 7 days 04/16/2023 Not-Taking Ammonium Lactate 12 % 1 application Externally to affected areas of dry skin to feet except for between the toes Twice a day for 30 days Active Antibiotic Chest Not-Takgiselle patton Social History Tobacco Use: Social History Observation Description Date Details (start date - stop date) Never Smoker NA - NA Tobacco Use/Smoking Question Answer Notes Are you a: nonsmoker Additional Findings: Tobacco Non-User Aggressive non-smoker Tobacco use other than smoking: Question Answer Notes Are you an other tobacco user? 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 L97.521 Assessments Encounter Date Diagnosis (ICD Code) Assessment Notes Treatment Notes Treatment Clinical Notes Section Notes 10/12/2024 Type 1 diabetes mellitus with diabetic polyneuropathy (ICD-10 - E10.42) 10/12/2024 Atherosclerosis of artery of both lower extremities (ICD-10 - I70.203) 10/12/2024 Tinea unguium (ICD-10 - B35.1) 10/12/2024 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 Post debridement measurements: 2 mm x 3 mm x 2 mm. Character of the wound post debridement is stable (23981), The patient is to cleanse the wound with warm soapy water/peroxide/saline or betadine BID based on product availability, The patient is to apply Antibiotic Oint. to the wound and cover with a DSD, The patient was instructed to change dressings according to orders or PRN saturation, leaks, The patient was instructed to monitor and report any signs or symptoms of infection or any untoward reactions, The patient is to cont the local wound care as directed till condition is completely healed Keratoma Treatment Parring or Cutting o f Benign Hyperkeratotic Lesion(s) (-57) More than 4 Lesions - Due to the at risk nature of the patients medical condition as documented in the exam findings, performance of this keratoderma treatment is medically necessary as its management by an unskilled/untrained nonprofessional would put this patients foot and overall health at risk. Therefore, the benign hyperkeratotic lesions, (5) in total, locations as stated and described in the exam ( SUB MTH (s), 1, 2, 5, Left, SUB MTH (s), 1, 5, Right ), were pared, and/or cut utilizing a sterile 15 blade, tissue nippers, and/or power dremel instrumentation by the physician of record - 16784 Progress Notes * CASTRO, RaheemDOB:1970 ( 54 yo M)Acc No.[id number]:10/12/2024 Progress Note Patient:?Raheem CASTRO Provider:?Mary Rea DPM :1970???Age:54 Y???Sex:Male Romeo e:10/12/2024 Address:[address] [place], [place] [id number] Pcp:Geovanni Pink MD Subjective: * Chief Complaints: * ???At Risk FootcareOpen sore * HPI: ???At Risk footcare:?Pt States Last PCP Visit:?Date?08/25/2023 * ROS:?General/Constitutional:?Nausea?denies.?Vomiting?denies.?Hunger Thirst?denies.?Loss appetite?denies.?Chills?denies.?Fatigue?denies.?Fever?denies.?Night Sweats?denies.?Unexplained weight loss?denies.?Unexplained [...] yes, occasional, walking. ?Marital status: . 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 * Medications:?TakingmetFORMIN HCl amLODIPine Besylate [...] Foot Deformity (M20.41,M20.42), Preulcerative Skin Lesion(s) (L85.1 Ammonium Lactate 12 % Cream 1 application Externally to affected areas of dry skin to feet except for between the toes Twice a day Taking metFORMIN HCl Taking amLODIPine Besylate Once [...] Deformity (M20.41,M20.42), Preulcerative Skin Lesion(s) (L85.1 Taking Ammonium Lactate 12 % Cream 1 application Externally to affected areas of dry skin to feet except for between the toes Twice a day Not-Taking/PRNAntibiotic , Notes to Pharmacist: ChestExtra Depth [...] Vitals:?Ht: 5ft9in, Wt:210, BMI:31.01, Shoe size: 11, BP:135/60mm Hg, BS: 145, Ht-cm: 175.26 cm, Wt-k.26 kg. * ???Past Orders: ???Lab:HEMOGLOBIN A1C (GLYCO HEMOGLOBIN) (Order Date - 09/13/2024) (Collection Date & Time - 09/13/2024 09:17 AM) ? Value Reference Range ?HEMOGLOBIN A1C % (HH) 6.3 * Examination: ???Ophthalmology Referral: ?DIABETES EYE EXAM?Procedure Performed:?Yes ?Date of Exam Performed?06/15/2024 ?Findings of Diabetic Eye Exam:?retinopathy?Dermatologic: ?SKIN FINDINGS:?Skin exam reveals Keratotic lesion(s) located at, SUB MTH (s), 1, 2, 5, Left, SUB MTH (s), 1, 5, Right.?ULCER:?LOCATION, plantar 1st met head??LEFT, SIZE, 2mm X 2mm X 2mm, BASE, granular, RIM, [...] varied sites per foot shows sensation, reduced, B/L.?General Examination: ?GENERAL APPEARANCE:?Reveals a pleasant, alert, well nourished, well- developed, well hydrated individual, who demonstrates proper attention to hygiene/body habitus, and is in no acute distress, Pt serves as own historian for office visit today.?ORIENTED:?person, place, and time.?FOOT EXAM:?Lower Extremity Neurological Exam performed:?Yes ?Visual exam of foot performed:?Yes ?Date?10/12/2024 ?Footwear Evaluation?Footwear Evaluation performed:?Yes?Nails: ?NAILS are:?Elongated, overgrown, dystrophic, lytic, greater than 3mm thick, discolored and friable with crumbly malodorous subungual debris , with dull to no pain on palpation due to neuropathy , TA, T2, T3, T4, T8, T9.?Orthopedic: ?MUSCLE STRENGTH:?5/5 all groups in a symmetrical fashion, B/L.?FOOTWEAR EVALUATION:?fair condition.? 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 Plan: * Treatment: * Procedures:?Debride Nail 6-10:?Nail [...] use of a nail nipper and/or dremel-type universal grinder set up operator, to a more viable healthy nail plate [...] to maintain effectiveness in symptomatic relief - 52469.?Debride skin< 25 sq cm:?Open wound?NEUROPATHY: Physician of [...] to presence of NEUROPATHY. Post debridement measurements: 2 mm x 3 mm x 2 mm. Character of the wound post debridement is stable (53086), The patient is to cleanse the wound with warm soapy water/peroxide/saline or betadine BID based on product availability, The patient is to apply Antibiotic Oint. to the wound and cover with a DSD, The patient was instructed to change dressings according to orders or PRN saturation, leaks, The patient was instructed to monitor and report any signs or symptoms of infection or any untoward reactions, The patient is to cont the local wound care as directed till condition is completely healed.?Keratoma Treatment:?Parring or Cutting of Benign Hyperkeratotic Lesion(s)?(-57) More than 4 Lesions - Due to the at risk nature of the patients medical condition as documented in the exam findings, performance of this keratoderma treatment is medically necessary as its management by an unskilled/untrained nonprofessional would put this patients foot and overall health at risk. Therefore, the benign hyperkeratotic lesions, (5) in total, locations as stated and described in the exam (?SUB MTH (s),?1,?2,?5,?Left,?SUB MTH (s),?1,?5,?Right?), were pared, and/or cut utilizing a sterile 15 blade, tissue nippers, and/or power dremel instrumentation by the physician of record - 77160.? * Procedure Codes:?37085 DEBRI DE NAIL, 6 OR MORE, Modifiers: XS 08559 TRIM SKIN LESIONS, OVER 4, Modifiers: XS 21020 ACTIVE WOUND CARE/20 CM OR <, Modifiers: XS * Preventive Medicine:? ??Screening/Special Tests:?Fall Risk?Screening:?No falls in the past year ?FALLS: Screening for Future Fall Risk?Have you had two or more falls in the past year??No ?Have you had any falls with injury in the past year??No * Follow Up:?2 Months * Images: * Sign off status: Completed true * Provider:?Mary Rea DPM Date:? Generated for Deedee huerta/Mike/Ric on:?10/13/2024 07:20 AM EDT History and Physical Notes * HPI (History of Present Illness) Category Sub-Category Detail Notes Category Not es At Risk footcare Pt States Last PCP Visit: Date: 4 Examination Category Sub-Category Detail Notes Category Not es Neurological SENSORY: Neurological exa m demonstrates, reduced light touch sensation, reduced sharp/dull discrimination , reduced vibration sensation, in a stocking fashion, B/L, 5.07 monofilament test performed at plantar aspects of 5 varied sites per foot shows sensation, reduced, B/L Dermatologic SKIN FINDINGS: Skin exam reveal s Keratotic lesion(s) located at, SUB MTH (s), 1, 2, 5, Left, SUB MTH (s), 1, 5, Right ULCER: LOCATION, plantar 1s t met head LEFT, SIZE, 2mm X 2mm X 2mm, BASE, granular, RIM, hyperkeratotic, UNDERMINING, absent, TRACKING, Full thickness breakdown of skin, DRAINAGE, serosanguineous, mild, NECROTIC TISSUE, loosely-adherent, yellow slough, MALODOR, absent, CALOR, absent, ERYTHEMA, absent Orthopedic FOOTWEAR EVALUATION: fair condition MUSCLE STRENGTH: 5/5 all groups in a symmetrical fashion, B/L General Examination GENERAL APPEARANCE: Reveals a pleasant, alert, well nourished, well-developed, well hydrated individual, who demonstrates proper attention to hygiene/body habitus, and is in no acute distress, Pt serves as own historian for office visit today FOOT EXAM: Lower Extremity Neurological Exa m performed:: Yes Visual exam of foot performed:: Yes Date: 10/12/2024 ORIENTED: person, place, and t jose enrique Footwear Evaluation Footwear Evaluation performe d:: Yes Ophthalmology Referral DIABETES EYE EXAM Procedure Perform ed:: Yes ?Date of Exam Performed: 06/15/2024 Findings of Diabetic Eye Exam:: retinopa thy Nails NAILS are: Elongated, overg rown, dystrophic, lytic, greater than 3mm thick, discolored and friable with crumbly malodorous subungual debris , with dull to no pain on palpation due to neuropathy , TA, T2, T3, T4, T8, T9
[2024-10-13 07:42] LABS: MANUAL DIFF FLAG NO
[2024-10-13 08:08] LABS: Basophils Percent Auto 0.2 % (0-2); Eosinophils Absolute Auto 0.1 X10*3/uL (0.0-0.4); Hematocrit 47.4 % (42.0-52.0); Hemoglobin 15.6 g/dl (14.0-18.0); Imm Gran Abs Auto 0.07 X10*3/uL (0.00-0.03); Imm Gran Pct Auto 0.9 % (0.0-0.4); Lymphocytes Absolute Auto 1.9 X10*3/uL (1.2-4.9); Lymphocytes Percent Auto 23.2 % (20-40); Mean Corpuscular HGB Conc 32.9 g/dl (31.0-36.0); Mean Corpuscular Hemoglobin 28.6 pg (27.0-33.0); Mean Corpuscular Volume 86.8 fL (80.0-98.0); Mean Platelet Volume 11.1 fL (9.4-12.4); Monocytes Absolute Auto 0.9 X10*3/uL (0.1-1.2); Monocytes Percent Auto 11.3 % (2-11); Neutrophils Absolute Auto 5.1 x10*3/uL (2.0-8.3); Neutrophils Percent Auto 63.4 % (45-73); Platelet Count 182 X10*3/uL (160-400); Red Blood Count 5.46 X10*6/uL (4.60-5.80); Red Cell Distribution Width 14.5 % (11.0-16.0); White Blood Count 8.1 X10*3/uL (4.8-10.8)
[2024-10-13 08:39] LABS: Parathyroid Hormone Intact 167.1 pg/mL (8.7-77.1)
[2024-10-13 08:47] LABS: Alanine Aminotransferase 15 U/L (0-40); Anion Gap 13 (12-20); Aspartate Amino Transferase 22 U/L (5-37); Blood Urea Nitrogen 18 mg/dL (9-16); Calcium 9.3 mg/dL (8.4-10.2); Carbon Dioxide 25 mmol/L (22-29); Chloride 107 mmol/L (96-108); Estimated Glomerular Filt Rate 40; Magnesium 2.2 mg/dL (1.6-2.6); Phosphorus 2.9 mg/dL (2.7-4.5); Potassium 3.4 mmol/L (3.3-5.1); Sodium 142 mmol/L (135-145)
[2024-10-13 08:57] LABS: Creatinine Urine 96.29 mg/dL; Protein/Creatinine Ratio, Ur 0.49 (<0.2); Total Protein Urine Random 47 mg/dL (<12)
[2024-10-13 09:04] LABS: Vitamin D 25-OH Total 46.5 ng/mL (>30)
[2024-10-16 10:44] LABS: Everolimus 6.1 ng/mL (see note)
== END 2024-10-13 07:18 | disposition home or self-care (01) ==
LOC: HO.LAB 07:17
PROVIDERS: PCP Family Medicine; Visit Provider Internal Medicine Nephrology
DX: Z94.0 Kidney transplant status (principal)
CPT/HCPCS: 36415; 80051; 80169; 82306; 82310; 82565; 82570; 83735; 83970; 84100; 84156; 84450; 84460; 84520; 85025

== ENCOUNTER 2024-10-14 09:25 | Outpatient (AMB) | payer OTHER, SELFPAY ==
[2024-10-14 09:28] VITALS: BP 124/70; PULSE 68; O2SAT 99; BMI 35.1
--- NOTE | 2024-10-14 09:28 | HO.NEPHOV ---
Vital Signs 10/14/24 09:28 Height 5 ft 6 in Weight 217 lb 8 oz BMI 35.1 BP 124/70 Blood Pressure Location Lt brachial Position Sitting Pulse 68 Pulse Source Pulse Oximeter Pulse Oximetry (%) 99 Oxygen Delivery Method Room Air Intake Visit Reasons: Hypertension-Conf Director Talent Management Required: No Accompanied by: Self / Same As Patient Allergies No Known Allergies Allergy (Verified 10/14/24 09:30) Do you need a note to return to daycare/school/sports/work: No HPI Comments Details: Raheem Castro is 54 years with type 2 diabetes mellitus on insulin, chronic kidney disease s/p living donor renal transplant from who also has H/O treated seminoma post transplant. He had his hammer toe fixed on Sep by Dr Aydee Diaz in [facility]. He denied any chills, nausea, vomiting, dizziness or palpitations. He denied any cardiopulmonary, gastrointestinal or genitourinary symptoms. Renal function is around baseline. His blood sugar is fair. There were no new other active complaints at the time of this office visit [facility] Medical History HTN (hypertension) PAD (peripheral artery disease) CKD (chronic kidney disease) stage 3, GFR 30-59 ml/min MSSA bacteremia Osteomyelitis of third toe of left foot S/P angiogram of extremity (10/08/22) Diabetic ulcer of right foot Osteomyelitis Wound of right foot Chronic right shoulder pain Multinodular goiter Testicular cancer Bleeding internal hemorrhoids Seminoma Paresthesia and pain of extremity Type 2 diabetes mellitus with hyperglycemia, with long-term current use of insulin Type 2 diabetes mellitus with chronic kidney disease Hyperlipidemia Vaccination refused by patient Refused pneumococcal vaccination Anemia in stage 4 chronic kidney disease Acute proliferative glomerulonephritis Secondary hyperparathyroidism of renal origin Mixed dyslipidemia Peripheral vascular disease Carpal tunnel syndrome on left Diabetes mellitus with diabetic nephropathy, with long-term current use of insulin Osteomyelitis of left foot Diabetes mellitus with foot ulcer End-stage renal disease on hemodialysis Surgical History Renal transplant recipient History of amputation (01/19/23) Amputated toe of right foot (10/13/22) History of kidney transplant Kidney transplant recipient Family History Father Unknown family medical history Mother Diabetes mellitus HTN (hypertension) CVD (cardiovascular disease) History of CVA (cerebrovascular accident) Stroke Sister Diabetes mellitus Daughter No problems noted. Sister No problems noted. Sister No problems noted. Social History Household Members: Family Housing: House Do you presently have visiting nurse or other home services: No Alcohol intake: never Patient Tobacco Use Status: Never used Tobacco e-Cigarette/Vaping Use: Never Used Advance Directives Date on File: 01/16/23 service: No Current occupational status: disabled Current occupation: disability - kidney transplant. Left side dominant Cognitive needs: No Hearing needs: No Vision needs: No Review of Systems Const All systems reviewed & are unremarkable except as noted in HPI and below Physical Exam Vital Signs: Last Vital Signs Pulse 68 10/14/24 09:28 BP 124/70 10/14/24 09:28 Pulse Ox 99 10/14/24 09:28 Oxygen Delivery Method Room Air 10/14/24 09:28 BMI result Body Mass Index 35.1 Const General: comfortable and no acute distress Orientation/consciousness: patient oriented x3 HEENT Head: Yes normocephalic Mouth: Normal oral and palatal mucosa present Eyes EOM: EOMs intact bilaterally Neck Neck: Yes supple Resp Auscultation: clear to auscultation bilaterally Cardio Jugular venous distension: no JVD Rate: regular rate GI Palpation (GI): Soft to palpation Auscultation: normal bowel sounds General: Yes no CVA tenderness Back/Spine/Pelvis Back: no CVA tenderness Skin General skin exam: no rashes or lesions noted Neuro General: patient oriented x3 and moves all extremities Results Reviewed Nephrology Results: Hgb 15.6 g/dl (14.0-18.0) 10/13/24 WBC 8.1 X10*3/uL (4.8-10.8) 10/13/24 Plt Count 182 X10*3/uL (160-400) 10/13/24 Sodium 142 mmol/L (135-145) 10/13/24 Potassium 3.4 mmol/L (3.3-5.1) 10/13/24 Chloride 107 mmol/L (96-108) 10/13/24 Carbon Dioxide 25 mmol/L (22-29) 10/13/24 BUN 18 mg/dL (9-16) H 10/13/24 Creatinine 1.77 mg/dL (0.5-1.4) H 10/13/24 Calcium 9.3 mg/dL (8.4-10.2) 10/13/24 Phosphorus 2.9 mg/dL (2.7-4.5) 10/13/24 PTH Intact 167.1 pg/mL (8.7-77.1) H 10/13/24 Urine Creatinine 96.29 mg/dL 10/13/24 Protein/Creatinin Ratio 0.49 (<0.2) H 10/13/24 Assessment & Plan Assessment & Plan (1) HTN (hypertension): Code(s): I10 - Essential (primary) hypertension Category: Medical Qualifiers: Hypertension type: renovascular hypertension Qualified Code(s): I15.0 - Renovascular hypertension (2) Renal transplant recipient: Code(s): Z94.0 - Kidney transplant status Category: Surgical Plan Transplant renal function at baseline C/W current dose of MMF C/W Everolimus to 1 mg AM and 2 mg PM Needs better BS control @ home No NSAID's and good hydration Already on SGLT 2 i; May need to increase Rayaldee @ next visit C/W rest of current management for now Needs annual dermatology visit All questions answered; F/U given Orders: Orders Complete Blood Count Auto Diff 2 Months I15.0 - Renovascular hypertension, Z94.0 - Kidney transplant status Electrolytes Today I15.0 - Renovascular hypertension, Z94.0 - Kidney transplant status Calcium Today I15.0 - Renovascular hypertension, Z94.0 - Kidney transplant status Phosphorus Today I15.0 - Renovascular hypertension, Z94.0 - Kidney transplant status Vitamin D 25-OH Total Today I15.0 - Renovascular hypertension, Z94.0 - Kidney transplant status Other Ref Test - Misc Today I15.0 - Renovascular hypertension, Z94.0 - Kidney transplant status Creatinine Today I15.0 - Renovascular hypertension, Z94.0 - Kidney transplant status Blood Urea Nitrogen Today I15.0 - Renovascular hypertension, Z94.0 - Kidney transplant status Magnesium Today I15.0 - Renovascular hypertension, Z94.0 - Kidney transplant status Coding Level of Care Code Est Pt Level 4 (08998) Diagnoses Renovascular hypertension I15.0 Hypertension type: renovascular hypertension Renal transplant recipient Z94.0
--- OUTSIDE RECORDS SUMMARY | 2024-10-14 10:12 | XMS_ITS | Patient Health Record ---
Author Organization [facility] Address [address] [facility] [place] [address] Care Team Providers Care Catalyst Manufacturing Operator Name Role Phone Geovanni Pink MD Primary Care Provider Mary Canela Unavailable [phone] Rajesh Oreilly Unavailable [phone] Allergies No Known Allergies Results Component Value Reference Range Notes HEMOGLOBIN A1C (GLYCOHEMOGLO BIN) Reviewed date:07/15/2024 08:54:03 AM Interpretation: Performing Lab: Notes/Report: HEMOGLOBIN A1C % (HH) 7.3 HEMOGLOBIN A1C (GLYCOHEMOGLO BIN) Reviewed date:10/12/2024 09:18:31 AM Interpretation: Performing Lab: Notes/Report: HEMOGLOBIN A1C % (HH) 6.3 Reason For Referral No Information Medications Medication [...] Problem Acquired hammer toe of right foot (4324721833535073) Other hammer toe(s) (acquired), right foot (M20.41) Active confirmed Problem Acquired hammer toe of left foot (8871924515745860) Other hammer toe(s) (acquired), left foot (M20.42) Active confirmed Problem Non-pressure chronic ulcer of other part of right foot with fat layer exposed (L97.512) Active confirmed Problem Chronic ulcer of foot (229086237) Non-pressure chronic ulcer of other part of left foot with fat layer exposed (L97.522) Active confirmed Problem Acquired hammer toe of right foot (7497468289736535) Other hammer toe(s) (acquired), right foot (M20.41) Active confirmed Problem Acquired hammer toe of left foot (4274483548195103) Other hammer toe(s) (acquired), left foot (M20.42) Active confirmed Problem Polyneuropathy due to type 2 diabetes mellitus (505759132) Type 2 diabetes mellitus with diabetic polyneuropathy (E11.42) Active confirmed Problem Polyneuropathy due to diabetes mellitus type I (771993099) Type 1 diabetes mellitus with diabetic polyneuropathy (E10.42) Active confirmed Problem 792129515 Hammer toe of right foot (M20.41) Active confirmed Problem 209688047 Hammer toe of left foot (M20.42) Active confirmed Problem 5478248933652320 Osteomyelitis o f foot, left, acute (M86.172) Active confirmed Problem 23330818 Non-pressure ulcer of left lower extremity with fat layer exposed (L97.922) Active confirmed Problem 80703070602667922 Atherosclerosi s of artery of both lower extremities (I70.203) Active confirmed Problem Neuropathic ulce r of right foot with fat layer exposed (L97.512) Active confirmed Response to treatment Problem 4802621407531848 Acute hematogenous osteomyelitis of left foot (M86.072) Active confirmed Problem Skin ulcer of to e of left foot with fat layer exposed (L97.522) Active confirmed Response to treatment, Nonapplica ble Problem 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) Active confirmed Response to treatment Problem 23957259048500756 Neuropathic ul cer of left foot, limited to breakdown of skin (L97.521) Active confirmed Vital Signs Blood pressure diastolic 60 mm Hg 10/12/2024 Height 5ft9in in 10/12/2024 Blood pressure systolic 135 mm Hg 10/12/2024 Weight 210 lbs 10/12/2024 BMI 31.01 kg/m2 10/12/2024 Procedures Procedure Date Ordered Date Performed Result Body Sit e 07510-VXTROXF SKIN/TISSUE 02/11/2024 N/A Encounters Encounter Location Date Provider Diagnosis [facility] [place] [address] [place] [address] 12/15/2023 Mary Rea Type 1 diabetes mellitus with diabetic polyneuropathy E10.42 ; Other hammer toe(s) (acquired), right foot M20.41 ; Tinea unguium B35.1 ; Atherosclerosis of artery of both lower extremities I70.203 ; Other hammer toe(s) (acquired), left foot M20.42 and Ingrown nail L60.0 [facility] [address] [facility] [address] [place] [address] 02/11/2024 Rajesh Oreilly Skin ulcer of toe of left foot with fat layer exposed L97.522 and Type 1 diabetes mellitus with diabetic polyneuropathy E10.[address] [address] 04/14/2024 Mary Rea Type 2 diabetes mellitus with diabetic polyneuropathy E11.42 ; Contracture of toe of left foot M20.5X2 ; Tinea unguium B35.1 and Abscess of toe, left L02.[address] [address] 05/04/2024 Mary Rea Type 2 diabetes mellitus with diabetic polyneuropathy E11.42 ; Contracture of toe of left foot M20.5X2 ; Tinea unguium B35.1 and Neuropathic ulcer of left foot, limited to breakdown of skin L97.[address] [address] 07/15/2024 Mary Rea Type 2 diabetes mellitus with diabetic polyneuropathy E11.42 ; Contracture of toe of left foot M20.5X2 and Tinea unguium B35.[address] [address] 08/26/2024 Mary Rea Neurotrophic ulcer o f left foot limited to breakdown of skin L97.521 ; Xerosis of skin L85.3 and Type 2 diabetes mellitus with diabetic polyneuropathy E11.[address] [address] 10/12/2024 Mary Rea Type 1 diabetes mellitus with diabetic polyneuropathy E10.42 ; Atherosclerosis of artery of both lower extremities I70.203 ; Tinea unguium B35.1 and Neurotrophic ulcer of left foot limited to breakdown of skin L97.521 [facility] [place] [address] [place] [address] 11/24/2023 Mary Rea [facility] [place] [address] [facility] [address] [place] [address] 11/27/2023 Mary Rea [facility] [place] [address] [place] [address] 02/11/2024 Mary Rea [facility] [place] [address] [place] [address] 03/07/2024 Mary Rea Assessments Encounter Date Diagnosis [...] X ray : Foot, left 3V 02/11/2024 50669-CQFQOJT NAIL, 6 OR MORE 09/16/2021 71043-DQMGERO SKIN/TISSUE 10/25/2021 21172-CJDZVUM SKIN/TISSUE 12/04/2022 57442-KHGQDLQ SKIN/TISSUE 12/11/2022 59305-UJFKKZD SKIN/TISSUE 09/16/2021 57415-OKTFNKO SKIN/TISSUE 2020 40013-WCRCHCF SKIN/TISSUE 02/11/2024 72364-VHCF SKIN LESIONS, OVER 4 11/28/19 39258-VEUW SKIN LESIONS, OVER 4 09/17/19 22 61544-LUJPVDGS OF HEMATOMA/FLUID 023 Next Appt Details Provider Name:Mary vaughan, 12/30/2024 09:00:00 AM, [address] [place], [address], Insurance Providers Payer Name Payer Address Payer Phone Subscriber Number Group Number Insured Name Patient Relationship to Insured Coverage Start Date Coverage End Date [facility] [employer] Claims [address] [place] [id number] Raheem Castro Self - patient is the insured Medical (General) History Medical History History ICD Code Kidney disease type II diabetes Surgical History Surgery Date(Month/Year) kidney transplant 10/2016 L leg surgery 09/09/21 amputation, toe 01/2023 amputation , toe 04/2023 Toe amputation 10/14/23 hammertoe, right foot 02/2024 [place] History Reason [place] [facility] [place]- [place] [facility] [facility] [place] [facility] [place]23
--- OUTSIDE RECORDS SUMMARY | 2024-10-14 10:12 | XMS_ITS | Clinical Summary ---
Author Organization Patient Business Ser [facility] Address [address] [place] [address] Care Team Providers Care Liquid Waste Treatment Plant Operator Name Role Phone Lianne Manuel MD [...] age to complete this topic Care Teams Liquid Waste Treatment Plant Operator Relationship Specialty Start Date End Date Lianne Manuel MD [address] [place] [address] PCP - General Internal Medicine 01/30/22
--- OUTSIDE RECORDS SUMMARY | 2024-10-14 10:12 | XMS_ITS | Clinical Summary ---
Author Organization [facility] Address [address] [facility] [address] [place] [address] Phone Care Team Providers Care Stock Car Driver Name Role Phone Geovanni Pink MD Primary Care Provider [phone] Allergies No known active allergies Medications amLODIPine [...] ankle and/or foot 11/20/2021 12/11/2021 Atherosclerosis of [place] ar teries of the extremities 11/20/2021 12/11/2021 [...] PM EDT Performed at: ??01 - [facility] [address] ??[id number] Banquet Cook: Debora Brian MD, Phone: ??[phone] us Skyler Banda MD LAB BLOOD ORDERABLES Final Resu lt [facility] from Last 3 Months or Most Recently Relevant to Health Maintenance Insurance [facility] ([id number]) [facility] Care Teams Stock Car Driver Relationship Specialty Start Date End Date Geovanni Pink MD [address] [place] [address] PCP - General Family Medicine 04/23/23
--- OUTSIDE RECORDS SUMMARY | 2024-10-14 10:12 | XMS_ITS ---
Author Organization [facility] [place] Address [address] [place] [address] Care Team Providers Care Senior Consulting Manager Name Role Phone Geovanni Pink MD Primary Care Provider Mary Canela Unavailable [phone] Allergies No Known Allergies REASON FOR VISIT [...] 025 Encounters Encounter Location Date Provider Diagnosis [facility] [place] [address] [place] [address] 08/26/2024 Mary Chaunceyclement Neurotrophic ulcer o f [...] Reason: Provider Name:Mary vaughan, 12/30/2024 09:00:00 AM, [address] [place] [address], [address], Procedure Notes * Category Sub-Category Detail Notes [...] of the wound post debridement is stable (67663), The patient was instructed on importance of [...] * Raheem CASTRODOB:1970 ( 54 yo M)Acc No.[id number]:08/26/2024 Progress Note Patient:?Raheem CASTRO Provider:?Mray Rea DPM :1970???Age:54 Y???Sex:Male Romeo e:08/26/2024 Address:[address] [place] [address], [facility] Pcp:Geovanni Pink MD Subjective: * Chief Complaints: [...] yes, occasional, walking. ?Marital status: . 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 * Medications:?TakingmetFORMIN HCl amLODIPine [...] of the wound post debridement is stable (28087), The patient was instructed on importance of [...] local wound care as directed.? * Procedure Codes:?32679 ACTIV E WOUND CARE/20 CM OR <, [...] Rea DPM Date:? Generated for Deedee huerta/Mike/Ric on:?10/14/2024 10:12 AM EDT History and Physical Notes * [...]
--- OUTSIDE RECORDS SUMMARY | 2024-10-14 10:13 | XMS_ITS | Clinical Summary ---
Author Organization [facility] Address [address] [place] [address] Care Team Providers Care Vice President Of Manufacturing Name Role Phone Lianne Manuel MD Primary Care Provider [phone] Social History Tobacco Use Types Packs/Day Years [...] MGD MEDICARE OUT OF NETWORK [place] FARIA [id number] * Guarantor: FRAUD W[employer]E ABUSE DEPT Account Type Relation to Patient Date of Phone Billing Address Client/Submitter Employer Care Teams Vice President Of Manufacturing Relationship Specialty Start Date End Date Lianne Manuel MD [address] [place] [address] PCP - General Internal Medicine 07/10/22
--- OUTSIDE RECORDS SUMMARY | 2024-10-14 10:13 | XMS_ITS ---
Author Organization [facility] [place] Address [address] [place] [address] Care Team Providers Care Life Scientist Name Role Phone Geovanni Pink MD Primary Care Provider Mary Canela Unavailable [phone] Allergies No Known Allergies REASON FOR VISIT [...] 025 Encounters Encounter Location Date Provider Diagnosis [facility] [place] [address] [place] [address] 10/12/2024 Mary Rea Type 1 diabetes mellitus [...] Provider Name:Mary vaughan, 12/30/2024 09:00:00 AM, [address] [place], [address], Procedure Notes * Category Sub-Category Detail Notes [...] use of a nail nipper and/or dremel-type tap grinder, to a more viable healthy nail [...] to maintain effectiveness in symptomatic relief - 97372 Debride skin< 25 sq cm Open wound [...] of the wound post debridement is stable (91081), The patient is to cleanse the wound [...] instrumentation by the physician of record - 22298 Progress Notes * CASTRO, RaheemDOB:1970 ( 54 yo M)Acc No.[id number]:10/12/2024 Progress Note Patient:?Raheem CASTRO Provider:?Mary Rea DPM :1970???Age:54 Y???Sex:Male Romeo e:10/12/2024 Address:[address] [place], [place] [address] Pcp:Geovanni Pink MD Subjective: * Chief Complaints: [...] yes, occasional, walking. ?Marital status: . 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 * Medications:?TakingmetFORMIN HCl amLODIPine Besylate [...] use of a nail nipper and/or dremel-type tap grinder, to a more viable healthy nail [...] to maintain effectiveness in symptomatic relief - 98848.?Debride skin< 25 sq cm:?Open wound?NEUROPATHY: Physician of [...] of the wound post debridement is stable (94844), The patient is to cleanse the wound [...] instrumentation by the physician of record - 47273.? * Procedure Codes:?01638 DEBRI DE NAIL, 6 OR MORE, Modifiers: XS 65049 TRIM SKIN LESIONS, OVER 4, Modifiers: XS 06807 ACTIVE WOUND CARE/20 CM OR <, Modifiers: [...]
--- OUTSIDE RECORDS SUMMARY | 2024-10-14 10:13 | XMS_ITS ---
Author Organization [facility] Address [address] [place] [address] Care Team Providers Care Brazing Machine Setter Name Role Phone Geovanni Pink MD Primary Care Provider Mary Canela Unavailable [phone] Allergies No Known Allergies REASON FOR VISIT [...] 025 Encounters Encounter Location Date Provider Diagnosis [facility] [address] [address] 07/15/2024 Mary Rea Type 2 diabetes mellitus [...] Provider Name:Mary vaughan, 12/30/2024 09:00:00 AM, [address] [place] [address], [address], Procedure Notes * Category Sub-Category Detail Notes [...] use of a nail nipper and/or dremel-type plate grinder, to a more viable healthy nail [...] to maintain effectiveness in symptomatic relief - 64437 Keratoma Treatment Parring or Cutting o f [...] instrumentation by the physician of record - 52394 Progress Notes * Raheem CASTRODOB:1970 ( 54 yo M)Acc No.[id number]:07/15/2024 Progress Note Patient:?CASTRO Raehem Provider:?Mary Rea DPM :1970???Age:54 Y???Sex:Male Romeo e:07/15/2024 Address:[address] [place], [place] [address] Pcp:Geovanni Pink MD Subjective: * Chief Complaints: [...] toe [facility] [place] * Family History:?Mother: dece ased, diagnosed with Diabetic - NIDDM.?Father: .? * Social History:?Tobacco Use:?Tobacco Use/Smoking?Are you a:?nonsmoker ?Additional Findings: Tobacco Non-User?Aggressive non-smoker ?Tobacco use other than smoking?Are you an other tobacco user??No ???Miscellaneous:?Caffeine: yes, frequency: Very Occassionally soda. ?Children: yes, 1. ?Exercise: yes, occasional, walking. ?Marital status: . 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 * Medications:?TakingmetFORMIN HCl amLODIPine Besylate [...] use of a nail nipper and/or dremel-type plate grinder, to a more viable healthy nail [...] to maintain effectiveness in symptomatic relief - 63213.?Keratoma Treatment:?Parring or Cutting of Benign Hyperkeratotic Lesion(s)?(-57) [...] instrumentation by the physician of record - 85483.? * Procedure Codes:?96232 TRIM SKIN LESIONS, OVER 4, Modifiers: XS 47013 DEBRIDE NAIL, 6 OR MORE, Modifiers: XS [...] Rea DPM Date:? Generated for Deedee huerta/Mike/Mirianitting on:?10/14/2024 10:12 AM EDT History and Physical [...]
== END 2024-10-14 09:46 | disposition home or self-care (01) ==
LOC: HO.HKA 09:26
PROVIDERS: PCP Family Medicine; Visit Provider Internal Medicine Nephrology
DX: I15.0 Renovascular hypertension (principal); Z94.0 Kidney transplant status
CPT/HCPCS: 99214

== ENCOUNTER → 2024-10-14 09:25 | Outpatient (BNVA) | payer OTHER, SELFPAY | PROVIDERS: PCP Family Medicine; Visit Provider Internal Medicine Nephrology | DX: I15.0 Renovascular hypertension (principal); E11.9 Type 2 diabetes mellitus without complications; Z94.0 Kidney transplant status; Z79.4 Long term (current) use of insulin | CPT/HCPCS: 99212 ==

== ENCOUNTER 2024-12-19 08:59 | Outpatient (REF) | payer OTHER, SELFPAY ==
--- OUTSIDE RECORDS SUMMARY | 2024-12-19 09:20 | XMS_ITS | Clinical Summary ---
Author Organization Patient Business Ser [facility] Address [address] [place] [address] Care Team Providers Care Director Of Preclinical Research Name Role Phone Lianne Manuel MD Primary Care Provider [phone] Social History Tobacco Use Types Packs/Day Years [...] of Health Screening 02/26/2022 Influenza Vaccine (#1) 2025 HIB Vaccines Aged Out No longer [...] age to complete this topic Care Teams Director Of Preclinical Research Relationship Specialty Start Date End Date Lianne Manuel MD [address] [place] [address] PCP - General Internal Medicine 01/30/22
--- OUTSIDE RECORDS SUMMARY | 2024-12-19 09:20 | XMS_ITS | Clinical Summary ---
Author Organization [facility] Address [address] [facility] [address] [place] [address] Phone Care Team Providers Care Assistance Specialist Name Role Phone Geovanni Pink MD Primary Care Provider [phone] Allergies No known active allergies Medications amLODIPine [...] 3 Active Eliquis 5 MG tabletIndication s:Other supervisor intermediates current drug therapy Take 1 tablet (5 [...] ankle and/or foot 11/20/2021 12/11/2021 Atherosclerosis of [place] ar teries of the extremities 11/20/2021 12/11/2021 [...] 08/18/2022, Additional history exists Influenza Vaccine (#1) 2025 04/03/2016, 2015 Procedures Procedure Name Priority Date/Time Associated Diagnosis Comments HEMOGLOBIN A1C Routine 09/21/2023 1:00 PM EDT from Last 3 Months or Most Recently Relevant to Health Maintenance Results * (ABNORMAL) Hemoglobin A1c (09/21/2023 1:00 PM EDT) Hemoglobin A1C 8.7(H) 4.8 - 5.6 % [facility] Comment: Prediabetes: 5.7 - 6.4 Diabetes: >6.4 Glycemic control for adults with diabetes: <7.0 09/21/2023 1:00 PM EDT 09/21/2023 Narrative [facility] - 09/24/2023 5:06 PM EDT Performed at: 01 - [facility] [address] [id number] Molding Line Assistant: Debora Brian MD, Phone: [phone] Skyler Banda MD LAB BLOOD ORDERABLES Final Resu lt [facility] from Last 3 Months or Most Recently Relevant to Health Maintenance Insurance [facility] ([id number]) [place] [address] Care Teams Assistance Specialist Relationship Specialty Start Date End Date Geovanni Pink MD [address] [place] [address] PCP - General Family Medicine 04/23/23
--- OUTSIDE RECORDS SUMMARY | 2024-12-19 09:21 | XMS_ITS | Clinical Summary ---
Author Organization [facility] Address [address] [place] [address] Care Team Providers Care Stonework Supervisor Name Role Phone Lianne Manuel MD Primary [...] Zoster (Shingles) Vaccine (1 of 2) 2021 COVID-19 Vaccine (3 - season) 02/14/202401/2021, 08/25/2020 Influenza Vaccine 01/13/2025 02/29/2016, 02/29/2016 Insurance MISC MGD MEDICARE OUT OF NETWORK [place]AR[place] [id number] * Guarantor: FRAUD WASTE ABUSE DEPT Account Type Relation to Patient Date of Phone Billing Address Client/Submitter Employer Care Teams Stonework Supervisor Relationship Specialty Start Date End Date Lianne Manuel MD [address] [place] [address] PCP - General Internal Medicine 07/10/22
--- OUTSIDE RECORDS SUMMARY | 2024-12-19 09:21 | XMS_ITS | Patient Health Record ---
Author Organization [facility] Address [address] [facility] [place] [address] Care Team Providers Care Bander Operator Name Role Phone Geovanni Pink MD Primary Care Provider Mary Canela Unavailable [phone] Rajesh Oreilly Unavailable [phone] Allergies No Known Allergies Results Component Value Reference Range Notes HEMOGLOBIN A1C (GLYCOHEMOGLO BIN) Reviewed date:07/15/2024 08:54:03 AM Interpretation: Performing Lab: Notes/Report: HEMOGLOBIN A1C % (HH) 7.3 HEMOGLOBIN A1C (GLYCOHEMOGLO BIN) Reviewed date:10/12/2024 09:18:31 AM Interpretation: Performing Lab: Notes/Report: HEMOGLOBIN A1C % (HH) 6.3 Reason For Referral No Information Medications Medication SIG (Take, Route, Frequency, Duration) Notes Start Date End Date Status amLODIPine Besylate Once a day Active Farxiga 10 MG Oral; Duration: 90 Days Not-Taking Doxycycline Monohydrate 100 MG 1 capsule Orally Twice a day; Duration: 14 days 14 adys Not-Taking Farxiga 5 MG 1 tablet Orally Once a day Not-Taking Amoxicillin-Pot Clavulanate 875 875-125 MG one tab Orally every 12 hrs; Duration: 10 day(s) 12/04/2022 Not-Taking Rayaldee 30 MCG 1 capsule at bedtime Orally Once a day; Duration: 30 day(s) Active Losartan Potassium 28 untis Once a day Not-Taking Lantus Active metFORMIN HCl Not-Ta [place] Ammonium Lactate 12 % 1 application Externally to affected areas of dry skin to feet except for between the toes Twice a day; Duration: 30 days Active Aspir-81 once a day Not-Takin g Extra Depth Orthopedic Shoes (1 Pair) with Customized Heat Molded Multidensity Innersoles (3 Pair) as directed Dx: NIDDM/Polyneuropathy (E11.42), Hammertoe Foot Deformity (M20.41,M20.42), Preulcerative Skin Lesion(s) (L85.1 12/15/2023 Active Tacrolimus 4tabs Twice a day N ot-Taking Rosuvastatin Calcium 10 MG Oral; Duration: 90 Days Acti ve Mycophenolic Acid 3 tabs Twice day Active Antibiotic Chest Not-Takin g Farxiga 10 MG TAKE 1 TABLET BY JONATHON TH EVERY DAY IN THE MORNING FOR 90 DAYS Oral; Duration: 90 Days Active Extra Depth Diabetic Shoes with 3 Pair Custom heat-molded multi-density innersoles for 1 year Dx: Not-Taking Extra Depth Orthopedic Shoes (1 Pair) with Customized Heat Molded Multidensity Innersoles (3 Pair) as directed Dx: IDDM/Polyneuropathy (E10.42), Hammertoe Foot Deformity (M20.41,M20.42), Preulcerative Skin Lesion(s) (L85.1) Not-Taking Mupirocin 2 % 1 application to ope n wound Externally Twice a day; Duration: 30 days 12/06/2024 Active Cephalexin 500 MG 1 capsule Orally Twi ce a day; Duration: 7 days 04/17/2023 Not-Taki ng Bactrim DS 800-160 MG 1 tablet Orally ev rad 12 hrs; Duration: 10 day(s) 12/06/2024 Active Cipro 500 MG 1 tablet Orally ever y 12 hrs; Duration: 7 days 04/16/2023 Not-Taking Immunizations Vaccine Route Administration Date Status [...] Problem Status W/U Status Risk Notes Problem Polyneuropathy due to type 2 diabetes mellitus (956807410) Type 2 diabetes mellitus with diabetic polyneuropathy (E11.42) Active confirmed Problem Acquired hammer toe of right foot (7190739759709842) Hammer toe of right foot (M20.41) Active confirmed Problem Acquired hammer toe of left foot (1747220999110558) Hammer toe of left foot (M20.42) Active confirmed Problem Bilateral atherosclerosis of arteries of lower limbs (disorder) (49765159934082409 ) Atherosclerosis of artery of both lower extremities (I70.203) Active confirmed Vital Signs Blood pressure diastolic 60 mm Hg 12/13/2024 Height 5ft9in in 12/13/2024 Blood pressure systolic 130 mm Hg 12/13/2024 Weight 210 lbs 12/13/2024 BMI 31.01 kg/m2 12/13/2024 Procedures Procedure Date Ordered Date Performed Result Body Sit e 59873-JASXXWI SKIN/TISSUE 02/11/2024 N/A Encounters Encounter Location Date [facility] [address] [address] 02/11/2024 Rajesh Murphyier Skin ulcer of toe of left foot with fat layer exposed L97.522 and Type 1 diabetes mellitus with diabetic polyneuropathy E10.42 [facility] [address] 04/14/2024 Mary Rea Type 2 diabetes mellitus with diabetic polyneuropathy E11.42 ; Contracture of toe of left foot M20.5X2 ; Tinea unguium B35.1 and Abscess of toe, left L02.[address] [address] 05/04/2024 Mary Rea Type 2 diabetes mellitus with diabetic polyneuropathy E11.42 ; Contracture of toe of left foot M20.5X2 ; Tinea unguium B35.1 and Neuropathic ulcer of left foot, limited to breakdown of skin L97.[address] [address] 07/15/2024 Mary Rea Type 2 diabetes mellitus with diabetic polyneuropathy E11.42 ; Contracture of toe of left foot M20.5X2 and Tinea unguium B35.[address] [address] 08/26/2024 Mary Rea Neurotrophic ulcer o f left foot limited to breakdown of skin L97.521 ; Xerosis of skin L85.3 and Type 2 diabetes mellitus with diabetic polyneuropathy E11.[address] [address] 10/12/2024 Mary Rea Type 1 diabetes mellitus with diabetic polyneuropathy E10.42 ; Atherosclerosis of artery of both lower extremities I70.203 ; Tinea unguium B35.1 and Neurotrophic ulcer of left foot limited to breakdown of skin L97.[address] [address] 12/06/2024 Mary Rea Neuropathic ulcer of left foot with fat layer exposed L97.522 ; Cellulitis of toe of right foot L03.031 ; Type 2 diabetes mellitus with diabetic polyneuropathy E11.42 ; Abscess of right foot L02.611 and Other hammer toe(s) (acquired), right foot M20.[address] [address] 12/13/2024 Mary Rea Type 2 diabetes mellitus with diabetic polyneuropathy E11.42 ; Cellulitis of toe of right foot L03.031 and Neuropathic ulcer of right foot with fat layer exposed L97.[address] [address] 02/11/2024 Mary Rea [address] [address] 03/07/2024 Mary Rea [address] [address] 12/05/2024 Mary Rea [address] [address] 12/06/2024 Mary Rea Assessments Encounter Date Diagnosis (ICD Code) Assessment Notes Treatment Notes Treatment Clinical Notes Section Notes 02/11/2024 Type 1 diabetes mellitus with diabetic [...] toe of left foot (ICD-10 - M20.5X2) 10/12/2024 Type 1 diabetes mellitus with diabetic polyneuropathy (ICD-10 - E10.42) 10/12/2024 Atherosclerosis of artery of both lower extremities (ICD-10 - I70.203) 08/26/2024 Neurotrophic ulcer of left foot limited to breakdown of skin (ICD-10 - L97.521) Response to treatment Patient Educated with: WOUND CARE INSTRUCTIONS. pdf (WOUND CARE INSTRUCTIONS. pdf) 12/06/2024 Neuropathic ulcer of left foot with fat layer exposed (ICD-10 - L97.522) Response to treatment 12/13/2024 Type 2 diabetes mellitus with diabetic polyneuropathy (ICD-10 - E11.42) 12/13/2024 Cellulitis of toe of right foot (ICD-10 - L03.031) 12/13/2024 Neuropathic ulcer of right foot with fat layer exposed (ICD-10 - L97.512) 12/06/2024 Cellulitis of toe of right foot (ICD-10 - L03.031) 10/12/2024 Tinea unguium (ICD-10 - B35.1) 08/26/2024 Xerosis of skin (ICD-10 - L85.3) 07/15/2024 Tinea unguium (ICD-10 - B35.1) 05/04/2024 Tinea unguium (ICD-10 - B35.1) 04/14/2024 Tinea unguium (ICD-10 - B35.1) 04/14/2024 Abscess of toe, left (ICD-10 - L02.612) Patient Educated with: WOUND CARE INSTRUCTIONS. pdf (WOUND CARE INSTRUCTIONS. pdf) 05/04/2024 Neuropathic ulcer of left foot, limited to breakdown of skin (ICD-10 - L97.521) 08/26/2024 Type 2 diabetes mellitus with diabetic polyneuropathy (ICD-10 - E11.42) 12/06/2024 Type 2 diabetes mellitus with diabetic polyneuropathy (ICD-10 - E11.42) 10/12/2024 Neurotrophic ulcer of left foot limited to breakdown of skin (ICD-10 - L97.521) 12/06/2024 Other hammer toe(s) (acquired), right foot (ICD-10 - M20.41) 12/06/2024 Abscess of right foot (ICD-10 - L02.611) Patient Educated with: WOUND CARE INSTRUCTIONS. pdf (WOUND CARE INSTRUCTIONS. pdf) 02/11/2024 Other 05/04/2024 Other 12/06/2024 Other Plan Of Treatment Pending Test Test Name Order Date X ray : Foot, left 3V 2020 X ray : Foot, left 3V 08/16/2021 X ray : Foot, left 3V 12/11/2022 X ray : Foot, left 3V 02/11/2024 60643-YYCDDTA NAIL, 6 OR MORE 09/16/2021 05216-BSYMEXR SKIN/TISSUE 10/25/2021 63194-VSFQZED SKIN/TISSUE 12/04/2022 70627-TLOLUWN SKIN/TISSUE 12/11/2022 56479-XRRZKFF SKIN/TISSUE 09/16/2021 34006-PYZTJKB SKIN/TISSUE 2020 68225-CPHFIIV SKIN/TISSUE 02/11/2024 45900-OJFH SKIN LESIONS, OVER 4 11/28/19 23 06825-XJKU SKIN LESIONS, OVER 4 09/17/19 22 00404-XDVRKGWI OF HEMATOMA/FLUID 023 Next Appt Details Provider Name:Mary vaughan, 01/20/2025 10:15:00 AM, [address] [place], [address], Insurance Providers Payer Name Payer Address Payer Phone Subscriber Number Group Number Insured Name Patient Relationship to Insured Coverage Start Date Coverage End Date [facility] SCO Claims [address] [place] [address] [id number] Raheem Castro Self - patient is the insured Medical (General) History Medical History History ICD Code Kidney disease type II diabetes Surgical History Surgery Date(Month/Year) kidney transplant 10/2016 L leg surgery 09/09/21 amputation, toe 01/2023 amputation , toe 04/2023 Toe amputation 10/14/23 hammertoe, right foot 02/2024 Hospitalization History Reason Date(Month/Year) [facility]20[place] [facility] [place] [facility]fection in bone of toe [facility] 04/2023
--- OUTSIDE RECORDS SUMMARY | 2024-12-19 09:21 | XMS_ITS ---
Author Name [facility] Organization Unknown Problems Problem Status Onset Date Problem Type Date of Resoluti on Source Complication of transplanted kidney, unspecified complication active [facility]Diagnosis[facility] Encounters Encounter Type Encounter Reason Primary Diagnosis Location Date Ambulatory Unspecified complication of kidney transplant Unspecified complication of kidney transplant [facility] 08/05/2023 Ambulatory Kidney transplan t status [facility] 08/07/2022 Ambulatory Kidney transplan t status [facility] 03/27/2022 Ambulatory Unspecified complication of kidney transplant [facility] 06/10/2021 Care Team Organization Name Specialty Phone Email Start Date End Da te [facility] JJ CARNES Primary Care 07/22/2023 [facility] PCP,No Primary Care 03/27/2022 08/31/2024 [facility] NO PCP Primary Care 04/15/2021 03/17/2022
[2024-12-19 09:59] LABS: MANUAL DIFF FLAG NO
[2024-12-19 10:00] LABS: Hematocrit 46.6 % (42.0-52.0); Hemoglobin 14.9 g/dl (14.0-18.0); Imm Gran Abs Auto 0.16 X10*3/uL (0.00-0.03); Imm Gran Pct Auto 2.4 % (0.0-0.4); Lymphocytes Absolute Auto 1.7 X10*3/uL (1.2-4.9); Mean Corpuscular HGB Conc 32.0 g/dl (31.0-36.0); Mean Corpuscular Hemoglobin 28.0 pg (27.0-33.0); Mean Corpuscular Volume 87.4 fL (80.0-98.0); NRBC Abs Auto 0.000 X10*3/uL (0.0-0.012); NRBC Pct Auto 0.0 /100WBC (0.0-0.2); Platelet Count 169 X10*3/uL (160-400); Red Blood Count 5.33 X10*6/uL (4.60-5.80); White Blood Count 6.6 X10*3/uL (4.8-10.8)
== END 2024-12-19 09:00 | disposition home or self-care (01) ==
LOC: HO.LAB 08:59
PROVIDERS: PCP Family Medicine; Visit Provider Internal Medicine Nephrology
DX: Z94.0 Kidney transplant status (principal); I15.0 Renovascular hypertension
CPT/HCPCS: 36415; 85025

== ENCOUNTER 2024-12-21 15:17 | Outpatient (AMB) | payer OTHER, SELFPAY ==
[2024-12-21 15:19] VITALS: BP 142/70; PULSE 70; O2SAT 97; BMI 35.8
--- NOTE | 2024-12-21 15:19 | HO.NEPHOV_ITS ---
Vital Signs 12/21/24 15:19 Height 5 ft 6 in Weight 222 lb BMI 35.8 BP 142/70 H Blood Pressure Location Lt brachial Position Sitting Pulse 70 Pulse Source Pulse Oximeter Pulse Oximetry (%) 97 Oxygen Delivery Method Room Air Intake Visit Reasons: FU Recreation Aide Required: No Accompanied by: Spouse Allergies No Known Allergies Allergy (Verified 12/21/24 15:21) HPI Comments Details: Raheem Castro is 54 years with type 2 diabetes mellitus on insulin, chronic kidney disease s/p living donor renal transplant from who also has H/O treated seminoma post transplant. He had his hammer toe fixed on Sep by Dr Aydee Diaz in [facility]. He denied any chills, nausea, vomiting, dizziness or palpitations. He denied any cardiopulmonary, gastrointestinal or genitourinary symptoms. Renal function is around baseline. His blood sugar is fair. He had a blister on his foot and was put on antiobiotcs and was seen by wound care. His serum creatinine has gone up marginally on Bactrim. There were no new other active complaints at the time of this office visit [facility] Medical History HTN (hypertension) PAD (peripheral artery disease) CKD (chronic kidney disease) stage 3, GFR 30-59 ml/min MSSA bacteremia Osteomyelitis of third toe of left foot S/P angiogram of extremity (10/08/22) Diabetic ulcer of right foot Osteomyelitis Wound of right foot Chronic right shoulder pain Multinodular goiter Testicular cancer Bleeding internal hemorrhoids Seminoma Paresthesia and pain of extremity Type 2 diabetes mellitus with hyperglycemia, with long-term current use of insulin Type 2 diabetes mellitus with chronic kidney disease Hyperlipidemia Vaccination refused by patient Refused pneumococcal vaccination Anemia in stage 4 chronic kidney disease Acute proliferative glomerulonephritis Secondary hyperparathyroidism of renal origin Mixed dyslipidemia Peripheral vascular disease Carpal tunnel syndrome on left Diabetes mellitus with diabetic nephropathy, with long-term current use of insulin Osteomyelitis of left foot Diabetes mellitus with foot ulcer End-stage renal disease on hemodialysis Surgical History Renal transplant recipient History of amputation (01/19/23) Amputated toe of right foot (10/13/22) History of kidney transplant Kidney transplant recipient Family History Father Unknown family medical history Mother Diabetes mellitus HTN (hypertension) CVD (cardiovascular disease) History of CVA (cerebrovascular accident) Stroke Sister Diabetes mellitus Daughter No problems noted. Sister No problems noted. Sister No problems noted. Social History Household Members: Family Housing: House Do you presently have visiting nurse or other home services: No Alcohol intake: never Patient Tobacco Use Status: Never used Tobacco e-Cigarette/Vaping Use: Never Used Advance Directives Date on File: 01/16/23 service: No Current occupational status: disabled Current occupation: disability - kidney transplant. Left side dominant Cognitive needs: No Hearing needs: No Vision needs: No Review of Systems Const All systems reviewed & are unremarkable except as noted in HPI and below Physical Exam Vital Signs: Last Vital Signs Pulse 70 12/21/24 15:19 BP 142/70 H 12/21/24 15:19 Pulse Ox 97 12/21/24 15:19 Oxygen Delivery Method Room Air 12/21/24 15:19 BMI result Body Mass Index 35.8 Const General: comfortable and no acute distress Orientation/consciousness: patient oriented x3 HEENT Head: Yes normocephalic Mouth: Normal oral and palatal mucosa present Eyes EOM: EOMs intact bilaterally Neck Neck: Yes supple Resp Auscultation: clear to auscultation bilaterally Cardio Jugular venous distension: no JVD Rate: regular rate GI Palpation (GI): Soft to palpation Auscultation: normal bowel sounds General: Yes no CVA tenderness Back/Spine/Pelvis Back: no CVA tenderness Skin General skin exam: no rashes or lesions noted Neuro General: patient oriented x3 and moves all extremities Extrem General: Yes no pedal edema Results Reviewed Nephrology Results: Hgb, (14.0-18.0) 14.9 g/dl 12/19/24 WBC, (4.8-10.8) 6.6 X10*3/uL 12/19/24 Plt Count, (160-400) 169 X10*3/uL 12/19/24 Sodium, (135-145) 142 mmol/L 10/13/24 Potassium, (3.3-5.1) 3.4 mmol/L 10/13/24 Chloride, (96-108) 107 mmol/L 10/13/24 Carbon Dioxide, (22-29) 25 mmol/L 10/13/24 BUN, (9-16) 18 mg/dL H 10/13/24 Creatinine, (0.5-1.4) 1.77 mg/dL H 10/13/24 Calcium, (8.4-10.2) 9.3 mg/dL 10/13/24 Phosphorus, (2.7-4.5) 2.9 mg/dL 10/13/24 PTH Intact, (8.7-77.1) 167.1 pg/mL H 10/13/24 Urine Creatinine 96.29 mg/dL 10/13/24 Protein/Creatinin Ratio, (<0.2) 0.49 H 10/13/24 Assessment & Plan Assessment & Plan (1) Renal transplant recipient: Code(s): Z94.0 - Kidney transplant status Category: Surgical Plan Transplant renal function had been at baseline Serum creatinine marginally up on Bactrim C/W current dose of MMF C/W Everolimus to 1 mg AM and 2 mg PM Needs better BS control @ home No NSAID's and good hydration Already on SGLT 2 i; May need to increase Rayaldee soon C/W rest of current management for now Needs annual dermatology visit All questions answered Labs ordered; F/U given Orders: Orders Creatinine 2 Weeks Z.0 - Kidney transplant status Blood Urea Nitrogen 2 Weeks Z94.0 - Kidney transplant status Electrolytes 2 Weeks Z.0 - Kidney transplant status Other Ref Test - Misc 6 Weeks Z.0 - Kidney transplant status Aspartate Amino Transferase 6 Weeks Z94.0 - Kidney transplant status Alanine Aminotransferase 6 Weeks Z94.0 - Kidney transplant status Phosphorus 6 Weeks Z94.0 - Kidney transplant status Electrolytes 6 Weeks Z94.0 - Kidney transplant status Blood Urea Nitrogen 6 Weeks Z94.0 - Kidney transplant status Creatinine 6 Weeks Z94.0 - Kidney transplant status Complete Blood Count Auto Diff 6 Weeks Z94.0 - Kidney transplant status Magnesium 6 Weeks Z94.0 - Kidney transplant status Coding Level of Care Code Est Pt Level 4 (64262) Diagnoses Renal transplant recipient Z94.0
--- OUTSIDE RECORDS SUMMARY | 2024-12-21 15:30 | XMS_ITS | Patient Health Record ---
Author [facility] Address [address] [facility] [place] [address] Care Team Providers Care Funeral Arrangement Director Name Role Phone Geovanni Pink MD Primary Care Provider Mary Canela Unavailable [phone] Rajesh Oreilly Unavailable [phone] Allergies No Known Allergies Results Component Value [...] Polyneuropathy due to type 2 diabetes mellitus (697214311) Type 2 diabetes mellitus with diabetic polyneuropathy (E11.42) Active confirmed Problem Acquired hammer toe of right foot (1715727970354338) Hammer toe of right foot (M20.41) Active confirmed Problem Acquired hammer toe of left foot (8752335668343057) Hammer toe of left foot (M20.42) Active confirmed Problem Bilateral atherosclerosis of arteries of lower limbs (disorder) (64640626594538810 ) Atherosclerosis of artery of both lower extremities (I70.203) Active confirmed Vital Signs Blood pressure diastolic 60 mm Hg 12/13/2024 Height 5ft9in in 12/13/2024 Blood pressure systolic 130 mm Hg 12/13/2024 Weight 210 lbs 12/13/2024 BMI 31.01 kg/m2 12/13/2024 Procedures Procedure Date Ordered Date Performed Result Body Sit e 72437-XBJQZBK SKIN/TISSUE 02/11/2024 N/A Encounters Encounter Location Date [facility] [address] [address] 02/11/2024 Rajesh Murphyier Skin ulcer of toe of left foot with fat layer exposed L97.522 and Type 1 diabetes mellitus with diabetic polyneuropathy E10.[address] [facility] [address] 04/14/2024 Mary Rea Type 2 diabetes mellitus with diabetic polyneuropathy E11.42 ; Contracture of toe of left foot M20.5X2 ; Tinea unguium B35.1 and Abscess of toe, left L02.[address] [address] 05/04/2024 Mary Rea Type 2 diabetes mellitus with diabetic polyneuropathy E11.42 ; Contracture of toe of left foot M20.5X2 ; Tinea unguium B35.1 and Neuropathic ulcer of left foot, limited to breakdown of skin L97.[address] [address] 07/15/2024 Mary Rea Type 2 diabetes mellitus with diabetic polyneuropathy E11.42 ; Contracture of toe of left foot M20.5X2 and Tinea unguium B35.[address] [address] 08/26/2024 Mary Rea Neurotrophic ulcer o f left foot limited to breakdown of skin L97.521 ; Xerosis of skin L85.3 and Type 2 diabetes mellitus with diabetic polyneuropathy E11.[address] [address] 10/12/2024 Mary Rea Type 1 diabetes mellitus with diabetic polyneuropathy E10.42 ; Atherosclerosis of artery of both lower extremities I70.203 ; Tinea unguium B35.1 and Neurotrophic ulcer of left foot limited to breakdown of skin L97.[address] [address] 12/06/2024 Mary Rea Neuropathic ulcer of left foot with fat layer exposed L97.522 ; Cellulitis of toe of right foot L03.031 ; Type 2 diabetes mellitus with diabetic polyneuropathy E11.42 ; Abscess of right foot L02.611 and Other hammer toe(s) (acquired), right foot M20.[address] [address] 12/13/2024 Mary Rea Type 2 diabetes mellitus with diabetic polyneuropathy E11.42 ; Cellulitis of toe of right foot L03.031 and Neuropathic ulcer of right foot with fat layer exposed L97.[address] [address] 02/11/2024 Mary Rea [address] [address] 03/07/2024 Mary Rea [address] [address] 12/05/2024 Mary Rea [address] [address] 12/06/2024 Mary Rea Assessments Encounter Date Diagnosis [...] X ray : Foot, left 3V 02/11/2024 14274-HKIEDKN NAIL, 6 OR MORE 09/16/2021 84233-ITPINGH SKIN/TISSUE 10/25/2021 60558-ESDKSQY SKIN/TISSUE 12/04/2022 30802-EZFCKOA SKIN/TISSUE 12/11/2022 07082-ULSBBXM SKIN/TISSUE 09/16/2021 92375-TBKTSQY SKIN/TISSUE 2020 93516-MDJAUJQ SKIN/TISSUE 02/11/2024 21612-BMMM SKIN LESIONS, OVER 4 11/28/19 23 99014-OITL SKIN LESIONS, OVER 4 09/17/19 22 85047-USFZFRDT OF HEMATOMA/FLUID 023 Next Appt Details Provider Name:Mary vaughan, 01/20/2025 10:15:00 AM, [address] [place], [address], Insurance Providers Payer Name Payer Address Payer Phone Subscriber Number Group Number Insured Name Patient Relationship to Insured Coverage Start Date Coverage End Date [facility] SCO Claims [address] [place] [address] [id number] Raheem Castro Self - patient is the insured Medical (General) History Medical History History ICD Code Kidney disease type II diabetes Surgical History Surgery Date(Month/Year) kidney transplant 10/2016 L leg surgery 09/09/21 amputation, toe 01/2023 amputation , toe 04/2023 Toe amputation 10/14/23 hammertoe, right foot 02/2024 Hospitalization History Reason Date(Month/Year) [facility]/2023 [facility] [place]- Infection in bone of toe [facility] 04/2023
--- OUTSIDE RECORDS SUMMARY | 2024-12-21 15:30 | XMS_ITS | Clinical Summary ---
Author Organization Patient Business Ser [facility] Address [address] [place] [address] Care Team Providers Care Mortgage Professional Name Role Phone Lianne Manuel MD Primary [...] 5 Years) and At-Risk Patients (6 to 49 Years) (1 of 2 - PCV) 1990 [...] age to complete this topic Care Teams Mortgage Professional Relationship Specialty Start Date End Date Lianne Manuel MD [address] [place] [address] PCP - General Internal Medicine 01/30/22
--- OUTSIDE RECORDS SUMMARY | 2024-12-21 15:30 | XMS_ITS | Clinical Summary ---
Author Organization [facility] Address [address] [facility] [address] [place] [address] Phone Care Team Providers Care Career Representative Name Role Phone Geovanni Pink MD Primary Care Provider [phone] Allergies No known active allergies Medications amLODIPine [...] 3 Active Eliquis 5 MG tabletIndication s:Other roasterman current drug therapy Take 1 tablet (5 [...] ankle and/or foot 11/20/2021 12/11/2021 Atherosclerosis of [place] of the extremities 11/20/2021 12/11/2021 [...] PM EDT Performed at: 01 - [facility] [address] [id number] Mellowing Machine Operator: Debora Brian MD, Phone: [phone] Skyler Banda MD LAB BLOOD ORDERABLES Final Resu lt [facility] from Last 3 Months or Most Recently Relevant to Health Maintenance Insurance [facility] ([id number]) [place] [address] Care Teams Career Representative Relationship Specialty Start Date End Date Geovanni Pink MD [address] [place] [id number] PCP - General Family Medicine 04/23/23
--- OUTSIDE RECORDS SUMMARY | 2024-12-21 15:31 | XMS_ITS | Clinical Summary ---
Author Organization [facility] Address [address] [place] [address] Care Team Providers Care Business Manager Name Role Phone Lianne Manuel MD Primary Care Provider [phone] Social History Tobacco Use Types Packs/Day Years [...] MGD MEDICARE OUT OF NETWORK [place] [id number] * Guarantor: [employer] Account Type Relation to Patient Date of Phone Billing Address Client/Submitter Employer Care Teams Business Manager Relationship Specialty Start Date End Date Lianne Manuel MD [address] [place] [id number] PCP - General Internal Medicine 07/10/22
== END 2024-12-21 16:08 | disposition home or self-care (01) ==
LOC: HO.HKA 15:18
PROVIDERS: PCP Family Medicine; Visit Provider Internal Medicine Nephrology
DX: Z94.0 Kidney transplant status (principal)
CPT/HCPCS: 99214

== ENCOUNTER → 2024-12-21 15:17 | Outpatient (BNVA) | payer OTHER, SELFPAY | PROVIDERS: PCP Family Medicine; Visit Provider Internal Medicine Nephrology | DX: E11.22 Type 2 diabetes mellitus with diabetic chronic kidney disease (principal); Z94.0 Kidney transplant status | CPT/HCPCS: 99212 ==

== ENCOUNTER 2024-12-30 08:16 | Outpatient (AMB) | payer OTHER, SELFPAY ==
--- OUTSIDE RECORDS SUMMARY | 2024-12-30 08:19 | XMS_ITS | Clinical Summary ---
Author Organization Patient Business Ser [facility] Address [address] [place] [address] Care Team Providers Care Milled Rubber Tender Name Role Phone Lianne Manuel MD Primary Care Provider [phone] Social History Tobacco Use Types Packs/Day Years [...] ars (1 of 2 - PCV) 1990 Zoster [...] age to complete this topic Care Teams Milled Rubber Tender Relationship Specialty Start Date End Date Lianne Manuel MD [address] [place] [address] PCP - General Internal Medicine 01/30/22
--- OUTSIDE RECORDS SUMMARY | 2024-12-30 08:19 | XMS_ITS | Clinical Summary ---
Author Organization [facility] Address [address] [facility] [address] [place] [address] Phone Care Team Providers Care Beauty Shop Manager Name Role Phone Geovanni Pink MD Primary Care Provider Allergies No known active allergies Medications cefuroxime (CEFTIN) 500 MG tablet 4 Active amLODIPine (NORVASC) 5 MG tablet Take 5 mg by mouth. Active ELIQUIS 5 mg tablet Take 5 mg by mouth. 3 Active RAYALDEE 30 mcg Cs24 Take 1 capsule by mouth daily. 3 Active everolimus, immunosuppress will, (ZORTRESS) 1 mg Take 2 mg by mouth. 4 Active NOVOLOG FLEXPEN U-100 INSULIN 100 unit/mL (3 mL) flexpen INJECT 4 UNIT (0.04 ML) SUBCUTANEOUSLY 3 TIMES A DAY BEFORE MEALS Active LANTUS U-100 INSULIN 100 unit/mL injection vial Inject 26 Units under the skin. 4 Active mycophenolate sodium (MYFORTIC) [address] tablet Take 540 mg by mouth. 3 Active BD ULTRA-FINE MINI PEN NEEDLE 31 gauge x 3/16 Ndle 4 Active rosuvastatin (CRESTOR) 10 MG tablet Take 10 mg by mouth. 4 Active Active Problems No known active problems Social History Tobacco Use Types Packs/Day Years Used Date Smoking Tobacco: Never Assessed Education Answer Date Recorded Are you interested in more education? Not on florinda e 11/02/2023 Are you concerned about learning? Not on file 11/02/2023 No 11/02/2023 No 11/02/2023 Digital Access Answer Date Recorded No 11/02/2023 No 11/02/2023 Reliable internet access at home? Not on file 11/02/2023 Device with a working camera? Not on file Sex and Gender Information Value Date Recorded Sex Assigned at Not on file Legal Sex Male 9:33 PM EDT Gender Identity Not on file Sexual Orientation Not on file Plan of Treatment Health Maintenance Due Date Last Done Comments DEPRESSION SCREENING 1983 SMOKING Hx and SMOKELESS TOBACCO SCREENING 1984 HEPATITIS C SCREENING 1989 HIV ONE-TIME SCREENING (18-65 YEARS) 1989 ZOSTER VACCINES (1 of 2) 1990 COLOGUARD 2016 COLONOSCOPY 2016 COLORECTAL CANCER SCREENING 2016 FIT TEST 2016 FOBT 2016 SIGMOIDOSCOPY 2016 VIRTUAL COLONOSCOPY 2016 PNEUMOCOCCAL VACCINES (50+ years) (2 of 2 - PCV) 03/19/2017 03/19/2016 COVID-19 VACCINE ( season) 2024 03/02/2021, 02/09/2021, 09/20/2020, Additional history exists Adult Td,Tdap Booster 01/22/2027 01/22/2017 LIPID PANEL 09/20/2028 09/21/2023 HEPATITIS A VACCINES Aged Out No long er eligible based on patient's age to complete this topic HIB VACCINES Aged Out No longer eligi ble based on patient's age to complete this topic MENINGOCOCCAL VACCINES (ACWY) Aged Out No longer eligible based on patient's age to complete this topic MENINGOCOCCAL VACCINES (B) Aged Out N o longer eligible based on patient's age to complete this topic Medical Devices Not on file Insurance [facility] ONE CARE MEDICARE REPLACEMENT [facility] MEDIC[facility] REPLACEMENT [facility] MEDIC[facility] REPLACEMENT [facility] MEDICARE [facility]PLACEMENT [facility] ONE CARE MEDICARE REPLACEMENT [facility] CARE MEDICARE REPLACEMENT Care Teams Beauty Shop Manager Relationship Specialty Start Date End Date Geovanni Pink MD [address] [place] [address] PCP - General Family Medicine 11/02/23 Additional Source Comments The information contained in this document represents components of the legal health record. It is not the complete legal health record.[facility]
--- OUTSIDE RECORDS SUMMARY | 2024-12-30 08:19 | XMS_ITS | Clinical Summary ---
Author Organization [facility] Address [address] [facility] [address] [place] [address] Phone Care Team Providers Care Repair Coil Winder Name Role Phone Geovanni Pink MD Primary Care Provider [phone] Allergies No known active allergies Medications amLODIPine [...] 3 Active Eliquis 5 MG tabletIndication s:Other retirement current drug therapy Take 1 tablet (5 [...] ankle and/or foot 11/20/2021 12/11/2021 Atherosclerosis of [place] ar teries of the extremities 11/20/2021 12/11/2021 [...] PM EDT Performed at: 01 - [facility] [address] [id number] Ap Processor: Debora Brian MD, Phone: [phone] Skyler Banda MD LAB BLOOD ORDERABLES Final Resu lt [facility] from Last 3 Months or Most Recently Relevant to Health Maintenance Insurance [facility] ([id number]) [place] [address] Care Teams Repair Coil Winder Relationship Specialty Start Date End Date Geovanni Pink MD [address] [place] [address] PCP - General Family Medicine 04/23/23
--- OUTSIDE RECORDS SUMMARY | 2024-12-30 08:19 | XMS_ITS | Clinical Summary ---
Author Organization [facility] Address [address] [place] [address] Care Team Providers Care Oil Pipeline Dispatcher Name Role Phone Lianne Manuel MD Primary [...] MGD MEDICARE OUT OF NETWORK [place] [id number] * Guarantor: [employer] Account Type Relation to Patient Date of Phone Billing Address Client/Submitter Employer Care Teams Oil Pipeline Dispatcher Relationship Specialty Start Date End Date Lianne Manuel MD [address] [place] [address] PCP - General Internal Medicine 07/10/22
--- OUTSIDE RECORDS SUMMARY | 2024-12-30 08:19 | XMS_ITS | Patient Health Record ---
[facility] Organization [facility] Address [address] [facility] [place] [address] Care Team Providers Care Solution Design Engineer Name Role Phone Geovanni Pink MD Primary Care Provider Mary Canela Unavailable [phone] Rajesh Oreilly Unavailable [phone] Allergies No Known Allergies Results Component Value [...] Polyneuropathy due to type 2 diabetes mellitus (297911601) Type 2 diabetes mellitus with diabetic polyneuropathy (E11.42) Active confirmed Problem Acquired hammer toe of right foot (7472121172561690) Hammer toe of right foot (M20.41) Active confirmed Problem Acquired hammer toe of left foot (2733752593923323) Hammer toe of left foot (M20.42) Active confirmed Problem Bilateral atherosclerosis of arteries of lower limbs (disorder) (03583129975509855 ) Atherosclerosis of artery of both lower extremities (I70.203) Active confirmed Vital Signs Blood pressure diastolic 60 mm Hg 12/13/2024 Height 5ft9in in 12/13/2024 Blood pressure systolic 130 mm Hg 12/13/2024 Weight 210 lbs 12/13/2024 BMI 31.01 kg/m2 12/13/2024 Procedures Procedure Date Ordered Date Performed Result Body Sit e 17006-NLEVCUN SKIN/TISSUE 02/11/2024 N/A Encounters Encounter Location Date Provider [facility] [address] [address] 02/11/2024 Rajesh Murphyier Skin ulcer of toe of left foot with fat layer exposed L97.522 and Type 1 diabetes mellitus with diabetic polyneuropathy E10.[address] [facility] [address] 04/14/2024 Mary Rea Type 2 diabetes mellitus with diabetic polyneuropathy E11.42 ; Contracture of toe of left foot M20.5X2 ; Tinea unguium B35.1 and Abscess of toe, left L02.[address] [address] 05/04/2024 Mary Rea Type 2 diabetes mellitus with diabetic polyneuropathy E11.42 ; Contracture of toe of left foot M20.5X2 ; Tinea unguium B35.1 and Neuropathic ulcer of left foot, limited to breakdown of skin L97.[address] [address] 07/15/2024 Mary Rea Type 2 diabetes mellitus with diabetic polyneuropathy E11.42 ; Contracture of toe of left foot M20.5X2 and Tinea unguium B35.[address] [address] 08/26/2024 Mary Rea Neurotrophic ulcer o f left foot limited to breakdown of skin L97.521 ; Xerosis of skin L85.3 and Type 2 diabetes mellitus with diabetic polyneuropathy E11.[address] [address] 10/12/2024 Mary Rea Type 1 diabetes mellitus with diabetic polyneuropathy E10.42 ; Atherosclerosis of artery of both lower extremities I70.203 ; Tinea unguium B35.1 and Neurotrophic ulcer of left foot limited to breakdown of skin L97.[address] [address] 12/06/2024 Mary Rea Neuropathic ulcer of left foot with fat layer exposed L97.522 ; Cellulitis of toe of right foot L03.031 ; Type 2 diabetes mellitus with diabetic polyneuropathy E11.42 ; Abscess of right foot L02.611 and Other hammer toe(s) (acquired), right foot M20.[address] [address] 12/13/2024 Mary Rea Type 2 diabetes mellitus with diabetic polyneuropathy E11.42 ; Cellulitis of toe of right foot L03.031 and Neuropathic ulcer of right foot with fat layer exposed L97.[address] [address] 02/11/2024 Mary Rea [address] [address] 03/07/2024 Mary Rea [address] [address] 12/05/2024 Mary Rea [address] [address] 12/06/2024 Mary Rea Assessments Encounter Date Diagnosis [...] X ray : Foot, left 3V 02/11/2024 10496-TLWNVFA NAIL, 6 OR MORE 09/16/2021 14489-LLKIWDO SKIN/TISSUE 10/25/2021 57075-PWBXQHU SKIN/TISSUE 12/04/2022 59303-HDEXQQE SKIN/TISSUE 12/11/2022 17927-DIVKYBQ SKIN/TISSUE 09/16/2021 60114-IZTEQMD SKIN/TISSUE 2020 14699-GMSIKDJ SKIN/TISSUE 02/11/2024 85039-IFLK SKIN LESIONS, OVER 4 11/28/19 23 54234-IAEO SKIN LESIONS, OVER 4 09/17/19 22 96124-FCCIECMD OF HEMATOMA/FLUID 023 Next Appt Details Provider Name:Mary vaughan, 01/20/2025 10:15:00 AM, [address] [place], [address], Insurance Providers Payer Name Payer Address Payer Phone Subscriber Number Group Number Insured Name Patient Relationship to Insured Coverage Start Date Coverage End Date [facility] [employer] Claims [address] [place] [id number] Raheem Castro Self - patient is the insured Medical (General) History Medical History History ICD Code Kidney disease type II diabetes Surgical History Surgery Date(Month/Year) kidney transplant 10/2016 L leg surgery 09/09/21 amputation, toe 01/2023 amputation , toe 04/2023 Toe amputation 10/14/23 hammertoe, right foot 02/2024 Hospitalization History Reason Date(Month/Year) [facility] - Cut [facility] 01/2023 [facility]- fever- Infection in bone of toe [facility]- Cut of piece of toe 04/2023
--- NOTE | 2024-12-30 08:38 | MHC.PC.OV ---
Vital Signs 12/30/24 08:42 12/30/24 08:45 Height 5 ft 6 in Weight 217 lb 8 oz BMI 35.1 BP 140/64 H 100/60 Blood Pressure Location Lt brachial Lt brachial Position Sitting Sitting Respiration 14 Pulse 78 Pulse Source Pulse Oximeter Temp 97.9 F Temp Source Oral Pulse Oximetry (%) 97 Oxygen Delivery Method Room Air Intake Visit Reasons: F/U Hypertension and Diabetes Intake Note: patient is scheduled for htn and dm Brazing Machine Operator Helper Required: No Allergies No Known Allergies Allergy (Verified 12/30/24 08:40) Medication List - Last Reconciled 12/30/24 by Geovanni Pink MD alcohol swabs (Alcohol Prep Pads) 1 pad topical .4 times a day 90 days amlodipine 10 mg PO DAILY 90 days apixaban 5 mg PO BID 90 days calcifediol ER (Rayaldee) 30 mcg PO BEDTIME 90 days dapagliflozin propanediol 10 mg PO QAM 90 days diabetic supplies, [employer]. DIABETIC SHOES ycecjprybmj-zfqe-X-C-E-aloe 3-30 % (Gold Carey Ultimate Diabetics' Foot) 1 appl topical BID 30 days everolimus (immunosuppressive) 2 mg (2 x 1 mg) PO BID 90 days insulin aspart U-100 (Novolog FlexPen U-100 Insulin aspart) 5 units (0.05 mL) subcut TIDAC 30 days insulin glargine (Lantus Solostar U-100 Insulin) 20 units (0.2 mL) subcut BEDTIME 30 days lancets (FreeStyle Lancets) As directed mirtazapine 7.5 mg PO BEDTIME mycophenolate sodium 540 mg (3 x 180 mg) PO BID 90 days pen needle, diabetic USE ONE FOUR TIMES A DAY NS rosuvastatin 10 mg PO BEDTIME Tobacco use date assessed: 11/04/23 Dental Screening Dental Screen Date: 09/25/23 HPI F/U Hypertension and Diabetes HPI Details 54 y/o male presents to f/u hypertension, diabetes. BP today 100/60 - improved on relaxation. He is on amlodipine 10mg. Had increased Farxiga at last visit due to report of left eye diabetic retinopathy and need for tighter blood sugar control. A1c today climbed from 6.5% to 6.9%. Reports morning blood sugars in the 160s - notes lowest he has recorded was in the 60s when he wakes up though he notes this is rare. [facility] Medical History HTN (hypertension) PAD (peripheral artery disease) CKD (chronic kidney disease) stage 3, GFR 30-59 ml/min MSSA bacteremia Osteomyelitis of third toe of left foot S/P angiogram of extremity (10/08/22) Diabetic ulcer of right foot Osteomyelitis Wound of right foot Chronic right shoulder pain Multinodular goiter Testicular cancer Bleeding internal hemorrhoids Seminoma Paresthesia and pain of extremity Type 2 diabetes mellitus with hyperglycemia, with long-term current use of insulin Type 2 diabetes mellitus with chronic kidney disease Hyperlipidemia Vaccination refused by patient Refused pneumococcal vaccination Anemia in stage 4 chronic kidney disease Acute proliferative glomerulonephritis Secondary hyperparathyroidism of renal origin Mixed dyslipidemia Peripheral vascular disease Carpal tunnel syndrome on left Diabetes mellitus with diabetic nephropathy, with long-term current use of insulin Osteomyelitis of left foot Diabetes mellitus with foot ulcer End-stage renal disease on hemodialysis Surgical History Renal transplant recipient History of amputation (01/19/23) Amputated toe of right foot (10/13/22) History of kidney transplant Kidney transplant recipient Family History Father Unknown family medical history Mother Diabetes mellitus HTN (hypertension) CVD (cardiovascular disease) History of CVA (cerebrovascular accident) Stroke Sister Diabetes mellitus Daughter No problems noted. Sister No problems noted. Sister No problems noted. Social History Household Members: Family Housing: House Do you presently have visiting nurse or other home services: No Alcohol intake: never Patient Tobacco Use Status: Never used Tobacco e-Cigarette/Vaping Use: Never Used Advance Directives Date on File: 01/16/23 service: No Current occupational status: disabled Current occupation: disability - kidney transplant. Left side dominant Cognitive needs: No Hearing needs: No Vision needs: No Questionnaire Thrive Questionnaire Date Thrive assessed: 06/24/24 I am a: Patient What is your living situation today?: I have a steady place to live Within the past 12 months, did the food you bought not last and you didn't have the money to get more?: I choose not to answer this question Within the past 12 months, did you worry whether your food would run out before you got money to buy more?: I choose not to answer this question Do you have trouble paying for medicines?: No Do you have trouble getting transportation to medical appointments?: No Do you have trouble paying your heating and electricity bill?: No Do you have trouble taking care of your child, family member or friend?: No Do you have trouble with day-to-day activities such as bathing, preparing meals, shopping, managing finances, etc.?: No Are you currently unemployed and looking for a job?: Yes Are you interested in more education?: No Please select the resources that you would like help with: None Currently or been in a relationship where the following occur: No concerns reported THRIVE Score: 0 BRIANNA-7 AMB Questionnaire BRIANNA-7 Date BRIANNA - 7 assessed: 06/24/24 Source: Developed by Drs. Joey Day, Martine Olea, Felipe Robles and colleagues, with an educational marium from [employer]. Review of Systems Const Denies chills, Denies fatigue, Denies fever(s), Denies headache(s) and Denies weakness ENT Denies dizziness and Denies headache(s) Card Denies dyspnea Resp Denies cough, Denies dyspnea, Denies wheezing and Denies other (shortness of breath) Musc Denies numbness and Denies tingling Neuro Denies dizziness, Denies headache(s), Denies numbness, Denies tingling and Denies weakness Psych Denies anxiety and Denies depression Endo Denies fatigue Aller/Immun Denies wheezing Physical exam (Primary Care) Vital Signs: Last Vital Signs Temp 97.9 F 12/30/24 08:42 Pulse 78 12/30/24 08:42 Resp 14 12/30/24 08:42 BP 100/60 12/30/24 08:45 Pulse Ox 97 12/30/24 08:42 Oxygen Delivery Method Room Air 12/30/24 08:42 BMI result Body Mass Index 35.1 Tobacco/Smoking Status: Tobacco use Status Tobacco use date assessed 11/04/23 12/30/24 08:38 Patient Tobacco Use Status Never used Tobacco 12/30/24 08:38 e-Cigarette/Vaping Use Never Used 12/30/24 08:38 Thrive Assessment: Date of Thrive Assessment Date Thrive assessed 06/24/24 12/30/24 08:38 Currently or been in a relationship where the following occur: No concerns reported Const General: well developed; No acute distress Nutritional Appearance: well nourished Orientation/consciousness: patient oriented x3 HENOK Head: Yes normocephalic and Yes atraumatic Eyes General: appearance normal, both eyes and all related structures Pupils: Equal, round and reactive pupils present EOM: EOMs intact bilaterally Resp Effort & Inspection: normal respiratory effort Auscultation: clear to auscultation bilaterally Cardio Rate: regular rate Rhythm: regular rhythm Heart sounds: S1 normal heart sound present, S2 normal heart sound present, no gallops, no murmurs and no rubs Neuro General: patient oriented x3 and gait normal Cranial nerves: Yes Equal, round and reactive pupils present Psych Affect: normal affect Coding Level of Care Code Est Pt Level 4 (64080) Diagnoses Renovascular hypertension I15.0 Hypertension type: renovascular hypertension Type 2 diabetes mellitus with diabetic nephropathy, with long-term current use of insulin E11.21; Z79.4 Diabetes mellitus type: type 2 Screening for tuberculosis Z11.1 Assessment & Plan Assessment & Plan (1) HTN (hypertension): Code(s): I10 - Essential (primary) hypertension Category: Medical Qualifiers: Hypertension type: renovascular hypertension Qualified Code(s): I15.0 - Renovascular hypertension (2) Diabetes mellitus with diabetic nephropathy, with long-term current use of insulin: Code(s): E11.21 - Type 2 diabetes mellitus with diabetic nephropathy; Z79.4 - long term care pharmacist (current) use of insulin Category: Medical Qualifiers: Diabetes mellitus type: type 2 Qualified Code(s): E11.21 - Type 2 diabetes mellitus with diabetic nephropathy; Z79.4 - correction (current) use of insulin (3) Screening for tuberculosis: Code(s): Z11.1 - Encounter for screening for respiratory tuberculosis Category: Medical Plan: Patient needs screening for tuberculosis for work Ordered Plan Blood pressure improves with relaxation. Had increased Farxiga at last visit due to report of left eye diabetic retinopathy and need for tighter blood sugar control. Recommending goal of 6.5% for tight blood sugar control. A1c has climbed however 6.5% to 6.9%. He notes blood sugars in the mornings are frequently from 100-140 and sometimes 160. Rarely gets low blood sugars and has been cookies to deal with this. Encouraged him to try a snack with more complex carbohydrate Given A1c has climbed has rare low blood sugars which he knows how to deal with, will have increase his Lantus from 20U daily to 22U daily. Orders: Orders AMB Hemoglobin A1c Today E11.21 - Type 2 diabetes mellitus with diabetic nephropathy, Z79.4 - long term care pharmacist (current) use of insulin Comprehensive [place]. Panel Fast Today Z00.00 - Encounter for general adult medical examination without abnormal findings Complete Blood Count Auto Diff Today Z00.00 - Encounter for general adult medical examination without abnormal findings Lipid Panel Today Z00.00 - Encounter for general adult medical examination without abnormal findings TSH reflex Free T4 Today Z00.00 - Encounter for general adult medical examination without abnormal findings T Spot TB Today Z11.1 - Encounter for screening for respiratory tuberculosis Microalbumin, Random (w Creat) Today I10 - Essential (primary) hypertension Prostate Specific Antigen Scr Today Z12.5 - Encounter for screening for malignant neoplasm of prostate UA CC w/rflx Micro + Cult Today Z00.00 - Encounter for general adult medical examination without abnormal findings Medications: Changed From insulin glargine (Lantus Solostar U-100 Insulin) 20 units (0.2 mL) subcut BEDTIME 30 days 6 mL 4RF To insulin glargine (Lantus Solostar U-100 Insulin) 22 units (0.22 mL) subcut BEDTIME 9 mL 4RF 30 days
[2024-12-30 08:42] VITALS: BP 140/64; PULSE 78; RESP 14; TEMP 36.6; O2SAT 97; BMI 35.1
[2024-12-30 08:45] VITALS: BP 100/60
== END 2024-12-30 09:11 | disposition home or self-care (01) ==
LOC: HO.HMCFM 08:16
PROVIDERS: PCP Family Medicine; Visit Provider Family Medicine
DX: I15.0 Renovascular hypertension (principal); E11.21 Type 2 diabetes mellitus with diabetic nephropathy; Z79.4 Long term (current) use of insulin; Z11.1 Encounter for screening for respiratory tuberculosis

== ENCOUNTER → 2024-12-30 08:16 | Outpatient (BNVA) | payer OTHER, SELFPAY | PROVIDERS: PCP Family Medicine; Visit Provider Family Medicine | DX: I15.0 Renovascular hypertension (principal); E11.319 Type 2 diabetes mellitus with unspecified diabetic retinopathy without macular edema | CPT/HCPCS: 99212 ==

== ENCOUNTER 2024-12-30 09:36 | Outpatient (REF) | payer OTHER, SELFPAY ==
[2024-12-30 11:14] LABS: MANUAL DIFF FLAG NO
[2024-12-30 11:33] LABS: Hematocrit 50.6 % (42.0-52.0); Hemoglobin 16.0 g/dl (14.0-18.0); Imm Gran Abs Auto 0.04 X10*3/uL (0.00-0.03); Imm Gran Pct Auto 0.6 % (0.0-0.4); Lymphocytes Absolute Auto 1.8 X10*3/uL (1.2-4.9); Mean Corpuscular HGB Conc 31.6 g/dl (31.0-36.0); Mean Corpuscular Hemoglobin 28.1 pg (27.0-33.0); Mean Corpuscular Volume 88.9 fL (80.0-98.0); NRBC Abs Auto 0.000 X10*3/uL (0.0-0.012); NRBC Pct Auto 0.0 /100WBC (0.0-0.2); Platelet Count 183 X10*3/uL (160-400); Red Blood Count 5.69 X10*6/uL (4.60-5.80); White Blood Count 6.9 X10*3/uL (4.8-10.8)
[2024-12-30 11:41] LABS: Appearance Urine Clear; Glucose Urine UA >=1000 mg/dL (Negative); PH 6.0 (5.0-9.0); Specific Gravity - Urine 1.025 (1.005-1.025); UMIC TRIGGER UACC YES
[2024-12-30 12:01] LABS: Protein/Creatinine Ratio, Ur 0.51 (<0.2); Total Protein Urine Random 67 mg/dL (<12)
[2024-12-30 12:02] LABS: Microalbum/Creatinine Ratio Ur 137.9 ug/mg cr (<30)
[2024-12-30 12:04] LABS: Alanine Aminotransferase 16 U/L (0-40); Albumin Level 4.7 g/dL (3.5-5.0); Alkaline Phosphatase 140 U/L (39-117); Anion Gap 12 (12-20); Aspartate Amino Transferase 23 U/L (5-37); Blood Urea Nitrogen 24 mg/dL (9-16); Calcium 9.1 mg/dL (8.4-10.2); Carbon Dioxide 26 mmol/L (22-29); Chloride 108 mmol/L (96-108); Cholesterol 159 mg/dL (<200); Estimated Glomerular Filt Rate 37; HDL Cholesterol 32 mg/dL (>40); Magnesium 2.4 mg/dL (1.6-2.6); Potassium 3.6 mmol/L (3.3-5.1); Sodium 142 mmol/L (135-145); Total Protein 8.1 g/dL (6.5-8.0); Triglycerides 115 mg/dL (<150)
[2024-12-30 12:32] LABS: Parathyroid Hormone Intact 187.4 pg/mL (8.7-77.1)
[2025-01-02 16:49] LABS: TS Negative Control Passed; TS Panel A 1; TS Panel B 1; TS Positive Control Passed; TSpotTB Negative (Negative)
== END 2024-12-30 09:37 | disposition home or self-care (01) ==
LOC: HO.WFDLDS 09:36
PROVIDERS: Referring Provider Internal Medicine Nephrology; Visit Provider Family Medicine
DX: Z00.00 Encounter for general adult medical examination without abnormal findings (principal); I15.0 Renovascular hypertension; E11.21 Type 2 diabetes mellitus with diabetic nephropathy; Z11.1 Encounter for screening for respiratory tuberculosis; Z79.4 Long term (current) use of insulin; Z12.5 Encounter for screening for malignant neoplasm of prostate; Z94.0 Kidney transplant status
CPT/HCPCS: 36415; 80053; 80061; 80169; 81001; 81003; 82043; 82306; 82570; 83735; 83970; 84100; 84153; 84156; 84443; 85025; 86481

== ENCOUNTER 2025-01-10 08:06 | Outpatient (REF) | payer OTHER, SELFPAY ==
--- OUTSIDE RECORDS SUMMARY | 2024-12-30 05:00 | XMS_ITS ---
Author Organization [facility] Address [address] [place] [address] Care Team Providers Care Sericulturist Name Role Phone Geovanni Pink MD Primary Care Provider Mary Canela [phone] Encounters Encounter Location Date Provider Diagnosis [address] [address] 12/30/2024 Mary Rea Plan Of Treatment Next Appt Details Provider Name:Mary vaughan, 01/20/2025 10:15:00 AM, [address] [place] [address], [address], Progress Notes * Raheem CASTRODOB:1970 ( 54 yo M)Acc No.[id number]:12/30/2024 Progress Note Patient: Raheem HUITRON Provider: Aquilino Rea DPM :1970 A ge:54 Y S ex:Male Date:12/30/2024 Address:[address] [place] [address], [facility] [place] Pcp:Geovanni Pink MD Subjective: * Chief Complaints: [...] 0 12/30/2024 Generated for Deedee huerta/Mike/Ric on: 01/10/2025 08:09 AM EDT
--- NOTE | ~2025-01-10 | US_ITS ---
CLINICAL HISTORY: I73.9 - Peripheral vascular disease, unspecified Ankle-brachial index Comparison: US/MA/SR - US LOWER EXTREMITY ARTERIES BILATERAL - 12/07/23 08:27 EDT US/MA/SR - US LOWER EXTREMITY ARTERIES BILATERAL - 07/13/23 08:02 EST Findings: Right brachial artery 122 mmHg Right posterior tibial artery 91 mmHg Right dorsalis pedis artery 118 mmHg Right NOY:0.90 Left brachial artery 131 mmHg Left posterior tibial artery 150 mmHg Left dorsalis pedis artery 126 mmHg Left NOY:1.15 Left arterial waveform:Triphasic flow throughout NOY and estimated severity of disease: 0.96 - 1.30 generally normal 0.81 - 0.95 mild disease 0.51 - 0.80 moderate disease 0.31 - 0.50 moderate to severe disease < 0.30 severe disease Impression: 1. Right NOY 0.90 reflecting mild disease 2. Left NOY normal at 1.15 Bilateral lower extremity duplex arterial Doppler Comparison: US/MA/SR - US LOWER EXTREMITY ARTERIES BILATERAL - 12/07/23 08:27 EDT US/MA/SR - US LOWER EXTREMITY ARTERIES BILATERAL - 07/13/23 08:02 EST Technique: Grayscale/Color and duplex Doppler sonographic evaluation of the arterial system within both lower extremities. Peak systolic velocities recorded in centimeters per second. Findings: Right lower extremity VP RHEUMATOLOGY: Triphasic. 90.1 cm/s SFA: Triphasic. 92.9 cm/s Popliteal artery: Monophasic. 262.3 cm/s Posterior tibial: Monophasic. 65.3 cm/s. Occluded mid calf level. Dorsalis pedis: Monophasic. 100.0 cm/s Anterior tibial: Monophasic. 82.5 cm/s Peroneal: Not visualized. Left lower extremity VP RHEUMATOLOGY: Triphasic. 100.4 cm/s SFA: Triphasic. 96.2cm/s Popliteal artery: Triphasic. 76.4 cm/s Posterior tibial: Biphasic. 59.6 cm/s Dorsalis pedis: Monophasic. 87.9 cm/s Anterior tibial: Monophasic. 93.0 cm/s Peroneal: Not visualized. Impression: 1. The right posterior tibial artery was occluded mid calf level 2. Hemodynamically significant stenosis right popliteal artery with monophasic flow in the right calf. 3. No hemodynamically significant stenotic lesions left lower extremity although there was monophasic flow in the left dorsalis pedis artery and left anterior tibial artery with slight increased peak systolic velocities. 4. Flow could not be confirmed in either peroneal artery. This document has been electronically signed by: David Castanon MD on 01/10/2025 11:35:14
--- OUTSIDE RECORDS SUMMARY | 2025-01-10 08:10 | XMS_ITS | Clinical Summary ---
Author Organization [facility] Address [address] [facility] [address] [place] [address] Phone Care Team Providers Care Job Molder Name Role Phone Geovanni Pink MD Primary Care Provider [phone] Allergies No known active allergies Medications amLODIPine [...] 3 Active Eliquis 5 MG tabletIndication s:Other long-term current drug therapy Take 1 tablet (5 [...] ankle and/or foot 11/20/2021 12/11/2021 Atherosclerosis of [place] ar teries of the extremities 11/20/2021 12/11/2021 [...] EDT Performed at: 01 - [facility] [address] [id number] Assurance Senior: Debora Brian MD, Phone: [phone] Skyler Banda MD LAB BLOOD ORDERABLES Final Resu lt [facility] from Last 3 Months or Most Recently Relevant to Health Maintenance Insurance [facility] ([id number]) [place] [address] Care Teams Job Molder Relationship Specialty Start Date End Date Geovanni Pink MD [address] [place] [address] PCP - General Family Medicine 04/23/23
--- OUTSIDE RECORDS SUMMARY | 2025-01-10 08:10 | XMS_ITS | Clinical Summary ---
Author Organization Patient Business Ser [facility] Address [address] [place] [address] Care Team Providers Care Impregnating Machine Operator Name Role Phone Lianne Manuel [...] Panel) 02/26/2022 Colorectal Cancer Screening: Colonoscopy 02/26/2022 HIV Screening 02/26/2022 Hepatitis C Screening 02/26/2022 Social Influencers of Health Screening 02/26/2022 Depression Screening 06/15/2024 Influenza Vaccine (#1) 2025 HIB Vaccines Aged [...] age to complete this topic Care Teams Impregnating Machine Operator Relationship Specialty Start Date End Date Lianne Manuel MD [address] [place] [address] PCP - General Internal Medicine 01/30/22
--- OUTSIDE RECORDS SUMMARY | 2025-01-10 08:10 | XMS_ITS | Clinical Summary ---
Author Organization [facility] Address [address] [place] [address] Care Team Providers Care Poured Wall Foreman Name Role Phone Lianne Manuel MD Primary [...] MGD MEDICARE OUT OF NETWORK JAYLEN FARIA [id number] * Guarantor: [employer] Account Type Relation to Patient Date of Phone Billing Address Client/Submitter Employer Care Teams Poured Wall Foreman Relationship Specialty Start Date End Date Lianne Manuel MD [address] [place] [id number] PCP - General Internal Medicine 07/10/22
--- OUTSIDE RECORDS SUMMARY | 2025-01-10 08:10 | XMS_ITS | Clinical Summary ---
Author Organization [facility] Address [address] [facility] [address] [place] [address] Phone Care Team Providers Care Station Repairer Name Role Phone Geovanni Pink MD [...] topic Medical Devices Not on file Insurance [facility] ONE CARE MEDICARE REPLACEMENT [facility] MEDIC[facility] REPLACEMENT [facility] MEDIC[facility] REPLACEMENT [facility] MEDICARE REPLACEMENT [facility] ONE CARE MEDICARE REPLACEMENT [facility] CARE MEDICARE REPLACEMENT Care Teams Station Repairer Relationship Specialty Start Date End Date Geovanni Pink MD [address] [place] [address] PCP - General Family Medicine 11/02/23 Additional Source Comments The information contained in this document represents components of the legal health record. It is not the complete legal health record.[facility]
== END 2025-01-10 08:07 | disposition home or self-care (01) ==
LOC: HO.US 08:06
PROVIDERS: PCP Family Medicine; Visit Provider Surgery Vascular Surgery
DX: I73.9 Peripheral vascular disease, unspecified (principal)
CPT/HCPCS: 93922; 93925

== ENCOUNTER → 2025-01-10 08:08 | Outpatient (BNV) | payer OTHER, SELFPAY | PROVIDERS: PCP Family Medicine; Visit Provider Radiology Diagnostic Radiology | DX: I70.201 Unspecified atherosclerosis of native arteries of extremities, right leg (principal); I70.92 Chronic total occlusion of artery of the extremities | CPT/HCPCS: 93922; 93925 ==

== ENCOUNTER 2025-01-18 07:21 | Outpatient (REF) | payer OTHER, SELFPAY ==
--- OUTSIDE RECORDS SUMMARY | 2025-01-18 07:24 | XMS_ITS | Clinical Summary ---
Author Organization Patient Business [facility] Address [address] [place] [address] Care Team Providers Care Bariatric Surgeon Name Role Phone Lianne Manuel MD Primary [...] age to complete this topic Care Teams Bariatric Surgeon Relationship Specialty Start Date End Date Lianne Manuel MD [address] [place] [address] PCP - General Internal Medicine 01/30/22
--- OUTSIDE RECORDS SUMMARY | 2025-01-18 07:24 | XMS_ITS | Clinical Summary ---
Author Organization [facility] Address [address] [facility] [address] [place] [address] Phone Care Team Providers Care Evs Tech Name Role Phone Geovanni Pink MD Primary [...] topic Medical Devices Not on file Insurance [facility] ONE CARE MEDICARE REPLACEMENT [facility] MEDICARE REPLACEMENT [facility] MEDICARE REPLACEMENT [facility] MEDICARE REPLACEMENT [facility] ONE CARE MEDICARE REPLACEMENT [facility] CARE MEDICARE REPLACEMENT Care Teams Evs Tech Relationship Specialty Start Date End Date Geovanni Pink MD [address] [place] [address] PCP - General Family Medicine 11/02/23 Additional Source Comments The information contained in this document represents components of the legal health record. It is not the complete legal health record.[facility]
--- OUTSIDE RECORDS SUMMARY | 2025-01-18 07:24 | XMS_ITS | Clinical Summary ---
Author Organization [facility] Address [address] [place] [address] Care Team Providers Care Flange Machine Operator Name Role Phone Lianne Manuel MD Primary Care Provider [phone] Social History Tobacco Use Types Packs/Day Years [...] MGD MEDICARE OUT OF NETWORK JAYLEN FARIA [id number] * Guarantor: [employer] Account Type Relation to Patient Date of Phone Billing Address Client/Submitter Employer Care Teams Flange Machine Operator Relationship Specialty Start Date End Date Lianne Manuel MD [address] [place] [address] PCP - General Internal Medicine 07/10/22
--- OUTSIDE RECORDS SUMMARY | 2025-01-18 07:24 | XMS_ITS | Clinical Summary ---
Author Organization [facility] Address [address] [facility] [address] [place] [address] Phone Care Team Providers Care Revenue Stamp Cutter Name Role Phone Geovanni Pink MD Primary Care Provider [phone] Allergies No known active allergies Medications amLODIPine [...] 3 Active Eliquis 5 MG tabletIndication s:Other nursing home current drug therapy Take 1 tablet (5 [...] ankle and/or foot 11/20/2021 12/11/2021 Atherosclerosis of [place]vasupai ar teries of the extremities 11/20/2021 12/11/2021 [...] PM EDT Performed at: 01 - [facility] [address] [id number] Slp: Debora Brian MD, Phone: [phone] Skyler Banda MD LAB BLOOD ORDERABLES Final Resu lt [facility] from Last 3 Months or Most Recently Relevant to Health Maintenance Insurance [facility] ([id number]) [place] [address] Care Teams Revenue Stamp Cutter Relationship Specialty Start Date End Date Geovanni Pink MD [address] [place] [address] PCP - General Family Medicine 04/23/23
[2025-01-18 07:36] LABS: MANUAL DIFF FLAG NO
[2025-01-18 08:21] LABS: Hematocrit 46.2 % (42.0-52.0); Hemoglobin 14.6 g/dl (14.0-18.0); Imm Gran Abs Auto 0.05 X10*3/uL (0.00-0.03); Imm Gran Pct Auto 0.6 % (0.0-0.4); Lymphocytes Absolute Auto 2.3 X10*3/uL (1.2-4.9); Mean Corpuscular HGB Conc 31.6 g/dl (31.0-36.0); Mean Corpuscular Hemoglobin 27.8 pg (27.0-33.0); Mean Corpuscular Volume 88.0 fL (80.0-98.0); NRBC Abs Auto 0.000 X10*3/uL (0.0-0.012); NRBC Pct Auto 0.0 /100WBC (0.0-0.2); Platelet Count 165 X10*3/uL (160-400); Red Blood Count 5.25 X10*6/uL (4.60-5.80); White Blood Count 8.7 X10*3/uL (4.8-10.8)
[2025-01-18 08:33] LABS: Appearance Urine Clear; Glucose Urine UA >=1000 mg/dL (Negative); PH 5.5 (5.0-9.0); Specific Gravity - Urine 1.020 (1.005-1.025); UMIC TRIGGER UACC YES
[2025-01-18 09:01] LABS: Alanine Aminotransferase 11 U/L (0-40); Anion Gap 11 (12-20); Aspartate Amino Transferase 19 U/L (5-37); Blood Urea Nitrogen 24 mg/dL (9-16); Calcium 8.8 mg/dL (8.4-10.2); Carbon Dioxide 25 mmol/L (22-29); Chloride 107 mmol/L (96-108); Estimated Glomerular Filt Rate 37; Magnesium 2.3 mg/dL (1.6-2.6); Potassium 3.3 mmol/L (3.3-5.1); Sodium 140 mmol/L (135-145)
== END 2025-01-18 07:22 | disposition home or self-care (01) ==
LOC: HO.LAB 07:21
PROVIDERS: PCP Family Medicine; Visit Provider Internal Medicine Nephrology
DX: Z00.00 Encounter for general adult medical examination without abnormal findings (principal); I15.0 Renovascular hypertension; Z94.0 Kidney transplant status
CPT/HCPCS: 36415; 80051; 80169; 81001; 82306; 82310; 82565; 83735; 84100; 84450; 84460; 84520; 85025

== ENCOUNTER 2025-01-23 06:10 | Outpatient (REF) | payer OTHER, SELFPAY ==
[2025-01-23 06:43] LABS: MANUAL DIFF FLAG NO
[2025-01-23 07:38] LABS: Hematocrit 46.6 % (42.0-52.0); Hemoglobin 14.9 g/dl (14.0-18.0); Imm Gran Abs Auto 0.05 X10*3/uL (0.00-0.03); Imm Gran Pct Auto 0.7 % (0.0-0.4); Lymphocytes Absolute Auto 2.0 X10*3/uL (1.2-4.9); Mean Corpuscular HGB Conc 32.0 g/dl (31.0-36.0); Mean Corpuscular Hemoglobin 28.2 pg (27.0-33.0); Mean Corpuscular Volume 88.1 fL (80.0-98.0); NRBC Abs Auto 0.000 X10*3/uL (0.0-0.012); NRBC Pct Auto 0.0 /100WBC (0.0-0.2); Platelet Count 190 X10*3/uL (160-400); Red Blood Count 5.29 X10*6/uL (4.60-5.80); White Blood Count 7.4 X10*3/uL (4.8-10.8)
[2025-01-23 08:19] LABS: Anion Gap 12 (12-20); Blood Urea Nitrogen 23 mg/dL (9-16); Calcium 9.4 mg/dL (8.4-10.2); Carbon Dioxide 24 mmol/L (22-29); Chloride 108 mmol/L (96-108); Estimated Glomerular Filt Rate 37; Potassium 3.3 mmol/L (3.3-5.1); Sodium 141 mmol/L (135-145)
== END 2025-01-23 06:11 | disposition home or self-care (01) ==
LOC: HO.LAB 06:10
PROVIDERS: PCP Family Medicine; Visit Provider Podiatrist
DX: L97.512 Non-pressure chronic ulcer of other part of right foot with fat layer exposed (principal)
CPT/HCPCS: 36415; 80048; 85025; 85652; 86140

== ENCOUNTER 2025-02-08 10:05 | Outpatient (AMB) | payer OTHER, SELFPAY ==
--- OUTSIDE RECORDS SUMMARY | 2024-12-30 05:00 | XMS_ITS ---
Author Organization [facility] Address [address] [place] [address] Care Team Providers Care Social Worker Assistant Name Role Phone Geovanni Pink MD Primary Care Provider Mary Canela [phone] Encounters Encounter Location Date Provider Diagnosis [address] [address] 12/30/2024 Mary Rea Plan Of Treatment Next Appt Details Provider Name:Mary vaughan, 02/24/2025 10:30:00 AM, [address] [place] [address], [phone], Progress Notes * Raheem CASTRODOB:1970 ( 54 yo M)Acc No.[id number]:12/30/2024 Progress Note Patient: Raheem HUITRON Provider: Aquilino Rea DPM :1970 A ge:54 Y S ex:Male Date:12/30/2024 Address:[address] [place] [address], [facility] Pcp:Geovanni Pink MD Subjective: * Chief Complaints: [...] 12/30/2024 Generated for Deedee huerta/Mike/Ric on: 0 02/08/2025 10:53 AM EDT
--- NOTE | 2025-02-08 10:18 | MHC.PC.OV ---
Vital Signs 02/08/25 10:30 Height 5 ft 9 in Weight 218 lb BMI 32.2 BP 113/71 Blood Pressure Location Lt brachial Position Sitting Respiration 16 Pulse 79 Pulse Source Pulse Oximeter Temp 97.9 F Temp Source Oral Pulse Oximetry (%) 97 Oxygen Delivery Method Room Air Intake Visit Reasons: CPE 15 mins Intake Note: patient here for CPE Thermodynamicist Required: No Allergies No Known Allergies Allergy (Verified 02/08/25 10:23) Tobacco use date assessed: 02/08/25 Dental Screening Dental Screen Date: 02/08/25 Did you have a dental visit in the last 12 months?: No Did you have a dental problem in the last 6 months where you did not have access to dental care?: No Was dental information given to patient?: Patient has dentist HPI CPE 15 mins HPI Details 54 y/o male presents for a CPE. Blood pressure today 113/71, 79p. [facility] Medical History HTN (hypertension) PAD (peripheral artery disease) CKD (chronic kidney disease) stage 3, GFR 30-59 ml/min MSSA bacteremia Osteomyelitis of third toe of left foot S/P angiogram of extremity (10/08/22) Diabetic ulcer of right foot Osteomyelitis Wound of right foot Chronic right shoulder pain Multinodular goiter Testicular cancer Bleeding internal hemorrhoids Seminoma Paresthesia and pain of extremity Type 2 diabetes mellitus with hyperglycemia, with long-term current use of insulin Type 2 diabetes mellitus with chronic kidney disease Hyperlipidemia Vaccination refused by patient Refused pneumococcal vaccination Anemia in stage 4 chronic kidney disease Acute proliferative glomerulonephritis Secondary hyperparathyroidism of renal origin Mixed dyslipidemia Peripheral vascular disease Carpal tunnel syndrome on left Diabetes mellitus with diabetic nephropathy, with long-term current use of insulin Osteomyelitis of left foot Diabetes mellitus with foot ulcer End-stage renal disease on hemodialysis Surgical History Renal transplant recipient History of amputation (01/19/23) Amputated toe of right foot (10/13/22) History of kidney transplant Kidney transplant recipient Family History (Updated 02/08/25 @ 10:29 by Sultana Orr MA) Father Unknown family medical history Mother Diabetes mellitus HTN (hypertension) CVD (cardiovascular disease) History of CVA (cerebrovascular accident) Stroke Sister Diabetes mellitus Daughter No problems noted. Sister No problems noted. Sister No problems noted. Social History (Updated 02/08/25 @ 10:30 by Sultana Orr MA) Household Members: Family Housing: House Do you presently have visiting nurse or other home services: No Alcohol intake: never Patient Tobacco Use Status: Never used Tobacco e-Cigarette/Vaping Use: Never Used Advance Directives Date on File: 01/16/23 service: No Current occupational status: disabled Current occupation: disability - kidney transplant. Left side dominant Cognitive needs: No Hearing needs: No Vision needs: No Questionnaire Thrive Questionnaire Date Thrive assessed: 06/24/24 I am a: Patient What is your living situation today?: I have a steady place to live Within the past 12 months, did the food you bought not last and you didn't have the money to get more?: I choose not to answer this question Within the past 12 months, did you worry whether your food would run out before you got money to buy more?: I choose not to answer this question Do you have trouble paying for medicines?: No Do you have trouble getting transportation to medical appointments?: No Do you have trouble paying your heating and electricity bill?: No Do you have trouble taking care of your child, family member or friend?: No Do you have trouble with day-to-day activities such as bathing, preparing meals, shopping, managing finances, etc.?: No Are you currently unemployed and looking for a job?: Yes Are you interested in more education?: No Please select the resources that you would like help with: None Currently or been in a relationship where the following occur: No concerns reported THRIVE Score: 0 BRIANNA-7 AMB Questionnaire BRIANNA-7 Date BRIANNA - 7 assessed: 06/24/24 Source: Developed by Drs. Joey Day, Martine Olea, Felipe Robles and colleagues, with an educational marium from [employer]. Review of Systems Const Denies chills, Denies fatigue, Denies fever(s), Denies headache(s) and Denies weakness Eyes Denies change in vision ENT Denies dizziness, Denies headache(s), Denies hearing loss, Denies nasal congestion, Denies sinus pain, Denies sinus pressure and Denies sore throat Card Denies chest pain, Denies lightheadedness, Denies dyspnea and Denies other (palpitations) Resp Denies cough, Denies dyspnea and Denies wheezing GI Denies abdominal pain, Denies melena, Denies hematochezia, Denies change in bowel habits, Denies dyspepsia and Denies nausea Denies hematuria and Denies dysuria Musc Denies abnormal gait, Denies myalgias, Denies arthralgias, Denies numbness and Denies tingling Skin/Breast Denies rash, Denies unusual bruising and Denies wounds Neuro Denies abnormal gait, Denies dizziness, Denies headache(s), Denies memory loss, Denies numbness, Denies Sensory deficit (Neuro), Denies tingling and Denies weakness Psych Denies anxiety, Denies depression and Denies memory loss Endo Denies cold intolerance, Denies fatigue, Denies heat intolerance, Denies polydipsia and Denies polyuria Dany/Lymph Denies easy bleeding and Denies easy bruising Aller/Immun Denies wheezing Physical exam (Primary Care) Vital Signs: Last Vital Signs Temp 97.9 F 02/08/25 10:30 Pulse 79 02/08/25 10:30 Resp 16 02/08/25 10:30 BP 113/71 02/08/25 10:30 Pulse Ox 97 02/08/25 10:30 Oxygen Delivery Method Room Air 02/08/25 10:30 BMI result Body Mass Index 32.2 Tobacco/Smoking Status: Tobacco use Status Tobacco use date assessed 02/08/25 02/08/25 10:33 Patient Tobacco Use Status Never used Tobacco 02/08/25 10:30 e-Cigarette/Vaping Use Never Used 02/08/25 10:30 Thrive Assessment: Date of Thrive Assessment Date Thrive assessed 06/24/24 02/08/25 10:21 Currently or been in a relationship where the following occur: No concerns reported Const General: no acute distress, well developed, alert and awake Nutritional Appearance: well nourished Orientation/consciousness: patient oriented x3 HENMT Head: Yes normocephalic and Yes atraumatic Ears: hearing grossly normal bilaterally and TM's normal bilaterally General nose exam: Normal external nose present and Normal nares present Mouth: Normal oral and palatal mucosa present and moist mucous membranes Teeth and gingiva: dentition normal Throat: Yes posterior oropharynx normal Eyes General: appearance normal, both eyes and all related structures Pupils: Equal, round and reactive pupils present and Pupil accommodation reflex normal EOM: EOMs intact bilaterally Neck Neck: Yes normal visual inspection, Yes no lymphadenopathy and Yes trachea midline Thyroid: Thyroid normal Carotids: no bruits Lymphatic: no lymphadenopathy noted Chest Chest palpation & inspection: normal inspection of the chest Resp Effort & Inspection: normal respiratory effort Auscultation: clear to auscultation bilaterally Cardio Rate: regular rate Rhythm: regular rhythm Heart sounds: S1 normal heart sound present, S2 normal heart sound present, no gallops, no murmurs and no rubs Bruits: no abdominal aortic bruits and no carotid bruits GI Palpation (GI): No Abdominal aortic bruit present, Soft to palpation, nontender, No hepatosplenomegaly present and No Rebound tenderness present Auscultation: normal bowel sounds General: Yes no CVA tenderness Back/Spine/Pelvis Back: no CVA tenderness Cervical Spine: cervical ROM normal and No Cervical spine tenderness Thoracic/Lumbar Spine: thoraco-lumbar ROM normal, No pain with thoraco-lumbar ROM, No thoracic spinal tenderness and No lumbar spinal tenderness Skin Lesions: no lesions Rashes: no rashes Trauma: no lacerations or abrasions Wounds: no wounds Nails: normal Neuro General: patient oriented x3 Cranial nerves: Yes Equal, round and reactive pupils present Cognition (Neuro): normal cognition Gait exam (Neuro): Normal gait present Motor exam (neuro): 5/5 motor strength present throughout Sensory Exam: No Sensory deficit (Neuro) Deep tendon reflexes (DTR's): Right patellar reflex intensity grade: 2+ and Left patellar reflex intensity grade: 2+ Extrem General: Yes normal to inspection and No edema Psych Appearance: grossly normal Affect: normal affect Attitude: cooperative Thought process: Normal thought process present Coding Level of Care Code Est Pt Prev Care 40-64y(38475) Diagnoses Adult general medical exam Z00.00 Renovascular hypertension I15.0 Hypertension type: renovascular hypertension Screening for colon cancer Z12.11 Screening for prostate cancer Z12.5 Right foot ulcer L97.519 Type 2 diabetes mellitus with stage 3 chronic kidney disease, with long-term current use of insulin, unspecified whether stage 3a or 3b CKD E11.22; N18.30; Z79.4 Chronic kidney disease stage: stage 3 (moderate) Chronic kidney disease stage 3 subtype: unspecified whether 3a or 3b Diabetes mellitus exterminator helper insulin use: with exterminator helper use End-stage renal disease on hemodialysis N18.6; Z99.2 Screening for tuberculosis Z11.1 Assessment & Plan Assessment & Plan (1) Adult general medical exam: Code(s): Z00.00 - Encounter for general adult medical examination without abnormal findings Category: Medical Plan: 54-year-old male presents for complete physical exam Exam within normal limits except as described below Encouraged healthy diet with active lifestyle and plenty of exercise (2) HTN (hypertension): Code(s): I10 - Essential (primary) hypertension Category: Medical Qualifiers: Hypertension type: renovascular hypertension Qualified Code(s): I15.0 - Renovascular hypertension Plan: Blood pressure is controlled. Goal is less than 140/90 Continue current medications (3) Screening for colon cancer: Code(s): Z12.11 - Encounter for screening for malignant neoplasm of colon Category: Medical Plan: Cologuard test in 2022 was negative for abnormality. Up-to-date. Will repeat in 2025 (4) Screening for prostate cancer: Code(s): Z12.5 - Encounter for screening for malignant neoplasm of prostate Category: Medical Plan: PSA in December was within normal range Will continue annual screening for prostate cancer (5) Right foot ulcer: Code(s): L97.519 - Non-pressure chronic ulcer of other part of right foot with unspecified severity Category: Medical Plan: Right foot ulcer Was seen by Podiatry and now followed by Ortho Right foot in brace Continue antibiotics, dressing changes, race and follow-up with ortho as recommended (6) Type 2 diabetes mellitus with chronic kidney disease: Code(s): E11.22 - Type 2 diabetes mellitus with diabetic chronic kidney disease Category: Medical Qualifiers: Chronic kidney disease stage: stage 3 (moderate) Chronic kidney disease stage 3 subtype: unspecified whether 3a or 3b Diabetes mellitus nursing home insulin use: with nursing home use Qualified Code(s): E11.22 - Type 2 diabetes mellitus with diabetic chronic kidney disease; N18.30 - Chronic kidney disease, stage 3 unspecified; Z79.4 - USP (current) use of insulin Plan: Taking medication as prescribed. His A1c had risen slightly but was still within controlled range at last check. No medication changes made today. Will follow-up at next visit (7) End-stage renal disease on hemodialysis: Comment: followed by Dr. Peck, renal function back to baseline Code(s): N18.6 - End stage renal disease; Z99.2 - Dependence on renal dialysis Category: Medical Plan: Stable Follow-up with nephrology as recommended (8) Screening for tuberculosis: Code(s): Z11.1 - Encounter for screening for respiratory tuberculosis Category: Medical Plan: T spot test for tuberculosis is negative.
[2025-02-08 10:30] VITALS: BP 113/71; PULSE 79; RESP 16; TEMP 36.6; O2SAT 97; BMI 32.2
--- OUTSIDE RECORDS SUMMARY | 2025-02-08 10:54 | XMS_ITS | Clinical Summary ---
Author Organization [facility] Address [address] [place] [phone] Phone Care Team Providers Care Bobtailer Name Role Phone Geovanni Pink MD Primary [...] topic Medical Devices Not on file Insurance [facility] ONE CARE MEDICARE REPLACEMENT [facility] MEDICARE [facility]PLACEMENT [facility] MEDICARE REPLACEMENT [facility] MEDICARE REPLACEMENT [facility] ONE CARE MEDICARE REPLACEMENT [facility] CARE MEDICARE REPLACEMENT Care Teams Bobtailer Relationship Specialty Start Date End Date Geovanni Pink MD [address] [place] [address] PCP - General Family Medicine 11/02/23 Additional Source Comments The information contained in this document represents components of the legal health record. It is not the complete legal health record.[facility]
--- OUTSIDE RECORDS SUMMARY | 2025-02-08 10:54 | XMS_ITS | Clinical Summary ---
Author Organization Patient Business Ser [facility] Address [address] [place] [address] Care Team Providers Care Citizenship Instructor Name Role Phone Lianne Manuel MD Primary [...] age to complete this topic Care Teams Citizenship Instructor Relationship Specialty Start Date End Date Lianne Manuel MD [address] [place] [address] PCP - General Internal Medicine 01/30/22
--- OUTSIDE RECORDS SUMMARY | 2025-02-08 10:54 | XMS_ITS | Patient Health Record ---
Author Organization [facility] Address [address] [facility] [place] [address] Care Team Providers Care Print Shop Manager Name Role Phone Joesph CHEUNG, Geovanni Primary Care Provider Mary Canela Unavailable [phone] Rajesh Oreilly Unavailable [phone] Allergies No Known Allergies Results Component Value [...] Date Status Tacrolimus 4tabs Twice a day N ot-Taking Losartan Potassium 28 untis Once a day Not-Taking Cipro 500 MG 1 tablet Orally ever y 12 hrs; Duration: 7 days 04/16/2023 Not-Taking Extra Depth Diabetic Shoes with 3 Pair Custom heat-molded multi-density innersoles for 1 year Dx: Not-Taking Extra Depth Orthopedic Shoes (1 Pair) with Customized Heat Molded Multidensity Innersoles (3 Pair) as directed Dx: IDDM/Polyneuropathy (E10.42), Hammertoe Foot Deformity (M20.41,M20.42), Preulcerative Skin Lesion(s) (L85.1) Not-Taking Antibiotic Chest Not-Takin g Doxycycline Monohydrate 100 MG 1 capsule Orally Twice a day; Duration: 14 days 14 adys Not-Taking Amoxicillin-Pot Clavulanate 875 875-125 MG one tab Orally every 12 hrs; Duration: 10 day(s) 12/04/2022 Not-Taking Cephalexin 500 MG 1 capsule Orally Twi ce a day; Duration: 7 days 04/17/2023 Not-Taki ng Rayaldee 30 MCG 1 capsule at bedtime Orally Once a day; Duration: 30 day(s) Active Lantus Active amLODIPine Besylate Once a day Active Rosuvastatin Calcium 10 MG Oral; Duration: 90 Days Acti ve Aspir-81 once a day Not-Takin g Mycophenolic Acid 3 tabs Twice day Active Ammonium Lactate 12 % 1 application Externally to affected areas of dry skin to feet except for between the toes Twice a day; Duration: 30 days Active Extra Depth Orthopedic Shoes (1 Pair) with Customized Heat Molded Multidensity Innersoles (3 Pair) as directed Dx: NIDDM/Polyneuropathy (E11.42), Hammertoe Foot Deformity (M20.41,M20.42), Preulcerative Skin Lesion(s) (L85.1 12/15/2023 Active Doxycycline Monohydrate 100 MG 1 capsule Orally Once a day; Duration: 5 days 01/04/2025 Active Mupirocin 2 % 1 application to ope n wound Externally Twice a day; Duration: 30 days 12/06/2024 Active Bactrim DS 800-160 MG 1 tablet Orally ev rad 12 hrs; Duration: 10 day(s) 12/06/2024 Active Farxiga 10 MG TAKE 1 TABLET BY JONATHON TH EVERY DAY IN THE MORNING FOR 90 DAYS Oral; Duration: 90 Days Active metFORMIN HCl Not-Ta [place] Farxiga 10 MG Oral; Duration: 90 Days Not-Taking Farxiga 5 MG 1 tablet Orally Once a day Not-Taking Ketoconazole 2 % 1 application Apply a thin layer of cream externally Twice a day to scaling areas on feet including between the toes; Duration: 30 days 01/04/2025 Active Doxycycline Monohydrate 100 MG 1 capsule Orally Twice a day; Duration: 14 days 01/20/2025 Active Immunizations Vaccine Route Administration Date Status [...] Are you an other tobacco user? No AUDIT-C (Standard) Question Answer Notes Did you have a drink containing alcohol in the p ast year? No Points 0 Interpretation Negative Problems Problem Type SNOMED Code ICD Code Onset Dates Problem Status W/U Status Risk Notes Problem Polyneuropathy due to diabetes mellitus type I ([id number]) Type 1 diabetes mellitus with diabetic polyneuropathy (E10.42) Active confirmed Problem Atherosclerosis of artery of both lower extremities (I70.203) Active confirmed Problem Acute osteomyelitis of right foot ([id number] ) Acute osteomyelitis of right foot (M86.171) Active confirmed Possible Vital Signs Blood pressure diastolic 60 mm Hg 01/20/2025 Height 5ft9in in 01/20/2025 Blood pressure systolic 128 mm Hg 01/20/2025 Weight 212 lbs 01/20/2025 BMI 31.3 kg/m2 01/20/2025 Procedures Procedure Date Ordered Date Performed Result Body Sit e 16828-TEGSVHU SKIN/TISSUE 02/11/2024 N/A Encounters Encounter Location Date Provider Diagnosis [facility] [address] [place] [phone] 02/11/2024 Rajesh Afia Skin ulcer of toe of left foot with fat layer exposed L97.522 and Type 1 diabetes mellitus with diabetic polyneuropathy E10.42 [facility] [address] [address] 04/14/2024 Mary Rea Type 2 diabetes mellitus with diabetic polyneuropathy E11.42 ; Contracture of toe of left foot M20.5X2 ; Tinea unguium B35.1 and Abscess of toe, left L02.612 [facility] [address] [place] [address] 05/04/2024 Mary Rea Type 2 diabetes mellitus with diabetic polyneuropathy E11.42 ; Contracture of toe of left foot M20.5X2 ; Tinea unguium B35.1 and Neuropathic ulcer of left foot, limited to breakdown of skin L97.[address] [address] 07/15/2024 Mary Grossmana Type 2 diabetes mellitus with diabetic polyneuropathy E11.42 ; Contracture of toe of left foot M20.5X2 and Tinea unguium B35.[address] [address] 08/26/2024 Mary Grossmana Neurotrophic ulcer o f left foot limited to breakdown of skin L97.521 ; Xerosis of skin L85.3 and Type 2 diabetes mellitus with diabetic polyneuropathy E11.[address] [address] 10/12/2024 Mary Perica Type 1 diabetes mellitus with diabetic polyneuropathy E10.42 ; Atherosclerosis of artery of both lower extremities I70.203 ; Tinea unguium B35.1 and Neurotrophic ulcer of left foot limited to breakdown of skin L97.[address] [address] 12/06/2024 Mary Perica Neuropathic ulcer of left foot with fat layer exposed L97.522 ; Cellulitis of toe of right foot L03.031 ; Type 2 diabetes mellitus with diabetic polyneuropathy E11.42 ; Abscess of right foot L02.611 and Other hammer toe(s) (acquired), right foot M20.[address] [address] 12/13/2024 Mary Rea Type 2 diabetes mellitus with diabetic polyneuropathy E11.42 ; Cellulitis of toe of right foot L03.031 and Neuropathic ulcer of right foot with fat layer exposed L97.[address] [address] 01/04/2025 Mary Perica Cellulitis of toe of right foot L03.031 ; Neuropathic ulcer of right foot with fat layer exposed L97.512 ; Type 1 diabetes mellitus with diabetic polyneuropathy E10.42 ; Atherosclerosis of artery of both lower extremities I70.203 ; Tinea unguium B35.1 ; Hammertoe of right foot M20.41 ; Contusion of right lesser toe(s) without damage to nail, initial encounter S90.121A and Tinea pedis of both feet B35.3 [facility] [address] [address] 01/20/2025 Mary Perica Neuropathic ulcer of right foot with fat layer exposed L97.512 ; Acute osteomyelitis of right foot M86.171 ; Type 1 diabetes mellitus with diabetic polyneuropathy E10.42 and Atherosclerosis of artery of both lower extremities I70.203 [facility] [address] [address] 01/20/2025 Mary Perica [facility] [address] [address] 01/20/2025 Mary Perica [facility] [address] [address] 02/11/2024 Mary Perica [facility] [address] [address] 03/07/2024 Mary Perica [facility] [address] [address] 12/05/2024 Mary Perica [facility] [address] [address] 12/06/2024 Mary Perica [facility] [address] [address] 01/04/2025 Mary Perica [facility] [address] [address] 01/04/2025 Mary Perica [facility] [address] [address] 01/20/2025 Mary Rea Assessments Encounter Date Diagnosis (ICD [...] toe of right foot (ICD-10 - L03.031) 01/04/2025 Cellulitis of toe of right foot (ICD-10 - L03.031) 01/04/2025 Neuropathic ulcer of right foot with fat layer exposed (ICD-10 - L97.512) Patient Educated with: WOUND CARE INSTRUCTIONS. pdf (WOUND CARE INSTRUCTIONS. pdf) 01/20/2025 Neuropathic ulcer of right foot with fat layer exposed (ICD-10 - L97.512) Response to treatment Worse Patient Educated with: WOUND CARE INSTRUCTIONS. pdf (WOUND CARE INSTRUCTIONS. pdf) 01/20/2025 Acute osteomyelitis of right foot (ICD-10 - M86.171) Possible 01/20/2025 Type 1 diabetes mellitus with diabetic polyneuropathy (ICD-10 - E10.42) 12/13/2024 Neuropathic ulcer of right foot with fat layer exposed (ICD-10 - L97.512) 12/06/2024 Cellulitis of toe of right foot (ICD-10 - L03.031) 01/04/2025 Type 1 diabetes mellitus with diabetic polyneuropathy (ICD-10 - E10.42) 10/12/2024 Tinea unguium (ICD-10 - B35.1) 08/26/2024 [...] to breakdown of skin (ICD-10 - L97.521) 01/20/2025 Atherosclerosis of artery of both lower extremities (ICD-10 - I70.203) 01/04/2025 Atherosclerosis of artery of both lower extremities (ICD-10 - I70.203) 12/06/2024 Other hammer toe(s) (acquired), right foot (ICD-10 - M20.41) 01/04/2025 Tinea unguium (ICD-10 - B35.1) 12/06/2024 Abscess of right foot (ICD-10 - L02.611) Patient Educated with: WOUND CARE INSTRUCTIONS. pdf (WOUND CARE INSTRUCTIONS. pdf) 01/04/2025 Hammertoe of right foot (ICD-10 - M20.41) 01/04/2025 Contusion of right lesser toe(s) without damage to nail, initial encounter (ICD-10 - S90.121A) 01/04/2025 Tinea pedis of both feet (ICD-10 - B35.3) 02/11/2024 Other 05/04/2024 Other 12/06/2024 Other Plan Of Treatment Pending Test Test Name Order Date MRI : Foot, right 01/20/2025 *CBC With Differential/Platelet 01/21/20 25 C-Reactive Protein, Quant 01/20/2025 Basic Metabolic Panel (8) 01/20/2025 ESR 01/20/2025 X ray : Foot, left 3V 12/11/2022 X ray : Foot, left 3V 02/11/2024 X ray : Foot, left 3V 2020 X ray : Foot, left 3V 08/16/2021 X ray : Foot, right 3V 01/20/2025 [id number]-[id number] NAIL, 6 OR MORE 09/16/2021 60899-MAPBRAH SKIN/TISSUE 10/25/2021 80181-HNWECGN SKIN/TISSUE 12/04/2022 78456-ZRFBLKS SKIN/TISSUE 12/11/2022 [id number]-VABLMSL SKIN/TISSUE 09/16/2021 30710-BANULPE SKIN/TISSUE 2020 13672-VHLYTUO SKIN/TISSUE 02/11/2024 06793-HRNU SKIN LESIONS, OVER 4 09/17/19 22 07504-CSUW SKIN LESIONS, OVER 4 11/28/19 23 74528-VLGBHEHB OF HEMATOMA/FLUID 023 Next Appt Details Provider Name:Mary Geoffrey vaughan, 02/24/2025 10:30:00 AM, [address] [place], [address], Insurance Providers Payer Name Payer Address Payer Phone Subscriber Number Group Number Insured Name Patient Relationship to Insured Coverage Start Date Coverage End Date [facility] [employer] Claims [address] [place] [id number] Raheem Castro Self - patient is the insured Medical (General) History Medical History History ICD Code Kidney disease type II diabetes Surgical History Surgery Date(Month/Year) kidney transplant 10/2016 L leg surgery 09/09/21 amputation, toe 01/2023 amputation , toe 04/2023 Toe amputation 10/14/23 hammertoe, right foot 02/2024 Hospitalization History Reason Date(Month/Year) [facility]- fever- Infection in bone of toe [facility]- Cut of piece of toe 04/2023 [facility] - Cut of piece of toe 01/2023
--- OUTSIDE RECORDS SUMMARY | 2025-02-08 10:54 | XMS_ITS | Clinical Summary ---
Author Organization [facility] Address [address] [facility] [address] [place] [address] Phone Care Team Providers Care Director Of Recruitment Name Role Phone Geovanni Pink MD Primary Care Provider [phone]- [phone] Allergies No known active allergies Medications amLODIPine [...] 3 Active Eliquis 5 MG tabletIndication s:Other long term care phlebotomist current drug therapy Take 1 tablet (5 [...] ankle and/or foot 11/20/2021 12/11/2021 Atherosclerosis of [place] ar teries of the extremities 11/20/2021 12/11/2021 [...] PM EDT Performed at: 01 - [facility] [address] [id number] Tire Room Supervisor: Debora Brian MD, Phone: [phone] Skyler Banda MD LAB BLOOD ORDERABLES Final Resu lt [facility] from Last 3 Months or Most Recently Relevant to Health Maintenance Insurance [facility] ([id number]) [place] [address] Care Teams Director Of Recruitment Relationship Specialty Start Date End Date Geovanni Pink MD [address] [place] [id number] PCP - General Family Medicine 04/23/23
--- OUTSIDE RECORDS SUMMARY | 2025-02-08 10:54 | XMS_ITS | Clinical Summary ---
Author Organization [facility] Address [address] [place] [address] Care Team Providers Care Recovery Advocate Name Role Phone Lianne Manuel MD Primary [...] MGD MEDICARE OUT OF NETWORK JAYLEN FARIA [id number] * Guarantor: [employer] DE[employer] Account Type Relation to Patient Date of Phone Billing Address Client/Submitter Employer Care Teams Recovery Advocate Relationship Specialty Start Date End Date Lianne Manuel MD [address] [place] [address] PCP - General Internal Medicine 07/10/22
== END 2025-02-08 11:09 | disposition home or self-care (01) ==
LOC: HO.HMCFM 10:06
PROVIDERS: PCP Family Medicine; Visit Provider Family Medicine
DX: Z00.00 Encounter for general adult medical examination without abnormal findings (principal); E11.22 Type 2 diabetes mellitus with diabetic chronic kidney disease; L97.519 Non-pressure chronic ulcer of other part of right foot with unspecified severity; N18.30 Chronic kidney disease, stage 3 unspecified; Z79.4 Long term (current) use of insulin; N18.6 End stage renal disease; I15.0 Renovascular hypertension; Z12.11 Encounter for screening for malignant neoplasm of colon; Z12.5 Encounter for screening for malignant neoplasm of prostate; Z99.2 Dependence on renal dialysis; Z11.1 Encounter for screening for respiratory tuberculosis

== ENCOUNTER → 2025-02-08 10:05 | Outpatient (BNVA) | payer OTHER, SELFPAY | PROVIDERS: PCP Family Medicine; Visit Provider Family Medicine | DX: Z00.00 Encounter for general adult medical examination without abnormal findings (principal); I15.0 Renovascular hypertension; E11.621 Type 2 diabetes mellitus with foot ulcer; E11.22 Type 2 diabetes mellitus with diabetic chronic kidney disease; L97.519 Non-pressure chronic ulcer of other part of right foot with unspecified severity; N18.6 End stage renal disease; Z99.2 Dependence on renal dialysis; Z79.4 Long term (current) use of insulin | CPT/HCPCS: 99396 ==

== ENCOUNTER 2025-02-10 16:10 | Inpatient (IN) | payer OTHER, SELFPAY ==
--- OUTSIDE RECORDS SUMMARY | 2024-12-30 05:00 | XMS_ITS ---
Author Organization [facility] Address [address] [place] [address] Care Team Providers Care Site Foreman Name Role Phone Geovanni Pink MD Primary Care Provider Mary Canela [phone] Encounters Encounter Location Date Provider Diagnosis [address] [address] 12/30/2024 Mary Rea Plan Of Treatment Next Appt Details Provider Name:Mary vaughan, 02/24/2025 10:30:00 AM, [address] [place] [address], [address], Progress Notes * Raheem CASTRODOB:1970 ( 54 yo M)Acc No.[id number]:12/30/2024 Progress Note Patient: Raheem HUITRON Provider: Aquilino Rea DPM :1970 A ge:54 Y S ex:Male Date:12/30/2024 Address:[address] [place] [address], [facility] [place] Pcp:Geovanni Pink MD Subjective: * Chief Complaints: [...] 0 12/30/2024 Generated for Deedee huerta/Mike/Ric on: 0 02/10/2025 04:47 PM EDT
[2025-02-10 16:15] VITALS: BP 171/81; PULSE 78; RESP 18; TEMP 36.7; O2SAT 97; BMI 31.6
--- NOTE | 2025-02-10 16:24 | ED_ITS ---
HPI - General Adult General Chief complaint: Extremity Problem Stated complaint: ?Infected toe Time Seen by Provider: 02/10/25 16:33 Source: patient Mode of arrival: ambulatory Limitations: no limitations History of Present Illness ED Provider: CHALINO HUERTA PA-C HPI narrative: 54 year old male with pmhx significant for HTN, PAD, T2DM, osteomyelitis, anemia, s/p renal transplant in 2020 presents to the ED today for evaluation of chronic right foot wound. Patient reports wound to the bottom of his foot sine November of this year (3 months ago). He follows with his fuse maker for this. He was placed on doxycycline prophylactically which he has been taking as prescribed over the last two weeks. He states he had an outpatient xray done which resulted as normal . An outpatient MRI was then ordered. He received the results today and was informed he had osteomyelitis, prompting him to come to the ED for treatment. He denies any pain in the region of the wound. Denies any drainage. Denies fever/ chills. Related Data Home Medications ?Medication ?Instructions ?Recorded ?Confirmed lancets 28 gauge (FreeStyle #100 ea 06/26/21 12/30/24 Lancets) doxycycline monohydrate 100 mg 100 mg PO BID 02/08/25 capsule Previous Rx's ?Medication ?Instructions ?Recorded diabetic supplies, miscellan. #1 ea 09/25/23 calcifediol 30 mcg capsule,24 30 mcg PO BEDTIME 90 day s #90 caps 02/01/24 hr,extended release (Rayaldee) mycophenolate sodium 180 mg 540 mg (3 x 180 mg) PO BID 90 days 02/01/24 tablet,delayed release #540 tabs apixaban 5 mg tablet 5 mg PO BID 90 days #180 tab s 04/13/24 everolimus (immunosuppressive) 1 2 mg (2 x 1 mg) PO BI D 90 days 04/26/24 mg tablet #360 tabs alcohol swabs (Alcohol Prep Pads) 1 pad topical .4 lisa es a day 90 06/24/24 days #400 ea dapagliflozin propanediol 10 mg 10 mg PO QAM 90 days # 90 tabs 06/24/24 tablet pen needle, diabetic 31 gauge x #360 ea 09/16/2408/28 amlodipine 10 mg tablet 10 mg PO DAILY 90 days #90 t abs 09/27/24 dimethicone 3 %-petrolatum 30 1 appl topical BID 30 da ys #96 09/27/24 %-vits A,C,and E-aloe vera topical grams cream (Gold Carey Ultimate Diabetics' Foot) insulin aspart U-100 100 unit/mL 5 unit (0.05 mL) subc ut TIDAC 30 12/05/24 (3 mL) subcutaneous pen (Novolog days #6 mL FlexPen U-100 Insulin aspart) insulin glargine 100 unit/mL (3 22 unit (0.22 mL) subc ut BEDTIME 12/30/24 mL) subcutaneous pen (Lantus 30 days #9 mL Solostar U-100 Insulin) rosuvastatin 10 mg tablet 10 mg PO BEDTIME #90 tabs Allergies Allergy/AdvReac Type Severity Reaction Status Date / Time No Known Allergies Allergy Verified 02/10/25 16:20 Review of Systems 2 Review of Systems: Yes all other systems are reviewed and are negative PMFSH Past Medical History Attestation statement: The following information was validated with the patient. Source: old records reviewed and nursing notes reviewed Medical History HTN (hypertension) PAD (peripheral artery disease) CKD (chronic kidney disease) stage 3, GFR 30-59 ml/min MSSA bacteremia Osteomyelitis of third toe of left foot S/P angiogram of extremity (10/08/22) Diabetic ulcer of right foot Osteomyelitis Wound of right foot Chronic right shoulder pain Multinodular goiter Testicular cancer Bleeding internal hemorrhoids Seminoma Paresthesia and pain of extremity Type 2 diabetes mellitus with hyperglycemia, with long-term current use of insulin Type 2 diabetes mellitus with chronic kidney disease Hyperlipidemia Vaccination refused by patient Refused pneumococcal vaccination Anemia in stage 4 chronic kidney disease Acute proliferative glomerulonephritis Secondary hyperparathyroidism of renal origin Mixed dyslipidemia Peripheral vascular disease Carpal tunnel syndrome on left Diabetes mellitus with diabetic nephropathy, with long-term current use of insulin Osteomyelitis of left foot Diabetes mellitus with foot ulcer End-stage renal disease on hemodialysis Surgical History Renal transplant recipient History of amputation (01/19/23) Amputated toe of right foot (10/13/22) History of kidney transplant Kidney transplant recipient Family History Family History Father Unknown family medical history Mother Diabetes mellitus HTN (hypertension) CVD (cardiovascular disease) History of CVA (cerebrovascular accident) Stroke Sister Diabetes mellitus Daughter No problems noted. Sister No problems noted. Sister No problems noted. Social History Social History Household Members: Family Housing: House Do you presently have visiting nurse or other home services: No Alcohol intake: never Patient Tobacco Use Status: Never used Tobacco Smoked in Last 30 Days: No e-Cigarette/Vaping Use: Never Used Use of substances other than those prescribed or required for medical reasons: No Advance Directives: Yes Advance Directives on File: Yes Advance Directives Date on File: 01/16/23 service: No Current occupational status: disabled Current occupation: disability - kidney transplant. Left side dominant Cognitive needs: No Hearing needs: No Vision needs: No Physical Exam ED Vital Signs: Vital Signs - 24 hr 02/10/25 16:15 Temperature 98.0 F Pulse Rate 78 Respiratory Rate 18 Blood Pressure 171/81 H Pulse Oximetry 97 Oxygen Delivery Method Room Air BMI result Body Mass Index 31.6 Hypertensive, vitals otherwise WNL General: Well appearing, in no acute distress. Skin: Warm, dry, intact. No rashes or lesions. Head: Normocephalic, atraumatic. EENT: Hearing is intact b/l. Conjunctiva clear. PERRLA. EOM intact. Moist mucous membranes.? Cardiac: Chest wall symmetric. RRR Lungs: Normal respiratory effort without accessory muscle use. CTA bilaterally Ext: + s/p amputation right 1st and 4th toe. open ulcerated area noted to plantar aspect of right foot at great toe stump. no active discharge. no necrosis. no tracking. no ttp. Neuro: AOx3. Normal speech.Ambulating with steady gait. Psych: Appropriate mood and affect. Responds appropriately to questions. Course Course Course Narrative: RME, this is a rapid medical exam performed by Lonny Santillan please refer to primary provider for complete H&P- 54-year-old male presents for evaluation of an infection to the right foot. He has a partial amputation of the right great toe. There is also a small ulcer to the bottom of the toe. He has an outpatient MRI from this morning that shows ?acute osteomyelitis with involvement of the interphalangeal joint, small abscesses and cellulitis. ? Reevaluation(s) Reevaluation #1: CBC without leukocytosis or left shift. No anemia, H&H stable. Chemistry without acute electrolyte abnormality requiring intervention. Renal function appears to be at baseline with BUN of 19 and creatinine of 1.78. Liver function at baseline. CRP elevated at 0.82. lactic wnl at 0.9. > patient presents with outpatient MRI report, attached below -- showing diffuse abnormal enhancement of proximal phalanx and distal phalanx remnant of the great toe most consistent with acute osteomyelitis with surrounding cellulitis and infectious soft tissue with multiple abscesses. > patient does not meets criteria for sepsis at this time. > patient will need to be admitted for management of osteomyelitis. I discussed with patient and he is agreeable. I have ordered IV cefepime and vanco for coverage. will reach out to hospialist. Medications Administered Generic Name Dose Route Start Last Admin Trade Name Freq PRN Reason Stop Dose Admin Cefepime HCl 2 gm in 50 mls @ 100 mls/hr 02/10/25 17:22 02/10/25 17:30 Maxipime IV 02/10/25 17:51 100 mls/hr ONCE ONE Administration Medical Decision Making Medical Decision Making [facility] Narrative: 54 year old male with pmhx significant for HTN, PAD, T2DM, osteomyelitis, anemia, s/p renal transplant in 2020 presents to the ED today for evaluation of chronic right foot wound. he is hypertensive, vitals are otherwise wnl. he is well appearing and in NAD. on exam of RLE, he is s/p amputation right 1st and 4th toe. open ulcerated area noted to plantar aspect of right foot at great toe stump. no active discharge. no necrosis. no tracking. no ttp. Differential diagnosis includes chronic diabetic foot ulcer, foot wound, cellulitis, abscess, osteomyelitis, fracture Plan for labs, lactic, blood cultures. MR results reviewed and attached to document. IV abx ordered. Denying any pain at present. Differential Diagnosis Differential Diagnoses: The differential diagnosis associated with the presentation includes as above. Admission/Observation Consideration of admission/observation: Escalation of care including admission/observation considered Patient will be admitted to the medical floor for management of acute osteomyelitis. Lab Data [facility] Lab Attestation statement: I reviewed the patient's lab results. as above. 02/10/25 16:40 02/10/25 16:40 Labs: Lab Results 02/10/25 Range/Units 16:40 WBC 8.9 (4.8-10.8) X10*3/uL RBC 5.88 H (4.60-5.80) X10*6/uL Hgb 16.4 (14.0-18.0) g/dl Hct 50.0 (42.0-52.0) % MCV 85.0 (80.0-98.0) fL MCH 27.9 (27.0-33.0) pg MCHC 32.8 (31.0-36.0) g/dl RDW 14.9 (11.0-16.0) % Plt Count 198 (160-400) X10*3/uL MPV 11.5 (9.4-12.4) fL Immature Gran % (Auto) 0.9 H (0.0-0.4) % Neut % (Auto) 63.4 (45-73) % Lymph % (Auto) 25.4 (20-40) % [place] % (Auto) 8.3 (2-11) % Eos % (Auto) 1.7 (0-4) % Baso % (Auto) 0.3 (0-2) % Lymph # (Auto) 2.3 (1.2-4.9) X10*3/uL [place] # (Auto) 0.7 (0.1-1.2) X10*3/uL Eos # (Auto) 0.2 (0.0-0.4) X10*3/uL Baso # (Auto) 0.0 (0.0-0.2) X10*3/uL Abs Immat Gran (auto) 0.08 H (0.00-0.03) X10*3/uL Absolute Neuts (auto) 5.6 (2.0-8.3) x10*3/uL Absolute Nucleated RBC 0.000 (0.0-0.012) X10*3/uL Nucleated RBC % (auto) 0.0 (0.0-0.2) /100WBC ESR 18 H (0-15) MM/HR Sodium 142 (135-145) mmol/L Potassium 3.7 (3.3-5.1) mmol/L Chloride 107 (96-108) mmol/L Carbon Dioxide 24 (22-29) mmol/L Anion Gap 15 (12-20) BUN 19 H (9-16) mg/dL Creatinine 1.78 H (0.5-1.4) mg/dL Estim Creat Clear Calc 55.1 Estimated GFR 40 Random Glucose 113 (60-115) mg/dL Lactic Acid 0.9 (0.5-2.0) mmol/L Calcium 9.2 (8.4-10.2) mg/dL Total Bilirubin 0.3 (0.0-1.0) mg/dL AST 21 (5-37) U/L ALT 17 (0-40) U/L Alkaline Phosphatase 139 H (39-117) U/L C-Reactive Protein 0.82 H (< or = 0.50) mg/dL Total Protein 8.2 H (6.5-8.0) g/dL Albumin 4.7 (3.5-5.0) g/dL Independent Interpretation I performed an independent interpretation of an: MRI Radiology Impression Discussion of test interpretation with radiology: I have reviewed the radiologist's reading. Radiologist Impression: Independent Historian Clinical information obtained from an independent historian. History obtained from or confirmed by: Spouse External Record Review External record reviewed: Inpatient record Prescription Management I considered prescription management with: Antibiotic Chronic Conditions Patient?s care impacted by: Diabetes Social Determinants Patient?s care significantly limited by Social Determinants of Health including: Other Social Determinant of Health Critical Care Time Critical Care Time Critical Care Time: No Discharge Plan Discharge Clinical Impression: Osteomyelitis of right foot Patient Disposition: Admitted As Inpatient
--- OUTSIDE RECORDS SUMMARY | 2025-02-10 16:47 | XMS_ITS | Patient Health Record ---
[facility] Address [address] [facility] [place] [address] Care Team Providers Care Ict Sales Assistant Name Role Phone Joesph CHEUNG, Geovanni Primary Care Provider Mary Canela Unavailable [phone] Rajesh Oreilly Unavailable [phone] Allergies No Known Allergies Results Component Value [...] Polyneuropathy due to diabetes mellitus type I (001962795) Type 1 diabetes mellitus with diabetic polyneuropathy (E10.42) Active confirmed Problem Bilateral atherosclerosis of arteries of lower limbs (3633601239094902 7) Atherosclerosis of artery of both lower extremities (I70.203) Active confirmed Problem Acute osteomyelitis of right foot (2383436424401053 ) Acute osteomyelitis of right foot (M86.171) Active confirmed Possible Vital Signs Blood pressure diastolic 60 mm Hg 01/20/2025 Height 5ft9in in 01/20/2025 Blood pressure systolic 128 mm Hg 01/20/2025 Weight 212 lbs 01/20/2025 BMI 31.3 kg/m2 01/20/2025 Procedures Procedure Date Ordered Date Performed Result Body Sit e 04630-LVMFOJG SKIN/TISSUE 02/11/2024 N/A Encounters Encounter Location Date [facility] [address] 02/11/2024 Rajesh Afia Skin ulcer of toe of left foot with fat layer exposed L97.522 and Type 1 diabetes mellitus with diabetic polyneuropathy E10.42 [facility] [address] [address] 04/14/2024 Mary Rea Type 2 diabetes mellitus with diabetic polyneuropathy E11.42 ; Contracture of toe of left foot M20.5X2 ; Tinea unguium B35.1 and Abscess of toe, left L02.612 [facility] [place] [address] [place] [address] 05/04/2024 Mary Rea Type 2 diabetes mellitus with diabetic polyneuropathy E11.42 ; Contracture of toe of left foot M20.5X2 ; Tinea unguium B35.1 and Neuropathic ulcer of left foot, limited to breakdown of skin L97.[address] [address] 07/15/2024 Mary Rea Type 2 diabetes mellitus with diabetic polyneuropathy E11.42 ; Contracture of toe of left foot M20.5X2 and Tinea unguium B35.[address] [address] 08/26/2024 Mary Grossmana Neurotrophic ulcer o f left foot limited to breakdown of skin L97.521 ; Xerosis of skin L85.3 and Type 2 diabetes mellitus with diabetic polyneuropathy E11.[address] [address] 10/12/2024 Mary Rea Type 1 diabetes mellitus with diabetic polyneuropathy E10.42 ; Atherosclerosis of artery of both lower extremities I70.203 ; Tinea unguium B35.1 and Neurotrophic ulcer of left foot limited to breakdown of skin L97.[address] [address] 12/06/2024 Mary Rea Neuropathic ulcer of left foot with fat layer exposed L97.522 ; Cellulitis of toe of right foot L03.031 ; Type 2 diabetes mellitus with diabetic polyneuropathy E11.42 ; Abscess of right foot L02.611 and Other hammer toe(s) (acquired), right foot M20.[address] [address] 12/13/2024 Mary Rea Type 2 diabetes mellitus with diabetic polyneuropathy E11.42 ; Cellulitis of toe of right foot L03.031 and Neuropathic ulcer of right foot with fat layer exposed L97.[address] [address] 01/04/2025 Mary Rea Cellulitis of toe of right foot L03.031 [...] and Tinea pedis of both feet B35.3 [facility] [address] [address] 01/20/2025 Mary Perica Neuropathic ulcer of right foot with fat layer exposed L97.512 ; Acute osteomyelitis of right foot M86.171 ; Type 1 diabetes mellitus with diabetic polyneuropathy E10.42 and Atherosclerosis of artery of both lower extremities I70.203 [facility] [address] [address] 01/20/2025 Mary Perica [facility] [address] [address] 01/20/2025 Mary Perica [facility] [address] [address] 02/11/2024 Mary Perica [facility] [address] [address] 03/07/2024 Mary Perica [facility] [address] [address] 12/05/2024 Mary Perica [facility] [address] [address] 12/06/2024 Mary Perica [facility] [address] [address] 01/04/2025 Mary Perica [facility] [address] [address] 01/04/2025 Mary Perica [facility] [address] [address] 01/20/2025 Mary Rea Assessments Encounter Date Diagnosis [...] X ray : Foot, right 3V 01/20/2025 13495-XWFAVZZ NAIL, 6 OR MORE 09/16/2021 52599-PONTTRY SKIN/TISSUE 10/25/2021 35438-LNRUUUK SKIN/TISSUE 12/04/2022 35075-ORNVXIN SKIN/TISSUE 12/11/2022 70464-VUUNGHJ SKIN/TISSUE 09/16/2021 93266-QVUSNZQ SKIN/TISSUE 2020 47423-CHHTIOU SKIN/TISSUE 02/11/2024 47060-FGGF SKIN LESIONS, OVER 4 09/17/19 22 28757-VWFI SKIN LESIONS, OVER 4 11/28/19 23 63247-CMVYGCNO OF HEMATOMA/FLUID 023 Next Appt Details Provider Name:Mary vaughan, 02/24/2025 10:30:00 AM, [address] [facility], [place], [address], Insurance Providers Payer Name Payer Address Payer Phone Subscriber Number Group Number Insured Name Patient Relationship to Insured Coverage Start Date Coverage End Date [facility] [employer] Claims [address] [place] [id number] [phone] [id number] Raheem Castro Self - patient is the insured Medical (General) History Medical History History ICD Code Kidney disease type II diabetes Surgical History Surgery Date(Month/Year) kidney transplant 10/2016 L leg surgery 09/09/21 amputation, toe 01/2023 amputation , toe 04/2023 Toe amputation 10/14/23 hammertoe, right foot 02/2024 Hospitalization History Reason Date(Month/Year) [facility] [place]- Infection in bone of toe [facility]- Cut of piece of toe 04/2023 [facility] [place] toe 01/2023
--- OUTSIDE RECORDS SUMMARY | 2025-02-10 16:47 | XMS_ITS | Clinical Summary ---
Author Organization Patient Business Ser [facility] Address [address] [place] [address] Care Team Providers Care Ferryboat Deckhand Name Role Phone Lianne Manuel MD Primary [...] age to complete this topic Care Teams Ferryboat Deckhand Relationship Specialty Start Date End Date Lianne Manuel MD [address] [place] [address] PCP - General Internal Medicine 01/30/22
--- OUTSIDE RECORDS SUMMARY | 2025-02-10 16:47 | XMS_ITS | Clinical Summary ---
Author Organization [facility] Address [address] [facility] [address] [place] [address] Phone Care Team Providers Care Tank Crewmember Name Role Phone Geovanni Pink MD Primary Care Provider [phone] Allergies No known active allergies Medications amLODIPine [...] 3 Active Eliquis 5 MG tabletIndication s:Other terminal gauger current drug therapy Take 1 tablet (5 [...] ankle and/or foot 11/20/2021 12/11/2021 Atherosclerosis of [place] ar teries of the extremities 11/20/2021 12/11/2021 [...] EDT Performed at: 01 - [facility] [address] [id number] Air Pumper: Debora Brian MD, Phone: [phone] Skyler Banda MD LAB BLOOD ORDERABLES Final Resu lt [facility] from Last 3 Months or Most Recently Relevant to Health Maintenance Insurance [facility] ([id number]) [place] [address] Care Teams Tank Crewmember Relationship Specialty Start Date End Date Geovanni Pink MD [address] [place] [id number] PCP - General Family Medicine 04/23/23
[2025-02-10 16:48] LABS: MANUAL DIFF FLAG NO
--- OUTSIDE RECORDS SUMMARY | 2025-02-10 16:48 | XMS_ITS | Clinical Summary ---
Author Organization [facility] Address [address] [place] [address] Care Team Providers Care Lead Mechanic Name Role Phone Lianne Manuel MD Primary [...] MGD MEDICARE OUT OF NETWORK JAYLEN FARIA [id number] * Guarantor: [employer] DE[employer] Account Type Relation to Patient Date of Phone Billing Address Client/Submitter Employer Care Teams Lead Mechanic Relationship Specialty Start Date End Date Lianne Manuel MD [address] [place] [address] PCP - General Internal Medicine 07/10/22
--- OUTSIDE RECORDS SUMMARY | 2025-02-10 16:48 | XMS_ITS | Clinical Summary ---
Author Organization [facility] Address [address] [facility] [address] [place] [address] Phone Care Team Providers Care Guide Dog Trainer Name Role Phone Geovanni Pink MD Primary [...] topic Medical Devices Not on file Insurance [facility] ONE CARE MEDICARE REPLACEMENT [facility] MEDICARE REPLACEMENT [facility] MEDICARE REPLACEMENT [facility] MEDICARE REPLACEMENT [facility] ONE CARE MEDICARE REPLACEMENT [facility] CARE MEDICARE REPLACEMENT Care Teams Guide Dog Trainer Relationship Specialty Start Date End Date Geovanni Pink MD [address] [place] [address] PCP - General Family Medicine 11/02/23 Additional Source Comments The information contained in this document represents components of the legal health record. It is not the complete legal health record.[facility]
[2025-02-10 16:49] LABS: Hematocrit 50.0 % (42.0-52.0); Hemoglobin 16.4 g/dl (14.0-18.0); Imm Gran Abs Auto 0.08 X10*3/uL (0.00-0.03); Imm Gran Pct Auto 0.9 % (0.0-0.4); Lymphocytes Absolute Auto 2.3 X10*3/uL (1.2-4.9); Mean Corpuscular HGB Conc 32.8 g/dl (31.0-36.0); Mean Corpuscular Hemoglobin 27.9 pg (27.0-33.0); Mean Corpuscular Volume 85.0 fL (80.0-98.0); NRBC Abs Auto 0.000 X10*3/uL (0.0-0.012); NRBC Pct Auto 0.0 /100WBC (0.0-0.2); Platelet Count 198 X10*3/uL (160-400); Red Blood Count 5.88 X10*6/uL (4.60-5.80); White Blood Count 8.9 X10*3/uL (4.8-10.8)
[2025-02-10 17:06] LABS: Alanine Aminotransferase 17 U/L (0-40); Albumin Level 4.7 g/dL (3.5-5.0); Alkaline Phosphatase 139 U/L (39-117); Anion Gap 15 (12-20); Aspartate Amino Transferase 21 U/L (5-37); Blood Urea Nitrogen 19 mg/dL (9-16); Calcium 9.2 mg/dL (8.4-10.2); Carbon Dioxide 24 mmol/L (22-29); Chloride 107 mmol/L (96-108); Creatinine Clr Calc Pharmacy 55.1; Estimated Glomerular Filt Rate 40; Potassium 3.7 mmol/L (3.3-5.1); Sodium 142 mmol/L (135-145); Total Protein 8.2 g/dL (6.5-8.0)
[2025-02-10] MEDS: cefEPime HCl/D5W 2 GM/50 ML PIGGYBACK IV (17:30)
--- NOTE | 2025-02-10 17:35 | PM.IMHP ---
History of Present Illness Date of Service: 02/10/25 Chief Complaint: Abnormal MRI This is a 54-year-old male with pertinent history of peripheral arterial disease status post right 1st and 4th toe amputations, chronic kidney disease status post renal transplant on immunosuppressive therapy, insulin-dependent type 1 diabetes mellitus, history of testicular cancer stage III, hypertension, paroxysmal atrial fibrillation on anticoagulation who was sent to the emergency department for abnormal MRI. Patient states he has had a wound to his right foot that 1st appeared 3 months ago. Patient follows up with Podiatry outpatient for it. Patient had an x-ray done outpatient few weeks ago which was apparently normal. He has prophylactically completed a course of doxycycline. Outpatient MRI was ordered by Podiatry and patient was asked to come to the ER for further management. States he does have occasional drainage when he walks on his right foot and bears weight on it. No fever, chills, chest pain, palpitations, shortness of breath, abdominal pain, changes in urinary or bowel habits. In the emergency department, patient was given IV vancomycin and IV cefepime. Outpatient MRI with acute osteomyelitis of the proximal phalanx and distal phalanx remnant of the great toe. Surrounding cellulitis and great toe abscess seen Review of Systems Constitutional: Constitutional: Reports no additional constitutional complaints Cardiovascular: Cardiovascular: Reports no additional cardiovascular complaints Respiratory: Respiratory: Reports no additional respiratory complaints Gastrointestinal: Gastrointestinal: Reports no additional gastrointestinal complaints Genitourinary: Genitourinary: Reports no additional male genitourinary complaints [facility] Medical History HTN (hypertension) PAD (peripheral artery disease) CKD (chronic kidney disease) stage 3, GFR 30-59 ml/min MSSA bacteremia Osteomyelitis of third toe of left foot S/P angiogram of extremity (10/08/22) Diabetic ulcer of right foot Osteomyelitis Wound of right foot Chronic right shoulder pain Multinodular goiter Testicular cancer Bleeding internal hemorrhoids Seminoma Paresthesia and pain of extremity Type 2 diabetes mellitus with hyperglycemia, with long-term current use of insulin Type 2 diabetes mellitus with chronic kidney disease Hyperlipidemia Vaccination refused by patient Refused pneumococcal vaccination Anemia in stage 4 chronic kidney disease Acute proliferative glomerulonephritis Secondary hyperparathyroidism of renal origin Mixed dyslipidemia Peripheral vascular disease Carpal tunnel syndrome on left Diabetes mellitus with diabetic nephropathy, with long-term current use of insulin Osteomyelitis of left foot Diabetes mellitus with foot ulcer End-stage renal disease on hemodialysis Family History Father Unknown family medical history Mother Diabetes mellitus HTN (hypertension) CVD (cardiovascular disease) History of CVA (cerebrovascular accident) Stroke Sister Diabetes mellitus Daughter No problems noted. Sister No problems noted. Sister No problems noted. Surgical History Renal transplant recipient History of amputation (01/19/23) Amputated toe of right foot (10/13/22) History of kidney transplant Kidney transplant recipient Social History Household Members: Family Housing: House Do you presently have visiting nurse or other home services: No Alcohol intake: never Patient Tobacco Use Status: Never used Tobacco Smoked in Last 30 Days: No e-Cigarette/Vaping Use: Never Used Use of substances other than those prescribed or required for medical reasons: No Advance Directives: Yes Advance Directives on File: Yes Advance Directives Date on File: 01/16/23 service: No Current occupational status: disabled Current occupation: disability - kidney transplant. Left side dominant Cognitive needs: No Hearing needs: No Vision needs: No Meds Allergies Allergy/AdvReac Type Severity Reaction Status Date / Time No Known Allergies Allergy Verified 02/10/25 16:20 Active Medications: Current Medications Cefepime HCl (Maxipime) 2 gm in 50 mls @ 100 mls/hr IV ONCE ONE Stop: 02/10/25 17:51 Last Admin: 02/10/25 17:30 Dose: 100 mls/hr Vancomycin HCl (Vancomycin/Ns) 2,000 mg in 500 mls @ 250 mls/hr IV ONCE ONE Stop: 02/10/25 19:21 Home Medications ?Medication ?Instructions ?Recorded ?Confirmed ?Last Taken ?Type lancets 28 gauge (FreeStyle #100 ea 06/26/21 12/30/24 Unknown History Lancets) doxycycline monohydrate 100 mg 100 mg PO BID 02/08/25 Unknown History capsule Physical Exam Vital Signs and Narrative: Vital Signs: Last Vital Signs Temp 98.0 F 02/10/25 16:15 Pulse 78 02/10/25 16:15 Resp 18 02/10/25 16:15 BP 171/81 H 02/10/25 16:15 Pulse Ox 97 02/10/25 16:15 O2 Del Method Room Air 02/10/25 16:15 BMI result Body Mass Index 31.6 Const: Other: Middle-aged male lying in bed in no distress Neck supple, no JVD Regular rate and rhythm, S1-S2 heard Regular breath sounds bilaterally, no wheezing or crackles appreciated Abdomen soft nontender, no guarding, no rigidity Patient is awake, alert and oriented to self, place, time and person ; no focal motor deficit Psych: Normal mood Right 1st toe ventral nonhealing ulcer with surrounding erythema and warmth ; partial amputation seen Results Labs 02/10/25 16:40 02/10/25 16:40 Labs: Laboratory Results - last 24 hr 02/10/25 16:40 MCV 85.0 MCH 27.9 MCHC 32.8 RDW 14.9 Plt Count 198 MPV 11.5 Immature Gran % (Auto) 0.9 H Neut % (Auto) 63.4 Lymph % (Auto) 25.4 [place] % (Auto) 8.3 Eos % (Auto) 1.7 Baso % (Auto) 0.3 Lymph # (Auto) 2.3 [place] # (Auto) 0.7 Eos # (Auto) 0.2 Baso # (Auto) 0.0 Abs Immat Gran (auto) 0.08 H Absolute Neuts (auto) 5.6 Absolute Nucleated RBC 0.000 Nucleated RBC % (auto) 0.0 ESR 18 H Anion Gap 15 Estim Creat Clear Calc 55.1 Estimated GFR 40 Random Glucose 113 Lactic Acid 0.9 Calcium 9.2 Total Bilirubin 0.3 AST 21 ALT 17 Alkaline Phosphatase 139 H C-Reactive Protein 0.82 H Total Protein 8.2 H Albumin 4.7 Assessment and Plan (1) Acute osteomyelitis of right foot: Status: Acute Plan This is a 54-year-old male with pertinent history of peripheral arterial disease status post right 1st and 4th toe amputations, chronic kidney disease status post renal transplant on immunosuppressive therapy, insulin-dependent type 1 diabetes mellitus, history of testicular cancer stage III, hypertension, paroxysmal atrial fibrillation on anticoagulation who was sent to the emergency department for abnormal MRI. #. Acute right foot osteomyelitis. Outpatient MRI with diffuse enhancement of proximal phalanx and distal phalanx remnant of great toe consistent with acute osteomyelitis. Surrounding cellulitis and great toe abscess seen. Will admit patient and initiate empiric broad-spectrum IV antibiotics. Consulted Infectious Disease and General surgery, appreciate assistance. No sepsis #. CKD stage 3b status post left renal transplant. Continue mycophenolate and everolimus. Creatinine at baseline. #. Paroxysmal atrial fibrillation. On Eliquis. Rate controlled in the ER #. Mixed hyperlipidemia. On statin #. Secondary hyperparathyroidism due to kidney disease. Continue calcifediol #. Insulin-dependent diabetes mellitus type 1. Reduce home basal regimen once med rec is complete. Initiating Accu-Cheks sliding scale insulin #. Hypertension: Continue home antihypertensives Med rec pending DVT prophylaxis: Ramandeepquis Full code Admit as inpatient and will require two night minimum hospital stay for IV antibiotics (as above), which is not possible in a lesser acute setting. Quality Stroke Does the patient have a stroke diagnosis?: No VTE Prior VTE?: No VTE Risk Level:: Medical - moderate - high VTE Device Contraindication: Treatment Not Indicated VTE Drug Contraindication: N/A - Med Ordered
[2025-02-10] MEDS: vancomycin/NS 2,000 MG/500 ML PLAST..BAG 250 MG IV (17:54)
--- NOTE | 2025-02-10 18:18 | PC.NURSE ---
Phone report given to Siria in overflow, to be transported over when transport available.
--- NOTE | 2025-02-10 18:35 | PHA.MEDREC ---
Pharmacy Consult ? Medication Reconciliation Pharmacy has completed the medication reconciliation.
[2025-02-10 18:46] VITALS: BP 176/82; PULSE 65; RESP 16; O2SAT 99
[2025-02-10 20:46] LABS: Glucose, Whole Blood 258 mg/dL (60-115)
[2025-02-10 21:42] VITALS: BP 159/74; PULSE 69; RESP 17; TEMP 36.7; O2SAT 96
[2025-02-10] MEDS: 0.9 % Sodium Chloride Flush 3 ML SYRINGE IVFLUSH (22:41)
[2025-02-11 05:33] VITALS: BP 135/65; PULSE 66; RESP 17; TEMP 36.9; O2SAT 94
[2025-02-11 06:25] LABS: MANUAL DIFF FLAG NO
[2025-02-11 06:41] LABS: Anion Gap 12 (12-20); Blood Urea Nitrogen 18 mg/dL (9-16); Calcium 8.5 mg/dL (8.4-10.2); Carbon Dioxide 23 mmol/L (22-29); Chloride 113 mmol/L (96-108); Creatinine Clr Calc Pharmacy 53.9; Estimated Glomerular Filt Rate 39; Potassium 3.7 mmol/L (3.3-5.1); Sodium 144 mmol/L (135-145)
[2025-02-11 06:44] LABS: Hematocrit 47.3 % (42.0-52.0); Hemoglobin 15.4 g/dl (14.0-18.0); Imm Gran Abs Auto 0.09 X10*3/uL (0.00-0.03); Imm Gran Pct Auto 1.2 % (0.0-0.4); Lymphocytes Absolute Auto 1.9 X10*3/uL (1.2-4.9); Mean Corpuscular HGB Conc 32.6 g/dl (31.0-36.0); Mean Corpuscular Hemoglobin 27.7 pg (27.0-33.0); Mean Corpuscular Volume 85.2 fL (80.0-98.0); NRBC Abs Auto 0.000 X10*3/uL (0.0-0.012); NRBC Pct Auto 0.0 /100WBC (0.0-0.2); Platelet Count 172 X10*3/uL (160-400); Red Blood Count 5.55 X10*6/uL (4.60-5.80); White Blood Count 7.3 X10*3/uL (4.8-10.8)
--- NOTE | 2025-02-11 07:34 | PC.NURSE ---
Patient refused POC from aide. Patient able to check blood glucose level with implanted monitoring device and showed the aide a BG of 127.
[2025-02-11 09:48] LABS: Hemoglobin A1C 220.4499 umol/L; Total Hemoglobin (HGBA1C) 3994.2934 umol/L
[2025-02-11] MEDS: 0.9 % Sodium Chloride Flush 3 ML SYRINGE IVFLUSH ×3 (10:38→20:57)
--- NOTE | 2025-02-11 11:38 | PC.NURSE ---
Addendum entered by Alejandra Teague RN 02/11/25 11:39: Patient is a 54-year-old male with pertinent history of peripheral arterial disease status post right 1st and 4th toe amputations, chronic kidney disease status post renal transplant on immunosuppressive therapy, insulin-dependent type 1 diabetes mellitus, history of testicular cancer stage III, hypertension, paroxysmal atrial fibrillation on anticoagulation who was sent to the emergency department for abnormal MRI. Patient states he has had a wound to his right foot that 1st appeared 3 months ago. Patient follows up with Podiatry outpatient for it. He has prophylactically completed a course of doxycycline. Outpatient MRI was ordered by Podiatry and patient was asked to come to the ER for further management. States he does have occasional drainage when he walks on his right foot and bears weight on it. In the emergency department, patient was given IV vancomycin and IV cefepime. Outpatient MRI with acute osteomyelitis of the proximal phalanx and distal phalanx remnant of the great toe. Surrounding cellulitis and great toe abscess seen. Patient alert and oriented. Lungs clear bilat. Respirations even and non-labored. Abdomen soft, non-tender with positive bowel sounds. Positive pedal pulses with trace edema. Small eraser size wound noted on bottom of foot near great toe. Appears dry, no drainage noted. Original Note: Medical History HTN (hypertension) PAD (peripheral artery disease) CKD (chronic kidney disease) stage 3, GFR 30-59 ml/min MSSA bacteremia Osteomyelitis of third toe of left foot S/P angiogram of extremity (10/08/22) Diabetic ulcer of right foot Osteomyelitis Wound of right foot Chronic right shoulder pain Multinodular goiter Testicular cancer Bleeding internal hemorrhoids Seminoma Paresthesia and pain of extremity Type 2 diabetes mellitus with hyperglycemia, with long-term current use of insulin Type 2 diabetes mellitus with chronic kidney disease Hyperlipidemia Vaccination refused by patient Refused pneumococcal vaccination Anemia in stage 4 chronic kidney disease Acute proliferative glomerulonephritis Secondary hyperparathyroidism of renal origin Mixed dyslipidemia Peripheral vascular disease Carpal tunnel syndrome on left Diabetes mellitus with diabetic nephropathy, with long-term current use of insulin Osteomyelitis of left foot Diabetes mellitus with foot ulcer End-stage renal disease on hemodialysis
[2025-02-11 11:43] LABS: Glucose, Whole Blood 203 mg/dL (60-115)
--- NOTE | 2025-02-11 12:21 | P.PNIM_ITS ---
Subjective Subjective Date of Service: 02/11/25 Review of Systems Follow up osteomyelitis doing well, no pain ambulating in room Physical Exam 2 Exam: Exam: Appearing in no acute distress lung sounds are clear to auscultation heart regular rate rhythm, clear S1, S2 positive bowel sounds, abdomen is soft, nontender neuro patient is alert x3, no focal deficits Vital Signs: Vital Signs: Last Vital Signs Temp 98.5 F 02/11/25 05:33 Pulse 66 02/11/25 05:33 Resp 17 02/11/25 05:33 BP 135/65 02/11/25 05:33 Pulse Ox 94 02/11/25 05:33 O2 Del Method Room Air 02/11/25 05:33 BMI result Body Mass Index 31.6 Objective Data Active Medications Acetaminophen (Acetaminophen 325 Mg Tablet) 650 mg PO Q6H PRN PRN Reason: Pain, Mild 1-3,fever,headache Calcium Carbonate (Calcium Carbonate 750 Mg Tab.Chew) 750 mg PO Q4H PRN PRN Reason: Heartburn Dextrose (Dextrose 50 % 25 Gm/50 Ml Syringe) 25 gm IVPUSH Q15M PRN; Protocol PRN Reason: per Hypoglycemia Standing Ord. Glucose (Glucose Gel 15 Gm Gel..Gram.) 15 gm PO Q15M PRN; Protocol PRN Reason: per Hypoglycemia Standing Ord. Piperacillin Sod/Tazobactam (Sod 4.5 gm/ Sodium Chloride) 100 mls @ 200 mls/hr IV Q6H [facility] Last Infusion: 02/11/25 11:58 Dose: Infused Documented By: RENETTA Vancomycin HCl 1,500 mg/ (Sodium Chloride) 500 mls @ 333.333 mls/hr IV Q24H [facility] Insulin Human Lispro (Insulin Lispro 100 Unit/Ml 3 Ml Vial) 0 unit SUBCUT QIDACHS [facility]; Protocol Last Admin: 02/11/25 12:01 Dose: 4 unit Documented By: RENETTA Magnesium Hydroxide (Milk Of Magnesia 30 Ml Oral.Susp) 30 ml PO DAILY PRN PRN Reason: Constipation Melatonin (Melatonin 3 Mg Tablet) 6 mg PO BEDTIME PRN PRN Reason: Insomnia Ondansetron HCl (Ondansetron Hcl 4 Mg/2 Ml Vial) 4 mg IVPUSH Q8H PRN PRN Reason: Nausea and Vomiting Pharmacy Consult (Consult Rx Vancomycin Dosing) 1 each MISCELLANE DAILY PRN PRN Reason: Consult order Sodium Chloride (0.9 % Sodium Chloride Flush 3 Ml Syringe) 3 ml IVFLUSH QSHIFT [facility] Last Admin: 02/11/25 10:38 Dose: 3 ml Documented By: TARI Labs 02/11/25 06:20 02/11/25 06:20 Labs: Laboratory Results - last 24 hr 02/10/25 02/10/25 02/11/25 16:40 20:42 06:20 MCV 85.0 85.2 MCH 27.9 27.7 MCHC 32.8 32.6 RDW 14.9 14.8 Plt Count 198 172 MPV 11.5 11.7 Immature Gran % (Auto) 0.9 H 1.2 H Neut % (Auto) 63.4 59.9 Lymph % (Auto) 25.4 25.4 [place] % (Auto) 8.3 10.6 Eos % (Auto) 1.7 2.5 Baso % (Auto) 0.3 0.4 Lymph # (Auto) 2.3 1.9 [place] # (Auto) 0.7 0.8 Eos # (Auto) 0.2 0.2 Baso # (Auto) 0.0 0.0 Abs Immat Gran (auto) 0.08 H 0.09 H Absolute Neuts (auto) 5.6 4.4 Absolute Nucleated RBC 0.000 0.000 Nucleated RBC % (auto) 0.0 0.0 ESR 18 H Anion Gap 15 12 Estim Creat Clear Calc 55.1 53.9 Estimated GFR 40 39 POC Glucose 258 H Random Glucose 113 133 H Estimat Average Glucose 160 Hemoglobin A1c % 7.2 H Lactic Acid 0.9 Calcium 9.2 8.5 D Total Bilirubin 0.3 AST 21 ALT 17 Alkaline Phosphatase 139 H C-Reactive Protein 0.82 H Total Protein 8.2 H Albumin 4.7 02/11/25 11:39 MCV MCH MCHC RDW Plt Count MPV Immature Gran % (Auto) Neut % (Auto) Lymph % (Auto) [place] % (Auto) Eos % (Auto) Baso % (Auto) Lymph # (Auto) [place] # (Auto) Eos # (Auto) Baso # (Auto) Abs Immat Gran (auto) Absolute Neuts (auto) Absolute Nucleated RBC Nucleated RBC % (auto) ESR Anion Gap Estim Creat Clear Calc Estimated GFR POC Glucose 203 H Random Glucose Estimat Average Glucose Hemoglobin A1c % Lactic Acid Calcium Total Bilirubin AST ALT Alkaline Phosphatase C-Reactive Protein Total Protein Albumin Assessment and Plan (1) Osteomyelitis: Status: Acute (2) CKD (chronic kidney disease) stage 3, GFR 30-59 ml/min: Status: Inactive (3) Osteomyelitis: Status: Acute Plan 54-year-old male with pertinent history of peripheral arterial disease status post right 1st and 4th toe amputations, chronic kidney disease status post renal transplant on immunosuppressive therapy, insulin-dependent type 1 diabetes mellitus, history of testicular cancer stage III, hypertension, paroxysmal atrial fibrillation on anticoagulation who was sent to the emergency department for abnormal MRI. Acute right foot osteomyelitis. Outpatient MRI with diffuse enhancement of proximal phalanx and distal phalanx remnant of great toe consistent with acute osteomyelitis. Surrounding cellulitis and great toe abscess seen. Will admit patient and initiate empiric broad-spectrum IV antibiotics. Consulted Infectious Disease and General surgery, appreciate assistance. No sepsis CKD stage 3b status post left renal transplant. Continue mycophenolate and everolimus. Creatinine at baseline. Paroxysmal atrial fibrillation. On Eliquis. Rate controlled in the ER Mixed hyperlipidemia. 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 Continue calcifediol Insulin-dependent diabetes mellitus type 1. Reduce home basal regimen once med rec is complete. Initiating Accu-Cheks sliding scale insulin Hypertension: Continue home antihypertensives Med rec pending DVT prophylaxis: Eliquis Full code Admit as inpatient and will require two night minimum hospital stay for IV antibiotics (as above), which is not possible in a lesser acute setting. Quality Stroke Does the patient have a stroke diagnosis?: No VTE Prior VTE?: No VTE Risk Level:: Medical - moderate - high VTE Device Contraindication: Treatment Not Indicated VTE Drug Contraindication: N/A - Med Ordered
--- NOTE | 2025-02-11 12:29 | MHC.EDTECH ---
brought in [facility]
[2025-02-11 12:46] VITALS: BMI 31.8
[2025-02-11 12:49] VITALS: BP 146/72; PULSE 77; RESP 18; TEMP 36.8; O2SAT 96
[2025-02-11 15:16] VITALS: BP 148/72; PULSE 68; RESP 16; TEMP 36.9; O2SAT 97
[2025-02-11 16:44] LABS: Glucose, Whole Blood 159 mg/dL (60-115)
[2025-02-11 19:31] VITALS: BP 161/85; PULSE 70; RESP 18; TEMP 36.8; O2SAT 97
[2025-02-11] MEDS: Insulin Glargine,Hum.rec.anlog 100 UNIT/ML 10 ML VIAL 28 UNIT SUBCUT (20:54)
[2025-02-11] MEDS: EVEROLIMUS 1 MG 2 EACH PO (20:55)
--- NOTE | 2025-02-11 23:54 | PC.NURSE ---
2053 blood sugar by pt's glucose sensor was 180.pt given 2 units lispro insulin.
[2025-02-12 07:12] LABS: Creatinine Clr Calc Pharmacy 52.3; Estimated Glomerular Filt Rate 38
--- NOTE | 2025-02-12 07:50 | PC.NURSE ---
0745 blood sugar by pt's glucose sensor was 133. No insulin coverage per sliding scale.
[2025-02-12 07:56] VITALS: BP 145/81; PULSE 72; RESP 18; TEMP 36.7; O2SAT 97
--- NOTE | 2025-02-12 08:27 | P.PNIM_ITS ---
Subjective Subjective Date of Service: 02/12/25 Physical Exam 2 Exam: Exam: Appearing in no acute distress lung sounds are clear to auscultation heart regular rate rhythm, clear S1, S2 positive bowel sounds, abdomen is soft, nontender neuro patient is alert x3, no focal deficits Right foot diabetic foot wound Vital Signs: Vital Signs: Last Vital Signs Temp 98.1 F 02/12/25 07:56 Pulse 72 02/12/25 07:56 Resp 18 02/12/25 07:56 BP 145/81 H 02/12/25 07:56 Pulse Ox 97 02/12/25 07:56 O2 Del Method Room Air 02/12/25 07:56 BMI result Body Mass Index 31.8 Objective Data Active Medications Acetaminophen (Acetaminophen 325 Mg Tablet) 650 mg PO Q6H PRN PRN Reason: Pain, Mild 1-3,fever,headache Amlodipine Besylate (Amlodipine Besylate 10 Mg Tablet) 10 mg PO DAILY [facility]; Protocol Apixaban (Apixaban 5 Mg Tablet) 5 mg PO BID [facility] Last Admin: 02/11/25 20:53 Dose: 5 mg Documented By: JAROD Atorvastatin Calcium (Atorvastatin Calcium 40 Mg Tablet) 40 mg PO BEDTIME [facility] Last Admin: 02/11/25 20:53 Dose: 40 mg Documented By: JAROD Calcium Carbonate (Calcium Carbonate 750 Mg Tab.Chew) 750 mg PO Q4H PRN PRN Reason: Heartburn Dextrose (Dextrose 50 % 25 Gm/50 Ml Syringe) 25 gm IVPUSH Q15M PRN; Protocol PRN Reason: per Hypoglycemia Standing Ord. Empagliflozin (Empagliflozin 10 Mg Tablet) 10 mg PO DAILY [facility] Last Admin: 02/11/25 15:34 Dose: Not Given Documented By: HELENA Non-Admin Reason: Taken at Home Glucose (Glucose Gel 15 Gm Gel..Gram.) 15 gm PO Q15M PRN; Protocol PRN Reason: per Hypoglycemia Standing Ord. Piperacillin Sod/Tazobactam (Sod 4.5 gm/ Sodium Chloride) 100 mls @ 200 mls/hr IV Q6H [facility] Last Infusion: 02/12/25 05:39 Dose: Infused Documented By: JAROD Vancomycin HCl 1,500 mg/ (Sodium Chloride) 500 mls @ 333.333 mls/hr IV Q24H [facility] Last Infusion: 02/11/25 19:31 Dose: Infused Documented By: JAROD Insulin Glargine (Insulin Glargine,Hum.Rec.Anlog 100 Unit/Ml 10 Ml Vial) 28 unit SUBCUT BEDTIME [facility] Last Admin: 02/11/25 20:54 Dose: 28 unit Documented By: JAROD Insulin Human Lispro (Insulin Lispro 100 Unit/Ml 3 Ml Vial) 0 unit SUBCUT QIDACHS [facility]; Protocol Last Admin: 02/12/25 07:51 Dose: Not Given Documented By: HELENA Non-Admin Reason: No Insulin Coverage Magnesium Hydroxide (Milk Of Magnesia 30 Ml Oral.Susp) 30 ml PO DAILY PRN PRN Reason: Constipation Melatonin (Melatonin 3 Mg Tablet) 6 mg PO BEDTIME PRN PRN Reason: Insomnia Mycophenolate Sodium (Mycophenolate Sodium 180 Mg Tablet.Dr) 540 mg PO BID [facility] Last Admin: 02/11/25 20:54 Dose: 540 mg Documented By: JAROD Non-Formulary Medication (Calcifediol [Rayaldee]) 30 mcg PO BEDTIME [facility] Pt Own (Everolimus ( Immunosuppressive) 1 Mg Tablet) 2 mg PO BID [facility] Last Admin: 02/11/25 20:55 Dose: 2 mg Documented By: JAROD Ondansetron HCl (Ondansetron Hcl 4 Mg/2 Ml Vial) 4 mg IVPUSH Q8H PRN PRN Reason: Nausea and Vomiting Pharmacy Consult (Consult Rx Vancomycin Dosing) 1 each MISCELLANE DAILY PRN PRN Reason: Consult order Sodium Chloride (0.9 % Sodium Chloride Flush 3 Ml Syringe) 3 ml IVFLUSH QSHIFT [facility] Last Admin: 02/11/25 20:57 Dose: 3 ml Documented By: JAROD Labs 02/11/25 06:20 02/12/25 06:23 Labs: Laboratory Results - last 24 hr 02/11/25 02/11/25 02/11/25 06:20 11:39 16:31 Hold Purple Top Estim Creat Clear Calc Estimated GFR POC Glucose 203 H 159 H Estimat Average Glucose 160 Hemoglobin A1c % 7.2 H 02/12/25 06:23 Hold Purple Top SEE NOTE Estim Creat Clear Calc 52.3 Estimated GFR 38 POC Glucose Estimat Average Glucose Hemoglobin A1c % Microbiology Microbiology Results: Microbiology 02/10/25 16:59 Blood Culture - Preliminary Blood - Venous No growth after 24 hours. 02/10/25 16:40 Blood Culture - Preliminary Blood - Venous No growth after 24 hours. Assessment and Plan (1) Osteomyelitis: Status: Acute (2) CKD (chronic kidney disease) stage 3, GFR 30-59 ml/min: Status: Inactive (3) Osteomyelitis: Status: Acute Plan 54-year-old male with pertinent history of peripheral arterial disease status post right 1st and 4th toe amputations, chronic kidney disease status post renal transplant on immunosuppressive therapy, insulin-dependent type 1 diabetes mellitus, history of testicular cancer stage III, hypertension, paroxysmal atrial fibrillation on anticoagulation who was sent to the emergency department for abnormal MRI. Acute right foot osteomyelitis. wound is clean, no drainage or odor Outpatient MRI with diffuse enhancement of proximal phalanx and distal phalanx remnant of great toe consistent with acute osteomyelitis. continue empiric broad-spectrum IV antibiotics. Consulted Infectious Disease CKD stage 3b status post left renal transplant. Continue mycophenolate and everolimus. Creatinine at baseline. Paroxysmal atrial fibrillation. On Eliquis. Rate controlled in the ER Mixed hyperlipidemia. 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 Continue calcifediol Insulin-dependent diabetes mellitus type 1. Reduce home basal regimen once med rec is complete. Initiating Accu-Cheks sliding scale insulin Hypertension Continue home antihypertensives DVT prophylaxis: Eliquis Full code Admit as inpatient and will require two night minimum hospital stay for IV antibiotics (as above), which is not possible in a lesser acute setting. Quality Stroke Does the patient have a stroke diagnosis?: No VTE Prior VTE?: No VTE Risk Level:: Medical - moderate - high VTE Device Contraindication: Treatment Not Indicated VTE Drug Contraindication: N/A - Med Ordered
[2025-02-12] MEDS: EVEROLIMUS 1 MG 2 EACH PO ×2 (08:46→20:44)
[2025-02-12] MEDS: 0.9 % Sodium Chloride Flush 3 ML SYRINGE IVFLUSH ×3 (08:47→20:48)
[2025-02-12 11:22] LABS: Glucose, Whole Blood 198 mg/dL (60-115)
[2025-02-12 15:30] VITALS: BP 142/82; PULSE 65; RESP 16; TEMP 36.7; O2SAT 96
--- NOTE | 2025-02-12 15:34 | MHC.CM.PN ---
Addendum entered by Anisa Cramer 02/12/25 15:40: CORRECTION: PT ADMITTED WITH [facility], REFERRALS MADE TO [facility] PT HAS DONE IV ABX AT HOME IN THE PAST. Original Note: PT REPORTS HE LIVES WITH HIS AND DAUGHTER HE IS INDEPENDENT WITH CARE AND USES A CANE PRN HCP ON FILE PCP: [facility] DELIVERED DCP: HOME VIA PRIVATE TRANSPORT
[2025-02-12 16:21] LABS: Glucose, Whole Blood 146 mg/dL (60-115)
--- NOTE | 2025-02-12 16:49 | HE.PHANOTE ---
[facility] level came back this evening at 12.6. Patient has only received load and one dose of 1500 mg. Will continue with current dose however renal function is unstable. Will get another level tomorrow 02/13 @1600. predicted AUC 543
[2025-02-12] MEDS: Insulin Glargine,Hum.rec.anlog 100 UNIT/ML 10 ML VIAL 28 UNIT SUBCUT (20:44)
[2025-02-12 20:45] LABS: Glucose, Whole Blood 191 mg/dL (60-115)
--- NOTE | 2025-02-12 20:59 | P.CONGS_ITS ---
History of Present Illness Consult details Consult date: 02/11/25 Requesting physician: Sasha Chahal Narrative: The patient is a 54-year-old male with diabetes and end-stage renal disease status post kidney transplant and who has a history of testicular cancer who was wearing a new shoe over the last few days and developed a wound on the bottom of his right great toe which has a already been partially amputated. The wounds started getting larger and the area erythematous and as a result he was concerned and came to the emergency room. 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 Surrounding cellulitis and great toe abscess seen. As a result the patient was brought to the hospital to be admitted. Here he is being treated with vancomycin and Zosyn. General surgery consultation is being requested however the actual open wound areas pretty insignificant and looks like it is almost healed up. Patient denies any significant pain in the area he is feeling generally well. He would like to try to save this but understands that he is also somewhat immunosuppressed due to his transplant PMFSH Past Medical History Medical History HTN (hypertension) PAD (peripheral artery disease) CKD (chronic kidney disease) stage 3, GFR 30-59 ml/min MSSA bacteremia Osteomyelitis of third toe of left foot S/P angiogram of extremity (10/08/22) Diabetic ulcer of right foot Osteomyelitis Wound of right foot Chronic right shoulder pain Multinodular goiter Testicular cancer Bleeding internal hemorrhoids Seminoma Paresthesia and pain of extremity Type 2 diabetes mellitus with hyperglycemia, with long-term current use of insulin Type 2 diabetes mellitus with chronic kidney disease Hyperlipidemia Vaccination refused by patient Refused pneumococcal vaccination Anemia in stage 4 chronic kidney disease Acute proliferative glomerulonephritis Secondary hyperparathyroidism of renal origin Mixed dyslipidemia Peripheral vascular disease Carpal tunnel syndrome on left Diabetes mellitus with diabetic nephropathy, with long-term current use of insulin Osteomyelitis of left foot Diabetes mellitus with foot ulcer End-stage renal disease on hemodialysis Family History Family History Father Unknown family medical history Mother Diabetes mellitus HTN (hypertension) CVD (cardiovascular disease) History of CVA (cerebrovascular accident) Stroke Sister Diabetes mellitus Daughter No problems noted. Sister No problems noted. Sister No problems noted. Surgical History Surgical History Renal transplant recipient History of amputation (01/19/23) Amputated toe of right foot (10/13/22) History of kidney transplant Kidney transplant recipient Social History Social History Household Members: Spouse and Children Housing: House Do you presently have visiting nurse or other home services: No Alcohol intake: never Patient Tobacco Use Status: Never used Tobacco e-Cigarette/Vaping Use: Never Used Advance Directives Date on File: 01/16/23 service: No Current occupational status: disabled Current occupation: disability - kidney transplant. Left side dominant Cognitive needs: No Hearing needs: No Vision needs: No Meds Allergies Allergy/AdvReac Type Severity Reaction Status Date / Time No Known Allergies Allergy Verified 02/10/25 16:20 Active Medications: Current Medications Acetaminophen (Acetaminophen 325 Mg Tablet) 650 mg PO Q6H PRN PRN Reason: Pain, Mild 1-3,fever,headache Amlodipine Besylate (Amlodipine Besylate 10 Mg Tablet) 10 mg PO DAILY [facility]; Protocol Last Admin: 02/12/25 08:46 Dose: 10 mg Apixaban (Apixaban 5 Mg Tablet) 5 mg PO BID [facility] Last Admin: 02/12/25 20:45 Dose: 5 mg Atorvastatin Calcium (Atorvastatin Calcium 40 Mg Tablet) 40 mg PO BEDTIME [facility] Last Admin: 02/12/25 20:45 Dose: 40 mg Calcium Carbonate (Calcium Carbonate 750 Mg Tab.Chew) 750 mg PO Q4H PRN PRN Reason: Heartburn Dextrose (Dextrose 50 % 25 Gm/50 Ml Syringe) 25 gm IVPUSH Q15M PRN; Protocol PRN Reason: per Hypoglycemia Standing Ord. Empagliflozin (Empagliflozin 10 Mg Tablet) 10 mg PO DAILY [facility] Last Admin: 02/12/25 08:46 Dose: 10 mg Glucose (Glucose Gel 15 Gm Gel..Gram.) 15 gm PO Q15M PRN; Protocol PRN Reason: per Hypoglycemia Standing Ord. Piperacillin Sod/Tazobactam (Sod 4.5 gm/ Sodium Chloride) 100 mls @ 200 mls/hr IV Q6H [facility] Last Infusion: 02/12/25 17:58 Dose: Infused Vancomycin HCl 1,500 mg/ (Sodium Chloride) 500 mls @ 333.333 mls/hr IV Q24H [facility] Last Infusion: 02/12/25 19:27 Dose: Infused Insulin Glargine (Insulin Glargine,Hum.Rec.Anlog 100 Unit/Ml 10 Ml Vial) 28 unit SUBCUT BEDTIME [facility] Last Admin: 02/12/25 20:44 Dose: 28 unit Insulin Human Lispro (Insulin Lispro 100 Unit/Ml 3 Ml Vial) 0 unit SUBCUT QIDACHS [facility]; Protocol Last Admin: 02/12/25 20:44 Dose: 2 unit Magnesium Hydroxide (Milk Of Magnesia 30 Ml Oral.Susp) 30 ml PO DAILY PRN PRN Reason: Constipation Melatonin (Melatonin 3 Mg Tablet) 6 mg PO BEDTIME PRN PRN Reason: Insomnia Mycophenolate Sodium (Mycophenolate Sodium 180 Mg Tablet.Dr) 540 mg PO BID [facility] Last Admin: 02/12/25 20:45 Dose: 540 mg Pt Own (Everolimus ( Immunosuppressive) 1 Mg Tablet) 2 mg PO BID [facility] Last Admin: 02/12/25 20:44 Dose: 2 mg Ondansetron HCl (Ondansetron Hcl 4 Mg/2 Ml Vial) 4 mg IVPUSH Q8H PRN PRN Reason: Nausea and Vomiting Pharmacy Consult (Consult Rx Vancomycin Dosing) 1 each MISCELLANE DAILY PRN PRN Reason: Consult order Sodium Chloride (0.9 % Sodium Chloride Flush 3 Ml Syringe) 3 ml IVFLUSH QSHIFT [facility] Last Admin: 02/12/25 20:48 Dose: 3 ml Home Medications ?Medication ?Instructions ?Recorded ?Confirmed ?Last Taken ?Type lancets 28 gauge (FreeStyle #100 ea 06/26/21 12/30/24 Unknown History Lancets) doxycycline monohydrate 100 mg 100 mg PO BID 02/08/25 02/10/25 02/10/25 History capsule insulin aspart U-100 100 unit/mL 4 unit subcut TIDAC 0 02/10/25 02/10/25 02/09/25 History (3 mL) subcutaneous pen (Novolog FlexPen U-100 Insulin aspart) insulin glargine 100 unit/mL (3 28 unit subcut BEDTIME 02/10/25 02/10/25 02/09/25 History mL) subcutaneous pen (Lantus Solostar U-100 Insulin) Physical Exam 2 Vital Signs: Vital Signs: Last Vital Signs Temp 98.1 F 02/12/25 15:30 Pulse 65 02/12/25 15:30 Resp 16 02/12/25 15:30 BP 142/82 H 02/12/25 15:30 Pulse Ox 96 02/12/25 15:30 O2 Del Method Room Air 02/12/25 15:30 BMI result Body Mass Index 31.8 Const: General: cooperative, healthy appearing, comfortable and no acute distress Extrem: Other: Right lower extremity foot has a nice palpable dorsalis pedis pulse tissue looks well vascularized. At the base of the right great toe amputated site little more proximally closer to the MTP head there is a small healed ulcerated area which with palpation does not reveal any fluctuant area or any drainage. There is no significant erythema here. The rest of the foot looks good Results Labs 02/11/25 06:20 02/12/25 06:23 Labs: Abnormal lab results 02/12/25 02/12/25 02/12/25 Range/Units 06:23 11:17 16:10 Creatinine 1.88 H (0.5-1.4) mg/dL POC Glucose 198 H (60-115) mg/dL Random Vancomycin 12.9 L (15-20) mcg/mL 02/12/25 02/12/25 Range/Units 16:17 20:18 Creatinine (0.5-1.4) mg/dL POC Glucose 146 H 191 H (60-115) mg/dL Random Vancomycin (15-20) mcg/mL [facility] 02/12/25 06:23 Creatinine 1.88 H All other labs normal. Assessment and Plan (1) Osteomyelitis: Status: Acute Plan 54-year-old male with multiple medical problems most consistent for type 2 diabetes with now kidney transplant doing well and also history of testicular cancer. Now with osteomyelitis of remaining right great toe. The wound looks good and pretty much healed with no true deep abscess noted by physical exam. At this point soft tissue was doing well continue with offloading and IV Zosyn and vancomycin. ID consult to determine correction 6 week IV antibiotic treatment course for probable acute on chronic osteomyelitis. May consider HBO as adjuvant therapy. If patient does not improve from the osteomyelitis perspective would not want this to get worse secondary to his immunosuppression for his kidney transplant and at that point we would recommend surgical podiatry consult for potential up debriding and carrying out a little more proximal amputation. Patient should still eventually be able to ambulate well and with his good vascular supply should heal this. In the meantime continue with medical management as above Procedures Date of Service Date of Service: 02/12/25
[2025-02-12 23:32] VITALS: BP 125/70; PULSE 60; RESP 17; TEMP 37.1; O2SAT 95
[2025-02-13 07:31] LABS: Creatinine Clr Calc Pharmacy 49.9; Estimated Glomerular Filt Rate 36
[2025-02-13 08:00] VITALS: BP 137/79; PULSE 71; RESP 16; TEMP 36.6; O2SAT 94
[2025-02-13 08:07] LABS: Glucose, Whole Blood 105 mg/dL (60-115)
[2025-02-13] MEDS: 0.9 % Sodium Chloride Flush 3 ML SYRINGE IVFLUSH ×3 (08:11→21:47)
[2025-02-13] MEDS: EVEROLIMUS 1 MG 2 EACH PO ×2 (08:11→21:37)
--- NOTE | 2025-02-13 08:38 | HO.PM.IMPN ---
Subjective Subjective Date of Service: 02/13/25 Review of Systems Follow up osteomyelitis, diabetic foot wound Doing well today, no pain Physical Exam Exam: Exam: Appearing in no acute distress lung sounds are clear to auscultation heart regular rate rhythm, clear S1, S2 positive bowel sounds, abdomen is soft, nontender neuro patient is alert x3, no focal deficits Vital Signs: Vital Signs: Last Vital Signs Temp 97.9 F 02/13/25 08:00 Pulse 71 02/13/25 08:00 Resp 16 02/13/25 08:00 BP 137/79 02/13/25 08:00 Pulse Ox 94 02/13/25 08:00 O2 Del Method Room Air 02/13/25 08:00 BMI result Body Mass Index 31.8 Objective Data Active Medications Acetaminophen (Acetaminophen 325 Mg Tablet) 650 mg PO Q6H PRN PRN Reason: Pain, Mild 1-3,fever,headache Amlodipine Besylate (Amlodipine Besylate 10 Mg Tablet) 10 mg PO DAILY [facility]; Protocol Last Admin: 02/13/25 08:11 Dose: 10 mg Documented By: RACHELE Apixaban (Apixaban 5 Mg Tablet) 5 mg PO BID [facility] Last Admin: 02/13/25 08:11 Dose: 5 mg Documented By: RACHELE Atorvastatin Calcium (Atorvastatin Calcium 40 Mg Tablet) 40 mg PO BEDTIME [facility] Last Admin: 02/12/25 20:45 Dose: 40 mg Documented By: JAROD Calcium Carbonate (Calcium Carbonate 750 Mg Tab.Chew) 750 mg PO Q4H PRN PRN Reason: Heartburn Dextrose (Dextrose 50 % 25 Gm/50 Ml Syringe) 25 gm IVPUSH Q15M PRN; Protocol PRN Reason: per Hypoglycemia Standing Ord. Empagliflozin (Empagliflozin 10 Mg Tablet) 10 mg PO DAILY [facility] Last Admin: 02/13/25 08:11 Dose: 10 mg Documented By: RACHELE Glucose (Glucose Gel 15 Gm Gel..Gram.) 15 gm PO Q15M PRN; Protocol PRN Reason: per Hypoglycemia Standing Ord. Piperacillin Sod/Tazobactam (Sod 4.5 gm/ Sodium Chloride) 100 mls @ 200 mls/hr IV Q6H [facility] Last Infusion: 02/13/25 05:24 Dose: Infused Documented By: JAROD Vancomycin HCl 1,500 mg/ (Sodium Chloride) 500 mls @ 333.333 mls/hr IV Q24H [facility] Last Infusion: 02/12/25 19:27 Dose: Infused Documented By: JAROD Insulin Glargine (Insulin Glargine,Hum.Rec.Anlog 100 Unit/Ml 10 Ml Vial) 28 unit SUBCUT BEDTIME [facility] Last Admin: 02/12/25 20:44 Dose: 28 unit Documented By: JAROD Insulin Human Lispro (Insulin Lispro 100 Unit/Ml 3 Ml Vial) 0 unit SUBCUT QIDACHS [facility]; Protocol Last Admin: 02/13/25 08:05 Dose: Not Given Documented By: RACHELE Non-Admin Reason: No Insulin Coverage Magnesium Hydroxide (Milk Of Magnesia 30 Ml Oral.Susp) 30 ml PO DAILY PRN PRN Reason: Constipation Melatonin (Melatonin 3 Mg Tablet) 6 mg PO BEDTIME PRN PRN Reason: Insomnia Mycophenolate Sodium (Mycophenolate Sodium 180 Mg Tablet.) 540 mg PO BID [facility] Last Admin: 02/13/25 08:11 Dose: 540 mg Documented By: RACHELE Pt Own (Everolimus ( Immunosuppressive) 1 Mg Tablet) 2 mg PO BID [facility] Last Admin: 02/13/25 08:11 Dose: 2 mg Documented By: RACHELE Ondansetron HCl (Ondansetron Hcl 4 Mg/2 Ml Vial) 4 mg IVPUSH Q8H PRN PRN Reason: Nausea and Vomiting Pharmacy Consult (Consult Rx Vancomycin Dosing) 1 each MISCELLANE DAILY PRN PRN Reason: Consult order Sodium Chloride (0.9 % Sodium Chloride Flush 3 Ml Syringe) 3 ml IVFLUSH QSHIFT [facility] Last Admin: 02/13/25 08:11 Dose: 3 ml Documented By: RACHELE Labs 02/11/25 06:20 02/13/25 06:23 Labs: Laboratory Results - last 24 hr 02/12/25 02/12/25 02/12/25 11:17 16:10 16:17 Hold Purple Top Estim Creat Clear Calc Estimated GFR POC Glucose 198 H 146 H Random Vancomycin 12.9 L 02/12/25 02/13/25 02/13/25 20:18 06:23 07:34 Hold Purple Top SEE NOTE Estim Creat Clear Calc 49.9 Estimated GFR 36 POC Glucose 191 H 105 Random Vancomycin Microbiology Microbiology Results: Microbiology 02/10/25 16:59 Blood Culture - Preliminary Blood - Venous No growth after 48 hours. 02/10/25 16:40 Blood Culture - Preliminary Blood - Venous No growth after 48 hours. Assessment and Plan (1) Osteomyelitis: Status: Acute (2) CKD (chronic kidney disease) stage 3, GFR 30-59 ml/min: Status: Inactive (3) Osteomyelitis: Status: Acute Plan 54-year-old male with pertinent history of peripheral arterial disease status post right 1st and 4th toe amputations, chronic kidney disease status post renal transplant on immunosuppressive therapy, insulin-dependent type 1 diabetes mellitus, history of testicular cancer stage III, hypertension, paroxysmal atrial fibrillation on anticoagulation who was sent to the emergency department for abnormal MRI. Acute right foot osteomyelitis. wound is clean, no drainage or odor Outpatient MRI with diffuse enhancement of proximal phalanx and distal phalanx remnant of great toe consistent with acute osteomyelitis. continue vancomcyin Consulted Infectious Disease CKD stage 3b status post left renal transplant. Continue mycophenolate and everolimus. Creatinine at baseline. Paroxysmal atrial fibrillation. On Eliquis. Rate controlled in the ER Mixed hyperlipidemia. 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 Continue calcifediol Insulin-dependent diabetes mellitus type 1. Reduce home basal regimen once med rec is complete. Initiating Accu-Cheks sliding scale insulin Hypertension Continue home antihypertensives DVT prophylaxis: Eliquis Full code Quality Stroke Does the patient have a stroke diagnosis?: No VTE Prior VTE?: No VTE Risk Level:: Medical - moderate - high VTE Device Contraindication: Treatment Not Indicated VTE Drug Contraindication: N/A - Med Ordered
[2025-02-13 12:25] LABS: Glucose, Whole Blood 196 mg/dL (60-115)
[2025-02-13 15:52] VITALS: BP 153/74; PULSE 85; RESP 16; TEMP 36.8; O2SAT 97
[2025-02-13 16:20] LABS: Glucose, Whole Blood 154 mg/dL (60-115)
[2025-02-13 20:08] VITALS: BP 157/77; PULSE 78; RESP 18; TEMP 36.3; O2SAT 99
[2025-02-13 21:02] LABS: Glucose, Whole Blood 146 mg/dL (60-115)
[2025-02-13] MEDS: Insulin Glargine,Hum.rec.anlog 100 UNIT/ML 10 ML VIAL 28 UNIT SUBCUT (21:40)
[2025-02-13 23:30] VITALS: BP 162/79; PULSE 76; RESP 18; TEMP 36.4; O2SAT 96
--- NOTE | 2025-02-14 01:03 | W.PM.IDCN ---
History of Present Illness Data of Consult Service Date: 02/13/25 Requesting physician: Sasha Chahal Primary Care Provider: Geovanni Pink MD HPI Reason for consult: right foot wound He presents with right foot swelling and redness. He had great toe area leakage since November,serosanguinous. He had po Doxycycline and no improvement. He had MSSA bacteremia in 2022 and I had seen him in 2023 with right foot OM concern and had six weeks Daptomycin and then amputation 1,4. He has MRI OM great toe area. Review of Systems Review of Systems: Yes all other systems are reviewed and are negative [facility] Past Medical History Medical History HTN (hypertension) PAD (peripheral artery disease) CKD (chronic kidney disease) stage 3, GFR 30-59 ml/min MSSA bacteremia Osteomyelitis of third toe of left foot S/P angiogram of extremity (10/08/22) Diabetic ulcer of right foot Osteomyelitis Wound of right foot Chronic right shoulder pain Multinodular goiter Testicular cancer Bleeding internal hemorrhoids Seminoma Paresthesia and pain of extremity Type 2 diabetes mellitus with hyperglycemia, with long-term current use of insulin Type 2 diabetes mellitus with chronic kidney disease Hyperlipidemia Vaccination refused by patient Refused pneumococcal vaccination Anemia in stage 4 chronic kidney disease Acute proliferative glomerulonephritis Secondary hyperparathyroidism of renal origin Mixed dyslipidemia Peripheral vascular disease Carpal tunnel syndrome on left Diabetes mellitus with diabetic nephropathy, with long-term current use of insulin Osteomyelitis of left foot Diabetes mellitus with foot ulcer End-stage renal disease on hemodialysis Family History Family History Father Unknown family medical history Mother Diabetes mellitus HTN (hypertension) CVD (cardiovascular disease) History of CVA (cerebrovascular accident) Stroke Sister Diabetes mellitus Daughter No problems noted. Sister No problems noted. Sister No problems noted. Surgical History Surgical History Renal transplant recipient History of amputation (01/19/23) Amputated toe of right foot (10/13/22) History of kidney transplant Kidney transplant recipient Social History Social History Household Members: Spouse and Children Housing: House Do you presently have visiting nurse or other home services: No Alcohol intake: never Patient Tobacco Use Status: Never used Tobacco e-Cigarette/Vaping Use: Never Used Advance Directives Date on File: 01/16/23 service: No Current occupational status: disabled Current occupation: disability - kidney transplant. Left side dominant Cognitive needs: No Hearing needs: No Vision needs: No Meds Allergies Allergy/AdvReac Type Severity Reaction Status Date / Time No Known Allergies Allergy Verified 02/10/25 16:20 Active Medications: Current Medications Acetaminophen (Acetaminophen 325 Mg Tablet) 650 mg PO Q6H PRN PRN Reason: Pain, Mild 1-3,fever,headache Amlodipine Besylate (Amlodipine Besylate 10 Mg Tablet) 10 mg PO DAILY [facility]; Protocol Last Admin: 02/13/25 08:11 Dose: 10 mg Apixaban (Apixaban 5 Mg Tablet) 5 mg PO BID [facility] Last Admin: 02/13/25 21:37 Dose: 5 mg Atorvastatin Calcium (Atorvastatin Calcium 40 Mg Tablet) 40 mg PO BEDTIME [facility] Last Admin: 02/13/25 21:37 Dose: 40 mg Calcium Carbonate (Calcium Carbonate 750 Mg Tab.Chew) 750 mg PO Q4H PRN PRN Reason: Heartburn Dextrose (Dextrose 50 % 25 Gm/50 Ml Syringe) 25 gm IVPUSH Q15M PRN; Protocol PRN Reason: per Hypoglycemia Standing Ord. Empagliflozin (Empagliflozin 10 Mg Tablet) 10 mg PO DAILY [facility] Last Admin: 02/13/25 08:11 Dose: 10 mg Glucose (Glucose Gel 15 Gm Gel..Gram.) 15 gm PO Q15M PRN; Protocol PRN Reason: per Hypoglycemia Standing Ord. Vancomycin HCl 1,500 mg/ (Sodium Chloride) 500 mls @ 333.333 mls/hr IV Q24H [facility] Last Infusion: 02/13/25 19:23 Dose: Infused Insulin Glargine (Insulin Glargine,Hum.Rec.Anlog 100 Unit/Ml 10 Ml Vial) 28 unit SUBCUT BEDTIME [facility] Last Admin: 02/13/25 21:40 Dose: 28 unit Insulin Human Lispro (Insulin Lispro 100 Unit/Ml 3 Ml Vial) 0 unit SUBCUT QIDACHS [facility]; Protocol Last Admin: 02/13/25 21:45 Dose: Not Given Magnesium Hydroxide (Milk Of Magnesia 30 Ml Oral.Susp) 30 ml PO DAILY PRN PRN Reason: Constipation Melatonin (Melatonin 3 Mg Tablet) 6 mg PO BEDTIME PRN PRN Reason: Insomnia Mycophenolate Sodium (Mycophenolate Sodium 180 Mg Tablet.Dr) 540 mg PO BID [facility] Last Admin: 02/13/25 21:37 Dose: 540 mg Pt Own (Everolimus ( Immunosuppressive) 1 Mg Tablet) 2 mg PO BID [facility] Last Admin: 02/13/25 21:37 Dose: 2 mg Ondansetron HCl (Ondansetron Hcl 4 Mg/2 Ml Vial) 4 mg IVPUSH Q8H PRN PRN Reason: Nausea and Vomiting Pharmacy Consult (Consult Rx Vancomycin Dosing) 1 each MISCELLANE DAILY PRN PRN Reason: Consult order Sodium Chloride (0.9 % Sodium Chloride Flush 3 Ml Syringe) 3 ml IVFLUSH QSHIFT [facility] Last Admin: 02/13/25 21:47 Dose: 3 ml Home Medications ?Medication ?Instructions ?Recorded ?Confirmed ?Last Taken ?Type lancets 28 gauge (FreeStyle #100 ea 06/26/21 12/30/24 Unknown History Lancets) doxycycline monohydrate 100 mg 100 mg PO BID 02/08/25 02/10/25 02/10/25 History capsule insulin aspart U-100 100 unit/mL 4 unit subcut TIDAC 02/10/25 02/10/25 02/09/25 History (3 mL) subcutaneous pen (Novolog FlexPen U-100 Insulin aspart) insulin glargine 100 unit/mL (3 28 unit subcut BEDTIME 02/10/25 02/10/25 02/09/25 History mL) subcutaneous pen (Lantus Solostar U-100 Insulin) Physical Exam Vital Signs: Vital Signs: Last Vital Signs Temp 97.6 F 02/13/25 23:30 Pulse 76 02/13/25 23:30 Resp 18 02/13/25 23:30 BP 162/79 H 02/13/25 23:30 Pulse Ox 96 02/13/25 23:30 O2 Del Method Room Air 02/13/25 23:30 BMI result Body Mass Index 31.8 Const: General: cooperative HEENT: Head: Yes normal to inspection Face and sinus: Yes normal facial exam Mouth: Normal oral and palatal mucosa present Teeth and gingiva: dentition normal Eyes: General: appearance normal, both eyes and all related structures Pupils: Equal, round and reactive pupils present Resp: Effort & Inspection: normal respiratory effort Cardio: Rate: regular rate Rhythm: regular rhythm GI: Palpation (GI): Soft to palpation and nontender : General: Yes no CVA tenderness Back/Spine/Pelvis: Back: no CVA tenderness Skin: General skin exam: no rashes or lesions noted Neuro: General: moves all extremities Cranial nerves: Yes Equal, round and reactive pupils present Extrem: Other: right foot area first great toe reddened,possible tinea pedis Psych: Appearance: grossly normal Results Labs 02/11/25 06:20 02/13/25 06:23 Labs: BMP 02/13/25 06:23 Creatinine 1.97 H Microbiology Microbiology Results: Microbiology 02/10/25 16:59 Blood - Venous Blood Culture - Preliminary No growth after 48 hours. 02/10/25 16:40 Blood - Venous Blood Culture - Preliminary No growth after 48 hours. Assessment and Plan (1) PAD (peripheral artery disease): Status: Acute (2) Osteomyelitis: Status: Acute He has possible gram positive orgainsims. He has CKD,renal transplant on immunosuppressives Plan Six weeks Daptomycin again with weekly CK and creatinine. Follow Vascular.
[2025-02-14 03:57] VITALS: BP 139/74; PULSE 77; RESP 18; TEMP 36.8; O2SAT 94
[2025-02-14 07:13] LABS: Creatinine Clr Calc Pharmacy 58.6; Estimated Glomerular Filt Rate 43
[2025-02-14 07:17] VITALS: BP 136/85; PULSE 80; RESP 16; TEMP 36.4; O2SAT 96
[2025-02-14 07:34] LABS: Glucose, Whole Blood 100 mg/dL (60-115)
[2025-02-14] MEDS: EVEROLIMUS 1 MG 2 EACH PO ×2 (08:24→20:17)
[2025-02-14] MEDS: 0.9 % Sodium Chloride Flush 3 ML SYRINGE IVFLUSH ×3 (08:26→20:22)
--- NOTE | 2025-02-14 08:57 | P.PNIM_ITS ---
Subjective Subjective Date of Service: 02/14/25 Review of Systems Follow up osteomyelitis, diabetic foot wound Doing well today, no pain Physical Exam 2 Exam: Exam: Appearing in no acute distress lung sounds are clear to auscultation heart regular rate rhythm, clear S1, S2 positive bowel sounds, abdomen is soft, non tender neuro patient is alert x3, no focal deficits Vital Signs: Vital Signs: Last Vital Signs Temp 97.5 F 02/14/25 07:17 Pulse 80 02/14/25 07:17 Resp 16 02/14/25 07:17 BP 136/85 02/14/25 07:17 Pulse Ox 96 02/14/25 07:17 O2 Del Method Room Air 02/14/25 07:17 BMI result Body Mass Index 31.8 Objective Data Active Medications Acetaminophen (Acetaminophen 325 Mg Tablet) 650 mg PO Q6H PRN PRN Reason: Pain, Mild 1-3,fever,headache Amlodipine Besylate (Amlodipine Besylate 10 Mg Tablet) 10 mg PO DAILY [facility]; Protocol Last Admin: 02/14/25 08:23 Dose: 10 mg Documented By: RACHELE Apixaban (Apixaban 5 Mg Tablet) 5 mg PO BID [facility] Last Admin: 02/14/25 08:26 Dose: Not Given Documented By: RACHELE Non-Admin Reason: hold for procedure Atorvastatin Calcium (Atorvastatin Calcium 40 Mg Tablet) 40 mg PO BEDTIME [facility] Last Admin: 02/13/25 21:37 Dose: 40 mg Documented By: GASTON Calcium Carbonate (Calcium Carbonate 750 Mg Tab.Chew) 750 mg PO Q4H PRN PRN Reason: Heartburn Dextrose (Dextrose 50 % 25 Gm/50 Ml Syringe) 25 gm IVPUSH Q15M PRN; Protocol PRN Reason: per Hypoglycemia Standing Ord. Empagliflozin (Empagliflozin 10 Mg Tablet) 10 mg PO DAILY [facility] Last Admin: 02/14/25 08:23 Dose: 10 mg Documented By: RACHELE Glucose (Glucose Gel 15 Gm Gel..Gram.) 15 gm PO Q15M PRN; Protocol PRN Reason: per Hypoglycemia Standing Ord. Vancomycin HCl 1,500 mg/ (Sodium Chloride) 500 mls @ 333.333 mls/hr IV Q24H [facility] Last Infusion: 02/13/25 19:23 Dose: Infused Documented By: AUSTIN Insulin Glargine (Insulin Glargine,Hum.Rec.Anlog 100 Unit/Ml 10 Ml Vial) 28 unit SUBCUT BEDTIME [facility] Last Admin: 02/13/25 21:40 Dose: 28 unit Documented By: GASTON Insulin Human Lispro (Insulin Lispro 100 Unit/Ml 3 Ml Vial) 0 unit SUBCUT QIDACHS [facility]; Protocol Last Admin: 02/14/25 07:44 Dose: Not Given Documented By: RACHELE Non-Admin Reason: No Insulin Coverage Magnesium Hydroxide (Milk Of Magnesia 30 Ml Oral.Susp) 30 ml PO DAILY PRN PRN Reason: Constipation Melatonin (Melatonin 3 Mg Tablet) 6 mg PO BEDTIME PRN PRN Reason: Insomnia Mycophenolate Sodium (Mycophenolate Sodium 180 Mg Tablet.) 540 mg PO BID [facility] Last Admin: 02/14/25 08:23 Dose: 540 mg Documented By: RACHELE Pt Own (Everolimus ( Immunosuppressive) 1 Mg Tablet) 2 mg PO BID [facility] Last Admin: 02/14/25 08:24 Dose: 2 mg Documented By: RACHELE Ondansetron HCl (Ondansetron Hcl 4 Mg/2 Ml Vial) 4 mg IVPUSH Q8H PRN PRN Reason: Nausea and Vomiting Pharmacy Consult (Consult Rx Vancomycin Dosing) 1 each MISCELLANE DAILY PRN PRN Reason: Consult order Sodium Chloride (0.9 % Sodium Chloride Flush 3 Ml Syringe) 3 ml IVFLUSH QSHIFT [facility] Last Admin: 02/14/25 08:26 Dose: 3 ml Documented By: RACHELE Labs 02/11/25 06:20 02/14/25 06:14 Labs: Laboratory Results - last 24 hr 02/13/25 02/13/25 02/13/25 12:20 16:04 16:11 Hold Purple Top Estim Creat Clear Calc Estimated GFR POC Glucose 196 H 154 H Random Vancomycin 14.2 L 02/13/25 02/14/25 02/14/25 20:46 06:14 07:23 Hold Purple Top SEE NOTE Estim Creat Clear Calc 58.6 Estimated GFR 43 POC Glucose 146 H 100 Random Vancomycin Assessment and Plan (1) Osteomyelitis: Status: Acute (2) CKD (chronic kidney disease) stage 3, GFR 30-59 ml/min: Status: Inactive (3) Osteomyelitis: Status: Acute Plan 54-year-old male with pertinent history of peripheral arterial disease status post right 1st and 4th toe amputations, chronic kidney disease status post renal transplant on immunosuppressive therapy, insulin-dependent type 1 diabetes mellitus, history of testicular cancer stage III, hypertension, paroxysmal atrial fibrillation on anticoagulation who was sent to the emergency department for abnormal MRI. Acute right foot osteomyelitis. wound is clean, no drainage or odor Outpatient MRI with diffuse enhancement of proximal phalanx and distal phalanx remnant of great toe consistent with acute osteomyelitis. continue vancomcyin Consulted Infectious Disease> 6 weeks of daptomycin with wkly ck and creat CKD stage 3b status post left renal transplant. Continue mycophenolate and everolimus. Creatinine at baseline. Paroxysmal atrial fibrillation. On Eliquis, hold for Alston tomorrow Rate controlled in the ER Mixed hyperlipidemia. 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 Continue calcifediol Insulin-dependent diabetes mellitus type 1. ss, ada diet lantus Hypertension Continue home antihypertensives DVT prophylaxis: Eliquis, hold for Alston tomorrow Full code Quality Stroke Does the patient have a stroke diagnosis?: No VTE Prior VTE?: No VTE Risk Level:: Medical - moderate - high VTE Device Contraindication: Treatment Not Indicated VTE Drug Contraindication: N/A - Med Ordered
[2025-02-14 11:35] LABS: Glucose, Whole Blood 187 mg/dL (60-115)
--- NOTE | 2025-02-14 14:43 | PM.CNNEP ---
History of Present Illness Reason for Consult Consult date: 02/14/25 Chief Complaint Chief complaint: foot wound History of Present Illness Narrative: 54 y/o male with PAD s/p 1st and second toe amputations, CKD s/p renal transplant on immunosuppression, DMI, hx testicular cancer, HTN, afib, here with acute osteomyelitis of right great residual toe. He is on mycophenolate 540mg PO BID, everolimus 2mg in the a.m., 1mg in p.m. creatinine remains at baseline, 1.68 today. Plan for leach catheter placement tomorrow for long-term antibiotics for osteomyelitis treatment. Patient reports he feels well. Denies pain, shortness of breath, urinary symptoms, lower extremity swelling. Review of Systems Review of Systems Yes all other systems are reviewed and are negative PMFSH Past Medical History Medical History HTN (hypertension) PAD (peripheral artery disease) CKD (chronic kidney disease) stage 3, GFR 30-59 ml/min MSSA bacteremia Osteomyelitis of third toe of left foot S/P angiogram of extremity (10/08/22) Diabetic ulcer of right foot Osteomyelitis Wound of right foot Chronic right shoulder pain Multinodular goiter Testicular cancer Bleeding internal hemorrhoids Seminoma Paresthesia and pain of extremity Type 2 diabetes mellitus with hyperglycemia, with long-term current use of insulin Type 2 diabetes mellitus with chronic kidney disease Hyperlipidemia Vaccination refused by patient Refused pneumococcal vaccination Anemia in stage 4 chronic kidney disease Acute proliferative glomerulonephritis Secondary hyperparathyroidism of renal origin Mixed dyslipidemia Peripheral vascular disease Carpal tunnel syndrome on left Diabetes mellitus with diabetic nephropathy, with long-term current use of insulin Osteomyelitis of left foot Diabetes mellitus with foot ulcer End-stage renal disease on hemodialysis Family History Family History Father Unknown family medical history Mother Diabetes mellitus HTN (hypertension) CVD (cardiovascular disease) History of CVA (cerebrovascular accident) Stroke Sister Diabetes mellitus Daughter No problems noted. Sister No problems noted. Sister No problems noted. Surgical History Surgical History Renal transplant recipient History of amputation (01/19/23) Amputated toe of right foot (10/13/22) History of kidney transplant Kidney transplant recipient Social History Social History Household Members: Spouse and Children Housing: House Do you presently have visiting nurse or other home services: No Alcohol intake: never Patient Tobacco Use Status: Never used Tobacco e-Cigarette/Vaping Use: Never Used Advance Directives Date on File: 01/16/23 service: No Current occupational status: disabled Current occupation: disability - kidney transplant. Left side dominant Cognitive needs: No Hearing needs: No Vision needs: No Meds Allergies Allergy/AdvReac Type Severity Reaction Status Date / Time No Known Allergies Allergy Verified 02/10/25 16:20 Active Medications: Current Medications Acetaminophen (Acetaminophen 325 Mg Tablet) 650 mg PO Q6H PRN PRN Reason: Pain, Mild 1-3,fever,headache Amlodipine Besylate (Amlodipine Besylate 10 Mg Tablet) 10 mg PO DAILY [facility]; Protocol Last Admin: 02/14/25 08:23 Dose: 10 mg Apixaban (Apixaban 5 Mg Tablet) 5 mg PO BID [facility] On Hold: 02/14/25 08:57 Last Admin: 02/14/25 08:26 Dose: Not Given Atorvastatin Calcium (Atorvastatin Calcium 40 Mg Tablet) 40 mg PO BEDTIME [facility] Last Admin: 02/13/25 21:37 Dose: 40 mg Calcium Carbonate (Calcium Carbonate 750 Mg Tab.Chew) 750 mg PO Q4H PRN PRN Reason: Heartburn Dextrose (Dextrose 50 % 25 Gm/50 Ml Syringe) 25 gm IVPUSH Q15M PRN; Protocol PRN Reason: per Hypoglycemia Standing Ord. Empagliflozin (Empagliflozin 10 Mg Tablet) 10 mg PO DAILY [facility] Last Admin: 02/14/25 08:23 Dose: 10 mg Glucose (Glucose Gel 15 Gm Gel..Gram.) 15 gm PO Q15M PRN; Protocol PRN Reason: per Hypoglycemia Standing Ord. Vancomycin HCl 1,500 mg/ (Sodium Chloride) 500 mls @ 333.333 mls/hr IV Q24H [facility] Last Infusion: 02/13/25 19:23 Dose: Infused Insulin Glargine (Insulin Glargine,Hum.Rec.Anlog 100 Unit/Ml 10 Ml Vial) 28 unit SUBCUT BEDTIME [facility] Last Admin: 02/13/25 21:40 Dose: 28 unit Insulin Human Lispro (Insulin Lispro 100 Unit/Ml 3 Ml Vial) 0 unit SUBCUT QIDACHS [facility]; Protocol Last Admin: 02/14/25 12:44 Dose: 2 unit Magnesium Hydroxide (Milk Of Magnesia 30 Ml Oral.Susp) 30 ml PO DAILY PRN PRN Reason: Constipation Melatonin (Melatonin 3 Mg Tablet) 6 mg PO BEDTIME PRN PRN Reason: Insomnia Mycophenolate Sodium (Mycophenolate Sodium 180 Mg Tablet.Dr) 540 mg PO BID [facility] Last Admin: 02/14/25 08:23 Dose: 540 mg Pt Own (Everolimus ( Immunosuppressive) 1 Mg Tablet) 2 mg PO BID [facility] Last Admin: 02/14/25 08:24 Dose: 2 mg Ondansetron HCl (Ondansetron Hcl 4 Mg/2 Ml Vial) 4 mg IVPUSH Q8H PRN PRN Reason: Nausea and Vomiting Pharmacy Consult (Consult Rx Vancomycin Dosing) 1 each MISCELLANE DAILY PRN PRN Reason: Consult order Sodium Chloride (0.9 % Sodium Chloride Flush 3 Ml Syringe) 3 ml IVFLUSH QSHIFT [facility] Last Admin: 02/14/25 08:26 Dose: 3 ml Home Medications ?Medication ?Instructions ?Recorded ?Confirmed ?Last Taken ?Type lancets 28 gauge (FreeStyle #100 ea 06/26/21 12/30/24 Unknown History Lancets) doxycycline monohydrate 100 mg 100 mg PO BID 02/08/25 02/10/25 02/10/25 History capsule insulin aspart U-100 100 unit/mL 4 unit subcut TIDAC 02/10/25 02/10/25 02/09/25 History (3 mL) subcutaneous pen (Novolog FlexPen U-100 Insulin aspart) insulin glargine 100 unit/mL (3 28 unit subcut BEDTIME 02/10/25 02/10/25 02/09/25 History mL) subcutaneous pen (Lantus Solostar U-100 Insulin) Physical Exam Vital Signs: Last Vital Signs Temp 97.5 F 02/14/25 07:17 Pulse 80 02/14/25 07:17 Resp 16 02/14/25 07:17 BP 136/85 02/14/25 07:17 Pulse Ox 96 02/14/25 07:17 O2 Del Method Room Air 02/14/25 07:17 BMI result Body Mass Index 31.8 Const General: no acute distress, alert and awake Resp Effort & Inspection: normal respiratory effort and able to speak in complete sentences Auscultation: clear to auscultation bilaterally Cardio Rate: regular rate Rhythm: regular rhythm Heart sounds: S1 normal heart sound present and S2 normal heart sound present GI Palpation (GI): Soft to palpation and nontender General: Yes no CVA tenderness Back/Spine/Pelvis Back: no CVA tenderness Skin Rashes: no rashes Extrem General: Yes edema Results Lab Results 02/11/25 06:20 02/14/25 06:14 Lab results: Chemistry 02/12/25 02/13/25 02/14/25 06:23 06:23 06:14 Creatinine 1.88 H 1.97 H 1.68 H Assessment and Plan (1) Renal transplant recipient: Status: Acute (2) CKD (chronic kidney disease): Qualifiers: Chronic kidney disease stage: stage 3 (moderate) Chronic kidney disease stage 3 subtype: stage 3b (GFR 30-44) Qualified Code(s): N18.32 - Chronic kidney disease, stage 3b Status: Acute Plan CKD3 s/p renal transplant on immunosuppression. renal function remains at baseline patient is currently taking 2mg everolimus in the morning and 1mg everolimus in the evening. Will check levels in the a.m. In addition, mycophenolate 540mg PO BID. Recommend avoiding nephrotoxins continue supportive care Will continue to monitor while inpatient Discussed with Dr Azevedo. Procedures Date of Service Date of Service: 02/14/25
--- NOTE | 2025-02-14 15:12 | HO.WOUND ---
Wound Consult: Initial 54yr old?male admitted to [facility] on 02/09/25 - See progress notes and H&P for detailed history.? Wound consult placed for Right Plantar foot wound POA.? Patient agreeable to assessment and photo documentation.? Right Plantar Foot Patient reports he was following up from PCP referral for MRI with results concerning for osteo and abscess. Etiology: ?Diabtetic Wound ?Present on Admission Measurements: 0.6cm x 0.5cm x 0.5cm with undermining noted max depth at 2 o'clock 2cm Wound Bed: red pink tissue Drainage / Odor: serosang scant - no odor noted Edges: ? callused and unattached Deanne wound: ? dry thickened tissue No Induration, Fluctuance or Warmth noted Pain: denies - reports neuropathy Goals of Treatment: ? Defer to provider for abscess assessment and treatment and osteo treatment - Topical recommendation with Durafiber for moisture management Recommendations: Provide adequate and supplemental nutrition.? When applicable maintain blood glucose levels per Providers order. Right Foot - Limit standing for prolonged period of time and walking. Cleanse and irrigate with ns, pat dry. Apply skin prep to wound edges. Lightly pack with Durafiber AG, Cover with foam dressing. Change every other day and PRN. Recommend considering follow up outpt with Wound clinic. Re-consult wound care Nurse for wound deterioration or wound changes.
[2025-02-14 15:23] VITALS: BP 111/64; PULSE 67; RESP 16; TEMP 36.4; O2SAT 94
[2025-02-14 16:24] LABS: Glucose, Whole Blood 214 mg/dL (60-115)
[2025-02-14 20:13] LABS: Glucose, Whole Blood 185 mg/dL (60-115)
[2025-02-14] MEDS: Insulin Glargine,Hum.rec.anlog 100 UNIT/ML 10 ML VIAL 28 UNIT SUBCUT (20:19)
[2025-02-14 23:15] VITALS: BP 149/81; PULSE 63; RESP 18; TEMP 36.7; O2SAT 99
[2025-02-15 06:54] LABS: Creatinine Clr Calc Pharmacy 54.7; Estimated Glomerular Filt Rate 40
[2025-02-15 07:38] VITALS: BP 130/76; PULSE 75; RESP 20; TEMP 36.7; O2SAT 95
[2025-02-15 07:59] LABS: Glucose, Whole Blood 125 mg/dL (60-115)
--- NOTE | 2025-02-15 09:16 | P.DS_ITS ---
DS: Providers Provider Date of Service: 02/15/25 Date of admission: 02/10/25 17:34 Date of discharge: 02/15/25 Primary care physician: Geovanni Pink MD Consults: 02/10/25 17:46 Consult to General Surgery Routine Consulting Provider: [facility] Reason for consultation: right foot osteomyelitis Consult to Infectious Diseases Routine Consulting Provider: [facility] Reason for consultation: right foot osteomyelitis 02/11/25 13:51 Consult to Wound Care Routine Reason for consultation: diabetic ulcer to Right foot DS: Diagnosis Discharge Diagnosis (1) Renal transplant recipient: Status: Acute (2) CKD (chronic kidney disease): Status: Acute DS: Summary Hospital Course Hospital Course: History and physical as per admitting provider. This is a 54-year-old male with pertinent history of peripheral arterial disease status post right 1st and 4th toe amputations, chronic kidney disease status post renal transplant on immunosuppressive therapy, insulin-dependent type 1 diabetes mellitus, history of testicular cancer stage III, hypertension, paroxysmal atrial fibrillation on anticoagulation who was sent to the emergency department for abnormal MRI. Patient states he has had a wound to his right foot that 1st appeared 3 months ago. Patient follows up with Podiatry outpatient for it. Patient had an x-ray done outpatient few weeks ago which was apparently normal. He has prophylactically completed a course of doxycycline. Outpatient MRI was ordered by Podiatry and patient was asked to come to the ER for further management. States he does have occasional drainage when he walks on his right foot and bears weight on it. No fever, chills, chest pain, palpitations, shortness of breath, abdominal pain, changes in urinary or bowel habits. In the emergency department, patient was given IV vancomycin and IV cefepime. Outpatient MRI with acute osteomyelitis of the proximal phalanx and distal phalanx remnant of the great toe. Surrounding cellulitis and great toe abscess seen Acute right foot osteomyelitis. Acute on chronic. Clean wound, no drainage or odor. Outpatient MRI with diffuse enhancement of proximal phalanx and distal phalanx remnant of great toe consistent with acute osteomyelitis. Treated with vancomycin. Discussed with Infectious Disease, recommendation for 6 weeks of IV daptomycin with weekly CK and creatinine check. Last day 03/29/2025. Alston catheter placed. [facility] for dressing changes and wound care. CKD stage 3b status post left renal transplant. Continue mycophenolate and everolimus. Paroxysmal atrial fibrillation. On Eliquis Mixed hyperlipidemia. 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 Continue calcifediol Insulin-dependent diabetes mellitus type 1. Continue home medications Hypertension. Continue home antihypertensives Time Attestation Discharge Coordination Time (in mins): 45 Quality: Safe Use of Opioids Does Pt have an Active Cancer Diagnosis on the Problem List?: No Quality: Stroke Does the patient have a stroke diagnosis?: No Physical Exam 2 Exam: Exam: Appearing in no acute distress head is normocephalic atraumatic eyes pupils are PERRLA sclera is anicteric mouth throat mucous membranes are intact and moist neck is supple no lymphadenopathy, no JVD noted lung sounds are clear to auscultation heart regular rate rhythm, clear S1, S2 positive bowel sounds, abdomen is soft, nontender neuro patient is alert x3, no focal deficits Vital Signs: Vital Signs: Last Vital Signs Temp 98.1 F 02/15/25 07:38 Pulse 75 02/15/25 07:38 Resp 20 02/15/25 07:38 BP 130/76 02/15/25 07:38 Pulse Ox 95 02/15/25 07:38 O2 Del Method Room Air 02/15/25 07:38 BMI result Body Mass Index 31.8 DS: Data Data Completed and Pending Completed studies during hospitalization [Text1]: Procedures Detachment at Left 3rd Toe, Mid, Open Approach (01/16/23) Detachment at Right 4th Toe, Complete, Open Approach (10/06/22) Fluoroscopy of Aorta and Bilateral Lower Extremity Arteries (10/06/22) Insertion of Infusion Device into Superior Vena Cava, Percutaneous Approach (08/05/23) Insertion of Tunneled Vascular Access Device into Chest Subcutaneous Tissue and Fascia, Percutaneous Approach (08/05/23) Plain Radiography of Abdominal Aorta using Low Osmolar Contrast (08/05/23) Plain Radiography of Aorta and Bilateral Lower Extremity Arteries using Low Osmolar Contrast (08/05/23) Ultrasonography of Superior Vena Cava, Guidance (08/05/23) Labs on day of discharge: Laboratory Results - last 24 hr 02/14/25 02/14/25 02/14/25 11:28 16:18 16:21 Creatinine Estim Creat Clear Calc Estimated GFR POC Glucose 187 H 214 H Random Vancomycin 14.2 L 02/14/25 02/15/25 02/15/25 20:10 06:16 07:41 Creatinine 1.80 H Estim Creat Clear Calc 54.7 Estimated GFR 40 POC Glucose 185 H 125 H Random Vancomycin Preliminary micro results at discharge 02/10/25 16:59 Blood Culture - Preliminary Blood - Venous No growth after 48 hours. 02/10/25 16:40 Blood Culture - Preliminary Blood - Venous No growth after 48 hours. Discharge Plan Discharge Anticipated Discharge Date/Time: 02/15/25 09:13 Patient Disposition: Home Health Service Discharge Diagnosis: Osteomyelitis Referrals: Jose LAWRENCE [Outside] - 1 Day Referral Note: Jose LAWRENCE will call you to schedule home nursing visits Geovanni Pink MD [Primary Care Provider, Internal Medicine] - 1 Week Discharge Medications: Continued apixaban 5 mg tablet 5 mg PO BID 90 Days Qty: 180 5RF everolimus (immunosuppressive) 1 mg tablet 2 mg PO BID 90 Days Qty: 360 3RF (DME) pen needle, diabetic 31 gauge x 3/16 needle See Rx Instructions .ROUTE .COMPLEX Qty: 360 11RF Dose Instruction: USE ONE FOUR TIMES A DAY Rx Instructions: USE ONE FOUR TIMES A DAY rosuvastatin 10 mg tablet 10 mg PO BEDTIME Qty: 90 0RF insulin aspart U-100 [Novolog FlexPen U-100 Insulin] 100 unit/mL (3 mL) insulin pen 4 unit subcut TIDAC insulin glargine [Lantus Solostar U-100 Insulin] 100 unit/mL (3 mL) insulin pen 28 unit SUBCUT BEDTIME (DME) diabetic supplies, miscellan. Misc See Rx Instructions .Route Qty: 1 1RF Rx Instructions: DIABETIC SHOES (DME) lancets [FreeStyle Lancets] 28 gauge misc See Rx Instructions topical TID Qty: 100 Rx Instructions: As directed dapagliflozin propanediol 10 mg tablet 10 mg PO QAM 90 Days Qty: 90 2RF amlodipine 10 mg tablet 10 mg PO DAILY 90 Days Qty: 90 4RF Rayaldee 30 mcg capsule,extended release 24 hr 30 mcg PO BEDTIME 90 Days Qty: 90 4RF mycophenolate sodium 180 mg tablet,delayed release (DR/EC) 540 mg PO BID 90 Days Qty: 540 4RF Discontinued doxycycline monohydrate 100 mg capsule 100 mg PO BID Discharge Orders: Discharge Order (Routine); Ordered 02/15/25 Ordered By: Sasha Chahal Diet: Advance to usual diet Activity on Discharge: As tolerated Stand Alone Forms: Patient Portal Discharge page Print Language: Montserratian Activity Restrictions/Additional Instructions: Topical Wound Care Recommendations: Right Foot - Limit standing for prolonged period of time and walking. Cleanse and irrigate with ns, pat dry. Apply skin prep to wound edges. Lightly pack with Durafiber AG, Cover with foam dressing. Change every other day and PRN. Recommend follow up out patient Wound Clinic at [address] [place] [address] and to call for an appointment at time of discharge. [phone].? Care Plan Goals: Daptomycin for 6 weeks, end date 03/29/2025 Check CK and creatinine weekly Health Concerns: Osteomyelitis Plan of Treatment: Follow up with primary care provider as needed Take all medications as prescribed Assessment: See discharge summary
[2025-02-15] MEDS: 0.9 % Sodium Chloride Flush 3 ML SYRINGE IVFLUSH (10:39)
[2025-02-15] MEDS: EVEROLIMUS 1 MG 2 EACH PO (10:39)
--- NOTE | 2025-02-15 11:41 | MHC.CM.PN ---
Addendum entered by Kecia Bonilla RN 02/15/25 16:26: IR unable to place alston. Patient has midline in place. [facility] aware and can arrange for new line if/when needed. 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 Patient will dc today. Original Note: Patient medically cleared for dc home w/ [facility] and [facility] for IV abx and fci. Alston scheduled for 2pm. [facility] orders and teach complete. Patient comfortable with plan and will arrange private transport home for this evening after alston placement.
--- NOTE | 2025-02-15 11:44 | P.F2F_ITS ---
Service Date Service Date: 02/15/25 Encounter Date of encounter: 02/15/25 Reasons for Services Signs and symptoms assessed: Osteomyelitis Leach catheter Diabetic foot wound Provide adequate and supplemental nutrition.? When applicable maintain blood glucose levels per Providers order. Right Foot - Limit standing for prolonged period of time and walking. Cleanse and irrigate with ns, pat dry. Apply skin prep to wound edges. Lightly pack with Durafiber AG, Cover with foam dressing. Change every other day and PRN. Recommend considering follow up outpt with Wound clinic. Reason for long-term: wound care, administration of IV, SQ, or IM injection (leach dressing changes as per protocol ) and other (weekly labs ) Homebound: Leaving the home is medically contraindicated at this time without the asist of a device and/or another person due th the listed conditions above and below. Reason homebound: weakness related to hospital stay Certification: Based on the above findings, I certify that this patient is confined to the home and needs intermittent long-term care, physical therapy and/or speech therapy, or continues to need occupational therapy. The patient is under my care, and I have initiated the establishment of the plan of care. The patient will be followed by a physician who will periodically review the plan of care. Time Spent With Patient Time: Total time managing care of this patient today ____ minutes.
[2025-02-15 14:01] VITALS: BP 139/70; PULSE 74; RESP 15
[2025-02-15 14:15] VITALS: RESP 16
[2025-02-15 14:17] VITALS: RESP 16
--- NOTE | 2025-02-15 15:49 | HO.PM.IMPN ---
Subjective Subjective Date of Service: 02/15/25 Review of Systems Follow up osteomyelitis, diabetic foot wound Doing well today, no pain Physical Exam Exam: Exam: Appearing in no acute distress lung sounds are clear to auscultation heart regular rate rhythm, clear S1, S2 positive bowel sounds, abdomen is soft, nontender neuro patient is alert x3, no focal deficits Vital Signs: Vital Signs: Last Vital Signs Temp 98.1 F 02/15/25 07:38 Pulse 74 02/15/25 14:01 Resp 16 02/15/25 14:17 BP 139/70 02/15/25 14:01 Pulse Ox 95 02/15/25 07:38 O2 Del Method Room Air 02/15/25 14:01 BMI result Body Mass Index 31.8 Objective Data Active Medications Acetaminophen (Acetaminophen 325 Mg Tablet) 650 mg PO Q6H PRN PRN Reason: Pain, Mild 1-3,fever,headache Amlodipine Besylate (Amlodipine Besylate 10 Mg Tablet) 10 mg PO DAILY [facility]; Protocol Last Admin: 02/15/25 10:38 Dose: 10 mg Documented By: CINDY Apixaban (Apixaban 5 Mg Tablet) 5 mg PO BID VERNA On Hold: 02/14/25 08:57 Last Admin: 02/14/25 08:26 Dose: Not Given Documented By: RACHELE Non-Admin Reason: hold for procedure Atorvastatin Calcium (Atorvastatin Calcium 40 Mg Tablet) 40 mg PO BEDTIME [facility] Last Admin: 02/14/25 20:17 Dose: 40 mg Documented By: ESSENCE Calcium Carbonate (Calcium Carbonate 750 Mg Tab.Chew) 750 mg PO Q4H PRN PRN Reason: Heartburn Dextrose (Dextrose 50 % 25 Gm/50 Ml Syringe) 25 gm IVPUSH Q15M PRN; Protocol PRN Reason: per Hypoglycemia Standing Ord. Empagliflozin (Empagliflozin 10 Mg Tablet) 10 mg PO DAILY [facility] Last Admin: 02/15/25 10:39 Dose: Not Given Documented By: CINDY Non-Admin Reason: NPO Glucose (Glucose Gel 15 Gm Gel..Gram.) 15 gm PO Q15M PRN; Protocol PRN Reason: per Hypoglycemia Standing Ord. Daptomycin 500 mg/ Sodium (Chloride) 60 mls @ 120 mls/hr IV Q24H [facility] Last Infusion: 02/15/25 13:03 Dose: Infused Documented By: CINDY Insulin Glargine (Insulin Glargine,Hum.Rec.Anlog 100 Unit/Ml 10 Ml Vial) 28 unit SUBCUT BEDTIME [facility] Last Admin: 02/14/25 20:19 Dose: 28 unit Documented By: ESSENCE Insulin Human Lispro (Insulin Lispro 100 Unit/Ml 3 Ml Vial) 0 unit SUBCUT QIDACHS [facility]; Protocol Last Admin: 02/15/25 12:21 Dose: Not Given Documented By: CINDY Non-Admin Reason: NPO Magnesium Hydroxide (Milk Of Magnesia 30 Ml Oral.Susp) 30 ml PO DAILY PRN PRN Reason: Constipation Melatonin (Melatonin 3 Mg Tablet) 6 mg PO BEDTIME PRN PRN Reason: Insomnia Mycophenolate Sodium (Mycophenolate Sodium 180 Mg Tablet.) 540 mg PO BID [facility] Last Admin: 02/15/25 10:37 Dose: 540 mg Documented By: CINDY Pt Own (Everolimus ( Immunosuppressive) 1 Mg Tablet) 2 mg PO BID [facility] Last Admin: 02/15/25 10:39 Dose: 2 mg Documented By: CINDY Ondansetron HCl (Ondansetron Hcl 4 Mg/2 Ml Vial) 4 mg IVPUSH Q8H PRN PRN Reason: Nausea and Vomiting Pharmacy Consult (Consult Rx Vancomycin Dosing) 1 each MISCELLANE DAILY PRN PRN Reason: Consult order Sodium Chloride (0.9 % Sodium Chloride Flush 3 Ml Syringe) 3 ml IVFLUSH QSHIFT [facility] Last Admin: 02/15/25 10:39 Dose: 3 ml Documented By: CINDY Labs 02/11/25 06:20 02/15/25 06:16 Labs: Laboratory Results - last 24 hr 02/14/25 02/14/25 02/14/25 16:18 16:21 20:10 Estim Creat Clear Calc Estimated GFR POC Glucose 214 H 185 H Random Vancomycin 14.2 L 02/15/25 02/15/25 06:16 07:41 Estim Creat Clear Calc 54.7 Estimated GFR 40 POC Glucose 125 H Random Vancomycin Assessment and Plan (1) Osteomyelitis: Status: Acute (2) CKD (chronic kidney disease) stage 3, GFR 30-59 ml/min: Status: Inactive (3) Osteomyelitis: Status: Acute Plan 54-year-old male with pertinent history of peripheral arterial disease status post right 1st and 4th toe amputations, chronic kidney disease status post renal transplant on immunosuppressive therapy, insulin-dependent type 1 diabetes mellitus, history of testicular cancer stage III, hypertension, paroxysmal atrial fibrillation on anticoagulation who was sent to the emergency department for abnormal MRI. Acute right foot osteomyelitis. wound is clean, no drainage or odor Outpatient MRI with diffuse enhancement of proximal phalanx and distal phalanx remnant of great toe consistent with acute osteomyelitis. continue vancomcyin Consulted Infectious Disease> 6 weeks of daptomycin with wkly ck and creat Plan for midline today CKD stage 3b status post left renal transplant. Continue mycophenolate and everolimus. Creatinine at baseline. Paroxysmal atrial fibrillation. On Eliquis, hold for [place] tomorrow Rate controlled in the ER Mixed hyperlipidemia. 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 Continue calcifediol Insulin-dependent diabetes mellitus type 1. ss, ada diet lantus Hypertension Continue home antihypertensives DVT prophylaxis: Eliquis, hold for [place] tomorrow Full code Quality Stroke Does the patient have a stroke diagnosis?: No VTE Prior VTE?: No VTE Risk Level:: Medical - moderate - high VTE Device Contraindication: Treatment Not Indicated VTE Drug Contraindication: N/A - Med Ordered
[2025-02-15 16:00] VITALS: BP 147/79; PULSE 84; RESP 18; TEMP 36.6; O2SAT 99
--- NOTE | 2025-02-15 16:09 | HO.MIDLINE ---
Midline Insertion MIDLINE INSERTION Diagnosis: Osteomyelitis Indication: ABT Pertinent Labs: Reviewed Technique: Using sterile technique including cap and mask, glove and drape, the right arm was prepped and draped in the usual sterile fashion of full barrier technique with CHG. Using ultrasound guidance, right basilic vein access was obtained . 4fr single lumen NON PASV POWERMIDLINE trimmed to 11cm was positioned. The procedure was performed in rm 272. Ultrasound was used to document vein patency and for needle entry. A formal ultrasound picture was recorded. Vascular Entry Level Civil Engineer has released the line for use and it is currently dressed with a StatLock, Tegaderm, and CHG disc. Verification has been performed for blood return and line patency. Arm Circumference: 30cm Equipment: [employer] POWERMIDLINE Catheter Type: 4fr single lumen nonPASV Lot #: [id number]
--- NOTE | 2025-02-15 16:57 | PC.NURSE ---
Pt returned from IR with midline to RUE. Mesh covering placed over IV midline. IV to left arm removed. Pt denied pain at this time. Reviewed dc instructions with pt. Verbalized understanding
[2025-02-16 13:02] LABS: Tacrolimus Prograf <1.0 mcg/L
== END 2025-02-15 16:59 | disposition home health service (06) | DRG 638 ==
LOC: HO.ED 16:44 → HO.EDOVER 17:38 → HO.S3 02-11 11:50
PROVIDERS: Nurse Practitioner Family; Physician Assistant; Admitting Provider Student in an Organized Health Care Education/Training Program; Emergency Provider Emergency Medicine; PCP Family Medicine; Visit Provider Nurse Practitioner Acute Care
DX: E10.69 Type 1 diabetes mellitus with other specified complication (principal); M86.171 Other acute osteomyelitis, right ankle and foot; Z94.0 Kidney transplant status; N25.81 Secondary hyperparathyroidism of renal origin; N18.32 Chronic kidney disease, stage 3b; E10.621 Type 1 diabetes mellitus with foot ulcer; L97.519 Non-pressure chronic ulcer of other part of right foot with unspecified severity; E78.2 Mixed hyperlipidemia; I12.9 Hypertensive chronic kidney disease with stage 1 through stage 4 chronic kidney disease, or unspecified chronic kidney disease; I48.0 Paroxysmal atrial fibrillation; E10.22 Type 1 diabetes mellitus with diabetic chronic kidney disease; Z85.47 Personal history of malignant neoplasm of testis; Z79.01 Long term (current) use of anticoagulants; Z79.69 Long term (current) use of other immunomodulators and immunosuppressants; Z79.899 Other long term (current) drug therapy
CPT/HCPCS: 36415; 36573; 80048; 80053; 80197; 80202; 82565; 82947; 83036; 83605; 85025; 85652; 86140; 87040; 99285; C1751; J0692; J0878; J1644; J2003; J2543; J3010; J3373; J3374

== ENCOUNTER → 2025-02-10 17:34 | Outpatient (BNV) | payer OTHER, SELFPAY | PROVIDERS: Admitting Provider Student in an Organized Health Care Education/Training Program; Emergency Provider Emergency Medicine; PCP Family Medicine; Visit Provider Surgery | DX: M86.9 Osteomyelitis, unspecified (principal) | CPT/HCPCS: 99222 ==

== ENCOUNTER → 2025-02-10 17:34 | Outpatient (BNV) | payer OTHER, SELFPAY | PROVIDERS: Admitting Provider Student in an Organized Health Care Education/Training Program; Emergency Provider Emergency Medicine; PCP Family Medicine; Visit Provider Nurse Practitioner Family | DX: Z94.0 Kidney transplant status (principal); N18.32 Chronic kidney disease, stage 3b | CPT/HCPCS: 99221 ==

== ENCOUNTER → 2025-02-10 17:34 | Outpatient (BNV) | payer OTHER, SELFPAY | PROVIDERS: Admitting Provider Student in an Organized Health Care Education/Training Program; Emergency Provider Emergency Medicine; PCP Family Medicine; Visit Provider Internal Medicine | DX: M86.9 Osteomyelitis, unspecified (principal); I73.9 Peripheral vascular disease, unspecified | CPT/HCPCS: 99222 ==

== ENCOUNTER → 2025-02-10 17:34 | Outpatient (BNV) | payer OTHER, SELFPAY | PROVIDERS: Admitting Provider Student in an Organized Health Care Education/Training Program; Emergency Provider Emergency Medicine; PCP Family Medicine; Visit Provider Student in an Organized Health Care Education/Training Program | DX: M86.171 Other acute osteomyelitis, right ankle and foot (principal); N18.32 Chronic kidney disease, stage 3b; M86.9 Osteomyelitis, unspecified | CPT/HCPCS: 99222; 99232; 99239; 99499; G0180 ==

== ENCOUNTER 2025-02-21 10:51 | Outpatient (REF) | payer OTHER, SELFPAY ==
--- OUTSIDE RECORDS SUMMARY | 2024-12-30 05:00 | XMS_ITS ---
Author Organization [facility] Address [address] [place] [address] Care Team Providers Care Gun Striper Name Role Phone Geovanni Pink MD Primary Care Provider Mary Canela [phone] Encounters Encounter Location Date Provider Diagnosis [address] [address] 12/30/2024 Mary Rea Plan Of Treatment Next Appt Details Provider Name:Mary vaughan, 02/24/2025 10:30:00 AM, [address] [place] [address], [address], Progress Notes * Raheem CASTRODOB:1970 ( 54 yo M)Acc No.[id number]:12/30/2024 Progress Note Patient: Raheem HUITRON Provider: Aquilino Rea DPM :1970 A ge:54 Y S ex:Male Date:12/30/2024 Address:[address] [place] [address], [facility] [place] Pcp:Geovanni Pink MD Subjective: * Chief Complaints: [...] 12/30/2024 Generated for Deedee huerta/Mike/Ric on: 0 02/21/2025 01:05 PM EDT
[2025-02-21 10:55] LABS: MANUAL DIFF FLAG NO
[2025-02-21 11:05] LABS: Hematocrit 46.7 % (42.0-52.0); Hemoglobin 15.3 g/dl (14.0-18.0); Imm Gran Abs Auto 0.04 X10*3/uL (0.00-0.03); Imm Gran Pct Auto 0.6 % (0.0-0.4); Lymphocytes Absolute Auto 1.6 X10*3/uL (1.2-4.9); Mean Corpuscular HGB Conc 32.8 g/dl (31.0-36.0); Mean Corpuscular Hemoglobin 27.7 pg (27.0-33.0); Mean Corpuscular Volume 84.6 fL (80.0-98.0); NRBC Abs Auto 0.000 X10*3/uL (0.0-0.012); NRBC Pct Auto 0.0 /100WBC (0.0-0.2); Platelet Count 159 X10*3/uL (160-400); Red Blood Count 5.52 X10*6/uL (4.60-5.80); White Blood Count 6.3 X10*3/uL (4.8-10.8)
[2025-02-21 12:13] LABS: Alanine Aminotransferase 17 U/L (0-40); Albumin Level 4.2 g/dL (3.5-5.0); Alkaline Phosphatase 123 U/L (39-117); Anion Gap 14 (12-20); Aspartate Amino Transferase 23 U/L (5-37); Blood Urea Nitrogen 19 mg/dL (9-16); Calcium 8.9 mg/dL (8.4-10.2); Carbon Dioxide 20 mmol/L (22-29); Chloride 109 mmol/L (96-108); Estimated Glomerular Filt Rate 45; Potassium 3.3 mmol/L (3.3-5.1); Sodium 140 mmol/L (135-145); Total Protein 7.6 g/dL (6.5-8.0)
--- OUTSIDE RECORDS SUMMARY | 2025-02-21 13:06 | XMS_ITS | Clinical Summary ---
Author Organization [facility] Address [address] [facility] [address] [place] [address] Phone Care Team Providers Care Manager Of Training And Development Name Role Phone Geovanni Pink MD Primary Care Provider [phone] Allergies No known active allergies Medications amLODIPine [...] ankle and/or foot 11/20/2021 12/11/2021 Atherosclerosis of [place] ar teries of the extremities 11/20/2021 12/11/2021 [...] PM EDT Performed at: 01 - [facility] [address] [id number] Science Intern: Debora Brian MD, Phone: [phone] Skyler Banda MD LAB BLOOD ORDERABLES Final Resu lt [facility] from Last 3 Months or Most Recently Relevant to Health Maintenance Insurance [facility] ([id number]) [place] [address] Care Teams Manager Of Training And Development Relationship Specialty Start Date End Date Geovanni Pink MD [address] [place] [address] PCP - General Family Medicine 04/23/23
--- OUTSIDE RECORDS SUMMARY | 2025-02-21 13:06 | XMS_ITS | Patient Health Record ---
Author Organization [facility] Address [address] [facility] [place] [address] Care Team Providers Care Modeling Agent Name Role Phone Geovanni Pink MD Primary Care Provider Mary Canela Unavailable [phone] Allergies No Known Allergies Results Component Value [...] Polyneuropathy due to diabetes mellitus type I (109539213) Type 1 diabetes mellitus with diabetic polyneuropathy (E10.42) Active confirmed Problem Bilateral atherosclerosis of arteries of lower limbs (0300487600897546 7) Atherosclerosis of artery of both lower extremities (I70.203) Active confirmed Problem Acute osteomyelitis of right foot (7295140075940375 ) Acute osteomyelitis of right foot (M86.171) Active confirmed Possible Vital Signs Blood pressure diastolic 60 mm Hg 01/20/2025 Height 5ft9in in 01/20/2025 Blood pressure systolic 128 mm Hg 01/20/2025 Weight 212 lbs 01/20/2025 BMI 31.3 kg/m2 01/20/2025 Encounters Encounter Location Date Provider Diagnosis [facility] [address] [place] [address] 04/14/2024 Mary Grossmanclement Type 2 diabetes mellitus with diabetic polyneuropathy E11.42 ; Contracture of toe of left foot M20.5X2 ; Tinea unguium B35.1 and Abscess of toe, left L02.[address] [address] 05/04/2024 Mary Grossmanclement Type 2 diabetes mellitus with diabetic polyneuropathy E11.42 ; Contracture of toe of left foot M20.5X2 ; Tinea unguium B35.1 and Neuropathic ulcer of left foot, limited to breakdown of skin L97.[address] [address] 07/15/2024 Mary Rea Type 2 diabetes mellitus with diabetic polyneuropathy E11.42 ; Contracture of toe of left foot M20.5X2 and Tinea unguium B35.[address] [address] 08/26/2024 Mary Rea Neurotrophic ulcer o f left foot limited to breakdown of skin L97.521 ; Xerosis of skin L85.3 and Type 2 diabetes mellitus with diabetic polyneuropathy E11.[address] [address] 10/12/2024 Mary Grossmana Type 1 diabetes mellitus with diabetic polyneuropathy E10.42 ; Atherosclerosis of artery of both lower extremities I70.203 ; Tinea unguium B35.1 and Neurotrophic ulcer of left foot limited to breakdown of skin L97.[address] [address] 12/06/2024 Mary Rea Neuropathic ulcer of left foot with fat layer exposed L97.522 ; Cellulitis of toe of right foot L03.031 ; Type 2 diabetes mellitus with diabetic polyneuropathy E11.42 ; Abscess of right foot L02.611 and Other hammer toe(s) (acquired), right foot M20.[address] [address] 12/13/2024 Mary Rea Type 2 diabetes mellitus with diabetic polyneuropathy E11.42 ; Cellulitis of toe of right foot L03.031 and Neuropathic ulcer of right foot with fat layer exposed L97.[address] [address] 01/04/2025 Mary Rea Cellulitis of toe of [...] and Tinea pedis of both feet B35.[address] [address] 01/20/2025 Mary Rea Neuropathic ulcer of right foot with fat layer exposed L97.512 ; Acute osteomyelitis of right foot M86.171 ; Type 1 diabetes mellitus with diabetic polyneuropathy E10.42 and Atherosclerosis of artery of both lower extremities I70.203 [facility] [address] [place] [address] 03/07/2024 Mary Perica [facility] [address] [address] 12/05/2024 Mary Perica [facility] [address] [address] 12/06/2024 Mary Perica [facility] [address] [address] 01/04/2025 Mary Perica [facility] [address] [address] 01/04/2025 Mary Perica [facility] [address] [address] 01/20/2025 Mary Perica [facility] [address] [address] 01/20/2025 Mary Perica [facility] [address] [address] 01/20/2025 Mary Grossmana Assessments Encounter Date Diagnosis (ICD Code) Assessment [...] pedis of both feet (ICD-10 - B35.3) 05/04/2024 Other 12/06/2024 Other Plan Of Treatment [...] X ray : Foot, right 3V 01/20/2025 59372-AVPQYDU NAIL, 6 OR MORE 09/16/2021 95433-XOXZCKW SKIN/TISSUE 10/25/2021 57352-ANUTPAC SKIN/TISSUE 12/04/2022 12831-BENVRND SKIN/TISSUE 12/11/2022 83882-FZIVKSQ SKIN/TISSUE 09/16/2021 89915-ZOWPMYK SKIN/TISSUE 2020 32085-FXVOBNK SKIN/TISSUE 02/11/2024 37202-HVGM SKIN LESIONS, OVER 4 09/17/19 22 87827-BBGT SKIN LESIONS, OVER 4 11/28/19 23 05013-AIXPCWEU OF HEMATOMA/FLUID 023 Next Appt Details Provider Name:Maryrosy vaughan, 02/24/2025 10:30:00 AM, [address] [place], [address], Insurance Providers Payer Name Payer Address Payer Phone Subscriber Number Group Number Insured Name Patient Relationship to Insured Coverage Start Date Coverage End Date [facility] [employer] Claims [address] [place] [phone] [id number] Raheem Castro Self - patient is the insured Medical (General) History Medical History History ICD Code Kidney disease type II diabetes Surgical History Surgery Date(Month/Year) kidney transplant 10/2016 L leg surgery 09/09/21 amputation, toe 01/2023 amputation , toe 04/2023 Toe amputation 10/14/23 hammertoe, right foot 02/2024 Hospitalization History Reason Date(Month/Year) [facility]- fever- Infection in bone of toe [facility]- Cut of piece of toe 04/2023 [facility] - Cut of piece of toe 01/2023
--- OUTSIDE RECORDS SUMMARY | 2025-02-21 13:06 | XMS_ITS | Clinical Summary ---
Author Organization [facility] Address [address] [place] [address] Care Team Providers Care Gold Tooler Name Role Phone Lianne Manuel MD Primary [...] MGD MEDICARE OUT OF NETWORK [place] FARIA [id number] * Guarantor: [employer] Account Type Relation to Patient Date of Phone Billing Address Client/Submitter Employer Care Teams Gold Tooler Relationship Specialty Start Date End Date Lianne Manuel MD [address] [place] [address] PCP - General Internal Medicine 07/10/22
--- OUTSIDE RECORDS SUMMARY | 2025-02-21 13:06 | XMS_ITS | Clinical Summary ---
Author Organization Patient Business Ser [facility] Address [address] [place] [address] Care Team Providers Care Supervisor Gate Services Name Role Phone Linane Manuel MD Primary Care Provider Social History [...] age to complete this topic Care Teams Supervisor Gate Services Relationship Specialty Start Date End Date Lianne Manuel MD [address] [place] [address] PCP - General Internal Medicine 01/30/22
== END 2025-02-21 10:52 | disposition home or self-care (01) ==
LOC: HO.HVNA 10:51
PROVIDERS: Visit Provider Internal Medicine
DX: M86.171 Other acute osteomyelitis, right ankle and foot (principal); E10.69 Type 1 diabetes mellitus with other specified complication
CPT/HCPCS: 36415; 80053; 82550; 85025; 86140

== ENCOUNTER 2025-02-28 11:35 | Outpatient (REF) | payer OTHER, SELFPAY ==
--- OUTSIDE RECORDS SUMMARY | 2024-12-30 05:00 | XMS_ITS ---
Author Organization [facility] Address [address] [place] [address] Care Team Providers Care Bullet Swaging Machine Operator Name Role Phone Geovanni Pink MD Primary Care Provider Mary Canela [phone] Encounters Encounter Location Date Provider Diagnosis [facility] [address] [place] [address] 12/30/2024 Mary Rea Plan Of Treatment No Information Progress Notes * Raheem CASTRODOB:1970 ( 54 yo M)Acc No.[id number]:12/30/2024 Progress Note Patient: Raheem HUITRON Provider: Aquilino Rea DPM :1970 A ge:54 Y S ex:Male Date:12/30/2024 Address:[address] [place] [address], [facility] Pcp:Geovanni Pink MD Subjective: * Chief Complaints: * * Medical History: Objective: * Vitals: Assessment: Plan: * Treatment: * Images: * The named appointment provid er may or may not be the originator of this progress note, and it is not deemed complete until electronically signed by the appointment provider. Sign off status: Pending * Provider: Aquilino Rea DPM Date: 12/30/2024 Generated for Printi ng/Faxing/eTransmitting on: 0 02/28/2025 03:46 PM EDT
--- OUTSIDE RECORDS SUMMARY | 2025-02-24 06:30 | XMS_ITS ---
Author Organization [facility] Address [address] [place] [address] Care Team Providers Care Renovator Machine Operator Name Role Phone Geovanni Pink MD Primary Care Provider Mary Canela [phone] Encounters Encounter Location Date Provider Diagnosis [facility] [address] [place] [address] 02/24/2025 Mary Rea Plan Of Treatment No Information Progress Notes * Raheem CASTRODOB:1970 ( 54 yo M)Acc No.[id number]:02/24/2025 Progress Notes Patient: Raheem HUITRON Provider: Aquilino Rea DPM :1970 A ge:54 Y S ex:Male Date:02/24/2025 Address:[address] [place] [address], [facility] Pcp:Geovanni Pink MD Subjective: * Chief Complaints: [...] Date: 02/24/2025 Generated for Printi ng/Faxing/eTransmitting on: 02/28/2025 03:46 PM EDT
[2025-02-28 11:39] LABS: MANUAL DIFF FLAG NO
[2025-02-28 11:57] LABS: Hematocrit 48.2 % (42.0-52.0); Hemoglobin 15.8 g/dl (14.0-18.0); Imm Gran Abs Auto 0.07 X10*3/uL (0.00-0.03); Imm Gran Pct Auto 0.9 % (0.0-0.4); Lymphocytes Absolute Auto 2.0 X10*3/uL (1.2-4.9); Mean Corpuscular HGB Conc 32.8 g/dl (31.0-36.0); Mean Corpuscular Hemoglobin 27.7 pg (27.0-33.0); Mean Corpuscular Volume 84.6 fL (80.0-98.0); NRBC Abs Auto 0.000 X10*3/uL (0.0-0.012); NRBC Pct Auto 0.0 /100WBC (0.0-0.2); Platelet Count 190 X10*3/uL (160-400); Red Blood Count 5.70 X10*6/uL (4.60-5.80); White Blood Count 7.8 X10*3/uL (4.8-10.8)
[2025-02-28 12:47] LABS: Alanine Aminotransferase 45 U/L (0-40); Albumin Level 4.6 g/dL (3.5-5.0); Alkaline Phosphatase 136 U/L (39-117); Anion Gap 14 (12-20); Aspartate Amino Transferase 41 U/L (5-37); Blood Urea Nitrogen 16 mg/dL (9-16); Calcium 9.1 mg/dL (8.4-10.2); Carbon Dioxide 20 mmol/L (22-29); Chloride 109 mmol/L (96-108); Estimated Glomerular Filt Rate 41; Potassium 3.4 mmol/L (3.3-5.1); Sodium 140 mmol/L (135-145); Total Protein 8.2 g/dL (6.5-8.0)
--- OUTSIDE RECORDS SUMMARY | 2025-02-28 15:46 | XMS_ITS | Clinical Summary ---
Author Organization [facility] Address [address] [place] [address] Care Team Providers Care Deck Hand Name Role Phone Lianne Manuel MD Primary [...] Vaccine (1 of 2) 2021 Influenza Vaccine 01/13/2025 02/29/2016, 02/29/2016 COVID-19 Vaccine ( - season) 02/13/202501/2021, 08/25/2020 Insurance MISC MGD MEDICARE OUT OF NETWORK JAYLEN FARIA [id number] * Guarantor: [employer] Account Type Relation to Patient Date of Phone Billing Address Client/Submitter Employer Care Teams Deck Hand Relationship Specialty Start Date End Date Lianne Manuel MD [address] [place] [id number] PCP - General Internal Medicine 07/10/22
--- OUTSIDE RECORDS SUMMARY | 2025-02-28 15:46 | XMS_ITS | Clinical Summary ---
Author Organization [facility] Address [address] [facility] [address] [place] [address] Phone Care Team Providers Care Rent And Miscellaneous Remittance Clerk Name Role Phone Geovanni Pink MD Primary Care Provider [phone] Allergies No known active allergies Medications amLODIPine [...] 3 Active Eliquis 5 MG tabletIndication s:Other halfway current drug therapy Take 1 tablet (5 [...] ankle and/or foot 11/20/2021 12/11/2021 Atherosclerosis of [place]unkey ar teries of the extremities 11/20/2021 12/11/2021 [...] PM EDT Performed at: 01 - [facility] [address] [id number] Management Trainee Program Stores: Debora Brian MD, Phone: [phone] Skyler Banda MD LAB BLOOD ORDERABLES Final Resu lt [facility] from Last 3 Months or Most Recently Relevant to Health Maintenance Insurance [facility] ([id number]) [place] [address] Care Teams Rent And Miscellaneous Remittance Clerk Relationship Specialty Start Date End Date Geovanni Pink MD [address] [place] [address] PCP - General Family Medicine 04/23/23
--- OUTSIDE RECORDS SUMMARY | 2025-02-28 15:46 | XMS_ITS | Clinical Summary ---
Author Organization Patient Business Ser [facility] Address [address] [place] [address] Care Team Providers Care Therapist Respiratory Name Role Phone Lianne Manuel MD Primary Care Provider [phone] Social History Tobacco Use Types Packs/Day Years [...] age to complete this topic Care Teams Therapist Respiratory Relationship Specialty Start Date End Date Lianne Manuel MD [address] [place] [address] PCP - General Internal Medicine 01/30/22
--- OUTSIDE RECORDS SUMMARY | 2025-02-28 15:46 | XMS_ITS | Clinical Summary ---
Author Organization [facility] Address [address] [facility] [address] [place] [address] Phone Care Team Providers Care Slurry Man Name Role Phone Geovanni Pink MD Primary [...] (2 of 2 - PCV) 03/19/2017 03/19/2016 INFLUENZA VACCINE (#1) 2025 COVID-19 VACCINE ( season) 2025 03/02/2021, 02/09/2021, 09/20/2020, Additional history exists Adult [...] topic Medical Devices Not on file Insurance [facility] MEDICARE REPLACEMENT [facility] MEDICARE [facility]PLACEMENT [facility] MEDICARE [facility]PLACEMENT [facility] MEDICARE [facility]PLACEMENT [facility] MEDICARE REPLACEMENT [facility] MEDICARE REPLACEMENT Care Teams Slurry Man Relationship Specialty Start Date End Date Geovanni Pink MD [address] [place] [address] PCP - General Family Medicine 11/02/23 Additional Source Comments The information contained in this document represents components of the legal health record. It is not the complete legal health record.[facility]
--- OUTSIDE RECORDS SUMMARY | 2025-02-28 15:46 | XMS_ITS | Patient Health Record ---
Author [facility] Address [address] [place] [address] Care Team Providers Care Air Brake Mechanic Name Role Phone Geovanni Pink MD Primary Care Provider Mary Canela Unavailable [phone] Allergies No Known Allergies Results Component Value [...] Polyneuropathy due to diabetes mellitus type I (346649913) Type 1 diabetes mellitus with diabetic polyneuropathy (E10.42) Active confirmed Problem Bilateral atherosclerosis of arteries of lower limbs (3203066989419856 7) Atherosclerosis of artery of both lower extremities (I70.203) Active confirmed Problem Acute osteomyelitis of right foot (9907629089214228 ) Acute osteomyelitis of right foot (M86.171) Active confirmed Possible Vital Signs Blood pressure diastolic 60 mm Hg 01/20/2025 Height 5ft9in in 01/20/2025 Blood pressure systolic 128 mm Hg 01/20/2025 Weight 212 lbs 01/20/2025 BMI 31.3 kg/m2 01/20/2025 Encounters Encounter Location Date Provider Diagnosis [facility] [address] [place] [address] 04/14/2024 Mary Grossmanclement Type 2 diabetes mellitus with diabetic polyneuropathy E11.42 ; Contracture of toe of left foot M20.5X2 ; Tinea unguium B35.1 and Abscess of toe, left L02.[address] [address] 05/04/2024 Mary Grossmanclement Type 2 diabetes mellitus with diabetic polyneuropathy E11.42 ; Contracture of toe of left foot M20.5X2 ; Tinea unguium B35.1 and Neuropathic ulcer of left foot, limited to breakdown of skin L97.[address] [address] 07/15/2024 Mary Rea Type 2 diabetes mellitus with diabetic polyneuropathy E11.42 ; Contracture of toe of left foot M20.5X2 and Tinea unguium B35.[address] [address] 08/26/2024 Mary Rea Neurotrophic ulcer o f left foot limited to breakdown of skin L97.521 ; Xerosis of skin L85.3 and Type 2 diabetes mellitus with diabetic polyneuropathy E11.[address] [address] 10/12/2024 Mary Grossmana Type 1 diabetes mellitus with diabetic polyneuropathy E10.42 ; Atherosclerosis of artery of both lower extremities I70.203 ; Tinea unguium B35.1 and Neurotrophic ulcer of left foot limited to breakdown of skin L97.[address] [address] 12/06/2024 Mary Rea Neuropathic ulcer of left foot with fat layer exposed L97.522 ; Cellulitis of toe of right foot L03.031 ; Type 2 diabetes mellitus with diabetic polyneuropathy E11.42 ; Abscess of right foot L02.611 and Other hammer toe(s) (acquired), right foot M20.[address] [address] 12/13/2024 Mary Rea Type 2 diabetes mellitus with diabetic polyneuropathy E11.42 ; Cellulitis of toe of right foot L03.031 and Neuropathic ulcer of right foot with fat layer exposed L97.[address] [address] 01/04/2025 Mary Rea Cellulitis of toe of [...] and Tinea pedis of both feet B35.[address] [address] 01/20/2025 Mary Rea Neuropathic ulcer of right foot with fat layer exposed L97.512 ; Acute osteomyelitis of right foot M86.171 ; Type 1 diabetes mellitus with diabetic polyneuropathy E10.42 and Atherosclerosis of artery of both lower extremities I70.[address] [facility] [address] [address] 03/07/2024 Mary Perica [facility] [address] [address] 12/05/2024 Mary Perica [facility] [address] [address] 12/06/2024 Mary Perica [facility] [address] [address] 01/04/2025 Mary Perica [facility] [address] [address] 01/04/2025 Mary Perica [facility] [address] [address] 01/20/2025 Mary Perica [facility] [address] [address] 01/20/2025 Mary Perica [facility] [address] [address] 01/20/2025 Mary Perica [facility] [address] [address] 02/24/2025 Mary Perica Assessments Encounter Date Diagnosis (ICD Code) Assessment [...] of right foot (ICD-10 - M86.171) Possible 10/12/2024 Type 1 diabetes mellitus with diabetic polyneuropathy (ICD-10 - E10.42) 10/12/2024 Atherosclerosis of artery of both lower extremities (ICD-10 - I70.203) 10/12/2024 Tinea unguium (ICD-10 - B35.1) 01/20/2025 Type 1 diabetes mellitus with diabetic polyneuropathy (ICD-10 - E10.42) 12/06/2024 Cellulitis of toe of right foot (ICD-10 - L03.031) 01/04/2025 Type 1 diabetes mellitus with diabetic polyneuropathy (ICD-10 - E10.42) 12/13/2024 Neuropathic ulcer of right foot with fat layer exposed (ICD-10 - L97.512) 08/26/2024 Xerosis of skin (ICD-10 - L85.3) [...] mellitus with diabetic polyneuropathy (ICD-10 - E11.42) 01/04/2025 Atherosclerosis of artery of both lower extremities (ICD-10 - I70.203) 01/20/2025 Atherosclerosis of artery of both lower extremities (ICD-10 - I70.203) 10/12/2024 Neurotrophic ulcer of left foot limited to breakdown of skin (ICD-10 - L97.521) 01/04/2025 Tinea unguium (ICD-10 - B35.1) 12/06/2024 Abscess of right foot (ICD-10 - L02.611) Patient Educated with: WOUND CARE INSTRUCTIONS. pdf (WOUND CARE INSTRUCTIONS. pdf) 12/06/2024 Other hammer toe(s) (acquired), right foot (ICD-10 - M20.41) 01/04/2025 Hammertoe of right foot (ICD-10 - [...] X ray : Foot, right 3V 01/20/2025 01642-SYPJQXF NAIL, 6 OR MORE 09/16/2021 22886-UTLGGIH SKIN/TISSUE 10/25/2021 58075-JAXYGKJ SKIN/TISSUE 12/04/2022 03691-ZSRIVNS SKIN/TISSUE 12/11/2022 86334-MOXHCVO SKIN/TISSUE 09/16/2021 76381-OSNQNXG SKIN/TISSUE 2020 62760-YAMOYIH SKIN/TISSUE 02/11/2024 44564-DDNZ SKIN LESIONS, OVER 4 09/17/19 38022-RBCN SKIN LESIONS, OVER 4 11/28/19 23071-ZDBPYPWM OF HEMATOMA/FLUID 023 Insurance Providers Payer Name Payer Address Payer Phone Subscriber Number Group Number Insured Name Patient Relationship to Insured Coverage Start Date Coverage End Date [facility] Claims [address] [place] [id number] Raheem Castro Self - patient is the insured Medical (General) History Medical History History ICD Code Kidney disease type II diabetes Surgical History Surgery Date(Month/Year) kidney transplant 10/2016 L leg surgery 09/09/21 amputation, toe 01/2023 amputation , toe 04/2023 Toe amputation 10/14/23 hammertoe, right foot 02/2024 Hospitalization History Reason Date(Month/[place] [facility] Infection in bone of toe [facility]- Cut of piece of toe 04/2023 [facility] - Cut of piece of toe 01/2023
== END 2025-02-28 11:36 | disposition home or self-care (01) ==
LOC: HO.HVNA 11:35
PROVIDERS: Visit Provider Internal Medicine
DX: M86.171 Other acute osteomyelitis, right ankle and foot (principal)
CPT/HCPCS: 36415; 80053; 82550; 85025; 86140

== ENCOUNTER 2025-03-01 10:37 | Outpatient (AMB) | payer OTHER, SELFPAY ==
--- OUTSIDE RECORDS SUMMARY | 2024-12-30 05:00 | XMS_ITS ---
Author Organization [facility] Address [address] [place] [address] Care Team Providers Care Pilates Coordinator Name Role Phone Geovanni Pink MD Primary Care Provider Mary Canela [phone] Encounters Encounter Location Date Provider Diagnosis [facility] [address] [place] [address] 12/30/2024 Mary Rea Plan Of Treatment No Information Progress Notes * Raheem CASTRODOB:1970 ( 54 yo M)Acc No.[id number]:12/30/2024 Progress Note Patient: Raheem HUITRON Provider: Aquilino Rea DPM :1970 A ge:54 Y S ex:Male Date:12/30/2024 Address:[address] [place] [address], [facility] Pcp:Geovanni Pink MD Subjective: * Chief Complaints: [...] 12/30/2024 Generated for Printi ng/Faxing/eTransmitting on: 0 03/01/2025 01:08 PM EDT
--- OUTSIDE RECORDS SUMMARY | 2025-02-24 06:30 | XMS_ITS ---
Author Organization [facility] Address [address] [place] [address] Care Team Providers Care Cheesemaking Laborer Name Role Phone Geovanni Pink MD Primary Care Provider Mary Canela [phone] Encounters Encounter Location Date Provider Diagnosis [facility] [address] [place] [address] 02/24/2025 Mary Rea Plan Of Treatment No Information Progress Notes * Raheem CASTRODOB:1970 ( 54 yo M)Acc No.[id number]:02/24/2025 Progress Notes Patient: Raheem HUITRON Provider: Aquilino Rea DPM :1970 A ge:54 Y S ex:Male Date:02/24/2025 Address:[address] [place] [address], [facility] Pcp:Geovanni iPnk MD Subjective: * Chief Complaints: * * [...] 0 02/24/2025 Generated for Printi ng/Faxing/eTransmitting on: 03/01/2025 01:09 PM EDT
--- NOTE | 2025-03-01 10:51 | MHC.PC.OV ---
Vital Signs 03/01/25 10:57 Height 5 ft 9 in Weight 215 lb 8 oz BMI 31.8 BP 125/69 Blood Pressure Location Lt brachial Position Sitting Respiration 16 Pulse 64 Pulse Source Pulse Oximeter Temp 97.8 F Temp Source Oral Pulse Oximetry (%) 99 Oxygen Delivery Method Room Air Intake Visit Reasons: [place] [place] Note: patient here for [facility] Tissue Technician Required: No Allergies No Known Allergies Allergy (Verified 03/01/25 10:54) Medication List - Last Reconciled 03/01/25 by Gevoanni Pink MD amlodipine 10 mg PO DAILY 90 days apixaban 5 mg PO BID 90 days calcifediol ER (Rayaldee) 30 mcg PO BEDTIME 90 days dapagliflozin propanediol 10 mg PO QAM 90 days diabetic supplies, miscellan. DIABETIC SHOES everolimus (immunosuppressive) 2 mg (2 x 1 mg) PO BID 90 days insulin aspart U-100 (Novolog FlexPen U-100 Insulin aspart) 4 units subcut TIDAC insulin glargine (Lantus Solostar U-100 Insulin) 28 units subcut BEDTIME lancets (FreeStyle Lancets) As directed mycophenolate sodium 540 mg (3 x 180 mg) PO BID 90 days pen needle, diabetic USE ONE FOUR TIMES A DAY NS rosuvastatin 10 mg PO BEDTIME Tobacco use date assessed: 03/01/25 Dental Screening Dental Screen Date: 03/01/25 Did you have a dental visit in the last 12 months?: No Did you have a dental problem in the last 6 months where you did not have access to dental care?: No Was dental information given to patient?: Patient has dentist HPI [place] [place] Details 54 y/o male presents to f/u hospital visit for acute R foot osteomyelitis. Outpatient MRI with diffuse enhancement of proximal phalanx and distal phalanx remnant of great toe consistent with acute osteomyelitis. They have him on 6 weeks of daptomycin with weekly check and creat. Pt notes he feels his foot is doing well today. Continues to f/u with wound care. [facility] Medical History HTN (hypertension) PAD (peripheral artery disease) CKD (chronic kidney disease) stage 3, GFR 30-59 ml/min MSSA bacteremia Osteomyelitis of third toe of left foot S/P angiogram of extremity (10/08/22) Diabetic ulcer of right foot Osteomyelitis Wound of right foot Chronic right shoulder pain Multinodular goiter Testicular cancer Bleeding internal hemorrhoids Seminoma Paresthesia and pain of extremity Type 2 diabetes mellitus with hyperglycemia, with long-term current use of insulin Type 2 diabetes mellitus with chronic kidney disease Hyperlipidemia Vaccination refused by patient Refused pneumococcal vaccination Anemia in stage 4 chronic kidney disease Acute proliferative glomerulonephritis Secondary hyperparathyroidism of renal origin Mixed dyslipidemia Peripheral vascular disease Carpal tunnel syndrome on left Diabetes mellitus with diabetic nephropathy, with long-term current use of insulin Osteomyelitis of left foot Diabetes mellitus with foot ulcer End-stage renal disease on hemodialysis Surgical History Renal transplant recipient History of amputation (01/19/23) Amputated toe of right foot (10/13/22) History of kidney transplant Kidney transplant recipient Family History Father Unknown family medical history Mother Diabetes mellitus HTN (hypertension) CVD (cardiovascular disease) History of CVA (cerebrovascular accident) Stroke Sister Diabetes mellitus Daughter No problems noted. Sister No problems noted. Sister No problems noted. Social History Household Members: Spouse and Children Housing: House Do you presently have visiting nurse or other home services: No Alcohol intake: never Patient Tobacco Use Status: Never used Tobacco e-Cigarette/Vaping Use: Never Used Second Hand Smoke Exposure: No Advance Directives Date on File: 01/16/23 service: No Current occupational status: disabled Current occupation: disability - kidney transplant. Left side dominant Current occupational exposures/hazards: No Cognitive needs: No Hearing needs: No Vision needs: No Questionnaire Thrive Questionnaire Date Thrive assessed: 06/24/24 I am a: Patient What is your living situation today?: I have a steady place to live Within the past 12 months, did the food you bought not last and you didn't have the money to get more?: I choose not to answer this question Within the past 12 months, did you worry whether your food would run out before you got money to buy more?: I choose not to answer this question Do you have trouble paying for medicines?: No Do you have trouble getting transportation to medical appointments?: No Do you have trouble paying your heating and electricity bill?: No Do you have trouble taking care of your child, family member or friend?: No Do you have trouble with day-to-day activities such as bathing, preparing meals, shopping, managing finances, etc.?: No Are you currently unemployed and looking for a job?: Yes Are you interested in more education?: No Please select the resources that you would like help with: None Currently or been in a relationship where the following occur: No concerns reported THRIVE Score: 0 BRIANNA-7 AMB Questionnaire BRIANNA-7 Date BRIANNA - 7 assessed: 06/24/24 Source: Developed by Drs. Joey Day, Martine Olea, Felipe Robles and colleagues, with an educational marium from [employer]. Physical exam (Primary Care) Vital Signs: Last Vital Signs Temp 97.8 F 03/01/25 10:57 Pulse 64 03/01/25 10:57 Resp 16 03/01/25 10:57 BP 125/69 03/01/25 10:57 Pulse Ox 99 03/01/25 10:57 Oxygen Delivery Method Room Air 03/01/25 10:57 BMI result Body Mass Index 31.8 Tobacco/Smoking Status: Tobacco use Status Tobacco use date assessed 03/01/25 03/01/25 10:58 Patient Tobacco Use Status Never used Tobacco 03/01/25 10:54 e-Cigarette/Vaping Use Never Used 03/01/25 10:54 Thrive Assessment: Date of Thrive Assessment Date Thrive assessed 06/24/24 03/01/25 10:54 Currently or been in a relationship where the following occur: No concerns reported Coding Level of Care Code TCM High MDM <= 14 days Diagnoses Osteomyelitis of right foot M86.9 Assessment & Plan Assessment & Plan (1) Osteomyelitis of right foot: Code(s): M86.9 - Osteomyelitis, unspecified Category: Medical Plan: 02/10 to 02/16/25 Acute on chronic osteomyelitis cellulitis 54-year-old male with pertinent history of peripheral arterial disease status post right 1st and 4th toe amputations, chronic kidney disease status post renal transplant on immunosuppressive therapy, insulin-dependent type 1 diabetes mellitus, history of testicular cancer stage III, hypertension, paroxysmal atrial fibrillation on anticoagulation who was sent to the emergency department for abnormal MRI. Outpatient MRI with diffuse enhancement of proximal phalanx and distal phalanx remnant of great toe consistent with acute osteomyelitis. Treated with vancomycin. Discussed with Infectious Disease, recommendation for 6 weeks of IV daptomycin with weekly CK and creatinine check. Last day 03/29/2025. Alston catheter placed. VNA for dressing changes and wound care. Monitoring CK and creatinine. Follow-up with wound care. Wound is closing. Follow-up with infectious disease Orders: Orders CK, Total+Isoenzymes, Serum Today M86.171 - Other acute osteomyelitis, right ankle and foot Basic Metabolic Panel Today M86.171 - Other acute osteomyelitis, right ankle and foot, Z00.00 - Encounter for general adult medical examination without abnormal findings Comprehensive Met. Panel Today M86.171 - Other acute osteomyelitis, right ankle and foot Medications: New daptomycin administer over 30 mins 586 mg IV Q24H 4 weeks
[2025-03-01 10:57] VITALS: BP 125/69; PULSE 64; RESP 16; TEMP 36.6; O2SAT 99; BMI 31.8
--- OUTSIDE RECORDS SUMMARY | 2025-03-01 13:09 | XMS_ITS | Clinical Summary ---
Author Organization [facility] Address [address] [facility] [address] [place] [address] Phone Care Team Providers Care Production Worker Name Role Phone Geovanni Pink MD [...] topic Medical Devices Not on file Insurance [facility] ONE CARE MEDICARE REPLACEMENT [facility] MEDICARE REPLACEMENT [facility] MEDICARE [facility]PLACEMENT [facility] MEDICARE REPLACEMENT [facility] MEDICARE REPLACEMENT [facility] MEDICARE REPLACEMENT Care Teams Production Worker Relationship Specialty Start Date End Date Geovanni Pink MD [address] [place] [address] PCP - General Family Medicine 11/02/23 Additional Source Comments The information contained in this document represents components of the legal health record. It is not the complete legal health record.[facility]
--- OUTSIDE RECORDS SUMMARY | 2025-03-01 13:09 | XMS_ITS | Clinical Summary ---
Author Organization [facility] Address [address] [facility] [address] [place] [address] Phone Care Team Providers Care Mold Preparer Name Role Phone Geovanni Pink MD Primary Care Provider [phone] Allergies No known active allergies Medications amLODIPine [...] 3 Active Eliquis 5 MG tabletIndication s:Other alf current drug therapy Take 1 tablet (5 [...] ankle and/or foot 11/20/2021 12/11/2021 Atherosclerosis of [place] ar teries of the extremities 11/20/2021 12/11/2021 [...] PM EDT Performed at: 01 - [facility] [address] [id number] Bank Accountant: Debora Brian MD, Phone: [phone] Skyler Banda MD LAB BLOOD ORDERABLES Final Resu lt [facility] from Last 3 Months or Most Recently Relevant to Health Maintenance Insurance [facility] ([id number]) [place] [address] Care Teams Mold Preparer Relationship Specialty Start Date End Date Geovanni Pink MD [address] [place] [address] PCP - General Family Medicine 04/23/23
--- OUTSIDE RECORDS SUMMARY | 2025-03-01 13:09 | XMS_ITS | Patient Health Record ---
Author Organization [facility] Address [address] [facility] [place] [address] Care Team Providers Care Correction Officer Supervisor Name Role Phone Geovanni Pink MD Primary Care Provider Mary Canela Unavailable [phone] Allergies No Known Allergies Results Component Value [...] Polyneuropathy due to diabetes mellitus type I (939112250) Type 1 diabetes mellitus with diabetic polyneuropathy (E10.42) Active confirmed Problem Bilateral atherosclerosis of arteries of lower limbs (8909148741185689 7) Atherosclerosis of artery of both lower extremities (I70.203) Active confirmed Problem Acute osteomyelitis of right foot (9675252833796202 ) Acute osteomyelitis of right foot (M86.171) Active confirmed Possible Vital Signs Blood pressure diastolic 60 mm Hg 01/20/2025 Height 5ft9in in 01/20/2025 Blood pressure systolic 128 mm Hg 01/20/2025 Weight 212 lbs 01/20/2025 BMI 31.3 kg/m2 01/20/2025 Encounters Encounter Location Date Provider Diagnosis [facility] [address] [place] [address] 04/14/2024 Mary Grossmanclement Type 2 diabetes mellitus with diabetic polyneuropathy E11.42 ; Contracture of toe of left foot M20.5X2 ; Tinea unguium B35.1 and Abscess of toe, left L02.[address] [address] 05/04/2024 Mary Grossmanclement Type 2 diabetes mellitus with diabetic polyneuropathy E11.42 ; Contracture of toe of left foot M20.5X2 ; Tinea unguium B35.1 and Neuropathic ulcer of left foot, limited to breakdown of skin L97.[address] [address] 07/15/2024 Mary Rea Type 2 diabetes mellitus with diabetic polyneuropathy E11.42 ; Contracture of toe of left foot M20.5X2 and Tinea unguium B35.[address] [address] 08/26/2024 Mary Rea Neurotrophic ulcer o f left foot limited to breakdown of skin L97.521 ; Xerosis of skin L85.3 and Type 2 diabetes mellitus with diabetic polyneuropathy E11.[address] [address] 10/12/2024 Mary Grossmana Type 1 diabetes mellitus with diabetic polyneuropathy E10.42 ; Atherosclerosis of artery of both lower extremities I70.203 ; Tinea unguium B35.1 and Neurotrophic ulcer of left foot limited to breakdown of skin L97.[address] [address] 12/06/2024 Mary Rea Neuropathic ulcer of left foot with fat layer exposed L97.522 ; Cellulitis of toe of right foot L03.031 ; Type 2 diabetes mellitus with diabetic polyneuropathy E11.42 ; Abscess of right foot L02.611 and Other hammer toe(s) (acquired), right foot M20.[address] [address] 12/13/2024 Mary Rea Type 2 diabetes mellitus with diabetic polyneuropathy E11.42 ; Cellulitis of toe of right foot L03.031 and Neuropathic ulcer of right foot with fat layer exposed L97.[address] [address] 01/04/2025 Mary Rea Cellulitis of toe of [...] and Tinea pedis of both feet B35.[address] [address] 01/20/2025 Mary Rea Neuropathic ulcer of right foot with fat layer exposed L97.512 ; Acute osteomyelitis of right foot M86.171 ; Type 1 diabetes mellitus with diabetic polyneuropathy E10.42 and Atherosclerosis of artery of both lower extremities I70.203 [facility] [address] [address] 03/07/2024 Mary Perica [facility] [address] [address] 12/05/2024 Mary Perica [facility] [address] [address] 12/06/2024 Mary Perica [facility] [address] [address] 01/04/2025 Mary Perica [facility] [address] [address] 01/04/2025 Mary Perica [facility] [address] [address] 01/20/2025 Mary Perica [facility] [address] [address] 01/20/2025 Mary Perica [facility] [address] [place] [address] 01/20/2025 Mary Perica [facility] [address] [address] 02/24/2025 Mary Perica Assessments Encounter Date Diagnosis [...] of right foot (ICD-10 - M86.171) Possible 01/04/2025 Type 1 diabetes mellitus with diabetic polyneuropathy (ICD-10 - E10.42) 01/20/2025 Type 1 diabetes mellitus with diabetic polyneuropathy (ICD-10 - E10.42) 12/13/2024 Neuropathic ulcer of right foot with fat layer exposed (ICD-10 - L97.512) 10/12/2024 Tinea unguium (ICD-10 - B35.1) 12/06/2024 Cellulitis of toe of right foot (ICD-10 - L03.031) 07/15/2024 Tinea unguium (ICD-10 - B35.1) 08/26/2024 Xerosis of skin (ICD-10 - L85.3) 05/04/2024 Tinea unguium (ICD-10 - B35.1) 04/14/2024 [...] breakdown of skin (ICD-10 - L97.521) 12/06/2024 Type 2 diabetes mellitus with diabetic polyneuropathy (ICD-10 - E11.42) 01/20/2025 Atherosclerosis of artery of both lower extremities (ICD-10 - I70.203) 01/04/2025 Atherosclerosis of artery of both lower extremities (ICD-10 - I70.203) 01/04/2025 Tinea unguium (ICD-10 - B35.1) 12/06/2024 Other hammer toe(s) (acquired), right foot [...] Foot, right 01/20/2025 *CBC With Differential/Platelet 01/21/20 C-Reactive Protein, Quant 01/20/2025 Basic Metabolic Panel (8) 01/20/2025 ESR 01/20/2025 X ray : Foot, left 3V 12/11/2022 X ray : Foot, left 3V 02/11/2024 X ray : Foot, left 3V 2020 X ray : Foot, left 3V 08/16/2021 X ray : Foot, right 3V 01/20/2025 13086-BZULPBU NAIL, 6 OR MORE 09/16/2021 46489-AICHASB SKIN/TISSUE 10/25/2021 30434-HOIEXUM SKIN/TISSUE 12/04/2022 17162-KVVZZKT SKIN/TISSUE 12/11/2022 01965-WMYBPXN SKIN/TISSUE 09/16/2021 00306-DGBTVZE SKIN/TISSUE 2020 57428-YEVYXVH SKIN/TISSUE 02/11/2024 20356-QBTF SKIN LESIONS, OVER 4 09/17/19 59294-OTVP SKIN LESIONS, OVER 4 11/28/19 11748-DLDNPXUY OF HEMATOMA/FLUID 023 Insurance Providers Payer Name Payer Address Payer Phone Subscriber Number Group Number Insured Name Patient Relationship to Insured Coverage Start Date Coverage End Date [facility] SCO Claims [address] [place] [id number] Raheem Castro Self - patient is the insured Medical (General) History Medical History History ICD Code Kidney disease type II diabetes Surgical History Surgery Date(Month/Year) kidney transplant 10/2016 L leg surgery 09/09/21 amputation, toe 01/2023 amputation , toe 04/2023 Toe amputation 10/14/23 hammertoe, right foot 02/2024 Hospitalization History Reason Date(Month/Year) [facility]- Infection in bone [facility] toe [facility]23 [facility] 01/2023
--- OUTSIDE RECORDS SUMMARY | 2025-03-01 13:09 | XMS_ITS | Clinical Summary ---
Author Organization [facility] Address [address] [place] [address] Care Team Providers Care Hydraulic Barker Operator Name Role Phone Lianne Manuel MD [...] age to complete this topic Care Teams Hydraulic Barker Operator Relationship Specialty Start Date End Date Lianne Manuel MD [address] [place] [address] PCP - General Internal Medicine 01/30/22
--- OUTSIDE RECORDS SUMMARY | 2025-03-01 13:09 | XMS_ITS | Clinical Summary ---
Author Organization [facility] Address [address] [place] [address] Care Team Providers Care Harm Reduction Worker Name Role Phone Lianne Manuel MD Primary [...] MGD MEDICARE OUT OF NETWORK [place] [id number] * Guarantor: [employer] Account Type Relation to Patient Date of Phone Billing Address Client/Submitter Employer Care Teams Harm Reduction Worker Relationship Specialty Start Date End Date Lianne Manuel MD [address] [place] [address] PCP - General Internal Medicine 07/10/22
== END 2025-03-01 11:28 | disposition home or self-care (01) ==
LOC: HO.HMCFM 10:38
PROVIDERS: PCP Family Medicine; Visit Provider Family Medicine
DX: M86.9 Osteomyelitis, unspecified (principal)

== ENCOUNTER → 2025-03-01 10:37 | Outpatient (BNVA) | payer OTHER, SELFPAY | PROVIDERS: PCP Family Medicine; Visit Provider Family Medicine | DX: E10.69 Type 1 diabetes mellitus with other specified complication (principal); M86.171 Other acute osteomyelitis, right ankle and foot; E10.22 Type 1 diabetes mellitus with diabetic chronic kidney disease; E10.51 Type 1 diabetes mellitus with diabetic peripheral angiopathy without gangrene; I12.9 Hypertensive chronic kidney disease with stage 1 through stage 4 chronic kidney disease, or unspecified chronic kidney disease; N18.9 Chronic kidney disease, unspecified; I48.0 Paroxysmal atrial fibrillation; Z79.01 Long term (current) use of anticoagulants; Z89.411 Acquired absence of right great toe; Z89.421 Acquired absence of other right toe(s) | CPT/HCPCS: 99495 ==

== ENCOUNTER 2025-03-07 11:53 | Outpatient (REF) | payer OTHER, SELFPAY ==
--- OUTSIDE RECORDS SUMMARY | 2024-12-30 05:00 | XMS_ITS ---
Author Organization [facility] Address [address] [place] [address] Care Team Providers Care Clinical Staff Anesthesiologist Name Role Phone Geovanni Pink MD Primary Care Provider Mary Canela [phone] Encounters Encounter Location Date Provider Diagnosis [facility] [address] [place] [address] 12/30/2024 Mary Rea Plan Of Treatment No Information Progress Notes * Raheem CASTRODOB:1970 ( 54 yo M)Acc No.[id number]:12/30/2024 Progress Note Patient: Raheem HUITRON Provider: Aquilino Rea DPM :1970 A ge:54 Y S ex:Male Date:12/30/2024 Address:[address] [place] [address], [facility] Pcp:Geovanni Pink MD Subjective: * Chief Complaints: [...] 0 12/30/2024 Generated for Printi ng/Faxing/eTransmitting on: 0 03/07/2025 02:44 PM EDT
--- OUTSIDE RECORDS SUMMARY | 2025-02-24 06:30 | XMS_ITS ---
Author Organization [facility] Address [address] [place] [address] Care Team Providers Care Mortgage Loan Reviewer Name Role Phone Geovanni Pink MD Primary Care Provider Mary Canela [phone] Encounters Encounter Location Date Provider Diagnosis [facility] [address] [place] [address] 02/24/2025 Mary Rea Plan Of Treatment No Information Progress Notes * Raheem CASTRODOB:1970 ( 54 yo M)Acc No.[id number]:02/24/2025 Progress Notes Patient: Raheem HUITRON Provider: Aquilino Rea DPM :1970 A ge:54 Y S ex:Male Date:02/24/2025 Address:[address] [place] [address], [facility] Pcp:Geovanni Pink MD Subjective: * Chief Complaints: * * Medical History: Objective: * Vitals: Assessment: Plan: * Treatment: * Images: * The named appointment provid er may or may not be the originator of this progress note, and it is not deemed complete until electronically signed by the appointment provider. Sign off status: Pending * Provider: Aquilino Rea DPM Date: 02/24/2025 Generated for Printi ng/Faxing/eTransmitting on: 03/07/2025 02:45 PM EDT
[2025-03-07 11:56] LABS: MANUAL DIFF FLAG NO
[2025-03-07 12:18] LABS: Hematocrit 47.8 % (42.0-52.0); Hemoglobin 15.3 g/dl (14.0-18.0); Imm Gran Abs Auto 0.10 X10*3/uL (0.00-0.03); Imm Gran Pct Auto 1.3 % (0.0-0.4); Lymphocytes Absolute Auto 1.8 X10*3/uL (1.2-4.9); Mean Corpuscular HGB Conc 32.0 g/dl (31.0-36.0); Mean Corpuscular Hemoglobin 27.5 pg (27.0-33.0); Mean Corpuscular Volume 86.0 fL (80.0-98.0); NRBC Abs Auto 0.000 X10*3/uL (0.0-0.012); NRBC Pct Auto 0.0 /100WBC (0.0-0.2); Platelet Count 159 X10*3/uL (160-400); Red Blood Count 5.56 X10*6/uL (4.60-5.80); White Blood Count 7.5 X10*3/uL (4.8-10.8)
[2025-03-07 14:32] LABS: Alanine Aminotransferase 30 U/L (0-40); Albumin Level 4.5 g/dL (3.5-5.0); Alkaline Phosphatase 127 U/L (39-117); Anion Gap 14 (12-20); Aspartate Amino Transferase 32 U/L (5-37); Blood Urea Nitrogen 17 mg/dL (9-16); Calcium 9.4 mg/dL (8.4-10.2); Carbon Dioxide 25 mmol/L (22-29); Chloride 107 mmol/L (96-108); Estimated Glomerular Filt Rate 43; Potassium 3.2 mmol/L (3.3-5.1); Sodium 143 mmol/L (135-145); Total Protein 7.6 g/dL (6.5-8.0)
--- OUTSIDE RECORDS SUMMARY | 2025-03-07 14:44 | XMS_ITS | Clinical Summary ---
Author Organization Patient [facility] Address [address] [place] [address] Care Team Providers Care Airport Screener Name Role Phone Lianne Manuel MD Primary [...] age to complete this topic Care Teams Airport Screener Relationship Specialty Start Date End Date Lianne Manuel MD [address] [place] [address] PCP - General Internal Medicine 01/30/22
--- OUTSIDE RECORDS SUMMARY | 2025-03-07 14:44 | XMS_ITS | Clinical Summary ---
Author Organization [facility] Address [address] [facility] [address] [place] [address] Phone Care Team Providers Care Tray Worker Name Role Phone Geovanni Pink MD Primary Care Provider [phone]- [phone] Allergies No known active allergies Medications amLODIPine [...] 3 Active Eliquis 5 MG tabletIndication s:Other assisted current drug therapy Take 1 tablet (5 [...] ankle and/or foot 11/20/2021 12/11/2021 Atherosclerosis of [place] ar teries of the extremities 11/20/2021 12/11/2021 [...] PM EDT Performed at: 01 - [facility] [address] [id number] Goggles Assembler: Debora Brian MD, Phone: [phone] Skyler Banda MD LAB BLOOD ORDERABLES Final Resu lt [facility] from Last 3 Months or Most Recently Relevant to Health Maintenance Insurance [facility] ([id number]) [place] [address] Care Teams Tray Worker Relationship Specialty Start Date End Date Geovanni Pink MD [address] [place] [address] PCP - General Family Medicine 04/23/23
--- OUTSIDE RECORDS SUMMARY | 2025-03-07 14:45 | XMS_ITS | Clinical Summary ---
Author Organization [facility] Address [address] [place] [address] Care Team Providers Care Senior Data Warehouse Developer Name Role Phone Lianne Manuel MD [...] MGD MEDICARE OUT OF NETWORK [place] [id number] * Guarantor: [employer] Account Type Relation to Patient Date of Phone Billing Address Client/Submitter Employer Care Teams Senior Data Warehouse Developer Relationship Specialty Start Date End Date Lianne Manuel MD [address] [place] [address] PCP - General Internal Medicine 07/10/22
--- OUTSIDE RECORDS SUMMARY | 2025-03-07 14:45 | XMS_ITS | Patient Health Record ---
Author Organization [facility] Address [address] [facility] [place] [address] Care Team Providers Care Wide Area Network Engineer Name Role Phone Geovanni Pink MD Primary Care Provider Mary Canela Unavailable [phone] Allergies No Known Allergies Results Component Value [...] Polyneuropathy due to diabetes mellitus type I (727568108) Type 1 diabetes mellitus with diabetic polyneuropathy (E10.42) Active confirmed Problem Bilateral atherosclerosis of arteries of lower limbs (6710891096095163 7) Atherosclerosis of artery of both lower extremities (I70.203) Active confirmed Problem Acute osteomyelitis of right foot (6054479613086345 ) Acute osteomyelitis of right foot (M86.171) Active confirmed Possible Vital Signs Blood pressure diastolic 60 mm Hg 01/20/2025 Height 5ft9in in 01/20/2025 Blood pressure systolic 128 mm Hg 01/20/2025 Weight 212 lbs 01/20/2025 BMI 31.3 kg/m2 01/20/2025 Encounters Encounter Location Date Provider Diagnosis [facility] [address] [place] [address] 04/14/2024 Mary Grossmanclement Type 2 diabetes mellitus with diabetic polyneuropathy E11.42 ; Contracture of toe of left foot M20.5X2 ; Tinea unguium B35.1 and Abscess of toe, left L02.[address] [address] 05/04/2024 Mary Grossmanclement Type 2 diabetes mellitus with diabetic polyneuropathy E11.42 ; Contracture of toe of left foot M20.5X2 ; Tinea unguium B35.1 and Neuropathic ulcer of left foot, limited to breakdown of skin L97.[address] [address] 07/15/2024 Mary Rea Type 2 diabetes mellitus with diabetic polyneuropathy E11.42 ; Contracture of toe of left foot M20.5X2 and Tinea unguium B35.[address] [address] 08/26/2024 Mary Rea Neurotrophic ulcer o f left foot limited to breakdown of skin L97.521 ; Xerosis of skin L85.3 and Type 2 diabetes mellitus with diabetic polyneuropathy E11.[address] [address] 10/12/2024 Mary Grossmana Type 1 diabetes mellitus with diabetic polyneuropathy E10.42 ; Atherosclerosis of artery of both lower extremities I70.203 ; Tinea unguium B35.1 and Neurotrophic ulcer of left foot limited to breakdown of skin L97.[address] [address] 12/06/2024 Mary Rea Neuropathic ulcer of left foot with fat layer exposed L97.522 ; Cellulitis of toe of right foot L03.031 ; Type 2 diabetes mellitus with diabetic polyneuropathy E11.42 ; Abscess of right foot L02.611 and Other hammer toe(s) (acquired), right foot M20.[address] [address] 12/13/2024 Mary Rea Type 2 diabetes mellitus with diabetic polyneuropathy E11.42 ; Cellulitis of toe of right foot L03.031 and Neuropathic ulcer of right foot with fat layer exposed L97.[address] [address] 01/04/2025 Mary Rea Cellulitis of toe of [...] and Tinea pedis of both feet B35.[address] [address] 01/20/2025 Mary Rea Neuropathic ulcer of right foot with fat layer exposed L97.512 ; Acute osteomyelitis of right foot M86.171 ; Type 1 diabetes mellitus with diabetic polyneuropathy E10.42 and Atherosclerosis of artery of both lower extremities I70.203 [facility] [address] [address] 03/07/2024 Mary Perica [facility] [address] [address] 12/05/2024 Mary Perica [facility] [address] [address] 12/06/2024 Mary Perica [facility] [address] [address] 01/04/2025 Mary Perica [facility] [address] [address] 01/04/2025 Mary Perica [facility] [address] [address] 01/20/2025 Mary Perica [facility] [address] [address] 01/20/2025 Mary Perica [facility] [address] [place] [address] 01/20/2025 Mary Perica [facility] [address] [address] 02/24/2025 Mary Perica Assessments Encounter Date Diagnosis [...] X ray : Foot, right 3V 01/20/2025 40911-MSPHTGP NAIL, 6 OR MORE 09/16/2021 42910-XTVDLOO SKIN/TISSUE 10/25/2021 19441-FDSSQPX SKIN/TISSUE 12/04/2022 83450-DWXVNCF SKIN/TISSUE 12/11/2022 25232-EJFKRUV SKIN/TISSUE 09/16/2021 91980-PZQNRIU SKIN/TISSUE 2020 78145-QYMFXTY SKIN/TISSUE 02/11/2024 40417-WFLL SKIN LESIONS, OVER 4 09/17/19 44096-YQQY SKIN LESIONS, OVER 4 11/28/19 36437-ZQLZRZFN OF HEMATOMA/FLUID 023 Insurance Providers Payer Name Payer Address Payer Phone Subscriber Number Group Number Insured Name Patient Relationship to Insured Coverage Start Date Coverage End Date [facility] SCO Claims [address] [place] [id number] Raheem Castro Self - patient is the insured Medical (General) History Medical History History ICD Code Kidney disease type II diabetes Surgical History Surgery Date(Month/Year) kidney transplant 10/2016 L leg surgery 09/09/21 amputation, toe 01/2023 amputation , toe 04/2023 Toe amputation 10/14/23 hammertoe, right foot 02/2024 Hospitalization History Reason Date(Month/Year) [facility] [place] fever- Infection in bone of toe [facility]2023 [facility] - Cut [facility] toe 01/2023
--- OUTSIDE RECORDS SUMMARY | 2025-03-07 14:45 | XMS_ITS | Clinical Summary ---
Author Organization [facility] Address [address] [facility] [address] [place] [address] Phone Care Team Providers Care Certified Dialysis Technician Name Role Phone Geovanni Pink MD Primary [...] topic Medical Devices Not on file Insurance [facility] ONE CARE MEDICARE REPLACEMENT [facility] MEDICARE [facility]PLACEMENT [facility] MEDICARE [facility]PLACEMENT [facility] MEDICARE REPLACEMENT [facility] MEDICARE REPLACEMENT [facility] MEDICARE REPLACEMENT Care Teams Certified Dialysis Technician Relationship Specialty Start Date End Date Geovanni Pink MD [address] [place] [address] PCP - General Family Medicine 11/02/23 Additional Source Comments The information contained in this document represents components of the legal health record. It is not the complete legal health record.[facility]
== END 2025-03-07 11:54 | disposition home or self-care (01) ==
LOC: HO.HVNA 11:53
PROVIDERS: Visit Provider Internal Medicine
DX: M86.171 Other acute osteomyelitis, right ankle and foot (principal)
CPT/HCPCS: 36415; 80053; 82550; 85025; 86140

== ENCOUNTER 2025-03-14 11:11 | Outpatient (REF) | payer OTHER, SELFPAY ==
--- OUTSIDE RECORDS SUMMARY | 2024-12-30 05:00 | XMS_ITS ---
Author Organization [facility] Address [address] [place] [address] Care Team Providers Care Slate Trimmer Name Role Phone Geovanni Pink MD Primary Care Provider Mary Canela [phone] Encounters Encounter Location Date Provider Diagnosis [facility] [address] [place] [address] 12/30/2024 Mary Rea Plan Of Treatment No Information Progress Notes * Raheem CASTRODOB:1970 ( 55 yo M)Acc No.[id number]:12/30/2024 Progress Note Patient: Raheem HUITRON Provider: Aquilino Rea DPM :1970 A ge:54 Y S ex:Male Date:12/30/2024 Address:[address] [place] [address], [facility] Pcp:Geovanni Pink MD Subjective: * Chief Complaints: [...] Date: 12/30/2024 Generated for Printi ng/Faxing/eTransmitting on: 03/14/2025 12:37 PM EDT
--- OUTSIDE RECORDS SUMMARY | 2025-02-24 06:30 | XMS_ITS ---
Author Organization [facility] Address [address] [place] [address] Care Team Providers Care Die Storage Worker Name Role Phone Geovanni Pink MD Primary Care Provider Mary Canela [phone] Encounters Encounter Location Date Provider Diagnosis [facility] [address] [place] [address] 02/24/2025 Mary Rea Plan Of Treatment No Information Progress Notes * Raheem CASTRODOB:1970 ( 55 yo M)Acc No.[id number]:02/24/2025 Progress Notes Patient: Raheem HUITRON Provider: Aquilino Rea DPM :1970 A ge:54 Y S ex:Male Date:02/24/2025 Address:[address] [place] [address], [facility] Pcp:Geovanni Pink MD Subjective: * Chief Complaints: [...] 0 02/24/2025 Generated for Printi ng/Faxing/eTransmitting on: 03/14/2025 12:38 PM EDT
[2025-03-14 11:18] LABS: MANUAL DIFF FLAG NO
[2025-03-14 11:31] LABS: Hematocrit 46.2 % (42.0-52.0); Hemoglobin 15.4 g/dl (14.0-18.0); Imm Gran Abs Auto 0.06 X10*3/uL (0.00-0.03); Imm Gran Pct Auto 0.8 % (0.0-0.4); Lymphocytes Absolute Auto 1.6 X10*3/uL (1.2-4.9); Mean Corpuscular HGB Conc 33.3 g/dl (31.0-36.0); Mean Corpuscular Hemoglobin 28.0 pg (27.0-33.0); Mean Corpuscular Volume 84.0 fL (80.0-98.0); NRBC Abs Auto 0.000 X10*3/uL (0.0-0.012); NRBC Pct Auto 0.0 /100WBC (0.0-0.2); Platelet Count 167 X10*3/uL (160-400); Red Blood Count 5.50 X10*6/uL (4.60-5.80); White Blood Count 7.8 X10*3/uL (4.8-10.8)
[2025-03-14 12:09] LABS: Alanine Aminotransferase 21 U/L (0-40); Albumin Level 4.4 g/dL (3.5-5.0); Alkaline Phosphatase 129 U/L (39-117); Anion Gap 12 (12-20); Aspartate Amino Transferase 23 U/L (5-37); Blood Urea Nitrogen 16 mg/dL (9-16); Calcium 9.0 mg/dL (8.4-10.2); Carbon Dioxide 24 mmol/L (22-29); Chloride 107 mmol/L (96-108); Estimated Glomerular Filt Rate 41; Potassium 3.0 mmol/L (3.3-5.1); Sodium 140 mmol/L (135-145); Total Protein 7.8 g/dL (6.5-8.0)
--- OUTSIDE RECORDS SUMMARY | 2025-03-14 12:38 | XMS_ITS | Patient Health Record ---
Author Organization [facility] Address [address] [facility] [place] [address] Care Team Providers Care Contract Administration Manager Name Role Phone Geovanni Pink MD Primary Care Provider Mary Canela Unavailable [phone] Allergies No Known Allergies Results Component Value [...] Polyneuropathy due to diabetes mellitus type I (229230730) Type 1 diabetes mellitus with diabetic polyneuropathy (E10.42) Active confirmed Problem Bilateral atherosclerosis of arteries of lower limbs (2247088783675985 7) Atherosclerosis of artery of both lower extremities (I70.203) Active confirmed Problem Acute osteomyelitis of right foot (1753739768975468 ) Acute osteomyelitis of right foot (M86.171) Active confirmed Possible Vital Signs Blood pressure diastolic 60 mm Hg 01/20/2025 Height 5ft9in in 01/20/2025 Blood pressure systolic 128 mm Hg 01/20/2025 Weight 212 lbs 01/20/2025 BMI 31.3 kg/m2 01/20/2025 Encounters Encounter Location Date Provider Diagnosis [facility] [address] [place] [address] 04/14/2024 Mary Grossmanclement Type 2 diabetes mellitus with diabetic polyneuropathy E11.42 ; Contracture of toe of left foot M20.5X2 ; Tinea unguium B35.1 and Abscess of toe, left L02.[address] [address] 05/04/2024 Mary Grossmanclement Type 2 diabetes mellitus with diabetic polyneuropathy E11.42 ; Contracture of toe of left foot M20.5X2 ; Tinea unguium B35.1 and Neuropathic ulcer of left foot, limited to breakdown of skin L97.[address] [address] 07/15/2024 Mary Rea Type 2 diabetes mellitus with diabetic polyneuropathy E11.42 ; Contracture of toe of left foot M20.5X2 and Tinea unguium B35.[address] [address] 08/26/2024 Mary Rea Neurotrophic ulcer o f left foot limited to breakdown of skin L97.521 ; Xerosis of skin L85.3 and Type 2 diabetes mellitus with diabetic polyneuropathy E11.[address] [address] 10/12/2024 Mary Grossmana Type 1 diabetes mellitus with diabetic polyneuropathy E10.42 ; Atherosclerosis of artery of both lower extremities I70.203 ; Tinea unguium B35.1 and Neurotrophic ulcer of left foot limited to breakdown of skin L97.[address] [address] 12/06/2024 Mary Rea Neuropathic ulcer of left foot with fat layer exposed L97.522 ; Cellulitis of toe of right foot L03.031 ; Type 2 diabetes mellitus with diabetic polyneuropathy E11.42 ; Abscess of right foot L02.611 and Other hammer toe(s) (acquired), right foot M20.[address] [address] 12/13/2024 Mary Rea Type 2 diabetes mellitus with diabetic polyneuropathy E11.42 ; Cellulitis of toe of right foot L03.031 and Neuropathic ulcer of right foot with fat layer exposed L97.[address] [address] 01/04/2025 Mary Rea Cellulitis of toe of [...] and Tinea pedis of both feet B35.[address] [address] 01/20/2025 Mary Rea Neuropathic ulcer of right foot with fat layer exposed L97.512 ; Acute osteomyelitis of right foot M86.171 ; Type 1 diabetes mellitus with diabetic polyneuropathy E10.42 and Atherosclerosis of artery of both lower extremities I70.203 [facility] [address] [address] 12/05/2024 Mary Perica [facility] [address] [address] 12/06/2024 Mary Perica [facility] [address] [address] 01/04/2025 Mary Perica [facility] [address] [address] 01/04/2025 Mary Perica [facility] [address] [address] 01/20/2025 Mary Perica [facility] [address] [address] 01/20/2025 Mary Perica [facility] [address] [address] 01/20/2025 Mary Perica [facility] [address] [address] 02/24/2025 Mary Grossmana Assessments Encounter Date Diagnosis (ICD [...] X ray : Foot, right 3V 01/20/2025 18225-OHWIWUJ NAIL, 6 OR MORE 09/16/2021 40178-NMJVGTQ SKIN/TISSUE 10/25/2021 13402-QGBEABS SKIN/TISSUE 12/04/2022 86372-SAYRISZ SKIN/TISSUE 12/11/2022 11338-XDCWNIV SKIN/TISSUE 09/16/2021 42457-JNWMSIC SKIN/TISSUE 2020 72699-GATTUIZ SKIN/TISSUE 02/11/2024 05920-POSE SKIN LESIONS, OVER 4 09/17/19 06409-CLKA SKIN LESIONS, OVER 4 11/28/19 23 49429-EZOVBNNM OF HEMATOMA/FLUID 023 Insurance Providers Payer Name Payer Address Payer Phone Subscriber Number Group Number Insured Name Patient Relationship to Insured Coverage Start Date Coverage End Date [facility] SCO Claims [address] [place] [id number] Raheem Castro Self - patient is the insured Medical (General) History Medical History History ICD Code Kidney disease type II diabetes Surgical History Surgery Date(Month/Year) kidney transplant 10/2016 L leg surgery 09/09/21 amputation, toe 01/2023 amputation , toe 04/2023 Toe amputation 10/14/23 hammertoe, right foot 02/2024 Hospitalization History Reason Date(Month/[place] [facility] [place]- [place]fection in bone of toe [facility]- [facility] 04/2023 [facility] - Cut of piece of toe 01/2023
--- OUTSIDE RECORDS SUMMARY | 2025-03-14 12:38 | XMS_ITS | Clinical Summary ---
Author Organization [facility] Address [address] [place] [address] Care Team Providers Care Joiner Helper Name Role Phone Lianne Manuel MD Primary [...] Health Maintenance Due Date Last Done Comments DTaP,Tdap,and Td Vaccines (1 - Tdap) 1990 Hepatitis B Vaccines (1 of 3 - 19+ 3-dose series) 1990 Pneumococcal Vaccine: 50+ Ye ars (1 of 1 - PCV) 2021 Zoster Vaccines (1 of 2) 2021 Depression Screening 06/15/2024 COVID-19 Vaccine ( - 2023-2 5 season) 2025 Influenza Vaccine (#1) 2025 RSV Immunization Adult Patie nts (1 - 1-dose 75+ series) 2046 HIB Vaccines Aged Out No longer eligi [...] age to complete this topic Care Teams Joiner Helper Relationship Specialty Start Date End Date Lianne Manuel MD [address] [place] [address] PCP - General Internal Medicine 01/30/22
--- OUTSIDE RECORDS SUMMARY | 2025-03-14 12:38 | XMS_ITS | Clinical Summary ---
Author Organization [facility] Address [address] [facility] [address] [place] [address] Phone Care Team Providers Care In Home Sales Consultant Name Role Phone Geovanni Pink MD [...] topic Medical Devices Not on file Insurance [facility] ONE CARE MEDICARE REPLACEMENT [facility] MEDICARE REPLACEMENT [facility] MEDICARE REPLACEMENT [facility] MEDICARE REPLACEMENT [facility] MEDICARE REPLACEMENT [facility] MEDICARE REPLACEMENT Care Teams In Home Sales Consultant Relationship Specialty Start Date End Date Geovanni Pink MD [address] [place] [address] PCP - General Family Medicine 11/02/23 Additional Source Comments The information contained in this document represents components of the legal health record. It is not the complete legal health record.[facility]
--- OUTSIDE RECORDS SUMMARY | 2025-03-14 12:38 | XMS_ITS | Clinical Summary ---
Author Organization [facility] Address [address] [facility] [address] [place] [address] Phone Care Team Providers Care Pile Header Name Role Phone Geovanni Pink MD Primary Care Provider [phone]- [phone] Allergies No known active allergies Medications amLODIPine [...] ankle and/or foot 11/20/2021 12/11/2021 Atherosclerosis of [place] ar teries of the extremities 11/20/2021 12/11/2021 [...] EDT Performed at: 01 - [facility] [address] [id number] Cushion Gum Applicator: Debora Brian MD, Phone: [phone] Skyler Banda MD LAB BLOOD ORDERABLES Final Resu lt [facility] from Last 3 Months or Most Recently Relevant to Health Maintenance Insurance [facility] ([id number]) [place] [address] Care Teams Pile Header Relationship Specialty Start Date End Date Geovanni Pink MD [address] [place] [address] PCP - General Family Medicine 04/23/23
--- OUTSIDE RECORDS SUMMARY | 2025-03-14 12:38 | XMS_ITS | Clinical Summary ---
Author Organization [facility] Address [address] [place] [address] Care Team Providers Care Heel Coverer Name Role Phone Lianne Manuel MD Primary [...] MGD MEDICARE OUT OF NETWORK JAYLEN FARIA [id number] * Guarantor: [employer]RA[employer] DE[employer] Account Type Relation to Patient Date of Phone Billing Address Client/Submitter Employer Care Teams Heel Coverer Relationship Specialty Start Date End Date Lianne Manuel MD [address] [place] [address] PCP - General Internal Medicine 07/10/22
== END 2025-03-14 11:12 | disposition home or self-care (01) ==
LOC: HO.HVNA 11:11
PROVIDERS: Visit Provider Internal Medicine
DX: M86.171 Other acute osteomyelitis, right ankle and foot (principal)
CPT/HCPCS: 36415; 80053; 82550; 85025; 86140

== ENCOUNTER 2025-03-21 11:29 | Outpatient (REF) | payer OTHER, SELFPAY ==
--- OUTSIDE RECORDS SUMMARY | 2024-12-30 05:00 | XMS_ITS ---
Author Organization [facility] Address [address] [place] [address] Care Team Providers Care Help Desk Assistant Name Role Phone Geovanni Pink MD Primary Care Provider Mary Canela [phone] Encounters Encounter Location Date Provider Diagnosis [facility] [address] [place] [address] 12/30/2024 Mary Rea Plan Of Treatment No Information Progress Notes * Raheem CASTRODOB:1970 ( 55 yo M)Acc No.[id number]:12/30/2024 Progress Note Patient: Raheem HUITRON Provider: Aquilino Rea DPM :1970 A ge:54 Y S ex:Male Date:12/30/2024 Address:[address] [place] [address], [facility] Pcp:Gevoanni Pink MD Subjective: * Chief Complaints: * * Medical History: Objective: * Vitals: Assessment: Plan: * Treatment: * Images: * The named appointment provid er may or may not be the originator of this progress note, and it is not deemed complete until electronically signed by the appointment provider. Sign off status: Pending * Provider: Aquilino Rea DPM Date: 0 12/30/2024 Generated for Printi ng/Faxing/eTransmitting on: 1 02:31 PM EDT
--- OUTSIDE RECORDS SUMMARY | 2025-02-24 06:30 | XMS_ITS ---
Author Organization [facility] Address [address] [place] [address] Care Team Providers Care Product Safety Officer Name Role Phone Geovanni Pink MD Primary Care Provider Mary Canela [phone] Encounters Encounter Location Date Provider Diagnosis [facility] [address] [place] [address] 02/24/2025 Mary Rea Plan Of Treatment No Information Progress Notes * Raheem CASTRODOB:1970 ( 55 yo M)Acc No.[id number]:02/24/2025 Progress Notes Patient: Raheem HUITRON Provider: Aquilino Rea DPM :1970 A ge:54 Y S ex:Male Date:02/24/2025 Address:[address] [place] [address], [facility] Pcp:Geovanni Pink MD Subjective: * Chief Complaints: [...] 02/24/2025 Generated for Printi ng/Faxing/eTransmitting on: 1 02:32 PM EDT
[2025-03-21 12:02] LABS: Alanine Aminotransferase 19 U/L (0-40); Albumin Level 4.6 g/dL (3.5-5.0); Alkaline Phosphatase 133 U/L (39-117); Anion Gap 13 (12-20); Aspartate Amino Transferase 26 U/L (5-37); Blood Urea Nitrogen 21 mg/dL (9-16); Calcium 9.0 mg/dL (8.4-10.2); Carbon Dioxide 22 mmol/L (22-29); Chloride 109 mmol/L (96-108); Estimated Glomerular Filt Rate 38; Potassium 3.1 mmol/L (3.3-5.1); Sodium 141 mmol/L (135-145); Total Protein 7.9 g/dL (6.5-8.0)
--- OUTSIDE RECORDS SUMMARY | 2025-03-21 14:32 | XMS_ITS | Clinical Summary ---
Author Organization [facility] Address [address] [facility] [address] [place] [address] Phone Care Team Providers Care Operating Systems Programmer Name Role Phone Geovanni Pink MD Primary Care Provider [phone]- [phone] Allergies No known active allergies Medications amLODIPine [...] 3 Active Eliquis 5 MG tabletIndication s:Other intermediate frame tender current drug therapy Take 1 tablet (5 [...] ankle and/or foot 11/20/2021 12/11/2021 Atherosclerosis of [place] ar teries of the extremities 11/20/2021 12/11/2021 [...] PM EDT Performed at: 01 - [facility] [address] [id number] Ticket Seller: Debora Brian MD, Phone: [phone] Skyler Banda MD LAB BLOOD ORDERABLES Final Resu lt [facility] from Last 3 Months or Most Recently Relevant to Health Maintenance Insurance [facility] ([id number]) [place] [address] Care Teams Operating Systems Programmer Relationship Specialty Start Date End Date Geovanni Pink MD [address] [place] [address] PCP - General Family Medicine 04/23/23
--- OUTSIDE RECORDS SUMMARY | 2025-03-21 14:32 | XMS_ITS | Clinical Summary ---
Author Organization Patient Business [facility] Address [address] [place] [address] Care Team Providers Care Ux Design Lead Name Role Phone Lianne Manuel MD Primary [...] age to complete this topic Care Teams Ux Design Lead Relationship Specialty Start Date End Date Lianne Manuel MD [address] [place] [address] PCP - General Internal Medicine 01/30/22
--- OUTSIDE RECORDS SUMMARY | 2025-03-21 14:32 | XMS_ITS | Clinical Summary ---
Author Organization [facility] Address [address] [place] [address] Care Team Providers Care Printing Press Machine Operator Name Role Phone Lianne Manuel [...] MGD MEDICARE OUT OF NETWORK JAYLEN FARIA [id number] * Guarantor: [employer]RA[employer]BUSE DE[employer] Account Type Relation to Patient Date of Phone Billing Address Client/Submitter Employer Care Teams Printing Press Machine Operator Relationship Specialty Start Date End Date Lianne Manuel MD [address] [place] [address] PCP - General Internal Medicine 07/10/22
--- OUTSIDE RECORDS SUMMARY | 2025-03-21 14:32 | XMS_ITS | Clinical Summary ---
Author Organization [facility] Address [address] [facility] [address] [place] [address] Phone Care Team Providers Care Illustrator Set Name Role Phone Geovanni Pink MD Primary [...] Devices Not on file Insurance [facility] ONE CARE MEDICARE REPLACEMENT [facility] MEDICARE REPLACEMENT [facility] MEDICARE REPLACEMENT [facility] MEDICARE REPLACEMENT [facility] MEDICARE REPLACEMENT [facility] MEDICARE REPLACEMENT Care Teams Illustrator Set Relationship Specialty Start Date End Date Geovanni Pink MD [address] [place] [address] PCP - General Family Medicine 11/02/23 Additional Source Comments The information contained in this document represents components of the legal health record. It is not the complete legal health record.[facility]
--- OUTSIDE RECORDS SUMMARY | 2025-03-21 14:32 | XMS_ITS | Patient Health Record ---
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 I (926648772) Type 1 diabetes mellitus with diabetic polyneuropathy (E10.42) Active confirmed Problem Bilateral atherosclerosis of arteries of lower limbs (6424027275776779 7) Atherosclerosis of artery of both lower extremities (I70.203) Active confirmed Problem Acute osteomyelitis of right foot (9687397328806858 ) Acute osteomyelitis of right foot (M86.171) Active confirmed Possible Vital Signs Blood pressure diastolic 60 mm Hg 01/20/2025 Height 5ft9in in 01/20/2025 Blood pressure systolic 128 mm Hg 01/20/2025 Weight 212 lbs 01/20/2025 BMI 31.3 kg/m2 01/20/2025 Encounters Encounter Location Date Provider Diagnosis [facility] [address] [place] [address] 04/14/2024 Mary Grossmanclement Type 2 diabetes mellitus with diabetic polyneuropathy E11.42 ; Contracture of toe of left foot M20.5X2 ; Tinea unguium B35.1 and Abscess of toe, left L02.[address] [address] 05/04/2024 Mary Grossmanclement Type 2 diabetes mellitus with diabetic polyneuropathy E11.42 ; Contracture of toe of left foot M20.5X2 ; Tinea unguium B35.1 and Neuropathic ulcer of left foot, limited to breakdown of skin L97.[address] [address] 07/15/2024 Mary Rea Type 2 diabetes mellitus with diabetic polyneuropathy E11.42 ; Contracture of toe of left foot M20.5X2 and Tinea unguium B35.[address] [address] 08/26/2024 Mary Rea Neurotrophic ulcer o f left foot limited to breakdown of skin L97.521 ; Xerosis of skin L85.3 and Type 2 diabetes mellitus with diabetic polyneuropathy E11.[address] [address] 10/12/2024 Mary Grossmana Type 1 diabetes mellitus with diabetic polyneuropathy E10.42 ; Atherosclerosis of artery of both lower extremities I70.203 ; Tinea unguium B35.1 and Neurotrophic ulcer of left foot limited to breakdown of skin L97.[address] [address] 12/06/2024 Mary Rea Neuropathic ulcer of left foot with fat layer exposed L97.522 ; Cellulitis of toe of right foot L03.031 ; Type 2 diabetes mellitus with diabetic polyneuropathy E11.42 ; Abscess of right foot L02.611 and Other hammer toe(s) (acquired), right foot M20.[address] [address] 12/13/2024 Mary Rea Type 2 diabetes mellitus with diabetic polyneuropathy E11.42 ; Cellulitis of toe of right foot L03.031 and Neuropathic ulcer of right foot with fat layer exposed L97.[address] [address] 01/04/2025 Mary Rea Cellulitis of toe of [...] and Tinea pedis of both feet B35.[address] [address] 01/20/2025 Mary Rea Neuropathic ulcer of right foot with fat layer exposed L97.512 ; Acute osteomyelitis of right foot M86.171 ; Type 1 diabetes mellitus with diabetic polyneuropathy E10.42 and Atherosclerosis of artery of both lower extremities I70.203 [facility] [address] [address] 12/05/2024 Mary Perica [facility] [address] [address] 12/06/2024 Mary Perica [facility] [address] [address] 01/04/2025 Mary Perica [facility] [address] [address] 01/04/2025 Mary Perica [facility] [address] [address] 01/20/2025 Mary Perica [facility] [address] [address] 01/20/2025 Mary Perica [facility] [address] [address] 01/20/2025 Mary Perica [facility] [address] [address] 02/24/2025 Mary Grossmana Assessments Encounter Date Diagnosis [...] X ray : Foot, right 3V 01/20/2025 61994-[id number] NAIL, 6 OR MORE 09/16/2021 79550-[id number] SKIN/TISSUE 10/25/2021 48139-[id number] SKIN/TISSUE 12/04/2022 59110-VGXVMTQ SKIN/TISSUE 12/11/2022 21138-GUMIWKK SKIN/TISSUE 09/16/2021 32103-XTRWESG SKIN/TISSUE 2020 28446-[id number] SKIN/TISSUE 02/11/2024 47724-RJRQ SKIN LESIONS, OVER 4 09/17/19 71674-WTPK SKIN LESIONS, OVER 4 11/28/19 23 [id number]-VDUMWDPT OF HEMATOMA/FLUID 023 Insurance Providers Payer Name Payer Address Payer Phone Subscriber Number Group Number Insured Name Patient Relationship to Insured Coverage Start Date Coverage End Date [facility] SCO Claims [address] [place] [address] [id number] Raheem Castro Self - patient is the insured Medical (General) History Medical History History ICD Code Kidney disease type II diabetes Surgical History Surgery Date(Month/Year) kidney transplant 10/2016 L leg surgery 09/09/21 amputation, toe 01/2023 amputation , toe 04/2023 Toe amputation 10/14/23 hammertoe, right foot 02/2024 Hospitalization History Reason Date(Month/[place] [facility] [place] bone [facility] of toe 04/2023 [facility] - Cut of piece of toe 01/2023
== END 2025-03-21 11:30 | disposition home or self-care (01) ==
LOC: HO.HSH 11:29
PROVIDERS: Visit Provider Internal Medicine
DX: M86.171 Other acute osteomyelitis, right ankle and foot (principal)
CPT/HCPCS: 36415; 80053; 82550

== ENCOUNTER 2025-03-28 11:45 | Outpatient (REF) | payer OTHER, SELFPAY ==
[2025-03-28 11:53] LABS: MANUAL DIFF FLAG NO
[2025-03-28 12:15] LABS: Hematocrit 50.4 % (42.0-52.0); Hemoglobin 15.9 g/dl (14.0-18.0); Imm Gran Abs Auto 0.12 X10*3/uL (0.00-0.03); Imm Gran Pct Auto 1.6 % (0.0-0.4); Lymphocytes Absolute Auto 2.0 X10*3/uL (1.2-4.9); Mean Corpuscular HGB Conc 31.5 g/dl (31.0-36.0); Mean Corpuscular Hemoglobin 27.6 pg (27.0-33.0); Mean Corpuscular Volume 87.3 fL (80.0-98.0); NRBC Abs Auto 0.000 X10*3/uL (0.0-0.012); NRBC Pct Auto 0.0 /100WBC (0.0-0.2); Platelet Count 161 X10*3/uL (160-400); Red Blood Count 5.77 X10*6/uL (4.60-5.80); White Blood Count 7.5 X10*3/uL (4.8-10.8)
[2025-03-28 13:03] LABS: Alanine Aminotransferase 27 U/L (0-40); Albumin Level 4.6 g/dL (3.5-5.0); Alkaline Phosphatase 133 U/L (39-117); Anion Gap 9 (12-20); Aspartate Amino Transferase 28 U/L (5-37); Blood Urea Nitrogen 17 mg/dL (9-16); Calcium 9.2 mg/dL (8.4-10.2); Carbon Dioxide 27 mmol/L (22-29); Chloride 109 mmol/L (96-108); Estimated Glomerular Filt Rate 42; Potassium 3.5 mmol/L (3.3-5.1); Sodium 141 mmol/L (135-145); Total Protein 7.8 g/dL (6.5-8.0)
== END 2025-03-28 11:46 | disposition home or self-care (01) ==
LOC: HO.LNP 11:45
PROVIDERS: Visit Provider Internal Medicine
DX: B99.9 Unspecified infectious disease (principal)
CPT/HCPCS: 80053; 82550; 85025; 86140

== ENCOUNTER 2025-03-29 10:40 | Outpatient (AMB) | payer OTHER, SELFPAY ==
--- OUTSIDE RECORDS SUMMARY | 2024-12-30 05:00 | XMS_ITS ---
Author Organization [facility] Address [address] [place] [address] Care Team Providers Care Teacher Preschool Name Role Phone Geovanni Pink MD Primary Care Provider Mary Canela [phone] Encounters Encounter Location Date Provider Diagnosis [facility] [address] [place] [address] 12/30/2024 Mary Rea Plan Of Treatment No Information Progress Notes * Raheem CASTRODOB:1970 ( 55 yo M)Acc No.[id number]:12/30/2024 Progress Note Patient: Raheem HUITRON Provider: Aquilino Rea DPM :1970 A ge:54 Y S ex:Male Date:12/30/2024 Address:[address] [place] [address], [facility] Pcp:Geovanni Pink MD Subjective: * Chief Complaints: [...] 12/30/2024 Generated for Printi ng/Faxing/eTransmitting on: 1 12:45 PM EDT
--- OUTSIDE RECORDS SUMMARY | 2025-02-24 06:30 | XMS_ITS ---
Author Organization [facility] Address [address] [place] [address] Care Team Providers Care Director Of Neighborhood Service Center Name Role Phone Geovanni Pink MD Primary Care Provider Mary Canela [phone] Encounters Encounter Location Date Provider Diagnosis [facility] [address] [place] [address] 02/24/2025 Mary Rea Plan Of Treatment No Information Progress Notes * Raheem CASTRODOB:1970 ( 55 yo M)Acc No.[id number]:02/24/2025 Progress Notes Patient: Raheem HUITRON Provider: Aquilino Rea DPM :1970 A ge:54 Y S ex:Male Date:02/24/2025 Address:[address] [place] [address], [facility] Pcp:Geovanni Pink MD Subjective: * Chief Complaints: [...] 02/24/2025 Generated for Printi ng/Faxing/eTransmitting on: 1 12:46 PM EDT
--- NOTE | 2025-03-29 11:01 | HO.NEPHOV ---
Vital Signs 03/29/25 11:02 Height 5 ft 9 in Weight 218 lb 2 oz BMI 32.2 BP 130/80 Blood Pressure Location Lt brachial Position Sitting Pulse 65 Pulse Source Pulse Oximeter Pulse Oximetry (%) 98 Oxygen Delivery Method Room Air Intake Visit Reasons: 2mon follow-up w/labs-Conf Upholstery Covers Inspector Required: No Accompanied by: Self / Same As Patient Allergies No Known Allergies Allergy (Verified 03/29/25 11:02) HPI Comments Details: Raheem Castro is 55 years with type 2 diabetes mellitus on insulin, chronic kidney disease s/p living donor renal transplant from who also has H/O treated [place] post transplant. He had his hammer toe fixed on Sep by Dr Aydee Diaz in [facility]. He denied any chills, nausea, vomiting, dizziness or palpitations. He denied any cardiopulmonary, gastrointestinal or genitourinary symptoms. Renal function is around baseline. His blood sugar is fair. There were no new other active complaints at the time of this office visit [facility] Medical History (Updated 02/16/25 @ 00:03 by Coreen Murrieta) CKD (chronic kidney disease) HTN (hypertension) PAD (peripheral artery disease) CKD (chronic kidney disease) stage 3, GFR 30-59 ml/min MSSA bacteremia Osteomyelitis of third toe of left foot S/P angiogram of extremity (10/08/22) Diabetic ulcer of right foot Osteomyelitis Wound of right foot Chronic right shoulder pain Multinodular goiter Testicular cancer Bleeding internal hemorrhoids [place]inoma Paresthesia and pain of extremity Type 2 diabetes mellitus with hyperglycemia, with long-term current use of insulin Type 2 diabetes mellitus with chronic kidney disease Hyperlipidemia Vaccination refused by patient Refused pneumococcal vaccination Anemia in stage 4 chronic kidney disease Acute proliferative glomerulonephritis Secondary hyperparathyroidism of renal origin Mixed dyslipidemia Peripheral vascular disease Carpal tunnel syndrome on left Diabetes mellitus with diabetic nephropathy, with long-term current use of insulin Osteomyelitis of left foot Diabetes mellitus with foot ulcer End-stage renal disease on hemodialysis Surgical History (Updated 03/29/25 @ 11:15 by Paulo Tellez MD) Kidney transplant recipient Renal transplant recipient History of amputation (01/19/23) Amputated toe of right foot (10/13/22) History of kidney transplant Family History Father Unknown family medical history Mother Diabetes mellitus HTN (hypertension) CVD (cardiovascular disease) History of CVA (cerebrovascular accident) Stroke Sister Diabetes mellitus Daughter No problems noted. Sister No problems noted. Sister No problems noted. Social History Household Members: Spouse and Children Housing: House Do you presently have visiting nurse or other home services: No Alcohol intake: never Patient Tobacco Use Status: Never used Tobacco e-Cigarette/Vaping Use: Never Used Second Hand Smoke Exposure: No Advance Directives Date on File: 01/16/23 service: No Current occupational status: disabled Current occupation: disability - kidney transplant. Left side dominant Current occupational exposures/hazards: No Cognitive needs: No Hearing needs: No Vision needs: No Review of Systems Const All systems reviewed & are unremarkable except as noted in HPI and below Physical Exam Vital Signs: Last Vital Signs Pulse 65 03/29/25 11:02 BP 130/80 03/29/25 11:02 Pulse Ox 98 03/29/25 11:02 Oxygen Delivery Method Room Air 03/29/25 11:02 BMI result Body Mass Index 32.2 Const General: comfortable and no acute distress Orientation/consciousness: patient oriented x3 HEENT Head: Yes normocephalic Mouth: Normal oral and palatal mucosa present Eyes EOM: EOMs intact bilaterally Neck Neck: Yes supple Resp Auscultation: clear to auscultation bilaterally Cardio Jugular venous distension: no JVD Rate: regular rate GI Palpation (GI): Soft to palpation Auscultation: normal bowel sounds General: Yes no CVA tenderness Back/Spine/Pelvis Back: no CVA tenderness Skin General skin exam: no rashes or lesions noted Neuro General: patient oriented x3 and moves all extremities Extrem General: Yes no pedal edema Results Reviewed Nephrology Results: Hgb, (14.0-18.0) 15.9 g/dl 03/28/25 WBC, (4.8-10.8) 7.5 X10*3/uL 03/28/25 Plt Count, (160-400) 161 X10*3/uL 03/28/25 Sodium, (135-145) 141 mmol/L 03/28/25 Potassium, (3.3-5.1) 3.5 mmol/L 03/28/25 Chloride, (96-108) 109 mmol/L H 03/28/25 Carbon Dioxide, (22-29) 27 mmol/L 03/28/25 BUN, (9-16) 17 mg/dL H 03/28/25 Creatinine, (0.5-1.4) 1.72 mg/dL H 03/28/25 Calcium, (8.4-10.2) 9.2 mg/dL 03/28/25 Assessment & Plan Assessment & Plan (1) Kidney transplant recipient: Comment: Cr close to baseline Code(s): Z94.0 - Kidney transplant status Category: Surgical (2) HTN (hypertension): Code(s): I10 - Essential (primary) hypertension Category: Medical Qualifiers: Hypertension type: renovascular hypertension Qualified Code(s): I15.0 - Renovascular hypertension Plan Transplant renal function had been at baseline Serum creatinine at baseline C/W current dose of MMF C/W Everolimus to 1 mg AM and 2 mg PM Needs better BS control @ home No NSAID's and good hydration Already on SGLT 2 i; May need to increase Rayaldee soon C/W rest of current management for now Needs annual dermatology visit All questions answered Labs ordered; F/U given Orders: Orders Complete Blood Count Auto Diff 2 Months Z94.0 - Kidney transplant status Electrolytes 2 Months Z94.0 - Kidney transplant status Other Ref Test - Misc 2 Months Z94.0 - Kidney transplant status Magnesium 2 Months Z94.0 - Kidney transplant status Aspartate Amino Transferase 2 Months Z94.0 - Kidney transplant status Parathyroid Hormone Intact 2 Months Z94.0 - Kidney transplant status Vitamin D 25-OH Total 2 Months Z94.0 - Kidney transplant status Creatinine 2 Months Z94.0 - Kidney transplant status Blood Urea Nitrogen 2 Months Z94.0 - Kidney transplant status Calcium 2 Months Z94.0 - Kidney transplant status Phosphorus 2 Months Z94.0 - Kidney transplant status Alanine Aminotransferase 2 Months Z94.0 - Kidney transplant status Hemoglobin A1c 2 Months Z94.0 - Kidney transplant status Coding Level of Care Code Est Pt Level 4 (63896) Diagnoses Kidney transplant recipient Z94.0 Renovascular hypertension I15.0 Hypertension type: renovascular hypertension
[2025-03-29 11:02] VITALS: BP 130/80; PULSE 65; O2SAT 98; BMI 32.2
--- OUTSIDE RECORDS SUMMARY | 2025-03-29 12:46 | XMS_ITS | Clinical Summary ---
Author Organization Patient Business Ser [facility] Address [address] [place] [address] Care Team Providers Care Centrifugal Station Operator Name Role Phone Lianne Manuel MD [...] age to complete this topic Care Teams Centrifugal Station Operator Relationship Specialty Start Date End Date Lianne Manuel MD [address] [place] [address] PCP - General Internal Medicine 01/30/22
--- OUTSIDE RECORDS SUMMARY | 2025-03-29 12:46 | XMS_ITS | Clinical Summary ---
Author Organization [facility] Address [address] [facility] [address] [place] [address] Phone Care Team Providers Care Machine Tool Operator Name Role Phone Geovanni Pink MD Primary Care Provider +1- [phone] Allergies No known active allergies Medications amLODIPine [...] Problem Noted Date Diagnosed Date Resolved Date Hammer toe 11/20/2021 12/11/2021 Acute osteomyelitis of ankle and/or foot 11/20/2021 12/11/2021 Atherosclerosis of [place] ar teries of the extremities 11/20/2021 12/11/2021 [...] PM EDT Performed at: 01 - [facility] [address] [id number] Web Designer: Debora Brian MD, Phone: [phone] Skyler Banda MD LAB BLOOD ORDERABLES Final Resu lt [facility] from Last 3 Months or Most Recently Relevant to Health Maintenance Insurance [facility] ([id number] [facility] Care Teams Machine Tool Operator Relationship Specialty Start Date End Date Geovanni Pink MD [address] [place] [address] PCP - General Family Medicine 04/23/23
--- OUTSIDE RECORDS SUMMARY | 2025-03-29 12:46 | XMS_ITS | Clinical Summary ---
Author Organization [facility] Address [address] [place] [address] Care Team Providers Care Taxation Consultant Name Role Phone Lianne Manuel MD Primary [...] MGD MEDICARE OUT OF NETWORK JAYLEN FARIA [id number] * Guarantor: [employer]RA[employer]SE DEPT Account Type Relation to Patient Date of Phone Billing Address Client/Submitter Employer Care Teams Taxation Consultant Relationship Specialty Start Date End Date Lianne Manuel MD [address] [place] [address] PCP - General Internal Medicine 07/10/22
--- OUTSIDE RECORDS SUMMARY | 2025-03-29 12:46 | XMS_ITS | Clinical Summary ---
Author Organization [facility] Address [address] [facility] [address] [place] [address] Phone Care Team Providers Care Puppet Engineer Name Role Phone Geovanni Pink MD [...] (2 of 2 - PCV) 03/19/2017 03/19/2016 RSV VACCINE (1 - Risk 50-74 years 1-dose series) 2021 INFLUENZA VACCINE (#1) 2025 COVID-19 VACCINE ( [...] Medical Devices Not on file Insurance [facility] ONE CARE MEDICARE REPLACEMENT [facility] MEDICARE REPLACEMENT [facility] MEDICARE REPLACEMENT [facility] MEDICARE [facility]PLACEMENT [facility] C[facility] MEDICARE REPLACEMENT [facility] MEDICARE REPLACEMENT Care Teams Puppet Engineer Relationship Specialty Start Date End Date Geovanni Pink MD [address] [place] [address] PCP - General Family Medicine 11/02/23 Additional Source Comments The information contained in this document represents components of the legal health record. It is not the complete legal health record.[facility]
--- OUTSIDE RECORDS SUMMARY | 2025-03-29 12:46 | XMS_ITS | Patient Health Record ---
Author Organization [facility] Address [address] [place] [address] Care Team Providers Care Deposition Reporter Name Role Phone Geovanni Pink MD Primary Care Provider Mary Canela Unavailable [phone] Allergies No Known Allergies Results Component Value [...] Polyneuropathy due to diabetes mellitus type I (080146140) Type 1 diabetes mellitus with diabetic polyneuropathy (E10.42) Active confirmed Problem Bilateral atherosclerosis of arteries of lower limbs (8245086928461101 7) Atherosclerosis of artery of both lower extremities (I70.203) Active confirmed Problem Acute osteomyelitis of right foot (5804412019344386 ) Acute osteomyelitis of right foot (M86.171) Active confirmed Possible Vital Signs Blood pressure diastolic 60 mm Hg 01/20/2025 Height 5ft9in in 01/20/2025 Blood pressure systolic 128 mm Hg 01/20/2025 Weight 212 lbs 01/20/2025 BMI 31.3 kg/m2 01/20/2025 Encounters Encounter Location Date Provider Diagnosis [facility] [address] [place] [address] 04/14/2024 Mary Grossmanclement Type 2 diabetes mellitus with diabetic polyneuropathy E11.42 ; Contracture of toe of left foot M20.5X2 ; Tinea unguium B35.1 and Abscess of toe, left L02.[address] [address] 05/04/2024 Mary Grossmanclement Type 2 diabetes mellitus with diabetic polyneuropathy E11.42 ; Contracture of toe of left foot M20.5X2 ; Tinea unguium B35.1 and Neuropathic ulcer of left foot, limited to breakdown of skin L97.[address] [address] 07/15/2024 Mary Rea Type 2 diabetes mellitus with diabetic polyneuropathy E11.42 ; Contracture of toe of left foot M20.5X2 and Tinea unguium B35.[address] [address] 08/26/2024 Mary Rea Neurotrophic ulcer o f left foot limited to breakdown of skin L97.521 ; Xerosis of skin L85.3 and Type 2 diabetes mellitus with diabetic polyneuropathy E11.[address] [address] 10/12/2024 Mary Grossmana Type 1 diabetes mellitus with diabetic polyneuropathy E10.42 ; Atherosclerosis of artery of both lower extremities I70.203 ; Tinea unguium B35.1 and Neurotrophic ulcer of left foot limited to breakdown of skin L97.[address] [address] 12/06/2024 Mary Rea Neuropathic ulcer of left foot with fat layer exposed L97.522 ; Cellulitis of toe of right foot L03.031 ; Type 2 diabetes mellitus with diabetic polyneuropathy E11.42 ; Abscess of right foot L02.611 and Other hammer toe(s) (acquired), right foot M20.[address] [address] 12/13/2024 Mary Rea Type 2 diabetes mellitus with diabetic polyneuropathy E11.42 ; Cellulitis of toe of right foot L03.031 and Neuropathic ulcer of right foot with fat layer exposed L97.[address] [address] 01/04/2025 Mary Rea Cellulitis of toe of [...] and Tinea pedis of both feet B35.[address] [address] 01/20/2025 Mary Rea Neuropathic ulcer of right foot with fat layer exposed L97.512 ; Acute osteomyelitis of right foot M86.171 ; Type 1 diabetes mellitus with diabetic polyneuropathy E10.42 and Atherosclerosis of artery of both lower extremities I70.203 [facility] [address] [address] 12/05/2024 Mary Perica [facility] [address] [address] 12/06/2024 Mary Perica [facility] [address] [address] 01/04/2025 Mary Perica [facility] [address] [address] 01/04/2025 Mary Perica [facility] [address] [address] 01/20/2025 Mary Perica [facility] [address] [address] 01/20/2025 Mary Perica [facility] [address] [address] 01/20/2025 Mary Perica [facility] [address] [address] 02/24/2025 Mary Grossmana Assessments Encounter Date Diagnosis [...] X ray : Foot, right 3V 01/20/2025 65158-[id number] NAIL, 6 OR MORE 09/16/2021 46667-[id number] SKIN/TISSUE 10/25/2021 09790-PFIOWTP SKIN/TISSUE 12/04/2022 67770-PWSWVGP SKIN/TISSUE 12/11/2022 21151-DVGKJVT SKIN/TISSUE 09/16/2021 37181-CCSLHPO SKIN/TISSUE 2020 41187-JJTXQQV SKIN/TISSUE 02/11/2024 31263-WOYQ SKIN LESIONS, OVER 4 09/17/19 56709-TTGT SKIN LESIONS, OVER 4 11/28/19 23 38667-TTPQEZWD OF HEMATOMA/FLUID 023 Insurance Providers Payer Name Payer Address Payer Phone Subscriber Number Group Number Insured Name Patient Relationship to Insured Coverage Start Date Coverage End Date [facility] SCO Claims [address] [place] [address] [id number] Raheem Castro Self - patient is the insured Medical (General) History Medical History History ICD Code Kidney disease type II diabetes Surgical History Surgery Date(Month/Year) kidney transplant 10/2016 L leg surgery 09/09/21 amputation, toe 01/2023 amputation , toe 04/2023 Toe amputation 10/14/23 hammertoe, right foot 02/2024 Hospitalization History Reason Date(Month/Year) [facility] [place]- Infection in bone of toe [facility]- Cut [facility] piece of toe 04/2023 [facility] - Cut of piece of toe 01/2023
== END 2025-03-29 11:20 | disposition home or self-care (01) ==
LOC: HO.HKA 10:41
PROVIDERS: PCP Family Medicine; Visit Provider Internal Medicine Nephrology
DX: Z94.0 Kidney transplant status (principal); I15.0 Renovascular hypertension
CPT/HCPCS: 99214

== ENCOUNTER → 2025-03-29 10:40 | Outpatient (BNVA) | payer OTHER, SELFPAY | PROVIDERS: PCP Family Medicine; Visit Provider Internal Medicine Nephrology | DX: I15.0 Renovascular hypertension (principal); Z94.0 Kidney transplant status | CPT/HCPCS: 99212 ==

== ENCOUNTER 2025-03-31 10:24 | Outpatient (AMB) | payer OTHER, SELFPAY ==
--- OUTSIDE RECORDS SUMMARY | 2024-12-30 05:00 | XMS_ITS ---
Author Organization [facility] Address [address] [place] [address] Care Team Providers Care Automobile Body Repairer Helper Name Role Phone Geovanni Pink MD Primary Care Provider Mary Canela [phone] Encounters Encounter Location Date Provider Diagnosis [facility] [address] [place] [address] 12/30/2024 Mary Rea Plan Of Treatment No Information Progress Notes * Raheem CASTRODOB:1970 ( 55 yo M)Acc No.[id number]:12/30/2024 Progress Note Patient: Raheem HUITRON Provider: Aquilnio Rea DPM :1970 A ge:54 Y S ex:Male Date:12/30/2024 Address:[address] [place] [address], [facility] Pcp:Geovanni Pink MD Subjective: * Chief Complaints: [...] 12/30/2024 Generated for Printi ng/Faxing/eTransmitting on: 1 12:27 PM EDT
--- OUTSIDE RECORDS SUMMARY | 2025-02-24 06:30 | XMS_ITS ---
Author Organization [facility] Address [address] [place] [address] Care Team Providers Care Thermit Welding Machine Operator Name Role Phone Geovanni Pink MD Primary Care Provider Mary Canela [phone] Encounters Encounter Location Date Provider Diagnosis [facility] [address] [place] [address] 02/24/2025 Mary Rea Plan Of Treatment No Information Progress Notes * Raheem CASTRODOB:1970 ( 55 yo M)Acc No.[id number]:02/24/2025 Progress Notes Patient: Raheem HUITRON Provider: Aquilino Rea DPM :1970 A ge:54 Y S ex:Male Date:02/24/2025 Address:[address] [place] [address], [facility] Pcp:Geovanni Pink MD Subjective: * Chief Complaints: [...] Rea DPM Date: 0 02/24/2025 Generated for Printi ng/Faxing/eTransmitting on: 1 12:29 PM EDT
--- NOTE | 2025-03-31 10:30 | MHC.OFFVIS ---
Vital Signs 03/31/25 10:52 Height 5 ft 9 in Weight 221 lb BMI 32.6 Pulse 76 Pulse Source Pulse Oximeter Pulse Oximetry (%) 99 Oxygen Delivery Method Room Air Intake Visit Reasons: F/U,Picc Line Allergies No Known Allergies Allergy (Verified 03/31/25 10:53) HPI Comments Details: History of Present Illness The patient is a 55-year-old male presenting for follow-up regarding a right foot wound diagnosed as osteomyelitis. Previously, he completed treatment with antibiotics, namely daptomycin, and is now seeing improvement with ongoing wound care. The patient uses plasma for wound care and notes satisfactory progress in healing, without current complaints or symptoms. Review of Systems - General: Denies fevers, chills. - Musculoskeletal: Reports right foot wound healing well. - Psychiatric: Denies current depressive symptoms. Physical Exam - Vitals- Stable. - Pulmonary- Lungs clear bilaterally. - Cardiovascular- Heart rate regular rhythm. - Musculoskeletal- Right foot appears to be improving. Results Plan Patient was informed and verbally consented to the use of an ambient scribe for clinic note documentation during this visit. 1. Osteomyelitis, unspecified M86.9 HCC 39 The patient reports improvement in his right foot condition with the application of plasma . He completed treatment with daptomycin. No new antibiotics are prescribed due to healing progression. The patient will watch for recurrence signs and visit as needed. Discussion Notes During the visit, I reviewed the patient's right foot condition, noting significant improvement in healing after completing daptomycin. No further antibiotic treatment is necessary currently. The patient is comfortable with ongoing wound care and plasma application, which he feels is effective. I advised monitoring for any signs of recurrence and seeking medical advice if symptoms reappear. We did not schedule a definitive follow-up appointment but agreed he should return if concerns arise. Medical Decision Making The patient's right foot osteomyelitis shows satisfactory healing, indicating a successful response to daptomycin and wound care management. Without current symptoms or complaints, the choice not to continue oral antibiotics aligns with our goal of preventing over-treatment. Monitoring the wound for recurrence remains a priority, and we discussed essential steps to take should symptoms return. Patient Instructions - Keep monitoring the wound for any changes or signs of recurrence. - Continue using plasma as part of wound care. - Seek medical advice if the wound exhibits new symptoms or does not continue to improve. - Follow up as needed without a specific appointment scheduled. [facility] Medical History (Updated 02/16/25 @ 00:03 by Coreen Murrieta) CKD (chronic kidney disease) HTN (hypertension) PAD (peripheral artery disease) CKD (chronic kidney disease) stage 3, GFR 30-59 ml/min MSSA bacteremia Osteomyelitis of third toe of left foot S/P angiogram of extremity (10/08/22) Diabetic ulcer of right foot Osteomyelitis Wound of right foot Chronic right shoulder pain Multinodular goiter Testicular cancer Bleeding internal hemorrhoids Seminoma Paresthesia and pain of extremity Type 2 diabetes mellitus with hyperglycemia, with long-term current use of insulin Type 2 diabetes mellitus with chronic kidney disease Hyperlipidemia Vaccination refused by patient Refused pneumococcal vaccination Anemia in stage 4 chronic kidney disease Acute proliferative glomerulonephritis Secondary hyperparathyroidism of renal origin Mixed dyslipidemia Peripheral vascular disease Carpal tunnel syndrome on left Diabetes mellitus with diabetic nephropathy, with long-term current use of insulin Osteomyelitis of left foot Diabetes mellitus with foot ulcer End-stage renal disease on hemodialysis Surgical History (Updated 03/29/25 @ 11:15 by Paulo Tellez MD) Kidney transplant recipient Renal transplant recipient History of amputation (01/19/23) Amputated toe of right foot (10/13/22) History of kidney transplant Family History Father Unknown family medical history Mother Diabetes mellitus HTN (hypertension) CVD (cardiovascular disease) History of CVA (cerebrovascular accident) Stroke Sister Diabetes mellitus Daughter No problems noted. Sister No problems noted. Sister No problems noted. Social History Household Members: Spouse and Children Housing: House Do you presently have visiting nurse or other home services: No Alcohol intake: never Patient Tobacco Use Status: Never used Tobacco e-Cigarette/Vaping Use: Never Used Second Hand Smoke Exposure: No Advance Directives Date on File: 01/16/23 service: No Current occupational status: disabled Current occupation: disability - kidney transplant. Left side dominant Current occupational exposures/hazards: No Cognitive needs: No Hearing needs: No Vision needs: No Physical Exam Exam Exam: Vital Signs: Last Vital Signs Pulse 76 03/31/25 10:52 Pulse Ox 99 03/31/25 10:52 Oxygen Delivery Method Room Air 03/31/25 10:52 BMI result Body Mass Index 32.6 Assessment & Plan Assessment & Plan (1) Right foot ulcer: Code(s): L97.519 - Non-pressure chronic ulcer of other part of right foot with unspecified severity Category: Medical Plan: na Orders: Orders IR cvc remove any age Today L97.519 - Non-pressure chronic ulcer of other part of right foot with unspecified severity Coding Level of Care Code Est Pt Level 3 (94010) Diagnoses Right foot ulcer L97.519
[2025-03-31 10:52] VITALS: PULSE 76; O2SAT 99; BMI 32.6
--- OUTSIDE RECORDS SUMMARY | 2025-03-31 12:28 | XMS_ITS | Patient Health Record ---
[facility] Address [address] [place] [address] Care Team Providers Care Metal Bench Patternmaker Name Role Phone Geovanni Pink MD Primary Care Provider Mary Canela Unavailable [phone] Allergies No Known Allergies Results Component Value [...] Farxiga 10 MG TAKE 1 TABLET BY JOANTHON TH EVERY DAY IN THE MORNING FOR [...] Polyneuropathy due to diabetes mellitus type I (373356267) Type 1 diabetes mellitus with diabetic polyneuropathy (E10.42) Active confirmed Problem Bilateral atherosclerosis of arteries of lower limbs (9609942545591332 7) Atherosclerosis of artery of both lower extremities (I70.203) Active confirmed Problem Acute osteomyelitis of right foot (6926190779195627 ) Acute osteomyelitis of right foot (M86.171) Active confirmed Possible Vital Signs Blood pressure diastolic 60 mm Hg 01/20/2025 Height 5ft9in in 01/20/2025 Blood pressure systolic 128 mm Hg 01/20/2025 Weight 212 lbs 01/20/2025 BMI 31.3 kg/m2 01/20/2025 Encounters Encounter Location Date Provider Diagnosis [facility] [address] [place] [address] 04/14/2024 Mary Grossmanclement Type 2 diabetes mellitus with diabetic polyneuropathy E11.42 ; Contracture of toe of left foot M20.5X2 ; Tinea unguium B35.1 and Abscess of toe, left L02.[address] [address] 05/04/2024 Mary Grossmanclement Type 2 diabetes mellitus with diabetic polyneuropathy E11.42 ; Contracture of toe of left foot M20.5X2 ; Tinea unguium B35.1 and Neuropathic ulcer of left foot, limited to breakdown of skin L97.[address] [address] 07/15/2024 Mary Rea Type 2 diabetes mellitus with diabetic polyneuropathy E11.42 ; Contracture of toe of left foot M20.5X2 and Tinea unguium B35.[address] [address] 08/26/2024 Mary Rea Neurotrophic ulcer o f left foot limited to breakdown of skin L97.521 ; Xerosis of skin L85.3 and Type 2 diabetes mellitus with diabetic polyneuropathy E11.[address] [address] 10/12/2024 Mary Grossmana Type 1 diabetes mellitus with diabetic polyneuropathy E10.42 ; Atherosclerosis of artery of both lower extremities I70.203 ; Tinea unguium B35.1 and Neurotrophic ulcer of left foot limited to breakdown of skin L97.[address] [address] 12/06/2024 Mary Rea Neuropathic ulcer of left foot with fat layer exposed L97.522 ; Cellulitis of toe of right foot L03.031 ; Type 2 diabetes mellitus with diabetic polyneuropathy E11.42 ; Abscess of right foot L02.611 and Other hammer toe(s) (acquired), right foot M20.[address] [address] 12/13/2024 Mary Rea Type 2 diabetes mellitus with diabetic polyneuropathy E11.42 ; Cellulitis of toe of right foot L03.031 and Neuropathic ulcer of right foot with fat layer exposed L97.[address] [address] 01/04/2025 Mary Rea Cellulitis of toe of [...] and Tinea pedis of both feet B35.[address] [address] 01/20/2025 Mary Rea Neuropathic ulcer of right foot with fat layer exposed L97.512 ; Acute osteomyelitis of right foot M86.171 ; Type 1 diabetes mellitus with diabetic polyneuropathy E10.42 and Atherosclerosis of artery of both lower extremities I70.203 [facility] [address] [address] 12/05/2024 Mary Perica [facility] [address] [address] 12/06/2024 Mary Perica [facility] [address] [address] 01/04/2025 Mary Perica [facility] [address] [address] 01/04/2025 Mary Perica [facility] [address] [address] 01/20/2025 Mary Perica [facility] [address] [address] 01/20/2025 Mary Perica [facility] [address] [address] 01/20/2025 Mary Perica [facility] [address] [address] 02/24/2025 Mary Grossmana Assessments Encounter Date Diagnosis [...] X ray : Foot, right 3V 01/20/2025 [id number] NAIL, 6 OR MORE 09/16/2021 [id number] SKIN/TISSUE 10/25/2021 [id number] SKIN/TISSUE 12/04/2022 36111-[id number] SKIN/TISSUE 12/11/2022 77162-[id number] SKIN/TISSUE 09/16/2021 [id number] SKIN/TISSUE 2020 12400-[id number] SKIN/TISSUE 02/11/2024 [id number] SKIN LESIONS, OVER 4 09/17/19 20224-DBCV SKIN LESIONS, OVER 4 11/28/19 23 [id number]-[id number] OF HEMATOMA/FLUID 023 Insurance Providers Payer Name Payer Address Payer Phone Subscriber Number Group Number Insured Name Patient Relationship to Insured Coverage Start Date Coverage End Date [facility] [employer] Claims [address] [place] [id number] Raheem Castro Self - patient is the insured Medical (General) History Medical History History ICD Code Kidney disease type II diabetes Surgical History Surgery Date(Month/Year) kidney transplant 10/2016 L leg surgery 09/09/21 amputation, toe 01/2023 amputation , toe 04/2023 Toe amputation 10/14/23 hammertoe, right foot 02/2024 Hospitalization History Reason Date(Month/Year) [facility] [place]- fever- Infection in bone of toe [facility]- Cut of piece of toe 04/2023 [facility] - Cut of piece of toe 01/2023
--- OUTSIDE RECORDS SUMMARY | 2025-03-31 12:28 | XMS_ITS | Clinical Summary ---
Author Organization [facility] Address [address] [facility] [address] [place] [address] Phone Care Team Providers Care Press Set Up Name Role Phone Geovanni Pink MD Primary Care Provider [phone] Allergies No known active allergies Medications amLODIPine [...] 3 Active Eliquis 5 MG tabletIndication s:Other group home current drug therapy Take 1 tablet [...] and/or foot 11/20/2021 12/11/2021 Atherosclerosis of [place] of the extremities 11/20/2021 12/11/2021 [...] PM EDT Performed at: 01 - [facility] [address] [id number] Eyelet Cutter: Debora Brian MD, Phone: [phone] Skyler Banda MD LAB BLOOD ORDERABLES Final Resu lt [facility] from Last 3 Months or Most Recently Relevant to Health Maintenance Insurance [facility] ([id number] [facility] Care Teams Press Set Up Relationship Specialty Start Date End Date Geovanni Pink MD [address] [place] [address] PCP - General Family Medicine 04/23/23
--- OUTSIDE RECORDS SUMMARY | 2025-03-31 12:28 | XMS_ITS | Clinical Summary ---
Author Organization Patient Business Ser [facility] Address [address] [place] [address] Care Team Providers Care Gas Operations Analyst Name Role Phone Lianne Manuel MD Primary [...] age to complete this topic Care Teams Gas Operations Analyst Relationship Specialty Start Date End Date Lianne Manuel MD [address] [place] [address] PCP - General Internal Medicine 01/30/22
--- OUTSIDE RECORDS SUMMARY | 2025-03-31 12:29 | XMS_ITS | Clinical Summary ---
Author Organization [facility] Address [address] [place] [address] Care Team Providers Care Breast Surgeon Name Role Phone Lianne Manuel MD [...] MGD MEDICARE OUT OF NETWORK [place] [id number] * Guarantor: [employer] Account Type Relation to Patient Date of Phone Billing Address Client/Submitter Employer Care Teams Breast Surgeon Relationship Specialty Start Date End Date Lianne Manuel MD [address] [place] [address] PCP - General Internal Medicine 07/10/22
--- OUTSIDE RECORDS SUMMARY | 2025-03-31 12:29 | XMS_ITS | Clinical Summary ---
Author Organization [facility] Address [address] [facility] [address] [place] [address] Phone Care Team Providers Care Clean Room Assembler Name Role Phone Geovanni Pink MD Primary [...] [facility] ONE CARE MEDICARE REPLAC[facility] RE[facility] MEDICARE REPLACEMENT [facility] CARE MEDICARE [facility]PLAC[facility] MEDICARE REPLACEMENT Care Teams Clean Room Assembler Relationship Specialty Start Date End Date Geovanni Pink MD [address] [place] [address] PCP - General Family Medicine 11/02/23 Additional Source Comments The information contained in this document represents components of the legal health record. It is not the complete legal health record.[facility]
== END 2025-03-31 11:03 | disposition home or self-care (01) ==
LOC: HO.HID 10:24
PROVIDERS: PCP Family Medicine; Visit Provider Internal Medicine
DX: L97.519 Non-pressure chronic ulcer of other part of right foot with unspecified severity (principal)
CPT/HCPCS: 99213

== ENCOUNTER → 2025-03-31 10:24 | Outpatient (BNVA) | payer OTHER, SELFPAY | PROVIDERS: PCP Family Medicine; Visit Provider Internal Medicine | DX: L97.511 Non-pressure chronic ulcer of other part of right foot limited to breakdown of skin (principal); M86.9 Osteomyelitis, unspecified | CPT/HCPCS: 99212 ==

== ENCOUNTER → 2025-04-25 23:59 | Outpatient (BNV) | payer OTHER, SELFPAY | PROVIDERS: PCP Family Medicine; Visit Provider Family Medicine | DX: E10.69 Type 1 diabetes mellitus with other specified complication (principal) | CPT/HCPCS: G0180 ==

== ENCOUNTER 2025-05-03 08:06 | Outpatient (AMB) | payer OTHER, SELFPAY ==
--- OUTSIDE RECORDS SUMMARY | 2024-12-30 04:00 | XMS_ITS ---
Author Organization [facility] Address [address] [place] [address] Care Team Providers Care Wood Handler Name Role Phone Joesph CHEUNG, Geovanni Primary Care Provider Mary Canela Unavailable [phone] Encounters Encounter Location Date Provider Diagnosis [facility] [address] [place] [address] 12/30/2024 Mary Rea Plan Of Treatment Next Appt Details Provider Name:Matias snowden, 05/08/2025 09:00:00 AM, [address] [place] [address], [phone], Provider Name:Mary vaughan, 07/06/2025 02:30:00 PM, [address] [place] [address], [address], Progress Notes * Raheem CASTRODOB:1970 ( 55 yo M)Acc No.[id number]:12/30/2024 Progress Note Patient: Alexander HUERTA Raheem Provider: Aquilino Rea DPM :1970 A ge:54 Y S ex:Male Date:12/30/2024 Address:[address] [place] [address], [place] Pcp:Geovanni Pink MD Subjective: * Chief Complaints: [...] DPM Date: 0 12/30/2024 Generated for Deedee Wray/Ric on: 07/03/2024 03:34 PM EST
--- OUTSIDE RECORDS SUMMARY | 2025-02-24 05:30 | XMS_ITS ---
Author Organization [facility] Address [address] [place] [address] Care Team Providers Care Curing Machine Operator Name Role Phone Joesph CHEUNG, Geovanni Primary Care Provider Mary Canela Unavailable [phone] Encounters Encounter Location Date Provider Diagnosis [facility] [address] [place] [address] 02/24/2025 Mary Rea Plan Of Treatment Next Appt Details Provider Name:Matias snowden, 05/08/2025 09:00:00 AM, [address] [place] [address], [address], Provider Name:Mary vaughan, 07/06/2025 02:30:00 PM, [address] [place] [address], [address], Progress Notes * Raheem CASTRODOB:1970 ( 55 yo M)Acc No.[id number]:02/24/2025 Progress Notes Patient: Alexander HUERTA Raheem Provider: Aquilino Rea DPM :1970 A ge:54 Y S ex:Male Date:02/24/2025 Address:[address] [place] [address], [id number] Pcp:Geovanni Pink MD Subjective: * Chief Complaints: * * Medical History: Objective: * Vitals: Assessment: Plan: * Treatment: * Images: * The named appointment provid er may or may not be the originator of this progress note, and it is not deemed complete until electronically signed by the appointment provider. Sign off status: Pending * Provider: Aquilino Rea DPM Date: 0 02/24/2025 Generated for Deedee Wray/Ric on: 07/03/2024 03:34 PM EST
--- NOTE | 2025-05-03 08:17 | A.OFFPC_ITS ---
Vital Signs 05/03/25 08:24 Height 5 ft 9 in Weight 218 lb BMI 32.2 BP 110/60 Blood Pressure Location Lt brachial Position Sitting Respiration 16 Pulse 69 Pulse Source Pulse Oximeter Temp 98.3 F Temp Source Temporal Artery Scan Pulse Oximetry (%) 99 Oxygen Delivery Method Room Air Intake Visit Reasons: f/u HTN, diabetes, chronic conditions Intake Note: Raheem presents in the office today for a follow up to hypertension, diabetes and other chronic conditions. Food Equipment Service Technician Required: No Food Equipment Service Technician Name: Patient does not need. Allergies No Known Allergies Allergy (Verified 05/03/25 08:22) Medication List - Last Reconciled 05/03/25 by Geovanni Pink MD alcohol swabs 1 pad topical QID 90 days amlodipine 10 mg PO DAILY 90 days apixaban (Eliquis) 5 mg PO BID calcifediol ER (Rayaldee) 30 mcg PO BEDTIME dapagliflozin propanediol 10 mg PO QAM 90 days diabetic supplies, Newsercellan. DIABETIC SHOES everolimus (immunosuppressive) 2 mg (2 x 1 mg) PO BID insulin aspart U-100 (Novolog FlexPen U-100 Insulin aspart) 4 units subcut TIDAC insulin glargine (Lantus Solostar U-100 Insulin) 30 units (0.3 mL) subcut BEDTIME 30 days lancets (FreeStyle Lancets) As directed mycophenolate sodium 540 mg (3 x 180 mg) PO BID pen needle, diabetic USE ONE FOUR TIMES A DAY NS rosuvastatin 10 mg PO BEDTIME Tobacco use date assessed: 05/03/25 Dental Screening Dental Screen Date: 05/03/25 Did you have a dental visit in the last 12 months?: No Did you have a dental problem in the last 6 months where you did not have access to dental care?: No Was dental information given to patient?: Patient declined [facility] Medical History (Updated 05/03/25 @ 09:03 by Geovanni Pink MD) CKD (chronic kidney disease) HTN (hypertension) PAD (peripheral artery disease) CKD (chronic kidney disease) stage 3, GFR 30-59 ml/min MSSA bacteremia Osteomyelitis of third toe of left foot S/P angiogram of extremity (10/08/22) Diabetic ulcer of right foot Osteomyelitis Wound of right foot Chronic right shoulder pain Multinodular goiter Testicular cancer Bleeding internal hemorrhoids Seminoma Paresthesia and pain of extremity Type 2 diabetes mellitus with hyperglycemia, with long-term current use of insulin Type 2 diabetes mellitus with chronic kidney disease Hyperlipidemia Vaccination refused by patient Refused pneumococcal vaccination Anemia in stage 4 chronic kidney disease Acute proliferative glomerulonephritis Secondary hyperparathyroidism of renal origin Mixed dyslipidemia Peripheral vascular disease Carpal tunnel syndrome on left Diabetes mellitus with diabetic nephropathy, with long-term current use of insulin Osteomyelitis of left foot Diabetes mellitus with foot ulcer End-stage renal disease on hemodialysis Surgical History (Updated 03/29/25 @ 11:15 by Paulo Tellez MD) Kidney transplant recipient Renal transplant recipient History of amputation (01/19/23) Amputated toe of right foot (10/13/22) History of kidney transplant Family History Father Unknown family medical history Mother Diabetes mellitus HTN (hypertension) CVD (cardiovascular disease) History of CVA (cerebrovascular accident) Stroke Sister Diabetes mellitus Daughter No problems noted. Sister No problems noted. Sister No problems noted. Social History (Updated 05/03/25 @ 08:24 by Kassandra Martinez CMA) Household Members: Spouse and Children Housing: House Do you presently have visiting nurse or other home services: No Alcohol intake: never Patient Tobacco Use Status: Never used Tobacco e-Cigarette/Vaping Use: Never Used Second Hand Smoke Exposure: No Use of substances other than those prescribed or required for medical reasons: No Advance Directives Date on File: 01/16/23 service: No Current occupational status: disabled Current occupation: disability - kidney transplant. Left side dominant Current occupational exposures/hazards: No Cognitive needs: No Hearing needs: No Vision needs: No Questionnaire Thrive Questionnaire Date Thrive assessed: 06/24/24 I am a: Patient What is your living situation today?: I have a steady place to live Within the past 12 months, did the food you bought not last and you didn't have the money to get more?: I choose not to answer this question Within the past 12 months, did you worry whether your food would run out before you got money to buy more?: I choose not to answer this question Do you have trouble paying for medicines?: No Do you have trouble getting transportation to medical appointments?: No Do you have trouble paying your heating and electricity bill?: No Do you have trouble taking care of your child, family member or friend?: No Do you have trouble with day-to-day activities such as bathing, preparing meals, shopping, managing finances, etc.?: No Are you currently unemployed and looking for a job?: Yes Are you interested in more education?: No Please select the resources that you would like help with: None Currently or been in a relationship where the following occur: No concerns reported THRIVE Score: 0 BRIANNA-7 AMB Questionnaire BRIANNA-7 Date BRIANNA - 7 assessed: 06/24/24 Source: Developed by Drs. oJey Day, Martine Olea, Felipe Robles and colleagues, with an educational marium from [employer]. Physical exam (Primary Care) Vital Signs: Last Vital Signs Temp 98.3 F 05/03/25 08:24 Pulse 69 05/03/25 08:24 Resp 16 05/03/25 08:24 BP 110/60 05/03/25 08:24 Pulse Ox 99 05/03/25 08:24 Oxygen Delivery Method Room Air 05/03/25 08:24 BMI result Body Mass Index 32.2 Tobacco/Smoking Status: Tobacco use Status Tobacco use date assessed 05/03/25 05/03/25 08:28 Patient Tobacco Use Status Never used Tobacco 05/03/25 08:24 e-Cigarette/Vaping Use Never Used 05/03/25 08:24 Thrive Assessment: Date of Thrive Assessment Date Thrive assessed 06/24/24 05/03/25 08:18 Currently or been in a relationship where the following occur: No concerns reported Results AMB Hemoglobin A1c AMB Hemoglobin A1c 6.8 % Last Edit by Kassandra Martinez CMA on 05/03/25 08:29 Results Reviewed Results Reviewed: Laboratory Last Values Hgb A1c (Clinic) 6.8 % (4.0-6.0) H 05/03/25 08:28 Coding Level of Care Code Est Pt Level 4 (51171) Diagnoses Type 2 diabetes mellitus with diabetic nephropathy, with long-term current use of insulin E11.21; Z79.4 Diabetes mellitus type: type 2 Renovascular hypertension I15.0 Hypertension type: renovascular hypertension Osteomyelitis of right foot M86.9 Neck muscle strain S16.1XXA Assessment & Plan Assessment & Plan (1) Diabetes mellitus with diabetic nephropathy, with long-term current use of insulin: Code(s): E11.21 - Type 2 diabetes mellitus with diabetic nephropathy; Z79.4 - 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 Goal is less than 7.0% Controlled Continue current medication regimen and work on diabetic diet Encouraged exercise and weight loss (2) HTN (hypertension): Code(s): I10 - Essential (primary) hypertension Category: Medical Qualifiers: Hypertension type: renovascular hypertension Qualified Code(s): I15.0 - Renovascular hypertension Plan: Blood pressure 110/60 on amlodipine. Goal is less than 140/90 Good control Continue current medication (3) Osteomyelitis of right foot: Code(s): M86.9 - Osteomyelitis, unspecified Category: Medical Plan: Now about 1 month s/p IV antibiotics. Wound is closed. Continue monitoring and watch for signs/symptoms of infection Follow-up with wound care. (4) Neck muscle strain: Code(s): S16.1XXA - Strain of muscle, fascia and tendon at neck level, initial encounter Category: Medical Plan: Ibuprofen and will send a script for cyclobenzaprine Stretching exercises demonstrated Orders: Orders AMB Hemoglobin A1c Today E11.21 - Type 2 diabetes mellitus with diabetic nephropathy, Z79.4 - senior living (current) use of insulin Medications: New cyclobenzaprine 10 mg PO TID PRN 30 tabs 0RF muscle spasm 10 days Changed From insulin aspart U-100 (Novolog FlexPen U-100 Insulin aspart) 4 units subcut TIDAC To insulin aspart U-100 (Novolog FlexPen U-100 Insulin aspart) 4 units (0.04 mL) subcut TIDAC 6 mL 3RF 30 days
[2025-05-03 08:24] VITALS: BP 110/60; PULSE 69; RESP 16; TEMP 36.8; O2SAT 99; BMI 32.2
--- OUTSIDE RECORDS SUMMARY | 2025-05-03 15:34 | XMS_ITS | Clinical Summary ---
Author Organization [facility] Address [address] [place] [address] Care Team Providers Care Solid Plasterer Name Role Phone Lianne Manuel MD Primary [...] Risk Dialysis 4-dose series) 1991 Colonoscopy 2016 RSV Vaccine 50 years and old er and Patients (1 - Risk 50-74 years 1-dose series) 2021 Zoster (Shingles) Vaccine (1 of 2) 2021 Influenza Vaccine 01/13/2025 02/29/2016, 02/29/2016 COVID-19 Vaccine ( season) 02/13/202501/2021, 08/25/2020 Insurance [facility] MEDIC[facility] OUT OF NETWORK * Guarantor: [employer] Account Type Relation to Patient Date of Phone Billing Address Client/Submitter Employer Care Teams Solid Plasterer Relationship Specialty Start Date End Date Lianne Manuel MD [address] [place] [address] PCP - General Internal Medicine 07/10/22
--- OUTSIDE RECORDS SUMMARY | 2025-05-03 15:34 | XMS_ITS | Clinical Summary ---
Author Organization [facility] Address [address] [facility] [address] [place] [phone] Phone Care Team Providers Care Process Controller Name Role Phone Geovanni Pink MD Primary [...] topic Medical Devices Not on file Insurance [facility] ONE CARE MEDICARE REPLACEMENT [facility] MEDICARE REPLACEMENT [facility] MEDICARE REPLACEMENT [facility] MEDICARE REPLACEMENT [facility] CARE MEDICARE REPLACEMENT [facility] MEDICARE REPLACEMENT Care Teams Process Controller Relationship Specialty Start Date End Date Geovanni Pink MD PCP - General Family Medicine 11/02/23 Additional Source Comments The information contained in this document represents components of the legal health record. It is not the complete legal health record.[facility]
--- OUTSIDE RECORDS SUMMARY | 2025-05-03 15:34 | XMS_ITS | Patient Health Record ---
Author Organization [facility] Address [address] [facility] [place] [address] Care Team Providers Care Ballistic Expert Name Role Phone Geovanni Pink MD Primary Care Provider Mary Canela Unavailable [phone] Allergies No Known Allergies Results Component Value [...] Polyneuropathy due to diabetes mellitus type I (411909117) Type 1 diabetes mellitus with diabetic polyneuropathy (E10.42) Active confirmed Problem Bilateral atherosclerosis of arteries of lower limbs (0456459374172656 7) Atherosclerosis of artery of both lower extremities (I70.203) Active confirmed Problem Acute osteomyelitis of right foot (9830513996263322 ) Acute osteomyelitis of right foot (M86.171) Active confirmed Possible Vital Signs Blood pressure diastolic 60 mm Hg 01/20/2025 Height 5ft9in in 01/20/2025 Blood pressure systolic 128 mm Hg 01/20/2025 Weight 212 lbs 01/20/2025 BMI 31.3 kg/m2 01/20/2025 Encounters Encounter Location Date Provider Diagnosis [address] [address] 05/04/2024 Mary Rea Type 2 diabetes mellitus with diabetic polyneuropathy E11.42 ; Contracture of toe of left foot M20.5X2 ; Tinea unguium B35.1 and Neuropathic ulcer of left foot, limited to breakdown of skin L97.[address] [address] 07/15/2024 Mary Rea Type 2 diabetes mellitus with diabetic polyneuropathy E11.42 ; Contracture of toe of left foot M20.5X2 and Tinea unguium B35.[address] [address] 08/26/2024 Mary Rea Neurotrophic ulcer o f left foot limited to breakdown of skin L97.521 ; Xerosis of skin L85.3 and Type 2 diabetes mellitus with diabetic polyneuropathy E11.[address] [address] 10/12/2024 Mary Rea Type 1 diabetes mellitus with diabetic polyneuropathy E10.42 ; Atherosclerosis of artery of both lower extremities I70.203 ; Tinea unguium B35.1 and Neurotrophic ulcer of left foot limited to breakdown of skin L97.[address] [address] 12/06/2024 Mary Rea Neuropathic ulcer of left foot with fat layer exposed L97.522 ; Cellulitis of toe of right foot L03.031 ; Type 2 diabetes mellitus with diabetic polyneuropathy E11.42 ; Abscess of right foot L02.611 and Other hammer toe(s) (acquired), right foot M20.[address] [address] 12/13/2024 Mary Rea Type 2 diabetes mellitus with diabetic polyneuropathy E11.42 ; Cellulitis of toe of right foot L03.031 and Neuropathic ulcer of right foot with fat layer exposed L97.[address] [address] 01/04/2025 Mary Rea Cellulitis of toe of [...] and Tinea pedis of both feet B35.[address] [address] 01/20/2025 Mary Rea Neuropathic ulcer of right foot with fat layer exposed L97.512 ; Acute osteomyelitis of right foot M86.171 ; Type 1 diabetes mellitus with diabetic polyneuropathy E10.42 and Atherosclerosis of artery of both lower extremities I70.[address] [address] 12/05/2024 Mary Rea [address] [address] 12/06/2024 Mary Rea [address] [address] 01/04/2025 Mary Rea [facility] [address] [place] [address] 01/04/2025 Mary Perica [facility] [address] [place] [address] 01/20/2025 Mary Perica [facility] [address] [place] [address] 01/20/2025 Mary Perica [facility] [address] [place] [address] 01/20/2025 Mary Perica [facility] [address] [place] [address] 02/24/2025 Mary Rea Assessments Encounter Date Diagnosis (ICD [...] B35.1) 05/04/2024 Tinea unguium (ICD-10 - B35.1) 05/04/2024 [...] X ray : Foot, right 3V 01/20/2025 03855-NQPJQXF NAIL, 6 OR MORE 09/16/2021 49525-PZKWCHR SKIN/TISSUE 10/25/2021 83931-IZPOJSD SKIN/TISSUE 12/04/2022 36600-XCDFERH SKIN/TISSUE 12/11/2022 52173-BBJJDVM SKIN/TISSUE 09/16/2021 73230-FMLPTSR SKIN/TISSUE 2020 38776-IXQXEUV SKIN/TISSUE 02/11/2024 70171-DLYI SKIN LESIONS, OVER 4 09/17/19 99141-MPDH SKIN LESIONS, OVER 4 11/28/19 23 96076-GOISKTTS OF HEMATOMA/FLUID 023 Next Appt Details Provider Name:Matias snowden, 05/08/2025 09:00:00 AM, [address] [place], [address], Provider Name:Mary vaughan, 07/06/2025 02:30:00 PM, [address] [place], [address], Insurance Providers Payer Name Payer Address Payer Phone Subscriber Number Group Number Insured Name Patient Relationship to Insured Coverage Start Date Coverage End Date [facility] SCO Claims [address] [place] [address] [id number] Raheem Castro Self - patient is the insured Medical (General) History Medical History History ICD Code Kidney disease type II diabetes Surgical History Surgery Date(Month/Year) kidney transplant 10/2016 L leg surgery 09/09/21 amputation, toe 01/2023 amputation , toe 04/2023 Toe amputation 10/14/23 hammertoe, right foot 02/2024 Hospitalization History Reason Date([place] [facility] [place]23 [facility] 01/2023
--- OUTSIDE RECORDS SUMMARY | 2025-05-03 15:34 | XMS_ITS | Clinical Summary ---
Author Organization [facility] Address [address] [facility] [address] [place] [address] Phone Care Team Providers Care Supervisor Keymodule Assembly Name Role Phone Geovanni Pink MD Primary Care Provider [phone]- [phone] Allergies No known active allergies Medications amLODIPine [...] 3 Active Eliquis 5 MG tabletIndication s:Other correction current drug therapy Take 1 tablet (5 [...] ankle and/or foot 11/20/2021 12/11/2021 Atherosclerosis of [place] ar teries of the extremities 11/20/2021 12/11/2021 [...] control for adults with diabetes: <7.0 09/21/2023 1:0 0 PM EDT 09/21/2023 Narrative [facility] - 09/24/2023 5:06 PM EDT Performed at: 01 - [facility] [address] [id number] Food Writer: Debora Brian MD, Phone: [phone] Skyler Banda MD LAB BLOOD ORDERABLES Final Resu lt [facility] from Last 3 Months or Most Recently Relevant to Health Maintenance Insurance [facility] ([id number] [facility] Care Teams Supervisor Keymodule Assembly Relationship Specialty Start Date End Date Geovanni Pink MD [address] [place] [address] PCP - General Family Medicine 04/23/23
== END 2025-05-03 09:04 | disposition home or self-care (01) ==
LOC: HO.HMCFM 08:07
PROVIDERS: PCP Family Medicine; Visit Provider Family Medicine
DX: E11.21 Type 2 diabetes mellitus with diabetic nephropathy (principal); Z79.4 Long term (current) use of insulin; I15.0 Renovascular hypertension; M86.9 Osteomyelitis, unspecified; S16.1XXA Strain of muscle, fascia and tendon at neck level, initial encounter

== ENCOUNTER → 2025-05-03 08:06 | Outpatient (BNVA) | payer OTHER, SELFPAY | PROVIDERS: PCP Family Medicine; Visit Provider Family Medicine | DX: E11.21 Type 2 diabetes mellitus with diabetic nephropathy (principal); I15.0 Renovascular hypertension; M86.9 Osteomyelitis, unspecified; S16.1XXA Strain of muscle, fascia and tendon at neck level, initial encounter; Z79.4 Long term (current) use of insulin | CPT/HCPCS: 83036; 99212 ==

== ENCOUNTER 2025-06-06 07:26 | Outpatient (REF) | payer OTHER, SELFPAY ==
--- OUTSIDE RECORDS SUMMARY | 2024-12-30 04:00 | XMS_ITS ---
Author Organization [facility] Address [address] [place] [address] Care Team Providers Care Grounds Keeper Name Role Phone Geovanni Pink MD Primary Care Provider Mary Canela [phone] Encounters Encounter Location Date Provider Diagnosis [facility] [address] [place] [address] 12/30/2024 Mary Rea Plan Of Treatment Next Appt Details Provider Name:Mary vaughan, 08/03/2025 09:30:00 AM, [address] [facility], [place], [address], Progress Notes * Raheem CASTRODOB:1970 ( 55 yo M)Acc No.[id number]:12/30/2024 Progress Note Patient: Alexander HUERTA Raheem Provider: Aquilino Rea DPM :1970 A ge:54 Y S ex:Male Date:12/30/2024 Address:[address] [place], [place] [address] Pcp:Geovanni Pink MD Subjective: * Chief Complaints: [...] 12/30/2024 Generated for Deedee huerta/Mike/Ric on: 1 08/07/2024 07:29 AM EST
--- OUTSIDE RECORDS SUMMARY | 2025-02-24 05:30 | XMS_ITS ---
Author Organization [facility] Address [address] [place] [address] Care Team Providers Care Teacher Advisor Name Role Phone Geovanni Pink MD Primary Care Provider Mary Canela [phone] Encounters Encounter Location Date Provider Diagnosis [facility] [address] [place] [address] 02/24/2025 Mary Rea Plan Of Treatment Next Appt Details Provider Name:Mary vaughan, 08/03/2025 09:30:00 AM, [address] [facility], [place], [address], Progress Notes * Raheem CASTRODOB:1970 ( 55 yo M)Acc No.[id number]:02/24/2025 Progress Notes Patient: Alexander HUERTA Raheem Provider: Aquilino Rea DPM :1970 A ge:54 Y S ex:Male Date:02/24/2025 Address:[address] [place] [address], [facility] [place] Pcp:Geovanni Pink MD Subjective: * Chief Complaints: [...] 02/24/2025 Generated for Deedee huerta/Mike/Ric on: 1 08/07/2024 07:29 AM EST
--- OUTSIDE RECORDS SUMMARY | 2025-06-02 07:00 | XMS_ITS ---
Author Organization [facility] Address [address] [place] [address] Care Team Providers Care Pathology Tech Name Role Phone Geovanni Pink MD Primary Care Provider Mary Canela Unavailable [phone] REASON FOR VISIT rx diab shoes Medications Medication SIG (Take, Route, Frequency, Duration) Notes Start Date End Date Status Extra Depth Diabetic Shoes with 3 Pair Custom heat-molded multi-density innersoles for 1 year Dx: Active Encounters Encounter Location Date Provider Diagnosis [facility] [address] [place] [address] 06/02/2025 Mary Rea Type 1 diabetes mellitus with diabetic polyneuropathy E10.42 Assessments Encounter Date Diagnosis (ICD Code) Assessment Notes Treatment Notes Treatment Clinical Notes Section Notes 06/02/2025 Type 1 diabetes mellitus with diabetic polyneuropathy (ICD-10 - E10.42) Plan Of Treatment Medication Medication Name Sig Start Date Stop Date Notes Extra Depth Diabetic Shoes w ith 3 Pair Custom heat-molded multi-density innersoles for 1 year Dx: Next Appt Details Provider Name:Mary vaughan, 08/03/2025 09:30:00 AM, [address] [facility], [place], [address], Progress Notes * Raheem CASTRODOB:1970 ( 55 yo M)Acc No.[id number]:06/02/2025 Patient: Raheem HUITRON :1970 A ge:55 Y S ex:Male Address:[address] [place] [address], [place], [address] * Refills Refill Extra Depth Diabetic Shoes with 3 Pair Custom heat-molded multi-density innersoles, 1 pair shoes/3 sets inserts, for 1 year, Dx:, Refills=0 Subjective: * Chief Complaints: * R x diab shoes * Medical History: * Surgical History: * Hospitalization/Major Diagno stic Procedure: * Medications: Objective: * Vitals: * Physical Examination: Assessment: * Assessment: 1. T ype 1 diabetes mellitus with diabetic polyneuropathy - E10.42 (Primary) Plan: * Treatment: * Procedure Codes: * true * Date: Generated for Deedee huerta/Mike/Ric on: 08/07/2024 07:29 AM EST
--- OUTSIDE RECORDS SUMMARY | 2025-06-06 07:29 | XMS_ITS | Patient Health Record ---
Author Organization [facility] Address [address] [facility] [place] [address] Care Team Providers Care Instructor Watch Assembly Name Role Phone Geovanni Pink MD Primary Care Provider Mary Canela Unavailable [phone] Matias Dobson Unavailable [phone] Allergies No Known Allergies Results Component Value Reference Range Notes HEMOGLOBIN A1C (GLYCOHEMOGLO BIN) Reviewed date:10/12/2024 09:18:31 AM Interpretation: Performing Lab: Notes/Report: HEMOGLOBIN A1C % (HH) 6.3 HEMOGLOBIN A1C (GLYCOHEMOGLO BIN) Reviewed date:05/08/2025 08:47:33 AM Interpretation: Performing Lab: Notes/Report: HEMOGLOBIN A1C % (HH) 6.0 Reason For Referral No Information Medications Medication SIG (Take, Route, Frequency, Duration) Notes Start Date End Date Status Lantus Active Cephalexin 500 MG 1 capsule Orally Twi ce a day; Duration: 7 days 04/17/2023 Not-Taki ng amLODIPine Besylate Once a day Active Cipro 500 MG 1 tablet Orally ever y 12 hrs; Duration: 7 days 04/16/2023 Not-Taking Extra Depth Orthopedic Shoes (1 Pair) with Customized Heat Molded Multidensity Innersoles (3 Pair) as directed Dx: IDDM/Polyneuropathy (E10.42), Hammertoe Foot Deformity (M20.41,M20.42), Preulcerative Skin Lesion(s) (L85.1) Not-Taking Mycophenolic Acid 3 tabs Twice day Active [...] day; Duration: 14 days 14 adys Not-Taking Rayaldee 30 MCG 1 capsule at bedtime Orally Once a day; Duration: 30 day(s) Active Amoxicillin-Pot Clavulanate 875 875-125 MG one tab Orally every 12 hrs; Duration: 10 day(s) 12/04/2022 Not-Taking Mupirocin 2 % 1 application to ope n wound Externally Twice a day; Duration: 30 days 12/06/2024 Active Bactrim DS 800-160 MG 1 tablet Orally ev rad 12 hrs; Duration: 10 day(s) 12/06/2024 Active Farxiga 10 MG TAKE 1 TABLET BY JONATHON EVERY DAY IN THE MORNING FOR 90 DAYS Oral; Duration: 90 Days Active Rosuvastatin Calcium 10 MG Oral; Duration: 90 Days Acti ve Extra Depth Diabetic Shoes with 3 Pair Custom heat-molded multi-density innersoles for 1 year Dx: Active Doxycycline Monohydrate 100 MG 1 capsule Orally Twice a day; Duration: 14 days 01/20/2025 Active Ketoconazole 2 % 1 application Apply a thin layer of cream externally Twice a day to scaling areas on feet including between the toes; Duration: 30 days 01/04/2025 Active Doxycycline Monohydrate 100 MG 1 capsule Orally Once a day; Duration: 5 days 01/04/2025 Active Losartan Potassium 28 untis Once a day Not-Taking metFORMIN HCl Not-Ta [place] Farxiga 10 MG Oral; Duration: 90 Days Not-Taking Farxiga 5 MG 1 tablet Orally Once a day Not-Taking Antibiotic Chest Not-Takin g Aspir-81 once a day Not-Takin g Tacrolimus 4tabs Twice a day N ot-Taking Immunizations Vaccine Route Administration Date Status Comme nts Influenza Unknown 2020 Refused Influenza Unknown 09/15/2023 Refused Influenza Unknown 05/08/2025 Refused Social History Tobacco Use: Social History Observation Description Date Details (start date - stop date) Never Smoker NA - NA Tobacco use other than smoking: Question Answer Notes Are you an other tobacco user? No Tobacco Control (Standard) Question Answer Notes Tobacco use: Nonsmoker Additional Findings: Tobacco non-user Current no nsmoker AUDIT-C (Standard) Question Answer Notes Did you have a drink containing alcohol in the p ast year? No Points 0 Interpretation Negative Problems Problem Type SNOMED Code ICD Code Onset Dates Problem Status W/U Status Risk Notes Problem Polyneuropathy due to diabetes mellitus type I (725163111) Type 1 diabetes mellitus with diabetic polyneuropathy (E10.42) Active confirmed Vital Signs Blood pressure diastolic 60 mm Hg 05/08/2025 Height 5ft 9in in 05/08/2025 Blood pressure systolic 128 mm Hg 05/08/2025 Weight 212 lbs 05/08/2025 BMI 31.3 kg/m2 05/08/2025 Procedures Procedure Date Ordered Date Performed Result Body Sit e 03837-GBRYAXI NAIL, 6 OR MORE 05/08/2025 N/A 49048-ESFT SKIN LESIONS, OVER 4 05/08/2025 N/A Encounters Encounter Location Date Provider Diagnosis [address] [address] 07/15/2024 Mary Rea Type 2 diabetes mellitus with diabetic polyneuropathy E11.42 ; Contracture of toe of left foot M20.5X2 and Tinea unguium B35.[address] [address] 08/26/2024 Mary Rea Neurotrophic ulcer o f left foot limited to breakdown of skin L97.521 ; Xerosis of skin L85.3 and Type 2 diabetes mellitus with diabetic polyneuropathy E11.[address] [address] 10/12/2024 Mary Rea Type 1 diabetes mellitus with diabetic polyneuropathy E10.42 ; Atherosclerosis of artery of both lower extremities I70.203 ; Tinea unguium B35.1 and Neurotrophic ulcer of left foot limited to breakdown of skin L97.[address] [address] 12/06/2024 Mary Rea Neuropathic ulcer of left foot with fat layer exposed L97.522 ; Cellulitis of toe of right foot L03.031 ; Type 2 diabetes mellitus with diabetic polyneuropathy E11.42 ; Abscess of right foot L02.611 and Other hammer toe(s) (acquired), right foot M20.[address] [address] 12/13/2024 Mary Rea Type 2 diabetes mellitus with diabetic polyneuropathy E11.42 ; Cellulitis of toe of right foot L03.031 and Neuropathic ulcer of right foot with fat layer exposed L97.[address] [address] 01/04/2025 Mary Rea Cellulitis of toe of [...] and Tinea pedis of both feet B35.[address] [address] 01/20/2025 Mary Rea Neuropathic ulcer of right foot with fat layer exposed L97.512 ; Acute osteomyelitis of right foot M86.171 ; Type 1 diabetes mellitus with diabetic polyneuropathy E10.42 and Atherosclerosis of artery of both lower extremities I70.[address] [address] 05/08/2025 Matias Dobson Type 1 diabetes mellitus with diabetic polyneuropathy E10.42 ; Tinea unguium B35.1 ; Ischemic ulcer of right foot with fat layer exposed L97.512 and Atherosclerosis of artery of both lower extremities I70.[address] [address] 12/05/2024 Mary Rea [address] [address] 12/06/2024 Mary Rea [facility] [address] [facility] [address] 01/04/2025 Mary Perica [facility] [address] [facility] [address] 01/04/2025 Mary Perica [facility] [address] [facility] [address] 01/20/2025 Mary Perica [facility] [address] [facility] [address] 01/20/2025 Mary Perica [facility] [address] [facility] [address] 01/20/2025 Mary Perica [facility] [address] [facility] [address] 02/24/2025 Mary Perica [facility] [address] [address] 06/02/2025 Mary Rea Type 1 diabetes mellitus [...] toe of right foot (ICD-10 - L03.031) 01/20/2025 Neuropathic ulcer of right foot with fat layer exposed (ICD-10 - L97.512) Response to treatment Worse Patient Educated with: WOUND CARE INSTRUCTIONS. pdf (WOUND CARE INSTRUCTIONS. pdf) 01/20/2025 Acute osteomyelitis of right foot (ICD-10 - M86.171) Possible 05/08/2025 Type 1 diabetes mellitus with diabetic polyneuropathy (ICD-10 - E10.42) 05/08/2025 Tinea unguium (ICD-10 - B35.1) 01/04/2025 Neuropathic ulcer of right foot with fat layer exposed (ICD-10 - L97.512) Patient Educated with: WOUND CARE INSTRUCTIONS. pdf (WOUND CARE INSTRUCTIONS. pdf) 06/02/2025 Type 1 diabetes mellitus with diabetic polyneuropathy (ICD-10 - E10.42) 05/08/2025 Ischemic ulcer of right foot with fat layer exposed (ICD-10 - L97.512) 01/20/2025 Type 1 diabetes mellitus with diabetic [...] L85.3) 07/15/2024 Tinea unguium (ICD-10 - B35.1) 08/26/2024 Type 2 diabetes mellitus with diabetic polyneuropathy (ICD-10 - E11.42) 12/06/2024 Type 2 diabetes mellitus with diabetic polyneuropathy (ICD-10 - E11.42) 10/12/2024 Neurotrophic ulcer of left foot limited to breakdown of skin (ICD-10 - L97.521) 01/20/2025 Atherosclerosis of artery of both lower extremities (ICD-10 - I70.203) 05/08/2025 Atherosclerosis of artery of both lower extremities [...] pedis of both feet (ICD-10 - B35.3) 12/06/2024 Other Plan Of Treatment Pending Test [...] X ray : Foot, right 3V 01/20/2025 67815-EILJCNE NAIL, 6 OR MORE 09/16/2021 81954-HMBEAJJ NAIL, 6 OR MORE 05/08/2025 98987-XVDBWTM SKIN/TISSUE 10/25/2021 86447-POPJEDQ SKIN/TISSUE 12/04/2022 15010-HNACWMS SKIN/TISSUE 12/11/2022 78813-EJMOAES SKIN/TISSUE 09/16/2021 46958-RLTGGBL SKIN/TISSUE 2020 66636-JNWLDZH SKIN/TISSUE 02/11/2024 76283-OJCX SKIN LESIONS, OVER 4 05/08/20 25 01428-HCCB SKIN LESIONS, OVER 4 09/17/19 22 38830-WETE SKIN LESIONS, OVER 4 11/28/19 23 35400-KUNCKCAE OF HEMATOMA/FLUID 023 Next Appt Details Provider Name:Mary vaughan, 08/03/2025 09:30:00 AM, [address], [place], [address], Insurance Providers Payer Name Payer Address Payer Phone Subscriber Number Group Number Insured Name Patient Relationship to Insured Coverage Start Date Coverage End Date [facility] SCO Claims [address] [place] [address] [id number] Raheem Castro Self - patient is the insured Medical (General) History Medical History History ICD Code Kidney disease type II diabetes Surgical History Surgery Date(Month/Year) kidney transplant 10/2016 L leg surgery 09/09/21 amputation, toe 01/2023 amputation , toe 04/2023 Toe amputation 10/14/23 hammertoe, right foot 02/2024 Hospitalization History Reason Date(Month/Year) [facility] [place]- Infection in bone of toe [facility]- [facility] 04/2023 [facility] [place] - Cut of piece of toe 01/2023
--- OUTSIDE RECORDS SUMMARY | 2025-06-06 07:29 | XMS_ITS | Clinical Summary ---
Author Organization [facility] Address [address] [place] [address] Care Team Providers Care Geospatial Developer Name Role Phone Lianne Manuel MD [...] COVID-19 Vaccine ( season) 02/13/202501/2021, 08/25/2020 Insurance [facility] MEDICARE OUT OF NETWORK * Guarantor: [employer]RAUD [employer] Account Type Relation to Patient Date of Phone Billing Address Client/Submitter Employer Care Teams Geospatial Developer Relationship Specialty Start Date End Date Lianne Manuel MD [address] [place] [address] PCP - General Internal Medicine 07/10/22
--- OUTSIDE RECORDS SUMMARY | 2025-06-06 07:29 | XMS_ITS | Clinical Summary ---
Author Organization Patient Business Ser [facility] Address [address] [place] [address] Care Team Providers Care Pr Internship Name Role Phone Lianne Manuel MD Primary [...] Depression Screening 06/15/2024 COVID-19 Vaccine ( - 2024-2 6 season) 2025 Influenza Vaccine (#1) 2025 RSV [...] age to complete this topic Care Teams Pr Internship Relationship Specialty Start Date End Date Lianne Manuel MD [address] [place] [address] PCP - General Internal Medicine 01/30/22
--- OUTSIDE RECORDS SUMMARY | 2025-06-06 07:29 | XMS_ITS | Clinical Summary ---
Author Organization [facility] Address [address] [facility] [address] [place] [address] Phone Care Team Providers Care Rn Primary Care Name Role Phone Geovanni Pink MD Primary [...] topic Medical Devices Not on file Insurance [facility] ONE CARE MEDICARE REPLACEMENT [facility] MEDICARE REPLACEMENT [facility] MEDICARE REPLACEMENT [facility] MEDICARE REPLACEMENT [facility] CARE MEDICARE REPLACEMENT [facility] MEDICARE REPLACEMENT Care Teams Rn Primary Care Relationship Specialty Start Date End Date Geovanni Pink MD PCP - General Family Medicine 11/02/23 Additional Source Comments The information contained in this document represents components of the legal health record. It is not the complete legal health record.[facility]
--- OUTSIDE RECORDS SUMMARY | 2025-06-06 07:29 | XMS_ITS | Clinical Summary ---
Author Organization [facility] Address [address] [facility] [address] [place] [address] Phone Care Team Providers Care Rn Pool Name Role Phone Geovanni Pink MD Primary Care Provider +1- [phone] Allergies No known active allergies Medications amLODIPine [...] 3 Active Eliquis 5 MG tabletIndication s:Other half-way current drug therapy Take 1 tablet (5 [...] ankle and/or foot 11/20/2021 12/11/2021 Atherosclerosis of [place] ar teries of the extremities 11/20/2021 [...] PM EDT Performed at: 01 - [facility] [address] [id number] Automotive Parts Specialist: Debora Brian MD, Phone: [phone] Skyler Banda MD LAB BLOOD ORDERABLES Final Resu lt [facility] from Last 3 Months or Most Recently Relevant to Health Maintenance Insurance [facility] ([id number] [facility] Care Teams Rn Pool Relationship Specialty Start Date End Date Geovanni Pink MD [address] [place] [id number] PCP - General Family Medicine 04/23/23
[2025-06-06 07:51] LABS: MANUAL DIFF FLAG NO
[2025-06-06 08:34] LABS: Hematocrit 47.1 % (42.0-52.0); Hemoglobin 15.2 g/dl (14.0-18.0); Imm Gran Abs Auto 0.23 X10*3/uL (0.00-0.03); Imm Gran Pct Auto 2.5 % (0.0-0.4); Lymphocytes Absolute Auto 2.4 X10*3/uL (1.2-4.9); Mean Corpuscular HGB Conc 32.3 g/dl (31.0-36.0); Mean Corpuscular Hemoglobin 28.0 pg (27.0-33.0); Mean Corpuscular Volume 86.7 fL (80.0-98.0); NRBC Abs Auto 0.000 X10*3/uL (0.0-0.012); NRBC Pct Auto 0.0 /100WBC (0.0-0.2); Platelet Count 191 X10*3/uL (160-400); Red Blood Count 5.43 X10*6/uL (4.60-5.80); White Blood Count 9.1 X10*3/uL (4.8-10.8)
[2025-06-06 09:02] LABS: Alanine Aminotransferase 10 U/L (0-40); Anion Gap 13 (12-20); Aspartate Amino Transferase 19 U/L (5-37); Blood Urea Nitrogen 15 mg/dL (9-16); Calcium 9.1 mg/dL (8.4-10.2); Carbon Dioxide 26 mmol/L (22-29); Chloride 109 mmol/L (96-108); Estimated Glomerular Filt Rate 41; Magnesium 2.2 mg/dL (1.6-2.6); Potassium 3.4 mmol/L (3.3-5.1); Sodium 145 mmol/L (135-145)
[2025-06-06 09:07] LABS: Parathyroid Hormone Intact 149.5 pg/mL (8.7-77.1)
== END 2025-06-06 07:27 | disposition home or self-care (01) ==
LOC: HO.LAB 07:26
PROVIDERS: PCP Family Medicine; Visit Provider Internal Medicine Nephrology
DX: Z13.1 Encounter for screening for diabetes mellitus (principal); Z13.21 Encounter for screening for nutritional disorder; Z94.0 Kidney transplant status
CPT/HCPCS: 36415; 80051; 80169; 82306; 82310; 82565; 83036; 83735; 83970; 84100; 84450; 84460; 84520; 85025

== ENCOUNTER 2025-06-09 11:09 | Outpatient (AMB) | payer OTHER, SELFPAY ==
--- OUTSIDE RECORDS SUMMARY | 2024-12-30 04:00 | XMS_ITS ---
Author Organization [facility] Address [address] [place] [address] Care Team Providers Care Aerial Crop Duster Name Role Phone Geovanni Pink MD Primary Care Provider Mary Canela [phone] Encounters Encounter Location Date Provider Diagnosis [facility] [address] [place] [address] 12/30/2024 Mary Rea Plan Of Treatment Next Appt Details Provider Name:Mary vaughan, 08/03/2025 09:30:00 AM, [address] [facility], [place], [address], Progress Notes * Raheem CASTRODOB:1970 ( 55 yo M)Acc No.[id number]:12/30/2024 Progress Note Patient: Alexander HUERTA Raheem Provider: Aquilino Rea DPM :1970 A ge:54 Y S ex:Male Date:12/30/2024 Address:[address] [place], [place] [address], [place] Pcp:Goevanni Pink MD Subjective: * Chief Complaints: * * Medical History: Objective: * Vitals: Assessment: Plan: * Treatment: * Images: * The named appointment provid er may or may not be the originator of this progress note, and it is not deemed complete until electronically signed by the appointment provider. Sign off status: Pending * Provider: Aquilino Rea DPM Date: 0 12/30/2024 Generated for Deedee huerta/Mike/Ric on: 1 08/10/2024 11:12 AM EST
--- OUTSIDE RECORDS SUMMARY | 2025-02-24 05:30 | XMS_ITS ---
Author Organization [facility] Address [address] [place] [address] Care Team Providers Care Primary Care Md Name Role Phone Geovanni Pink MD Primary Care Provider Mary Canela [phone] Encounters Encounter Location Date Provider Diagnosis [facility] [address] [place] [address] 02/24/2025 Mary Rea Plan Of Treatment Next Appt Details Provider Name:Mary vaughan, 08/03/2025 09:30:00 AM, [address] [facility], [place], [address], Progress Notes * Raheem CASTRODOB:1970 ( 55 yo M)Acc No.[id number]:02/24/2025 Progress Notes Patient: Alexander HUERTA Raheem Provider: Aquilino Rea DPM :1970 A ge:54 Y S ex:Male Date:02/24/2025 Address:[address] [place] [address], [facility] Pcp:Geovanni Pink MD Subjective: * Chief Complaints: [...] DPM Date: 0 02/24/2025 Generated for Deedee huerta/Mike/Ric on: 1 08/10/2024 11:13 AM EST
--- OUTSIDE RECORDS SUMMARY | 2025-06-09 11:13 | XMS_ITS | Clinical Summary ---
Author Organization [facility] Address [address] [facility] [address] [place] [address] Phone Care Team Providers Care M1A1 Tank Crewman Name Role Phone Geovanni Pink MD Primary [...] topic Medical Devices Not on file Insurance [facility] ONE CARE MEDICARE REPLACEMENT [facility] MEDICARE REPLACEMENT [facility] MEDICARE REPLACEMENT [facility] MEDICARE REPLACEMENT [facility] CARE MEDICARE REPLACEMENT [facility] MEDICARE REPLACEMENT Care Teams M1A1 Tank Crewman Relationship Specialty Start Date End Date Geovanni Pink MD PCP - General Family Medicine 11/02/23 Additional Source Comments The information contained in this document represents components of the legal health record. It is not the complete legal health record.[facility]
--- OUTSIDE RECORDS SUMMARY | 2025-06-09 11:13 | XMS_ITS | Clinical Summary ---
Author Organization [facility] Address [address] [facility] [address] [place] [address] Phone Care Team Providers Care Profile Trimmer Name Role Phone Geovanni Pink MD Primary Care Provider +1- [phone] Allergies No known active allergies Medications amLODIPine [...] 3 Active Eliquis 5 MG tabletIndication s:Other senior living current drug therapy Take 1 tablet (5 [...] ankle and/or foot 11/20/2021 12/11/2021 Atherosclerosis of [place] ar teries of the extremities 11/20/2021 12/11/2021 [...] PM EDT Performed at: 01 - [facility] [address] [id number] Textile Colorist Dyer: Debora Brian MD, Phone: [phone] Skyler Banda MD LAB BLOOD ORDERABLES Final Resu lt [facility] from Last 3 Months or Most Recently Relevant to Health Maintenance Insurance [facility] ([id number] [facility] Care Teams Profile Trimmer Relationship Specialty Start Date End Date Geovanni Pink MD [address] [place] [id number] PCP - General Family Medicine 04/23/23
--- OUTSIDE RECORDS SUMMARY | 2025-06-09 11:13 | XMS_ITS | Clinical Summary ---
Author Organization Patient Business [facility] Address [address] [place] [address] Care Team Providers Care Data Communications Analyst Name Role Phone Lianne Maunel MD Primary Care Provider Social History Tobacco [...] age to complete this topic Care Teams Data Communications Analyst Relationship Specialty Start Date End Date Lianne Manuel MD [address] [place] [address] PCP - General Internal Medicine 01/30/22
--- OUTSIDE RECORDS SUMMARY | 2025-06-09 11:13 | XMS_ITS | Clinical Summary ---
Author Organization [facility] Address [address] [place] [address] Care Team Providers Care Fingerprint Classifier Name Role Phone Lianne Manuel MD Primary [...] COVID-19 Vaccine ( season) 02/13/202501/2021, 08/25/2020 [place] [facility] [place] * Guarantor: [employer] Account Type Relation to Patient Date of Phone Billing Address Client/Submitter Employer Care Teams Fingerprint Classifier Relationship Specialty Start Date End Date Lianne Manuel MD [address] [place] [address] PCP - General Internal Medicine 07/10/22
--- OUTSIDE RECORDS SUMMARY | 2025-06-09 11:13 | XMS_ITS | Patient Health Record ---
Author Organization [facility] Address [address] [facility] [place] [address] Care Team Providers Care Power Crane Operator Name Role Phone Geovanni Pink MD Primary Care Provider Mary Canela Unavailable [phone] Matias Dobson Unavailable [phone] Allergies No Known Allergies Results Component Value [...] Polyneuropathy due to diabetes mellitus type I (829843750) Type 1 diabetes mellitus with diabetic polyneuropathy (E10.42) Active confirmed Vital Signs Blood pressure diastolic 60 mm Hg 05/08/2025 Height 5ft 9in in 05/08/2025 Blood pressure systolic 128 mm Hg 05/08/2025 Weight 212 lbs 05/08/2025 BMI 31.3 kg/m2 05/08/2025 Procedures Procedure Date Ordered Date Performed Result Body Sit e 10255-CUDCPDP NAIL, 6 OR MORE 05/08/2025 N/A 75332-DOMT SKIN LESIONS, OVER 4 05/08/2025 N/A Encounters Encounter Location Date Provider Diagnosis [address] [address] 07/15/2024 Mary Rea Type 2 diabetes mellitus with diabetic polyneuropathy E11.42 ; Contracture of toe of left foot M20.5X2 and Tinea unguium B35.[address] [address] 08/26/2024 Mary Rea Neurotrophic ulcer o f left foot limited to breakdown of skin L97.521 ; Xerosis of skin L85.3 and Type 2 diabetes mellitus with diabetic polyneuropathy E11.[address] [address] 10/12/2024 Mary Rea Type 1 diabetes mellitus with diabetic polyneuropathy E10.42 ; Atherosclerosis of artery of both lower extremities I70.203 ; Tinea unguium B35.1 and Neurotrophic ulcer of left foot limited to breakdown of skin L97.[address] [address] 12/06/2024 Mary Rea Neuropathic ulcer of left foot with fat layer exposed L97.522 ; Cellulitis of toe of right foot L03.031 ; Type 2 diabetes mellitus with diabetic polyneuropathy E11.42 ; Abscess of right foot L02.611 and Other hammer toe(s) (acquired), right foot M20.[address] [address] 12/13/2024 Mary Rea Type 2 diabetes mellitus with diabetic polyneuropathy E11.42 ; Cellulitis of toe of right foot L03.031 and Neuropathic ulcer of right foot with fat layer exposed L97.[address] [address] 01/04/2025 Mary Rea Cellulitis of toe of [...] and Tinea pedis of both feet B35.[address] [address] 01/20/2025 Mary Rea Neuropathic ulcer of right foot with fat layer exposed L97.512 ; Acute osteomyelitis of right foot M86.171 ; Type 1 diabetes mellitus with diabetic polyneuropathy E10.42 and Atherosclerosis of artery of both lower extremities I70.[address] [address] 05/08/2025 Matias Dobson Type 1 diabetes mellitus with diabetic polyneuropathy E10.42 ; Tinea unguium B35.1 ; Ischemic ulcer of right foot with fat layer exposed L97.512 and Atherosclerosis of artery of both lower extremities I70.[address] [address] 12/05/2024 Mary Rea [address] [address] 12/06/2024 Mary Rea [facility] [place] [address] [place] [address] 01/04/2025 Mary [facility] [place] [address] [place] [address] 01/04/2025 Mary Perica [facility] [place] [address] [place] [address] 01/20/2025 Mary Perica [facility] [place] [address] [place] [address] 01/20/2025 Mary Perica [facility] [place] [address] [place] [address] 01/20/2025 Mary Perica [facility] [place] [address] [place] [address] 02/24/2025 Mary [facility] [address] [address] 06/02/2025 Mary Rea Type 1 diabetes mellitus [...] X ray : Foot, right 3V 01/20/2025 92583-YREJCVO NAIL, 6 OR MORE 09/16/2021 55881-KILXZZW NAIL, 6 OR MORE 05/08/2025 78340-LPCDUTT SKIN/TISSUE 10/25/2021 41446-KSYJYWQ SKIN/TISSUE 12/04/2022 56920-JEAMDIZ SKIN/TISSUE 12/11/2022 29776-BMOCSTK SKIN/TISSUE 09/16/2021 65707-HJKIAPG SKIN/TISSUE 2020 07811-PDVRSAT SKIN/TISSUE 02/11/2024 45569-CBZF SKIN LESIONS, OVER 4 05/08/20 25 85350-AJOB SKIN LESIONS, OVER 4 09/17/19 22 47864-CCAK SKIN LESIONS, OVER 4 11/28/19 23 80433-CYCOPKZK OF HEMATOMA/FLUID 023 Next Appt Details Provider Name:Mary vaughan, 08/03/2025 09:30:00 AM, [address], [place], [address], Insurance Providers Payer Name Payer Address Payer Phone Subscriber Number Group Number Insured Name Patient Relationship to Insured Coverage Start Date Coverage End Date [facility] [employer] Claims [address] [place] [id number] Raheem Castro Self - patient is the insured Medical (General) History Medical History History ICD Code Kidney disease type II diabetes Surgical History Surgery Date(Month/Year) kidney transplant 10/2016 L leg surgery 09/09/21 amputation, toe 01/2023 amputation , toe 04/2023 Toe amputation 10/14/23 hammertoe, right foot 02/2024 [place] [facility] [place]- [place] of [place] [facility] [facility] [place]
[2025-06-09 11:28] VITALS: BP 152/82; PULSE 73; O2SAT 98; BMI 32.0
--- NOTE | 2025-06-09 11:28 | HO.NEPHOV_ITS ---
Vital Signs 06/09/25 11:28 Height 5 ft 9 in Weight 217 lb BMI 32.0 BP 152/82 H Blood Pressure Location Lt brachial Position Sitting Pulse 73 Pulse Source Pulse Oximeter Pulse Oximetry (%) 98 Oxygen Delivery Method Room Air Intake Visit Reasons: 2 mo f/u w/ labs-Conf Advertising Specialist Required: No Accompanied by: Self / Same As Patient Allergies No Known Allergies Allergy (Verified 06/09/25 11:30) HPI Comments Details: Raheem Castro is 55 years with type 2 diabetes mellitus on insulin, chronic kidney disease s/p living donor renal transplant from who also has H/O treated seminoma post transplant. He had his hammer toe fixed on Sep by Dr Aydee Diaz in [facility]. He denied any chills, nausea, vomiting, dizziness or palpitations. He denied any cardiopulmonary, gastrointestinal or genitourinary symptoms. Renal function is around baseline. His blood sugar is fair. He currently has a wound on his right foot which is healing. His Roxana feels he is a bit depressed and wants mitrazapine which has helped him in the past. There were no new other active complaints at the time of this office visit [facility] Medical History (Updated 05/03/25 @ 09:03 by Geovanni Pink MD) CKD (chronic kidney disease) HTN (hypertension) PAD (peripheral artery disease) CKD (chronic kidney disease) stage 3, GFR 30-59 ml/min MSSA bacteremia Osteomyelitis of third toe of left foot S/P angiogram of extremity (10/08/22) Diabetic ulcer of right foot Osteomyelitis Wound of right foot Chronic right shoulder pain Multinodular goiter Testicular cancer Bleeding internal hemorrhoids Seminoma Paresthesia and pain of extremity Type 2 diabetes mellitus with hyperglycemia, with long-term current use of insulin Type 2 diabetes mellitus with chronic kidney disease Hyperlipidemia Vaccination refused by patient Refused pneumococcal vaccination Anemia in stage 4 chronic kidney disease Acute proliferative glomerulonephritis Secondary hyperparathyroidism of renal origin Mixed dyslipidemia Peripheral vascular disease Carpal tunnel syndrome on left Diabetes mellitus with diabetic nephropathy, with long-term current use of insulin Osteomyelitis of left foot Diabetes mellitus with foot ulcer End-stage renal disease on hemodialysis Surgical History Kidney transplant recipient Renal transplant recipient History of amputation (01/19/23) Amputated toe of right foot (10/13/22) History of kidney transplant Family History Father Unknown family medical history Mother Diabetes mellitus HTN (hypertension) CVD (cardiovascular disease) History of CVA (cerebrovascular accident) Stroke Sister Diabetes mellitus Daughter No problems noted. Sister No problems noted. Sister No problems noted. Social History Household Members: Spouse and Children Housing: House Do you presently have visiting nurse or other home services: No Alcohol intake: never Patient Tobacco Use Status: Never used Tobacco e-Cigarette/Vaping Use: Never Used Second Hand Smoke Exposure: No Advance Directives Date on File: 01/16/23 service: No Current occupational status: disabled Current occupation: disability - kidney transplant. Left side dominant Current occupational exposures/hazards: No Cognitive needs: No Hearing needs: No Vision needs: No Review of Systems Const All systems reviewed & are unremarkable except as noted in HPI and below Physical Exam Vital Signs: Last Vital Signs Pulse 73 06/09/25 11:28 BP 152/82 H 06/09/25 11:28 Pulse Ox 98 06/09/25 11:28 Oxygen Delivery Method Room Air 06/09/25 11:28 BMI result Body Mass Index 32.0 Const General: comfortable and no acute distress Orientation/consciousness: patient oriented x3 HEENT Head: Yes normocephalic Mouth: Normal oral and palatal mucosa present Eyes EOM: EOMs intact bilaterally Neck Neck: Yes supple Resp Auscultation: clear to auscultation bilaterally Cardio Jugular venous distension: no JVD Rate: regular rate GI Palpation (GI): Soft to palpation Auscultation: normal bowel sounds General: Yes no CVA tenderness Back/Spine/Pelvis Back: no CVA tenderness Skin General skin exam: no rashes or lesions noted Neuro General: patient oriented x3 and moves all extremities Extrem General: Yes no pedal edema Results Reviewed Nephrology Results: Hgb, (14.0-18.0) 15.2 g/dl 06/06/25 WBC, (4.8-10.8) 9.1 X10*3/uL 06/06/25 Plt Count, (160-400) 191 X10*3/uL 06/06/25 Sodium, (135-145) 145 mmol/L 06/06/25 Potassium, (3.3-5.1) 3.4 mmol/L 06/06/25 Chloride, (96-108) 109 mmol/L H 06/06/25 Carbon Dioxide, (22-29) 26 mmol/L 06/06/25 BUN, (9-16) 15 mg/dL 06/06/25 Creatinine, (0.5-1.4) 1.75 mg/dL H 06/06/25 Calcium, (8.4-10.2) 9.1 mg/dL 06/06/25 Phosphorus, (2.7-4.5) 3.3 mg/dL 06/06/25 PTH Intact, (8.7-77.1) 149.5 pg/mL H 06/06/25 Assessment & Plan Assessment & Plan (1) Kidney transplant recipient: Comment: Cr close to baseline Code(s): Z94.0 - Kidney transplant status Category: Surgical (2) HTN (hypertension): Code(s): I10 - Essential (primary) hypertension Category: Medical Qualifiers: Hypertension type: renovascular hypertension Qualified Code(s): I15.0 - Renovascular hypertension Plan Transplant renal function had been at baseline Serum creatinine at baseline C/W current dose of MMF C/W Everolimus 1 mg AM and 2 mg PM Needs better BS control @ home No NSAID's and good hydration Started Mirtazapine 7.5 mg daily at night Already on SGLT 2 i; May need to increase Rayaldee soon C/W rest of current management for now Needs annual dermatology visit All questions answered Labs ordered; F/U given Orders: Orders Blood Urea Nitrogen 2 Months I15.0 - Renovascular hypertension, Z94.0 - Kidney transplant status Electrolytes 2 Months I15.0 - Renovascular hypertension, Z94.0 - Kidney transplant status Magnesium 2 Months I15.0 - Renovascular hypertension, Z94.0 - Kidney transplant status Alanine Aminotransferase 2 Months I15.0 - Renovascular hypertension, Z94.0 - Kidney transplant status TSH reflex Free T4 2 Months I15.0 - Renovascular hypertension, Z94.0 - Kidney transplant status Other Ref Test - Misc Today Z94.0 - Kidney transplant status Complete Blood Count Auto Diff 2 Months I15.0 - Renovascular hypertension, Z94.0 - Kidney transplant status Creatinine 2 Months I15.0 - Renovascular hypertension, Z94.0 - Kidney transplant status Calcium 2 Months I15.0 - Renovascular hypertension, Z94.0 - Kidney transplant status Phosphorus 2 Months I15.0 - Renovascular hypertension, Z94.0 - Kidney transplant status Aspartate Amino Transferase 2 Months I15.0 - Renovascular hypertension, Z94.0 - Kidney transplant status Medications: New mirtazapine 7.5 mg PO BEDTIME 30 tabs 3RF Coding Level of Care Code Est Pt Level 4 (35619) Diagnoses Kidney transplant recipient Z94.0 Renovascular hypertension I15.0 Hypertension type: renovascular hypertension
== END 2025-06-09 12:02 | disposition home or self-care (01) ==
LOC: HO.HKA 11:10
PROVIDERS: PCP Family Medicine; Visit Provider Internal Medicine Nephrology
DX: Z94.0 Kidney transplant status (principal); I15.0 Renovascular hypertension
CPT/HCPCS: 99214

== ENCOUNTER → 2025-06-09 11:09 | Outpatient (BNVA) | payer OTHER, SELFPAY | PROVIDERS: PCP Family Medicine; Visit Provider Internal Medicine Nephrology | DX: I15.0 Renovascular hypertension (principal); N18.30 Chronic kidney disease, stage 3 unspecified; Z79.899 Other long term (current) drug therapy; Z94.0 Kidney transplant status | CPT/HCPCS: 99212 ==